=== PATIENT | male | born 1960 | race Caucasian/White ===

== ENCOUNTER 2017-12-22 11:28 | Outpatient (RCR) | payer SELFPAY | END 2017-12-23 23:59 | disposition home or self-care (01) | LOC: CR 11:28 | PROVIDERS: PCP Internal Medicine; Visit Provider Family Medicine | DX: Z51.89 Encounter for other specified aftercare (principal) ==

== ENCOUNTER 2018-01-12 13:26 | Outpatient (RCR) | payer SELFPAY | END 2018-01-22 23:59 | disposition home or self-care (01) | LOC: CR 13:26 | PROVIDERS: PCP Internal Medicine; Visit Provider Family Medicine | DX: Z95.1 Presence of aortocoronary bypass graft (principal); Z51.89 Encounter for other specified aftercare ==

== ENCOUNTER 2018-02-14 09:00 | Outpatient (RCR) | payer SELFPAY | END 2018-02-22 23:59 | disposition home or self-care (01) | LOC: CR 09:00 | PROVIDERS: PCP Internal Medicine; Visit Provider Family Medicine | DX: Z51.89 Encounter for other specified aftercare (principal) ==

== ENCOUNTER 2018-02-23 05:11 | Outpatient (RCR) | payer SELFPAY | END 2018-03-24 23:59 | disposition home or self-care (01) | LOC: CR 05:11 | PROVIDERS: PCP Internal Medicine; Visit Provider Family Medicine | DX: Z51.89 Encounter for other specified aftercare (principal) ==

== ENCOUNTER 2018-03-02 10:02 | Outpatient (CLI) | payer BC, SELFPAY ==
[2018-03-02 12:52] LABS: Abs Immature Grans 0.03 k/cumm (0.0-0.09); Absolute Basophil Count 0.05 k/cumm (0.0-0.2); Absolute Eosinophil Count 0.31 k/cumm (0.0-0.7); Absolute Lymphocyte Count 4.26 k/cumm (1.2-3.4); Absolute Monocyte Count 0.75 k/cumm (0.11-0.7); Absolute Neutrophil Count 4.96 k/cumm (1.2-6.7); Basophils % 0.5; HCT 42.7 % (40.0-50.0); HGB 14.1 g/dL (13.5-17.5); Immature Grans % 0.3; Lymphocytes % 41.1; Mean Corpuscular Volume 90.9 fL (80-95); Mean Platelet Volume 11.7 fL (8.0-11.0); Monocytes % 7.2; Neutrophils % 47.9; Platelet Count 193 x1000/uL (130-400); RBC Distribution Width 14.2 % (11.8-14.1); White Blood Cell Count 10.36 k/cumm (4.4-10.8)
[2018-03-02 13:15] LABS: Hemoglobin A1C 9.5 % (4.5-6.2)
[2018-03-02 13:25] LABS: ALT 72 U/L (12-78); AST 30 U/L (15-37); Albumin 3.8 g/dL (3.4-5.0); Alkaline Phosphatase 77 U/L (46-116); Anion Gap 12.7 mmol/L (3-11); BUN 18 mg/dL (7-18); Bilirubin, Total 0.3 mg/dL (0.2-1.0); CO2 26.3 mmol/L (21.0-32.0); CREATININE 0.93 mg/dL (0.70-1.30); Calcium 9.1 mg/dL (8.5-10.1); Chloride 98 mmol/L (98-107); Cholesterol 299 mg/dL (50-200); Glucose 269 mg/dL (70-100); HDL Cholesterol 27 mg/dL (40-60); LDL CHOLESTEROL 126 mg/dL (<100); Potassium 4.1 mmol/L (3.5-5.1); Sodium 137 mmol/L (136-145); Total Protein 7.2 g/dL (6.4-8.2); Triglyceride 977 mg/dL (30-150)
== END 2018-03-02 10:22 ==
PROVIDERS: PCP Internal Medicine; Visit Provider Internal Medicine
DX: D64.9 Anemia, unspecified (principal); E11.9 Type 2 diabetes mellitus without complications; E78.00 Pure hypercholesterolemia, unspecified; I10 Essential (primary) hypertension
CPT/HCPCS: 36415; 80053; 80061; 83721; 85027; 83036; 84439; 84443; 85025

== ENCOUNTER 2018-03-02 14:11 | Emergency (ER) | payer BC, SELFPAY ==
[2018-03-02 14:18] VITALS: BP 167/84; PULSE 85; RESP 16; TEMP 36.6; O2SAT 98
--- NOTE | 2018-03-02 14:57 | ED.GENADUL_ITS ---
Discharge Plan Disposition Patient Disposition: HOME Condition: Good Discharge Details Chief Complaint: Nk/Back Pain Clinical Impression: Trochanteric bursitis, Sciatic neuritis Primary Care Provider: Danielle Butterfield ED Provider: Lupillo Ryan [place] Meds and New Rx's Prescriptions: New tramadol 50 mg tablet 50 mg PO .qhs Qty: 4 RF: 0 cyclobenzaprine 10 mg tablet 10 mg PO TID PRN (Reason: muscle spasm) Qty: 9 RF: 0 prednisone 20 mg tablet 40 mg PO DAILY Qty: 14 RF: 0 No Action cholecalciferol (vitamin D3) 50,000 UNIT capsule 50,000 unit PO weekly once Qty: 8 RF: 0 Nicotine [Nicoderm Cq] 1 EACH PATCH.TD24 1 ea Transdermal DAILY Qty: 14 RF: 2 cholecalciferol (vitamin D3) 50,000 UNIT capsule 50,000 unit PO weekly Qty: 6 RF: 0 atorvastatin [Lipitor] 80 mg tablet 80 mg PO QPM Qty: 90 RF: 3 cyanocobalamin (vitamin B-12) [Vitamin B-12] 1,000 mcg tablet 1,000 mcg PO DAILY Qty: 90 RF: 0 doxepin 25 mg capsule 25 mg PO HS Qty: 30 RF: 0 empagliflozin [Jardiance] 25 mg tablet 25 mg PO DAILY Qty: 60 RF: 5 furosemide 20 mg tablet 20 mg PO DAILY Qty: 90 RF: 3 glipizide [Glucotrol XL] 10 mg tablet extended release 24hr 10 mg PO DAILY Qty: 180 RF: 0 insulin asp prt-insulin aspart [Novolog Mix 70-30 U-100 Insuln] 100 unit/mL ( 70-30) solution 25 unit subcut DAILY MDD 10-15 Qty: 1 RF: 8 lisinopril 20 mg tablet 20 mg PO DAILY Qty: 90 RF: 0 lorazepam 0.5 mg tablet 0.5 mg PO ONCE Qty: 30 RF: 0 metformin 500 mg tablet 500 mg PO BID Qty: 300 RF: 2 metoprolol tartrate 100 mg tablet 50 mg PO BID Qty: 120 RF: 4 omeprazole 40 mg capsule,delayed release(DR/EC) 40 mg PO DAILY Qty: 120 RF: 3 ondansetron 4 mg tablet,disintegrating 8 mg PO BID Qty: 10 RF: 1 sertraline 50 mg tablet 50 mg PO DAILY Qty: 180 RF: 0 tamsulosin 0.4 mg capsule 0.4 mg PO DAILY Qty: 90 RF: 3 tramadol 50 mg tablet 50 mg PO BID Qty: 60 RF: 2 blood-glucose meter kit .ROUTE .MEDSUPPLY Qty: 1 RF: 0 lancets [Fingerstix Lancets] misc .ROUTE .MEDSUPPLY Qty: 100 RF: 1 blood sugar diagnostic [Blood Glucose Test] strip .ROUTE .MEDSUPPLY Qty: 100 RF: 1 acetaminophen [Mapap Extra Strength] 500 MG tablet 1,000 mg PO .Q6HRS PRNRF: 0 aspirin [Aspirin Low-Strength] 81 MG tablet,chewable 81 mg PO DAILY RF: 0 Discharge Instructions Instructions: Hip Bursitis (ED), Sciatica (ED) Referrals: Danielle Butterfield MD [Primary Care Provider] - Jerrell Lyn MD [ [facility] STAFF PHYSICIAN] - Discharge Data Discharge Date/Time-TO BE ENTERED AT DEPARTURE: 03/02/18 15:06 Medical Decision Making Exam and symptoms consistent with bursitis and sciatica. Will provide tramadol for night time use, Flexeril and steroids. Advised to keep already scheduled f/ u appointment with pcp. Recommended f/u with orthopedic and/or PT. Advised to return to ED if symptoms worsen. He thought he had x-rays and was told he had mild arthritis but I do not see them in our system. May consider x-ray of hips. HPI General Date/Time Provider Initiated Documentation: 03/02/18 14:14 . History of Present Illness 57 year old M presents to the emergency department with the chief complaint of bursitis/sciatica , HPI Narrative: 57 y/o male here with c/o bilateral hip pain for the last year or so. Denies any injury. Has tried gabapentin and Lyrica for his diabetic neuropathy without much benefit for this pain. He has f/u appointment with PCP on Tuesday. He tells me the pain is getting unbearable and keeping him up at night. Denies any back pain, injury, [place], SOB, or abdominal pain. Related Data Home Medications Medication Instructions Recorded Confirmed acetaminophen [Mapap Extra 1,000 mg PO .Q6HRS PRN 07/26/16 03/02/18 Strength] aspirin [Aspirin Low-Strength] 81 mg PO DAILY 07/26/16 03/02/18 cholecalciferol (vitamin D3) 50,000 unit PO weekly once #8 cap 07/13/17 03/02/18 cholecalciferol (vitamin D3) 50,000 unit PO weekly #6 cap 11/13/17 03/02/18 atorvastatin 80 mg tablet 80 mg PO QPM #90 tab 01/16/18 03/02/18 cyanocobalamin (vit B-12) 1,000 1,000 mcg PO DAILY #90 tab-cap 01/16/18 03/02/18 mcg tablet doxepin 25 mg capsule 25 mg PO HS #30 tab-cap 01/16/18 03/02/18 empagliflozin 25 mg tablet 25 mg PO DAILY #60 cap 01/16/18 03/02/18 furosemide 20 mg tablet 20 mg PO DAILY #90 tab 01/16/18 03/02/18 glipizide ER 10 mg tablet, 10 mg PO DAILY #180 tab-cap 01/16/18 03/02/18 extended release 24 hr insulin aspar prt-insulin aspart 25 unit SUBCUT DAILY #1 vial MDD 01/16/1803/02 100 unit/mL (70-30) subcutaneous 10-15 soln lisinopril 20 mg tablet 20 mg PO DAILY #90 cap 01/16/18 03/02/18 lorazepam 0.5 mg tablet 0.5 mg PO ONCE #30 tab 01/16/18 03/02/18 metformin 500 mg tablet 500 mg PO BID #300 tab 01/16/18 03/02/18 metoprolol tartrate 100 mg tablet 50 mg PO BID #120 cap 01/16/18 03/02/18 omeprazole 40 mg capsule,delayed 40 mg PO DAILY #120 cap 01/16/18 03/02/18 release ondansetron 4 mg disintegrating 8 mg PO BID #10 tab-cap 01/16/18 03/02/18 tablet sertraline 50 mg tablet 50 mg PO DAILY #180 tab 01/16/18 03/02/18 tamsulosin 0.4 mg capsule 0.4 mg PO DAILY #90 capcr 01/16/18 03/02/18 tramadol 50 mg tablet 50 mg PO BID #60 tab 09/24/18 11/08/18 blood sugar diagnostic strips #100 each 02/06/18 blood-glucose meter kit #1 each 02/06/18 lancets #100 each 02/06/18 cyclobenzaprine 10 mg PO TID PRN #9 tab 03/02/18 prednisone 40 mg PO DAILY #14 tab 03/02/18 tramadol 50 mg PO .qhs #4 tab 03/02/18 Previous Rx's Medication Instructions Recorded cholecalciferol (vitamin D3) 50,000 unit PO weekly once #8 cap 07/13/17 cholecalciferol (vitamin D3) 50,000 unit PO weekly #6 cap 11/13/17 atorvastatin 80 mg tablet 80 mg PO QPM #90 tab 01/16/18 cyanocobalamin (vit B-12) 1,000 1,000 mcg PO DAILY #90 tab-cap 01/16/18 mcg tablet doxepin 25 mg capsule 25 mg PO HS #30 tab-cap 01/16/18 empagliflozin 25 mg tablet 25 mg PO DAILY #60 cap 01/16/18 furosemide 20 mg tablet 20 mg PO DAILY #90 tab 01/16/18 glipizide ER 10 mg tablet, 10 mg PO DAILY #180 tab-cap 01/16/18 extended release 24 hr insulin aspar prt-insulin aspart 25 unit SUBCUT DAILY #1 vial MDD 01/16/18 100 unit/mL (70-30) subcutaneous 10-15 soln lisinopril 20 mg tablet 20 mg PO DAILY #90 cap 01/16/18 lorazepam 0.5 mg tablet 0.5 mg PO ONCE #30 tab 01/16/18 metformin 500 mg tablet 500 mg PO BID #300 tab 01/16/18 metoprolol tartrate 100 mg tablet 50 mg PO BID #120 cap 01/16/18 omeprazole 40 mg capsule,delayed 40 mg PO DAILY #120 cap 01/16/18 release ondansetron 4 mg disintegrating 8 mg PO BID #10 tab-cap 01/16/18 tablet sertraline 50 mg tablet 50 mg PO DAILY #180 tab 01/16/18 tamsulosin 0.4 mg capsule 0.4 mg PO DAILY #90 capcr 01/16/18 tramadol 50 mg tablet 50 mg PO BID #60 tab 01/16/18 blood sugar diagnostic strips #100 each 02/06/18 blood-glucose meter kit #1 each 02/06/18 lancets #100 each 02/06/18 cyclobenzaprine 10 mg PO TID PRN #9 tab 03/02/18 prednisone 40 mg PO DAILY #14 tab 03/02/18 tramadol 50 mg PO .qhs #4 tab 03/02/18 Allergies Allergy/AdvReac Type Severity Reaction Status Date / Time venlafaxine HCl AdvReac Intermediate Increased Unverified 03/02/18 14:22 [From Effexor] Blood Pressure General Stated Complaint: Nk/Back Pain BEN: 3 Review of Systems Cardiovascular Reports system reviewed and no additional complaints, except as docu Respiratory Reports system reviewed and no additional complaints, except as docu Gastrointestinal Reports system reviewed and no additional complaints, except as docu Musculoskeletal Reports arthralgias (bilateral hip pain) and Reports radiating pain into limb ( to the right leg. ) PFSH Medical History ASCVD (arteriosclerotic cardiovascular disease) BPH (benign prostatic hyperplasia) Bipolar 1 disorder, mixed COPD (chronic obstructive pulmonary disease) DM type 2 (diabetes mellitus, type 2) Depression Diverticulosis GERD (gastroesophageal reflux disease) Generalized osteoarthritis History of diverticulitis Kidney stones MELONIE and COPD overlap syndrome PVD (peripheral vascular disease) Tobacco abuse Social History Smoking/Tobacco Use Status: Current every day alcohol intake: current alcohol intake frequency: holidays/special occasions only substance use type: does not use Surgical History Arthroscopy, Shoulder Colectomy Colonoscopy - MAC Coronary Artery Bypass Gaft (CABG) Exam Const General: cooperative, healthy appearing, uncomfortable and no acute distress Nutritional Appearance: average body habitus Orientation: alert, awake and oriented x3 Back/Spine/Pelvis Back: no CVA tenderness Cervical Spine: normal cervical lordosis and cervical ROM normal Thoracic/Lumbar Spine: thoracic and lumbar spine normal to inspection and thoraco-lumbar ROM normal Pelvis: pain with anterior-posterior compression, no pain with lateral compression and sciatic notch tenderness on the right Sacroiliac joints: on the right Skin General skin exam: no rashes or lesions noted Neuro General: alert, awake, oriented x3 and gait normal Extrem General: normal to inspection and full ROM Psych Appearance: grossly normal Mood: congruent mood Affect: normal affect Attitude: cooperative Course Vital Signs Temperature 36.6 C 03/02/18 14:18 Pulse 85 03/02/18 14:18 Respiratory Rate 16 03/02/18 14:18 Blood Pressure 167/84 H 03/02/18 14:18 Pulse Oximetry 98 03/02/18 14:18 Temperature 36.6 C 03/02/18 14:18 Temperature Source Skin 03/02/18 14:18 Pulse 85 03/02/18 14:18 Respiratory Rate 16 03/02/18 14:18 Respiratory Effort Non-Labored 03/02/18 14:18 Blood Pressure 167/84 H 03/02/18 14:18 Blood Pressure Position Sitting 03/02/18 14:18 Pulse Oximetry 98 03/02/18 14:18 Oxygen Delivery Method Room Air 03/02/18 14:18 Oxygen Flow Rate 0 03/02/18 14:18 Pain Level 8 03/02/18 14:18
== END 2018-03-02 15:06 | disposition home or self-care (01) ==
LOC: ER 14:56
PROVIDERS: Emergency Provider Nurse Practitioner Family; PCP Internal Medicine
DX: M70.61 Trochanteric bursitis, right hip (principal); M70.62 Trochanteric bursitis, left hip; M54.31 Sciatica, right side; J44.9 Chronic obstructive pulmonary disease, unspecified; E11.40 Type 2 diabetes mellitus with diabetic neuropathy, unspecified; Z79.4 Long term (current) use of insulin; F17.210 Nicotine dependence, cigarettes, uncomplicated
CPT/HCPCS: 99283

== ENCOUNTER 2018-03-08 10:57 | Outpatient (CLI) | payer BC, SELFPAY ==
--- NOTE | 2018-03-08 09:53 | DI.RAD_ITS ---
SYMPTOMS/DIAGNOSIS: RIGHT HIP PAIN, M25.551, NO TRAUMA BILATERAL HIPS AND PELVIS: Five views were obtained. There are mild degenerative changes of the SI joints bilaterally. Cartilaginous joint spaces of the hips appear fairly well maintained. There is moderate hypertrophic spurring of the acetabula bilaterally. Mild spurring also noted associated with the greater trochanters to the femurs bilaterally. CONCLUSION: Mild DJD, both hips.
== END 2018-03-08 11:17 ==
PROVIDERS: PCP Internal Medicine; Visit Provider Internal Medicine
DX: M25.551 Pain in right hip (principal); M16.0 Bilateral primary osteoarthritis of hip
CPT/HCPCS: 73521

== ENCOUNTER 2018-04-11 14:55 | Emergency (ER) | payer BC, SELFPAY ==
[2018-04-11 15:07] VITALS: BP 166/96; PULSE 80; RESP 18; TEMP 36.7; O2SAT 97
--- NOTE | 2018-04-11 16:31 | ED.GENADUL_ITS ---
Discharge Plan Disposition Patient Disposition: HOME Condition: Stable Discharge Details Chief Complaint: Orthopedic Clinical Impression: Trochanteric bursitis of left hip Primary Care Provider: Danielle Butterfield ED Provider: Oracio Hernandez Home Meds and New Rx's Prescriptions: New prednisone 20 mg tablet 40 mg PO DAILY 4 Days Qty: 8 RF: 0 Continued levothyroxine [Synthroid] 50 mcg tablet 50 mcg PO DAILY Qty: 60 RF: 2 nicotine [Nicoderm CQ] 21 mg/24 hr patch 24 hour 1 patch TD DAILY Qty: 30 RF: 1 doxepin 25 mg capsule 25 mg PO HS Qty: 30 RF: 0 lorazepam 0.5 mg tablet 0.5 mg PO ONCE Qty: 30 RF: 0 sertraline 50 mg tablet 50 mg PO DAILY Qty: 180 RF: 0 cholecalciferol (vitamin D3) 50,000 UNIT capsule 50,000 unit PO weekly once Qty: 8 RF: 0 cholecalciferol (vitamin D3) 50,000 UNIT capsule 50,000 unit PO weekly Qty: 6 RF: 0 atorvastatin [Lipitor] 80 mg tablet 80 mg PO QPM Qty: 90 RF: 3 cyanocobalamin (vitamin B-12) [Vitamin B-12] 1,000 mcg tablet 1,000 mcg PO DAILY Qty: 90 RF: 0 empagliflozin [Jardiance] 25 mg tablet 25 mg PO DAILY Qty: 60 RF: 5 furosemide 20 mg tablet 20 mg PO DAILY Qty: 90 RF: 3 glipizide [Glucotrol XL] 10 mg tablet extended release 24hr 10 mg PO DAILY Qty: 180 RF: 0 insulin asp prt-insulin aspart [Novolog Mix 70-30 U-100 Insuln] 100 unit/mL (7 0-30) solution 25 unit subcut DAILY MDD 10-15 Qty: 1 RF: 8 lisinopril 20 mg tablet 20 mg PO DAILY Qty: 90 RF: 0 metformin 500 mg tablet 500 mg PO BID Qty: 300 RF: 2 metoprolol tartrate 100 mg tablet 50 mg PO BID Qty: 120 RF: 4 omeprazole 40 mg capsule,delayed release(DR/EC) 40 mg PO DAILY Qty: 120 RF: 3 ondansetron 4 mg tablet,disintegrating 8 mg PO BID Qty: 10 RF: 1 tamsulosin 0.4 mg capsule 0.4 mg PO DAILY Qty: 90 RF: 3 blood-glucose meter kit .ROUTE .MEDSUPPLY Qty: 1 RF: 0 lancets [Fingerstix Lancets] misc .ROUTE .MEDSUPPLY Qty: 100 RF: 1 blood sugar diagnostic [Blood Glucose Test] strip .ROUTE .MEDSUPPLY Qty: 100 RF: 1 acetaminophen [Mapap Extra Strength] 500 MG tablet 1,000 mg PO .Q6HRS PRNRF: 0 aspirin [Aspirin Low-Strength] 81 MG tablet,chewable 81 mg PO DAILY RF: 0 tramadol 50 mg tablet 50 mg PO .qhs Qty: 4 RF: 0 Discontinued tramadol 50 mg tablet 50 mg PO BID Qty: 60 RF: 2 cyclobenzaprine 10 mg tablet 10 mg PO TID PRN (Reason: muscle spasm) Qty: 9 RF: 0 prednisone 20 mg tablet 40 mg PO DAILY Qty: 14 RF: 0 Discharge Instructions Instructions: Hip Bursitis (ED) Additional Instructions: Return to the emergency department for any new or worsening symptoms. The symptoms may include worsening pain, discoloration of the lower extremity, fever chills, or any further concern. Otherwise take medication as prescribed and follow-up with ortho for reassessment. It is recommended that you take [id number] ibuprofen 600 mg along with acetaminophen/Tylenol 1000 mg every 6 hours as needed for discomfort. Also while on steroid please watch her blood sugar carefully and use your sliding scale insulin as directed. Referrals: Jerrell Lyn MD [ [facility] STAFF PHYSICIAN] - (when available for reasessment) Medical Decision Making Patient presenting to the emergency department chief complaint of left hip pain. Patient states history of hip pain and recently saw orthopedist for severe right hip pain and was given joint injection which he states has significantly decreased his symptoms. Patient states over the past couple days he has noticed his left hip becoming increasingly more painful and is wondering if this is more due to the right hip now feeling better. Patient denies any injury or trauma, fall, fever chills, deformity, or inability to weight-bear. Physical exam shows some tenderness to the greater trochanter and the posterior lateral aspect of the hip and some discomfort with internal rotation of the hip but otherwise unremarkable exam, negative straight leg raise, no lumbar tenderness to the back. With review of previous records showing history of bursitis in the right side and patient complaining of exact same feeling I feel that this is more likely a similar presentation. I do not feel at this time there would be any benefit to new radiological imaging of the hip as patient just had these done previously in emergency department with no fall injury or trauma stated. Patient does state upon previous visit to the emergency department that steroids did help. Patient was also at that time prescribed a limited supply of tramadol to help with sleep and so this prescription was refilled as I feel that patient is at low risk for narcotic abuse and patient only given 4 tablets. Patient encouraged to follow-up with orthopedist for reassessment and to closely monitor his blood sugar while on steroid burst. Patient encouraged to return for any new or significant worsening of symptoms. After discussion of diagnosis and plan of care patient has no further needs, questions, or concerns and states clear understanding to return to the emergency department for any worsening symptoms. HPI General Mode of arrival: ambulatory . Date/Time Provider Initiated Documentation: 04/11/18 15:34 . Limitations to Documentation: no limitations . Information obtained by: patient, family, RN notes reviewed and old records reviewed . History of Present Illness 57 year old M presents to the emergency department with the chief complaint of left hip pain, described as moderate and similar to prior episodes, Patient started experiencing this day(s) (5) and it has been constant. No relieving factors improve symptom(s), No exacerbating factors reported . Patient notes no other symptoms.. Patient did receive the following treatments prior to arrival, NSAID, cold therapy and heat therapy Related Data Home Medications Medication Instructions Recorded Confirmed acetaminophen [Mapap Extra 1,000 mg PO .Q6HRS PRN 07/26/16 03/22/18 Strength] aspirin [Aspirin Low-Strength] 81 mg PO DAILY 07/26/16 03/22/18 cholecalciferol (vitamin D3) 50,000 unit PO weekly once #8 cap 07/13/17 03/22/18 cholecalciferol (vitamin D3) 50,000 unit PO weekly #6 cap 11/13/17 03/22/18 atorvastatin 80 mg tablet 80 mg PO QPM #90 tab 01/16/18 03/22/18 cyanocobalamin (vit B-12) 1,000 1,000 mcg PO DAILY #90 tab-cap 01/16/18 03/22/18 mcg tablet empagliflozin 25 mg tablet 25 mg PO DAILY #60 cap 01/16/18 03/22/18 furosemide 20 mg tablet 20 mg PO DAILY #90 tab 01/16/18 03/22/18 glipizide ER 10 mg tablet, 10 mg PO DAILY #180 tab-cap 01/16/18 03/22/18 extended release 24 hr insulin aspar prt-insulin aspart 25 unit SUBCUT DAILY #1 vial MDD 01/16/18 03/22/18 100 unit/mL (70-30) subcutaneous 10 soln lisinopril 20 mg tablet 20 mg PO DAILY #90 cap 01/16/18 03/22/18 metformin 500 mg tablet 500 mg PO BID #300 tab 01/16/18 03/22/18 metoprolol tartrate 100 mg tablet 50 mg PO BID #120 cap 01/16/18 03/22/18 omeprazole 40 mg capsule,delayed 40 mg PO DAILY #120 cap 01/16/18 03/22/18 release ondansetron 4 mg disintegrating 8 mg PO BID #10 tab-cap 01/16/18 03/22/18 tablet tamsulosin 0.4 mg capsule 0.4 mg PO DAILY #90 capcr 01/16/18 03/22/18 blood sugar diagnostic strips #100 each 02/06/18 03/22/18 blood-glucose meter kit #1 each 02/06/18 03/22/18 lancets #100 each 02/06/18 03/22/18 levothyroxine 50 mcg tablet 50 mcg PO DAILY #60 tab 03/06/18 03/22/18 nicotine 21 mg/24 hr daily 1 patch TD DAILY #30 each 03/06/18 03/22/18 transdermal patch doxepin 25 mg capsule 25 mg PO HS #30 tab-cap 03/07/18 03/22/18 lorazepam 0.5 mg tablet 0.5 mg PO ONCE #30 tab 03/07/18 03/22/18 sertraline 50 mg tablet 50 mg PO DAILY #180 tab 03/07/18 03/22/18 prednisone 40 mg PO DAILY 4 Days #8 tab 04/11/18 tramadol 50 mg PO .qhs #4 tab 04/11/18 Previous Rx's Medication Instructions Recorded cholecalciferol (vitamin D3) 50,000 unit PO weekly once #8 cap 07/13/17 cholecalciferol (vitamin D3) 50,000 unit PO weekly #6 cap 11/13/17 atorvastatin 80 mg tablet 80 mg PO QPM #90 tab 01/16/18 cyanocobalamin (vit B-12) 1,000 1,000 mcg PO DAILY #90 tab-cap 01/16/18 mcg tablet empagliflozin 25 mg tablet 25 mg PO DAILY #60 cap 01/16/18 furosemide 20 mg tablet 20 mg PO DAILY #90 tab 01/16/18 glipizide ER 10 mg tablet, 10 mg PO DAILY #180 tab-cap 01/16/18 extended release 24 hr insulin aspar prt-insulin aspart 25 unit SUBCUT DAILY #1 vial MDD 01/16/18 100 unit/mL (70-30) subcutaneous 10 soln lisinopril 20 mg tablet 20 mg PO DAILY #90 cap 01/16/18 metformin 500 mg tablet 500 mg PO BID #300 tab 01/16/18 metoprolol tartrate 100 mg tablet 50 mg PO BID #120 cap 01/16/18 omeprazole 40 mg capsule,delayed 40 mg PO DAILY #120 cap 01/16/18 release ondansetron 4 mg disintegrating 8 mg PO BID #10 tab-cap 01/16/18 tablet tamsulosin 0.4 mg capsule 0.4 mg PO DAILY #90 capcr 01/16/18 blood sugar diagnostic strips #100 each 02/06/18 blood-glucose meter kit #1 each 02/06/18 lancets #100 each 02/06/18 levothyroxine 50 mcg tablet 50 mcg PO DAILY #60 tab 03/06/18 nicotine 21 mg/24 hr daily 1 patch TD DAILY #30 each 03/06/18 transdermal patch doxepin 25 mg capsule 25 mg PO HS #30 tab-cap 03/07/18 lorazepam 0.5 mg tablet 0.5 mg PO ONCE #30 tab 03/07/18 sertraline 50 mg tablet 50 mg PO DAILY #180 tab 03/07/18 prednisone 40 mg PO DAILY 4 Days #8 tab 04/11/18 tramadol 50 mg PO .qhs #4 tab 04/11/18 Allergies Allergy/AdvReac Type Severity Reaction Status Date / Time venlafaxine HCl AdvReac Intermediate Increased Unverified 04/11/18 15:13 [From Effexor] Blood Pressure General Stated Complaint: Orthopedic BEN: 4 Review of Systems Constitutional Denies chills, Denies fever(s) and Denies frequent falls Musculoskeletal Reports as per HPI, Reports arthralgias, Denies joint swelling, Reports numbness and Reports tingling Neurologic Denies frequent falls, Reports numbness and Reports tingling [facility] Medical History ASCVD (arteriosclerotic cardiovascular disease) BPH (benign prostatic hyperplasia) Bipolar 1 disorder, mixed COPD (chronic obstructive pulmonary disease) DM type 2 (diabetes mellitus, type 2) Depression Diverticulosis GERD (gastroesophageal reflux disease) Generalized osteoarthritis History of diverticulitis Kidney stones MELONIE and COPD overlap syndrome PVD (peripheral vascular disease) Tobacco abuse Surgical History Arthroscopy, Shoulder Colectomy Colonoscopy - MAC Coronary Artery Bypass Gaft (CABG) Family History Mother No problems noted. Father Heart disease Sister Depression Brother No problems noted. Brother Diabetes Heart disease Brother No problems noted. Maternal Grandmother Heart disease Stroke Social History current occupational status: disabled pets and animals: Yes pets and animals: dog(s) frequency: decline to answer duration: decline to answer Smoking/Tobacco Use Status: Current every day tobacco type: cigarettes second hand exposure: Yes alcohol intake: current alcohol intake frequency: 0-2 drinks per day Alcohol type: beer substance use type: marijuana alex/jew: [employer] special alex needs: No Exam Const General: cooperative, healthy appearing and no acute distress Orientation: alert, awake and oriented x3 Resp Effort & Inspection: normal respiratory effort and able to speak in complete sentences Cardio Rate: regular rate Rhythm: regular rhythm Extrem Left lower extremity: hip/thigh Details: tenderness Location: of the hip Location: posterolaterally and over the great trochanter and abnormal ROM Details: pain with passive ROM Details: with internal rotation; no swelling, no ecchymosis, no crepitus and no deformity, knee Details: normal to inspection, lower leg Details: normal to inspection and ankle Details: normal to inspection Course Vital Signs Temperature 36.7 C 04/11/18 15:07 Pulse 80 04/11/18 15:07 Respiratory Rate 18 04/11/18 15:07 Blood Pressure 166/96 H 04/11/18 15:07 Pulse Oximetry 97 04/11/18 15:07 Temperature 36.7 C 04/11/18 15:07 Temperature Source Skin 04/11/18 15:07 Pulse 80 04/11/18 15:07 Respiratory Rate 18 04/11/18 15:07 Respiratory Effort 04/11/18 15:11 Blood Pressure 166/96 H 04/11/18 15:07 Blood Pressure Position Sitting 04/11/18 15:07 Pulse Oximetry 97 04/11/18 15:07 Oxygen Delivery Method Room Air 04/11/18 15:07 Oxygen Flow Rate 0 04/11/18 15:07 Pain Level 6 04/11/18 15:07 Comment 04/11/18 15:07
[2018-04-11 16:44] VITALS: BP 166/96; PULSE 80; RESP 18; TEMP 36.7; O2SAT 97
== END 2018-04-11 16:46 | disposition home or self-care (01) ==
PROVIDERS: Emergency Provider Nurse Practitioner Family; PCP Internal Medicine
DX: M70.62 Trochanteric bursitis, left hip (principal); J44.9 Chronic obstructive pulmonary disease, unspecified; E11.9 Type 2 diabetes mellitus without complications; Z79.4 Long term (current) use of insulin; F17.210 Nicotine dependence, cigarettes, uncomplicated
CPT/HCPCS: 99283

== ENCOUNTER 2018-05-05 00:53 | Outpatient (CLI) | payer BC, SELFPAY ==
[2018-05-05 11:58] LABS: ALT 41 U/L (12-78); AST 11 U/L (15-37); Albumin 3.9 g/dL (3.4-5.0); Alkaline Phosphatase 67 U/L (46-116); Anion Gap 10.8 mmol/L (3-11); BUN 26 mg/dL (7-18); Bilirubin, Total 0.3 mg/dL (0.2-1.0); CO2 28.2 mmol/L (21.0-32.0); CREATININE 0.92 mg/dL (0.70-1.30); Calcium 9.5 mg/dL (8.5-10.1); Chloride 101 mmol/L (98-107); Cholesterol 284 mg/dL (50-200); Glucose 150 mg/dL (70-100); HDL Cholesterol 31 mg/dL (40-60); LDL CHOLESTEROL 188 mg/dL (<100); Potassium 4.1 mmol/L (3.5-5.1); Sodium 140 mmol/L (136-145); TSH (W/Ref FT4) 3.07 uIU/mL (0.358-3.74); Total Protein 7.4 g/dL (6.4-8.2); Triglyceride 447 mg/dL (30-150)
== END 2018-05-05 01:13 ==
PROVIDERS: PCP Internal Medicine; Visit Provider Internal Medicine
DX: E78.00 Pure hypercholesterolemia, unspecified (principal); I21.4 Non-ST elevation (NSTEMI) myocardial infarction; E03.9 Hypothyroidism, unspecified; E11.9 Type 2 diabetes mellitus without complications
CPT/HCPCS: 36415; 80053; 80061; 83721; 83036; 84443

== ENCOUNTER 2018-08-16 16:38 | Emergency (ER) | payer MEDICARE, SELFPAY ==
[2018-08-16 16:41] VITALS: BP 156/89; PULSE 120; RESP 18; TEMP 36.7; O2SAT 96
[2018-08-16 16:54] VITALS: RESP 18
--- NOTE | 2018-08-16 17:08 | ED.GENADUL_ITS ---
Discharge Plan Disposition Patient Disposition: HOME Condition: Stable Discharge Details Chief Complaint: Vascular Clinical Impression: Diabetic neuropathy associated with type 2 diabetes mellitus Primary Care Provider: Danielle Butterfield ED Provider: Lupillo Maloney [place] Meds and New Rx's Prescriptions: No Action atorvastatin [Lipitor] 80 mg tablet 80 mg PO QPM Qty: 90 RF: 3 cholecalciferol (vitamin D3) 50,000 unit capsule 50,000 unit PO weekly Qty: 6 RF: 0 cyanocobalamin (vitamin B-12) [Vitamin B-12] 1,000 mcg tablet 1,000 mcg PO DAILY Qty: 90 RF: 0 furosemide 20 mg tablet 20 mg PO DAILY Qty: 90 RF: 3 glipizide [Glucotrol XL] 10 mg tablet extended release 24hr 10 mg PO DAILY Qty: 180 RF: 0 lancets [Fingerstix Lancets] misc .ROUTE .MEDSUPPLY Qty: 100 RF: 1 lisinopril 20 mg tablet 20 mg PO DAILY Qty: 90 RF: 0 lorazepam 0.5 mg tablet 0.5 mg PO ONCE Qty: 30 RF: 0 omeprazole 40 mg capsule,delayed release(DR/EC) 40 mg PO DAILY Qty: 120 RF: 3 sertraline 50 mg tablet 50 mg PO DAILY Qty: 180 RF: 0 Narcan 4 mg/actuation spray,non-aerosol 1 spray NERY Q2-3M PRN (Reason: opioid overdose) Qty: 2 RF: 0 ondansetron 4 mg tablet,disintegrating 8 mg PO BID PRN (Reason: nausia) Qty: 20 RF: 0 Jardiance 25 mg tablet 25 mg PO DAILY Qty: 60 RF: 11 gabapentin 400 mg capsule 400 mg PO BID Qty: 60 RF: 11 levothyroxine [Synthroid] 50 mcg tablet 50 mcg PO DAILY Qty: 60 RF: 11 clindamycin HCl 150 mg capsule 150 mg PO TID Qty: 21 RF: 0 blood-glucose meter kit .ROUTE .MEDSUPPLY Qty: 1 RF: 0 metformin 500 mg tablet 500 mg PO BID Qty: 180 RF: 4 metoprolol succinate 50 mg tablet extended release 24 hr 50 mg PO BID Qty: 180 RF: 4 Blood Glucose Test strip .ROUTE .MEDSUPPLY Qty: 100 RF: 1 Humalog Mix 75-25(U-100)Insuln 100 unit/mL (75-25) suspension 20 unit SC BID Qty: 10 RF: 6 insulin syringes (disposable) 1 mL syringe .ROUTE .MEDSUPPLY Qty: 500 RF: 1 doxepin 25 mg capsule 25 mg PO HS Qty: 30 RF: 0 acetaminophen [Mapap Extra Strength] 500 MG tablet 1,000 mg PO .Q6HRS PRNRF: 0 aspirin [Aspirin Low-Strength] 81 MG tablet,chewable 81 mg PO DAILY RF: 0 Discharge Instructions Additional Instructions: follow up with your primary care provider and vascular surgeon if you have new symptoms such as high fevers or rashes spreading up the leg return to the emergency department for reevaluation Medical Decision Making 57 yo male who has a hx of pvd and had right femoral iliac stent placeemtn for right heel wound and right sfa cutdown and stent [place] [facility] [place], comes in with continued foot pain. Denies fevers, rashes, discharge. Is going to run out of oxycodone kenroy, spoke with his surgical team and advised him to come here. He has no swelling of the leg, intact sensatino, 2+ dp/pt pulses with full rom of the leg and all incidions he had from surgery are well healed without erythema or pain. localizes the pain to the plantar surface with pain throughout, denies any trauma, no systemic symptoms so doubt entities such as osteo and no evidence of infection or nec fasc at this time. I advised for chronic pain we can't prescribe opiates and that he needs to f/u [facility] pcp, return precautions given. Has no leg swelling or calf pain so doubt dvt at this time Differential Diagnosis chronic pain, pvd, plantar facsitis HPI General Mode of arrival: ambulatory . Date/Time Provider Initiated Documentation: 08/16/18 16:39 . Limitations to Documentation: no limitations . Information obtained by: patient . History of Present Illness 57 year old M presents to the emergency department with the chief complaint of right plantar foot pain, described as moderate, Quality is described as aching, No relieving factors improve symptom(s), No exacerbating factors reported . Patient did receive the following treatments prior to arrival, none Related Data Home Medications Medication Instructions Recorded Confirmed acetaminophen [Mapap Extra 1,000 mg PO .Q6HRS PRN 07/26/16 08/09/18 Strength] aspirin [Aspirin Low-Strength] 81 mg PO DAILY 07/26/16 08/09/18 blood-glucose meter kit #1 each 02/06/18 08/09/18 atorvastatin 80 mg tablet 80 mg PO QPM #90 tab 05/08/18 08/09/18 cholecalciferol (vitamin D3) 50,000 unit PO weekly #6 cap 05/08/18 08/09/18 50,000 unit capsule cyanocobalamin (vit B-12) 1,000 1,000 mcg PO DAILY #90 tab-cap 05/08/18 08/09/18 mcg tablet furosemide 20 mg tablet 20 mg PO DAILY #90 tab 05/08/18 08/09/18 glipizide ER 10 mg tablet, 10 mg PO DAILY #180 tab-cap 05/08/18 08/09/18 extended release 24 hr lancets #100 each 05/08/18 08/09/18 lisinopril 20 mg tablet 20 mg PO DAILY #90 cap 05/08/18 08/09/18 lorazepam 0.5 mg tablet 0.5 mg PO ONCE #30 tab 05/08/18 08/09/18 omeprazole 40 mg capsule,delayed 40 mg PO DAILY #120 cap 05/08/18 08/09/18 release sertraline 50 mg tablet 50 mg PO DAILY #180 tab 05/08/18 08/09/18 metformin 500 mg tablet 500 mg PO BID #180 tab 05/14/18 08/09/18 metoprolol succinate ER 50 mg 50 mg PO BID #180 tab 05/14/18 08/09/18 tablet,extended release 24 hr blood sugar diagnostic strips #100 each 05/29/18 08/09/18 insulin lispro protamine-lispro 20 unit SC BID #10 ml 05/29/18 08/09/18 100 unit/mL (75-25) subcutaneous susp insulin syringes (disposable) 1 mL #500 each 05/29/18 08/09/18 naloxone 4 mg/actuation nasal spray 1 spray NERY Q2-3M PRN #2 each 06/13/18 08/09/18 ondansetron 4 mg disintegrating 8 mg PO BID PRN #20 tab-cap 06/14/18 08/09/18 tablet doxepin 25 mg capsule 25 mg PO HS #30 tab-cap 08/01/18 08/09/18 clindamycin HCl 150 mg capsule 150 mg PO TID #21 cap 08/09/18 08/09/18 empagliflozin 25 mg tablet 25 mg PO DAILY #60 cap 08/09/18 08/09/18 gabapentin 400 mg capsule 400 mg PO BID #60 cap 08/09/18 08/09/18 levothyroxine 50 mcg tablet 50 mcg PO DAILY #60 tab 08/09/18 08/09/18 Previous Rx's Medication Instructions Recorded blood-glucose meter kit #1 each 02/06/18 atorvastatin 80 mg tablet 80 mg PO QPM #90 tab 05/08/18 cholecalciferol (vitamin D3) 50,000 unit PO weekly #6 cap 05/08/18 50,000 unit capsule cyanocobalamin (vit B-12) 1,000 1,000 mcg PO DAILY #90 tab-cap 05/08/18 mcg tablet furosemide 20 mg tablet 20 mg PO DAILY #90 tab 05/08/18 glipizide ER 10 mg tablet, 10 mg PO DAILY #180 tab-cap 05/08/18 extended release 24 hr lancets #100 each 05/08/18 lisinopril 20 mg tablet 20 mg PO DAILY #90 cap 05/08/18 lorazepam 0.5 mg tablet 0.5 mg PO ONCE #30 tab 05/08/18 omeprazole 40 mg capsule,delayed 40 mg PO DAILY #120 cap 05/08/18 release sertraline 50 mg tablet 50 mg PO DAILY #180 tab 05/08/18 metformin 500 mg tablet 500 mg PO BID #180 tab 05/14/18 metoprolol succinate ER 50 mg 50 mg PO BID #180 tab 05/14/18 tablet,extended release 24 hr blood sugar diagnostic strips #100 each 05/29/18 insulin lispro protamine-lispro 20 unit SC BID #10 ml 05/29/18 100 unit/mL (75-25) subcutaneous susp insulin syringes (disposable) 1 mL #500 each 05/29/18 naloxone 4 mg/actuation nasal spray 1 spray NERY Q2-3M PRN #2 each 06/13/18 ondansetron 4 mg disintegrating 8 mg PO BID PRN #20 tab-cap 06/14/18 tablet doxepin 25 mg capsule 25 mg PO HS #30 tab-cap 08/01/18 clindamycin HCl 150 mg capsule 150 mg PO TID #21 cap 08/09/18 empagliflozin 25 mg tablet 25 mg PO DAILY #60 cap 08/09/18 gabapentin 400 mg capsule 400 mg PO BID #60 cap 08/09/18 levothyroxine 50 mcg tablet 50 mcg PO DAILY #60 tab 08/09/18 Allergies Allergy/AdvReac Type Severity Reaction Status Date / Time venlafaxine HCl AdvReac Intermediate Increased Unverified 08/09/18 11:14 [From Effexor] Blood Pressure General Stated Complaint: Orthopedic BEN: 3 Review of Systems Review of Systems All systems reviewed & are unremarkable except as noted in HPI and below Constitutional Denies chills, Denies fever(s) and Denies weakness Cardiovascular Denies chest pain and Denies dyspnea Respiratory Denies cough and Denies dyspnea Gastrointestinal Denies abdominal pain, Denies nausea and Denies vomiting Musculoskeletal Denies joint swelling Integumentary/Breasts Denies rash Neurologic Denies weakness PFSH Medical History ASCVD (arteriosclerotic cardiovascular disease) BPH (benign prostatic hyperplasia) Bipolar 1 disorder, mixed COPD (chronic obstructive pulmonary disease) DM type 2 (diabetes mellitus, type 2) Depression Diverticulosis GERD (gastroesophageal reflux disease) Generalized osteoarthritis History of diverticulitis Kidney stones MELONIE and COPD overlap syndrome PVD (peripheral vascular disease) Tobacco abuse Family History Mother No problems noted. Father Heart disease Sister Depression Brother No problems noted. Brother Diabetes Heart disease Brother No problems noted. Maternal Grandmother Heart disease Stroke Social History Smoking/Tobacco Use Status: Current every day Tobacco Type: cigarettes Second Hand Exposure: Yes Alcohol Intake: current Alcohol Intake frequency: 0-2 drinks per day Alcohol type: beer Drug use: Never Substance use type: marijuana Pets and animals: Yes Pets and animals: dog(s) Duration: decline to answer Frequency: decline to answer Annita/Orthodoxy: [employer] Special annita needs: No Do you feel safe at home: Yes Do you feel safe in your relationship?: Yes Exam Const General: no acute distress Orientation: alert HENMT Head: normal to inspection Ears: external ears normal General nose exam: external nose normal Mouth: moist mucous membranes Eyes General: appearance normal, both eyes and all related structures Neck Neck: normal visual inspection Resp Effort & Inspection: normal respiratory effort and able to speak in complete sentences Cardio Rate: regular rate Skin General skin exam: no rashes or lesions noted Neuro General: alert and oriented x3 Extrem General: normal capillary refill Psych Mental Status: mental status grossly normal Course Vital Signs Temperature 36.7 C 08/16/18 16:41 Pulse 120 H 08/16/18 16:41 Respiratory Rate 18 08/16/18 16:41 Blood Pressure 156/89 H 08/16/18 16:41 Pulse Oximetry 96 08/16/18 16:41 Temperature 36.7 C 08/16/18 16:41 Temperature Source Skin 08/16/18 16:41 Pulse 120 H 08/16/18 16:41 Respiratory Rate 18 08/16/18 16:54 Respiratory Effort Non-Labored 08/16/18 16:54 Respiratory Depth Normal 08/16/18 16:54 Respiratory Pattern Normal 08/16/18 16:54 Blood Pressure 156/89 H 08/16/18 16:41 Blood Pressure Position Sitting 08/16/18 16:41 Pulse Oximetry 96 08/16/18 16:41 Oxygen Delivery Method Room Air 08/16/18 16:41 Oxygen Flow Rate 0 08/16/18 16:41 Pain Level 7 08/16/18 16:41
[2018-08-16] MEDS: oxyCODONE 5 MG TAB 15 MG PO (17:16)
== END 2018-08-16 17:20 | disposition home or self-care (01) ==
PROVIDERS: Emergency Provider Emergency Medicine; PCP Internal Medicine
DX: E11.40 Type 2 diabetes mellitus with diabetic neuropathy, unspecified (principal); M79.671 Pain in right foot; J44.9 Chronic obstructive pulmonary disease, unspecified; Z79.4 Long term (current) use of insulin; F17.210 Nicotine dependence, cigarettes, uncomplicated; E11.51 Type 2 diabetes mellitus with diabetic peripheral angiopathy without gangrene; Z95.820 Peripheral vascular angioplasty status with implants and grafts
CPT/HCPCS: 99283

== ENCOUNTER 2018-09-25 10:15 | Outpatient (CLI) | payer MEDICARE, SELFPAY ==
[2018-09-25 12:34] LABS: Abs Immature Grans 0.03 k/cumm (0.0-0.09); Absolute Basophil Count 0.03 k/cumm (0.0-0.2); Absolute Eosinophil Count 0.24 k/cumm (0.0-0.7); Absolute Lymphocyte Count 3.97 k/cumm (1.2-3.4); Absolute Monocyte Count 0.56 k/cumm (0.11-0.7); Absolute Neutrophil Count 4.41 k/cumm (1.2-6.7); Basophils % 0.3; Eosinophils % 2.6; HCT 43.6 % (40.0-50.0); HGB 14.3 g/dL (13.5-17.5); Immature Grans % 0.3; Mean Corp. HGB Concentration 32.8 g/dL (32.0-36.0); Mean Corpuscular Hemoglobin 29.4 pg (27.0-33.0); Mean Corpuscular Volume 89.7 fL (80-95); Mean Platelet Volume 12.6 fL (8.0-11.0); Monocytes % 6.1; Neutrophils % 47.7; Platelet Count 204 x1000/uL (130-400); RBC 4.86 m/cumm (4.50-6.00); RBC Distribution Width 14.1 % (11.8-14.1); White Blood Cell Count 9.24 k/cumm (4.4-10.8)
[2018-09-25 13:07] LABS: Hemoglobin A1C 10.5 % (4.5-6.2)
[2018-09-25 13:16] LABS: Vitamin B12 1155 pg/mL (193-986)
[2018-09-25 13:24] LABS: ALT 24 U/L (12-78); AST 13 U/L (15-37); Albumin 3.6 g/dL (3.4-5.0); Alkaline Phosphatase 114 U/L (46-116); Anion Gap 12.7 mmol/L (3-11); BUN 22 mg/dL (7-18); Bilirubin, Total 0.3 mg/dL (0.2-1.0); CO2 25.3 mmol/L (21.0-32.0); CREATININE 0.86 mg/dL (0.70-1.30); Calcium 9.6 mg/dL (8.5-10.1); Calculated LDL 91; Chloride 100 mmol/L (98-107); Cholesterol 168 mg/dL (50-200); Glucose 324 mg/dL (70-100); HDL Cholesterol 23 mg/dL (40-60); Potassium 4.3 mmol/L (3.5-5.1); Sodium 138 mmol/L (136-145); TSH (W/Ref FT4) 3.25 uIU/mL (0.358-3.74); Total Protein 7.2 g/dL (6.4-8.2); Triglyceride 274 mg/dL (30-150)
== END 2018-09-25 10:35 ==
PROVIDERS: PCP Internal Medicine; Visit Provider Family Medicine
DX: D64.9 Anemia, unspecified (principal); E11.9 Type 2 diabetes mellitus without complications; E78.00 Pure hypercholesterolemia, unspecified; I10 Essential (primary) hypertension; E03.9 Hypothyroidism, unspecified; E11.40 Type 2 diabetes mellitus with diabetic neuropathy, unspecified
CPT/HCPCS: 36415; 80053; 80061; 83721; 82607; 83036; 84443; 85025

== ENCOUNTER 2019-07-23 22:24 | Emergency (ER) | payer MEDICARE, SELFPAY ==
[2019-07-23 22:25] VITALS: BP 145/85; PULSE 107; RESP 20; TEMP 36.7; O2SAT 98
--- NOTE | 2019-07-23 22:26 | ED.GENADUL_ITS ---
Discharge Plan Disposition Patient Disposition: [facility] Condition: Stable Discharge Details Chief Complaint: GenMedical Clinical Impression: STEMI (ST elevation myocardial infarction) Primary Care Provider: Joel Mccarthy ED Provider: Kenton Rodriguez Home Meds and New Rx's Prescriptions: No Action (DME) lancets [Fingerstix Lancets] misc See Dose Instructions .ROUTE .MEDSUPPLY Qty: 100 RF: 1 Narcan 4 mg/actuation spray,non-aerosol 1 spray NERY Q2-3M PRN (Reason: opioid overdose) Qty: 2 RF: 0 ondansetron 4 mg tablet,disintegrating 8 mg PO BID PRN (Reason: nausia) Qty: 20 RF: 0 levothyroxine [Synthroid] 50 mcg tablet 50 mcg PO DAILY Qty: 60 RF: 11 clopidogrel 75 mg tablet 75 mg PO DAILY RF: 0 metformin 500 mg tablet 500 mg PO BID Qty: 240 RF: 3 sertraline 50 mg tablet 50 mg PO BID Qty: 60 RF: 11 (DME) blood-glucose meter kit See Dose Instructions .ROUTE .MEDSUPPLY Qty: 1 RF: 0 (DME) blood sugar diagnostic [Blood Glucose Test] strip See Dose Instructions .ROUTE .MEDSUPPLY Qty: 100 RF: 1 (DME) insulin syringes (disposable) 1 mL syringe See Dose Instructions .ROUTE .MEDSUPPLY Qty: 500 RF: 1 gabapentin 400 mg capsule 800 mg PO Q8H Qty: 180 RF: 11 glipizide [Glucotrol XL] 10 mg tablet extended release 24hr 10 mg PO DAILY Qty: 180 RF: 3 doxepin 25 mg capsule 25 mg PO HS Qty: 30 RF: 6 cyanocobalamin (vitamin B-12) [Vitamin B-12] 1,000 mcg tablet 1,000 mcg PO DAILY Qty: 90 RF: 3 atorvastatin [Lipitor] 80 mg tablet 80 mg PO QPM Qty: 90 RF: 3 furosemide 20 mg tablet 20 mg PO DAILY Qty: 90 RF: 3 lisinopril 20 mg tablet 20 mg PO DAILY Qty: 90 RF: 0 metoprolol succinate 50 mg tablet extended release 24 hr 50 mg PO BID Qty: 180 RF: 4 Jardiance 25 mg tablet 25 mg PO DAILY Qty: 60 RF: 6 Humalog Mix 75-25(U-100)Insuln 100 unit/mL (75-25) suspension 20 unit SC BID Qty: 10 RF: 6 rabeprazole 20 mg tablet,delayed release (DR/EC) 20 mg PO DAILY Qty: 30 RF: 5 acetaminophen [Mapap Extra Strength] 500 MG tablet 1,000 mg PO .Q6HRS PRNRF: 0 aspirin [Aspirin Low-Strength] 81 MG tablet,chewable 81 mg PO DAILY RF: 0 Discharge Data Discharge Date/Time-TO BE ENTERED AT DEPARTURE: 07/24/19 02:13 Medical Decision Making <Paradise Gambino DO - Last Filed: 07/24/19 20:58> 2230 -- 58-year-old male with a history of coronary artery disease, BPH, COPD, diabetes, GERD, peripheral vascular disease, HI, CABG who presents for bilateral hip, knee and foot pain for years, and bilateral hand pain for the past week, worse today which has been consistent with his previous HI in the past. Denies any hand pain or chest pain at this time. EKG on arrival notes a rate of 94, sinus with [address] elevation in V1, V2 and [address] elevation in aVR, V3 with less than [address] depression noted in V6. This appears new compared to previous EKG. 325 aspirin, 600 mg Plavix, heparin bolus and drip ordered. Labs pending. Will send EKGs to [facility] [place] for consult and possible transfer. 2320 --discussed with [facility] [place] cardiology who reviewed EKGs. At this time labs resulted and troponin negative. Okay with plan for heparin bolus and drip at this time. She recommended a repeat troponin and EKG in 3 hours. Discussed that as patient has dynamic EKG changes in the setting of similar symptoms with previous HI, it seems most appropriate that patient be transferred to [facility] [place] for cardiology evaluation and possible intervention. Repeat EKG notes a rate of 103, sinus with [address] elevation in V2 and [address] elevation in aVR, V1 and V3 with less than [address] depression noted in V6. 2345 --labs reviewed. Glucose 411, magnesium 1.7, otherwise labs unremarkable. Chest x-ray negative. 2355 --Case discussed with [facility] [place] cardiology -agree with plan for transfer. Would like a stat troponin and EKG at this time and to be notified of those results whether to determine to give lytics prior to arrival. No contraindications to lytics. Case endorsed to Dr. Rodriguez to follow-up on repeat troponin and if elevated, plan to discuss with [facility] [place] cardiology whether to proceed with lytics. Repeat EKG notes no acute change from previous, patient still noted with [address] elevation in V1 and V3 and [address] elevation in V2 with reciprocal changes in V6. There is some artifact so will repeat. Patient is agreeable with plan for transfer. Medical Records Medical records reviewed: Yes I reviewed the patient's medical records. Lab Data Lab results reviewed: Yes I reviewed the patient's lab results. Labs: Laboratory Tests Range/Units 07/23/19 07/23/19 07/23/19 22:45 22:45 22:45 WBC (4.4-10.8) k/cumm 7.07 RBC (4.50-6.00) m/cumm 5.03 Hgb (13.5-17.5) g/dL 14.8 Hct (40.0-50.0) % 44.0 MCV (80-95) fL 87.5 MCH (27.0-33.0) pg 29.4 MCHC (32.0-36.0) g/dL 33.6 RDW (11.8-14.1) % 13.2 Plt Count (130-400) x1000/uL 212 MPV (8.0-11.0) fL 11.2 H Immature Gran % % 0.1 Neutrophils % 47.3 Lymphocytes % 45.0 Monocytes % 5.5 Eosinophils % 1.8 Basophils % 0.3 Absolute Neutrophils (1.2-6.7) k/cumm 3.34 Absolute Lymphocytes (1.2-3.4) k/cumm 3.18 Absolute Monocytes (0.11-0.7) k/cumm 0.39 Absolute Eosinophils (0.0-0.7) k/cumm 0.13 Absolute Basophils (0.0-0.2) k/cumm 0.02 PT (9.3-11.0) sec INR (0.9-1.1) APTT (21.0-31.4) sec Sodium (136-145) mmol/L 141 Potassium (3.5-5.1) mmol/L 3.9 Chloride (98-107) mmol/L 103 Carbon Dioxide (21.0-32.0) mmol/L 26.8 Anion Gap (3-11) mmol/L 11.2 H BUN (7-18) mg/dL 13 Creatinine (0.70-1.30) mg/dL 0.88 Estimated GFR/1.73 m2 (mL/min/1.73m2) >= 60.00 Glucose (74-106) mg/dL 411 H Calcium (8.5-10.1) mg/dL 8.9 Magnesium (1.8-2.4) mg/dL 1.7 L Total Bilirubin (0.2-1.0) mg/dL 0.2 AST (15-37) U/L 11 L ALT (16-63) U/L 18 Alkaline Phosphatase (46-116) U/L 106 Troponin I (<0.06) ng/Ml < 0.05 Total Protein (6.4-8.2) g/dL 7.6 Albumin (3.4-5.0) g/dL 3.4 Range/Units 07/23/19 22:45 WBC (4.4-10.8) k/cumm RBC (4.50-6.00) m/cumm Hgb (13.5-17.5) g/dL Hct (40.0-50.0) % MCV (80-95) fL MCH (27.0-33.0) pg MCHC (32.0-36.0) g/dL RDW (11.8-14.1) % Plt Count (130-400) x1000/uL MPV (8.0-11.0) fL Immature Gran % % Neutrophils % Lymphocytes % Monocytes % Eosinophils % Basophils % Absolute Neutrophils (1.2-6.7) k/cumm Absolute Lymphocytes (1.2-3.4) k/cumm Absolute Monocytes (0.11-0.7) k/cumm Absolute Eosinophils (0.0-0.7) k/cumm Absolute Basophils (0.0-0.2) k/cumm PT (9.3-11.0) sec 9.9 INR (0.9-1.1) 1.0 APTT (21.0-31.4) sec 22.3 Sodium (136-145) mmol/L Potassium (3.5-5.1) mmol/L Chloride (98-107) mmol/L Carbon Dioxide (21.0-32.0) mmol/L Anion Gap (3-11) mmol/L BUN (7-18) mg/dL Creatinine (0.70-1.30) mg/dL Estimated GFR/1.73 m2 (mL/min/1.73m2) Glucose (74-106) mg/dL Calcium (8.5-10.1) mg/dL Magnesium (1.8-2.4) mg/dL Total Bilirubin (0.2-1.0) mg/dL AST (15-37) U/L ALT (16-63) U/L Alkaline Phosphatase (46-116) U/L Troponin I (<0.06) ng/Ml Total Protein (6.4-8.2) g/dL Albumin (3.4-5.0) g/dL ECG Data Attestation: I personally reviewed and interpreted this ECG (s) as follows: Interpretation: #1 -- Rate of 94, sinus. [address] elevation in V1 and V2. [address] elevation in aVR, V3. Less than [address] depression in V6. HI 148. QTc 433. QRS 104. #2 -- Rate of 103, sinus. [address] elevation in V2. [address] elevation in aVR, V1 and V3. Less than [address] depression in V6. #3 --Rate of 101, sinus, PVCs. [address] elevation in V1 and V3. [address] elevation in V2. Less than [address] depression in V6. <Kenton Rodriguez MD - Last Filed: 07/24/19 00:56> Received signout from Dr. Gambino pending repeat troponin. Repeat troponin is negative. Patient remains improved. He is pending transfer to [facility] [place]. Lab Data Lab results reviewed: Yes I reviewed the patient's lab results. Labs: Laboratory Results - last 24 hr 07/23/19 07/23/19 07/23/19 22:45 22:45 22:45 WBC 7.07 RBC 5.03 Hgb 14.8 Hct 44.0 MCV 87.5 MCH 29.4 MCHC 33.6 RDW 13.2 Plt Count 212 MPV 11.2 H Immature Gran % 0.1 Neutrophils % 47.3 Lymphocytes % 45.0 Monocytes % 5.5 Eosinophils % 1.8 Basophils % 0.3 Absolute Neutrophils 3.34 Absolute Lymphocytes 3.18 Absolute Monocytes 0.39 Absolute Eosinophils 0.13 Absolute Basophils 0.02 PT INR APTT Sodium 141 Potassium 3.9 Chloride 103 Carbon Dioxide 26.8 Anion Gap 11.2 H BUN 13 Creatinine 0.88 Estimated GFR/1.73 m2 >= 60.00 Glucose 411 H Calcium 8.9 Magnesium 1.7 L Total Bilirubin 0.2 AST 11 L ALT 18 Alkaline Phosphatase 106 Troponin I < 0.05 Total Protein 7.6 Albumin 3.4 Urine Color Urine Clarity Urine pH Ur Specific [place] Urine Protein Urine Ketones Urine Blood Urine Nitrite Urine Bilirubin Urine Urobilinogen Ur Leukocyte Esterase Urine Glucose Ethyl Alcohol 07/23/19 07/24/19 07/24/19 22:45 00:20 00:20 WBC RBC Hgb Hct MCV MCH MCHC RDW Plt Count MPV Immature Gran % Neutrophils % Lymphocytes % Monocytes % Eosinophils % Basophils % Absolute Neutrophils Absolute Lymphocytes Absolute Monocytes Absolute Eosinophils Absolute Basophils PT 9.9 INR 1.0 APTT 22.3 Sodium Potassium Chloride Carbon Dioxide Anion Gap BUN Creatinine Estimated GFR/1.73 m2 Glucose Calcium Magnesium Total Bilirubin AST ALT Alkaline Phosphatase Troponin I < 0.05 Total Protein Albumin Urine Color Yellow Urine Clarity Clear Urine pH 5.5 Ur Specific [place] 1.010 Urine Protein Negative Urine Ketones Negative Urine Blood Negative Urine Nitrite Negative Urine Bilirubin Negative Urine Urobilinogen 0.2 Ur Leukocyte Esterase Negative Urine Glucose 500 H Ethyl Alcohol 07/24/19 00:20 WBC RBC Hgb Hct MCV MCH MCHC RDW Plt Count MPV Immature Gran % Neutrophils % Lymphocytes % Monocytes % Eosinophils % Basophils % Absolute Neutrophils Absolute Lymphocytes Absolute Monocytes Absolute Eosinophils Absolute Basophils PT INR APTT Sodium Potassium Chloride Carbon Dioxide Anion Gap BUN Creatinine Estimated GFR/1.73 m2 Glucose Calcium Magnesium Total Bilirubin AST ALT Alkaline Phosphatase Troponin I Total Protein Albumin Urine Color Urine Clarity Urine pH Ur Specific [place] Urine Protein Urine Ketones Urine Blood Urine Nitrite Urine Bilirubin Urine Urobilinogen Ur Leukocyte Esterase Urine Glucose Ethyl Alcohol 124.2 HPI <Paradise Gambino DO - Last Filed: 07/24/19 20:58> General Mode of arrival: ambulatory . Date/Time Provider Initiated Documentation: 07/23/19 22:27 . Limitations to Documentation: no limitations . Information obtained by: patient . HPI Narrative: Patient is a 58-year-old male who presents the ED with a complaint of pain in his bilateral hips, knees and feet for the past several years, worse recently. He is also complaining of some pain in his palms bilaterally for the past week worse today. He states he has had this previously with an HI. He denies any fever, cough, chest pain, shortness of breath or abdominal pain. He has had chronic dizziness for years that is worse with standing. He states he has not taken any of his regular medications for the past 4 months as he could not afford them due to having to pay his heating bill. He does smoke cigarettes and and occasionally drinks alcohol. Related Data Home Medications Medication Instructions Recorded Confirmed acetaminophen [Mapap Extra 1,000 mg PO .Q6HRS PRN 07/26/16 07/23/19 Strength] aspirin [Aspirin Low-Strength] 81 mg PO DAILY 07/26/16 07/23/19 blood-glucose meter #1 each 02/06/18 07/23/19 lancets #100 each 05/08/18 07/23/19 blood sugar diagnostic #100 each 05/29/18 07/23/19 insulin syringes (disposable) 1 mL #500 each 05/29/18 07/23/19 naloxone 4 mg/actuation nasal spray 1 spray NERY Q2-3M PRN #2 each 06/13/18 07/23/19 ondansetron 4 mg disintegrating 8 mg PO BID PRN #20 tab-cap 06/14/18 07/23/19 tablet levothyroxine 50 mcg tablet 50 mcg PO DAILY #60 tab 08/09/18 07/23/19 cyanocobalamin (vitamin B-12) 1,000 mcg PO DAILY #90 tab-cap 09/06/18 07/23/19 1,000 mcg tablet doxepin 25 mg capsule 25 mg PO HS #30 tab-cap 09/06/18 07/23/19 gabapentin 400 mg capsule 800 mg PO Q8H #180 cap 09/06/18 07/23/19 glipizide 10 mg tablet, extended 10 mg PO DAILY #180 tab-cap 09/06/18 07/23/19 release 24 hr atorvastatin 80 mg tablet 80 mg PO QPM #90 tab 09/12/18 07/23/19 furosemide 20 mg tablet 20 mg PO DAILY #90 tab 09/12/18 07/23/19 lisinopril 20 mg tablet 20 mg PO DAILY #90 cap 09/12/18 07/23/19 metoprolol succinate 50 mg 50 mg PO BID #180 tab 09/12/18 07/23/19 tablet,extended release 24 hr clopidogrel 75 mg tablet 75 mg PO DAILY 09/25/18 07/23/19 metformin 500 mg tablet 500 mg PO BID #240 tab 09/25/18 07/23/19 sertraline 50 mg tablet 50 mg PO BID #60 tab 09/25/18 07/23/19 empagliflozin 25 mg tablet 25 mg PO DAILY #60 tab 10/23/18 07/23/19 insulin lispro protamine-lispro 20 unit SC BID #10 ml 10/23/18 07/23/19 100 unit/mL (75-25) subcutaneous susp rabeprazole 20 mg tablet,delayed 20 mg PO DAILY #30 tab 10/25/18 07/23/19 release Previous Rx's Medication Instructions Recorded blood-glucose meter #1 each 02/06/18 lancets #100 each 05/08/18 blood sugar diagnostic #100 each 05/29/18 insulin syringes (disposable) 1 mL #500 each 05/29/18 naloxone 4 mg/actuation nasal spray 1 spray NERY Q2-3M PRN #2 each 06/13/18 ondansetron 4 mg disintegrating 8 mg PO BID PRN #20 tab-cap 06/14/18 tablet levothyroxine 50 mcg tablet 50 mcg PO DAILY #60 tab 08/09/18 cyanocobalamin (vitamin B-12) 1,000 mcg PO DAILY #90 tab-cap 09/06/18 1,000 mcg tablet doxepin 25 mg capsule 25 mg PO HS #30 tab-cap 09/06/18 gabapentin 400 mg capsule 800 mg PO Q8H #180 cap 09/06/18 glipizide 10 mg tablet, extended 10 mg PO DAILY #180 tab-cap 09/06/18 release 24 hr atorvastatin 80 mg tablet 80 mg PO QPM #90 tab 09/12/18 furosemide 20 mg tablet 20 mg PO DAILY #90 tab 09/12/18 lisinopril 20 mg tablet 20 mg PO DAILY #90 cap 09/12/18 metoprolol succinate 50 mg 50 mg PO BID #180 tab 09/12/18 tablet,extended release 24 hr metformin 500 mg tablet 500 mg PO BID #240 tab 09/25/18 sertraline 50 mg tablet 50 mg PO BID #60 tab 09/25/18 empagliflozin 25 mg tablet 25 mg PO DAILY #60 tab 10/23/18 insulin lispro protamine-lispro 20 unit SC BID #10 ml 10/23/18 100 unit/mL (75-25) subcutaneous susp rabeprazole 20 mg tablet,delayed 20 mg PO DAILY #30 tab 10/25/18 release Allergies Allergy/AdvReac Type Severity Reaction Status Date / Time venlafaxine HCl AdvReac Intermediate Increased Unverified 07/23/19 22:29 [From Effexor] Blood Pressure General BEN: 3 Review of Systems <Paradise Gambino DO - Last Filed: 07/24/19 20:58> All systems reviewed & are unremarkable except as noted in HPI and below Constitutional Constitutional: Reports as per HPI, Denies chills and Denies fever(s) Eyes Eyes: Denies blurry vision ENT Ears, Nose, Mouth, and Throat: Denies dizziness, Denies sore throat and Denies throat swelling Cardiovascular Cardiovascular: Denies chest pain and Denies dyspnea Respiratory Respiratory: Denies cough and Denies dyspnea Gastrointestinal Gastrointestinal: Denies abdominal pain, Denies diarrhea and Denies vomiting Genitourinary Genitourinary: Denies hematuria and Denies dysuria Musculoskeletal Musculoskeletal: Denies back pain and Denies numbness Integumentary/Breasts Skin/Breast: Denies lesions and Denies rash Neurologic Neurologic: Denies dizziness, Denies localized weakness and Denies numbness Allergic/Immunologic Allergic/Immunologic: Denies throat swelling PFSH <Paradise Gambino DO - Last Filed: 07/24/19 20:58> Social History Smoking/Tobacco Use Status: Current every day Tobacco Type: cigarettes Second Hand Exposure: Yes Alcohol Intake: current Alcohol Intake frequency: 0-2 drinks per day Alcohol type: beer Drug use: Never Substance use type: marijuana Pets and animals: Yes Pets and animals: dog(s) Duration: decline to answer Frequency: decline to answer Annita/Samaritan: Catholic Special annita needs: No Do you feel safe at home: Yes Do you feel safe in your relationship?: Yes Exam <Paradise Gambino DO - Last Filed: 07/24/19 20:58> Const General: cooperative, healthy appearing and no acute distress [facility] Head: normal to inspection Face and sinus: normal facial exam Eyes General: appearance normal, both eyes and all related structures Pupils: PERRL EOM: EOM intact bilaterally Neck Neck: normal visual inspection and No submandibular swelling Lymphatic: no lymphadenopathy noted Chest Chest: normal inspection of the chest and no tenderness Resp Effort & Inspection: normal respiratory effort and able to speak in complete sentences Auscultation: clear to auscultation bilaterally Cardio Rate: regular rate Rhythm: regular rhythm GI Inspection: normal to inspection Palpation: soft, not firm, not rigid and nontender Auscultation: normal bowel sounds Skin General skin exam: no rashes or lesions noted Neuro General: patient alert, patient awake and patient oriented x3 Cognition: normal cognition Speech: speech normal Motor: muscle tone normal throughout Sensory Exam: no sensory deficits noted Extrem General: normal to inspection, full ROM, capillary refill normal, no calf tenderness bilaterally and no edema Psych Appearance: grossly normal Mental Status: mental status grossly normal Speech and Movement: speech and movement normal Affect: normal affect Critical Care Time <Paradise Gambino DO - Last Filed: 07/24/19 20:58> Critical Care Time Total Critical Care Time: 40 Attestation: I spent 40 minutes of critical care time with this patient. This does not include time spent on separately reported billable procedures. Sign Out <Paradise Gambino DO - Last Filed: 07/24/19 20:58> Sign Out Data: Sign Out Comment: Pending transfer to [facility] [place]. Awaiting bed placement. Follow-up on repeat troponin. Discussed with [facility] cardiology whether there is plan for thrombolytics prior to transfer. Last updated by Paradise Gambino DO at 07/24/19 00:16
[2019-07-23 22:46] VITALS: RESP 18
[2019-07-23 22:59] LABS: Abs Immature Grans 0.01 k/cumm (0.0-0.09); Absolute Basophil Count 0.02 k/cumm (0.0-0.2); Absolute Eosinophil Count 0.13 k/cumm (0.0-0.7); Absolute Lymphocyte Count 3.18 k/cumm (1.2-3.4); Absolute Monocyte Count 0.39 k/cumm (0.11-0.7); Absolute Neutrophil Count 3.34 k/cumm (1.2-6.7); Basophils % 0.3; Eosinophils % 1.8; HGB 14.8 g/dL (13.5-17.5); Immature Grans % 0.1 %; Mean Corp. HGB Concentration 33.6 g/dL (32.0-36.0); Mean Corpuscular Hemoglobin 29.4 pg (27.0-33.0); Mean Corpuscular Volume 87.5 fL (80-95); Mean Platelet Volume 11.2 fL (8.0-11.0); Monocytes % 5.5; Neutrophils % 47.3; Platelet Count 212 x1000/uL (130-400); RBC 5.03 m/cumm (4.50-6.00); RBC Distribution Width 13.2 % (11.8-14.1); White Blood Cell Count 7.07 k/cumm (4.4-10.8)
[2019-07-23] MEDS: Clopidogrel 300 MG TAB 600 MG PO (23:08)
[2019-07-23] MEDS: Aspirin 325 MG TAB PO (23:08)
[2019-07-23 23:19] LABS: Troponin I < 0.05 ng/Ml (<0.06)
[2019-07-23 23:21] LABS: PTT Activated 22.3 sec (21.0-31.4); Prothrombin Time 9.9 sec (9.3-11.0)
[2019-07-23 23:25] LABS: ALT 18 U/L (16-63); AST 11 U/L (15-37); Albumin 3.4 g/dL (3.4-5.0); Alkaline Phosphatase 106 U/L (46-116); Anion Gap 11.2 mmol/L (3-11); BUN 13 mg/dL (7-18); Bilirubin, Total 0.2 mg/dL (0.2-1.0); CO2 26.8 mmol/L (21.0-32.0); CREATININE 0.88 mg/dL (0.70-1.30); Calcium 8.9 mg/dL (8.5-10.1); Chloride 103 mmol/L (98-107); Glucose 411 mg/dL (74-106); Magnesium 1.7 mg/dL (1.8-2.4); Potassium 3.9 mmol/L (3.5-5.1); Sodium 141 mmol/L (136-145); Total Protein 7.6 g/dL (6.4-8.2)
--- NOTE | 2019-07-23 23:37 | DI.RAD_ITS ---
EXAM: XR CHEST 2V PA LATERAL CLINICAL HISTORY: dizziness, r/o acute disease TECHNIQUE: 2D digital imaging was performed. COMPARISON: CHEST 2 VIEWS PA,LAT from 08/30/2016 FINDINGS: The patient is again noted to be status post CABG. The heart size is normal. The lungs are well in flated and clear. No infiltrate, effusion or pulmonary edema is seen. IMPRESSION: No acute abnormality.
--- NOTE | 2019-07-23 23:50 | DI.VRAD_ITS ---
PROCEDURE INFORMATION: Exam: XR Chest, 2 Views Exam date and time: 07/23/2019 11:37 PM Age: 58 years old Clinical indication: Patient HX: Cough, R/O acute disease. TECHNIQUE: Imaging protocol: XR of the chest Views: 2 views. COMPARISON: CR CHEST 2 VIEWS PA,LAT 08/30/2016 5:12 PM FINDINGS: Lungs: Bibasilar streaky opacities consistent with atelectasis. Lungs are otherwise clear. Pleural space: Unremarkable. No pleural effusion. No pneumothorax. Heart/Mediastinum: Unremarkable postsurgical cardiomediastinal silhouette. Bones/joints: Unremarkable. IMPRESSION: No acute findings. Dictated and Authenticated by: Trevor Orta MD. Ordering:TC Ghotra MD
[2019-07-24] MEDS: MAGNESIUM SULFATE 1 GM/100 ML BAG IVPB (00:26)
[2019-07-24] MEDS: Normal Saline 1,000 ML 1000 ML IV (00:26)
[2019-07-24 00:41] LABS: ETHANOL BLOOD 124.2 mg/dL (<3)
[2019-07-24 00:43] LABS: Bilirubin Negative (Negative); Blood Negative (Negative); Clarity Clear (Clear); Glucose 500 mg/dL (Negative); Ketones Negative (Negative); Leukocyte Esterase Negative (Negative); Nitrite Negative (Negative); Urobilinogen 0.2 EU/dL (Up TO 0.2); pH 5.5 (5-8)
[2019-07-24 00:48] LABS: Troponin I < 0.05 ng/Ml (<0.06)
[2019-07-24 02:31] LABS: Troponin I < 0.05 ng/Ml (<0.06)
== END 2019-07-24 02:13 | disposition short-term general hospital (02) ==
LOC: ER 07-24 01:09
PROVIDERS: Physician Assistant; Emergency Provider Emergency Medicine; PCP Family Medicine
DX: I21.3 ST elevation (STEMI) myocardial infarction of unspecified site (principal); I25.10 Atherosclerotic heart disease of native coronary artery without angina pectoris; I25.2 Old myocardial infarction; J44.9 Chronic obstructive pulmonary disease, unspecified; E11.9 Type 2 diabetes mellitus without complications; Z95.1 Presence of aortocoronary bypass graft; F17.210 Nicotine dependence, cigarettes, uncomplicated; Z91.120 Patient's intentional underdosing of medication regimen due to financial hardship
CPT/HCPCS: 36415; 80053; 93005; 96361; 96365; 96366; 96375; 99285; 71046; 80320; 81003; 83735; 84484; 85025; 85610; 85730; 93010; J3475

== ENCOUNTER 2019-10-03 09:14 | Emergency (ER) | payer MEDICARE, SELFPAY ==
[2019-10-03 09:18] VITALS: BP 183/83; PULSE 85; RESP 17; TEMP 36.7; O2SAT 100
--- NOTE | 2019-10-03 09:20 | W.ED.GENAD ---
Discharge Plan Disposition Patient Disposition: HOME Condition: Improving Discharge Details Chief Complaint: Abd Prob Clinical Impression: Abdominal pain, Vomiting Primary Care Provider: Joel Mccarthy ED Provider: Paradise Gambino Home Meds and New Rx's Prescriptions: New famotidine [Pepcid] 20 mg tablet 20 mg PO DAILY Qty: 14 RF: 0 dicyclomine 20 mg tablet 20 mg PO TID PRN (Reason: abdominal pain) Qty: 10 RF: 0 ondansetron 4 mg tablet,disintegrating 4 mg PO TID PRN (Reason: nausea and vomiting) Qty: 6 RF: 0 Continued cyanocobalamin (vitamin B-12) [Vitamin B-12] 1,000 mcg tablet 1,000 mcg PO DAILY Qty: 90 RF: 3 lisinopril 20 mg tablet 20 mg PO DAILY Qty: 90 RF: 3 metformin 500 mg tablet 1,000 mg PO BID Qty: 360 RF: 3 clopidogrel 75 mg tablet 75 mg PO DAILY Qty: 90 RF: 3 Humalog Mix 75-25(U-100)Insuln 100 unit/mL (75-25) suspension 20 unit SC BID Qty: 10 RF: 6 levothyroxine [Synthroid] 50 mcg tablet 50 mcg PO DAILY Qty: 90 RF: 3 gabapentin 400 mg capsule 400 mg PO TID Qty: 90 RF: 11 atorvastatin [Lipitor] 80 mg tablet 80 mg PO QPM Qty: 90 RF: 3 (DME) blood sugar diagnostic [Blood Glucose Test] Strip See Dose Instructions .ROUTE .MEDSUPPLY Qty: 100 RF: 1 (DME) blood-glucose meter Kit See Dose Instructions .ROUTE .MEDSUPPLY Qty: 1 RF: 0 carvedilol 12.5 mg tablet 12.5 mg PO BID Qty: 60 RF: 11 aspirin 81 mg tablet,chewable 81 mg PO DAILY Qty: 180 RF: 1 Jardiance 25 mg tablet 25 mg PO DAILY Qty: 60 RF: 6 Hold Instructions: cannot afford checking other sources (DME) insulin syringes (disposable) 1 mL syringe See Dose Instructions .ROUTE .MEDSUPPLY Qty: 500 RF: 1 (DME) lancets [Fingerstix Lancets] Misc See Dose Instructions .ROUTE .MEDSUPPLY Qty: 100 RF: 1 sertraline 50 mg tablet 50 mg PO DAILY Qty: 90 RF: 3 nitroglycerin [Nitrostat] 0.4 mg tablet, sublingual 0.4 mg SL Q5-15M PRN (Reason: chest pain) Qty: 20 RF: 5 pantoprazole 40 mg tablet,delayed release (DR/EC) 40 mg PO DAILY Qty: 90 RF: 1 Discharge Instructions Instructions: Acute Nausea and Vomiting (ED), Abdominal Pain (ED) Additional Instructions: Drink plenty of fluids and get plenty of rest. Follow a diet of clear liquids over the next few days. You will receive a call from general surgery regarding a follow-up appointment. You can also call the general surgery office at the number below to schedule this appointment. Return to the emergency department if you develop any symptoms such as persistent fevers, vomiting or worsening pain. Referrals: Carla Amado DO [OSTEOPATHIC DOCTOR] - Discharge Data Discharge Physician: Paradise Gambino Medical Decision Making 0987 -- 58-year-old male with a history of multiple episodes of diverticulitis and partial colectomy associated with diverticulitis, coronary artery disease, CABG, diabetes, hypertension hyperlipidemia who presents with intermittent sharp left lower quadrant abdominal pain, vomiting and diarrhea for the past 3 weeks, treated with Augmentin without relief. He has tenderness from LUQ down to LLQ. Differential diagnosis includes gastritis, pud, diverticulitis, pancreatitis, appendicitis, etc. Will place an IV, bolus IV fluids, screening labs, CT abdomen and pelvis, morphine and Zofran and will reassess. 1045 -- Labs and imaging reviewed and unremarkable. Normal white blood cell count and lipase. CT negative for acute findings. Pt reassessed - pain improved to 3/10. He is reading newspaper and appears in no acute distress. 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 Pt feels ok to go home and states he otherwise would not have come if not for recommendation of his pcp and girlfriend. Other possible cause include gastritis, pud, ibs, etc. Will send home with prescription for zofran, pepcid, and bentyl. Patient placed on surgery list for follow-up. Usual and customary return precautions given prior to discharge. Medical Records Medical records reviewed: Yes I reviewed the patient's medical records. Imaging Data Radiologic Study: Radiologist's impression: CT ABDOMEN PELVIS W CLINICAL HISTORY: LUQ/LLQ abd pain, r/o diverticulitis TECHNIQUE: Imaging Protocol: Axial computed tomography images with coronal and sagittal reformatted images were created and reviewed CONTRAST MATERIAL: Intravenous: Omnipaque 350 Contrast volume:100 mL Oral: No COMPARISON: CT RENAL COLIC WO CONTRAST from 07/16/2017 FINDINGS: ABDOMEN: Lung Bases: Normal where visualized. Liver: Normal density. No measurable mass. Stable tiny hypodensity in the liver likely reflecting a small cyst. Portal, Superior Mesenteric, and Splenic Veins: Unremarkable. Gallbladder and Biliary Tract: No radiodense calculus or dilation. Pancreas: Normal density, no abnormal calcifications or inflammatory process. Spleen: Normal. Adrenals: Stable left adrenal nodule. Unremarkable right adrenal gland. Kidneys: Normal size, contour and axis. No radiodense stones or obstructive uropathy. Tiny hypodensities within the kidneys. They are too small for further characterization but likely reflect small cysts. Abdominal Aorta: Abdominal portion non-dilated. Atherosclerosis. Bowel: No obstruction or bowel wall thickening. Appendix is unremarkable. Colonic diverticulosis but no evidence of acute diverticulitis. Anastomotic sutures seen in the mid sigmoid colon. Peritoneal Cavity: No ascites, collection or mesenteric inflammatory response. Lymph Nodes: Within normal limits. Bones: Degenerative changes. Soft Tissues: Bilateral fat containing inguinal hernia. PELVIS: Bladder: Symmetric distention, no gross wall thickening. Reproductive Organs: Unremarkable as visualized. Lymph Nodes: Within normal limits. Bones: Degenerative changes. IMPRESSION: No acute abdominal or pelvic process. Lab Data Lab results reviewed: Yes I reviewed the patient's lab results. Labs: Laboratory Tests Range/Units 10/03/19 10/03/19 09:27 09:27 WBC (4.4-10.8) k/cumm 9.96 RBC (4.50-6.00) m/cumm 4.80 Hgb (13.5-17.5) g/dL 14.3 Hct (40.0-50.0) % 42.4 MCV (80-95) fL 88.3 MCH (27.0-33.0) pg 29.8 MCHC (32.0-36.0) g/dL 33.7 RDW (11.8-14.1) % 15.6 H Plt Count (130-400) x1000/uL 235 MPV (8.0-11.0) fL 10.5 Immature Gran % % 0.4 Neutrophils % 54.1 Lymphocytes % 35.8 Monocytes % 6.9 Eosinophils % 2.5 Basophils % 0.3 Absolute Neutrophils (1.2-6.7) k/cumm 5.38 Absolute Lymphocytes (1.2-3.4) k/cumm 3.57 H Absolute Monocytes (0.11-0.7) k/cumm 0.69 Absolute Eosinophils (0.0-0.7) k/cumm 0.25 Absolute Basophils (0.0-0.2) k/cumm 0.03 Sodium (136-145) mmol/L 139 Potassium (3.5-5.1) mmol/L 3.9 Chloride (98-107) mmol/L 101 Carbon Dioxide (21.0-32.0) mmol/L 25.3 Anion Gap (3-11) mmol/L 12.7 H BUN (7-18) mg/dL 13 Creatinine (0.70-1.30) mg/dL 0.78 Estimated GFR/1.73 m2 (mL/min/1.73m2) >= 60.00 Glucose (74-106) mg/dL 164 H Calcium (8.5-10.1) mg/dL 9.0 Total Bilirubin (0.2-1.0) mg/dL 0.5 AST (15-37) U/L 15 ALT (16-63) U/L 24 Alkaline Phosphatase (46-116) U/L 98 Total Protein (6.4-8.2) g/dL 7.9 Albumin (3.4-5.0) g/dL 3.9 Lipase (73-393) U/L 52 HPI General Mode of arrival: ambulatory. Date/Time Provider Initiated Documentation: 10/03/19 09:15. Limitations to Documentation: no limitations. Information obtained by: patient. HPI Narrative: Patient is a 58-year-old male with a history of multiple previous episodes of diverticulitis, coronary artery disease, CABG, diabetes, hypertension, hyperlipidemia, COPD, colectomy due to previous diverticulitis who presents for intermittent sharp left lower quadrant abdominal pain for the past 3 weeks. He has been treated with Augmentin for this by his PCP which she finished last night but states his symptoms are getting worse. He states his pain is currently 8/10. He has been taking Tylenol without relief. He admits to feeling feverish but states he has not taken his temperature. He states he has mainly felt nausea with a few episodes of vomiting every morning since then but states he does not vomit the rest of the day. He states he has been mainly following a liquid diet which helps his symptoms. He states his symptoms are worse with taking in any solid food. He also admits to daily episodes of diarrhea but denies any rectal bleeding or hematemesis. He denies any urinary symptoms. Related Data Home Medications Medication Instructions Recorded Confirmed aspirin 81 mg chewable tablet 81 mg PO DAILY #180 tab 07/27/19 10/03/19 atorvastatin 80 mg tablet 80 mg PO QPM #90 tab 07/27/19 10/03/19 blood sugar diagnostic #100 each 07/27/19 blood-glucose meter #1 each 07/27/19 carvedilol 12.5 mg tablet 12.5 mg PO BID #60 tab 07/27/19 10/03/19 empagliflozin 25 mg tablet 25 mg PO DAILY #60 tab 07/27/19 10/03/19 insulin syringes (disposable) 1 mL #500 each 07/27/19 lancets #100 each 07/27/19 nitroglycerin 0.4 mg sublingual 0.4 mg SL Q5-15M PRN #20 tab 07/27/19 10/03/19 tablet sertraline 50 mg tablet 50 mg PO DAILY #90 tab 07/27/19 10/03/19 pantoprazole 40 mg tablet,delayed 40 mg PO DAILY #90 tab 07/30/19 10/03/19 release cyanocobalamin (vitamin B-12) 1,000 mcg PO DAILY #90 tab-cap 07/31/19 10/03/19 1,000 mcg tablet lisinopril 20 mg tablet 20 mg PO DAILY #90 cap 07/31/19 10/03/19 metformin 500 mg tablet 1,000 mg PO BID #360 tab 07/31/19 10/03/19 gabapentin 400 mg capsule 400 mg PO TID #90 cap 08/07/19 10/03/19 levothyroxine 50 mcg tablet 50 mcg PO DAILY #90 tab 08/07/19 10/03/19 clopidogrel 75 mg tablet 75 mg PO DAILY #90 tab 08/09/19 10/03/19 insulin lispro protamine-lispro 20 unit SC BID #10 ml 08/21/19 10/03/19 100 unit/mL (75-25) subcutaneous susp dicyclomine 20 mg PO TID PRN #10 tab 10/03/19 famotidine [Pepcid] 20 mg PO DAILY #14 tab 10/03/19 ondansetron 4 mg PO TID PRN #6 tab 10/03/19 Previous Rx's Medication Instructions Recorded aspirin 81 mg chewable tablet 81 mg PO DAILY #180 tab 07/27/19 atorvastatin 80 mg tablet 80 mg PO QPM #90 tab 07/27/19 blood sugar diagnostic #100 each 07/27/19 blood-glucose meter #1 each 07/27/19 carvedilol 12.5 mg tablet 12.5 mg PO BID #60 tab 07/27/19 empagliflozin 25 mg tablet 25 mg PO DAILY #60 tab 07/27/19 insulin syringes (disposable) 1 mL #500 each 07/27/19 lancets #100 each 07/27/19 nitroglycerin 0.4 mg sublingual 0.4 mg SL Q5-15M PRN #20 tab 07/27/19 tablet sertraline 50 mg tablet 50 mg PO DAILY #90 tab 07/27/19 pantoprazole 40 mg tablet,delayed 40 mg PO DAILY #90 tab 07/30/19 release cyanocobalamin (vitamin B-12) 1,000 mcg PO DAILY #90 tab-cap 07/31/19 1,000 mcg tablet lisinopril 20 mg tablet 20 mg PO DAILY #90 cap 07/31/19 metformin 500 mg tablet 1,000 mg PO BID #360 tab 07/31/19 gabapentin 400 mg capsule 400 mg PO TID #90 cap 08/07/19 levothyroxine 50 mcg tablet 50 mcg PO DAILY #90 tab 08/07/19 clopidogrel 75 mg tablet 75 mg PO DAILY #90 tab 08/09/19 insulin lispro protamine-lispro 20 unit SC BID #10 ml 08/21/19 100 unit/mL (75-25) subcutaneous susp dicyclomine 20 mg PO TID PRN #10 tab 10/03/19 famotidine [Pepcid] 20 mg PO DAILY #14 tab 10/03/19 ondansetron 4 mg PO TID PRN #6 tab 10/03/19 Allergies Allergy/AdvReac Type Severity Reaction Status Date / Time venlafaxine HCl AdvReac Intermediate Increased Unverified 07/23/19 22:29 [From Effexor] Blood Pressure General EBN: 3 Review of Systems All systems reviewed & are unremarkable except as noted in HPI and below Constitutional Constitutional: Reports as per HPI, Denies chills and Denies fever(s) Eyes Eyes: Denies blurry vision ENT Ears, Nose, Mouth, and Throat: Denies dizziness, Denies sore throat and Denies throat swelling Cardiovascular Cardiovascular: Denies chest pain and Denies dyspnea Respiratory Respiratory: Denies cough and Denies dyspnea Gastrointestinal Gastrointestinal: Reports abdominal pain, Reports diarrhea and Reports vomiting Genitourinary Genitourinary: Denies hematuria and Denies dysuria Musculoskeletal Musculoskeletal: Denies back pain and Denies numbness Integumentary/Breasts Skin/Breast: Denies lesions and Denies rash Neurologic Neurologic: Denies dizziness, Denies localized weakness and Denies numbness Allergic/Immunologic Allergic/Immunologic: Denies throat swelling [facility] Social History Smoking/Tobacco Use Status: Current every day Tobacco Type: cigarettes Second Hand Exposure: Yes Alcohol Intake: current Alcohol Intake frequency: 0-2 drinks per day Alcohol type: beer Drug use: Occasionally Substance use type: marijuana Pets and animals: Yes Pets and animals: dog(s) Current gender identity: male Duration: decline to answer Frequency: decline to answer Annita/Episcopal: Pentecostalism Special annita needs: No Do you feel safe at home: Yes Do you feel safe in your relationship?: Yes Exam Const General: cooperative and no acute distress Orientation: alert, awake and oriented x3 HENMT Head: normal to inspection Face and sinus: normal facial exam Eyes General: appearance normal, both eyes and all related structures EOM: EOM intact bilaterally Neck Neck: normal visual inspection and No submandibular swelling Lymphatic: no lymphadenopathy noted Chest Chest: normal inspection of the chest and no tenderness Resp Effort & Inspection: normal respiratory effort and able to speak in complete sentences Auscultation: clear to auscultation bilaterally Cardio Rate: regular rate Rhythm: regular rhythm GI Inspection: normal to inspection Palpation: soft, not firm, not rigid and tender in the LLQ and in the LUQ Auscultation: hypoactive bowel sounds Male General Exam: Yes normal external exam Penis: normal penis Scrotum: scrotum normal Testes: no testicular swelling, testicular tenderness on the left (which he states is chronic) and other (no erythema, edema, ecchymoses or rash) Skin General skin exam: no rashes or lesions noted Neuro General: patient alert, patient awake and patient oriented x3 Cognition: normal cognition Speech: speech normal Motor: muscle tone normal throughout Sensory Exam: no sensory deficits noted Extrem General: normal to inspection, full ROM, capillary refill normal, no calf tenderness bilaterally and no edema Psych Appearance: grossly normal Mental Status: mental status grossly normal Speech and Movement: speech and movement normal Affect: normal affect
[2019-10-03] MEDS: Ondansetron 4 MG/2 ML VIAL IVP (09:43)
[2019-10-03] MEDS: Normal Saline 1,000 ML 1000 ML IV (09:43)
[2019-10-03 09:46] LABS: Abs Immature Grans 0.04 k/cumm (0.0-0.09); Absolute Basophil Count 0.03 k/cumm (0.0-0.2); Absolute Eosinophil Count 0.25 k/cumm (0.0-0.7); Absolute Lymphocyte Count 3.57 k/cumm (1.2-3.4); Absolute Monocyte Count 0.69 k/cumm (0.11-0.7); Absolute Neutrophil Count 5.38 k/cumm (1.2-6.7); Basophils % 0.3; Eosinophils % 2.5; HCT 42.4 % (40.0-50.0); HGB 14.3 g/dL (13.5-17.5); Immature Grans % 0.4 %; Lymphocytes % 35.8; Mean Corp. HGB Concentration 33.7 g/dL (32.0-36.0); Mean Corpuscular Hemoglobin 29.8 pg (27.0-33.0); Mean Corpuscular Volume 88.3 fL (80-95); Mean Platelet Volume 10.5 fL (8.0-11.0); Monocytes % 6.9; Neutrophils % 54.1; Platelet Count 235 x1000/uL (130-400); RBC Distribution Width 15.6 % (11.8-14.1); White Blood Cell Count 9.96 k/cumm (4.4-10.8)
[2019-10-03 09:59] LABS: ALT 24 U/L (16-63); AST 15 U/L (15-37); Albumin 3.9 g/dL (3.4-5.0); Alkaline Phosphatase 98 U/L (46-116); Anion Gap 12.7 mmol/L (3-11); BUN 13 mg/dL (7-18); Bilirubin, Total 0.5 mg/dL (0.2-1.0); CO2 25.3 mmol/L (21.0-32.0); CREATININE 0.78 mg/dL (0.70-1.30); Chloride 101 mmol/L (98-107); Glucose 164 mg/dL (74-106); Lipase 52 U/L (73-393); Potassium 3.9 mmol/L (3.5-5.1); Sodium 139 mmol/L (136-145); Total Protein 7.9 g/dL (6.4-8.2)
[2019-10-03] MEDS: Omnipaque 350 MG/ML 100 ML BTL IJ (10:17)
[2019-10-03] MEDS: Normal Saline - Diluent 50 ML VIAL IV (10:18)
[2019-10-03] MEDS: Normal Saline Flush 10 ML SYR IVP (10:18)
--- NOTE | 2019-10-03 10:25 | DI.CT_ITS ---
EXAM: CT ABDOMEN PELVIS W CLINICAL HISTORY: LUQ/LLQ abd pain, r/o diverticulitis TECHNIQUE: Imaging Protocol: Axial computed tomography images with coronal and sagittal reformatted images were created and reviewed CONTRAST MATERIAL: Intravenous: Omnipaque 350 Contrast volume:100 mL Oral: No COMPARISON: CT RENAL COLIC WO CONTRAST from 07/16/2017 FINDINGS: ABDOMEN: Lung Bases: Normal where visualized. Liver: Normal density. No measurable mass. Stable tiny hypodensity in the liver likely reflecting a s mall cyst. Portal, Superior Mesenteric, and Splenic Veins: Unremarkable. Gallbladder and Biliary Tract: No radiodense calculus or dilation. Pancreas: Normal density, no abnormal calcifications or inflammatory process. Spleen: Normal. Adrenals: Stable left adrenal nodule. Unremarkable right adrenal gland. Kidneys: Normal size, contour and axis. No radiodense stones or obstructive uropathy. Tiny hypodensit ies within the kidneys. They are too small for further characterization but likely reflect small cys ts. Abdominal Aorta: Abdominal portion non-dilated. Atherosclerosis. Bowel: No obstruction or bowel wall thickening. Appendix is unremarkable. Colonic diverticulosis but no evidence of acute diverticulitis. Anastomotic sutures seen in the mid sigmoid colon. Peritoneal Cavity: No ascites, collection or mesenteric inflammatory response. Lymph Nodes: Within normal limits. Bones: Degenerative changes. Soft Tissues: Bilateral fat containing inguinal hernia. PELVIS: Bladder: Symmetric distention, no gross wall thickening. Reproductive Organs: Unremarkable as visualized. Lymph Nodes: Within normal limits. Bones: Degenerative changes. IMPRESSION: No acute abdominal or pelvic process. Findings were discussed with the emergency department on the date of the examination. RADIATION DOSE DELIVERED: 680.43mGy.cm Total DLP DATA REPOSITORY: All CT scans at this facility are submitted to the National Radiology Data Registry (NRDR) Dose Index Registry (DIR) with the [employer] (A[employer]). RADIATION OPTIMIZATION: All CT scans at this facility use at least one of these dose optimization te chniques: automated exposure control; mA and/or kV adjustment per patient size (includes targeted exa ms where dose is matched to clinical indication); or iterative reconstruction.
[2019-10-03 11:07] VITALS: BP 162/82; PULSE 85; RESP 17; TEMP 36.5; O2SAT 99
--- NOTE | 2019-10-03 12:47 | NUR.NOTE ---
Referral faxed to [facility]Nursing Note:
== END 2019-10-03 12:32 | disposition home or self-care (01) ==
PROVIDERS: Emergency Provider Physician Assistant; PCP Family Medicine
DX: R10.32 Left lower quadrant pain (principal); R10.12 Left upper quadrant pain; R11.2 Nausea with vomiting, unspecified; E11.9 Type 2 diabetes mellitus without complications; Z79.84 Long term (current) use of oral hypoglycemic drugs; I10 Essential (primary) hypertension; J44.9 Chronic obstructive pulmonary disease, unspecified; F17.210 Nicotine dependence, cigarettes, uncomplicated; Z90.49 Acquired absence of other specified parts of digestive tract
CPT/HCPCS: 36415; 80053; 83690; 96361; 96374; 96375; 99285; 74177; 85025; 99284; J2405; J3490

== ENCOUNTER → 2019-10-11 09:33 | Outpatient (BNVA) | payer MEDICARE, SELFPAY | PROVIDERS: PCP Family Medicine; Referring Provider Family Medicine; Visit Provider Surgery | DX: R10.32 Left lower quadrant pain (principal); J44.9 Chronic obstructive pulmonary disease, unspecified; K57.90 Diverticulosis of intestine, part unspecified, without perforation or abscess without bleeding; E11.9 Type 2 diabetes mellitus without complications; Z79.4 Long term (current) use of insulin | CPT/HCPCS: 99203; 99214 ==

== ENCOUNTER 2019-10-16 06:00 | Day surgery (SDC) | payer MEDICARE, SELFPAY ==
[2019-10-16 06:10] VITALS: BP 137/85; PULSE 84; RESP 16; TEMP 36.6; O2SAT 98
[2019-10-16] MEDS: Lactated Ringers 1,000 ML 80 ML IV (06:33)
--- NOTE | 2019-10-16 07:11 | W.PM.DSUDISC ---
Discharge Plan Disposition Patient Disposition: HOME Condition: Good Discharge Details Reason For Visit: Colonoscopy Attending Provider: Bri Benavidez Primary Care Provider: Joel Mccarthy Home Meds and New Rx's Prescriptions: Continued cyanocobalamin (vitamin B-12) [Vitamin B-12] 1,000 mcg tablet 1,000 mcg PO DAILY Qty: 90 RF: 3 lisinopril 20 mg tablet 20 mg PO DAILY Qty: 90 RF: 3 metformin 500 mg tablet 1,000 mg PO BID Qty: 360 RF: 3 clopidogrel 75 mg tablet 75 mg PO DAILY Qty: 90 RF: 3 Humalog Mix 75-25(U-100)Insuln 100 unit/mL (75-25) suspension 20 unit SC BID Qty: 10 RF: 6 levothyroxine [Synthroid] 50 mcg tablet 50 mcg PO DAILY Qty: 90 RF: 3 gabapentin 400 mg capsule 400 mg PO TID Qty: 90 RF: 11 atorvastatin [Lipitor] 80 mg tablet 80 mg PO QPM Qty: 90 RF: 3 (DME) blood sugar diagnostic [Blood Glucose Test] Strip See Dose Instructions .ROUTE .MEDSUPPLY Qty: 100 RF: 1 (DME) blood-glucose meter Kit See Dose Instructions .ROUTE .MEDSUPPLY Qty: 1 RF: 0 carvedilol 12.5 mg tablet 12.5 mg PO BID Qty: 60 RF: 11 aspirin 81 mg tablet,chewable 81 mg PO DAILY Qty: 180 RF: 1 Jardiance 25 mg tablet 25 mg PO DAILY Qty: 60 RF: 6 Hold Instructions: cannot afford checking other sources (DME) insulin syringes (disposable) 1 mL syringe See Dose Instructions .ROUTE .MEDSUPPLY Qty: 500 RF: 1 (DME) lancets [Fingerstix Lancets] Misc See Dose Instructions .ROUTE .MEDSUPPLY Qty: 100 RF: 1 sertraline 50 mg tablet 50 mg PO DAILY Qty: 90 RF: 3 nitroglycerin [Nitrostat] 0.4 mg tablet, sublingual 0.4 mg SL Q5-15M PRN (Reason: chest pain) Qty: 20 RF: 5 pantoprazole 40 mg tablet,delayed release (DR/EC) 40 mg PO DAILY Qty: 90 RF: 1 Discharge Instructions Additional Instructions: Findings: One small polyp was removed. My office will contact you with biopsy results. No active diverticulitis was found. Follow up: A follow up colonoscopy in 5 years may be needed depending on the biopsy results. Please call if you develop: fevers >101.5 Nausea or Vomiting Abdominal pain that is not transient DAY SURGERY UNIT POST COLONOSCOPY INSTRUCTIONS 1. Because there will be medication in your system for the next 24 hours, you may feel a little sleepy. Your coordination will be affected. Therefore: a. Do not drive or operate dangerous equipment for 24 hours. b. Do not drink alcohol beverages for 24 hours (not even beer). c. Plan to go home and rest for the day. 2. Generally there are no restrictions on your activity after a day or so has gone by, but you may feel a bit fatigued for a few days. 3 After you arrive home you may have a light meal and return to a normal diet as you can tolerate it without feeling sick to your stomach. 4. After surgery, you may feel pain or discomfort. This should be only transient, but if it persists please contact your doctor. 5. If there are any questions regarding the findings of your procedure, please feel free to contact your doctor. 6. If you are unable to contact your doctor with a problem, contact the hospital at [phone]. 7. Continue all your regular medications unless directed otherwise. I understand the above instructions and have no questions. Signature of Patient or Responsible Adult Escort Date/Time Name of Responsible Adult Escort Signature of Nurse Date/Time Activity:: Activity as Tolerated Diet:: As Tolerated Discharge Orders Discharge Orders: Discharge Order (Routine); Ordered 10/16/19 Ordered By: Bri Benavidez DS: Diagnosis Discharge Diagnosis (1) Colon polyp: Status: Acute (2) Diverticulosis: Status: Acute
--- NOTE | 2019-10-16 07:14 | W.COLOREPORT ---
Date of service: 10/16/19 Time of Service: 08:22 Colonoscopy Report Date of procedure: 10/16/19 Pre-op diagnosis general: Screening Post-op diagnosis procedure note: other (Descending colon polyp, Diverticulosis) Procedure: Colonoscopy with cold forceps polypectomy Surgeon: Bri Benavidez Anesthesia proc note operative: MAC Disposition: same day Indications: The patient presents for colon screening and also evaluation of LLQ pain. His last colonoscopy was 2009. He has had a sigmoid resection for chronic diverticulitis. Recent CT was normal. Procedure Description: The patient was placed in the left Chen position. Propofol was titrated to sedation. Digital rectal examination revealed no abnormalities. The scope was advanced to the cecum without difficulty. The ileocecal valve and appendiceal orifice were clearly identified. The distal ileum was intubated. The prep was good. The scope was slowly withdrawn over the course of greater than 6 minutes with no abnormalities seen in the ascending, transverse colon. In the descending colon a diminutive polyp was removed with the cold forceps. A widely patent side to side anastomosis was seen in the sigmoid region. There was a moderate amount of diverticulosis in the remaining sigmoid but no narrowing/tortuosity or inflammation. The rectum was normal including on retroflexed view with the exception of some prominent internal hemorrhoids. The patient tolerated the procedure well and was stable to recovery. Plan for routine screening colonoscopy in 5 years if the polyp is adenomatous.
--- NOTE | 2019-10-16 07:55 | BOWEL_PTH ---
PATIENT: Oleg Hitchcock LOC: [facility] U#:[id number] AGE/SX: 59/M ROOM: RE10/16/[address]: Bri Benavidez MD : [id number] BED: DIS: 10/16/2019 SPEC #: [id number] RECD: 10/16/19 12:39 STATUS: SHAWNA REQ #: [id number] ROD: 10/16/19 07:[address]: Bri Benavidez DEPT: Surgical Specimen RECD BY: Yahaira Packer ENTERED: 10/16/19 12:39 SP TYPE: Bowel OTHR DR: Joel Mccarthy MD Tissues: 1 - BIOPSY BOWEL Procedures: GROSS AND MICRO LEVEL 4 Comments: [id number]
[2019-10-16 08:36] VITALS: BP 148/89; PULSE 79; RESP 16; TEMP 35.9; O2SAT 100
== END 2019-10-16 08:42 | disposition home or self-care (01) ==
LOC: SUR 09:01
PROVIDERS: PCP Family Medicine; Visit Provider Surgery
PROC: 0DJD8ZZ Inspection of Lower Intestinal Tract, Via Natural or Artificial Opening Endoscopic (ICD-10-PCS; CPT 45378; principal; 2019-10-16 07:30)
DX: Z12.11 Encounter for screening for malignant neoplasm of colon (principal); D12.4 Benign neoplasm of descending colon; K57.30 Diverticulosis of large intestine without perforation or abscess without bleeding; Z90.49 Acquired absence of other specified parts of digestive tract; R10.32 Left lower quadrant pain; Z87.19 Personal history of other diseases of the digestive system
CPT/HCPCS: 45380; 88305

== ENCOUNTER 2020-06-19 18:59 | Outpatient (CLI) | payer MEDICARE, SELFPAY ==
--- NOTE | 2020-06-19 13:45 | DI.RAD_ITS ---
EXAM: XR KNEE RT 3V AP,LAT,ELIZABETH CLINICAL HISTORY: Red very painful right knee M25.569. TECHNIQUE: 2D digital imaging was performed. COMPARISON: No exams were available for comparison FINDINGS: There is no evidence of fracture nor obvious joint effusion. No obvious degenerative changes. Bone density normal. No osseous lesions. Surgical clips are seen in the medial soft tissues which are pr obably related to prior saphenous vein harvesting. IMPRESSION: DATA REPOSITORY: RADIATION DOSE DELIVERED:
== END 2020-06-19 19:00 ==
LOC: DI 19:14
PROVIDERS: PCP Family Medicine; Visit Provider Nurse Practitioner Family
DX: M25.561 Pain in right knee (principal)
CPT/HCPCS: 73562

== ENCOUNTER 2020-06-24 02:52 | Outpatient (CLI) | payer MEDICARE, SELFPAY ==
[2020-06-24 12:43] LABS: Hemoglobin A1C 8.1 % (<5.7)
[2020-06-24 13:10] LABS: Vitamin B12 776 pg/mL (193-986)
== END 2020-06-24 02:53 | disposition home or self-care (01) ==
LOC: LOS 02:53
PROVIDERS: Nurse Practitioner Family; PCP Family Medicine; Visit Provider Family Medicine
DX: E11.40 Type 2 diabetes mellitus with diabetic neuropathy, unspecified (principal)
CPT/HCPCS: 36415; 82607; 83036

== ENCOUNTER 2021-06-22 19:14 | Emergency (ER) | payer MEDICARE, SELFPAY ==
[2021-06-22 19:19] VITALS: BP 139/77; PULSE 82; RESP 20; TEMP 36.7; O2SAT 98
--- NOTE | 2021-06-22 19:45 | RT.EKG_ITS ---
APPROVED REPORT Exam: Resting ECG Reason for Exam: panic attacks, vomiting Patient Location: E HR:78 bpm ECG Measurements Heart Rate 78 AXIS VA 158 P 65 QRSd 118 QRS 36 QT 427 T 107 QTc 486 Conclusion Sinus rhythm...normal P axis, V-rate 60- 99 Probable left atrial enlargement...P >50mS, <-0.10mV V1 Nonspecific intraventricular conduction delay...QRSd >115mS, not LBBB/RBBB Anterior infarct, old...Q >40mS, abnormal ST-T, V2-V5 Nonspecific T abnormalities, lateral leads...T <-0.10mV, I aVL V5 V6 Physician: no stemi
--- NOTE | 2021-06-22 19:45 | W.ED.GENAD ---
Discharge Plan Disposition Patient Disposition: HOME Condition: Improving Discharge Details Clinical Impression: Anxiety, Panic attacks, Colitis Primary Care Provider: Lazarus Lugo ED Provider: Coral Holliday Meds and New Rx's Prescriptions: Continued lisinopril 20 mg tablet 20 mg PO DAILY Qty: 90 3RF (DME) blood-glucose meter Kit See Dose Instructions .ROUTE .MEDSUPPLY Qty: 1 0RF Dose Instruction: As directed Rx Instructions: twice daily (one touch ultra blue) (DME) lancets [Fingerstix Lancets] Misc See Dose Instructions .ROUTE .MEDSUPPLY Qty: 100 1RF Dose Instruction: As directed Rx Instructions: twice daily (one touch ultra blue) nitroglycerin [Nitrostat] 0.4 mg tablet, sublingual 0.4 mg SL Q5-15M PRN (Reason: chest pain) Qty: 20 5RF Rx Instructions: until response; do not exceed 3 doses per episode (DME) Blood Glucose Test Strip See Dose Instructions .ROUTE .MEDSUPPLY Qty: 100 1RF Dose Instruction: As directed Rx Instructions: twice daily ( ONE TOUCH ULTRA BLUE) Humalog Mix 75-25(U-100)Insuln 100 unit/mL (75-25) suspension 20 unit SC BID Qty: 10 6RF Rx Instructions: PER SLIDING SCALE Jardiance 25 mg tablet 25 mg PO DAILY Qty: 60 6RF Hold Instructions: cannot afford checking other sources carvedilol 12.5 mg tablet 12.5 mg PO BID Qty: 60 11RF Rx Instructions: must administer with a meal/food cyanocobalamin (vitamin B-12) [Vitamin B-12] 1,000 mcg tablet 1,000 mcg PO DAILY Qty: 90 3RF aspirin 81 mg tablet,chewable 81 mg PO DAILY Qty: 180 3RF atorvastatin [Lipitor] 80 mg tablet 80 mg PO QPM Qty: 90 3RF clopidogrel 75 mg tablet 75 mg PO DAILY Qty: 90 3RF levothyroxine [Synthroid] 50 mcg tablet 50 mcg PO DAILY Qty: 90 3RF Label Comments: PT states the dose has been increased to 1 full tablet metformin 500 mg tablet 1,000 mg PO BID Qty: 360 3RF quetiapine [Seroquel] 25 mg tablet 25 - 50 mg PO QHS 0RF amitriptyline 10 mg tablet 10 mg PO QHS Qty: 90 3RF pregabalin 200 mg capsule 200 mg PO TID Qty: 180 3RF (DME) insulin syringes (disposable) 1 mL syringe See Dose Instructions .ROUTE .MEDSUPPLY Qty: 500 3RF Dose Instruction: As directed Rx Instructions: Twice daily pantoprazole 40 mg tablet,delayed release (DR/EC) 40 mg PO DAILY Qty: 90 2RF tramadol 50 mg tablet 50 mg PO TID PRN (Reason: pain) Qty: 90 0RF No Action zolpidem [Ambien] 5 mg tablet 5 mg PO QHS PRN (Reason: sleep) Qty: 3 0RF Rx Instructions: May take 1 tab at bedtime sertraline 50 mg tablet 150 mg PO DAILY 0RF lorazepam 0.5 mg tablet 0.5 mg PO QHS PRN (Reason: sleep) Qty: 3 0RF Rx Instructions: Take one tablet before bedtime as needed for trouble sleeping. Discharge Instructions Instructions: Anxiety (ED), Panic Attack (ED) Additional Instructions: Department mental health treated to have close reevaluation with your prescribing psychiatrist as well as your therapist. Please continue with the safety plan as was outlined with mental health, this is been attached to the back of this discharge packet. continue with your medications as previously prescribed. An abrupt stop of your medication may cause significant complications and side effects. Your nausea and vomiting is associated with colitis that was noted on your imaging today. Please continue to encourage hydration. Please advance your diet slowly and as tolerated. Begin with bland and easy to digest foods such as bananas, rice, applesauce, toast. Please follow-up with your primary care provider in the next week. If you develop increased pain, inability stay hydrated, thoughts of self-harm or harming others or other new/worsening symptoms please seek care urgently once again. Referrals: Lazarus Lugo NP [Primary Care Provider] - Discharge Data Discharge Date/Time-TO BE ENTERED AT DEPARTURE: 06/23/21 00:40 Medical Decision Making Patient is a pleasant 60-year-old male presenting today with chief complaint of panic attacks. He states the panic attacks began yesterday but describes a longer period of feeling very anxious and on the verge of panic attack. He states he felt like he was in a constant state of panic attack for the past 24 hours. Endorses nausea and vomiting this morning, this is since subsided. States that he has been having chills. He denies any chest pain, palpitations, shortness of breath. He denies any suicidal or homicidal ideations. Denies any hallucinations. Denies any alcohol or illicit drug use. Patient does report that he typically takes amitriptyline but stopped taking this about 2 days ago because he felt that this may have been exacerbating some of his symptoms. He did speak with his psychiatrist today who recommended that he attempt to calm down further. He denies any trigger, acute change in social life. Past medical history is pertinent for COPD, type 2 diabetes, depression, PVD, diabetic neuropathy, NSTEMI. Patient is having persistent panic atttacks. He is not actively suicidal or homocidal. No hallucinations. Fair insight. As audra has had this for severe years, likely exacerbation. however, with the increasing symptoms and GI upset, plan to evaluate with baseline labs. Will give dose of Ativan to help with symptomatic management. He has psychologist, therapist, declines MH evaluation at this time. Will attempt to management symptoms and evaluate for underlying pathology as source. Labs reviewed. Patient has a white count 13.4. Anion gap elevated at 17. Kos 166 which appears to be baseline for the patient. Troponin within normal limits. Lipase within normal limits. Urine does not indicate infection. Reevaluated the patient. His anxiety appears much improved however, he appears more uncomfortable. Patient now diaphoretic. He continues to be afebrile. However, his abdominal exam she just increased discomfort, particularly in the left side along the end entire length. Concern for underlying pathology causing his increase anxiety. Will obtain CT of his abdomen for further evaluation. In particular, lipase is normal thus far. Intraperitoneal space: No free air. No significant fluid collection. Vasculature: Unremarkable. No abdominal aortic aneurysm. Lymph nodes: No enlarged lymph nodes. Urinary bladder: Unremarkable as visualized. Reproductive: Unremarkable as visualized. Bones/joints: Spinal degenerative changes. Mild lumbar levoscoliosis. Soft tissues: Unremarkable. IMPRESSION: 1. No acute intra-abdominal or pelvic process. 2. No generalized ileus or bowel obstruction. 3. Scattered colon diverticuli without evidence of diverticulitis.Intraperitoneal space: Unremarkable. No free air. No significant fluid collection. Vasculature: Atherosclerotic calcifications in abdominal aorta with areas of mild stenosis. No aneurysmal dilatation. Right external iliac artery stent in place and patent. Right femoral artery stent in place and appears to be completely occluded. Lymph nodes: Unremarkable. No enlarged lymph nodes. Urinary bladder: Unremarkable as visualized. Reproductive: Unremarkable as visualized. Bones/joints: Unremarkable. No acute fracture. Soft tissues: Unremarkable. Other findings: Colonic diverticulosis.No pericolonic inflammatory changes to suggest acute diverticulitis. IMPRESSION: 1. There appears to be mild diffuse wall thickening in portions of ascending, transverse, descending and sigmoid colon. Please correlate clinically for colitis. 2. 2.2 x 1.7 cm left adrenal mass lesion with attenuation value of 48 on postcontrast images. This lesion was reported as adenoma on prior study of 2018 and appears unchanged in size. No further follow-up is required. 3. Colonic diverticulosis.No pericolonic inflammatory changes to suggest acute diverticulitis. 4. Right external iliac artery stent in place and patent. Right femoral artery stent in place and appears to be completely occluded. Discussed his findings with the patient. His history exam is not consistent with the occluded stent being acute. Likely, this is a chronic finding. The colitis is consistent with the history that I am getting from the patient. Regarding his mental health, patient and I again discussed the his anxiety. It is imporved with dose of Ativan. He continues to deny any suicidal or homicidal ideation. He is now agreeable to discussion with mental health. Patient was evaluated by mental health. Mental health feels that the patient is safe to be discharged home with safety plan. She is also going to expedite a another medication appointment as well as therapy appointment. Patient was able to verbally consent to safety plan with mental health provider. During the patient's discussion with mental health, he did begin having increased anxiety, another half milligram of Ativan was given. Maurice has safety plan with . He feels safe to go home. Will take the medications as he has previously been prescribed. Safety plan printed and signed by patient. He feels safe to go home. He will be fit in with MH in the next few days and have daily phone calls and frequent check ins. In regard to the colitis, patient and I discussed treatment options. Encourraged hydration, he is hydrating well here. Advised BRAT diet and advancing slowly. Strict return precautions discussed for both his anxiety and colitis. Advised close f/u with PCP as well as MH. All of his questions and concerns were addressed, he is in agreement with this plan. [facility] General Date/Time Provider Initiated Documentation: 06/22/21 19:15. History of Present Illness 60 year old M presents to the emergency department with the chief complaint of panic attacks, described as severe and similar to prior episodes (has had panic attacks for several years), Quality is described as other (anxious, jittery), Patient started experiencing this day(s) (long standing, worsening recently, beomcing more consistent) and it has been intermittent. improves with No relieving factors improve symptom(s), Other factors that worsen symptoms (social stressors) . Patient notes nausea/vomiting; denies chest pain, cough, fever/chills, headaches, rash and shortness of breath. Patient did receive the following treatments prior to arrival, none Related Data Home Medications Medication Instructions Recorded Confirmed blood-glucose meter #1 each 07/27/19 06/29/21 lancets (Fingerstix Lancets) #100 each 07/27/19 06/29/21 nitroglycerin 0.4 mg sublingual 0.4 mg SL Q5-15M PRN #20 tab 07/27/19 06/29/21 tablet (Nitrostat) lisinopril 20 mg tablet 20 mg PO DAILY #90 cap 07/31/19 06/29/21 blood sugar diagnostic (Blood #100 each 05/02/20 06/29/21 Glucose Test) insulin lispro protamine-lispro 20 unit (0.2 mL) SC BID #10 ml 06/13/20 06/29/21 100 unit/mL (75-25) subcutaneous susp (Humalog Mix 75-25(U-100)Insuln) empagliflozin 25 mg tablet 25 mg PO DAILY #60 tab 07/31/20 06/29/21 (Jardiance) carvedilol 12.5 mg tablet 12.5 mg PO BID #60 tab 08/01/20 06/29/21 aspirin 81 mg chewable tablet 81 mg PO DAILY #180 tab 08/08/20 06/29/21 atorvastatin 80 mg tablet (Lipitor) 80 mg PO QPM #90 tab 08/08/20 06/29/21 clopidogrel 75 mg tablet 75 mg PO DAILY #90 tab 08/08/20 06/29/21 cyanocobalamin (vitamin B-12) 1,000 mcg PO DAILY #90 tab-cap 08/08/20 06/29/21 1,000 mcg tablet (Vitamin B-12) levothyroxine 50 mcg tablet 50 mcg PO DAILY #90 tab 08/08/20 06/29/21 (Synthroid) metformin 500 mg tablet 1,000 mg PO BID #360 tab 08/08/20 06/29/21 quetiapine 25 mg tablet (Seroquel) 25 - 50 mg PO QHS tab 01/06/21 06/29/21 amitriptyline 10 mg tablet 10 mg PO QHS #90 tab 02/12/21 06/29/21 pregabalin 200 mg capsule 200 mg PO TID #180 cap 04/02/21 06/29/21 insulin syringes (disposable) 1 mL #500 each 04/08/21 06/29/21 pantoprazole 40 mg tablet,delayed 40 mg PO DAILY #90 tab 04/08/21 06/29/21 release tramadol 50 mg tablet 50 mg PO TID PRN #90 tab 05/25/21 06/29/21 lorazepam 0.5 mg tablet 0.5 mg PO QHS PRN #3 tab 06/25/21 06/29/21 sertraline 50 mg tablet 150 mg PO DAILY tab 06/29/21 zolpidem 5 mg tablet (Ambien) 5 mg PO QHS PRN #3 tab 06/29/21 06/29/21 Previous Rx's Medication Instructions Recorded blood-glucose meter #1 each 07/27/19 lancets (Fingerstix Lancets) #100 each 07/27/19 nitroglycerin 0.4 mg sublingual 0.4 mg SL Q5-15M PRN #20 tab 07/27/19 tablet (Nitrostat) lisinopril 20 mg tablet 20 mg PO DAILY #90 cap 07/31/19 blood sugar diagnostic (Blood #100 each 05/02/20 Glucose Test) insulin lispro protamine-lispro 20 unit (0.2 mL) SC BID #10 ml 06/13/20 100 unit/mL (75-25) subcutaneous susp (Humalog Mix 75-25(U-100)Insuln) empagliflozin 25 mg tablet 25 mg PO DAILY #60 tab 07/31/20 (Jardiance) carvedilol 12.5 mg tablet 12.5 mg PO BID #60 tab 08/01/20 aspirin 81 mg chewable tablet 81 mg PO DAILY #180 tab 08/08/20 atorvastatin 80 mg tablet (Lipitor) 80 mg PO QPM #90 tab 08/08/20 clopidogrel 75 mg tablet 75 mg PO DAILY #90 tab 08/08/20 cyanocobalamin (vitamin B-12) 1,000 mcg PO DAILY #90 tab-cap 08/08/20 1,000 mcg tablet (Vitamin B-12) levothyroxine 50 mcg tablet 50 mcg PO DAILY #90 tab 08/08/20 (Synthroid) metformin 500 mg tablet 1,000 mg PO BID #360 tab 08/08/20 amitriptyline 10 mg tablet 10 mg PO QHS #90 tab 02/12/21 pregabalin 200 mg capsule 200 mg PO TID #180 cap 04/02/21 insulin syringes (disposable) 1 mL #500 each 04/08/21 pantoprazole 40 mg tablet,delayed 40 mg PO DAILY #90 tab 04/08/21 release tramadol 50 mg tablet 50 mg PO TID PRN #90 tab 05/25/21 lorazepam 0.5 mg tablet 0.5 mg PO QHS PRN #3 tab 06/25/21 zolpidem 5 mg tablet (Ambien) 5 mg PO QHS PRN #3 tab 06/29/21 Allergies Allergy/AdvReac Type Severity Reaction Status Date / Time venlafaxine HCl AdvReac Intermediate Increased Verified 06/29/21 16:45 [From Effexor] Blood Pressure General Stated Complaint: PsychEval BEN: 3 Review of Systems Constitutional Constitutional: Reports as per HPI, Denies chills, Denies fatigue, Denies fever(s), Denies headache(s) and Denies weakness Eyes Eyes: Denies change in vision ENT Ears, Nose, Mouth, and Throat: Denies headache(s) Cardiovascular Cardiovascular: Reports as per HPI, Denies chest pain, Denies lightheadedness, Denies dyspnea and Denies dyspnea on exertion Respiratory Respiratory: Reports as per HPI, Denies cough, Denies dyspnea and Denies dyspnea on exertion Gastrointestinal Gastrointestinal: Reports as per HPI Genitourinary Genitourinary: Denies system reviewed and no additional complaints, except as documented (denies any change in urinary habits) Musculoskeletal Musculoskeletal: Denies abnormal gait Integumentary/Breasts Skin/Breast: Reports as per HPI and Denies rash Neurologic Neurologic: Denies abnormal movements, Denies abnormal speech, Denies abnormal gait, Denies headache(s), Denies memory loss, Denies paresthesias and Denies weakness Psychiatric Psychiatric: Reports as per HPI, Reports anxiety, Denies depression, Denies auditory hallucinations, Denies memory loss, Reports mood swings, Reports panic attacks, Denies visual hallucinations, Denies hallucinations, Denies homicidal ideation and Denies suicidal ideation Endocrine Endocrine: Denies fatigue PFSH All Active Problems Anxiety (Chronic) Panic attacks (Acute) Colitis (Acute) Anxiety (Chronic) Anxiety (Chronic) Insomnia (Acute) Chronic knee pain (Acute) Problem with transportation (Acute) Knee pain, acute (Acute) Adenomatous colon polyp (Acute) Diverticulosis (Acute) Colon polyp (Acute) Atherosclerosis of [place] coronary artery (Acute) minimal obstruction Benign prostatic hyperplasia (Acute) Chronic obstructive lung disease (Acute 10/11/12) DM (diabetes mellitus), type 2, uncontrolled (Acute) Depressive disorder (Acute 10/11/12) Diverticulitis of colon (Acute 10/11/12) Gastroesophageal reflux disease with esophagitis (Acute) Generalized osteoarthritis (Acute 08/20/13) Hypercholesterolemia (Acute 03/24/02) Kidney stone (Acute) Peripheral vascular disease (Acute 02/17/15) Sensorineural hearing loss, bilateral (Acute 01/21/17) Smoker (Acute 08/20/13) Trochanteric bursitis of right hip (Acute) Trochanteric bursitis of left hip (Acute) Work on this with his exercises. The steroid shots are probably not helping his diabetes at all. Nor are they helping his blood pressure. Recommended he is use of NSAIDs. They raise brought blood pressure in some people. Diabetic neuropathy associated with type 2 diabetes mellitus (Chronic) Status post shoulder surgery (Acute 09/09/14) Left lower quadrant pain (Acute) Encounter for screening colonoscopy (Acute) NSTEMI (non-ST elevation myocardial infarction) (Acute) Medical History ASCVD (arteriosclerotic cardiovascular disease) Bipolar 1 disorder, mixed BPH (benign prostatic hyperplasia) COPD (chronic obstructive pulmonary disease) Depression Diverticulosis DM type 2 (diabetes mellitus, type 2) Generalized osteoarthritis GERD (gastroesophageal reflux disease) History of diverticulitis Kidney stones MELONIE and COPD overlap syndrome Peripheral neuropathy PVD (peripheral vascular disease) Tobacco abuse Surgical History Arthroscopy, Shoulder 05/08/14; DR. ADAMS; RIGHT Colectomy Colonoscopy - MAC Coronary Artery Bypass Gaft (CABG) History of angioplasty of peripheral vessel Right leg stent placed in groin Right upper thigh stent placed Family History Mother No problems noted. Father Heart disease Sister Depression Brother No problems noted. Brother Diabetes Heart disease Brother No problems noted. Maternal Grandmother Heart disease Stroke Social History Smoking/Tobacco Use Status: Current every day Tobacco Type: cigarettes Tobacco: How many years used: 45 Quit status: has quit before Second Hand Exposure: Yes Smoking risk assessment performed?: Yes Alcohol Intake: current Alcohol Intake frequency: a few times a month Alcohol type: hard liquor Drug use: Daily Substance use type: marijuana Caregiver/Support person: No Household members: none Communication Needs: Hard of Hearing Do you need help understanding health information?: Rarely Pets and animals: Yes Pets and animals: dog(s) Sexually active: No Do you think of yourself as: straight/heterosexual Current gender identity: male What is your relationship status?: How often do you talk on the phone with friends or family?: twice per week How often do you get together with friends or relatives?: decline to answer How often do you attend uatsdin or quaker services?: decline to answer Do you belong to any clubs or organized social groups?: no Panel score (0-1 are the most socially isolated patients): 0 What type of physical activity do you participate in: walking Duration: 15-30 minutes/day Frequency: 5-6 times per week Annita/Latter Day: No preference Special annita needs: No Seatbelt use: always Helmet use: Yes Helmet use: always Drive intox or ride w/intox shuttle van driver: No Do you feel safe at home: Yes Do you feel safe in your relationship?: Yes Exam Const General: cooperative, healthy appearing, comfortable, no acute distress, well developed, well groomed and anxious Nutritional Appearance: average body habitus and well nourished Orientation: alert and awake Eyes General: appearance normal, both eyes and all related structures Resp Effort & Inspection: normal respiratory effort, able to speak in complete sentences and no respiratory distress Auscultation: clear to auscultation bilaterally, no rales, no rhonchi and no wheezes Cardio Rate: regular rate Rhythm: regular rhythm Heart Sounds: S1 normal and S2 normal Skin General skin exam: no rashes or lesions noted Trauma: no lacerations or abrasions Neuro General: patient alert and patient awake Cognition: normal cognition Speech: speech normal Gait: normal gait Psych Appearance: grossly normal and well kempt Mental Status: mental status grossly normal Speech and Movement: speech and movement normal Mood: anxious mood Affect: anxious affect Attitude: cooperative Thought Process: normal Thought Content: normal, no hallucinations, no homicidality and suicidality Insight: fair Judgment: fair Course Vital Signs Vital signs: Vital Signs Temperature 36.7 C 06/22/21 19:19 Pulse 82 06/22/21 19:19 Respiratory Rate 20 06/22/21 19:19 Blood Pressure 139/77 06/22/21 19:19 Pulse Oximetry 98 06/22/21 19:19 Temperature 36.7 C 06/22/21 19:19 Temperature Source Temporal Artery Scan 06/22/21 19:19 Pulse 82 06/22/21 19:19 Respiratory Rate 20 06/22/21 19:19 Respiratory Effort 06/22/21 19:24 Blood Pressure 139/77 06/22/21 19:19 Blood Pressure Position Standing 06/22/21 19:19 Pulse Oximetry 98 06/22/21 19:19 Oxygen Delivery Method Room Air 06/22/21 19:19 Oxygen Flow Rate 0 06/22/21 19:19 PAWSS Have you Been Recently Intoxicated or Drunk Within the Last 30 days?: No Have you Ever Experienced Previous Episodes of Alcohol Withdrawal?: No Have you ever Experienced Withdrawal Seizures?: No Have you ever Experienced Delirium Tremens(DT)s?: No Have you ever undergone Alcohol Rehabilitation Treatment (i.e, inpt ot outpatient treatment programs)?: No Have you ever Experienced Blackouts?: No Have you ever Combined Alcohol with other Downers within the last 90 days?: No Have you ever Combined Alcohol with any other Substance of Abuse during the last 90 days?: No Positive Blood Alcohol level on Presentation? [PCS.BAL]: No Evidence of Increased Autonomic Activity (i.e. HR>120, tremor, sweating, agitation, nausea)?: No Result: 0
[2021-06-22] MEDS: LORazepam 2 MG/ML VIAL 0.5 MG IVP (20:16)
[2021-06-22] MEDS: Normal Saline 1,000 ML 1000 ML IV (20:17)
[2021-06-22 20:18] LABS: Abs Immature Grans 0.12 10^3/uL (0.0-0.06); Absolute Eosinophil Count 0.03 10^3/uL (0.0-0.7); Absolute Monocyte Count 1.05 10^3/uL (0.1-0.8); Basophils % 0.4; Eosinophils % 0.2; HCT 48.3 % (40.0-50.0); HGB 15.7 g/dL (13.5-17.5); Immature Grans % 0.9; Lymphocytes % 26.8; MCH 30.1 pg (27.0-33.0); MCHC 32.5 % (32.0-36.0); MCV 92.7 fL (80-95); MPV 11.5 fL (8.0-11.0); Monocytes % 7.8; Neutrophils % 63.9; Nucleated RBC 0 %; Platelet Count 245 10^3/uL (130-400); RBC 5.21 10^6/uL (4.36-5.78); RDW 14.5 % (11.8-14.1); RDW-SD 49.3 fL; WBC 13.45 10^3/uL (4.4-10.8)
[2021-06-22 20:21] LABS: Absolute Basophil Count 0.05 10^3/uL (0.0-0.2); Absolute Neutrophil Count 8.59 10^3/uL (1.2-6.7)
[2021-06-22 20:34] LABS: ALT 25 U/L (16-63); AST 34 U/L (15-37); Albumin 4.3 g/dL (3.4-5.0); Alkaline Phosphatase 124 U/L (46-116); Anion Gap 17.1 mmol/L (3-11); BUN 19 mg/dL (7-18); Bilirubin, Total 0.2 mg/dL (0.2-1.0); CO2 22.9 mmol/L (21.0-32.0); Calcium 9.7 mg/dL (8.5-10.1); Chloride 100 mmol/L (98-107); Glucose 166 mg/dL (74-106); Lipase 46 U/L (73-393); Potassium 3.7 mmol/L (3.5-5.1); Sodium 140 mmol/L (136-145); Total Protein 9.1 g/dL (6.4-8.2)
[2021-06-22 20:39] LABS: Troponin I < 50 ng/L (<or=60)
[2021-06-22 21:10] LABS: Bilirubin Negative (Negative); Blood Trace-intact (Negative); Clarity Clear (Clear); Glucose >=1000 mg/dL (Negative); Ketones Trace mg/dL (Negative); Leukocyte Esterase Negative (Negative); Nitrite Negative (Negative); Specific Gravity >= 1.030 (1.005-1.025); Urobilinogen 0.2 EU/dL (Up TO 0.2); pH 5.5 (5-8)
[2021-06-22 21:16] LABS: Bacteria Few HPF (Negative); C & S Indicated? No; Casts Negative LPF (Negative); Crystals Negative HPF (Negative); Epithelial Cells Few HPF (Negative); Mucus Trace (Negative); RBC 0-2 HPF (0-2)
--- NOTE | 2021-06-22 21:30 | DI.CT_ITS ---
Exam(s) CT ABDOMEN PELVIS W EXAM: CT ABDOMEN PELVIS W CLINICAL HISTORY: left sided abdominal pain TECHNIQUE: Imaging Protocol: Axial computed tomography images with coronal and sagittal reformatted images were created and reviewed CONTRAST MATERIAL: Intravenous: Omnipaque 350 Contrast volume:100 mL Oral: No COMPARISON: CT ABD PELVIS WITH CONTRAST from 10/21/2009 CT RENAL COLIC WO CONTRAST from 08/01/[address] ABDOMEN PELVIS W from 10/03/2019 FINDINGS: The examination is limited due to patient motion artifact. ABDOMEN: Lung Bases: Mild dependent atelectasis. Liver: There are tiny hypodensities in the liver. They are too small for further characterization bu t likely reflect small cysts. No suspicious mass. Normal density. Portal, Superior Mesenteric, and Splenic Veins: Unremarkable. Gallbladder and Biliary Tract: No radiodense calculus or dilation. Pancreas: Normal density, no abnormal calcifications or inflammatory process. Spleen: Normal. Adrenals: There is a stable left adrenal nodule. No follow-up is recommended. The right adrenal gland is unremarkable. Kidneys: Normal size, contour and axis. No radiodense stones or obstructive uropathy. There is stable bilateral renal cysts. No follow-up is recommended. Abdominal Aorta: Abdominal portion non-dilated. Atherosclerosis. There is a right common and external iliac artery stent. The proximal portion of a right femoral artery stent is noted. It appears to be occluded. Bowel: No evidence of bowel obstruction. The colon is incompletely distended limiting evaluation. The re is however no pericolonic inflammatory change. No evidence of appendicitis. There is diverticulosi s seen in the colon but no evidence of acute diverticulitis. Anastomotic clips are seen in the mid si gmoid colon. Peritoneal Cavity: No ascites, collection or mesenteric inflammatory response. No free air. Lymph Nodes: Within normal limits. Bones: Within normal limits for the patient's age. Soft Tissues: There is a fat containing left inguinal hernia. PELVIS: Bladder: The urinary bladder is incompletely distended limiting evaluation. No gross abnormalities id entified. Reproductive Organs: Enlarged prostate gland. Lymph Nodes: Within normal limits. Bones: Within normal limits for the patient's age. IMPRESSION: 1. No definite acute abdominal pelvic process. 2. Incomplete distension of the colon limiting evaluation. No pericolonic inflammatory changes are se en to suggest an infectious or inflammatory process. Please correlate clinically. 3. Right femoral artery stent which appears to be occluded. RADIATION DOSE DELIVERED: 819.89mGy.cm Total DLP DATA REPOSITORY: All CT scans at this facility are submitted to the National Radiology Data Registry (NRDR) Dose Index Registry (DIR) with the [employer] (ACR). RADIATION OPTIMIZATION: All CT scans at this facility use at least one of these dose optimization te chniques: automated exposure control; mA and/or kV adjustment per patient size (includes targeted exa ms where dose is matched to clinical indication); or iterative reconstruction.
[2021-06-22 21:41] VITALS: TEMP 36.8
[2021-06-22] MEDS: Omnipaque 350 MG/ML 100 ML BTL IJ (21:54)
[2021-06-22] MEDS: Normal Saline Flush 10 ML SYR IVP (21:55)
--- NOTE | 2021-06-22 23:06 | DI.VRAD_ITS ---
PROCEDURE INFORMATION: Exam: CT Abdomen And Pelvis With Contrast Exam date and time: 06/22/2021 9:39 PM Age: 60 years old Clinical indication: Localized; Prior surgery; Surgery date: 6+ months; Surgery type: Colectomy, angioplasty; Patient HX: Left sided abdominal pain TECHNIQUE: Imaging protocol: Computed tomography of the abdomen and pelvis with contrast. Radiation optimization: All CT scans at this facility use at least one of these dose optimization techniques: automated exposure control; mA and/or kV adjustment per patient size (includes targeted exams where dose is matched to clinical indication); or iterative reconstruction. Contrast material: OMNIPAQUE 350; Contrast volume: 100 ml; Contrast route: INTRAVENOUS (IV); COMPARISON: CT ABDOMEN PELVIS W 10/03/2019 10:15 AM FINDINGS: Lungs: Bilateral lung base dependent atelectasis. Liver: 6 mm simple appearing cyst in right lobe of liver. No interval change compared to prior study. Gallbladder and bile ducts: Normal. No calcified stones. No ductal dilation. Pancreas: Normal. No ductal dilation. Spleen: Normal. No splenomegaly. Adrenal glands: 2.2 x 1.7 cm left adrenal mass lesion with attenuation value of 48 on postcontrast images. Kidneys and ureters: Normal. No hydronephrosis. Stomach and bowel: Surgical changes for colectomy with anastomotic sutures in sigmoid colon. There appears to be mild diffuse wall thickening in portions of ascending, transverse, descending and sigmoid colon. No wall thickening in the small bowel. No evidence of small bowel obstruction. Appendix: No evidence of appendicitis. Intraperitoneal space: Unremarkable. No free air. No significant fluid collection. Vasculature: Atherosclerotic calcifications in abdominal aorta with areas of mild stenosis. No aneurysmal dilatation. Right external iliac artery stent in place and patent. Right femoral artery stent in place and appears to be completely occluded. Lymph nodes: Unremarkable. No enlarged lymph nodes. Urinary bladder: Unremarkable as visualized. Reproductive: Unremarkable as visualized. Bones/joints: Unremarkable. No acute fracture. Soft tissues: Unremarkable. Other findings: Colonic diverticulosis.No pericolonic inflammatory changes to suggest acute diverticulitis. IMPRESSION: 1. There appears to be mild diffuse wall thickening in portions of ascending, transverse, descending and sigmoid colon. Please correlate clinically for colitis. 2. 2.2 x 1.7 cm left adrenal mass lesion with attenuation value of 48 on postcontrast images. This lesion was reported as adenoma on prior study of 2018 and appears unchanged in size. No further follow-up is required. 3. Colonic diverticulosis.No pericolonic inflammatory changes to suggest acute diverticulitis. 4. Right external iliac artery stent in place and patent. Right femoral artery stent in place and appears to be completely occluded. Dictated and Authenticated by: Lyn Morocho MD. Ordering:DRISS Moncada MD
--- NOTE | 2021-06-22 23:52 | NUR.NOTE ---
Nursing Note: pt talking with mental health
[2021-06-23 00:37] VITALS: BP 173/85; PULSE 72; RESP 20; TEMP 36.6; O2SAT 96
--- NOTE | 2021-06-23 16:10 | PDOC.MHCN ---
Date of service: 06/22/21 Time of Service: 22:30 Mental Health Crisis Note Presenting Issue How did you arrive at the ED and why did you come: Client arrived to ED via self for panic attacks. Precipitating Factors Client is denying SI/HI/NSSI. Disposition BEHAVIOR: Client appeared to be anxious. He struggled to stay still, paced throughout the assessment and reports that he was feeling hot flashes. Client became tearful during assessment. EYE CONTACT: Client made great eye contact. MOOD: Client describes his mood as scared, reporting that the panic attack he had this morning was worse than he has ever experienced. AFFECT: Normal. APPETITE: Client reports his appetite is okay. SLEEP(trouble falling/staying asleep: Sleep was not assessed at this time. Plan Client is not endosring SI/HI/NSSI. He was able to safety plan home, and made follow up appointments with his med provider and therapist. Signature Clinician's Name/Title: Alycia Mejía, ESC
== END 2021-06-23 00:40 | disposition home or self-care (01) ==
PROVIDERS: Emergency Provider Physician Assistant; PCP Nurse Practitioner Family
DX: F41.0 Panic disorder [episodic paroxysmal anxiety] (principal); K52.89 Other specified noninfective gastroenteritis and colitis; F41.9 Anxiety disorder, unspecified
CPT/HCPCS: 80053; 83690; 93005; 96361; 96374; 99285; 74177; 80320; 80329; 81003; 81015; 84443; 84484; 85025; 93010; 99284; J2060; J3490

== ENCOUNTER 2021-06-23 12:56 | Emergency (ER) | payer MEDICARE, SELFPAY ==
[2021-06-23 13:06] VITALS: BP 152/78; PULSE 80; RESP 18; TEMP 36.9; O2SAT 96
[2021-06-23 13:12] VITALS: RESP 18
--- NOTE | 2021-06-23 13:50 | ED.GENADUL_ITS ---
Discharge Plan Disposition Patient Disposition: HOME Condition: Improving Discharge Details Clinical Impression: Anxiety Primary Care Provider: Lazarus Lugo ED Provider: Femi Ba Home Meds and New Rx's Prescriptions: Continued lisinopril 20 mg tablet 20 mg PO DAILY Qty: 90 3RF (DME) blood-glucose meter Kit See Dose Instructions .ROUTE .MEDSUPPLY Qty: 1 0RF Dose Instruction: As directed Rx Instructions: twice daily (one touch ultra blue) (DME) lancets [Fingerstix Lancets] Misc See Dose Instructions .ROUTE .MEDSUPPLY Qty: 100 1RF Dose Instruction: As directed Rx Instructions: twice daily (one touch ultra blue) sertraline 50 mg tablet 50 mg PO DAILY Qty: 90 3RF nitroglycerin [Nitrostat] 0.4 mg tablet, sublingual 0.4 mg SL Q5-15M PRN (Reason: chest pain) Qty: 20 5RF Rx Instructions: until response; do not exceed 3 doses per episode (DME) Blood Glucose Test Strip See Dose Instructions .ROUTE .MEDSUPPLY Qty: 100 1RF Dose Instruction: As directed Rx Instructions: twice daily ( ONE TOUCH ULTRA BLUE) Humalog Mix 75-25(U-100)Insuln 100 unit/mL (75-25) suspension 20 unit SC BID Qty: 10 6RF Rx Instructions: PER SLIDING SCALE Jardiance 25 mg tablet 25 mg PO DAILY Qty: 60 6RF Hold Instructions: cannot afford checking other sources carvedilol 12.5 mg tablet 12.5 mg PO BID Qty: 60 11RF Rx Instructions: must administer with a meal/food cyanocobalamin (vitamin B-12) [Vitamin B-12] 1,000 mcg tablet 1,000 mcg PO DAILY Qty: 90 3RF aspirin 81 mg tablet,chewable 81 mg PO DAILY Qty: 180 3RF atorvastatin [Lipitor] 80 mg tablet 80 mg PO QPM Qty: 90 3RF clopidogrel 75 mg tablet 75 mg PO DAILY Qty: 90 3RF levothyroxine [Synthroid] 50 mcg tablet 50 mcg PO DAILY Qty: 90 3RF Label Comments: PT states the dose has been increased to 1 full tablet metformin 500 mg tablet 1,000 mg PO BID Qty: 360 3RF quetiapine [Seroquel] 25 mg tablet 25 - 50 mg PO QHS 0RF amitriptyline 10 mg tablet 10 mg PO QHS Qty: 90 3RF pregabalin 200 mg capsule 200 mg PO TID Qty: 180 3RF (DME) insulin syringes (disposable) 1 mL syringe See Dose Instructions .ROUTE .MEDSUPPLY Qty: 500 3RF Dose Instruction: As directed Rx Instructions: Twice daily pantoprazole 40 mg tablet,delayed release (DR/EC) 40 mg PO DAILY Qty: 90 2RF tramadol 50 mg tablet 50 mg PO TID PRN (Reason: pain) Qty: 90 0RF Discharge Instructions Instructions: Anxiety (ED) Additional Instructions: Please be seen by your primary care physician. Please follow safety plan. Return to the emergency department for any worsening symptomatology specifically if you have thoughts of harming yourself or others or cannot get your symptoms under control. Your medications as prescribed. Medical Decision Making 60-year-old male history of diabetes coronary disease, anxiety presents with symptoms of panic attack, anxiety, jitteriness, intermittent tremors, no other neurologic symptomatology such as weakness numbness trouble speaking or ataxia, denies SI or HI, afebrile nontoxic no respiratory distress, recently diagnosed with colitis. No nausea no vomiting. Patient endorses that this feels just like his prior panic attacks. No drug use or alcohol use per patient; likely panic attack versus less likely alcohol withdrawal given history and physical versus less likely systemic infection. Was noted to be hyperglycemic last night, will recheck fingerstick, will check UA and U tox, trial of Ativan close reassessment. Patient does not seem to be in acute crisis and is not a harm to himself or others. If reevaluation and testing is normal consider discharge home with follow-up as he had a safety plan made last night 14: 39 patient resting comfortably no acute distress. Feeling much better after meds. Urinalysis improved from last night. No SI no HI. Friend is coming to pick him up. Has safety plan and follow-up as an outpatient. HPI General Date/Time Provider Initiated Documentation: 06/23/21 13:08 . HPI Narrative: 60-year-old male history of coronary disease, anxiety, diabetes, presents with anxiety sensation of jitteriness restlessness and poor sleep over the past several days, was seen here last night diagnosed with colitis, also was treated for panic attack, endorses a medication last night he will, however when he got home he felt persistent anxiety. Denies chest pain shortness of breath nausea or vomiting. Denies alcohol use or drug use. Related Data Home Medications Medication Instructions Recorded Confirmed blood-glucose meter #1 each 07/27/19 06/23/21 lancets (Fingerstix Lancets) #100 each 07/27/19 06/23/21 nitroglycerin 0.4 mg sublingual 0.4 mg SL Q5-15M PRN #20 tab 07/27/19 06/23/21 tablet (Nitrostat) sertraline 50 mg tablet 50 mg PO DAILY #90 tab 07/27/19 06/23/21 lisinopril 20 mg tablet 20 mg PO DAILY #90 cap 07/31/19 06/23/21 blood sugar diagnostic (Blood #100 each 05/02/20 06/23/21 Glucose Test) insulin lispro protamine-lispro 20 unit (0.2 mL) SC BID #10 ml 06/13/20 06/23/21 100 unit/mL (75-25) subcutaneous susp (Humalog Mix 75-25(U-100)Insuln) empagliflozin 25 mg tablet 25 mg PO DAILY #60 tab 07/31/20 06/23/21 (Jardiance) carvedilol 12.5 mg tablet 12.5 mg PO BID #60 tab 08/01/20 06/23/21 aspirin 81 mg chewable tablet 81 mg PO DAILY #180 tab 08/08/20 06/23/21 atorvastatin 80 mg tablet (Lipitor) 80 mg PO QPM #90 tab 08/08/20 06/23/21 clopidogrel 75 mg tablet 75 mg PO DAILY #90 tab 08/08/20 06/23/21 cyanocobalamin (vitamin B-12) 1,000 mcg PO DAILY #90 tab-cap 08/08/20 06/23/21 1,000 mcg tablet (Vitamin B-12) levothyroxine 50 mcg tablet 50 mcg PO DAILY #90 tab 08/08/20 06/23/21 (Synthroid) metformin 500 mg tablet 1,000 mg PO BID #360 tab 08/08/20 06/23/21 quetiapine 25 mg tablet (Seroquel) 25 - 50 mg PO QHS tab 09/14/21 03/01/22 amitriptyline 10 mg tablet 10 mg PO QHS #90 tab 02/12/21 06/23/21 pregabalin 200 mg capsule 200 mg PO TID #180 cap 04/02/21 06/23/21 insulin syringes (disposable) 1 mL #500 each 04/08/21 06/23/21 pantoprazole 40 mg tablet,delayed 40 mg PO DAILY #90 tab 04/08/21 06/23/21 release tramadol 50 mg tablet 50 mg PO TID PRN #90 tab 05/25/21 06/23/21 Previous Rx's Medication Instructions Recorded blood-glucose meter #1 each 07/27/19 lancets (Fingerstix Lancets) #100 each 07/27/19 nitroglycerin 0.4 mg sublingual 0.4 mg SL Q5-15M PRN #20 tab 07/27/19 tablet (Nitrostat) sertraline 50 mg tablet 50 mg PO DAILY #90 tab 07/27/19 lisinopril 20 mg tablet 20 mg PO DAILY #90 cap 07/31/19 blood sugar diagnostic (Blood #100 each 05/02/20 Glucose Test) insulin lispro protamine-lispro 20 unit (0.2 mL) SC BID #10 ml 06/13/20 100 unit/mL (75-25) subcutaneous susp (Humalog Mix 75-25(U-100)Insuln) empagliflozin 25 mg tablet 25 mg PO DAILY #60 tab 07/31/20 (Jardiance) carvedilol 12.5 mg tablet 12.5 mg PO BID #60 tab 08/01/20 aspirin 81 mg chewable tablet 81 mg PO DAILY #180 tab 08/08/20 atorvastatin 80 mg tablet (Lipitor) 80 mg PO QPM #90 tab 08/08/20 clopidogrel 75 mg tablet 75 mg PO DAILY #90 tab 08/08/20 cyanocobalamin (vitamin B-12) 1,000 mcg PO DAILY #90 tab-cap 08/08/20 1,000 mcg tablet (Vitamin B-12) levothyroxine 50 mcg tablet 50 mcg PO DAILY #90 tab 08/08/20 (Synthroid) metformin 500 mg tablet 1,000 mg PO BID #360 tab 08/08/20 amitriptyline 10 mg tablet 10 mg PO QHS #90 tab 02/12/21 pregabalin 200 mg capsule 200 mg PO TID #180 cap 04/02/21 insulin syringes (disposable) 1 mL #500 each 04/08/21 pantoprazole 40 mg tablet,delayed 40 mg PO DAILY #90 tab 04/08/21 release tramadol 50 mg tablet 50 mg PO TID PRN #90 tab 05/25/21 Allergies Allergy/AdvReac Type Severity Reaction Status Date / Time venlafaxine HCl AdvReac Intermediate Increased Verified 06/23/21 13:11 [From Effexor] Blood Pressure General Stated Complaint: Anxiety BEN: 4 Review of Systems Narrative: Review of Systems Constitutional: negative Eyes: negative ENT: negative Cardiovascular: negative Respiratory: negative Gastrointestinal: negative : negative Musculoskeletal: negative Skin: negative Neurologic: negative Psych: Anxiety PFSH All Active Problems (Updated 06/23/21 @ 14:39 by Femi Ba MD) Anxiety (Chronic) Panic attacks (Acute) Colitis (Acute) Anxiety (Chronic) Chronic knee pain (Acute) Problem with transportation (Acute) Knee pain, acute (Acute) Adenomatous colon polyp (Acute) Diverticulosis (Acute) Colon polyp (Acute) Atherosclerosis of [place] coronary artery (Acute) minimal obstruction Benign prostatic hyperplasia (Acute) Chronic obstructive lung disease (Acute 10/11/12) DM (diabetes mellitus), type 2, uncontrolled (Acute) Depressive disorder (Acute 10/11/12) Diverticulitis of colon (Acute 10/11/12) Gastroesophageal reflux disease with esophagitis (Acute) Generalized osteoarthritis (Acute 08/20/13) Hypercholesterolemia (Acute 03/24/02) Kidney stone (Acute) Peripheral vascular disease (Acute 02/17/15) Sensorineural hearing loss, bilateral (Acute 01/21/17) Smoker (Acute 08/20/13) Trochanteric bursitis of right hip (Acute) Trochanteric bursitis of left hip (Acute) Work on this with his exercises. The steroid shots are probably not helping his diabetes at all. Nor are they helping his blood pressure. Recommended he is use of NSAIDs. They raise brought blood pressure in some people. Diabetic neuropathy associated with type 2 diabetes mellitus (Chronic) Status post shoulder surgery (Acute 09/09/14) Left lower quadrant pain (Acute) Encounter for screening colonoscopy (Acute) NSTEMI (non-ST elevation myocardial infarction) (Acute) Medical History (Updated 06/23/21 @ 14:39 by Femi Ba MD) ASCVD (arteriosclerotic cardiovascular disease) Bipolar 1 disorder, mixed BPH (benign prostatic hyperplasia) COPD (chronic obstructive pulmonary disease) Depression Diverticulosis DM type 2 (diabetes mellitus, type 2) Generalized osteoarthritis GERD (gastroesophageal reflux disease) History of diverticulitis Kidney stones MELONIE and COPD overlap syndrome Peripheral neuropathy PVD (peripheral vascular disease) Tobacco abuse Surgical History (Updated 10/12/19 @ 12:26 by Heavenly Lutz RN) Arthroscopy, Shoulder 05/08/14; DR. ADAMS; RIGHT Colectomy Colonoscopy - MAC Coronary Artery Bypass [place] (CABG) History of angioplasty of peripheral vessel Right leg stent placed in groin Right upper thigh stent placed Family History Mother No problems noted. Father Heart disease Sister Depression Brother No problems noted. Brother Diabetes Heart disease Brother No problems noted. Maternal Grandmother Heart disease Stroke Social History (Updated 10/15/20 @ 13:55 by Yris Graham) Smoking/Tobacco Use Status: Current every day Tobacco Type: cigarettes Tobacco: How many years used: 45 Quit status: has quit before Second Hand Exposure: Yes Smoking risk assessment performed?: Yes Alcohol Intake: current Alcohol Intake frequency: a few times a month Alcohol type: hard liquor Drug use: Daily Substance use type: marijuana Caregiver/Support person: No Household members: none Communication Needs: Hard of Hearing Do you need help understanding health information?: Rarely Pets and animals: Yes Pets and animals: dog(s) Sexually active: No Do you think of yourself as: straight/heterosexual Current gender identity: male What is your relationship status?: How often do you talk on the phone with friends or family?: twice per week How often do you get together with friends or relatives?: decline to answer How often do you attend buddhist or shinto services?: decline to answer Do you belong to any clubs or organized social groups?: no Panel score (0-1 are the most socially isolated patients): 0 What type of physical activity do you participate in: walking Duration: 15-30 minutes/day Frequency: 5-6 times per week Annita/Buddhism: No preference Special annita needs: No Seatbelt use: always Helmet use: Yes Helmet use: always Drive intox or ride w/intox vacuum truck driver: No Do you feel safe at home: Yes Do you feel safe in your relationship?: Yes Exam Narrative Exam Narrative: Physical Examination General: alert, awake, cooperative, resting comfortably, no acute distress HEENT: normocephalic, atraumatic; PERRL, EOM intact, conjunctiva normal; no nasal discharge; moist mucous membranes, oral and pharyngeal mucosa normal, tolerating secretions Neck: supple, trachea midline; full ROM Chest: normal to inspection Respiratory: normal respiratory effort, speaking in full sentences, clear to auscultation, no wheezing, rales or rhonchi Cardiac: regular rate, regular rhythm, S1S2 intact, no murmurs rubs or gallops GI: abdomen soft, non-tender, non-distended; no palpable mass or hepatosplenomegaly Skin: no lesions, rashes or trauma appreciated Neuro: AAOx3, normal speech, moving all extremities Psych: Mildly anxious however appropriate, interactive no SI no HI, no evidence of delusions or hallucinations Course Vital Signs Vital signs: Vital Signs Temperature 36.9 C 06/23/21 13:06 Pulse 80 06/23/21 13:06 Respiratory Rate 18 06/23/21 13:06 Blood Pressure 152/78 H 06/23/21 13:06 Pulse Oximetry 96 06/23/21 13:06 Temperature 36.9 C 06/23/21 13:06 Temperature Source Oral 06/23/21 13:06 Pulse 80 06/23/21 13:06 Respiratory Rate 18 06/23/21 13:12 Respiratory Effort Non-Labored 06/23/21 13:12 Respiratory Depth Normal 06/23/21 13:12 Respiratory Pattern Normal 06/23/21 13:12 Blood Pressure 152/78 H 06/23/21 13:06 Blood Pressure Position Supine 06/23/21 13:06 Pulse Oximetry 96 06/23/21 13:06 Oxygen Delivery Method Room Air 06/23/21 13:06 Oxygen Flow Rate 0 06/23/21 13:06 Pain Level 0 06/23/21 13:06 PAWSS Have you Been Recently Intoxicated or Drunk Within the Last 30 days?: No Have you Ever Experienced Previous Episodes of Alcohol Withdrawal?: No Have you ever Experienced Withdrawal Seizures?: No Have you ever Experienced Delirium Tremens(DT)s?: No Have you ever undergone Alcohol Rehabilitation Treatment (i.e, inpt ot outpatient treatment programs)?: No Have you ever Experienced Blackouts?: No Have you ever Combined Alcohol with other Downers within the last 90 days?: No Have you ever Combined Alcohol with any other Substance of Abuse during the last 90 days?: No Positive Blood Alcohol level on Presentation? [PCS.BAL]: No Evidence of Increased Autonomic Activity (i.e. HR>120, tremor, sweating, agitation, nausea)?: No Result: 0
[2021-06-23] MEDS: LORazepam 1 MG TAB PO (13:54)
[2021-06-23 14:09] LABS: Bilirubin Negative (Negative); Blood Trace-intact (Negative); Clarity Clear (Clear); Glucose 500 mg/dL (Negative); Ketones Negative (Negative); Leukocyte Esterase Negative (Negative); Nitrite Negative (Negative); Specific Gravity 1.025 (1.005-1.025); Urobilinogen 0.2 EU/dL (Up TO 0.2)
[2021-06-23 14:17] LABS: Bacteria Negative HPF (Negative); C & S Indicated? No; Casts 3-5 Hyaline LPF (Negative); Crystals Negative HPF (Negative); Epithelial Cells Rare HPF (Negative); Mucus Trace (Negative); RBC 0-2 HPF (0-2); WBC Negative HPF (0-5)
[2021-06-23 14:44] LABS: *AMPHETAMINES SCREEN URINE Negative (Negative); *BARBITURATES SCREEN URINE Negative (Negative); *BENZODIAZEPINES SCREEN URINE Negative (Negative); Cannabinoids THC Positive (Negative); Cocaine Screen,Urine Negative (Negative); METHADONE URINE SCREEN Negative (Negative); OPIATES URINE SCREEN Negative (Negative)
[2021-06-23 14:47] LABS: Tricyclic Antidepressants Negative (Negative)
[2021-06-23 14:51] VITALS: BP 140/76; PULSE 72; RESP 16; O2SAT 97
== END 2021-06-23 14:50 | disposition home or self-care (01) ==
PROVIDERS: Emergency Provider Emergency Medicine; PCP Nurse Practitioner Family
DX: F41.9 Anxiety disorder, unspecified (principal); E11.9 Type 2 diabetes mellitus without complications; Z79.899 Other long term (current) drug therapy
CPT/HCPCS: 36416; 80307; 82962; 99283; 81003; 81015

== ENCOUNTER 2021-06-25 17:30 | Emergency (ER) | payer MEDICARE, SELFPAY ==
[2021-06-25 17:34] VITALS: BP 154/78; PULSE 78; RESP 18; TEMP 36.6; O2SAT 98
--- NOTE | 2021-06-25 17:57 | ED.GENADUL_ITS ---
Discharge Plan Disposition Patient Disposition: HOME Condition: Stable Discharge Details Clinical Impression: Anxiety, Insomnia Primary Care Provider: Lazarus Lugo ED Provider: Shruti Munguia Home Meds and New Rx's Prescriptions: New lorazepam 0.5 mg tablet 0.5 mg PO QHS PRN (Reason: sleep) Qty: 3 0RF Rx Instructions: Take one tablet before bedtime as needed for trouble sleeping. Continued lisinopril 20 mg tablet 20 mg PO DAILY Qty: 90 3RF (DME) blood-glucose meter Kit See Dose Instructions .ROUTE .MEDSUPPLY Qty: 1 0RF Dose Instruction: As directed Rx Instructions: twice daily (one touch ultra blue) (DME) lancets [Fingerstix Lancets] Misc See Dose Instructions .ROUTE .MEDSUPPLY Qty: 100 1RF Dose Instruction: As directed Rx Instructions: twice daily (one touch ultra blue) sertraline 50 mg tablet 50 mg PO DAILY Qty: 90 3RF nitroglycerin [Nitrostat] 0.4 mg tablet, sublingual 0.4 mg SL Q5-15M PRN (Reason: chest pain) Qty: 20 5RF Rx Instructions: until response; do not exceed 3 doses per episode (DME) Blood Glucose Test Strip See Dose Instructions .ROUTE .MEDSUPPLY Qty: 100 1RF Dose Instruction: As directed Rx Instructions: twice daily ( ONE TOUCH ULTRA BLUE) Humalog Mix 75-25(U-100)Insuln 100 unit/mL (75-25) suspension 20 unit SC BID Qty: 10 6RF Rx Instructions: PER SLIDING SCALE Jardiance 25 mg tablet 25 mg PO DAILY Qty: 60 6RF Hold Instructions: cannot afford checking other sources carvedilol 12.5 mg tablet 12.5 mg PO BID Qty: 60 11RF Rx Instructions: must administer with a meal/food cyanocobalamin (vitamin B-12) [Vitamin B-12] 1,000 mcg tablet 1,000 mcg PO DAILY Qty: 90 3RF aspirin 81 mg tablet,chewable 81 mg PO DAILY Qty: 180 3RF atorvastatin [Lipitor] 80 mg tablet 80 mg PO QPM Qty: 90 3RF clopidogrel 75 mg tablet 75 mg PO DAILY Qty: 90 3RF levothyroxine [Synthroid] 50 mcg tablet 50 mcg PO DAILY Qty: 90 3RF Label Comments: PT states the dose has been increased to 1 full tablet metformin 500 mg tablet 1,000 mg PO BID Qty: 360 3RF quetiapine [Seroquel] 25 mg tablet 25 - 50 mg PO QHS 0RF amitriptyline 10 mg tablet 10 mg PO QHS Qty: 90 3RF pregabalin 200 mg capsule 200 mg PO TID Qty: 180 3RF (DME) insulin syringes (disposable) 1 mL syringe See Dose Instructions .ROUTE .MEDSUPPLY Qty: 500 3RF Dose Instruction: As directed Rx Instructions: Twice daily pantoprazole 40 mg tablet,delayed release (DR/EC) 40 mg PO DAILY Qty: 90 2RF tramadol 50 mg tablet 50 mg PO TID PRN (Reason: pain) Qty: 90 0RF Discharge Instructions Instructions: Insomnia (ED), Anxiety (ED) Additional Instructions: Please take the Ativan as prescribed. Take it 20 to 30 minutes before bedtime. A prescription for Ativan was also sent to the pharmacy on file for 3 tablets as needed for sleep. Please take your normal medications as previously prescribed. Call your PCP tomorrow and follow-up with mental health as discussed today. Please only call 911 or present to the emergency department for any thoughts of suicidal ideation or homicidal ideation. Follow up with primary care provider in 1-2 days. Return to ED sooner if any worsening or concerns. Increase oral fluids. Call the crisis hotline number for [facility] the next time you feel anxiety before you call 911. Phone number is Referrals: Lazarus Lugo [employer] [Primary Care Provider] - 1 day Medical Decision Making 60-year-old male presents for the third time in the last 4 days for chief complaint of panic attacks. Patient is denying any suicidal or homicidal ideation. He also reports that he has not been able to sleep for the last week. He does have a history of bipolar, anxiety, type 2 diabetes, depression, colitis, NSTEMI. Will consult on mental health, at this time patient appears sober and not under the influence of any substances. He is not complaining of suicidality or showing any symptoms for emergency placement or self-harm. Mental health evaluation ordered, 0.5 mg lorazepam ordered. Spoke with Gloria with Mental Health who agrees to perform evaluation. Spoke with Gloria with an EKG chest who spoke with patient she does confirm that he is not suicidal or homicidal. She reports that patient stated that he just wanted to come to the hospital so he could sleep here due to his anxiety. He is requesting something to go home with for his anxiety. He does state that he will plan to call his PCP in the morning and will call any K chest after his PCP to confirm that. She will follow up with him tomorrow. He is requesting a phone to call for a ride home. He also did mention to indicate just that he has missed a couple of his medications that he normally takes for anxiety. Patient will be discharged home. He called a friend to come get him. HPI General Mode of arrival: EMS . Date/Time Provider Initiated Documentation: 06/25/21 17:34 . Limitations to Documentation: no limitations . Information obtained by: patient, RN notes reviewed and old records reviewed . HPI Narrative: 60-year-old male presents for the third time in the last 4 days for chief complaint of panic attacks. Patient is denying any suicidal or homicidal ideation. He also reports that he has not been able to sleep for the last week. He does have a history of bipolar, anxiety, type 2 diabetes, depression, coli tis, NSTEMI. He states that he was given lorazepam while here in the department and goes home and is unable to sleep in the anxiety returns. Patient does take sertraline, and Seroquel which she does not report any recent missed doses or changes in his medications. He did speak with his counselor on Tuesday prior to being seen in the emergency department. He denies any chest pain, shortness of breath, headache, blurry vision or any other associated symptoms. Related Data Home Medications Medication Instructions Recorded Confirmed blood-glucose meter #1 each 07/27/19 06/23/21 lancets (Fingerstix Lancets) #100 each 07/27/19 06/23/21 nitroglycerin 0.4 mg sublingual 0.4 mg SL Q5-15M PRN #20 tab 07/27/19 06/23/21 tablet (Nitrostat) sertraline 50 mg tablet 50 mg PO DAILY #90 tab 07/27/19 06/23/21 lisinopril 20 mg tablet 20 mg PO DAILY #90 cap 07/31/19 06/23/21 blood sugar diagnostic (Blood #100 each 05/02/20 06/23/21 Glucose Test) insulin lispro protamine-lispro 20 unit (0.2 mL) SC BID #10 ml 06/13/20 06/23/21 100 unit/mL (75-25) subcutaneous susp (Humalog Mix 75-25(U-100)Insuln) empagliflozin 25 mg tablet 25 mg PO DAILY #60 tab 07/31/20 06/23/21 (Jardiance) carvedilol 12.5 mg tablet 12.5 mg PO BID #60 tab 08/01/20 06/23/21 aspirin 81 mg chewable tablet 81 mg PO DAILY #180 tab 08/08/20 06/23/21 atorvastatin 80 mg tablet (Lipitor) 80 mg PO QPM #90 tab 08/08/20 06/23/21 clopidogrel 75 mg tablet 75 mg PO DAILY #90 tab 08/08/20 06/23/21 cyanocobalamin (vitamin B-12) 1,000 mcg PO DAILY #90 tab-cap 08/08/20 06/23/21 1,000 mcg tablet (Vitamin B-12) levothyroxine 50 mcg tablet 50 mcg PO DAILY #90 tab 08/08/20 06/23/21 (Synthroid) metformin 500 mg tablet 1,000 mg PO BID #360 tab 08/08/20 06/23/21 quetiapine 25 mg tablet (Seroquel) 25 - 50 mg PO QHS tab 01/06/21 06/23/21 amitriptyline 10 mg tablet 10 mg PO QHS #90 tab 02/12/21 06/23/21 pregabalin 200 mg capsule 200 mg PO TID #180 cap 04/02/21 06/23/21 insulin syringes (disposable) 1 mL #500 each 04/08/21 06/23/21 pantoprazole 40 mg tablet,delayed 40 mg PO DAILY #90 tab 04/08/21 06/23/21 release tramadol 50 mg tablet 50 mg PO TID PRN #90 tab 05/25/21 06/23/21 lorazepam 0.5 mg tablet 0.5 mg PO QHS PRN #3 tab 06/25/21 Previous Rx's Medication Instructions Recorded blood-glucose meter #1 each 07/27/19 lancets (Fingerstix Lancets) #100 each 07/27/19 nitroglycerin 0.4 mg sublingual 0.4 mg SL Q5-15M PRN #20 tab 07/27/19 tablet (Nitrostat) sertraline 50 mg tablet 50 mg PO DAILY #90 tab 07/27/19 lisinopril 20 mg tablet 20 mg PO DAILY #90 cap 07/31/19 blood sugar diagnostic (Blood #100 each 05/02/20 Glucose Test) insulin lispro protamine-lispro 20 unit (0.2 mL) SC BID #10 ml 06/13/20 100 unit/mL (75-25) subcutaneous susp (Humalog Mix 75-25(U-100)Insuln) empagliflozin 25 mg tablet 25 mg PO DAILY #60 tab 07/31/20 (Jardiance) carvedilol 12.5 mg tablet 12.5 mg PO BID #60 tab 08/01/20 aspirin 81 mg chewable tablet 81 mg PO DAILY #180 tab 08/08/20 atorvastatin 80 mg tablet (Lipitor) 80 mg PO QPM #90 tab 08/08/20 clopidogrel 75 mg tablet 75 mg PO DAILY #90 tab 08/08/20 cyanocobalamin (vitamin B-12) 1,000 mcg PO DAILY #90 tab-cap 08/08/20 1,000 mcg tablet (Vitamin B-12) levothyroxine 50 mcg tablet 50 mcg PO DAILY #90 tab 08/08/20 (Synthroid) metformin 500 mg tablet 1,000 mg PO BID #360 tab 08/08/20 amitriptyline 10 mg tablet 10 mg PO QHS #90 tab 02/12/21 pregabalin 200 mg capsule 200 mg PO TID #180 cap 04/02/21 insulin syringes (disposable) 1 mL #500 each 04/08/21 pantoprazole 40 mg tablet,delayed 40 mg PO DAILY #90 tab 04/08/21 release tramadol 50 mg tablet 50 mg PO TID PRN #90 tab 05/25/21 lorazepam 0.5 mg tablet 0.5 mg PO QHS PRN #3 tab 06/25/21 Allergies Allergy/AdvReac Type Severity Reaction Status Date / Time venlafaxine HCl AdvReac Intermediate Increased Verified 06/23/21 13:11 [From Effexor] Blood Pressure General Stated Complaint: PsychEval BEN: 3 Review of Systems All systems reviewed & are unremarkable except as noted in HPI and below Psychiatric Psychiatric: Reports as per HPI (Trouble sleeping), Reports anxiety, Reports panic attacks, Denies homicidal ideation and Denies suicidal ideation PFSH All Active Problems (Updated 06/25/21 @ 18:45 by Shruti Munguia) Anxiety (Chronic) Panic attacks (Acute) Colitis (Acute) Anxiety (Chronic) Anxiety (Chronic) Insomnia (Acute) Chronic knee pain (Acute) Problem with transportation (Acute) Knee pain, acute (Acute) Adenomatous colon polyp (Acute) Diverticulosis (Acute) Colon polyp (Acute) Atherosclerosis of [place] coronary artery (Acute) minimal obstruction Benign prostatic hyperplasia (Acute) Chronic obstructive lung disease (Acute 10/11/12) DM (diabetes mellitus), type 2, uncontrolled (Acute) Depressive disorder (Acute 10/11/12) Diverticulitis of colon (Acute 10/11/12) Gastroesophageal reflux disease with esophagitis (Acute) Generalized osteoarthritis (Acute 08/20/13) Hypercholesterolemia (Acute 03/24/02) Kidney stone (Acute) Peripheral vascular disease (Acute 02/17/15) Sensorineural hearing loss, bilateral (Acute 01/21/17) Smoker (Acute 08/20/13) Trochanteric bursitis of right hip (Acute) Trochanteric bursitis of left hip (Acute) Work on this with his exercises. The steroid shots are probably not helping his diabetes at all. Nor are they helping his blood pressure. Recommended he is use of NSAIDs. They raise brought blood pressure in some people. Diabetic neuropathy associated with type 2 diabetes mellitus (Chronic) Status post shoulder surgery (Acute 09/09/14) Left lower quadrant pain (Acute) Encounter for screening colonoscopy (Acute) NSTEMI (non-ST elevation myocardial infarction) (Acute) Medical History ASCVD (arteriosclerotic cardiovascular disease) Bipolar 1 disorder, mixed BPH (benign prostatic hyperplasia) COPD (chronic obstructive pulmonary disease) Depression Diverticulosis DM type 2 (diabetes mellitus, type 2) Generalized osteoarthritis GERD (gastroesophageal reflux disease) History of diverticulitis Kidney stones MELONIE and COPD overlap syndrome Peripheral neuropathy PVD (peripheral vascular disease) Tobacco abuse Surgical History Arthroscopy, Shoulder 05/08/14; DR. ADAMS; RIGHT Colectomy Colonoscopy - MAC Coronary Artery Bypass Gaft (CABG) History of angioplasty of peripheral vessel Right leg stent placed in groin Right upper thigh stent placed Family History Mother No problems noted. Father Heart disease Sister Depression Brother No problems noted. Brother Diabetes Heart disease Brother No problems noted. Maternal Grandmother Heart disease Stroke Social History Smoking/Tobacco Use Status: Current every day Tobacco Type: cigarettes Tobacco: How many years used: 45 Quit status: has quit before Second Hand Exposure: Yes Smoking risk assessment performed?: Yes Alcohol Intake: current Alcohol Intake frequency: a few times a month Alcohol type: hard liquor Drug use: Daily Substance use type: marijuana Caregiver/Support person: No Household members: none Communication Needs: Hard of Hearing Do you need help understanding health information?: Rarely Pets and animals: Yes Pets and animals: dog(s) Sexually active: No Do you think of yourself as: straight/heterosexual Current gender identity: male What is your relationship status?: How often do you talk on the phone with friends or family?: twice per week How often do you get together with friends or relatives?: decline to answer How often do you attend hoahaoism or adventism services?: decline to answer Do you belong to any clubs or organized social groups?: no Panel score (0-1 are the most socially isolated patients): 0 What type of physical activity do you participate in: walking Duration: 15-30 minutes/day Frequency: 5-6 times per week Annita/Christian: No preference Special annita needs: No Seatbelt use: always Helmet use: Yes Helmet use: always Drive intox or ride w/intox owner operator tanker truck driver: No Do you feel safe at home: Yes Do you feel safe in your relationship?: Yes Exam Narrative Exam Narrative: Constitutional: Alert and oriented x3. Appears stated age. Normal body habitus. Head: Normocephalic, no trauma. Eyes: Pupils PERRL, Red reflex noted, EOM's intact. Eyelids symmetrical without lesions, discharge, or swelling. ENT: Bilateral TM's WNL, External ear normal to inspection, no mastoid TTP, swelling, or erythema, Nasal turbinates WNL, no nasal discharge. Normal dentition, Posterior pharynx WNL, no exudate. Chest: RRR, Normal S1, S2, distal pulses intact. Resp: Lungs clear to auscultation bilaterally, no wheezes, rales, or rhonchi. Abdomen: Soft, non-distended, Normoactive bowel sounds all 4 quads. Musculoskeletal: Normal gait, 5/5 strength to all four extremities. Skin: No suspicious rashes or lesions. Capillary refill less than 2 sec. Neurologic: Cranial nerves II-XII intact. Alert and oriented x 3. Motor: No deficits noted. Sensory: Intact bilaterally all 4 extremities. Reflexes: DTR's intact bilaterally.. Hematologic/Lymphatic: No ecchymosis, no lymphadenopathy. Psych Appearance: well kempt Mental Status: mental status grossly normal Speech and Movement: speech and movement normal Mood: anxious mood Attitude: cooperative Thought Process: normal Thought Content: normal, no hallucinations, no homicidality and suicidality Insight: insight good Judgment: judgment good Course Vital Signs Vital signs: Vital Signs Temperature 36.6 C 06/25/21 17:34 Pulse 78 06/25/21 17:34 Respiratory Rate 18 06/25/21 17:34 Blood Pressure 154/78 H 06/25/21 17:34 Pulse Oximetry 98 06/25/21 17:34 Temperature 36.6 C 06/25/21 17:34 Temperature Source Temporal Artery Scan 06/25/21 17:34 Pulse 78 06/25/21 17:34 Respiratory Rate 18 06/25/21 17:34 Respiratory Effort 06/25/21 17:41 Blood Pressure 154/78 H 06/25/21 17:34 Blood Pressure Position Sitting 06/25/21 17:34 Pulse Oximetry 98 06/25/21 17:34 Oxygen Delivery Method Room Air 06/25/21 17:34 Oxygen Flow Rate 0 06/25/21 17:34 Pain Level 0 06/25/21 17:34 PAWSS Have you Been Recently Intoxicated or Drunk Within the Last 30 days?: No Have you Ever Experienced Previous Episodes of Alcohol Withdrawal?: No Have you ever Experienced Withdrawal Seizures?: No Have you ever Experienced Delirium Tremens(DT)s?: No Have you ever undergone Alcohol Rehabilitation Treatment (i.e, inpt ot outpatient treatment programs)?: No Have you ever Experienced Blackouts?: No Have you ever Combined Alcohol with other Downers within the last 90 days?: No Have you ever Combined Alcohol with any other Substance of Abuse during the last 90 days?: No Positive Blood Alcohol level on Presentation? [PCS.BAL]: No Evidence of Increased Autonomic Activity (i.e. HR>120, tremor, sweating, agitation, nausea)?: No Result: 0
--- NOTE | 2021-06-25 18:14 | NUR.NOTE ---
Nursing Note: Referral given to Care Management to be made aware that the patient has had 3 visits in 4 dyas for panic attacks. Rosa Maria Soto
[2021-06-25] MEDS: LORazepam 0.5 MG TAB PO (18:17)
[2021-06-25] MEDS: LORazepam 1 MG TAB 3 MG PO (18:53)
--- NOTE | 2021-06-25 18:54 | PDOC.MHCN ---
Date of service: 06/25/21 Time of Service: 18:30 Mental Health Crisis Note Presenting Issue How did you arrive at the ED and why did you come: Client arrived to the ED via ambulance for anxiety. Client reports he came to the ED for a safe place to have a good nights sleep. Precipitating Factors Client denies SI/HI/NSSI. Client reports he has not slept in 5 days. Client reports he stopped taking his anxiety medication 6 days ago. Disposition BEHAVIOR: Client was calm, cooperative, and engaged in conversation. EYE CONTACT: Client made great eye contact. MOOD: Client describes his mood as anxious. AFFECT: Congruent with mood. APPETITE: Not assessed at this time. SLEEP(trouble falling/staying asleep: Client reports he has not slept in 5 days. Plan Client was told the ED will not keep him overnight so that he can get some sleep. Client is denying SI/HI/NSSI and feels safe to be discharged home. Client was reminded that he was asked to follow up with his med provider to figure out his medication situation. He did not do so, nor did he make an appointment with his PCP per his safety plan on 06.22. He reports that he received a call from his PCP on 06.23.21 and today, but did not return the call. Client reports he stopped taking his medication nearly 6 days ago. Since, he has not been able to sleep due to anxiety. This information writer recommended that the client takes his anxiety medication as prescribed. This information writer also insisted that the client call [facility] first thing in the morning to schedule an appointment with his med provider. After making the appointment, he is suppose to be calling to confirm with the emergency team. This information writer will be reaching out to his med provider in the morning. This information writer will also be connecting with the clients therapist to update her on the frequent ED visits and panic attacks, in hopes that she can reach out and schedule a sooner appointment. Signature Clinician's Name/Title: Alycia Mejía, ESC
[2021-06-25 18:57] LABS: *AMPHETAMINES SCREEN URINE Negative (Negative); *BARBITURATES SCREEN URINE Negative (Negative); *BENZODIAZEPINES SCREEN URINE Negative (Negative); Cannabinoids THC Positive (Negative); Cocaine Screen,Urine Negative (Negative); METHADONE URINE SCREEN Negative (Negative); OPIATES URINE SCREEN Negative (Negative)
[2021-06-25 19:03] LABS: Tricyclic Antidepressants Positive (Negative)
== END 2021-06-25 18:52 | disposition home or self-care (01) ==
LOC: ER 18:54
PROVIDERS: Emergency Provider Registered Nurse Emergency; PCP Nurse Practitioner Family
DX: F41.9 Anxiety disorder, unspecified (principal); G47.00 Insomnia, unspecified; Z79.899 Other long term (current) drug therapy
CPT/HCPCS: 80307; 99283

== ENCOUNTER 2021-06-29 17:53 | Outpatient (REF) | payer MEDICARE, SELFPAY ==
[2021-06-29 21:32] LABS: TSH (W/Ref FT4) 5.06 uIU/mL (0.36-3.74)
[2021-06-29 21:49] LABS: FREE T4 1.09 ng/dL (0.76-1.46)
== END 2021-06-29 17:54 | disposition home or self-care (01) ==
LOC: LBN 17:53
PROVIDERS: PCP Nurse Practitioner Family; Visit Provider Nurse Practitioner Family
DX: F41.9 Anxiety disorder, unspecified (principal)
CPT/HCPCS: 84439; 84443

== ENCOUNTER 2021-10-30 01:46 | Outpatient (CLI) | payer MEDICARE, SELFPAY ==
--- OUTSIDE RECORDS SUMMARY | 2021-10-30 01:52 | XMS_ITS | Encounter Summary ---
:1960 Author Organization [facility] [place] [address] Care Team Providers Name Role Phone Joel Mccarthy MD Primary Care Provider Reason for Visit Reason Onset Date Comments Follow-up 01/09/2020 Tobacco-Treatment Encounter Details Date Type Department Care Team Description 01/09/2020 Telephone Vascular Surgery at [facility]achell, RN (Tobacco-Treatment) [place] [id number] Social History Tobacco Use Types Packs/Day Years Used Date Former Smoker 1 40 Smokeless Tobacco: Never Used Alcohol Use Standard Drinks/Week Comments Yes 4 (1 standard drink = 0.6 oz pure alcoho l) Sex Assigned at Date Recorded Not on file documented as of this encounter Miscellaneous Notes Telephone Encounter - Anastacio Sno RN - 01/09/2020 3:18 PM EDT DATE: 01/09/2020 NAME: Oleg Berry : 1960 Reason for Call: 6-month follow-up for Tobacco Treatment [facility] Anastacio Son, MSN, RN-BC, NCTTP Tobacco Sleeping Room Cleaner [facility] Pager #[phone] documented in this encounter Plan of Treatment Not on filedocumented as of this encounter Visit Diagnoses Not on filedocumented in this encounter Care Teams Customer Quality Specialist Relationship Specialty Start Date End Date Joel Mccarthy MD PCP - General General Internal Medicine 06/29/18 [address] [place] [address] documented as of this encounter
--- OUTSIDE RECORDS SUMMARY | 2021-10-30 01:52 | XMS_ITS | Clinical Summary ---
:1960 Author Organization [facility] [place] [address] Care Team Providers Name Role Phone Unknown Primary Care Provider Unavailable Allergies Active Allergy Reactions Severity Noted Date Comments Venlafaxine Medium 06/28/2018 Increased blood pressure Medications Medication Sig Dispensed Refills Start Date End Date Status gabapentin (NEURONTIN) Take 400 mg by 0 Active 400 mg Capsule mouth 3 times daily. FLUoxetine (PROZAC) 40 Take 80 mg by 0 Active mg Capsule mouth daily. acetaminophen Take 2 tablets 30 tablet 1 07/16/2016 Active (TYLENOL) 500 mg by mouth every 6 Tablet hours as needed for Pain. aspirin 81 mg Tablet, Take 81 mg by 30 tablet 3 07/16/2016 Active Chewable mouth daily. atorvastatin (LIPITOR) Take 1 tablet by 30 tablet 3 07/16/2016 Active 80 mg Tablet mouth every evening. Insulin Syringe-Needle 1 Box by 100 Syringe 3 07/16/2016 Active U-100 1 mL 31 gauge x Misc.(Non-Drug; 09/07 Syringe Combo Route) route 2 times daily. sertraline (ZOLOFT) 50 Take 50 mg by 0 Active mg Tablet mouth daily. nicotine (NICODERM CQ) Place 1 patch 28 patch 0 07/20/2018 Active 21 mg/24 hr Patch 24 onto the skin hr daily. oxyCODONE (ROXICODONE) Take 1 tablet by 15 tablet 0 08/15/2018 Active 5 mg mouth every 4 TabletIndications: PAD hours as needed (peripheral artery for Pain. disease) nitroGLYcerin Place 1 tablet 60 tablet 0 07/25/2019 Active (Nitrostat) 0.4 mg under the tongue Tablet, Sublingual every 5 minutes as needed for Chest pain. carvediloL (Coreg) Take 1 tablet by 90 tablet 3 07/25/2019 Active 12.5 mg Tablet mouth 2 times daily (with meals). metFORMIN (GLUCOPHAGE) Take 1 tablet by 180 tablet 3 0 Active 1,000 mg Tablet mouth 2 times daily (with meals). lisinopriL Take 1 tablet by 90 tablet 3 07/25/2019 A ctive (Prinivil;Zestril) 20 mouth daily. mg Tablet Active Problems Problem Noted Date Hypertensive urgency 07/25/2019 Myocardial infarction 07/24/2019 Critical lower limb ischemia 06/27/2018 Leg pain, bilateral 12/15/2016 Aortoiliac occlusive disease 12/15/2016 S/P CABG (coronary artery bypass graft) 07/12/2016 Last Assessment & Plan: Formatting of th is note might be different from the original. S/p CABG, doing very well. LVEF preserve d. No angina or heart failure. We discussed need for aggressive secondary prevention with diet / exercise / cardiac rehab / medical therapy. He should take aspiri n, statin, bblocker and ACEi. Diabetic c ontrol is imperative. I do not think he needs a diuretic at this point. Today, his chest tube sutures were removed by our surgeon. His wound looks great. Atherosclerosis of [place] artery of right lower extrem ity with 07/09/2016 intermittent claudication Overview: ?? Noted on aortogram done in technical laboratory asst 2016. 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 Last Assessment & Plan: Known PVD with disease of bilateral exte rnal iliac and CFAs. He has stopped smoking. Continue with medical therapies for now. He continues to have discomfort. I will set him up to see Dr. Maurice ([facility]); he has seen him in the past. Hypertension 07/09/2016 Last Assessment & Plan: Formatting of th is note might be different from the original. BP a bit elevated today. He should amber nue with metoprolol. Given his DM, HTN and CAD, suggest adding ACEi (will start lisinopril 5 mg daily). Financial difficulties--- barrier to medication use Coronary artery disease 07/09/2016 Overview: 06/2016: NSTEMI. Cath showing 3vD. Surge ry recommended. Non ST elevation [place] due to severe 3vD-- awaiting for C ABG Tuesday07/08/2016 Diabetes mellitus, type 2 03/17/2015 Last Assessment & Plan: Formatting of th is note might be different from the original. Continues to need tight control. Will wo rk on this with his PCP. He is on insulin + oral therapies. Hyperlipidemia 03/17/2015 Last Assessment & Plan: Formatting of th is note might be different from the original. Continue on high-dose statin therapy, no w s/p IL and CABG. Osteoarthritis 03/17/2015 Resolved Problems Problem Noted Date Resolved Date Left groin hematoma-- noted 07/11/2016 07/11/2016 Overview: Left side. Post cath. Tobacco abuse 03/17/2015 12/15/2016 Last Assessment & Plan: Formatting of th is note might be different from the original. Thankfully, he has successfully stopped smoking. I congratulated him and he will continue to remain smoke-free. Immunizations Name Administration Dates Next Due Pneumococcal Polyvalent 05/28/2002 Family History Medical History Relation Comments Myocardial Infarction Father Relation Status Comments Father Social History Tobacco Use Types Packs/Day Years Used Date Former Smoker 1 40 Smokeless Tobacco: Never Used Tobacco Cessation: Ready to Quit: Yes Alcohol Use Standard Drinks/Week Comments Yes 4 (1 standard drink = 0.6 oz pure alcoho l) Sex Assigned at Date Recorded Not on file Last Filed Vital Signs Vital Sign Reading Time Taken Comments Blood Pressure 165/75 07/25/2019 7:46 AM EDT Pulse 63 07/25/2019 7:46 AM EDT Temperature 36.8 ??C (98.2 ??F) 07/25/2019 7:46 AM EDT Respiratory Rate 18 07/25/2019 7:46 AM EDT Oxygen Saturation 99% 07/25/2019 7:46 AM EDT Inhaled Oxygen Concentration - - Weight 69.7 kg (153 lb 10.6 oz) 07/25/2019 5:00 AM EDT Height 167.6 cm (5' 6) 07/24/2019 3:40 AM EDT Body Mass Index 24.8 07/24/2019 3:40 AM EDT Plan of Treatment Health Maintenance Due Date Last Done Comments Covid-19 Vaccine (#1) 1965 DM Opthalmology Exam 1970 DM Urine Microalbumin yearly 1970 HIV screen 1978 Hepatitis C Screening 1978 Tdap adult 10/06/1979 Tetanus vaccine 10/06/1979 Pneumococcal Vaccine: At-Risk 05/28/2003 05/28/2002 5-64yrs (2 - PCV) Colonoscopy 2005 Zoster vaccine (1 of 2) 2010 Advance Directive 10/06/2015 DM Hemoglobin A1c 10/23/2019 07/24/2019, 07/18/2018, 07/09/2016 DM Creatinine yearly 07/24/2020 07/25/2019, 07/24/2019, 07/22/2018, Additional history exists Influenza (Flu) vaccine (1 of 1 - 12/24/2021 Influenza standard series) Medical Devices Implanted Type Area Shorts Sifter Device Shelf Model / Identifier Expiration Serial / Date Lot Cable,Cut,Edg,Blnt,Ss,3tpr ([id number]) - [id number] IMPLANTS Chest PIONEER 04/06/2021 [id number] / Implanted: Qty: 4 on 07/12/2016 by Valentino Pedro MD at [facility] SUR[facility] NA / TECHNOLOGY - [id number] Stent,Epic,[id number] ([id number]) - [id number] IMPLANTS Right: [place] 04/30/2023 [id number] / Implanted: Qty: 1 on 06/28/2018 by Lamine Oneal MD at [facility] Arterial SCIENTIFIC / CORPORATION - [id number] Stent,Epic,Slfx,6x60mm,120cm ([id number]) (Autoreq) - [id number] IM PLANTS Right: [place] 10/17/2021 [id number] / Implanted: Qty: 1 on 07/21/2018 by Lamine Oneal MD at [facility] Arter[employer] / [employer] - [id number] Description: Right SFA Insurance Payer Benefit Plan / Subscriber ID Effective Dates Phone Addre ss Type Group MEDICARE MEDICARE PART A [id number] 2018-Jena [phone] [facility] [place] [id number] Advance Directives Latest Code Status on File Code Status Date Activated Date Inactivated Comments DNR 07/24/2019 4:49 AM 07/25/2019 1:10 PM Does patient have capacity to make decision: Yes Full Code 07/24/2019 3:45 AM 07/24/2019 4:49 AM Does patient have capacity to make decision: Yes Full Code 07/21/2018 7:13 PM 07/22/2018 2:53 PM Does patient have capacity to make decision: Yes Full Code 07/18/2018 11:26 AM 07/20/2018 12:59 PM Does patient have capacity to make decision: Yes Full Code 06/27/2018 5:07 PM 06/30/2018 2:20 PM Does patient have capacity to make decision: Yes Care Teams Steam Conditioner Operator Relationship Specialty Start Date End Date Unknown PCP - General 01/23/21 None
--- OUTSIDE RECORDS SUMMARY | 2021-10-30 01:53 | XMS_ITS | Encounter Summary ---
:1960 [place] [address] Care Team Providers Name Role Phone Joel Mccarthy MD Primary Care Provider Reason for Visit Auth/Cert Specialty Diagnoses / Procedures Referred By Contact Refer red To Contact Diagnoses RLE CLI Procedures PRO PLACE CATH/NEEDLE EXTREMITY ARTERY PRO EXPLORATION, FEMORAL ARTERY INTRODUCE CATHETER IN UPPER OR LOWER EXTREMITY ARTERY (EG ILIAC OR FEMORAL) (WRVU 2.01) @EXPLORATION, W/WO LYSIS, FEMORAL ARTERY W\O SURGICAL REPAIR (WRVU 7.72) Referral ID Status Reason Start Date Expiration Date Visits Requ ested Visits Authorized [id number] 1 1 Encounter Details Date Type Department Care Team Description 07/21/2018 Anesthesia Event Main Operating Room Bucky Pablo MD [facility] [place] [address] [facility] Vineet Jefferson MD [facility] [place] [address] [place] [address] [place] [address] Anesthesia Record Procedure Summary Procedure Name Responsible Anesthesia Start Anesthesia Stop Time Anesthesiologist Time INTRODUCE CATHETER Bucky Hawkins MD 07/21/18 1606 07/21/18 1843 IN UPPER OR LOWER EXTREMITY ARTERY (EG ILIAC OR FEMORAL) (WRVU 2.01) (Right Groin) Events Date Time Event Comment 07/21/2018 1423 1606 Start 1609 AN Verify 1610 An Start Data 1613 An Induction 1615 IV Start 1617 An Intubation 1619 ABG Data Kiersten placed 1620 Anesthesia Ready 1634 ABG Data Arterial Blood G as result: pH 7.393 pCO2 40.9 pO2 141.8 %O2 Sa t 100 FiO2 0.5 HCO3 24.4 BE -0.5 Hb 12.3 K 4 .05 Glucose 200 Lactate 1.84 1641 an prakash now 1652 Procedure Start 1705 Heparin 1718 Break/Relief In Howard Chicas RNA 1727 Break/Relief Out 1748 Protamine 1821 Extubation/LMA Out 1824 Procedure Stop 1827 an stop data 1838 Recovery or ICU Handoff Patient care was transferred to the destination unit staff after review of the patient's medica l history, current anesthetic/surgi pavan status and plan, according to the Provider Handoff Checklist. 1843 Stop Name Total fentaNYL 200 mcg IV Lidocaine 100 mg Propofol 400 mg Rocuronium 70 mg PHENYLephrine 320 mcg Heparin 8,000 Units Protamine 20 mg Dexamethasone 8 mg Ondansetron 4 mg ceFAZolin (ANCEF) 2g in dextrose 5% 100 mL 2 g Insulin Regular INF 1.7 Units Insulin Regular Human 4 Units HYDROmorphone 2 mg Labetalol 5 mg Lactated Ringers 1,200 mL Agents Name O2 Air N2O Sevoflurane (et) Blood No blood administrations on file. Lines, Drains, and Airways Type Details Placement Removal Incision thigh 07/21/18 1753 by Wound 07/18/18; 1620; heel; 07/18/18 1620 by fisVidya Jones Incision 07/19/18; 1258; groin; 07/19/18 1258 by laparoscopic puncture Jie Buckner RN Pressure Injury 07/21/18; 1447; yes; 07/21/18 1447 by Heidi Hunter RN Wound heel; other (see 06/28/18 0406 by 07/22/18 0816 by comments) (heel cracks); Dianne Giron, 07/22/18; 0816 RN Incision 07/12/16; 1327; leg; 07/12/16 1327 by 07/22/18 0 816 by [facility]; #11 stab incision Grace Gonzalez RN Willi ams, Abigayle [facility] groin; 07/22/18; RN 0816 Incision 07/12/16; 1328; chest; 07/12/16 1328 by 07/22/18 0816 by midline; 07/22/18; 0816 Grace Gonzalez, RN Will iams, Dianne Moreira RN Incision 06/28/18; 1059; groin; 06/28/18 1059 by 07/22/18 0816 by 07/22/18; 0816 Juliana Rock Williams, Ab vinicio Moreira RN RN PIV 07/21/18; 1454; cephalic 07/21/18 1454 by 1244 by vein (lateral side of [place]fieldHeidi RN Maria Teresa long, Azaliah H, arm), right; 20 gauge; RN Trini Lunsford RN; distraction, intradermal injection, tolerated well, appears comfortable; 07/22/18; 1244 PIV 07/21/18; 1615; 07/21/18 1615 by 07/22/18 1243 b y metacarpal vein (top of Thang Guevara, Jasmine ingha, Davidliah H, hand), left; BELEN COLLADO [id number] catheter system; 18 gauge; Dillan Jefferson MD; tolerated well, appears comfortable; 07/22/18; 1243 ETT Mask Ventilation: Easy 07/21/18 1617 by 07/21/18 1821 by (1); ETT Type: Cuffed, Thang Guevara, Thang Lovelace, Oral; ETT Size: 7.5 mm; BELEN ROSS FURNACE OPERATOR Mac Blade: 3; Notes: Asleep, Pre-O2, Stylette; Attempts: 1; Laryngoscopy Grade: 1; ETT Placement Verified By: Auscultation, Capnometry, Visual; Secured at Teeth: 22 cm; Inserted by: Harsh Guevara CRNA Arterial Line 07/21/18; 1619; radial 07/21/18 1619 by 07/21/18 1930 by artery, left; 20 gauge; Thang Guevara, Rashida uku, Tuwuonidiary Harsh Guevara CRNA; Sterile BELEN Cardenas RN Prep, Sterile Gloves; catheter intact, no longer indicated; 07/21/18; 193 Urethral Catheter 07/21/18; 1753; 07/21/18 1753 by 07/22/18 0816 by Physician order; Lizeth Martin, RN Rachell Maher, Physician order; RN indwelling double lumen catheter; 14; inserted at this facility; 1; 5; 10; none (Inserted in OR under general anesthesia); drainage bag to dependent drainage; Inserted by Lizeth Martin RN; 07/22/18; 0816 documented in this encounter Social History Tobacco Use Types Packs/Day Years Used Date Former Smoker 1 40 Smokeless Tobacco: Never Used Alcohol Use Standard Drinks/Week Comments Yes 4 (1 standard drink = 0.6 oz pure alcoho l) Sex Assigned at Date Recorded Not on file documented as of this encounter OR Notes Anesthesia Postprocedure Evaluation - Bucky Hawkins MD - 07/21/2018 6:57 PM EDT [facility] [place]hesiology Post-procedure Note Patient: Oleg Berry Procedure Summary Date: 07/21/18 Room / Location: [address] MAIN OR Anesthesia Start: 1606 Anesthesia Stop: 1842 Procedures: INTRODUCE CATHETER IN UPPER OR LOWER EXTREMITY ARTERY (EG ILIAC OR FEMORAL) (WRVU 2.01) (Right Groin) @EXPLORATION, W/WO LYSIS, FEMORAL ARTERY W\O SURGICAL REPAIR (WRVU 7.72) (Right ) Diagnosis: (RLE CLI) Surgeon: Lamine Oneal MD Responsible Provider: Bucky Hawkins MD Anesthesia Type: general ASA Status: 3 All Anesthesia Providers: Anesthesiologist: Vineet Jefferson MD; Bucky Hawkins MD ROSS FURNACE OPERATOR: Thang Guevara CRNA Vitals Value Taken Time BP 147/79 07/21/2018 6:45 PM Temp 36.6 ??C (97.9 ??F) 07/21/2018 6:32 PM Pulse 76 07/21/2018 6:56 PM Resp 14 07/21/2018 6:56 PM SpO2 96 % 07/21/2018 6:56 PM Pain Level Vitals shown include unvalidated device data. Patient Location: PACU/[facility] Level of Consciousness: Awake and Alert Pain Management: Satisfactory Analgesia PONV: None Cardiovascular Status: At Baseline and Hemodynamically Stable Respiratory Status: Stable Respiratory Status and Supplemental O2 (NC or FM) Postoperative Fluid Status: Intravascular EUvolemia Possible Anesthetic Complications: NONE apparent at time of evaluation Final Primary Anesthesia Type: General (The anesthetic type performed was the same as planned.) Comments: BUCKY HAWKINS MD Anesthesia Preprocedure Evaluation - Vineet Jefferson MD - 07/21/2018 2:22 PM EDT Pre-Anesthesia Evaluation for: Oleg Berry a 57 y.o. male. Procedure(s): INTRODUCE CATHETER IN UPPER OR LOWER EXTREMITY ARTERY (EG ILIAC OR FEMORAL) (WRVU 2.01) @EXPLORATION, W/WO LYSIS, FEMORAL ARTERY W\O SURGICAL REPAIR (WRVU 7.72) Patient Active Problem List Diagnosis ??? Critical lower limb ischemia ??? Leg pain, bilateral ??? Aortoiliac occlusive disease ??? S/P CABG (coronary artery bypass graft) ??? Atherosclerosis of [place] artery of right lower extremity with intermittent claudication ?? Noted on aortogram done in labor relations manager Jun 2016. 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 ??? Hypertension ??? Financial difficulties--- barrier to medication use ??? Coronary artery disease 06/2016: NSTEMI. Cath showing 3vD. Surgery recommended. ??? Non ST elevation [place] due to severe 3vD-- awaiting for CABG Tuesday ??? Diabetes mellitus, type 2 ??? Hyperlipidemia ??? Osteoarthritis No past medical history on file. Past Surgical History: Procedure Laterality Date ??? PRO CABG, ARTERIAL, TWO N/A 07/12/2016 @CABG, USING 2 CORONARY ARTERIAL GRAFTS (WRVU 39.88) performed by Valentino Arredondo MD at [facility] MAIN OR ??? PRO CABG, ARTERY-VEIN, TWO N/A 07/12/2016 @CABG, TWO VENOUS GRAFTS & ARTERIAL GRAFT (WRVU 7.93) performed by Valentino Arredondo MD at [facility] MAIN OR ??? PRO ENDOSCOPY W/VIDEO-ASST VEIN HARVEST, CABG Right 07/12/2016 ENDOSCOPIC HARVEST VEIN(S) FOR CABG (WRVU 0.31) performed by Valentino Arredondo MD at [facility] MAIN OR ? ? PRO REVSC OPEN/PERCUTANEOUS ILIAC ART W STNT PLMT&ANGIO WENDI VSL UNILAT Right 06/28/2018 REVSC OPN\PRQ ILIAC ART W\STNT PLMT & ANGIOP SAME VSL (WRVU 10) performed by Lamine Oneal MD at [facility] MAIN OR ??? PRO THROMBOENDARTECTMY ILIOFEMORAL Right 06/28/2018 @ENDARTERECTOMY, ILIOFEMORAL W OR W/O PATCH GRAFT (WRVU 19.86) performed by Lamine Oneal MD at [facility] MAIN OR Social History Tobacco Use ??? Smoking status: Former Smoker Packs/day: 1.00 Years: 40.00 Pack years: 40.00 ??? Smokeless tobacco: Never Used Substance Use Topics ??? Alcohol use: Yes Alcohol/week: 2.4 oz Types: 4 Cans of beer per week Social History Substance and Sexual Activity Drug Use Yes ??? Frequency: 3.0 times per week ??? Types: Marijuana Allergies Allergen Reactions ??? Effexor [Venlafaxine] Increased blood pressure Medications: MAR and/or home medications have been reviewed. Physical Exam: There were no vitals filed for this visit. There is no height or weight on file to calculate BMI. Airway Assessment: Mallampati: II TM distance: >3 FB Neck ROM: full Cardiovascular Assessment: cardiovascular exam normal Pulmonary Assessment: pulmonary exam normal Dental Assessment: Comment: Some missing, remainder solid. Misc Assessment: IV access: Peripheral line Anesthesia Plan: ASA 3 general, with a(n) intravenous induction No interval changes NPO -URI Plan Gen Et [place] Region - Major Vascular Informed Consent: Anesthetic plan and risks discussed with patient. Use of blood products discussed with patient who consented to blood products. Plan discussed with ROSS FURNACE OPERATOR. PAT Clinic Note documented in this encounter Plan of Treatment Not on filedocumented as of this encounter Visit Diagnoses Not on filedocumented in this encounter Administered Medications Inactive Administered Medications - up to 3 most recent administrations Medication Order MAR Action Action Date Dose Rate Site ceFAZolin (ANCEF) 2g in dextrose 5% Given 07/21/2018 4:30 PM EDT 2 g 100 mL 2 g, Intravenous, ONCE, 1 dose, On Tue07/21/18 at 1600, Administer over 30 Minutes, Day of Surgery (Day of Procedure), Indication for (Active or Suspected): Prophylaxis dexamethasone (DECADRON) injection Given 07/21/2018 4:49 PM EDT 8 mg PRN, Starting on Tue07/21/18 at 1649, Until Tue07/21/18 at 1843, Anesthesia Intra-op, Routine fentaNYL 50 mcg/mL multi-dose injection Given 07/21/2018 5:39 PM EDT 100 mcg PRN, Starting on Tue07/21/18 at 1641, Until Tue07/21/18 at 1843, Anesthesia Intra-op, Routine Given 07/21/2018 4:41 PM EDT 100 mcg heparin (porcine) injection Given 07/21/2018 5:05 PM EDT 8,000 Units PRN, Starting on Tue07/21/18 at 1705, Until Tue07/21/18 at 1843, Anesthesia Intra-op, Routine HYDROmorphone (DILAUDID) injection Given 07/21/2018 6:23 PM EDT 0.5 mg PRN, Starting on Tue07/21/18 at 1813, Until Tue07/21/18 at 1843, Anesthesia Intra-op, Routine Given 07/21/2018 6:19 PM EDT 0.5 mg Given 07/21/2018 6:16 PM EDT 0.5 mg insulin regular human New Bag 07/21/2018 4:41 PM EDT 1 Units/hr 1 mL/hr (HumuLIN;NovoLIN) 1unit/mL in sodium chloride 0.9% infusion CONTINUOUS PRN, Starting on Tue07/21/18 at 1641, Until Tue07/21/18 at 1843, Anesthesia Intra-op, Routine insulin regular human VIAL injection Given 07/21/2018 4:41 PM EDT 4 Units PRN, Starting on Tue07/21/18 at 1641, Until Tue07/21/18 at 1843, Anesthesia Intra-op, Routine labetalol (NORMODYNE,TRANDATE) multi-dose Given 07/21/2018 6:38 PM EDT 5 mg injection PRN, Starting on Tue07/21/18 at 1842, Until Tue07/21/18 at 1843, Anesthesia Intra-op, Routine lactated ringers infusion New Bag 07/21/2018 5:30 PM EDT CONTINUOUS PRN, Starting on Tue07/21/18 at 1454, Until Tue07/21/18 at 1843, Anesthesia Intra-op New Bag 07/21/2018 2:54 PM EDT lidocaine (PF) (XYLOCAINE) 100 mg/5 mL (2 %) Given 4:13 PM EDT 100 mg injection PRN, Starting on Tue07/21/18 at 1613, Until Tue07/21/18 at 1843, Anesthesia Intra-op, Routine ondansetron (ZOFRAN) injection Given 07/21/2018 6:13 PM EDT 4 mg PRN, Starting on Tue07/21/18 at 1813, Until Tue07/21/18 at 1843, Anesthesia Intra-op, Routine PHENYLephrine in NS (PF) (MITCH-SYNEPHRINE) 0.8 Given 5:38 PM EDT 80 mcg mg/10 mL (80 mcg/mL) multi-dose injection Syrg PRN, Starting on Tue07/21/18 at 1716, Until Tue07/21/18 at 1843, Anesthesia Intra-op, Routine Given 07/21/2018 5:36 PM EDT 80 mcg Given 07/21/2018 5:20 PM EDT 80 mcg propofol (DIPRIVAN) 10 mg/mL bolus injection Given 9 5:39 PM EDT 50 mg (Anesthesia) PRN, Starting on Tue07/21/18 at 1613, Until Tue07/21/18 at 1843, Anesthesia Intra-op Given 07/21/2018 5:05 PM EDT 50 mg Given 07/21/2018 4:42 PM EDT 50 mg protamine injection Given 07/21/2018 5:48 PM EDT 20 mg PRN, Starting on Tue07/21/18 at 1748, Until Tue07/21/18 at 1843, Anesthesia Intra-op, Routine rocuronium (ZEMURON) multi-dose injectio n Given 07/21/2018 5:39 PM EDT 10 mg PRN, Starting on Tue07/21/18 at 1614, Until Tue07/21/18 at 1843, Anesthesia Intra-op, Routine Given 07/21/2018 4:41 PM EDT 10 mg Given 07/21/2018 4:14 PM EDT 50 mg documented in this encounter Care Teams Equine Science Instructor Relationship Specialty Start Date End Date Joel Mccarthy MD PCP - General General Internal Medicine 06/29/18 1 [address] [facility] [address] [place] [address] documented as of this encounter
--- OUTSIDE RECORDS SUMMARY | 2021-10-30 01:53 | XMS_ITS | Encounter Summary ---
:1960 [place] [address] Care Team Providers Name Role Phone Joel Mccarthy MD Primary Care Provider Encounter Details Date Type Department Care Team Description 08/11/2018 Tech Visit Vascular Lab at [place], Critical lower limb [facility] [place] [id number] Social History Tobacco Use Types Packs/Day Years Used Date Former Smoker 1 40 Smokeless Tobacco: Never Used Alcohol Use Standard Drinks/Week Comments Yes 4 (1 standard drink = 0.6 oz pure alcoho l) Sex Assigned at Date Recorded Not on file documented as of this encounter Plan of Treatment Not on filedocumented as of this encounter Procedures Procedure Name Priority Date/Time Associated Diagnosis Comme nts ARTERIAL DUPLEX LEG Routine 08/11/2018 12:47 PM Critical lower limb Results for this UNILA EDT ischemia procedure are i n the results section. REYMUNDO, LEGS, MULTIPLE Routine 08/11/2018 12:47 PM Critical lower limb Results for this LEVELS EDT ischemia procedure are i n the results section. documented in this encounter Results REYMUNDO, legs, multiple levels (08/11/2018 12:47 PM EDT) Component Value Ref Test Analysis Performed At [facility] gist Range Method Time Signature VB Text Department: Vascular Surgery Lab [facility] Report Patient: [id number] (OLEG LORENZO) CPT: 48306 ICD10: I73.9;I99.8 Referring Physician: JHONNY ONEAL MD ?? Phone: Indications: s/p Right SFA stent now for f/u exam c/o right foot pain; ? patency Diabetes mellitus: Yes ICD10 Diagnosis Code: I73.9, I99.8 Findings: Right ?Pressure (mm Hg) ?? REYMUNDO ??Waveform ?TBI ?? Brachial Artery ?118 ? Dorsalis Pedis (Ankle) Arter y ?114 ? 0.91 ??Bi-Triphasic ? Posterior Tibial (Ankle) Art rose ??103 ? 0.82 ??[place]-Biphasic ? Great Toe ?57 ? 0.46 ?? Left ? Pressure (mm Hg) ?? REYMUNDO ??Waveform ?TBI ?? Brachial Artery ?125 ? Dorsalis Pedis (Ankle) Arter y ?78 ?0.62 ??[place]- Biphasic ? Posterior Tibial (Ankle) Art rose ??80 ?0.64 ??[place]- Biphasic ? Great Toe ?53 ? 0.42 ?? Interpretation: RIGHT: Mild lower extremity arterial occlusive disease to th e distal calf level. Toe-brachial index substantially lower than ankle-bra chial index indicates presence of modera te arterial occlusive disease in the distal calf and foot. Significant improvement compared to previous exam done 08/11/2018. LEFT: Moderate lower extremity arterial occlusive disease. N o significant change compared to previous exams. Previous ABIs with change from previous value: Date ?RIGHT DP ?? RIGHT PT ?? RT GR TOE ??RT Sec T OE ??0.70 ? 0.68 ? 0.47 ? ---- ??0.74(+.04) 0.73(+.05) 0.50(+.03) ---- ??0.40(-.34) 0.36(-.37) 0.46(-.04) ---- ??0.34(-.06) 0.00(-.36) 0.06(-.40) ---- ??0.25(-.09) 0.33(+.33) 0.11(+.05) ---- ??0.47(+.22) 0.32(-.01) 0.16(+.05) ---- Current ? 0.91(+.44) 0.82(+.50) 0.46(+.30) ---- Date ?LEFT DP ?LEFT PT ?LT GR TOE LT Sec T OE ??0.80 ? 0.82 ? 0.72 ? ---- ??0.91(+.11) 0.94(+.12) 0.88(+.16) ---- ??0.84(-.07) 0.83(-.11) 0.67(-.21) ---- ??0.57(-.27) 0.63(-.20) 0.57(-.10) ---- ??0.64(+.07) 0.68(+.05) 0.55(-.02) ---- ??0.75(+.11) 0.79(+.11) 0.59(+.04) ---- Current ? 0.62(-.13) 0.64(-.15) 0.42(-.17) ---- Electronically Signed by: JHONNY ONEAL MD on 2018-08-11 01: 37:56 PM VB Text End of Report [facility] Report Specimen (Source) Anatomical Collection Method Collection Time Re ceived Time Location / / Volume Laterality 08/11/2018 12:47 PM EDT Jhonny Oneal MD VASCULAR ORDERABLES Performing Organization Address City/State/ZIP Code Phon e Number [facility] Arterial Duplex Leg, Unil (08/11/2018 12:47 PM EDT) Component Value Ref Test Analysis Performed At [facility] Range Method Time Signature VB Text Department: Vascular Surgery Lab [facility] Report Patient: [id number] (OLEG LORENZO) CPT: 36753 ICD10: I74.3;I99.8 Referring Physician: JHONNY ONEAL MD ?? Phone: Indications: s/p Right proximal SFA sten t placement for proximal SFA occlusion now for f/u exam; ? patency ICD10 Diagnosis Code: I74.3, I99.8 Findings: Stents ?PSV (cm/s) ??EDV ??Location ? Stent 1 - Pre ? 90 ?? 12 ??Commo n femoral, Distal ? Stent 1 - Prox ? 158 ?? 38 ??Right Stent ? Stent 1 - Mid ?112 ?? 26 ??Right Stent ? Stent 1 - Distal ?84 ?? 15 ??Right Stent ? Stent 1 - Post ? 102 ?? 26 ??Superficial Femora l, Proximal ?? Right ? PSV (cm/s ) ??EDV ?? Common Femoral Artery, Proximal ?106 ?? 26 ? ? Common femoral artery, Distal ? 78 ?? 16 ?? Profunda Femoris Artery, Proximal ?145 ?? 12 ?? Superficial Femoral Artery, Mid ?207 ?? 43 ? ? Superficial Femoral Artery, Distal ? 152 ?? 40 ?? Interpretation: RIGHT: Patent common femoral artery and stented proximal femoral artery with no evidence of stenosis. Significant improvement compared to pr e-op exam done 07/20/2018. Patent poarch femoral artery with elevated velocities (PSV-207 cm/s) in the mid thigh at threshold for >50% stenosis. This is a new finding. Electronically Signed by: JHONNY ONEAL MD on 2018-08-11 01: 51:14 PM VB Text End of Report [facility] Report Specimen (Source) Anatomical Collection Method Collection Time Re ceived Time Location / / Volume Laterality 08/11/2018 12:47 PM EDT Jhonny Oneal MD VASCULAR ORDERABLES Performing Organization Address City/State/ZIP Code Phon e Number [facility] documented in this encounter Visit Diagnoses Diagnosis Critical lower limb ischemia Unspecified circulatory system disorder documented in this encounter Care Teams Optical Engineering Manager Relationship Specialty Start Date End Date Joel Mccarthy MD PCP - General General Internal Medicine 06/29/18 [address] [place] [address] documented as of this encounter
--- OUTSIDE RECORDS SUMMARY | 2021-10-30 01:53 | XMS_ITS | Encounter Summary ---
:1960 Author Organization [facility] [place] [address] Care Team Providers Name Role Phone Joel Mccarthy MD Primary Care Provider Reason for Referral Consultation (Routine) - Closed Specialty Diagnoses / Procedures Referred By Contact Refer red To Contact Unknown Specialty Diagnoses Tobacco abuse Kiet Almodovar MD [address] CARDIOLOGY DEPT [address] [address] Referral ID Status Reason Start Date Expiration Date Visits V isits Requested Authorized [id number] Closed Consult Only 07/25/2019 01/21/2020 1 1 Reason for Visit Auth/Cert Specialty Diagnoses / Procedures Referred By Contact Refer red To Contact Diagnoses Myocardial infarction NE Referral ID Status Reason Start Date Expiration Date Visits Requ ested Visits Authorized [id number] 1 1 Encounter Details Date Type Department Care Team Description 07/24/2019 - Hospital Intermediate Cardiac Kiet Almodovar ry artery disease, angina presence unspecified, unspecified vessel or lesion type, unspecified whether ho-chunk or transplanted heart; 07/25/2019 Encounter Care Unit Ana Lawrence MD Tobacco abuse; [facility] [place] [id number] [phone] Social History Tobacco Use Types Packs/Day Years Used Date Former Smoker 1 40 Smokeless Tobacco: Never Used Alcohol Use Standard Drinks/Week Comments Yes 4 (1 standard drink = 0.6 oz pure alcoho l) Sex Assigned at Date Recorded Not on file documented as of this encounter Last Filed Vital Signs Vital Sign Reading [...] Mass Index 24.8 07/24/2019 3:40 AM EDT documented in this encounter Discharge Summaries Kiet Almodovar MD - 07/25/2019 9:24 AM EDT Discharge Summary Patient Name: Oleg Berry Patient Age: 58 y.o. Language: Greenlandic Race: White Ethnicity: Not nor Admit date: 07/24/2019 Discharge date and time: 07/25/2019 Attending Physician: Kiet Almodovar MD Discharge Physician: Kiet Almodovar MD ID: Oleg Berry is a 58 y.o. male with PMH notable for DM II, HLD, HTN, OA, CAD s/p CABG x4 in 2017 who is here due to concern for STEMI found to have hypertensive urgency (symptoms and EKG changes) due to medical noncompliance 2/2 finances. Follow-up Recommendations for Providers: Patient was admitted with concerns of a STEMI due to LADY changes in the anterior leads. With negative troponins and an unchanged TTE, atypical anginal symptoms and ST changes were thought to be 2/2 hypertension. -He was discharged with carvedilol and lisinopril. Please f/u and dose adjust as tolerated. -f/u CBC, CMP -HbA1c on admission was 11.6. He should be considered for insulin therapy. Given his financial constraints, he was discharged on metformin only as he felt he could not afford insulin at this time. Please consider insulin at follow-up after discussion with patient. Pending Studies and Lab Data: none Discharge Diagnoses (Hospital Problems) and Secondary Diagnoses (Chronic Problems): Active Hospital Problems Diagnosis ??? Myocardial infarction Resolved Hospital Problems No resolved problems to display. Active Non-Hospital Problems Diagnosis ??? Critical lower limb ischemia ??? Leg pain, bilateral ??? Aortoiliac occlusive disease ??? S/P CABG (coronary artery bypass graft) ??? Atherosclerosis of ho-chunk artery of right lower extremity with intermittent claudication ?? 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 ??? Hypertension ??? Financial difficulties--- barrier to medication use ??? Coronary artery disease 06/2016: NSTEMI. Cath showing 3vD. Surgery recommended. ??? Non ST elevation NE due to severe 3vD-- awaiting for CABG Tuesday ??? Diabetes mellitus, type 2 ??? Hyperlipidemia ??? Osteoarthritis History of Presentation (per 07/24/2019 Admission H&P): Patient states that he had pain in his bilateral palms started on Tuesday. He noticed pain in his hands that came and went over the course of the weekend. Today, the pain was the worst it has been, 10/10. He denies any shortness of breath or chest pain. He states he has had previous heart attacks that have presented with bilateral hand pain, and right shoulder pain. The pain today feels similar to pain he had with previous heart attacks. He told his girlfriend about the pain, and she then called EMS. ?? He states that he has been dealing with chronic pain in the hips, legs, and feet for years, and thatsometimes he thinks it would be easier to be than endure the pain. He has tried numerous different therapies for his pain with his PCP, without success. He states what works best is warm compresses on his hips, which then alleviates the pain distally. Also struggles with neuropathy in the bilateral LEs. ?? Patient is on social security/disability, and states that finances are a significant problem for him. He has not taken any medicines since December of 2018, as he had to decide between paying for his medicines or paying for heating oil. ?? At the OSH, EKG was concerning for ST elevations in V1 and V2 with depressions in V6. Troponin at the OSH was negative. Of note, he was quite hypertensive at the time of initial assessment. The patientwas loaded with aspirin 324 mg and 600 mg plavix and started on a heparin drip. On presentation, patient does not report any pain in his palms. Only reports pain from his bilateral legs. ?? Hospital Course: Oleg Berry was admitted to the Hospital Medicine Service on 07/24/2019. The following issues were addressed and he was discharged on 07/25/2019. #Suspected STEMI Mr. Berry's palmar pain had resolved by the time he reached [facility]. His troponin remained negative, and his echo didn't demonstrate any new wall motion abnormalities that could be attributed to a new ischemia. He was medically managed without any new symptoms at the time of discharge. #DMII -On admission, his hemoglobin A1c was 11.6, and the patient stated he had not been on his home diabetes medications since he had stopped taking all of his medications back in December. He was continued on an ISS while inpatient and was discharged on 1000 mg metformin BID. Diagnostics: TTE 07/24/19 SUMMARY: ?? 1. The left ventricular chamber size is normal. There is low normal global left ventricular systolic function. The quantitative left ventricular ejection fraction by biplane Bruner's method is 52%. There are left ventricular segmental wall motion abnormalities present, as shown in the diagram below. 2. The right ventricle is normal in size. Right ventricular global systolic function is normal. Pulmonary artery hypertension could not be assessed due to inadequate tricuspid regurgitation jet. 3. The atria are normal in size. 4. There is no hemodynamically significant valve disease. 5. In comparison to a prior study dated 07/09/06, the pattern of inferior and lateral segmental wall motion abonormalities appears similar. There are now septal wall motion abnormalities, but the patient is noted to be status post CABG in 2017. 6. See remainder of report for additional findings. ? Findings : ?? Study Quality: Adequate ?? Left Ventricle: The left ventricular chamber size is normal. Mild concentric left ventricular hypertrophy is observed. Basal septal hypertrophy is observed.15 mm There is no evidence of LVOT obstruction. No ventricular septal defect is visualized. There is normal global left ventricular systolic function.low normal ?? The quantitative left ventricular ejection fraction by biplane Bruner's method is 52%. The quantitative left ventricular ejection fraction by 3-D rendering is 49%.Avg GLS -13% (GE) There are left ventricular segmental wall motion abnormalities present, as shown in the diagram below. The left ventricular diastolic filling pattern is consistent with impaired LV relaxation. Doppler assessment is consistent with normal left sided filling pressure. The basal anteroseptal, basal anterolateral, basal inferolateral, basal inferior, mid anteroseptal, mid anterolateral, and mid inferior wall segments are hypokinetic (score 2). The mid inferolateral wall segment is akinetic (score 3). Overall wallmotion score index is 1.56 ?? Left Atrium: The left atrium is normal in size. There is no evidence of a patent foramen ovale by color Doppler. ?? Right Ventricle: The right ventricle is normal in size. Right ventricular global systolic function is normal. Pulmonary artery hypertension could not be assessed due to inadequate tricuspid regurgitation jet. ?? Right Atrium: The right atrium is normal in size. ?? Aortic Valve: The aortic valve is tricuspid. Systolic excursion of the aortic valve is normal. There is no evidence of aortic valve stenosis. There is no evidence of aortic regurgitation. ?? Mitral Valve: The mitral valve leaflets appear normal. There is trace mitral regurgitation present. ?? Tricuspid Valve: The tricuspid valve leaflets are morphologically normal. There is trace tricuspid regurgitation present. ?? Pulmonic Valve: The pulmonic valve appears normal. ?? Pericardium: The pericardium appears normal and there is no evidence of a pericardial effusion. A pericardial fat pad is visualized. ?? Aorta: There is mild dilatation of the aortic root.3.9 cm The ascending aorta is normal in size. ?? Pulmonary Artery: The main pulmonary artery appears normal. ?? Venous: The inferior vena cava appears normal in size. There is a greater than 50% respiratory change in the inferior vena cava dimension. ?? Misc: There is no hemodynamically significant valve disease. See remainder of report for additional findings. Two-dimensional echo, spectral Doppler and color Doppler performed. ?? Optison contrast (one 3 ml vial) was used to enhance endocardial definition. Excess contrast was discarded. ?? Chambers 2D Value Units (Range) IVSd (2D) 1.46 cm LVPWd (2D) 1.16 cm IVS:LVPW ratio (2D) 1.26 ratio RWT (2D) 0.54 ratio RWT PW (2D) 0.48 ratio LVIDd (2D) 4.88 cm LVIDs (2D) 3.73 cm LVIDd (2D) index 2.44 cm/m2 LVIDs (2D) index 1.87 cm/m2 LV FS (2D) 23.54 % EF Teichholz (2D) 46.93 % Ao root diameter (2D3.9 cm (2.1 - 3.6) Ascending Ao 3.5 cm (2 - 3.5) ?? Volumes/Mass Value Units (Range) LA Area 4 CH 18 cm2 (<21) LA ESV BP (A/L) inde29.37 ml/m2 RA AREA 4CH 15 cm2 LV ESV SP 4CH (MOD) 47.63 ml LV ESV SP 2CH (MOD) 49.09 ml LV EDV BP 106.86 ml LV ESV BP 51.35 ml LV EDV BP index 53.5 ml/m2 LV ESV BP index 25.71 ml/m2 BP EF (MOD) 51.94 % LV mass (2D) 255.93 g LV mass (2D) index 128.14 g/m2 ?? Diastolic/Systolic Function Value Units (Range) MV E-wave Vmax 0.66 m/sec MV deceleration spiz846.75 msec MV A-wave Vmax 0.99 m/sec MV E:A ratio 0.67 ratio LV septal e' Vmax 0.07 m/sec LV lateral e' Vmax 0.11 m/sec LV average e' Vmax 0.09 m/sec LV E:e' septal ratio9.4 ratio LV E:e' lateral rati5.98 ratio LV average E:e' rati7.31 ratio ? Wall Motion: ?? Segment Name Rest ?? Base-Anteroseptal Hypokinetic Base-Anterior Normal Base-Anterolateral Hypokinetic Base-Posterolateral Hypokinetic Base-Inferior Hypokinetic Base-Inferoseptal Normal Mid-Anteroseptal Hypokinetic Mid-Anterior Normal Mid-Anterolateral Hypokinetic Mid-Posterolateral Akinetic Mid-Inferior Hypokinetic Mid-Inferoseptal Normal [place]-Septal Normal [place]-Anterior Normal [place]-Lateral Normal [place]-Inferior Normal [place]-Tip Normal Important Studies and Lab Data: DISCHARGE BASIC LABS: Recent Labs 07/25/19 0507 07/24/19345 WBC 9.4 8.4 HGB 15.0 13.9 HCT 45.1 42.7 PLATELET 202 205 Recent Labs 07/25/19 05007/24/19345 NA 137 142 K 3.9 3.8 CL 101 104 CO2 22 22 BUN 15 11 CREATININE 0.69* 0.69* No results for input(s): BILITOT, BILIDIR, AST, ALT, ALKPHOS in the last 168 hours. No results for input(s): INR, PTT in the last 168 hours. OTHER [facility] LABS: Recent Labs 07/24/19 034 HA1C 11.6* Recent Labs 07/24/19 034 TSH 3.94 Recent Labs 07/24/19345 HDL 31 LDLCHOL 149 CHOLHDL 7.4 TRIG 240 CHLPL 228 Microbiology: No micro ordered Discharge Conditions/Prognosis: Upon discharge the pt is hemodynamically stable, afebrile, fully ambulatory without holding down food/drink, and pain controlled with stable oral regimen. Vital Signs: Last value Range last 24 hrs Temperature Temp: 36.8 ??C (98.2 ??F) Temp: [36.3 ??C (97.3 ??F)-36.8 ??C (98.2 ??F)] Heart Rate Heart Rate: 63 Heart Rate: [63-79] Blood Pressure BP: 165/75 BP: (156-175)/(75-88) Respiratory Rate Resp: 18 Resp: [17-18] SpO2 SpO2: 99 % SpO2: [99 %-100 %] Exam: General: Resting comfortably in no acute distress CV: Regular rate and rhythm Pulm: Clear to auscultation bilaterally and breathing comfortably on room air Abd: Positive bowel sounds in all four quadrants and no tenderness to palpation Ext: No edema noted in bilateral lower extremities Neuro: Alert and oriented Discharge to: home without services Discharge Medications: Your Medications New Medications Dose Details carvediloL 12.5 mg Tab Commonly known as: Coreg Take 1 tablet by mouth 2 times daily (with meals). 12.5 mg Quantity: 90 tablet Refills: 3 nitroGLYcerin 0.4 mg Subl Commonly known as: Nitrostat Place 1 tablet under the tongue every 5 minutes as needed for Chest pain. 0.4 mg Quantity: 60 tablet Refills: 0 Continued medications with new dosing Dose Details lisinopriL 20 mg Tab Commonly known as: Prinivil;Zestril Take 1 tablet by mouth daily. What changed: ?? medication strength ?? how much to take 20 mg Quantity: 90 tablet Refills: 3 metFORMIN 1,000 mg Tab Commonly known as: GLUCOPHAGE Take 1 tablet by mouth 2 times daily (with meals). What changed: ?? medication strength ?? how much to take ?? additional instructions 1,000 mg Quantity: 180 tablet Refills: 3 Continued medications, unchanged Dose Details acetaminophen 500 mg Tab Commonly known as: Tylenol Take 2 tablets by mouth every 6 hours as needed for Pain. 1,000 mg Quantity: 30 tablet Refills: 1 aspirin 81 mg Chew Take 81 mg by mouth daily. 81 mg Quantity: 30 tablet Refills: 3 atorvastatin 80 mg Tab Commonly known as: Lipitor Take 1 tablet by mouth every evening. 80 mg Quantity: 30 tablet Refills: 3 FLUoxetine 40 mg Cap Commonly known as: PROzac Take 80 mg by mouth daily. 80 mg Refills: 0 gabapentin 400 mg Cap Commonly known as: Neurontin Take 400 mg by mouth 3 times daily. 400 mg Refills: 0 Insulin Syringe-Needle U-100 1 mL 31 gauge x 5/16 Syrg 1 [facility]Non-Drug; Combo Route) route 2 times daily. 1 Box Quantity: 100 Syringe Refills: 3 nicotine 21 mg/24 hr Pt24 Commonly known as: NICODERM CQ Place 1 patch onto the skin daily. 1 patch Quantity: 28 patch Refills: 0 oxyCODONE 5 mg Tab Commonly known as: Roxicodone Take 1 tablet by mouth every 4 hours as needed for Pain. 5 mg Quantity: 15 tablet Refills: 0 sertraline 50 mg Tab Commonly known as: Zoloft Take 50 mg by mouth daily. 50 mg Refills: 0 STOPPED Medications clindamycin 300 mg Cap Commonly known as: CLEOCIN clopidogreL 75 mg Tab Commonly known as: Plavix furosemide 20 mg Tab Commonly known as: Lasix glipiZIDE 10 mg Tab Commonly known as: GLUCOTROL isosorbide mononitrate 60 mg Tablet sr Commonly known as: IMDUR metoprolol 100 mg Tab Commonly known as: LOPRESSOR nicotine polacrilex 4 mg Lozg Commonly known as: COMMIT omeprazole 40 mg Cpdr Commonly known as: PriLOSEC Updated Allergies/ADRs: Allergies Allergen Reactions ??? Effexor [Venlafaxine] Increased blood pressure Instructions Given to Patient at Discharge: Patient Instructions Patient Instructions on Discharge to Home Why you were hospitalized -You were hospitalized with concerns of a heart attack. The new bilateral arm pain was a result of your high blood pressure which can be managed with oral mediations. Please continue to take your medications daily. New Medications carvediloL??(Coreg)??- take half tablet twice a day until 07/26/19. Starting 07/27/19 take a full tablettwice a day nitroGLYcerin??(Nitrostat)?? -place one tablet under your tongue if you have new chest pain Medication changes: lisinopriL??(Prinivil;Zestril)?? -dose increased to 20 mg daily metFORMIN??(GLUCOPHAGE)??- take 1000 mg twice daily Medications stopped: clindamycin??300 mg Cap??(CLEOCIN)?? clopidogreL??75 mg Tab??(Plavix)?? furosemide??20 mg Tab??(Lasix)?? glipiZIDE??10 mg Tab??(GLUCOTROL)?? isosorbide mononitrate??60 mg Tablet sr??(IMDUR)?? metoprolol??100 mg Tab??(LOPRESSOR)?? nicotine polacrilex??4 mg Lozg??(COMMIT)?? omeprazole??40 mg Cpdr??(PriLOSEC)?? When to call your doctor: -Chest pain, worsening shortness of breath, fatigue with usual exertion, or new rest/night time symptoms. -If you become short of breath, cannot lie down to sleep, or have swelling in your legs/ankles or abdomen, contact your health care provider. -Call if you have reduced urination during the day or increased urination at night. -Call for signs of increased wound drainage, redness, swelling, or increased pain at the site of your cardiac cath. -Call if you develop a temp >100.5 Activity level: -No hunting, skiing, jogging, snow shoveling, snowmobiling, lawn mowing, swimming, golf or tennis until after your return appointment with your family doctor. -Do not ride motorcycles, tractors or horses until cleared by your doctor. Diet: -Heart healthy: low salt, low fat, low concentrated sweets. Remember to avoid added salt, canned foods, processed foods (ie hot dogs, sausage, cold meats), and foods naturally high in salt, such as potato chips or pizza. Driving: -no restrictions Shower/Bath: -no restrictions Exercise: -Exercise 5-7 days per week as tolerated with gradual increase to 30 minutes per day. Smoking cessation: -If you are currently a smoker, you are strongly urged to stop smoking! Smoking increases the severity and incidence of heart disease, and is a risk factor for cancer and emphysema. Your health care provider can provide specific measures to assist you, including nicotine supplements, anti-anxiety meds, and support groups in your community. 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 If you do not receive a phone call in 1 wk, please give us a call. Your Inpatient Medical [place] [facility] Name(s) of your inpatient provider(s): Kiet Almodovar MD- Attending Physician Jyoti Silva MD- Zipper Setter Chainstitch Lakia Latif MD-Resident Physician Aleida Thomson MD- Senior Policy Associate Physician Call your doctor if: Chest pain, shortness of breath, pain or swelling in legs occurs. If you have non-emergent questions between now and the time of your follow up appointments: During 8am-5pm Tuesday through Tuesday call [phone] to speak with a nurse in the cardiology clinic All other times call [phone] and ask to speak to the wool grower carton waxing machine operator. General Instructions Congratulations for quitting smoking! Your quit date for quitting smoking is 07/24/2019 You have chosen to quit smoking using Nicotine patches daily and lozenges as needed. ?? Nicotine patch instructions: Use the 21 mg nicotine patches daily for 4 weeks then, Decrease to the 14 mg patches daily for 2 weeks then, Decrease to the 7 mg patches daily for 2 weeks. ?? If at any time when you decrease the dose you feel an increase in cravings to smoke you may go back to the higher dose for another 2 weeks and then try to decrease the dose again. Do not hesitate to call if you have questions about this or are struggling with cravings or withdrawal symptoms. Place the patch on your skin in an area that has a minimal amount of hair, typically between the neck and waist or upper arms. Avoid placing it over scars or tattoos. Change the place where you put it on your skin daily. Remove the patch each morning and replace with a new patch. Fold the patch in half, with the sticky sides in and dispose of it safely, keeping it out of reach of children or pets. Some patients experience nightmares or bad dreams on the patch. If this happens you should remove the patch at bedtime and just replace it each morning. ?? The nicotine patch releases a constant amount of nicotine in the body. The nicotine dissolves right through the skin and enters the body. Less nicotine is obtained through the patch than in cigarettes.The patch does NOT contain all the tars and poisonous gases that are found in cigarettes. ?? Side effects from wearing the patch can include: headaches, dizziness, upset stomach, weakness, blurred vision, vivid dreams, mild itching and burning on the skin, and diarrhea. ?? Wearing the nicotine patch decreases the chances of suffering from several of the major smoking withdrawal symptoms such as tenseness, irritability, drowsiness and lack of concentration. ?? The nicotine patch can be combined with other Nicotine Replacement Therapy products such as Nicotinegum or lozenges. Ask your healthcare provider about combination therapy to increase your chances of successfully quitting tobacco for good! ?? The US Food and Drug Administration has recently released a statement that there are no significant risks associated with the use of Nicotine Replacement Therapy products for longer than the labeled number of weeks of use. ?? If you are still having strong cravings to smoke or are struggling to quit completely while using the Nicotine patch talk with your healthcare provider for additional help. ?? References: Treating Tobacco Use and Dependence, Clinical Practice Guideline 2008 Update, U.S. Department of Health and Human Services, August 2007 Nicotine lozenge instructions: Use the 4 mg lozenges as soon as you wake up, 30 minutes before mealsand at bedtime at a minimum. ?? Nicotine lozenges must be used properly in order to be effective. Nicotine from the lozenge is absorbed through the mucous membranes in your mouth at a certain acidity or pH level. Therefore do not eator drink anything but water for 15 minutes prior to or during use. ?? Directions: Place the nicotine lozenge on the tongue or between the cheek and the jaw. Allow the lozenge to dissolve. Do not bite, chew or swallow whole or in pieces. Do not ???work?? the lozenge likea hard candy or you may create too much saliva and swallow this extra liquid which may upset your stomach. The most common side effects from Nicotine lozenges are nausea, hiccups and heartburn. This can be reduced by following the instructions for proper use. ?? Nicotine lozenges come in two strengths, 2 mg and 4 mg. You should use the 2 mg lozenge if you smokeyour first cigarette more than 30 minutes after waking. You should use the 4 mg lozenge if you smokeyour first cigarette less than 30 minutes after waking. You can use up to 20 lozenges a day. ?? Nicotine lozenges can be combined with Nicotine patches for increased chances of successfully quitting tobacco for good! ?? The US Food and Drug Administration has recently released a statement that there are no significant risks associated with the use of Nicotine Replacement Therapy products for longer than the labeled number of weeks of use. ?? References: Treating Tobacco Use and Dependence, Clinical Practice Guideline 2007 Update, U.S. Department of Health and Human Services, August 2007 Future Appointments and Orders Future Orders Complete By Expires Referral to [email or web address] [BCX541 Custom] As directed Process Instructions: If no progress note charted, please enter Clinical details in comments. Scheduling Instructions: Questions: My question or request is: tobacco cessation: [place]: [phone] Patient consented to referral to Quitline?: Yes Provider Contact Information: Joel Mccarthy MD [address] [facility] [address] / [facility] [id number] Discharge References/Attachments: Discharge References/Attachments None documented in this encounter Discharge Instructions Discharge InstructionsAnastacio Son RN - 07/24/2019 2:24 PM EDT Congratulations for quitting smoking! Your quit date for quitting smoking is 07/24/2019 You have chosen to quit smoking using Nicotine patches daily and lozenges as needed. ?? Nicotine patch instructions: Use the 21 mg nicotine patches daily for 4 weeks then, Decrease to the 14 mg patches daily for 2 weeks then, Decrease to the 7 mg patches daily for 2 weeks. ?? If at any time when you decrease the dose you feel an increase in cravings to smoke you may go back to the higher dose for another 2 weeks and then try to decrease the dose again. Do not hesitate to call if you have questions about this or are struggling with cravings or withdrawal symptoms. Place the patch on your skin in an area that has a minimal amount of hair, typically between the neck and waist or upper arms. Avoid placing it over scars or tattoos. Change the place where you put it on your skin daily. Remove the patch each morning and replace with a new patch. Fold the patch in half, with the sticky sides in and dispose of it safely, keeping it out of reach of children or pets. Some patients experience nightmares or bad dreams on the patch. If this happens you should remove the patch at bedtime and just replace it each morning. ?? The nicotine patch releases a constant amount of nicotine in the body. The nicotine dissolves right through the skin and enters the body. Less nicotine is obtained through the patch than in cigarettes.The patch does NOT contain all the tars and poisonous gases that are found in cigarettes. ?? Side effects from wearing the patch can include: headaches, dizziness, upset stomach, weakness, blurred vision, vivid dreams, mild itching and burning on the skin, and diarrhea. ?? Wearing the nicotine patch decreases the chances of suffering from several of the major smoking withdrawal symptoms such as tenseness, irritability, drowsiness and lack of concentration. ?? The nicotine patch can be combined with other Nicotine Replacement Therapy products such as Nicotinegum or lozenges. Ask your healthcare provider about combination therapy to increase your chances of successfully quitting tobacco for good! ?? The US Food and Drug Administration has recently released a statement that there are no significant risks associated with the use of Nicotine Replacement Therapy products for longer than the labeled number of weeks of use. ?? If you are still having strong cravings to smoke or are struggling to quit completely while using the Nicotine patch talk with your healthcare provider for additional help. ?? References: Treating Tobacco Use and Dependence, Clinical Practice Guideline 2008 Update, U.S. Department of Health and Human Services, August 2007 Nicotine lozenge instructions: Use the 4 mg lozenges as soon as you wake up, 30 minutes before mealsand at bedtime at a minimum. ?? Nicotine lozenges must be used properly in order to be effective. Nicotine from the lozenge is absorbed through the mucous membranes in your mouth at a certain acidity or pH level. Therefore do not eator drink anything but water for 15 minutes prior to or during use. ?? Directions: Place the nicotine lozenge on the tongue or between the cheek and the jaw. Allow the lozenge to dissolve. Do not bite, chew or swallow whole or in pieces. Do not ???work?? the lozenge likea hard candy or you may create too much saliva and swallow this extra liquid which may upset your stomach. The most common side effects from Nicotine lozenges are nausea, hiccups and heartburn. This can be reduced by following the instructions for proper use. ?? Nicotine lozenges come in two strengths, 2 mg and 4 mg. You should use the 2 mg lozenge if you smokeyour first cigarette more than 30 minutes after waking. You should use the 4 mg lozenge if you smokeyour first cigarette less than 30 minutes after waking. You can use up to 20 lozenges a day. ?? Nicotine lozenges can be combined with Nicotine patches for increased chances of successfully quitting tobacco for good! ?? The US Food and Drug Administration has recently released a statement that there are no significant risks associated with the use of Nicotine Replacement Therapy products for longer than the labeled number of weeks of use. ?? References: Treating Tobacco Use and Dependence, Clinical Practice Guideline 2008 Update, U.S. Department of Health and Human Services, August 2007 Patient InstructionsLakia Latif MD - 07/24/2019 9:55 AM EDT Patient Instructions on Discharge to Home Why you were hospitalized -You were hospitalized with concerns of a heart attack. The new bilateral arm pain was a result of your high blood pressure which can be managed with oral mediations. Please continue to take your medications daily. New Medications carvediloL??(Coreg)??- take half tablet twice a day until 07/26/19. Starting 07/27/19 take a full tablettwice a day nitroGLYcerin??(Nitrostat)?? -place one tablet under your tongue if you have new chest pain Medication changes: lisinopriL??(Prinivil;Zestril)?? -dose increased to 20 mg daily metFORMIN??(GLUCOPHAGE)??- take 1000 mg twice daily Medications stopped: clindamycin??300 mg Cap??(CLEOCIN)?? clopidogreL??75 mg Tab??(Plavix)?? furosemide??20 mg Tab??(Lasix)?? glipiZIDE??10 mg Tab??(GLUCOTROL)?? isosorbide mononitrate??60 mg Tablet sr??(IMDUR)?? metoprolol??100 mg Tab??(LOPRESSOR)?? nicotine polacrilex??4 mg Lozg??(COMMIT)?? omeprazole??40 mg Cpdr??(PriLOSEC)?? When to call your doctor: -Chest pain, worsening shortness of breath, fatigue with usual exertion, or new rest/night time symptoms. -If you become short of breath, cannot lie down to sleep, or have swelling in your legs/ankles or abdomen, contact your health care provider. -Call if you have reduced urination during the day or increased urination at night. -Call for signs of increased wound drainage, redness, swelling, or increased pain at the site of your cardiac cath. -Call if you develop a temp >100.5 Activity level: -No hunting, skiing, jogging, snow shoveling, snowmobiling, lawn mowing, swimming, golf or tennis until after your return appointment with your family doctor. -Do not ride motorcycles, tractors or horses until cleared by your doctor. Diet: -Heart healthy: low salt, low fat, low concentrated sweets. Remember to avoid added salt, canned foods, processed foods (ie hot dogs, sausage, cold meats), and foods naturally high in salt, such as potato chips or pizza. Driving: -no restrictions Shower/Bath: -no restrictions Exercise: -Exercise 5-7 days per week as tolerated with gradual increase to 30 minutes per day. Smoking cessation: -If you are currently a smoker, you are strongly urged to stop smoking! Smoking increases the severity and incidence of heart disease, and is a risk factor for cancer and emphysema. Your health care provider can provide specific measures to assist you, including nicotine supplements, anti-anxiety meds, and support groups in your community. 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 If you do not receive a phone call in 1 wk, please give us a call. [place] [facility] of your inpatient provider(s): Kiet Almodovar MD- Attending Physician Jyoti Silva MD- Zipper Setter Chainstitch Lakia Latif MD-Resident Physician Aleida Thomson MD- Senior Policy Associate Physician Call your doctor if: Chest pain, shortness of breath, pain or swelling in legs occurs. If you have non-emergent questions between now and the time of your follow up appointments: During 8am-5pm Tuesday through Tuesday call [phone] to speak with a nurse in the cardiology clinic All other times call [phone] and ask to speak to the wool grower carton waxing machine operator. documented in this encounter Medications at Time of Discharge Medication Sig Dispensed Refills Start Date End Date nitroGLYcerin (Nitrostat) Place 1 tablet 60 tablet 0 2019 0.4 mg Tablet, Sublingual under the tongue every 5 minutes as needed for Chest pain. carvediloL (Coreg) 12.5 mg Take 1 tablet by 90 tablet 3 04/2019 Tablet mouth 2 times daily (with meals). metFORMIN (GLUCOPHAGE) Take 1 tablet by 180 tablet 3 020 1,000 mg Tablet mouth 2 times daily (with meals). lisinopriL Take 1 tablet by 90 tablet 3 07/25/2019 (Prinivil;Zestril) 20 mg mouth daily. Tablet oxyCODONE (ROXICODONE) 5 Take 1 tablet by 15 tablet 0 08/15 mg TabletIndications: PAD mouth every 4 hours (peripheral artery as needed for Pain. disease) sertraline (ZOLOFT) 50 mg Take 50 mg by mouth 0 Tablet daily. nicotine (NICODERM CQ) 21 Place 1 patch onto 28 patch 0 mg/24 hr Patch 24 hr the skin daily. acetaminophen (TYLENOL) Take 2 tablets by 30 tablet 1 07/16 500 mg Tablet mouth every 6 hours as needed for Pain. aspirin 81 mg Tablet, Take 81 mg by mouth 30 tablet 3 07/16 Chewable daily. atorvastatin (LIPITOR) 80 Take 1 tablet by 30 tablet 3 06/24 mg Tablet mouth every evening. Insulin Syringe-Needle 1 Box by 100 Syringe 3 07/16/2016 U-100 1 mL 31 gauge x 5/16 Misc.(Non-Drug; Syringe Combo Route) route 2 times daily. gabapentin (NEURONTIN) 400 Take 400 mg by 0 mg Capsule mouth 3 times daily. FLUoxetine (PROZAC) 40 mg Take 80 mg by mouth 0 Capsule daily. documented as of this encounter Progress Notes Aleida Rangel RN - 07/25/2019 10:42 AM EDT Patient A&OX3. Denies CP, pressure, SOB. Ambulating with walker independently. IV dc'd. Tele off. Summary reviewed with patient by MD. [facility] to [facility]. Kiet Almodovar MD - 07/25/2019 8:05 AM EDT Cardiology Inpatient- Day of Discharge Note S: The patient was seen with team during rounds. Medications were reviewed. The patient feels ready for discharge. The patient's bilateral palm pain has resolved entirely and there are no new complaints. O: Last value 24hr range T 36.8 ??C (98.2 ??F) Temp: [36.3 ??C (97.3 ??F)-36.8 ??C (98.2 ??F)] HR 63 Heart Rate: [63-84] BP 165/75 BP: (151-175)/(75-88) RR 18 Resp: [17-18] SpO2 99 % SpO2: [99 %-100 %] - Physical Exam: General: Resting comfortably in no acute distress CV: Regular rate and rhythm Pulm: Clear to auscultation bilaterally and breathing comfortably on room air Abd: Positive bowel sounds in all four quadrants and no tenderness to palpation Ext: No edema noted in bilateral lower extremities - Labs have been reviewed. A: - All questions answered. - OK for discharge - See discharge summary for details and follow-up plans. P: Discharge to home in stable condition - Follow-up appointments have been scheduled - Return precautions for worsening or changing symptoms Aleida Thomson MD PGY-1, Internal Medicine Team pager [phone] 07/25/2019 Cardiology Attending Note I interviewed and examined the patient during comprehensive bedside rounds. I concur with the summary of interval events, active hospital-focused problem list and plan of care as described in the note below. I personally reviewed the medications, laboratory results, treatment decisions and updated thepatient. Briefly Mr Berry is a 58 y.o. male with PMH notable for DM II, HLD, HTN, OA, CAD s/p CABGx4 in 2017 who is here as a transfer due to concern for STEMI. ECG at OSH showed LADY which has resolved upon arrival. He was also quite hypertensive during initial evaluation. Yesterday we worked in re-initiating his home medications, focusing on blood pressure control. It was felt that his ST changes were due to hypertensive urgency. We have attempted to place him on only $4 medications as he had stopped taking all of his meds due to monetary issues. He can not currently afford insulin so we will just do metformin for the time being thinking that this is better than nothing which was his alternative. We have up-titrated his BP meds as well. He is stable and ready for discharge today. The patient understands the plan and all questions were answered. Kiet Almodovar MD, [facility] Section of Cardiovascular Medicine [facility] Pad Assemblerbi data architect [employer] [facility] [employer] [facility] Myriam Velásquez MSW - 07/24/2019 7:52 AM EDT OPERATIONS EXECUTIVE Consult: assistance with medication costs OPERATIONS EXECUTIVE will continue to follow through admission for medication assistance resources. Will need to knowspecific medications that patient will be DC'ed on to place referrals and give appropriate resources. UPDATE: OPERATIONS EXECUTIVE will provide patient with Good RX coupons. [facility] [place] [place] Costs will be between ~$30-$35/mth. OPERATIONS EXECUTIVE inquired with patient about fuel assistance resources. Patient declined at this time stating he has already paid for fuel at this time and will hopefully be living elsewhere this time next year. OPERATIONS EXECUTIVE will continue to follow as needs are identified. CORTES Allen Pager: [phone] Desk: [phone] Wireless: [phone] documented in this encounter H&P Notes Kiet Almodovar MD - 07/24/2019 12:13 AM EDT Cardiology Service Resident History and Physical Patient Name: Oleg Berry Service: Cardiology S1 Admit Date: 07/24/2019 Hospital Day: 0 Patient Description: Oleg Berry is a 58 y.o. male with PMH notable for DM II, HLD, HTN, OA, CAD s/p CABGx4 in 2017 who is here due to concern for STEMI. Subjective: HPI: Patient states that he had pain in his bilateral palms started on Tuesday. He noticed pain in his hands that came and went over the course of the weekend. Today, the pain was the worst it has been, 10/10. He denies any shortness of breath or chest pain. He states he has had previous heart attacks that have presented with bilateral hand pain, and right shoulder pain. The pain today feels similar to pain he had with previous heart attacks. He told his girlfriend about the pain, and she then called EMS. He states that he has been dealing with chronic pain in the hips, legs, and feet for years, and thatsometimes he thinks it would be easier to be than endure the pain. He has tried numerous different therapies for his pain with his PCP, without success. He states what works best is warm compresses on his hips, which then alleviates the pain distally. Also struggles with neuropathy in the bilateral LEs. Patient is on social security/disability, and states that finances are a significant problem for him. He has not taken any medicines since December of 2018, as he had to decide between paying for his medicines or paying for heating oil. At the OSH, EKG was concerning for ST elevations in V1 and V2 with depressions in V6. Troponin at the OSH was negative. The patient was loaded with aspirin 324 mg and 600 mg plavix and started on a heparin drip. On presentation, patient does not report any pain in his palms. Only reports pain from hisbilateral legs. OSH Course: - Vitals notable for: T 36.7 HR 107 BP 145/85 RR 18 O2 98% - Labs notable for: Troponin <0.05 WBC 7.07 Hb 14.8 Plts 212 Na 141 K 3.9 Cl 103 CO2 26.8 BUN 13 Cr 0.88 Ca 8.9 Gluc 411 I Mag 1.7 T bili < 0.2 AST 11 ALT 18 Total protein 7.6 Albumin 3.4 Alk Phos 106 INR - 1.0 aPTT - 22.3 UA with 500 of glucose, otherwise benign ROS (positive in bold): General fevers, chills, night sweats, weight loss/gain HEENT changes in vision or hearing Card chest pain, palpitations Pulm SOB, cough, CARRILLO GI abd pain, nausea, vomiting, diarrhea, constipation dysuria, urinary frequency, urgency MS: arthritis, arthralgia, muscle aches Neuro weakness, numbness, tingling, L[place]UNAS Skin rash, skin lesions Psych depression, anxiety, difficulty sleeping Medications Prior to Admission: No current facility-administered medications on file prior to encounter. Current Outpatient Medications on File Prior to Encounter Medication Sig Dispense Refill ??? nicotine polacrilex (COMMIT) [address] inside cheek as needed for Smoking cessation. ??? oxyCODONE (ROXICODONE) 5 mg Tablet Take 1 tablet by mouth every 4 hours as needed for Pain. 15 tablet 0 ??? clindamycin (CLEOCIN) 300 mg Capsule Take 300 mg by mouth 3 times daily. ??? sertraline (ZOLOFT) 50 mg Tablet Take 50 mg by mouth daily. ??? metFORMIN (GLUCOPHAGE) 500 mg Tablet Take 1 tablet by mouth 2 times daily (with meals). 07/20: Donot take until instructed AFTER surgery 60 tablet 12 ??? nicotine (NICODERM CQ) 21 mg/24 hr [address] 1 patch onto the skin daily. 28 patch 0 ??? clopidogrel (PLAVIX) 75 mg Tablet Take 1 tablet by mouth daily. 90 tablet 3 ??? isosorbide mononitrate (IMDUR) 60 mg Tablet Sustained Release 24 hr take 1 tablet by mouth once daily 0 ??? furosemide (LASIX) 20 mg Tablet take 1 tablet by mouth once daily 0 ??? lisinopril (PRINIVIL;ZESTRIL) 5 mg Tablet Take 1 tablet by mouth daily. 90 tablet 11 ??? acetaminophen (TYLENOL) 500 mg Tablet Take 2 tablets by mouth every 6 hours as needed for Pain. 30 tablet 1 ??? aspirin 81 mg Tablet, Chewable Take 81 mg by mouth daily. 30 tablet 3 ??? atorvastatin (LIPITOR) 80 mg Tablet Take 1 tablet by mouth every evening. 30 tablet 3 ??? meTOPROLOL tartrate (LOPRESSOR) 100 mg Tablet Take 1 tablet by mouth 2 times daily. 60 tablet 12 ??? Insulin Syringe-Needle U-100 1 mL 31 gauge x 5/16 Syringe 1 Box by [facility].(Non-Drug; Combo Route) route 2 times daily. 100 Syringe 3 ??? gabapentin (NEURONTIN) 400 mg Capsule Take 400 mg by mouth 3 times daily. ??? glipiZIDE (GLUCOTROL) 10 mg Tablet Take 20 mg by mouth daily. ??? omeprazole (PRILOSEC) 40 mg Capsule, Delayed Release(E.C.) Take 40 mg by mouth daily. ??? FLUoxetine (PROZAC) 40 mg Capsule Take 80 mg by mouth daily. Allergies: Allergies Allergen Reactions ??? Effexor [Venlafaxine] Increased blood pressure Past Medical History: No past medical history on file. Past Surgical History: Procedure Laterality Date ??? PRO CABG, ARTERIAL, TWO N/A 07/12/2016 @CABG, USING 2 CORONARY ARTERIAL GRAFTS (WRVU 39.88) performed by Valentino Arredondo MD at [facility] OR ??? PRO CABG, ARTERY-VEIN, TWO N/A 07/12/2016 @CABG, TWO VENOUS GRAFTS & ARTERIAL GRAFT (WRVU 7.93) performed by Valentino Arredondo MD at [facility] OR ??? PRO ENDOSCOPY W/VIDEO-ASST VEIN HARVEST, CABG Right 07/12/2016 ENDOSCOPIC HARVEST VEIN(S) FOR CABG (WRVU 0.31) performed by Valentino Arredondo MD at [facility] OR ??? PRO EXPLORATION, FEMORAL ARTERY Right 07/21/2018 @EXPLORATION, W/WO LYSIS, FEMORAL ARTERY W\O SURGICAL REPAIR (WRVU 7.72) performed by Lamine Oneal MD at [facility] OR ??? PRO PLACE CATH/NEEDLE EXTREMITY ARTERY Right 07/21/2018 INTRODUCE CATHETER IN UPPER OR LOWER EXTREMITY ARTERY (EG ILIAC OR FEMORAL) (WRVU 2.01) performed by Lamine Oneal MD at [facility] MAIN OR ? ? PRO REVSC OPEN/PERCUTANEOUS ILIAC ART W STNT PLMT&ANGIO WENDI VSL UNILAT Right 06/28/2018 REVSC OPN\PRQ ILIAC ART W\STNT PLMT & ANGIOP SAME VSL (WRVU 10) performed by Lamine Oneal MD at [facility] OR ??? PRO THROMBOENDARTECTMY ILIOFEMORAL Right 06/28/2018 @ENDARTERECTOMY, ILIOFEMORAL W OR W/O PATCH GRAFT (WRVU 19.86) performed by Lamine Oneal MD at [facility] OR ??? VS ARTERIOGRAM LOWER EXTREMITY VASCULAR SURGERY 07/19/2018 VS Arteriogram Lower Extremity Vascular Surgery 07/19/2018 Lamine Oneal MD [facility] INTERVENTIONL RAD Patient Active Problem List Diagnosis Code ??? Diabetes mellitus, type 2 E11.9 ??? Hyperlipidemia E78.5 ??? Osteoarthritis M19.90 ??? Non ST elevation NE due to severe 3vD-- awaiting for CABG Tuesday I21.4 ??? Atherosclerosis of ho-chunk artery of right lower extremity with intermittent claudication I70.211 ??? Hypertension I10 ??? Financial difficulties--- barrier to medication use Z59.8 ??? Coronary artery disease I25.10 ??? S/P CABG (coronary artery bypass graft) Z95.1 ??? Leg pain, bilateral M79.604, M79.605 ??? Aortoiliac occlusive disease I74.09 ??? Critical lower limb ischemia I99.8 ??? Myocardial infarction I21.9 Social History: Lives: In [place], [place] by himself Works: Used to work as a [employer], has been on social security disability for the last several years Alcohol: Will drink about 3 beers in the typical week Tobacco: Active smoker, 1 PPD, has smoked for 40 years Drug use: Occasional marijuana use Family History: Family History Problem Relation Age of Onset ??? Myocardial Infarction Father 56 Objective: Vitals: T Temp: [37 ??C (98.6 ??F)] HR Heart Rate: [90-100] BP BP: (160-165)/(84-97) Art BP BP (Arterial Line): -- RR Resp: [9-22] SpO2 SpO2: [98 %-99 %] IO 07/22 0701 - 07/23 0700 In: 10 [I.V.:10] Out: 375 [Urine:375] Wt Last 71.3 kg (157 lb 3 oz) Admit 71.3 kg Physical Exam: - General: awake, alert, speaking in full sentences, answering questions and following commands appropriately - HEENT: No JVD/JVP. No hepatojugular reflux - Lung: CTAB - CV: RRR, S1, S2, no MRG. - Abd: soft, NT, ND - Extremities: warm, well-perfused, radial/DP/PT pulses easily palpable - Skin: Scattered scabs over the low back, likely from itching Labs: CBC: Recent Labs 07/24/19 0346 WBC 8.4 HGB 13.9 PLATELET 205 BMP: Recent Labs 07/24/19 0346 NA 142 K 3.8 CL 104 CO2 22 BUN 11 CREATININE 0.69* Calcium, Magnesium, Phosphate: Recent Labs 07/24/19 0346 CALCIUM 8.6 LFTs: No results for input(s): AST, ALT, ALKPHOS, BILITOT, BILIDIR in the last 168 hours. Troponin: No results for input(s): TROPONINT, CK in the last 168 hours. ABG: No results for input(s): PHART, TMI3MXG, PO2ART, IOT1DAH in the last 168 hours. Coags: No results for input(s): PT, PTT, INR in the last 7068 hours. Radiology/Studies: EKG 07/23/2019 LADY in V1 and V2 with STD in V6 Cardiac Cath 06/2016 Artery Lesion Intervention Left Main Mild diffuse disease of entire vessel segment Left Anterior Descending Mild diffuse disease. Mid segment with single discrete 65% stenosis. 90% hazy single discrete stenosis of the ostial segment of the first diag Left Circumflex Mild diffuse disease. 65% hazy long segmental stenosis of the proximal OM1 Right Coronary Mild diffuse disease. Mid segment of the RCA had a long segmental 65% stenosis. TTE 06/2016 SUMMARY: ?? 1. The left ventricular chamber size is normal. Moderate concentric left ventricular hypertrophy is observed. There is normal global left ventricular systolic function. The quantitative left ventricular ejection fraction by biplane Bruner's method is 56%. There are left ventricular segmental wall motion abnormalities present, as shown in the diagram below. The basal anterolateral, basal inferolateral, mid anterolateral, and mid inferolateral wall segments are akinetic (score 3). The basal inferior, mid inferior, apical lateral, and apical inferior wall segments are hypokinetic (score 2). 2. The right ventricle is normal in size. Right ventricular global systolic function is normal. Pulmonary artery hypertension could not be assessed due to inadequate tricuspid regurgitation jet. 3. There is no hemodynamically significant valve disease. 4. Other findings as noted in the full report. Assessment and Plan Oleg Berry is a 58 y.o. male with PMH notable for DM II, HLD, HTN, OA, CAD s/p CABGx4 in 2017 who is here due to concern for STEMI. Oleg is here for concern for STEMI. His EKG does show evidence of LADY in V1 and V2. However, he has had negative troponins at the outside hospital and is no longer having pain. Will check serialtroponins here with periodic EKGs. Will also continue on heparin drip for the time being. Will have to work on getting the patient assistance with his medications on discharge. #STEMI - S/p ASA 324 mg and clopidogrel 600 mg - DAPT: ASA 81 mg daily, clopidogrel 75 mg daily - Atorvastatin 80 mg daily - Metoprolol 12.5 Q6H, was previously on 100 twice daily, uptitrate as tolerated - Lisinopril 5 mg daily, previous home dose - Nitroglycerin PRN - Chest pain protocol - Daily EKG - Optimize electrolytes - Trend cardiac enzymes - TSH pending - Lipid panel - TTE today #DM II - Not taking any medicines at home currently - Was previously on glipizide and metformin - Will place on ISS, moderate - HbA1c pending #Chronic lower extremity pain #Neuropathy - Continue warm compresses - Tylenol 1g Q8H - Could consider restarting gabapentin #Depression - Patient has sertraline and fluoxetine listed - Patient expressed pain has him feeling depressed - Would be worth considering restarting one of these medicines during this hospitalization Diet: NPO diet (Give Meds) Prophylaxis: On Heparin drip Disposition: CVCC Code Status: Full Code Thang Gandara M.D. PGY-2 Internal Medicine 07/24/2019 Team Pager: [phone] Cardiology Attending Note I interviewed and examined the patient during comprehensive bedside rounds. I concur with the summary of interval events, active hospital-focused problem list and plan of care as described in the note below. I personally reviewed the medications, laboratory results, treatment decisions and updated thepatient. Briefly Mr Berry is a 58 y.o. male with PMH notable for DM II, HLD, HTN, OA, CAD s/p CABGx4 in 2017 who is here as a transfer due to concern for STEMI. ECG at OSH showed LADY which has resolved upon arrival. The patient never had chest pain but did have bilateral hand pain which is he anginal equivalent. He has not been taking any medications due to monetary issues. He was noted to be quite hypertensive upon admission. His initial trop was negative and it remains negative here. We have decided to call off the STEMI in the setting of normal troponin x2 and resolved hand pain. We will get an echo today and work on restarting all of the medications he has missed for the past few months. Goal will befor discharge tomorrow once medical therapy has been restarted. The patient understands the plan and all questions were answered. Kiet Almodovar MD, [facility] Section of Cardiovascular Medicine [facility] Pad Assemblerbi data architect [facility] of Medicine at [facility] documented in this encounter Miscellaneous Notes Plan of Care - KimKelvin Jie, PT - 07/25/2019 9:36 AM EDT Physical Therapy Evaluation Patient profile: Oleg Berry is a 58 y.o. male admitted on 07/24/2019. PMH notable for DM II, HLD, HTN, OA, CAD s/p CABGx4 in 2017 who is here??as a transfer from an OSH??due to concern for STEMI.??ECG at OSH showed LADY which has resolved upon arrival. He was also quite hypertensive during initial evaluation. It was felt that his ST changes were due to hypertensive urgency. Patient with the following active problems: No past medical history on file. Past Surgical History: Procedure Laterality Date ??? PRO CABG, ARTERIAL, TWO N/A 07/12/2016 @CABG, USING 2 CORONARY ARTERIAL GRAFTS (WRVU 39.88) performed by Valentino Arredondo MD at [facility] MAIN OR ??? PRO CABG, ARTERY-VEIN, TWO N/A 07/12/2016 @CABG, TWO VENOUS GRAFTS & ARTERIAL GRAFT (WRVU 7.93) performed by Valentino Arredondo MD at [facility] MAIN OR ??? PRO ENDOSCOPY W/VIDEO-ASST VEIN HARVEST, CABG Right 07/12/2016 ENDOSCOPIC HARVEST VEIN(S) FOR CABG (WRVU 0.31) performed by Valentino Arredondo MD at [facility] MAIN OR ??? PRO EXPLORATION, FEMORAL ARTERY Right 07/21/2018 @EXPLORATION, W/WO LYSIS, FEMORAL ARTERY W\O SURGICAL REPAIR (WRVU 7.72) performed by Lamine Oneal MD at [facility] MAIN OR ??? PRO PLACE CATH/NEEDLE EXTREMITY ARTERY Right 07/21/2018 INTRODUCE CATHETER IN UPPER OR LOWER EXTREMITY ARTERY (EG ILIAC OR FEMORAL) (WRVU 2.01) performed by Lamine Oneal MD at [facility] MAIN OR ? ? PRO REVSC OPEN/PERCUTANEOUS ILIAC ART W STNT PLMT&ANGIO WENDI VSL UNILAT Right 06/28/2018 REVSC OPN\PRQ ILIAC ART W\STNT PLMT & ANGIOP SAME VSL (WRVU 10) performed by Lamine Oneal MD at [facility] MAIN OR ??? PRO THROMBOENDARTECTMY ILIOFEMORAL Right 06/28/2018 @ENDARTERECTOMY, ILIOFEMORAL W OR W/O PATCH GRAFT (WRVU 19.86) performed by Lamine Oneal MD at [facility] MAIN OR ??? VS ARTERIOGRAM LOWER EXTREMITY VASCULAR SURGERY 07/19/2018 VS Arteriogram Lower Extremity Vascular Surgery 07/19/2018 Lamine Oneal MD [facility] INTERVENTIONL RAD Active Non-Hospital Problems Diagnosis ??? Critical lower limb ischemia ??? Leg pain, bilateral ??? Aortoiliac occlusive disease ??? S/P CABG (coronary artery bypass graft) ??? Atherosclerosis of ho-chunk artery of right lower extremity with intermittent claudication ??? Hypertension ??? Financial difficulties--- barrier to medication use ??? Coronary artery disease ??? Non ST elevation NE due to severe 3vD-- awaiting for CABG Tuesday ??? Diabetes mellitus, type 2 ??? Hyperlipidemia ??? Osteoarthritis Social History: Home set-up: Lives in a trailer, alone. Girlfriend comes to visit and helps with rides, grocery shopping, etc.. Has 2 sons. One lives nearby. Bathroom Set-up: Tub/shower Stairs: 5STE with a 2 railing support Baseline Mobility: Pt has a cane he uses intermittently or a FWW (which he uses less often). Pt has not worked for years. He is able to do all his own cooking (mostly canned foods) and does own bathingand dressing. Equipment at home: Fww and cane Fall history: Pt falls at least 1x/month. He has fallen on stairs, in the tub/shower, outside. Precautions/Special Considerations: Fall risk (must sit to shower, sunglasses outside, lights on at night, Up with L and down R foot first on stairs, 2 hand support for gait on uneven ground or with distances). HTN. Lines: PIV and telemetry Mobility and Positioning Recommendations: ?? Pt. to utilize FWW for distances out of room without physical support. ?? Please encourage up to chair for meal times as able. ?? Pt encouraged to ambulate, getting into the bathroom for toileting and walking out in the alonzo >/= 3 times daily as able. Subjective: ???I stopped going to PT last year because I could not afford the copays. I stopped taking my medications because I had to choose between heating my house and eating. I will remember the things you told me.?? Objective: Pt seen for evaluation today. Pain: Number Location At rest 02/01 LBP, into lateral hips, down posterolateral legs With activity 10 Same R>L foot neuropathic pain, especially to touch. Vital Signs: At Rest With Activity SpO2 (RA) 100% 99% BP (MAP) 158/86 mmHg pre gait 148/84 mmHg post gait HR 80s bpm 90s bpm Mental Status: alert, oriented to person, place, and time Vision: Glasses Skin: Dry skin. No ulcerations noted. Musculoskeletal: ROM: BUE wfls. Decreased AROM LLE, mostly at hip level, but can use UEs to assist LLE into figure four position to don/doff shoes. RLE AROM wfls, could figure four in sitting without UE support Strength: B shoulders at least 4-/5, good biceps and hand camp program director strength. B hip flex 4/5. B knee ext 4+/5. R ankle DF 4-/5 (painful handhold). R df 4+/5. Sensation: Severe neuropathy BLE with Neuropathic pain/hypersensitivity R > LLE. Bed Mobility: Supine to Sit: independent by report Sit to Supine: same Transfers: Sit to Stand: independent Stand to Sit: independent Gait: Distance: 150', to and from stairs. Device used: none Level of assist: cga Gait mechanics: Decreased stance on RLE, henny TINOCO Trialed FWW with pt and he was independent. Pt was up walking around room without a device, Henny TINOCO, when I walked in and no observed LOB. Stairs: Up and down 5 stairs with 2 railing support, cues and cga to go up with L foot first and down with R foot first, use step to pattern and not a reciprocal pattern. Pt tried a different pattern and realized above was much safer for him. Balance: Sitting Static: good Sitting Dynamic: good Standing Static: fair+ Standing Dynamic / Gait: Fair to fair- Rhomberg with EOB, increased trunk sway, ~8-10 seconds. Rhomberg with Eyes closed, falls posteriorlyneeding mod assist to prevent a fall. Standing in normal stance with eyes closed, pt falls backwards, without support. Pt could not stand on RLE unilaterally, ~ 3 sec stance on LLE. Education: patient has been educated on Assistive device/technique, Stairs, Positioning, Safety , Precautions/protocol, Gait , Role of therapy, Balance and Discharge planning and verbalizes understanding. Patient status, treatment, and mobility recommendations discussed with nursing. Pt was left sitting. Suggested the following for home: seat for tub; removeable shower head; proper step to sequence on stairs; No bare feet, ever; avoid darkness or extreme light so pt can use vision at all times effectively; sit on high stool for dishes, cooking, etc.. Assessment: Oleg Berry was seen today for physical therapy evaluation. Pt functionally limited and in need of skilled PT evaluation 2/2 to the following: chronic pain; weakness; acute on chronic medical conditions; severe neuropathy and sensory deficits; HTN; med noncompliance; social implic ations; repeat falls at home; mental health issues; lives alone and stairs; and impaired gait and balance. Despite above, pt demonstrated safe gait with use of the FWW. He uses a grocery cart in storesand did not want people looking at him with a FWW. He may use a rollator that girlfriend can get forhim as she works for [email or web address]. He has a plastic lawn chair he can place in the tub. Pt knows to sit and dress or dry self off from shower. He should never stand to shower given his reliance on his vision tomaintain his balance. Gave him other pointers as stated above. Pt did not want [facility] PT to perform a home safety evaluation or assist with above limitations. He will consider it and ask his PCP, if he sherman nges his mind. Much safer with use of the FWW, which he has at home. He said if he stops smoking he could likely pay for some needed equipment and medical copays. No further PT needed at this time. He can dc home with use of recommendations. general utility worker has already met with pt.. Pt has a high stool, FWW, cane, and crutches he can use at home. Discharge Recommendations: Based on the current findings, Anticipated Discharge Disposition: home(Pt denies need for ongoing PTat this time) when medically ready for hospital discharge. Consult Recommendations: No other consults recommended at this time. Equipment needs: none Goals for safe dc to home, met, following recommendations previously stated above. Plan: Therapy Frequency: evaluation only for therapy including balance training, bed mobility training, gait training, patient/family education and stair training. Patient/family understand and agree with plan as stated above. 2017 PT Evaluation Code Rationale: ?? Diagnosis & Pertinent Co-Morbidities, personal factors, and present illness affecting Plan ofCare: (see above); Additional personal factors or co- morbidities that impact plan: ?? Total # of Factors: 0 1-2 3+ x ?? Examination of body system impairments, functional limitations and behaviors, and/or participation restrictions. Addressing 1-2 elements Addressing 3 + elements Addressing 4 + elements x ?? Clinical presentation: See assessment above. Stable/Uncomplicated Evolving/Fluctuating Symptoms Unstable/Unpredictable x ?? Clinical decision making of moderate complexity based on pt's functional performance as outlined in this evaluation. Time IN / OUT: 0444-7597 Total Evaluation Minutes, Physical Therapy: 56(Mod EV and TEF) JIE DASILVA, PT Pager: [phone] Physical Therapy Inpatient Rehabilitation Department Plan of Care - Tammie Escobedo RN - 07/25/2019 4:44 AM EDT Problem: Patient Care Overview Goal: Plan of Care Review Outcome: Ongoing (Interventions Implemented as Appropriate) 07/24/192016 Coping/Psychosocial Plan Of Care Reviewed With patient OUTCOME EVALUATION NOTE: OUTCOME SUMMARY: Pt had a good night. NSR/SB on tele, denies CP and SOB. Pt ambulated in alonzo independently throughout entire shift and was asymptomatic. Chronic pain managed with scheduled tylenol and heating pad. Pt reports chronic inability to sleep and remains awake throughout entire shift. PLAN MOVING FORWARD: D/C planning, better management of lack of sleep? INDIVIDUALIZED FALL PREVENTION INTERVENTIONS: Patient-specific fall risk factors per assessment: [current deficits]: IV sites, tele Assistance [level of assistance required for transfers and ambulation]: Ind w/ FWW Supervision [direct monitoring required during toileting and ADLs]: Ind Surveillance [continuous indirect monitoring]: Call le within reach, purposeful rounding, room near unit station Patient-specific fall prevention interventions for sensory deficits provided, if applicable: CPG GOAL OUTCOME EVALUATION: Goal: Fall Prevention-Safe Patient Handling Outcome: Ongoing (Interventions Implemented as Appropriate) 07/24/19201607/24/19 2359 Oneal Fall Risk History of Falling 0 -- Secondary Diagnosis 15 -- Ambulatory Aids 0 -- Intravenous Therapy/Heparin/Saline Lock 20 -- Gait/Transferring 0 -- Mental Status 0 -- Score 35 -- OTHER Oneal Fall Risk Med -- Restraint Interventions Safety Promotion/Fall Prevention -- safety round/check completed Positioning Body Position -- independent Activity Activity Type activity adjusted per tolerance -- Activity Assistance Provided independent -- Assistive Device Utilized front-wheel walker -- Goal: Infection Control Outcome: Ongoing (Interventions Implemented as Appropriate) 07/24/192016 Safety Interventions Isolation Precautions standard precautions maintained Infection Prevention environmental surveillance performed;personal protective equipment utilized;equipment surfaces disinfected;rest/sleep promoted;single patient room provided Coping Strategies Supportive Measures active listening utilized;self-care encouraged;verbalization of feelings encouraged Consult Note - Anastacio Son RN - 07/24/2019 2:02 PM EDT TOBACCO DEPENDENCE TREATMENT NOTE 07/24/2019 Name: Oleg Berry Date of : 1960 Reason for visit: Oleg Berry is a current everyday smoker and was referred for smoking cessation counseling. The following information has been reviewed with the patient: Social History: Marital status: Single ETOH: 3 beers/week Drug use: Occ marijuana Caffeine: 2 cups coffee/day Pets: dog, Ce-Ce Smoking history: Type of tobacco used: ( ) Smokeless tobacco ( ) e-cigarette (X )Cigarettes Brand currently smoking: Jomar Current amount: 1 ppd Cost per pack: $8.00 Age initiated: 15 Years smoked: 43 Most smoked: 1.5 ppd Previous quit attempts and methods: NRT, Wellbutrin, Chantix Most recent quit attempt: June 2018. Remained tobacco free for about 3 months post discharge using nicotine patches & gum that were provided by [facility]. Are there other smokers in the home: No. Pt lives alone. Girlfriend, Madyson, smokes Are there children in the home: No What will be different this time: I'm one of the meli ones that gets to choose between taking medications or filling fuel tank. I haven't taken any medications for about 3 months. If I quit smoking, I would save about $250 a month and would be able to afford my medications. Reasons for quitting: Save money, improve health, prevent future heart attack Concerns about quitting: Trigger management. (I can't walk for long periods of time without my legs/feet hurting, I can't sleep at night because of the pain in my legs, I don't have transportation so I am dependent on others. I used to like doing puzzles, but when I can't sleep at night, my concentration isn't good. What else can I do? I smoke. Concerns about weight gain: No Triggers for smoking: Stress. Everything. Ready to set a quit date: 07/24/2019 Importance/Confidence Scale (How important is it for him to quit/How confident patient is that he can quit on scale of 0(Not at all important)-10(Highest importantance): 10/6 What would help increase confidence: I know I have to do it. NICOTINE DEPENDENCE 0 Points 1Points 2 Points 3 Points Score 1.How soon after you wake do you smoke your first cigarette? After 60 minutes 31-60 minutes minutes 6-30 minutes Within 5 minutes 3 2. Do you find it difficult to refrain from smoking in places where it is forbidden ex [facility] No Yes0 3. Which cigarette would you hate to give up ? All others The first one in the morning 1 4. How many cigarette do you smoke a day ? 10 or less 11-20 21-30 30 or more 1 Do you smoke more frequently during the first hour after waking than the rest of the day? No Yes 1 6. Do you smoke if you are so ill that you are in bed all day ? No Yes 1 Fagerstrom Score: 7 Classification: 0-2 Very low 3-4 Low 5 Moderate 6-7 High 8-10 Very high Stage of Change: Preparation Precontemplative: Contemplative: Preparation: Action: Maintenance: Assessment/Plan: I met with Oleg Berry this afternoon at the request of his case management assistant.He was initially seen one year ago for tobacco cessation. He has a Fagerstrom Score of 7, indicatinga high dependence on Nicotine. He has decided that he would like to continue NRT post-discharge and would like a referral be sent to the [place] quit line. He was provided one box of 21 mg nicotine patches and one box of 4 mg nicotine lozenges. Instructions for each will be included in AVS. We discussed numerous strategies he could use to help manage his triggers. He has tried accupuncture to help with his insomnia and felt it was not effective. We discussed performing deep breathing exercises, practicing mindfulness, meditation, yoga, being outside with dog, working on puzzles, or calling a friend as alternatives to smoking when cravings are strong. He was also provided the tobacco treatment pamphlet containing my contact information and the tobacco treatment clinic contact information. He was e ncouraged to contact either with any questions or concerns. LINDA Javed, RN-, [facility] Tobacco Collar Runner [facility] Pager #[phone] Initial Assessments - Madyson Che RN - 07/24/2019 10:11 AM EDT Office of Care Management Initial Assessment MADYSON CHE RN reviewed record and discussed patient with Care Team. Source of Information: patient interview Introduced self/reviewed role; services accepted. Reason for Hospitalization: STEMI No past medical history on file. Per discussion with patient, has diabetes, chronic pain and fall history Hospitalizations Within the Past 30 Days: none Anticipated Length Of Stay (If known): Projected length of stay for STEMI is 3-4 days Current Decision-Making Capacity: Patient is alert and oriented and able to make decisions. Advance Care Planning: Patient does not have advanced directives. Education provided and surrogacy reviewed. Accepted Advanced Planning Booklet and form and this was left with RN to bring in to room. If AD's have not been completed spouse would be surrogate decision maker per [place] decision making law. Any patient receiving [place] at [facility] must abide by [place] law. The hierarchy for surrogate decision making is: (a) Patient???s spouse, or civil union partner or common law spouse unless there is a divorce proceeding, separation agreement, or restraining order limiting that person???s relationship with the patient. (b) Any adult son or daughter of the patient. (c) Either parent of the patient. (d) Any adult brother or sister of the patient. (e) Any adult grandchild of the patient. (f) Any grandparent of the patient. (g) Any adult aunt, uncle, niece, or nephew of the patient. (h) A close friend of the patient. (i) The agent with financial power of tax associate attorney or a conservator appointed in accordance with RSA 464-A. (j) The guardian of the patient???s estate. Current Coping/Education/Information Needs: Coping well with hospital stay and feels updated on issues and plan. Current Functional Ability: at functional baseline Functional Status Prior to Admission: States he is independent with a cane. Does have frequent fallsrelated to neuropathy/pain in legs and says he gets shakey- states sometimes moves and Cannot feel his leg and falls. Last fall was last week in the shower. He has never had PT/OT for this. He drives, but currently does not have a car. Home Environment: Social & Family Supports/Community Resources: Lives alone. He has 2 sons-one lives close by and the other at a distance. Has a girlfriend who works in home care. Behavioral Health History: States he has depression and anxiety. Can be pretty bad at times (although currently saying he is doing pretty well). When bad, he has had suicidal thoughts and when asked about a plan Oh, yeah, lots of them (and repeats he is doing well now). He has not seen anyone outside of his PCP for this. When he struggles, he has a friend who he can talk to with good effect. He feels he is at odds now with his PCP. Patient attributes his depression to his pain and states his PCP feels the pain is caused by the depression-states he is on antidepressant (although has not taken meds since December due to cost). He feels the gabapentin is not sufficient to control pain and would like hydromorphone which PCP will not order. Substance Use/Abuse: Is a current pack a day smoker-states he quit last night. I have left the smoking cessation counselor a voice mail to see/speak with him if able. He has 2-3 alcohlic drinks per week. He smokes marijuana-states for pain rather than recreational, but does not have medical marijuana card. Does not use other non prescribed drugs. Other Pertinent/Service Specific Information: n/a Health/Prescription Coverage: Primary Insurance: MEDICARE Secondary Insurance: N/A Prescription Coverage: none-OPERATIONS EXECUTIVE following Preferred Pharmacy: Uses [facility], but states after discussion with OPERATIONS EXECUTIVE will start to get some drugs at [facility] due to cost difference Other: n/a Primary Care Provider: Joel Mccarthy MD [phone] Patient/Caregiver Goals of Treatment: home as soon as able Potential Needs for Transition of Care: Rehab/SNF: n/a Home Health: n/a DME: has a cane Dialysis: n/a Community Resources: n/a Transportation: Plans to see if his girlfriend can lend her car to his son so he can pick him up when medically ready Other: n/a Anticipated Barriers to Discharge/Special Considerations: no prescription coverage; potential ride issue if his plan does not work out (girlfriend may be working). Assessment: Independent gentleman with history of falls who is admitted with STEMI. Issues with depression that he reports are currently doing well. Is a smoker and motivated to quit. Has insurance through medicare with no secondary and no prescription coverage-had stopped taking medications in December to be able to afford his heat. Does not have advanced directives. Plan: ?? Notified smoking cessation counselor of need for services ?? Notified primary team of falls/PT order need ?? Will be available to assist with questions related to advanced directive form ?? Due to current public health concerns, I have verbally reviewed Medicare Discharge Rights with patient. Patient verbalizes understanding of right to appeal this discharge if feeling not medically ready. Offered a copy of this letter. A member of the Care Management team will continue to monitor progress, follow for continuity of care and assist with transition of care planning. MADYSON CHE RN Pager: [phone] documented in this encounter Plan of Treatment Scheduled Referrals Name Type Priority Associated Diagnoses Order S chedule Referral to [place] Outpatient Referral Routine Tobacco abuse Order ed: [facility]uitworks 07/25/2019 documented as of this encounter Procedures Procedure Name Priority Date/Time Associated Diagnosis Comme nts POCT GLUCOSE Routine 07/25/2019 7:44 Results for this AM EDT procedure are i n the results section. BMP W/FASTING GLUCOSE Routine 07/25/2019 5:07 Res ults for this AM EDT procedure are i n the results section. HEMOGRAM Routine 07/25/2019 5:07 Results for this AM EDT procedure are i n the results section. DIFFERENTIAL, Routine 07/25/2019 5:07 Results for this AUTOMATED AM EDT procedure are i n the results section. HC VENIPUNCTURE Routine 07/25/2019 5:07 AM EDT POCT GLUCOSE Routine 07/25/2019 4:04 Results for this AM EDT procedure are i n the results section. HC VENIPUNCTURE STAT 07/24/2019 11:47 Results for this PM EDT procedure are i n the results section. HC TROPONIN T STAT 07/24/2019 3:52 Results for this PM EDT procedure are i n the results section. ECHOCARDIOGRAM Routine 07/24/2019 10:00 Coronary artery Result s for this COMPLETE W CONTRAST AM EDT disease, angina proce dure are in presence the results unspecified, section. unspecified vessel or lesion type, unspecified whether ho-chunk or transplanted heart HC UNFRACTIONATED STAT 07/24/2019 9:48 Results for this HEPARIN (HEP UFH) AM EDT procedure are in the results section. HC TROPONIN T STAT 07/24/2019 9:48 Results for this AM EDT procedure are i n the results section. POCT GLUCOSE Routine 07/24/2019 7:51 Results for this AM EDT procedure are i n the results section. HC UNFRACTIONATED STAT 07/24/2019 3:46 Results for this HEPARIN (HEP UFH) AM EDT procedure are in the results section. BMP W/FASTING GLUCOSE Routine 07/24/2019 3:46 Res ults for this AM EDT procedure are i n the results section. HEMOGRAM Routine 07/24/2019 3:46 Results for this AM EDT procedure are i n the results section. DIFFERENTIAL, Routine 07/24/2019 3:46 Results for this AUTOMATED AM EDT procedure are i n the results section. HC CBC,PLT & AUTO DIFF Routine 07/24/2019 3:46 AM EDT TROPONIN Routine 07/24/2019 3:46 Results for this AM EDT procedure are i n the results section. HC THYROID STIMULATING Routine 07/24/2019 3:46 Re sults for this HORMONE, SERUM AM EDT procedure are in the results section. HC HEMOGLOBIN A1C Routine 07/24/2019 3:46 Results for this AM EDT procedure are i n the results section. LIPID PANEL (REFLEX Routine 07/24/2019 3:46 Resul ts for this DIRECT LDL) AM EDT procedure are i n the results section. POCT GLUCOSE Routine 07/24/2019 3:36 Results for this AM EDT procedure are i n the results section. documented in this encounter Results POCT Glucose (07/25/2019 7:44 AM EDT) P athologist Signature POC Glucose 197 65 - 199 [facility] mg/dL [facility] Comment: Supplemental ranges: <140 mg/dL before meals <180 mg/dL all other times of the day Specimen Anatomical Collection Method Collection Time Receive d Time (Source) Location / / Volume Laterality Blood specimen 07/25/2019 7:44 AM 020 7:44 (specimen) EDT AM EDT Kiet Almodovar MD POINT OF CARE TEST ORDERABLE S Performing Organization Address City/State/ZIP Code Phon [place] [facility] [place] [address] (ABNORMAL) Differential, Automated (07/25/2019 5:07 AM EDT) Patholo gist Method Time Signature Neutrophils % 50.4 % [facility] Neutr Abs (ANC) 4.77 1.70 - [facility] 6.[address] [facility] x10(3)/[facility] LABORATORY Lymphocytes % 39.3 % [facility] Lymphocytes Abs 3.7 (H) 0.9 - 3.2 [facility] x10(3)/[facility] LABORATORY Monocytes % 6.6 % [facility] Monocyte Abs 0.6 0.3 - 0.9 [facility] x10(3)/[facility] LABORATORY Eosinophils % 2.9 % [facility] Eosinophils Abs 0.3 0.0 - 0.4 [facility] x10(3)/[facility] LABORATORY Basophils % 0.5 % [facility] Basophils Abs 0.0 0.0 - 0.1 [facility] x10(3)/[facility] LABORATORY Immature Gran % 0.30 % [facility] Comment: Immature granulocytes(IG's)percentage an d absolute count will include metamyelocytes, myelocytes, and promyelo cytes. Blood smears from CBCs yielding IG's will be scanned manually for concor dance. If this scan disagrees with the automated IG or if promyelocytes are not ed, a manual differential will be performed. Madhuri Gran Abs 0.03 0.00 - 0.04 x10(3)/[facility] LABORATORY Specimen Anatomical Collection Method Collection Time Receive d Time (Source) Location / / Volume Laterality Blood specimen 07/25/2019 5:07 AM 020 5:12 (specimen) EDT AM EDT Resulting Agency Comment Spec In Lab Thang Gandara MD HEMATOLOGY ORDERABLES Performing Organization Address City/State/[place] [address] Hemogram (07/25/2019 5:07 AM EDT) P athologist Signature WBC 9.4 4.0 - 9.5 [facility] x10(3)/[facility] LABORATORY RBC 5.15 4.58 - [facility] 5.[address] [facility] x10(6)/[facility] LABORATORY Hemoglobin 15.0 13.7 - [facility] 16.5 gm/dL [facility] Hematocrit 45.1 40.5 - [facility] 48.5 % [facility] MCV 87.6 82.9 - [facility] [place] 93.1 [facility] LABORATORY MCH 29.1 27.5 - [facility] [place] 32.1 pg [facility] MCHC 33.3 32.0 - [facility] [place] 35.7 gm/dL [facility] Platelets 202 145 - 357 [facility] [place] x10(3)/[facility] LABORATORY RDWSD 41.1 36.0 - [place] [place] 45.0 [facility] LABORATORY RDWCV 12.7 11.4 - [facility] [place] 13.8 % [facility] MPV 11.0 7.6 - 12.9 [facility] LABORATORY nRBC % Auto 0.0 % [facility] nRBC Abs Auto 0.000 0.000 - ANA AFIA 0.[address] [facility] x10(3)/[facility] LABORATORY Specimen Anatomical Collection Method Collection Time Receive d Time (Source) Location / / Volume Laterality Blood specimen 07/25/2019 5:07 AM 020 5:12 (specimen) EDT AM EDT Resulting Agency Comment Spec In Lab Thang Gandara MD HEMATOLOGY ORDERABLES Performing Organization Address City/State/[place] [address] (ABNORMAL) BMP w/fasting Glucose (07/25/2019 5:07 AM EDT) P athologist Signature Glucose 186 (H) 65 - 99 [facility] Fasting mg/dL [facility] Comment: ?Fasting* Glucose Interpretive C riteria Normal ?65-99 mg/dL Impaired Fasting glucose ?100-125 mg/dL Consistent with Diabetes Mellitus ? >or= 126 mg/dL *Fasting is defined as no caloric intake for at least 8 hours In the absence of unequivocal hypergly cemia a plasma glucose value of >or= 126 mg/dL should be repeated on a subseq u day. Diagnosis and Classification of Diabetes Mellitus, Position Statement from the [place] [employer]. ??Diabete s Care, Volume 33, Supplement 1, Apr 2009 BUN 15 10 - 20 mg/dL [facility] Creatinine 0.69 (L) 0.80 - 1.50 mg/dL [facility] Sodium 137 135 - 145 mmol/L [facility] Potassium 3.9 3.5 - 5.0 mmol/L [facility] Comment: Please note: ??Patients with WBC >100,00 0 may have falsely elevated Potassium levels. ??For accurate Potassium quantif ication in these patients send serum separator tube (gold top) for subsequent determinations. ??Contact the Clinical Chemistry Laboratory if there are any qu estions. Chloride 101 98 - 107 mmol/L [facility] CO2 22 22 - 31 mmol/L [facility] Anion Gap 14 5 - 15 mmol/L [facility] Calcium 9.9 8.5 - 10.5 mg/dL [facility] Comment: result rechecked-slw Estimated GFR 105 >=60 mL/min/1.73 m?? [facility] Comment: The eGFR was calculated using the CKD-EP I equation. As with all creatinine based estimates of kidney function, eGFR values calculated with the CKD-EPI equation are not accurate in patients wi th acute kidney failure, extremes of body mass or the acutely ill. [email or web address] eGFR 121 >=60 mL/min/1.73 m?? [facility] Comment: The eGFR was calculated using the CKD-EP I equation. As with all creatinine based estimates of kidney function, eGFR values calculated with the CKD-EPI equation are not accurate in patients wi th acute kidney failure, extremes of body mass or the acutely ill. [email or web address] Specimen Anatomical Collection Method Collection Time Receive d Time (Source) Location / / Volume Laterality Blood specimen 07/25/2019 5:07 AM 020 5:12 (specimen) EDT AM EDT Resulting Agency Comment Spec In Lab Kiet Almodovar MD CHEMISTRY ORDERABLES Performing Organization Address City/State/Z[place] [address] [facility] [address] POCT Glucose (07/25/2019 4:04 AM EDT) athologist Signature POC Glucose 175 65 - 199 [facility] [place] mg/dL [facility] Comment: Supplemental ranges: <140 mg/dL before meals <180 mg/dL all other times of the day Specimen Anatomical Collection Method Collection Time Receive d Time (Source) Location / / Volume Laterality Blood specimen 07/25/2019 4:04 AM 020 4:04 (specimen) EDT AM EDT Kiet Almodovar MD POINT OF CARE TEST ORDERABLE S Performing Organization Address City/State/[place] [address] Troponin (07/24/2019 11:47 PM EDT) athologist Signature Troponin-T <0.01 0.00 - 0.00 [facility] ng[facility]mL [facility] Comment: The 99th percentile for Troponin T is le ss than 0.01 ng/mL, any detectable cTnT concentration using this assay should be considered elevated. According to the third universal definit ion of myocardial infarction the following criteria with a clinical prese ntation consistent with acute myocardial ischemia meets the diagnosis for a myocardial infarction (NE). Detection of a rise and/or fall of cTnT, with at least one value greater than the 99th percentile (> or = 0.01) and wi th at least one of the following ?? Symptoms of ischemia ?? New or presumed new significant ST-se gment-T wave (ST-T) changes or new left bundle branch block (LBBB) ?? Development of pathologic Q waves in the ECG ?? Imaging evidence of new loss of viabl e myocardium or new regional wall motion abnormality ?? Identification of an intracoronary th rombus by angiography or autopsy Samples for cTnT testing should be obtai dionisio serially upon first assessment and again 3 to 6 hours later. If the clinica l suspicion is high and previous samples have been negative an additional sample may be indicated. Reference: Third [place] Definition of Myocardial Infarction. Journal of the [place] [employer] 2012;60:1581-98 Specimen Anatomical Collection Method Collection Time Receive d Time (Source) Location / / Volume Laterality Blood specimen 07/24/2019 11:47 0 (specimen) PM EDT 11:52 PM EDT Resulting Agency Comment Spec In Lab Kiet Almodovar MD CHEMISTRY ORDERABLES Performing Organization Address City/State/[place] [address] Troponin (07/24/2019 3:52 PM EDT) P athologist Signature Troponin-T <0.01 0.00 - 0.00 [facility] ng/mL [facility] Comment: The 99th percentile for Troponin T is le ss than 0.01 ng/mL, any detectable cTnT concentration using this assay should be considered elevated. According to the third universal definit ion of myocardial infarction the following criteria with a clinical prese ntation consistent with acute myocardial ischemia meets the diagnosis for a myocardial infarction (NE). Detection of a rise and/or fall of cTnT, with at least one value greater than the 99th percentile (> or = 0.01) and wi th at least one of the following ?? Symptoms of ischemia ?? New or presumed new significant ST-se gment-T wave (ST-T) changes or new left bundle branch block (LBBB) ?? Development of pathologic Q waves in the ECG ?? Imaging evidence of new loss of viabl e myocardium or new regional wall motion abnormality ?? Identification of an intracoronary th rombus by angiography or autopsy Samples for cTnT testing should be obtai dionisio serially upon first assessment and again 3 to 6 hours later. If the clinica l suspicion is high and previous samples have been negative an additional sample may be indicated. Reference: Third [place] Definition of Myocardial Infarction. Journal of the [place] [employer] 2012;60:1581-98 Specimen Anatomical Collection Method Collection Time Receive d Time (Source) Location / / Volume Laterality Blood specimen 07/24/2019 3:52 PM 020 4:05 (specimen) EDT PM EDT Resulting Agency Comment Spec In Lab Kiet Almodovar MD CHEMISTRY ORDERABLES Performing Organization Address City/[facility]/[place] [address] ECHOCARDIOGRAM COMPLETE W CONTRAST (07/24/2019 10:00 AM EDT) P athologist Signature EF 52 [facility] Specimen (Source) Anatomical Location Collection Method / Collectio n Time Received Time / Laterality Volume 07/24/2019 Narrative [facility] - 07/24/2019 10:21 AM ED T Procedure: ?Transthoracic Echocardiogram Patient: ?MAURA DENTON ?? (Age): 1960(58y) Med Rec#: ? [id number] ?Sex: ?M ? [place] [facility] [place]Ht / Wt: ??167(cm)/91(kg) Pt. Loc: ?Adult Floor ? BSA: ?2 Study Date: ?? 07/24/2019 ?Pt. Type: Inpatient Tape: ? 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 151/83 SUMMARY: 1. The left ventricular chamber size is normal. There is low normal global left ventricular systolic functio n. ??The quantitative left ventricular ejection fraction by biplane Bruner's method is 52%. There are left ventricular segmental wall rosa on abnormalities present, as shown in the diagram below. 2. The right ventricle is normal in size . Right ventricular global systolic function is normal. Pulmonary a rtery hypertension could not be assessed due to inadequate tricuspid reg urgitation jet. 3. The atria are normal in size. 4. There is no hemodynamically significa nt valve disease. 5. In comparison to a prior study dated 07/09/06, the pattern of inferior and lateral segmental wall motion abonor malities appears similar. There are now septal wall motion abnormalities , but the patient is noted to be status post CABG in 2017. 6. See remainder of report for additiona l findings. Findings ? : Study Quality: ? Adequate Left Ventricle: ? The left ventricul ar chamber size is normal. ?Mild concentric left ventricular h ypertrophy is observed. ?Basal septal hypertrophy is observ ed.15 mm ?There is no evidence of LVOT obstr uction. ?No ventricular septal defect is vi sualized. ?There is normal global left ventri cular systolic function.low normal ?The quantitative left ventricular ejection fraction by biplane Bruner's method is 52%. ?The quantitative left ventricular ejection fraction by 3-D rendering is 49%.Avg GLS -13% (GE) ?There are left ventricular segment al wall motion abnormalities present, as shown in the diagram below. ?The left ventricular diastolic eric ling pattern is consistent with impaired LV relaxation. ?Doppler assessment is consistent w ith normal left sided filling pressure. ?The ??basal anteroseptal, basal an terolateral, basal inferolateral, basal inferior, mid anteroseptal, mid an terolateral, and ??mid inferior wall segments are hypokinetic (score 2). ?The ??mid inferolateral wall segme nt is akinetic (score 3). ?Overall wallmotion score index is ??1.56 Left Atrium: ? The left atrium is no rmal in size. ?There is no evidence of a patent f oramen ovale by color Doppler. Right Ventricle: ? The right ventric le is normal in size. ?Right ventricular global systolic function is normal. ?Pulmonary artery hypertension coul d not be assessed due to inadequate tricuspid regurgitation jet. Right Atrium: ? The right atrium is normal in size. Aortic Valve: ? The aortic valve is tricuspid. ?Systolic excursion of the aortic v alve is normal. ?There is no evidence of aortic osman ve stenosis. ?There is no evidence of aortic reg urgitation. Mitral Valve: ? The mitral valve gretel flets appear normal. ?There is trace mitral regurgitatio n present. Tricuspid Valve: ? The tricuspid osman ve leaflets are morphologically normal. ?There is trace tricuspid regurgita tion present. Pulmonic Valve: ? The pulmonic valve appears normal. Pericardium: ? The pericardium appea rs normal and there is no evidence of a pericardial effusion. ?A pericardial fat pad is visualize d. Aorta: ? There is mild dilatation of the aortic root.3.9 cm ?The ascending aorta is normal in s ize. Pulmonary Artery: ? The main pulmona ry artery appears normal. Venous: ? The inferior vena cava coty ears normal in size. ?There is a greater than 50% respir atory change in the inferior vena cava dimension. Misc: ? There is no hemodynamically significant valve disease. ?See remainder of report for additi onal findings. ?Two-dimensional echo, spectral Dop pler and color Doppler performed. ?Optison contrast (one 3 ml vial) w as used to enhance endocardial definition. Excess contrast was discarde d. Chambers 2D ?Value ?Units (Range) ? IVSd (2D) ? 1.46 ? cm ? LVPWd (2D) ?1.16 ? cm ? IVS:LVPW ratio (2D) 1.26 ? ratio ? RWT (2D) ?0.54 ? ratio ? RWT PW (2D) ? 0.48 ? ratio ? LVIDd (2D) ?4.88 ? cm ? LVIDs (2D) ?3.73 ? cm ? LVIDd (2D) index ?2.44 ? cm/m2 ? LVIDs (2D) index ?1.87 ? cm/m2 ? LV FS (2D) ?23.54 ?% ? EF Teichholz (2D) ?? 46.93 ?% ? Ao root diameter (2D3.9 ?cm (2.1 - 3.6) ? Ascending Ao ?3.5 ?cm (2 - 3.5) ? Volumes/Mass ?Value ?Units (Range) ? LA Area 4 CH ?18 ? cm2 (<21) ? LA ESV BP (A/L) inde29.37 ? ml/m2 ? RA AREA 4CH ? 15 ? cm2 ? LV ESV SP 4CH (MOD) 47.63 ? ml ? LV ESV SP 2CH (MOD) 49.09 ? ml ? LV EDV BP ? 106.86 ? ml ? LV ESV BP ? 51.35 ?ml ? LV EDV BP index ? 53.5 ? ml/m2 ? LV ESV BP index ? 25.71 ?ml/m2 ? BP EF (MOD) ? 51.94 ?% ? LV mass (2D) ?255.93 ? g ? LV mass (2D) index ??128.14 ? g/m2 ? Diastolic/Systolic Function ?Value ?Units (Range) ? MV E-wave Vmax ?0.66 ? m/sec ? MV deceleration ivmx265.75 ? m sec ? MV A-wave Vmax ?0.99 ? m/sec ? MV E:A ratio ?0.67 ? ratio ? LV septal e' Vmax ?? 0.07 ? m/sec ? LV lateral e' Vmax ??0.11 ? m/sec ? LV average e' Vmax ??0.09 ? m/sec ? LV E:e' septal ratio9.4 ?ratio ? LV E:e' lateral rati5.98 ? ratio ? LV average E:e' rati7.31 ? ratio ? Wall Motion: Segment Name ?Rest ? Base-Anteroseptal ?? Hypokinetic ? Base-Anterior ? Normal ? Base-Anterolateral ??Hypokinetic ? Base-Posterolateral Hypokinetic ? Base-Inferior ? Hypokinetic ? Base-Inferoseptal ?? Normal ? Mid-Anteroseptal ?Hypokinetic ? Mid-Anterior ?Normal ? Mid-Anterolateral ?? Hypokinetic ? Mid-Posterolateral ??Akinetic ? Mid-Inferior ?Hypokinetic ? Mid-Inferoseptal ?Normal ? [place]-Septal ? Normal ? [place]-Anterior ? Normal ? [place]-Lateral ?Normal ? [place]-Inferior ? Normal ? [place]-Tip ?Normal ? This report has been electronically sign ed by: _ Bob Solis MD ? 07/24/2019 10:21 :06 Images reviewed and interpretation bharath [facility] Cardiac Ultrasound Laboratory Procedure Note Bob Solis MD - 07/24/2019Formattin g of this note might be different from the original. Procedure: Transthoracic Echocardiogram Patient: MAURA DENTON (Age): 0 1960(58y) Med Rec#: [id number] Sex: M [place] [facility] [place]t / Wt: 167(cm)/91(kg) Pt. Loc: Adult Floor BSA: 2 Study Date: 07/24/2019 Pt. 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 The left ventricular chamber size is normal. There is low normal global left ventricular systolic functio n. The quantitative left ventricular ejection fraction by biplane Bruner's method is 52%. There are left ventricular segmental wall rosa on abnormalities present, as shown in the diagram below. 2. The right ventricle is normal in size . Right ventricular global systolic function is normal. Pulmonary a rtery hypertension could not be assessed due to inadequate tricuspid reg urgitation jet. 3. The atria are normal in size. 4. There is no hemodynamically significa nt valve disease. 5. In comparison to a prior study dated 07/09/06, the pattern of inferior and lateral segmental wall motion abonor malities appears similar. There are now septal wall motion abnormalities , but the patient is noted to be status post CABG in 2017. 6. See remainder of report for additiona l findings. Findings : Study Quality: Adequate Left Ventricle: The left ventricular sherman mber size is normal. Mild concentric left ventricular hypert rophy is observed. Basal septal hypertrophy is observed.15 mm There is no evidence of LVOT obstructio n. No ventricular septal defect is visuali zed. There is normal global left ventricular systolic function.low normal The quantitative left ventricular eject ion fraction by biplane Bruner's method is 52%. The quantitative left ventricular eject ion fraction by 3-D rendering is 49%.Avg GLS -13% (GE) There are left ventricular segmental wa ll motion abnormalities present, as shown in the diagram below. The left ventricular diastolic filling pattern is consistent with impaired LV relaxation. Doppler assessment is consistent with n ormal left sided filling pressure. The basal anteroseptal, basal anterolat eral, basal inferolateral, basal inferior, mid anteroseptal, mid an terolateral, and mid inferior wall segments are hypokinetic (score 2). The mid inferolateral wall segment is a kinetic (score 3). Overall wallmotion score index is 1.56 Left Atrium: The left atrium is normal i n size. There is no evidence of a patent forame n ovale by color Doppler. Right Ventricle: The right ventricle is normal in size. Right ventricular global systolic funct ion is normal. Pulmonary artery hypertension could not be assessed due to inadequate tricuspid regurgitation jet. Right Atrium: The right atrium is normal in size. Aortic Valve: The aortic valve is tricus pid. Systolic excursion of the aortic valve is normal. There is no evidence of aortic valve st enosis. There is no evidence of aortic regurgit ation. Mitral Valve: The mitral valve leaflets appear normal. There is trace mitral regurgitation pre sent. Tricuspid Valve: The tricuspid valve gretel flets are morphologically normal. There is trace tricuspid regurgitation present. Pulmonic Valve: The pulmonic valve appea rs normal. Pericardium: The pericardium appears nor mal and there is no evidence of a pericardial effusion. A pericardial fat pad is visualized. Aorta: There is mild dilatation of the a ortic root.3.9 cm The ascending aorta is normal in size. Pulmonary Artery: The main pulmonary art rose appears normal. Venous: The inferior vena cava appears n ormal in size. There is a greater than 50% respiratory change in the inferior vena cava dimension. Misc: There is no hemodynamically signif icant valve disease. See remainder of report for additional findings. Two-dimensional echo, spectral Doppler and color Doppler performed. Optison contrast (one 3 ml vial) was us ed to enhance endocardial definition. Excess contrast was discarde d. Chambers 2D Value Units (Range) IVSd (2D) 1.46 cm LVPWd (2D) 1.16 cm IVS:LVPW ratio (2D) 1.26 ratio RWT (2D) 0.54 ratio RWT PW (2D) 0.48 ratio LVIDd (2D) 4.88 cm LVIDs (2D) 3.73 cm LVIDd (2D) index 2.44 cm/m2 LVIDs (2D) index 1.87 cm/m2 LV FS (2D) 23.54 % EF Teichholz (2D) 46.93 % Ao root diameter (2D3.9 cm (2.1 - 3.6) Ascending Ao 3.5 cm (2 - 3.5) Volumes/Mass Value Units (Range) LA Area 4 CH 18 cm2 (<21) LA ESV BP (A/L) inde29.37 ml/m2 RA AREA 4CH 15 cm2 LV ESV SP 4CH (MOD) 47.63 ml LV ESV SP 2CH (MOD) 49.09 ml LV EDV BP 106.86 ml LV ESV BP 51.35 ml LV EDV BP index 53.5 ml/m2 LV ESV BP index 25.71 ml/m2 BP EF (MOD) 51.94 % LV mass (2D) 255.93 g LV mass (2D) index 128.14 g/m2 Diastolic/Systolic Function Value Units (Range) MV E-wave Vmax 0.66 m/sec MV deceleration cqfs417.75 msec MV A-wave Vmax 0.99 m/sec MV E:A ratio 0.67 ratio LV septal e' Vmax 0.07 m/sec LV lateral e' Vmax 0.11 m/sec LV average e' Vmax 0.09 m/sec LV E:e' septal ratio9.4 ratio LV E:e' lateral rati5.98 ratio LV average E:e' rati7.31 ratio Wall Motion: Segment Name Rest Base-Anteroseptal Hypokinetic Base-Anterior Normal Base-Anterolateral Hypokinetic Base-Posterolateral Hypokinetic Base-Inferior Hypokinetic Base-Inferoseptal Normal Mid-Anteroseptal Hypokinetic Mid-Anterior Normal Mid-Anterolateral Hypokinetic Mid-Posterolateral Akinetic Mid-Inferior Hypokinetic Mid-Inferoseptal Normal [place]-Septal Normal [place]-Anterior Normal [place]-Lateral Normal [place]-Inferior Normal [place]-Tip Normal This report has been electronically sign ed by: _ Bob Solis MD 07/24/2019 10:21:06 Images reviewed and interpretation vertracie sam [facility] Cardiac Ultrasound Laboratory Kiet Almodovar MD ECHO ORDERABLES Performing Organization Address City/State/ZIP Code Phon e Number [facility] Heparin (unfractionated) Level (07/24/2019 9:48 AM EDT) P athologist Signature Heparin UFH 0.34 IU/mL [facility] LABORATORY Comment: Guidelines for therapeutic unfractionate d heparin levels are summarized below. Heparin (Anti-Xa) levels should be deter mined in a plasma sample that has been drawn 6 hours after a dose change i.e., steady-state has been reached. DRUG ?Dos ing Schedule ? Target Peak Steady-State ?Heparin (Anti-Xa) Levels (Units/mL) Unfractionated ?Continuous inf usion ?0.3-0.7 Heparin ?0.3-0.6 fo r some neurology indications Specimen Anatomical Collection Method Collection Time Receive d Time (Source) Location / / Volume Laterality Blood specimen 07/24/2019 9:48 AM 020 9:51 (specimen) EDT AM EDT Resulting Agency Comment Spec In Lab Kiet Almodovar MD HEMATOLOGY ORDERABLES Performing Organization Address City/State/[place] [address] Troponin (07/24/2019 9:48 AM EDT) P athologist Signature Troponin-T <0.01 0.00 - 0.00 [facility] ng/mL [facility] LABORATORY Comment: The 99th percentile for Troponin T is le ss than 0.01 ng/mL, any detectable cTnT concentration using this assay should be considered elevated. According to the third universal definit ion of myocardial infarction the following criteria with a clinical prese ntation consistent with acute myocardial ischemia meets the diagnosis for a myocardial infarction (NE). Detection of a rise and/or fall of cTnT, with at least one value greater than the 99th percentile (> or = 0.01) and wi th at least one of the following ?? Symptoms of ischemia ?? New or presumed new significant ST-se gment-T wave (ST-T) changes or new left bundle branch block (LBBB) ?? Development of pathologic Q waves in the ECG ?? Imaging evidence of new loss of viabl e myocardium or new regional wall motion abnormality ?? Identification of an intracoronary th rombus by angiography or autopsy Samples for cTnT testing should be obtai dionisio serially upon first assessment and again 3 to 6 hours later. If the clinica l suspicion is high and previous samples have been negative an additional sample may be indicated. Reference: Third [place]lock Definition of Myocardial Infarction. Journal of the [place] [employer] 2012;60:1581-98 Specimen Anatomical Collection Method Collection Time Receive d Time (Source) Location / / Volume Laterality Blood specimen 07/24/2019 9:48 AM 020 9:51 (specimen) EDT AM EDT Resulting Agency Comment Spec In Lab Kiet Almodovar MD CHEMISTRY ORDERABLES Performing Organization Address City/[facility]/ZIP [facility] Phon e Number [address] POCT Glucose (07/24/2019 7:51 AM EDT) athologist Signature POC Glucose 134 65 - 199 [facility] AFIA mg/dL [facility] Comment: Supplemental ranges: <140 mg/dL before meals <180 mg/dL all other times of the day Specimen Anatomical Collection Method Collection Time Receive d Time (Source) Location / / Volume Laterality Blood specimen 07/24/2019 7:51 AM 020 7:51 (specimen) EDT AM EDT Kiet Almodovar MD POINT OF CARE TEST ORDERABLE S Performing Organization Address City/[facility] [place] [address] Troponin (07/24/2019 3:46 AM EDT) athologist Signature Troponin-T <0.01 0.00 - 0.00 [facility] AFIA ng/mL [facility] Comment: The 99th percentile for Troponin T is le ss than 0.01 ng/mL, any detectable cTnT concentration using this assay should be considered elevated. According to the third universal definit ion of myocardial infarction the following criteria with a clinical prese ntation consistent with acute myocardial ischemia meets the diagnosis for a myocardial infarction (NE). Detection of a rise and/or fall of cTnT, with at least one value greater than the 99th percentile (> or = 0.01) and wi th at least one of the following ?? Symptoms of ischemia ?? New or presumed new significant ST-se gment-T wave (ST-T) changes or new left bundle branch block (LBBB) ?? Development of pathologic Q waves in the ECG ?? Imaging evidence of new loss of viabl e myocardium or new regional wall motion abnormality ?? Identification of an intracoronary th rombus by angiography or autopsy Samples for cTnT testing should be obtai dionisio serially upon first assessment and again 3 to 6 hours later. If the clinica l suspicion is high and previous samples have been negative an additional sample may be indicated. Reference: Third Hemlock Definition of Myocardial Infarction. Journal of the [place] [employer] 2012;60:1581-98 Specimen Anatomical Collection Method Collection Time Receive d Time (Source) Location / / Volume Laterality Blood specimen Venous Draw / 07/24/2019 3:46 AM 2019 3:57 (specimen) Unknown EDT AM EDT Resulting Agency Comment Spec In Lab Thang Gandara MD CHEMISTRY ORDERABLES Performing Organization Address City/State/[place] [address] (ABNORMAL) Differential, Automated (07/24/2019 3:46 AM EDT) [facility] Method Time Signature Neutrophils % 38.8 % [facility] LABORATORY Neutr Abs (ANC) 3.27 1.70 - [facility] 6.[address] [facility] x10(3)/[facility] LABORATORY Lymphocytes % 52.0 % [facility] LABORATORY Lymphocytes Abs 4.4 (H) 0.9 - 3.2 [facility] x10(3)/[facility] LABORATORY Monocytes % 6.4 % [facility] LABOR[facility]ORY Monocyte Abs 0.5 0.3 - 0.9 [facility] x10(3)/[facility] LABORATORY Eosinophils % 1.7 % [facility] Eosinophils Abs 0.1 0.0 - 0.4 [facility] x10(3)/[facility] LABORATORY Basophils % 0.7 % [facility] LAB[facility] Basophils Abs 0.1 0.0 - 0.1 [facility] x10(3)/[facility] LABORATORY Immature Gran % 0.40 % [facility] LAB[facility]ATORY Comment: Immature granulocytes(IG's)percentage an d absolute count will include metamyelocytes, myelocytes, and promyelo cytes. Blood smears from CBCs yielding IG's will be scanned manually for concor dance. If this scan disagrees with the automated IG or if promyelocytes are not ed, a manual differential will be performed. Madhuri Gran Abs 0.03 0.00 - 0.04 x10(3)/[facility] LABORATORY Specimen Anatomical Collection Method Collection Time Receive d Time (Source) Location / / Volume Laterality Blood specimen 07/24/2019 3:46 AM 020 3:53 (specimen) EDT AM EDT Resulting Agency Comment Spec In Lab Thang Gandara MD HEMATOLOGY ORDERABLES Performing Organization Address City/State/[place] [address] Hemogram (07/24/2019 3:46 AM EDT) P athologist Signature WBC 8.4 4.0 - 9.5 [facility] x[facility](3[facility] LABORATORY RBC 4.82 4.58 - joizCOCK 5.[address] [facility] x10(6)/[facility] LABORATORY Hemoglobin 13.9 13.7 - [facility] AFIA 16.5 gm/dL [facility] LABORATORY Hematocrit 42.7 40.5 - [facility] AFIA 48.5 % [facility] LABORATORY MCV 88.6 82.9 - [facility] AFIA 93.1 [facility] LABORATORY MCH 28.8 27.5 - [employer] 32.1 pg [facility] LABORATORY MCHC 32.6 32.0 - [facility] AFIA 35.7 gm/dL [facility] LABORATORY Platelets 205 145 - 357 [facility] LABORATORY RDWSD 41.1 36.0 - [facility] AFIA 45.0 [facility] RDWCV 12.6 11.4 - [facility] AFIA 13.8 % [facility] LABORATORY MPV 11.1 7.6 - 12.9 [facility] naaya [facility] LABORATORY nRBC % Auto 0.0 % [facility] LABORATORY nRBC Abs Auto 0.000 0.000 - [facility] 0.[address] [facility] x10(3)/[facility] LABORATORY Specimen Anatomical Collection Method Collection Time Receive d Time (Source) Location / / Volume Laterality Blood specimen 07/24/2019 3:46 AM 020 3:53 (specimen) EDT AM EDT Resulting Agency Comment Spec In Lab Thang Gandara MD HEMATOLOGY ORDERABLES Performing Organization Address City/[facility] [place] [address] Heparin (unfractionated) Level (07/24/2019 3:46 AM EDT) athologist Signature Heparin UFH 0.41 IU/mL [facility] LABORATORY Comment: Guidelines for therapeutic unfractionate d heparin levels are summarized below. Heparin (Anti-Xa) levels should be deter mined in a plasma sample that has been drawn 6 hours after a dose change i.e., steady-state has been reached. DRUG ?Dos ing Schedule ? Target Peak Steady-State ?Heparin (Anti-Xa) Levels (Units/mL) Unfractionated ?Continuous inf usion ?0.3-0.7 Heparin ?0.3-0.6 fo r some neurology indications Specimen Anatomical Collection Method Collection Time Receive d Time (Source) Location / / Volume Laterality Blood specimen 07/24/2019 3:46 AM 020 3:53 (specimen) EDT AM EDT Resulting Agency Comment Spec In Lab Kiet Almodovar MD HEMATOLOGY ORDERABLES Performing Organization Address City/[facility]/[place] [address] (ABNORMAL) BMP w/fasting Glucose (07/24/2019 3:46 AM EDT) athologist Signature Glucose 230 (H) 65 - 99 [facility] Fasting mg/dL [facility] LABORATORY Comment: ?Fasting* Glucose Interpretive C riteria Normal ?65-99 mg/dL Impaired Fasting glucose ?100-125 mg/dL Consistent with Diabetes Mellitus ? >or= 126 mg/dL *Fasting is defined as no caloric intake for at least 8 hours In the absence of unequivocal hypergly cemia a plasma glucose value of >or= 126 mg/dL should be repeated on a subseq uent day. Diagnosis and Classification of Diabetes Mellitus, Position Statement from the [place] [employer]. ??Diabete s Care, Volume 33, Supplement 1, Apr 2009 BUN 11 10 - 20 mg/dL [facility] LABORATORY Creatinine 0.69 (L) 0.80 - 1.50 mg/dL [facility] LABORATORY Sodium 142 135 - 145 mmol/L [facility] LABORATORY Potassium 3.8 3.5 - 5.0 mmol/L [facility] LABORATORY Comment: Please note: ??Patients with WBC >100,00 0 may have falsely elevated Potassium levels. ??For accurate Potassium quantif ication in these patients send serum separator tube (gold top) for subsequent determinations. ??Contact the Clinical Chemistry Laboratory if there are any qu estions. Chloride 104 98 - 107 mmol/L [facility] LAB[facility] CO2 22 22 - 31 mmol/L [facility] Anion Gap 16 (H) 5 - 15 mmol/L [facility] Calcium 8.6 8.5 - 10.5 mg/dL [facility] LABORATORY Estimated GFR 105 >=60 mL/min/1.73 m?? [facility] Comment: The eGFR was calculated using the CKD-EP I equation. As with all creatinine based estimates of kidney function, eGFR values calculated with the CKD-EPI equation are not accurate in patients wi th acute kidney failure, extremes of body mass or the acutely ill. [email or web address] eGFR 121 >=60 mL/min/1.73 m?? [facility] Comment: The eGFR was calculated using the CKD-EP I equation. As with all creatinine based estimates of kidney function, eGFR values calculated with the CKD-EPI equation are not accurate in patients wi th acute kidney failure, extremes of body mass or the acutely ill. [email or web address] Specimen Anatomical Collection Method Collection Time Receive d Time (Source) Location / / Volume Laterality Blood specimen 07/24/2019 3:46 AM 020 3:53 (specimen) EDT AM EDT Resulting Agency Comment Spec In Lab Kiet Almodovar MD CHEMISTRY ORDERABLES Performing Organization Address City/State/[place] [address] (ABNORMAL) Hemoglobin A1c (07/24/2019 3:46 AM EDT) [facility] gist Method Time Signature Hemoglobin A1C 11.6 (H) 4.3 - 5.6 [facility] LAB[facility] Comment: Reference Range: 4.3 - 5.6% 5.7 - 6.4% - Increased Risk of Developin g Diabetes Mellitus >= 6.5% - Consistent with diagnosis of D iabetes Mellitus In the absence of hyperglycemia (i.e. pl asma glucose > 200 mg/dL) or classic symptoms of hyperglycemia a repeat measu rement of HbA1c should be performed on a separate sample to confirm the diagnos is. Diagnosis and Classification of Diabetes Mellitus, Diabetes Care 2013; 36: Suppl. 1, S67-57 Est Avg Gluc 286 mg/dL [facility] LABORATORY Comment: eAG equivalents for HbA1c percentages: HbA1c(%) ?eAG(mg/dL) 6.0 ?126 6.5 ?140 7.0 ?154 7.5 ?169 8.0 ?183 8.5 ?197 9.0 ?212 9.5 ?226 10.0 ? 240 Limitations: The eAG calculation has not been validated on women, individuals below 18 years old and above 70 years old, and individuals with hemoglobinopathies. Additional resources are available on [facility] ADA website. Sal BHARDWAJ, Mariposa J, Vito R, et al. ??Tr anslating the A1C assay into estimated average glucose values. ??Diabetes Care 2008:31(8):4901-2504. Specimen Anatomical Collection Method Collection Time Receive d Time (Source) Location / / Volume Laterality Blood specimen 07/24/2019 3:46 AM 020 3:53 (specimen) EDT AM EDT Resulting Agency Comment Spec In Lab Kiet Almodovar MD CHEMISTRY ORDERABLES Performing Organization Address City/State/[place] [address] Lipid Panel (Reflex Direct LDL) (07/24/2019 3:46 AM EDT) P athologist Signature Chol, Total 228 mg/dL [facility] Comment: Lower Risk: <200 mg/dL Average Risk: 200-239 mg/dL Higher Risk: >xh=645 mg/dL Triglycerides 240 mg/dL [facility] Comment: Average Risk/Lower Risk: <150 mg/dL Borderline High Risk: 150-199 mg/dL High Risk: 200-499 mg/dL Very High Risk: >mn=155 mg/dL HDL 31 mg/dL [facility] LAB[facility] Comment: Males: ?? Higher Risk: <40 mg/dL Females: ?? HIgher Risk: <50 mg/dL LDL Cholesterol 149 mg/dL [facility] Comment: Lowest Risk: <100 mg/dL Lower Risk: 100-129 mg/dL Borderline High Risk: 130-159 mg/dL High Risk: 160-189 mg/dL Very High Risk: >oc=633 mg/dL Chol/HDL Ratio 7.4 ratio [facility] Lipid Interpretation See Note [facility] Comment: Lipid management should be guided by a p atient? s ASCVD risk, goals and preferences. ACC/AHA Guidelines recommend high intens ity statin if clinical ASCVD or LDL greater than or equal to 190 mg/dL. [email or web address]/ETL-RQP-Ispbohxvt Adults aged 40-75 with LDL 70-189 mg/dL should have their 10 year ASCVD risk estimated with the ACC/AHA ASCVD risk es timator http://tools.acc.org/KXTUO-Vqhi-Foyiihzz r/ Statin should be discussed if risk great er than or equal to 7.5% in non-diabetics. With diabetes, moderate i ntensity statin is recommended if risk less than 7.5%, high intensity if risk g reater than or equal to 7.5%. Annual lipid monitoring on statins is no t necessary. Evaluate secondary causes of Triglycerid es greater than 500 mg/dL or LDL greater than 190 mg/dL: See table 6 of A CC/AHA Guideline. Lifestyle modification is a critical com ponent of ASCVD risk reduction. Specimen Anatomical Collection Method Collection Time Receive d Time (Source) Location / / Volume Laterality Blood specimen 07/24/2019 3:46 AM 020 3:53 (specimen) EDT AM EDT Resulting Agency Comment Spec In Lab Kiet Almodovar MD CHEMISTRY ORDERABLES Performing Organization Address City/State/[place] [address] TSH (07/24/2019 3:46 AM EDT) athologist Signature TSH 3.94 0.27 - 4.20 [facility] m[facility]mL [facility] Specimen Anatomical Collection Method Collection Time Receive d Time (Source) Location / / Volume Laterality Blood specimen 07/24/2019 3:46 AM 020 3:53 (specimen) EDT AM EDT Resulting Agency Comment Spec In Lab Kiet Almodovar MD CHEMISTRY ORDERABLES Performing Organization Address City/State/[place] [address] POCT Glucose (07/24/2019 3:36 AM EDT) P athologist Signature POC Glucose 182 65 - 199 [facility] mg[facility]dL [facility] Comment: Supplemental ranges: <140 mg/dL before meals <180 mg/dL all other times of the day Specimen Anatomical Collection Method Collection Time Receive d Time (Source) Location / / Volume Laterality Blood specimen 07/24/2019 3:36 AM 020 3:36 (specimen) EDT AM EDT Kiet Almodovar MD POINT OF CARE TEST ORDERABLE S Performing Organization Address City/[facility]/[place] [address] documented in this encounter Visit Diagnoses Diagnosis Coronary artery disease, angina presence unspecified, unspecified vessel or lesion type, unspecified whether ho-chunk or crowder splanted heart Tobacco abuse Tobacco use disorder Essential hypertension Unspecified essential hypertension Myocardial infarction Acute myocardial infarction, unspecified site, episode of care unspecified Hypertensive urgency Unspecified essential hypertension documented in this encounter Admitting Diagnoses Diagnosis Myocardial infarction Acute myocardial infarction, unspecified site, episode of care unspecified documented in this encounter Administered Medications Inactive Administered Medications - up to 3 most recent administrations Medication Order MAR Action Action Date Dose Rate Site acetaminophen (Tylenol) tablet Given 07/25/2019 5:19 AM EDT 1,00 0 mg 1,000 mg 1,000 mg, Oral, EVERY 8 HOURS SCHEDULED, First dose (after last modification) on Tue07/24/19 at 0500, Until Discontinued, Maximum dose of acetaminophen is 4000 mg from all sources in 24 hours., Routine Given 07/24/2019 10:08 PM EDT 1,000 mg Given 07/24/2019 2:46 PM EDT 1,000 mg aspirin chewable tablet 81 mg Given 07/25/2019 8:18 AM EDT 81 mg 81 mg, Oral, DAILY, First dose on Tue07/24/19 at 0900, Until Discontinued, Routine Given 07/24/2019 8:51 AM EDT 81 mg atorvastatin (Lipitor) tablet 80 mg Given 07/24/2019 5:14 PM EDT 80 mg 80 mg, Oral, EVERY EVENING, First dose on Tue07/24/19 at 1700, Until Discontinued, Routine carvediloL (Coreg) tablet 6.25 mg Given 07/25/2019 8:18 AM EDT 6.25 mg 6.25 mg, Oral, 2 TIMES DAILY WITH MEALS, First dose on Tue07/24/19 at 1700, Until Discontinued, Routine Given 07/24/2019 5:14 PM EDT 6.25 mg clopidogreL (Plavix) tablet 75 mg Given 07/24/2019 8:51 AM EDT 75 mg 75 mg, Oral, DAILY, First dose on Tue07/24/19 at 0900, Until Discontinued, Routine dextrose 10% infusion 250 mL, at 1,000 mL/hr, Intravenous, CARLITOS RY 30 MIN PRN, Starting on Tue07/24/19 at 0345, Until Tue07/25/19 at 1310, For B G 50-70 mg/dL: Oral treatment preferred:?? If able to drink, give 120 mL Juice or R egular (not diet) soda OR If NPO, give 15 gram glucose 40% oral gel massaged into buccal mucosa OR if unconscious or uncooperative, give 25 gram (250 mL) Dex trose 10% IV over 15 minutes per protocol OR, if no IV access, 1 mg Glucagon IM. * * For BG less than 50 mg/dL: Oral treatment preferred:?? If able to drink, give 240 mL Juice or Regular (not diet) soda OR If NPO, give 30 gram glucose 40% oral gel m assaged in buccal mucosa OR if unconscious or uncooperative, give 25 gram (250 mL) Dextrose 10% I V over 15 minutes per protocol OR, if no IV access, 1 mg Glucagon IM. Rech alex BG in 30 minutes. May repeat juice/soda, gel, dextrose or gluc agon once per episode. For persistent hypoglycemia, consider longer-acting treatment for the duration of the active insulin. glucagon (human recombinant) injection S olR 1 mg 1 mg, Intramuscular, EVERY 30 MIN PRN, S tarting on Tue07/24/19 at 0345, Until Tue07/25/19 at 1310, Low blood sugar, For BG 50-70 mg/dL: Oral treatment preferred:?? If able to drink, give 120 mL Juice or R egular (not diet) soda OR If NPO, give 15 gram glucose 40% oral gel massaged into buccal mucosa OR if unconscious or uncooperative, give 25 gram (250 mL) Dex trose 10% IV over 15 minutes per protocol OR, if no IV access, 1 mg Glucagon IM. * * For BG less than 50 mg/dL: Oral treatment preferred:?? If able to drink, give 240 mL Juice or Regular (not diet) soda OR If NPO, give 30 gram glucose 40% oral gel m assaged in buccal mucosa OR if unconscious or uncooperative, give 25 gram (250 mL) Dextrose 10% I V over 15 minutes per protocol OR, if no IV access, 1 mg Glucagon IM. Rech alex BG in 30 minutes. May repeat juice/soda, gel, dextrose or gluc agon once per episode. For persistent hypoglycemia, consider longer-acting treatment for the duration of the active insulin., Routine glucose (GLUTOSE) 40% oral gel 15-30 g, Buccal, EVERY 30 MIN PRN, Starting on 06/25 at 0345, Until Tue07/25/19 at 1310, Low blood sugar, For BG 50-70 mg/dL: Oral treatment preferred:?? If able to drink, give 120 mL Juice or R egular (not diet) soda OR If NPO, give 15 gram glucose 40% oral gel massaged into buccal mucosa OR if unconscious or uncooperative, give 25 gram (250 mL) Dex trose 10% IV over 15 minutes per protocol OR, if no IV access, 1 mg Glucagon IM. * * For BG less than 50 mg/dL: Oral treatment preferred:?? If able to drink, give 240 mL Juice or Regular (not diet) soda OR If NPO, give 30 gram glucose 40% oral gel m assaged in buccal mucosa OR if unconscious or uncooperative, give 25 gram (250 mL) Dextrose 10% I V over 15 minutes per protocol OR, if no IV access, 1 mg Glucagon IM. Rech alex BG in 30 minutes. May repeat juice/soda, gel, dextrose or gluc agon once per episode. For persistent hypoglycemia, consider longer-acting treatment for the duration of the active insulin. 1 tube contains 15 grams of glucose (net weig ht of tube = 37.5 grams., Routine heparin (porcine) 25,000 unit/500 mL inf usion 1 dose, Starting on Tue07/24/19 at 0323, Until 06/25 at 0400, MISTY BURROWS: cabinet override heparin 25,000 units in Rate/Dose Verify 07/24/2019 7:45 AM 850 Uni ts/hr 17 mL/hr sodium chloride 0.45% 500 EDT mL infusion 0-5,000 Units/hr (0-100 mL/hr), Intravenous, CONTINUOUS, Starting on Tue07/24/19 at 0415, Until Tue07/24/19 at 1032, BEGIN infusion at 850 units per hr (12 units/kg/hr). MAX INITIAL infusion rate is 1,000 units/hr. Target Heparin UFH Level (anti-Xa activity) = 0.3 - 0.7 IU/mL Start adjustment schedule 6 hours after starting infusion. If Heparin UFH Level is: - less than 0.1 IU/mL, administer PRN bolus and increase rate by 300 units per hr (4 units/kg/hr) - 0.1 - 0.29 IU/mL, administer PRN bolus and increase rate by 150 units per hr (2 units/kg/hr) - 0.3 - 0.7 IU/mL, No Change - 0.71 - 0.85 IU/mL, decrease rate by 50 units per hr (1 units/kg/hr) - 0.86 - 1.05 IU/mL, stop infusion for 30 minutes, then decrease rate by 150 units per hr (2 units/kg/hr) - Greater than 1.05 IU/mL, stop infusion for 60 minutes, then decrease rate by 200 units per hour (3 units/kg/hr) Repeat Heparin UFH Level 6 hours after initiating heparin. Then 6 hours after each dose adjustment. When 2 consecutive Heparin UFH Level within target range of 0.3 - 0.7 IU/mL, change Heparin UFH Level to once every 24 hours with A.M. labs while on heparin. RN to order required Heparin UFH Level - Per Protocol, Routine Rate/Dose Verify 07/24/2019 6:00 AM EDT 850 Units/hr 17 mL/hr New Bag 07/24/2019 4:00 AM EDT 850 Units/hr 17 mL/hr insulin lispro (HumaLOG) VIAL injection 1-6 Given 04/2019 8:20 AM EDT 3 Units Units 1-6 Units, Subcutaneous, EVERY 4 HOURS SCHEDULED, First dose on Tue07/24/19 at 0415, Until Discontinued, CORRECTION BOLUS [1-6 Units] Moderate Sliding Scale: Correction factor 20 (1 unit of insulin is expected to drop the glucose 20 mg/dL) BG 140 - 160 Give 1 unit BG 161 - 180 Give 2 units BG 181 - 200 Give 3 units BG 201 - 220 Give 4 units BG 221 - 240 Give 5 units BG greater than 240, give 6 units and recheck BG in 2 hours. - If recheck BG is LESS than 240, give no insulin and resume schedule. - If recheck BG is GREATER than 240, give 6 units and repeat BG in 2 hours (no more than 3 times) & call for new insulin orders. DO NOT hold if NPO, unless specifically told to do so. Per Blood Glucose Monitoring Policy, re-check a BG of > 240 in 2 hours., Routine Given 07/25/2019 4:18 AM EDT 2 Units Given 07/25/2019 12:10 AM EDT 2 Units lisinopriL (Prinivil;Zestril) tablet 10 mg Given 07/24/2019 8:51 AM EDT 10 mg 10 mg, Oral, DAILY, First dose (after last modification) on Tue07/24/19 at 0900, Until Discontinued, Routine lisinopriL (Prinivil;Zestril) tablet 20 mg Given 07/25/2019 8:18 AM EDT 20 mg 20 mg, Oral, DAILY, First dose (after last modification) on Tue07/25/19 at 0900, Until Discontinued, Routine metoprolol tartrate (Lopressor) tablet 12.5 Given 06/25 12:30 PM EDT 12.5 mg mg 12.5 mg, Oral, EVERY 6 HOURS SCHEDULED, First dose on Tue07/24/19 at 0600, Until Discontinued, Routine Given 07/24/2019 5:06 AM EDT 12.5 mg nicotine (NICODERM CQ) Patch Applied 07/25/2019 8:19 AM 21 mg 03- Shoulder 21 mg/24 hr patch 21 mg EDT (Left) 21 mg (1 patch), Transdermal, DAILY, First dose on Tue07/24/19 at 0900, Until Discontinued, Routine Patch Applied 07/24/2019 8:51 AM EDT 21 mg 04- Shoulder (Right) nicotine (NICODERM CQ) 21 mg/24 hr patch Patch Removal Transdermal, DAILY, First dose on 05/14 at 0815, Until Discontinued, Remove nicotine 21 mg/24 hr patch nicotine (NICODERM CQ) 21 mg/24 hr patch Patch Verification Transdermal, 2 TIMES DAILY, First dose o n Tue07/24/19 at 2015, Until Discontinued, Verify nicotine 21 mg/24 hr patch sodium chloride 0.9 % (flush) flush 5 mL Given 07/24/2019 8:49 PM EDT 5 mLs 5 mL, Intravenous, 2 TIMES DAILY, First dose on Tue07/24/19 at 0900, Until Discontinued, Routine documented in this encounter Active and Recently Administered Medications Times are shown in EDT. Scheduled Medication Order 07/23/2019 07/24/2019 07/25/2019 acetaminophen (Tylenol) tablet 1,000 mg 0506 (Given - Provider: Nora Quezada RN)1446 (Given - Provider: Aleida Rangel, HEAVEN)2208 (Given - Provider: Tammie Escobedo RN) 0519 (Given - Provider: Jose Burdick) 1,000 mg, Oral, EVERY 8 HOURS SCHEDULED, First dose (after last modification) on Tue07/24/19 at 0500, Until Discontinued, Maximum dose of acetaminophen is 4000 mg from all sources in 24 hours., Routine aspirin chewable tablet 81 mg 0851 (Given - Prov ider: Aleida Rangel RN) 0818 (Given - Provider: Aleida Rangel RN) 81 mg, Oral, DAILY, First dose on Tue at 0900, Until Discontinued, Routine atorvastatin (Lipitor) tablet 80 mg 1714 (Given - Provider: Aleida Rangel, HEAVEN) 80 mg, Oral, EVERY EVENING, First dose o n Tue07/24/19 at 1700, Until Discontinued, Routine carvediloL (Coreg) tablet 6.25 mg 1714 ( Given - Provider: Aleida Rangel RN) 0818 (Given - Provider: Aleida Rangel , HEAVEN) 6.25 mg, Oral, 2 TIMES DAILY WITH MEALS, First dose on Tue07/24/19 at 1700, Until Discontinued, Routine clopidogreL (Plavix) tablet 75 mg (CANCELED) 0851 (Given - Provider: Aleida Rangel, HEAVEN) 75 mg, Oral, DAILY, First dose on Tue at 0900, Until Discontinued, Routine insulin lispro (HumaLOG) VIAL injection 1-6 Units(Linked Emmanuel up 1) 0409 (Given - Provider: Nora Quezada, HEAVEN)0800 (Not Given - Provider: Arlet Ambrosio RN - Reason: Order parameters not met - Comment: BG 134)1230 (Given - Provider: Aleida Rangel, HEAVEN)1710 (Given - Provider: Aleida Rangel, HEAVEN) 0010 (Given - Provider: Tammie Escobedo, HEAVEN)0418 (Given - Provider: Tammie Escobedo, HEAVEN)0820 (Given - Provider: Aleida Rangel, HEAVEN) 1-6 Units, Subcutaneous, EVERY 4 HOURS S CHEDULED, First dose on Tue07/24/19 at 0415, Until Discontinued, CORRECTION BOLUS [1-6 Units] Moderate Sliding Scale: Correction factor 20 (1 unit of insulin 2048 (G iven - Provider: Tammie Escobedo, HEAVEN) is expected to drop the glucose 20 mg/dL ) BG 140 - 160 Give 1 unit BG 161 - 180 Give 2 units BG 181 - 200 Give 3 units BG 201 - 220 Give 4 units BG 221 - 240 Give 5 units BG greater than 240, give 6 uni ts and recheck BG in 2 hours. - If reche ck BG is LESS than 240, give no insulin and resume schedule. - If recheck BG is GREATER than 240, give 6 units and repeat BG in 2 hours (no more than 3 times) &am p; call for new insulin orders. DO NOT h old if NPO, unless specifically told to do so. Per Blood Glucose Monitoring Policy, re-check a BG of > 240 in 2 hours., Routine lisinopriL (Prinivil;Zestril) tablet 10 mg (CANCELED) 850 (Given - Provider: Aleida Rangel RN) 10 mg, Oral, DAILY, First dose (after la st modification) on Tue07/24/19 at 0900, Until Discontinued, Routine lisinopriL (Prinivil;Zestril) tablet 20 mg 0818 (Given - Provider: Aleida Rangel RN) 20 mg, Oral, DAILY, First dose (after la st modification) on Tue07/25/19 at 0900, Until Discontinued, Routine metoprolol tartrate (Lopressor) tablet 12.5 mg (CANCELED) 0506 (Given - Provider: Nora Quezada RN)1230 (Given - Provider: Aleida Rangel RN) 12.5 mg, Oral, EVERY 6 HOURS SCHEDULED, First dose on Tue07/24/19 at 0600, Until Discontinued, Routine nicotine (NICODERM CQ) 21 mg/24 hr patch 21 mg(Linked Group 2) 0851 (Patch Applied - Provider: Aleida Rangel RN) 0819 (Patch Applied - Provider: Aleida Rangel RN) 21 mg (1 patch), Transdermal, DAILY, Fir st dose on Tue07/24/19 at 0900, Until Discontinued, Routine nicotine (NICODERM CQ) 21 mg/24 hr patch Patch Removal(Linked Gr oup 2) 0815 (Patch Removed - Provider: Aleida Rangel RN) Transdermal, DAILY, First dose on 05/14 at 0815, Until Discontinued, Remove nicotine 21 mg/24 hr patch nicotine (NICODERM CQ) 21 mg/24 hr patch Patch Verification( Linked Group 2) 2014 (Patch (dose and location) verified - Provider: Tammie Escobedo RN) 819 (Patch (dose and location) verified - Provider: Aleida Rangel RN) Transdermal, 2 TIMES DAILY, First dose o n Tue07/24/19 at 2014, Until Discontinued, Verify nicotine 21 mg/24 hr patch sodium chloride 0.9 % (flush) flush 5 mL 899 (Not Given - Provider: Aleida Rangel RN - Reason: See comment - Comment: infusing)2048 (Given - Provider: Tammie Escobedo RN) 0900 (Not Given - Provider: Aleida rivera RN - Reason: Contraindicated) 5 mL, Intravenous, 2 TIMES DAILY, First dose on Tue07/24/19 at 0900, Until Discontinued, Routine Continuous Medication Order 07/23/2019 07/24/2019 07/25/2019 heparin 25,000 units in sodium chloride 0.45% 500 mL infusio n (CANCELED) 0400 (New Bag - Provider: Nora Quezada RN)0600 (Rate/Dose Verify - Provider: Nora Quezada RN)0745 (Rate/Dose Verify - Provider: Arlet Ambrosio RN)1100 (Stopped - Provider: Aleida Rangel, HEAVEN) 0-5,000 Units/hr (0-100 mL/hr), Intraven ous, at 0-100 mL/hr, CONTINUOUS, Starting Tue07/24/19 at 0415, Until Tue07/24/19 at 1032, BEGIN infusion at 850 units per hr (12 units/kg/hr). MAX INITIAL infusio n rate is 1,000 units/hr. Target Heparin UFH Level (anti-Xa activity) = 0.3 - 0.7 IU/mL Start adjustment schedule 6 hours after starting infusion. If Heparin UFH Level is: - less than 0.1 IU/mL, adminis ter PRN bolus and increase rate by 300 u nits per hr (4 units/kg/hr) - 0.1 - 0.29 IU/mL, administer PRN bolus and increase rate by 150 units per hr (2 units/kg/hr) - 0.3 - 0.7 IU/mL, No Change - 0.71 - 0 .85 IU/mL, decrease rate by 50 units per hr (1 units/kg/hr) - 0.86 - 1.05 IU/mL, stop infusion for 30 minutes, then decrease rate by 150 units per hr (2 units/kg/hr) - Greater than 1.05 IU/mL, stop infu phyllis for 60 minutes, then decrease rate by 200 units per hour (3 units/kg/hr) Repeat Heparin UFH Level 6 hours after initiating heparin. Then 6 hours after each dose adjustment. When 2 consecutive Hepar in UFH Level within target range of 0.3 - 0.7 IU/mL, change Heparin UFH Level to once every 24 hours with A.M. labs while on heparin. RN to order required Heparin UFH Level - Per Protocol, Routine PRN Medication Order 07/23/2019 07/24/2019 07/25/2019 dextrose 10% infusion(Linked Group 3) 250 mL, at 1,000 mL/hr, Intravenous, CARLITOS RY 30 MIN PRN, Starting Tue07/24/19 at 0345, Until Tue07/25/19 at 1310, For BG 50-70 mg/dL: Oral treatment preferred:?? If able to drink, give 120 mL Juice or R egular (not diet) soda OR If NPO, give 1 5 gram glucose 40% oral gel massaged into buccal mucosa OR if unconscious or uncooperative, give 25 gram (250 mL) Dextrose 10% IV over 15 minutes per protocol OR, if no IV access, 1 mg Glucagon IM. F or BG less than 50 mg/dL: Oral treatment preferred:?? If able to drink, give 240 mL Juice or Regular (not diet) soda OR If NPO, give 30 gram glucose 40% oral gel massaged in buccal mucosa OR if unconsci ous or uncooperative, give 25 gram (250 mL) Dextrose 10% IV over 15 minutes per protocol OR, if no IV access, 1 mg Glucagon IM. Recheck BG in 30 minutes. May re peat juice/soda, gel, dextrose or glucag on once per episode. For persistent hypoglycemia, consider longer-acting treatment for the duration of the active insulin. glucagon (human recombinant) injection SolR 1 mg(Linked Group 3) 1 mg, Intramuscular, EVERY 30 MIN PRN, S tarting Tue07/24/19 at 0345, Until Tue07/25/19 at 1310, Low blood sugar, For BG 50-70 mg/dL: Oral treatment preferred:?? If able to drink, give 120 mL Juice or Regular (not diet) soda OR If NPO, give 15 gram glucose 40% oral gel massaged into buccal mucosa OR if unconscious or uncooperative, give 25 gram (250 mL) Dextrose 10% IV over 15 minutes per protocol OR , if no IV access, 1 mg Glucagon IM. For BG less than 50 mg/dL: Oral treatment preferred:?? If able to drink, give 240 mL Juice or Regular (not diet) soda OR If NPO, give 30 gram glucose 40% oral gel massaged in buccal mucosa OR if unconsc ious or uncooperative, give 25 gram (250 mL) Dextrose 10% IV over 15 minutes per protocol OR, if no IV access, 1 mg Glucagon IM. Recheck BG in 30 minutes. May r epeat juice/soda, gel, dextrose or gluca pierce once per episode. For persistent hypoglycemia, consider longer-acting treatment for the duration of the active insulin., Routine glucose (GLUTOSE) 40% oral gel(Linked Group 3) 15-30 g, Buccal, EVERY 30 MIN PRN, Start ing Tue07/24/19 at 0345, Until Tue07/25/19 at 1310, Low blood sugar, For BG 50-70 mg/dL: Oral treatment preferred:?? If able to drink, give 120 mL Juice or Regu lar (not diet) soda OR If NPO, give 15 g fredi glucose 40% oral gel massaged into buccal mucosa OR if unconscious or uncooperative, give 25 gram (250 mL) Dextrose 10% IV over 15 minutes per protocol OR, if no IV access, 1 mg Glucagon IM. For BG less than 50 mg/dL: Oral treatment preferred:?? If able to drink, give 240 mL Juice or Regular (not diet) soda OR If NPO, give 30 gram glucose 40% oral gel mas saged in buccal mucosa OR if unconscious or uncooperative, give 25 gram (250 mL) Dextrose 10% IV over 15 minutes per protocol OR, if no IV access, 1 mg Glucagon IM. Recheck BG in 30 minutes. May repea t juice/soda, gel, dextrose or glucagon once per episode. For persistent hypoglycemia, consider longer-acting treatment for the duration of the active insulin. 1 tube contains 15 grams of glucose (net weight of tube = 37.5 grams., Routine lidocaine (XYLOCAINE) 10 mg/mL (1 %) injection 3 mg 3 mg (0.3 mL), Subcutaneous, ONCE PRN, 1 dose, Starting Tue07/24/19 at 0345, Until Tue07/25/19 at 1310, for discomfort with PIV insertion, Routine nitroGLYcerin (Nitrostat) disintegrating tablet 0.4 mg 0.4 mg, Sublingual, EVERY 5 MIN PRN, Sta rting Tue07/24/19 at 0345, Until Tue07/25/19 at 1310, Chest pain, May repeat every 5 minutes for a total of three doses. Notify provider if chest pain not relieved with nitroglycerin. Do not administer n itroglycerin if the patient has received or taken phosphodiesterase (PDE-5) inhibitors such as sildenafil, tadalafil or vardenafil within the last 24 to 72 hours., Routine sodium chloride 0.9 % (flush) flush 5-20 mL 5-20 mL, Intravenous, EVERY 1 MIN PRN, S tarting Tue07/24/19 at 0345, Until Tue07/25/19 at 1310, flush, Flush pertains to all indwelling lines. Flush per protocol found in the job aid using the link provided on this medication record., Routine Linked Groups Order Group 1: POCT Fingerstick Glucose (CANCELED) Routine, EVERY 4 HOURS, First occurrence on Tue07/24/19 at 0350, Until Specified
Consider choosing EVERY 4 HOURS as frequency for: - Type 1 Diabetes - At least 24 hours after coming off an insu katy drip - At least 24 hours after admis phyllis for DKA - Hypoglycemia unawareness - Patients who are otherwise unstable Select the same frequency for the correction bolus insulin order And insulin lispro (HumaLOG) VIAL injection 1-6 UnitsJump to med 1-6 Units, Subcutaneous, EVERY 4 HOURS S CHEDULED, First dose on Tue07/24/19 at 0415, Until Discontinued
CORRECTION BOLUS [1-6 Units] Moderate Sliding Scale: Correction factor 20 (1 unit of insulin is expected to drop the glucose 20 mg/dL) BG 140 - 160 Give 1 unit BG 161 - 180 Give 2 units BG 181 - 200 Give 3 units BG 201 - 220 Giv e 4 units BG 221 - 240 Give 5 unit s BG greater than 240, give 6 units and recheck BG in 2 hours. - If recheck BG is LESS than 240, give no insulin and resume schedule. &amp ;nbsp;- If recheck BG is GREATER than 24 0, give 6 units and repeat BG in 2 hours (no more than 3 times) & call for new insulin orders. DO NOT hold if NPO, unless specifically told to do so. P er Blood Glucose Monitoring Policy, re- check a BG of > 240 in 2 hours.
Routine Group 2: nicotine (NICODERM CQ) 21 mg/24 hr patch 21 mgJump to med 21 mg (1 patch), Transdermal, DAILY, Fir st dose on Tue07/24/19 at 0900, Until Discontinued, Routine And nicotine (NICODERM CQ) 21 mg/24 hr patch Patch VerificationJump to med Transdermal, 2 TIMES DAILY, First dose o n Tue07/24/19 at 2015, Until Discontinued
Verify nicotine 21 mg/24 hr patch
And nicotine (NICODERM CQ) 21 mg/24 hr patch Patch RemovalJump to med Transdermal, DAILY, First dose on 05/14 at 0815, Until Discontinued
Remove nicotine 21 mg/24 hr patch
Group 3: glucose (GLUTOSE) 40% oral gelJump to med 15-30 g, Buccal, EVERY 30 MIN PRN, Start ing Tue07/24/19 at 0345, Until Tue07/25/19 at 1310, Low blood sugar
For BG 50-70 mg/dL: Oral treatment preferred:?? If able to drink, give 120 mL Juice or Regular (not diet) soda OR If NPO, g stella 15 gram glucose 40% oral gel massaged into buccal mucosa OR if unconscious or uncooperative, give 25 gram (250 mL) Dextrose 10% IV over 15 minutes per protoco l OR, if no IV access, 1 mg Glucagon IM. For BG less than 50 mg/dL: Oral treatment preferred:?? If able to drink, give 240 mL Juice or Regular (not diet) soda OR If NPO, give 30 gram glucos e 40% oral gel massaged in buccal mucosa OR if unconscious or uncooperative, give 25 gram (250 mL) Dextrose 10% IV over 15 minutes per protocol OR, if no IV access, 1 mg Glucagon IM. Recheck BG in 30 minutes. May repeat juice/soda, gel, dextrose or glucagon once per episode. For persistent hypoglycemia, consider longer-acting treatment for the duration of the active i nsulin. 1 tube contains 15 grams of glucose (net weight of tube = 37.5 grams.
Routine Or dextrose 10% infusionJump to med 250 mL, at 1,000 mL/hr, Intravenous, CARLITOS RY 30 MIN PRN, Starting Tue07/24/19 at 0345, Until Tue07/25/19 at 1310
For BG 50-70 mg/dL: Oral treatment preferred:?? If able to drink, give 120 mL Ju ice or Regular (not diet) soda OR If NPO , give 15 gram glucose 40% oral gel massaged into buccal mucosa OR if unconscious or uncooperative, give 25 gram (250 mL) Dextrose 10% IV over 15 minutes per prot ocol OR, if no IV access, 1 mg Glucagon IM. For BG less than 50 mg/dL: Oral treatment preferred:?? If able to drink, give 240 mL Juice or Regular (not diet) soda OR If NPO, give 30 gram glu cose 40% oral gel massaged in buccal muc meg OR if unconscious or uncooperative, give 25 gram (250 mL) Dextrose 10% IV over 15 minutes per protocol OR, if no IV access, 1 mg Glucagon IM. Reche ck BG in 30 minutes. May repeat juice/so da, gel, dextrose or glucagon once per episode. For persistent hypoglycemia, consider longer-acting treatment for the duration of the active insulin.
Or glucagon (human recombinant) injection SolR 1 mgJump to med 1 mg, Intramuscular, EVERY 30 MIN PRN, S tarting Tue07/24/19 at 0345, Until Tue07/25/19 at 1310, Low blood sugar
For BG 50-70 mg/dL: Oral treatment preferred:?? If able to drink, give 120 mL J uice or Regular (not diet) soda OR If CLASSIFICATION AND TREATMENT DIRECTOR O, give 15 gram glucose 40% oral gel massaged into buccal mucosa OR if unconscious or uncooperative, give 25 gram (250 mL) Dextrose 10% IV over 15 minutes per pro tocol OR, if no IV access, 1 mg Glucagon IM. For BG less than 50 mg/dL: Oral treatment preferred:?? If able to drink, give 240 mL Juice or Regular (not diet) soda OR If NPO, give 30 gram gl ucose 40% oral gel massaged in buccal mu cosa OR if unconscious or uncooperative, give 25 gram (250 mL) Dextrose 10% IV over 15 minutes per protocol OR, if no IV access, 1 mg Glucagon IM. Rech alex BG in 30 minutes. May repeat juice/s juan m, gel, dextrose or glucagon once per episode. For persistent hypoglycemia, consider longer-acting treatment for the duration of the active insulin.
Routine documented in this encounter Care Teams Financial Examiner Relationship Specialty Start Date End Date Joel Mccarthy MD PCP - General General Internal Medicine 06/29/18 [address] [place] [address] documented as of this encounter
--- OUTSIDE RECORDS SUMMARY | 2021-10-30 01:53 | XMS_ITS | Encounter Summary ---
:1960 Author Organization [facility] [place] [address] Care Team Providers Name Role Phone Joel Mccarthy MD Primary Care Provider Encounter Details Date Type Department Care Team Description 07/23/2019 Ancillary Procedure Radiology Library at Kiet Almodovar MD [facility] [place] [address] [place] [address] [phone] (Wo rk) Social History Tobacco Use Types Packs/Day Years [...] Name Priority Date/Time Associated Diagnosis Comme nts FILM LIBRARY Routine 07/23/2019 12:00 AM Results for this STORAGE ONLY DX EDT procedure ar e in CHEST the results section. documented in this encounter Results Film Library- Storage Only DX Chest (07/23/2019 12:00 AM EDT) Specimen (Source) Anatomical Location Collection Method / Collectio n Time Received Time / Laterality Volume Narrative SHWETA - 07/24/2019 12:36 AM EDT This exam is auto-finalizing. It's purpo se is for storage only. Kiet Almodovar MD G FILM LIBRARY ORDERABLES Performing Organization Address City/State/ZIP Code Phon e Number [place], [place] documented in this encounter Visit Diagnoses Not on filedocumented in this encounter Care Teams Forensic Sergeant Relationship Specialty Start Date End Date Joel Mccarthy MD PCP - General General Internal Medicine 06/29/18 [address] [place] [address] documented as of this encounter
--- OUTSIDE RECORDS SUMMARY | 2021-10-30 01:53 | XMS_ITS | Encounter Summary ---
:1960 Author Organization [facility] [place] [address] Care Team Providers Name Role Phone Joel Mccarthy MD Primary Care Provider Encounter Details Date Type Department Care Team Description 08/30/2018 Telephone Vascular Surgery at [facility] Laurel Gamez, [place] [address] Social History Tobacco Use Types Packs/Day Years Used Date Former Smoker 1 40 Smokeless Tobacco: Never Used Alcohol Use Standard Drinks/Week Comments Yes 4 (1 standard drink = 0.6 oz pure alcoho l) Sex Assigned at Date Recorded Not on file documented as of this encounter Miscellaneous Notes Telephone Encounter - Laurel Gamez RN - 08/30/2018 9:13 AM EDT Paperwork faxed to help Pt with transportation to clinic visits documented in this encounter Plan of Treatment Not on filedocumented as of this encounter Visit Diagnoses Not on filedocumented in this encounter Care Teams Presentation Specialist Relationship Specialty Start Date End Date Joel Mccarthy MD PCP - General General Internal Medicine 06/29/18 [address] [place], [place] [id number] documented as of this encounter
--- OUTSIDE RECORDS SUMMARY | 2021-10-30 01:53 | XMS_ITS | Encounter Summary ---
:1960 Author Organization [facility] [place] [address] Care Team Providers Name Role Phone Joel Mccarthy MD Primary Care Provider Encounter Details Date Type Department Care Team Description 07/24/2019 Orders Only Cardiology [facility] [place] [address] Social History Tobacco Use Types Packs/Day [...] Name Priority Date/Time Associated Diagnosis Comme nts EKG 12-LEAD Routine 07/24/2019 3:29 AM Results f or this EDT procedure are i n the results section . documented in this encounter Results EKG 12 Lead (07/24/2019 3:29 AM EDT) Component Value Ref Range Test Analysis Performed Pathologis t Method Time At Signature Ventricular rate 91 BPM MUSE SYSTEM Atrial Rate 91 BPM MUSE SYSTEM P-R Interval 142 ms MUSE SYSTEM QRS Duration 88 ms MUSE SYSTEM Q-T Interval 354 ms MUSE SYSTEM QTC Calculated 435 ms MUSE SYSTEM (Bezet) Calculated P Ashley 76 degrees MUSE SYSTEM Calculated R Ashley 57 degrees MUSE SYSTEM Calculated T Ashley 85 degrees MUSE SYSTEM INTERPRETATION Normal sinus rhythm MUSE SYSTEM Possible Left atrial enlargement Poor R wave progression Abnormal ECG When compared with ECG of 28-JUN-2018 14:38, No significant change was found Confirmed by MD ZIEGLER SALVATORE ([id number]) on 07/24/2019 4:30:44 PM Specimen Anatomical Collection Method Collection Time Receive d Time (Source) Location / / Volume Laterality 07/24/2019 3:29 AM 0 4:30 EDT PM EDT Unknown ECG ORDERABLES Performing Organization Address City/State/ZIP Code Phon e Number MUSE SYSTEM documented in this encounter Visit Diagnoses Not on filedocumented in this encounter Care Teams Machine Room Engineer Relationship Specialty Start Date End Date Joel Mccarthy MD PCP - General General Internal Medicine 06/29/18 [address] [place] [address] documented as of this encounter
--- OUTSIDE RECORDS SUMMARY | 2021-10-30 01:53 | XMS_ITS | Encounter Summary ---
:1960 Author Organization [facility] [place] [address] Care Team Providers Name Role Phone Joel Mccarthy MD Primary Care Provider Reason for Visit Diagnostic Test (Routine) - Canceled Specialty Diagnoses / Procedures Referred By Contact Refer red To Contact Radiology Diagnoses Infection of right foot [facility] Rad Mri Procedures MRI Foot wwo Contrast Right One [facility] [place] [address] [place] [address] Phone: Referral ID Status Reason Start Expiration Visits Visits Date Date Requested Authorized [id number] Canceled Specialty 08/14/2018 08/14/2019 1 1 Service Requested Encounter Details Date Type Department Care Team Description 09/01/2018 Hospital Encounter MRI [place] [facility], Canceled [facility] (P-INCONVENIENT DATE Drive ONE MEDICAL OR TIME) [facility] [id number] VASCULAR SURGERY [phone] [place] [address] Social History Tobacco Use Types Packs/Day Years Used Date Former Smoker 1 40 Smokeless Tobacco: Never Used Alcohol Use Standard Drinks/Week Comments Yes 4 (1 standard drink = 0.6 oz pure alcoho l) Sex Assigned at Date Recorded Not on file documented as of this encounter Medications at Time of Discharge Medication Sig Dispensed Refills Start Date End Date oxyCODONE (ROXICODONE) Take 1 tablet by 15 tablet 0 08/15/2 019 5 mg TabletIndications: mouth every 4 hours PAD (peripheral artery as needed for Pain. disease) sertraline (ZOLOFT) 50 Take 50 mg by mouth 0 mg Tablet daily. nicotine (NICODERM CQ) Place 1 patch onto 28 patch 0 07/20 21 mg/24 hr Patch 24 hr the skin daily. acetaminophen (TYLENOL) Take 2 tablets by 30 tablet 1 07/16 500 mg Tablet mouth every 6 hours as needed for Pain. aspirin 81 mg Tablet, Take 81 mg by mouth 30 tablet 3 07/16 Chewable daily. atorvastatin (LIPITOR) Take 1 tablet by 30 tablet 3 017 80 mg Tablet mouth every evening. Insulin Syringe-Needle 1 Box by 100 Syringe 3 07/16/2016 U-100 1 mL 31 gauge x Misc.(Non-Drug; 09/07 Syringe Combo Route) route 2 times daily. gabapentin (NEURONTIN) Take 400 mg by mouth 0 400 mg Capsule 3 times daily. FLUoxetine (PROZAC) 40 Take 80 mg by mouth 0 mg Capsule daily. nicotine polacrilex Place inside cheek 0 07/25/2019 (COMMIT) 4 mg Lozenge as needed for Smoking cessation. clindamycin (CLEOCIN) Take 300 mg by mouth 0 07/25/2019 300 mg Capsule 3 times daily. metFORMIN (GLUCOPHAGE) Take 1 tablet by 60 tablet 12 019 07/25/2019 500 mg Tablet mouth 2 times daily (with meals). 07/20: Do not take until instructed AFTER surgery clopidogrel (PLAVIX) 75 Take 1 tablet by 90 tablet 3 201807/25/2019 mg Tablet mouth daily. isosorbide mononitrate take 1 tablet by 0 017 07/25/2019 (IMDUR) 60 mg Tablet mouth once daily Sustained Release 24 hr furosemide (LASIX) 20 take 1 tablet by 0 08/10/19 17 07/25/2019 mg Tablet mouth once daily lisinopril Take 1 tablet by 90 tablet 11 08/05/2016 07/25/19 20 (PRINIVIL;ZESTRIL) 5 mg mouth daily. TabletIndications: Essential hypertension meTOPROLOL tartrate Take 1 tablet by 60 tablet 12 07/16/2016 07/25/2019 (LOPRESSOR) 100 mg mouth 2 times daily. Tablet glipiZIDE (GLUCOTROL) Take 20 mg by mouth 0 07/25/2019 10 mg Tablet daily. omeprazole (PRILOSEC) Take 40 mg by mouth 0 07/25/2019 40 mg Capsule, Delayed daily. Release(E.C.) documented as of this encounter Plan of Treatment Not on filedocumented as of this encounter Visit Diagnoses Not on filedocumented in this encounter Care Teams Certified Master Safe Technician Relationship Specialty Start Date End Date Joel Mccarthy MD PCP - General General Internal Medicine 06/29/[address] [facility] [address] [place] [address] documented as of this encounter
--- OUTSIDE RECORDS SUMMARY | 2021-10-30 01:53 | XMS_ITS | Encounter Summary ---
:1960 Author Organization [facility] [place] [address] Care Team Providers Name Role Phone Joel Mccarthy MD Primary Care Provider Encounter Details Date Type Department Care Team Description 07/23/2019 Telephone Cardiology Carla Rojas MD [facility] [place] [address] CARDIOLOGY DEPT [phone] [place], [place] [address] (Wo rk) Social History Tobacco Use Types Packs/Day Years Used Date Former Smoker 1 40 Smokeless Tobacco: Never Used Alcohol Use Standard Drinks/Week Comments Yes 4 (1 standard drink = 0.6 oz pure alcoho l) Sex Assigned at Date Recorded Not on file documented as of this encounter Miscellaneous Notes Telephone Encounter - Carla Rojas MD - 07/23/2019 11:21 PM EDT TELEPHONE TRIAGE NOTE Patient Name: Oleg Berry Patient Initial contact date: 07/23/2019 Initial contact time: 11:21 PM Referring provider: Dr. Barlow Patient location: [facility] Past Medical History: HTN HLD Diabetes CAD s/p CABG x 4 06/2016 (FOSS to LAD, SVG to OM, SVG to diag, LEAH to RCA) PAD Presenting Symptoms per OSH: Patient is a poor historian. He called EMS complaining of bilateral palm pain, which he is concernedis consistent with symptoms he had during prior NE. He states this pain has been intermittent for the past week, but worse today and more persistent, which is why he called EMS. Has not taken medications in 4 months, including, ASA, Plavix, antihypertensives, and diabetes medications. EKG on arrival showed LADY in V1 and V2 without definitive reciprocal changes. Initial troponin is negative. Pertinent Diagnostic Findings: Vitals: 145/85, HR 98bpm, RR 18, 98% RA, afeb. EKG: NSR, LADY V1-2, ?reciprocal changes in Labs: Troponin negative, BMP WNL, CBC WNL Imaging: None OSH Interventions: Plavix 600mg ASA 324mg Plan: -Discussed case at length with the interventional attending application integration engineer. LADY are concerning, but lack ofchest pain without definitive reciprocal changes is not a definite STEMI. Initial troponin is negative, as well despite ongoing chest pain. He also has already received Plavix 600mg (higher than dose we would give with lytics). -Plan to repeat troponin now. Repeat EKG now. -[place] [facility] -Lytics will be determined by repeat troponin and EKG and evaluation on arrival here. -Hold off on calling in STEMI team at this time. Carla Rojas, PGY4 Cardiovascular Disease Fellow documented in this encounter Plan of Treatment Not on filedocumented as of this encounter Visit Diagnoses Not on filedocumented in this encounter Care Teams Plodder Operator Relationship Specialty Start Date End Date Joel Mccarthy MD PCP - General General Internal Medicine 06/29/18 [address] [place] [address] documented as of this encounter
--- OUTSIDE RECORDS SUMMARY | 2021-10-30 01:53 | XMS_ITS | Encounter Summary ---
:1960 Author Organization [facility] [place] [address] Care Team Providers Name Role Phone Joel Mccarthy MD Primary Care Provider Encounter Details Date Type Department Care Team Description 10/23/2018 Telephone [place] [facility] [place] Laurel Gamez, [place] [address] Social History Tobacco Use Types Packs/Day Years Used Date Former Smoker 1 40 Smokeless Tobacco: Never Used Alcohol Use Standard Drinks/Week Comments Yes 4 (1 standard drink = 0.6 oz pure alcoho l) Sex Assigned at Date Recorded Not on file documented as of this encounter Miscellaneous Notes Telephone Encounter - Laurel Gamez RN - 10/23/2018 4:22 PM EDT Med/med interaction on omeprazole and clopidogrel sent to PCP from [facility] for consideration of changing Pt's PPI. documented in this encounter Plan of Treatment Not on filedocumented as of this encounter Visit Diagnoses Not on filedocumented in this encounter Care Teams Grant Manager Relationship Specialty Start Date End Date Joel Mccarthy MD PCP - General General Internal Medicine 06/29/18 [address] [place] [address] documented as of this encounter
--- OUTSIDE RECORDS SUMMARY | 2021-10-30 01:53 | XMS_ITS | Encounter Summary ---
:1960 Author Organization [facility] [place] [address] Care Team Providers Name Role Phone Joel Mccarthy MD Primary Care Provider Reason for Visit Reason Onset Date Comments Medication Refill 08/15/2018 Encounter Details Date Type Department Care Team Description 08/15/2018 Refill Vascular Surgery at Sony Cash MD PAD (peripheral artery [facility] DR disease) (Primary Dx) [facility] VASCULAR SURG [place] [id number] [phone] Social History Tobacco Use Types Packs/Day Years Used Date Former Smoker 1 40 Smokeless Tobacco: Never Used Alcohol Use Standard Drinks/Week Comments Yes 4 (1 standard drink = 0.6 oz pure alcoho l) Sex Assigned at Date Recorded Not on file documented as of this encounter Plan of Treatment Not on filedocumented as of this encounter Visit Diagnoses Diagnosis PAD (peripheral artery disease) - Primar y Peripheral vascular disease, unspecified documented in this encounter Care Teams Adoption Worker Relationship Specialty Start Date End Date Joel Mccarthy MD PCP - General General Internal Medicine 06/29/18 [address] [place] [address] documented as of this encounter
--- OUTSIDE RECORDS SUMMARY | 2021-10-30 01:53 | XMS_ITS | Encounter Summary ---
:1960 Author Organization [facility] [place] [address] Care Team Providers Name Role Phone Joel Mccarthy MD Primary Care Provider Reason for Visit Reason Comments Peripheral Arterial Disease prox sfa sent pt states on abx for wound infection and describes nerve pain Encounter Details Date Type Department Care Team Description 08/11/2018 Office Visit Vascular Surgery at Pooja Oneal MD Critical lower limb [facility] ischemia [facility] DR [place] VASCULAR SURGERY [place] [phone] Social History Tobacco Use Types Packs/Day Years Used Date Former Smoker 1 40 Smokeless Tobacco: Never Used Alcohol Use Standard Drinks/Week Comments Yes 4 (1 standard drink = 0.6 oz pure alcoho l) Sex Assigned at Date Recorded Not on file documented as of this encounter Last Filed Vital Signs Vital Sign Reading Time Taken Comments Blood Pressure 114/45 08/11/2018 1:29 PM EDT Pulse 101 08/11/2018 1:29 PM EDT Temperature - - Respiratory Rate 18 08/11/2018 1:29 PM EDT Oxygen Saturation - - Inhaled Oxygen Concentration - - Weight 81.6 kg (180 lb) 08/11/2018 1:29 PM EDT Height 167.6 cm (5' 6) 08/11/2018 1:29 PM EDT Body Mass Index 29.05 08/11/2018 1:29 PM EDT documented in this encounter Progress Notes Lamine Oneal MD - 08/11/2018 1:15 PM EDT Images from the original note were not included. Vascular Surgery Clinic Visit August 11, 2018 CC: Patient is a 57 y.o. male who is here for follow up of CLI. 06/28/18 R fem endart/iliac stent for CLI (right heel wound) 07/21/18 R SFA cutdown and stent placement (5x25 Viabahn, 6x60 SE stent p 5) Presents for scheduled follow up visit. Underwent above procedure for right heel fissure. Right heel wound is healing. He reports a different type of pain in his right foot arch that is quite bothersome. ?? ROS significant for CAD s/p CABG in 2017. ??No recent CP or SOB. Denies history of stroke, TIA, or amaurosis fugax. Has DM on insulin. Continues to smoke about 1ppd. ?? PMH: CAD s/p CABG ', HTN, HLD, DM All: NKDA Medications include: asa, plavix, imdur, lisinopril, lopressor, lasix, lipitor, prilosec, insulin, metformin, glipizide, neurontin, prozac, zoloft ?? Tob: current, 1ppd. ?? Physical Exam: ?? On exam, patient in NAD. Right groin incision with minimal fibrinous exudate on upper aspect. Right thigh incision with some dry scab. No erythema, drainage, or fluctuance. Right heel wound healing with granulation tissue. No surrounding erythema, drainage, or fluctuance. Right foot arch tender to palpation. No erythema, drainage, or fluctuance. Labs: Hot Blaster (07/22/18): 0.88 Lipids (07/09/16): TC 295, HDL 23, LDL 159 HbA1C (07/18/18): 8.9 Imaging studies: I have personally reviewed the following imaging studies. REYMUNDO (08/11/18): 0.91/0.42 A/P: 57yo male with CLI (right heel wound) s/p revascularization as above. Now with significantly improved blood flow and the heel wound is healing. He has a new type of pain around his arch however. Will plan for MRI to ensure no deep tissue infection. -con't asa, plavix, and statin -encouraged smoking cessation -abx ointment/DSD to right groin incision and heel wound -R foot MRI r/o infection -f/u after above Lamine Oneal MD documented in this encounter Plan of Treatment Not on filedocumented as of this encounter Visit Diagnoses Diagnosis Critical lower limb ischemia Unspecified circulatory system disorder documented in this encounter Care Teams Music Writer Relationship Specialty Start Date End Date Joel Mccarthy MD PCP - General General Internal Medicine 06/29/18 [address] [place] [address] documented as of this encounter
--- OUTSIDE RECORDS SUMMARY | 2021-10-30 01:53 | XMS_ITS | Encounter Summary ---
:1960 Author Organization [facility] [place] [address] Care Team Providers Name Role Phone Joel Mccarthy MD Primary Care Provider Encounter Details Date Type Department Care Team Description 07/23/2019 External Results Transfer Center [facility] [place] [address] Social History Tobacco Use Types Packs/Day [...] Name Priority Date/Time Associated Diagnosis Comme nts ECG SCAN Routine 07/23/2019 Results for thi s procedure are in the resu lts section. ECG SCAN Routine 07/23/2019 Results for thi s procedure are in the resu lts section. documented in this encounter Results Scan Doc: ECG (07/23/2019) Narrative This result has an attachment that is no t available. Historical Provider MEDIA MGR SCAN EXT ORDR/RSLT Scan Doc: ECG (07/23/2019) Narrative This result has an attachment that is no t available. Historical Provider MEDIA MGR SCAN EXT ORDR/RSLT documented in this encounter Visit Diagnoses Not on filedocumented in this encounter Care Teams Traffic Circuit Engineer Relationship Specialty Start Date End Date Joel Mccarthy MD PCP - General General Internal Medicine 06/29/18 [address] [place], [place] [id number] documented as of this encounter
--- OUTSIDE RECORDS SUMMARY | 2021-10-30 01:53 | XMS_ITS | Encounter Summary ---
:1960 Author Organization [facility] [address] Care Team Providers Name Role Phone Joel Mccarthy MD Primary Care Provider Encounter Details Date Type Department Care Team Description 08/14/2018 Orders Only Vascular Surgery Heavenly Tran MD [facility] [place] [address] VASCULAR SURGERY [phone] [place] [address] (Wo rk) Social History Tobacco Use Types [...] on filedocumented in this encounter Care Teams Commercial Lines Account Executive Relationship Specialty Start Date End Date Joel Mccarthy MD PCP - General General Internal Medicine 06/29/18 [address] [place] [address] documented as of this encounter
--- OUTSIDE RECORDS SUMMARY | 2021-10-30 01:53 | XMS_ITS | Encounter Summary ---
:1960 Author Organization [facility] [place] [address] Care Team Providers Name Role Phone Joel Mccarthy MD Primary Care Provider Encounter Details Date Type Department Care Team Description 08/30/2018 Orders Only Vascular Surgery at [facility] [place] [address] Social History Tobacco Use Types Packs/Day [...] on filedocumented in this encounter Care Teams Appraiser Irrigation Tax Relationship Specialty Start Date End Date Joel Mccarthy MD PCP - General General Internal Medicine 06/29/18 [address] [place], [place] [address] documented as of this encounter
--- OUTSIDE RECORDS SUMMARY | 2021-10-30 01:53 | XMS_ITS | Encounter Summary ---
:1960 [place] [address] Care Team Providers Name Role Phone Joel Mccarthy MD Primary Care Provider Encounter Details Date Type Department Care Team Description 08/14/2018 Orders Only Vascular Surgery at Mary Jane Cornejo I nfection of right [facility] [place] [phone] Social History Tobacco Use Types Packs/Day Years Used Date Former Smoker 1 40 Smokeless Tobacco: Never Used Alcohol Use Standard Drinks/Week Comments Yes 4 (1 standard drink = 0.6 oz pure alcoho l) Sex Assigned at Date Recorded Not on file documented as of this encounter Plan of Treatment Not on filedocumented as of this encounter Visit Diagnoses Diagnosis Infection of right foot Unspecified local infection of skin and subcutaneous tissue documented in this encounter Care Teams Cash Room Clerk Relationship Specialty Start Date End Date Joel Mccarthy MD PCP - General General Internal Medicine 06/29/18 [address] [place], [place] [address] documented as of this encounter
--- OUTSIDE RECORDS SUMMARY | 2021-10-30 01:53 | XMS_ITS | Encounter Summary ---
:1960 Author Organization [facility] [place] [address] Care Team Providers Name Role Phone Joel Mccarthy MD Primary Care Provider Reason for Visit Auth/Cert Specialty Diagnoses / Procedures Referred By Contact Refer red To Contact Diagnoses RLE CLI Procedures PRO PLACE CATH/NEEDLE EXTREMITY ARTERY PRO EXPLORATION, FEMORAL ARTERY INTRODUCE CATHETER IN UPPER OR LOWER EXTREMITY ARTERY (EG [facility]AC OR FEMORAL) [facility] @EXPLORATION, W/WO LYSIS, FEMORAL ARTERY W\O SURGICAL REPAIR ([facility]) Referral ID Status Reason Start Date Expiration Date Visits Requ ested Visits Authorized [id number] 1 1 Encounter Details Date Type Department Care Team Description 07/21/2018 Surgery Main Operating Room Pooja Oneal MD INTRODUCE CATHETER IN [facility] OR [facility] DR EXTREMITY ARTERY (EG [facility] VASCULAR SURG PRECIOUS ILIAC OR FEMORAL) ([place] [id number] 2.01) [place] [address] [phone] Social History Tobacco Use Types Packs/Day Years Used Date Former Smoker 1 40 Smokeless Tobacco: Never Used Alcohol Use Standard Drinks/Week Comments Yes 4 (1 standard drink = 0.6 oz pure alcoho l) Sex Assigned at Date Recorded Not on file documented as of this encounter Last Filed Vital Signs Vital Sign Reading Time Taken Comments Blood Pressure 118/65 07/21/2018 2:33 PM EDT Pulse 82 07/21/2018 4:00 PM EDT Temperature 36.6 ??C (97.9 ??F) 07/21/2018 2:33 PM EDT Respiratory Rate 18 07/21/2018 4:00 PM EDT Oxygen Saturation 99% 07/21/2018 4:00 PM EDT Inhaled Oxygen Concentration - - Weight 80.7 kg (178 lb) 07/21/2018 2:33 PM EDT Height 167.6 cm (5' 6) 07/21/2018 2:33 PM EDT Body Mass Index 28.73 07/21/2018 2:33 PM EDT documented in this encounter Discharge Summaries Meliton Rodriguez MD - 07/22/2018 11:58 AM EDT Images from the original note were not included. Inpatient - Discharge Summary Patient Name: Bertin Lorenzo Patient Age: 57 y.o. Birthdate: 1960 Admit date: 07/21/2018 Discharge date and time: 07/22/2018 Attending Physician: Jhonny Oneal MD Discharge Diagnoses (Hospital Problems) and Secondary Diagnoses (Chronic Problems): Active Hospital Problems Diagnosis ??? Critical lower limb ischemia Resolved Hospital Problems No resolved problems to display. Active Non-Hospital Problems Diagnosis ??? Leg pain, bilateral ??? Aortoiliac occlusive disease ??? S/P CABG (coronary artery bypass graft) ??? Atherosclerosis of [place] artery of right lower extremity with intermittent claudication ?? Noted on aortogram done in laborer shaft sinking Jun 2016. 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 ??? Hypertension ??? Financial difficulties--- barrier to medication use ??? Coronary artery disease 06/2016: NSTEMI. Cath showing 3vD. Surgery recommended. ??? Non ST elevation RI due to severe 3vD-- awaiting for CABG Tuesday ??? Diabetes mellitus, type 2 ??? Hyperlipidemia ??? Osteoarthritis Operations/Major Procedures: 07/21/18 1. Open right superficial femoral artery cutdown 2. Right lower extremity angiogram 3. Right superficial femoral artery stents (Viabahn 5mm x 2.5 cm stent graft at SFA origin, Epic bare metal self expanding stent 6 x 60 overlapping viabahn extending into proximal SFA, post dilated with 5 x 40 balloon) ?? History of Presentation: Bertin Lorenzo??is a 57 y.o.??male??with history of DM, CAD s/p CABG 2017, MELONIE not on nightlyCPAP, diverticulitis s/p partial bowel resection??who has been followed in the vascular surgery clinic for aortoiliac occlusive disease.?He was recently admitted for??rest pain and heel wound 06/27/18- 06/30/18 where??CTA demonstrated??occlusion of the right external iliac artery and severe GEAR SHAPER stenosis. ??For this he underwent right iliofemral endarterectomy with patch graft and stenting. Pt continues to have severe rest pain on right and progression of heel ulcer. Pt had angiogram on 07/19 that revealed SFA occlusion. Lesion could not be crossed with wire. Therefore pt presents today for SFA cutdown and attempt at crossing from below. ?? Hospital Course: Admitted following R SFA cutdown and stenting. Post op right doppler signals were significantly improved - strong R DP PT signals. POD 1 dressing was removed. Incision c/d/i w/ steri strips. No rednessor drainage. Pt ambulated morning of POD 1 and reported improved feeling in RLE with less pain. Pt continued on asa plavix. Was ready for dc to home POD 1. Pt educated to run soap and water over incisions daily and pat dry, to call if any redness or drainage. Pt also educated to bear minimal weight to right heel and check fissure appearance daily. Pt will f/u in [address] Oneal. Important Studies and Lab Data: Lab Results Component Value Date WBC 12.9 (H) 07/22/2018 HGB 11.1 (L) 07/22/2018 HCT 35.1 (L) 07/22/2018 MCV 92.6 07/22/2018 PLATELET 192 07/22/2018 Lab Results Component Value Date CREATININE 0.88 07/22/2018 Discharge Conditions/Prognosis: Good Discharge to: Home Discharge Medications: Your Medications Continued medications with new dosing Dose Details * oxyCODONE 10 mg Tab Commonly known as: ROXICODONE Take 1 tablet by mouth every 4 hours. What changed: Another medication with the same name was added. Make sure you understand how and whento take each. 10 mg Quantity: 15 tablet Refills: 0 * oxyCODONE 5 mg Tab Commonly known as: ROXICODONE Take 1 tablet by mouth every 4 hours as needed for Pain. What changed: You were already taking a medication with the same name, and this prescription was added. Make sure you understand how and when to take each. 5 mg Quantity: 15 tablet Refills: 0 * This list has 2 medication(s) that are the same as other medications prescribed for you. Read thedirections carefully, and ask your doctor or other care provider to review them with you. Continued medications, unchanged Dose Details acetaminophen 500 mg Tab Commonly known as: TYLENOL Take 2 tablets by mouth every 6 hours as needed for Pain. 1000 mg Quantity: 30 tablet Refills: 1 aspirin 81 mg Chew Take 81 mg by mouth daily. 81 mg Quantity: 30 tablet Refills: 3 atorvastatin 80 mg Tab Commonly known as: LIPITOR Take 1 tablet by mouth every evening. 80 mg Quantity: 30 tablet Refills: 3 clopidogrel 75 mg Tab Commonly known as: PLAVIX Take 1 tablet by mouth daily. 75 mg Quantity: 90 tablet Refills: 3 FLUoxetine 40 mg Cap Commonly known as: PROzac Take 80 mg by mouth daily. 80 mg Refills: 0 furosemide 20 mg Tab Commonly known as: LASIX take 1 tablet by mouth once daily Refills: 0 gabapentin 400 mg Cap Commonly known as: NEURONTIN Take 400 mg by mouth 3 times daily. 400 mg Refills: 0 glipiZIDE 10 mg Tab Commonly known as: GLUCOTROL Take 20 mg by mouth daily. 20 mg Refills: 0 Insulin Syringe-Needle U-100 1 mL 31 gauge x 5/16 Syrg 1 Box [place] [facility] [place]; Combo Route) route 2 times daily. 1 Box Quantity: 100 Syringe Refills: 3 isosorbide mononitrate 60 mg Tablet sr Commonly known as: IMDUR take 1 tablet by mouth once daily Refills: 0 lisinopril 5 mg Tab Commonly known as: PRINIVIL;ZESTRIL Take 1 tablet by mouth daily. 5 mg Quantity: 90 tablet Refills: 11 metFORMIN 500 mg Tab Commonly known as: GLUCOPHAGE Take 1 tablet by mouth 2 times daily (with meals). 07/20: Do not take until instructed AFTER surgery 500 mg Quantity: 60 tablet Refills: 12 metoprolol 100 mg Tab Commonly known as: LOPRESSOR Take 1 tablet by mouth 2 times daily. 100 mg Quantity: 60 tablet Refills: 12 nicotine 21 mg/24 hr Pt24 Commonly known as: NICODERM CQ Place 1 patch onto the skin daily. 1 patch Quantity: 28 patch Refills: 0 omeprazole 40 mg Cpdr Commonly known as: PriLOSEC Take 40 mg by mouth daily. 40 mg Refills: 0 sertraline 50 mg Tab Commonly known as: ZOLOFT Take 50 mg by mouth daily. 50 mg Refills: 0 Updated Allergies/ADRs: Allergies Allergen Reactions ??? Effexor [Venlafaxine] Increased blood pressure Follow-up Recommendations for Providers: See Below Instructions Given to Patient at Discharge: Patient Instructions Patient Instructions You underwent stent placement to your superficial femoral artery to get more blood flow to your right leg. All of this went very well. Dr. Oneal will want you to be seen in approximately 2 weeks with ABIs and a duplex of your artery. All of this will be ordered and sent to you in the mail. If for some reason you don't receive this within a week or so please call our office as your followup is very important. Please note we will CANCEL the 07/25 appt listed below and instead schedule 2 week follow up. 1. For incisions, wash daily in shower. Run soap and water over incisions and pat dry. Please call immediately if you develop redness or drainage. 2. For heel fissure on right, please keep weight off right heel. Weight bear as little was possible.Check appearance daily with hand mirror and call if size appearance/worsens. 3. Resume metformin and glipizide on Tuesday morning. DO NOT take these two medications Sat as you just had IV contrast. Remember no driving 8 hours after narcotics. Take over the counter stool softeners while on narcotics. Wean oxycodone over 5-7 days now that blood flow to your right foot is improved. For any problems or questions please call [phone] JONATAN GriggsN, packing line operator Nurse Clinician For issues on weeknights after 5pm and weekends please call [phone] and ask for the Vascular Fellow carbon dioxide operator. General Instructions None Future Appointments and Orders Future Orders Complete By Expires REYMUNDO, legs, multiple levels [VAS8 Custom] 08/05/2018 (Approximate) 02/04/2019 Process Instructions: There is no in-house vascular laboratory immunologist available on weeknights (5pm-8am), weekends, or holidays. IF THIS IS A REQUEST FOR AN EMERGENT STUDY DURING THOSE HOURS, please have the senior provider responsible for the patient page the Vascular Surgery Fellow/Senior Resident carbon dioxide operator to discuss options. Scheduling Instructions: Questions: Indication for study/signs & symptoms: sp R SFA stent Question to be answered: ? improvement in REYMUNDO At which [facility] location will this be performed?: [place] Arterial Duplex Leg, Unil [VAS32 Custom] 08/05/2018 (Approximate) 02/04/2019 Process Instructions: There is no in-house vascular laboratory immunologist available on weeknights (5pm-8am), weekends, or holidays. IF THIS IS A REQUEST FOR AN EMERGENT STUDY DURING THOSE HOURS, please have the senior provider responsible for the patient page the Vascular Surgery Fellow/Senior Resident carbon dioxide operator to discuss options. Scheduling Instructions: Questions: Laterality: Right Lower limb right segments: Common Femoral Superficial Femoral Is there a stent?: Yes Stent Location: proximal SFA Indication for study/signs & symptoms: sp proximal SFA stent, check patency Question to be answered: check GEAR SHAPER and SFA patency now sp right SFA stent Laterality: Right Is there a RIGHT LOWER EXTREMITY graft?: No At which [facility] location will this be performed?: [place] Discharge References/Attachments: Discharge References/Attachments None Electronically Signed By: Meliton Rodriguez MD 07/22/2018 documented in this encounter Discharge Instructions Patient InstructionsHeavenly Tran MD - 07/22/2018 11:53 AM EDT Patient Instructions You underwent stent placement to your superficial femoral artery to get more blood flow to your right leg. All of this went very well. Dr. Oneal will want you to be seen in approximately 2 weeks with ABIs and a duplex of your artery. All of this will be ordered and sent to you in the mail. If for some reason you don't receive this within a week or so please call our office as your followup is very important. Please note we will CANCEL the 07/25 appt listed below and instead schedule 2 week follow up. 1. For incisions, wash daily in shower. Run soap and water over incisions and pat dry. Please call immediately if you develop redness or drainage. 2. For heel fissure on right, please keep weight off right heel. Weight bear as little was possible.Check appearance daily with hand mirror and call if size appearance/worsens. 3. Resume metformin and glipizide on Tuesday morning. DO NOT take these two medications Sat as you just had IV contrast. Remember no driving 8 hours after narcotics. Take over the counter stool softeners while on narcotics. Wean oxycodone over 5-7 days now that blood flow to your right foot is improved. For any problems or questions please call [phone] KARI Griggs, packing line operator Nurse Clinician For issues on weeknights after 5pm and weekends please call [phone] and ask for the Vascular Fellow carbon dioxide operator. documented in this encounter Medications at Time of Discharge Medication Sig Dispensed Refills Start Date End Date sertraline (ZOLOFT) 50 Take 50 mg by [...] mg Lozenge as needed for Smoking cessation. oxyCODONE (ROXICODONE) Take 1 tablet by 15 tablet 0 07/22/ 019 08/14/2018 5 mg Tablet mouth every 4 hours as needed for Pain. metFORMIN (GLUCOPHAGE) Take 1 tablet by 60 tablet 12 019 07/25/2019 500 mg Tablet mouth 2 times daily (with meals). 07/20: Do not take until instructed AFTER surgery clopidogrel (PLAVIX) 75 Take 1 tablet by 90 tablet 3 201807/25/2019 mg Tablet mouth daily. oxyCODONE (ROXICODONE) Take 1 tablet by 15 tablet 0 019 08/14/2018 10 mg Tablet mouth every 4 hours. isosorbide mononitrate take 1 tablet by 0 [...] daily. Release(E.C.) documented as of this encounter Progress Notes Yaa Ortega RN - 07/22/2018 12:44 PM EDT Pt a/ox4 pacing in room awaiting d/c. D/C instructions gone over in depth with pt. Pt verbalizes understanding, all questions answered. Pt leaves pushed in WC by SLEEPING CAR PORTER w/ Oxycodone script in hand. Pt in no apparent distress, plans to drive self home. Left floor @ 1245 Shaheed Yadav MD - 07/21/2018 9:32 PM EDT Vascular Surgery Post Op Check Bertin Lorenzo is a 57 y.o. male s/p Right SFA stent Subjective: Mr. Lorenzo is doing well post op. No nausea/vomiting, chest pain, SOB, pain well controlled, offers no complaints Objective: Temp: [36.6 ??C (97.9 ??F)-36.8 ??C (98.2 ??F)] Heart Rate: [72-92] Resp: [11-22] BP: (118-170)/(65-85) SpO2: [95 %-100 %] Heart Rate from SpO2: [72 bpm-91 bpm] I/O last 3 completed shifts: In: 1200 [I.V.:1200] Out: 450 [Urine:400; Blood:50] I/O this shift: In: 480 [P.O.:480] Out: 140 [Urine:140] Physical Exam General: resting comfortably, no acute distress HEENT: normocephalic, atraumatic CVS: regular rate Pulm: non-labored breathing on 2L NC Abd: soft, non tender, non distended Neuro: no focal deficits, moving all extremities RLE Groin dressing c/d/i, no evidence of hematoma; Dressing to foot/toes c/d/i Able to wiggle toes and plantar/dorsiflex at ankle Sensation intact to light touch dorsum of foot (baseline diminished sensation toes/distal aspects offoot) DP and PT doppler signal present Skin warm and well perfused Assessment/Plan: Bertin Lorenzo is a 57 y.o. male s/p Right SFA currently in stable conditionand recovering well. The incision is c/d/i without signs of hematoma. - pain well controlled - hemodynamically stable - UOP adequate Shaheed Yadav MD Heidi Melvin RN - 07/21/2018 3:25 PM EDT Images from the original note were not included. Patient Name: Bertin Lorenzo Patient Age: 57 y.o. Birthdate: 1960 Admit date: 07/21/2018 Attending Physician: Jhonny Oneal MD Skin: Heidi Melvin RN - 07/21/2018 2:53 PM EDT Images from the original note were not included. Patient Name: Bertin Lorenzo Patient Age: 57 y.o. Birthdate: 1960 Admit date: 07/21/2018 Attending Physician: Jhonny Oneal MD Skin: documented in this encounter H&P Notes Heavenly Tran MD - 07/21/2018 3:29 PM EDT Vascular Surgery History and Physical ?? HPI: Bertin Lorenzo??is a 57 y.o.??male??with history of DM, CAD s/p CABG 2016, MELONIE not on nightly CPAP, diverticulitis s/p partial bowel resection??who has been followed in the vascular surgeryclinic for aortoiliac occlusive disease. ??He was recently admitted for rest pain and heel wound 06/27/18 - 06/30/18 where CTA demonstrated occlusion of the right external iliac artery and severe GEAR SHAPER stenosis. ??For this he underwent right iliofemral endarterectomy with patch graft and stenting. Pt continues to have severe rest pain on right and progression of heel ulcer. Pt had angiogram on 07/19 that revealed SFA occlusion. Lesion could not be crossed with wire. Therefore pt presents today for SFA cutdown and attempt at crossing from below. No recent chest pain or SOB. 2 cm heel crack on right. ?? Review of Systems: A full review encompassing at least 10 organ systems including general, neuro, pulm, cardiac, GI, , MSK, Endo, and psych was negative other than that listed in the HPI. ?? Past Medical History: CAD s/p CABG 2016 DM HTN HLD MELONIE Diverticulitis s/p partial bowel resection CLI ?? Past Surgical History: Past??Surgical??History Past Surgical History: Procedure Laterality Date ??? PRO CABG, ARTERIAL, TWO N/A 07/12/2016 ?? @CABG, USING 2 CORONARY ARTERIAL GRAFTS (WRVU 39.88) performed by Valentino Arredondo MD at [facility] MAIN OR ??? PRO CABG, ARTERY-VEIN, TWO N/A 07/12/2016 ?? @CABG, TWO VENOUS GRAFTS & ARTERIAL GRAFT (WRVU 7.93) performed by Valentino Arredondo MD at [facility] MA[facility] OR ??? PRO ENDOSCOPY W/VIDEO-ASST VEIN HARVEST, CABG Right 07/12/2016 ?? ENDOSCOPIC HARVEST VEIN(S) FOR CABG (WRVU 0.31) performed by Valentino Arredondo MD at [facility] MA[facility] OR ? ? PRO REVSC OPEN/PERCUTANEOUS ILIAC ART W STNT PLMT&ANGIO WENDI VSL UNILAT Right 06/28/2018 ?? REVSC OPN\PRQ ILIAC ART W\STNT PLMT & ANGIOP SAME VSL (WRVU 10) performed by Jhonny Oneal MD at [facility] MAIN OR ??? PRO THROMBOENDARTECTMY ILIOFEMORAL Right 06/28/2018 ?? @ENDARTERECTOMY, ILIOFEMORAL W OR W/O PATCH GRAFT (WRVU 19.86) performed by Jhonny Oneal MD at [facility] MAIN OR ? Functional Status/Social Hx: Lives at home Current smoker Occasional alcohol Denies illicit drugs ?? Family Hx: Negative for Thrombosis, Bleeding Disorders ?? Medications: No current facility-administered medications on file prior to encounter. ?? Current Outpatient Medications on File Prior to Encounter Medication Sig Dispense Refill ??? oxyCODONE (ROXICODONE) 10 mg Tablet Take 1 tablet by mouth every 4 hours. 15 tablet 0 ??? metFORMIN (GLUCOPHAGE) 500 mg Tablet Take 1 tablet by mouth 2 times daily (with meals). 60 tablet 12 ??? oxyCODONE (ROXICODONE) 10 mg Tablet Take 1 tablet by mouth every 8 hours as needed (Pain). 40 tablet 0 ??? isosorbide mononitrate (IMDUR) 60 mg Tablet Sustained Release 24 hr take 1 tablet by mouth once daily ?? 0 ??? furosemide (LASIX) 20 mg Tablet take 1 tablet by mouth once daily ?? 0 ??? lisinopril (PRINIVIL;ZESTRIL) 5 mg Tablet [...] gauge x 5/16 Syringe 1 Box by [facility] [place]; Combo Route) route 2 times daily. 100 Syringe 3 ??? buPROPion (WELLBUTRIN SR OR ZYBAN) 150 mg Tablet Sustained Release Take 150 mg by mouth 2 times daily. ? gabapentin (NEURONTIN) 400 mg Capsule Take 400 mg by mouth 3 times daily. ? glipiZIDE (GLUCOTROL) 10 mg Tablet Take 20 mg by mouth daily. ? omeprazole (PRILOSEC) 40 mg Capsule, Delayed Release(E.C.) Take 40 mg by mouth daily. ? FLUoxetine (PROZAC) 40 mg Capsule Take 80 mg by mouth daily. ? Allergies: Effexor [venlafaxine] ?? Physical Exam: Most Recent Vitals: 07/21/18 1433 BP: 118/65 Pulse: 89 Resp: 18 Temp: 36.6 ??C (97.9 ??F) SpO2: 97% General: NAD, resting comfortably HEENT: NC/AT, PERRL CVS: Regular rate, no murmurs rubs or gallops Pulm: Clear bilaterally Abd: soft, non tender, non distended, +BS Ext: RLE: Area of skin separation and mild erythema R groin 2 cm heel crack on right Right AT signal Neuro: Grossly nonfocal, moving all extremities. ?? Labs: No results for input(s): WBC, HGB, HCT, PLATELET in the last 72 hours. ?? No results for input(s): NA, K, CL, CO2, BUN, CREATININE, PHOS, CALCIUM in the last 72 hours. ? Assessment and Plan: 57M with the above noted pmh, recently s/p R fem endart/iliac stent for CLI (06/27/18) with persistent rest pain and heel ulcer. Angio 2 days ago showed SFA occlusion at origin, unable to cross antegrade in IR. Plan for SFA cutdown in thigh and attempt to cross retrograde and treat with stent. Heavenly Tran MD/SILVA, PGY-5 Section of Vascular Surgery, Pager [phone] documented in this encounter Miscellaneous Notes Plan of Care - Bri Mackay RN - 07/22/2018 5:16 AM EDT Problem: Patient Care Overview Goal: Plan of Care Review Outcome: Ongoing (Interventions Implemented as Appropriate) 07/22/18 0501 Coping/Psychosocial Plan Of Care Reviewed With patient Plan of Care Review Progress progress toward functional goals as expected OUTCOME EVALUATION NOTE: OUTCOME SUMMARY: Tobin is patent and draining adequate amount of clear yellow urine. Pain level 5-7/10. Scheduled oxycodone 5mg every 4 hours effective. Gauze dressing to right foot CDI. Right thigh dressing remains with 2 spots of dried serosanguineous drainage. R groin dressing CDI. Bp's below parameter's so labetalol not needed. FSBS 290. Insulin coverage given per MD order. See Jun. Recheck was 289. Will be rechecked at scheduled am time per MD. Tolerating carb controlled diet. Will continue to monitor. PLAN MOVING FORWARD: Discharge to home INDIVIDUALIZED FALL PREVENTION INTERVENTIONS: Patient-specific fall risk factors per assessment: [current deficits]: Narcotics, mobility aid at home, needs assistance getting out of bed or chair, pain with movement/ambulation Assistance [level of assistance required for transfers and ambulation]: 1 person assist, stand by with cane, non-skid shoes/slippers Supervision [direct monitoring required during toileting and ADLs]: Eyes on, hands on Surveillance [continuous indirect monitoring]: Purposeful rounding, call le in reach, direct observation Patient-specific fall prevention interventions for sensory deficits provided, if applicable: Lighting adjusted for task/safety, glasses CPG GOAL OUTCOME EVALUATION: Goal: Fall Prevention-Safe Patient Handling Outcome: Ongoing (Interventions Implemented as Appropriate) 07/21/18201407/21/18 2210 Oneal Fall Risk History of Falling -- 0 Secondary Diagnosis -- 15 Ambulatory Aids -- 15 Intravenous Therapy/Heparin/Saline Lock -- 20 Gait/Transferring -- 10 Mental Status -- 0 Score -- 60 OTHER Oneal Fall Risk -- High Restraint Interventions Safety Promotion/Fall Prevention -- activity supervised;fall prevention program maintained;safety round/check completed Positioning Body Position supine, head elevated -- Activity Activity Type -- activity adjusted per tolerance Activity Assistance Provided -- assistance, 1 person Assistive Device Utilized oxygen -- Goal: Infection Control Outcome: Ongoing (Interventions Implemented as Appropriate) 07/21/18 2210 Safety Interventions Isolation Precautions standard precautions maintained Infection Prevention rest/sleep promoted;single patient room provided;environmental surveillance performed Coping Strategies Supportive Measures active listening utilized;verbalization of feelings encouraged Goal: Interdisciplinary Rounds/Family Conf Outcome: Ongoing (Interventions Implemented as Appropriate) 07/22/18 0501 Interdisciplinary Rounds/Family Conf Participants nursing;patient Op Note - Heavenly Tran MD - 07/21/2018 6:59 PM EDT [facility] [place] Patient Name: Bertin Lorenzo : [id number] MR#: [id number] Case Date: 07/21/2018 Surgeon: Surgeon(s) and Role: * Jhonny Oneal MD - Primary * Heavenly Tran MD - Resident Preoperative diagnosis: Right leg critical limb ischemia (severe rest pain) CAD s/p CABG 2017 DM HTN HLD MELONIE Diverticulitis s/p partial bowel resection CLI Postoperative diagnosis: Right leg critical limb ischemia (severe rest pain) sp R SFA stent CAD s/p CABG 2017 DM HTN HLD MELONIE Diverticulitis s/p partial bowel resection CLI Procedure: 1. Open right superficial femoral artery cutdown 2. Right lower extremity angiogram 3. Right superficial femoral artery stents (Viabahn 5mm x 2.5 cm stent graft at SFA origin, Epic bare metal self expanding stent 6 x 60 overlapping viabahn extending into proximal SFA, post dilated with 5 x 40 balloon) Implant Name Type Inv. Item Serial No. Medical Insurance Coder Lot No. LRB No. Used Action STENT,ENDP,HEP,7FR,5X2.5X120 ([id number]) (AutoReq) - [id number] IMPLANTS STENT,ENDP,HEP,7FR,5X2.5X120 ([id number]) (AutoReq) [id number] [employer] Right 1 Implanted STENT,EPIC,SLFX,6X60MM,120CM ([id number]) (AutoReq) - [id number] IMPLANTS STENT,EPIC,SLFX,6X60MM,120CM ([id number]) (AutoReq) [employer] [id number] Right 1 Implanted Findings: Open SFA cutdown in mid thigh No flow in SFA on initial puncture Initial angiogram showed SFA occlusion at origin - likely dissection from 06/28/18 femoral endarterectomy SFA occlusion was crossed with stiff glide wire and ballooned with 5 x 40 balloon Angiogram then showed patent lumen but with residual area of debris/possible dissection for initial ~4 cm of SFA Therefore origin of SFA was treated with viabahn 5mm x 2.5 cm stent graft, and proximal SFA was treated with 6mm x 6 cm Epic bare metal stent overlapping about 1 cm with the viabahn On completion SFA was widely patent with no area of visible stenosis or dissection Strong DP PT signals at case end (much improved from pre op) Anesthesia: General Estimated Blood Loss: 50 mL IVF: 1200 mL UOP: 400 mL Heparin: 8000U Protamine: 20 mg Fluoro: 4.2 min Contrast: 42.5 mL Specimens removed during surgery: None Drains: none Surgical Closure: Primary Closure - skin incision is completely closed without any wires, kanwal, drains or other devices Disposition: awakened from anesthesia, extubated and taken to the recovery room in a stable condition, having suffered no apparent untoward event. Condition: doing well without problems (Please see the Surgical Encounter Summary for any Implant and Specimen details pertinent to this patient.) HPI/Surgical Indications: Bertin Lorenzo??is a 57 y.o.??male??with history of DM, CAD s/p CABG 2017, MELONIE not on nightlyCPAP, diverticulitis s/p partial bowel resection??who has been followed in the vascular surgery clinic for aortoiliac occlusive disease.?He was recently admitted for??rest pain and heel wound 06/27/18- 06/30/18 where??CTA demonstrated??occlusion of the right external iliac artery and severe GEAR SHAPER stenosis. ??For this he underwent right iliofemral endarterectomy with patch graft and stenting. Pt continues to have severe rest pain on right and progression of heel ulcer. Pt had angiogram on 07/19 that revealed SFA occlusion. Lesion could not be crossed with wire. Therefore pt presents today for SFA cutdown and attempt at crossing from below. ?? Procedure Description: After informed consent was obtained the patient was brought back to the operating room and placed supine on the OR table. General anesthesia was induced and the patient was intubated with an ETT. Additional support lines (tobin, arterial line, PIVs) were placed. Preoperative antibiotics were given (ancef). A timeout was performed. Attention was then turned to the patient's right leg. A 10 cm incisionwas made at medial thigh with a number 10 blade. This was deepened through subcutaneous tissue with cautery. Fatty tissue between sartorius muscles and rectus was divided. Within this tissue the neurovascular bundle was encountered. The superficial femoral artery was encircled with vessel loops. The SFA was notably soft. SFA was punctured with a 18G needle, micro wire, micro sheath. Long stiff glide was used to navigate and cross the SFA origin. Sheath was exchanged for a 7F 25 cm sheath. Right lower extremity angiogram was performed through sheath retrograde showing SFA origin occlusion. 5 x 40 balloon was advanced to proximal SFA and inflated to 18 DUSTY. Balloon was then inflated a few cm down. Following angioplasty repeat angiogram was performed showing patent SFA lumen but residual proximal disease (likely old dissection flap). Therefore viabahn 5mm x 2.5 cm stent graft was deployed at SFA origin following by Epic 6mm x 6 cm bare metal stent in proximal SFA overlapping viabahn with 1 cm. Repe at angiogram showed nicely patent SFA flow lumen. Sheath was removed and SFA clamped above and below. Arteriotomy was closed with 3 6-0 prolenes. Hemostasis was achieved with thrombin gel and surgicel.Fascia was closed with 2-0 vicryl. Subcutaneous tissue was closed with 3-0 vicryl and skin closed with 4-0 monocryl and steri strips. Pt was extubated and taken to PACU in stable condition. Instrument couts were correct. Dr Oneal was present for entire case. Infection Bundle used? NA pre op ancef Associated attestation - Jhonny Oneal MD - 07/28/2018 5:49 PM EDT Attestation: Case Date: 07/21/2018 Indication: RLE CLI Procedure: R SFA cutdown, stent placement (5x25 Viabahn, 6x60 SE p 5) I was present and I participated during the entire procedure (does not need to include opening and closing). Jhonny Oneal MD 07/28/2018 documented in this encounter Plan of Treatment Scheduled Orders Name Type Priority Associated Diagnoses Order S chedule IR OR VASC Imaging Storage Routine Once PRN (fo r Radiant Aniogram Image Only use) for 1 Storage Only Occurrences sta rting 07/25/2018 unti l 07/25/2018, 1 completed documented as of this encounter Procedures Procedure Name Priority Date/Time Associated Comments Diagnosis IMPLANTABLE DEVICES 07/24/2018 12:00 Resu lts for this SCAN AM EDT procedure are i n the results section. POCT GLUCOSE Routine 07/22/2018 11:39 Results for this AM EDT procedure are i n the results section. HEMOGRAM Routine 07/22/2018 10:34 Results for this AM EDT procedure are i n the results section. DIFFERENTIAL, Routine 07/22/2018 10:34 Results fo r this AUTOMATED AM EDT procedure are i n the results section. CBC (WITH DIFF) Routine 07/22/2018 10:34 AM EDT BASIC METABOLIC PANEL Routine 07/22/2018 10:34 Re sults for this (NON-FASTING) AM EDT procedure are in the results section. POCT GLUCOSE Routine 07/22/2018 7:49 AM Results f or this EDT procedure are i n the results section. POCT GLUCOSE Routine 07/22/2018 2:24 AM Results f or this EDT procedure are i n the results section. POCT GLUCOSE Routine 07/21/2018 9:33 PM Results f or this EDT procedure are i n the results section. POCT GLUCOSE Routine 07/21/2018 6:36 PM Results f or this EDT procedure are i n the results section. IR OR VASC ANGIOGRAM Routine 07/21/2018 6:23 PM R esults for this IMAGE STORAGE ONLY EDT procedure are in the results section. POCT GLUCOSE Routine 07/21/2018 6:12 PM Results f or this EDT procedure are i n the results section. POCT GLUCOSE Routine 07/21/2018 5:11 PM Results f or this EDT procedure are i n the results section. BLOOD GAS 2 ARTERIAL Routine 07/21/2018 4:34 PM R esults for this EDT procedure are i n the results section. @EXPLORATION, W/WO Yes 07/21/2018 4:10 PM RLE CLI LYSIS, FEMORAL ARTERY EDT W\O SURGICAL REPAIR (WRVU 7.72) INTRODUCE CATHETER IN Yes 07/21/2018 4:10 PM RLE CLI UPPER OR LOWER EDT EXTREMITY ARTERY (EG ILIAC OR FEMORAL) (WRVU 2.01) POCT GLUCOSE Routine 07/21/2018 2:40 PM Results f or this EDT procedure are i n the results section. documented in this encounter Results Arterial Duplex Leg, Unil (08/11/2018 12:47 PM EDT) Component Value Ref Test Analysis Performed At [facility] Range Method Time Signature VB Text Department: Vascular Surgery Lab VASCUBASE Report Patient: [id number] (BERTIN LORENZO) CPT: 62601 ICD10: I74.3;I99.8 Referring Physician: JHONNY ONEAL MD [...] to pr e-op exam done 07/20/2018. Patent [place] femoral artery with elevated velocities (PSV-207 cm/s) [...] Address City/State/ZIP Code Phon e Number VASCUBASE REYMUNDO, legs, multiple levels (08/11/2018 12:47 PM EDT) Component Value Ref Test Analysis Performed At [facility] gist Range Method Time Signature VB Text Department: Vascular Surgery Lab VASCUBASE Report Patient: [id number] (BERTIN LORENZO) CPT: 36208 ICD10: I73.9;I99.8 Referring Physician: JHONNY ONEAL MD ?? Phone: Indications: s/p Right SFA stent now for f/u exam c/o right foot pain; ? patency Diabetes mellitus: Yes ICD10 Diagnosis Code: I73.9, I99.8 Findings: Right ?Pressure (mm Hg) ?? REYMUNDO ??Waveform ?TBI ?? Brachial Artery ?118 ? Dorsalis Pedis (Ankle) Arter y ?114 ? 0.91 ??Bi-Triphasic ? Posterior Tibial (Ankle) Art precious ??103 ? 0.82 ??Kay-Biphasic ? [place] Toe ?57 ? 0.46 ?? Left ? Pressure (mm Hg) ?? REYMUNDO ??Waveform ?TBI ?? Brachial Artery ?125 ? Dorsalis Pedis (Ankle) Arter y ?78 ?0.62 ??Kay- Biphasic ? Posterior Tibial (Ankle) Art precious ??80 ?0.64 ??Kay- Biphasic ? Great Toe ?53 ? 0.42 [...] Address City/State/ZIP Code Phon e Number VASCUBASE SCAN DOC: IMPLANTABLE DEVICES (07/24/2018 12:00 AM EDT) Narrative 07/24/2018 12:00 AM EDT This result has an attachment that is no t available. Ordered by an unspecified provider. Scanning Provider MEDIA MGR SCAN EXT ORDR/RSLT POCT Glucose (07/22/2018 11:39 AM EDT) P athologist Signature POC Glucose 159 65 - 199 JW AFIA mg/dL [facility] Comment: Supplemental ranges: <140 mg/dL before meals <180 mg/dL all other times of the day Specimen Anatomical Collection Method Collection Time Receive d Time (Source) Location / / Volume Laterality Blood specimen 07/22/2018 11:39 9 (specimen) AM EDT 11:39 AM EDT Jhonny Oneal MD POINT OF CARE TEST ORDERABLE S Performing Organization Address City/State/[place] [address] (ABNORMAL) Differential, Automated (07/22/2018 10:34 AM EDT) [facility] Method Time Signature Neutrophils % 68.8 % [facility] Neutr Abs (ANC) 8.89 (H) 1.70 - [facility] 6.10 [facility] x10(3)/[facility] LABORATORY Lymphocytes % 23.6 % [facility] Lymphocytes Abs 3.0 0.9 - 3.[address] [facility] x10(3)/[facility] LABORATORY Monocytes % 6.6 % [facility] Monocyte Abs 0.8 0.3 - 0.[address] [facility] x10(3)/[facility] LABORATORY Eosinophils % 0.2 % [facility] Eosinophils Abs 0.0 0.0 - 0.[address] [facility] x10(3)/[facility] LABORATORY Basophils % 0.2 % [facility] Basophils Abs 0.0 0.0 - 0.[address] [facility] x10(3)/[facility] LABORATORY Immature Gran % 0.60 % [facility] Comment: Immature granulocytes(IG's)percentage an d absolute count will include metamyelocytes, myelocytes, and promyelo cytes. Blood smears from CBCs yielding IG's will be scanned manually for concor dance. If this scan disagrees with the automated IG or if promyelocytes are not ed, a manual differential will be performed. Madhuri Gran Abs 0.08 (H) 0.00 - 0.04 x10(3)/[facility] LABORATORY Specimen Anatomical Collection Method Collection Time Receive d Time (Source) Location / / Volume Laterality Blood specimen 07/22/2018 10:34 9 (specimen) AM EDT 10:42 AM EDT Resulting Agency Comment Spec In Lab Heavenly Tran MD HEMATOLOGY ORDERABLES Performing Organization Address City/State/[place] [address] (ABNORMAL) Hemogram (07/22/2018 10:34 AM EDT) Analysis Performed At Patho logist Time Signature WBC 12.9 (H) 4.0 - 9.5 [facility] x10(3)/[facility] LABORATORY RBC 3.79 (L) 4.58 - JW AFIA 5.54 [facility] x10(6)/[facility] LABORATORY Hemoglobin 11.1 (L) 13.7 - [facility] 16.5 gm/dL [facility] Hematocrit 35.1 (L) 40.5 - [facility] 48.5 % [facility] MCV 92.6 82.9 - [facility] 93.1 [facility] LABORATORY MCH 29.3 27.5 - [facility] 32.1 pg [facility] MCHC 31.6 (L) 32.0 - [facility] 35.7 gm/dL [facility] Platelets 192 145 - [address] [facility] x10(3)/[facility] LABORATORY RDWSD 49.1 (H) 36.0 - [facility] 45.0 [facility] LABORATORY RDWCV 14.3 (H) 11.4 - [facility] 13.8 % [facility] MPV 11.8 7.6 - 12.9 [facility] LABORATORY nRBC % Auto 0.0 % [facility] nRBC Abs Auto 0.000 0.000 - [facility] AFIA 0.000 [facility] x10(3)/[facility] LABORATORY Specimen Anatomical Collection Method Collection Time Receive d Time (Source) Location / / Volume Laterality Blood specimen 07/22/2018 10:34 9 (specimen) AM EDT 10:42 AM EDT Resulting Agency Comment Spec In Lab Heavenly Tran MD HEMATOLOGY ORDERABLES Performing Organization Address City/[facility]/ZIP [place] [address] (ABNORMAL) Basic Metabolic Panel (non-fasting) (07/22/2018 10:34 AM EDT) P athologist Signature Glucose Lvl 172 65 - [address] [facility] mg/dL [facility] Comment: Diabetes: >=200 mg/dL plus symp toms BUN 14 10 - 20 mg/dL [facility] Creatinine 0.88 0.80 - 1.50 mg/dL [facility] Sodium 139 135 - 145 mmol/L [facility] Potassium 4.2 3.5 - 5.0 mmol/L [facility] Comment: Please note: ??Patients with WBC >100,00 0 may have falsely elevated Potassium levels. ??For accurate Potassium quantif ication in these patients send serum separator tube (gold top) for subsequent determinations. ??Contact the Clinical Chemistry Laboratory if there are any qu estions. Chloride 102 98 - 107 mmol/L [facility] CO2 21 (L) 22 - 31 mmol/L [facility] Anion Gap 16 (H) 5 - 15 mmol/L [facility] Calcium 9.2 8.5 - 10.5 mg/dL [facility] Estimated GFR 95 >=60 mL/min/1.73 m?? [facility] Comment: The eGFR was calculated using the CKD-EP I equation. As with all creatinine based estimates of kidney function, eGFR values calculated with the CKD-EPI equation are not accurate in patients wi th acute kidney failure, extremes of body mass or the acutely ill. http://[employer]/[facility] eGFR 111 >=60 mL/min/1.73 m?? [facility] Comment: The eGFR was calculated using the CKD-EP I equation. As with all creatinine based estimates of kidney function, eGFR values calculated with the CKD-EPI equation are not accurate in patients wi th acute kidney failure, extremes of body mass or the acutely ill. http://[employer]/[facility] Specimen Anatomical Collection Method Collection Time Receive d Time (Source) Location / / Volume Laterality Blood specimen 07/22/2018 10:34 9 (specimen) AM EDT 10:42 AM EDT Resulting Agency Comment Spec In Lab Jhonny Oneal MD CHEMISTRY ORDERABLES Performing Organization Address City/State/Z[place] [address] POCT Glucose (07/22/2018 7:49 AM EDT) athologist Signature POC Glucose 179 65 - 199 [facility] AFIA mg/dL [facility] Comment: Supplemental ranges: <140 mg/dL before meals <180 mg/dL all other times of the day Specimen Anatomical Collection Method Collection Time Receive d Time (Source) Location / / Volume Laterality Blood specimen 07/22/2018 7:49 AM 019 7:49 (specimen) EDT AM EDT Jhonny Oneal MD POINT OF CARE TEST ORDERABLE S Performing Organization Address City/State/Z[place] [address] (ABNORMAL) POCT Glucose (07/22/2018 2:24 AM EDT) athologist Signature POC Glucose 282 (H) 65 - 199 JW AFIA mg/dL [facility] Comment: Supplemental ranges: <140 mg/dL before meals <180 mg/dL all other times of the day Specimen Anatomical Collection Method Collection Time Receive d Time (Source) Location / / Volume Laterality Blood specimen 07/22/2018 2:24 AM 019 2:24 (specimen) EDT AM EDT Jhonny Oneal MD POINT OF CARE TEST ORDERABLE S Performing Organization Address City/State/Z[place] [address] (ABNORMAL) POCT Glucose (07/21/2018 9:33 PM EDT) athologist Signature POC Glucose 290 (H) 65 - 199 JW AFIA mg/dL [facility] Comment: Supplemental ranges: <140 mg/dL before meals <180 mg/dL all other times of the day Specimen Anatomical Collection Method Collection Time Receive d Time (Source) Location / / Volume Laterality Blood specimen 07/21/2018 9:33 PM 019 9:33 (specimen) EDT PM EDT Jhonny Oneal MD POINT OF CARE TEST ORDERABLE S Performing Organization Address City/State/ZIP Code Phon e Number [address] POCT Glucose (07/21/2018 6:36 PM EDT) athologist Signature POC Glucose 134 65 - 199 [facility] mg/dL [facility] Comment: Supplemental ranges: <140 mg/dL before meals <180 mg/dL all other times of the day Specimen Anatomical Collection Method Collection Time Receive d Time (Source) Location / / Volume Laterality Blood specimen 07/21/2018 6:36 PM 019 6:36 (specimen) EDT PM EDT Jhonny Oneal MD POINT OF CARE TEST ORDERABLE S Performing Organization Address City/[facility]/ZIP Code Phon e Number [address] IR OR VASC Aniogram Image Storage Only (07/21/2018 6:23 PM EDT) Specimen (Source) Anatomical Location Collection Method / Collectio n Time Received Time / Laterality Volume Narrative DH RAD - 07/25/2018 10:04 AM EDT This exam is auto-finalizing. It's purpo se is for storage only. Jhonny Oneal MD IMG FILM LIBRARY ORDERABLES Performing Organization Address City/State/ZIP Code Phon e Number RAD [place], [place] POCT Glucose (07/21/2018 6:12 PM EDT) athologist Signature POC Glucose 134 65 - 199 [facility] mg/dL [facility] Comment: Supplemental ranges: <140 mg/dL before meals <180 mg/dL all other times of the day Specimen Anatomical Collection Method Collection Time Receive d Time (Source) Location / / Volume Laterality Blood specimen 07/21/2018 6:12 PM 019 6:12 (specimen) EDT PM EDT Jhonny Oneal MD POINT OF CARE TEST ORDERABLE S Performing Organization Address City/State/ZIP [place] [address] POCT Glucose (07/21/2018 5:11 PM EDT) P athologist Signature POC Glucose 167 65 - [address] [facility] mg/dL [facility] Comment: Supplemental ranges: <140 mg/dL before meals <180 mg/dL all other times of the day Specimen Anatomical Collection Method Collection Time Receive d Time (Source) Location / / Volume Laterality Blood specimen 07/21/2018 5:11 PM 019 5:11 (specimen) EDT PM EDT Jhonny Oneal MD POINT OF CARE TEST ORDERABLE S Performing Organization Address City/State/[place] [address] (ABNORMAL) BLOOD GAS 2 ARTERIAL (07/21/2018 4:34 PM EDT) Analysis Performed At Patho logist Time Signature pH Art 7.39 7.35 - [facility] 7.45 [facility] pCO2 Art 41 35 - 45 [facility] LABORATORY pO2 Art 142 (H) 85 - 104 [facility] LABORATORY HCO3 Art 24.4 20.0 - [facility] 26.0 [facility] mmol/L [facility] LAB[facility]ORY BE Art -0.5 -3.0 - 3.[address] [facility] mmol/L [facility] Hgb Blood Gas 12.3 (L) 13.7 - [facility] 16.5 gm/dL [facility] O2HB Art 93.2 (L) 94.0 - [facility] 97.0 % [facility] COHB Art 5.1 % [facility] Comment: Nonsmokers: 0.5-1.5% COHB Smokers: Variable, but usually less than 10% Toxic: 20-30% COHB Lethal: Greater than 60% COHB METHB Art 0.3 <=1.5 % [facility] Na Whole Blood 138 135 - 145 mmol/L [facility] K Whole Blood 4.0 3.5 - 5.0 mmol/L [facility] Comment: Please note: Patients with WBC >100,000 may have falsely elevated Potassium levels. Contact the Clinical Chemistry L aboratory if there are any questions. ICa Whole Blood 1.16 1.15 - 1.33 mmol/L [facility] Comment: Note: ??Total bilirubin higher than 20 m g/dL may lead to falsely low ionized calcium. CL Whole Blood 106 98 - 107 mmol/L [facility] Gluc Whole Bld 199 65 - 199 mg/dL [facility] Comment: Diabetes: >=200 mg/dL plus symp toms. Lactate WB 1.8 0.5 - 2.2 mmol/L [facility] Specimen Anatomical Collection Method Collection Time Receive d Time (Source) Location / / Volume Laterality Blood specimen 07/21/2018 4:34 PM 019 4:34 (specimen) EDT PM EDT Jhonny Oneal MD CHEMISTRY ORDERABLES Performing Organization Address City/[facility]/ZIP [place] [address] (ABNORMAL) POCT Glucose (07/21/2018 2:40 PM EDT) P athologist Signature POC Glucose 260 (H) 65 - [address] [facility] mg/dL [facility] Comment: Supplemental ranges: <140 mg/dL before meals <180 mg/dL all other times of the day Specimen Anatomical Collection Method Collection Time Receive d Time (Source) Location / / Volume Laterality Blood specimen 07/21/2018 2:40 PM 019 2:40 (specimen) EDT PM EDT Jhonny Oneal MD POINT OF CARE TEST ORDERABLE S Performing Organization Address City/[facility]/ZIP [place] [address] documented in this encounter Visit Diagnoses Not on filedocumented in this encounter Administered Medications Inactive Administered Medications - up to 3 most recent administrations Medication Order MAR Action Action Date Dose Rate Site acetaminophen (TYLENOL) tablet Given 07/22/2018 12:20 PM EDT 1,0 00 mg 1,000 mg 1,000 mg, Oral, 4 TIMES DAILY, First dose on Tue07/21/18 at 2100, Until Discontinued, Maximum dose of acetaminophen is 4000 mg from all sources in 24 hours., Routine Given 07/22/2018 8:12 AM EDT 1,000 mg Given 07/21/2018 10:10 PM EDT 1,000 mg aspirin chewable tablet 81 mg Given 07/22/2018 8:12 AM EDT 81 mg 81 mg, Oral, DAILY, First dose on 07/22/18 at 0900, Until Discontinued, Routine clopidogrel (PLAVIX) tablet 75 mg Given 07/22/2018 8:12 AM EDT 75 mg 75 mg, Oral, DAILY, First dose on 07/22/18 at 0900, Until Discontinued, Routine dextrose 50% intravenous solution 25-50 mL 25-50 mL (12.5-25 g), Intravenous, EVERY 1 HOUR PRN, S tarting on Tue07/21/18 at 1913, Until Tue07/22/18 at 1448, Low blood sugar, F or BG 50-70 mg/dL: Oral treatment preferred:?? If able to drink, give 120 mL Juice or Regular (not diet) soda OR If NPO, give 15 gram glucose 40% oral gel massaged into buccal mucosa OR if unconscious or uncooperative, give 12.5 gram (25 mL) Dextrose 50% IV OR, if no IV access, give 1 mg Glucagon IM. For BG less than 50 mg/dL: Oral treatment preferred:?? If able to drink, give 240 mL Juice or Regular (not diet) soda OR If NPO, give 30 gram glucose 40% oral gel m assaged in buccal mucosa OR if unconscious or uncooperative, give 25 gram (50 mL) D extrose 50% IV OR, if no IV access, give 1 mg Glucagon IM. Recheck BG in 30 minutes. May repeat juice, gel, dextrose or glucagon once per episode. To avoid ex travasation, push Dextrose 50% SLOWLY (3 mL over 1 minute) in a patent, running IV, preferably a c entral line. For persistent hypoglycemia, consider longer -acting treatment for the duration of the active insulin., Routine fentaNYL (PF) 50mcg/mL injection Given 07/21/2018 3:44 PM EDT 50 mcg 50 mcg, Intravenous, EVERY 10 MIN PRN, 2 doses, Starting on Tue07/21/18 at 1531, Until Tue07/21/18 at 2037, Pain, If medication ordered subcutaneously, do not administer more than 2 mL as a single injection., Day of Surgery (Day of Procedure), Routine FLUoxetine (PROzac) capsule 80 mg Given 07/22/2018 8:13 AM EDT 80 mg 80 mg, Oral, DAILY, First dose on Tue07/22/18 at 0900, Until Discontinued, Routine gabapentin (NEURONTIN) capsule 400 mg Given 07/22/2018 8:13 AM EDT 400 mg 400 mg, Oral, 3 TIMES DAILY, First dose on Tue07/21/18 at 2200, Until Discontinued, Routine Given 07/21/2018 10:10 PM EDT 400 mg glucagon (human recombinant) injection S olR 1 mg 1 mg, Intramuscular, EVERY 1 HOUR PRN, S tarting on Tue07/21/18 at 1913, Until 07/22/18 at 1448, Low blood sugar, For BG 50-70 mg/d L: Oral treatment preferred:?? If able to drink, give 120 mL Juice or Regular (not diet) soda OR If NPO, give 15 gram glucose 40% oral gel massaged into b uccal mucosa OR if unconscious or uncooperative, give 12.5 gram (25 mL) Dextrose 50% IV OR, if no IV access, give 1 mg Glucagon IM. For BG less than 50 mg/dL: Oral treatment preferred:?? If able to drink, give 240 mL Juice or Regular (not diet) soda OR If NPO, give 30 gram glucose 40% oral gel m assaged in buccal mucosa OR if unconscious or uncooperative, give 25 gram (50 mL) D extrose 50% IV OR, if no IV access, give 1 mg Glucagon IM. Recheck BG in 30 minutes. May repeat juice, gel, dextrose or glucagon once per episode. To avoid ex travasation, push Dextrose 50% SLOWLY (3 mL over 1 minute) in a patent, running IV, preferably a c entral line. For persistent hypoglycemia, consider longer -acting treatment for the duration of the active insulin., Routine glucose (GLUTOSE) 40% oral gel 15-30 g, Buccal, EVERY 30 MIN PRN, Starting on 06/24 at 1913, Until 07/22/18 at 1448, Low blood sugar, For BG 50-70 mg/d L: Oral treatment preferred:?? If able to drink, give 120 mL Juice or Regular (not diet) soda OR If NPO, give 15 gram glucose 40% oral gel massaged into b uccal mucosa OR if unconscious or uncooperative, give 12.5 gram (25 mL) Dextrose 50% IV OR, if no IV access, give 1 mg Glucagon IM. For BG less than 50 mg/dL: Oral treatment preferred:?? If able to drink, give 240 mL Juice or Regular (not diet) soda OR If NPO, give 30 gram glucose 40% oral gel m assaged in buccal mucosa OR if unconscious or uncooperative, give 25 gram (50 mL) D extrose 50% IV OR, if no IV access, give 1 mg Glucagon IM. Recheck BG in 30 minutes. May repeat juice, gel, dextrose or glucagon once per episode. To avoid ex travasation, push Dextrose 50% SLOWLY (3 mL over 1 minute) in a patent, running IV, preferably a c entral line. For persistent hypoglycemia, consider longer -acting treatment for the duration of the active insulin. 1 tube contains 15 grams of glucose (n et weight of tube = 37.5 grams., Routine insulin lispro (HumaLOG) VIAL injection 2 Given 07/21/2018 1 1:57 PM EDT 2 Units Units 2 Units, Subcutaneous, ONCE, 1 dose, On Tue07/21/18 at 2345, 1x for BG greater than 250, Routine insulin lispro (HumaLOG) VIAL injection Given 07/22/2018 12:21 P M EDT 3 Units 3-12 Units 3-12 Units, Subcutaneous, 3 TIMES DAILY BEFORE MEALS, First dose on Tue07/22/18 at 0730, Until Discontinued, CORRECTION BOLUS Resistant to insulin obese patient or TDD (total daily dose of all insulin needed to achieve glycemic control) greater than 60 units BG 140 - 160 Give 3 units BG 161 - 200 Give 6 units BG 201 - 240 Give 9 units BG greater than 240, give 12 units and recheck BG in 2 hours.If BG less than 240 after two hours, give no insulin and resume prior schedule. If BG remains greater than 240, repeat 12 units (no more than three times) & call for new basal insulin orders. DO NOT hold if NPO, unless specifically told to do so., Routine Given 07/22/2018 8:09 AM EDT 6 Units isosorbide mononitrate (IMDUR) CR tablet 60 mg Given 07/22/2018 8:13 AM EDT 60 mg 60 mg, Oral, DAILY, First dose on Tue07/22/18 at 0900, Until Discontinued, DO NOT CRUSH OR OPEN, Routine lisinopril (PRINIVIL;ZESTRIL) tablet 5 m g Given 07/22/2018 8:13 AM EDT 5 mg 5 mg, Oral, DAILY, First dose on Tue07/22/18 at 0900, Until Discontinued, Routine metoprolol tartrate (LOPRESSOR) tablet 1 00 mg Given 07/22/2018 8:13 AM EDT 100 mg 100 mg, Oral, 2 TIMES DAILY, First dose on Tue07/21/18 at 2100, Until Discontinued, Routine Given 07/21/2018 10:10 PM EDT 100 mg nicotine (NICODERM CQ) Patch Applied 07/21/2018 11:15 PM 21 mg 10- Arm Upper 21 mg/24 hr patch 21 mg EDT (Right) 21 mg (1 patch), Transdermal, NIGHTLY, First dose on Tue07/21/18 at 2300, Until Discontinued, Routine nicotine (NICODERM CQ) 21 mg/24 hr patch Patch Verification Transdermal, 2 TIMES DAILY, First dose o n Tue07/22/18 at 0945, Until Discontinued, Verify nicotine 21 mg/24 hr patch nicotine (NICODERM CQ) patch REMOVAL Transdermal, NIGHTLY, First dose on Tue07/21/18 at 2145, Until Discontinued, Remove nicotine 21 mg/24 hr patch nicotine polacrilex (NICORETTE) gum 2 mg 2 mg, Buccal, EVERY 2 HOURS PRN, Startin g on Tue07/21/18 at 2243, Until Tue07/22/18 at 1448, Smoking cessation, Chew gum slo wly. Do not swallow. Maximum of 48 mg/day., Routine oxyCODONE (ROXICODONE) immediate release tablet Given 07/22/2018 3:54 AM EDT 5 mg 5 mg 5 mg, Oral, EVERY 4 HOURS, First dose on Tue07/21/18 at 1930, Until Discontinued, Routine Given 07/21/2018 11:15 PM EDT 5 mg pantoprazole (PROTONIX) tablet 40 mg Given 07/22/2018 8:13 AM EDT 40 mg 40 mg, Oral, DAILY, First dose on 07/22/18 at 0900, Until Discontinued sertraline (ZOLOFT) tablet 50 mg Given 07/22/2018 8:13 AM EDT 50 mg 50 mg, Oral, DAILY, First dose on Tue07/22/18 at 0900, Until Discontinued, Routine sodium chloride 0.9% infusion New Bag 07/21/2018 7:25 PM EDT 100 mL/hr 100 mL/hr 100 mL/hr, Intravenous, CONTINUOUS, Starting on Tue07/21/18 at 1930, Until Tue07/22/18 at 0529 documented in this encounter Active and Recently Administered Medications Times are shown in EDT. Scheduled Medication Order 07/20/2018 07/21/2018 07/22/2018 acetaminophen (TYLENOL) tablet 1,000 mg 2210 (Given - Provider: Bri Mackay, RN) 0812 (Given - Provider: Dianne Dominique ams RN)1220 (Given - Provider: Yaa Ortega RN) 1,000 mg, Oral, 4 TIMES DAILY, First dos e on Tue07/21/18 at 2100, Until Discontinued, Maximum dose of acetaminophen is 4000 mg from all sources in 24 hours., Routine aspirin chewable tablet 81 mg 08 12 (Given - Provider: Dianne Maher RN) 81 mg, Oral, DAILY, First dose on Tue at 0900, Until Discontinued, Routine atorvastatin (LIPITOR) tablet 80 mg 80 mg, Oral, EVERY EVENING, First dose o n Tue07/22/18 at 1700, Until Discontinued, Routine ceFAZolin (ANCEF) 2g in dextrose 5% 100 mL (COMPLETED) 1630 (Given - Provider: Thang Guevara CRNA) 2 g, Intravenous, ONCE, 1 dose, 07/21 at 1600, Administer over 30 Minutes, Day of Surgery (Day of Procedure), Indication for (Active or Suspected): Prophylaxis clopidogrel (PLAVIX) tablet 75 mg 0812 (Given - Provider: Dianne Maher RN) 75 mg, Oral, DAILY, First dose on Tue at 0900, Until Discontinued, Routine FLUoxetine (PROzac) capsule 80 mg 0813 (Given - Provider: Dianne Maher RN) 80 mg, Oral, DAILY, First dose on Tue at 0900, Until Discontinued, Routine gabapentin (NEURONTIN) capsule 400 mg 22 (Given - Provider: Bri Mackay RN) 812 (Given - Provider: Dianne Dominique ams, RN) 400 mg, Oral, 3 TIMES DAILY, First dose on Tue07/21/18 at 2200, Until Discontinued, Routine insulin lispro (HumaLOG) VIAL injection 2 Units (COMPLETED) 2356 (Given - Provider: Bri Mackay RN) 2 Units, Subcutaneous, ONCE, 1 dose, Tue07/21/18 at 2345, 1x for BG greater than 250, Routine insulin lispro (HumaLOG) VIAL injection 3-12 Units(Linked Group 1) 808 (Given - Provider: Dianne Maher RN)122 (Given - Provider: Yaa Ortega RN) 3-12 Units, Subcutaneous, 3 TIMES DAILY BEFORE MEALS, First dose on Tue07/22/18 at 0730, Until Discontinued, CORRECTION BOLUS Resistant to insulin obese patient or TDD (total daily dose of all insul in needed to achieve glycemic control) g reater than 60 units BG 140 - 160 Give 3 units BG 161 - 200 Give 6 units BG 201 - 240 Give 9 units BG greater than 240, give 12 units and recheck BG in 2 hours.If BG less than 240 after two hours, give no insulin and resume prior schedule. If BG remains greater than 240, repeat 12 units (no more than three times) & call for new basal insulin orders. DO NOT h old if NPO, unless specifically told to do so., Routine isosorbide mononitrate (IMDUR) CR tablet 60 mg 812 (Given - Provider: Dianne Maher RN) 60 mg, Oral, DAILY, First dose on Tue at 0900, Until Discontinued, DO NOT CRUSH OR OPEN, Routine lisinopril (PRINIVIL;ZESTRIL) tablet 5 mg 812 (Given - Provider: Dianne Maher RN) 5 mg, Oral, DAILY, First dose on 06/25 at 0900, Until Discontinued, Routine lisinopril (PRINIVIL;ZESTRIL) tablet 5 mg 1929 (Not Given - Provider: Bri Mackay RN - Reason: Patient not available) 5 mg, Oral, ONCE, 1 dose, Tue07/21/18 at 1930, Routine metoprolol tartrate (LOPRESSOR) tablet 100 mg 2210 (Given - Provider: Bri Mackay RN) 0813 (Given - Provider: Dianne Dominique ams, RN) 100 mg, Oral, 2 TIMES DAILY, First dose on Tue07/21/18 at 2100, Until Discontinued, Routine nicotine (NICODERM CQ) 21 mg/24 hr patch 21 mg(Linked Group 2) 2314 (Patch Applied - Provider: Bri Mackay RN) 21 mg (1 patch), Transdermal, NIGHTLY, F irst dose on Tue07/21/18 at 2300, Until Discontinued, Routine nicotine (NICODERM CQ) 21 mg/24 hr patch Patch Verification(Link ed Group 2) 0945 (Patch (dose and location) verified - Provider: Dianne Maher RN) Transdermal, 2 TIMES DAILY, First dose o n 07/22/18 at 0945, Until Discontinued, Verify nicotine 21 mg/24 hr patch nicotine (NICODERM CQ) patch REMOVAL(Linked Group 2) 2144 (Patch Removed - Provider: Bri Mackay RN) Transdermal, NIGHTLY, First dose on Tue07/21/18 at 2145, Until Discontinued, Remove nicotine 21 mg/24 hr patch oxyCODONE (ROXICODONE) immediate release tablet 5 mg 1929 (Not Given - Provider: Victorina Mantilla RN - Reason: See comment - Comment: pt having zero pain)2315 (Given - Provider: Bri Mackay RN) 0354 (Given - Provider: Bri Mackay RN)0730 (Not Given - Provider: Dianne Maher RN - Reason: Patient/family refused)1130 (Not Given - Provider: Dianne Maher RN - Reason: Patient/family refused) 5 mg, Oral, EVERY 4 HOURS, First dose on Tue07/21/18 at 1930, Until Discontinued, Routine pantoprazole (PROTONIX) tablet 40 mg 812 (Given - Provider: Dianne M Gunnar, RN) 40 mg, Oral, DAILY, First dose on 07/22/18 at 0900, Until Dis continued sertraline (ZOLOFT) tablet 50 mg 0813 (Given - Provider: Dianne Maher RN) 50 mg, Oral, DAILY, First dose on Sat at 0900, Until Discontinued, Routine Continuous Medication Order 07/20/2018 07/21/2018 07/22/2018 sodium chloride 0.9% infusion 1925 (New Bag - Provider: Victorina Mantilla RN) 0600 (Stopped - Provider: Bri snowden RN) 100 mL/hr, at 100 mL/hr, Intravenous, CO NTINUOUS, Starting Tue07/21/18 at 1930, Until 07/22/18 at 0529 PRN Medication Order 07/20/2018 07/21/2018 07/22/2018 dextrose 50% intravenous solution 25-50 mL(Linked Group 3) 25-50 mL (12.5-25 g), Intravenous, EVERY 1 HOUR PRN, Starting Tue07/21/18 at 1913, Until 07/22/18 at 1448, Low blood sugar, For BG 50-70 mg/dL: Oral treatment preferred:?? If able to drink, give 1 20 mL Juice or Regular (not diet) soda O R If NPO, give 15 gram glucose 40% oral gel massaged into buccal mucosa OR if unconscious or uncooperative, give 12.5 gram (25 mL) Dextrose 50% IV OR, if no IV ac cess, give 1 mg Glucagon IM. For BG l ess than 50 mg/dL: Oral treatment preferred:?? If able to drink, give 240 mL Juice or Regular (not diet) soda OR If NPO, give 30 gram glucose 40% oral gel massage d in buccal mucosa OR if unconscious or uncooperative, give 25 gram (50 mL) Dextrose 50% IV OR, if no IV access, give 1 mg Glucagon IM. Recheck BG in 30 minutes. May repeat juice, gel, dextrose or glu cagon once per episode. To avoid extra vasation, push Dextrose 50% SLOWLY (3 mL over 1 minute) in a patent, running IV, preferably a central line. For persistent hypoglycemia, consider longer-acting treatment for the duration of the active insulin., Routine fentaNYL (PF) 50mcg/mL injection (CANCELED) 1544 (Given - Provider: Heidi Melvin RN) 50 mcg, Intravenous, EVERY 10 MIN PRN, 2 doses, Starting Tue07/21/18 at 1531, Until Tue07/21/18 at 2037, Pain, If medication ordered subcutaneously, do not administer more than 2 mL as a single injection., Day of Surgery (Day of Procedure), Routine glucagon (human recombinant) injection SolR 1 mg(Linked Group 3) 1 mg, Intramuscular, EVERY 1 HOUR PRN, S tarting Tue07/21/18 at 1913, Until 07/22/18 at 1448, Low blood sugar, For BG 50-70 mg/dL: Oral treatment preferred:?? If able to drink, give 120 mL Juice or Regular (not diet) soda OR If NPO, give 15 gram glucose 40% oral gel massaged into buccal mucosa OR if unconscious or uncooperative, give 12.5 gram (25 mL) Dextrose 50% IV OR, if no IV access, give 1 m g Glucagon IM. For BG less than 50 mg /dL: Oral treatment preferred:?? If able to drink, give 240 mL Juice or Regular (not diet) soda OR If NPO, give 30 gram glucose 40% oral gel massaged in buccal mu cosa OR if unconscious or uncooperative, give 25 gram (50 mL) Dextrose 50% IV OR, if no IV access, give 1 mg Glucagon IM. Recheck BG in 30 minutes. May repeat juice, gel, dextrose or glucagon once per episode. To avoid extravasation, push Dextrose 50% SLOWLY (3 mL over 1 minute) in a patent, running IV, preferably a central line. For persistent hypoglycemia, consider longer-acting treatment for the duration of the active insulin., Routine glucose (GLUTOSE) 40% oral gel(Linked Group 3) 15-30 g, Buccal, EVERY 30 MIN PRN, Start ing Tue07/21/18 at 1913, Until 07/22/18 at 1448, Low blood sugar, For BG 50-70 mg/dL: Oral treatment preferred:?? If able to drink, give 120 mL Juice or Reg ular (not diet) soda OR If NPO, give 15 gram glucose 40% oral gel massaged into buccal mucosa OR if unconscious or uncooperative, give 12.5 gram (25 mL) Dextrose 50% IV OR, if no IV access, give 1 mg Gl ucagon IM. For BG less than 50 mg/dL: Oral treatment preferred:?? If able to drink, give 240 mL Juice or Regular (not diet) soda OR If NPO, give 30 gram glucose 40% oral gel massaged in buccal mucosa OR if unconscious or uncooperative, giv e 25 gram (50 mL) Dextrose 50% IV OR, if no IV access, give 1 mg Glucagon IM. Recheck BG in 30 minutes. May repeat juice, gel, dextrose or glucagon once per epi sode. To avoid extravasation, push Dex trose 50% SLOWLY (3 mL over 1 minute) in a patent, running IV, preferably a central line. For persistent hypoglycemia, consider longer-acting treatment for the duration of the active insulin. 1 tube contains 15 grams of glucose (net weight of tube = 37.5 grams., Routine hydrALAZINE (APRESOLINE) injection 5 mg 5 mg, Intravenous, EVERY 2 HOURS PRN, St arting Tue07/21/18 at 1913, Until 07/22/18 at 1448, High Blood Pressure, for SBP > 160 and HR < 60 labetalol (NORMODYNE,TRANDATE) injection 10 mg 10 mg, Intravenous, EVERY 2 HOURS PRN, S tarting Tue07/21/18 at 1913, Until 07/22/18 at 1448, High Blood Pressure, for SBP> 160 and HR>60, Routine nicotine polacrilex (NICORETTE) gum 2 mg 2 mg, Buccal, EVERY 2 HOURS PRN, Startin g Tue07/21/18 at 2243, Until 07/22/18 at 1448, Smoking cessation, Chew gum slowly. Do not swallow. Maximum of 48 mg/day., Routine Linked Groups Order Group 1: POCT Fingerstick Glucose (CANCELED) Routine, 4 TIMES DAILY BEFORE MEALS & AT BEDTIME, First occurrence on 07/22/18 at 1100, Until Specified
Consider choosing FOUR TIMES A DAY BEFORE MEALS AND AT BEDTIME as frequency fo r: Patients who have a good hypoglycemia awareness: -Patients who are eating meals during the day and sleeping at night -Patient who are otherwise stable And insulin lispro (HumaLOG) VIAL injection 3-12 UnitsJump to med 3-12 Units, Subcutaneous, 3 TIMES DAILY BEFORE MEALS, First dose on Tue07/22/18 at 0730, Until Discontinued
CORRECTION BOLUS Resistant to insulin obese patient or TDD (to ann daily dose of all insulin needed to achieve glycemic control) greater than 60 units BG 140 - 160 Give 3 units BG 161 - 200 Give 6 units BG 201 - 240 Give 9 units BG greater than 240, give 12 units and recheck BG in 2 hours.If BG less than 240 after two hours, give no insulin and resume prior schedule. If BG remains greater maci n 240, repeat 12 units (no more than thr ee times) & call for new basal insulin orders. DO NOT hold if NPO, unless specifically told to do so.
Routine Group 2: nicotine (NICODERM CQ) 21 mg/24 hr patch 21 mgJump to med 21 mg (1 patch), Transdermal, NIGHTLY, F irst dose on Tue07/21/18 at 2300, Until Discontinued, Routine And nicotine (NICODERM CQ) 21 mg/24 hr patch Patch VerificationJump to med Transdermal, 2 TIMES DAILY, First dose o n 07/22/18 at 0945, Until Discontinued
Verify nicotine 21 mg/24 hr patch
And nicotine (NICODERM CQ) patch REMOVALJump to med Transdermal, NIGHTLY, First dose on Tue07/21/18 at 2145, Until Discontinued
Remove nicotine 21 mg/24 hr patch
Group 3: glucose (GLUTOSE) 40% oral gelJump to med 15-30 g, Buccal, EVERY 30 MIN PRN, Start ing Tue07/21/18 at 1913, Until Tue07/22/18 at 1448, Low blood sugar
For BG 50-70 mg/dL: Oral treatment preferred:?? If able to drink, give 120 mL Juic e or Regular (not diet) soda OR If NPO, give 15 gram glucose 40% oral gel massaged into buccal mucosa OR if unconscious or uncooperative, give 12.5 gram (25 mL) Dextrose 50% IV OR, if no IV access, give 1 mg Glucagon IM. For BG less than 50 mg/dL: Oral treatment preferred:?? If able to drink, give 240 mL Juice or Regular (not diet) soda OR If NPO, give 30 gram glucose 40% oral gel massage d in buccal mucosa OR if unconscious or uncooperative, give 25 gram (50 mL) Dextrose 50% IV OR, if no IV access, give 1 mg Glucagon IM. Recheck BG in 30 minutes. May repeat juice, gel, dextro se or glucagon once per episode. * *To avoid extravasation, push Dextrose 50% SLOWLY (3 mL over 1 minute) in a patent, running IV, preferably a central line. For persistent hypogly cemia, consider longer-acting treatment for the duration of the active insulin. 1 tube contains 15 grams of glucose (net weight of tube = 37.5 grams.
Routine Or dextrose 50% intravenous solution 25-50 mLJump to med 25-50 mL (12.5-25 g), Intravenous, EVERY 1 HOUR PRN, Starting Tue07/21/18 at 1913, Until 07/22/18 at 1448, Low blood sugar
For BG 50-70 mg/dL: Oral treatment preferred:?? If able to drink , give 120 mL Juice or Regular (not diet ) soda OR If NPO, give 15 gram glucose 40% oral gel massaged into buccal mucosa OR if unconscious or uncooperative, give 12.5 gram (25 mL) Dextrose 50% IV OR, if no IV access, give 1 mg Glucagon IM. &nb sp; For BG less than 50 mg/dL: Oral treatment preferred:?? If able to drink, give 240 mL Juice or Regular (not diet) soda OR If NPO, give 30 gram glucose 40 % oral gel massaged in buccal mucosa OR if unconscious or uncooperative, give 25 gram (50 mL) Dextrose 50% IV OR, if no IV access, give 1 mg Glucagon IM. Recheck BG in 30 minutes. May repeat juice, gel, dextrose or glucagon once pe r episode. To avoid extravasation, push Dextrose 50% SLOWLY (3 mL over 1 minute) in a patent, running IV, preferably a central line. For persistent hypoglycemia, consider longer -acting treatment for the duration of the active insulin.
Routine Or glucagon (human recombinant) injection SolR 1 mgJump to med 1 mg, Intramuscular, EVERY 1 HOUR PRN, S tarting 07/21/18 at 1913, Until 07/22/18 at 1448, Low blood sugar
For BG 50-70 mg/dL: Oral treatment preferred:?? If able to drink, give 120 mL Juice or Regular (not diet) soda OR If N PO, give 15 gram glucose 40% oral gel massaged into buccal mucosa OR if unconscious or uncooperative, give 12.5 gram (25 mL) Dextrose 50% IV OR, if no IV access, give 1 mg Glucagon IM. For BG l ess than 50 mg/dL: Oral treatment preferred:?? If able to drink, give 240 mL Juice or Regular (not diet) soda OR If NPO, give 30 gram glucose 40% oral gel mas saged in buccal mucosa OR if unconscious or uncooperative, give 25 gram (50 mL) Dextrose 50% IV OR, if no IV access, give 1 mg Glucagon IM. Recheck BG in 30 minutes. May repeat juice, gel, de xtrose or glucagon once per episode. &nb sp;To avoid extravasation, push Dextrose 50% SLOWLY (3 mL over 1 minute) in a patent, running IV, preferably a central line. For persistent hyp oglycemia, consider longer-acting treatm ent for the duration of the active insulin.
Routine documented in this encounter Care Teams [employer] Relationship Specialty Start Date End Date Joel Mccarthy MD PCP - General General Internal Medicine 06/29/18 [address] [place] [address] documented as of this encounter
--- OUTSIDE RECORDS SUMMARY | 2021-10-30 01:53 | XMS_ITS | Encounter Summary ---
:1960 [place] [address] Care Team Providers Name Role Phone Joel Mccarthy MD Primary Care Provider Reason for Visit Auth/Cert Specialty Diagnoses / Procedures Referred By Contact Refer red To Contact Diagnoses Myocardial infarction HI Referral ID Status Reason Start Date Expiration Date Visits Requ ested Visits Authorized [id number] 1 Encounter Details Date Type Department Care Team Description 07/24/2019 Hospital Encounter [place] [address] Social History Tobacco Use Types Packs/Day Years Used Date Former Smoker 1 40 Smokeless Tobacco: Never Used Alcohol Use Standard Drinks/Week Comments Yes 4 (1 standard drink = 0.6 oz pure alcoho l) Sex Assigned at Date Recorded Not on file documented as of this encounter Medications at Time of Discharge Medication Sig Dispensed Refills Start Date End Date nitroGLYcerin Place 1 tablet under 60 tablet 0 07/25/2019 (Nitrostat) 0.4 mg the tongue every 5 Tablet, Sublingual minutes as needed for Chest pain. carvediloL (Coreg) 12.5 Take 1 tablet by 90 tablet 3 2019 mg Tablet mouth 2 times daily (with meals). metFORMIN (GLUCOPHAGE) Take 1 tablet by 180 tablet 3 020 1,000 mg Tablet mouth 2 times daily (with meals). lisinopriL Take 1 tablet by 90 tablet 3 07/25/2019 (Prinivil;Zestril) 20 mouth daily. mg Tablet oxyCODONE (ROXICODONE) Take 1 tablet by 15 tablet 0 019 5 mg TabletIndications: mouth every 4 [...] Diagnosis Comme nts POCT GLUCOSE Routine 07/25/2019 12:09 Results for this AM EDT procedure are i n the results section. POCT GLUCOSE Routine 07/24/2019 8:19 Results for this PM EDT procedure are i n the results section. POCT GLUCOSE Routine 07/24/2019 4:04 Results for this PM EDT procedure are i n the results section. POCT GLUCOSE Routine 07/24/2019 11:31 Results for this AM EDT procedure are i n the results section. ECHOCARDIOGRAM Routine 07/24/2019 10:00 Coronary artery Result s for this COMPLETE W CONTRAST AM EDT disease, angina proce dure are in presence the results unspecified, section. unspecified vessel or lesion type, unspecified whether hopi or transplanted heart documented in this encounter Results POCT Glucose (07/25/2019 12:09 AM EDT) athologist Signature POC Glucose 166 65 - 199 [facility] mg/dL [facility] Comment: Supplemental ranges: <140 mg/dL before meals <180 mg/dL all other times of the day Specimen Anatomical Collection Method Collection Time Receive d Time (Source) Location / / Volume Laterality Blood specimen 07/25/2019 12:09 0 (specimen) AM EDT 12:[address] Rony Rajput MD POINT OF CARE TEST ORDERABLE S Performing Organization Address City/State/[place] [address] POCT Glucose (07/24/2019 8:19 PM EDT) athologist Signature POC Glucose 169 65 - 199 [facility] mg/dL [facility] Comment: Supplemental ranges: <140 mg/dL before meals <180 mg/dL all other times of the day Specimen Anatomical Collection Method Collection Time Receive d Time (Source) Location / / Volume Laterality Blood specimen 07/24/2019 8:19 PM 020 8:19 (specimen) EDT PM EDT Dr Rony Rajput MD POINT OF CARE TEST ORDERABLE S Performing Organization Address City/State/ZIP Code Phon e Number [address] (ABNORMAL) POCT Glucose (07/24/2019 4:04 PM EDT) athologist Signature POC Glucose 228 (H) 65 - 199 [facility] mg/dL [facility] Comment: Supplemental ranges: <140 mg/dL before meals <180 mg/dL all other times of the day Specimen Anatomical Collection Method Collection Time Receive d Time (Source) Location / / Volume Laterality Blood specimen 07/24/2019 4:04 PM 020 4:04 (specimen) EDT PM EDT Dr Rony Rajput MD POINT OF CARE TEST ORDERABLE S Performing Organization Address City/[facility]/[place] [address] POCT Glucose (07/24/2019 11:31 AM EDT) athologist Signature POC Glucose 163 65 - 199 [facility] mg/dL [facility] Comment: Supplemental ranges: <140 mg/dL before meals <180 mg/dL all other times of the day Specimen Anatomical Collection Method Collection Time Receive d Time (Source) Location / / Volume Laterality Blood specimen 07/24/2019 11:31 0 (specimen) AM EDT 11:[address] Rony Rajput MD POINT OF CARE TEST ORDERABLE S Performing Organization Address City/State/[place] [address] documented in this encounter Visit Diagnoses Not on filedocumented in this encounter Administered Medications Inactive Administered Medications - up to 3 most recent administrations Medication Order MAR Action Action Date Dose Rate Site perflutren protein-A microspheres Given 07/24/2019 9:40 AM EDT 1 .2 mLs (OPTISON) 0.22 mg/mL injection 0.5 mL 0.5 mL, Intravenous, ONCE PRN, 1 dose, Starting on Tue07/24/19 at 1001, Until Tue07/24/19 at 0940, for enhancement of sub-optimal echo images, Echo Lab (Intra-Procedure), Routine documented in this encounter Care Teams Financial Reporting Advisor Relationship Specialty Start Date End Date Joel Mccarthy MD PCP - General General Internal Medicine 06/29/18 [address] [place] [address] documented as of this encounter
--- OUTSIDE RECORDS SUMMARY | 2021-10-30 01:53 | XMS_ITS | Encounter Summary ---
:1960 [place] [address] Care Team Providers Name Role Phone Joel Mccarthy MD Primary Care Provider Reason for Visit Reason Onset Date Comments Leg Pain 08/14/2018 Encounter Details Date Type Department Care Team Description 08/14/2018 Telephone Vascular Surgery Heavenly Tran MD Leg Pain [facility] [place] [address] VASCULAR SURGERY [phone] [place] [id number] (Wo rk) Social History Tobacco Use Types Packs/Day Years Used Date Former Smoker 1 40 Smokeless Tobacco: Never Used Alcohol Use Standard Drinks/Week Comments Yes 4 (1 standard drink = 0.6 oz pure alcoho l) Sex Assigned at Date Recorded Not on file documented as of this encounter Miscellaneous Notes Telephone Encounter - Heavenly Tran MD - 08/14/2018 6:51 PM EDT Pt is sp R SFA stenting for occlusion. Pt was seen by Dr Oneal 3 days ago and reported severe foot pain, 6/10 baseline at times shooting to 10/10. Pt state he is out of narcotics. I explained that the stent is patent based on studies 3 days ago and he really should not have persistent need for opioid medication. Pt stated he is in severe pain and cannot continue in this condition. We will write for 10tablets of oxycodone 5 mg. Pt has opioid consent scanned into chart from 07/03/2018. Heavenly Tran MD/SILVA, PGY-5 Section of Vascular Surgery, Pager [phone] documented in this encounter Plan of Treatment Not on filedocumented as of this encounter Visit Diagnoses Not on filedocumented in this encounter Care Teams Dog Pound Attendant Relationship Specialty Start Date End Date Joel Mccarthy MD PCP - General General Internal Medicine 06/29/18 [address] [place] [address] documented as of this encounter
--- OUTSIDE RECORDS SUMMARY | 2021-10-30 01:53 | XMS_ITS | Encounter Summary ---
:1960 Author Organization [facility] Address [facility] [place] [address] Care Team Providers Name Role Phone Joel Mccarthy MD Primary Care Provider Encounter Details Date Type Department Care Team Description 07/25/2018 Ancillary Procedure Radiology Library at Deric Oneal MD [facility] [place] [address] [place] [address] [phone] (Wo rk) Social History Tobacco Use Types [...] Name Priority Date/Time Associated Diagnosis Comme nts IR OR VASC Routine 07/21/2018 6:23 PM Results f or this ANGIOGRAM IMAGE EDT procedure ar e in STORAGE ONLY the results section. documented in this encounter Results IR OR VASC Aniogram Image Storage Only (07/21/2018 6:23 PM EDT) Specimen (Source) Anatomical Location Collection Method / Collectio n Time Received Time / Laterality Volume Narrative SHWETA - 07/25/2018 10:04 AM EDT This exam is auto-finalizing. It's purpo se is for storage only. Lamine Oneal MD IMG FILM LIBRARY ORDERABLES Performing Organization Address City/State/ZIP Code Phon e Number RAD [place], [place] documented in this encounter Visit Diagnoses Not on filedocumented in this encounter Care Teams Events Assistant Relationship Specialty Start Date End Date Joel Mccarthy MD PCP - General General Internal Medicine 06/29/18 [address] [place] [address] documented as of this encounter
--- OUTSIDE RECORDS SUMMARY | 2021-10-30 01:53 | XMS_ITS | Encounter Summary ---
:1960 [place] [address] Care Team Providers Name Role Phone Joel [...] Expiration Date Visits Requ ested Visits Authorized [id number] 1 1 Encounter Details Date Type Department Care Team Description 07/21/2018 - Hospital Encounter Neuro Critical Care Jhonny Oneal, Critical lower limb 07/22/2018 Unit - Rebecca Perez MD ischemia [facility] VASCULAR SURG [place] [id number] [id number] Social History Tobacco Use Types Packs/Day Years Used Date Former Smoker 1 40 Smokeless Tobacco: Never Used Alcohol Use Standard Drinks/Week Comments Yes 4 (1 standard drink = 0.6 oz pure alcoho l) Sex Assigned at Date Recorded Not on file documented as of this encounter Last Filed Vital Signs Vital Sign Reading Time Taken Comments Blood Pressure 142/65 07/22/2018 7:53 AM EDT Pulse 92 07/21/2018 8:30 PM EDT Temperature 37 ??C (98.6 ??F) 07/22/2018 7:53 AM EDT Respiratory Rate 18 07/22/2018 7:53 AM EDT Oxygen Saturation 99% 07/22/2018 7:53 AM EDT Inhaled Oxygen Concentration - - [...] (coronary artery bypass graft) ??? Atherosclerosis of [place] artery of right lower extremity with intermittent claudication ?? 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 ??? Hypertension ??? Financial difficulties--- barrier to medication use ??? Coronary artery disease 06/2016: NSTEMI. Cath showing 3vD. Surgery recommended. ??? Non ST elevation [place] due to severe 3vD-- awaiting for CABG [...] the right external iliac artery and severe CORPORATE TRAVEL MANAGER stenosis. ??For this he underwent right iliofemral [...] gauge x 5/16 Syrg 1 Box by [facility]Non-Drug; Combo Route) route 2 times [...] For any problems or questions please call [phone] KARI Griggs, casing worker Nurse Clinician For issues on weeknights after 5pm and weekends please call [phone] and ask for the Vascular Fellow production material handler. General Instructions None Future Appointments and Orders Future Orders Complete By Expires REYMUNDO, legs, multiple levels [VAS8 Custom] 08/05/2018 (Approximate) 02/04/2019 Process Instructions: There is no in-house vascular equipment operator/laborer available on weeknights (5pm-8am), weekends, or holidays. IF THIS IS A REQUEST FOR AN EMERGENT STUDY DURING THOSE HOURS, please have the senior provider responsible for the patient page the Vascular Surgery Fellow/Senior Resident production material handler to discuss options. Scheduling Instructions: Questions: Indication for study/signs & symptoms: sp R SFA stent Question to be answered: ? improvement in REYMUNDO At which [facility] location will this be performed?: [place] Arterial Duplex Leg, Unil [VAS32 Custom] 08/05/2018 (Approximate) 02/04/2019 Process Instructions: There is no in-house vascular equipment operator/laborer available on weeknights (5pm-8am), weekends, or holidays. IF THIS IS A REQUEST FOR AN EMERGENT STUDY DURING THOSE HOURS, please have the senior provider responsible for the patient page the Vascular Surgery Fellow/Senior Resident production material handler to discuss options. Scheduling Instructions: Questions: Laterality: Right Lower limb right segments: Common Femoral Superficial Femoral Is there a stent?: Yes Stent Location: proximal SFA Indication for study/signs & symptoms: sp proximal SFA stent, check patency Question to be answered: check CORPORATE TRAVEL MANAGER and SFA patency now sp right SFA stent Laterality: Right Is there a RIGHT LOWER EXTREMITY graft?: No At which [facility] location will this be performed?: [facility] Discharge References/Attachments: Discharge References/Attachments None Electronically Signed [...] For any problems or questions please call [phone] KARI Griggs, casing worker Nurse Clinician For issues on weeknights after 5pm and weekends please call [phone] and ask for the Vascular Fellow production material handler. documented in this encounter Medications at Time [...] tablet by 15 tablet 0 019 08/14/2018 5 mg Tablet mouth every [...] answered. Pt leaves pushed in WC by SMOKE CONTROL SUPERVISOR w/ Oxycodone script in hand. Pt in no apparent distress, plans to drive self home. Left floor @ 1245 Shaheed Yadav MD - 07/21/2018 9:32 PM EDT Vascular Surgery Post Op Check Bertin Moreno Jamal is a 57 y.o. male s/p Right [...] the right external iliac artery and severe CORPORATE TRAVEL MANAGER stenosis. ??For this he underwent right iliofemral [...] 39.88) performed by Valentino Arredondo MD at [facility] MAIN OR ??? PRO CABG, ARTERY-VEIN, TWO N/A 07/12/2016 ?? @CABG, TWO VENOUS GRAFTS & ARTERIAL GRAFT (WRVU 7.93) performed by Valentino Arredondo MD at [facility] MAIN OR ??? PRO ENDOSCOPY W/VIDEO-ASST VEIN HARVEST, CABG Right 07/12/2016 ?? ENDOSCOPIC HARVEST VEIN(S) FOR CABG (WRVU 0.31) performed by Valentino Arredondo MD at [facility] MAIN OR ? ? PRO REVSC OPEN/PERCUTANEOUS ILIAC ART W STNT PLMT&ANGIO WENDI VSL UNILAT Right 06/28/2018 ?? REVSC OPN\PRQ ILIAC ART W\STNT PLMT & ANGIOP SAME VSL (WRVU 10) performed by Jhonny Oneal MD at [facility] MAIN OR ??? PRO THROMBOENDARTECTMY ILIOFEMORAL Right 06/28/2018 ?? @ENDARTERECTOMY, ILIOFEMORAL W OR W/O PATCH GRAFT (WRVU 19.86) performed by Jhonny Oneal MD at [facility] MAIN OR ? Functional Status/Social Hx: Lives [...] gauge x 5/16 Syringe 1 Box by [facility] [place]Non-Drug; Combo Route) route 2 times [...] MD/SILVA, PGY-5 Section of Vascular Surgery, Pager [phone] documented in this encounter Miscellaneous Notes Plan [...] Insulin coverage given per MD order. See Mar. Recheck was 289. Will be rechecked at [...] Tran MD - 07/21/2018 6:59 PM EDT [facility] Operative [place] Patient Name: Bertin Lorenzo : [id number] MR#: [id number] Case Date: 07/21/2018 Surgeon: Surgeon(s) and Role: [...] Implant Name Type Inv. Item Serial No. Propeller Tester Lot No. LRB No. Used Action STENT,ENDP,HEP,7FR,[id number] ([id number]) (AutoReq) - [id number] IMPLANTS STENT,ENDP,HEP,7FR,5X2.5X120 ([id number]) (AutoReq) [id number] [employer] Right 1 Implanted STENT,EPIC,SLFX,6X60MM,120CM ([id number]) (AutoReq) - [id number] IMPLANTS STENT,EPIC,SLFX,6X60MM,120CM ([id number]) (AutoReq) [employer] [id number] Right 1 Implanted Findings: Open SFA cutdown [...] the right external iliac artery and severe CORPORATE TRAVEL MANAGER stenosis. ??For this he underwent right iliofemral [...] Component Value Ref Test Analysis Performed At [facility] Client Outlook Range Method Time Signature VB Text Department: Vascular Surgery Lab VASCUBASE Report Patient: [id number] (BERTIN LORENZO) CPT: 65111 ICD10: I74.3;I99.8 Referring Physician: JHONNY ONEAL MD [...] to pr e-op exam done 07/20/2018. Patent [place] femoral artery with elevated velocities (PSV-207 cm/s) [...] Component Value Ref Test Analysis Performed At [facility] Range Method Time Signature VB Text Department: Vascular Surgery Lab VASCUBASE Report Patient: [id number] (BERTIN LORENZO) CPT: 30962 ICD10: I73.9;I99.8 Referring Physician: JHONNY ONEAL MD [...] Tibial (Ankle) Art rose ??103 ? 0.82 ??Tarrant-Biphasic ? Great Toe ?57 ? 0.46 ?? Left ? Pressure (mm Hg) ?? REYMUNDO ??Waveform ?TBI ?? Brachial Artery ?125 ? Dorsalis Pedis (Ankle) Arter y ?78 ?0.62 ??[place]arrant- Biphasic ? Posterior Tibial (Ankle) Art rose ??80 ?0.64 ??[place]arrant- Biphasic ? Great Toe ?53 ? 0.42 [...] 159 65 - 199 JW AFIA mg/dL [facility] Comment: [...] Organization Address City/State/[place] [address] (ABNORMAL) Differential, Automated (07/22/2018 10:34 AM EDT) [facility] Method Time Signature Neutrophils % 68.8 % [facility] Neutr Abs (ANC) 8.89 (H) 1.70 - [facility] 6.10 [facility] x10(3)/[facility] LABORATORY Lymphocytes % 23.6 % [facility] Lymphocytes Abs 3.0 0.9 - 3.2 [facility] x10(3)/[facility] LABORATORY Monocytes % 6.6 % [facility] Monocyte Abs 0.8 0.3 - 0.9 [facility] x10(3)/[facility] LABORATORY Eosinophils % 0.2 % [facility] Eosinophils Abs 0.0 0.0 - 0.4 [facility] x10(3)/[facility] LABORATORY Basophils % 0.2 % [facility] Basophils Abs 0.0 0.0 - 0.1 [facility] x10(3)/[facility] LABORATORY Immature Gran % 0.60 % [facility] Comment: Immature granulocytes(IG's)percentage an d absolute count will include metamyelocytes, myelocytes, and promyelo cytes. Blood smears from CBCs yielding IG's will be scanned manually for concor dance. If this scan disagrees with the automated IG or if promyelocytes are not ed, a manual differential will be performed. Madhuri Gran Abs 0.08 (H) 0.00 - 0.04 x10(3)/[facility] LABORATORY Specimen Anatomical Collection Method Collection Time Receive d Time (Source) Location / / Volume Laterality Blood specimen 07/22/2018 10:34 9 (specimen) AM EDT 10:42 AM EDT Resulting Agency Comment Spec In Lab Heavenly Tran MD HEMATOLOGY ORDERABLES Performing Organization Address City/State/[place] [address] (ABNORMAL) Hemogram (07/22/2018 10:34 AM EDT) Analysis Performed At Patho logist Time Signature WBC 12.9 (H) 4.0 - 9.5 [facility] x10(3)/[facility] LABORATORY RBC 3.79 (L) 4.58 - JW AFIA 5.54 [facility] x10(6)/[facility] LABORATORY Hemoglobin 11.1 (L) 13.7 - [facility] 16.[facility] gm/dL [facility] Hematocrit 35.1 (L) 40.5 - [facility] 48.5 % [facility] MCV 92.6 82.9 - [facility] 93.1 [facility] LABORATORY MCH 29.3 27.5 - [facility] 32.1 pg [facility] MCHC 31.6 (L) 32.0 - [facility] 35.7 gm/dL [facility] Platelets 192 145 - 357 [facility] x10(3)/[facility] LABORATORY RDWSD 49.1 (H) 36.0 - [facility] 45.0 [facility] LABORATORY RDWCV 14.3 (H) 11.4 - [facility] 13.8 % [facility] MPV 11.8 7.6 - 12.9 [facility] LABORATORY nRBC % Auto 0.0 % [facility] nRBC Abs Auto 0.000 0.000 - [facility] 0.000 [facility] x10(3)/[facility] LABORATORY Specimen Anatomical Collection Method Collection Time Receive d Time (Source) Location / / Volume Laterality Blood specimen 07/22/2018 10:34 9 (specimen) AM EDT 10:42 AM EDT Resulting Agency Comment Spec In Lab Heavenly Tran MD HEMATOLOGY ORDERABLES Performing Organization Address City/State/[place] [address] (ABNORMAL) Basic Metabolic Panel (non-fasting) (07/22/2018 10:34 AM EDT) P athologist Signature Glucose Lvl 172 65 - 199 [facility] mg/dL [facility] Comment: Diabetes: >=200 mg/dL plus symp toms BUN 14 10 - 20 mg/dL [facility] Creatinine 0.88 0.80 - 1.50 mg/dL [facility] Sodium 139 135 - 145 mmol/L [facility] Potassium 4.2 3.5 - 5.0 mmol/L [facility] Comment: Please note: ??Patients with WBC >100,00 0 may have falsely elevated Potassium levels. ??For accurate Potassium quantif ication in these patients send serum separator tube (gold top) for subsequent determinations. ??Contact the Clinical Chemistry Laboratory if there are any qu estions. Chloride 102 98 - 107 mmol/L [facility] CO2 21 (L) 22 - 31 mmol/L [facility] Anion Gap 16 (H) 5 - 15 mmol/L [facility] Calcium 9.2 8.5 - 10.5 mg/dL [facility] Estimated GFR 95 >=60 mL/min/1.73 m?? [facility] Comment: The eGFR was calculated using the CKD-EP I equation. As with all creatinine based estimates of kidney function, eGFR values calculated with the CKD-EPI equation are not accurate in patients wi th acute kidney failure, extremes of body mass or the acutely ill. [email or web address] eGFR 111 >=60 mL/min/1.73 m?? [facility] Comment: The eGFR was calculated using the CKD-EP I equation. As with all creatinine based estimates of kidney function, eGFR values calculated with the CKD-EPI equation are not accurate in patients wi th acute kidney failure, extremes of body mass or the acutely ill. [email or web address] Specimen Anatomical Collection Method Collection Time Receive d Time (Source) Location / / Volume Laterality Blood specimen 07/22/2018 10:34 9 (specimen) AM EDT 10:42 AM EDT Resulting Agency Comment Spec In Lab Jhonny Oneal MD CHEMISTRY ORDERABLES Performing Organization Address City/State/[place] [address] POCT Glucose (07/22/2018 7:49 AM EDT) athologist Signature POC Glucose 179 65 - 199 [facility] mg/dL [facility] Comment: Supplemental ranges: <140 mg/dL before meals <180 mg/dL all other times of the day Specimen Anatomical Collection Method Collection Time Receive d Time (Source) Location / / Volume Laterality Blood specimen 07/22/2018 7:49 AM 019 7:49 (specimen) EDT AM EDT Jhonny Oneal MD POINT OF CARE TEST ORDERABLE S Performing Organization Address City/[facility]/[place] [address] (ABNORMAL) POCT Glucose (07/22/2018 2:24 AM EDT) athologist Signature POC Glucose 282 (H) 65 - 199 [facility] mg/dL [facility] Comment: Supplemental ranges: <140 mg/dL before meals <180 mg/dL all other times of the day Specimen Anatomical Collection Method Collection Time Receive d Time (Source) Location / / Volume Laterality Blood specimen 07/22/2018 2:24 AM 019 2:24 (specimen) EDT AM EDT Jhonny Oenal MD POINT OF CARE TEST ORDERABLE S Performing Organization Address City/State/[place] [address] (ABNORMAL) POCT Glucose (07/21/2018 9:33 PM EDT) athologist Signature POC Glucose 290 (H) 65 - 199 [facility] mg/dL [facility] Comment: Supplemental ranges: <140 mg/dL before meals <180 mg/dL all other times of the day Specimen Anatomical Collection Method Collection Time Receive d Time (Source) Location / / Volume Laterality Blood specimen 07/21/2018 9:33 PM 019 9:33 (specimen) EDT PM EDT Jhonny Oneal MD POINT OF CARE TEST ORDERABLE S Performing Organization Address City/State/[place] [address] POCT Glucose (07/21/2018 6:36 PM EDT) athologist Signature POC Glucose 134 65 - 199 JW DURANTAFIA mg/dL [facility] Comment: Supplemental ranges: <140 mg/dL before meals <180 mg/dL all other times of the day Specimen Anatomical Collection Method Collection Time Receive d Time (Source) Location / / Volume Laterality Blood specimen 07/21/2018 6:36 PM 019 6:36 (specimen) EDT PM EDT Jhonny Oneal MD POINT OF CARE TEST ORDERABLE S Performing Organization Address City/State/[place] [address] IR OR VASC Aniogram Image Storage Only (07/21/2018 6:23 PM EDT) Specimen (Source) Anatomical Location Collection Method / Collectio n Time Received Time / Laterality Volume Narrative [facility] - 07/25/2018 10:04 AM EDT This exam is auto-finalizing. It's purpo se is for storage only. Jhonny Oneal MD IMG FILM LIBRARY ORDERABLES Performing Organization Address City/State/ZIP Code Phon e Number RAD [place], [place] POCT Glucose (07/21/2018 6:12 PM EDT) athologist Signature POC Glucose 134 65 - 199 [facility] AF[facility] mg/dL [facility] Comment: [...] Organization Address City/State/[place] [address] POCT Glucose (07/21/2018 5:11 PM EDT) P athologist Signature POC Glucose 167 65 - 199 [facility] mg/dL [facility] Comment: Supplemental ranges: <140 mg/dL before meals <180 mg/dL all other times of the day Specimen Anatomical Collection Method Collection Time Receive d Time (Source) Location / / Volume Laterality Blood specimen 07/21/2018 5:11 PM 019 5:11 (specimen) EDT PM EDT Jhonny Oneal MD POINT OF CARE TEST ORDERABLE S Performing Organization Address City/State/[place] [address] (ABNORMAL) BLOOD GAS 2 ARTERIAL (07/21/2018 4:34 PM EDT) Analysis Performed At Patho logist Time Signature pH Art 7.39 7.35 - [facility] 7.45 [facility] pCO2 Art 41 35 - 45 [facility] mmHg [facility] pO2 Art 142 (H) 85 - 104 [facility] LABORATORY HCO3 Art 24.4 20.0 - [facility] 26.0 [facility] mmol/L [facility] BE Art -0.5 -3.0 - 3.0 [facility] mmol/L [facility] Hgb Blood Gas 12.3 (L) 13.7 - [facility] 16.5 gm/dL [facility] O2HB Art 93.2 (L) 94.0 - [facility] 97.0 % [facility] COHB Art 5.1 % [facility] Comment: Nonsmokers: 0.5-1.5% COHB Smokers: Variable, but usually less than 10% Toxic: 20-30% COHB Lethal: Greater than 60% COHB METHB Art 0.3 <=1.5 % [facility] Na Whole Blood 138 135 - 145 mmol/L [facility] K Whole Blood 4.0 3.5 - 5.0 mmol/L [facility] Comment: Please note: Patients with WBC >100,000 may have falsely elevated Potassium levels. Contact the Clinical Chemistry L aboratory if there are any questions. ICa Whole Blood 1.16 1.15 - 1.33 mmol/L [facility] Comment: Note: ??Total bilirubin higher than 20 m g/dL may lead to falsely low ionized calcium. CL Whole Blood 106 98 - 107 mmol/L [facility] Gluc Whole Bld 199 65 - 199 mg/dL [facility] Comment: Diabetes: >=200 mg/dL plus symp toms. Lactate WB 1.8 0.5 - 2.2 mmol/L [facility] Specimen Anatomical Collection Method Collection Time Receive d Time (Source) Location / / Volume Laterality Blood specimen 07/21/2018 4:34 PM 019 4:34 (specimen) EDT PM EDT Jhonny Oneal MD CHEMISTRY ORDERABLES Performing Organization Address City/[facility]/[place] [address] (ABNORMAL) POCT Glucose (07/21/2018 2:40 PM EDT) athologist Signature POC Glucose 260 (H) 65 - 199 [facility] mg/dL [facility] Comment: Supplemental ranges: <140 mg/dL before meals <180 mg/dL all other times of the day Specimen Anatomical Collection Method Collection Time Receive d Time (Source) Location / / Volume Laterality Blood specimen 07/21/2018 2:40 PM 019 2:40 (specimen) EDT PM EDT Jhonny Oneal MD POINT OF CARE TEST ORDERABLE S Performing Organization Address City/[facility]/[place] [address] documented in this encounter Visit Diagnoses Diagnosis Critical lower limb ischemia Unspecified circulatory system disorder documented in this encounter Administered Medications Inactive [...] Until 07/22/18 at 1448, Low blood sugar, F or [...] CONTINUOUS, Starting on Tue07/21/18 at 1930, Until 07/22/18 at 0529 documented in this encounter Active and Recently Administered Medications Times are shown in EDT. Scheduled Medication Order 07/20/2018 07/21/2018 07/22/2018 acetaminophen (TYLENOL) tablet 1,000 mg 2210 (Given - Provider: Bri Mackay RN) 0812 (Given - Provider: Dianne Dominique ams RN)1220 (Given - Provider: Yaa Ortega, HEAVEN) 1,000 mg, Oral, 4 TIMES DAILY, First [...] 75 mg, Oral, DAILY, First dose on Sat at 0900, Until Discontinued, Routine FLUoxetine (PROzac) capsule 80 mg 0813 (Given - Provider: Dianne Maher RN) 80 mg, Oral, DAILY, First dose on Sat at 0900, Until Discontinued, Routine gabapentin (NEURONTIN) capsule 400 mg 22 10 (Given - Provider: Bri Mackay, HEAVEN) 812 (Given - Provider: Dianne Dominique ams, RN) 400 mg, Oral, 3 TIMES DAILY, First dose on Tue07/21/18 at 2200, Until Discontinued, Routine insulin lispro (HumaLOG) VIAL injection 2 Units (COMPLETED) 235 (Given - Provider: Bri Mackay RN) 2 Units, Subcutaneous, ONCE, 1 dose, Tue07/21/18 at 2345, 1x for BG greater than 250, Routine insulin lispro (HumaLOG) VIAL injection 3-12 Units(Linked Group 1) 08 (Given - Provider: Dianne Maher RN)122 (Given [...] 5 mg 1929 (Not Given - Provider: Bir Mackay RN - Reason: Patient not available) [...] oxyCODONE (ROXICODONE) immediate release tablet 5 mg 1930 (Not Given - Provider: Victorina Mantilla RN [...] Discontinued, Routine pantoprazole (PROTONIX) tablet 40 mg 08 (Given - Provider: Dianne Maher RN) 40 mg, Oral, DAILY, First dose on 07/22/18 at 0900, Until Dis continued sertraline (ZOLOFT) tablet 50 mg 0813 (Given - Provider: Dianne Maher, RN) 50 mg, Oral, DAILY, First dose on Tue at 0900, Until Discontinued, Routine Continuous Medication Order 07/20/2018 07/21/2018 07/22/2018 sodium chloride 0.9% infusion 1925 (New Bag - Provider: Victorina Mantilla RN) 0600 (Stopped - Provider: Bri snowden RN) 100 mL/hr, at 100 mL/hr, Intravenous, CO NTINUOUS, Starting Tue07/21/18 at 1930, Until Tue07/22/18 at 0529 PRN Medication Order 07/20/2018 07/21/2018 07/22/2018 dextrose 50% intravenous solution 25-50 mL(Linked Group 3) 25-50 mL (12.5-25 g), Intravenous, EVERY 1 HOUR PRN, Starting Tue07/21/18 at 1913, Until Tue07/22/18 at 1448, Low blood sugar, For BG [...] dose o n Tue07/22/18 at 0945, Until Discontinued
Verify nicotine 21 [...]
Routine documented in this encounter Care Teams Food Service Representative Relationship Specialty Start Date End Date Joel Mccarthy MD PCP - General General Internal Medicine 06/29/18 [address] [place] [address] documented as of this encounter
--- OUTSIDE RECORDS SUMMARY | 2021-10-30 01:54 | XMS_ITS | Encounter Summary ---
:1960 Author Organization [facility] [place] [address] Care Team Providers Name Role Phone Danielle Rojas MD Primary Care Provider Reason for Referral Diagnostic Test (Routine) - Closed Specialty Diagnoses / Procedures Referred By Contact Refer red To Contact Radiology Diagnoses Right leg pain Kylah Redd, KIRK [facility] Scan Procedures CT Angiogram Aorta Lower Extremity Runoff [facility] [place] [address] [place] [address] Referral ID Status Reason Start Date Expiration Date Visits V isits Requested Authorized [id number] Closed Specialty 06/27/2018 08/25/2018 1 1 Service Requested Reason for Visit Auth/Cert Specialty Diagnoses / Procedures Referred By Contact Refer red To Contact Diagnoses Critical lower limb ischemia R CLI AND CELLULITIR LAEG Procedures EMERGENCY IPI Referral ID Status Reason Start Date Expiration Date Visits Requ ested Visits Authorized [id number] 1 1 Encounter Details Date Type Department Care Team Description 06/27/[address] [place] [facility] [place] Redd, Right leg pain [facility] [employer] [place] [address] VASCULAR SURGERY [place], [place] [address] Social History Tobacco Use Types Packs/Day Years Used Date Former Smoker 1 40 Smokeless Tobacco: Never Used Alcohol Use Standard Drinks/Week Comments Yes 4 (1 standard drink = 0.6 oz pure alcoho l) Sex Assigned at Date Recorded Not on file documented as of this encounter Medications at Time of Discharge Medication Sig Dispensed Refills Start Date End Date acetaminophen (TYLENOL) Take 2 tablets by 30 tablet 1 07/16 500 mg Tablet mouth every 6 hours as needed for Pain. aspirin 81 mg Tablet, Take 81 mg by 30 tablet 3 07/16/2016 Chewable mouth daily. atorvastatin (LIPITOR) 80 Take 1 tablet by 30 tablet 3 06/24 mg Tablet mouth every evening. Insulin Syringe-Needle 1 Box by 100 Syringe 3 07/16/2016 U-100 1 mL 31 gauge x Misc.(Non-Drug; 09/07 Syringe Combo Route) route 2 times daily. gabapentin (NEURONTIN) Take 400 mg by 0 400 mg Capsule mouth 3 times daily. FLUoxetine (PROZAC) 40 mg Take 80 mg by 0 Capsule mouth daily. metFORMIN (GLUCOPHAGE) Take 1 tablet by 60 tablet 12 019 07/20/2018 500 mg Tablet mouth 2 times daily (with meals). oxyCODONE (ROXICODONE) 10 Take 1 tablet by 40 tablet 0 03/0 11/201806/30/2018 mg Tablet mouth every 8 hours as needed (Pain). oxyCODONE (ROXICODONE) 10 Take 1 tablet by 40 tablet 0 03/0 11/201807/20/2018 mg Tablet mouth every 8 hours as needed (Pain). amoxicillin-clavulanate Take 1 tablet by 20 tablet 0 201806/30/2018 (AUGMENTIN) 875-125 mg mouth 2 times Tablet daily for 10 days. isosorbide mononitrate take 1 tablet by 0 017 07/25/2019 (IMDUR) 60 mg Tablet mouth once daily Sustained Release 24 hr furosemide (LASIX) 20 mg take 1 tablet by 0 08/0907/25/2019 Tablet mouth once daily lisinopril Take 1 tablet by 90 tablet 11 08/05/2016 07/25/19 20 (PRINIVIL;ZESTRIL) 5 mg mouth daily. TabletIndications: Essential hypertension meTOPROLOL tartrate Take 1 tablet by 60 tablet 12 07/16/2016 07/25/2019 (LOPRESSOR) 100 mg Tablet mouth 2 times daily. buPROPion (WELLBUTRIN SR Take 150 mg by 0 07/20/2018 OR ZYBAN) 150 mg Tablet mouth 2 times Sustained Release daily. glipiZIDE (GLUCOTROL) 10 Take 20 mg by 0 07/25/2019 mg Tablet mouth daily. metFORMIN (GLUCOPHAGE) Take 500 mg by 0 06/30/2018 500 mg Tablet mouth 2 times daily (with meals). omeprazole (PRILOSEC) 40 Take 40 mg by 0 07/25/2019 mg Capsule, Delayed mouth daily. Release(E.C.) documented as of this encounter Plan of Treatment Not on filedocumented as of this encounter Procedures Procedure Name Priority Date/Time Associated Diagnosis Comme nts CT ANGIOGRAM AORTA Routine 06/27/2018 2:58 PM Right leg pain R esults for this LOWER EXTREMITY EST procedure ar e in RUNOFF the results section. documented in this encounter Results CT Angiogram Aorta Lower Extremity Runoff (06/27/2018 2:58 PM EST) Anatomical Region Laterality Modality Abdomen Computed Tomography Specimen (Source) Anatomical Location Collection Method / Collectio n Time Received Time / Laterality Volume Impressions 06/27/2018 4:55 PM EST 1. 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 Severe common femoral ar ronal stenosis. ?? Anterior tibial artery: Widely patent. Posterior tibial artery: Patent to the l evel of the mid calf, then occluded Peroneal artery: Patent proximally, then occluded Dorsalis pedis: Widely patent. Plantar arteries: Reconstituted by colla teral vessels and patent 2. Left-sided: Common iliac artery, dist al moderate to severe stenosis. Patent anterior and posterior tibial arteries. The peroneal artery dissipates proximal to the ankle. Thank you for letting us participate in the care of this patient. For questions regarding this report, please contact e number below. ? Narrative 06/27/2018 4:55 PM EST EXAMINATION: CT ANGIOGRAM AORTA LOWER EXTREMITY RUNOFF CLINICAL HISTORY: R leg CLI, with ulcers , and rest pain TECHNIQUE: Helical CTA of the abdomen, p kaden and lower extremities was performed following intravenous administ ration of 150cc of Omnipaque 350. MPRs were performed. 3-D images were generate d on an independent workstation. COMPARISON: CT of the pelvis from 017 FINDINGS: VASCULAR FINDINGS Abdominal aorta: Extensive calcified and noncalcified mural plaque/thrombus with infrarenal abdominal aortic luminal narr owing. Celiac: No stenosis. SMA: No stenosis. Right renal artery: No stenosis. Left renal artery: No stenosis. JOSE: No stenosis. RIGHT LOWER EXTREMITY Common iliac artery: Distal moderate keyonna nosis External iliac artery: Occluded with dis ann reconstitution. The occlusion has increased in length compared to the prev ious study (it was focally occluded previously) Internal iliac artery: Proximal severe s tenosis Common femoral artery: Severe stenosis Superficial femoral artery: Proximal mod erate stenosis then overall patent without hemodynamically significant sten osis Profundus femoral artery: Widely patent. Popliteal artery: Widely patent Anterior tibial artery: Widely patent. Tibio-peroneal trunk: Widely patent. Posterior tibial artery: Patent to the l evel of the mid calf, then occluded Peroneal artery: Patent proximally, then occluded Dorsalis pedis: Widely patent. Plantar arteries: Reconstituted by colla teral vessels and patent LEFT LOWER EXTREMITY Common iliac artery: Distal moderate to severe stenosis External iliac artery: Multifocal modera te stenosis Internal iliac artery: Proximally occlud ed Common femoral artery: Widely patent. Superficial femoral artery: Widely paten t. Profundus femoral artery: Widely patent. Popliteal artery: Widely patent Anterior tibial artery: High origin from the popliteal artery. Widely patent to the ankle Tibio-peroneal trunk: Widely patent. Posterior tibial artery: Widely patent. Peroneal artery: Patent, but dissipates proximal to the ankle Dorsalis pedis: Widely patent. Plantar arteries: Widely patent. NON-VASCULAR FINDINGS Lower chest: Normal. Liver: None Bile ducts: Nondilated. Gallbladder: No calcified gallstones. No rmal caliber wall. Pancreas: Normal attenuation without janneth ann dilatation. Spleen: Normal. Kidneys: Normal Adrenals: ??Indeterminate 18 mm LEFT adr enal gland nodule. It is low density and may be an adenoma. The RIGHT adrenal gla nd is normal Urinary Bladder: Normal. Lymph Nodes: No enlarged lymph nodes. Bowel: Nondilated, no wall thickening. S table appearance of sigmoid colonic suture line. Peritoneum and mesentery: No ascites, fr ee air, or loculated fluid collection. No mesenteric inflammation. Osseous structures: No suspicious findin gs. Procedure Note Lupillo Rouse MD - 06/27/2018Form atting of this note might be different from the original. EXAMINATION: CT ANGIOGRAM AORTA LOWER EX TREMITY RUNOFF CLINICAL HISTORY: R leg CLI, with ulcers , and rest pain TECHNIQUE: Helical CTA of the abdomen, p kaden and lower extremities was performed following intravenous administ ration of 150cc of Omnipaque 350. MPRs were performed. 3-D images were generate d on an independent workstation. COMPARISON: CT of the pelvis from 017 FINDINGS: VASCULAR FINDINGS Abdominal aorta: Extensive calcified and noncalcified mural plaque/thrombus with infrarenal abdominal aortic luminal narr owing. Celiac: No stenosis. SMA: No stenosis. Right renal artery: No stenosis. Left renal artery: No stenosis. JOSE: No stenosis. RIGHT LOWER EXTREMITY Common iliac artery: Distal moderate keyonna nosis External iliac artery: Occluded with dis ann reconstitution. The occlusion has increased in length compared to the prev ious study (it was focally occluded previously) Internal iliac artery: Proximal severe s tenosis Common femoral artery: Severe stenosis Superficial femoral artery: Proximal mod erate stenosis then overall patent without hemodynamically significant sten osis Profundus femoral artery: Widely patent. Popliteal artery: Widely patent Anterior tibial artery: Widely patent. Tibio-peroneal trunk: Widely patent. Posterior tibial artery: Patent to the l evel of the mid calf, then occluded Peroneal artery: Patent proximally, then occluded Dorsalis pedis: Widely patent. Plantar arteries: Reconstituted by colla teral vessels and patent LEFT LOWER EXTREMITY Common iliac artery: Distal moderate to severe stenosis External iliac artery: Multifocal modera te stenosis Internal iliac artery: Proximally occlud ed Common femoral artery: Widely patent. Superficial femoral artery: Widely paten t. Profundus femoral artery: Widely patent. Popliteal artery: Widely patent Anterior tibial artery: High origin from the popliteal artery. Widely patent to the ankle Tibio-peroneal trunk: Widely patent. Posterior tibial artery: Widely patent. Peroneal artery: Patent, but dissipates proximal to the ankle Dorsalis pedis: Widely patent. Plantar arteries: Widely patent. NON-VASCULAR FINDINGS Lower chest: Normal. Liver: None Bile ducts: Nondilated. Gallbladder: No calcified gallstones. No rmal caliber wall. Pancreas: Normal attenuation without janneth ann dilatation. Spleen: Normal. Kidneys: Normal Adrenals: Indeterminate 18 mm LEFT adren al gland nodule. It is low density and may be an adenoma. The RIGHT adrenal gla nd is normal Urinary Bladder: Normal. Lymph Nodes: No enlarged lymph nodes. Bowel: Nondilated, no wall thickening. S table appearance of sigmoid colonic suture line. Peritoneum and mesentery: No ascites, fr ee air, or loculated fluid collection. No mesenteric inflammation. Osseous structures: No suspicious findin gs. IMPRESSION 1. RIGHT side: Occluded external iliac a rtery, increased in extent since the previous study. Severe common femoral ar ronal stenosis. Anterior tibial artery: Widely patent. Posterior tibial artery: Patent to the l evel of the mid calf, then occluded Peroneal artery: Patent proximally, then occluded Dorsalis pedis: Widely patent. Plantar arteries: Reconstituted by colla teral vessels and patent 2. Left-sided: Common iliac artery, dist al moderate to severe stenosis. Patent anterior and posterior tibial arteries. The peroneal artery dissipates proximal to the ankle. Thank you for letting us participate in the care of this patient. For questions regarding this report, please contact e number below. 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 IMG CT ORDERABLES documented in this encounter Visit Diagnoses Diagnosis Right leg pain Pain in limb documented in this encounter Administered Medications Inactive Administered Medications - up to 3 most recent administrations Medication Order MAR Action Action Date Dose Rate Site iohexol (OMNIPAQUE) 350 mg/mL Given 06/27/2018 3:01 PM EST 150 m Ls solution 0-200 mL 0-200 mL, Intravenous, ONCE PRN, 1 dose, Starting on Tue06/27/18 at 1501, Until Tue06/27/18 at 1501, Per Protocol, Warning Vesicant/Irritant Medication , Radiology Contrast, Routine documented in this encounter Care Teams Critical Power Install Technician Relationship Specialty Start Date End Date Danielle Rojas MD PCP - General Internal Medicine 07/21/16 06/28/[address] [place] [address] documented as of this encounter
--- OUTSIDE RECORDS SUMMARY | 2021-10-30 01:54 | XMS_ITS | Encounter Summary ---
:1960 [place] [address] Care Team Providers Name Role Phone Joel Mccarthy MD Primary Care Provider Encounter Details Date Type Department Care Team Description 07/14/2018 [facility] [place] [address] [place] [address] [phone] Social History Tobacco Use Types Packs/Day Years [...] on filedocumented in this encounter Care Teams Digital Sales Executive Relationship Specialty Start Date End Date Joel Mccarthy MD PCP - General General Internal Medicine 06/29/18 [address] [place] [address] documented as of this encounter
--- OUTSIDE RECORDS SUMMARY | 2021-10-30 01:54 | XMS_ITS | Encounter Summary ---
:1960 Author Organization [place] [phone] Care Team Providers Name Role Phone Danielle Rojas MD Primary Care Provider Reason for Visit Auth/Cert Specialty Diagnoses / Procedures Referred By Contact Refer red To Contact Diagnoses Critical lower limb ischemia R CLI AND CELLULITIR LAEG Procedures EMERGENCY IPI Referral ID Status Reason Start Date Expiration Date Visits Requ ested Visits Authorized [id number] 1 1 Encounter Details Date Type Department Care Team Description 06/28/2018 Surgery Main Operating Room Pooja Oneal MD [email or web address], [facility] ILIOFEMORAL W OR W/O [facility] DR PENN GRAFT ([facility] VASCULAR SURG PRECIOUS 19.86) [place] [id number] [phone] Social History Tobacco Use Types Packs/Day Years Used Date Former Smoker 1 40 Smokeless Tobacco: Never Used Alcohol Use Standard Drinks/Week Comments Yes 4 (1 standard drink = 0.6 oz pure alcoho l) Sex Assigned at Date Recorded Not on file documented as of this encounter Last Filed Vital Signs Vital Sign Reading Time Taken Comments Blood Pressure 107/64 06/28/2018 2:18 PM EST Pulse 70 06/28/2018 2:18 PM EST Temperature 36.6 ??C (97.9 ??F) 06/28/2018 2:18 PM EST Respiratory Rate 10 06/28/2018 2:18 PM EST Oxygen Saturation 98% 06/28/2018 2:18 PM EST Inhaled Oxygen Concentration - - Weight - - Height - - Body Mass Index - - documented in this encounter Discharge Summaries Yumiko Allen PA - 06/30/2018 9:44 AM EST Inpatient - Discharge Summary Patient Name: Bertin Lorenzo Patient Age: 57 y.o. Birthdate: 1960 Admit date: 06/27/2018 Discharge date and time: 06/30/2018 Attending Physician: Jhonny Oneal MD Discharge Diagnoses (Hospital Problems) and Secondary Diagnoses (Chronic Problems): Active Hospital Problems Diagnosis ??? Critical lower limb ischemia Resolved Hospital Problems No resolved problems to display. Active Non-Hospital Problems Diagnosis ??? Leg pain, bilateral ??? Aortoiliac occlusive disease ??? S/P CABG (coronary artery bypass graft) ??? Atherosclerosis of [place] artery of right lower extremity with intermittent claudication ?? Noted on aortogram done in [place] [facility] Jun 2016. 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 ??? Hypertension ??? Financial difficulties--- barrier to medication use ??? Coronary artery disease 06/2016: NSTEMI. Cath showing 3vD. Surgery recommended. ??? Non ST elevation LA due to severe 3vD-- awaiting for CABG Tuesday ??? Diabetes mellitus, type 2 ??? Hyperlipidemia ??? Osteoarthritis Operations/Major Procedures: 06/28/2018: Right iliofemoral endarterectomy with patch angioplasty, Right external iliac artery stent placement and balloon angioplasty (Epic [id number] proximal, Epic 9x80 distal, [place] angioplasty balloon [id number]) History of Presentation: 57 y.o. male with history of DM, CAD s/p CABG 2016, MELONIE not on nightly CPAP, diverticulitis s/p partial bowel resection who presents for pre-operative examination. Please see Kylah Redd's note for full details of the patient's specific problem. In brief, Mr. Lorenzo is a 57M with the below pmh who follows with the vascular surgery clinic for aortoiliac occlusive disease and now presents to clinic with 3-4 weeks of progressive rest pain and heel wound x 1wk. He notes claudication and severe right foot pain that now does not johanny with rest. He states the right heel woundand redness have been present for approximately one week. He denies f/c/cp/sob/n/v/d/c. Hospital Course: Pt admitted following the above procedure. Pt's recovery went well with good PO intake, adequate output and minimal pain relieved with PO meds. Pt ambulates independently and is cleared for d/c to home, declines VNA and will perform 2x/day dry gauze dressing changes to right heel. Pt's right groin incision remains c/d/i with dressing removed but steri-strips remain in place. He will follow-up in 2 weeks for a wound check. BP 130/75 Pulse 85 Temp 37 ??C (98.6 ??F) (Oral) Resp 17 SpO2 93% Physical Exam: GEN: Alert and appears stated age. Cooperative. In NAD. HEENT: Normocephalic and atraumatic. Neck: Supple, symmetric, trachea midline. CV: RRR. S1/S2 present. Pulm: No evidence of increased work of breathing. Clear to auscultation bilaterally. Abd: Soft, non-distended, non-tender to palpation. Skin: Color, texture, turgor normal. No rashes or lesions. Neuro: No focal deficits, gross sensory or motor abnormalities. Extremities: + R groin incision c/d/i - no surrounding erythema. 2 cracks in skin at heel. +AT doppler signal. Bilateral UE and LE warm and pink. No edema. Important Studies and Lab Data: Labs: none Studies: 06/30/2018 REYMUNDO Findings: ?? Right ?Pressure (mm Hg) ?? REYMUNDO ??Waveform ? TBI ?? Brachial Artery ?127 ? Dorsalis Pedis (Ankle) Artery ?34 ?0.25 ??Monophasic ? Posterior Tibial (Ankle) Artery ??45 ?0.33 ??Monophasic ? Great Toe ?15 ?0.11 ?? Left ? Pressure (mm Hg) ?? REYMUNDO ??Waveform ?? TBI ?? Brachial Artery ?135 ? Dorsalis Pedis (Ankle) Artery ?87 ?0.64 ??Biphasic ? Posterior Tibial (Ankle) Artery ??92 ? 0.68 ??Biphasic ? Great Toe ?74 ?0.55 ?? Interpretation: RIGHT: Severe lower extremity arterial occlusive disease. Significant improvement in the posterior tibial artery with no change in the dorsalis pedis artery or TBI when compared to previous exam performed on 06/27/2018. ?? LEFT: Moderate lower extremity arterial occlusive disease. No identifiable change when compared to the previous exam performed on 06/27/2018. Discharge Conditions/Prognosis: Good Discharge to: Home Discharge Medications: Your Medications New Medications Dose Details oxyCODONE 10 mg Tab Commonly known as: ROXICODONE Take 1 tablet by mouth every 8 hours as needed (Pain). 10 mg Quantity: 40 tablet Refills: 0 Continued medications, unchanged Dose Details acetaminophen 500 [...] 80 mg Quantity: 30 tablet Refills: 3 buPROPion 150 mg Sr12 Commonly known as: WELLBUTRIN SR or ZYBAN Take 150 mg by mouth 2 times daily. 150 mg Refills: 0 FLUoxetine 40 mg Cap Commonly known as: [...] gauge x 5/16 Syrg 1 Box by [facility].(Non-Drug; Combo Route) route 2 times daily. 1 [...] by mouth 2 times daily (with meals). Start taking on: 07/01/2018 500 mg Quantity: 60 tablet Refills: 12 meTOPROLOL 100 mg Tab Commonly known as: LOPRESSOR Take 1 tablet by mouth 2 times daily. 100 mg Quantity: 60 tablet Refills: 12 omeprazole 40 mg Cpdr Commonly known as: PriLOSEC Take 40 mg by mouth daily. 40 mg Refills: 0 STOPPED Medications amoxicillin-clavulanate 875-125 mg Tab Commonly known as: AUGMENTIN Updated Allergies/ADRs: Allergies Allergen Reactions ??? Effexor [Venlafaxine] Increased blood pressure Instructions Given to Patient at Discharge: Patient Instructions Patient Instructions You were admitted after having right femoral artery endarterectomy (plaque clean out) and stents placed. All of this went very well. Dr. Oneal will want you to be seen in approximately two weeks for a wound check. All of this will be ordered and sent to you in the mail. If for some reason you don't receive this within a week or so please call our office as your followup is very important. Continue daily aspirin and statin. Call your doctor if: Any fever, any drainage, redness or separation of your incision, increased painor change in temperature of your leg or around your incision Activity level: Up as tolerated Diet: Resume your previous regular diet. Prescription pain medications can cause severe constipation. Take over the counter stool softeners and laxatives (senna, colace, mirilax, etc.) as needed to ensure one bowel movement per day. Driving: No driving while taking prescription pain medications. Shower/Bath: You may take a shower with your dressings removed, in fact, you should shower daily. This is very important for healthy wound healing. Re-dress your incisions afterward as needed to keep them clean and dry. Do not soak or submerge your incision until cleared to do so at a follow up appointment. Wound Care: Re-dress with dry gauze twice daily and as needed to keep the area clean and dry. The steri-strips in your right groin will come off on their own over the next 1- 2 weeks. For any problems or questions please call [phone] KARI Griggs, telephone instrument supervisor Nurse Clinician For issues on weeknights after 5pm and weekends please call [phone] and ask for the Vascular Fellow computer operations technician. General Instructions None Future Appointments and Orders Future Appointments and Orders Future Appointments Provider Department Dept Phone 07/18/2018 10:00 AM Jhnony Oneal MD Vascular Surgery at [place] Arrive at: Intake Assessor Area 3V [phone] Discharge References/Attachments: Discharge References/Attachments None Electronically Signed By: KIT Sandoval 06/30/2018 documented in this encounter Discharge Instructions Patient InstructionsCamilla Shah RN - 06/28/2018 12:58 PM EST Patient Instructions You were admitted after having right femoral artery endarterectomy (plaque clean out) and stents placed. All of this went very well. Dr. Oneal will want you to be seen in approximately two weeks for a wound check. All of this will be ordered and sent to you in the mail. If for some reason you don't receive this within a week or so please call our office as your followup is very important. Continue daily aspirin and statin. Call your doctor if: Any fever, any drainage, redness or separation of your incision, increased painor change in temperature of your leg or around your incision Activity level: Up as tolerated Diet: Resume your previous regular diet. Prescription pain medications can cause severe constipation. Take over the counter stool softeners and laxatives (senna, colace, mirilax, etc.) as needed to ensure one bowel movement per day. Driving: No driving while taking prescription pain medications. Shower/Bath: You may take a shower with your dressings removed, in fact, you should shower daily. This is very important for healthy wound healing. Re-dress your incisions afterward as needed to keep them clean and dry. Do not soak or submerge your incision until cleared to do so at a follow up appointment. Wound Care: Re-dress with dry gauze twice daily and as needed to keep the area clean and dry. The steri-strips in your right groin will come off on their own over the next 1- 2 weeks. For any problems or questions please call [phone] KARI Griggs, telephone instrument supervisor Nurse Clinician For issues on weeknights after 5pm and weekends please call [phone] and ask for the Vascular Fellow computer operations technician. documented in this encounter Medications at Time [...] Take 1 tablet by 40 tablet 0 /11/201807/20/2018 mg Tablet mouth every 8 hours as needed (Pain). isosorbide mononitrate take 1 tablet by 0 [...] by 0 07/25/2019 mg Tablet mouth daily. omeprazole (PRILOSEC) 40 Take 40 mg by 0 07/25/2019 mg Capsule, Delayed mouth daily. Release(E.C.) documented as of this encounter Progress Notes Tiffany Churchill RN - 06/30/2018 11:41 AM EST Patient discharged to home. Reviewed after visit summary with patient and significant other. Patientaware of when and why to notify MD. Patient had no questions regarding discharge teaching. Patient aware of follow up appointments. Prescriptions to be picked up by patient. IVs DC'd. Pt belongings gathered. Pt left in personal clothing. Patient left to family vehicle at approximately 1200. Colleen Courtney - 06/29/2018 2:43 PM EST Nutrition Services - Education Note Bertin Lorenzo : 1960 AGE: 57 y.o. Patient Active Problem List Diagnosis Date Noted ??? Hospital-Critical lower limb ischemia 06/27/2018 ??? Leg pain, bilateral 12/15/2016 ??? Aortoiliac occlusive disease 12/15/2016 ??? S/P CABG (coronary artery bypass graft) 07/12/2016 ??? Atherosclerosis of [place] artery of right lower extremity with intermittent claudication 07/09/2016 ??? Hypertension 07/09/2016 Chronic ??? Financial difficulties--- barrier to medication use 07/09/2016 Chronic ??? Coronary artery disease 07/09/2016 Chronic ??? Non ST elevation LA due to severe 3vD-- awaiting for CABG Tuesday07/08/2016 ??? Diabetes mellitus, type 2 03/17/2015 Chronic ??? Hyperlipidemia 03/17/2015 Chronic ??? Osteoarthritis 03/17/2015 Chronic Reason for Nutrition Intervention: Diagnosis Diet Order: CHO Counting 60/60/75 Appetite: Good per patient Food allergies: NKFA Chewing/Swallowing difficulty: None per patient Ht Readings from Last 3 Encounters: 06/27/18 167.6 cm (5' 6) 12/14/16 167.6 cm (5' 6) 08/17/16 167.6 cm (5' 6) Wt Readings from Last 3 Encounters: 06/27/18 88.5 kg (195 lb) 12/14/16 81.2 kg (179 lb) 08/17/16 77.1 kg (170 lb) There is no height or weight on file to calculate BMI. Assessment: Patient seen regarding Diagnosis - Critical Lower limb ischemia. Patient verbalized understanding the importance of protein intake at this time. He reported a good appetite without difficulty chewing or swallowing. He follows a low carb and low sugar at home. Suggested also avoiding the intake of fat and sodium. Emphasized the importance of protein intake daily. Patient is ordering his meals daily. He consumed 100% of his lunch on 3/7 consisting on mac & cheese, tomato soup, apple juice and coffee. Patient denied the need of supplement at this time. Nutrition will continue to followup with patient weekly. Nutrition Plan: Continue current diet. Recommend Daily Multi Vitamins. Encourage good po intake. Monitor weight. Support and encouragement provided. Nutrition services to follow weekly thru hospital course unless consulted in the interim. ANAT Ba Pager # [phone] RodriguezMeliton MD - 06/29/2018 10:56 AM EST Vascular Surgery Progress Note Patient Name: Bertin Lorenzo Patient Age: 57 y.o. Birthdate: 1960 Admit date: 06/27/2018 Attending Physician: Jhonny Oneal MD PATIENT ID: Bertin Lorenzo is a 57 y.o. male with history of DM, CAD s/p CABG 2016, MELONIE not on nightly CPAP, diverticulitis s/p partial bowel resection who has been followed in the vascular surgery clinic for aortoiliac occlusive disease. He now presents to clinic with 3-4 weeks of progressive rest pain and heel wound x 1wk. CTA demonstrates occlusion of the right external iliac artery and severe BURR BENCH OPERATOR stenosis. Now s/p the below procedure. Operations This Hospitalization: 06/28 - R iliofemoral endarterectomy with patch graft and stenting for RLE CLI Subjective: -Does complain of some persistent numbness to toes. Otherwise offers no complaints -Pain well-controlled -Denies cp/sob/n/v -AVSS Objective: VITALS: T Temp: 37.7 ??C (99.9 ??F) Temp: [36.4 ??C (97.5 ??F)-37.7 ??C (99.9 ??F)] HR Heart Rate: 80 Heart Rate: [70-80] BP BP: 128/67 BP: (107-129)/(62-68) RR Resp: 16 Resp: [8-18] SpO2 SpO2: 93 % SpO2: [88 %-99 %] 24HR INS & OUTS: 06/28 700 - 06/29 07 In: 4046.3 [P.O.:1300; I.V.:2048.3] Out: 2680 [Urine:2430] PHYSICAL EXAM: General: alert, NAD, pleasant and cooperative with interview and exam HEENT: NC/AT Pulmonary: CTAB, no w/r/c Cardiovascular: RRR, no m/r/g Abdomen: obese, soft, NT, ND, normoactive BS Extremities: RLE with some discoloration at toes 2 cracks in skin at heel Slight surrounding erythema SILT throughout foot and calf Motor intact to EHL, FHL, APF, ADF Foot warm, +AT doppler signal LABORATORY: Recent Labs 06/29/18 0706 06/28/18 1440 06/27/18 1745 WBC 12.0* 8.9 10.6* HGB 12.5* 12.1* 13.9 HCT 38.8* 37.3* 41.9 PLATELET 188 199 217 Recent Labs 06/29/18 0706 06/28/18 1440 06/27/18 1745 NA 139 141 138 K 4.0 4.3 4.5 CL 100 104 99 CO2 26 23 25 BUN 13 21* 22* CREATININE 0.96 0.84 0.96 GLUCOSE -- -- 183 No results for input(s): AST, ALT, ALKPHOS, BILITOT, BILIDIR in the last 168 hours. Recent Labs 06/29/18 0706 06/28/18 1440 06/27/18 1745 CALCIUM 8.8 8.0* 9.7 Recent Labs 06/27/18 1745 PT 11.9 PTT 27 INR 1.0 Recent Labs 06/28/18 1141 PHART 7.42 [id number] 35 PO2ART 136* [id number] 22.5 RADIOLOGY: None new ASSESSMENT/PLAN: Bertin Lorenzo is a 57 y.o. male with history of DM, CAD s/p CABG 2017, MELONIE not on nightly CPAP, diverticulitis s/p partial bowel resection who has been followed in the vascular surgery clinic for aortoiliac occlusive disease. He presented to clinic with 3-4 weeks of progressive rest pain and heel wound x 1wk. CTA demonstrates occlusion of the right external iliac artery and severe BURR BENCH OPERATOR stenosis. Now s/p R iliofemoral endarterectomy with patch graft and stenting for RLE CLI. -discontinue tobin -OOB today -stop abx -PT/OT -ABIs tomorrow -anticipate dc home tomorrow pending PT evaluation Meliton Rodriguez MD 06/29/18 Pager: [phone] Darlin Rice RN - 06/29/2018 3:09 AM EST Pt had a good night. Pt reported feeling a panic attack coming on; pt given ativan once. Pt A/O. Pt did not sleep very much; Says at baseline he doesn't get much sleep. Urine output is adequate, clear yellow. No BM. VSS; afebrile. Pulses palpable in all 4 ex. Pain well controlled w/ one dose oxy and scheduled meds. Meliton Benitez MD - 06/28/2018 5:14 PM EST Vascular Surgery Progress Note Patient Name: Bertin Lorenzo Patient Age: 57 y.o. Birthdate: 1960 Admit date: 06/27/2018 Attending Physician: Jhonny Oneal MD PATIENT ID: Bertin Lorenzo is a 57 y.o. male with history of DM, CAD s/p CABG 2016, MELONIE not on nightly CPAP, diverticulitis s/p partial bowel resection who has been followed in the vascular surgery clinic for aortoiliac occlusive disease. He now presents to clinic with 3-4 weeks of progressive rest pain and heel wound x 1wk. CTA demonstrates occlusion of the right external iliac artery and severe BURR BENCH OPERATOR stenosis. Now s/p the below procedure. Operations This Hospitalization: 06/28 - R iliofemoral endarterectomy with patch graft and stenting for RLE CLI Subjective: -Doing well post-operatively -Offers no complaints -Pain well-controlled -Denies cp/sob/n/v -AVSS Objective: VITALS: T Temp: 36.8 ??C (98.2 ??F) Temp: [36.4 ??C (97.5 ??F)-36.8 ??C (98.2 ??F)] HR Heart Rate: 79 Heart Rate: [70-96] BP BP: 120/64 BP: (107-137)/(62-76) RR Resp: 12 Resp: [8-16] SpO2 SpO2: 94 % SpO2: [88 %-99 %] 24HR INS & OUTS: 06/27 07 - 06/28 0700 In: 843.6 [P.O.:415; I.V.:392.1] Out: 1005 [Urine:1005] PHYSICAL EXAM: General: alert, NAD, pleasant and cooperative with interview and exam HEENT: NC/AT Pulmonary: CTAB, no w/r/c Cardiovascular: RRR, no m/r/g Abdomen: obese, soft, NT, ND, normoactive BS Extremities: RLE with some discoloration at toes 2 cracks in skin at heel Slight surrounding erythema SILT throughout foot and calf Motor intact to EHL, FHL, APF, ADF Foot warm, +AT doppler signal LABORATORY: Recent Labs 06/28/18 1440 06/27/18 1745 WBC 8.9 10.6* HGB 12.1* 13.9 HCT 37.3* 41.9 PLATELET 199 217 Recent Labs 06/28/18 1440 06/27/18 1745 06/27/18 0948 NA 141 138 -- K 4.3 4.5 -- CL 104 99 -- CO2 23 25 -- BUN 21* 22* -- CREATININE 0.84 0.96 1.00 GLUCOSE -- 183 -- No results for input(s): AST, ALT, ALKPHOS, BILITOT, BILIDIR in the last 168 hours. Recent Labs 06/28/18 1440 06/27/18 1745 CALCIUM 8.0* 9.7 Recent Labs 06/27/18 1745 PT 11.9 PTT 27 INR 1.0 Recent Labs 06/28/18 1141 PHART 7.42 [id number] 35 PO2ART 136* [id number] 22.5 RADIOLOGY: CTA Aorta LE Runoff 06/27/18 IMPRESSION 1. RIGHT side: Occluded external iliac artery, increased in extent since the previous study. Severe common femoral artery stenosis. Anterior tibial artery: Widely patent. Posterior tibial artery: Patent to the level of the mid calf, then occluded Peroneal artery: Patent proximally, then occluded Dorsalis pedis: Widely patent. Plantar arteries: Reconstituted by collateral vessels and patent ?? 2. Left-sided: Common iliac artery, distal moderate to severe stenosis. Patent anterior and posterior tibial arteries. The peroneal artery dissipates proximal to the ankle. CXR 06/27/18 IMPRESSION No acute cardiopulmonary disease. ASSESSMENT/PLAN: Bertin Lorenzo is a 57 y.o. male with history of DM, CAD s/p CABG 2017, MELONIE not on nightly CPAP, diverticulitis s/p partial bowel resection who has been followed in the vascular surgery clinic for aortoiliac occlusive disease. He presented to clinic with 3-4 weeks of progressive rest pain and heel wound x 1wk. CTA demonstrates occlusion of the right external iliac artery and severe BURR BENCH OPERATOR stenosis. Now s/p R iliofemoral endarterectomy with patch graft and stenting for RLE CLI. -Doing well post-operatively -Pain well-controlled -Hemodynamically stable -NVI -present AT doppler signal -Bedrest o/n -ADAT Meliton Rodriguez MD 06/28/18 Pager: [phone] Yoav Shultz RN - 06/28/2018 4:04 PM EST Pt back in room, settled, after report received from HYDRO GENERATION MANAGER. R groin dressing CDI. Soft, tender. Pulses on R foot as follows: DP +2, doppler PT absent, doppler. Tobin in place. Pt on bedrest until discontinued at this time. Denies nausea, reports aches to RLE. Resuming care of pt, following the plan of care. Gisela Dubois RN - 06/28/2018 2:33 PM EST Pt arrived to PACU, attached to monitors, alarms on, settings appropriate for pt. No nausea or pain noted. No additional length of stay required per vascular fellow. 1433 EKG done at bedside. [address] Ryan. 1448 labs sent. 1500 pt tolerating sips of water well. Pt meets recovery criteria at 1530. Report called to HEAVEN Cason. 1546 vascular corporate development intern at bedside for postop check. Yoav Shultz RN - 06/28/2018 10:03 AM EST Pt off the floor to OR for planned procedure. Will resume care on return to unit. Meliton Rodriguez MD - 06/28/2018 7:49 AM EST Vascular Surgery Progress Note Patient Name: Bertin Lorenzo Patient Age: 57 y.o. Birthdate: 1960 Admit date: 06/27/2018 Attending Physician: Jhonny Oneal MD PATIENT ID: Bertin Lorenzo is a 57 y.o. male with history of DM, CAD s/p CABG 2016, MELONIE not on nightly CPAP, diverticulitis s/p partial bowel resection who has been followed in the vascular surgery clinic for aortoiliac occlusive disease. He now presents to clinic with 3-4 weeks of progressive rest pain and heel wound x 1wk. CTA demonstrates occlusion of the right external iliac artery and severe BURR BENCH OPERATOR stenosis. Plan for right iliac stent and BURR BENCH OPERATOR endarterectomy. Operations This Hospitalization: none Subjective: -NAEON -Continues with rest pain. Well controlled on current oral regimen. -Offers no other complaints -Denies nausea, vomiting, chest pain or shortness of breath -Has been NPO since NM in anticipation of OR today Objective: VITALS: T Temp: 36.7 ??C (98.1 ??F) Temp: [36.7 ??C (98.1 ??F)-36.9 ??C (98.4 ??F)] HR Heart Rate: 80 Heart Rate: [77-97] BP BP: 128/76 BP: (115-134)/(76-85) RR Resp: 16 Resp: [16-18] SpO2 SpO2: 98 % SpO2: [91 %-98 %] 24HR INS & OUTS: 06/27 0701 - 06/28 0700 In: 843.6 [P.O.:415; I.V.:392.1] Out: 1005 [Urine:1005] PHYSICAL EXAM: General: alert, NAD, pleasant and cooperative with interview and exam HEENT: NC/AT Pulmonary: CTAB, no w/r/c Cardiovascular: RRR, no m/r/g Abdomen: obese, soft, NT, ND, normoactive BS Extremities: RLE with some discoloration at toes 2 cracks in skin at heel Slight surrounding erythema SILT throughout foot and calf Motor intact to EHL, APF, ADF, flickers FHL Foot warm, no palpable DP/PT pulses LABORATORY: Recent Labs 06/27/18 1745 WBC 10.6* HGB 13.9 HCT 41.9 PLATELET 217 Recent Labs 06/27/18 1745 06/27/18 0948 NA 138 -- K 4.5 -- CL 99 -- CO2 25 -- BUN 22* -- CREATININE 0.96 1.00 GLUCOSE 183 -- No results for input(s): AST, ALT, ALKPHOS, BILITOT, BILIDIR in the last 168 hours. Recent Labs 06/27/18 1745 CALCIUM 9.7 Recent Labs 06/27/18 1745 PT 11.9 PTT 27 INR 1.0 No results for input(s): PHART, JMH1KKS, PO2ART, LKL7VZP in the last 168 hours. RADIOLOGY: CTA Aorta LE Runoff 06/27/18 IMPRESSION 1. RIGHT side: Occluded external iliac artery, increased in extent since the previous study. Severe common femoral artery stenosis. Anterior tibial artery: Widely patent. Posterior tibial artery: Patent to the level of the mid calf, then occluded Peroneal artery: Patent proximally, then occluded Dorsalis pedis: Widely patent. Plantar arteries: Reconstituted by collateral vessels and patent ?? 2. Left-sided: Common iliac artery, distal moderate to severe stenosis. Patent anterior and posterior tibial arteries. The peroneal artery dissipates proximal to the ankle. CXR 06/27/18 IMPRESSION No acute cardiopulmonary disease. ASSESSMENT/PLAN: Bertin Lorenzo is a 57 y.o. male with history of DM, CAD s/p CABG 2017, MELONIE not on nightly CPAP, diverticulitis s/p partial bowel resection who has been followed in the vascular surgery clinic for aortoiliac occlusive disease. He presented to clinic with 3-4 weeks of progressive rest pain and heel wound x 1wk. CTA demonstrates occlusion of the right external iliac artery and severe BURR BENCH OPERATOR stenosis. Plan for right iliac stent and BURR BENCH OPERATOR endarterectomy today. -No change in symptoms -Has been NPO since MN -Pre-op labs completed -Operative site marked, consent obtained -Plan for surgery today as scheduled Meliton Rodriguez MD 06/28/18 Pager: [phone] Jhonny Oneal MD - 06/27/2018 6:53 PM EST Vascular Surgery Patient seen on 06/27/18 in clinic with Kylah Redd. Briefly, this is a 57yo diabetic smoker with known history of PVD, now with new painful fissures in his right heel. ROS significant for CAD s/p CABG in 2016. No recent CP or SOB. Denies history of stroke, TIA, or amaurosis fugax. Has DM on insulin. Is a current smoker and smokes about 1ppd. PMH: CAD s/p CABG '17, HTN, HLD, DM All: NKDA Medications include: asa, imdur, lisinopril, lopressor, lasix, lipitor, prilosec, insulin, metformin, glipizide, wellbutrin, neurontin, prozac Tob: current, 1ppd. On exam, patient in NAD. Unable to palpate right femoral pulse. Fissures on his right heel. No surrounding erythema, drainage, or fluctuance. REYMUNDO 0.34/0.63 with toe pressures of 9/90 CTA with BLE runoff reviewed. 57yo diabetic smoker and known PVD, now with CLI. CTA showed occlusion of right iliac artery and BURR BENCH OPERATOR disease. Will plan for admission and OR on 06/28/18 for right femoral endarterectomy/iliac stent placement. May need further distal revascularization. Off-loading with Prevalon boots. Jhonny Oneal MD Mayela Whitmore RN - 06/27/2018 4:54 PM EST Patient arrived to unit A+Ox4. VSS. Denies chest pain, SOB, N/V. MD notified for pain medication. L lower extremity pulses + with doppler. Oriented to room and call light. Will continue to monitor documented in this encounter H&P Notes Meliton Rodriguez MD - 06/27/2018 4:47 PM EST PRE-OPERATIVE HISTORY AND PHYSICAL for ADMISSION, OBSERVATION OR PROCEDURE Date of : 1960 Age: 57 y.o. PCP: Danielle Rojas MD Presenting Diagnosis/Chief Complaint: right foot pain History of Present Illness: Bertin Lorenzo is a 57 y.o. male with history of DM, CAD s/p CABG 2016, MELONIE not on nightly CPAP, diverticulitis s/p partial bowel resection who presents for pre-operative examination. Please seeKylah Redd's note for full details of the patient's specific problem. In brief, Mr. Lorenzo is a57M with the below pmh who follows with the vascular surgery clinic for aortoiliac occlusive diseaseand now presents to clinic with 3-4 weeks of progressive rest pain and heel wound x 1wk. He notes claudication and severe right foot pain that now does not johanny with rest. He states the right heel wound and redness have been present for approximately one week. He denies f/c/cp/sob/n/v/d/c. PMHx: Patient Active Problem List Diagnosis Code ??? Diabetes mellitus, type 2 E11.9 ??? Hyperlipidemia E78.5 ??? Osteoarthritis M19.90 ??? Non ST elevation LA due to severe 3vD-- awaiting for CABG Tuesday I21.4 ??? Atherosclerosis of [place] artery of right lower extremity with intermittent claudication I70.211 ??? Hypertension I10 ??? Financial difficulties--- barrier to medication use Z59.8 ??? Coronary artery disease I25.10 ??? S/P CABG (coronary artery bypass graft) Z95.1 ??? Leg pain, bilateral M79.604, M79.605 ??? Aortoiliac occlusive disease I74.09 ??? Critical lower limb ischemia I99.8 No past medical history on file. Past Surgical History: Procedure Laterality Date ??? PRO CABG, ARTERIAL, TWO N/A 07/12/2016 @CABG, USING 2 CORONARY ARTERIAL GRAFTS (WRVU 39.88) performed by Valentino Arredondo MD at [facility] MAIN OR ??? PRO CABG, ARTERY-VEIN, TWO N/A 07/12/2016 @CABG, TWO VENOUS GRAFTS & ARTERIAL GRAFT (WRVU 7.93) performed by Valentino Arredondo MD at [facility] MAIN OR ??? PRO ENDOSCOPY W/VIDEO-ASST VEIN HARVEST, CABG Right 07/12/2016 ENDOSCOPIC HARVEST VEIN(S) FOR CABG (WRVU 0.31) performed by Valentino Arredondo MD at [facility] MAIN OR Home Medications: Medications Prior to Admission Medication Sig Dispense Refill Last Dose ??? amoxicillin-clavulanate (AUGMENTIN) 875-125 mg Tablet Take 1 tablet by mouth 2 times daily for 10 days. 20 tablet 0 ??? isosorbide mononitrate (IMDUR) 60 mg Tablet Sustained Release 24 hr take 1 tablet by mouth once daily 0 Taking ??? furosemide (LASIX) 20 mg Tablet take 1 tablet by mouth once daily 0 Taking ??? lisinopril (PRINIVIL;ZESTRIL) 5 mg Tablet Take 1 tablet by mouth daily. 90 tablet 11 Taking ??? acetaminophen (TYLENOL) 500 mg Tablet Take 2 tablets by mouth every 6 hours as needed for Pain. 30 tablet 1 Taking ??? aspirin 81 mg Tablet, Chewable Take 81 mg by mouth daily. 30 tablet 3 Taking ??? atorvastatin (LIPITOR) 80 mg Tablet Take 1 tablet by mouth every evening. 30 tablet 3 Taking ??? meTOPROLOL tartrate (LOPRESSOR) 100 mg Tablet Take 1 tablet by mouth 2 times daily. 60 tablet 12Taking ??? Insulin Syringe-Needle U-100 1 mL 31 gauge x 5/16 Syringe 1 Box by [facility].(Non-Drug; Combo Route) route 2 times daily. 100 Syringe 3 Taking ??? buPROPion (WELLBUTRIN SR OR ZYBAN) 150 mg Tablet Sustained Release Take 150 mg by mouth 2 times daily. Taking ??? gabapentin (NEURONTIN) 400 mg Capsule Take 400 mg by mouth 3 times daily. Taking ??? glipiZIDE (GLUCOTROL) 10 mg Tablet Take 20 mg by mouth daily. Taking ??? metFORMIN (GLUCOPHAGE) 500 mg Tablet Take 500 mg by mouth 2 times daily (with meals). Taking ??? omeprazole (PRILOSEC) 40 mg Capsule, Delayed Release(E.C.) Take 40 mg by mouth daily. Taking ??? FLUoxetine (PROZAC) 40 mg Capsule Take 80 mg by mouth daily. Taking Allergies: No Known Allergies Family History: Non contributory No family history on file. Social History: Alcohol: occasional Tobacco: current 1ppd smoker Drug: occasional smoked marijuana Review of Systems: complete 10 system ROS performed and is negative except as noted in the HPI Physical Exam: VITALS: Temperature Temp: 36.9 ??C (98.4 ??F) Heart Rate Heart Rate: 92 Blood Pressure BP: 115/77 Respiratory Rate SpO2 SpO2: 97 % No intake/output data recorded. General: alert, NAD, pleasant and cooperative with interview and exam HEENT: NC/AT Pulmonary: CTAB, no w/r/c Cardiovascular: RRR, no m/r/g Abdomen: obese, soft, NT, ND, normoactive BS Extremities: RLE with some discoloration at toes 2 cracks in skin at heel Slight surrounding erythema SILT throughout foot and calf Motor intact to EHL, APF, ADF, flickers FHL Foot warm, no palpable DP/PT pulses Studies: REYMUNDO's Right ?Pressure (mm Hg) ?? REYMUNDO ??Waveform ? TBI ?? Brachial Artery ?150 ? Dorsalis Pedis (Ankle) Artery ?54 ?0.34 ??Monophasic ? Posterior Tibial (Ankle) Artery ??0 ? 0.00 ??Occluded ? Great Toe ?9 ? 0.06 ? Left ? Pressure (mm Hg) ?? REYMUNDO ??Waveform ?? TBI ?? Brachial Artery ?157 ? Dorsalis Pedis (Ankle) Artery ?90 ?0.57 ??Biphasic ? Posterior Tibial (Ankle) Artery ??99 ?0.63 ??Biphasic ? Great Toe ?90 ?0.57 ? Interpretation: ?? RIGHT: Severe lower extremity arterial occlusive disease identified at rest. The posterior tibial artery is occluded at the ankle by duplex. The dorsalis pedis artery is occluded on the dorsum of the mid foot by duplex and is patent at the level of the ankle with monophasic Doppler waveforms and low velocities (8 cm/s). Significant deterioration in PT REYMUNDO and toe-brachial index with no significant change in DP REYMUNDO compared to the previous exam on 12/14/2016. ?? LEFT: Moderate lower extremity arterial occlusive disease identified at rest. Significant deterioration in ABIs with an additional decrease in the toe-brachial index when compared to the previous exam on 12/14/2016. CTA Aorta LE Runoff Read pending Assessment and Plan: 57 y.o. male with the above problem, plan to proceed to OR tomorrow with Dr. Oneal for right iliac stent and BURR BENCH OPERATOR endarterectomy. Meliton Rodriguez MD documented in this encounter Miscellaneous Notes Plan of Care - Austin Grove RN - 06/30/2018 2:42 AM EST Problem: Patient Care Overview Goal: Plan of Care Review Outcome: Ongoing (Interventions Implemented as Appropriate) 06/28/18 0235 06/29/18 2100 Coping/Psychosocial Plan Of Care Reviewed With -- patient Plan of Care Review Progress no change -- OUTCOME EVALUATION NOTE: OUTCOME SUMMARY: Pt had a uneventful night. AxO 4 RA.Pain managed with PRN Oxycodone.Blood sugar in 200's by fingerstick.Notified . New order given. See MAR for insulin coverage. Adequate amount of UOP. Ambulates Independently.Will continue to monitor. PLAN MOVING FORWARD: REYMUNDO possible tomorrow. PT evaluation. INDIVIDUALIZED FALL PREVENTION INTERVENTIONS: Patient-specific fall risk factors per assessment: [current deficits]: Pain Assistance [level of assistance required for transfers and ambulation]: Independent. Supervision [direct monitoring required during toileting and ADLs]: Hands on. Surveillance [continuous indirect monitoring]: Safety rounding done, call garcia within reach, lights adjusted. Patient-specific fall prevention interventions for sensory deficits provided, if applicable: [X] N/A CPG GOAL OUTCOME EVALUATION: Ongoing. Goal: Fall Prevention-Safe Patient Handling Outcome: Ongoing (Interventions Implemented as Appropriate) 06/29/18 2100 Oneal Fall Risk History of Falling 0 Secondary Diagnosis 15 Ambulatory Aids 15 Intravenous Therapy/Heparin/Saline Lock 20 Gait/Transferring 0 Mental Status 0 Score 50 OTHER Oneal Fall Risk High Restraint Interventions Safety Promotion/Fall Prevention activity supervised Positioning Body Position independent Activity Activity Type ambulated in alonzo Activity Assistance Provided assistance, 1 person Assistive Device Utilized none Goal: Infection Control Outcome: Ongoing (Interventions Implemented as Appropriate) 06/29/18 2100 Safety Interventions Isolation Precautions standard precautions maintained Infection Prevention environmental surveillance performed Coping Strategies Supportive Measures active listening utilized Goal: Interdisciplinary Rounds/Family Conf Outcome: Ongoing (Interventions Implemented as Appropriate) 06/28/18 0235 Interdisciplinary Rounds/Family Conf Participants nursing;patient Plan of Care - Arthur Fisher RN - 06/29/2018 6:57 PM EST Problem: Patient Care Overview Goal: Plan of Care Review Outcome: Ongoing (Interventions Implemented as Appropriate) 06/28/18 0235 06/29/18 0800 Coping/Psychosocial Plan Of Care Reviewed With -- patient Plan of Care Review Progress no change -- OUTCOME EVALUATION NOTE: OUTCOME SUMMARY: Patient Bertin Hood) had a good day. Patient is producing adequate amounts of urine. Patient was given Oxycodone 10mg @ 0916 and 1436 for pain with good effect. Blood Sugars today were 120, 171,and 217. LSC, HRR, and no complaints at this time. Patient will discharge tomorrow pending PT evaluation. PLAN MOVING FORWARD: Continue to monitor I/O's, encourage ambulation, discharge tomorrow pending INDIVIDUALIZED FALL PREVENTION INTERVENTIONS: Patient-specific fall risk factors per assessment: [current deficits]: Generalized weakness, IV's, pain medication Assistance [level of assistance required for transfers and ambulation]: SBA w/walker Supervision [direct monitoring required during toileting and ADLs]: Eyes On Surveillance [continuous indirect monitoring]: Masimo, Hourly Rounding, Call Garcia Within Reach Patient-specific fall prevention interventions for sensory deficits provided, if applicable: N/A CPG GOAL OUTCOME EVALUATION: Goal: Fall Prevention-Safe Patient Handling Outcome: Ongoing (Interventions Implemented as Appropriate) 06/29/18 0800 06/29/18 1222 Oneal Fall Risk History of Falling 0 -- Secondary Diagnosis 15 -- Ambulatory Aids 15 -- Intravenous Therapy/Heparin/Saline Lock 20 -- Gait/Transferring 0 -- Mental Status 0 -- Score 50 -- OTHER Oneal Fall Risk High -- Restraint Interventions Safety Promotion/Fall Prevention activity supervised;nonskid shoes/slippers when out of bed;safety round/check completed -- Positioning Body Position independent -- Activity Activity Type -- ambulated in alonzo Activity Assistance Provided -- assistance, 1 person Assistive Device Utilized -- none Goal: Infection Control Outcome: Ongoing (Interventions Implemented as Appropriate) 06/29/18 0800 Safety Interventions Isolation Precautions standard precautions maintained Infection Prevention environmental surveillance performed;rest/sleep promoted;single patient room provided Coping Strategies Supportive Measures active listening utilized;counseling provided;decision- making supported;goal setting facilitated;positive reinforcement provided;problem solving facilitated;relaxation techniques promoted;self-care encouraged;self-reflection promoted;self-responsibility promoted;verbalization of feelings encouraged Goal: Interdisciplinary Rounds/Family Conf Outcome: Ongoing (Interventions Implemented as Appropriate) 06/28/18 0235 Interdisciplinary Rounds/Family Conf Participants nursing;patient Initial Assessments - Gisela Amezcua RN - 06/29/2018 10:53 AM EST Office of Care Management Assessment Medical record reviewed. Plan of care and patient status discussed with direct care RN and/or Care Team in multidisciplinary rounds. Screen[age] y.o. male here for: Pt post op from 06/28/18 for: Procedure: 1. Right iliofemoral endarterectomy with patch angioplasty 2. Right external iliac artery stent placement and balloon angioplasty (Epic [id number] proximal, Epic 9x80 distal, [place] angioplasty balloon [id number]). . Present on Admission: ??? Critical lower limb ischemia Patient has not been admitted to a hospital within the last 30 days. Patient receiving hospital care under Inpatient status. Admission order reviewed. Primary Insurance on file: [employer] [facility] Secondary Insurance on file: N/A Primary care provider on file: Danielle Rojas MD [phone] Advance Directives: Does not have. Discussed and provided advance directive booklet and forms, patient will discuss with family at a later time. Full Code Patient???s Functional Status: Independent. 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 He is currently on Disability, plans to retire soon. They have a dog and cat. Living Situation: Pt lives in a mobile home with his girl friend Madyson Sol who is retired. [address] [facility] [address] [facility] [address] Supports: Pt is well supported by Madyson, kevin Uriosteguivargas and step son. Assessment: Patient with no apparent RNCM/SW needs at this time. No housing, transportation, insurance, resources concerns identified at this time. Supports in place to achieve a safe post-hospital transition. No identified barriers to accessing necessary care and/or follow-up after discharge. Plan: Patient to d/c to home via private car w when medically ready. delivery crew member/Skein Yarn Drier will continue to follow patient???s progress and remain available if situation changes for coordination of care, psychosocial support and/or discharge planning. Gisela Amezcua RN [address] Licensed Direct Entry Midwife Pager: [phone] Op Note - Mary Jane Cash MD - 06/28/2018 2:36 PM EST [facility] [place] Patient Name: Bertin Lorenzo : [id number] MR#: [id number] Case Date: 06/28/2018 Surgeon: Surgeon(s) and Role: * Jhonny Oneal MD - Primary * Mary Jane Cash MD - Fellow Preoperative diagnosis: CLI Postoperative diagnosis: CLI Procedure: 1. Right iliofemoral endarterectomy with patch angioplasty 2. Right external iliac artery stent placement and balloon angioplasty (Epic [id number] proximal, Epic 9x80 distal, [place] angioplasty balloon [id number]) Procedure(s) (LRB): @ENDARTERECTOMY, ILIOFEMORAL W OR W/O PATCH GRAFT (WRVU 19.86) (Right) REVSC OPN\PRQ ILIAC ART W\STNT PLMT & ANGIOP SAME VSL (WRVU 10) (Right) Anesthesia: General Estimated Blood Loss: 250 mL Specimens removed during surgery: None Drains: Surgical Closure: Primary Closure - skin incision is completely closed without any wires, kanwal, drains or other devices Disposition: awakened from anesthesia, extubated and taken to the recovery room in a stable condition, having suffered no apparent untoward event. Condition: doing well without problems (Please see the Surgical Encounter Summary for any Implant and Specimen details pertinent to this patient.) HPI/Surgical Indications: Bertin Lorenzo is a 57 y.o. male with history of DM, CAD s/p CABG 2017, MELONIE not on nightly CPAP, diverticulitis s/p partial bowel resection who presents for pre-operative examination. Please see Kylah Redd's note for full details of the patient's specific problem. In brief, Mr. Lorenzo is a 57M with the [facility] who follows with the vascular surgery clinic for aortoiliac occlusive disease and now presents to clinic with 3-4 weeks of progressive rest pain and heel wound x 1wk. He notes claudication and severe right foot pain that now does not johanny with rest. CTA confirmed Right External iliac occlusion and right BURR BENCH OPERATOR severe stenosis. Today we will perform right BURR BENCH OPERATOR endarterectomy patch angioplasty and right EIA stent placement. Procedure Description: After informed consent was obtained the patient was brought back to the operating room and placed supine on the OR table. General anesthesia was induced and the patient was intubated with an ETT. Additional support lines (tobin, arterial line, PIVs) were placed. Preoperative antibiotics were given. A timeout was performed. Attention was then turned to the patient's RIGHT groin which was prepped and draped in the standardfashion. A longitudinal incision was made overlying the femoral artery beginning at the level of theinguinal ligament. Electrocautery was used to dissect down through the subcutaneous tissues to the femoral sheath. The distal external iliac artery, circumflex arteries, common femoral artery, profundaartery and superficial femoral arteries were each circumferentially dissected and encircled with vessel loops. Systemic heparin was administered. The profunda and superficial femoral arteries were clamped. An 11-blade scalpel and Pott's scissors were then used to create an arteriotomy along the anterior surface of the common femoral artery. The distal external iliac artery, common femoral artery, andprofunda femoral artery were endarterectomized. The superficial femoral artery was eversion endarterectomized. Next, patch angioplasty was performed using bovine pericardial patch secured in a running f ashion with 6-0 prolene. This was done circumferentially, and the artery was flushed free of debris prior to final closure. A 22-gauge needle was used to access the common femoral artery a Bryan wire was advanced through theneedle followed by a micropuncture sheath and stiff glide wire. The micropuncture sheath was exchanged for a [id number] sheath. Diagnostic angiogram demonstrated long-segment EIA occlusion. Two external iliac stents were placed (Epic 32t86dt proximal, Epic 9x80 distal). The stents were post dilated with a [place] angioplasty balloon [id number]. Completion angiogram demonstrated excellent stent placement and brisk inflow. There was a strong palpable femoral pulse following stent and balloon angioplasty. Ofnote the SFA had a short segment proximal stenosis and sluggish flow through the SFA. We made the decision to attempt balloon angioplasty of the SFA. First the BURR BENCH OPERATOR sheath access site was closed with 6-0 interrupted prolene, then micropuncture access was obtained in the proximal BURR BENCH OPERATOR, however we were unable to pass a Bryan wire down the SFA. At this point further attempts were aborted and the micropuncture needle was removed. The hole was closed with 6-0 prolene. 8x40). The RIGHT groin was irrigated and hemostasis was achieved with electrocautery and surgicel wrapped gel foam, and protamine was given. It was closed in layers with 2-0 and 3-0 interrupted vicryl sutures and the skin reapproximated with running 4-0 monocryl. The incision was cleansed and dressed with steristrips, dry gauze and Tegaderm. The patient was awoken, extubated and taken to PACU in stable condition. All counts were correct. Dr. Oneal was present and scrubbed for the entire procedure. Infection Bundle used? Zosyn Attestation: Case Date: 06/28/2018 Mary Jane Cash MD 06/28/2018 Associated attestation - Jhonny Oneal MD - 07/07/2018 3:25 PM EDT Attestation: Case Date: 06/28/2018 I was present and I participated during the entire procedure (does not need to include opening and closing). Jhonny Oneal MD 07/07/2018 Plan of Care - Royce Lu RN - 06/28/2018 2:52 AM EST Problem: Patient Care Overview Goal: Plan of Care Review Outcome: Ongoing (Interventions Implemented as Appropriate) 06/28/18 0235 Coping/Psychosocial Plan Of Care Reviewed With patient Plan of Care Review Progress no change OUTCOME EVALUATION NOTE: OUTCOME SUMMARY: Pain was controlled with PRN Tylenol and oxycodone overnight. NPO after MN for OR in AM. Started MIVF of N.S infusing at 100 cc/hr via right PIV. Scheduled Zosyn given as ordered. Blood sugar 182 mg/dlby fingerstick at HS. New order given. See MAR for insulin coverage. Adequate amount of UOP. Will continue to monitor. PLAN MOVING FORWARD: NPO after MN. OR for R iliac stent and BURR BENCH OPERATOR enterectomy in AM. FSBG QID. INDIVIDUALIZED FALL PREVENTION INTERVENTIONS: Patient-specific fall risk factors per assessment: [current deficits]: narcotics, generalized weakness, I.V line. Assistance [level of assistance required for transfers and ambulation]: SBA with IV pole/walker. Supervision [direct monitoring required during toileting and ADLs]: eyes on, hands on. Surveillance [continuous indirect monitoring]: purposeful rounding, call light in reach. Patient-specific fall prevention interventions for sensory deficits provided, if applicable: yes, glasses, light adjusted. CPG GOAL OUTCOME EVALUATION: Goal: Fall Prevention-Safe Patient Handling Outcome: Ongoing (Interventions Implemented as Appropriate) 06/27/18 2221 Oneal Fall Risk History of Falling 0 Secondary Diagnosis 15 Ambulatory Aids 15 Intravenous Therapy/Heparin/Saline Lock 20 Gait/Transferring 10 Mental Status 0 Score 60 OTHER Oneal Fall Risk High Restraint Interventions Safety Promotion/Fall Prevention activity supervised;fall prevention program maintained;nonskid shoes/slippers when out of bed;safety round/check completed;toileting scheduled Positioning Body Position independent Activity Activity Type activity adjusted per tolerance Activity Assistance Provided assistance, stand-by Assistive Device Utilized front-wheel walker Goal: Infection Control Outcome: Ongoing (Interventions Implemented as Appropriate) 06/27/18 2221 Safety Interventions Isolation Precautions standard precautions maintained Infection Prevention environmental surveillance performed;rest/sleep promoted;single patient room provided Coping Strategies Supportive Measures active listening utilized Goal: Interdisciplinary Rounds/Family Conf Outcome: Ongoing (Interventions Implemented as Appropriate) 06/28/18 0235 Interdisciplinary Rounds/Family Conf Participants nursing;patient documented in this encounter Plan of Treatment Scheduled Orders Name Type Priority Associated Diagnoses Order S chedule IR OR VASC Imaging Storage Routine Once PRN (fo r Radiant Aniogram Image Only use) for 1 Storage Only Occurrences sta rting 06/28/2018 unti l 06/28/2018, 1 completed documented as of this encounter Procedures Procedure Name Priority Date/Time Associated Comments Diagnosis POCT GLUCOSE Routine 06/30/2018 9:53 AM Results f or this EST procedure are i n the results section. POCT GLUCOSE Routine 06/30/2018 7:47 AM Results f or this EST procedure are i n the results section. REYMUNDO, LEGS, MULTIPLE Routine 06/30/2018 7:35 AM Critical lower limb Results for this LEVELS EST ischemia procedure are i n the results section. POCT GLUCOSE Routine 06/30/2018 5:50 AM Results f or this EST procedure are i n the results section. BMP W/FASTING GLUCOSE Routine 06/30/2018 4:13 AM Results for this EST procedure are i n the results section. HEMOGRAM Routine 06/30/2018 4:13 AM Results f or this EST procedure are i n the results section. POCT GLUCOSE Routine 06/30/2018 12:55 Results for this AM EST procedure are i n the results section. POCT GLUCOSE Routine 06/29/2018 10:35 Results for this PM EST procedure are i n the results section. POCT GLUCOSE Routine 06/29/2018 8:20 PM Results f or this EST procedure are i n the results section. POCT GLUCOSE Routine 06/29/2018 11:25 Results for this AM EST procedure are i n the results section. POCT GLUCOSE Routine 06/29/2018 7:44 AM Results f or this EST procedure are i n the results section. BMP W/FASTING GLUCOSE Routine 06/29/2018 7:06 AM Results for this EST procedure are i n the results section. HEMOGRAM Routine 06/29/2018 7:06 AM Results f or this EST procedure are i n the results section. POCT GLUCOSE Routine 06/28/2018 8:52 PM Results f or this EST procedure are i n the results section. POCT GLUCOSE Routine 06/28/2018 5:11 PM Results f or this EST procedure are i n the results section. POCT GLUCOSE Routine 06/28/2018 2:45 PM Results f or this EST procedure are i n the results section. BMP W/FASTING GLUCOSE STAT 06/28/2018 2:40 PM Results for this EST procedure are i n the results section. HEMOGRAM STAT 06/28/2018 2:40 PM Results f or this EST procedure are i n the results section. EKG 12-LEAD STAT 06/28/2018 2:38 PM S/P CABG (coronary Res ults for this EST artery bypass procedure are in graft) the results section. ENDARTERECTOMY, Routine 06/28/2018 1:52 PM ILIOFEMORAL W OR W/O EST PATCH GRAFT IR OR VASC ANGIOGRAM Routine 06/28/2018 1:19 PM R esults for this IMAGE STORAGE ONLY EST procedure are in the results section. POCT GLUCOSE Routine 06/28/2018 12:18 Results for this PM EST procedure are i n the results section. BLOOD GAS 2 ARTERIAL Routine 06/28/2018 11:41 Res ults for this AM EST procedure are i n the results section. POCT GLUCOSE Routine 06/28/2018 11:02 Results for this AM EST procedure are i n the results section. REVSC OPN\PRQ ILIAC Yes 06/28/2018 10:09 CLI ART W\STNT PLMT & AM EST ANGIOP SAME VSL (WRVU 10) @ENDARTERECTOMY, Yes 06/28/2018 10:09 CLI ILIOFEMORAL W OR W/O AM EST PATCH GRAFT (WRVU 19.86) REVSC OPN\PRQ ILIAC Routine 06/28/2018 7:57 AM ART W\STNT PLMT & EST ANGIOP SAME VSL POCT GLUCOSE Routine 06/28/2018 7:38 AM Results f or this EST procedure are i n the results section. POCT GLUCOSE Routine 06/27/2018 10:02 Results for this PM EST procedure are i n the results section. POCT GLUCOSE Routine 06/27/2018 8:12 PM Results f or this EST procedure are i n the results section. EKG 12-LEAD Routine 06/27/2018 7:46 PM Critical lower limb Re sults for this EST ischemia procedure are i n the results section. XR CHEST ONE VIEW Routine 06/27/2018 7:01 PM Resu lts for this EST procedure are i n the results section. POCT GLUCOSE Routine 06/27/2018 6:00 PM Results f or this EST procedure are i n the results section. ABORH RECHECK STATUS Routine 06/27/2018 5:48 PM R esults for this EST procedure are i n the results section. ABO/RH TYPING Routine 06/27/2018 5:48 PM Results for this EST procedure are i n the results section. ANTIBODY SCREEN Routine 06/27/2018 5:48 PM Result s for this EST procedure are i n the results section. TYPE AND SCREEN Routine 06/27/2018 5:48 PM ([facility]) EST HEMOGRAM Routine 06/27/2018 5:45 PM Results f or this EST procedure are i n the results section. DIFFERENTIAL, Routine 06/27/2018 5:45 PM Results for this AUTOMATED EST procedure are i n the results section. APTT Routine 06/27/2018 5:45 PM Results f or this EST procedure are i n the results section. PROTHROMBIN TIME Routine 06/27/2018 5:45 PM Resul ts for this EST procedure are i n the results section. CBC (WITH DIFF) Routine 06/27/2018 5:45 PM EST BASIC METABOLIC PANEL Routine 06/27/2018 5:45 PM Results for this (NON-FASTING) EST procedure are in the results section. documented in this encounter Results (ABNORMAL) POCT Glucose (06/30/2018 9:53 AM EST) P athologist Signature POC Glucose 246 (H) 65 - 199 [facility] mg/dL [facility]OR[facility] Comment: Supplemental ranges: <140 mg/dL before meals <180 mg/dL all other times of the day Specimen Anatomical Collection Method Collection Time Receive d Time (Source) Location / / Volume Laterality Blood specimen 06/30/2018 9:53 AM 019 9:53 (specimen) EST AM EST Jhonny Oneal MD POINT OF CARE TEST ORDERABLE S Performing Organization Address City/State/ZIP Code Phon e Number [address] POCT Glucose (06/30/2018 7:47 AM EST) P athologist Signature POC Glucose 115 65 - 199 [facility] mg/dL [facility] Comment: Supplemental ranges: <140 mg/dL before meals <180 mg/dL all other times of the day Specimen Anatomical Collection Method Collection Time Receive d Time (Source) Location / / Volume Laterality Blood specimen 06/30/2018 7:47 AM 019 7:47 (specimen) EST AM EST Jhonny Oneal MD POINT OF CARE TEST ORDERABLE S Performing Organization Address City/State/[place] [address] REYMUNDO, legs, multiple levels (06/30/2018 7:35 AM EST) Component Value Ref Test Analysis Performed At Patholo gist Range Method Time Signature VB Text Department: Vascular Surgery Lab VASCUBASE Report Patient: [id number] (BERTIN LORENZO) CPT: 57734 ICD10: I99.8;I70.213 Referring Physician: JHONNY ONEAL MD ?? Phone: Indications: S/p right femoral endarterectomy and stents, ? change in REYMUNDO Diabetes mellitus: Yes ICD10 Diagnosis Code: I99.8, I70.213 Findings: Right ?Pressure (mm Hg) ?? REYMUNDO ??Waveform ? TBI ?? Brachial Artery ?127 ? Dorsalis Pedis (Ankle) Arter y ?34 ?0.25 ??Monophasic ? Posterior Tibial (Ankle) Art precious ??45 ?0.33 ??Monophasic ? Great Toe ?15 ?0.11 ?? Left ? Pressure (mm Hg) ?? REYMUNDO ??Waveform ?? TBI ?? Brachial Artery ?135 ? Dorsalis Pedis (Ankle) Arter y ?87 ?0.64 ??Biphasic ? Posterior Tibial (Ankle) Art precious ??92 ?0.68 ??Biphasic ? Great Toe ?74 ?0.55 ?? Interpretation: RIGHT: Severe lower extremity arterial occlusive disease. Si gnificant improvement in the posterior tibial artery with no change in the dorsalis pedis artery or TBI when compared to previous exam performed on 06/27/2018. LEFT: Moderate lower extremity arterial occlusive disease. N o identifiable change when compared to the previous exam performed on 019. Previous ABIs with change from previous value: Date ?RIGHT DP ?? RIGHT PT ?? RT GR TOE ??RT Sec T OE ??0.70 ? 0.68 ? 0.47 ? ---- ??0.74(+.04) 0.73(+.05) 0.50(+.03) ---- ??0.40(-.34) 0.36(-.37) 0.46(-.04) ---- ??0.34(-.06) 0.00(-.36) 0.06(-.40) ---- Current ? 0.25(-.09) 0.33(+.33) 0.11(+.05) ---- Date ?LEFT DP ?LEFT PT ?LT GR TOE LT Sec T OE ??0.80 ? 0.82 ? 0.72 ? ---- ??0.91(+.11) 0.94(+.12) 0.88(+.16) ---- ??0.84(-.07) 0.83(-.11) 0.67(-.21) ---- ??0.57(-.27) 0.63(-.20) 0.57(-.10) ---- Current ? 0.64(+.07) 0.68(+.05) 0.55(-.02) ---- Electronically Signed by: JHONNY ONEAL MD on 2018-07-03 05: 20:29 PM VB Text End of Report VASCUBASE Report Specimen (Source) Anatomical Collection Method Collection Time Re ceived Time Location / / Volume Laterality 06/30/2018 7:35 AM EST Jhonny Oneal MD VASCULAR ORDERABLES Performing Organization Address City/State/ZIP Code Phon e Number VASCUBASE POCT Glucose (06/30/2018 5:50 AM EST) P athologist Signature POC Glucose 114 65 - 199 [facility] mg/dL [facility] Comment: Supplemental ranges: <140 mg/dL before meals <180 mg/dL all other times of the day Specimen Anatomical Collection Method Collection Time Receive d Time (Source) Location / / Volume Laterality Blood specimen 06/30/2018 5:50 AM 5:50 (specimen) EST AM EST Jhonny Oneal MD POINT OF CARE TEST ORDERABLE S Performing Organization Address City/State/[place] [address] (ABNORMAL) Hemogram (06/30/2018 4:13 AM EST) Analysis Performed At Patho logist Time Signature WBC 11.2 (H) 4.0 - 9.5 [facility] AF[facility] x10(3)/[facility] LABORATORY RBC 3.92 (L) 4.58 - [facility] 5.54 [facility] x10(6)/[facility] LABORATORY Hemoglobin 11.9 (L) 13.7 - [facility] 16.5 gm/dL [facility] LABORATORY Hematocrit 36.1 (L) 40.5 - [facility] 48.5 % [facility] LABORATORY MCV 92.1 82.9 - [facility] AFIA 93.1 [facility] LABORATORY MCH 30.4 27.5 - [facility] 32.1 pg [facility] LABORATORY MCHC 33.0 32.0 - [facility] 35.7 gm/dL [facility] LABORATORY Platelets 174 145 - 357 [facility] AFIA x10(3)/[facility] LABORATORY RDWSD 48.0 (H) 36.0 - [facility] AFIA 45.0 [facility] LABORATORY RDWCV 14.2 (H) 11.4 - [facility] 13.8 % [facility] LABORATORY MPV 11.4 7.6 - 12.9 [facility] AFIA [facility] LABORATORY nRBC % Auto 0.0 % [facility] LABORATORY nRBC Abs Auto 0.000 0.000 - [facility] 0.000 [facility] x10(3)/[facility] LABORATORY Specimen Anatomical Collection Method Collection Time Receive d Time (Source) Location / / Volume Laterality Blood specimen 06/30/2018 4:13 AM 03/08/2 019 4:32 (specimen) EST AM EST Resulting Agency Comment Spec In Lab Jhonny Oneal MD HEMATOLOGY ORDERABLES Performing Organization Address City/State/[place] [address] (ABNORMAL) BMP w/fasting Glucose (06/30/2018 4:13 AM EST) athologist Signature Glucose 135 (H) 65 - 99 [facility] Fasting mg/dL [facility] Comment: ?Fasting* Glucose Interpretive C riteria [...] of Diabetes Mellitus, Position Statement from the [place] [employer]. ??Diabete s Care, Volume 33, Supplement 1, Apr 2009 BUN 17 10 - 20 mg/dL [facility] LABORATORY Creatinine 0.82 0.80 - 1.50 mg/dL [facility] LABORATORY Sodium 140 135 - 145 mmol/L [facility] LABOR[facility]ORY Potassium 4.1 3.5 - 5.0 mmol/L [facility] Comment: Please note: ??Patients with WBC >100,00 0 may have falsely elevated Potassium levels. ??For accurate Potassium quantif ication in these patients send serum separator tube (gold top) for subsequent determinations. ??Contact the Clinical Chemistry Laboratory if there are any qu estions. Chloride 103 98 - 107 mmol/L [facility] LABORATORY CO2 22 22 - 31 mmol/L [facility] Anion Gap 15 5 - 15 mmol/L [facility]ORY Calcium 8.6 8.5 - 10.5 mg/dL [facility] Estimated GFR 98 >=60 mL/min/1.73 m?? [facility] Comment: The eGFR was calculated using the CKD-EP I equation. As with all creatinine based estimates of kidney function, eGFR values calculated with the CKD-EPI equation are not accurate in patients wi th acute kidney failure, extremes of body mass or the acutely ill. [email or web address] eGFR 114 >=60 mL/min/1.73 m?? [facility] Comment: The eGFR was calculated using the CKD-EP I equation. As with all creatinine based estimates of kidney function, eGFR values calculated with the CKD-EPI equation are not accurate in patients wi th acute kidney failure, extremes of body mass or the acutely ill. [email or web address] Specimen Anatomical Collection Method Collection Time Receive d Time (Source) Location / / Volume Laterality Blood specimen 06/30/2018 4:13 AM 019 4:32 (specimen) EST AM EST Resulting Agency Comment Spec In Lab Jhonny Oneal MD CHEMISTRY ORDERABLES Performing Organization Address City/[facility]/ZIP Code Phon e Number [address] (ABNORMAL) POCT Glucose (06/30/2018 12:55 AM EST) athologist Signature POC Glucose 223 (H) 65 - 199 [facility] Comment: Supplemental ranges: <140 mg/dL before meals <180 mg/dL all other times of the day Specimen Anatomical Collection Method Collection Time Receive d Time (Source) Location / / Volume Laterality Blood specimen 06/30/2018 12:55 9 (specimen) AM EST 12:55 AM EST Jhonny Oneal MD POINT OF CARE TEST ORDERABLE S Performing Organization Address City/[facility]/ZIP [facility] Phon e Number [address] (ABNORMAL) POCT Glucose (06/29/2018 10:35 PM EST) athologist Signature POC Glucose 247 (H) 65 - 199 [facility] AFIA mg/dL [facility] Comment: Supplemental ranges: <140 mg/dL before meals <180 mg/dL all other times of the day Specimen Anatomical Collection Method Collection Time Receive d Time (Source) Location / / Volume Laterality Blood specimen 06/29/2018 10:35 9 (specimen) PM EST 10:35 PM EST Jhonny Oneal MD POINT OF CARE TEST ORDERABLE S Performing Organization Address City/State/[place] [address] (ABNORMAL) POCT Glucose (06/29/2018 8:20 PM EST) P athologist Signature POC Glucose 274 (H) 65 - 199 [facility] [place] mg/dL [facility] Comment: Supplemental ranges: <140 mg/dL before meals <180 mg/dL all other times of the day Specimen Anatomical Collection Method Collection Time Receive d Time (Source) Location / / Volume Laterality Blood specimen 06/29/2018 8:20 PM 019 8:20 (specimen) EST PM EST Jhonny Oneal MD POINT OF CARE TEST ORDERABLE S Performing Organization Address City/State/[place] [address] POCT Glucose (06/29/2018 11:25 AM EST) athologist Signature POC Glucose 171 65 - 199 [facility] mg/dL [facility] Comment: Supplemental ranges: <140 mg/dL before meals <180 mg/dL all other times of the day Specimen Anatomical Collection Method Collection Time Receive d Time (Source) Location / / Volume Laterality Blood specimen 06/29/2018 11:25 9 (specimen) AM EST 11:25 AM EST Jhonny Oneal MD POINT OF CARE TEST ORDERABLE S Performing Organization Address City/State/ZIP Code Phon e Number [address] POCT Glucose (06/29/2018 7:44 AM EST) athologist Signature POC Glucose 120 65 - 199 [facility] mg/dL [facility] Comment: Supplemental ranges: <140 mg/dL before meals <180 mg/dL all other times of the day Specimen Anatomical Collection Method Collection Time Receive d Time (Source) Location / / Volume Laterality Blood specimen 06/29/2018 7:44 AM 019 7:44 (specimen) EST AM EST Jhonny Oneal MD POINT OF CARE TEST ORDERABLE S Performing Organization Address City/State/[place] [address] (ABNORMAL) Hemogram (06/29/2018 7:06 AM EST) Analysis Performed At Patho logist Time Signature WBC 12.0 (H) 4.0 - 9.5 [facility] x10(3)/[facility] LABORATORY RBC 4.18 (L) 4.58 - [facility] 5.54 [facility] x10(6)/[facility] LABORATORY Hemoglobin 12.5 (L) 13.7 - [facility] 16[facility] gm/dL [facility] LABORATORY Hematocrit 38.8 (L) 40.5 [facility] 48.5 % [facility] LABORATORY MCV 92.8 82.9 - [facility] 93.1 [facility] LABORATORY MCH 29.9 27.5 - [facility] 32.1 pg [facility] LABORATORY MCHC 32.2 32.0 - [facility] 35.7 gm/dL [facility] LABORATORY Platelets 188 145 - 357 [facility] x10(3)/[facility] LABORATORY RDWSD 47.6 (H) 36.0 - [facility] AFIA 45.0 [facility] LABORATORY RDWCV 14.1 (H) 11.4 - [facility] AFIA 13.8 % [facility] LABORATORY MPV 11.1 7.6 - 12.9 [facility] LABORATORY nRBC % Auto 0.0 % [facility] LABORATORY nRBC Abs Auto 0.000 0.000 - JW AFIA 0.000 [facility] x10(3)/[facility] LABORATORY Specimen Anatomical Collection Method Collection Time Receive d Time (Source) Location / / Volume Laterality Blood specimen 06/29/2018 7:06 AM 019 7:19 (specimen) EST AM EST Resulting Agency Comment Spec In Lab Jhonny Oneal MD HEMATOLOGY ORDERABLES Performing Organization Address City/State/[place] [address] (ABNORMAL) BMP w/fasting Glucose (06/29/2018 7:06 AM EST) P athologist Signature Glucose 108 (H) 65 - 99 [facility] Fasting mg/dL [facility]ORY Comment: ?Fasting* Glucose Interpretive C riteria [...] of Diabetes Mellitus, Position Statement from the [place] [employer]. ??Diabete s Care, Volume 33, Supplement 1, Apr 2009 BUN 13 10 - 20 mg/dL [facility] LABORATORY Creatinine 0.96 0.80 - 1.50 mg/dL [facility] LABORATORY Sodium 139 135 - 145 mmol/L [facility] LABORATORY Potassium 4.0 3.5 - 5.0 mmol/L [facility] Comment: Please note: ??Patients with WBC >100,00 0 may have falsely elevated Potassium levels. ??For accurate Potassium quantif ication in these patients send serum separator tube (gold top) for subsequent determinations. ??Contact the Clinical Chemistry Laboratory if there are any qu estions. Chloride 100 98 - 107 mmol/L [facility] LAB[facility]ORY CO2 26 22 - 31 mmol/L [facility]ORY Anion Gap 13 5 - 15 mmol/L [facility]ORY Calcium 8.8 8.5 - 10.5 mg/dL [facility] LAB[facility]ORY Estimated GFR 87 >=60 mL/min/1.73 m?? [facility] Comment: The eGFR was calculated using the CKD-EP I equation. As with all creatinine based estimates of kidney function, eGFR values calculated with the CKD-EPI equation are not accurate in patients wi th acute kidney failure, extremes of body mass or the acutely ill. [email or web address] eGFR 101 >=60 mL/min/1.73 m?? [facility] Comment: The eGFR was calculated using the CKD-EP I equation. As with all creatinine based estimates of kidney function, eGFR values calculated with the CKD-EPI equation are not accurate in patients wi th acute kidney failure, extremes of body mass or the acutely ill. [email or web address] Specimen Anatomical Collection Method Collection Time Receive d Time (Source) Location / / Volume Laterality Blood specimen 06/29/2018 7:06 AM 019 7:19 (specimen) EST AM EST Resulting Agency Comment Spec In Lab Jhonny Oneal MD CHEMISTRY ORDERABLES Performing Organization Address City/[facility] Phon e Number [address] POCT Glucose (06/28/2018 8:52 PM EST) athologist Signature POC Glucose 136 65 - 199 [facility]ORY Comment: Supplemental ranges: <140 mg/dL before meals <180 mg/dL all other times of the day Specimen Anatomical Collection Method Collection Time Receive d Time (Source) Location / / Volume Laterality Blood specimen 06/28/2018 8:52 PM 019 8:52 (specimen) EST PM EST Jhonny Oneal MD POINT OF CARE TEST ORDERABLE S Performing Organization Address City/[facility] Phon e Number [address] POCT Glucose (06/28/2018 5:11 PM EST) athologist Signature POC Glucose 131 65 - [address] [facility] mg/dL [facility] LAB[facility]ATORY Comment: Supplemental ranges: <140 mg/dL before meals <180 mg/dL all other times of the day Specimen Anatomical Collection Method Collection Time Receive d Time (Source) Location / / Volume Laterality Blood specimen 06/28/2018 5:11 PM 019 5:11 (specimen) EST PM EST Jhonny Oneal MD POINT OF CARE TEST ORDERABLE S Performing Organization Address City/State/[place] [address] POCT Glucose (06/28/2018 2:45 PM EST) P athologist Signature POC Glucose 150 65 - 199 [facility] mg/dL [facility] LAB[facility]ORY Comment: Supplemental ranges: <140 mg/dL before meals <180 mg/dL all other times of the day Specimen Anatomical Collection Method Collection Time Receive d Time (Source) Location / / Volume Laterality Blood specimen 06/28/2018 2:45 PM 019 2:45 (specimen) EST PM EST Jhonny Oneal MD POINT OF CARE TEST ORDERABLE S Performing Organization Address City/State/[place] [address] (ABNORMAL) Hemogram (06/28/2018 2:40 PM EST) Analysis Performed At Patho logist Time Signature WBC 8.9 4.0 - 9.5 [facility] x10(3)/[facility] LABORATORY RBC 4.13 (L) 4.58 - [facility] 5.54 [facility] x10(6)/[facility] LABORATORY Hemoglobin 12.1 (L) 13.7 - [facility] 16.5 gm/dL [facility] LABORATORY Hematocrit 37.3 (L) 40.5 - [facility] 48.5 % [facility] LABORATORY MCV 90.3 82.9 - [facility] 93.1 [facility] LABORATORY MCH 29.3 27.5 - [facility] 32.1 pg [facility] LABORATORY MCHC 32.4 32.0 - [facility] 35.7 gm/dL [facility] LABORATORY Platelets 199 145 - 357 [facility] x10(3)/[facility] LABORATORY RDWSD 46.8 (H) 36.0 - [facility] AFIA 45.0 [facility] LABORATORY RDWCV 14.3 (H) 11.4 - [facility] AFIA 13.8 % [facility] LABORATORY MPV 11.3 7.6 - 12.9 [facility] [place] LABORATORY nRBC % Auto 0.0 % [facility] LABORATORY nRBC Abs Auto 0.000 0.000 - JW OREILLY 0.000 [facility] x10(3)/[facility] LABORATORY Specimen Anatomical Collection Method Collection Time Receive d Time (Source) Location / / Volume Laterality Blood specimen 06/28/2018 2:40 PM 019 3:06 (specimen) EST PM EST Resulting Agency Comment Spec In Lab Jhonny Oneal MD HEMATOLOGY ORDERABLES Performing Organization Address City/State/[place] [address] (ABNORMAL) BMP w/fasting Glucose (06/28/2018 2:40 PM EST) P athologist Signature Glucose 152 (H) 65 - 99 [facility] Fasting mg/dL [facility] LAB[facility]ATORY Comment: ?Fasting* Glucose Interpretive C riteria [...] of Diabetes Mellitus, Position Statement from the [place] [employer]. ??Diabete s Care, Volume 33, Supplement 1, Apr 2009 BUN 21 (H) 10 - 20 mg/dL [facility] LABORATORY Creatinine 0.84 0.80 - 1.50 mg/dL [facility] LABORATORY Sodium 141 135 - 145 mmol/L [facility] LAB[facility]ORY Potassium 4.3 3.5 - 5.0 mmol/L [facility] Comment: Please note: ??Patients with WBC >100,00 0 may have falsely elevated Potassium levels. ??For accurate Potassium quantif ication in these patients send serum separator tube (gold top) for subsequent determinations. ??Contact the Clinical Chemistry Laboratory if there are any qu estions. Chloride 104 98 - 107 mmol/L [facility] CO2 23 22 - 31 mmol/L [facility] Anion Gap 14 5 - 15 mmol/L [facility] Calcium 8.0 (L) 8.5 - 10.5 mg/dL [facility] Comment: result rechecked- Estimated GFR 97 >=60 mL/min/1.73 m?? [facility] Comment: The eGFR was calculated using the CKD-EP I equation. As with all creatinine based estimates of kidney function, eGFR values calculated with the CKD-EPI equation are not accurate in patients wi th acute kidney failure, extremes of body mass or the acutely ill. [email or web address] eGFR 113 >=60 mL/min/1.73 m?? [facility] Comment: The eGFR was calculated using the CKD-EP I equation. As with all creatinine based estimates of kidney function, eGFR values calculated with the CKD-EPI equation are not accurate in patients wi th acute kidney failure, extremes of body mass or the acutely ill. [email or web address] Specimen Anatomical Collection Method Collection Time Receive d Time (Source) Location / / Volume Laterality Blood specimen 06/28/2018 2:40 PM 019 3:06 (specimen) EST PM EST Resulting Agency Comment Spec In Lab Jhonny Oneal MD CHEMISTRY ORDERABLES Performing Organization Address City/State/[place] [address] EKG 12 Lead (06/28/2018 2:38 PM EST) Component Value Ref Range Test Analysis Performed Pathologis t Method Time At Signature Ventricular rate 71 BPM MUSE SYSTEM Atrial Rate 71 BPM MUSE SYSTEM P-R Interval 142 ms MUSE SYSTEM QRS Duration 94 ms MUSE SYSTEM Q-T Interval 406 ms MUSE SYSTEM QTC Calculated 441 ms MUSE SYSTEM (Bezet) Calculated P [place] 72 degrees MUSE SYSTEM Calculated R [place] 52 degrees MUSE SYSTEM Calculated T [place] 105 degrees MUSE SYSTEM INTERPRETATION Normal sinus rhythm MUSE SYSTEM T wave abnormality, consider lateral ischemia Abnormal ECG When compared with ECG of 27-JUN-2018 19:46, No significant change was found Confirmed by MD MARR ARMIN ([id number]) on 06/28/2018 5:42:21 PM Specimen Anatomical Collection Method Collection Time Receive d Time (Source) Location / / Volume Laterality 06/28/2018 2:38 PM 9 5:42 EST PM EST Jhonny Oneal MD ECG ORDERABLES Performing Organization Address City/State/ZIP Code Phon e Number MUSE SYSTEM IR OR VASC Aniogram Image Storage Only (06/28/2018 1:19 PM EST) Specimen (Source) Anatomical Location Collection Method / Collectio n Time Received Time / Laterality Volume Narrative RAD - 06/28/2018 1:19 PM EST This exam is for storage only and is aut o-finalizing. Jhonny Oneal MD IMG FILM LIBRARY ORDERABLES Performing Organization Address City/State/ZIP Code Phon e Number [place], [place] POCT Glucose (06/28/2018 12:18 PM EST) athologist Signature POC Glucose 142 65 - 199 [facility] mg/dL [facility] Comment: Supplemental ranges: <140 mg/dL before meals <180 mg/dL all other times of the day Specimen Anatomical Collection Method Collection Time Receive d Time (Source) Location / / Volume Laterality Blood specimen 06/28/2018 12:18 9 (specimen) PM EST 12:18 PM EST Jhonny Oneal MD POINT OF CARE TEST ORDERABLE S Performing Organization Address City/State/ZIP [facility] [place] [place] [address] (ABNORMAL) BLOOD GAS 2 ARTERIAL (06/28/2018 11:41 AM EST) Analysis Performed At Patho logist Time Signature pH Art 7.42 7.35 - [facility] 7.45 [facility] pCO2 Art 35 35 - 45 [facility] acute hospital LABORATORY pO2 Art 136 (H) 85 - 104 [facility] acute hospital LABORATORY HCO3 Art 22.5 20.0 - [facility] 26.0 [facility] mmol/L [facility] BE Art -2.0 -3.0 - 3.0 [facility] mmol/L [facility] Hgb Blood Gas 12.9 (L) 13.7 - [facility] 16.5 gm/dL [facility] O2HB Art 96.8 94.0 - [facility] 97.0 % [facility] COHB Art 1.4 % [facility] Comment: Nonsmokers: 0.5-1.5% COHB Smokers: Variable, but usually less than 10% Toxic: 20-30% COHB Lethal: Greater than 60% COHB METHB Art 0.3 <=1.5 % [facility] Na Whole Blood 140 135 - 145 mmol/L [facility] K Whole Blood 4.0 3.5 - 5.0 mmol/L [facility] Comment: Please note: Patients with WBC >100,000 may have falsely elevated Potassium levels. Contact the Clinical Chemistry L aboratory if there are any questions. ICa Whole Blood 1.08 (L) 1.15 - 1.33 mmol/L [facility] Comment: Note: ??Total bilirubin higher than 20 m g/dL may lead to falsely low ionized calcium. CL Whole Blood 106 98 - 107 mmol/L [facility] Gluc Whole Bld 127 65 - 199 mg/dL [facility] Comment: Diabetes: >=200 mg/dL plus symp toms. Lactate WB 1.4 0.5 - 2.2 mmol/L [facility] FIO2 Art 56 % [facility] PF Ratio Art 243 [facility] Specimen Anatomical Collection Method Collection Time Receive d Time (Source) Location / / Volume Laterality Blood specimen 06/28/2018 11:41 9 (specimen) AM EST 11:41 AM EST Jhonny Oneal MD CHEMISTRY ORDERABLES Performing Organization Address City/State/[place] [address] POCT Glucose (06/28/2018 11:02 AM EST) athologist Signature POC Glucose 143 65 - 199 [facility] [place] mg/dL [facility] Comment: Supplemental ranges: <140 mg/dL before meals <180 mg/dL all other times of the day Specimen Anatomical Collection Method Collection Time Receive d Time (Source) Location / / Volume Laterality Blood specimen 06/28/2018 11:02 9 (specimen) AM EST 11:02 AM EST Jhonny Oneal MD POINT OF CARE TEST ORDERABLE S Performing Organization Address City/State/[place] [address] POCT Glucose (06/28/2018 7:38 AM EST) athologist Signature POC Glucose 121 65 - 199 [facility] mg/dL [facility] Comment: Supplemental ranges: <140 mg/dL before meals <180 mg/dL all other times of the day Specimen Anatomical Collection Method Collection Time Receive d Time (Source) Location / / Volume Laterality Blood specimen 06/28/2018 7:38 AM 019 7:38 (specimen) EST AM EST Jhonny Oneal MD POINT OF CARE TEST ORDERABLE S Performing Organization Address City/State/[place] [address] POCT Glucose (06/27/2018 10:02 PM EST) athologist Signature POC Glucose 182 65 - 199 [facility] [place] mg/dL [facility] Comment: Supplemental ranges: <140 mg/dL before meals <180 mg/dL all other times of the day Specimen Anatomical Collection Method Collection Time Receive d Time (Source) Location / / Volume Laterality Blood specimen 06/27/2018 10:02 9 (specimen) PM EST 10:02 PM EST Jhonny Oneal MD POINT OF CARE TEST ORDERABLE S Performing Organization Address City/State/[place] [address] (ABNORMAL) POCT Glucose (06/27/2018 8:12 PM EST) P athologist Signature POC Glucose 218 (H) 65 - [address] [facility] mg/dL [facility] Comment: Supplemental ranges: <140 mg/dL before meals <180 mg/dL all other times of the day Specimen Anatomical Collection Method Collection Time Receive d Time (Source) Location / / Volume Laterality Blood specimen 06/27/2018 8:12 PM 019 8:12 (specimen) EST PM EST Jhonny Oneal MD POINT OF CARE TEST ORDERABLE S Performing Organization Address City/State/[place] [address] EKG 12 Lead (06/27/2018 7:46 PM EST) Component Value Ref Range Test Analysis Performed Pathologis t Method Time At Signature Ventricular rate 84 BPM MUSE SYSTEM Atrial Rate 84 BPM MUSE SYSTEM P-R Interval 142 ms MUSE SYSTEM QRS Duration 96 ms MUSE SYSTEM Q-T Interval 356 ms MUSE SYSTEM QTC Calculated 420 ms MUSE SYSTEM (Bezet) Calculated P [place] 67 degrees MUSE SYSTEM Calculated R [place] 38 degrees MUSE SYSTEM Calculated T [place] 103 degrees MUSE SYSTEM INTERPRETATION Normal sinus rhythm MUSE SYSTEM Possible Left atrial enlargement Abnormal QRS-T angle, consider primary T wave abnormality Abnormal ECG When compared with ECG of 17-AUG-2016 13:28, T wave inversion no longer evident in Lateral leads Confirmed by MD Marquez, Rolf Beavers ([id number]) on 06/28/2018 10 :08:13 PM Specimen Anatomical Collection Method Collection Time Receive d Time (Source) Location / / Volume Laterality 06/27/2018 7:46 PM 9 EST 10:08 PM EST Jhonny Oneal MD ECG ORDERABLES Performing Organization Address City/State/ZIP Code Phon e Number MUSE SYSTEM XR Chest PA or AP 1 view (06/27/2018 7:01 PM EST) Anatomical Region Laterality Modality Chest N/A Digital Radiography Specimen (Source) Anatomical Location Collection Method / Collectio n Time Received Time / Laterality Volume Impressions 06/27/2018 8:52 PM EST No acute cardiopulmonary disease. Preliminary report signed by: Jerrell rAteaga MD at 06/27/2018 7:15 PM I have personally reviewed the image(s) and the residents interpretation and agree with the findings, ISRAEL THORPE at 06/27/2018 8:52 PM Thank you for letting us participate in the care of this patient. For questions regarding this report, please contact e number below. ? Electronically signed by: Ronald DAILY [facility] ([phone]), at 06/27/2018 8:52 PM Narrative 06/27/2018 8:52 PM EST EXAMINATION: XR CHEST PA OR AP 1 VIEW CLINICAL HISTORY: pre-op exam TECHNIQUE: Single PA standing radiograph. COMPARISON: Multiple prior chest radiograph with mos t recent comparison dated August 17, 2016. FINDINGS: The lungs are clear. No pleural effusion s or pneumothoraces. ??Stable cardiomediastinal silhouette and charbel. N o interval osseous findings. Intact mediastinal wires and mediastinal surgical clips are again noted. Procedure Note Israel Thorpe MD - 06/27/2018Formattin g of this note might be different from the original. EXAMINATION: XR CHEST PA OR AP 1 VIEW CLINICAL HISTORY: pre-op exam TECHNIQUE: Single PA standing radiograph. COMPARISON: Multiple prior chest radiograph with mos t recent comparison dated August 17, 2016. FINDINGS: The lungs are clear. No pleural effusion s or pneumothoraces. Stable cardiomediastinal silhouette and charbel. N o interval osseous findings. Intact mediastinal wires and mediastinal surgical clips are again noted. IMPRESSION No acute cardiopulmonary disease. Preliminary report signed by: Jerrell Arteaga MD at 06/27/2018 7:15 PM I have personally reviewed the image(s) and the residents interpretation and agree with the findings, ISRAEL THORPE at 06/27/2018 8:52 PM Thank you for letting us participate in the care of this patient. For questions regarding this report, please contact e number below. Electronically signed by: Ronald DAILY [facility] ([phone]), at 06/27/2018 8:52 PM Jhonny Oneal MD IMG DX ORDERABLES POCT Glucose (06/27/2018 6:00 PM EST) athologist Signature POC Glucose 168 65 - 199 [facility] mg/dL [facility] Comment: Supplemental ranges: <140 mg/dL before meals <180 mg/dL all other times of the day Specimen Anatomical Collection Method Collection Time Receive d Time (Source) Location / / Volume Laterality Blood specimen 06/27/2018 6:00 PM 019 6:00 (specimen) EST PM EST Jhonny Oneal MD POINT OF CARE TEST ORDERABLE S Performing Organization Address City/[facility]/ZIP Code Phon e Number [address] ABORH Recheck Status (06/27/2018 5:48 PM EST) [facility] Method Time Signature ABORH Type Completed [facility] LABORATORY Specimen Anatomical Collection Method Collection Time Receive d Time (Source) Location / / Volume Laterality Blood specimen 06/27/2018 5:48 PM 019 5:54 (specimen) EST PM EST Resulting Agency Comment Spec In Lab Meliton Rodriguez MD BLOOD BANK ORDERABLES Performing Organization Address City/[facility]/[place] [address] Antibody screen (06/27/2018 5:48 PM EST) [facility] Method Time Signature Ab Screen Negative [facility] LAB[facility]ATORY Ex[facility] at 06/30/2018 [id number] on: [facility] Specimen Anatomical Collection Method Collection Time Receive d Time (Source) Location / / Volume Laterality Blood specimen 06/27/2018 5:48 PM 019 5:54 (specimen) EST PM EST Resulting Agency Comment Spec In Lab Meliton Rodriguez MD BLOOD BANK ORDERABLES Performing Organization Address City/[facility]/[place] [address] ABO/Rh Typing (06/27/2018 5:48 PM EST) athologist Signature ABORh Type A Pos [facility] Specimen Anatomical Collection Method Collection Time Receive d Time (Source) Location / / Volume Laterality Blood specimen 06/27/2018 5:48 PM 019 5:54 (specimen) EST PM EST Resulting Agency Comment Spec In Lab Meliton Rodriguez MD BLOOD BANK ORDERABLES Performing Organization Address City/State/[place] [address] (ABNORMAL) Differential, Automated (06/27/2018 5:45 PM EST) [facility] Time Signature Neutrophils % 49.0 % [facility] Neutr Abs (ANC) 5.21 1.70 - [facility] 6.10 [facility] x10(3)/[facility] LABORATORY Lymphocytes % 39.1 % [facility] Lymphocytes Abs 4.2 (H) 0.9 - 3.2 [facility] x10(3)/[facility] LABORATORY Monocytes % 7.5 % [facility] Monocyte Abs 0.8 0.3 - 0.9 [facility] x10(3)/[facility] LABORATORY Eosinophils % 2.7 % [facility] Eosinophils Abs 0.3 0.0 - 0.4 [facility] x10(3)/[facility] LABORATORY Basophils % 0.8 % [facility] Basophils Abs 0.1 0.0 - 0.1 [facility] x10(3)/[facility] LABORATORY Immature Gran % 0.90 % [facility] Comment: Immature granulocytes(IG's)percentage an d absolute count will include metamyelocytes, myelocytes, and promyelo cytes. Blood smears from CBCs yielding IG's will be scanned manually for concor dance. If this scan disagrees with the automated IG or if promyelocytes are not ed, a manual differential will be performed. Madhuri Gran Abs 0.10 (H) 0.00 - 0.04 x10(3)/[facility] LABORATORY Specimen Anatomical Collection Method Collection Time Receive d Time (Source) Location / / Volume Laterality Blood specimen 06/27/2018 5:45 PM 019 5:53 (specimen) EST PM EST Resulting Agency Comment Spec In Lab Meliton Rodriguez MD HEMATOLOGY ORDERABLES Performing Organization Address City/State/[place] [address] (ABNORMAL) Hemogram (06/27/2018 5:45 PM EST) Analysis Performed At Patho logist Time Signature WBC 10.6 (H) 4.0 - 9.5 [facility] x10(3)/[facility] LABORATORY RBC 4.68 4.58 - [facility] 5.54 [facility] x10(6)/[facility] LABORATORY Hemoglobin 13.9 13.7 - [facility] 16.5 gm/dL [facility] Hematocrit 41.9 40.5 - [facility] 48.5 % [facility]ATORY MCV 89.5 82.9 - [facility]1 [facility] LABORATORY MCH 29.7 27.5 - [facility] 32.1 pg [facility] LABORATORY MCHC 33.2 32.0 - [facility] 35.7 gm/dL [facility]ORY Platelets 217 145 - 357 [facility] x10(3)/[facility] LABORATORY RDWSD 46.2 (H) 36.0 - [facility] 45.0 [facility] LABORATORY RDWCV 14.4 (H) 11.4 - [facility] 13.8 % [facility] LABORATORY MPV 11.8 7.6 - 12.9 [facility] nRBC % Auto 0.0 % [facility] nRBC Abs Auto 0.000 0.000 - [facility] 0.000 [facility] x10(3)/[facility] LABORATORY Specimen Anatomical Collection Method Collection Time Receive d Time (Source) Location / / Volume Laterality Blood specimen 06/27/2018 5:45 PM 5:53 (specimen) EST PM EST Resulting Agency Comment Spec In Lab Meliton Rodriguez MD HEMATOLOGY ORDERABLES Performing Organization Address City/State/[place] [address] APTT (06/27/2018 5:45 PM EST) P athologist Signature PTT 27 25 - 37 sec [facility] Comment: The PTT is NOT appropriate for heparin m onitoring. Use the Anti-Xa level for heparin monitoring (HEP UFH) or LMWH mon itoring (HEP LMW). A PTT less than 37 seconds generally indicates adequate hem ostasis. Specimen Anatomical Collection Method Collection Time Receive d Time (Source) Location / / Volume Laterality Blood specimen 06/27/2018 5:45 PM 019 5:53 (specimen) EST PM EST Resulting Agency Comment Spec In Lab Jhonny Oneal MD HEMATOLOGY ORDERABLES Performing Organization Address City/[facility]/[place] [address] Prothrombin Time (06/27/2018 5:45 PM EST) athologist Signature PT 11.9 9.4 - 12.5 [facility] LABORATORY INR 1.0 [facility] Comment: An INR <2.0 indicates adequate procoagul ant activity for hemostasis in most patients without underlying bleeding dis orders, though the INR may not adequately reflect hemostatic capacity i n patients with liver disease and synthetic impairment. The recommended ta rget INR range for therapeutic anticoagulation is 2.0 ? 3.0 for most applications, though lower and higher ranges may be appropriate depending on c linical circumstances. Specimen Anatomical Collection Method Collection Time Receive d Time (Source) Location / / Volume Laterality Blood specimen 06/27/2018 5:45 PM 019 5:53 (specimen) EST PM EST Resulting Agency Comment Spec In Lab Jhonny Oneal MD HEMATOLOGY ORDERABLES Performing Organization Address City/[facility]/[place] [address] (ABNORMAL) Basic Metabolic Panel (non-fasting) (06/27/2018 5:45 PM EST) P athologist Signature Glucose Lvl 183 65 - 199 [facility] mg/dL [facility] Comment: Diabetes: >=200 mg/dL plus symp toms BUN 22 (H) 10 - 20 mg/dL [facility] Creatinine 0.96 0.80 - 1.50 mg/dL [facility] Sodium 138 135 - 145 mmol/L [facility] Potassium 4.5 3.5 - 5.0 mmol/L [facility] Comment: Please note: ??Patients with WBC >100,00 0 may have falsely elevated Potassium levels. ??For accurate Potassium quantif ication in these patients send serum separator tube (gold top) for subsequent determinations. ??Contact the Clinical Chemistry Laboratory if there are any qu estions. Chloride 99 98 - 107 mmol/L [facility] CO2 25 22 - 31 mmol/L [facility] Anion Gap 14 5 - 15 mmol/L [facility] Calcium 9.7 8.5 - 10.5 mg/dL [facility] Estimated GFR 87 >=60 mL/min/1.73 m?? [facility] Comment: The eGFR was calculated using the CKD-EP I equation. As with all creatinine based estimates of kidney function, eGFR values calculated with the CKD-EPI equation are not accurate in patients wi th acute kidney failure, extremes of body mass or the acutely ill. [email or web address] [email or web address] eGFR 101 >=60 mL/min/1.73 m?? [facility] Comment: The eGFR was calculated using the CKD-EP I equation. As with all creatinine based estimates of kidney function, eGFR values calculated with the CKD-EPI equation are not accurate in patients wi th acute kidney failure, extremes of body mass or the acutely ill. [email or web address] Specimen Anatomical Collection Method Collection Time Receive d Time (Source) Location / / Volume Laterality Blood specimen 06/27/2018 5:45 PM 019 5:53 (specimen) EST PM EST Resulting Agency Comment Spec In Lab Jhonny Oneal MD CHEMISTRY ORDERABLES Performing Organization Address City/State/[place] [address] documented in this encounter Visit Diagnoses Not on filedocumented in this encounter Administered Medications Inactive Administered Medications - up to 3 most recent administrations Medication Order MAR Action Action Date Dose Rate Site acetaminophen (TYLENOL) tablet Given 06/29/2018 7:39 AM EST 1,00 0 mg 1,000 mg 1,000 mg, Oral, EVERY 8 HOURS PRN, Starting on Tue06/27/18 at 1710, Until Tue06/30/18 at 1420, Pain, Maximum dose of acetaminophen is 4000 mg from all sources in 24 hours., Routine Given 06/28/2018 7:41 AM EST 1,000 mg Given 06/27/2018 7:43 PM EST 1,000 mg aspirin chewable tablet 81 mg Given 06/30/2018 9:31 AM EST 81 mg 81 mg, Oral, DAILY, First dose on Tue06/29/18 at 0900, Until Discontinued, Routine Given 06/29/2018 9:18 AM EST 81 mg atorvastatin (LIPITOR) tablet 80 mg Given 06/29/2018 4:09 PM EST 80 mg 80 mg, Oral, EVERY EVENING, First dose on Tue06/27/18 at 1730, Until Discontinued, Routine Given 06/28/2018 5:51 PM EST 80 mg Given 06/27/2018 6:20 PM EST 80 mg buPROPion (WELLBUTRIN SR or ZYBAN) SR tablet Given 11/2018 9:31 AM EST 150 mg 150 mg 150 mg, Oral, 2 TIMES DAILY, First dose on Tue06/27/18 at 2100, Until Discontinued, DO NOT CRUSH OR OPEN, Routine Given 06/29/2018 8:21 PM EST 150 mg Given 06/29/2018 9:17 AM EST 150 mg dextrose 50% intravenous solution 25-50 mL 25-50 mL (12.5-25 g), Intravenous, EVERY 1 HOUR PRN, S tarting on Tue06/27/18 at 1707, Until Tue06/30/18 at 1420, Low blood sugar, Fo r BG 50-70 mg/dL: Oral treatment preferred:?? If [...] the duration of the active insulin., Routine furosemide (LASIX) tablet 20 mg Given 06/30/2018 9:31 AM EST 20 mg 20 mg, Oral, DAILY, First dose on Tue06/29/18 at 0900, Until Discontinued, Routine Given 06/29/2018 9:17 AM EST 20 mg gabapentin (NEURONTIN) capsule 400 mg Given 06/30/2018 9:31 AM EST 400 mg 400 mg, Oral, 3 TIMES DAILY, First dose on Tue06/27/18 at 1730, Until Discontinued, Routine Given 06/29/2018 8:21 PM EST 400 mg Given 06/29/2018 2:36 PM EST 400 mg gelatin adsorbable (GELFOAM) Given 06/28/2018 1:10 PM EST 3 each 19- Surgical Site sponge ONCE PRN, Starting on Tue06/28/18 at 1118, Until Tue06/30/18 at 1420, Intra-Operative (Intra-Procedure) Given 06/28/2018 11:18 AM EST 3 each 19- Surgical Site glucagon (human recombinant) injection S olR 1 mg 1 mg, Intramuscular, EVERY 1 HOUR PRN, S tarting on Tue06/27/18 at 1707, Until Tue06/30/18 at 1420, Low blood sugar, For BG 50-70 mg/dL: Oral treatment preferred:?? If able to drink, give 120 mL Juice or R egular (not diet) soda OR If NPO, give 15 gram glucose 40% oral gel massaged into buccal mucosa OR if unconscious or uncooperative, give 12.5 gram (25 mL) De xtrose 50% IV OR, if no IV access, give 1 mg Glucagon IM. For BG less than 50 m g/dL: Oral treatment preferred:?? If able to drink, give 240 mL Juice or Regular (not diet) soda OR If NPO, give 30 gram glucose 40% oral gel massaged in buccal mucosa OR if unconscious or uncooperative, give 25 gram (50 mL) Dextrose 50% IV OR, if no IV access, give 1 mg Glucagon IM. Recheck BG in 30 minutes. May repeat j uice, gel, dextrose or glucagon once per episode. To avoid extravasation, push Dextrose 50% SLOWLY (3 mL over 1 minute) in a patent, running IV, preferably a centr al line. For persistent hypoglycemia, consider longer-acting treatment for the duration of the active insulin., Routine glucose (GLUTOSE) 40% oral gel 15-30 g, Buccal, EVERY 30 MIN PRN, Start ing on Tue06/27/18 at 1707, Until Tue06/30/18 at 1420, Low blood sugar, For BG 50-70 mg/dL: Oral treatment preferred:?? If able to drink, give 120 mL Juice or Regu lar (not diet) soda OR If NPO, give 15 gram glucose 40% oral gel massaged into buccal mucosa OR if unconscious or uncooperative, give 12.5 gram (25 mL) De xtrose 50% IV OR, if no IV access, give 1 mg Glucagon IM. For BG less than 50 m g/dL: Oral treatment preferred:?? If able to drink, give 240 mL Juice or Regular (not diet) soda OR If NPO, give 30 gram glucose 40% oral gel massaged in buccal mucosa OR if unconscious or uncooperative, give 25 gram (50 mL) Dextrose 50% IV OR, if no IV access, give 1 mg Glucagon IM. Recheck BG in 30 minutes. May repeat j uice, gel, dextrose or glucagon once per episode. To avoid extravasation, push Dextrose 50% SLOWLY (3 mL over 1 minute) in a patent, running IV, preferably a centr al line. For persistent hypoglycemia, consider longer-acting treatment for the duration of t he active insulin. 1 tube contains 15 grams of glucose (net weight of tube = 37. 5 grams., Routine insulin lispro (HumaLOG) VIAL injection 1-4 Given 11/2018 9:53 AM EST 4 Units Units 1-4 Units, Subcutaneous, EVERY 4 HOURS, First dose (after last modification) on Tue06/30/18 at 0130, Until Discontinued, CORRECTION BOLUS Sensitive to insulin lean patient or total daily dose of all insulin needed to achieve glycemic control less than 30 units BG 140 - 160 Give 1 unit BG 161 - 200 Give 2 units BG 201 - 240 Give 3 units BG greater than 240, give 4 units and recheck BG in 2 hours. If less than 240 after two hours, give no insulin and resume prior schedule. If BG remains greater than 240, repeat 4 units (no more than three times) & call for new basal insulin orders. DO NOT hold if NPO, unless specifically told to do so., Routine Given 06/30/2018 1:47 AM EST 3 Units iodixanol (VISIPAQUE) 320 mg iodine/mL Given 06/28/2018 1:10 PM EST 15 mLs injection ONCE PRN, Starting on Tue06/28/18 at 1310, Until Tue06/30/18 at 1420, Intra-Operative (Intra-Procedure), Routine isosorbide mononitrate (IMDUR) CR tablet 60 mg Given 06/30/2018 9:37 AM EST 60 mg 60 mg, Oral, DAILY, First dose on Tue06/28/18 at 0900, Until Discontinued, DO NOT CRUSH OR OPEN, Routine Given 06/29/2018 9:15 AM EST 60 mg Given 06/28/2018 9:20 AM EST 60 mg lisinopril (PRINIVIL;ZESTRIL) tablet 5 m g Given 06/30/2018 9:31 AM EST 5 mg 5 mg, Oral, DAILY, First dose on Tue06/29/18 at 0900, Until Discontinued, Routine Given 06/29/2018 9:17 AM EST 5 mg LORazepam (ATIVAN) tablet 0.5 mg Given 06/28/2018 8:38 PM EST 0.5 mg 0.5 mg, Oral, NIGHTLY PRN, Starting on Tue06/28/18 at 2029, Until Tue06/30/18 at 1420, Anxiety, Routine metoprolol tartrate (LOPRESSOR) tablet 1 00 mg Given 06/30/2018 9:31 AM EST 100 mg 100 mg, Oral, 2 TIMES DAILY, First dose on Tue06/27/18 at 2100, Until Discontinued, Routine Given 06/29/2018 8:21 PM EST 100 mg Given 06/29/2018 9:16 AM EST 100 mg multivitamin with minerals (THERA-M) tablet Given 11/2018 9:31 AM EST 1 tablet 1 tablet 1 tablet, Oral, DAILY, First dose on Tue06/29/18 at 1600, Until Discontinued, Routine Given 06/29/2018 4:09 PM EST 1 tablet oxyCODONE (ROXICODONE) immediate release Given 06/30/2018 7:56 A M EST 10 mg tablet 10-15 mg 10-15 mg, Oral, EVERY 4 HOURS PRN, Starting on Tue06/27/18 at 1725, Until Tue06/30/18 at 1420, Pain, severe pain (7-10), Initial dose 10mg. If pain control not adequate in 60 minutes, give additional 5mg, Routine Given 06/30/2018 1:49 AM EST 10 mg Given 06/29/2018 10:51 PM EST 10 mg oxyCODONE (ROXICODONE) immediate release tablet Given 06/29/2018 4:28 AM EST 5 mg 5-10 mg 5-10 mg, Oral, EVERY 4 HOURS PRN, Starting on Tue06/27/18 at 1725, Until Tue06/30/18 at 1420, Pain, moderate pain (4-6), Initial dose 5mg. If pain control not adequate in 60 minutes, give additional 5mg, Routine Given 06/28/2018 3:30 PM EST 5 mg pantoprazole (PROTONIX) tablet 40 mg Given 06/30/2018 9:31 AM EST 40 mg 40 mg, Oral, DAILY, First dose on Tue06/28/18 at 0900, Until Discontinued Given 06/29/2018 9:17 AM EST 40 mg Given 06/28/2018 9:20 AM EST 40 mg polyethylene glycol (MIRALAX) packet 17 g Given 06/29/2018 9:18 AM EST 17 g 17 g, Oral, DAILY, First dose on Tue06/27/18 at 1745, Until Discontinued, Routine sodium chloride 0.9 % flush 5 mL Given 06/30/2018 9:32 AM EST 5 mLs 5 mL, Intravenous, 2 TIMES DAILY, First dose on Tue06/27/18 at 2100, Until Discontinued, Recovery (Recovery-Hospital Unit), Routine Given 06/29/2018 8:23 PM EST 5 mLs Given 06/29/2018 9:19 AM EST 5 mLs documented in this encounter Active and Recently Administered Medications Times are shown in EST. Scheduled Medication Order 06/28/2018 06/29/2018 06/30/2018 aspirin chewable tablet 81 mg 1008 (JUN Hold - Provide r: Admin Adt - Reason: Transfer to a Procedural area)1556 ([facility] Unhold - Provider: Admin Adt) 0918 (Given - Provider: Arthur Fisher, HEAVEN) 0931 (Given - Provider: Tiffany John I, HEAVEN) 81 mg, Oral, DAILY, First dose on 11/10 at 0900, Until Discontinued, Routine atorvastatin (LIPITOR) tablet 80 mg 1008 (JUN Hold - P rovider: Admin Adt - Reason: Transfer to a Procedural area)1556 ([facility] Unhold - Provider: Admin Adt)1751 (Given - Provider: Yoav Shultz RN) 1609 (Given - Provider: Arthur Fisher RN) 80 mg, Oral, EVERY EVENING, First dose o n Tue06/27/18 at 1730, Until Discontinued, Routine buPROPion (WELLBUTRIN SR or ZYBAN) SR tablet 150 mg 09 20 (Given - Provider: Yoav Shultz RN)1008 ([facility] Hold - Provider: Admin Adt - Reason: Transfer to a Procedural area)1556 ([facility] Unhold - Provider: Admin Adt)2026 (Given - Provider: Darlin Phelan RN) 0917 (Given - Provider: Arthur Fisher, HEAVEN)2020 (Given - Provider: Austin Grove RN) 0931 (Given - Provider: Tiffany Phelna RN) 150 mg, Oral, 2 TIMES DAILY, First dose on Tue06/27/18 at 2100, Until Discontinued, DO NOT CRUSH OR OPEN, Routine furosemide (LASIX) tablet 20 mg 1008 (JUN Hold - Provi almita: Admin Adt - Reason: Transfer to a Procedural area)1556 ([facility] Unhold - Provider: Admin Adt) 0917 (Given - Provider: Arthur Fisher RN) 0931 (Given - Provider: Tiffany Phelan RN) 20 mg, Oral, DAILY, First dose on 11/10 at 0900, Until Discontinued, Routine gabapentin (NEURONTIN) capsule 400 mg 0016 (Given - Pr ovider: Royce Lu RN)0920 (Given - Provider: Yoav Shultz RN)1008 ([facility] Hold - Provider: Admin Adt - Reason: Transfer to a Procedural area)1500 (Automatically Held - Provider: Admin Adt) 0914 (Given - Provider: Arthur Fisher RN)1436 (Given - Provider: Krystle Dunn, HEAVEN)202 (Given - Provider: [place] Grove RN) 0931 (Given - Provider: Tiffany Phelan RN) 400 mg, Oral, 3 TIMES DAILY, First dose on Tue06/27/18 at 1730, Until Discontinued, Routine 1556 ([facility] Unhold - Provider: Admin Adt)2 027 (Given - Provider: Darlin Phelan RN) insulin lispro (HumaLOG) VIAL injection 1-4 Units (CAN CELED) 0742 (Not Given - Provider: Yoav Shultz RN - Reason: Order parameters not met)1008 ([facility] Hold - Provider: Admin Adt - Reason: Transfer to a Procedural area)1130 (Automatically Held - Provider: Admin Adt) 0730 (Not Given - Provider: Arthur Fisher RN - Reason: Order parameters not met - Comment: Blood Sugar 120)1159 (Given - Provider: Arthur Fisher RN - Comment: Blood Sugar 171)1627 (Given - Provider: Arthur Fisher RN - Comment: Blood Sugar 217) 1-4 Units, Subcutaneous, 4 TIMES DAILY B EFORE MEALS & NIGHTLY, First dose on Tue06/27/18 at 2230, Until Discontinued, CORRECTION BOLUS Sensitive to insulin lean patient or total daily dose of all 1439 ([facility] Unhold - Provider: Gisela Navarro RN)1727 (Not Given - Provider: Yoav Shultz RN - Reason: Order parameters not met)2100 (Not Given - Provider: Darlin Phelan RN - Reason: Or almita parameters not met) 2025 (Given - Provider: Austin Grove RN) insulin needed to achieve glycemic cont rol less than 30 units BG 140 - 160 Give 1 unit BG 161 - 200 Give 2 units BG 201 - 240 Give 3 units BG greater than 240, give 4 units and recheck BG in 2 hours. I f less than 240 after two hours, give no insulin and resume prior schedule. If BG remains greater than 240, repeat 4 units (no more than three times) & call for new basal insulin orders. DO NOT hold if NPO, unless specifically told to do so., Routine insulin lispro (HumaLOG) VIAL injection 1-4 Units(Linked Group 1 ) 0147 (Given - Provider: Austin Grove RN)0530 (Not Given - Provider: Austin Grove RN - Reason: Order parameters not met)0953 (Given - Provider: Tiffany Phelan RN - Comment: bg 246) 1-4 Units, Subcutaneous, EVERY 4 HOURS, First dose on Tue06/30/18 at 0130, Until Discontinued, CORRECTION BOLUS Sensitive to insulin lean patient or total daily dose of all insulin needed to achieve glycemic control less than 30 units BG 1 40 - 160 Give 1 unit BG 161 - 200 Give 2 units BG 201 - 240 Give 3 units BG greater than 240, give 4 units and recheck BG in 2 hours. If less than 240 after two h ours, give no insulin and resume prior s chedule. If BG remains greater than 240, repeat 4 units (no more than three times) & call for new basal insulin orders. DO NOT hold if NPO, unless specifically told to do so., Routine isosorbide mononitrate (IMDUR) CR tablet 60 mg 0920 (G iven - Provider: Yoav Shultz RN)1008 ([facility] Hold - Provider: Admin Adt - Reason: Transfer to a Procedural area)1556 ([facility] Unhold - Provider: Admin Adt) 0915 (Given - Provider: Arthur Fisher RN) 0937 (Given - Provider: Tiffany Phelan RN) 60 mg, Oral, DAILY, First dose on 10/11 at 0900, Until Discontinued, DO NOT CRUSH OR OPEN, Routine lisinopril (PRINIVIL;ZESTRIL) tablet 5 mg 1008 (JUN Ho ld - Provider: Admin Adt - Reason: Transfer to a Procedural area)155 ([facility] Unhold - Provider: Admin Adt) 0917 (Given - Provider: Arthur Fisher RN) 0931 (Given - Provider: Tiffany Phelan RN) 5 mg, Oral, DAILY, First dose on 06/29 at 0900, Until Discontinued, Routine metoprolol tartrate (LOPRESSOR) tablet 100 mg 0920 (Gi aleida - Provider: Yoav Shultz RN)1008 ([facility] Hold - Provider: Admin Adt - Reason: Transfer to a Procedural area)155 ([facility] Unhold - Provider: Admin Adt)2026 (Given - Provider: Darlin Phelan RN) 0916 (Given - Provider: Arthur Fisher RN)2020 (Given - Provider: Austin Grove RN) 0931 (Given - Provider: Tiffany Phelan RN) 100 mg, Oral, 2 TIMES DAILY, First dose on Tue06/27/18 at 2100, Until Discontinued, Routine multivitamin with minerals (THERA-M) tablet 1 tablet 1609 (Given - Provider: Arthur Fisher RN) 0931 (Given - Provider: Tiffany Phelan RN) 1 tablet, Oral, DAILY, First dose on Tue06/29/18 at 1600, Until Discontinued, Routine pantoprazole (PROTONIX) tablet 40 mg 0920 (Given - Pro vider: Yoav Shultz RN)1008 ([facility] Hold - Provider: Admin Adt - Reason: Transfer to a Procedural area)155 ([facility] Unhold - Provider: Admin Adt) 0917 (Given - Provider: Arthur Fisher RN) 0931 (Given - Provider: Tiffany Phelan RN) 40 mg, Oral, DAILY, First dose on Tue06/28/18 at 0900, Until Disc ontinued piperacillin-tazobactam (ZOSYN) 3.375 g vial attach to sodium chloride 0.9% 50 mL Mini-Bag Plus (CANCELED) 0127 (New Bag - Provider: Royce Lu RN)0527 (Stopped - Provider: Royce Lu RN)0921 (New Bag - Provider: Yoav Shultz RN)1008 ([facility] Hold - Provider: Admin Adt - Reason: Transfer to a P rocedural area) 0224 (New Bag - Provider: Darlin Restrepo I, HEAVEN)0624 (Stopped - Provider: Darlin Restrepo I, HEAVEN)0918 (New Bag - Provider: Arthur Fisher, HEAVEN)1327 (Stopped - Provider: Krystle Dunn RN) 3.375 g, Intravenous, EVERY 8 HOURS, Fir st dose on Tue06/27/18 at 1730, Until Discontinued, Administer over 4 Hours, Warning Vesicant/Irritant Medication Do not administer or Y-site with lactated r 1045 (Bolus - Provider: Gregory Hawkins MD)1321 (Stopped - Provider: Yoav Shultz RN)1556 ([facility] Unhold - Provider: Admin Adt)1751 (New Bag - Provider: Yoav Shultz RN)2151 (Stopped - Provider: Darlin Phelan RN) ingers., Indication for (Active or Suspected): Skin/Skin Structu re polyethylene glycol (MIRALAX) packet 17 g 0900 (Not Gi aleida - Provider: Yoav Shultz RN - Reason: NPO)1008 ([facility]UN Hold - Provider: Admin Adt - Reason: Transfer to a Procedural area)1556 ([facility] Unhold - Provider: Admin Adt) 0918 (Given - Provider: Arhtur Fisher RN) 0900 (Not Given - Provider: Tiffany Phelan RN - Reason: Patient/family refused) 17 g, Oral, DAILY, First dose on 06/27 at 1745, Until Discontinued, Routine sodium chloride 0.9 % flush 5 mL 09 (Given - Provide r: Yoav Shultz RN)2028 (Given - Provider: Darlin Phelan RN) 09 (Given - Provider: Arthur Fisher, HEAVEN)202 (Given - Provider: [place] RN) 0932 (Given - Provider: Tiffany Phelan RN) 5 mL, Intravenous, 2 TIMES DAILY, First dose on Tue06/27/18 at 2100, Until Discontinued, Recovery (Recovery-Hospital Unit), Routine Continuous Medication Order 06/28/2018 06/29/2018 06/30/2018 sodium chloride 0.9% infusion () 0016 (New Bag - Provider: Royce Lu RN)0955 (Stopped - Provider: Yoav Shultz RN) 100 mL/hr, at 100 mL/hr, Intravenous, CO NTINUOUS, Starting Tue06/28/18 at 0000, Until Tue06/28/18 at 0959 PRN Medication Order 06/28/2018 06/29/2018 06/30/2018 acetaminophen (TYLENOL) tablet 1,000 mg 0741 (Given - Provider: Yoav Shultz RN)1008 ([facility] Hold - Provider: Admin Adt - Reason: Transfer to a Procedural area)1556 ([facility] Unhold - Provider: Admin Adt) 0739 (Given - Provider: Arthur Fisher RN) 1,000 mg, Oral, EVERY 8 HOURS PRN, Start ing Tue06/27/18 at 1710, Until Tue06/30/18 at 1420, Pain, Maximum dose of acetaminophen is 4000 mg from all sources in 24 hours., Routine bisacodyl (DULCOLAX) EC tablet 10 mg 1008 (JUN Hold - Provider: Admin Adt - Reason: Transfer to a Procedural area)1556 ([facility] Unhold - Provider: Admin Adt) 10 mg, Oral, 2 TIMES DAILY PRN, Starting Tue06/27/18 at 1707, Until Tue06/30/18 at 1420, Constipation, DO NOT CRUSH OR OPEN Administer if no bowel movement within 48 hours to achieve: (1) One bowel mo vement at least every 48 hours, AND (2) without straining. If multiple PRN bowel medications ordered, start with polyethylene glycol, then lactulose, then oral bisacodyl, then bisacodyl suppository, the n magnesium citrate, then tap water enem a. Multiple medications may be given concomitantly for constipation., Routine bisacodyl (DULCOLAX) suppository 10 mg 1008 (JUN Hold - Provider: Admin Adt - Reason: Transfer to a Procedural area)1556 ([facility] Unhold - Provider: Admin Adt) 10 mg, Rectal, DAILY PRN, Starting Tue at 1707, Until Tue06/30/18 at 1420, Constipation, Administer if no bowel movement within 48 hours to achieve: (1) One bowel movement at least every 48 hours, AND (2) without straining. If multiple PRN bowel medications ordered, start with polyethylene glycol, then lactulose, then oral bisacodyl, then bisacodyl suppository, then magnesium citrate, then tap w ater enema. Multiple medications may be given concomitantly for constipation., Routine dextrose 50% intravenous solution 25-50 mL(Linked Grou p 2) 1008 (JUN Hold - Provider: Admin Adt - Reason: Transfer to a Procedural area)1556 ([facility] Unhold - Provider: Admin Adt) 25-50 mL (12.5-25 g), Intravenous, EVERY 1 HOUR PRN, Starting Tue06/27/18 at 1707, Until Tue06/30/18 at 1420, Low blood sugar, For BG 50-70 mg/dL: Oral treatment preferred:?? If able to drink, give 120 mL Juice or Regular (not diet) soda OR If NPO, give 15 gram glucose 40% oral gel massaged into buccal mucosa OR if unconscious or uncooperative, give 12.5 gram (25 mL) Dextrose 50% IV OR, if no IV acce ss, give 1 mg Glucagon IM. For BG les s than 50 mg/dL: Oral treatment preferred:?? If able to drink, give 240 mL Juice or Regular (not diet) soda OR If NPO, give 30 gram glucose 40% oral gel massaged in buccal mucosa OR if unconscious or un cooperative, give 25 gram (50 mL) Dextrose 50% IV OR, if no IV access, give 1 mg Glucagon IM. Recheck BG in 30 minutes. May repeat juice, gel, dextrose or gluca pierce once per episode. To avoid extrava sation, push Dextrose 50% SLOWLY (3 mL over 1 minute) in a patent, running IV, preferably a central line. For persistent hypoglycemia, consider longer-acting t reatment for the duration of the active insulin., Routine gelatin adsorbable (GELFOAM) sponge (CANCELED) 1118 (G iven - Provider: Jhonny Oneal MD)1310 (Given - Provider: Jhonny Oneal MD) ONCE PRN, Starting Tue06/28/18 at 1118, Intra-Operative (Intra-Pr ocedure) glucagon (human recombinant) injection SolR 1 mg(Linke d Group 2) 1008 ([facility] Hold - Provider: Admin Adt - Reason: Transfer to a Procedural area)1556 ([facility] Unhold - Provider: Admin Adt) 1 mg, Intramuscular, EVERY 1 HOUR PRN, S tarting Tue06/27/18 at 1707, Until Tue06/30/18 at 1420, Low blood sugar, For BG 50-70 mg/dL: [...] Glucagon IM. For BG less than 50 mg/d L: Oral treatment preferred:?? If able to drink, give 240 mL Juice or Regular (not diet) soda OR If NPO, give 30 gram glucose 40% oral gel massaged in buccal muco sa OR if unconscious or uncooperative, g stella 25 gram (50 mL) Dextrose 50% IV OR, if no IV access, give 1 mg Glucagon IM. Recheck BG in 30 minutes. May repeat juice, gel, dextrose or glucagon once per e pisode. To avoid extravasation, push D extrose 50% SLOWLY (3 mL over 1 minute) in a patent, running IV, preferably a central line. For persistent hypoglycemia, consider longer-acting treatment for the duration of the active insulin., Routine glucose (GLUTOSE) 40% oral gel(Linked Group 2) 1008 ( [place] Hold - Provider: Admin Adt - Reason: Transfer to a Procedural area)1556 ([facility] Unhold - Provider: Admin Adt) 15-30 g, Buccal, EVERY 30 MIN PRN, Start ing Tue06/27/18 at 1707, Until Tue06/30/18 at 1420, Low blood sugar, For BG 50-70 mg/dL: Oral treatment preferred:?? If able to drink, give 120 mL Juice or Regul ar (not diet) soda OR If NPO, give 15 gr am glucose 40% oral gel massaged into buccal mucosa OR if unconscious or uncooperative, give 12.5 gram (25 mL) Dextrose 50% IV OR, if no IV access, give 1 mg Gluc agon IM. For BG less than 50 mg/dL: O ral treatment preferred:?? If able to drink, give 240 mL Juice or Regular (not diet) soda OR If NPO, give 30 gram glucose 40% oral gel massaged in buccal mucosa O R if unconscious or uncooperative, give 25 gram (50 mL) Dextrose 50% IV OR, if no IV access, give 1 mg Glucagon IM. Recheck BG in 30 minutes. May repeat juice, gel, dextrose or glucagon once per episo de. To avoid extravasation, push Dextr ose 50% SLOWLY (3 mL over 1 minute) in a patent, running IV, preferably a central line. For persistent hypoglycemia, consider longer-acting treatment for the d uration of the active insulin. 1 tube co ntains 15 grams of glucose (net weight of tube = 37.5 grams., Routine iodixanol (VISIPAQUE) 320 mg iodine/mL injection (CANC ELED) 1310 (Given - Provider: Jhonny Oneal MD) ONCE PRN, Starting Tue06/28/18 at 1310, U ntil Tue06/30/18 at 1420, Intra-Operative (Intra-Procedure), Routine lidocaine (XYLOCAINE) 10 mg/mL (1 %) injection 3 mg 3 mg (0.3 mL), Subcutaneous, ONCE PRN, 1 dose, Starting Tue06/27/18 at 1707, Until Tue06/30/18 at 1420, for discomfort with PIV insertion, Recovery (Recovery- Hospital Unit), Routine LORazepam (ATIVAN) tablet 0.5 mg 2037 (Given - Provider: Darlin Phelan RN) 0.5 mg, Oral, NIGHTLY PRN, Starting Tue06/28/18 at 2029, Until Tue06/30/18 at 1420, Anxiety, Routine oxyCODONE (ROXICODONE) immediate release tablet 10-15 mg(Linked Group 3) 0326 (Given - Provider: Royce Lu RN)0741 (Given - Provider: Yoav Shultz RN)1008 ([facility] Hold - Provider: Admin Adt - Reason: Transfer to a Procedural area)1439 ([facility] Unhold - Provider: Gisela Navarro RN) 0023 (Given - Provider: Darlin Phelan RN)0428 (See Alternative - Provider: Darlni Phelan RN)0916 (Given - Provider: Arthur Fisher, HEAVEN)1436 (Given - Provider: Krystle Dunn RN)1854 (Given - Provider: Dae Yanez RN) 0149 (Given - Provider: [place], HEAVEN)0756 (Given - Provider: Tiffany John I, HEAVEN) 10-15 mg, Oral, EVERY 4 HOURS PRN, Start ing Tu06/27/18 at 1725, Until Tue06/30/18 at 1420, Pain, severe pain (7-10), Initial dose 10mg. If pain control not adequate in 60 minutes, give additional 5mg, Routine 1530 (See Alternative - Provider: Gisela Navarro RN)1946 (Given - Provider: Darlin Phelan RN) 2251 (Given - Provider: [place], HEAVEN) oxyCODONE (ROXICODONE) immediate release tablet 5-10 m g(Linked Group 3) 0326 (See Alternative - Provider: Royce Lu RN)0741 (See Alternative - Provider: Yoav Shultz RN)1008 (MAR Hold - Provider: Admin Adt - Reason: Transfer to a Procedural area)1439 ([facility] Unhold - Provider: Gisela Navarro RN) 0023 (See Alternative - Provider: Darlin Phelan RN)0428 (Given - Provider: Darlin Restrepo I, HEAVEN)0916 (See Alternative - Provider: Arthur Fisher, HEAVEN)1436 (See Alternative - Provider: Krystle Dunn RN) 0149 (See Alternative - Provider: [place] RN)0756 (See Alternative - Provider: Tiffany Phelan RN) 5-10 mg, Oral, EVERY 4 HOURS PRN, Starti ng Tu06/27/18 at 1725, Until Tue06/30/18 at 1420, Pain, moderate pain (4-6), Initial dose 5mg. If pain control not adequate in 60 minutes, give additional 5mg, Routine 1530 (Given - Provider: Gisela Navarro, RN)1946 (See Alternative - Provider: Darlin Phelan RN) 1854 (See Alternative - Provider: Dae Yanez, HEAVEN)2251 (See Alternative - Provider: [place] RN) polyethylene glycol (MIRALAX) packet 17 g 1008 (JUN Ho ld - Provider: Admin Adt - Reason: Transfer to a Procedural area)1556 ([facility] Unhold - Provider: Admin Adt) 17 g, Oral, DAILY PRN, Starting Tue at 1707, Until Tue06/30/18 at 1420, Constipation, Administer if no bowel movement within 48 hours to achieve: (1) One bowel movement at least every 48 hours, AN D (2) without straining. If multiple PRN bowel medications ordered, start with polyethylene glycol, then lactulose, then oral bisacodyl, then bisacodyl suppository, then magnesium citrate, then tap wate r enema. Multiple medications may be giv en concomitantly for constipation., Routine sodium chloride 0.9 % flush 5-20 mL 5-20 mL, Intravenous, EVERY 1 MIN PRN, S tarting Tue06/27/18 at 1707, Until Tue06/30/18 at 1420, flush, Flush pertains to all indwelling lines. Flush per protocol found in the job aid using the link provid ed on this medication record., Recovery (Recovery-Hospital Unit) , Routine Linked Groups Order Group 1: POCT Fingerstick Glucose (CANCELED) Routine, EVERY 4 HOURS, First occurrence on Tue06/30/18 at 0400, Until Specified
Consider choosing FOUR TIMES A DAY BEFORE MEALS AND AT BEDTIME as frequency for: Patients who have good hypoglyce daphney awareness: -Patients who are eating meals during the day and sleeping at night -Patient who are otherwise stable And insulin lispro (HumaLOG) VIAL injection 1-4 UnitsJump to med 1-4 Units, Subcutaneous, EVERY 4 HOURS, First dose on Tue06/30/18 at 0130, Until Discontinued
CORRECTION BOLUS Sensitive to insulin lean patient or total daily dose of all insulin needed to achieve glycemic cont rol less than 30 units BG 140 - 160 Give 1 unit BG 161 - 200 Give 2 units BG 201 - 240 Give 3 units BG greater than 240, give 4 units and recheck BG in 2 hours. If less than 240 after two hours, give no insulin and resume prior schedule. If BG remains greater than 240, repeat 4 units (no mor e than three times) & call for new basal insulin orders. DO NOT hold if NPO, unless specifically told to do so.
Routine Group 2: glucose (GLUTOSE) 40% oral gelJump to med 15-30 g, Buccal, EVERY 30 MIN PRN, Start ing Tue06/27/18 at 1707, Until Tue06/30/18 at 1420, Low blood sugar
For BG 50-70 mg/dL: Oral treatment preferred:?? If able to drink, give 120 mL Juice or Regular (not diet) soda OR If NPO, gi ve 15 gram glucose 40% oral gel massaged into buccal mucosa OR if unconscious or uncooperative, give 12.5 gram (25 mL) Dextrose 50% IV OR, if no IV access, give 1 mg Glucagon IM. For BG less th an 50 mg/dL: Oral treatment preferred:?? If able to drink, give 240 mL Juice or Regular (not diet) soda OR If NPO, give 30 gram glucose 40% oral gel massaged in buccal mucosa OR if unconscious or un cooperative, give 25 gram (50 mL) Dextrose 50% IV OR, if no IV access, give 1 mg Glucagon IM. Recheck BG in 30 minutes. May repeat juice, gel, dextrose or glucagon once per episode. T o avoid extravasation, push Dextrose 50% SLOWLY (3 mL over 1 minute) in a patent, running IV, preferably a central line. For persistent hypoglyce daphney, consider longer-acting treatment fo r the duration of the active insulin. 1 tube contains 15 grams of glucose (net weight of tube = 37.5 grams.
Routine Or dextrose 50% intravenous solution 25-50 mLJump to med 25-50 mL (12.5-25 g), Intravenous, EVERY 1 HOUR PRN, Starting Tue06/27/18 at 1707, Until Tue06/30/18 at 1420, Low blood sugar
For BG 50-70 mg/dL: Oral treatment preferred:?? If able to drink, give 120 mL Juice or Regular (not diet) soda OR If NPO, give 15 gram glucose 40% oral gel massaged into buccal mucosa OR if unconscious or uncooperative, give 12.5 gram (25 mL) Dextrose 50% IV OR, if no IV access, give 1 mg Glucagon IM. &nbsp ; For BG less than 50 mg/dL: Oral [...] Recheck BG in 30 minutes. May repeat ju ice, gel, dextrose or glucagon once per episode. To avoid extravasation, push Dextrose 50% SLOWLY (3 mL over 1 minute) in a patent, running IV, preferably a central line. For pe rsistent hypoglycemia, consider longer-a cting treatment for the duration of the active insulin.
Routine Or glucagon (human recombinant) injection SolR 1 mgJump to med 1 mg, Intramuscular, EVERY 1 HOUR PRN, S tarting Tue06/27/18 at 1707, Until Tue06/30/18 at 1420, Low blood sugar
For BG 50-70 mg/dL: Oral treatment preferred:?? If able to drink, give 120 mL Ju ice or Regular (not diet) soda OR If NPO , give 15 gram glucose 40% oral gel massaged into buccal mucosa OR if unconscious or uncooperative, give 12.5 gram (25 mL) Dextrose 50% IV OR, if no IV access, gi ve 1 mg Glucagon IM. For BG les s than 50 mg/dL: Oral treatment preferred:?? If able to drink, give 240 mL Juice or Regular (not diet) soda OR If NPO, give 30 gram glucose 40% oral gel massa ged in buccal mucosa OR if unconscious o r uncooperative, give 25 gram (50 mL) Dextrose 50% IV OR, if no IV access, give 1 mg Glucagon IM. Recheck BG in 30 minutes. May repeat juice, gel, dext gia or glucagon once per episode. &nbsp ;To avoid extravasation, push Dextrose 50% SLOWLY (3 mL over 1 minute) in a patent, running IV, preferably a central line. For persistent hypog lycemia, consider longer-acting treatmen t for the duration of the active insulin.
Routine Group 3: oxyCODONE (ROXICODONE) immediate release tablet 5-10 mgJump to med 5-10 mg, Oral, EVERY 4 HOURS PRN, Starti ng Tue 06/27/18 at 1725, Until Tue06/30/18 at 1420, Pain, moderate pain (4-6)
Initial dose 5mg. If pain control not adequate in 60 minutes, give additional 5mg
Routine Or oxyCODONE (ROXICODONE) immediate release tablet 10-15 mgJump to med 10-15 mg, Oral, EVERY 4 HOURS PRN, Start ing 06/27/18 at 1725, Until 06/30/18 at 1420, Pain, severe pain (7-10)
Initial dose 10mg. If pain control not adequate in 60 minutes, give additional 5mg
Routine documented in this encounter Care Teams Car Examiner Relationship Specialty Start Date End Date Danielle Rojas MD PCP - General Internal Medicine 07/21/16 06/28/[address] [place] [address] documented as of this encounter
--- OUTSIDE RECORDS SUMMARY | 2021-10-30 01:54 | XMS_ITS | Encounter Summary ---
:1960 Author Organization [place] [address] Care Team Providers Name Role Phone Danielle Rojas MD Primary Care Provider Reason for Visit Reason Comments Claudication My legs are really painful Encounter Details Date Type Department Care Team Description 12/14/2016 Office Visit Vascular Surgery at Ellen Koch [facility] Leg pain, bilateral; [facility] [address] Aortoiliac occlusive disease; [facility] VASCULAR SURG PRECIOUS Atherosclerosis of pechanga artery of [facility] t lower extremity with intermittent [place] [id number] [phone] Social History Tobacco Use Types Packs/Day Years Used Date Former Smoker 1 40 Smokeless Tobacco: Never Used Alcohol Use Standard Drinks/Week Comments Yes 4 (1 standard drink = 0.6 oz pure alcoho l) Sex Assigned at Date Recorded Not on file documented as of this encounter Last Filed Vital Signs Vital Sign Reading Time Taken Comments Blood Pressure 109/68 12/14/2016 11:08 AM EDT Pulse 81 12/14/2016 11:08 AM EDT Temperature - - Respiratory Rate - - Oxygen Saturation - - Inhaled Oxygen Concentration - - Weight 81.2 kg (179 lb) 12/14/2016 11:08 AM EDT Height 167.6 cm (5' 6) 12/14/2016 11:08 AM EDT Body Mass Index 28.89 12/14/2016 11:08 AM EDT documented in this encounter Patient Instructions Patient InstructionsEllen Koch PA - 12/14/2016 11:00 AM EDT Mr. Berry is currently experiencing several different types of lower extremity pain. I am concerned that much of this pain is unrelated to his arterial disease. The pattern of pain that extends from his lateral hips into the thighs, lateral lower legs, and then feet bilaterally that is present with standing and laying in addition to with activity that is not easily improved with rest may be relatedto spinal disease. Based on his pulse exam, REYMUNDO assessment, and his description of the pain, I do not think this is consistent with his arterial disease. He does appear to be experiencing right calf claudication at a distance of about 50 yards which is improved with rest but that is not the type of pain that is currently impairing him primarily. I have encouraged him to contact his primary care physician and consider further evaluation of his back and hips for other orthopedic disease that could explain his symptoms. We will plan to see him for follow-up in 6 months with repeat ABIs at that time. If there is no other disease noted on other evaluation that would account for his symptoms then we will pursue further evaluation of his arterial disease. However, at this point I would encourage medical management with antiplatelet and statin therapy as well as optimization of his diabetic control. He should continue to monitor his blood pressureto ensure adequate management and should remain not smoking. I encouraged him to walk for exercise as tolerated to help maintain perfusion. However I understand that with his current complaints this may be difficult to participate in. Please do not hesitate to call with questions/concerns. documented in this encounter Progress Notes Ellen Koch PA - 12/14/2016 11:00 AM EDT This patient returned to the vascular clinic today for a follow up visit for arterial disease. Mr. Berry has a complicated medical history including aortoiliac occlusive disease and coronary disease. He experienced an NSTEMI and was evaluated with a cardiac cath at an outside hospital via a right arm approach because of the presence of aortoiliac disease. He then underwent CABG in June 2016 at [facility] with right GSV harvest. Today, he returned for follow and was last seen in our practice in October 2015 for complaints of claudication. He now complains of 5 out of 10 steady aching pain at rest which is present coursing from the lateral hip, into the anterior thigh, and across the knee into the lateral lower leg. This extends into the bottom of both feet and in addition his right great toe is numb. These symptoms are worse onthe right than the left and are present in multiple positions including while seated and laying flat. They somewhat improve with standing but do not completely johanny. In addition as soon as he stands he experiences grinding pain in both hips which becomes more severe with walking and begins to shoot down both legs. He does admit that if he continues to push he will experience right calf pain at a distance of about 50 yards and this will eventually begin on the left but is not as significant. The pain in the calf does johanny with rest. He is not experiencing arterial rest pain and has not experienced any tissue loss. In the past he has had difficulty with maintaining compliance with medical recommendations because of financial constraints. However, he did quit smoking in June after his heart attack and has continued taking aspirin and a statin since that time. He reports his blood pressure is well-controlled and his diabetic control has also improved. He has not completed a cardiac rehabilitation program but stopped fci through because of difficult symptoms related to his diverticulitis. Those symptoms are now improving and he hopes to return to cardiac rehabilitation. He has not been experiencing any chest pain or shortness of breath. PMHx: Patient Active Problem List Diagnosis Date Noted ??? Leg pain, bilateral 12/15/2016 ??? Aortoiliac occlusive disease 12/15/2016 ??? S/P CABG (coronary artery bypass graft) 07/12/2016 ??? Atherosclerosis of pechanga artery of right lower extremity with intermittent claudication 07/09/2016 ??? Hypertension 07/09/2016 ??? Financial difficulties--- barrier to medication use 07/09/2016 ??? Coronary artery disease 07/09/2016 ??? Non ST elevation IA due to severe 3vD-- awaiting for CABG Tuesday07/08/2016 ??? Diabetes mellitus, type 2 03/17/2015 ??? Hyperlipidemia 03/17/2015 ??? Osteoarthritis 03/17/2015 SxHx: Past Surgical History: Procedure Laterality Date ??? PRO CABG, ARTERIAL, TWO N/A 07/12/2016 @CABG, USING 2 CORONARY ARTERIAL GRAFTS (WRVU 39.88) performed by Valentino Arredondo MD at [facility] MAIN OR ??? PRO CABG, ARTERY-VEIN, TWO N/A 07/12/2016 @CABG, TWO VENOUS GRAFTS & ARTERIAL GRAFT (WRVU 7.93) performed by Valentino Arredondo MD at [facility] MAIN OR ??? PRO ENDOSCOPY W/VIDEO-ASST VEIN HARVEST, CABG Right 07/12/2016 ENDOSCOPIC HARVEST VEIN(S) FOR CABG (WRVU 0.31) performed by Valentino Arredondo MD at [facility] MAIN OR Social Hx: Social History Substance Use Topics ??? Smoking status: Former Smoker Packs/day: 1.00 Years: 40.00 ??? Smokeless tobacco: Never Used ??? Alcohol use 2.4 oz/week 4 Cans of beer per week Medications: Medications 12/15/16 1332 Medication Sig Taking? isosorbide mononitrate (IMDUR) 60 mg Tablet Sustained Release 24 hr take 1 tablet by mouth once daily Yes furosemide (LASIX) 20 mg Tablet take 1 tablet by mouth once daily Yes lisinopril (PRINIVIL;ZESTRIL) 5 mg Tablet Take 1 tablet by mouth daily. Yes insulin NPH - insulin regular 70/30 (NOVOLIN MIX 70/30) Suspension Inject 15-25 Units subcutaneously2 times daily (before meals). 25 units before breakfast and 15 units before dinner Yes acetaminophen (TYLENOL) 500 mg Tablet Take 2 tablets by mouth every 6 hours as needed for Pain. Yes aspirin 81 mg Tablet, Chewable Take 81 mg by mouth daily. Yes atorvastatin (LIPITOR) 80 mg Tablet Take 1 tablet by mouth every evening. Yes meTOPROLOL tartrate (LOPRESSOR) 100 mg Tablet Take 1 tablet by mouth 2 times daily. Yes Insulin Syringe-Needle U-100 1 mL 31 gauge x 5/16 Syringe 1 Box by [facility].(Non- Drug; Combo Route) route 2 times daily. Yes buPROPion (WELLBUTRIN SR OR ZYBAN) 150 mg Tablet Sustained Release Take 150 mg by mouth 2 times daily. Yes gabapentin (NEURONTIN) 400 mg Capsule Take 400 mg by mouth 3 times daily. Yes glipiZIDE (GLUCOTROL) 10 mg Tablet Take 20 mg by mouth daily. Yes metFORMIN (GLUCOPHAGE) 500 mg Tablet Take 500 mg by mouth 2 times daily (with meals). Yes omeprazole (PRILOSEC) 40 mg Capsule, Delayed Release(E.C.) Take 40 mg by mouth daily. Yes FLUoxetine (PROZAC) 40 mg Capsule Take 80 mg by mouth daily. Yes Allergies: No Known Allergies Review of Systems: Constitutional (weight change, fever) - Denies Neuro (dizziness, seizures, numbness, tingling) - Denies Eyes (vision) - Denies Ears, nose, throat (hearing) - Denies Cardiovascular (CP) - Denies Respiratory (SOB) - Denies GI (abd pain, nausea, emesis, blood in stool) - Denies (hematuria, dysuria, frequency) - Denies Muscoloskeletal (extremity pain, weakness) - as per HPI Skin (ulcers, rashes) - Denies All other ROS negative Physical Exam: Vitals: Vitals: 12/14/16 1108 BP: 109/68 Pulse: 81 Gen: No acute distress. HEENT: Normocephalic, atraumatic. No scleral icterus. Neck: Supple, no JVD. Heart: Regular rate and rhythm. (+) S1/S2. No snaps, clicks, rubs, or murmurs. Lungs: Regular respiratory rate with no increased work of breathing. Clear to auscultation bilaterally. Abd: Soft, nontender, not distended. Extremities: warm, pink, no tissue loss. Gait antalgic with use of cane. Vascular Exam: R L Carotid 2/2 bruit (-) 2/2 bruit (-) Radial 2/2 2/2 Femoral 1/2 1/2 Popliteal 0/2 0/2 DP 0/2 1/2 PT 0/2 2/2 Psych: AAOx3 Labs/Studies: ABIs: 12/14/16 Right ?Pressure (mm Hg) ?? REYMUNDO ??Waveform ? TBI ?? Brachial Artery ?132 ? Dorsalis Pedis (Ankle) Artery ?53 ?0.40 ??Monophasic ? Posterior Tibial (Ankle) Artery ??47 ?0.36 ??Monophasic ? Great Toe ?61 ?0.46 ?? Left ? Pressure (mm Hg) ?? REYMUNDO ??Waveform ?? TBI ?? Brachial Artery ?130 ? Dorsalis Pedis (Ankle) Artery ?111 ? 0.84 ??Biphasic ? Posterior Tibial (Ankle) Artery ??109 ? 0.83 ??Biphasic ? Great Toe ? 88 ?0.67 ?? Interpretation: RIGHT: Moderate lower extremity arterial occlusive disease. Deterioration in ABIs with no significant change in TBI compared to previous exam. LEFT: Mild lower extremity arterial occlusive disease. Deterioration in TBI with no significant change in ABIs compared to previous exam. Note current TBI is similar to 02/10/2015 study. Impression: Aortoiliac occlusive disease and PAD with right calf claudication Bilateral leg and hip pain (unspecified) Recommendations: Mr. Berry is currently experiencing several different types of lower extremity pain. I am concerned that much of this pain is unrelated to his arterial disease. The pattern of pain that extends from his lateral hips into the thighs, lateral lower legs, and then feet bilaterally thatis present with standing and laying in addition to with activity that is not easily improved with rest may be related to spinal disease. Based on his pulse exam, REYMUNDO assessment, and his description of the pain, I do not think this is consistent with his arterial disease. He does appear to be experiencing right calf claudication at a distance of about 50 yards which is improved with rest but that is not the type of pain that is currently impairing him primarily. I have encouraged him to contact his primary care physician and consider further evaluation of his back and hips for other orthopedic disease that could explain his symptoms. We will plan to see him for follow-up in 6 months with repeat ABIs at that time. If there is no other disease noted on other evaluation that would account for his symptoms then we will pursue further evaluation of his arterial disease. However, at this point I would encourage medical management with antiplatelet and statin therapy as well as optimization of his diabetic control. He should continue to monitor his blood pressureto ensure adequate management and should remain not smoking. I encouraged him to walk for exercise as tolerated to help maintain perfusion. However I understand that with his current complaints this may be difficult to participate in. Please do not hesitate to call with questions/concerns. 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
--- OUTSIDE RECORDS SUMMARY | 2021-10-30 01:54 | XMS_ITS | Encounter Summary ---
:1960 [place] [address] Care Team Providers Name Role Phone Danielle Rojas MD Primary Care Provider Reason for Visit Auth/Cert Specialty Diagnoses / Procedures Referred By Contact Refer red To Contact Diagnoses Critical lower limb ischemia R CLI AND CELLULITIR LAEG Procedures EMERGENCY IPI Referral ID Status Reason Start Date Expiration Date Visits Requ ested Visits Authorized [id number] 1 1 Encounter Details Date Type Department Care Team Description 06/28/2018 Anesthesia Event Main Operating Room Gregory Pablo MD [facility] [place] [address] [facility] [place] Elisha Ryan MD [facility] [place] [address] [place] [address] Anesthesia Record Procedure Summary Procedure Name Responsible Anesthesia Start Anesthesia Stop Anesthesiologist Time Time @ENDARTERECTOMY, Gregory Hawkins MD 06/28/18 1005 06/28/18 14 24 ILIOFEMORAL W OR W/O PATCH GRAFT (WRVU 19.86) (Right Groin) Events Date Time Event Comment 06/28/2018 0934 1005 AN Verify 1005 Start 1005 An Start Data 1020 An Induction 1024 An Intubation 1033 Anesthesia Ready 1136 ABG Data Arterial Blood G as result: pH 7.421 pCO2 35.4 pO2 136.0 %O2 Sa t 100 FiO2 56 HCO3 22.5 BE -2.0 Hb 12.9 K 3 .97 Glucose 127 Lactate 1.42 1403 Extubation/LMA Out 1416 an stop data 1422 Recovery or ICU Handoff Patient care was transferred to the destination unit staff after review of the patient's medica l history, current anesthetic/surgi pavan status and plan, according to the Provider Handoff Checklist. 1424 Stop Name Total fentaNYL 100 mcg IV Lidocaine 50 mg Propofol 280 mg Rocuronium 100 mg PHENYLephrine 600 mcg Heparin 10,000 Units Protamine 35 mg Ondansetron 8 mg Neostigmine 2.5 mg Glycopyrrolate 0.4 mg clindamycin (CLEOCIN) 900mg in dextrose 5% 50mL 0 mg PHENYLephrine INF 10,320 mcg Esmolol 20 mg piperacillin-tazobactam (ZOSYN) 3.375 g vial attach to sodium chloride 3.375 g 0.9% 50 mL Mini-Bag Plus Lactated Ringers 400 mL Sodium Chloride 0.9% 1,000 mL Agents Name O2 Air N2O Sevoflurane (et) Blood No blood administrations on file. Lines, Drains, and Airways Type Details Placement Removal Wound heel; other (see comments) 06/28/18 0406 by 06/25 0816 by (heel cracks); 07/22/18; Dianne Giron 0816 M, RN Incision 07/12/16; 1327; leg; EVH; 07/12/16 1327 by 07/22 0816 by #11 stab incision top Grace Gonzalez RN Willia ms, Abigayle groin; 07/22/18; 0816 M, RN Incision 07/12/16; 1328; chest; 07/12/16 1328 by 07/22/18 0816 by midline; 07/22/18; 0816 Grace Gonzalez RN Will Dianne sood RN PIV 06/27/18; 1754; median 06/27/18 1754 by 06/29/182041 by filemon wynne (underside of arm)Daisy Thomas H, Ide rstine Rn, right; fcji-obo-rzogpy HEAVEN Farrell RN catheter system; 20 gauge, 1 in length; thm rn ; distraction, intradermal injection, tolerated well; 0; site symptomatic, catheter/device intact; 06/29/18; 2041 PIV 06/27/18; 1755; median 06/27/18 1755 by 06/30/18 1116 by cubital vein (antecubital [place] Villa, Samia Parada, angelo), left; RN 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 APPRENTICE ivgt-zng-rpimlt catheter system; 20 gauge, 1 in length, 3/4 in length; thm rn ; distraction, intradermal injection, tolerated well; 1; basilic vein (medial side of arm), left; 06/30/18; 1116 ETT Mask Ventilation: Adjunct 06/28/18 1029 by 06/28 1403 by (2) (red OPA); ETT Type: Elisha Ryan MD Moss, Linzi B, MD Cuffed, Oral; ETT Size: 8 mm; Mac Blade: 4; Notes: Asleep, Pre-O2; Attempts: 1; Laryngoscopy Grade: 2; ETT Placement Verified By: Auscultation, Capnometry, Visual; Secured at Teeth: 22 cm; Inserted by: MD Connor Urethral Catheter 06/28/18; 1030; Surgery 06/28/18 1030 by 06/29 0905 by longer than 2 hours, Juliana Rock Wilkins, Diane V, Physician order, Need for RN SIGNALLING AND COMMUNICATIONS ENGINEER intraoperative urine output monitoring; Prolonged Immobilization, Physician order; indwelling double lumen catheter; inserted at this facility (Inserted by Shailesh BAKER. ); 1; 5; 10; none; drainage bag to dependent drainage; 06/29/18; 0905 PIV 06/28/18; 1041; metacarpal 06/28/18 1041 by 11/10 204 by von vein (top of hand), right; Gregory Hawkins MD I derstine Rn, ksld-mdv-sbqrvr catheter Gricel Farrell RN system; 16 gauge; Shruthi; no longer indicated, catheter/device intact; 06/29/18; 204 Arterial Line 06/28/18; 1041; radial 06/28/18 1041 by 06/28/18 1533 by artery, left; Gregory Garcia MD Langland s, Kathleen Sterile Prep, Sterile M, RN Gloves; no longer indicated, catheter intact; 06/28/18; 1533 Incision 06/28/18; 1059; groin; 06/28/18 1059 by 07/22/18 0816 by 07/22/18; 0816 Juliana oRck Williams, Ab igayle RN M, RN documented in this encounter Social History Tobacco Use Types Packs/Day Years Used Date Former Smoker 1 40 Smokeless Tobacco: Never Used Alcohol Use Standard Drinks/Week Comments Yes 4 (1 standard drink = 0.6 oz pure alcoho l) Sex Assigned at Date Recorded Not on file documented as of this encounter OR Notes Anesthesia Postprocedure Evaluation - Elisha Ryan - 06/28/2018 3:04 PM EST [facility] Department of Anesthesiology Post-procedure Note Patient: Oleg Berry Procedure Summary Date: 06/28/18 Room / Location: [address] MAIN OR Anesthesia Start: 1005 Anesthesia Stop: 1424 Procedures: @ENDARTERECTOMY, ILIOFEMORAL W OR W/O PATCH GRAFT (WRVU 19.86) (Right Groin) REVSC OPN\PRQ ILIAC ART W\STNT PLMT & ANGIOP SAME VSL (WRVU 10) (Right Groin) Diagnosis: (CLI) Surgeon: Lamine Oneal MD Responsible Provider: Gregory Hawkins MD Anesthesia Type: general ASA Status: 3 All Anesthesia Providers: Anesthesiologist: Gregory Hawkins MD Care Consultant: Elisha Ryan MD Vitals Value Taken Time BP 129/68 06/28/2018 3:00 PM Temp 36.6 ??C (97.9 ??F) 06/28/2018 2:18 PM Pulse 76 06/28/2018 3:01 PM Resp 9 06/28/2018 3:01 PM SpO2 94 % 06/28/2018 3:01 PM Pain Level 0 06/28/2018 2:18 PM Vitals shown include unvalidated device data. Patient Location: PACU/[facility] Level of Consciousness: Awake and Alert Pain Management: Satisfactory Analgesia PONV: None Cardiovascular Status: At Baseline and Hemodynamically Stable Respiratory Status: At Baseline and Room Air Postoperative Fluid Status: Intravascular EUvolemia Possible Anesthetic Complications: NONE apparent at time of evaluation Final Primary Anesthesia Type: General (The anesthetic type performed was the same as planned.) Comments: EKG ordered due to ? Of ST elevations on monitor in PACU. 12-lead negative for acute changes and patient denying any chest pain or discomfort. Elisha Ryan MD Anesthesia Preprocedure Evaluation - Gregory Hawkins MD - 06/28/2018 4:07 AM EST Pre-Anesthesia Evaluation for: Oleg Berry a 57 y.o. male. Procedure(s): @ENDARTERECTOMY, COMMON FEMORAL W OR W/O PATCH GRAFT (WRVU 15.31) REVSC OPN\PRQ ILIAC ART W\STNT PLMT & ANGIOP SAME VSL (WRVU 10) Patient Active Problem List Diagnosis ??? Critical lower limb ischemia ??? Leg pain, bilateral ??? Aortoiliac occlusive disease ??? S/P CABG (coronary artery bypass graft) ??? Atherosclerosis of [place] artery of right lower extremity with intermittent claudication ?? 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 ??? Hypertension ??? Financial difficulties--- barrier to medication use ??? Coronary artery disease 06/2016: NSTEMI. Cath showing 3vD. Surgery recommended. ??? Non ST elevation KS due to severe 3vD-- awaiting for CABG Tuesday ??? Diabetes mellitus, type 2 ??? Hyperlipidemia ??? Osteoarthritis No past medical history on file. Past Surgical History: Procedure Laterality Date ??? PRO CABG, ARTERIAL, TWO N/A 07/12/2016 @CABG, USING 2 CORONARY ARTERIAL GRAFTS (WRVU 39.88) performed by Valentino Arredondo MD at [facility] MAIN OR ??? PRO CABG, ARTERY-VEIN, TWO N/A 07/12/2016 @CABG, TWO VENOUS GRAFTS & ARTERIAL GRAFT (WRVU 7.93) performed by Valentino Arredondo MD at [facility] MAIN OR ??? PRO ENDOSCOPY W/VIDEO-ASST VEIN HARVEST, CABG Right 07/12/2016 ENDOSCOPIC HARVEST VEIN(S) FOR CABG (WRVU 0.31) performed by Valentino Arredondo MD at [facility] MAIN OR Social History Tobacco Use ??? Smoking status: Former Smoker Packs/day: 1.00 Years: 40.00 Pack years: 40.00 ??? Smokeless tobacco: Never Used Substance Use Topics ??? Alcohol use: Yes Alcohol/week: 2.4 oz Types: 4 Cans of beer per week Social History Substance and Sexual Activity Drug Use Yes ??? Frequency: 3.0 times per week ??? Types: Marijuana No Known Allergies Medications: MAR and/or home medications have been reviewed. Physical Exam: Most Recent Vitals: 06/28/18 0322 BP: 128/76 Pulse: 80 Resp: 16 Temp: 36.7 ??C (98.1 ??F) SpO2: 98% There is no height or weight on file to calculate BMI. Airway Assessment: Mallampati: II TM distance: >3 FB Neck ROM: full Cardiovascular Assessment: Pulmonary Assessment: Dental Assessment: Comment: Some missing, remainder solid. 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 Hx includes PAD, CAD s/p CABG, NIDM, HTN former 40 pack year smoker, GERD MJ use, occasional etoh. Patient continues to smoke. Activity limited by right leg claudication. NPO today. No problem with prior anesthesia. OPA to mask, easy intubation w/ MAC 4 for CABG in 2017 Intraop BROOKLYNN from CABG (post-pump) showed no LVWMA, LVEF 65%, trace MR, trace PI Plan for GAETT, large bore IV access & arterial line Region - [facility] Informed Consent: Anesthetic plan and risks discussed with patient. Use of blood products discussed with patient who consented to blood products. Plan discussed with STEAM BOX HAND. PAT Staff Note documented in this encounter Plan of Treatment Not on filedocumented as of this encounter Visit Diagnoses Not on filedocumented in this encounter Administered Medications Inactive Administered Medications - up to 3 most recent administrations Medication Order MAR Action Action Date Dose Rate Site esmolol (BREVIBLOC) injection Given 06/28/2018 10:21 AM EST 20 mg PRN, Starting on Tue06/28/18 at 1021, Until Tue06/28/18 at 1426, Anesthesia Intra-op, Routine fentaNYL 50 mcg/mL multi-dose injection Given 06/28/2018 1:35 PM EST 12.5 mcg PRN, Starting on Tue06/28/18 at 1116, Until Tue06/28/18 at 1426, Anesthesia Intra-op, Routine Given 06/28/2018 12:51 PM EST 12.5 mcg Given 06/28/2018 11:49 AM EST 25 mcg glycopyrrolate (ROBINUL) multi-dose inje ction Given 06/28/2018 1:47 PM EST 0.4 mg PRN, Starting on Tue06/28/18 at 1347, Until Tue06/28/18 at 1426, Anesthesia Intra-op, Routine heparin (porcine) injection Given 06/28/2018 12:55 PM EST 1,000 Units PRN, Starting on Tue06/28/18 at 1133, Until Tue06/28/18 at 1426, Anesthesia Intra-op, Routine Given 06/28/2018 12:18 PM EST 2,000 Units Given 06/28/2018 11:33 AM EST 7,000 Units lactated Ringers infusion New Bag 06/28/2018 10:12 AM EST CONTINUOUS PRN, Starting on Tue06/28/18 at 1012, Until Tue06/28/18 at 1426, Anesthesia Intra-op lidocaine (PF) (XYLOCAINE) 100 mg/5 mL (2 %) Given 09/2018 10:19 AM EST 50 mg injection PRN, Starting on Tue06/28/18 at 1019, Until Tue06/28/18 at 1426, Anesthesia Intra-op, Routine neostigmine (BLOXIVERZ) injection Given 06/28/2018 1:47 PM EST 2.5 mg PRN, Starting on Tue06/28/18 at 1347, Until Tue06/28/18 at 1426, Anesthesia Intra-op, Routine ondansetron (ZOFRAN) injection Given 06/28/2018 1:45 PM EST 8 mg PRN, Starting on Tue06/28/18 at 1345, Until Tue06/28/18 at 1426, Anesthesia Intra-op, Routine PHENYLephrine Rate/Dose Change 06/28/2018 2:06 10 mcg/min 7.5 mL/hr (MITCH-SYNEPHRINE) 20 mg in PM EST sodium chloride 250 mL (standard ADULT & Pedi greater than 20kg) infusion CONTINUOUS PRN, Starting on Tue06/28/18 at 1027, Until Tue06/28/18 at 1426, Anesthesia Intra-op, Routine Rate/Dose Change 06/28/2018 2:00 PM EST 20 mcg/min 15 mL/hr Rate/Dose Change 06/28/2018 1:53 PM EST 30 mcg/min 22.5 mL/hr PHENYLephrine in NS (PF) (MITCH-SYNEPHRINE) 0.8 Given 1:59 PM EST 80 mcg mg/10 mL (80 mcg/mL) multi-dose injection Syrg PRN, Starting on Tue06/28/18 at 1050, Until Tue06/28/18 at 1426, Anesthesia Intra-op, Routine Given 06/28/2018 1:35 PM EST 80 mcg Given 06/28/2018 11:31 AM EST 120 mcg piperacillin-tazobactam (ZOSYN) New Bag 06/29/2018 9:18 AM 3.375 g 12.5 mL/hr 3.375 g vial attach to sodium EST chloride 0.9% 50 mL Mini-Bag Plus 3.375 g, Intravenous, EVERY 8 HOURS, First dose on Tue06/27/18 at 1730, Until Discontinued, Administer over 4 Hours, Warning Vesicant/Irritant Medication Do not administer or Y-site with lactated ringers., Indication for (Active or Suspected): Skin/Skin Structure New Bag 06/29/2018 2:24 AM EST 3.375 g 12.5 mL/hr New Bag 06/28/2018 5:51 PM EST 3.375 g 12.5 mL/hr propofol (DIPRIVAN) 10 mg/mL bolus injection Given 9 1:38 PM EST 30 mg (Anesthesia) PRN, Starting on Tue06/28/18 at 1020, Until Tue06/28/18 at 1426, Anesthesia Intra-op Given 06/28/2018 11:00 AM EST 50 mg Given 06/28/2018 10:20 AM EST 200 mg protamine injection Given 06/28/2018 1:29 PM EST 10 mg PRN, Starting on Tue06/28/18 at 1313, Until Tue06/28/18 at 1426, Anesthesia Intra-op, Routine Given 06/28/2018 1:13 PM EST 25 mg rocuronium (ZEMURON) multi-dose injectio n Given 06/28/2018 11:28 AM EST 50 mg PRN, Starting on Tue06/28/18 at 1020, Until Tue06/28/18 at 1426, Anesthesia Intra-op, Routine Given 06/28/2018 10:20 AM EST 50 mg sodium chloride 0.9% infusion New Bag 06/28/2018 1:20 PM EST CONTINUOUS PRN, Starting on Tue06/28/18 at 1030, Until Tue06/28/18 at 1426, Anesthesia Intra-op New Bag 06/28/2018 10:30 AM EST New Bag 06/28/2018 10:29 AM EST documented in this encounter Care Teams Nurse Advisor Relationship Specialty Start Date End Date Danielle Rojas MD PCP - General Internal Medicine 07/21/16 06/28/[address] [place] [address] documented as of this encounter
--- OUTSIDE RECORDS SUMMARY | 2021-10-30 01:54 | XMS_ITS | Encounter Summary ---
:1960 Author Organization [facility] [place] [address] Care Team Providers Name Role Phone Danielle Rojas MD Primary Care Provider Encounter Details Date Type Department Care Team Description 12/14/2016 Hospital Encounter Vascular Lab at [facility], P[facility] ([facility] [place] [id number] Social History Tobacco Use Types Packs/Day Years Used Date Former Smoker 1 40 Smokeless Tobacco: Never Used Alcohol Use Standard Drinks/Week Comments Yes 4 (1 standard drink = 0.6 oz pure alcoho l) Sex Assigned at Date Recorded Not on file documented as of this encounter Medications at Time of Discharge Medication Sig Dispensed Refills Start Date End Date acetaminophen Take 2 tablets by 30 tablet 1 07/16/2016 (TYLENOL) 500 mg mouth every 6 hours as Tablet needed for Pain. aspirin 81 mg Tablet, Take 81 mg by mouth 30 tablet 3 07/16 Chewable daily. atorvastatin Take 1 tablet by mouth 30 tablet 3 07/16/2016 (LIPITOR) 80 mg every evening. Tablet Insulin 1 Box by 100 Syringe 3 07/16/2016 Syringe-Needle U-100 Misc.(Non-Drug; Combo 1 mL 31 gauge x 5/16 Route) route 2 times Syringe daily. gabapentin Take 400 mg by mouth 3 0 (NEURONTIN) 400 mg times daily. Capsule FLUoxetine (PROZAC) Take 80 mg by mouth 0 40 mg Capsule daily. isosorbide take 1 tablet by mouth 0 08/04/2016 mononitrate (IMDUR) once daily 60 mg Tablet Sustained Release 24 hr furosemide (LASIX) 20 take 1 tablet by mouth 0 07/25/2019 mg Tablet once daily lisinopril Take 1 tablet by mouth 90 tablet 11 08/05/2016 (PRINIVIL;ZESTRIL) 5 daily. mg TabletIndications: Essential hypertension insulin NPH - insulin Inject 15-25 Units 3 mL 3 201607/16/2017 regular 70/30 subcutaneously 2 times (NOVOLIN MIX 70/30) daily (before meals). Suspension 25 units before breakfast and 15 units before dinner meTOPROLOL tartrate Take 1 tablet by mouth 60 tablet 12 06/2407/25/2019 (LOPRESSOR) 100 mg 2 times daily. Tablet buPROPion (WELLBUTRIN Take 150 mg by mouth 2 0 07/20/2018 SR OR ZYBAN) 150 mg times daily. Tablet Sustained Release glipiZIDE (GLUCOTROL) Take 20 mg by mouth 0 07/25/2019 10 mg Tablet daily. metFORMIN Take 500 mg by mouth 2 0 (GLUCOPHAGE) 500 mg times daily (with Tablet meals). omeprazole (PRILOSEC) Take 40 mg by mouth 0 07/25/2019 40 mg Capsule, daily. Delayed Release(E.C.) documented as of this encounter Plan of Treatment Not on filedocumented as of this encounter Procedures Procedure Name Priority Date/Time Associated Diagnosis Comme nts REYMUNDO, LEGS, MULTIPLE Routine 12/14/2016 10:31 AM PAD (periphera l Results for this LEVELS EDT artery disease) procedure ar e in the results section. documented in this encounter Results REYMUNDO, legs, multiple levels (12/14/2016 10:31 AM EDT) Component Value Ref Test Analysis Performed At [facility] Range Method Time Signature VB Text Department: Vascular Surgery Lab [facility] Report Patient: [id number] (OLEG LORENZO) CPT: 41318 ICD10: I73.9 Referring Physician: NARESH FERNANDEZ ?? Indications: ??PVD, ? change Diabetes mellitus: Yes ICD10 Diagnosis Code: I73.9 Findings: Right ?Pressure (mm Hg) ?? REYMUNDO ??Waveform ? TBI ?? Brachial Artery ?132 ? Dorsalis Pedis (Ankle) Arter y ?53 ?0.40 ??Monophasic ? Posterior Tibial (Ankle) Art rose ??47 ?0.36 ??Monophasic ? Great Toe ?61 ?0.46 ?? Left ? Pressure (mm Hg) ?? REYMUNDO ??Waveform ?? TBI ?? Brachial Artery ?130 ? Dorsalis Pedis (Ankle) Arter y ?111 ? 0.84 ??Biphasic ? Posterior Tibial (Ankle) Art rose ??109 ? 0.83 ??Biphasic ? Great Toe ?88 ?0.67 ?? Interpretation: RIGHT: Moderate lower extremity arterial occlusive dis ease. Deterioration in ABIs with no significant change in TBI compared to previous exam. LEFT: Mild lower extremity arterial occlusive disease. Det erioration in TBI with no significant change in ABIs aspen red to previous exam. Note current TBI is similar to 02/10/2015 study. Previous ABIs with change from previous value: Date ?RIGHT DP ?? RIGHT PT ?? RT GR TOE ??LEFT DP ?LEFT PT ?LT GR TOE ??0.70 ? 0 .68 ? 0.47 ? 0.80 ? 0.82 ? 0.72 ??0.74(+.04) 0.73(+.05) 0.50( +.03) 0.91(+.11) 0.94(+.12) 0.88(+.16) Current ? 0.40(-.34) 0.3 6(-.37) 0.46(-.04) 0.84(-.07) 0.83(-.11) 0.67(-.21) Electronically Signed by: DEANA CANTOR on 2016-12-14 01:51 :33 PM VB Text End of Report [facility] Report Specimen (Source) Anatomical Collection Method Collection Time Re ceived Time Location / / Volume Laterality 12/14/2016 10:31 AM EDT Naresh Fernandez MD VASCULAR ORDERABLES Performing Organization Address City/State/ZIP Code Phon e Number [facility] documented in this encounter Visit Diagnoses Diagnosis PAD (peripheral artery disease) Peripheral vascular disease, unspecified documented in this encounter Care Teams Heading Matcher And Assembler Relationship Specialty Start Date End Date Danielle Rojas MD PCP - General Internal Medicine 07/21/16 06/28/[address] [place] [address] documented as of this encounter
--- OUTSIDE RECORDS SUMMARY | 2021-10-30 01:54 | XMS_ITS | Encounter Summary ---
:1960 Author Organization [facility] [place] [address] Care Team Providers Name Role Phone Joel Mccarthy MD Primary Care Provider Reason for Referral Diagnostic Test (Routine) - Closed Specialty Diagnoses / Procedures Referred By Contact Refer red To Contact Radiology Diagnoses PVD (peripheral vascular disease) with claudication [facility] Vascular Surg 3v [facility] Interventionl Rad Procedures VS Arteriogram Lower Extremity [place] [address] [place] [address] Fax: Referral ID Status Reason Start Date Expiration Date Visits V isits Requested Authorized [id number] Closed Specialty 07/18/2018 07/18/2019 1 1 Service Requested Encounter Details Date Type Department Care Team Description 07/18/2018 Orders Only Vascular Surgery at [facility] (peripheral [facility], [place] vascular disease) [place] [address] Social History Tobacco Use Types Packs/Day Years Used Date Former Smoker 1 40 Smokeless Tobacco: Never Used Alcohol Use Standard Drinks/Week Comments Yes 4 (1 standard drink = 0.6 oz pure alcoho l) Sex Assigned at Date Recorded Not on file documented as of this encounter Plan of Treatment Not on filedocumented as of this encounter Results VS Arteriogram Lower Extremity Vascular Surgery (07/19/2018 2:27 PM EDT) Anatomical Region Laterality Modality X-Ray Angiography Specimen (Source) Anatomical Location Collection Method / Collectio n Time Received Time / Laterality Volume Narrative 07/26/2018 11:45 AM EDT Attestation signed by Lamine Oneal MD at 07/21/2018 10:23 AM I was the attending physician supervisin g the resident/fellow in the above care and I was present with the resident/fell ow for the entire procedure. ?? I was present during the intraservice ti me as documented by the sedation RN. Lamine Oneal MD Vascular Surgery Interventional Procedur e Note Date of procedure: 07/19/18 Pre-Procedure Diagnosis: RLE critical li mb ischemia (rest pain, nonhealing wound) Post-Procedure Diagnosis: RLE critical l imb ischemia Procedure: - Left femoral ??arterial access with fl uoroscopic and ultrasound guidance - Aortogram - second order selective catheterization of right external iliac artery - RLE arteriogram - Mynx closure Surgeon(s): MD Lamine Alexander MD Intra-procedural Medications: Versed dose: 2.5 mg Fentanyl dose: 125 mcg Local anesthetic: 5 cc 1% lidocaine Heparin: Yes 8000 Units Protamine: Yes 30 mg Antibiotics: ancef 2g Fluoro Time: 14.4 min Contrast: 76 mL Sheath Size: ??6 Fr Indications for the procedure: Mr Berry is a 57M who is s/p R ileofem oral endarterectomy and external iliac artery stenting) who presents with persi stent RLE rest pain and heel ulcer. Plan for bilteral arteriogram with interventi on at indicated via L femoral access. Findings: - Aortogram demonstrated: infrarenal aor ta widely patent, RLE HUMA/EIA stents widely patent, RLE internal iliac artery patent, LLE with severe stenosis of distal HUMA/proximal EIA, L IIA patent bu t proximal aspect not well visualized - RLE arteriogram demonstrated: TELEPHONE TECHNICIAN wide ly patent, profunda widely patent, SFA with flush occlusion at origin, SFA quan nstitutes at mid-femur from profunda collaterals, popliteal artery widely pat ent, AT widely patent with runoff to distal calf, TP trunk patent, PT patent with runoff to distal calf, peroneal patent proximally, then not visualized ( distal calf and foot not well imaged due to issue with dye injection) ?? Procedure in detail: ?The patient was proper ly identified in the pre-operative holding area. After discussions of the risks and benefits, operative consent was obtained. The patient was brought to the angiography suite and placed on the angio table. The patient was prepped and draped in the usual sterile fashion. A time-out was performed by the attending surgeon confirming the patient, the intended procedure, the side of interven tion and equipment needed. Split doses of fentanyl and versed were administered for conscious sedation by the Interventional Radiology nurse ??during continuous monitoring of pulse, blood pressure and oxygen saturation. After in jection of local anesthetic, percutaneous access was obtained via the Left femoral ??artery under fluoroscopic and ultrasound guidance using a micro pu ncture technique. A cope wire was inserted and upsized to a 5 Egyptian sheat h over a stiff glidewire. A 5F Omni flush catheter was then advanced into e infrarenal aorta over the wire. Diagnostic aortography was performed wit h the above findings. The stiff glidewire was then re-inserted and used to select the right external iliac artery. Catheter exchange for the NTA ca theter was performed and a RLE arteriogram was obtained with the above findings. The NTA was removed and sheath exchange was performed for a 6Fr 45cm de stination sheath. The stiff glidewire was used with a combination of catheters including an NTA and rubicon cather in attempts to cross the SFA occlusion, but these were unsuccessful. Sheath exchange was performed for a short 6Fr s ema over a stiff glidewire. Mynx closure was performed. Manual pressure w as then held for 10 minutes until adequate hemostasis was obtained. The wo und was dressed with a sterile gauze and tegaderm. The patient was taken to the r ecovery room having suffered no apparent untoward event. Dr. Oneal was present for the entire proc edure. Plan: -flat for 2 hours -further workup / plan to be determined Thank you for letting us participate in the care of this patient. For questions regarding this report, please contact [facility] number below. ? Procedure Note Lamine Oneal MD - 07/26/2018 Attestation signed by Lamine Oneal MD at 07/21/2018 10:23 AM I was the attending physician supervisin g the resident/fellow in the above care and I was present with the resident/fell ow for the entire procedure. I was present during the intraservice ti me as documented by the sedation RN. Lamine Oneal MD Vascular Surgery Interventional Procedur e Note Date of procedure: 07/19/18 Pre-Procedure Diagnosis: RLE critical li mb ischemia (rest pain, nonhealing wound) Post-Procedure Diagnosis: RLE critical l imb ischemia Procedure: - Left femoral arterial access with fluo roscopic and ultrasound guidance - Aortogram - second order selective catheterization of right external iliac artery - RLE arteriogram - Mynx closure Surgeon(s): MD Lamine Alexander MD Intra-procedural Medications: Versed dose: 2.5 mg Fentanyl dose: 125 mcg Local anesthetic: 5 cc 1% lidocaine Heparin: Yes 8000 Units Protamine: Yes 30 mg Antibiotics: ancef 2g Fluoro Time: 14.4 min Contrast: 76 mL Sheath Size: 6 Fr Indications for the procedure: Mr Berry is a 57M who is s/p R ileofem oral endarterectomy and external iliac artery stenting) who presents with persi stent RLE rest pain and heel ulcer. Plan for bilteral arteriogram with interventi on at indicated via L femoral access. Findings: - Aortogram demonstrated: infrarenal aor ta widely patent, RLE HUMA/EIA stents widely patent, RLE internal iliac artery patent, LLE with severe stenosis of distal HUMA/proximal EIA, L IIA patent bu t proximal aspect not well visualized - RLE arteriogram demonstrated: TELEPHONE TECHNICIAN wide ly patent, profunda widely patent, SFA with flush occlusion at origin, SFA quan nstitutes at mid-femur from profunda collaterals, popliteal artery widely pat ent, AT widely patent with runoff to distal calf, TP trunk patent, PT patent with runoff to distal calf, peroneal patent proximally, then not visualized ( distal calf and foot not well imaged due to issue with dye injection) Procedure in detail: The patient was properly identified in the pre-operative holding area. After discussions of the risks and benefits, operative consent was obtained. The patient was brought to the angiography suite and placed on the angio table. The patient was prepped and draped in the usual sterile fashion. A time-out was performed by the attending surgeon confirming the patient, the intended procedure, the side of interven tion and equipment needed. Split doses of fentanyl and versed were administered for conscious sedation by the Interventional Radiology nurse during co ntinuous monitoring of pulse, blood pressure and oxygen saturation. After in jection of local anesthetic, percutaneous access was obtained via the Left femoral artery under fluoroscopic and ultrasound guidance using a micro pu ncture technique. A cope wire was inserted and upsized to a 5 Egyptian sheat h over a stiff glidewire. A 5F Omni flush catheter was then advanced into e infrarenal aorta over the wire. Diagnostic aortography was performed wit h the above findings. The stiff glidewire was then re-inserted and used to select the right external iliac artery. Catheter exchange for the NTA ca theter was performed and a RLE arteriogram was obtained with the above findings. The NTA was removed and sheath exchange was performed for a 6Fr 45cm de stination sheath. The stiff glidewire was used with a combination of catheters including an NTA and rubicon cather in attempts to cross the SFA occlusion, but these were unsuccessful. Sheath exchange was performed for a short 6Fr s ema over a stiff glidewire. Mynx closure was performed. Manual pressure w as then held for 10 minutes until adequate hemostasis was obtained. The wo und was dressed with a sterile gauze and tegaderm. The patient was taken to the r ecovery room having suffered no apparent untoward event. Dr. Oneal was present for the entire proc edure. Plan: -flat for 2 hours -further workup / plan to be determined Thank you for letting us participate in the care of this patient. For questions regarding this report, please contact [facility] number below. Lamine Oneal MD IMG IR ORDERABLES documented in this encounter Visit Diagnoses Diagnosis PVD (peripheral vascular disease) with c laudication Peripheral vascular disease, unspecified documented in this encounter Care Teams Pneumatic Deicer Inspector Relationship Specialty Start Date End Date Joel Mccarthy MD PCP - General General Internal Medicine 06/29/18 [address] [facility] [address] [place] [address] documented as of this encounter
--- OUTSIDE RECORDS SUMMARY | 2021-10-30 01:54 | XMS_ITS | Encounter Summary ---
:1960 Author Organization [facility] [place] [address] Care Team Providers Name Role Phone Danielle Rojas MD Primary Care Provider Encounter Details Date Type Department Care Team Description 06/28/2018 Ancillary [place] [address] Social History Tobacco Use Types Packs/Day [...] Diagnosis Comme nts IR OR VASC Routine 06/28/2018 1:19 PM Results f or this ANGIOGRAM IMAGE EST procedure ar e in STORAGE ONLY the results section. documented in this encounter Results IR OR VASC Aniogram Image Storage Only (06/28/2018 1:19 PM EST) Specimen (Source) Anatomical Location Collection Method / Collectio n Time Received Time / Laterality Volume Narrative SHWETA - 06/28/2018 1:19 PM EST This exam is for storage only and is aut o-finalizing. Lamine Oneal MD IMG FILM LIBRARY ORDERABLES Performing Organization Address City/State/ZIP Code Phon e Number [place], [place] documented in this encounter Visit Diagnoses Not on filedocumented in this encounter Care Teams Advertising Copy Writer Relationship Specialty Start Date End Date Danielle Rojas MD PCP - General Internal Medicine 07/21/16 06/28/[address] [place] [address] documented as of this encounter
--- OUTSIDE RECORDS SUMMARY | 2021-10-30 01:54 | XMS_ITS | Encounter Summary ---
:1960 Author Organization [facility] [place] [address] Care Team Providers Name Role Phone Joel Mccarthy MD Primary Care Provider Encounter Details Date Type Department Care Team Description 07/19/2018 Telephone Thoracic Surgery at [facility] [place] [address] Social History Tobacco Use Types Packs/Day [...] on filedocumented in this encounter Care Teams Administrative Coordinator Relationship Specialty Start Date End Date Joel Mccarthy MD PCP - General General Internal Medicine 06/29/18 [address] [place], [place] [id number] documented as of this encounter
--- OUTSIDE RECORDS SUMMARY | 2021-10-30 01:54 | XMS_ITS | Encounter Summary ---
:1960 Author Organization [facility] [place] [address] Care Team Providers Name Role Phone Danielle Rojas MD Primary Care Provider Reason for Visit Auth/Cert Specialty Diagnoses / Procedures Referred By Contact Refer red To Contact Diagnoses Critical lower limb ischemia R CLI AND CELLULITIR LAEG Procedures EMERGENCY IPI Referral ID Status Reason Start Date Expiration Date Visits Requ ested Visits Authorized [id number] 1 1 Encounter Details Date Type Department Care Team Description 06/27/2018 Laboratory Appointment Lab 3L [facility] [place] [place] [address] Social History Tobacco Use Types Packs/Day Years [...] Name Priority Date/Time Associated Diagnosis Comme nts CREATININE Routine 06/27/2018 9:48 AM Right leg rick n Results for this EST Claudication of lower proced ure are in the extremity results section . documented in this encounter Results Creatinine (06/27/2018 9:48 AM EST) P athologist Signature Creatinine 1.00 0.80 - JW OREILLY 1.50 mg/dL [facility] Estimated GFR 83 >=60 JW OREILLY mL/min/1.7 [place] [facility] Comment: The eGFR was calculated using the CKD-EP I equation. As with all creatinine based estimates of kidney function, eGFR values calculated with the CKD-EPI equation are not accurate in patients wi th acute kidney failure, extremes of body mass or the acutely ill. [email or web address] eGFR 96 >=60 mL/min/1.73 m?? [facility] Comment: The eGFR was calculated using the CKD-EP I equation. As with all creatinine based estimates of kidney function, eGFR values calculated with the CKD-EPI equation are not accurate in patients wi th acute kidney failure, extremes of body mass or the acutely ill. [email or web address] Specimen Anatomical Collection Method Collection Time Receive d Time (Source) Location / / Volume Laterality Blood specimen 06/27/2018 9:48 AM 019 9:58 (specimen) EST AM EST Resulting Agency Comment Spec In Lab Elena Black APRN CHEMISTRY ORDERABLES Performing Organization Address City/State/[place] [address] documented in this encounter Visit Diagnoses Diagnosis Right leg pain Pain in limb Claudication of lower extremity Peripheral vascular disease, unspecified documented in this encounter Care Teams Template Storage Clerk Relationship Specialty Start Date End Date Danielle Rojas MD PCP - General Internal Medicine 07/21/16 06/28/[address] [place] [address] documented as of this encounter
--- OUTSIDE RECORDS SUMMARY | 2021-10-30 01:54 | XMS_ITS | Encounter Summary ---
:1960 [place] [address] Care Team Providers Name Role Phone Joel Mccarthy MD Primary Care Provider Reason for Visit Auth/Cert Specialty Diagnoses / Procedures Referred By Contact Refer red To Contact Diagnoses Critical lower limb ischemia R CLI AND CELLULITIR LAEG Procedures EMERGENCY IPI Referral ID Status Reason Start Date Expiration Date Visits Requ ested Visits Authorized [id number] 1 1 Encounter Details Date Type Department Care Team Description 06/27/2018 - Hospital Encounter 4 [place] Jhonny Ruiz Critica l lower limb ischemia; [facility] [address] [place] [id number] [phone] Social History Tobacco Use Types Packs/Day Years Used Date Former Smoker 1 40 Smokeless Tobacco: Never Used Alcohol Use Standard Drinks/Week Comments Yes 4 (1 standard drink = 0.6 oz pure alcoho l) Sex Assigned at Date Recorded Not on file documented as of this encounter Last Filed Vital Signs Vital Sign Reading Time Taken Comments Blood Pressure 130/75 06/30/2018 9:31 AM EST Pulse 85 06/30/2018 9:31 AM EST Temperature 37 ??C (98.6 ??F) 06/30/2018 7:45 AM EST Respiratory Rate 17 06/30/2018 7:45 AM EST Oxygen Saturation 93% 06/30/2018 7:45 AM EST Inhaled Oxygen Concentration - - Weight - - Height - - Body Mass Index - - documented in this encounter Discharge Summaries Yumiko Allen PA - 06/30/2018 9:44 AM EST Inpatient - Discharge Summary Patient Name: Oleg Berry Patient Age: 57 y.o. Birthdate: 1960 Admit [...] (coronary artery bypass graft) ??? Atherosclerosis of paiute-shoshone artery of right lower extremity with intermittent claudication ?? Noted on aortogram done in [employer]orer [employer] Jun 2016. 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 ??? Hypertension ??? Financial difficulties--- barrier to medication use ??? Coronary artery disease 06/2016: NSTEMI. Cath showing 3vD. Surgery recommended. ??? Non ST elevation MS due to severe 3vD-- awaiting for CABG Tuesday ??? Diabetes mellitus, type 2 ??? Hyperlipidemia ??? Osteoarthritis Operations/Major Procedures: 06/28/2018: Right iliofemoral endarterectomy with patch angioplasty, Right external iliac artery stent placement and balloon angioplasty (Epic [id number] proximal, Epic 9x80 distal, [place] angioplasty balloon [id number]) History of Presentation: 57 y.o. male with history of DM, CAD s/p CABG 2016, MELONIE not on nightly CPAP, diverticulitis s/p partial bowel resection who presents for pre-operative examination. Please see Kylah Redd's note for full details of the patient's specific problem. In brief, Mr. Berry is a 57M with the below pmh [...] gauge x 5/16 Syrg 1 Box by [facility].(Non-Drug; Combo Route) route 2 times daily. 1 [...] For any problems or questions please call [phone] KARI Griggs, guide cruise Nurse Clinician For issues on weeknights after 5pm and weekends please call [phone] and ask for the Vascular Fellow artist color separation. General Instructions None Future Appointments and Orders Future Appointments and Orders Future Appointments Provider Department Dept Phone 07/18/2018 10:00 AM Jhonny Oneal MD Vascular Surgery at [facility] Arrive at: [facility] 3V [phone] Discharge References/Attachments: Discharge References/Attachments None Electronically Signed [...] For any problems or questions please call [phone] KARI Griggs, guide cruise Nurse Clinician For issues on weeknights after 5pm and weekends please call [phone] and ask for the Vascular Fellow artist color separation. documented in this encounter Medications at Time [...] Take 1 tablet by 40 tablet 0 03/11/201807/20/2018 mg Tablet mouth every 8 hours as [...] PM EST Nutrition Services - Education Note Oleg Berry : 1960 AGE: 57 y.o. Patient Active Problem List Diagnosis Date Noted ??? Hospital-Critical lower limb ischemia 06/27/2018 ??? Leg pain, bilateral 12/15/2016 ??? Aortoiliac occlusive disease 12/15/2016 ??? S/P CABG (coronary artery bypass graft) 07/12/2016 ??? Atherosclerosis of pai[place]-shosh[place] artery of right lower extremity with intermittent claudication 07/09/2016 ??? Hypertension 07/09/2016 Chronic ??? Financial difficulties--- barrier to medication use 07/09/2016 Chronic ??? Coronary artery disease 07/09/2016 Chronic ??? Non ST elevation MS due to severe 3vD-- awaiting for CABG [...] He consumed 100% of his lunch on 06/29 consisting on mac & cheese, tomato soup, [...] in the interim. ANAT Ba Pager # [phone] RodriguezMeliton MD - 06/29/2018 10:56 AM EST Vascular Surgery Progress Note Patient Name: Oleg Berry Patient Age: 57 y.o. Birthdate: 1960 Admit date: 06/27/2018 Attending Physician: Jhonny Oneal MD PATIENT ID: Oleg Berry is a 57 y.o. male with history [...] the right external iliac artery and severe PRINTING SCREEN ASSEMBLER stenosis. Now s/p the below procedure. Operations [...] 1.0 Recent Labs 06/28/18 1141 PHART 7.42 OUC6GXU 35 PO2ART 136* TRV1TFC 22.5 RADIOLOGY: None new ASSESSMENT/PLAN: Oleg Berry is a 57 y.o. male with history of DM, CAD s/p CABG 2017, MELONIE not on nightly CPAP, diverticulitis s/p partial bowel resection who has been followed in the vascular surgery clinic for aortoiliac occlusive disease. He presented to clinic with 3-4 weeks of progressive rest pain and heel wound x 1wk. CTA demonstrates occlusion of the right external iliac artery and severe PRINTING SCREEN ASSEMBLER stenosis. Now s/p R iliofemoral endarterectomy with patch graft and stenting for RLE CLI. -discontinue tobin -OOB today -stop abx -PT/OT -ABIs tomorrow -anticipate dc home tomorrow pending PT evaluation Meliton Rodriguez MD 06/29/18 Pager: [phone] Darlin Rice RN - 06/29/2018 3:09 AM [...] EST Vascular Surgery Progress Note Patient Name: Oleg Berry Patient Age: 57 y.o. Birthdate: 1960 Admit date: 06/27/2018 Attending Physician: Jhonny Oneal MD PATIENT ID: Oleg Berry is a 57 y.o. male with history [...] the right external iliac artery and severe PRINTING SCREEN ASSEMBLER stenosis. Now s/p the below procedure. Operations [...] 1.0 Recent Labs 06/28/18 1141 PHART 7.42 AMD4QWG 35 PO2ART 136* WNI3IGZ 22.5 RADIOLOGY: CTA Aorta LE Runoff 06/27/18 [...] 06/27/18 IMPRESSION No acute cardiopulmonary disease. ASSESSMENT/PLAN: Oleg Berry is a 57 y.o. male with history of DM, CAD s/p CABG 2016, MELONIE not on nightly CPAP, diverticulitis s/p partial bowel resection who has been followed in the vascular surgery clinic for aortoiliac occlusive disease. He presented to clinic with 3-4 weeks of progressive rest pain and heel wound x 1wk. CTA demonstrates occlusion of the right external iliac artery and severe PRINTING SCREEN ASSEMBLER stenosis. Now s/p R iliofemoral endarterectomy with patch graft and stenting for RLE CLI. -Doing well post-operatively -Pain well-controlled -Hemodynamically stable -NVI -present AT doppler signal -Bedrest o/n -ADAT Meliton Rodriguez MD 06/28/18 Pager: [phone] Yoav Shultz RN - 06/28/2018 4:04 PM EST Pt back in room, settled, after report received from BENEFIT AUTHORIZER. R groin dressing CDI. Soft, tender. Pulses on R foot as follows: DP +2, doppler PT absent, doppler. Tobin in place. Pt on bedrest until discontinued at this time. Denies nausea, reports aches to RLE. Resuming care of pt, following the plan of care. Gisela Navarro RN - 06/28/2018 2:33 PM EST Pt [...] Report called to HEAVEN Cason. [id number] vascular international project engineer at bedside for postop check. Yoav Shultz RN - 06/28/2018 10:03 AM EST Pt off the floor to OR for planned procedure. Will resume care on return to unit. Meliton Rodriguez MD - 06/28/2018 7:49 AM EST Vascular Surgery Progress Note Patient Name: Oleg Berry Patient Age: 57 y.o. Birthdate: 1960 Admit date: 06/27/2018 Attending Physician: Jhonny Oneal MD PATIENT ID: Oleg Berry is a 57 y.o. male with history [...] the right external iliac artery and severe PRINTING SCREEN ASSEMBLER stenosis. Plan for right iliac stent and PRINTING SCREEN ASSEMBLER endarterectomy. Operations This Hospitalization: none Subjective: -NAEON -Continues with rest pain. Well controlled on current oral regimen. -Offers no other complaints -Denies nausea, vomiting, chest pain or shortness of breath -Has been NPO since [place] in anticipation of OR today Objective: VITALS: [...] INR 1.0 No results for input(s): PHART, BQE8DTW, PO2ART, KZJ6QZR in the last 168 hours. RADIOLOGY: CTA [...] 06/27/18 IMPRESSION No acute cardiopulmonary disease. ASSESSMENT/PLAN: Oleg Berry is a 57 y.o. male with history of DM, CAD s/p CABG 2017, MELONIE not on nightly CPAP, diverticulitis s/p partial bowel resection who has been followed in the vascular surgery clinic for aortoiliac occlusive disease. He presented to clinic with 3-4 weeks of progressive rest pain and heel wound x 1wk. CTA demonstrates occlusion of the right external iliac artery and severe PRINTING SCREEN ASSEMBLER stenosis. Plan for right iliac stent and PRINTING SCREEN ASSEMBLER endarterectomy today. -No change in symptoms -Has been NPO since [place] -Pre-op labs completed -Operative site marked, consent obtained -Plan for surgery today as scheduled Meliton Rodriguez MD 06/28/18 Pager: [phone] Jhonny Oneal MD - 06/27/2018 6:53 PM EST Vascular Surgery Patient seen on 06/27/18 in clinic with Kylah Redd. Briefly, this is a 57yo diabetic smoker with known history of PVD, now with new painful fissures in his right heel. ROS significant for CAD s/p CABG in 2017. No recent CP or SOB. Denies history [...] showed occlusion of right iliac artery and PRINTING SCREEN ASSEMBLER disease. Will plan for admission and OR [...] right foot pain History of Present Illness: Oleg Berry is a 57 y.o. male with history of DM, CAD s/p CABG 2016, MELONIE not on nightly CPAP, diverticulitis s/p partial bowel resection who presents for pre-operative examination. Please seeKylah Redd's note for full details of the patient's specific problem. In brief, Mr. Berry is a57M with the below pmh who [...] ??? Osteoarthritis M19.90 ??? Non ST elevation MS due to severe 3vD-- awaiting for CABG Tuesday I21.4 ??? Atherosclerosis of pai[place]-shosh[place] artery of right lower extremity with intermittent [...] 39.88) performed by Valentino Arredondo MD at [facility] MAIN OR ??? PRO CABG, ARTERY-VEIN, TWO N/A 07/12/2016 @CABG, TWO VENOUS GRAFTS & ARTERIAL GRAFT (WRVU 7.93) performed by Valentino Arredondo MD at [facility] MAIN OR ??? PRO ENDOSCOPY W/VIDEO-ASST VEIN HARVEST, CABG Right 07/12/2016 ENDOSCOPIC HARVEST VEIN(S) FOR CABG (WRVU 0.31) performed by Valentino Arredondo MD at [facility] MAIN OR Home Medications: Medications Prior to [...] gauge x 5/16 Syringe 1 Box by [facility].(Non-Drug; Combo Route) route 2 times daily. 100 [...] Dr. Oneal for right iliac stent and PRINTING SCREEN ASSEMBLER endarterectomy. Meliton Rodriguez MD documented in this [...] -- OUTCOME EVALUATION NOTE: OUTCOME SUMMARY: Patient Oleg Hood) had a good day. Patient is [...] artery stent placement and balloon angioplasty (Epic [id number] proximal, Epic 9x80 distal, [place] angioplasty balloon [id number]). . Present on Admission: ??? Critical lower limb ischemia Patient has not been admitted to a hospital within the last 30 days. Patient receiving hospital care under Inpatient status. Admission order reviewed. Primary Insurance on file: [employer] [facility] Secondary Insurance on file: N/A Primary care provider on file: Danielle Rojas MD [phone] Advance Directives: Does not have. Discussed and provided advance directive booklet and forms, patient will discuss with family at a later time. Full Code Patient???s Functional Status: Independent. 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 He is currently on Disability, plans to retire soon. They have a dog and cat. Living Situation: Pt lives in a mobile home with his girl friend Madyson Sol who is retired. [address] [facility] [address] Supports: Pt is well supported by Madyson, son Oleg and step son. Assessment: Patient with no apparent RNCM/SW needs at this time. No housing, transportation, insurance, resources concerns identified at this time. Supports in place to achieve a safe post-hospital transition. No identified barriers to accessing necessary care and/or follow-up after discharge. Plan: Patient to d/c to home via private car w when medically ready. synthetic resin operator/[employer] will continue to follow patient???s progress and remain available if situation changes for coordination of care, psychosocial support and/or discharge planning. Gisela mAezcua RN [address] Control Panel Operator Pager: [phone] Op Note - Mary Jane Cash MD - 06/28/2018 2:36 PM EST [facility] Operative Note Patient Name: Oleg Berry : [id number] MR#: [id number] Case Date: 06/28/2018 Surgeon: Surgeon(s) and Role: * Jhonny Oneal MD - Primary * Mary Jane Cash MD - Fellow Preoperative diagnosis: CLI Postoperative diagnosis: CLI Procedure: 1. Right iliofemoral endarterectomy with patch angioplasty 2. Right external iliac artery stent placement and balloon angioplasty (Epic [id number] proximal, Epic 9x80 distal, [place] angioplasty balloon [id number]) Procedure(s) (LRB): @ENDARTERECTOMY, ILIOFEMORAL W OR W/O [...] details pertinent to this patient.) HPI/Surgical Indications: Oleg Berry is a 57 y.o. male with history of DM, CAD s/p CABG 2017, MELONIE not on nightly CPAP, diverticulitis s/p partial bowel resection who presents for pre-operative examination. Please see Kylah Redd's note for full details of the patient's specific problem. In brief, Mr. Berry is a 57M with the [facility] who follows with the vascular surgery clinic for aortoiliac occlusive disease and now presents to clinic with 3-4 weeks of progressive rest pain and heel wound x 1wk. He notes claudication and severe right foot pain that now does not johanny with rest. CTA confirmed Right External iliac occlusion and right PRINTING SCREEN ASSEMBLER severe stenosis. Today we will perform right PRINTING SCREEN ASSEMBLER endarterectomy patch angioplasty and right EIA stent [...] to access the common femoral artery a Hubbard wire was advanced through theneedle followed by a micropuncture sheath and stiff glide wire. The micropuncture sheath was exchanged for a [id number] sheath. Diagnostic angiogram demonstrated long-segment EIA occlusion. Two external iliac stents were placed (Epic [id number] proximal, Epic 9x80 distal). The stents were post dilated with a [place] angioplasty balloon [id number]. Completion angiogram demonstrated excellent stent placement and brisk inflow. There was a strong palpable femoral pulse following stent and balloon angioplasty. Ofnote the SFA had a short segment proximal stenosis and sluggish flow through the SFA. We made the decision to attempt balloon angioplasty of the SFA. First the PRINTING SCREEN ASSEMBLER sheath access site was closed with 6-0 interrupted prolene, then micropuncture access was obtained in the proximal PRINTING SCREEN ASSEMBLER, however we were unable to pass a Hubbard wire down the SFA. At this point [...] [place]. OR for R iliac stent and PRINTING SCREEN ASSEMBLER enterectomy in AM. FSBG QID. INDIVIDUALIZED FALL [...] TYPE AND SCREEN Routine 06/27/2018 5:48 PM ([facility]/CGP/BERNA) EST HEMOGRAM Routine 06/27/2018 5:45 PM Results [...] POC Glucose 246 (H) 65 - 199 JW KEREN mg/dL [facility] Comment: Supplemental ranges: <140 mg/dL before meals <180 mg/dL all other times of the day Specimen Anatomical Collection Method Collection Time Receive d Time (Source) Location / / Volume Laterality Blood specimen 06/30/2018 9:53 AM 019 9:53 (specimen) EST AM EST Jhonny Oneal MD POINT OF CARE TEST ORDERABLE S Performing Organization Address City/State/ZIP Code Phon e Number [address] POCT Glucose (06/30/2018 7:47 AM EST) P athologist Signature POC Glucose 115 65 - 199 [facility] Comment: Supplemental ranges: <140 mg/dL before meals <180 mg/dL all other times of the day Specimen Anatomical Collection Method Collection Time Receive d Time (Source) Location / / Volume Laterality Blood specimen 06/30/2018 7:47 AM 019 7:47 (specimen) EST AM EST Jhonny Oneal MD POINT OF CARE TEST ORDERABLE S Performing Organization Address City/State/ZIP [place] [address] REYMUNDO, legs, multiple levels (06/30/2018 7:35 AM EST) Component Value Ref Test Analysis Performed At Patholo gist Range Method Time Signature VB Text Department: Vascular Surgery Lab VASCUBASE Report Patient: [id number] (MAURAROBB LONGATBITHAJAI) CPT: 15618 ICD10: I99.8;I70.213 Referring Physician: JHONNY ONEAL MD ?? Phone: Indications: S/p right femoral endarterectomy and stents, ? change in REYMUNDO Diabetes mellitus: Yes ICD10 Diagnosis Code: I99.8, I70.213 Findings: Right ?Pressure (mm Hg) ?? REYMUNDO ??Waveform ? TBI ?? Brachial Artery ?127 ? Dorsalis Pedis (Ankle) Arter y ?34 ?0.25 ??Monophasic ? Posterior Tibial (Ankle) Art rose ??45 ?0.33 ??Monophasic ? Great Toe ?15 ?0.11 ?? Left ? Pressure (mm Hg) ?? REYMUNDO ??Waveform ?? TBI ?? Brachial Artery ?135 ? Dorsalis Pedis (Ankle) Arter y ?87 ?0.64 ??Biphasic ? Posterior Tibial (Ankle) Art rose ??92 ?0.68 ??Biphasic ? Great Toe ?74 [...] POC Glucose 114 65 - 199 JW OREILLY mg/dL [facility] Comment: Supplemental ranges: <140 mg/dL before meals <180 mg/dL all other times of the day Specimen Anatomical Collection Method Collection Time Receive d Time (Source) Location / / Volume Laterality Blood specimen 06/30/2018 5:50 AM 5:50 (specimen) EST AM EST Jhonny Oneal MD POINT OF CARE TEST ORDERABLE S Performing Organization Address City/State/[place] [address] (ABNORMAL) Hemogram (06/30/2018 4:13 AM EST) Analysis Performed At Patho logist Time Signature WBC 11.2 (H) 4.0 - 9.5 JW KERNE x10(3)/[facility] LABORATORY RBC 3.92 (L) 4.58 - JW KEREN 5.54 [facility] x10(6)/[facility] LABORATORY Hemoglobin 11.9 (L) 13.7 - JW KEREN 16.5 gm/dL [facility] Hematocrit 36.1 (L) 40.5 - JW KEREN 48.5 % [facility] MCV 92.1 82.9 - [facility] KEREN 93.1 [facility] LABORATORY MCH 30.4 27.5 - [employer] 32.1 pg [facility] MCHC 33.0 32.0 - JW KEREN 35.7 gm/dL [facility] Platelets 174 145 - 357 [facility] LABORATORY RDWSD 48.0 (H) 36.0 - JW KEREN 45.0 [facility] LABORATORY RDWCV 14.2 (H) 11.4 - [employer] 13.8 % [facility] MPV 11.4 7.6 - 12.9 [facility] KREEN [facility] LABORATORY nRBC % Auto 0.0 % [facility] nRBC Abs Auto 0.000 0.000 - [employer] 0.000 [facility] x10(3)/[facility] LABORATORY Specimen Anatomical Collection Method Collection Time Receive d Time (Source) Location / / Volume Laterality Blood specimen 06/30/2018 4:13 AM 03/08/2 019 4:32 (specimen) EST AM EST Resulting Agency Comment Spec In Lab Jhonny Oneal MD HEMATOLOGY ORDERABLES Performing Organization Address City/State/[place] [address] (ABNORMAL) BMP w/fasting Glucose (06/30/2018 4:13 AM EST) P athologist Signature Glucose 135 (H) 65 - 99 [facility] Fasting mg/dL [facility] Comment: ?Fasting* Glucose Interpretive C riteria [...] of Diabetes Mellitus, Position Statement from the [place] [employer]. ??Diabete s Care, Volume 33, Supplement 1, Apr 2009 BUN 17 10 - 20 mg/dL [facility] Creatinine 0.82 0.80 - 1.50 mg/dL [facility] Sodium 140 135 - 145 mmol/L [facility] Potassium 4.1 3.5 - 5.0 mmol/L [facility] Comment: Please note: ??Patients with WBC >100,00 0 may have falsely elevated Potassium levels. ??For accurate Potassium quantif ication in these patients send serum separator tube (gold top) for subsequent determinations. ??Contact the Clinical Chemistry Laboratory if there are any qu estions. Chloride 103 98 - 107 mmol/L [facility] CO2 22 22 - 31 mmol/L [facility] Anion Gap 15 5 - 15 mmol/L [facility] Calcium 8.6 8.5 - 10.5 mg/dL [facility] Estimated GFR 98 >=60 mL/min/1.73 m?? [facility] Comment: The eGFR was calculated using the CKD-EP I equation. As with all creatinine based estimates of kidney function, eGFR values calculated with the CKD-EPI equation are not accurate in patients wi th acute kidney failure, extremes of body mass or the acutely ill. http://[employer]/[facility] eGFR 114 >=60 mL/min/1.73 m?? [facility] Comment: The eGFR was calculated using the CKD-EP I equation. As with all creatinine based estimates of kidney function, eGFR values calculated with the CKD-EPI equation are not accurate in patients wi th acute kidney failure, extremes of body mass or the acutely ill. http://[employer]/[facility] Specimen Anatomical Collection Method Collection Time Receive d Time (Source) Location / / Volume Laterality Blood specimen 06/30/2018 4:13 AM 019 4:32 (specimen) EST AM EST Resulting Agency Comment Spec In Lab Jhonny Oneal MD CHEMISTRY ORDERABLES Performing Organization Address City/[facility]/ZIP Code Phon e Number [address] (ABNORMAL) POCT Glucose (06/30/2018 12:55 AM EST) athologist Signature POC Glucose 223 (H) 65 - 199 [facility] Comment: Supplemental ranges: <140 mg/dL before meals <180 mg/dL all other times of the day Specimen Anatomical Collection Method Collection Time Receive d Time (Source) Location / / Volume Laterality Blood specimen 06/30/2018 12:55 9 (specimen) AM EST 12:55 AM EST Jhonny Oneal MD POINT OF CARE TEST ORDERABLE S Performing Organization Address City/[facility]/ZIP Code Phon e Number [address] (ABNORMAL) POCT Glucose (06/29/2018 10:35 PM EST) athologist Signature POC Glucose 247 (H) 65 - 199 [facility] mg/dL [facility] Comment: Supplemental ranges: <140 mg/dL before meals <180 mg/dL all other times of the day Specimen Anatomical Collection Method Collection Time Receive d Time (Source) Location / / Volume Laterality Blood specimen 06/29/2018 10:35 9 (specimen) PM EST 10:35 PM EST Jhonny Oneal MD POINT OF CARE TEST ORDERABLE S Performing Organization Address City/State/ZIP [place] [address] (ABNORMAL) POCT Glucose (06/29/2018 8:20 PM EST) P athologist Signature POC Glucose 274 (H) 65 - 199 JW KEREN mg/dL [facility] Comment: Supplemental ranges: <140 mg/dL before meals <180 mg/dL all other times of the day Specimen Anatomical Collection Method Collection Time Receive d Time (Source) Location / / Volume Laterality Blood specimen 06/29/2018 8:20 PM 019 8:20 (specimen) EST PM EST Jhonny Oneal MD POINT OF CARE TEST ORDERABLE S Performing Organization Address City/State/ZIP Code [place] [address] POCT Glucose (06/29/2018 11:25 AM EST) P athologist Signature POC Glucose 171 65 - 199 JW KEREN mg/dL [facility] Comment: Supplemental ranges: <140 mg/dL before meals <180 mg/dL all other times of the day Specimen Anatomical Collection Method Collection Time Receive d Time (Source) Location / / Volume Laterality Blood specimen 06/29/2018 11:25 9 (specimen) AM EST 11:25 AM EST Jhonny Oneal MD POINT OF CARE TEST ORDERABLE S Performing Organization Address City/State/ZIP [place] [address] POCT Glucose (06/29/2018 7:44 AM EST) P athologist Signature POC Glucose 120 65 - 199 JW KEREN mg/dL [facility] Comment: Supplemental ranges: <140 mg/dL before meals <180 mg/dL all other times of the day Specimen Anatomical Collection Method Collection Time Receive d Time (Source) Location / / Volume Laterality Blood specimen 06/29/2018 7:44 AM 019 7:44 (specimen) EST AM EST Jhonny Oneal MD POINT OF CARE TEST ORDERABLE S Performing Organization Address City/State/[place] [address] (ABNORMAL) Hemogram (06/29/2018 7:06 AM EST) Analysis Performed At Patho logist Time Signature WBC 12.0 (H) 4.0 - 9.5 [facility] x[facility] LAB[facility]ATORY RBC 4.18 (L) 4.58 - [facility] 5.54 [facility] x10(6)/[facility] LABORATORY Hemoglobin 12.5 (L) 13.7 - [facility] 16.5 gm/dL [facility] Hematocrit 38.8 (L) 40.5 - [facility] 48.5 % [facility] MCV 92.8 82.9 - [facility] 93.1 [facility] LABORATORY MCH 29.9 27.5 - [facility] 32.1 pg [facility] MCHC 32.2 32.0 - [facility] 35.7 gm/dL [facility] Platelets 188 145 - 357 [facility] x10(3)/[facility] LABORATORY RDWSD 47.6 (H) 36.0 - [facility] KEREN 45.0 [facility] LABORATORY RDWCV 14.1 (H) 11.4 - [facility] KEREN 13.8 % [facility] MPV 11.1 7.6 - 12.9 [facility] nRBC % Auto 0.0 % [facility] nRBC Abs Auto 0.000 0.000 - JW KEREN 0.000 [facility] x10(3)/[facility] LABORATORY Specimen Anatomical Collection Method Collection Time Receive d Time (Source) Location / / Volume Laterality Blood specimen 06/29/2018 7:06 AM 019 7:19 (specimen) EST AM EST Resulting Agency Comment Spec In Lab Jhonny Oneal MD HEMATOLOGY ORDERABLES Performing Organization Address City/State/[place] [address] (ABNORMAL) BMP w/fasting Glucose (06/29/2018 7:06 AM EST) P athologist Signature Glucose 108 (H) 65 - 99 [facility] Fasting mg/dL [facility] Comment: ?Fasting* Glucose Interpretive C riteria [...] of Diabetes Mellitus, Position Statement from the [employer]. ??Diabete s Care, Volume 33, Supplement 1, Apr 2009 BUN 13 10 - 20 mg/dL [facility] Creatinine 0.96 0.80 - 1.50 mg/dL [facility] Sodium 139 135 - 145 mmol/L [facility] Potassium 4.0 3.5 - 5.0 mmol/L [facility] Comment: Please note: ??Patients with WBC >100,00 0 may have falsely elevated Potassium levels. ??For accurate Potassium quantif ication in these patients send serum separator tube (gold top) for subsequent determinations. ??Contact the Clinical Chemistry Laboratory if there are any qu estions. Chloride 100 98 - 107 mmol/L [facility] CO2 26 22 - 31 mmol/L [facility] Anion Gap 13 5 - 15 mmol/L [facility] Calcium 8.8 8.5 - 10.5 mg/dL [facility] Estimated GFR 87 >=60 mL/min/1.73 m?? [facility] Comment: The eGFR was calculated using the CKD-EP I equation. As with all creatinine based estimates of kidney function, eGFR values calculated with the CKD-EPI equation are not accurate in patients wi th acute kidney failure, extremes of body mass or the acutely ill. [email or web address]/[facility]UKONnkf eGFR 101 >=60 mL/min/1.73 m?? [facility] Comment: The eGFR was calculated using the CKD-EP I equation. As with all creatinine based estimates of kidney function, eGFR values calculated with the CKD-EPI equation are not accurate in patients wi th acute kidney failure, extremes of body mass or the acutely ill. http://[employer]/[facility] YUKONnkf Specimen Anatomical Collection Method Collection Time Receive d Time (Source) Location / / Volume Laterality Blood specimen 06/29/2018 7:06 AM 019 7:19 (specimen) EST AM EST Resulting Agency Comment Spec In Lab Jhonny Oneal MD CHEMISTRY ORDERABLES Performing Organization Address City/[facility] Phon e Number [address] POCT Glucose (06/28/2018 8:52 PM EST) athologist Signature POC Glucose 136 65 - 199 [facility] mg/dL [facility] Comment: Supplemental ranges: <140 mg/dL before meals <180 mg/dL all other times of the day Specimen Anatomical Collection Method Collection Time Receive d Time (Source) Location / / Volume Laterality Blood specimen 06/28/2018 8:52 PM 019 8:52 (specimen) EST PM EST Jhonny Oneal MD POINT OF CARE TEST ORDERABLE S Performing Organization Address City/[facility] Phon e Number [address] POCT Glucose (06/28/2018 5:11 PM EST) athologist Signature POC Glucose 131 65 - 199 [facility] mg/dL [facility] Comment: Supplemental ranges: <140 mg/dL before meals <180 mg/dL all other times of the day Specimen Anatomical Collection Method Collection Time Receive d Time (Source) Location / / Volume Laterality Blood specimen 06/28/2018 5:11 PM 019 5:11 (specimen) EST PM EST Jhonny Oneal MD POINT OF CARE TEST ORDERABLE S Performing Organization Address City/State/ZIP [place] [address] POCT Glucose (06/28/2018 2:45 PM EST) P athologist Signature POC Glucose 150 65 - 199 JW KEREN mg/dL [facility] Comment: Supplemental ranges: <140 mg/dL before meals <180 mg/dL all other times of the day Specimen Anatomical Collection Method Collection Time Receive d Time (Source) Location / / Volume Laterality Blood specimen 06/28/2018 2:45 PM 019 2:45 (specimen) EST PM EST Jhonny Oneal MD POINT OF CARE TEST ORDERABLE S Performing Organization Address City/State/ZIP [place] [address] (ABNORMAL) Hemogram (06/28/2018 2:40 PM EST) Analysis Performed At Patho logist Time Signature WBC 8.9 4.0 - 9.5 JW KEREN x10(3)/[facility] LABORATORY RBC 4.13 (L) 4.58 - JW KEREN 5.54 [facility] x10(6)/[facility] LABORATORY Hemoglobin 12.1 (L) 13.7 - JW KEREN 16.5 gm/dL [facility] Hematocrit 37.3 (L) 40.5 - JW KEREN 48.5 % [facility] MCV 90.3 82.9 - JW KEREN 93.1 [facility] LABORATORY MCH 29.3 27.5 - JW KEREN 32.1 pg [facility] MCHC 32.4 32.0 - JW KEREN 35.7 gm/dL [facility] Platelets 199 145 - 357 JW KEREN x10(3)/[facility] LABORATORY RDWSD 46.8 (H) 36.0 - JW KEREN 45.0 [facility] LABORATORY RDWCV 14.3 (H) 11.4 - [facility] 13.8 % [facility] MPV 11.3 7.6 - 12.9 [facility] LABORATORY nRBC % Auto 0.0 % [facility] nRBC Abs Auto 0.000 0.000 - [facility] 0.000 [facility] x10(3)/[facility] LABORATORY Specimen Anatomical Collection Method Collection Time Receive d Time (Source) Location / / Volume Laterality Blood specimen 06/28/2018 2:40 PM 019 3:06 (specimen) EST PM EST Resulting Agency Comment Spec In Lab Jhonny Oneal MD HEMATOLOGY ORDERABLES Performing Organization Address City/State/ZIP [place] [address] (ABNORMAL) BMP w/fasting Glucose (06/28/2018 2:40 PM EST) P athologist Signature Glucose 152 (H) 65 - 99 [facility] Fasting mg/dL [facility] Comment: ?Fasting* Glucose Interpretive C riteria [...] of Diabetes Mellitus, Position Statement from the [employer]. ??Diabete s Care, Volume 33, Supplement 1, Apr 2009 BUN 21 (H) 10 - 20 mg/dL [facility] Creatinine 0.84 0.80 - 1.50 mg/dL [facility] Sodium 141 135 - 145 mmol/L [facility] Potassium 4.3 3.5 - 5.0 mmol/L [facility] Comment: Please note: ??Patients with WBC >100,00 0 may have falsely elevated Potassium levels. ??For accurate Potassium quantif ication in these patients send serum separator tube (gold top) for subsequent determinations. ??Contact the Clinical Chemistry Laboratory if there are any qu estions. Chloride 104 98 - 107 mmol/L [facility] CO2 23 22 - 31 mmol/L [facility] Anion Gap 14 5 - 15 mmol/L [facility] Calcium 8.0 (L) 8.5 - 10.5 mg/dL [facility] Comment: result rechecked- Estimated GFR 97 >=60 mL/min/1.73 m?? [facility] Comment: The eGFR was calculated using the CKD-EP I equation. As with all creatinine based estimates of kidney function, eGFR values calculated with the CKD-EPI equation are not accurate in patients wi th acute kidney failure, extremes of body mass or the acutely ill. http://[employer] eGFR 113 >=60 mL/min/1.73 m?? [facility] Comment: The eGFR was calculated using the CKD-EP I equation. As with all creatinine based estimates of kidney function, eGFR values calculated with the CKD-EPI equation are not accurate in patients wi th acute kidney failure, extremes of body mass or the acutely ill. [email or web address] Specimen Anatomical Collection Method Collection Time Receive d Time (Source) Location / / Volume Laterality Blood specimen 06/28/2018 2:40 PM 019 3:06 (specimen) EST PM EST Resulting Agency Comment Spec In Lab Jhonny Onela MD CHEMISTRY ORDERABLES Performing Organization Address City/State/[place] [address] EKG 12 Lead (06/28/2018 2:38 PM EST) Component Value Ref Range Test Analysis Performed Pathologis t Method Time At Signature Ventricular rate 71 BPM MUSE SYSTEM Atrial Rate 71 BPM MUSE SYSTEM P-R Interval 142 ms MUSE SYSTEM QRS Duration 94 ms MUSE SYSTEM Q-T Interval 406 ms MUSE SYSTEM QTC Calculated 441 ms MUSE SYSTEM (Bezet) Calculated P [place] 72 degrees MUSE SYSTEM Calculated R [place] 52 degrees MUSE SYSTEM Calculated T [place] 105 degrees MUSE SYSTEM INTERPRETATION Normal sinus rhythm MUSE SYSTEM T wave abnormality, consider lateral ischemia Abnormal ECG When compared with ECG of 27-JUN-2018 19:46, No significant change was found Confirmed by MD JUSTA, ASA ([id number]) on 06/28/2018 5:42:21 PM Specimen Anatomical [...] Time Received Time / Laterality Volume Narrative [facility] - 06/28/2018 1:19 PM EST This exam is for storage only and is aut o-finalizing. Jhonny Oneal MD IMG FILM LIBRARY ORDERABLES Performing Organization Address City/[facility]/ZIP Code Phon e Number [place], [place] POCT Glucose (06/28/2018 12:18 PM EST) P athologist Signature POC Glucose 142 65 - 199 [facility] mg/dL [facility] Comment: Supplemental ranges: <140 mg/dL before meals <180 mg/dL all other times of the day Specimen Anatomical Collection Method Collection Time Receive d Time (Source) Location / / Volume Laterality Blood specimen 06/28/2018 12:18 9 (specimen) PM EST 12:18 PM EST Jhonny Oneal MD POINT OF CARE TEST ORDERABLE S Performing Organization Address City/State/ZIP [facility] [place] [address] (ABNORMAL) BLOOD GAS 2 ARTERIAL (06/28/2018 11:41 AM EST) Analysis Performed At Patho logist Time Signature pH Art 7.42 7.35 - [facility] 7.45 [facility] pCO2 Art 35 35 - 45 [facility] LABORATORY pO2 Art 136 (H) 85 - 104 [facility]ORY HCO3 Art 22.5 20.0 - [facility] 26.0 [facility] mmol/L [facility] BE Art -2.0 -3.0 - 3.0 [facility] mmol/L [facility] Hgb Blood Gas 12.9 (L) 13.7 - [facility] 16.5 gm/dL [facility] O2HB Art 96.8 94.0 - [facility] 97.0 % [facility] COHB Art 1.4 % [facility] Comment: Nonsmokers: 0.5-1.5% COHB Smokers: Variable, but usually less than 10% Toxic: 20-30% COHB Lethal: Greater than 60% COHB METHB Art 0.3 <=1.5 % [facility] Na Whole Blood 140 135 - 145 mmol/L [facility] K Whole Blood 4.0 3.5 - 5.0 mmol/L [facility] Comment: Please note: Patients with WBC >100,000 may have falsely elevated Potassium levels. Contact the Clinical Chemistry L aboratory if there are any questions. ICa Whole Blood 1.08 (L) 1.15 - 1.33 mmol/L [facility] Comment: Note: ??Total bilirubin higher than 20 m g/dL may lead to falsely low ionized calcium. CL Whole Blood 106 98 - 107 mmol/L [facility] Gluc Whole Bld 127 65 - 199 mg/dL [facility] Comment: Diabetes: >=200 mg/dL plus symp toms. Lactate WB 1.4 0.5 - 2.2 mmol/L [facility] FIO2 Art 56 % [facility] PF Ratio Art 243 [facility] Specimen Anatomical Collection Method Collection Time Receive d Time (Source) Location / / Volume Laterality Blood specimen 06/28/2018 11:41 9 (specimen) AM EST 11:41 AM EST Jhonny Oneal MD CHEMISTRY ORDERABLES Performing Organization Address City/State/[place] [address] POCT Glucose (06/28/2018 11:02 AM EST) athologist Signature POC Glucose 143 65 - 199 JW DURANTKEREN mg/dL [facility] Comment: Supplemental ranges: <140 mg/dL before meals <180 mg/dL all other times of the day Specimen Anatomical Collection Method Collection Time Receive d Time (Source) Location / / Volume Laterality Blood specimen 06/28/2018 11:02 9 (specimen) AM EST 11:02 AM EST Jhonny Oneal MD POINT OF CARE TEST ORDERABLE S Performing Organization Address City/State/ZIP Code Phon e Number [address] POCT Glucose (06/28/2018 7:38 AM EST) athologist Signature POC Glucose 121 65 - 199 [facility] mg/dL [facility] Comment: Supplemental ranges: <140 mg/dL before meals <180 mg/dL all other times of the day Specimen Anatomical Collection Method Collection Time Receive d Time (Source) Location / / Volume Laterality Blood specimen 06/28/2018 7:38 AM 019 7:38 (specimen) EST AM EST Jhonny Oneal MD POINT OF CARE TEST ORDERABLE S Performing Organization Address City/State/ZIP Code Phon e Number [address] POCT Glucose (06/27/2018 10:02 PM EST) athologist Signature POC Glucose 182 65 - 199 [facility] mg/dL [facility] Comment: Supplemental ranges: <140 mg/dL before meals <180 mg/dL all other times of the day Specimen Anatomical Collection Method Collection Time Receive d Time (Source) Location / / Volume Laterality Blood specimen 06/27/2018 10:02 9 (specimen) PM EST 10:02 PM EST Jhonny Oneal MD POINT OF CARE TEST ORDERABLE S Performing Organization Address City/State/ZIP Code Phon e Number [address] (ABNORMAL) POCT Glucose (06/27/2018 8:12 PM EST) athologist Signature POC Glucose 218 (H) 65 - 199 JW OREILLY mg/dL [facility] Comment: Supplemental ranges: <140 mg/dL before meals <180 mg/dL all other times of the day Specimen Anatomical Collection Method Collection Time Receive d Time (Source) Location / / Volume Laterality Blood specimen 06/27/2018 8:12 PM 019 8:12 (specimen) EST PM EST Jhonny Oneal MD POINT OF CARE TEST ORDERABLE S Performing Organization Address City/State/ZIP Code Phon e Number [facility] [place] [address] EKG 12 Lead (06/27/2018 7:46 PM EST) Component Value Ref Range Test Analysis Performed Pathologis t Method Time At Signature Ventricular rate 84 BPM MUSE SYSTEM Atrial Rate 84 BPM MUSE SYSTEM P-R Interval 142 ms MUSE SYSTEM QRS Duration 96 ms MUSE SYSTEM Q-T Interval 356 ms MUSE SYSTEM QTC Calculated 420 ms MUSE SYSTEM (Bezet) Calculated P [place] 67 degrees MUSE SYSTEM Calculated R [place] 38 degrees MUSE SYSTEM Calculated T [place] 103 degrees MUSE SYSTEM INTERPRETATION Normal sinus rhythm MUSE SYSTEM Possible Left atrial enlargement Abnormal QRS-T angle, consider primary T wave abnormality Abnormal ECG When compared with ECG of 17-AUG-2016 13:28, T wave inversion no longer evident in Lateral leads Confirmed by MD Marquez, Rolf Beavers ([id number]) on 06/28/2018 10 :08:13 PM Specimen Anatomical [...] below. ? Electronically signed by: Ronald DAILY [facility] ([phone]), at 06/27/2018 8:52 PM Narrative 06/27/2018 8:52 [...] number below. Electronically signed by: Ronald DAILY [facility] ([phone]), at 06/27/2018 8:52 PM Jhonny Oneal MD IMG DX ORDERABLES POCT Glucose (06/27/2018 6:00 PM EST) athologist Signature POC Glucose 168 65 - 199 [facility] mg/dL [facility] Comment: Supplemental ranges: <140 mg/dL before meals <180 mg/dL all other times of the day Specimen Anatomical Collection Method Collection Time Receive d Time (Source) Location / / Volume Laterality Blood specimen 06/27/2018 6:00 PM 019 6:00 (specimen) EST PM EST Jhonny Oneal MD POINT OF CARE TEST ORDERABLE S Performing Organization Address City/[facility]/ZIP Code Phon e Number [address] ABORH Recheck Status (06/27/2018 5:48 PM EST) [facility] Method Time Signature ABORH Type Completed [facility] LABORATORY Specimen Anatomical Collection Method Collection Time Receive d Time (Source) Location / / Volume Laterality Blood specimen 06/27/2018 5:48 PM 019 5:54 (specimen) EST PM EST Resulting Agency Comment Spec In Lab Meliton Rodriguez MD BLOOD BANK ORDERABLES Performing Organization Address City/State/ZIP Code [place] [address] Antibody screen (06/27/2018 5:48 PM EST) [facility] Method Time Signature Ab Screen Negative [facility] LABORATORY Expires at 06/30/2018 [id number] on: [facility] Specimen Anatomical Collection Method Collection Time Receive d Time (Source) Location / / Volume Laterality Blood specimen 06/27/2018 5:48 PM 019 5:54 (specimen) EST PM EST Resulting Agency Comment Spec In Lab Meliton Rodriguez MD BLOOD BANK ORDERABLES Performing Organization Address City/[facility]/ZIP Code [place] [address] ABO/Rh Typing (06/27/2018 5:48 PM EST) athologist Signature ABORh Type A Pos [facility] Specimen Anatomical Collection Method Collection Time Receive d Time (Source) Location / / Volume Laterality Blood specimen 06/27/2018 5:48 PM 019 5:54 (specimen) EST PM EST Resulting Agency Comment Spec In Lab Meliton Rodriguez MD BLOOD BANK ORDERABLES Performing Organization Address City/State/[place] [address] (ABNORMAL) Differential, Automated (06/27/2018 5:45 PM EST) [facility] gist Method Time Signature Neutrophils % 49.0 % [facility] Neutr Abs (ANC) 5.21 1.70 - [facility] 6.10 [facility] x10(3)/[facility] LABORATORY Lymphocytes % 39.1 % [facility] Lymphocytes Abs 4.2 (H) 0.9 - 3.2 [facility] x10(3)/[facility] LABORATORY Monocytes % 7.5 % [facility] Monocyte Abs 0.8 0.3 - 0.9 [facility] x10(3)/[facility] LABORATORY Eosinophils % 2.7 % [facility] Eosinophils Abs 0.3 0.0 - 0.4 [facility] x10(3)/[facility] LABORATORY Basophils % 0.8 % [facility] Basophils Abs 0.1 0.0 - 0.1 [facility] x10(3)/[facility] LABORATORY Immature Gran % 0.90 % [facility] Comment: Immature granulocytes(IG's)percentage an d absolute count will include metamyelocytes, myelocytes, and promyelo cytes. Blood smears from CBCs yielding IG's will be scanned manually for concor dance. If this scan disagrees with the automated IG or if promyelocytes are not ed, a manual differential will be performed. Madhuri Gran Abs 0.10 (H) 0.00 - 0.04 x10(3)/[facility] LABORATORY Specimen Anatomical Collection Method Collection Time Receive d Time (Source) Location / / Volume Laterality Blood specimen 06/27/2018 5:45 PM 019 5:53 (specimen) EST PM EST Resulting Agency Comment Spec In Lab Meliton Rodriguez MD HEMATOLOGY ORDERABLES Performing Organization Address City/State/[place] [address] (ABNORMAL) Hemogram (06/27/2018 5:45 PM EST) Analysis Performed At Patho logist Time Signature WBC 10.6 (H) 4.0 - 9.5 JW KEREN x10(3)/[facility] LABORATORY RBC 4.68 4.58 - JW KEREN 5.54 [facility] x10(6)/[facility] LABORATORY Hemoglobin 13.9 13.7 - [facility] 16.5 gm/dL [facility] Hematocrit 41.9 40.5 - [facility] 48.5 % [facility] MCV 89.5 82.9 - [facility] 93.1 [facility] LABORATORY MCH 29.7 27.5 - JW KEREN 32.1 pg [facility]ORATORY MCHC 33.2 32.0 - JW KEREN 35.7 gm/dL [facility] Platelets 217 145 - 357 [facility] x10(3)/[facility] LABORATORY RDWSD 46.2 (H) 36.0 - JW KEREN 45.0 [facility] LABORATORY RDWCV 14.4 (H) 11.4 - [facility] KEREN 13.8 % [facility]ORY MPV 11.8 7.6 - 12.9 [facility] nRBC % Auto 0.0 % [facility]ORATORY nRBC Abs Auto 0.000 0.000 - [facility] KEREN 0.000 [facility] x10(3)/[facility] LABORATORY Specimen Anatomical Collection Method Collection Time Receive d Time (Source) Location / / Volume Laterality Blood specimen 06/27/2018 5:45 PM 5:53 (specimen) EST PM EST Resulting Agency Comment Spec In Lab Meliton Rodriguez MD HEMATOLOGY ORDERABLES Performing Organization Address City/[facility]/[place] [address] APTT (06/27/2018 5:45 PM EST) P athologist Signature PTT 27 25 - 37 sec [facility] LABORATORY Comment: The PTT is NOT [...] Oneal MD HEMATOLOGY ORDERABLES Performing Organization Address City/[facility] [place] [address] Prothrombin Time (06/27/2018 5:45 PM EST) athologist Signature PT 11.9 9.4 - 12.5 [facility] LABORATORY INR 1.0 [facility] LABORATORY Comment: An INR <2.0 indicates [...] Oneal MD HEMATOLOGY ORDERABLES Performing Organization Address City/[facility]/[place] [address] (ABNORMAL) Basic Metabolic Panel (non-fasting) (06/27/2018 5:45 PM EST) athologist Signature Glucose Lvl 183 65 - 199 [facility] mg/dL [facility] LABORATORY Comment: Diabetes: >=200 mg/dL plus symp toms BUN 22 (H) 10 - 20 mg/dL [facility] LABORATORY Creatinine 0.96 0.80 - 1.50 mg/dL [facility] LABORATORY Sodium 138 135 - 145 mmol/L [facility] LABORATORY Potassium 4.5 3.5 - 5.0 mmol/L [facility] LABORATORY Comment: Please note: ??Patients with WBC >100,00 0 may have falsely elevated Potassium levels. ??For accurate Potassium quantif ication in these patients send serum separator tube (gold top) for subsequent determinations. ??Contact the Clinical Chemistry Laboratory if there are any qu estions. Chloride 99 98 - 107 mmol/L [facility] LABORATORY CO2 25 22 - 31 mmol/L [facility] LABORATORY Anion Gap 14 5 - 15 mmol/L [facility] LABORATORY Calcium 9.7 8.5 - 10.5 mg/dL [facility] LABORATORY Estimated GFR 87 >=60 mL/min/1.73 m?? [facility] LABORATORY Comment: The eGFR was calculated using the CKD-EP I equation. As with all creatinine based estimates of kidney function, eGFR values calculated with the CKD-EPI equation are not accurate in patients wi th acute kidney failure, extremes of body mass or the acutely ill. http://[employer]/[facility] eGFR 101 >=60 mL/min/1.73 m?? [facility] LABORATORY Comment: The eGFR was calculated using the CKD-EP I equation. As with all creatinine based estimates of kidney function, eGFR values calculated with the CKD-EPI equation are not accurate in patients wi th acute kidney failure, extremes of body mass or the acutely ill. http://[employer]/[facility] Specimen Anatomical Collection Method Collection Time Receive d Time (Source) Location / / Volume Laterality Blood specimen 06/27/2018 5:45 PM 019 5:53 (specimen) EST PM EST Resulting Agency Comment Spec In Lab Jhonny Oneal MD CHEMISTRY ORDERABLES Performing Organization Address City/State/[place] [address] documented in this encounter Visit Diagnoses Diagnosis Critical lower limb ischemia Unspecified circulatory system disorder S/P CABG (coronary artery bypass graft) Postsurgical aortocoronary bypass status documented in this encounter Administered Medications Inactive [...] Given 06/29/2018 2:36 PM EST 400 mg glucagon (human recombinant) injection S [...] insulin lispro (HumaLOG) VIAL injection 1-4 Given 08/2018 6:22 PM EST 2 Units Units 1-4 Units, Subcutaneous, 3 TIMES DAILY BEFORE MEALS, First dose on Tue06/27/18 at 1730, Until Discontinued, CORRECTION BOLUS Sensitive to insulin [...] insulin lispro (HumaLOG) VIAL injection 1-4 Given 10/2018 8:26 PM EST 4 Units Units 1-4 Units, Subcutaneous, 4 TIMES DAILY BEFORE MEALS & NIGHTLY, First dose (after last modification) on Tue06/27/18 at 2230, Until Discontinued, CORRECTION [...] specifically told to do so., Routine Given 06/29/2018 4:27 PM EST 3 Units Given 06/29/2018 11:59 AM EST 2 Units insulin lispro (HumaLOG) VIAL injection 1-4 Given [...] Given 06/30/2018 1:47 AM EST 3 Units isosorbide mononitrate (IMDUR) CR tablet 60 [...] Given 06/28/2018 9:20 AM EST 40 mg piperacillin-tazobactam (ZOSYN) New Bag 06/29/2018 9:18 AM [...] 5:51 PM EST 3.375 g 12.5 mL/hr polyethylene glycol (MIRALAX) packet 17 g Given [...] Given 06/29/2018 9:19 AM EST 5 mLs sodium chloride 0.9% infusion New Bag 06/28/2018 12:16 AM EST 100 mL/hr 100 mL/hr 100 mL/hr, Intravenous, CONTINUOUS, Starting on Tue06/28/18 at 0000, Until Tue06/28/18 at 0959 documented in this encounter Active and Recently Administered Medications Times are shown in EST. Scheduled Medication Order 06/28/2018 06/29/2018 06/30/2018 aspirin chewable tablet 81 mg 1008 (JUN Hold - Provide r: Admin Adt - Reason: Transfer to a Procedural area)1556 ([facility] Unhold - Provider: Admin Adt) 0918 (Given - Provider: Arthur Fisher, HEAVEN) 0931 (Given - Provider: Tiffany John I, HEAVEN) 81 mg, Oral, DAILY, First dose on 11/10 at 0900, Until Discontinued, Routine atorvastatin (LIPITOR) tablet 80 mg 1008 (JUN Hold - P rovider: Admin Adt - Reason: Transfer to a Procedural area)1556 ([facility] Unhold - Provider: Admin Adt)1751 (Given - Provider: Yoav Shultz RN) 1609 (Given - Provider: Arthur Fisher RN) 80 mg, Oral, EVERY EVENING, First dose o n Tue06/27/18 at 1730, Until Discontinued, Routine buPROPion (WELLBUTRIN SR or ZYBAN) SR tablet 150 mg 09 20 (Given - Provider: Yoav Shultz RN)1008 ([facility] Hold - Provider: Admin Adt - Reason: Transfer to a Procedural area)1556 ([facility] Unhold - Provider: Admin Adt)2026 (Given - Provider: Darlin Phelan RN) 0917 (Given - Provider: Arthur Fisher RN)2020 (Given - Provider: Austin Grove RN) 0931 (Given - Provider: Tiffany Phelan RN) 150 mg, Oral, 2 TIMES DAILY, First dose on Tue06/27/18 at 2100, Until Discontinued, DO NOT CRUSH OR OPEN, Routine furosemide (LASIX) tablet 20 mg 1008 (JUN Hold - Provi almita: Admin Adt - Reason: Transfer to a Procedural area)1556 ([facility] Unhold - Provider: Admin Adt) 0917 (Given - Provider: Arthur Fisher RN) 0931 (Given - Provider: Tiffany Phelan RN) 20 mg, Oral, DAILY, First dose on 11/10 at 0900, Until Discontinued, Routine gabapentin (NEURONTIN) capsule 400 mg 0016 (Given - Pr ovider: Royce Lu RN)0920 (Given - Provider: Yoav Shultz RN)1008 (MAR [...] - Reason: Or almita parameters not met) 2026 (Given - Provider: Austin Grove RN) insulin [...] parameters not met)0953 (Given - Provider: Tiffany John I RN - Comment: bg 246) 1-4 Units, [...] area)1556 (J[facility] Unhold - Provider: Admin Adt) 0915 (Given - Provider: Arthur Fisher RN) 0937 (Given - Provider: Tiffany John I, RN) 60 mg, Oral, DAILY, First dose [...] Plus (CANCELED) 0127 (New Bag - Provider: Mingfang Lu , RN)0527 (Stopped - Provider: Royce Lu RN)0921 (New Bag - Provider: Yoav Shultz RN)1008 (JUN Hold - Provider: Admin Adt - Reason: Transfer to a P rocedural area) 0224 (New Bag - Provider: Darlin Phelan RN)0624 (Stopped - Provider: Darlin Phelan RN)0918 (New Bag - Provider: Arthur Fisher, HEAVEN)1327 (Stopped - Provider: Krystle Dunn RN) 3.375 g, Intravenous, EVERY 8 HOURS, Fir st dose on Tue06/27/18 at 1730, Until Discontinued, Administer over 4 Hours, Warning Vesicant/Irritant Medication Do not administer or Y-site with lactated r 1045 (Bolus - Provider: Gregory Hawkins MD)1321 (Stopped - Provider: Yoav Shultz RN)1556 ([facility] Unhold - Provider: Admin Adt)1751 (New Bag [...] Admin Adt) 0918 (Given - Provider: Arthur Fisher RN) 0900 (Not Given - Provider: [...] () 0016 (New Bag - Provider: Royce Lu, RN)0955 (Stopped - Provider: Yoav Shultz, HEAVEN) 100 mL/hr, at 100 mL/hr, Intravenous, CO NTINUOUS, Starting Tue06/28/18 at 0000, Until Tue06/28/18 at 0959 PRN Medication Order 06/28/2018 06/29/2018 06/30/2018 acetaminophen (TYLENOL) tablet 1,000 mg 0741 (Given - Provider: Yoav Shultz, HEAVEN)1008 (JUN Hold - Provider: Admin Adt - [...] - Reason: Transfer to a Procedural area)1556 ([facility] Unhold - Provider: Admin Adt) 10 mg, [...] Provider: Jhonny Oneal MD) ONCE PRN, Starting 06/28/18 at 1118, Intra-Operative (Intra-Pr ocedure) glucagon (human recombinant) injection SolR 1 mg(Linke d Group 2) 1008 (JUN Hold - Provider: Admin [...] area)155 (JUN Unhold - Provider: Admin Adt) 15-30 [...] Darlin Phelan RN)0428 (See Alternative - Provider: Darlin Phelan RN)0916 (Given - Provider: Arthur Fisher, RN)1436 (Given - Provider: Krystle Dunn, HEAVEN)1854 (Given - Provider: Dae Yanez RN) 0149 [...] Phelan RN) 2251 (Given - Provider: Austin Grove RN) oxyCODONE (ROXICODONE) immediate release tablet 5-10 m g(Linked Group 3) 0326 (See Alternative - Provider: Royce Lu RN)0741 (See Alternative - Provider: Yoav Shultz RN)1008 (MAR Hold - Provider: Admin Adt - Reason: Transfer to a Procedural area)1439 ([facility] Unhold - Provider: Gisela Navarro RN) 0023 (See Alternative - Provider: Darlin Phelan RN)0428 (Given - Provider: Darlin Phelan RN)0916 (See Alternative - Provider: Arthur Fisher, RN)1436 (See Alternative - Provider: Krystle Dunn, HEAVEN) 0149 (See Alternative - Provider: Austin Grove [...] Oral, EVERY 4 HOURS PRN, Start ing Tue06/27/18 at 1725, Until Tue06/30/18 at 1420, Pain, severe pain (7-10)
Initial dose 10mg. If pain control not adequate in 60 minutes, give additional 5mg
Routine documented in this encounter Care Teams Senior Care Provider Relationship Specialty Start Date End Date Joel Mccarthy MD PCP - General General Internal Medicine 06/29/18 [address] [place] [address] documented as of this encounter
--- OUTSIDE RECORDS SUMMARY | 2021-10-30 01:54 | XMS_ITS | Encounter Summary ---
:1960 Author Organization [place] [address] Care Team Providers Name Role Phone Joel Mccarthy MD Primary Care Provider Reason for Visit Reason Comments Wound Check PT HERE FOR S/P R ILIFEM END ART 2 WK F/U Encounter Details Date Type Department Care Team Description 07/18/2018 Office Visit Vascular Surgery at Pooja Oneal MD Critical lower limb [facility] ischemia [facility] [address] VASCULAR SURGERY [place] [id number] [phone] Social History Tobacco Use Types Packs/Day Years Used Date Former Smoker 1 40 Smokeless Tobacco: Never Used Alcohol Use Standard Drinks/Week Comments Yes 4 (1 standard drink = 0.6 oz pure alcoho l) Sex Assigned at Date Recorded Not on file documented as of this encounter Last Filed Vital Signs Vital Sign Reading Time Taken Comments Blood Pressure 120/57 07/18/2018 9:53 AM EDT Pulse 95 07/18/2018 9:53 AM EDT Temperature - - Respiratory Rate 18 07/18/2018 9:53 AM EDT Oxygen Saturation - - Inhaled Oxygen Concentration - - Weight 88.5 kg (195 lb) 07/18/2018 9:53 AM EDT Height 167.6 cm (5' 6) 07/18/2018 9:53 AM EDT Body Mass Index 31.47 07/18/2018 9:53 AM EDT documented in this encounter Progress Notes Lamine Oneal MD - 07/18/2018 10:00 AM EDT Vascular Surgery Clinic Visit July 18, 2018 CC: Patient is a 57 y.o. male who is here for follow up of right heel wound. 06/28/18 R fem endart/iliac stent for CLI Presents for scheduled follow up visit. Underwent above procedure for right heel fissure. Continues to have pain in his right heel. ROS significant for CAD s/p CABG in 2017. No recent CP or SOB. Denies history of stroke, TIA, or amaurosis fugax. Has DM on insulin. Continues to smoke about 1ppd. ?? PMH: CAD s/p CABG , HTN, HLD, DM All: NKDA Medications include: asa, imdur, lisinopril, lopressor, lasix, lipitor, prilosec, insulin, metformin, glipizide, wellbutrin, neurontin, prozac ?? Tob: current, 1ppd. Physical Exam: ?? On exam, patient in NAD. Right groin incision with superficial wound breakdown on upper aspect. Right heel wound with some necrotic tissue. No surrounding erythema, drainage, or fluctuance. Labs: Residential Fee Appraiser (06/30/18): 0.82 Lipids (07/09/16): TC 295, HDL 23, LDL 159 HbA1C (07/09/16): 12.7 A/P: 57yo male s/p above procedure for non-healing right heel wound. Admit and plan for RLE angio/intervention tomorrow in IR. -admit to vascular surgery -dry dressing to right groin and heel wounds -offload R heel -con't asa and stain -hold metformin -check HbA1C -smoking cessation counseling -RLE angio/intervention tomorrow in IR Lamine Oneal MD documented in this encounter Plan of Treatment Not on filedocumented as of this encounter Visit Diagnoses Diagnosis Critical lower limb ischemia Unspecified circulatory system disorder documented in this encounter Care Teams Stock Broker Relationship Specialty Start Date End Date Joel Mccarthy MD PCP - General General Internal Medicine 06/29/18 [address] [place] [address] documented as of this encounter
--- OUTSIDE RECORDS SUMMARY | 2021-10-30 01:54 | XMS_ITS | Encounter Summary ---
:1960 Author Organization [facility] [place] [address] Care Team Providers Name Role Phone Joel Mccarthy MD Primary Care Provider Reason for Referral Diagnostic Test (Routine) - Closed Specialty Diagnoses / Procedures Referred By Contact Refer red To Contact Radiology Diagnoses PVD (peripheral vascular disease) with claudication [facility] [place] [facility] Surg 3v [facility] Interventionl Rad Procedures VS Arteriogram Lower Extremity Vascular Surgery [facility] [place] [address] [place] [address] Fax: Referral ID Status Reason Start Date Expiration Date Visits V isits Requested Authorized [id number] Closed Specialty 07/18/2018 07/18/2019 1 1 Service Requested onsultation (Routine) - Closed Specialty Diagnoses / Procedures Referred By Contact Refer red To Contact Unknown Specialty Diagnoses Tobacco abuse Jhonny Oneal MD [facility] [address] [facility] [place] [address] [place] [address] Referral ID Status Reason Start Date Expiration Date Visits V isits Requested Authorized [id number] Closed Consult Only 07/20/2018 01/16/2019 1 1 Reason for Visit Auth/Cert Specialty Diagnoses / Procedures Referred By Contact Refer red To Contact Diagnoses Critical lower limb ischemia CRITICAL LIMB ISCHEMIA RT LWR LEG Procedures EMERGENCY IPI Referral ID Status Reason Start Date Expiration Date Visits Requ ested Visits Authorized [id number] 1 1 Encounter Details Date Type Department Care Team Description 07/18/2018 - Hospital Encounter 4 Chidi Perez Jhonny Oneal, Tobacco abuse; 07/20/2018 Keren Cordova MD PVD (peripheral vascular disease) with c laudication; [facility] MEDICAL Critical lower limb ischemia [facility] [address] [id number] [phone] Social History Tobacco Use Types Packs/Day Years Used Date Former Smoker 1 40 Smokeless Tobacco: Never Used Alcohol Use Standard Drinks/Week Comments Yes 4 (1 standard drink = 0.6 oz pure alcoho l) Sex Assigned at Date Recorded Not on file documented as of this encounter Last Filed Vital Signs Vital Sign Reading Time Taken Comments Blood Pressure 150/78 07/20/2018 10:30 AM EDT Pulse 80 07/19/2018 2:15 PM EDT Temperature 36.9 ??C (98.4 ??F) 07/20/2018 7:24 AM EDT Respiratory Rate 20 07/20/2018 7:24 AM EDT Oxygen Saturation 95% 07/20/2018 7:24 AM EDT Inhaled Oxygen Concentration - - Weight 80.6 kg (177 lb 11.1 oz) 07/19/2018 5:27 PM EDT Height 167.6 cm (5' 6) 07/19/2018 5:27 PM EDT Body Mass Index 28.68 07/19/2018 5:27 PM EDT documented in this encounter Discharge Summaries Yumiko Allen PA - 07/20/2018 9:29 AM EDT Inpatient - Discharge Summary Patient Name: Bertin Lorenzo Patient Age: 57 y.o. Birthdate: 1960 Admit date: 07/18/2018 Discharge date and time: 07/20/2018 Attending Physician: Jhonny Oneal MD Discharge Diagnoses (Hospital Problems) and Secondary Diagnoses (Chronic Problems): Active Hospital Problems Diagnosis ??? Critical lower limb ischemia Resolved Hospital Problems No resolved problems to display. Active Non-Hospital Problems Diagnosis ??? Leg pain, bilateral ??? Aortoiliac occlusive disease ??? S/P CABG (coronary artery bypass graft) ??? Atherosclerosis of [place] artery of right lower extremity with intermittent claudication ?? 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 ??? Hypertension ??? Financial difficulties--- barrier to medication use ??? Coronary artery disease 06/2016: NSTEMI. Cath showing 3vD. Surgery recommended. ??? Non ST elevation [place] due to severe 3vD-- awaiting for CABG Tuesday ??? Diabetes mellitus, type 2 ??? Hyperlipidemia ??? Osteoarthritis Operations/Major Procedures: 07/19/2018: Left femoral arterial access, Aortogram, RLE arteriogram History of Presentation: 57 y.o.??male??with history of DM, CAD s/p CABG 2016, MELONIE not on nightly CPAP, diverticulitis s/p partial bowel resection??who has been followed in the vascular surgery clinic for aortoiliac occlusive disease. ??He was recently admitted for rest pain and heel wound 06/27/18 - 06/30/18 where CTA demonstrated occlusion of the right external iliac artery and severe QUALITY REVIEWER stenosis. ??For this he underwent right iliofemral endarterectomy with patch graft and stenting. He presents to clinic today for scheduled follow-up. Unfortunately, he continues to have pain in his right heel and has failed to progress in heeling the right heel fissure. He denies f/c/cp/sob/abd pain/n/v. He has been minimally ambulatory since discharge from the hospital approximately two weeks ago. He has managed his pain with around the clock oxycodone every 4- 6hrs. He notes no significant changes in health since discharge. Hospital Course: Pt admitted from clinic. Pt taken to IR: Aortogram demonstrated: infrarenal aorta widely patent, RLE HUMA/EIA stents widely patent, RLE internal iliac artery patent, LLE with severe stenosis of distal HUMA/proximal EIA, L IIA patent but proximal aspect not well visualized. RLE arteriogram demonstrated: QUALITY REVIEWER widely patent, profunda widely patent, SFA with flush occlusion at origin, SFA reconstitutes at mid-femur from profunda collaterals, popliteal artery widely patent, AT widely patentwith runoff to distal calf, TP trunk patent, PT patent with runoff to distal calf, peroneal patent proximally, then not visualized (distal calf and foot not well imaged due to issue with dye injection.) Pt re-admitted to the floor. Imaging studies obtained and decision made to move to surgery. Pt requested to leave the hospital overnight for social issues with pets at home. He is stable following his IR procedure with good PO intake, adequate output and independent ambulation and is medically cleared for d/c to home. He will present back to the hospital tomorrow for scheduled surgery. BP 110/49 Pulse 80 Temp 36.9 ??C (98.4 ??F) (Oral) Resp 20 Ht 167.6 cm (5' 6) Wt 80.6 kg (177 lb 11.1 oz) SpO2 95% BMI 28.68 kg/m?? Physical Exam GEN: Alert and appears stated age. Cooperative. In NAD. HEENT: Normocephalic and atraumatic. Neck: Supple, symmetric, trachea midline. CV: RRR. Pulm: No evidence of increased work of breathing. Abd: Soft, non-distended, non-tender to palpation. Neuro: No focal deficits, gross sensory or motor abnormalities. Extremities: +L groin access site c/d/i - no erythema or hematoma. +L heel ulcer with black eschar. Bilateral UE and LE warm and pink. No edema. Important Studies and Lab Data: Labs: Lab Results Component Value Date WBC 9.7 (H) 07/19/2018 RBC 4.19 (L) 07/19/2018 HGB 12.3 (L) 07/19/2018 HCT 39.1 (L) 07/19/2018 MCV 93.3 (H) 07/19/2018 MCH 29.4 07/19/2018 MCHC 31.5 (L) 07/19/2018 PLATELET 223 07/19/2018 RDWCV 14.2 (H) 07/19/2018 Lab Results Component Value Date Sodium 140 07/20/2018 Potassium 4.1 07/20/2018 Chloride 101 07/20/2018 CO2 26 07/20/2018 BUN 20 07/20/2018 Creatinine 0.81 07/20/2018 Glucose Lvl 99 07/20/2018 Studies: 07/20/2018 studies are available in chart Discharge Conditions/Prognosis: Good Discharge to: Home Discharge Medications: Your Medications New Medications Dose Details clopidogrel 75 mg Tab Commonly known as: PLAVIX Take 1 tablet by mouth daily. 75 mg Quantity: 90 tablet Refills: 3 nicotine 21 mg/24 hr Pt24 Commonly known as: NICODERM CQ Place 1 patch onto the skin daily. 1 patch Quantity: 28 patch Refills: 0 Continued medications with new dosing Dose Details metFORMIN 500 mg Tab Commonly known as: GLUCOPHAGE Take 1 tablet by mouth 2 times daily (with meals). 07/20: Do not take until instructed AFTER surgery What changed: additional instructions 500 mg Quantity: 60 tablet Refills: 12 oxyCODONE 10 mg Tab Commonly known as: ROXICODONE Take 1 tablet by mouth every 4 hours. What changed: Another medication with the same name was removed. Continue taking this medication, and follow the directions you see here. 10 mg Quantity: 15 tablet Refills: 0 Continued medications, unchanged Dose [...] gauge x 5/16 Syrg 1 Box by [facility].(Non-Drug; Combo Route) route 2 times daily. 1 Box Quantity: 100 Syringe Refills: 3 isosorbide mononitrate 60 mg Tablet sr Commonly known as: IMDUR take 1 tablet by mouth once daily Refills: 0 lisinopril 5 mg Tab Commonly known as: PRINIVIL;ZESTRIL Take 1 tablet by mouth daily. 5 mg Quantity: 90 tablet Refills: 11 metoprolol 100 mg Tab Commonly known as: LOPRESSOR Take 1 tablet by mouth 2 times daily. 100 mg Quantity: 60 tablet Refills: 12 omeprazole 40 mg Cpdr Commonly known as: PriLOSEC Take 40 mg by mouth daily. 40 mg Refills: 0 sertraline 50 mg Tab Commonly known as: ZOLOFT Take 50 mg by mouth daily. 50 mg Refills: 0 STOPPED Medications buPROPion 150 mg Sr12 Commonly known as: WELLBUTRIN SR or ZYBAN Updated Allergies/ADRs: Allergies Allergen Reactions ??? Effexor [Venlafaxine] Increased blood pressure Instructions Given to Patient at Discharge: Patient Instructions Patient Instructions You were admitted on 07/18/2018 for pain management and right leg angiogram to evaluate the blood flow to your leg. All of this went very well. Dr. Oneal will see you tomorrow for your scheduled procedure to improve the blood flow to your leg. Please come to department 4W tomorrow by 1:45PM for surgery. Anticoagulation: on Aspirin and statin daily, we started you on a new medication called plavix. Takeall of these tomorrow morning with clear liquids. Activity level: up as tolerated but take it easy overnight Diet: resume your previous regular diet until midnight. Nothing to eat after midnight tonight. Clearliquids are ok until 130pm tomorrow (this includes water, black tea, black coffee, diomedes janna or apple juice only.) Shower/Bath: ok to shower and wash all incisions under running water, pat dry. No soaking in a pool/bath/hottub. Wound Care: N/A at this time No glipizide, lasix, metformin, lisinopril tomorrow morning. You can take all of your other normal AM medications with clear liquids. For any problems or questions please call [phone] KARI Griggs, boilers inspector Nurse Clinician For issues on weeknights after 5pm and weekends please call [phone] and ask for the Vascular Fellow client solutions manager. General Instructions Congratulations for quitting smoking! Your quit date for quitting smoking is 07/19/2018 You have chosen to quit smoking using [...] Future Orders Complete By Expires Referral to [facility] [AQF774 Custom] As directed Process Instructions: If no progress note charted, please enter Clinical details in comments. Scheduling Instructions: Questions: My question or request is: Tobacco Cessation Patient consented to referral to Quitline?: Yes Discharge References/Attachments: Discharge References/Attachments None Electronically Signed By: KIT Sandoval 07/20/2018 documented in this encounter Discharge Instructions Discharge Camilla Maciel RN - 07/20/2018 9:53 AM EDT Congratulations for quitting smoking! Your quit date for quitting smoking is 07/19/2018 You have chosen to quit smoking using [...] Health and Human Services, August 2007 Patient InstructionsCamilla Shah RN - 07/18/2018 12:06 PM EDT Patient Instructions You were admitted on 07/18/2018 for pain management and right leg angiogram to evaluate the blood flow to your leg. All of this went very well. Dr. Oneal will see you tomorrow for your scheduled procedure to improve the blood flow to your leg. Please come to department 4W tomorrow by 1:45PM for surgery. Anticoagulation: on Aspirin and statin daily, we started you on a new medication called plavix. Takeall of these tomorrow morning with clear liquids. Activity level: up as tolerated but take it easy overnight Diet: resume your previous regular diet until midnight. Nothing to eat after midnight tonight. Clearliquids are ok until 130pm tomorrow (this includes water, black tea, black coffee, diomedes janna or apple juice only.) Shower/Bath: ok to shower and wash all incisions under running water, pat dry. No soaking in a pool/bath/hottub. Wound Care: N/A at this time No glipizide, lasix, metformin, lisinopril tomorrow morning. You can take all of your other normal AM medications with clear liquids. For any problems or questions please call [phone] KARI Griggs, boilers inspector Nurse Clinician For issues on weeknights after 5pm and weekends please call [phone] and ask for the Vascular Fellow client solutions manager. documented in this encounter Medications at Time [...] documented as of this encounter Progress Notes Keke Uriarte, RD - 07/20/2018 10:54 AM EDT Nutrition Progress Note Bertin Lorenzo is a 57 y.o. male Reason for intervention: Education Nutrition Recommendations: Enc bld glu < 200 to promote healing Level 2 CHO Controlled diet appropriate Patient Active Problem List Diagnosis Code ??? Diabetes mellitus, type 2 E11.9 ??? Hyperlipidemia E78.5 ??? Osteoarthritis M19.90 ??? Non ST elevation [place] due to severe 3vD-- awaiting for CABG Tuesday I21.4 ??? Atherosclerosis of [place] artery of right lower extremity with intermittent claudication I70.211 ??? Hypertension I10 ??? Financial difficulties--- barrier to medication use Z59.8 ??? Coronary artery disease I25.10 ??? S/P CABG (coronary artery bypass graft) Z95.1 ??? Leg pain, bilateral M79.604, M79.605 ??? Aortoiliac occlusive disease I74.09 ??? Critical lower limb ischemia I99.8 No past medical history on file. Active Orders Diet Carb Control diet 60/60/75 CHO counting level 2 Frequency: Effective Now Number of Occurrences: Until Specified NPO diet (Give Meds) Frequency: Effective Midnight Number of Occurrences: Until Specified Admit Weight: Estimated body mass index is 28.68 kg/m?? as calculated from the following: Height as of this encounter: 167.6 cm (5' 6). Weight as of this encounter: 80.6 kg (177 lb 11.1 oz). [place] Body Weight (IBW): [place] body weight: 63.8 kg (140 lb 10.5 oz) Adjusted ideal body weight: 70.5 kg (155 lb 7.5 oz) Estimated needs: Calories: 1600+ Protein: 75 grams Today's medications:meal associated Lispro Lab Results Component Value Date NA 140 07/20/2018 K 4.1 07/20/2018 CL 101 07/20/2018 CO2 26 07/20/2018 BUN 20 07/20/2018 CREATININE 0.81 07/20/2018 GLUCOSE 99 07/20/2018 MAGNESIUM 0.69 07/12/2016 CALCIUM 8.6 07/20/2018 AST 247 (H) 07/08/2016 ALT 41 07/08/2016 ALKPHOS 112 07/08/2016 BILITOT 0.3 07/08/2016 BILIDIR 0.1 07/08/2016 TRIG 1,000 (H) 07/09/2016 Last Bowel Movement: 07/18/18 Assessment: Pt seen per elevated A1C of 8.9 indicating average bld glu of 208 for past eight weeks. Pt reports difficulty w/ glycemic control with foot wounds but previous AiC was in the 7's. He deniesneed for education at present and verbalizes understanding of importance of good glycemic control. Discharge planning underway MARY ELKINS Beeper #: [id number] Meliton Rodriguez MD - 07/19/2018 5:12 PM EDT Surgery Post Op Check Bertin Lorenzo is a 57 y.o. male status post RLE arteriogram. S: No nausea/vomiting, chest pain, SOB, pain well controlled, offers no complaints. O: Temp: [36.2 ??C (97.2 ??F)-36.8 ??C (98.2 ??F)] Heart Rate: [72-92] Resp: [8-18] BP: (89-129)/(53-79) SpO2: [90 %-95 %] Heart Rate from SpO2: [72 bpm-91 bpm] I/O last 3 completed shifts: In: 650 [P.O.:650] Out: 1350 [Urine:1350] I/O this shift: In: 931.7 [I.V.:931.7] Out: 300 [Urine:300] Physical Exam General: NAD, resting comfortably HEENT: PERRL CVS: Regular rate assessed peripherally Pulm: No increased WOB on RA Abd: soft, non tender, non distended Ext: RLE: DP/PT signals present LLE: groin puncture site c/d/i. Soft. No evidence of hematoma. DP/PT signals present Neuro: grossly intact, nonfocal, moving all extremities. AP Bertin Lorenzo is a 57 y.o. male status post RLE arteriogram currently in stable conditionand recovering well - pain well controlled - hemodynamically stable - flat x4hrs post-op - resume carb control diet Meliton Rodriguez MD Vascular Surgery [id number] 07/19/18 Meliton Rodriguez MD Sandip Mccarty MD - 07/19/2018 12:14 PM EDT Vascular Surgery Pre-Angiography H&P Chief Complaint: RLE rest pain Planned Procedure: RLE arteriogram with intervention as indicated HPI: Bertin Lorenzo??is a 57 y.o.??male??with history of DM, CAD s/p CABG 2016, MELONIE not on nightly CPAP, diverticulitis s/p partial bowel resection??who has been followed in the vascular surgeryclinic for aortoiliac occlusive disease. ??He was recently admitted for rest pain and heel wound 06/27/18 - 06/30/18 where CTA demonstrated occlusion of the right external iliac artery and severe QUALITY REVIEWER stenosis. ??For this he underwent right iliofemoral endarterectomy with patch graft and stenting. He presents to clinic today for scheduled follow-up. Unfortunately, he continues to have pain in his right heel and has failed to progress in healing the right heel fissure. He denies f/c/cp/sob/abd pain/n/v. He has been minimally ambulatory since discharge from the hospital approximately two weeks ago. He hasmanaged his pain with around the clock oxycodone every 4- 6hrs. He notes no significant changes in health since discharge. He continues to take a daily aspirin and statin. Past Vascular History 1. Right iliofemoral endarterectomy with patch angioplasty 2. Right external iliac artery stent placement and balloon angioplasty (Epic [id number] proximal, Epic 9x80 distal, [place] angioplasty balloon [id number]) Past Medical History: Patient Active Problem List Diagnosis Code ??? Diabetes mellitus, type 2 E11.9 ??? Hyperlipidemia E78.5 ??? Osteoarthritis M19.90 ??? Non ST elevation [place] due to severe 3vD-- awaiting for CABG Tuesday I21.4 ??? Atherosclerosis of [place] artery of right lower extremity with intermittent claudication I70.211 ??? Hypertension I10 ??? Financial difficulties--- barrier to medication use Z59.8 ??? Coronary artery disease I25.10 ??? S/P CABG (coronary artery bypass graft) Z95.1 ??? Leg pain, bilateral M79.604, M79.605 ??? Aortoiliac occlusive disease I74.09 ??? Critical lower limb ischemia I99.8 PSHx: Past Surgical History: Procedure Laterality Date ??? PRO CABG, ARTERIAL, TWO N/A 07/12/2016 @CABG, USING 2 CORONARY ARTERIAL GRAFTS (WRVU 39.88) performed by Valentino Arredondo MD at [facility] MAIN OR ??? PRO CABG, ARTERY-VEIN, TWO N/A 07/12/2016 @CABG, TWO VENOUS GRAFTS & ARTERIAL GRAFT (WRVU 7.93) performed by Valentino Arredondo MD at [facility] MAIN OR ??? PRO ENDOSCOPY W/VIDEO-ASST VEIN HARVEST, CABG Right 07/12/2016 ENDOSCOPIC HARVEST VEIN(S) FOR CABG (WRVU 0.31) performed by Valentino Arredondo MD at [facility] MAIN OR ? ? PRO REVSC OPEN/PERCUTANEOUS ILIAC ART W STNT PLMT&ANGIO WENDI VSL UNILAT Right 06/28/2018 REVSC OPN\PRQ ILIAC ART W\STNT PLMT & ANGIOP SAME VSL (WRVU 10) performed by Jhonny Oneal MD at [facility] MAIN OR ??? PRO THROMBOENDARTECTMY ILIOFEMORAL Right 06/28/2018 @ENDARTERECTOMY, ILIOFEMORAL W OR W/O PATCH GRAFT (WRVU 19.86) performed by Jhonny Oneal MD at [facility] OR Meds: No current facility-administered medications on file prior [...] gauge x 5/16 Syringe 1 Box by [facility].(Non-Drug; Combo Route) route 2 times daily. 100 Syringe 3 ??? buPROPion (WELLBUTRIN SR OR ZYBAN) 150 mg Tablet Sustained Release Take 150 mg by mouth 2 times daily. ??? gabapentin (NEURONTIN) 400 mg Capsule Take 400 mg by mouth 3 times daily. ??? glipiZIDE (GLUCOTROL) 10 mg Tablet Take 20 mg by mouth daily. ??? omeprazole (PRILOSEC) 40 mg Capsule, Delayed Release(E.C.) Take 40 mg by mouth daily. ??? FLUoxetine (PROZAC) 40 mg Capsule Take 80 mg by mouth daily. Allergies: Effexor [venlafaxine] Social Hx: Social History Socioeconomic History ??? Marital status: Single Spouse name: Not on file ??? Number of children: Not on file ??? Years of education: Not on file ??? Highest education level: Not on file Occupational History ??? Not on file Social Needs ??? Financial resource strain: Not on file ??? Food insecurity: Worry: Not on file Inability: Not on file ??? Transportation needs: Medical: Not on file Non-medical: Not on file Tobacco Use ??? Smoking status: Former Smoker Packs/day: 1.00 Years: 40.00 Pack years: 40.00 ??? Smokeless tobacco: Never Used Substance and Sexual Activity ??? Alcohol use: Yes Alcohol/week: 2.4 oz Types: 4 Cans of beer per week ??? Drug use: Yes Frequency: 3.0 times per week Types: Marijuana ??? Sexual activity: Yes Partners: Female control/protection: Condom Lifestyle ??? Physical activity: Days per week: Not on file Minutes per session: Not on file ??? Stress: Not on file Relationships ??? Social connections: Talks on phone: Not on file Gets together: Not on file Attends zoroastrian service: Not on file Active member of club or organization: Not on file Attends meetings of clubs or organizations: Not on file Relationship status: Not on file ??? Intimate partner violence: Fear of current or ex partner: Not on file Emotionally abused: Not on file Physically abused: Not on file Forced sexual activity: Not on file Other Topics Concern ??? Not on file Social History Narrative ??? Not on file Family hx: No family history on file. ROS: As per HPI. Remainder of ROS is otherwise negative. Physical Exam: General: resting in bed, NAD HEENT: NC/AT Cardiac: regular rate Lungs: nonlabored resp Abd: soft, NT Ext: RLE: fissure at R heel, +palpable femoral pulse, +DP/PT doppler signals LLE: +palpable femoral pulse, +palpable DP, +PT doppler signal Neuro: nonfocal Laboratory: Creatinine: Lab Results Component Value Date CREATININE 0.72 (L) 07/19/2018 Studies: ABIs (06/30/18) Findings: ?? Right ?Pressure (mm Hg) ?? REYMUNDO ??Waveform ? TBI ?? Brachial Artery ?127 ? Dorsalis Pedis (Ankle) Artery ?34 ?0.25 ??Monophasic ? Posterior Tibial (Ankle) Artery ??45 ?0.33 ??Monophasic ? Great Toe ?15 ?0.11 ? Left ? Pressure (mm Hg) ?? REYMUNDO ??Waveform ?? TBI ?? Brachial Artery ?135 ? Dorsalis Pedis (Ankle) Artery ?87 ?0.64 ??Biphasic ? Posterior Tibial (Ankle) Artery ??92 ? 0.68 ??Biphasic ? Great Toe ?74 ?0.55 ? Interpretation: ?? RIGHT: Severe lower extremity arterial occlusive disease. Significant improvement in the posterior tibial artery with no change in the dorsalis pedis artery or TBI when compared to previous exam performed on 06/27/2018. ?? LEFT: Moderate lower extremity arterial occlusive disease. No identifiable change when compared to the previous exam performed on 06/27/2018. Assessment/Plan: Mr Lorenzo is a 57M who is s/p R ileofemoral endarterectomy and external iliac artery stenting) who presents with persistent RLE rest pain and heel ulcer. Plan for bilteral arteriogram with intervention at indicated via L femoral access. ASA: 3 Mallampati: 3 Cr: 0.72 Jie Buckner RN - 07/19/2018 12:14 PM EDT [facility] NUR[facility] DATABASE Name: BERTIN LORENZO Date of : 1960 AGE: 57 y.o. [address]: [address] [place] [id number] (home) Mobile: Telephone Information: Referring Provider: No ref. provider found REASON FOR VISIT: Order Questions Answers Where will study be performed? [facility] [120] Laterality Right Reason for exam and clinical history: PVD Exam/Procedure requested: RLE angio Is the patient on anticoagulant / anitplatelet therapy ? Aspirin,Other: see comments field Allergies Allergen Reactions ??? Effexor [Venlafaxine] Increased blood pressure Pertinent PMH: Patient Active Problem List Diagnosis Code ??? Diabetes mellitus, type 2 E11.9 ??? Hyperlipidemia E78.5 ??? Osteoarthritis M19.90 ??? Non ST elevation [place] due to severe 3vD-- awaiting for CABG Tuesday I21.4 ??? Atherosclerosis of [place] artery of right lower extremity with intermittent claudication I70.211 ??? Hypertension I10 ??? Financial difficulties--- barrier to medication use Z59.8 ??? Coronary artery disease I25.10 ??? S/P CABG (coronary artery bypass graft) Z95.1 ??? Leg pain, bilateral M79.604, M79.605 ??? Aortoiliac occlusive disease I74.09 ??? Critical lower limb ischemia I99.8 Pertinent PSH: Past Surgical History: Procedure Laterality Date ??? PRO CABG, ARTERIAL, TWO N/A 07/12/2016 @CABG, USING 2 CORONARY ARTERIAL GRAFTS (WRVU 39.88) performed by Valentino Arredondo MD at [facility] MAIN OR ??? PRO CABG, ARTERY-VEIN, TWO N/A 07/12/2016 @CABG, TWO VENOUS GRAFTS & ARTERIAL GRAFT (WRVU 7.93) performed by Valentino Arredondo MD at [facility] MAIN OR ??? PRO ENDOSCOPY W/VIDEO-ASST VEIN HARVEST, CABG Right 07/12/2016 ENDOSCOPIC HARVEST VEIN(S) FOR CABG (WRVU 0.31) performed by Valentino Arredondo MD at [facility] MAIN OR ? ? PRO REVSC OPEN/PERCUTANEOUS ILIAC ART W STNT PLMT&ANGIO WENDI VSL UNILAT Right 06/28/2018 REVSC OPN\PRQ ILIAC ART W\STNT PLMT & ANGIOP SAME VSL (WRVU 10) performed by Jhonny Oneal MD at [facility] MAIN OR ??? PRO THROMBOENDARTECTMY ILIOFEMORAL Right 06/28/2018 @ENDARTERECTOMY, ILIOFEMORAL W OR W/O PATCH GRAFT (WRVU 19.86) performed by Jhonny Oneal MD at [facility] MAIN OR Date/Procedure Med's given/comments 07/19/18 Bilateral lower leg angiogram - dx only Fentanyl 125 mcg IV, Versed 2.5 mg IV, Heparin 8000 units IV, Protamine 30 mg IV. Pt became disinhibited with sedation and couldn't stop moving ; if pt needs to remain still ? anes .int Laboratory Results: Lab Results Component Value Date INR 1.0 06/27/2018 Lab Results Component Value Date CREATININE 0.82 06/30/2018 Lab Results Component Value Date K 4.1 06/30/2018 Lab Results Component Value Date PLATELET 174 06/30/2018 Medications: Prior to Admission medications Medication Sig Start Date End Date Taking? Authorizing Provider oxyCODONE (ROXICODONE) 10 mg Tablet Take 1 tablet by mouth every 4 hours. 07/14/18 Safia Allen PA metFORMIN (GLUCOPHAGE) 500 mg Tablet Take 1 tablet by mouth 2 times daily (with meals). 07/01/18 Jhonny Oneal MD oxyCODONE (ROXICODONE) 10 mg Tablet Take 1 tablet by mouth every 8 hours as needed (Pain). 06/30/18 Yumiko Allen PA isosorbide mononitrate (IMDUR) 60 mg Tablet Sustained Release 24 hr take 1 tablet by mouth once daily 08/04/16 PROVIDER, HISTORICAL furosemide (LASIX) 20 mg Tablet take 1 tablet by mouth once daily 08/09/16 PROVIDER, HISTORICAL lisinopril (PRINIVIL;ZESTRIL) 5 mg Tablet Take 1 tablet by mouth daily. 08/05/16 Charlie Jiménez MD acetaminophen (TYLENOL) 500 mg Tablet Take 2 tablets by mouth every 6 hours as needed for Pain. 07/16/16 Jasmine Boston APRN aspirin 81 mg Tablet, Chewable Take 81 mg by mouth daily. 07/16/16 Jasmine Boston APRN atorvastatin (LIPITOR) 80 mg Tablet Take 1 tablet by mouth every evening. 07/16/16 Jasmine Boston APRN meTOPROLOL tartrate (LOPRESSOR) 100 mg Tablet Take 1 tablet by mouth 2 times daily. 07/16/16 Jasmine Boston APRN Insulin Syringe-Needle U-100 1 mL 31 gauge x 5/16 Syringe 1 Box by [facility].(Non- Drug; Combo Route) route 2 times daily. 07/16/16 Jasmine Boston APRN buPROPion (WELLBUTRIN SR OR ZYBAN) 150 mg Tablet Sustained Release Take 150 mg by mouth 2 times daily. PROVIDER, HISTORICAL gabapentin (NEURONTIN) 400 mg Capsule Take 400 mg by mouth 3 times daily. PROVIDER, HISTORICAL glipiZIDE (GLUCOTROL) 10 mg Tablet Take 20 mg by mouth daily. PROVIDER, HISTORICAL omeprazole (PRILOSEC) 40 mg Capsule, Delayed Release(E.C.) Take 40 mg by mouth daily. PROVIDER, HISTORICAL FLUoxetine (PROZAC) 40 mg Capsule Take 80 mg by mouth daily. PROVIDER, HISTORICAL Jie Buckner RN - 07/19/2018 12:13 PM EDT To procedure room 1 via stretcher. Onto table supine. All monitors, O2, safety strap in place. Med'sper protocol. Angio only post procedure: Time sheath removed: 1407 Side: Left groin Closure device used: Mynx Hematoma present? no Site release time: 1420 Anticipated up time: 1620 Meliton Rodriguez MD - 07/19/2018 10:04 AM EDT Vascular Surgery Progress Note Patient Name: Bertin Lorenzo Patient Age: 57 y.o. Birthdate: 1960 Admit date: 07/18/2018 Attending Physician: Jhonny Oneal MD PATIENT ID: Bertin Lorenzo is a 57 y.o. male Bertin Lorenzo??is a 57 y.o.??male??with history of DM, CAD s/p CABG 2016, MELONIE not on nightly CPAP, diverticulitis s/p partial bowel resection??who has been followed in the vascular surgery clinic for aortoiliac occlusive disease. ??He was recently admitted for rest pain and heel wound 06/27/18 - 06/30/18 where CTA demonstrated occlusion of the right external iliac artery and severe QUALITY REVIEWER stenosis. ??For this he underwent right iliofemral endarterectomy with patch graft and stenting. He presents to clinic today for scheduled follow-up. Unfortunately, he continues to have pain in his right heel and has failed to progress in heeling the right heel fissure. Sandra f/c/cp/sob/abd pain/n/v. He has been minimally ambulatory since discharge from the hospital approximately two weeks ago. He has managed his pain with around the clock oxycodone every 4-6hrs. He notes no significant changes in health since discharge. He continues to take a daily ASA and statin. Operations This Hospitalization: none Subjective: ROSE MARY Offers no complaints this am Has been NPO since OK in anticipation of OR today Objective: VITALS: T Temp: 36.5 ??C (97.7 ??F) Temp: [36.5 ??C (97.7 ??F)-36.9 ??C (98.4 ??F)] HR Heart Rate: 73 Heart Rate: [73-79] BP BP: 129/68 BP: (114-129)/(59-70) RR Resp: 16 Resp: [16-20] SpO2 SpO2: 95 % SpO2: [94 %-96 %] 24HR INS & OUTS: 07/18 0701 - 07/19 0700 In: 650 [P.O.:650] Out: 1350 [Urine:1350] PHYSICAL EXAM: General: NAD, resting comfortably HEENT: NC/AT, PERRL CVS: Regular rate, no murmurs rubs or gallops Pulm: Clear bilaterally Abd: soft, non tender, non distended, +BS Ext: RLE: Right groin incision with superficial wound breakdown at superior aspect Fissure at heel, slight maceration at wound edges SILT throughout foot and calf Motor intack to EHL/FHL/APF/ADF Foot warm, no palpable DP/PT pulses, AT doppler signal Neuro: Grossly nonfocal, moving all extremities. LABORATORY: Recent Labs 07/19/18 0725 07/18/18 1545 WBC 9.7* 10.9* HGB 12.3* 12.7* HCT 39.1* 39.8* PLATELET 223 266 Recent Labs 07/19/18 0725 07/18/18 1545 NA 140 139 K 4.1 4.6 CL 102 97* CO2 24 23 BUN 26* 35* CREATININE 0.72* 1.19 GLUCOSE 114 225* No results for input(s): AST, ALT, ALKPHOS, BILITOT, BILIDIR in the last 168 hours. Recent Labs 07/19/18 0725 07/18/18 1545 CALCIUM 8.9 9.6 No results for input(s): PT, PTT, INR in the last 168 hours. No results for input(s): PHART, HGR1HOB, PO2ART, DTW3IHZ in the last 168 hours. ASSESSMENT/PLAN: Bertin Lorenzo is a 57 y.o. male who is s/p R ileofemoral endarterectomy and external iliac artery stenting) who presents with persistent RLE rest pain and heel ulcer. Plan for RLE arteriogram with intervention at indicated. -has been NPO since OK in anticipation of procedure today -proceed to IR Meliton Rodriguez MD Vascular Surgery [id number] 07/19/18 Vidya Miner - 07/18/2018 4:25 PM EDT Pt arrived to unit approximately 1500. A/O x4. VSS. Oriented to room and call le. Medications administered. Pain is controlled. Groin site MD odette aware. Plan reviewed with pt for IR tomorrow. Will continue to monitor. Elissa Hernandez RN - 07/18/2018 3:13 PM EDT ANGIO NURSING DATABASE Name: BERTIN LORENZO Date of : 1960 AGE: 57 y.o. [address]: [address] [place] [address] (home) Mobile: Telephone Information: Referring Provider: No ref. provider found REASON FOR VISIT: Question Answer Comment Where will study be performed? [facility] Laterality Right Reason for exam and clinical history: PVD Exam/Procedure requested: RLE angio Is the patient on anticoagulant / anitplatelet therapy ? Aspirin ASA-continue; Metformin-stop today Other: see comments field Allergies Allergen Reactions ??? Effexor [Venlafaxine] Increased blood pressure Pertinent PMH: Patient Active Problem List Diagnosis Code ??? Diabetes mellitus, type 2 E11.9 ??? Hyperlipidemia E78.5 ??? Osteoarthritis M19.90 ??? Non ST elevation [place] due to severe 3vD-- awaiting for CABG Tuesday I21.4 ??? Atherosclerosis of [place] artery of right lower extremity with intermittent claudication I70.211 ??? Hypertension I10 ??? Financial difficulties--- barrier to medication use Z59.8 ??? Coronary artery disease I25.10 ??? S/P CABG (coronary artery bypass graft) Z95.1 ??? Leg pain, bilateral M79.604, M79.605 ??? Aortoiliac occlusive disease I74.09 ??? Critical lower limb ischemia I99.8 Pertinent PSH: Past Surgical History: Procedure Laterality Date ??? PRO CABG, ARTERIAL, TWO N/A 07/12/2016 @CABG, USING 2 CORONARY ARTERIAL GRAFTS (WRVU 39.88) performed by Valentino Arredondo MD at [facility] MAIN OR ??? PRO CABG, ARTERY-VEIN, TWO N/A 07/12/2016 @CABG, TWO VENOUS GRAFTS & ARTERIAL GRAFT (WRVU 7.93) performed by Valentino Arredondo MD at [facility] MAIN OR ??? PRO ENDOSCOPY W/VIDEO-ASST VEIN HARVEST, CABG Right 07/12/2016 ENDOSCOPIC HARVEST VEIN(S) FOR CABG (WRVU 0.31) performed by Valentino Arredondo MD at [facility] MAIN OR ? ? PRO REVSC OPEN/PERCUTANEOUS ILIAC ART W STNT PLMT&ANGIO WENDI VSL UNILAT Right 06/28/2018 REVSC OPN\PRQ ILIAC ART W\STNT PLMT & ANGIOP SAME VSL (WRVU 10) performed by Jhonny Oneal MD at [facility] MAIN OR ??? PRO THROMBOENDARTECTMY ILIOFEMORAL Right 06/28/2018 @ENDARTERECTOMY, ILIOFEMORAL W OR W/O PATCH GRAFT (WRVU 19.86) performed by Jhonny Oneal MD at [facility] MAIN OR Date/Procedure Meds given/comments Laboratory Results: Lab Results Component Value Date INR 1.0 06/27/2018 Lab Results Component Value Date CREATININE 0.82 06/30/2018 Lab Results Component Value Date K 4.1 06/30/2018 Lab Results Component Value Date PLATELET 174 06/30/2018 Medications: Prior to Admission medications Medication Sig Start Date End Date Taking? Authorizing Provider oxyCODONE (ROXICODONE) 10 mg Tablet Take 1 tablet by mouth every 4 hours. 07/14/18 Safia Allen PA metFORMIN (GLUCOPHAGE) 500 mg Tablet Take 1 tablet by mouth 2 times daily (with meals). 07/01/18 Jhonny Oneal MD oxyCODONE (ROXICODONE) 10 mg Tablet Take 1 tablet by mouth every 8 hours as needed (Pain). 06/30/18 Yumiko Allen PA isosorbide mononitrate (IMDUR) 60 mg Tablet Sustained Release 24 hr take 1 tablet by mouth once daily 08/04/16 PROVIDER, HISTORICAL furosemide (LASIX) 20 mg Tablet take 1 tablet by mouth once daily 08/09/16 PROVIDER, HISTORICAL lisinopril (PRINIVIL;ZESTRIL) 5 mg Tablet Take 1 tablet by mouth daily. 08/05/16 Charlie Jiménez MD acetaminophen (TYLENOL) 500 mg Tablet Take 2 tablets by mouth every 6 hours as needed for Pain. 07/16/16 Jasmine Boston APRN aspirin 81 mg Tablet, Chewable Take 81 mg by mouth daily. 07/16/16 Jasmine Boston APRN atorvastatin (LIPITOR) 80 mg Tablet Take 1 tablet by mouth every evening. 07/16/16 DarvinJasmine cervantes APRN meTOPROLOL tartrate (LOPRESSOR) 100 mg Tablet Take 1 tablet by mouth 2 times daily. 07/16/16 HolmanJasmine cervantes APRN Insulin Syringe-Needle U-100 1 mL 31 gauge x 5/16 Syringe 1 Box by [facility].(Non- Drug; Combo Route) route 2 times daily. 07/16/16 Jasmine Boston APRN buPROPion (WELLBUTRIN SR OR ZYBAN) 150 mg Tablet Sustained Release Take 150 mg by mouth 2 times daily. PROVIDER, HISTORICAL gabapentin (NEURONTIN) 400 mg Capsule Take 400 mg by mouth 3 times daily. PROVIDER, HISTORICAL glipiZIDE (GLUCOTROL) 10 mg Tablet Take 20 mg by mouth daily. PROVIDER, HISTORICAL omeprazole (PRILOSEC) 40 mg Capsule, Delayed Release(E.C.) Take 40 mg by mouth daily. PROVIDER, HISTORICAL FLUoxetine (PROZAC) 40 mg Capsule Take 80 mg by mouth daily. PROVIDER, HISTORICAL documented in this encounter H&P Notes Meliton Rodriguez MD - 07/18/2018 11:47 AM EDT Vascular Surgery History and Physical HPI: Bertin Lorenzo is a 57 y.o. male with history of DM, CAD s/p CABG 2016, MELONIE not on nightly CPAP, diverticulitis s/p partial bowel resection??who has been followed in the vascular surgery clinic for aortoiliac occlusive disease. He was recently admitted for rest pain and heel wound 06/27/18 -06/30/18 where CTA demonstrated occlusion of the right external iliac artery and severe QUALITY REVIEWER stenosis. For this he underwent right iliofemral endarterectomy with patch graft and stenting. He presents to clinic today for scheduled follow-up. Unfortunately, he continues to have pain in his right heel and has failed to progress in heeling the right heel fissure. He denies f/c/cp/sob/abd pain/n/v. He has been minimally ambulatory since discharge from the hospital approximately two weeks ago. He has managedhis pain with around the clock oxycodone every 4- 6hrs. He notes no significant changes in health since discharge. Review of Systems: A full review encompassing at least 10 organ systems including general, neuro, pulm, cardiac, GI, , MSK, Endo, and psych was negative other than that listed in the HPI. Past Medical History: No past medical history on file. CAD s/p CABG 2017 DM HTN HLD MELONIE Diverticulitis s/p partial bowel resection CLI Past Surgical History: Past Surgical History: Procedure Laterality Date ??? PRO CABG, ARTERIAL, TWO N/A 07/12/2016 @CABG, USING 2 CORONARY ARTERIAL GRAFTS (WRVU 39.88) performed by Valentino Arredondo MD at [facility] MAIN OR ??? PRO CABG, ARTERY-VEIN, TWO N/A 07/12/2016 @CABG, TWO VENOUS GRAFTS & ARTERIAL GRAFT (WRVU 7.93) performed by Valentino Arredondo MD at [facility] MAIN OR ??? PRO ENDOSCOPY W/VIDEO-ASST VEIN HARVEST, CABG Right 07/12/2016 ENDOSCOPIC HARVEST VEIN(S) FOR CABG (WRVU 0.31) performed by Valentino Arredondo MD at [facility] MAIN OR ? ? PRO REVSC OPEN/PERCUTANEOUS ILIAC ART W STNT PLMT&ANGIO WENDI VSL UNILAT Right 06/28/2018 REVSC OPN\PRQ ILIAC ART W\STNT PLMT & ANGIOP SAME VSL (WRVU 10) performed by Jhonny Oneal MD at [facility] MAIN OR ??? PRO THROMBOENDARTECTMY ILIOFEMORAL Right 06/28/2018 @ENDARTERECTOMY, ILIOFEMORAL W OR W/O PATCH GRAFT (WRVU 19.86) performed by Jhonny Oneal MD at [facility] MAIN OR Functional Status/Social Hx: Lives at home Current smoker Occasional alcohol Denies illicit drugs Family Hx: Negative for Thrombosis, Bleeding Disorders Medications: No current facility-administered medications on file [...] gauge x 5/16 Syringe 1 Box by [facility].(Non-Drug; Combo Route) route 2 times daily. 100 Syringe 3 ??? buPROPion (WELLBUTRIN SR OR ZYBAN) 150 mg Tablet Sustained Release Take 150 mg by mouth 2 times daily. ??? gabapentin (NEURONTIN) 400 mg Capsule Take 400 mg by mouth 3 times daily. ??? glipiZIDE (GLUCOTROL) 10 mg Tablet Take 20 mg by mouth daily. ??? omeprazole (PRILOSEC) 40 mg Capsule, Delayed Release(E.C.) Take 40 mg by mouth daily. ??? FLUoxetine (PROZAC) 40 mg Capsule Take 80 mg by mouth daily. Allergies: Effexor [venlafaxine] Physical Exam: Temp: -- Heart Rate: [95] Resp: [18] BP: (120)/(57) SpO2: -- Heart Rate from SpO2: -- General: NAD, resting comfortably HEENT: NC/AT, PERRL CVS: Regular rate, no murmurs rubs or gallops Pulm: Clear bilaterally Abd: soft, non tender, non distended, +BS Ext: RLE: Fissure at heel, slight maceration at wound edges SILT throughout foot and calf Motor intack to EHL/FHL/APF/ADF Foot warm, no palpable DP/PT pulses, AT doppler signal Neuro: Grossly nonfocal, moving all extremities. Labs: No results for input(s): WBC, HGB, HCT, PLATELET in the last 72 hours. No results for input(s): NA, K, CL, CO2, BUN, CREATININE, PHOS, CALCIUM in the last 72 hours. Assessment and Plan: 57M with the above noted pmh, recently s/p R fem endart/iliac stent for CLI (06/27/18). Plan to admit to vascular surgery for RLE angio and intervention as indicated tomorrow in IR. -admit to vascular surgery -dry dressing to right groin and heel wounds -offload R heel -con't asa and statin -hold metformin -check HbA1C -smoking cessation counseling -RLE angio/intervention tomorrow in IR Meliton Rodriguez MD Vascular Surgery [id number] 07/18/18 documented in this encounter Procedure Notes Sandip Mccarty MD - 07/19/2018 2:59 PM EDT Vascular Surgery Interventional Procedure Note Date of procedure: 07/19/18 Pre-Procedure Diagnosis: RLE critical limb ischemia (rest pain, nonhealing wound) Post-Procedure Diagnosis: RLE critical limb ischemia Procedure: - Left femoral arterial access with fluoroscopic and ultrasound guidance - Aortogram - second order selective catheterization of right external iliac artery - RLE arteriogram - Mynx closure Surgeon(s): MD Jhonny Alexander MD Intra-procedural Medications: Versed dose: 2.5 mg Fentanyl dose: 125 mcg Local anesthetic: 5 cc 1% lidocaine Heparin: Yes 8000 Units Protamine: Yes 30 mg Antibiotics: ancef 2g Fluoro Time: 14.4 min Contrast: 76 mL Sheath Size: 6 Fr Indications for the procedure: Mr Lorenzo is a 57M who is s/p R ileofemoral endarterectomy and external iliac artery stenting) who presents with persistent RLE rest pain and heel ulcer. Plan for bilteral arteriogram with intervention at indicated via L femoral access. Findings: - Aortogram demonstrated: infrarenal aorta widely patent, RLE HUMA/EIA stents widely patent, RLE internal iliac artery patent, LLE with severe stenosis of distal HUMA/proximal EIA, L IIA patent but proximal aspect not well visualized - RLE arteriogram demonstrated: QUALITY REVIEWER widely patent, profunda widely patent, SFA with flush occlusion at origin, SFA reconstitutes at mid-femur from profunda collaterals, popliteal artery widely patent, AT widely patent with runoff to distal calf, TP trunk patent, PT patent with runoff to distal calf, peroneal patent proximally, then not visualized (distal calf and foot not well imaged due to issue with dye injection) Procedure in detail: The patient was properly identified in the pre-operative holding area. After discussions of the risks and benefits, operative consent was obtained. The patient was brought to the angiography suite andplaced on the angio table. The patient was prepped and draped in the usual sterile fashion. A time-out was performed by the attending surgeon confirming the patient, the intended procedure, the side ofintervention and equipment needed. Split doses of fentanyl and versed were administered for conscious sedation by the Interventional Radiology nurse during continuous monitoring of pulse, blood pressure and oxygen saturation. After injection of local anesthetic, percutaneous access was obtained via the Left femoral artery under fluoroscopic and ultrasound guidance using a micro puncture technique. A cope wire was inserted and upsized to a 5 Swiss sheath over a stiff glidewire. A 5F Omni flush catheter was then advanced into the infrarenal aorta over the wire. Diagnostic aortography was performed with the above findings. The stiff glidewire was then re-inserted and used to select the right external iliac artery. Catheter exchange for the NTA catheter was performed and a RLE arteriogram was obtained with the above findings. The NTA was removed and sheath exchange was performed for a 6Fr 45cm destination sheath. The stiff glidewire was used with a combination of catheters including an NTA and rubicon cather in attempts to cross the SFA occlusion, but these were unsuccessful. Sheath exchange was performed for a short 6Fr sheath over a stiff glidewire. Mynx closure was performed. Manual pressure was then held for 10 minutes until adequate hemostasis was obtained. The wound was dressed with a sterile gauze and tegaderm. The patient was taken to the recovery room having suffered no apparent untoward event. Dr. Oneal was present for the entire procedure. Plan: -flat for 2 hours -further workup / plan to be determined Sandip Mccarty MD 07/19/2018 3:00 PM Associated attestation - Jhonny Oneal MD - 07/21/2018 10:23 AM EDT I was the attending physician supervising the resident/fellow in the above care and I was present with the resident/fellow for the entire procedure. ? I was present during the intraservice time as documented by the sedation RN. Jhonny Oneal MD documented in this encounter Miscellaneous Notes Plan of Care - Yoav Shultz RN - 07/19/2018 3:27 PM EDT Problem: Patient Care Overview Goal: Plan of Care Review Outcome: Ongoing (Interventions Implemented as Appropriate) 07/19/18 0809 07/19/18 1523 Plan of Care Review Progress -- progress toward functional goals as expected Coping/Psychosocial Plan Of Care Reviewed With patient -- OUTCOME EVALUATION NOTE: OUTCOME SUMMARY: Mukesh had a good day overall. Pain managed with current regimen. Was NPO starting at midnight for angio procedure, went off unit shortly before 1200 to angio. To return shortly, this RN will resume care of patient on return. 1543 - Pt returned to floor. VSS. L groin site covered with gauze and tegaderm. Angio diagnostic only. Pt diet resumed for today, to be NPO at midnight. PLAN MOVING FORWARD: Flat bedrest until 1620. Pain management. Monitor groin access site. INDIVIDUALIZED FALL PREVENTION INTERVENTIONS: Patient-specific fall risk factors per assessment: [current deficits]: Pain, narcotics, RLE increased pain with activity, uses cane for ambulation Assistance [level of assistance required for transfers and ambulation]: 1A with cane Supervision [direct monitoring required during toileting and ADLs]: Standby Surveillance [continuous indirect monitoring]: Masimo, purposeful rounding, call le in reach. Patient-specific fall prevention interventions for sensory deficits provided, if applicable: [X] Yes CPG GOAL OUTCOME EVALUATION: Goal: Fall Prevention-Safe Patient Handling Outcome: Ongoing (Interventions Implemented as Appropriate) 07/19/18 0809 Jm Fall Risk History of Falling 0 Secondary Diagnosis 15 Ambulatory Aids 15 Intravenous Therapy/Heparin/Saline Lock 20 Gait/Transferring 10 Mental Status 0 Score 60 OTHER Jm Fall Risk High Restraint Interventions Safety Promotion/Fall Prevention activity supervised;fall prevention program maintained;muscle strengthening facilitated;nonskid shoes/slippers when out of bed;safety round/check completed Positioning Body Position independent Activity Activity Type activity adjusted per tolerance;activity encouraged Activity Assistance Provided assistance, stand-by Assistive Device Utilized cane Goal: Infection Control Outcome: Ongoing (Interventions Implemented as Appropriate) 07/19/18 0809 Safety Interventions Isolation Precautions standard precautions maintained Infection Prevention environmental surveillance performed;rest/sleep promoted Coping Strategies Supportive Measures active listening utilized;self-care encouraged Goal: Interdisciplinary Rounds/Family Conf Outcome: Ongoing (Interventions Implemented as Appropriate) 07/19/18 1523 Interdisciplinary Rounds/Family Conf Participants nursing;patient;physician Consult Note - Anastacio Son RN - 07/19/2018 10:44 AM EDT TOBACCO DEPENDENCE TREATMENT NOTE 07/19/2018 Name: Bertin Lorenzo Date of : 1960 Reason for visit: Bertin Lorenzo is a current everyday smoker and was referred for smoking cessation counseling. The following information has been reviewed with the patient: Social History: Marital status: Single ETOH: Beer (Occasional) Drug use: Marijuana (Occasional) Caffeine: Coffee 2 cups/daily Pets: dog Rosie Smoking history: Type of tobacco used: ( ) Smokeless tobacco ( ) e-cigarette (X)Cigarettes Brand currently smoking: Pall [employer] (Red) Current amount: 1 ppd Cost per pack: $9.00 Age initiated: 15 Years smoked: 42 Most smoked: 1.5 ppd Previous quit attempts and methods: Nicotine patches (issues with them sticking), Zyban (tobacco-free for about a month), Chantix (I just remember it not working very well) Most recent quit attempt: About 3 weeks ago. My girlfriend and I both decided we'd quit cold-turkey. We both lasted about a week. I got stuck in my driveway and I was so frustrated, the first thing I did was grab a smoke. Are there other smokers in the home: No. Girlfriend recently moved out. Are there children in the home: No What will be different this time: I'm a slow learner. Sometimes it takes something really drastic to happen before I finally open my eyes. This is one of those times. I know I need to quit. Reasons for quitting: I got a sore on my heal that won't close and I can't walk for more than a quarter of a mile before I have to stop and rest. When I go grocery shopping, I have to make two trips in the store because I need to go back to my car to rest half way through. Now is the time. Concerns about quitting: Trigger management, changing daily routines. Concerns about weight gain: No Triggers for smoking: Morning coffee, driving, stressful situations Ready to set a quit date: 07/19/2018 Importance/Confidence Scale (How important is it for him to quit/How confident patient is that he can quit on scale of 0(Not at all important)-10(Highest importantance): 01/28 What would help increase confidence: I wasn't aware of the quit line program. That sounds like a pretty good thing. I think that will really help me. NICOTINE DEPENDENCE 0 Points 1Points 2 Points 3 Points Score 1.How soon after you wake do you smoke your first cigarette? After 60 minutes 31-60 minutes minutes 6-30 minutes Within 5 minutes 3 2. Do you find it difficult to refrain from smoking in places where it is forbidden ex [facility] No Yes0 3. Which cigarette would [...] High 8-10 Very high Stage of Change: Contemplative Assessment/Plan: Bertin Lorenzo has a Fagerstrom Score of 7, indicating a high dependence on Nicotine. I reviewed the physiology of addiction as well as apparent health risks specific for him. Iadvised him that quitting smoking is one of the best things he can do for his health now and in the future. I discussed the options for treatment including NRT, Zyban and Chantix. I reviewed possible side effects of therapy. I stressed that medication alone is not optimum but used in conjunction with behavioral counseling will add to success for cessation. The patient decided that the best course of action for him would be NRT. He is currently wearing the 21 mg nicotine patch and denies cravings to smoke. I reviewed with him the resources available through the [place] quit line. He has consented to a referralbeing sent. He was given a box of 21 mg patches and 4 mg lozenges to bridge him until he receives products from the quit line, typically, 7-10 days. Instructions for NRT, including taper, will be included in AVS. I reviewed several tips for helping with quitting including the 4D's, using straws cut the length ofcigarettes, cinnamon sticks, flavored toothpicks, sugar free candy, etc. The patient has also been provided with a [facility] Smoking Cessation packet and the contents have been reviewed with him. I reviewed with him Helping you decide about Lung Cancer Screening handout and encouraged him to follow-up with his PCP if he should choose to have the screening and/or has further questions. The patient has my card with my contact information and has been encouraged to call if he has additional questions or concerns. The patient has been encouraged to follow-up with PCP and/or the outpatient Tobacco Cleaning Associate, Sarah Hall APRN in [facility] clinic. Anastacio Son, MSN, RN-, NCTTP Tobacco Network Engineer [facility] Pager #[phone] Plan of Care - Darlin Restrepo I RN - 07/19/2018 2:45 AM EDT Problem: Patient Care Overview Goal: Plan of Care Review Outcome: Ongoing (Interventions Implemented as Appropriate) 07/18/18200607/19/18 0233 Plan of Care Review Progress -- progress toward functional goals as expected Coping/Psychosocial Plan Of Care Reviewed With patient -- OUTCOME EVALUATION NOTE: OUTCOME SUMMARY: Pt had a good night. Pt was able to sleep b/w care. Care clustered to minimize sleep interruption. Pain well controlled w/ PRN oxy and scheduled meds. Pt voiding adequate amounts; clear yellow. No BM this shift but passing flatus. Pt NPO since 0000. MIVF running continuously. PLAN MOVING FORWARD: Pt will have RLE angio done in the AM. Manage pain adequately. Encourage independence. INDIVIDUALIZED FALL PREVENTION INTERVENTIONS: Patient-specific fall risk factors per assessment: [current deficits]: IV access, narcotics, increased pain w/ movement Assistance [level of assistance required for transfers and ambulation]: SBA Supervision [direct monitoring required during toileting and ADLs]: Arms reach Surveillance [continuous indirect monitoring]: Purposeful hourly rounding, call le in reach, belongings in reach Patient-specific fall prevention interventions for sensory deficits provided, if applicable: [X] Yeseye glasses CPG GOAL OUTCOME EVALUATION: Ongoing documented in this encounter Plan of Treatment Scheduled Referrals Name Type Priority Associated Diagnoses Order S chedule Referral to [place] Outpatient Referral Routine Tobacco abuse Order ed: Quitworks 07/20/2018 documented as of this encounter Procedures Procedure Name Priority Date/Time Associated Diagnosis Comme nts REYMUNDO/TCPO2 Routine 07/20/2018 2:13 PM Critical lower limb Re sults for this (TRANSCUTANEOUS EDT ischemia procedure ar e in OXYGEN PRESSURE the results TEST) section. ARTERIAL DUPLEX LEG Routine 07/20/2018 7:44 AM PVD (peripheral Results for this UNILA EDT vascular disease) procedure are in with claudication the result s section. POCT GLUCOSE Routine 07/20/2018 7:16 AM Results f or this EDT procedure are i n the results section. BASIC METABOLIC Routine 07/20/2018 6:30 AM Result s for this PANEL (NON-FASTING) EDT procedur e are in the results section. POCT GLUCOSE Routine 07/19/2018 8:32 PM Results f or this EDT procedure are i n the results section. POCT GLUCOSE Routine 07/19/2018 4:03 PM Results f or this EDT procedure are i n the results section. VS ARTERIOGRAM LOWER Routine 07/19/2018 2:27 PM PVD (periphera l Results for this EXTREMITY VASCULAR EDT vascular disease) proc edure are in SURGERY with claudication the result s section. INTRODUCE CATH UPPER Routine 07/19/2018 2:07 PM OR LOWER EXTREMITY EDT ARTERY (EG ILIAC OR FEMORAL) EXPLORATION, W/WO Routine 07/19/2018 2:07 PM LYSIS,FEMORAL ARTERY EDT W\O SURGICAL REPAIR POCT GLUCOSE Routine 07/19/2018 11:27 Results for this AM EDT procedure are i n the results section. POCT GLUCOSE Routine 07/19/2018 7:53 AM Results f or this EDT procedure are i n the results section. HEMOGRAM Routine 07/19/2018 7:25 AM Results f or this EDT procedure are i n the results section. DIFFERENTIAL, Routine 07/19/2018 7:25 AM Results for this AUTOMATED EDT procedure are i n the results section. CBC (WITH DIFF) Routine 07/19/2018 7:25 AM EDT BASIC METABOLIC Routine 07/19/2018 7:25 AM Result s for this PANEL (NON-FASTING) EDT procedur e are in the results section. POCT GLUCOSE Routine 07/18/2018 8:55 PM Results f or this EDT procedure are i n the results section. POCT GLUCOSE Routine 07/18/2018 5:05 PM Results f or this EDT procedure are i n the results section. HEMOGRAM Routine 07/18/2018 3:45 PM Results f or this EDT procedure are i n the results section. DIFFERENTIAL, Routine 07/18/2018 3:45 PM Results for this AUTOMATED EDT procedure are i n the results section. CBC (WITH DIFF) Routine 07/18/2018 3:45 PM EDT HEMOGLOBIN A1C Routine 07/18/2018 3:45 PM Results for this EDT procedure are i n the results section. BASIC METABOLIC Routine 07/18/2018 3:45 PM Result s for this PANEL (NON-FASTING) EDT procedur e are in the results section. documented in this encounter Results REYMUNDO/TCPO2 (07/20/2018 2:13 PM EDT) Component Value Ref Test Analysis Performed At [facility] Range Method Time Signature VB Text Department: Vascular Surgery Lab VASCUBASE Report Patient: [id number] (BERTIN LORENZO) CPT: 94787 ICD10: I99.8;I77.1 Referring Physician: JHONNY ONEAL MD ?? Phone: Indications: ??F/U PAD with R rest pain, S/P R i liofemoral endarterectomy and iliac stenting, R SFA occlusion. Diabetes mellitus: Yes ICD10 Diagnosis Code: I99.8 Findings: Brachial Artery, Right ? Pressure (mmHg): 152 Dorsalis Pedis (Ankle) Artery, Right ? Pressure (mmHg): 72 ? REYMUNDO: 0.47 ? Waveform: Monophasic Posterior Tibial (Ankle) Artery, Right ? Pressure (mmHg): 49 ? REYMUNDO: 0.32 ? Waveform: Monophasic Great Toe, Right ? Pressure (mmHg): 24 ? TBI: 0.16 10 cm Above Knee, Right ? TCPO2: 31 15 cm Below Knee, Right ? TCPO2: 29 ForeFoot, Right ? TCPO2: 2 Brachial Artery, Left ? Pressure (mmHg): 152 Dorsalis Pedis (Ankle) Artery, Left ? Pressure (mmHg): 114 ? REYMUNDO: 0.75 ? Waveform: Biphasic Posterior Tibial (Ankle) Artery, Left ? Pressure (mmHg): 120 ? REYMUNDO: 0.79 ? Waveform: Biphasic-Rev Great Toe, Left ? Pressure (mmHg): 90 ? TBI: 0.59 Chest, Left ? TCPO2: 43 Interpretation: RIGHT: Moderately severe to severe lower extremity arterial occlusive disease. Significant improvement in the DP REYMUNDO from previous ex am with no significant change in the PT REYMUNDO or TBI. LEFT: Mild (approaching threshold for moderate) lower extrem ity arterial occlusive disease. No significant change from previous exams . Published reports suggest a TCPO2 of 30 mm Hg or greater predictive of adequate tissue oxygenation to promote healing of skin ulcers and amputation sites. The true sensitivity and specifi city of this test, however, is not well established. Previous ABIs with change from previous value: Date ?RIGHT DP ?? RIGHT PT ?? RT GR TOE ??RT Sec T OE ??0.70 ? 0.68 ? 0.47 ? ---- ??0.74(+.04) 0.73(+.05) 0.50(+.03) ---- ??0.40(-.34) 0.36(-.37) 0.46(-.04) ---- ??0.34(-.06) 0.00(-.36) 0.06(-.40) ---- ??0.25(-.09) 0.33(+.33) 0.11(+.05) ---- Current ? 0.47(+.22) 0.32(-.01) 0.16(+.05) ---- Date ?LEFT DP ?LEFT PT ?LT GR TOE LT Sec T OE ??0.80 ? 0.82 ? 0.72 ? ---- ??0.91(+.11) 0.94(+.12) 0.88(+.16) ---- ??0.84(-.07) 0.83(-.11) 0.67(-.21) ---- ??0.57(-.27) 0.63(-.20) 0.57(-.10) ---- ??0.64(+.07) 0.68(+.05) 0.55(-.02) ---- Current ? 0.75(+.11) 0.79(+.11) 0.59(+.04) ---- Electronically Signed by: JHONNY ONEAL MD on 2018-07-20 10: 31:12 AM VB Text End of Report VASCUBASE Report Specimen (Source) Anatomical Collection Method Collection Time Re ceived Time Location / / Volume Laterality 07/20/2018 2:13 PM EDT Jhonny Oneal MD VASCULAR ORDERABLES Performing Organization Address City/State/ZIP Code Phon e Number VASCUBASE Arterial Duplex Leg, Unil (07/20/2018 7:44 AM EDT) Component Value Ref Test Analysis Performed At [facility] Range Method Time Signature VB Text Department: Vascular Surgery Lab VASCUBASE Report Patient: [id number] (BERTIN LORENZO) CPT: 47314 ICD10: I73.9 Referring Physician: JHONNY ONEAL MD ?? Phone: Indications: ?? R lower extremity CLI with rest pain, s/p R iliofemoral endarterectomy and iliac stenting with known R SFA occlusi on, ? location of reconstitution ICD10 Diagnosis Code: I73.9 Findings: Right ? PSV (c m/s) ??EDV ?? Common femoral artery, Distal ? 41 ?6 ?? Profunda Femoris Artery, Proximal ?183 ?? 20 ?? Superficial Femoral Artery, Proximal ? 0 ?0 ?? Superficial Femoral Artery, Mid ?116 ?? 2 7 ?? Superficial Femoral Artery, Distal ?47 ?? 18 ?? Popliteal Artery, Above Knee ?52 ?? 18 ?? Popliteal Artery, Mid ? 47 ?? 18 ?? Popliteal Artery, Below Knee ?39 ?? 13 ?? Interpretation: RIGHT: Patent common femoral artery and proximal profunda femoris artery with slightly elevated velocities noted in the very proximal profunda femoris artery, PSV 183 cm/s. The superficial femoral artery is occluded a t its origin with reconstitution near mid thigh (this location was marked). Pa tent popliteal artery with no significant stenosis identified. Comparison: ??No previous study in our vascular lab da tabase for comparison. Electronically Signed by: JHONNY ONEAL MD on 2018-07-20 10: 33:37 AM VB Text End of Report VASCUBASE Report Specimen (Source) Anatomical Collection Method Collection Time Re ceived Time Location / / Volume Laterality 07/20/2018 7:44 AM EDT Jhonny Oneal MD VASCULAR ORDERABLES Performing Organization Address City/State/ZIP Code Phon e Number VASCUBASE POCT Glucose (07/20/2018 7:16 AM EDT) P athologist Signature POC Glucose 99 65 - 199 [facility] Comment: Supplemental ranges: <140 mg/dL before meals <180 mg/dL all other times of the day Specimen Anatomical Collection Method Collection Time Receive d Time (Source) Location / / Volume Laterality Blood specimen 07/20/2018 7:16 AM 019 7:16 (specimen) EDT AM EDT Jhonny Oneal MD POINT OF CARE TEST ORDERABLE S Performing Organization Address City/State/[place] [address] Basic Metabolic Panel (non-fasting) (07/20/2018 6:30 AM EDT) P athologist Signature Glucose Lvl 99 65 - 199 [facility] mg[facility]dL [facility] Comment: Diabetes: >=200 mg/dL plus symp toms BUN 20 10 - 20 mg/dL [facility] Creatinine 0.81 0.80 - 1.50 mg/dL [facility] Sodium 140 135 - 145 mmol/L [facility] Potassium 4.1 3.5 - 5.0 mmol/L [facility] Comment: Please note: ??Patients with WBC >100,00 0 may have falsely elevated Potassium levels. ??For accurate Potassium quantif ication in these patients send serum separator tube (gold top) for subsequent determinations. ??Contact the Clinical Chemistry Laboratory if there are any qu estions. Chloride 101 98 - 107 mmol/L [facility] CO2 26 22 - 31 mmol/L [facility] Anion Gap 13 5 - 15 mmol/L [facility] Calcium 8.6 8.5 - 10.5 mg/dL [facility] Estimated GFR 99 >=60 mL/min/1.73 m?? [facility] Comment: The eGFR was calculated using the CKD-EP I equation. As with all creatinine based estimates of kidney function, eGFR values calculated with the CKD-EPI equation are not accurate in patients wi th acute kidney failure, extremes of body mass or the acutely ill. http://[employer]/[facility] eGFR 114 >=60 mL/min/1.73 m?? [facility] Comment: The eGFR was calculated using the CKD-EP I equation. As with all creatinine based estimates of kidney function, eGFR values calculated with the CKD-EPI equation are not accurate in patients wi th acute kidney failure, extremes of body mass or the acutely ill. http://[employer]/[facility] Specimen Anatomical Collection Method Collection Time Receive d Time (Source) Location / / Volume Laterality Blood specimen 07/20/2018 6:30 AM 019 6:42 (specimen) EDT AM EDT Resulting Agency Comment Spec In Lab Jhonny Oneal MD CHEMISTRY ORDERABLES Performing Organization Address City/[facility]/[place] [address] POCT Glucose (07/19/2018 8:32 PM EDT) P athologist Signature POC Glucose 166 65 - 199 [facility] mg/dL [facility] Comment: Supplemental ranges: <140 mg/dL before meals <180 mg/dL all other times of the day Specimen Anatomical Collection Method Collection Time Receive d Time (Source) Location / / Volume Laterality Blood specimen 07/19/2018 8:32 PM 019 8:32 (specimen) EDT PM EDT Jhonny Oneal MD POINT OF CARE TEST ORDERABLE S Performing Organization Address City/[facility]/ZIP Code Phon e Number JW [id number] POCT Glucose (07/19/2018 4:03 PM EDT) P athologist Signature POC Glucose 94 65 - 199 [facility] mg/dL [facility] Comment: Supplemental ranges: <140 mg/dL before meals <180 mg/dL all other times of the day Specimen Anatomical Collection Method Collection Time Receive d Time (Source) Location / / Volume Laterality Blood specimen 07/19/2018 4:03 PM 019 4:03 (specimen) EDT PM EDT Jhonny Oneal MD POINT OF CARE TEST ORDERABLE S Performing Organization Address City/State/ZIP Code Phon e Number [address] VS Arteriogram Lower Extremity Vascular Surgery (07/19/2018 2:27 PM EDT) Anatomical Region Laterality Modality X-Ray Angiography Specimen (Source) Anatomical Location Collection Method / Collectio n Time Received Time / Laterality Volume Narrative 07/26/2018 11:45 AM EDT Attestation signed by Jhonny Oneal MD at 07/21/2018 10:23 AM I was the attending physician supervisin g the resident/fellow in the above care and I was present with the resident/fell ow for the entire procedure. ?? I was present during the intraservice ti me as documented by the sedation RN. Jhonny Oneal MD Vascular Surgery Interventional Procedur e Note Date of procedure: 07/19/18 Pre-Procedure Diagnosis: RLE critical li mb ischemia (rest pain, nonhealing wound) Post-Procedure Diagnosis: RLE critical l imb ischemia Procedure: - Left femoral ??arterial access with fl uoroscopic and ultrasound guidance - Aortogram - second order selective catheterization of right external iliac artery - RLE arteriogram - Mynx closure Surgeon(s): MD Jhonny Alexander MD Intra-procedural Medications: Versed dose: 2.5 mg Fentanyl dose: 125 mcg Local anesthetic: 5 cc 1% lidocaine Heparin: Yes 8000 Units Protamine: Yes 30 mg Antibiotics: ancef 2g Fluoro Time: 14.4 min Contrast: 76 mL Sheath Size: ??6 Fr Indications for the procedure: Mr Lorenzo is a 57M who is s/p R [...] not well visualized - RLE arteriogram demonstrated: QUALITY REVIEWER wide ly patent, profunda widely patent, SFA [...] was inserted and upsized to a 5 Swiss sheat h over a stiff glidewire. A 5F Omni flush catheter was then advanced into th e infrarenal aorta over the wire. Diagnostic [...] report, please contact e number below. ? Procedure Note Jhonny Oneal MD - 07/26/2018 Attestation signed by Jhonny Oneal MD at 07/21/2018 10:23 AM I was the attending physician supervisin g the resident/fellow in the above care and I was present with the resident/fell ow for the entire procedure. I was present during the intraservice ti me as documented by the sedation RN. Jhonny Oneal MD Vascular Surgery Interventional Procedur e Note Date of procedure: 07/19/18 Pre-Procedure Diagnosis: RLE critical li mb ischemia (rest pain, nonhealing wound) Post-Procedure Diagnosis: RLE critical l imb ischemia Procedure: - Left femoral arterial access with fluo roscopic and ultrasound guidance - Aortogram - second order selective catheterization of right external iliac artery - RLE arteriogram - Mynx closure Surgeon(s): MD Jhonny Alexander MD Intra-procedural Medications: Versed dose: 2.5 mg Fentanyl dose: 125 mcg Local anesthetic: 5 cc 1% lidocaine Heparin: Yes 8000 Units Protamine: Yes 30 mg Antibiotics: ancef 2g Fluoro Time: 14.4 min Contrast: 76 mL Sheath Size: 6 Fr Indications for the procedure: Mr Lorenzo is a 57M who is s/p R [...] not well visualized - RLE arteriogram demonstrated: QUALITY REVIEWER wide ly patent, profunda widely patent, SFA [...] was inserted and upsized to a 5 Swiss sheat h over a stiff glidewire. A 5F Omni flush catheter was then advanced into th e infrarenal aorta over the wire. Diagnostic [...] this report, please contact e number below. Jhonny Oneal MD IMG IR ORDERABLES POCT Glucose (07/19/2018 11:27 AM EDT) athologist Signature POC Glucose 128 65 - 199 [facility] mg/dL [facility] Comment: Supplemental ranges: <140 mg/dL before meals <180 mg/dL all other times of the day Specimen Anatomical Collection Method Collection Time Receive d Time (Source) Location / / Volume Laterality Blood specimen 07/19/2018 11:27 9 (specimen) AM EDT 11:27 AM EDT Jhonny Oneal MD POINT OF CARE TEST ORDERABLE S Performing Organization Address City/State/[place] [address] POCT Glucose (07/19/2018 7:53 AM EDT) athologist Signature POC Glucose 113 65 - 199 [facility] mg/dL [facility] Comment: Supplemental ranges: <140 mg/dL before meals <180 mg/dL all other times of the day Specimen Anatomical Collection Method Collection Time Receive d Time (Source) Location / / Volume Laterality Blood specimen 07/19/2018 7:53 AM 019 7:53 (specimen) EDT AM EDT Jhonny Oneal MD POINT OF CARE TEST ORDERABLE S Performing Organization Address City/State/ZIP Code Phon e Number [facility] [place] [address] (ABNORMAL) Differential, Automated (07/19/2018 7:25 AM EDT) [facility] gist Method Time Signature Neutrophils % 47.7 % [facility] Neutr Abs (ANC) 4.61 1.70 - [facility] 6.10 [facility] x10(3)/[facility] LABORATORY Lymphocytes % 42.2 % [facility] Lymphocytes Abs 4.1 (H) 0.9 - 3.2 [facility] x10(3)/[facility] LABORATORY Monocytes % 6.4 % [facility] Monocyte Abs 0.6 0.3 - 0.9 [facility] x10(3)/[facility] LABORATORY Eosinophils % 2.5 % [facility] Eosinophils Abs 0.2 0.0 - 0.4 [facility] x10(3)/[facility] LABORATORY Basophils % 0.6 % [facility] Basophils Abs 0.1 0.0 - 0.1 [facility] x10(3)/[facility] LABORATORY Immature Gran % 0.60 % [facility] Comment: Immature granulocytes(IG's)percentage an d absolute count will include metamyelocytes, myelocytes, and promyelo cytes. Blood smears from CBCs yielding IG's will be scanned manually for concor dance. If this scan disagrees with the automated IG or if promyelocytes are not ed, a manual differential will be performed. Madhuri Gran Abs 0.06 (H) 0.00 - 0.04 x10(3)/[facility] LABORATORY Specimen Anatomical Collection Method Collection Time Receive d Time (Source) Location / / Volume Laterality Blood specimen 07/19/2018 7:25 AM 019 7:31 (specimen) EDT AM EDT Resulting Agency Comment Spec In Lab Meliton Rodriguez MD HEMATOLOGY ORDERABLES Performing Organization Address City/State/[place] [address] (ABNORMAL) Hemogram (07/19/2018 7:25 AM EDT) Analysis Performed At Patho logist Time Signature WBC 9.7 (H) 4.0 - 9.5 [facility] x[facility](3)/[facility] LABORATORY RBC 4.19 (L) 4.58 - JW KEREN 5.54 [facility] x10(6)/[facility] LABORATORY Hemoglobin 12.3 (L) 13.7 - [facility] 16.5 gm/dL [facility] Hematocrit 39.1 (L) 40.5 - [facility] 48.5 % [facility] MCV 93.3 (H) 82.9 - [facility] 93.[address] [facility] LABORATORY MCH 29.4 27.5 - JW KEREN 32.1 pg [facility] MCHC 31.5 (L) 32.0 - WJ KEREN 35.7 gm/dL [facility] Platelets 223 145 - 357 [facility] x[facility](3[facility] LABORATORY RDWSD 48.2 (H) 36.0 - JW KEREN 45.0 [facility] LABORATORY RDWCV 14.2 (H) 11.4 - [facility] KEREN 13.8 % [facility] MPV 11.3 7.6 - 12.9 [facility] nRBC % Auto 0.0 % [facility] nRBC Abs Auto 0.000 0.000 - JW KEREN 0.000 [facility] x10(3)/[facility] LABORATORY Specimen Anatomical Collection Method Collection Time Receive d Time (Source) Location / / Volume Laterality Blood specimen 07/19/2018 7:25 AM 019 7:31 (specimen) EDT AM EDT Resulting Agency Comment Spec In Lab Meliton Rodriguez MD HEMATOLOGY ORDERABLES Performing Organization Address City/State/[place] [address] (ABNORMAL) Basic Metabolic Panel (non-fasting) (07/19/2018 7:25 AM EDT) P athologist Signature Glucose Lvl 114 65 - 199 [facility] mg/dL [facility] Comment: Diabetes: >=200 mg/dL plus symp toms BUN 26 (H) 10 - 20 mg/dL [facility] Creatinine 0.72 (L) 0.80 - 1.50 mg/dL [facility] Sodium 140 135 - 145 mmol/L [facility] Potassium 4.1 3.5 - 5.0 mmol/L [facility] Comment: Please note: ??Patients with WBC >100,00 0 may have falsely elevated Potassium levels. ??For accurate Potassium quantif ication in these patients send serum separator tube (gold top) for subsequent determinations. ??Contact the Clinical Chemistry Laboratory if there are any qu estions. Chloride 102 98 - 107 mmol/L [facility] CO2 24 22 - 31 mmol/L [facility] Anion Gap 14 5 - 15 mmol/L [facility] Calcium 8.9 8.5 - 10.5 mg/dL [facility] Estimated GFR 104 >=60 mL/min/1.73 m?? [facility] Comment: The eGFR was calculated using the CKD-EP I equation. As with all creatinine based estimates of kidney function, eGFR values calculated with the CKD-EPI equation are not accurate in patients wi th acute kidney failure, extremes of body mass or the acutely ill. http://[employer]/[facility]SAnkf eGFR 120 >=60 mL/min/1.73 m?? [facility] Comment: The eGFR was calculated using the CKD-EP I equation. As with all creatinine based estimates of kidney function, eGFR values calculated with the CKD-EPI equation are not accurate in patients wi th acute kidney failure, extremes of body mass or the acutely ill. http://[employer]/[facility]kf Specimen Anatomical Collection Method Collection Time Receive d Time (Source) Location / / Volume Laterality Blood specimen 07/19/2018 7:25 AM 019 7:31 (specimen) EDT AM EDT Resulting Agency Comment Spec In Lab Jhonny Oneal MD CHEMISTRY ORDERABLES Performing Organization Address City/State/ZIP Code Phon e Number [address] POCT Glucose (07/18/2018 8:55 PM EDT) P athologist Signature POC Glucose 146 65 - 199 [facility] Comment: Supplemental ranges: <140 mg/dL before meals <180 mg/dL all other times of the day Specimen Anatomical Collection Method Collection Time Receive d Time (Source) Location / / Volume Laterality Blood specimen 07/18/2018 8:55 PM 019 8:55 (specimen) EDT PM EDT Jhonny Oneal MD POINT OF CARE TEST ORDERABLE S Performing Organization Address City/[facility]/ZIP Code Phon e Number [address] POCT Glucose (07/18/2018 5:05 PM EDT) P athologist Signature POC Glucose 193 65 - 199 [facility] mg/dL [facility] Comment: Supplemental ranges: <140 mg/dL before meals <180 mg/dL all other times of the day Specimen Anatomical Collection Method Collection Time Receive d Time (Source) Location / / Volume Laterality Blood specimen 07/18/2018 5:05 PM 019 5:05 (specimen) EDT PM EDT Jhonny Oneal MD POINT OF CARE TEST ORDERABLE S Performing Organization Address City/[facility]/ZIP Code Phon e Number [address] (ABNORMAL) Differential, Automated (07/18/2018 3:45 PM EDT) Patholo gist Method Time Signature Neutrophils % 60.8 % [facility] Neutr Abs (ANC) 6.60 (H) 1.70 - [facility] 6.10 [facility] x10(3)/[facility] L LABORATORY Lymphocytes % 29.9 % [facility] Lymphocytes Abs 3.2 0.9 - 3.2 [facility] x10(3)/[facility] LABORATORY Monocytes % 6.4 % [facility] Monocyte Abs 0.7 0.3 - 0.9 [facility] x10(3)/[facility] LABORATORY Eosinophils % 1.5 % [facility] Eosinophils Abs 0.2 0.0 - 0.4 [facility] x10(3)/[facility] LABORATORY Basophils % 0.6 % [facility] Basophils Abs 0.1 0.0 - 0.1 [facility] x10(3)/[facility] LABORATORY Immature Gran % 0.80 % [facility] Comment: Immature granulocytes(IG's)percentage an d absolute count will include metamyelocytes, myelocytes, and promyelo cytes. Blood smears from CBCs yielding IG's will be scanned manually for concor dance. If this scan disagrees with the automated IG or if promyelocytes are not ed, a manual differential will be performed. Madhuri Gran Abs 0.09 (H) 0.00 - 0.04 x10(3)/[facility] LABORATORY Specimen Anatomical Collection Method Collection Time Receive d Time (Source) Location / / Volume Laterality Blood specimen 07/18/2018 3:45 PM 019 4:00 (specimen) EDT PM EDT Resulting Agency Comment Spec In Lab Meliton Rodriguez MD HEMATOLOGY ORDERABLES Performing Organization Address City/State/[place] [address] (ABNORMAL) Hemogram (07/18/2018 3:45 PM EDT) Analysis Performed At Patho logist Time Signature WBC 10.9 (H) 4.0 - 9.5 [facility] x10(3)/[facility] LABORATORY RBC 4.28 (L) 4.58 - [facility] 5.54 [facility] x10(6)/[facility] LABORATORY Hemoglobin 12.7 (L) 13.7 - [facility]dL [facility] Hematocrit 39.8 (L) 40.5 - [facility] 48.5 % [facility] MCV 93.0 82.9 - [facility] 93.[address] [facility] LABORATORY MCH 29.7 27.5 - [facility] 32.1 pg [facility] MCHC 31.9 (L) 32.0 - [facility] 35.7 gm/dL [facility] Platelets 266 145 - 357 [facility] x10(3)/[facility] LABORATORY RDWSD 48.8 (H) 36.0 - [facility] 45.0 [facility] LABORATORY RDWCV 14.5 (H) 11.4 - [facility] 13.8 % [facility] MPV 11.6 7.6 - 12.9 [facility] LABORATORY nRBC % Auto 0.0 % [facility] nRBC Abs Auto 0.000 0.000 - [facility] 0.000 [facility] x10(3)/[facility] LABORATORY Specimen Anatomical Collection Method Collection Time Receive d Time (Source) Location / / Volume Laterality Blood specimen 07/18/2018 3:45 PM 019 4:00 (specimen) EDT PM EDT Resulting Agency Comment Spec In Lab Meliton Rodriguez MD HEMATOLOGY ORDERABLES Performing Organization Address City/State/[place] [address] (ABNORMAL) Basic Metabolic Panel (non-fasting) (07/18/2018 3:45 PM EDT) P athologist Signature Glucose Lvl 225 (H) 65 - 199 [facility] mg/dL [facility] Comment: Diabetes: >=200 mg/dL plus symp toms BUN 35 (H) 10 - 20 mg/dL [facility] Creatinine 1.19 0.80 - 1.50 mg/dL [facility] Sodium 139 135 - 145 mmol/L [facility] Potassium 4.6 3.5 - 5.0 mmol/L [facility] Comment: Please note: ??Patients with WBC >100,00 0 may have falsely elevated Potassium levels. ??For accurate Potassium quantif ication in these patients send serum separator tube (gold top) for subsequent determinations. ??Contact the Clinical Chemistry Laboratory if there are any qu estions. Chloride 97 (L) 98 - 107 mmol/L [facility] CO2 23 22 - 31 mmol/L [facility] Anion Gap 19 (H) 5 - 15 mmol/L [facility] Calcium 9.6 8.5 - 10.5 mg/dL [facility] Estimated GFR 67 >=60 mL/min/1.73 m?? [facility] Comment: The eGFR was calculated using the CKD-EP I equation. As with all creatinine based estimates of kidney function, eGFR values calculated with the CKD-EPI equation are not accurate in patients wi th acute kidney failure, extremes of body mass or the acutely ill. http://[employer]/[facility]SAnkf eGFR 78 >=60 mL/min/1.73 m?? [facility] Comment: The eGFR was calculated using the CKD-EP I equation. As with all creatinine based estimates of kidney function, eGFR values calculated with the CKD-EPI equation are not accurate in patients wi th acute kidney failure, extremes of body mass or the acutely ill. http://[employer]/[facility]kf Specimen Anatomical Collection Method Collection Time Receive d Time (Source) Location / / Volume Laterality Blood specimen 07/18/2018 3:45 PM 019 4:00 (specimen) EDT PM EDT Resulting Agency Comment Spec In Lab Jhonny Oneal MD CHEMISTRY ORDERABLES Performing Organization Address City/State/[place] [address] (ABNORMAL) Hemoglobin A1c (07/18/2018 3:45 PM EDT) Analysis Performed At Patho logist Time Signature Hemoglobin A1C 8.9 (H) 4.3 - 5.6 [facility] Comment: Reference Range: 4.3 - [...] Mellitus, Diabetes Care 2013; 36: Suppl. 1, S67-85 Est Avg Gluc 208 mg/dL JW OREILLY [facility] Comment: eAG equivalents for HbA1c percentages: HbA1c(%) ?eAG(mg/dL) 6.0 ?126 6.5 ?140 7.0 ?154 7.5 ?169 8.0 ?183 8.5 ?197 9.0 ?212 9.5 ?226 10.0 ? 240 Limitations: The eAG calculation has not been validated on women, individuals below 18 years old and above 70 years old, and individuals with hemoglobinopathies. Additional resources are available on e ADA website. Sal BHARDWAJ, Mariposa J, Vito R, et al. ??Tr anslating the A1C assay into estimated average glucose values. ??Diabetes Care 2008:31(8):8636-4313. Specimen Anatomical Collection Method Collection Time Receive d Time (Source) Location / / Volume Laterality Blood specimen 07/18/2018 3:45 PM 019 4:00 (specimen) EDT PM EDT Resulting Agency Comment Spec In Lab Jhonny Oneal MD CHEMISTRY ORDERABLES Performing Organization Address City/State/ZIP [place] [address] documented in this encounter Visit Diagnoses Diagnosis Tobacco abuse Tobacco use disorder PVD (peripheral vascular disease) with c laudication Peripheral vascular disease, unspecified Critical lower limb ischemia Unspecified circulatory system disorder documented in this encounter Administered Medications Inactive Administered Medications - up to 3 most recent administrations Medication Order MAR Action Action Date Dose Rate Site acetaminophen (TYLENOL) tablet 650 Given 07/18/2018 3:19 PM EDT 650 mg mg 650 mg, Oral, EVERY 6 HOURS PRN, Starting on Tue07/18/18 at 1121, Until Tue07/20/18 at 1254, Pain, Fever, Administer for temperature greater than or equal to 38.2 degrees celsius. Maximum daily dose of acetaminophen from all sources not to exceed 4,000 mg., Routine aspirin chewable tablet 81 mg Given 07/20/2018 10:26 AM EDT 81 mg 81 mg, Oral, DAILY, First dose on Tue07/19/18 at 0900, Until Discontinued, Routine Given 07/19/2018 9:25 AM EDT 81 mg atorvastatin (LIPITOR) tablet 80 mg Given 07/19/2018 4:15 PM EDT 80 mg 80 mg, Oral, EVERY EVENING, First dose on Tue07/18/18 at 1700, Until Discontinued, Routine Given 07/18/2018 5:17 PM EDT 80 mg bisacodyl (DULCOLAX) suppository 10 mg 10 mg, Rectal, DAILY PRN, Starting on Tue07/18/18 at 1 121, Until Tue07/20/18 at 1254, Constipation, Administer if no bow el movement within 48 hours to achieve: (1) One bowel movement at least every 48 fernando rs, AND (2) without straining. If multiple PRN bowel medications ordered, start wit h polyethylene glycol, then lactulose, then oral bisacodyl, then bisacodyl supposito ry, then magnesium citrate, then tap water enema. Multiple medications may be given concomitantly for constipation., Routine ceFAZolin (ANCEF) 2 gram/100 mL infusion PgBk 1 dose, Starting on Tue07/19/18 at 1223, Until Tue07/19/18 at 1301, Jie Buckner: cabinet override ceFAZolin (ANCEF) 2g in dextrose 5% 100 mL New Bag 07/19/2018 12:30 PM EDT 2 g 2 g, Intravenous, ONCE, 1 dose, On Tue07/19/18 at 1300, Administer over 30 Minutes, Indication for (Active or Suspected): Prophylaxis clopidogrel (PLAVIX) tablet 75 mg Given 07/20/2018 10:26 AM EDT 75 mg 75 mg, Oral, DAILY, First dose on Tue07/19/18 at 1545, Until Discontinued, Routine Given 07/19/2018 4:16 PM EDT 75 mg dextrose 50% intravenous solution 25-50 mL 25-50 mL (12.5-25 g), Intravenous, EVERY 1 HOUR PRN, S tarting on Tue07/18/18 at 1604, Until Holly 07/20/18 at 1254, Low blood sugar, F or BG 50-70 [...] of the active insulin., Routine fentaNYL (PF) 50 mcg/mL injection 1 dose, Starting on Tue07/19/18 at 1223, Until Tue07/19/18 at 1245, Jie Buckner: cabinet override fentaNYL 50 mcg/mL multi-dose injection Given 07/19/2018 1:06 PM EDT 50 mcg 25-50 mcg, Intravenous, EVERY 5 MIN PRN, Starting on Tue07/19/18 at 1211, Until Tue07/19/18 at 1350, Pain, per unit protocol, - Start dose 50 mcg (reduce dose to 25 mcg if history of sedation sensitivity). - Titration dose 25-50 mcg IV, (based on patient response) every 3 minutes PRN, to maintain procedural pain less than 2 per pain Scale. Maximum dose: 50 mcg/dose, 250 mcg/hour For use in Interventional Radiology (IR) only for procedural sedation with direct provider supervision and verbal order., Angio/IR (Intra-Procedure), Routine Given 07/19/2018 12:56 PM EDT 50 mcg Given 07/19/2018 12:45 PM EDT 25 mcg furosemide (LASIX) tablet 20 mg Given 07/20/2018 10:26 AM EDT 20 mg 20 mg, Oral, DAILY, First dose on Tue07/19/18 at 0900, Until Discontinued, Routine Given 07/19/2018 4:16 PM EDT 20 mg gabapentin (NEURONTIN) capsule 400 mg Given 07/20/2018 10:26 AM EDT 400 mg 400 mg, Oral, 3 TIMES DAILY, First dose on Tue07/18/18 at 1530, Until Discontinued, Routine Given 07/19/2018 8:31 PM EDT 400 mg Given 07/19/2018 4:15 PM EDT 400 mg glucagon (human recombinant) injection S olR 1 mg 1 mg, Intramuscular, EVERY 1 HOUR PRN, S tarting on Tue07/18/18 at 1604, Until Holly 07/20/18 at 1254, Low blood sugar, For BG 50-70 mg/d [...] 30 MIN PRN, Starting on 06/24 at 1604, Until Tue07/20/18 at 1254, Low blood sugar, For BG 50-70 mg/d [...] weight of tube = 37.5 grams., Routine heparin (porcine) 1,000 unit/mL injectio n 1 dose, Starting on Tue07/19/18 at 1223, Until Tue07/19/18 at 1330, Jie Buckner: cabinet override heparin (porcine) injection 1,000-10,000 Given 019 1:30 PM EDT 8,000 Units Units 1,000-10,000 Units, Intravenous, ONCE, 1 dose, On Tue07/19/18 at 1230, For use in Interventional Radiology (IR) only for procedural sedation with direct provider supervision and verbal order., Angio/IR (Intra-Procedure), Routine heparin (Porcine) subcutaneous injection Given 019 6:44 AM EDT 5,000 Units 5,000 Units 5,000 Units, Subcutaneous, EVERY 8 HOURS SCHEDULED, First dose on Tue07/18/18 at 1400, Until Discontinued, Routine Given 07/19/2018 9:45 PM EDT 5,000 Units Given 07/19/2018 5:36 AM EDT 5,000 Units insulin lispro (HumaLOG) VIAL injection 1-4 Given 06/24 5:17 PM EDT 2 Units Units 1-4 Units, Subcutaneous, 3 TIMES DAILY BEFORE MEALS, First dose on Tue07/18/18 at 1630, Until Discontinued, CORRECTION BOLUS Sensitive to insulin [...] unless specifically told to do so., Routine iodixanol (VISIPAQUE) 320 mg iodine/mL Given 07/19/2018 1:53 PM EDT 76 mLs injection 150 mL 150 mL, Intra-arterial, ONCE PRN, 1 dose, Starting on Tue07/19/18 at 1413, Until Tue07/19/18 at 1353, Per Protocol, Routine isosorbide mononitrate (IMDUR) CR tablet 60 Given 07/20/2018 10:26 AM EDT 60 mg mg 60 mg, Oral, DAILY, First dose on Tue07/19/18 at 0900, Until Discontinued, DO NOT CRUSH OR OPEN, Routine Given 07/19/2018 9:25 AM EDT 60 mg lidocaine (XYLOCAINE) 10 mg/mL (1 %) injection Given 0 07/19/2018 1:00 PM EDT 10 mg 10 mg 10 mg, Subcutaneous, ONCE, 1 dose, On Tue07/19/18 at 1230, For use in Interventional Radiology (IR) only for procedure with direct provider supervision and verbal order., Angio/IR (Intra-Procedure), Routine lidocaine (XYLOCAINE) 10 mg/mL (1 %) inj ection 3 mg 3 mg (0.3 mL), Subcutaneous, ONCE PRN, 1 dose, Startin g on Tue07/18/18 at 1506, Until Holly 07/20/18 at 1254, for discomfort with PIV ins ertion, Recovery (Recovery-Hospital Unit), Routine lisinopril (PRINIVIL;ZESTRIL) tablet 5 m g Given 07/20/2018 10:26 AM EDT 5 mg 5 mg, Oral, DAILY, First dose on Tue07/18/18 at 1530, Until Discontinued, Routine Given 07/19/2018 9:24 AM EDT 5 mg Given 07/18/2018 3:19 PM EDT 5 mg metoprolol succinate (TOPROL-XL) XL tablet 50 Given 10:30 AM EDT 50 mg mg 50 mg, Oral, 2 TIMES DAILY, First dose on Tue07/18/18 at 2100, Until Discontinued, DO NOT CRUSH OR OPEN, Routine Given 07/19/2018 8:31 PM EDT 50 mg Given 07/19/2018 9:24 AM EDT 50 mg midazolam (PF) (VERSED) 1 mg/mL injectio n 1 dose, Starting on Tue07/19/18 at 1223, Until Tue07/19/18 at 1245, Jie Buckner: cabinet override midazolam (PF) (VERSED) multi-dose injection Given 07/19/2018 1: 06 PM EDT 1 mg 0.5-1 mg 0.5-1 mg, Intravenous, EVERY 3 MIN PRN, Starting on Tue07/19/18 at 1211, Until Tue07/19/18 at 1350, Sleep, - Start dose; 1 mg (Reduce dose to 0.5 mg if history of sedation sensitivity). - Titration dose: 0.5 mg - 1 mg (based on patient response) every 3 minutes PRN to obtain RASS score of -3. Maximum dose: 1 mg per dose, 5 mg/hour. For use in Interventional Radiology (IR) only for procedural sedation with direct provider supervision and verbal order., Angio/IR (Intra-Procedure), Routine Given 07/19/2018 12:56 PM EDT 1 mg Given 07/19/2018 12:45 PM EDT 0.5 mg nicotine (NICODERM CQ) Patch Applied 07/20/2018 10:26 AM 21 mg 03- Shoulder 21 mg/24 hr patch 21 mg EDT (Left) 21 mg (1 patch), Transdermal, DAILY, First dose on Tue07/18/18 at 1145, Until Discontinued, Routine Patch Applied 07/19/2018 9:27 AM EDT 21 mg 10- Arm Upper (Right) Patch Applied 07/18/2018 3:15 PM EDT 21 mg 03- Shoulder (Left) nicotine (NICODERM CQ) 21 mg/24 hr patch Patch Removal Transdermal, DAILY, First dose on Tue at 1130, Until Discontinued, Remove nicotine 21 mg/24 hr patch nicotine (NICODERM CQ) 21 mg/24 hr patch Patch Verification Transdermal, 2 TIMES DAILY, First dose o n Tue07/18/18 at 2330, Until Discontinued, Verify nicotine 21 mg/24 hr patch ondansetron (ZOFRAN) injection 4 mg 4 mg, Intravenous, EVERY 8 HOURS PRN, St arting on Tue07/18/18 at 1506, Until Holly 07/20/18 at 1254, Nausea, May repeat time s one in 30 minutes if ineffective. If multiple antiemetics are ordered, use ondansetron firs t, Recovery (Recovery-Hospital Unit) ondansetron (ZOFRAN) tablet 4 mg 4 mg, Oral, EVERY 8 HOURS PRN, Starting on Tue07/18/18 at 1506, Until Holly 07/20/18 at 1254, Nausea, Vomiting, If multipl e antiemetics are ordered, use ondansetron first. PO Preferred. If patient unable to take PO, may give IV if ordered. May repeat times one in 45 minutes if ineffe ctive., Recovery (Recovery-Hospital Unit), Routine oxyCODONE (ROXICODONE) immediate release Given 07/20/2018 4:12 A M EDT 10 mg tablet 10 mg 10 mg, Oral, EVERY 4 HOURS PRN, Starting on Tue07/18/18 at 1506, Until Holly 07/20/18 at 1254, Pain, moderate pain (4-6), May give additional 5 mg in 30 minutes once if pain not relieved., Routine Given 07/19/2018 8:33 PM EDT 10 mg Given 07/19/2018 4:15 PM EDT 10 mg oxyCODONE (ROXICODONE) immediate release tablet 15 mg 15 mg, Oral, EVERY 4 HOURS PRN, Starting on Tue07/18/18 at 1506, Until Holly 07/20/18 at 1254, Pain, severe pain or opiate dorothy erant patient (7-10), Do not start patient with 15 mg dose. Do not give 15 mg if patient is opiat e niave., Routine oxyCODONE (ROXICODONE) immediate release tablet 5 mg 5 mg, Oral, EVERY 4 HOURS PRN, Starting on Tue07/18/18 at 1506, Until Holly 07/20/18 at 1254, Pain, mild pain (1-3), May give additional 5 mg in 30 minutes once if pain not relieved., Routine pantoprazole (PROTONIX) tablet 40 mg Given 07/20/2018 10:26 AM EDT 40 mg 40 mg, Oral, DAILY, First dose on Tue07/19/18 at 0900, Until Discontinued Given 07/19/2018 9:25 AM EDT 40 mg polyethylene glycol (MIRALAX) packet 17 g 17 g, Oral, DAILY, First dose on Tue07/18/18 at 1145, Until Discontinued, Administer if no bowel movement within 4 8 hours to achieve: (1) One bowel movement at least every 48 hours, AND (2) without straining. If multiple PRN bowel medications ordered, start with polyethylene glycol, t hen lactulose, then oral bisacodyl, then bisacodyl suppository, then magnesium citrate, then tap water enema. Multiple medications may be given concomitantly for constipation., Routine protamine 10 mg/mL injection 1 dose, Starting on Tue07/19/18 at 1223, Until Tue07/19/18 at 1400, Jie Buckner: david aponte protamine injection 50 mg Given 07/19/2018 2:00 PM EDT 30 mg 50 mg, Intravenous, ONCE, 1 dose, On Tue07/19/18 at 1230, Intra-Operative (Intra-Procedure), Routine senna-docusate (PERICOLACE) 8.6-50 mg per Given 2018 8:31 PM EDT 2 tablets tablet 2 tablet 2 tablet, Oral, 2 TIMES DAILY, First dose on Tue07/18/18 at 1145, Until Discontinued, Routine Given 07/18/2018 8:08 PM EDT 2 tablets sertraline (ZOLOFT) tablet 50 mg Given 07/19/2018 8:31 PM EDT 50 mg 50 mg, Oral, NIGHTLY, First dose on Tue07/18/18 at 2100, Until Discontinued, Routine Given 07/18/2018 8:09 PM EDT 50 mg sodium chloride 0.9 % flush 5 mL Given 07/18/2018 8:14 PM EDT 5 mLs 5 mL, Intravenous, 2 TIMES DAILY, First dose on Tue07/18/18 at 2100, Until Discontinued, Recovery (Recovery-Hospital Unit), Routine sodium chloride 0.9 % flush 5-20 mL 5-20 mL, Intravenous, EVERY 1 MIN PRN, S tarting on Tue07/18/18 at 1506, Until Tue07/20/18 at 1254, flush, Flush pertains t o all indwelling lines. Flush per protocol found in the job aid using the link prov ided on this medication record., Recovery (Recovery-Hospital Unit), Routine sodium chloride 0.9% infusion New Bag 07/18/2018 11:41 PM EDT 100 mL/hr 100 mL/hr 100 mL/hr, Intravenous, CONTINUOUS, Starting on Tue07/19/18 at 0000, Until Tue07/20/18 at 1254, Recovery (Recovery-Hospital Unit) documented in this encounter Active and Recently Administered Medications Times are shown in EDT. Scheduled Medication Order 07/18/2018 07/19/2018 07/20/2018 aspirin chewable tablet 81 mg 0925 (Given - Prov ider: Kayla Mclean RN) 1026 (Given - Provider: Elena Betancourt RN) 81 mg, Oral, DAILY, First dose on Tue at 0900, Until Discontinued, Routine atorvastatin (LIPITOR) tablet 80 mg 1717 (Given - Provider: Vidya Miner) 1615 (Given - Provider: Yoav Shultz, HEAVEN) 80 mg, Oral, EVERY EVENING, First dose o n Tue07/18/18 at 1700, Until Discontinued, Routine ceFAZolin (ANCEF) 2g in dextrose 5% 100 mL (COMPLETED) 1230 (New Bag - Provider: Jie Buckner RN)1301 (Stopped - Provider: Yoav Shultz RN) 2 g, Intravenous, ONCE, 1 dose, 07/19 at 1300, Administer over 30 Minutes, Indication for (Active or Suspected): Prophylaxis clopidogrel (PLAVIX) tablet 75 mg 161 ( Given - Provider: Yoav Shultz RN) 1026 (Given - Provider: Elena claire RN) 75 mg, Oral, DAILY, First dose on Tue at 1545, Until Discontinued, Routine furosemide (LASIX) tablet 20 mg 161 (Given - Pr ovider: Yoav Shultz RN) 102 (Given - Provider: Elena Betancourt RN) 20 mg, Oral, DAILY, First dose on Tue at 0900, Until Discontinued, Routine gabapentin (NEURONTIN) capsule 400 mg 154 (Given - Pr ovider: Vidya Miner)2007 (Given - Provider: Darlin Phelan RN) 0925 (Given - Provider: Kayla Mclean RN)1615 (Given - Provider: Yoav Shultz RN)203 (Given - Provider: Jessenia Villeda RN) 1026 (Given - Provider: Elena claire RN) 400 mg, Oral, 3 TIMES DAILY, First dose on Tue07/18/18 at 1530, Until Discontinued, Routine heparin (porcine) injection 1,000-10,000 Units (COMPLETED) 1330 (Given - Provider: Jie Buckner RN - Comment: per verbal order from Dr. Oneal) 1,000-10,000 Units, Intravenous, ONCE, 1 dose, Tue07/19/18 at 1230, For use in Interventional Radiology (IR) only for procedural sedation with direct provider supervision and verbal order., Angio/IR (Intra-Procedure), Routine heparin (Porcine) subcutaneous injection 5,000 Units 1 515 (Given - Provider: Vidya Miner)2239 (Given - Provider: Darlin Phelan RN) 0536 (Given - Provider: Darlin Phelan RN)1400 (Not Given - Provider: Yoav Shultz RN - Reason: See comment - Comment: pt off unit)2145 (Given - Provider: Elena Bustamante RN) 0644 (Given - Provider: Elena allred RN) 5,000 Units, Subcutaneous, EVERY 8 HOURS SCHEDULED, First dose on Tue07/18/18 at 1400, Until Discontinued, Routine insulin lispro (HumaLOG) VIAL injection 1-4 Units(Link ed Group 1) 1717 (Given - Provider: Vidya Miner) 0757 (Not Given - Provider: Yoav tabares RN - Reason: Order parameters not met)1128 (Not Given - Provider: Yoav Shultz RN - Reason: Order parameters not met) 0730 (Not Given - Provider: Elena Betancourt RN - Reason: Order parameters not met - Comment: BS 99) 1-4 Units, Subcutaneous, 3 TIMES DAILY B EFORE MEALS, First dose on Tue07/18/18 at 1630, Until Discontinued, CORRECTION BOLUS Sensitive to insulin lean patient or total daily dose of all insulin need 1607 ( Not Given - Provider: Yoav Shultz RN - Reason: Order parameters not met) ed to achieve glycemic control less than 30 units BG 140 - 160 Give 1 unit BG 161 - 200 Give 2 units BG 201 - 240 Give 3 units BG greater than 240, give 4 units and recheck BG in 2 hours. If less than 2 40 after two hours, give no insulin and resume prior schedule. If BG remains greater than 240, repeat 4 units (no more than three times) & call for new basal insulin orders. DO NOT hold if NPO, unless specifically told to do so., Routine isosorbide mononitrate (IMDUR) CR tablet 60 mg 0925 (Given - Provider: Kayla Mclean RN) 1026 (Given - Provider: Elena claire RN) 60 mg, Oral, DAILY, First dose on Tue at 0900, Until Discontinued, DO NOT CRUSH OR OPEN, Routine lidocaine (XYLOCAINE) 10 mg/mL (1 %) injection 10 mg (COMPLE AARON) 1300 (Given - Provider: Jhonny Oneal MD) 10 mg, Subcutaneous, ONCE, 1 dose, Tue at 1230, For use in Interventional Radiology (IR) only for procedure with direct provider supervision and verbal order., Angio/IR (Intra-Procedure), Routine lisinopril (PRINIVIL;ZESTRIL) tablet 5 mg 1519 (Given - Provider: Viyda Miner) 0924 (Given - Provider: Kayla Mclean, HEAVEN) 1026 (Giv en - Provider: Elena Betancourt RN) 5 mg, Oral, DAILY, First dose on 06/24 at 1530, Until Discontinued, Routine metoprolol succinate (TOPROL-XL) XL tablet 50 mg 2008 (Given - Provider: Darlin Phelan RN) 24 (Given - Provider: Kayla Mclean RN)2030 (Given - Provider: Jessenia Villeda RN) 1030 (Given - Provider: Elena claire RN) 50 mg, Oral, 2 TIMES DAILY, First dose o n Tue07/18/18 at 2100, Until Discontinued, DO NOT CRUSH OR OPEN, Routine nicotine (NICODERM CQ) 21 mg/24 hr patch 21 mg(Linked Group 2) 1515 (Patch Applied - Provider: Vidya Miner) 0927 (Patch Applied - Provider: Kayla Mclean RN) 1026 (Patch Applied - Provider: Vanessa Betancourt RN) 21 mg (1 patch), Transdermal, DAILY, Fir st dose on Tue07/18/18 at 1145, Until Discontinued, Routine nicotine (NICODERM CQ) 21 mg/24 hr patch Patch Removal(Linke d Group 2) 0930 (Patch Removed - Provider: Yoav Shultz RN) 0900 (Patch Removed - Provider: Elena Betancourt RN) Transdermal, DAILY, First dose on Tue at 1130, Until Discontinued, Remove nicotine 21 mg/24 hr patch nicotine (NICODERM CQ) 21 mg/24 hr patch Patch Verific ation(Linked Group 2) 2330 (Patch (dose and location) verified - Provider: Darlin Phelan RN) 0930 (Patch (dose and location) verified - Provider: Kayla Mclean RN)2100 (Patch (dose and location) verified - Provider: Jessenia Villeda RN) 0900 (Patch (dose and location) verified - Provider: Elena Betancourt RN) Transdermal, 2 TIMES DAILY, First dose o n Tue07/18/18 at 2330, Until Discontinued, Verify nicotine 21 mg/24 hr patch pantoprazole (PROTONIX) tablet 40 mg 092 5 (Given - Provider: Kayla Mclean RN) 1026 (Given - Provider: Elena claire RN) 40 mg, Oral, DAILY, First dose on Tue07/19/18 at 0900, Until Dis continued polyethylene glycol (MIRALAX) packet 17 g 1145 (Not Gi aleida - Provider: Vidya Miner - Reason: Patient/family refused) 0842 (Not Given - Provider: Yoav Shultz RN - Reason: NPO) 09 (Not Given - Provider: Elena Betancourt RN - Reason: Patient/family refused) 17 g, Oral, DAILY, First dose on 06/24 at 1145, Until Discontinued, Administer if no bowel movement within 48 hours to achieve: (1) One bowel movement at least every 48 hours, AND (2) without stra ining. If multiple PRN bowel medications ordered, start with polyethylene glycol, then lactulose, then oral bisacodyl, then bisacodyl suppository, then magnesium citrate, then tap water enema. Multiple medications may be given concomitantly for constipation., Routin e protamine injection 50 mg (COMPLETED) 14 00 (Given - Provider: Jie Buckner RN - Comment: per verbal order from Dr. Oneal) 50 mg, Intravenous, ONCE, 1 dose, Tue at 1230, Intra-Operative (Intra- Procedure), Routine senna-docusate (PERICOLACE) 8.6-50 mg per tablet 2 tab let 1145 (Not Given - Provider: Vidya Miner - Reason: Patient/family refused)2007 (Given - Provider: Darlin Phelan RN) 0900 (Not Given - Provider: Yoav tabares RN - Reason: See comment)2030 (Given - Provider: Jessenia Villeda RN) 0900 (Not Given - Provider: Elena Betancourt RN - Reason: Patient/family refused) 2 tablet, Oral, 2 TIMES DAILY, First dos e on Tue07/18/18 at 1145, Until Discontinued, Routine sertraline (ZOLOFT) tablet 50 mg 2008 (Given - Provider: Dolly Phelan RN) 2030 (Given - Provider: Jessenia Villeda RN) 50 mg, Oral, NIGHTLY, First dose on Tue07/18/18 at 2100, Until Discontinued, Routine sodium chloride 0.9 % flush 5 mL 2013 (Given - Provider: Dolly Phelan RN) 0900 (Not Given - Provider: Kayla Mclean RN - Reason: Contraindicated)2099 (Not Given - Provider: Jessenia Villeda RN - Reason: Contraindicated) 0900 (Not Given - Provider: Elena Betancourt RN - Reason: Loss of access) 5 mL, Intravenous, 2 TIMES DAILY, First dose on Tue07/18/18 at 2100, Until Discontinued, Recovery (Recovery-[facility]ospital Unit), Routine Continuous Medication Order 07/18/2018 07/19/2018 07/20/2018 sodium chloride 0.9% infusion 2341 (New Bag - Provider: Darlin Phelan RN) 100 mL/hr, at 100 mL/hr, Intravenous, CO NTINUOUS, Starting Tue07/19/18 at 0000, Until Holly 07/20/18 at 1254, Recovery ([facility]ospital Unit) PRN Medication Order 07/18/2018 07/19/2018 07/20/2018 acetaminophen (TYLENOL) tablet 650 mg 1519 (Given - Provider: Óscar Miner) 650 mg, Oral, EVERY 6 HOURS PRN, Startin g Tue07/18/18 at 1121, Until Holly 07/20/18 at 1254, Pain, Fever, Administer for temperature greater than or equal to 38.2 degrees celsius. Maximum daily dose of kailee taminophen from all sources not to exceed 4,000 mg., Routine bisacodyl (DULCOLAX) suppository 10 mg 10 mg, Rectal, DAILY PRN, Starting Tue at 1121, Until Holly 07/20/18 at 1254, Constipation, Administer if no bowel movement within 48 hours to achieve: (1) One bowel movement at least every 48 hour s, AND (2) without straining. If multipl e PRN bowel medications ordered, start with polyethylene glycol, then lactulose, then oral bisacodyl, then bisacodyl suppository, then magnesium citrate, then tap water enema. Multiple medications may b e given concomitantly for constipation., Routine dextrose 50% intravenous solution 25-50 mL(Linked Group 3) 25-50 mL (12.5-25 g), Intravenous, EVERY 1 HOUR PRN, Starting Tue07/18/18 at 1604, Until Holly 07/20/18 at 1254, Low blood sugar, For BG 50-70 mg/dL: [...] duration of the active insulin., Routine fentaNYL 50 mcg/mL multi-dose injection (CANCELED) 1245 (Given - Provider: Jie Buckner, HEAVEN)1256 (Given - Provider: Jie Buckner, RN)1306 (Given - Provider: Jie Buckner, HEAVEN) 25-50 mcg, Intravenous, EVERY 5 MIN PRN, Starting Tue07/19/18 at 1211, Until Tue07/19/18 at 1350, Pain, per unit protocol, - Start dose 50 mcg (reduce dose to 25 mcg if history of sedation sensitivity). - Titration dose 25-50 mcg IV, (based o n patient response) every 3 minutes PRN, to maintain procedural pain less than 2 per pain Scale. Maximum dose: 50 mcg/dose, 250 mcg/hour For use in Interventional Radiology (IR) only for procedural radha tion with direct provider supervision and verbal order., Angio/IR (Intra-Procedure), Routine glucagon (human recombinant) injection SolR 1 mg(Linked Group 3) 1 mg, Intramuscular, EVERY 1 HOUR PRN, S tarting Tue07/18/18 at 1604, Until Holly 07/20/18 at 1254, Low blood sugar, For BG 50-70 mg/dL: [...] Buccal, EVERY 30 MIN PRN, Start ing Tue07/18/18 at 1604, Until Holly 07/20/18 at 1254, Low blood sugar, For BG 50-70 mg/dL: [...] Routine iodixanol (VISIPAQUE) 320 mg iodine/mL injection 150 mL (COM PLETED) 1353 (Given - Provider: Lexi Blakely V) 150 mL, Intra-arterial, ONCE PRN, 1 dose , Starting Tue07/19/18 at 1413, Until Discontinued, Per Protocol, Routine lidocaine (XYLOCAINE) 10 mg/mL (1 %) injection 3 mg 3 mg (0.3 mL), Subcutaneous, ONCE PRN, 1 dose, Starting Tu07/18/18 at 1506, Until Holly 07/20/18 at 1254, for discomfort with PIV insertion, Recovery ([facility]ospital Unit), Routine midazolam (PF) (VERSED) multi-dose injection 0.5-1 mg (CANCE LED) 1245 (Given - Provider: Jie Buckner, HEAVEN)1256 (Given - Provider: Jie Buckner, HEAVEN)1306 (Given - Provider: Jie Buckner, HEAVEN) 0.5-1 mg, Intravenous, EVERY 3 MIN PRN, Starting Tue07/19/18 at 1211, Until Tue07/19/18 at 1350, Sleep, - Start dose; 1 mg (Reduce dose to 0.5 mg if history of sedation sensitivity). - Titration dose: 0 .5 mg - 1 mg (based on patient response) every 3 minutes PRN to obtain RASS score of -3. Maximum dose: 1 mg per dose, 5 mg/hour. For use in Interventional Radiology (IR) only for procedural sedation wit h direct provider supervision and verbal order., Angio/IR (Intra-Procedure), Routine ondansetron (ZOFRAN) injection 4 mg(Linked Group 4) 4 mg, Intravenous, EVERY 8 HOURS PRN, St arting 07/18/18 at 1506, Until Holly 07/20/18 at 1254, Nausea, May repeat times one in 30 minutes if ineffective. If multiple antiemetics are ordered, use onda nsetron first, Recovery ([facility]overy-Hospital Unit) ondansetron (ZOFRAN) tablet 4 mg(Linked Group 4) 4 mg, Oral, EVERY 8 HOURS PRN, Starting 07/18/18 at 1506, Until Holly 07/20/18 at 1254, Nausea, Vomiting, If multiple antiemetics are ordered, use ondansetron first. PO Preferred. If patient unable to take PO, may give IV if ordered. May repeat times one in 45 minutes if ineffective., Recovery ([facility]ospital Unit), Routine oxyCODONE (ROXICODONE) immediate release tablet 10 mg( Linked Group 5) 2006 (Given - Provider: Darlin Phelan RN) 0018 (Given - Provider: Darlin Phelan RN)0536 (Given - Provider: Darlin Phelan RN)1025 (Given - Provider: Yoav Shultz RN)1615 (Given - Provider: Yoav Shultz, HEAVEN)203 (Given - Provider: Jessenia Villeda RN) 0412 (Given - Provider: Elena allred RN) 10 mg, Oral, EVERY 4 HOURS PRN, Starting 07/18/18 at 1506, Until Holly 07/20/18 at 1254, Pain, moderate pain (4-6), May give additional 5 mg in 30 minutes once if pain not relieved., Routine oxyCODONE (ROXICODONE) immediate release tablet 15 mg( Linked Group 5) 2006 (See Alternative - Provider: Darlin Phelan RN) 17 (See Alternative - Provider: Darlin Phelan RN)05 (See Alternative - Provider: Darlin Phelan RN)1025 (See Alternative - Provider: Yoav Shultz RN)161 (See Alternative - Provider: Yoav Shultz RN) 041 (See Alternative - Provider: Avel Bustamante RN) 15 mg, Oral, EVERY 4 HOURS PRN, Starting 07/18/18 at 1506, Until Holly 07/20/18 at 1254, Pain, severe pain or opiate tolerant patient (7-10), Do not start patient with 15 mg dose. Do not give 15 mg if patient is opiate niave., Routine 2032 (See Alternative - Provider: Jose Lawrence) oxyCODONE (ROXICODONE) immediate release tablet 5 mg(L inked Group 5) 2006 (See Alternative - Provider: Darlin Phelan RN) 17 (See Alternative - Provider: Darlin Phelan RN)535 (See Alternative - Provider: Darlin Phelan RN)1024 (See Alternative - Provider: Yoav Shultz RN)161 (See Alternative - Provider: Yoav Shultz RN) 411 (See Alternative - Provider: Avel Bustamante RN) 5 mg, Oral, EVERY 4 HOURS PRN, Starting 07/18/18 at 1506, Until Holly 07/20/18 at 1254, Pain, mild pain (1-3), May give additional 5 mg in 30 minutes once if pain not relieved., Routine 2032 (See Alternative - Pr ovider: Jessenia Villeda RN) sodium chloride 0.9 % flush 5-20 mL 5-20 mL, Intravenous, EVERY 1 MIN PRN, S tarting 07/18/18 at 1506, Until Holly 07/20/18 at 1254, flush, Flush pertains to all indwelling lines. Flush per protocol found in the job aid using the link prov ided on this medication record., Recovery ([facility]ospital [facility] t), Routine Linked Groups Order Group 1: POCT Fingerstick Glucose (CANCELED) Routine, 4 TIMES DAILY BEFORE MEALS & AT BEDTIME, First occurrence on Tue07/18/18 at 1700, Until Specified
Consider choosing FOUR TIMES A DAY BEFORE MEALS AND AT BEDTIME as frequency fo r: Patients who have good hypoglycemia a wareness: -Patients who are eating meals during the day and sleeping at night -Patient who are otherwise stable And insulin lispro (HumaLOG) VIAL injection 1-4 UnitsJump to med 1-4 Units, Subcutaneous, 3 TIMES DAILY B EFORE MEALS, First dose on Tue07/18/18 at 1630, Until Discontinued
CORRECTION BOLUS Sensitive to insulin lean patient or total ra ly dose of all insulin needed to achieve glycemic control less than 30 units BG 140 - 160 Give 1 unit BG 161 - 200 Give 2 units BG 201 - 240 Give 3 units&n bsp; BG greater than 240, giv e 4 units and recheck BG in 2 [...] patch), Transdermal, DAILY, Fir st dose on Tue07/18/18 at 1145, Until Discontinued, Routine And nicotine (NICODERM CQ) 21 mg/24 hr patch Patch VerificationJump to med Transdermal, 2 TIMES DAILY, First dose o n Tue07/18/18 at 2330, Until Discontinued
Verify nicotine 21 mg/24 hr patch
And nicotine (NICODERM CQ) 21 mg/24 hr patch Patch RemovalJump to med Transdermal, DAILY, First dose on Tue at 1130, Until Discontinued
Remove nicotine 21 mg/24 hr patch
Group 3: glucose (GLUTOSE) 40% oral gelJump to med 15-30 g, Buccal, EVERY 30 MIN PRN, Start ing Tue07/18/18 at 1604, Until Holly 07/20/18 at 1254, Low blood sugar
For BG 50-70 mg/dL: [...] g), Intravenous, EVERY 1 HOUR PRN, Starting Tue07/18/18 at 1604, Until Holly 07/20/18 at 1254, Low blood sugar
For BG 50-70 mg/dL: [...] Intramuscular, EVERY 1 HOUR PRN, S tarting 07/18/18 at 1604, Until Holly 07/20/18 at 1254, Low blood sugar
For BG 50-70 mg/dL: [...] duration of the active insulin.
Routine Group 4: ondansetron (ZOFRAN) tablet 4 mgJump to med 4 mg, Oral, EVERY 8 HOURS PRN, Starting 07/18/18 at 1506, Until Holly 07/20/18 at 1254, Nausea, Vomiting
If multiple antiemetics are ordered, use ondansetron first. PO Preferred. If patient unable to take PO, may give IV if ordered. May repeat times one in 45 minutes if ineffective.
Recovery ([facility]overy[facility]ospital Unit), Routine Or ondansetron (ZOFRAN) injection 4 mgJump to med 4 mg, Intravenous, EVERY 8 HOURS PRN, St arting 07/18/18 at 1506, Until Holly 07/20/18 at 1254, Nausea
May repeat times one in 30 minutes if ineffective. If multiple antiemetics are ordered, use ondansetron first
Quan very (Recovery-Hospital Unit) Group 5: oxyCODONE (ROXICODONE) immediate release tablet 5 mgJump to med 5 mg, Oral, EVERY 4 HOURS PRN, Starting 07/18/18 at 1506, Until Holly 07/20/18 at 1254, Pain, mild pain (1-3)
May give additional 5 mg in 30 minutes once if pain not relieved.
Routine Or oxyCODONE (ROXICODONE) immediate release tablet 10 mgJump to med 10 mg, Oral, EVERY 4 HOURS PRN, Starting 07/18/18 at 1506, Until Holly 07/20/18 at 1254, Pain, moderate pain (4-6)
May give additional 5 mg in 30 minutes once if pain not relieved.
Routine Or oxyCODONE (ROXICODONE) immediate release tablet 15 mgJump to med 15 mg, Oral, EVERY 4 HOURS PRN, Starting 07/18/18 at 1506, Until Holly 07/20/18 at 1254, Pain, severe pain or opiate tolerant patient (7-10)
Do not start patient with 15 mg dose. & nbsp; Do not give 15 mg if patient is opiate niave.
Routine documented in this encounter Care Teams Student Ambassador Relationship Specialty Start Date End Date Joel Mccarthy MD PCP - General General Internal Medicine 06/29/18 [address] [place] [address] documented as of this encounter
--- OUTSIDE RECORDS SUMMARY | 2021-10-30 01:54 | XMS_ITS | Encounter Summary ---
:1960 Author Organization [facility] Address [facility] [address] [place] [address] Care Team Providers Name Role Phone Danielle Rojas MD Primary Care Provider Reason for Referral Diagnostic Test (Routine) - Closed Specialty Diagnoses / Procedures Referred By Contact Refer red To Contact Radiology Diagnoses Right leg pain Kylah Redd APRN [facility] Rad Ct Scan Procedures CT Angiogram Aorta Lower Extremity Runoff [facility] [place] [address] [place] [address] Referral ID Status Reason Start Date Expiration Date Visits V isits Requested Authorized [id number] Closed Specialty 06/27/2018 08/25/2018 1 1 Service Requested Reason for Visit Reason Comments Foot Pain PT HERE FOR FOOT/CALF PAIN P T HAS REST PAIN PT STATES HE CAN GET ABOUT 50 YARDS AND HE HAS TO STOP PT IS DIABETIC Auth/Cert Specialty Diagnoses / Procedures Referred By Contact Refer red To Contact Diagnoses Critical lower limb ischemia R CLI AND CELLULITIR LAEG Procedures EMERGENCY IPI Referral ID Status Reason Start Date Expiration Date Visits Requ ested Visits Authorized [id number] 1 1 Encounter Details Date Type Department Care Team Description 06/27/2018 Office Visit Vascular Surgery at Kylah Redd Ri ght leg pain; 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 FIRE WATCHER Claudication of lower extremity; [facility] tical lower limb ischemia Drive DR Rios [place] VASCULAR SURGERY [address] [place] [address] [phone] (work) Social History Tobacco Use Types Packs/Day Years Used Date Former Smoker 1 40 Smokeless Tobacco: Never Used Alcohol Use Standard Drinks/Week Comments Yes 4 (1 standard drink = 0.6 oz pure alcoho l) Sex Assigned at Date Recorded Not on file documented as of this encounter Last Filed Vital Signs Vital Sign Reading Time Taken Comments Blood Pressure 134/85 06/27/2018 9:01 AM EST Pulse 97 06/27/2018 9:01 AM EST Temperature - - Respiratory Rate 18 06/27/2018 9:01 AM EST Oxygen Saturation - - Inhaled Oxygen Concentration - - Weight 88.5 kg (195 lb) 06/27/2018 9:01 AM EST Height 167.6 cm (5' 6) 06/27/2018 9:01 AM EST Body Mass Index 31.47 06/27/2018 9:01 AM EST documented in this encounter Progress Notes Kylah Redd, L[employer] TOWER FIRE WATCHER - 06/27/2018 9:00 AM EST Images from the original note were not included. This is a new patient to the practice who is being evaluated for right foot pain and was referred byDanielle Rojas MD. Mr. Berry is a 57 yo male has a complicated medical history including aortoiliac occlusive diseaseand coronary disease. He experienced an NSTEMI and was evaluated with a cardiac cath at an outside hospital via a right arm approach because of the presence of aortoiliac disease. He then underwent CABG in June [address] [facility] with right GSV harvest. C/o 50 ft B calf pain with ambulation over several year. Over last year increase in right foot pain and last 3-4 weeks with pain in right foot at night and one week of right heel cracking, redness and pain with pressure. Denies fever, chills, chest pain, TIA's, CVA, DVT. History of bowel resection for diverticulitis. C/o SOB sleep apnea but does not use CPAP. Uses 3-4 pillows at night. Takes ASA and statin Continues tosmoke 1 ppd. Patient Active Problem List Diagnosis Code ??? Diabetes mellitus, type 2 E11.9 ??? Hyperlipidemia E78.5 ??? Osteoarthritis M19.90 ??? 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 Atherosclerosis of iliamna artery of right lower extremity with intermittent claudication I70.211 ??? Hypertension I10 ??? Financial difficulties--- barrier to medication use Z59.8 ??? Coronary artery disease I25.10 ??? S/P CABG (coronary artery bypass graft) Z95.1 ??? Leg pain, bilateral M79.604, M79.605 ??? Aortoiliac occlusive disease I74.09 PSxHx: Past Surgical History: Procedure Laterality Date ??? PRO CABG, ARTERIAL, TWO N/A 07/12/2016 @CABG, USING 2 CORONARY ARTERIAL GRAFTS (WRVU 39.88) performed by Valentino Arredondo MD at [facility] MAIN OR ??? PRO CABG, ARTERY-VEIN, TWO N/A 07/12/2016 @CABG, TWO VENOUS GRAFTS & ARTERIAL GRAFT (WRVU 7.93) performed by Valentino Arredondo MD at [facility] MAIN OR ??? PRO ENDOSCOPY W/VIDEO-ASST VEIN HARVEST, CABG Right 07/12/2016 ENDOSCOPIC HARVEST VEIN(S) FOR CABG (WRVU 0.31) performed by Valentino Arredondo MD at [facility] MAIN OR Family Hx: No family history on file. Social Hx: Social History Tobacco Use ??? Smoking status: Former Smoker Packs/day: 1.00 Years: 40.00 Pack years: 40.00 ??? Smokeless tobacco: Never Used Substance Use Topics ??? Alcohol use: Yes Alcohol/week: 2.4 oz Types: 4 Cans of beer per week Medications: Medications 12/15/16 1332 Medication Sig Taking? isosorbide mononitrate (IMDUR) 60 mg Tablet Sustained Release 24 hr take 1 tablet by mouth once daily furosemide (LASIX) 20 mg Tablet take 1 tablet by mouth once daily lisinopril (PRINIVIL;ZESTRIL) 5 mg Tablet Take 1 tablet by mouth daily. acetaminophen (TYLENOL) 500 mg Tablet Take 2 tablets by mouth every 6 hours as needed for Pain. aspirin 81 mg Tablet, Chewable Take 81 mg by mouth daily. atorvastatin (LIPITOR) 80 mg Tablet Take 1 tablet by mouth every evening. meTOPROLOL tartrate (LOPRESSOR) 100 mg Tablet Take 1 tablet by mouth 2 times daily. Insulin Syringe-Needle U-100 1 mL 31 gauge x 5/16 Syringe 1 Box by [facility]Non- Drug; Combo Route) route 2 times daily. buPROPion (WELLBUTRIN SR OR ZYBAN) 150 mg Tablet Sustained Release Take 150 mg by mouth 2 times daily. gabapentin (NEURONTIN) 400 mg Capsule Take 400 mg by mouth 3 times daily. glipiZIDE (GLUCOTROL) 10 mg Tablet Take 20 mg by mouth daily. metFORMIN (GLUCOPHAGE) 500 mg Tablet Take 500 mg by mouth 2 times daily (with meals). omeprazole (PRILOSEC) 40 mg Capsule, Delayed Release(E.C.) Take 40 mg by mouth daily. FLUoxetine (PROZAC) 40 mg Capsule Take 80 mg by mouth daily. Allergies: No Known Allergies Review of Systems: Constitutional (weight change, fever) - Denies Neuro (dizziness, seizures, numbness, tingling) - Denies Eyes (vision) - Denies Ears, nose, throat (hearing) - Denies Cardiovascular (CP) - Denies Respiratory (SOB) - SOB GI (abd pain, nausea, emesis, blood in stool) - h/o diverticulitis (hematuria, dysuria, frequency) - Denies Muscoloskeletal (extremity pain, weakness) - right foot pain Skin (ulcers, rashes) - right heel crack All other ROS negative Physical Exam: General: NAD, appears well Neuro: Alert and oriented, motor sensory grossly intact Lungs: CTA Heart: RRR Abd: Soft, NT, ND, no palpable pulsatile masses lower abd healed incision Extremity - [place], warm, right heel ulceration, brisk capillary refill, no edema Vascular: R L Carotid 2/2 bruit (n) 2/2 bruit (n) Radial 2/2 2/2 Femoral -/2 1/2 Popliteal -/2 -/2 DP -/2 -/2 PT -/2 -/2 REYMUNDO's Right ?Pressure (mm Hg) ?? REYMUNDO [...] to the previous exam on 12/14/2016. ?? Assessment/Plan; Mr. Berry is a 57 yo male has a complicated medical history including aortoiliac occlusive disease and coronary disease. He experienced an NSTEMI and was evaluated with a cardiac cath at an outside hospital via a right arm approach because of the presence of aortoiliac disease. He then underwent CABG in June [address] [facility] with right GSV harvest. C/o 50 ft B calf pain with ambulation over several year. Over last year increase in right foot pain and last 3-4 weeks with pain in rightfoot at night and one week of right heel cracking, redness and pain with pressure. Reymundo's today RABI with serve ischemia with PT 0.0, DP 0.34 and rest pain and heel cracks. L REYMUNDO stable. Right LE CLI, threaten limb. CTA abd with runoff today and RTC to see surgeon to review and recommendations. Hold metformin for next [address] Oneal Plan to admit IV antibx and OR tomorrow. Right iliac stent and fem endart. documented in this encounter Plan of Treatment Not on filedocumented as of this encounter Results CT Angiogram Aorta Lower [...] please contact e number below. Kylah Redd APRN IMG CT ORDERABLES Creatinine (06/27/2018 9:48 AM EST) P athologist Signature Creatinine 1.00 0.80 - JW AFIA 1.50 mg/dL [facility] Estimated GFR 83 >=60 [facility] mL/min/1.7 [facility] 3 m?? [facility] Comment: The eGFR was calculated using the CKD-EP I equation. As with all creatinine based estimates of kidney function, eGFR values calculated with the CKD-EPI equation are not accurate in patients wi th acute kidney failure, extremes of body mass or the acutely ill. http://[facility] eGFR 96 >=60 mL/min/1.73 m?? [facility] Comment: The eGFR was calculated using the CKD-EP I equation. As with all creatinine based estimates of kidney function, eGFR values calculated with the CKD-EPI equation are not accurate in patients wi th acute kidney failure, extremes of body mass or the acutely ill. http://[facility]ID[facility] Specimen Anatomical Collection Method Collection Time Receive d Time (Source) Location / / Volume Laterality Blood specimen 06/27/2018 9:48 AM 019 9:58 (specimen) EST AM EST Resulting Agency Comment Spec In Lab Elena Black APRN CHEMISTRY ORDERABLES Performing Organization Address City/State/[place] [address] documented in this encounter Visit Diagnoses Diagnosis Right leg pain Pain in limb Claudication of lower extremity Peripheral vascular disease, unspecified Critical lower limb ischemia Unspecified circulatory system disorder Right leg pain Pain in limb documented in this encounter Care Teams Stockholder Relationship Specialty Start Date End Date Danielle Rojas MD PCP - General Internal Medicine 07/21/16 06/28/[address] [place] [address] documented as of this encounter
--- OUTSIDE RECORDS SUMMARY | 2021-10-30 01:54 | XMS_ITS | Encounter Summary ---
:1960 Author Organization [facility] [place] [address] Care Team Providers Name Role Phone Danielle Rojas MD Primary Care Provider Encounter Details Date Type Department Care Team Description 06/27/2018 Orders Only Vascular Surgery at Fer[facility] Tiffany L eg pain, bilateral; [facility] Rachell, RN Critical [place] [phone] Social History Tobacco Use Types Packs/Day Years Used Date Former Smoker 1 40 Smokeless Tobacco: Never Used Alcohol Use Standard Drinks/Week Comments Yes 4 (1 standard drink = 0.6 oz pure alcoho l) Sex Assigned at Date Recorded Not on file documented as of this encounter Plan of Treatment Scheduled Orders Name Type Priority Associated Diagnoses Order S chedule ENDARTERECTOMY, Procedures Routine One Time for 1 COMMON FEMORAL W OR Occurren saad starting W/O PATCH GRAFT 06/27/2018 u ntil 06/27/2018 REVSC OPN\PRQ ILIAC Procedures Routine One Time for 1 ART W\STNT PLMT & Occurrence s starting ANGIOP SAME VSL 06/27/2018 u ntil 06/27/2018 documented as of this encounter Visit Diagnoses Diagnosis Leg pain, bilateral Pain in limb Critical lower limb ischemia Unspecified circulatory system disorder documented in this encounter Care Teams Ui Application Developer Relationship Specialty Start Date End Date Danielle Rojas MD PCP - General Internal Medicine 07/21/16 06/28/[address] [place] [address] documented as of this encounter
--- OUTSIDE RECORDS SUMMARY | 2021-10-30 01:54 | XMS_ITS | Encounter Summary ---
:1960 Author Organization [facility] [place] [address] Care Team Providers Name Role Phone Danielle Rojas MD Primary Care Provider Encounter Details Date Type Department Care Team Description 06/16/2018 Orders Only Vascular Surgery at Tiffany Ferrera of foot, [facility] A, [place] [phone] Social History Tobacco Use Types Packs/Day Years Used Date Former Smoker 1 40 Smokeless Tobacco: Never Used Alcohol Use Standard Drinks/Week Comments Yes 4 (1 standard drink = 0.6 oz pure alcoho l) Sex Assigned at Date Recorded Not on file documented as of this encounter Plan of Treatment Not on filedocumented as of this encounter Results REYMUNDO, legs, multiple levels (06/27/2018 8:23 AM EST) Component Value Ref Test Analysis Performed At [facility] Range Method Time Signature VB Text Department: Vascular Surgery Lab [facility] Report Patient: [id number] (OLEG LORENZO) CPT: 14182 ICD10: M79.673;I73.9 Referring Physician: GRIFFIN PÉREZ ?? Phone: Indications: 57 year old diabetic male with PAD, bilateral hip, calf and foot pain/rest pain RIGHT > LEFT, ? peripheral perfusion Diabetes mellitus: Yes ICD10 Diagnosis Code: M79.673, I73.9 Findings: Right ?Pressure (mm Hg) ?? REYMUNDO ??Waveform ? TBI ?? Brachial Artery ?150 ? Dorsalis Pedis (Ankle) Arter y ?54 ?0.34 ??Monophasic ? Posterior Tibial (Ankle) Art rose ??0 ? 0.00 ??Occluded ? Great Toe ?9 ? 0.06 ?? Left ? Pressure (mm Hg) ?? REYMUNDO ??Waveform ?? TBI ?? Brachial Artery ?157 ? Dorsalis Pedis (Ankle) Arter y ?90 ?0.57 ??Biphasic ? Posterior Tibial (Ankle) Art rose ??99 ?0.63 ??Biphasic ? Great Toe ?90 ?0.57 ?? Interpretation: RIGHT: Severe lower extremity arterial occlusive disea se identified at rest. The posterior tibial artery is occluded at the ankle b y duplex. The dorsalis pedis artery is occluded on the dorsum o f the mid foot by duplex and is patent at the level of the ankle with monophasi c Doppler waveforms and low velocities (8 cm/s). Significant deterioration in PT REYMUNDO and toe- brachial index with no significant change in DP REYMUNDO compared to the previous exam o n 12/14/2016. LEFT: Moderate lower extremity arterial occlusiv e disease identified at rest. Significant deterioration in ABIs with an additional decreas e in the toe-brachial index when compared to the previous exam on 11/24. Previous ABIs with change from previous value: Date ?RIGHT DP ?? RIGHT PT ?? RT GR TOE ??RT Sec T OE ??0.70 ? 0.68 ? 0.47 ? ---- ??0.74(+.04) 0.73(+.05) 0.50(+.03) ---- ??0.40(-.34) 0.36(-.37) 0.46(-.04) ---- Current ? 0.34(-.06) 0.00(-.36) 0.06(-.40) ---- Date ?LEFT DP ?LEFT PT ?LT GR TOE LT Sec T OE ??0.80 ? 0.82 ? 0.72 ? ---- ??0.91(+.11) 0.94(+.12) 0.88(+.16) ---- ??0.84(-.07) 0.83(-.11) 0.67(-.21) ---- Current ? 0.57(-.27) 0.63(-.20) 0.57(-.10) ---- Electronically Signed by: JHONNY COSTA MD on 2018-06-28 07: 17:18 PM VB Text End of Report [facility] Report Specimen (Source) Anatomical Collection Method Collection Time Re ceived Time Location / / Volume Laterality 06/27/2018 8:23 AM EST Griffin Pérez MD VASCULAR ORDERABLES Performing Organization Address City/State/ZIP Code Phon e Number [facility] documented in this encounter Visit Diagnoses Diagnosis Pain of foot, unspecified laterality documented in this encounter Care Teams Assault Boat Coxswain Relationship Specialty Start Date End Date Danielle Rojas MD PCP - General Internal Medicine 07/21/16 06/28/[address] [place] [address] documented as of this encounter
--- OUTSIDE RECORDS SUMMARY | 2021-10-30 01:54 | XMS_ITS | Encounter Summary ---
:1960 Author Organization [facility] Address [address] [place] [address] Care Team Providers Name Role Phone Danielle Rojas MD Primary Care Provider Encounter Details Date Type Department Care Team Description 08/17/2016 Hospital Encounter XRay at [facility] Valentino Pedro S/Archie CABG (coronary [address] [place] [address] Dr Archie MD artery bypass graft) [facility] [phone] [place] [phone] [place] [address] Social History Tobacco Use Types Packs/Day Years Used Date Former Smoker 1 40 Smokeless Tobacco: Never Used Comments: I've tried multiple times Alcohol Use Standard Drinks/Week Comments Yes 4 [...] Misc.(Non-Drug; Combo 1 mL 31 gauge x 09/07 Route) route 2 times Syringe daily. gabapentin [...] (LOPRESSOR) 100 mg 2 times daily. Tablet senna-docusate Take 2 tablets by 60 tablet 11 07/16/2016 (PERICOLACE) 8.6-50 mouth daily as needed mg Tablet for Constipation. buPROPion (WELLBUTRIN Take 150 mg by mouth [...] Name Priority Date/Time Associated Diagnosis Comme nts XR CHEST PA AND Routine 08/17/2016 12:13 PM S/P CABG (coronary Results for this LATERAL EDT artery bypass graft) procedu re are in the results section. documented in this encounter Results XR Chest PA & Lateral (Generic) (08/17/2016 12:13 PM EDT) Anatomical Region Laterality Modality Chest N/A Digital Radiography Specimen (Source) Anatomical Location Collection Method / Collectio n Time Received Time / Laterality Volume Impressions 08/17/2016 12:35 PM EDT Tiny residual bilateral pleural effusions Narrative 08/17/2016 12:35 PM EDT EXAMINATION: XR CHEST PA AND LATERAL (GENERIC) CLINICAL HISTORY: s/p cabg TECHNIQUE: PA and lateral COMPARISON: 07/15/2016 FINDINGS: Heart and mediastinum are within normal limits. Stable postoperative findings in the mediastinum. Lungs are clear. Stable tiny bilateral pleural effusions. No pulmonary edema or pneumothorax. Aeratio n of lung bases is improved since prior study Procedure Note Neha Uriarte MD - 08/17/2016Formattin g of this note might be different from the original. EXAMINATION: XR CHEST PA AND LATERAL (GE NERIC) CLINICAL HISTORY: s/p cabg TECHNIQUE: PA and lateral COMPARISON: 07/15/2016 FINDINGS: Heart and mediastinum are within normal limits. Stable postoperative findings in the mediastinum. Lungs are clear. Stable tiny bilateral pleural effusions. No pulmonary edema or pneumothorax. Aeratio n of lung bases is improved since prior study IMPRESSION Tiny residual bilateral pleural effusion s Valentino P Mayela BAKER IMG DX ORDERABLES documented in this encounter Visit Diagnoses Diagnosis S/P CABG (coronary artery bypass graft) Postsurgical aortocoronary bypass status documented in this encounter Care Teams Head Of Visual Merchandising Relationship Specialty Start Date End Date Danielle Rojas MD PCP - General Internal Medicine 07/21/16 06/28/[address] [place] [address] documented as of this encounter
--- OUTSIDE RECORDS SUMMARY | 2021-10-30 01:54 | XMS_ITS | Encounter Summary ---
:1960 [place] [address] Care Team Providers Name Role Phone Danielle Rojas MD Primary Care Provider Reason for Visit Consultation (Urgent) - Closed Specialty Diagnoses / Procedures Referred By Contact Refer red To Contact Vascular Surgery Diagnoses TYPE 2 OM, VASCULAR DISEASE FOOT PAIN Joel Mccarthy MD [facility] Vascular Surg [address]v [address] [place] [phone] Phone: Referral ID Status Reason Start Date Expiration Date Visits V isits Requested Authorized [id number] Closed Consult, 06/13/2018 06/13/2019 2 2 Test & Treat [facility] Encounter Details Date Type Department Care Team Description 06/27/2018 Tech Visit Vascular Lab at Hanh Barker in of foot, [facility] [phone] Social History Tobacco Use Types Packs/Day [...] Diagnosis Comme nts REYMUNDO, LEGS, MULTIPLE Routine 06/27/2018 8:23 AM Pain of foot, R esults for this LEVELS EST unspecified procedure are i n laterality the results section. documented in this encounter Results REYMUNDO, legs, multiple levels (06/27/2018 8:23 AM EST) Component Value Ref Test Analysis Performed At [facility] Range Method Time Signature VB Text Department: Vascular Surgery Lab [facility] Report Patient: [id number] (OLEG LORENZO) CPT: 06272 ICD10: M79.673;I73.9 Referring Physician: GRIFFIN PÉREZ ?? [...] laterality documented in this encounter Care Teams Moisture Meter Operator Relationship Specialty Start Date End Date Danielle Rojas MD PCP - General Internal Medicine 07/21/16 06/28/[address] [place] [address] documented as of this encounter
--- OUTSIDE RECORDS SUMMARY | 2021-10-30 01:55 | XMS_ITS | Encounter Summary ---
:1960 Author Organization [facility] [place] [address] Care Team Providers Name Role Phone Danielle Rojas MD Primary Care Provider Reason for Referral Consultation (Routine) - Closed Specialty Diagnoses / Procedures Referred By Contact Refer red To Contact Endocrinology Diagnoses Type 2 diabetes mellitus with hypoglycemia without coma, without long-term current use of insulin Huber Womack [facility] [address], [place] [facility] [place] [address] CARDIOTHORACIC Phone: [place] [address] Referral ID Status Reason Start Date Expiration Date Visits V isits Requested Authorized [id number] Closed Specialty 08/17/2016 08/17/2017 1 1 Service Requested Encounter Details Date Type Department Care Team Description 08/17/2016 Office Visit Cardiac Surgery at [facility] Perip heral artery disease--- severe bilateral iliac and [employer]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 PRO[employer] 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 disease; [facility] MD Archie Essential hypertension; [facility] Typ e 2 diabetes mellitus with hypoglycemia without coma, without long-term current use of insulin; Drive S/P CABG x 4 [place], [place] CARDIOTHORACIC [address] SURGERY [phone] [place], [place] [address] Social History Tobacco Use Types Packs/Day Years Used Date Former Smoker 1 40 Smokeless Tobacco: Never Used Comments: I've tried multiple times Alcohol Use Standard Drinks/Week Comments Yes 4 (1 standard drink = 0.6 oz pure alcoho l) Sex Assigned at Date Recorded Not on file documented as of this encounter Last Filed Vital Signs Vital Sign Reading Time Taken Comments Blood Pressure 118/72 08/17/2016 1:16 PM EDT Pulse 61 08/17/2016 1:16 PM EDT Temperature - - Respiratory Rate - - Oxygen Saturation 100% 08/17/2016 1:16 PM EDT Inhaled Oxygen Concentration - - Weight 77.1 kg (170 lb) 08/17/2016 1:16 PM EDT patient stated Height 167.6 cm (5' 6) 08/17/2016 1:16 PM EDT Body Mass Index 27.44 08/17/2016 1:16 PM EDT documented in this encounter Progress Notes Huber Womack PA - 08/17/2016 1:40 PM EDT Cardiac Surgery Clinic Note: ID: [id number] Cardiac Surgery Attending: Dr. Pedro Store Operations Specialist: Dr. Jiménez PCP: Zay Montilla MD S: s/p CABG x 4 on 07/12/16 uncomplicated hospital course. He was discharged home on POD#4. He has been doing well since then. He feels well. He states he is not smoking and has not had a cigarette since 07/09/16. He is using his nicotine patch. He has seen Dr. Jiménez, Cardiology, a week ago. He was placed on lisinopril for HTN. He is tolerating this well. He states that he has been having some issueswith his glucose almost on a daily basis where it is low around lunch. He has seen his PCP. He wouldlike to see a intake specialist. He is currently taking lantus 20 in the AM and 15 in the PM. The hypoglycemia he reports occurs when his glucose falls below 100. He gets lightheaded and confused. When he eats candy he feels better. He has not passed out. Insulin is new to him since surgery. He was followed as an inpatient by the diabetes team. He is dorothy a regular diet. Sleeping better. Ambulating.Having regular BM's. Denies n/v, fever, chills, SOB, CP, abd pain. EKG: Shows NSR CXR: Demonstrates well inflated lungs b/l. Sternal wires intact. No pleural effusion. Current medications: Outpatient Prescriptions Marked as Taking for the 08/17/16 encounter (Office Visit) with [facility] Pedro MD Medication Sig Dispense Refill ??? furosemide (LASIX) 20 mg Tablet take 1 tablet by mouth once daily 0 ??? lisinopril (PRINIVIL;ZESTRIL) 5 mg Tablet Take 1 tablet by mouth daily. 90 tablet 11 ??? insulin NPH - insulin regular 70/30 (NOVOLIN MIX 70/30) Suspension Inject 15-25 Units subcutaneously 2 times daily (before meals). 25 units before breakfast and 15 units before dinner 3 mL 3 ??? acetaminophen (TYLENOL) 500 mg Tablet Take [...] 2 times daily. 60 tablet 12 ??? senna-docusate (PERICOLACE) 8.6-50 mg Tablet Take 2 tablets by mouth daily as needed for Constipation. 60 tablet 11 ??? Insulin Syringe-Needle U-100 1 mL 31 gauge x 5/16 Syringe 1 Box by [facility].(Non-Drug; Combo Route) route 2 times daily. 100 Syringe 3 ??? buPROPion (WELLBUTRIN SR OR ZYBAN) 150 mg Tablet Sustained Release Take 150 mg by mouth 2 times daily. ??? gabapentin (NEURONTIN) 400 mg Capsule Take 400 mg by mouth 3 times daily. ??? glipiZIDE (GLUCOTROL) 10 mg Tablet Take 20 mg by mouth daily. ??? metFORMIN (GLUCOPHAGE) 500 mg Tablet Take 500 mg by mouth 2 times daily (with meals). ??? omeprazole (PRILOSEC) 40 mg Capsule, Delayed Release(E.C.) Take 40 mg by mouth daily. ??? FLUoxetine (PROZAC) 40 mg Capsule Take 80 mg by mouth daily. O: Vitals: 08/17/16 1316 BP: 118/72 Pulse: 61 SpO2: 100% Weight: 77.1 kg (170 lb) Height: 167.6 cm (5' 6) Physical exam: General: A&Ox3. NAD. Lungs: CTABL. Heart: RRR. S1 and S2 heard. Abdomen: +BS. NT, ND. Ext: Moves all extremities. Warm, pink, well perfused. Incisions: C/D/I Assessment/Plan: s/p CABG x 4 on 07/12/16 uncomplicated hospital course. He was discharged home on POD#4. He has been having issues with his insulin and hypoglycemic effects. He has been taking 20 units lantus in am and 15 units in pm. He will now take 15 units in am and 15 units in pm since his hypoglycemic symptoms have been occurring around lunch. I will send in a referral to endocrinology for insulin/diabetes management as an outpatient. If he does not hear from the team within the week he was instructed to call his PCP for another referral. He is also going to get a hold of Vascular Surgery for follow-up for his PAD. He has been followed in the past for this. He is not smoking. I congratulated him on this and discussed with him risks if he were to continue to smoke in the future. He understands. Medications changes: none -May resume driving. -May resume unrestricted activities with exception of heavy lifting > 20# for four more weeks. -Patient to follow up with PCP to resume management of chronic medical issues. -Patient to contact PCP for future refill needs. -Patient to follow-up with Store Operations Specialist as discussed/arranged. -We would happy to see patient on an as needed basis going forward. DW Attending Surgeon. Signed: KIT MCGOVERN [facility] Section of Cardiac Surgery 08/17/2016 documented in this encounter Plan of Treatment Scheduled Referrals Name Type Priority Associated Diagnoses Order S chedule Referral to Outpatient Routine Type 2 diabetes Ordered: Endocrinology Referral mellitus with 08/17/2016 hypoglycemia without coma, without long-term current use of insulin documented as of this encounter Procedures Procedure Name Priority Date/Time Associated Diagnosis Comme nts EKG 12-LEAD Routine 08/17/2016 1:28 PM Peripheral artery Resu lts for this EDT disease--- severe procedure are in the bilateral iliac and results section. [employer]ER disease documented in this encounter Results EKG 12 Lead (08/17/2016 1:28 PM EDT) Component Value Ref Range Test Analysis Performed Pathologis t Method Time At Signature Ventricular rate 60 BPM MUSE SYSTEM Atrial Rate 60 BPM MUSE SYSTEM P-R Interval 142 ms MUSE SYSTEM QRS Duration 102 ms MUSE SYSTEM Q-T Interval 428 ms MUSE SYSTEM QTC Calculated 428 ms MUSE SYSTEM (Bezet) Calculated P [place] 70 degrees MUSE SYSTEM Calculated R [place] 62 degrees MUSE SYSTEM Calculated T [place] 151 degrees MUSE SYSTEM INTERPRETATION Normal sinus rhythm MUSE SYSTEM Possible Left atrial enlargement Possible Septal infarct (cited on or before 13-JUL-2016) Abnormal ECG When compared with ECG of 05-AUG-2016 10:16, Nonspecific T wave abnormality has repla talisha inverted T waves in Inferior leads Confirmed by MD Erasmo, Shaheed ([id number]) on 08/18/2016 8:41:56 A M Specimen Anatomical Collection Method Collection Time Receive d Time (Source) Location / / Volume Laterality 08/17/2016 1:28 PM 7 8:41 EDT AM EDT [facility] MD ECG ORDERABLES Performing Organization Address City/State/ZIP Code Phon e Number MUSE SYSTEM documented in this encounter Visit Diagnoses Diagnosis Peripheral artery disease--- severe bila teral iliac and 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
--- OUTSIDE RECORDS SUMMARY | 2021-10-30 01:55 | XMS_ITS | Encounter Summary ---
:1960 Author Organization [facility] Address [address] [place] [address] Care Team Providers Name Role Phone Danielle Rojas MD Primary Care Provider Encounter Details Date Type Department Care Team Description 08/05/2016 Office Visit Cardiology at [facility] Charlie Jiménez, Coronary artery disease, ang logan presence unspecified, unspecified vessel or lesion type, unspecified whether little traverse or transplanted heart; [facility] Tobacco abuse; [facility] Hyperlipidemia, unspecified hyperlipidemia type; [place] [place] [facility] Peripheral artery disease--- severe bila teral iliac and HAND LACER disease; [id number] [place] [address] Essential hypertension; [phone] S/P CABG (coron ute artery bypass graft) (Work) Social History Tobacco Use Types Packs/Day Years Used Date Current Every Day Smoker 1 40 Smokeless Tobacco: Never Used Comments: I've tried multiple times Alcohol Use Standard Drinks/Week Comments Yes 4 (1 standard drink = 0.6 oz pure alcoho l) Sex Assigned at Date Recorded Not on file documented as of this encounter Last Filed Vital Signs Vital Sign Reading Time Taken Comments Blood Pressure 156/70 08/05/2016 10:04 AM EDT Pulse 62 08/05/2016 10:04 AM EDT Temperature - - Respiratory Rate - - Oxygen Saturation 98% 08/05/2016 10:04 AM EDT Inhaled Oxygen Concentration - - Weight 75.8 kg (167 lb) 08/05/2016 10:04 AM EDT Height 167.6 cm (5' 6) 08/05/2016 10:04 AM EDT Body Mass Index 26.95 08/05/2016 10:04 AM EDT documented in this encounter Progress Notes Charlie Jiménez MD - 08/05/2016 10:20 AM EDT Images from the original note were not included. [facility] [place] [address] [place] [id number] CARDIOLOGY OUTPATIENT NOTE PRIMARY CARE PROVIDER: Danielle Rojas MD REFERRING PROVIDER: Zay Montilla PROBLEM LIST: Patient Active Problem List Diagnosis ??? S/P CABG (coronary artery bypass graft) ??? Left groin hematoma-- noted 07/11/2016 Left side. Post cath. ??? Peripheral artery disease--- severe bilateral iliac and HAND LACER disease ?? Noted on aortogram done in supervisor cytogenetic laboratory Jun 2016. 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 ??? Hypertension ??? Financial difficulties--- barrier to medication use ??? Coronary artery disease 06/2016: NSTEMI. Cath showing 3vD. Surgery recommended. ??? Non ST elevation MD due to severe 3vD-- awaiting for CABG Tuesday ??? Diabetes mellitus, type 2 ??? Tobacco abuse ??? Hyperlipidemia ??? Osteoarthritis MEDICATIONS: Current Outpatient Prescriptions Medication Sig Dispense Refill ??? insulin NPH - insulin regular 70/30 [...] gauge x 5/16 Syringe 1 Box by [facility].(Non-Drug; Combo Route) route 2 times daily. 100 [...] Capsule Take 80 mg by mouth daily. ??? lisinopril (PRINIVIL;ZESTRIL) 5 mg Tablet Take 1 tablet by mouth daily. 90 tablet 11 ??? isosorbide mononitrate (IMDUR) 60 mg Tablet Sustained Release 24 hr Take 1 tablet by mouth everymorning. (Patient not taking: Reported on 08/05/2016) 30 tablet 12 No current facility-administered medications for this visit. Subjective: Patient ID: Oleg Berry is a 55 y.o. male. HPI This is Mr. Berry's first visit to outpatient Cardiology. He recently underwent CABG surgery. He is a 55 y.o. year old male smoker with type 2 DM (longstanding). He presented in mid June with unstable angina and a positive troponin; cath revealed severe 3vd with mildly decreased LV function. He has severe PVD as well. Major Procedures/Operations: 07/12/16 s/p CABG x 4 (FOSS to LAD, SVG to OM, SVG to diag, LEAH to RCA) by Dr. Valentino Pedro. He tolerated the procedure and was brought to the Cardiovascular Intensive Care Unit for recovery. Hewas extubated from the ventilator on the day of surgery. All drips were weaned to off. Routine postop erative and home medications were started and a diet was advanced. He was started on beta blockade and this was optimized. Diuretics were started and he responded appropriately. By postoperative day # 2 he was transferred to the Intermediate Cardiac Care Unit for continued rehabilitation. All tubes, lines, and epicardial pacing wires were removed without incident. He voided normally after his Burch was removed. He was seen by Physical Therapy and Cardiac Rehabilitation. Sternal precaution education was provided. His discharge plan at this time is to home. The remainder of the his hospital course was uneventful and by postoperative day #4 he had met all criteria for discharge. Pain was controlled on oral medications. He had walked 5 minutes and gone up and down stairs. He was tolerating a regular diet and had a bowel movement. He went to his local hospital shortly after discharge for further diuresis. Since then, he has been doing well. He is scheduled to start outpatient cardiac rehab. He has been active at home, doing house work. He has been taking walks with his dog. He continue to have leg discomfort with exercise (not new). No chest pains, breathing stable. No swelling. He is taking his medications regularly; trying to adhere to a heart healthy diet. Review of Systems Constitutional: Negative. Respiratory: Negative. Cardiovascular: Negative. Gastrointestinal: Negative. Endocrine: Negative. Genitourinary: Negative. Musculoskeletal: Negative. Neurological: Negative. Hematological: Negative. Family History: Father had an MD in his 50s Denies any other family history of heart problems ?? 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 He appears well- developed and well-nourished. HENT: Head: Normocephalic and atraumatic. Neck: No JVD present. Carotids 2+, no bruits. Cardiovascular: Normal rate, regular rhythm, normal heart sounds and intact distal pulses. No murmur heard. Chest is healing nicely, s/p sternal incision. Pulmonary/Chest: Effort normal and breath sounds normal. Abdominal: Soft. Bowel sounds are normal. Musculoskeletal: He exhibits no edema or tenderness. Neurological: He is alert and oriented to person, place, and time. Skin: Skin is warm and dry. Vitals: 08/05/16 1004 BP: 156/70 Pulse: 62 Recent Results (from the past 72 hour(s)) EKG 12 Lead Result Value Ventricular rate 61 Atrial Rate 61 P-R Interval 146 QRS Duration 98 Q-T Interval 434 QTC Calculated (Bezet) 436 Calculated P [place] 74 Calculated R [place] 70 Calculated T [place] -168 INTERPRETATION Normal sinus rhythm Possible Left atrial enlargement Septal infarct (cited on or before 13-JUL-2016) T wave abnormality, consider inferolateral ischemia Abnormal ECG When compared with ECG of 13-JUL-2016 07:32, Vent. rate has decreased BY [address] no longer elevated in Lateral leads T wave inversion now evident in Lateral leads Echo, 06/2016: SUMMARY:?? 1. The left ventricular chamber size is [...] findings as noted in the full report. ?? Findings : ?? Left Ventricle: The left ventricular chamber size is normal. Moderate concentric left ventricular hypertrophy is observed. There is no evidence of LVOT obstruction. No ventricular septal defect is visualized. There is normal global left ventricular systolic function. The quantitative left ventricular ejection fraction by biplane Bruner's method is 56%. There are left ventricular segmental wall motion abnormalities present, as shown in the diagram below. Left ventricular diastolic function is probably normal. Doppler assessment is consistent with normal left sided filling pressure. The basal inferior, mid inferior, apical lateral, and apical inferior wall segments are hypokinetic (score 2). The basal anterolateral, basal inferolateral, mid anterolateral, and mid inferolateral wall segments are akinetic (score 3). Overall wallmotion score index is 1.75 ?? Left Atrium: The left atrium is normal in size. There is no evidence of a patent foramen ovale by color Doppler. ?? Right Ventricle: The right ventricle is normal in size. Right ventricular global systolic function is normal. Pulmonary artery hypertension could not be assessed due to inadequate tricuspid regurgitation jet. The estimated right atrial pressure is 3 mmHg. ?? Right Atrium: The right atrium is [...] pericardial fat pad is visualized. ?? Aorta: The aortic root is normal in size. The ascending aorta is normal in size. ?? Pulmonary Artery: The main pulmonary artery appears normal. ?? Venous: The inferior vena cava appears normal in size. There is a greater than 50% respiratory change in the inferior vena cava dimension. The flow pattern of the pulmonary veins appear normal. ?? Cardiac cath, 06/2016: Estimated LV Ejection Fraction: 50% ? Coronary Angiography: Dominance: Right ? Left Main There was mild diffuse disease of the entire vessel segment of the left main artery. ? Left Anterior Descending There was mild diffuse disease of the entire vessel segment of the left anterior descending artery (LAD). The mid segment of the LAD had a single discrete 65% stenosis. ? There was a 90% hazy single discrete stenosis of the ostial segment of the first diagonal branch (Diagonal 1) of the LAD. The Diagonal 1 was large. ? Left Circumflex There was mild diffuse disease of the entire vessel segment of the left circumflex artery (LCX). ? There was a 65% hazy long segmental stenosis of the proximal segment of the first obtuse marginal branch (OM1) of the LCX. ? Right Coronary Artery There was mild diffuse disease of the entire vessel segment of the right coronary artery (RCA). The mid segment of the RCA had a long segmental 65% stenosis. ? Vascular Access: Vascular Access Angiogram: A selective angiogram at the left femoral artery revealed severe diffuse disease. A closure device is contraindicated due to evidence of obstructive peripheral vascular disease. ? Vascular Access Management: Manual Compression of the left femoral artery access site was performed. ? Conclusions: * Three vessel coronary artery disease (LAD, LCX and RCA) * Mildly decreased left ventricular ejection fraction (EF-50%) * Severe lower extremity PVD with high grade external iliac artery and common femoral artery disease. * Patent subclavian arteries and JOSE's bilaterally. ? Complications/Events: The patient had no complications during these procedures. ? Recommendations: Based upon the results of this procedure, it was recommended that medical therapy be considered. ? Comments: 3Vd in a patient with CP 2 days ago and positive troponin. Consider surgical revascularization. ? Thoracic aortography was performed in PUERTO RICAN projection to evalaute for PAD in a patient needing FOSS and LEAH for CABG. The ascending thoracic aorta is normal in size. There is a three vesel arch with an inominate, left common carotid and left subclavian; all are free from significant disease.The LEAH and FOSS are widley patent. The descending thoracic aorta is patent. ? Abdominal aortography was perforrmed using an angled pigtail and power injection of contrast. The distal abdominal aorta is midline with moderate disease. The right and left common iliac arteries are patent. The left common iliac has 40% distal stenosis. The right external iliac is severely diseased with a 90% stenosis. The left external iliac artery is severly diseased throughout. The right and left common femoral arteries are severely diseased. Assessment and Plan: Diabetes mellitus, type 2 Continues to need tight control. Will work on this with his PCP. He is on insulin + oral therapies. Tobacco abuse Thankfully, he has successfully stopped smoking. I congratulated him and he will continue to remain smoke-free. Hyperlipidemia Continue on high-dose statin therapy, now s/p MD and CABG. Peripheral artery disease--- severe bilateral iliac and HAND LACER disease Known PVD with disease of bilateral external iliac and CFAs. He has stopped smoking. Continue with medical therapies for now. Hypertension BP a bit elevated today. He should continue with metoprolol. Given his DM, HTN and CAD, suggest adding ACEi (will start lisinopril 5 mg daily). S/P CABG (coronary artery bypass graft) S/p CABG, doing very well. LVEF preserved. No angina or heart failure. We discussed need for aggressive secondary prevention with diet / exercise / cardiac rehab / medical therapy. He should take aspirin, statin, bblocker and ACEi. Diabetic control is imperative. I do not think he needs a diuretic at this point. Today, his chest tube sutures were removed by our surgeon. His wound looks great. Thank you for the opportunity to participate in this patient's cardiovascular care. All questions were answered and I look forward to the next visit. Cc: Dr. Renae, Vascular Surgeon documented in this encounter Miscellaneous Notes Assessment & Plan Note - Charlie Jiménez MD - 08/05/2016 10:33 AM EDT Associated Problem(s): S/P CABG (coronary artery bypass graft) S/p CABG, doing very well. LVEF preserved. No angina or heart failure. We discussed need for aggressive secondary prevention with diet / exercise / cardiac rehab / medical therapy. He should take aspirin, statin, bblocker and ACEi. Diabetic control is imperative. I do not think he needs a diuretic at this point. Today, his chest tube sutures were removed by our surgeon. His wound looks great. Assessment & Plan Note - Charlie Jiménez MD - 08/05/2016 10:31 AM EDT Associated Problem(s): Hypertension BP a bit elevated today. He should continue with metoprolol. Given his DM, HTN and CAD, suggest adding ACEi (will start lisinopril 5 mg daily). Assessment & Plan Note - Charlie Jiménez MD - 08/05/2016 10:30 AM EDT Associated Problem(s): Atherosclerosis of little traverse artery of right lower extremity with intermittent claudication Known PVD with disease of bilateral external iliac and CFAs. He has stopped smoking. Continue with medical therapies for now. He continues to have discomfort. I will set him up to see Dr. Maurice ([facility]); he has seen him in the past. Assessment & Plan Note - Charlie Jiménez MD - 08/05/2016 10:29 AM EDT Associated Problem(s): Hyperlipidemia Continue on high-dose statin therapy, now s/p MD and CABG. Assessment & Plan Note - Charlie Jiménez MD - 08/05/2016 10:29 AM EDT Associated Problem(s): Tobacco abuse (Resolved 12/15/2016) Thankfully, he has successfully stopped smoking. I congratulated him and he will continue to remain smoke-free. Assessment & Plan Note - Charlie Jiménez MD - 08/05/2016 10:28 AM EDT Associated Problem(s): Diabetes mellitus, type 2 Continues to need tight control. Will work on this with his PCP. He is on insulin + oral therapies. documented in this encounter Plan of Treatment Not on filedocumented as of this encounter Procedures Procedure Name Priority Date/Time Associated Diagnosis Comme nts EKG 12-LEAD Routine 08/05/2016 10:16 AM Coronary artery Resul ts for this EDT disease, angina procedure ar e in presence unspecified, the re sults unspecified vessel or sectio n. lesion type, unspecified whether little traverse or transplanted heart documented in this encounter Results EKG 12 Lead (08/05/2016 10:16 AM EDT) Component Value Ref Range Test Analysis Performed Pathologis t Method Time At Signature Ventricular rate 61 BPM MUSE SYSTEM Atrial Rate 61 BPM MUSE SYSTEM P-R Interval 146 ms MUSE SYSTEM QRS Duration 98 ms MUSE SYSTEM Q-T Interval 434 ms MUSE SYSTEM QTC Calculated 436 ms MUSE SYSTEM (Bezet) Calculated P [place] 74 degrees MUSE SYSTEM Calculated R [place] 70 degrees MUSE SYSTEM Calculated T [place] -168 degrees MUSE SYSTEM INTERPRETATION Normal sinus rhythm MUSE SYSTEM Possible Left atrial enlargement Septal infarct (cited on or before 13-JUL-2016) Abnormal ECG When compared with ECG of 13-JUL-2016 07:32, Vent. rate has decreased BY ??[address] no longer elevated in Lateral leads T wave inversion now evident in Lateral leads Confirmed by MD Smart Jon ([id number]) on 08/05/2016 12:59:2 3 PM Specimen Anatomical Collection Method Collection Time Receive d Time (Source) Location / / Volume Laterality 08/05/2016 10:16 08/05/2016 AM EDT 12:59 PM EDT Charlie Jiménez MD ECG ORDERABLES Performing Organization Address City/State/ZIP Code Phon e Number MUSE SYSTEM documented in this encounter Visit Diagnoses Diagnosis Coronary artery disease, angina presence unspecified, unspecified vessel or lesion type, unspecified whether little traverse or crowder splanted heart Tobacco abuse Tobacco use disorder Hyperlipidemia, unspecified hyperlipidem ia type Peripheral artery disease--- severe bila teral iliac and HAND LACER disease Peripheral vascular disease, unspecified Essential hypertension Unspecified essential hypertension S/P CABG (coronary artery bypass graft) Postsurgical aortocoronary bypass status documented in this encounter Care Teams Relationship Specialist Relationship Specialty Start Date End Date Danielle Rojas MD PCP - General Internal Medicine 07/21/16 06/28/[address] [place] [address] documented as of this encounter
--- OUTSIDE RECORDS SUMMARY | 2021-10-30 01:56 | XMS_ITS | Encounter Summary ---
:1960 Author Organization [facility] [place] [address] Care Team Providers Name Role Phone Zay Montilla MD Primary Care Provider Reason for Referral Consultation (Routine) - Closed Specialty Diagnoses / Referred By Contact Referred To Contact Procedures Cardiac Rehabilitation Diagnoses S/P CABG (coronary artery bypass graft) Valentino Pérez, Cardiac Rehab, [address] [place] CARDIOTHORACIC [address] [place] [address] Referral ID Status Reason Start Date Expiration Date Visits V isits Requested Authorized [id number] Closed Consult, 07/16/2016 01/12/2017 36 36 Test & Treat Reason for Visit Auth/Cert Specialty Diagnoses / Procedures Referred By Contact Refer red To Contact Diagnoses Pain Chest pain, unspecified type NSTEMI (non-ST elevated myocardial infarction) Procedures CARDIAC CATHETERIZATION Referral ID Status Reason Start Date Expiration Date Visits Requ ested Visits Authorized [id number] 1 1 Encounter Details Date Type Department Care Team Description 07/08/2016 - Hospital Cardiac Special NildaTerell cao MD [facility] [place] [address] Chest pain, unspecified type; 07/16/2016 Encounter Care Unit Darrius Diez MD [facility] [place] [address] Pain; [facility] Elmer Rolf Zayas MD [facility] [place] [address] [facility] [place] [address] S/P CABG (coronary artery bypass graft); [facility] Acute hemant cardial infarction, subendocardial infarction, initial episode of care; [place] [id number] Social History Tobacco Use Types Packs/Day Years Used Date Current Every Day Smoker 1 40 Smokeless Tobacco: Never Used Tobacco Cessation: Ready to Quit: Yes Comments: I've tried multiple times Alcohol Use Standard Drinks/Week Comments Yes 4 (1 standard drink = 0.6 oz pure alcoho l) Sex Assigned at Date Recorded Not on file documented as of this encounter Last Filed Vital Signs Vital Sign Reading Time Taken Comments Blood Pressure 129/72 07/16/2016 7:30 AM EDT Pulse 88 07/16/2016 7:30 AM EDT Temperature 36.7 ??C (98.1 ??F) 07/16/2016 7:30 AM EDT Respiratory Rate 14 07/16/2016 7:30 AM EDT Oxygen Saturation 98% 07/16/2016 7:30 AM EDT Inhaled Oxygen Concentration - - Weight 76.2 kg (167 lb 15.9 oz) 07/16/2016 4:03 AM EDT Height 167.6 cm (5' 6) 07/08/2016 5:31 PM EDT Body Mass Index 27.11 07/08/2016 5:31 PM EDT documented in this encounter Discharge Summaries Jasmine Boston APRN - 07/16/2016 10:40 AM EDT Inpatient - Discharge Summary Patient Name: Bertin Berry Patient Age: 55 y.o. Birthdate: 1960 Language: Togolese Race: White Ethnicity: Not nor Admit Date: 07/08/2016 Discharge Date: 07/16/2016 Attending Physician: Valentino Pérez MD Follow-up Recommendations for Providers: Please continue routine management of cardiovascular risk factors including blood pressure, lipids, glucose, etc. Please note any changes to medications. Patient to follow-up with PCP, Zay Montilla MD, in 1-2 weeks. Patient to follow-up with Contract Consultant, Dr. Cotter, in two weeks. Patient to follow-up with Cardiac Surgery, Dr. Valentino Pérez, in ~ 4 weeks with CXR, EKG. Inpatient Provider Contact Information: [facility] [place] [address] FAX [phone] Discharge Diagnoses (Hospital Problems) Primary Diagnoses: CAD Secondary Diagnoses: DMII Other Diagnoses (Chronic Problems): Active Non-Hospital Problems Diagnosis ??? Osteoarthritis Discharged to: Patient discharged to home Functional and Cognitive Status: stable Discharge Conditions/Prognosis: stable No past medical history on file. Past Surgical History: Procedure Laterality Date ??? PRO CABG, ARTERIAL, TWO N/A 07/12/2016 @CABG, USING 2 CORONARY ARTERIAL GRAFTS (WRVU 39.88) performed by Valentino Pérez MD at [facility] MAIN OR ??? PRO CABG, ARTERY-VEIN, TWO N/A 07/12/2016 @CABG, TWO VENOUS GRAFTS & ARTERIAL GRAFT (WRVU 7.93) performed by Valentino Pérez MD at [facility] OR ??? PRO ENDOSCOPY W/VIDEO-ASST VEIN HARVEST, CABG Right 07/12/2016 ENDOSCOPIC HARVEST VEIN(S) FOR CABG (WRVU 0.31) performed by Valentino Pérez MD at [facility] MAIN OR Prior To Admission Medications Prescriptions Prior to Admission Medication Sig Dispense Refill Last Dose ??? aspirin 325 mg Tablet, Delayed Release (E.C.) Take 325 mg by mouth daily. More than a month at Unknown time ??? nitroGLYcerin (NITROSTAT) 0.4 mg Tablet, Sublingual Place 0.4 mg under the tongue every 5 minutes as needed for Chest pain. More than a month at Unknown time ??? atorvastatin (LIPITOR) 40 mg Tablet Take 40 mg by mouth daily. More than a month at Unknown time ??? nabumetone (RELAFEN) 750 mg Tablet Take 750 mg by mouth 2 times daily. More than a month at Unknown time ??? buPROPion (WELLBUTRIN SR OR ZYBAN) 150 mg Tablet Sustained Release Take 150 mg by mouth 2 times daily. More than a month at Unknown time ??? diclofenac (VOLTAREN) 75 mg Tablet, Delayed Release (E.C.) Take 75 mg by mouth 2 times daily. More than a month at Unknown time ??? gabapentin (NEURONTIN) 400 mg Capsule Take 400 mg by mouth 3 times daily. More than a month at Unknown time ??? glipiZIDE (GLUCOTROL) 10 mg Tablet Take 20 mg by mouth daily. More than a month at Unknown time ??? metFORMIN (GLUCOPHAGE) 500 mg Tablet Take 500 mg by mouth 2 times daily (with meals). More than a month at Unknown time ??? omeprazole (PRILOSEC) 40 mg Capsule, Delayed Release(E.C.) Take 40 mg by mouth daily. More than a month at Unknown time ??? FLUoxetine (PROZAC) 40 mg Capsule Take 80 mg by mouth daily. More than a month at Unknown time ??? lisinopril (PRINIVIL;ZESTRIL) 10 mg Tablet Take 10 mg by mouth daily. More than a month at Unknown time ??? acetaminophen-codeine (TYLENOL #3) 300-30 mg Tablet Take 1 tablet by mouth every 6 hours as needed for Pain. More than a month at Unknown time Updated Allergies/ADRs: No Known Allergies History of Presentation: Bertin Berry is a 55 y.o. year old male who is a known smoker with type 2 DM. He presents with unstable angina and [facility] He has had class 2 nyha heart failure symptoms that have been going on for greater than a year. His cath reveals severe 3vd with a decreased lv function at the lower limit of normal. He seem to be a reasonable candidate for bypass surgery. CATH: ef about 50% 65% lad with a 90% diag, 65%cx and rca. He has severe PVD as well ? We had a long discussion regarding the risks and benefits of surgery. The risks include but are not limited to stroke, damage to any organ (heart, lung, liver, kidneys, brain, etc.), infection, need for blood transfusion with the concomitant risks of AIDS and hepatitis, renal failure resulting in dialysis, prolonged respiratory failure requiring mechanical ventilation, graft failure, and the possibility of . He seems to understand and wishes to proceed. ?? Major Procedures/Operations: 07/12/16 s/p cabg x 4 Hospital Course: Bertin Berry was admitted to [facility] on 07/08/2016 via the Cardiology Service. He was brought to the operating room where Dr. Valentino Pérez performed CABG x 4. He tolerated the procedure and was brought to the Cardiovascular Intensive Care Unit for recovery. He was extubated from the ventilator on the day of surgery. All drips were weaned to off. Routine postoperative and home medications were started and a diet wasadvanced. He was started on beta blockade and [...] regular diet and had a bowel movement. Vital Signs at Discharge: Last set of vitals: BP 129/72 (BP Location (NBP): Left arm) Pulse 88 Temp 36.7 ??C (98.1 ??F) (Oral) Resp 14 Ht 167.6 cm (5' 6) Wt 76.2 kg (167 lb 15.9 oz) SpO2 98% BMI 27.11 kg/m2 Patient Vitals for the past 168 hrs: Weight 07/16/16 0403 76.2 kg (167 lb 15.9 oz) 07/15/16 0626 76.2 kg (167 lb 15.9 oz) 07/13/16 0600 79.9 kg (176 lb 2.4 oz) 07/12/16 0700 74.9 kg (165 lb 2 oz) 07/11/16 0414 75 kg (165 lb 5.5 oz) 07/10/16 0429 75.4 kg (166 lb 3.6 oz) Current weight: 76.2 kg Admit/Preop weight: 74.9 kg Pertinent physical exam findings prior to discharge: General:well appearing Neuro:awake and alert, oriented x 3, no neuro deficits Lungs:clear bilaterally Heart:S1 S2 audible and regular Abdomen:soft, non-tender, (+) bowel sounds Ext:no evidence of edema Incisions:sternotomy [facility] Important Studies and Lab Data: Lab Results Component Value Date WBC 12.5 (H) 07/16/2016 RBC 3.28 (L) 07/16/2016 HGB 9.9 (L) 07/16/2016 HCT 29.9 (L) 07/16/2016 PLATELET 268 07/16/2016 Recent Labs 07/12/16 1550 INR 1.4* Lab Results Component Value Date NA 139 07/16/2016 K 3.9 07/16/2016 CL 99 07/16/2016 CO2 23 07/16/2016 BUN 27 (H) 07/16/2016 CREATININE 0.78 (L) 07/16/2016 Pending Studies and Lab Data: none Immunizations Given this Hospitalization: Immunization History Administered Date(s) Administered ??? Pneumococcal Polyvalent 23 05/28/2002 Smoking Status at Discharge: History Smoking Status ??? Current Every Day Smoker ??? Packs/day: 1.00 ??? Years: 40.00 Smokeless Tobacco ??? Never Used Comment: I've tried multiple times Discharge Medications: Your Medications New Medications Dose Details acetaminophen 500 mg Tab Commonly known as: TYLENOL Take 2 tablets by mouth every 6 hours as needed for Pain. 1000 mg Quantity: 30 tablet Refills: 1 aspirin 81 mg Chew Take 81 mg by mouth daily. Replaces: aspirin 325 mg Tbec 81 mg Quantity: 30 tablet Refills: 3 insulin NPH - insulin regular 70/30 Susp Commonly known as: NovoLIN MIX 70/30 Inject 15-25 Units subcutaneously 2 times daily (before meals). 25 units before breakfast and 15 units before dinner 15-25 Units Quantity: 3 mL Refills: 3 isosorbide mononitrate 60 mg Tablet sr Commonly known as: IMDUR Take 1 tablet by mouth every morning. 60 mg Quantity: 30 tablet Refills: 12 meTOPROLOL 100 mg Tab Commonly known as: LOPRESSOR Take 1 tablet by mouth 2 times daily. 100 mg Quantity: 60 tablet Refills: 12 oxyCODONE 5 mg Tab Commonly known as: ROXICODONE Take 1-3 tablets by mouth every 4 hours as needed for Pain. 5-15 mg Quantity: 40 tablet Refills: 0 senna-docusate 8.6-50 mg Tab Commonly known as: PERICOLACE Take 2 tablets by mouth daily as needed for Constipation. 2 tablet Quantity: 60 tablet Refills: 11 Continued medications with new dosing Dose Details atorvastatin 80 mg Tab Commonly known as: LIPITOR Take 1 tablet by mouth every evening. What changed: - medication strength - how much to take - when to take this 80 mg Quantity: 30 tablet Refills: 3 Continued medications, unchanged Dose Details buPROPion 150 mg Tbsr Commonly known as: WELLBUTRIN SR or ZYBAN [...] by mouth daily. 20 mg Refills: 0 metFORMIN 500 mg Tab Commonly known as: GLUCOPHAGE Take 500 mg by mouth 2 times daily (with meals). 500 mg Refills: 0 omeprazole 40 mg Cpdr Commonly known as: PriLOSEC Take 40 mg by mouth daily. 40 mg Refills: 0 STOPPED Medications acetaminophen-codeine 300-30 mg Tab Commonly known as: TYLENOL #3 aspirin 325 mg Tbec Replaced by: aspirin 81 mg Chew diclofenac 75 mg Tbec Commonly known as: VOLTAREN lisinopril 10 mg Tab Commonly known as: PRINIVIL;ZESTRIL nabumetone 750 mg Tab Commonly known as: RELAFEN nitroGLYcerin 0.4 mg Subl Commonly known as: NITROSTAT Instructions Given to Patient at Discharge: General Instructions None Diabetes Team Discharge Recommendations Please follow up with your PCP for further management Discharge Instructions: Call your doctor if: You have a fever of greater than 101 degrees, shaking chills, if you develop redness or drainage from your incision sites, or if you have questions. Please call your surgeon's office if you have any discharge or drainage from your chest incision. Your surgeon, Dr. Valentino Pérez and/or the Cardiac Surgery Physician [employer] Team may be reached at . Weight: Weigh yourself daily. Please call the office if you notice increasing weight, increasing fluid retention (edema), and/or SOB. Sternal (breast bone) precautions: No lifting greater than 7-10 pounds; no pushing or pulling with upper extremities; no excessive chest stretching for the first 4 weeks. Further instructions will be given to you at your follow-up appointment. Activity level: Walk three times a day. You should continue to increase your walks by 1-2 minutes each day. It is expected that you will be walking 20-30 minutes twice a day within 3-4 weeks after discharge to home. Rest between activities and after meals. Use common sense, don't exhaust yourself. Biking: You may use a stationary bicycle whenever you are comfortable enough to permit this. Tightenthe resistance slightly. Increase the amount of time on the bicycle as you would do for your walks, a minute or two each day. No biking outside until after your return appointment with Dr. Valentino Pérez. You may use a [place] or treadmill but avoid any pulling motion with the arms. Home activities: You may do light housework, e.g. dusting, setting the table, washing dishes, preparing a meal. Light carpentry and gardening are allowed. Avoid trying to open tight jars and stuck windows. No vacuuming, mopping, raking, shoveling, digging or hoeing until after your return visit with the surgeon. Sexual activity: You may engage in sexual activity when you feel ready. Use a position that protectsyour sternum (breastbone). Do not have your partner lie on your chest. Stairs: There are no restrictions on stair climbing. Use common sense. Don't exhaust yourself. Activities outside the home: After the first week home you may go out to dinner, visit friends, go to a movie, go to nondenominational, etc. Heavy activities: No hunting, skiing, jogging, snow shoveling, snowmobiling, lawn mowing, swimming, golf or tennis until after your return appointment with the surgeon. Do not ride motorcycles, [employer] tractors or horses. Avoid the use of a rifle with kickback against the shoulder for six months. Sleep: Try to establish normal sleep patterns. Long naps during the day may make it hard for you to sleep at night. Use the pain medication at bedtime for the first week at home. If you have nightmares, contact us. Some medications make this worse and these can be changed. Smoking: It is very important that you not smoke after surgery. Smoking cessation education was provided as appropriate. If you need further assistance with this please call and you will be referred toa smoking cessation specialist. Medications: Take only those medications listed on your discharge information. Keep your pain under control so you can be active, do your coughing and breathing exercises and sleep. Contact us if the pain medication isn't working for you. Do not take any herbal preparations until after you return to see the surgeon. Special Physician Instructions: DO NOT USE ANY IBUPROFEN (ADVIL, MOTRIN, ETC) OR OTHER NSAIDS (NONSTEROIDAL ANTI-INFLAMMATORY DRUGS) FOR A TOTAL OF 10 DAYS AFTER SURGERY. PLEASE CONTACT THE CARDIOTHORACIC SURGERY OFFICE IF YOU HAVE QUESTIONS ABOUT WHICH DRUGS YOU SHOULD NOT USE. . Diet: You should follow a regular diet until your appetite returns to normal. At that point in time you should resume a low fat, low cholesterol, [place] [employer] Diet/Diabetic diet. Driving: No driving until cleared by your surgeon. Avoid long trips if possible. If you must go on along trip, stop the car and walk every hour. Shower/Bath: You may shower daily. No baths, soaking, or swimming until cleared by your surgeon. Wound care: Wash your incisions daily with antibacterial soap and rinse well, pat dry. Assess for any signs of infection such as increased redness, pain, warmth or drainage. Please call your surgeon's office if you have any discharge or drainage from your chest incision. If there is a lot of swelling,apply kailee wraps during the day and remove at bedtime. Elevate your legs when you are sitting. REMOVE CHEST TUBE SUTURES ON OR AFTER 07/23/16 Home oxygen therapy: N/A Follow up appointments: 1. You should arrange to see your primary care physician, Zay Montilla MD, in one-to-two weeks or as soon as possible. 2. Cardiology, Dr. Cotter, in two weeks. 3. You will return to clinic to see Dr. Valentino Pérez or a Cardiac Surgery PA in ~4 weeks and will have a CXR, EKG at that time. A letter will be mailed to you with your appointment information. Cardiac Rehabilitation: Bertin Berry was seen today regarding participation in the outpatient Phase 2 Cardiac Rehabilitation at [facility] . The patient agrees to a referral to this program. The referral will be sent at discharge and the patient should be contacted by the Program within 1- 2 weeks from discharge. Future Appointments and Orders Future Orders Complete By Expires XR Chest PA & Lateral (Generic) [[id number] Custom] 08/15/2016 (Approximate) 07/15/2017 Process Instructions: Scheduling Instructions: Questions: Where will study be performed?: [facility] Portable exam?: Reason for exam and clinical history: s/p cabg Other pertinent information: Stat read required?: Date of injury if applicable: Requested Time: EKG 12 Lead [EKG1 Custom] As directed Process Instructions: Scheduling Instructions: Questions: Which location will this be performed?: [place] Is a rhythm strip needed?: No If EKG Reason is Pre-op Evaluation, indicate diagnosis for surgery.: Should this service be billed to the research sponsor?: Referral to Cardiac Rehab [BOK243 Custom] As directed Process Instructions: If no progress note charted, please enter Clinical details in comments. Scheduling Instructions: Questions: My question or request is: CABG- Cardiac rehab at [facility] Arrangements for VNA/home care: As above. VN RN OR PCP TO PLEASE REMOVE CHEST TUBE SUTURES ON OR AFTER 07/23/16 Signed: JASMINE BOSTON APRN [facility] [place] [address] FAX [phone] Date: 07/16/2016 CC: MD Haider Shirley Michael J, MD [address] [place] [address] [place] [address] documented in this encounter Discharge Instructions Patient InstructionsJasmine Boston APRN - 07/16/2016 10:51 AM EDT Diabetes Team Discharge Recommendations Please follow up with your PCP for further management Discharge Instructions: Call your doctor if: You have a fever of greater than 101 degrees, shaking chills, if you develop redness or drainage from your incision sites, or if you have questions. Please call your surgeon's office if you have any discharge or drainage from your chest incision. Your surgeon, Dr. Valentino Pérez and/or the Cardiac Surgery Physician [employer] Team may be reached at . Weight: Weigh yourself daily. Please call the office if you notice increasing weight, increasing fluid retention (edema), and/or SOB. Sternal (breast bone) precautions: No lifting greater than 7-10 pounds; no pushing or pulling with upper extremities; no excessive chest stretching for the first 4 weeks. Further instructions will be given to you at your follow-up appointment. Activity level: Walk three times a day. You should continue to increase your walks by 1-2 minutes each day. It is expected that you will be walking 20-30 minutes twice a day within 3-4 weeks after discharge to home. Rest between activities and after meals. Use common sense, don't exhaust yourself. Biking: You may use a stationary bicycle whenever you are comfortable enough to permit this. Tightenthe resistance slightly. Increase the amount of time on the bicycle as you would do for your walks, a minute or two each day. No biking outside until after your return appointment with Dr. Valentino Pérez. You may use a [place] or treadmill but avoid any pulling motion with the arms. Home activities: You may do light housework, e.g. dusting, setting the table, washing dishes, preparing a meal. Light carpentry and gardening are allowed. Avoid trying to open tight jars and stuck windows. No vacuuming, mopping, raking, shoveling, digging or hoeing until after your return visit with the surgeon. Sexual activity: You may engage in sexual activity when you feel ready. Use a position that protectsyour sternum (breastbone). Do not have your partner lie on your chest. Stairs: There are no restrictions on stair climbing. Use common sense. Don't exhaust yourself. Activities outside the home: After the first week home you may go out to dinner, visit friends, go to a movie, go to nondenominational, etc. Heavy activities: No hunting, skiing, jogging, snow shoveling, snowmobiling, lawn mowing, swimming, golf or tennis until after your return appointment with the surgeon. Do not ride motorcycles, [employer] tractors or horses. Avoid the use of a rifle with kickback against the shoulder for six months. Sleep: Try to establish normal sleep patterns. Long naps during the day may make it hard for you to sleep at night. Use the pain medication at bedtime for the first week at home. If you have nightmares, contact us. Some medications make this worse and these can be changed. Smoking: It is very important that you not smoke after surgery. Smoking cessation education was provided as appropriate. If you need further assistance with this please call and you will be referred toa smoking cessation specialist. Medications: Take only those medications listed on your discharge information. Keep your pain under control so you can be active, do your coughing and breathing exercises and sleep. Contact us if the pain medication isn't working for you. Do not take any herbal preparations until after you return to see the surgeon. Special Physician Instructions: DO NOT USE ANY IBUPROFEN (ADVIL, MOTRIN, ETC) OR OTHER NSAIDS (NONSTEROIDAL ANTI-INFLAMMATORY DRUGS) FOR A TOTAL OF 10 DAYS AFTER SURGERY. PLEASE CONTACT THE CARDIOTHORACIC SURGERY OFFICE IF YOU HAVE QUESTIONS ABOUT WHICH DRUGS YOU SHOULD NOT USE. . Diet: You should follow a regular diet until your appetite returns to normal. At that point in time you should resume a low fat, low cholesterol, [place] Heart [employer] Diet/Diabetic diet. Driving: No driving until cleared by your surgeon. Avoid long trips if possible. If you must go on along trip, stop the car and walk every hour. Shower/Bath: You may shower daily. No baths, soaking, or swimming until cleared by your surgeon. Wound care: Wash your incisions daily with antibacterial soap and rinse well, pat dry. Assess for any signs of infection such as increased redness, pain, warmth or drainage. Please call your surgeon's office if you have any discharge or drainage from your chest incision. If there is a lot of swelling,apply kailee wraps during the day and remove at bedtime. Elevate your legs when you are sitting. REMOVE CHEST TUBE SUTURES ON OR AFTER 07/23/16 Home oxygen therapy: N/A Follow up appointments: 1. You should arrange to see your primary care physician, Zay Montilla MD, in one-to-two weeks or as soon as possible. 2. Cardiology, Dr. Cotter, in two weeks. 3. You will return to clinic to see Dr. Valentino Pérez or a Cardiac Surgery PA in ~4 weeks and will have a CXR, EKG at that time. A letter will be mailed to you with your appointment information. Cardiac Rehabilitation: Bertin Berry was seen today regarding participation in the outpatient Phase 2 Cardiac Rehabilitation at [facility] . The patient agrees to a referral to this program. The referral will be sent at discharge and the patient should be contacted by the Program within 1- 2 weeks from discharge. documented in this encounter Medications at Time [...] by mouth 0 40 mg Capsule daily. insulin NPH - insulin Inject 15-25 Units 3 mL 3 201607/16/2017 regular 70/30 subcutaneously 2 times (NOVOLIN MIX 70/30) daily (before meals). Suspension 25 units before breakfast and 15 units before dinner isosorbide Take 1 tablet by mouth 30 tablet 12 07/16/2016 mononitrate (IMDUR) every morning. 60 mg Tablet Sustained Release 24 hr meTOPROLOL tartrate Take 1 tablet by mouth 60 tablet 12 06/2407/25/2019 (LOPRESSOR) 100 mg 2 times daily. Tablet oxyCODONE Take 1-3 tablets by 40 tablet 0 07/16/201608/05 (ROXICODONE) 5 mg mouth every 4 hours as Tablet needed for Pain. senna-docusate Take 2 tablets by 60 tablet [...] Delayed Release(E.C.) documented as of this encounter Progress Notes Sujatha Kinney MSW - 07/16/2016 12:23 PM EDT customer account manager set up [employer] coverage for most of his prescriptions - Novolin, metoprolol, atorvastatin, and imdur (nitro). The cost was $24. Coverage sheet was sent to Mellisa Logan and pharmacy. Patient will have to pay for colace and insulin syringes. He was appreciative for the assistance. He continues to wait to hear back about Medicaid status. Mary Fox RN - 07/16/2016 12:20 PM EDT IV and telemetry discontinued. AVS reviewed, including new medications and sternal care. Postsurgical precautions reviewed as in AVS. Insulin teaching reviewed: syringe use, instilling air into glass vial, safe storing of used syringes in red sharps container. Lyla from endocrine visited with patient multiple times this morning to discuss insulin use at home; instruction sheet given to pt. Miguel Ángel go home with son Shabbir. Lyla Mohr, RN TELEHEALTH - 07/16/2016 10:41 AM EDT Follow Up Diabetes Consult Patient Interview Mr Pires tells me he is very happy to be discharged today, and that he is planning to get clatobi arroyo when he is discharged. 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 Patient endorses having glucometer, test strips, and lancets at home. Summary of Counseling and Care Coordination Worked with patient's RN to provide insulin teaching. Patient had not given himself a shot, so RN worked with patient to explain injection methods and drawing up insulin from vial. Pended orders for insulin and for syringes at request of primary team. Objective Temp: [36.7 ??C (98.1 ??F)-37 ??C (98.6 ??F)] Heart Rate: [87-104] Resp: [14-28] BP: (121-140)/(72-97) SpO2: [92 %-98 %] Heart Rate from SPO2: [86 bpm-106 bpm] Current Regimen Humalog 75/25 mixed insulin 25 units before breakfast, 15 units before dinner Humalog for correction q 4 hours using moderate sliding scale Recent Glucose Levels Recent Labs 07/16/16 0734 07/16/16 0358 07/15/16 2358 07/15/16 2113 07/15/16 1955 07/15/16 1624 07/15/16 1132 07/15/16 0657 07/15/16 0615 07/15/16 0456 07/15/16 0400 07/15/16 0300 POCGLU 160 186 122 167 200* 159 235* 178 217* 214* 216* 213* ASSESSMENT Patient is a 55 y.o. years old male with PMH significant for ASCVD, COPD, HTN, HLD, depression, reportedly off all medications for past 8 due to financial constraints, active tobacco use, and T2DM (Last A1C of 12.7) who was admitted on 07/08/2016 for chest pain, now POD#4 s/p CABG. Diabetes suboptimally controlled and complicated by lack of access to preventive medical therapy, infarction, steroid induced hyperglycemia, and stress of hospitalization and surgery. Currently with variability of blood glucose levels while hospitalized requiring adjustment of insulin regimen and DM medications. Patient voiced understanding of discharge instructions below, all questions were answered and patient denied any further questions/needs at this time in terms of DM management post-discharge. PLAN Insulin discharge instructions as below Lyla Mohr APRN [facility] Endocrinology Diabetes Management Pager [phone] minutes of this 35 minute visit was spent counseling the patient on diabetes and the current treatment plan, reviewing all glucose and insulin data as well as relevant laboratory results with the patient, and coordination of care on the inpatient unit. Instructions for Novolin 70-30 mix (70% NPH 30% Regular) Inject insulin at breakfast and supper every day ??? Novolin 70-30 mix -20 units at breakfast ??? Novolin 70-30 mix -10 units at supper 1. Check your blood sugar before breakfast every day ??? If your blood sugar is over 120 before breakfast for 2 days in a row, increase your next SUPPER dose of insulin by 1 unit ??? If your blood sugar is less than 90 before breakfast for 2 days in a row, decrease your next SUPPER dose of insulin by 1 unit. 2. Check your blood sugar before supper every day ??? If your blood sugar is over 120 before supper for 2 days in a row, increase your next BREAKFAST dose of insulin by 1 unit ??? If your blood sugar is less than 90 before supper for 2 days in a row, decrease your next BREAKFAST dose of insulin by 1 unit Call your doctor if your blood sugar is less than 70 or greater than 300. Treatment of Low Blood Sugar (Hypoglycemia) If your BG is lower than 80, you are likely to feel shaky, sweaty and lightheaded. This is a signal that your body needs more sugar. Quickly eat or drink a small serving of something sweet, such as: 4 ounces fruit juice or regular (not diet) soda 6 lifesavers small box of raisins 4 glucose tablets (~15 gm of glucose) If your BG is very low <50, you can double the amount above or take 30 gm of glucose gel/tablets. Sit and rest and you should feel better within a few minutes. Once you are feeling better, try to determine why your BG was so low. Common causes of hypoglycemia include skipping a meal, lots of exercise, too much insulin or any combination of these things. Understanding the cause my help you to avoidanother low BG in the future. Call your doctor for blood sugars less than 80 or greater than 300 twice in one day to have your insulin doses adjusted. Lima Haji LD - 07/15/2016 1:52 PM EDT Nutrition Services Note Admit Date: 07/08/2016 Reason for encounter: Follow-up on additional diet education needs. Pt was seen yesterday for preliminary ed while still in the unit Interview: States he lost the information from yesterday and would gladly take another copy. He is teaching himself about carbs utilizing his meal trays with the menus included. He also learned a good bit of information watching cooking shows on [employer] put up an antenna when he could no longer afford cable or [facility]...show choices limited.... History : Patient Active Problem List Diagnosis Code ??? Diabetes mellitus, type 2 E11.9 ??? Tobacco abuse Z72.0 ??? Hyperlipidemia E78.5 ??? Osteoarthritis M19.90 ??? Non ST elevation [place] due to severe 3vD-- awaiting for CABG Tuesday I21.4 ??? 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 Hypertension I10 ??? Financial difficulties--- barrier to medication use Z59.8 ??? Coronary artery disease I25.10 ??? Left groin hematoma-- noted 07/11/2016 S30.1XXA ??? S/P CABG (coronary artery bypass graft) Z95.1 No past medical history on file. Vitals: Patient Vitals for the past 168 hrs: Weight 07/15/16 0626 76.2 kg (167 lb 15.9 oz) 07/13/16 0600 79.9 kg (176 lb 2.4 oz) 07/12/16 0700 74.9 kg (165 lb 2 oz) 07/11/16 0414 75 kg (165 lb 5.5 oz) 07/10/16 0429 75.4 kg (166 lb 3.6 oz) 07/08/16 1827 77 kg (169 lb 12.1 oz) 07/08/16 1731 81.6 kg (180 lb) Labs: Recent Results (from the past 24 hour(s)) POCT Glucose Result Value Ref Range POC Glucose 249 (H) 65 - 199 mg/dL POCT Glucose Result Value Ref Range POC Glucose 275 (H) 65 - 199 mg/dL POCT Glucose Result Value Ref Range POC Glucose 187 65 - 199 mg/dL POCT Glucose Result Value Ref Range POC Glucose 154 65 - 199 mg/dL POCT Glucose Result Value Ref Range POC Glucose 192 65 - 199 mg/dL POCT Glucose Result Value Ref Range POC Glucose 199 65 - 199 mg/dL POCT Glucose Result Value Ref Range POC Glucose 132 65 - 199 mg/dL POCT Glucose Result Value Ref Range POC Glucose 107 65 - 199 mg/dL POCT Glucose Result Value Ref Range POC Glucose 120 65 - 199 mg/dL Potassium Result Value Ref Range Potassium 4.0 3.5 - 5.0 mmol/L POCT Glucose Result Value Ref Range POC Glucose 132 65 - 199 mg/dL POCT Glucose Result Value Ref Range POC Glucose 192 65 - 199 mg/dL POCT Glucose Result Value Ref Range POC Glucose 232 (H) 65 - 199 mg/dL POCT Glucose Result Value Ref Range POC Glucose 213 (H) 65 - 199 mg/dL POCT Glucose Result Value Ref Range POC Glucose 216 (H) 65 - 199 mg/dL POCT Glucose Result Value Ref Range POC Glucose 214 (H) 65 - 199 mg/dL POCT Glucose Result Value Ref Range POC Glucose 217 (H) 65 - 199 mg/dL BMP w/fasting Glucose Result Value Ref Range Glucose Fasting 175 (H) 65 - 99 mg/dL BUN 18 10 - 20 mg/dL Creatinine 0.65 (L) 0.80 - 1.50 mg/dL Sodium 140 135 - 145 mmol/L Potassium 3.8 3.5 - 5.0 mmol/L Chloride 101 98 - 107 mmol/L CO2 23 22 - 31 mmol/L Anion Gap 16 (H) 5 - 15 mmol/L Calcium 8.8 8.5 - 10.5 mg/dL Estimated GFR >60 >=60 Hemogram Result Value Ref Range WBC 13.8 (H) 4.0 - 9.5 x10(3)/mcL RBC 3.44 (L) 4.58 - 5.54 x10(6)/mcL Hemoglobin 10.1 (L) 13.7 - 16.5 gm/dL Hematocrit 31.3 (L) 40.5 - 48.5 % MCV 91.0 82.9 - 93.1 fL MCH 29.4 27.5 - 32.1 pg MCHC 32.3 32.0 - 35.7 gm/dL Platelets 215 145 - 357 x10(3)/mcL RDWSD 43.9 36.0 - 45.0 fL RDWCV 13.2 11.4 - 13.8 % MPV 11.2 7.6 - 12.9 fL nRBC % Auto 0.0 % nRBC Abs Auto 0.000 0.000 - 0.000 x10(3)/mcL Differential, Automated Result Value Ref Range Neutrophils % 80.3 % Neutr Abs (ANC) 11.09 (H) 1.70 - 6.10 x10(3)/mcL Lymphocytes % 11.9 % Lymphocytes Abs 1.6 0.9 - 3.2 x10(3)/mcL Monocytes % 6.3 % Monocyte Abs 0.9 0.3 - 0.9 x10(3)/mcL Eosinophils % 0.0 % Eosinophils Abs 0.0 0.0 - 0.4 x10(3)/mcL Basophils % 0.1 % Basophils Abs 0.0 0.0 - 0.1 x10(3)/mcL Immature Gran % 1.40 % Madhuri Gran Abs 0.19 (H) 0.00 - 0.04 x10(3)/mcL POCT Glucose Result Value Ref Range POC Glucose 178 65 - 199 mg/dL POCT Glucose Result Value Ref Range POC Glucose 235 (H) 65 - 199 mg/dL Food allergies/intolerances: Allergies as of 07/08/2016 ??? 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 Provided another copy of diabetic HH eating guidelines ?? If he attends cardiac rehab there will be follow-up nutrition education and reinforcement ?? Nutrition Services to follow weekly during inpatient stay Daniela Martinez APRN - 07/15/2016 1:20 PM EDT Cardiac Surgery Progress Note: ID: [id number] Bertin Berry is a 55 y.o. male with a PMH of CAD, DM II, HLD, HTN, and depression. He is POD#3 s/p CABG x 4. EF-56% 24 Hour Events: transferred from [facility] to floor, no overnight events, remains on 5 liter NC S:I am feeling good this morning. Review of Systems - General ROS: negative for - fever Respiratory ROS: negative for - cough or shortness of breath Cardiovascular ROS: negative for - chest pain or palpitations Gastrointestinal ROS: negative for - abdominal pain or nausea/vomiting Musculoskeletal ROS: negative for - muscular weakness or edema Neurological ROS: negative for - TIA or stroke symptoms O: I/O last 3 completed shifts: In: 1456.1 [P.O.:720; I.V.:736.1] Out: 5035 [Urine:5035] I/O this shift: In: 560 [P.O.:560] Out: 550 [Urine:550] Admit weight 81.65 kg Current Weight Weight - Scale: 76.2 kg (167 lb 15.9 oz) Physical exam: General:well appearing Neuro:awake and alert, oriented x 3, no neuro deficits Lungs:clear bilaterally Heart:S1 S2 audible and regular Abdomen:soft, non-tender, (+) bowel sounds Ext:no evidence of edema Incisions:sternotomy [facility] Tubes/Lines/Drains:PIV, PW-will dc, burch-will dc Assessment/Plan: s/p CABG x 4, POD 3, doing well. Transferred from [facility], no overnight events, will dc PW today, will dc burch this morning. Will increase metoprolol to 50mg q6h, will resume home diabetic medications, endocrine consult to see this morning. Will send day 3 lab work. CXR done yesterday and stable Neuro:frequent neuro exams, scheduled APAP, oxycodone prn CV:continue telemetry, PW dc'd, metoprolol increased to 50mg q6h, imdur 60mg', atorvastatin 80mg' Resp:hourly IS, pulse oximetry, wean oxygen to maintain O2 sat >95% GI:continue current diet, protonix daily, RBO's :dc burch, monitor for void, bladder scan prn Renal:replete K+ today and prn, strict I+O ID:no needs identified Heme:daily ASA Endo:metformin and glipizide resumed, endocrine consult appreciated, to begin basal insulin, discharge recommendations discussed with patient along with cost containment for compliance Dispo:[facility], discharge planning DW Attending Surgeon on rounds. Signed: Daniela Martinez APRN Lyla Mohr APRN - 07/15/2016 10:09 AM EDT Follow Up Diabetes Consult Patient Interview Mr Pires tells me he is very motivated to improve his health going forward. He is very concerned about the costs of his medications going forward, and wants to make sure he is discharged on medications he can afford. He tells me he's been getting advances from his jail fund to get by. Summary of Counseling and Care Coordination Per primary team, Mr. Pires may go home as soon as tomorrow and team requests help getting patienton an affordable DM management plan that he can continue after discharge. Objective Temp: [36.5 ??C (97.7 ??F)-37.3 ??C (99.1 ??F)] Heart Rate: [89-124] Resp: [14-30] BP: (102-138)/(64-82) SpO2: [90 %-99 %] Heart Rate from SPO2: [85 bpm-113 bpm] Current Regimen Glipizide 20mg before breakfast Metformin 500mg BID with meals Recent Glucose Levels Recent Labs 07/15/16 0657 07/15/16 0615 07/15/16 0456 07/15/16 0400 07/15/16 0300 07/15/16 0201 07/15/16 0103 07/14/16 2356 07/14/16 2301 07/14/16 2230 07/14/16 2201 07/14/16 2059 POCGLU 178 217* 214* 216* 213* 232* 192 132 120 107 132 199 ASSESSMENT Patient is a 55 y.o. years old male with PMH significant for ASCVD, COPD, HTN, HLD, depression, reportedly off all medications for past 8 due to financial constraints, active tobacco use, and T2DM (Last A1C of 12.7) who was admitted on 07/08/2016 for chest pain, now POD#3 s/p CABG. Diabetes suboptimally controlled and complicated by lack of access to preventive medical therapy, infarction, steroid induced hyperglycemia, and stress of hospitalization and surgery. Currently with variability of blood glucose levels while hospitalized requiring adjustment of insulin regimen and DM medications. Primary team and patient both requesting an affordable regimen that patient will be able to continueafter discharge. Primary team started orals this AM. Expecting that patient will need insulin in addition to this, and accounting for request to develop a sustainable plan for discharge, will start mixed insulin today. Patient required about 50 units of insulin before his surgery, with BG in moderate control. Given that orals were started this AM, we will err on lower side for insulin dosing to avoidhypoglycemia, and use 40 units of mixed insulin daily split with 2/3 this AM and 1/3 before dinner. To keep BG in control given this transition of regimens, switching to Q4H BG checks/correction, moderate sliding scale is appropriate. PLAN Start humalog mixed insulin 75/25, 25 units this AM and 15 units before dinner - At discharge, would recommend generic mixed insulin (Humulin 70/30 or Novolin 70/30) as this is more affordable Humalog moderate sliding scale for correction: Switch to Q4H BG checks to safely pursue goal of BG 140-180 I took the liberty of changing BG checks/correction to q4h Lyla Mohr APRN [facility] [place]ocrin[facility] Diabetes Management Pager [phone] minutes of this 35 minute visit was spent counseling the patient on diabetes and the current treatment plan, reviewing all glucose and insulin data as well as relevant laboratory results with the patient, and coordination of care on the inpatient unit. Luisa Harris, HEAVEN - 07/15/2016 7:36 AM EDT OUTCOME EVALUATION NOTE: OUTCOME SUMMARY: ST on tele. Pt denies CP and SOB. Pt ambulated around unit with 1 assist and walker. PLAN MOVING FORWARD: Pathway, BM, ambulation INDIVIDUALIZED FALL PREVENTION INTERVENTIONS: Patient-specific fall risk factors per assessment: [current deficits]: New environment, sternal precautions Assistance [level of assistance required for transfers and ambulation]: 1 A Supervision [direct monitoring required during toileting and ADLs]: Call le in reach Surveillance [continuous indirect monitoring]: Tele, pulse ox, hourly rounding Madai Marie RN - 07/14/2016 6:34 PM EDT Patient arrived to floor, no complaints of pain or SOB. 5L NC sats 90-95. Sitting up in chair talking with family. ST 100-110s. 1830) MD Santiago paged for HR sustaining 120-130 for 40 minutes, patient asymptomatic, no change invitals otherwise. Metoprolol dose increased. Diane Romero RD - 07/14/2016 3:58 PM EDT Nutrition Services Education Note Bertin Berry is a 55 y.o. male Patient Active Problem List Diagnosis Code ??? Diabetes mellitus, type 2 E11.9 ??? Tobacco abuse Z72.0 ??? Hyperlipidemia E78.5 ??? Osteoarthritis M19.90 ??? Non ST elevation [place] due to severe 3vD-- awaiting for CABG Tuesday I21.4 ??? 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 Hypertension I10 ??? Financial difficulties--- barrier to medication use Z59.8 ??? Coronary artery disease I25.10 ??? Left groin hematoma-- noted 07/11/2016 S30.1XXA ??? S/P CABG (coronary artery bypass graft) Z95.1 Patient seen for nutrition education for carbohydrate counting/control Written information provided: Healthy Food Choices from the ADA and the Academy of Nutrition and Dietetics. Above information was reviewed with pt regarding foods with/without carbohydrates, meal planning/spacing, very basic carb counting, and recommended carb limits for meals/snacks. Pt was given my contact information if questions arise. Pt stated good understanding and seems motivated to change. He is hoping he will be able to afford his diabetes care medications. We will attempt to see this pt again prior to discharge to give him a more comprehensive carbohydrate counting booklet after he has reviewed the information given to him today. MARY ANTHONY Lyla Mohr, RN TELEHEALTH - 07/14/2016 1:58 PM EDT Follow Up Diabetes Consult Patient Interview Patient is requiring respiratory support with CPAP this AM. Summary of Counseling and Care Coordination Per patient's RN, patient may be transferred off the unit today. Per MD Irvin, would like patient to remain on insulin gtt. He was started on steroids today for COPD exacerbation, and will be tapered quickly with last doses tomorrow. Discussed importance of meal associated insulin to improve BG control. Objective Temp: [37 ??C (98.6 ??F)-37.5 ??C (99.5 ??F)] Heart Rate: [94-117] Resp: [11-30] BP: (125-134)/(68-70) SpO2: [84 %-98 %] Heart Rate from SPO2: [99 bpm-117 bpm] Current Regimen Insulin gtt per T2DM protocol Meal associated humalog 0-9 units (1 unit for every 8 grams CHO) Recent Glucose Levels Recent Labs 07/14/16 1348 07/14/16 1159 07/14/16 1043 07/14/16 0951 07/14/16 0816 07/14/16 0736 07/14/16 0623 07/14/16 0545 07/14/16 0232 07/14/16 0122 07/14/16 0021 07/13/16 2314 POCGLU 206* 211* 204* 185 177 112 204* 227* 191 167 172 176 ASSESSMENT Patient is a 55 y.o. years old male with PMH significant for ASCVD, COPD, HTN, HLD, depression, reportedly off all medications for past 8 due to financial constraints, active tobacco use, and T2DM (Last A1C of 12.7) who was admitted on 07/08/2016 for chest pain, now awaiting CABG. Diabetes suboptimallycontrolled and complicated by lack of access to preventive medical therapy, infarction, steroid induced hyperglycemia, and stress of hospitalization and surgery. Currently with variability of blood glucose levels while hospitalized requiring adjustment of insulin regimen and DM medications. Patient is receiving steroids for a presumed COPD exacerbation, and will be quickly tapered (60mg BID today, 30mg BID tomorrow, then stopping steroids). Due to his high risk for complications (uncontrolled DM, active smoking) and the addition of steroids to his regimen, primary team wishes to keep patient on insulin gtt overnight, and reassess tomorrow for possible transition to subQ regimen. PLAN Continue insulin gtt per Type II DM protocol Continue meal associated Humalog 1:8 insulin to carb ratio Lyla Mohr APRN [facility] Endocrinology Diabetes Management Pager [phone] minutes of this 25 minute visit was spent counseling the patient on diabetes and the current treatment plan, reviewing all glucose and insulin data as well as relevant laboratory results with the patient, and coordination of care on the inpatient unit. Kimberly Santiago MD - 07/14/2016 12:39 PM EDT Cardiac Surgery Progress Note ID: [id number] with PMHx of smoking, uncontrolled DM2, HTN and CAD now 2 Days Post-Op s/p CABG x4 (B/L JOSE + SVG x2). S/24: - Metoprolol uptitrated to 37.5 q8 over course of yesterday - Burch removed for ongoing bladder spasms, which resolved. Voiding - NTG resumed in PM for HTN > 140. - Worsening oxygenation into mid 80s on venti mask. Ultimately placed on BiPAP 100%. No subjective dyspnea with this. CXR unrevealing - Today he is feeling well. Pain well controlled. No dyspnea. Denies abdominal complaints. No other concerns O: Temp: [37 ??C (98.6 ??F)-37.5 ??C (99.5 ??F)] Heart Rate: [94-117] Resp: [11-30] BP: (125-134)/(68-70) SpO2: [84 %-98 %] Heart Rate from SPO2: [99 bpm-117 bpm] Hemodynamics: Baseline EF 56% ==> 70% postop 5L NC Art pH/pCO2/pO2/HCO3: 7.50/35/94/26.9 (07/14 0736) (on BiPAP 100%) Admit weight: 74.9kg Patient Vitals for the past 168 hrs: Weight 07/13/16 0600 79.9 kg (176 lb 2.4 oz) 07/12/16 0700 74.9 kg (165 lb 2 oz) 07/11/16 0414 75 kg (165 lb 5.5 oz) 07/10/16 0429 75.4 kg (166 lb 3.6 oz) 07/08/16 1827 77 kg (169 lb 12.1 oz) 07/08/16 1731 81.6 kg (180 lb) Intake/Output Summary (Last 24 hours) at 07/14/16 1241 Last data filed at 07/14/16 1200 Gross per 24 hour Intake 2121.01 ml Output 3290 ml Net -1168.99 ml + 1.5L PO + 1.2 IV - 3.2 UOP Exam: Sleeping, easily aroused, comfortable Sinus tachycardia ~100, nl s1/s2. Sternal incision with dermabond c/d/i no erythema or drainage Unlabored on NC. Good effort and cough. CTAB no wheeze/rhonchi. CT sites dressed c/d/i Abdomen soft, nontender, +BS Extremities warm, dry, no peripheral edema. Evolving left groin hematoma, no large firm collection. Labs: Last 3 wbc, hgb, hct plt Recent Labs 07/14/16 0645 07/13/16 0410 07/12/16205407/12/16 1550 WBC 11.3* 9.8* -- 11.0* HGB 9.2* 10.2* 11.1* 9.1* HCT 27.2* 31.1* -- 27.5* PLATELET 148 136* -- 124* Last 3 Lytes Recent Labs 07/14/16 0645 07/13/16 0410 07/12/16205407/12/16 0434 NA 137 140 -- 138 K 3.7 4.2 4.1 4.1 CL 99 105 -- 99 CO2 24 22 -- 24 BUN 9* 12 -- 13 CREATININE 0.62* 0.61* -- 0.93 Last Ca, Mg, Phos Recent Labs 07/14/16 0645 CALCIUM 8.5 Last 3 Coags Recent Labs 07/12/16 1550 07/12/16 0434 07/11/16 0404 07/08/16 1740 PT 17.5* 12.9 -- -- 12.9 INR 1.4* 0.9 -- -- 0.9 PTT 29 26 90* < > 36* < > = values in this interval not displayed. Imaging: CXR 07/14: IMPRESSION Improved aeration of the lungs with persistent bibasilar atelectasis, and trace pleural effusion. Micro: No data A/P: 55M with PMHx of smoking, uncontrolled DM2, HTN and CAD now 2 Days Post-Op s/p CABG x4 (B/L JOSE+ SVG x2). Overall doing well. Some issues with BP control and then hypoxemia overnight. Latter seemingly related to a combination of his smoking history as well as some shunting from NTG which he was on for blood pressure --- he is having no issues on 5L NC today, CXR reassuring, have started imdur to help withBP control; will also give a short burst of steroids for possible COPD exacerbation, keeping in mindhis significant RFs for wound complications. Otherwise pathway and appropriate for CSCU today. N: PO Oxy prn. APAP sched. Nicotine patch 21mcg C: Sinus tachycardia. HDS off pressors. Metop 37.5mg q8. Imdur 60 QD. Atorvastatin 80 P: wean NC, encourage IS and pulmonary toilet, Acapella G: CC2. Protonix. RBOs F/R: voiding. B&O suppository prn. Lasix 20mg IV BID H: ASA 81 I: s/p periop cefurox. No active concerns E: lasix gtt + meal-associated. DM Team following. Solumedrol 60mg IV BID today, 30mg IV BID tomorrow LDA: R IJ (remove for xfer) + RAL (keep for xfer), Edward Burch Dispo: Transfer to [facility] Discussed on AM rounds. KIMBERLY SANTIAGO MD Trevor Maher RCP - 07/14/2016 7:59 AM EDT Initial settings: 8 100% ABG 7.5/35/94 Changed to CPAP 12 75% Nasal mask (due to pt refusing full face) RR 20 Spo2 97% Changed to 5 L Nc. Pt tolerated well. SpO2 high 90's Will continue to monitor. Mukesh Pan RCP - 07/14/2016 4:14 AM EDT 07/13/16 2105 07/13/16 2245 Non Invasive Ventilation Data NIV Mode BiPAP (abg on 50% venti-mask pao2 47,placed on 100% via BIPAP) (pt wanted BIPAP off I cant breathe I feelclosed in) NIV Settings FiO2 (%) 100 % 100 % (Placed on HF mask,pt getting ativan) IPAP (cmH20) 14 -- EPAP (cmH20) 10 -- Pressure Support (cm H2O) 4 -- NIV Measurements Resp 26 -- Mve 16.4 -- Leak (L/min) 16 L/min -- Vte 612 -- SpO2 95 % 95 % NIV Interface NIV Interface Face Mask -- NIV Skin Assessment NIV Skin Assessment WDL WDL -- Mepilex Applied Yes -- RR 16-27 with fio2 50% to 100% this shift.Abg and x-ray taken.Pt then placed on BIPAP on for 1 1/2 hr only due to anxiousness.Placed on HF mask then HFNC.Currently on HFNC @ 50lpm with 100% fio2.Diminished BBS.Duoneb Q4.Will continue to follow. ~0545 pt received ativan and placed on BIPAP via nasal mask for pt comfort.Decreased IPAP to 10 and EPAP * on 100% fio2. Isela Rodriguez MD - 07/13/2016 3:05 PM EDT CRITICAL CARE ATTENDING STAFF PROGRESS NOTE ASSESSMENT, MANAGEMENT, and DECISION MAKING: Persistent mild tachycardia, adjusting beta arlette accordingly. Adjusting antihypertensive regimen. Optimizing pain control, pull burch catheter early for spasms. Glucose control will need optimization, especially for post discharge. Patient seen and examined. Bertin Berry is a 55 y.o. male has issues that include: Active Hospital Problems Diagnosis ??? S/P CABG (coronary artery bypass graft) ??? Left groin hematoma-- noted 07/11/2016 ??? 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 Hypertension ??? Financial difficulties--- barrier to medication use ??? Coronary artery disease ??? Non ST elevation [place] due to severe 3vD-- awaiting for CABG Tuesday ??? Diabetes mellitus, type 2 ??? Tobacco abuse ??? Hyperlipidemia Resolved Hospital Problems Diagnosis Date Resolved No resolved problems to display. Active Non-Hospital Problems Diagnosis ??? Osteoarthritis EXAM: Temp: [35.8 ??C (96.4 ??F)-37.7 ??C (99.9 ??F)] Heart Rate: [87-117] Resp: [8-31] BP: (93-139)/(59-70) SpO2: [90 %-100 %] Heart Rate from SPO2: [88 bpm-117 bpm] Physical Exam Awake, alert, interactive Lungs clear Heart regular Abdomen soft Extremities warm IS PATIENT CRITICALLY ILL ? Is there a high potential of sudden, clinically significant, or life threatening deterioration? No Is there a need for direct personal assessment and management to treat/prevent multiple vital organfailure/deterioration? No Lyla Mohr, RN TELEHEALTH - 07/13/2016 1:53 PM EDT Follow Up Diabetes Consult Patient Interview Patient tells me he was hungry for lunch today, however when he sat down to eat, he had 2 bites of grilled cheese and couldn't stomach any more. Has been saving slips from dietary to help him with mealplanning going forward. Patient tells me he loves pasta, but that he was not aware that this was high in carbohydrates. Summary of Counseling and Care Coordination Per MD Irvin, patient is at elevated risk for sternal wound infection given history of smoking and uncontrolled T2DM, so tight BG control is desired. Objective Temp: [35.8 ??C (96.4 ??F)-37.7 ??C (99.9 ??F)] Heart Rate: [87-117] Resp: [8-31] BP: (93-139)/(59-68) SpO2: [90 %-100 %] Heart Rate from SPO2: [88 bpm-116 bpm] Current Regimen Insulin gtt per T2DM protocol Meal assoc 3-6 units Recent Glucose Levels Recent Labs 07/13/16 1251 07/13/16 1140 07/13/16 1029 07/13/16 0955 07/13/16 0913 07/13/16 0731 07/13/16 0705 07/13/16 0610 07/13/16 0513 07/13/16 0415 07/13/16 0250 07/13/16 0202 POCGLU 133 118 126 113 136 172 181 178 208* 182 158 138 ASSESSMENT Patient is a 55 y.o. years old male with PMH significant for ASCVD, COPD, HTN, HLD, depression, reportedly off all medications for past 8 due to financial constraints, active tobacco use, and T2DM (Last A1C of 12.7) who was admitted on 07/08/2016 for chest pain, now awaiting CABG. Diabetes suboptimallycontrolled and complicated by lack of access to preventive medical therapy, infarction, and stress of hospitalization and upcoming procedure. Currently with variability of blood glucose levels while hospitalized requiring adjustment of insulin regimen and DM medications. Before his CABG on 07/12, patient was on 30 units of lantus and humalog 1:10 meal associated along with custom correction for hyperglycemia >140. Patient had continued post-prandial glycemic excursions on 1:10 ratio to cover meals, so will recommend switching from range to 1:8 meal associated to improve glycemic control. Will recommend continuing insulin gtt per protocol per care pathway (i.e. [place] insulin gtt through POD#2, give lantus PM POD#2, keep gtt running overnight and give more lantus if needed on morning of POD#3). PLAN Continue insulin gtt through post op day 2-3 per care pathway Change meal associated humalog from 3-6 units to 1:8 insulin:carb ratio Will follow Lyla Mohr APRN [facility] [place] [facility] Diabetes Management Pager [phone] minutes of this 35 minute visit was spent counseling the patient on diabetes and the current treatment plan, reviewing all glucose and insulin data as well as relevant laboratory results with the patient, and coordination of care on the inpatient unit. Kimberly Santiago MD - 07/13/2016 11:44 AM EDT Cardiac Surgery Progress Note ID: [id number] with PMHx of smoking, uncontrolled DM2, HTN and CAD now 1 Day Post-Op s/p CABG x4 (B/L JOSE +SVG x2). S/24: - Extubated at 2230 - Tachycardia and hypertension overnight. NTG up to 200, IV metop 2.5mg x1 --> PO metop 25, NTG weaning down this morning - Issues with bladder spasms starting this morning with associated spike in BPs O: Temp: [35.8 ??C (96.4 ??F)-37.7 ??C (99.9 ??F)] Heart Rate: [87-117] Resp: [8-31] BP: (93-139)/(59-68) SpO2: [91 %-100 %] Heart Rate from SPO2: [88 bpm-116 bpm] Hemodynamics: Baseline EF 56% ==> 70% postop 4L NC Art pH/pCO2/pO2/HCO3: 7.42/33/84/20.8 (07/12 2246) ??? sodium chloride 0.9% 30 mL/hr (07/13/16 1000) ??? propofol Stopped (07/12/16 2202) ??? fentaNYL Stopped (07/13/16 1032) ??? nitroGLYcerin 60 mcg/min (07/13/16 1000) ??? NORepinephrine NS Admit weight: 74.9kg Net change: +5kg Patient Vitals for the past 168 hrs: Weight 07/13/16 0600 79.9 kg (176 lb 2.4 oz) 07/12/16 0700 74.9 kg (165 lb 2 oz) 07/11/16 0414 75 kg (165 lb 5.5 oz) 07/10/16 0429 75.4 kg (166 lb 3.6 oz) 07/08/16 1827 77 kg (169 lb 12.1 oz) 07/08/16 1731 81.6 kg (180 lb) Intake/Output Summary (Last 24 hours) at 07/13/16 1144 Last data filed at 07/13/16 1100 Gross per 24 hour Intake 4819.32 ml Output 2915 ml Net 1904.32 ml + 180 PO + 3.2 IV + 536 cellsaver - 2.1 UOP - 100 emesis (shortly following extubation) - med CT x2 390cc, serosang, no air leak to WS this morning Exam: Awake, alert, having spasm when first seen on AM rounds, now more comfortable, appropriately interactive Sinus tachycardia ~110, nl s1/s2. Sternal dressing c/d/i Unlabored on NC. Good effort and cough. CTAB no wheeze/rhonchi. Med CT x2 as above. Abdomen soft, nontender Extremities warm, dry, trace pedal edema. Labs: Last 3 wbc, hgb, hct plt Recent Labs 07/13/16 0410 07/12/16 2055 07/12/16 1550 07/12/16 1430 07/12/16 0434 WBC 9.8* -- 11.0* -- 9.1 HGB 10.2* 11.1* 9.1* 8.5* 14.5 HCT 31.1* -- 27.5* 26.0* 43.5 PLATELET 136* -- 124* 172 181 Last 3 Lytes Recent Labs 07/13/16 0410 07/12/16 2055 07/12/16 0434 07/11/16 0404 NA 140 -- 138 139 K 4.2 4.1 4.1 4.2 CL 105 -- 99 97* CO2 22 -- 24 27 BUN 12 -- 13 11 CREATININE 0.61* -- 0.93 0.82 Last Ca, Mg, Phos Recent Labs 07/12/16 0434 CALCIUM 9.4 Last 3 Coags Recent Labs 07/12/16 1550 07/12/16 0434 07/11/16 0404 07/08/16 1740 PT 17.5* 12.9 -- -- 12.9 INR 1.4* 0.9 -- -- 0.9 PTT 29 26 90* < > 36* < > = values in this interval not displayed. Imaging: CXR 07/12: expected postop appearance Micro: No data A/P: 55M with PMHx of smoking, uncontrolled DM2, HTN and CAD now 1 Day Post-Op s/p CABG x4 (B/L JOSE + SVG x2). Overall progressing appropriately. Issues today are BP control, sinus tachycardia and bladder spasms, the last of which may be driving the other two to varying extent. We offered removing Burch but will see how he does with B&O suppository. Uptitrating metoprolol and Oxy, weaning off NTG and fent gtt. Spoke with DM Team who are following, high risk for sternal complication, continue insulin gtt today. Otherwise largely pathway. Can re-evaluate in PM but likely to remain in [facility] today. N: Fent gtt --> PO Oxy prn. APAP sched C: NSR. HDS off pressors. Metop 25mg q8. Wean NTG off. Atorvastatin 80 P: wean NC, encourage IS G: ADAT to CC2. Protonix. RBOs F/R: cont Burch for now. B&O suppository prn. Lasix 20mg IV BID H: ASA 81 I: periop cefurox E: lasix gtt + meal-associated. DM Team following LDA: R IJ, RAL, med CT x2 (D/C), Marcin, Edwadr Dispo: Likely remain CV[facility] today Discussed on AM rounds. KIMBERLY SANTIAGO MD Angy Mueller RCP - 07/12/2016 9:43 PM EDT Mechanical Ventilation Note Vent Settings: Servo I Ventilator Mode: SIMV Vol + PS Resp. Rate Set: 14 Tidal Volume Set: 510 VT/K PS Above PEEP (cm H2O): 10 Set PEEP (cm H2O): 8 Inspiratory Time: 1 Sec(s) Ventilator Measurements: Resp: 15 Tidal Volume Measured Exp.: 469 Minute Ventilation Total Exhaled (L/min): 7.1 Mean Airway Pressure (cm H2O): 11 Peak Inspiratory Pressure: 19 Plateau Pressure (cm H2O): 16 PEEP Total (cmH2O): 9 cmH20 ETT: 8.0 placed at: 24 cm at the teeth/gum. Breath Sounds: Clear/diminished Secretions: Small ramon thick secretions Changes made this shift: Lung recruitment Indications for changes: ABG at 1907: 7.38/38/106/22/-3.1 CTICU Protocol: Yes Assessment: Pt received on above vent settings. Pt passed SBT this evening at 2256 and extubated to 4L NC. + cuff leak noted. BS clear, no stridor and + phonation. Plan: Continue to monitor and follow. Ellen Reyes RCP - 07/12/2016 6:25 PM EDT Received Pt from the OR and placed on the following initial vent settings: SIMV 510 x 14 + PEEP 8, 100% Initial post op AB.40/40/106/24 - Oxygen weaned to 60%. Plan: Wean oxygen to 40%, initiate SBT when the patient is awake enough to do so. Sujatha Kinney PILOT MANAGER - 07/12/2016 10:31 AM EDT customer account manager met with Pt for nearly an hour to discuss his psychosocial stressors - unemployment, medication costs, fuel assistance, food assistance, etc. customer account manager provided contact information for [facility] ([phone]) for food, fuel, utility assistance and [facility] office ([phone]) for fuel assistance, food stamps, utility assistance, vocational rehab. He reports having Medicaid in pending status after a [place]-hour visit [place] on Tuesday. customer account manager tried to support Pt about medication assistance through , VNA services, and financial assistance through to help pay bills. Social Security disability application may be in his future with support. He reports he has been relying on his 401K since he lost his brisa January 2016. Plan to follow up with Pt about his needs and Social Security Disability application. Sherwin Monterroso - 07/12/2016 8:15 AM EDT Inpatient Cardiology Progress Note Patient Name: Bertin Berry Service: S2 Responsible Attending: Darrius Cotter MD Admission Date/Time: 07/08/2016 at 7546 PCP: Zay Montilla MD at [phone] ID: Bertin Berry is a 55 year old male with a history of tobacco abuse, poorly controlled DM2(admission A1c 12.7%), HLD, HTN and depression, admitted 07/08 with an NSTEMI, with cardiac catheterization showing diffuse three-vessel disease, awaiting CABG Active Problems: Patient Active Problem List Diagnosis Code ??? Diabetes mellitus, type 2 E11.9 ??? Tobacco abuse Z72.0 ??? Hyperlipidemia E78.5 ??? Osteoarthritis M19.90 ??? Non ST elevation [place] due to severe 3vD-- awaiting for CABG Tuesday I21.4 ??? 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 Hypertension I10 ??? Financial difficulties--- barrier to medication use Z59.8 ??? Coronary artery disease I25.10 ??? Left groin hematoma-- noted 07/11/2016 S30.1XXA 24 hour events/subjective: - No chest pain, shortness of breath, nausea/vomiting, abdominal pain - Much improved groin pain - CABG planned for today, July 12 Telemetry: NSR, sinus arrhythmia Medications: ??? insulin glargine 30 Units Subcutaneous Q24H ??? insulin lispro 0-10 Units Subcutaneous TID WC ??? meTOPROLOL tartrate 37.5 mg Oral Q6H JANEEN ??? insulin lispro 1-6 Units Subcutaneous Q4H JANEEN ??? atorvastatin 80 mg Oral QPM ??? sodium chloride 0.9 % 5 mL Intravenous BID ??? nicotine 21 mg Transdermal Daily And ??? Patch Verification 1 patch Transdermal BID And ??? nicotine 1 patch Transdermal Daily ??? aspirin 81 mg Oral Daily ??? nitroGLYcerin Stopped (07/10/16 0552) potassium chloride OR potassium chloride, acetaminophen, sodium chloride 0.9 %, lidocaine, dextrose 50% OR glucagon (human recombinant), nitroGLYcerin Physical Exam: Last value Range last 24 hrs Temperature Temp: 36.7 ??C (98.1 ??F) Temp: [36.7 ??C (98.1 ??F)-37 ??C (98.6 ??F)] Heart Rate Heart Rate: 81 Heart Rate: [76-104] Blood Pressure BP: 110/59 BP: (110-156)/(59-81) Respiratory Rate Resp: 18 Resp: [18] SpO2 SpO2: 98 % SpO2: [98 %-100 %] Intake/Output Summary (Last 24 hours) at 07/12/16 0817 Last data filed at 07/12/16 0600 Gross per 24 hour Intake 880 ml Output 2475 ml Net -1595 ml Physical exam: General: NAD HEENT: NC/AT, EOMI, sclera anicteric, MMM Neck: Supple, no JVD appreciated Cardiovascular: RRR, normal S1/S2, no M/R/G appreciated. L groin site shows resolving ecchymosis, hematoma now roughly 2-3 cm in length by palpation. Respiratory: CTAB, no wheezes, rales or rhonchi, no increased work of breathing on room air Abd: Soft, non-tender, non-distended, NABS Extrem: Warm, no edema Neuro: A&Ox4, no focal deficits Skin: Warm and dry without lesions Labs: Recent Labs 07/12/16 0434 07/11/16 0404 07/10/16 0504 WBC 9.1 10.6* 10.9* HGB 14.5 15.0 14.9 HCT 43.5 45.5 44.7 PLATELET 181 206 180 Recent Labs 07/12/16 0434 07/11/16 0404 07/09/16194607/09/16 0130 07/08/16 1740 NA 138 139 -- 136 133* K 4.1 4.2 4.5 3.7 4.6 CL 99 97* -- 94* 91* CO2 24 27 -- 25 21* BUN 13 11 -- 9* 10 CREATININE 0.93 0.82 -- 0.70* 0.77* GLUCOSE -- 223* -- 270* 419* CALCIUM 9.4 9.5 -- 8.9 9.8 MAGNESIUM 0.69 -- -- -- -- Recent Labs 07/08/16 1740 PROT 7.7 ALBUMIN 4.4 BILITOT 0.3 BILIDIR 0.1 AST 247* ALT 41 ALKPHOS 112 Recent Labs 07/12/16 0434 07/11/16 0404 07/10/16 2035 07/08/16 1740 INR 0.9 -- -- -- 0.9 PTT 26 90* 90* < > 36* < > = values in this interval not displayed. Cardiac Enzymes: Recent Labs 07/09/16194607/09/16 0940 07/09/16 0130 CK 921* 1648* 2875* TROPONINT 2.03* 4.26* 9.50* Studies: - CXR 07/08: No acute cardiopulmonary process. - Cardiac Catheterization 07/08: 1. The left ventricular chamber size is [...] findings as noted in the full report. Arterial duplex left leg 07/12: Possible fistula between common femoral vein and femoral artery ?? Assessment: Bertin Berry is a 55 year old male with a history of tobacco abuse, poorly controlled DM2 (admission A1c 12.7%), HLD, HTN and depression, admitted 07/08 with an NSTEMI, with cardiac catheterization showing diffuse three-vessel disease, currently awaiting CABG. He remains afebrile, hemodynamically stable and free of chest pain. Hematoma at left groin cath site improving. Vascular studies show possible AV fistula. Will not intervene now, may reassess after CABG. # NSTEMI - continue ASA 81 mg PO daily - continue atorvastatin 80 mg PO daily - metoprolol 37.5 mg PO q6h - s/p 300 mg clopidogrel load on admission; holding additional clopidogrel pre-operatively - weaned off nitro drip this morning; continue to monitor for chest pain - heparin gtt off due to left groin hematoma # Left groin - Hematoma resolving - vascular consult appreciated. Possible AV fistula. No urgent indication for intervention. # DM2, poorly controlled - A1c on admission elevated at 12.7% - appreciate diabetes management team recommendations - glargine 30U SQ daily - initiate meal-associated insulin - initiate custom sliding scale - will require additional education prior to discharge # HLD - continue atorvastatin 80 mg PO daily - encourage total smoking cessation # HTN - metoprolol to 37.5 mg PO q6h - defer KAILEE-I until post-operative # PVD - continue ASA 81 mg PO daily - continue to monitor for claudication - has dopplerable lower extremity pulses at baseline # History of medication non-compliance - appreciate social work involvement for medication assistance # Routine/PPX: - DVT ppx: heparin drip - Diet: carb-controlled - Dispo: CSCU status until CABG - CODE STATUS: FULL CODE Roe Castellanos MD S2 Cardiology, pager [phone] 07/12/2016 Associated attestation - Rolf Zayas MD - 07/12/2016 5:09 PM EDT Cardiology Attending Note I interviewed and examined the patient during comprehensive bedside rounds. I concur with the summary of interval events, active hospital-focused problem list and plan of care. I personally reviewed the medications, laboratory results, treatment decisions and updated the patient. Briefly, this 55-year-old gentleman with poorly controlled diabetes, hypertension, tobacco abuse, and three-vessel disease on recent coronary angiography who is going for CABG later today. He is clinically stable and feeling well this Morning. Rolf Zayas MD Cardiovascular Medicine Pager: [phone] This patient meets or has met medical criteria to require an inpatient level of care, i.e. a minimumof two midnights in the hospital with multiple complex problems. Marbella Granados RN - 07/11/2016 11:29 PM EDT 19:30- Assessed patients left groin site at change of shift with previous RN. Swelling and firmness noted (which was a change from the last check per RN)- pedal pulses and sensation intact. MD Butt paged and in to assess- site marked. No interventions at this time. Pt lying down and resting in bed. 21:55- Site assessed- area noted to be firm again. MD Butt notified. No interventions at this time.Will continue to monitor. 00:00 Site assessed- area same as 21:55 check. Will continue to monitor 02:00 Site assessed area remains unchanged. Pulses and sensation intact. Will continue to monitor. 05:00 Site assessed- area remains unchanged- (still a small area of firmness) MD Butt aware. No neworders. Will continue to monitor. Kem Chatman MD - 07/11/2016 2:11 PM EDT Inpatient Cardiology Progress Note Patient Name: Bertin Berry Service: S2 Responsible Attending: Darrius Cotter MD Admission Date/Time: 07/08/2016 at 1727 PCP: Zay Montilla MD at [phone] ID: Bertin Berry is a 55 year old male with a history of tobacco abuse, poorly controlled DM2(admission A1c 12.7%), HLD, HTN and depression, admitted 07/08 with an NSTEMI, with cardiac catheterization showing diffuse three-vessel disease, currently awaiting CABG Active Problems: Patient Active Problem List Diagnosis Code ??? Diabetes mellitus, type 2 E11.9 ??? Tobacco abuse Z72.0 ??? Hyperlipidemia E78.5 ??? Osteoarthritis M19.90 ??? Non ST elevation [place] due to severe 3vD-- awaiting for CABG Tuesday I21.4 ??? Peripheral artery disease--- severe. I73.9 ??? Hypertension I10 ??? Financial difficulties--- barrier to medication use Z59.8 ??? Coronary artery disease I25.10 24 hour events/subjective: - No chest pain, shortness of breath, nausea/vomiting, abdominal pain - Pain in left groin, hematoma found on exam - Heparin drip stopped - CABG tentatively planned for July 12 Telemetry: NSR, sinus arrhythmia Medications: ??? insulin glargine 30 Units Subcutaneous Q24H ??? insulin lispro 0-10 Units Subcutaneous TID WC ??? meTOPROLOL tartrate 37.5 mg Oral Q6H JANEEN ??? insulin lispro 1-6 Units Subcutaneous Q4H JANEEN ??? atorvastatin 80 mg Oral QPM ??? sodium chloride 0.9 % 5 mL Intravenous BID ??? nicotine 21 mg Transdermal Daily And ??? Patch Verification 1 patch Transdermal BID And ??? nicotine 1 patch Transdermal Daily ??? aspirin 81 mg Oral Daily ??? heparin (porcine) Stopped (07/11/16 1048) ??? nitroGLYcerin Stopped (07/10/16 0593) heparin (porcine) AND heparin (porcine), potassium chloride OR potassium chloride, acetaminophen, sodium chloride 0.9 %, lidocaine, dextrose 50% OR glucagon (human recombinant), nitroGLYcerin Physical Exam: Last value Range last 24 hrs Temperature Temp: 36.8 ??C (98.2 ??F) Temp: [36.5 ??C (97.7 ??F)-36.8 ??C (98.2 ??F)] Heart Rate Heart Rate: 97 Heart Rate: [74-97] Blood Pressure BP: 115/77 BP: (112-153)/(66-99) Respiratory Rate Resp: 18 Resp: [16-18] SpO2 SpO2: 98 % SpO2: [96 %-100 %] Intake/Output Summary (Last 24 hours) at 07/11/16 1411 Last data filed at 07/11/16 1212 Gross per 24 hour Intake 2115.8 ml Output 2875 ml Net -759.2 ml Physical exam: General: NAD HEENT: NC/AT, EOMI, sclera anicteric, MMM Neck: Supple, no JVD appreciated Cardiovascular: RRR, normal S1/S2, no M/R/G appreciated Respiratory: CTAB, no wheezes, rales or rhonchi, no increased work of breathing on room air Abd: Soft, non-tender, non-distended, NABS Extrem: Warm, no edema Neuro: A&Ox4, no focal deficits Skin: Warm and dry without lesions Labs: Recent Labs 07/11/16 0404 07/10/16 0504 07/09/16 0130 WBC 10.6* 10.9* 12.2* HGB 15.0 14.9 15.1 HCT 45.5 44.7 45.0 PLATELET 206 180 202 Recent Labs 07/11/16 0404 07/09/16 1947 07/09/16 0130 07/08/16 1740 NA 139 -- 136 133* K 4.2 4.5 3.7 4.6 CL 97* -- 94* 91* CO2 27 -- 25 21* BUN 11 -- 9* 10 CREATININE 0.82 -- 0.70* 0.77* GLUCOSE 223* -- 270* 419* CALCIUM 9.5 -- 8.9 9.8 Recent Labs 07/08/16 1740 PROT 7.7 ALBUMIN 4.4 BILITOT 0.3 BILIDIR 0.1 AST 247* ALT 41 ALKPHOS 112 Recent Labs 07/11/16 0404 07/10/16 2035 07/10/16 1202 07/08/16 1740 INR -- -- -- -- 0.9 PTT 90* 90* 58* < > 36* < > = values in this interval not displayed. Cardiac Enzymes: Recent Labs 07/09/16 1947 07/09/16 0940 07/09/16 0130 CK 921* 1648* 2875* TROPONINT 2.03* 4.26* 9.50* Studies: - CXR 07/08: No acute cardiopulmonary process. - Cardiac Catheterization 07/08: 1. The left ventricular chamber size is [...] as noted in the full report. ?? Assessment: Bertin Berry is a 55 year old male with a history of tobacco abuse, poorly controlled DM2 (admission A1c 12.7%), HLD, HTN and depression, admitted 07/08 with an NSTEMI, with cardiac catheterization showing diffuse three-vessel disease, currently awaiting CABG. He remains afebrile, hemodynamically stable and free of chest pain. Blood glucose control has improved in the context of a new insulin regimen. He has a new hematoma at left groin cath site - will consult vascular and stop heparin drip. # NSTEMI - continue ASA 81 mg PO daily - continue atorvastatin 80 mg PO daily - metoprolol 37.5 mg PO q6h - s/p 300 mg clopidogrel load on admission; holding additional clopidogrel pre-operatively - weaned off nitro drip this morning; continue to monitor for chest pain - heparin gtt off due to left groin hematoma # Left groin hematoma - vascular consult - d/c heparin gtt # DM2, poorly controlled - A1c on admission elevated at 12.7% - appreciate diabetes management team recommendations - glargine 30U SQ daily - initiate meal-associated insulin - initiate custom sliding scale - will require additional education prior to discharge # HLD - continue atorvastatin 80 mg PO daily - encourage total smoking cessation # HTN - metoprolol to 37.5 mg PO q6h - defer KAILEE-I until post-operative # PVD - continue ASA 81 mg PO daily - continue to monitor for claudication - has dopplerable lower extremity pulses at baseline # History of medication non-compliance - appreciate social work involvement for medication assistance # Routine/PPX: - DVT ppx: heparin drip - Diet: carb-controlled - Dispo: CSCU status until CABG - CODE STATUS: FULL CODE Kem Chatman MD S2 Cardiology, pager [phone] 07/11/2016 Associated attestation - Darrius Cotter MD - 07/11/2016 2:42 PM EDT Cardiology Attending Note I interviewed and examined the patient during comprehensive bedside rounds. I concur with the summary of interval events, active hospital-focused problem list and plan of care. I personally reviewed the medications, laboratory results, treatment decisions and updated the patient. Active Hospital Problems Diagnosis ??? Non ST elevation IL due to severe 3vD-- awaiting for CABG Tuesday ??? Groin hematoma-- noted 07/11/2016 ??? Peripheral artery disease--- severe. ??? Hypertension ??? Financial difficulties--- barrier to medication use ??? Coronary artery disease ??? Diabetes mellitus, type 2 ??? Tobacco abuse Resolved Hospital Problems Diagnosis Date Resolved No resolved problems to display. Comment Feeling well this am except for discomfort in left groin. I palpated slowly expanding hematoma. Sizeof small potato. Held pressure for 20 mins. Heparin stopped. Was much smaller. Vascular surgery consulted. Will get CTA at their request. No angina. No heart failure. Will continue tx of diabetes. Darrius Cotter MD This patient meets or has met medical criteria to require an inpatient level of care, i.e. a minimumof two midnights in the hospital with multiple complex problems. Kyaw Bonds MD - 07/10/2016 2:31 PM EDT Follow Up Diabetes Consult Patient Interview: Bertin Berry is doing ok today, eating without problem, and still on only sliding scale with total insulin need of 49u/day yesterday. So we will give lantus at least 25u qPMnow and start meal-associated insulin from dinner to reduce postmeal hyperglycemia. A1c 12.7% as he stopped all his oral meds 8 mo prior and in glucotoxicity, requiring lots more insulin support initially. Target BG 90-180 range (not low due to ongoing 3vss CAD with plan for CABG Tuesday) FSBG over the last 24 h were ranging between 194-262mg/dl, requiring correction q4h around the clockand will start basal insulin now this PM to reduce the frequency of corrections especially overnightwhile sleeping. Current Regimen: Lantus 22 (none was given so-far since yesterday) =>25 units q pm starting soon today Novolog custom sliding scale if BG>140 (1u:20BG ratio) Recent Lab: Recent Results (from the past 24 hour(s)) POCT Glucose Result Value Ref Range POC Glucose 275 (H) 65 - 199 mg/dL POCT Glucose Result Value Ref Range POC Glucose 290 (H) 65 - 199 mg/dL Cardiac Enzymes Result Value Ref Range Troponin-T 2.03 (H) <=0.03 ng/mL CK, Total 921 (H) 0 - 200 unit/L Potassium Result Value Ref Range Potassium 4.5 3.5 - 5.0 mmol/L Blue Tube HOLD Result Value Ref Range Blue Hold Sample in lab. APTT Result Value Ref Range PTT 45 (H) 25 - 35 sec POCT Glucose Result Value Ref Range POC Glucose 262 (H) 65 - 199 mg/dL POCT Glucose Result Value Ref Range POC Glucose 180 65 - 199 mg/dL POCT Glucose Result Value Ref Range POC Glucose 148 65 - 199 mg/dL POCT Glucose Result Value Ref Range POC Glucose 194 65 - 199 mg/dL APTT Result Value Ref Range PTT 64 (H) 25 - 35 sec Hemogram Result Value Ref Range WBC 10.9 (H) 4.0 - 9.5 x10(3)/mcL RBC 5.08 4.58 - 5.54 x10(6)/mcL Hemoglobin 14.9 13.7 - 16.5 gm/dL Hematocrit 44.7 40.5 - 48.5 % MCV 88.0 82.9 - 93.1 fL MCH 29.3 27.5 - 32.1 pg MCHC 33.3 32.0 - 35.7 gm/dL Platelets 180 145 - 357 x10(3)/mcL RDWSD 42.4 36.0 - 45.0 fL RDWCV 13.0 11.4 - 13.8 % MPV 11.1 7.6 - 12.9 fL nRBC % Auto 0.0 % nRBC Abs Auto 0.000 0.000 - 0.000 x10(3)/mcL Differential, Automated Result Value Ref Range Neutrophils % 46.1 % Neutr Abs (ANC) 5.02 1.70 - 6.10 x10(3)/mcL Lymphocytes % 43.6 % Lymphocytes Abs 4.8 (H) 0.9 - 3.2 x10(3)/mcL Monocytes % 7.3 % Monocyte Abs 0.8 0.3 - 0.9 x10(3)/mcL Eosinophils % 1.5 % Eosinophils Abs 0.2 0.0 - 0.4 x10(3)/mcL Basophils % 0.6 % Basophils Abs 0.1 0.0 - 0.1 x10(3)/mcL Immature Gran % 0.90 % Madhuri Gran Abs 0.10 (H) 0.00 - 0.04 x10(3)/mcL POCT Glucose Result Value Ref Range POC Glucose 194 65 - 199 mg/dL APTT Result Value Ref Range PTT 58 (H) 25 - 35 sec POCT Glucose Result Value Ref Range POC Glucose 221 (H) 65 - 199 mg/dL Recommendations: 1. To start lantus 25 units qPM (total insulin need over the past 24h was 49 u/day and still high BG). We will increase the dose tomorrow if needed based on the correction overnight tonight. 2. To start meal-associated Novolog 0-8 units tid ac (1unit:10 gm carb) as planned from dinner todayto help reduce postmeal hyperglycemia 3. Cont. current custom sliding scale for correction of high BG>140 q4h CORRECTION BOLUS Custom BG 140 - 160?Give 1 unit? BG 161 - 180?Give 2 units? BG 181 - 200?Give 3 units BG 201 - 220?Give 4 units BG 221 - 240?Give 5 units? BG greater than 240, give 6 units and recheck BG in 2 hours. If BG remains greater than 240, repeat 6 units (no more than three times) & call for new basal insulin orders.?If less than 240 aftertwo hours, give no insulin and resume prior schedule. 4. To switch to insulin gtt for CABG on Tuesday (Pt will be NPO after midnight on Tuesday). 20 minutes of this 35 minute visit was spent with the patient in counseling on diabetes and treatment plan, reviewing all glucose and insulin data as well as relevant laboratory results with the patient, and coordination of care on the inpatient unit (e.g. discussed new treatment plan with RN and/or primary team, motorcycle mechanic and/or diabetes nurse educator, etc). Trista Vora - 07/10/2016 12:11 PM EDT Inpatient Cardiology Progress Note Patient Name: Bertin Berry Service: S2 Responsible Attending: Darrius Cotter MD Admission Date/Time: 07/08/2016 at 1727 PCP: Zay Montilla MD at [phone] ID: Bertin Berry is a 55 year old male with a history of tobacco abuse, poorly controlled DM2(admission A1c 12.7%), HLD, HTN and depression, admitted 07/08 with an NSTEMI, with cardiac catheterization showing diffuse three-vessel disease, currently awaiting CABG Active Problems: Patient Active Problem List Diagnosis Code ??? Diabetes mellitus, type 2 E11.9 ??? Tobacco abuse Z72.0 ??? Hyperlipidemia E78.5 ??? Osteoarthritis M19.90 ??? Non ST elevation [place] due to severe 3vD-- awaiting for CABG Tuesday I21.4 ??? Peripheral artery disease--- severe. I73.9 ??? Hypertension I10 ??? Financial difficulties--- barrier to medication use Z59.8 ??? Coronary artery disease I25.10 24 hour events/subjective: - no acute events overnight - blood glucose control improved since admission - remains on heparin drip, weaned off nitro drip with no recurrent chest pain - CABG tentatively planned for July 12 - ROS: denies fevers, chills, chest pain, palpitations, shortness of breath, abdominal pain, nausea,vomiting, diarrhea, constipation, lower extremity swelling; notes discomfort with PIV in left antecubital fossa Telemetry: NSR with rare PVCs, rate 70s - 80s Medications: ??? meTOPROLOL tartrate 37.5 mg Oral Q6H JANEEN ??? atorvastatin 80 mg Oral QPM ??? insulin lispro 3-12 Units Subcutaneous Q4H JANEEN ??? sodium chloride 0.9 % 5 mL Intravenous BID ??? nicotine 21 mg Transdermal Daily And ??? Patch Verification 1 patch Transdermal BID And ??? nicotine 1 patch Transdermal Daily ??? aspirin 81 mg Oral Daily ??? heparin (porcine) 1,650 Units/hr (07/10/16 0549) ??? nitroGLYcerin Stopped (07/10/16 0552) heparin (porcine) AND heparin (porcine), potassium chloride OR potassium chloride, acetaminophen, sodium chloride 0.9 %, lidocaine, dextrose 50% OR glucagon (human recombinant), nitroGLYcerin Physical Exam: Last value Range last 24 hrs Temperature Temp: 36.9 ??C (98.4 ??F) Temp: [36.7 ??C (98.1 ??F)-37.1 ??C (98.8 ??F)] Heart Rate Heart Rate: 85 Heart Rate: [73-87] Blood Pressure BP: 148/75 BP: (115-149)/(72-85) Respiratory Rate Resp: 18 Resp: [16-18] SpO2 SpO2: 98 % SpO2: [96 %-99 %] Intake/Output Summary (Last 24 hours) at 07/10/16 1218 Last data filed at 07/10/16 0939 Gross per 24 hour Intake 1110 ml Output 1550 ml Net -440 ml Physical exam: General: Pleasant, conversant, mildly anxious middle-aged male, sitting in bedside chair in no acutedistress HEENT: NC/AT, EOMI, sclera anicteric, MMM, poor dentition Neck: Supple, no JVD appreciated Cardiovascular: RRR, normal S1/S2, no M/R/G appreciated Respiratory: CTAB, no wheezes, rales or rhonchi, no increased work of breathing on room air Abd: Soft, non-tender, non-distended, NABS Extrem: Warm, no edema Neuro: A&Ox4, no focal deficits Skin: Warm and dry without lesions, +diffuse tattoos Labs: Recent Labs 07/10/16 0504 07/09/16 0130 07/08/16 1740 WBC 10.9* 12.2* 14.0* HGB 14.9 15.1 15.1 HCT 44.7 45.0 44.3 PLATELET 180 202 217 Recent Labs 07/09/16 1947 07/09/16 0130 07/08/16 1740 NA -- 136 133* K 4.5 3.7 4.6 CL -- 94* 91* CO2 -- 25 21* BUN -- 9* 10 CREATININE -- 0.70* 0.77* GLUCOSE -- 270* 419* CALCIUM -- 8.9 9.8 Recent Labs 07/08/16 1740 PROT 7.7 ALBUMIN 4.4 BILITOT 0.3 BILIDIR 0.1 AST 247* ALT 41 ALKPHOS 112 Recent Labs 07/10/16 0503 07/09/168 07/09/16 0940 07/08/16 1740 INR -- -- -- -- 0.9 PTT 64* 45* 28 < > 36* < > = values in this interval not displayed. Cardiac Enzymes: Recent Labs 07/09/16194607/09/16 0940 07/09/16 0130 CK 921* 1648* 2875* TROPONINT 2.03* 4.26* 9.50* Studies: - CXR 07/08: No acute cardiopulmonary process. - Cardiac Catheterization 07/08: 1. The left ventricular chamber size is [...] as noted in the full report. ?? Assessment: Bertin Berry is a 55 year old male with a history of tobacco abuse, poorly controlled DM2 (admission A1c 12.7%), HLD, HTN and depression, admitted 07/08 with an NSTEMI, with cardiac catheterization showing diffuse three-vessel disease, currently awaiting CABG. He remains afebrile, hemodynamically stable and free of chest pain; his nitro drip was weaned off this morning. Blood glucose control has improved in the context of a new insulin regimen. He will remain on the heparin drip while CABG timing is determined. Continued care as outlined below: # NSTEMI - continue ASA 81 mg PO daily - continue atorvastatin 80 mg PO daily - increase metoprolol to 37.5 mg PO q6h - s/p 300 mg clopidogrel load on admission; holding additional clopidogrel pre-operatively - weaned off nitro drip this morning; continue to monitor for chest pain - heparin gtt to continue until CABG timing determined # DM2, poorly controlled - A1c on admission elevated at 12.7% - appreciate diabetes management team recommendations - initiate glargine 22 units SQ daily - initiate meal-associated insulin: 1:10 [id number] ratio - initiate custom sliding scale - will require additional education prior to discharge # HLD - continue atorvastatin 80 mg PO daily - encourage total smoking cessation # HTN - increase metoprolol to 37.5 mg PO q6h today - defer KAILEE-I until post-operative # PVD - continue ASA 81 mg PO daily - continue to monitor for claudication - has dopplerable lower extremity pulses at baseline # History of medication non-compliance - appreciate social work involvement for medication assistance # Routine/PPX: - DVT ppx: heparin drip - Diet: carb-controlled - Dispo: CSCU status until CABG - CODE STATUS: FULL CODE Trista Vora MD, PGY-3 S2 Cardiology, pager [phone] 07/10/2016 Associated attestation - Darrius Cotter MD - 07/10/2016 5:55 PM EDT Cardiology Attending Note I interviewed and examined the patient during comprehensive bedside rounds. I concur with the summary of interval events, active hospital-focused problem list and plan of care. I personally reviewed the medications, laboratory results, treatment decisions and updated the patient. Active Hospital Problems Diagnosis ??? Non ST elevation IL due to severe 3vD-- awaiting for CABG Tuesday ??? Peripheral artery disease--- severe. ??? Hypertension ??? Financial difficulties--- barrier to medication use ??? Coronary artery disease ??? Diabetes mellitus, type 2 ??? Tobacco abuse Resolved Hospital Problems Diagnosis Date Resolved No resolved problems to display. Comment A bit anxious about surgery but less so than yesterday. No angina. No heart failure. No arrhythmias.Glucose better. Nicotine craving tolerable. BB dose increased to reduce MVO2. Darrius Cotter MD This patient meets or has met medical criteria to require an inpatient level of care, i.e. a minimumof two midnights in the hospital with multiple complex problems. Darrius Cotter MD - 07/09/2016 12:40 PM EDT Inpatient Cardiology Progress Note Patient Name: Bertin Berry Service: S2 Responsible Attending: Darrius Cotter MD Admission Date/Time: 07/08/2016 at 1727 PCP: Zay Montilla MD at [phone] ID: Bertin Berry is a(n) 55 y.o. male with NSTEMI, 3 vessel disease on cath, now awaiting CABG Active Problems: Patient Active Problem List Diagnosis Code ??? Diabetes mellitus, type 2 E11.9 ??? Tobacco abuse Z72.0 ??? Hyperlipidemia E78.5 ??? Osteoarthritis M19.90 ??? Non ST elevation IL due to severe 3vD-- awaiting for CABG Tuesday I21.4 ??? Peripheral artery disease--- severe. I73.9 ??? Hypertension I10 24 Hour Events/Subjective: - No chest pain or SOB this AM - Catheterization showed 3 vessel disease of LAD, LCx, and RCA - CT surgery consulted, CABG planned for early next week Telemetry: NSR Physical Exam: Last value Range last 24 hrs Temperature Temp: 36.6 ??C (97.9 ??F) Temp: [35.6 ??C (96.1 ??F)-37 ??C (98.6 ??F)] Heart Rate Heart Rate: 82 Heart Rate: [76-99] Blood Pressure BP: (!) 143/91 BP: (118-173)/(74-98) Respiratory Rate Resp: 14 Resp: [10-22] SpO2 SpO2: 98 % SpO2: [88 %-99 %] Intake/Output Summary (Last 24 hours) at 07/09/16 1320 Last data filed at 07/09/16 1200 Gross per 24 hour Intake 1053.95 ml Output 2600 ml Net -1546.05 ml General: NAD HEENT: Oropharynx clear with no lesions, MM moist, neck supple Cardiovascular: Normal S1 and S2, no m/r/g, no S3 or S4 appreciated Respiratory: CTA b/l, no wheezes or crackles Abd: Normoactive BS, soft, NT, ND Extrem: No LE edema, 2+ DP pulse on left, Dopplerable pulse on right, no hematoma, no bleeding on R cath site Neuro: A&Ox3, no focal deficits Skin: Warm and dry without lesions Meds: Scheduled Meds: ??? insulin lispro 2-8 Units Subcutaneous Q4H ??? atorvastatin 80 mg Oral QPM ??? meTOPROLOL tartrate 25 mg Oral Q6H JANEEN ??? sodium chloride 0.9 % 5 mL Intravenous BID ??? nicotine 21 mg Transdermal Daily And ??? Patch Verification 1 patch Transdermal BID And ??? nicotine 1 patch Transdermal Daily ??? aspirin 81 mg Oral Daily Continuous Infusions: ??? heparin (porcine) 900 Units/hr (07/09/16 0200) ??? nitroGLYcerin 15 mcg/min (07/09/16 0600) PRN Meds:.heparin (porcine) AND heparin (porcine), potassium chloride OR potassium chloride,acetaminophen, sodium chloride 0.9 %, lidocaine, dextrose 50% OR glucagon (human recombinant), nitroGLYcerin Labs: Recent Labs 07/09/16 01307/08/16 174 WBC 12.2* 14.0* HGB 15.1 15.1 HCT 45.0 44.3 PLATELET 202 217 Recent Labs 07/09/16 01307/08/16 1740 NA 136 133* K 3.7 4.6 CL 94* 91* CO2 25 21* BUN 9* 10 CREATININE 0.70* 0.77* GLUCOSE 270* 419* CALCIUM 8.9 9.8 Recent Labs 07/08/16 1740 PROT 7.7 ALBUMIN 4.4 BILITOT 0.3 BILIDIR 0.1 AST 247* ALT 41 ALKPHOS 112 Recent Labs 07/09/16 0940 07/09/16 0130 07/08/16 1740 INR -- -- 0.9 PTT 28 20* 36* Cardiac Enzymes: Recent Labs 07/09/16 0940 07/09/16 0130 07/08/16 1740 CK 1648* 2875* 3402* TROPONINT 4.26* 9.50* 7.41* Studies/Imaging: Dx Chest Result Date: 07/08/2016 No acute cardiopulmonary process. Cardiac Catheterization: 1. The left ventricular chamber size is [...] as noted in the full report. ?? Assessment and Plan: Bertin Berry is a(n) 55 y.o. male with PMH ASCVD (NSTEMi 2006), COPD, depression, DM, HTN, HLD, active smoking, medication noncompliance here for NSTEMI - found to have three vessel disease oncatheterization, now with plan for CABG early next week. #NSTEMI - CABG early next week - Remains asymptomatic this AM - Continue heparin drip for total 48 hours (until night of 07/10) - ASA 81 daily - Will hold plavix for surgery, s/p loading dose 300mg yesterday - Atorvastatin 80mg daily - TTE today - Nitro drip - pt asymptomatic will attempt to wean - Nitro SL prn #DM - Hemoglobin A1c very elevated to 12.7 - Will keep on SSI and consider adding low dose basal insulin depending on glycemic control #HLD - Triglyceride 1000, LDL 159, HDL 23 - Continue atorvastatin 80mg #HTN - Will increase metoprolol to 25mg q6h as pt still has high HR and is hypertensive - Will hold on Kailee inhibitor due to planned surgery #PVD - Continue to monitor for symptoms of claudication. - Pulses found with doppler #Medication non-compliance - Social work consult for difficulty with payment DVT ppx: on heparin drip GI ppx: tolerating PO Diet: Cardiac, carb counting Code Status: Full Code DARRIUS COTTER MD Team Pager: [phone] Cardiology Attending Note I interviewed and examined the patient during comprehensive bedside rounds. I concur with the summary of interval events, active hospital-focused problem list and plan of care. I personally reviewed the medications, laboratory results, treatment decisions and updated the patient. Active Hospital Problems Diagnosis ??? Non ST elevation IL due to severe 3vD-- awaiting for CABG Tuesday ??? Peripheral artery disease--- severe. ??? Hypertension ??? Diabetes mellitus, type 2 ??? Tobacco abuse Resolved Hospital Problems Diagnosis Date Resolved No resolved problems to display. Comment Comfortable this am. Still absorbing news of diagnosis. Echo shows EF of 56%. Will work on optimizing medically for surgery Will increase antihypertensive No clopidogrel and no ACEI Surgery tentatively set for Tuesday Darrius Cotter MD This patient meets or has met medical criteria to require an inpatient level of care, i.e. a minimumof two midnights in the hospital with multiple complex problems. Sarita Ureña RN - 07/09/2016 10:35 AM EDT Pt arrived to the unit via wheelchair. Pt initiated on tele, oriented to room, call le within reach. VSS Will continue to monitor documented in this encounter H&P Notes Valentino Pérez MD - 07/12/2016 12:05 PM EDT No interval change, the ct scan has been reivewed. Pt ready for surgery. Source Note - Darrius Cotter MD - 07/08/2016 7:00 PM EDT Cardiology Admission History and Physical Patient Name: Bertin Berry Service: S2 Team Responsible Attending: Dr. Cyndee MD PCP: Zay Montilla MD PCP phone #: [phone] ID/Chief Complaint: Chest pain History of Present Illness: Bertin Berry is a 55 y.o. male with past medicla history significant for ASCVD (hospitalized for NSTEMI in 2006 cath showed nonobstructive CAD), COPD, depression, DM, HTN, HLD, active smoking and medication noncompliance (has not taken any medications in the last 8 months) who presented to [facility] ED with complaints of chest pain. Patient states that earlier today, around 10 AM, when he started shoveling his driveway and started to experience pain and pressurein the center of his chest that radiated down both arms. He experienced this same pain on Tuesday when he was shoveling snow. It went away on Tuesday when he stopped shoveling. He did have some associated nausea and vomited once. Today however it did not stop, and persisted for 4 hours. He had associated nausea, diaphoresis and shortness of breath. He called the ambulance and was given 324 aspirin inroute and 2 SL nitro tablets. He stated his pain got better with the SL nitro, although it did persist. At [facility] he was given plavix 300 mg at the OSH and put on a heparin gtt. He was also given metoprolol 5 mg IV x 1 and morphine. He states he still has some residual chest discomfort, although he feels markedly improved from whenhe initially presented. He has been in his normal state of health lately without any recent fevers, chills, viral illnesses. He has chronic episodes of diverticulitis that he doesn't seek treatment for. He has had to have surgery in the past for his diverticulitis. Patient has not taken any medications for the last 8 months, states this is due to his finances. He is currently unemployed and was fired from his job. OSH vitals HR 95, BP 158/107, 100% on RA OSH labs prior to transfer: CBC: WBC 10.5 Hbg 15.7 Platelet 199 CMP: Glucose 564 Creatinine 1.07 BUN 11 Sodium 130 Potassium 4.3 Chloride 92 Cardiac enzymes: Troponin I 35.93 proBNP 62 Other labs: INR 1.1 Review of Systems: GENERAL HEENT CV PULM x All negative x All negative All negative x All negative Weight loss Headache x Chest Pain Non-productive cough Weight gain Vision change Palpitations Productive cough Fevers Sinus congestion Orthopnea Wheezing Chills Hoarseness LE edema Hemoptysis Night sweats Epistaxis PND Pleuritic pain Fatigue Syncope SOB Claudication CARRILLO MSK RENAL ENDO GI x All negative x All negative x All negative All negative Arthralgias Frequency Heat intolerance Blood in stool Myalgias Urgency Cold intolerance Dysphagia Weakness Hematuria Polydipsia Odynophagia Stiffness Flank pain Polyphagia Abdominal discomfort Dysuria Cushingoid Constipation Foamy urine x Diarrhea Discharge Nausea/Vomiting LYMPH SKIN NEURO PSYCH x All negative x All negative x All negative x All negative Swollen nodes Rash Seizures Depressed affect Tender nodes Ulcers Tremors Occupational stress Diffuse nodes Bruising Spasticity Anxiety Local nodes Tanned skin Focal weakness Insomnia Night sweats Telangiectasias Diplopia Paresthesias Dizziness Problem List/Past Medical History Patient Active Problem List Diagnosis ??? NSTEMI (non-ST elevated myocardial infarction) ??? DM2 (diabetes mellitus, type 2) ??? Tobacco abuse ??? Hyperlipidemia ??? OA (osteoarthritis) Meds: Has not taken any medications in the past 8 months Allergies: No Known Allergies Family History: Father had an [place] in his 50s Denies any other family history of heart problems Social History: Tobacco: active smoking 1 pack per day, has a long smoking history, about 50 pack years EtOH: daily use, drinks 2-3 beers, has never had any issues with withdrawal Illicits: occassional marijuana use Vocation: currently unemployed Vitals: Last value Range last 24 hrs Temperature Temp: 37 ??C (98.6 ??F) Temp: [36.9 ??C (98.4 ??F)-37 ??C (98.6 ??F)] Heart Rate Heart Rate: 78 Heart Rate: [78-99] Blood Pressure BP: 141/79 BP: (121-173)/(74-98) Respiratory Rate Resp: 22 Resp: [10-22] SpO2 SpO2: 95 % SpO2: [88 %-98 %] Examination: General: Pleasant, alert, appropriate, in NAD lying comfortably in bed HEENT: EOMI, PERRL, anicteric sclera. Oropharynx clear w/o lesions. Moist mucous membranes Cardiac: Normal S1 and S2, Regular rate and rhythm; No murmrs/gallops/rubs appreciated Respiratory: Nonlabored. Clear to auscultation bilaterally anteriorly Abd: + BS; soft, slightly tender to palpation diffusely Ext: WWP without le edema, cyanosis or clubbing. DPP 2+ bilaterally. Sheath in L groin Neuro: II-XII grossly intact. Alert and orientated, no-focal deficits, sensation intact to crude touch Laboratory: CBC: Recent Labs 07/08/16 1740 WBC 14.0* HGB 15.1 PLATELET 217 Chemistry: Recent Labs 07/08/16 1740 NA 133* K 4.6 CL 91* CO2 21* BUN 10 CREATININE 0.77* GLUCOSE 419* Recent Labs 07/08/16 1740 CALCIUM 9.8 LFT's: Recent Labs 07/08/16 1740 BILITOT 0.3 BILIDIR 0.1 ALBUMIN 4.4 ALKPHOS 112 ALT 41 AST 247* Coags: Recent Labs 07/08/16 1740 PT 12.9 INR 0.9 PTT 36* Cardiac enzymes: Recent Labs 07/08/16 1740 TROPONINT 7.41* CK 3402* Endocrine: Recent Labs 07/08/16 1740 TSH 5.02* Heme: No results for input(s): LDH, HAPTOGLOBIN, URICACID in the last 168 hours. Microbiology: None Diagnostic Studies: EKG 07/08/2016 15:28 at OSH NSR HR 89, some KEYONNA in inferior leads, Q waves in V1-V2 with some ST elevation V2, TWI avL, T wave flattening V6 Cardiac catheterization 07/08/2016 Coronary Angiography: Dominance: Right Left Main There was mild diffuse disease of the entire vessel segment of the left main artery. Left Anterior Descending There was mild diffuse disease of the entire vessel segment of the left anterior descending artery (LAD). The mid segment of the LAD had a single discrete 65% stenosis. There was a 90% hazy single discrete stenosis of the ostial segment of the first diagonal branch (Diagonal 1) of the LAD. The Diagonal 1 was large. Left Circumflex There was mild diffuse disease of the entire vessel segment of the left circumflex artery (LCX). There was a 65% hazy long segmental stenosis of the proximal segment of the first obtuse marginal branch(OM1) of the LCX. Right Coronary Artery There was mild diffuse disease of the entire vessel segment of the right coronary artery (RCA). The mid segment of the RCA had a long segmental 65% stenosis. Conclusions: * Three vessel coronary artery disease (LAD, LCX and RCA) * Mildly decreased left ventricular ejection fraction (EF-50%) * Severe lower extremity PVD with high grade external iliac artery and common femoral artery disease. * Patent subclavian arteries and JOSE's bilaterally. ASSESSMENT: Bertin Berry is a 55 y.o. male with past medicla history significant for ASCVD (hospitalized for NSTEMI in 2006 cath showed nonobstructive CAD), COPD, depression, DM, HTN, HLD, active smoking and medication noncompliance (has not taken any medications in the last 8 months) who presented to [facility] ED with complaints of chest pain, found to have NSTEMI. He was loaded with ASA and plavix at the OSH and placed on a heparin gtt. He underwent cardiac catheterization which revealed three vessel coronary artery disease. Will consult cardiac surgery for evaluation for CABG. In the meantime, continue medical therapies with ASA and heparin gtt. No further plavix dosing. Will initiate atorvastatin and metoprolol dosing tonight as well. He is hypertensive and still having some residual chest tightness and will initiate nitro gtt for BP and symptom control and titrate to resolution of symptoms. Of note, patient stopped taking his medications about 8 months ago due to financial problems. Will need to consider this going forward with his medication regimen that he will now need. Also has activesmoking but motivated to quit. Will place nicotine patch and offer smoking cessation options for patient. PLAN: Admit to Cardiology, S2 Team Pager #[phone] NSTEMI, found to have 3VD - surgical evaluation in the AM - continue ASA dosing and heparin gtt - no further plavix dosing - initiate atorvastatin dosing and metoprolol - formal TTE in the AM - chest pain protocol - check hba1c and fasting lipid panel - nitro gtt for BP and symptom control - trend cardiac enzymes DM - suspect uncontrolled in the setting of noncompliance - check hemoglobin a1c - sugar was markedly elevated on presentation but negative BHOB, initiate SSI for now - will place DM consult for assistance with patient education Active smoking - nicotine patch - patient motivated to quit, offer smoking cessation Other - DVT prophylaxis: on heparin gtt - GI prophylaxis: none indicated - Home medications: none - Diet: advance as tolerated - Code Status: FULL CODE - Dispo: admit to [facility], S2 team, pager [phone] HEAVENLY PEREZ, DO PGY3 Internal medicine Cardiology Attending Note I interviewed and examined the patient during comprehensive bedside rounds. I concur with the summary of interval events, active hospital-focused problem list and plan of care. I personally reviewed the medications, laboratory results, treatment decisions and updated the patient. Active Hospital Problems Diagnosis ??? Non ST elevation IL due to severe 3vD-- awaiting for CABG Tuesday ??? Peripheral artery disease--- severe. ??? Hypertension ??? Financial difficulties--- barrier to medication use ??? Diabetes mellitus, type 2 ??? Tobacco abuse Resolved Hospital Problems Diagnosis Date Resolved No resolved problems to display. Comment Little to add to excellent note above. Darrius Cotter MD This patient meets or has met medical criteria to require an inpatient level of care, i.e. a minimumof two midnights in the hospital with multiple complex problems. Darrius Cotter MD - 07/08/2016 7:00 PM EDT Cardiology Admission History and Physical Patient Name: Bertin Berry Service: S2 Team Responsible Attending: Dr. Cyndee MD PCP: Zay Montilla MD PCP phone #: [phone] ID/Chief Complaint: Chest pain History of Present Illness: Bertin Berry is a 55 y.o. male with past medicla history significant for ASCVD (hospitalized for NSTEMI in 2006 cath showed nonobstructive CAD), COPD, depression, DM, HTN, HLD, active smoking and medication noncompliance (has not taken any medications in the last 8 months) who presented to [facility] ED with complaints of chest pain. Patient states that earlier today, around 10 AM, when he started shoveling his driveway and started to experience pain and pressurein the center of his chest that radiated down both arms. He experienced this same pain on Tuesday when he was shoveling snow. It went away on Tuesday when he stopped shoveling. He did have some associated nausea and vomited once. Today however it did not stop, and persisted for 4 hours. He had associated nausea, diaphoresis and shortness of breath. He called the ambulance and was given 324 aspirin inroute and 2 SL nitro tablets. He stated his pain got better with the SL nitro, although it did persist. At [facility] he was given plavix 300 mg at the OSH and put on a heparin gtt. He was also given metoprolol 5 mg IV x 1 and morphine. He states he still has some residual chest discomfort, although he feels markedly improved from whenhe initially presented. He has been in his normal state of health lately without any recent fevers, chills, viral illnesses. He has chronic episodes of diverticulitis that he doesn't seek treatment for. He has had to have surgery in the past for his diverticulitis. Patient has not taken any medications for the last 8 months, states this is due to his finances. He is currently unemployed and was fired from his job. OSH vitals HR 95, BP 158/107, 100% on RA OSH labs prior to transfer: CBC: WBC 10.5 Hbg 15.7 Platelet 199 CMP: Glucose 564 Creatinine 1.07 BUN 11 Sodium 130 Potassium 4.3 Chloride 92 Cardiac enzymes: Troponin I 35.93 proBNP 62 Other labs: INR 1.1 Review of Systems: GENERAL HEENT CV PULM x All negative x All negative All negative x All negative Weight loss Headache x Chest Pain Non-productive cough Weight gain Vision change Palpitations Productive cough Fevers Sinus congestion Orthopnea Wheezing Chills Hoarseness LE edema Hemoptysis Night sweats Epistaxis PND Pleuritic pain Fatigue Syncope SOB Claudication CARRILLO MSK RENAL ENDO GI x All negative x All negative x All negative All negative Arthralgias Frequency Heat intolerance Blood in stool Myalgias Urgency Cold intolerance Dysphagia Weakness Hematuria Polydipsia Odynophagia Stiffness Flank pain Polyphagia Abdominal discomfort Dysuria Cushingoid Constipation Foamy urine x Diarrhea Discharge Nausea/Vomiting LYMPH SKIN NEURO PSYCH x All negative x All negative x All negative x All negative Swollen nodes Rash Seizures Depressed affect Tender nodes Ulcers Tremors Occupational stress Diffuse nodes Bruising Spasticity Anxiety Local nodes Tanned skin Focal weakness Insomnia Night sweats Telangiectasias Diplopia Paresthesias Dizziness Problem List/Past Medical History Patient Active Problem List Diagnosis ??? NSTEMI (non-ST elevated myocardial infarction) ??? DM2 (diabetes mellitus, type 2) ??? Tobacco abuse ??? Hyperlipidemia ??? OA (osteoarthritis) Meds: Has not taken any medications in the past 8 months Allergies: No Known Allergies Family History: Father had an IL in his 50s Denies any other family history of heart problems Social History: Tobacco: active smoking 1 pack per day, has a long smoking history, about 50 pack years EtOH: daily use, drinks 2-3 beers, has never had any issues with withdrawal Illicits: occassional marijuana use Vocation: currently unemployed Vitals: Last value Range last 24 hrs Temperature Temp: 37 ??C (98.6 ??F) Temp: [36.9 ??C (98.4 ??F)-37 ??C (98.6 ??F)] Heart Rate Heart Rate: 78 Heart Rate: [78-99] Blood Pressure BP: 141/79 BP: (121-173)/(74-98) Respiratory Rate Resp: 22 Resp: [10-22] SpO2 SpO2: 95 % SpO2: [88 %-98 %] Examination: General: Pleasant, alert, appropriate, in NAD lying comfortably in bed HEENT: EOMI, PERRL, anicteric sclera. Oropharynx clear w/o lesions. Moist mucous membranes Cardiac: Normal S1 and S2, Regular rate and rhythm; No murmrs/gallops/rubs appreciated Respiratory: Nonlabored. Clear to auscultation bilaterally anteriorly Abd: + BS; soft, slightly tender to palpation diffusely Ext: WWP without le edema, cyanosis or clubbing. DPP 2+ bilaterally. Sheath in L groin Neuro: II-XII grossly intact. Alert and orientated, no-focal deficits, sensation intact to crude touch Laboratory: CBC: Recent Labs 07/08/16 174 WBC 14.0* HGB 15.1 PLATELET 217 Chemistry: Recent Labs 07/08/161739 NA 133* K 4.6 CL 91* CO2 21* BUN 10 CREATININE 0.77* GLUCOSE 419* Recent Labs 07/08/161739 CALCIUM 9.8 LFT's: Recent Labs 07/08/161739 BILITOT 0.3 BILIDIR 0.1 ALBUMIN 4.4 ALKPHOS 112 ALT 41 AST 247* Coags: Recent Labs 07/08/16 174 PT 12.9 INR 0.9 PTT 36* Cardiac enzymes: Recent Labs 07/08/161739 TROPONINT 7.41* CK 3402* Endocrine: Recent Labs 07/08/161739 TSH 5.02* Heme: No results for input(s): LDH, HAPTOGLOBIN, URICACID in the last 168 hours. Microbiology: None Diagnostic Studies: EKG 07/08/2016 15:28 at OSH NSR HR 89, some KEYONNA in inferior leads, Q waves in V1-V2 with some ST elevation V2, TWI avL, T wave flattening V6 Cardiac catheterization 07/08/2016 Coronary Angiography: Dominance: Right Left Main There was mild diffuse disease of the entire vessel segment of the left main artery. Left Anterior Descending There was mild diffuse disease of the entire vessel segment of the left anterior descending artery (LAD). The mid segment of the LAD had a single discrete 65% stenosis. There was a 90% hazy single discrete stenosis of the ostial segment of the first diagonal branch (Diagonal 1) of the LAD. The Diagonal 1 was large. Left Circumflex There was mild diffuse disease of the entire vessel segment of the left circumflex artery (LCX). There was a 65% hazy long segmental stenosis of the proximal segment of the first obtuse marginal branch(OM1) of the LCX. Right Coronary Artery There was mild diffuse disease of the entire vessel segment of the right coronary artery (RCA). The mid segment of the RCA had a long segmental 65% stenosis. Conclusions: * Three vessel coronary artery disease (LAD, LCX and RCA) * Mildly decreased left ventricular ejection fraction (EF-50%) * Severe lower extremity PVD with high grade external iliac artery and common femoral artery disease. * Patent subclavian arteries and JOSE's bilaterally. ASSESSMENT: Bertin Berry is a 55 y.o. male with past medicla history significant for ASCVD (hospitalized for NSTEMI in 2006 cath showed nonobstructive CAD), COPD, depression, DM, HTN, HLD, active smoking and medication noncompliance (has not taken any medications in the last 8 months) who presented to [facility] ED with complaints of chest pain, found to have NSTEMI. He was loaded with ASA and plavix at the OSH and placed on a heparin gtt. He underwent cardiac catheterization which revealed three vessel coronary artery disease. Will consult cardiac surgery for evaluation for CABG. In the meantime, continue medical therapies with ASA and heparin gtt. No further plavix dosing. Will initiate atorvastatin and metoprolol dosing tonight as well. He is hypertensive and still having some residual chest tightness and will initiate nitro gtt for BP and symptom control and titrate to resolution of symptoms. Of note, patient stopped taking his medications about 8 months ago due to financial problems. Will need to consider this going forward with his medication regimen that he will now need. Also has activesmoking but motivated to quit. Will place nicotine patch and offer smoking cessation options for patient. PLAN: Admit to Cardiology, S2 Team Pager #[phone] NSTEMI, found to have 3VD - surgical evaluation in the AM - continue ASA dosing and heparin gtt - no further plavix dosing - initiate atorvastatin dosing and metoprolol - formal TTE in the AM - chest pain protocol - check hba1c and fasting lipid panel - nitro gtt for BP and symptom control - trend cardiac enzymes DM - suspect uncontrolled in the setting of noncompliance - check hemoglobin a1c - sugar was markedly elevated on presentation but negative BHOB, initiate SSI for now - will place DM consult for assistance with patient education Active smoking - nicotine patch - patient motivated to quit, offer smoking cessation Other - DVT prophylaxis: on heparin gtt - GI prophylaxis: none indicated - Home medications: none - Diet: advance as tolerated - Code Status: FULL CODE - Dispo: admit to [facility], S2 team, pager [phone] HEAVENLY Rueda SAURABH, DO PGY3 Internal medicine Cardiology Attending Note I interviewed and examined the patient during comprehensive bedside rounds. I concur with the summary of interval events, active hospital-focused problem list and plan of care. I personally reviewed the medications, laboratory results, treatment decisions and updated the patient. Active Hospital Problems Diagnosis ??? Non ST elevation IL due to severe 3vD-- awaiting for CABG Tuesday ??? Peripheral artery disease--- severe. ??? Hypertension ??? Financial difficulties--- barrier to medication use ??? Diabetes mellitus, type 2 ??? Tobacco abuse Resolved Hospital Problems Diagnosis Date Resolved No resolved problems to display. Comment Little to add to excellent note above. Darrius Cotter MD This patient meets or has met medical criteria to require an inpatient level of care, i.e. a minimumof two midnights in the hospital with multiple complex problems. documented in this encounter Nursing Notes Grace Gonzalez, RN - 07/12/2016 2:49 PM EDT External zoll pads applied to patient after transferring to OR bed. 1g Vancomycin mixed with normal saline and surgiflo to form paste. Paste applied to sternum prior toclosure. 20ml of Nitroglycerin (200mcg/ml) mixed with 20ml of NS used in 1ml increments in cardioplegia line. 5mg of Verapamil in 60ml NS used to flush JOSE at time of takedown. Patient's family updated throughout procedure. documented in this encounter ED Notes Gabrielle Buckley RN - 07/08/2016 6:33 PM EDT Transferred pt to the [facility] with provider Gabrielle Buckley RN - 07/08/2016 6:02 PM EDT Pt transfer, had st elevation in II, III, AVF 1mm elevation prior to arrival pt given 300mg plavix, 4,000units of heparin, 10mg of lopressor, 3 nitro, 6mg morphine, 324 aspirin, hep gtt running at 950units. Pt was shoveling snow when onset of chest pain started at 1200 pt had an episode of vomiting then pain radiating down both arms. Pt last meal was yesterday, last drink around 1200. Pt a/ox4. Warm/pink/dry. Pt is pain free now. No sob/headaache/dizziness. Pt on metallurgical inspector with cycling bp's q15mns, cont pulse ox. Iv x2 THIOKOL OPERATOR. No n/v/d. Afebrile. No cough/cold. +cmsx4. +[id number]. <3sec refillx4. =aromx4. ls clear. abd soft n-tender. Gabrielle Buckley RN - 07/08/2016 5:45 PM EDT Cards at bedside Sangita Ford - 07/08/2016 5:38 PM EDT Emergency Department Bertin Berry is a 55 y.o. male who presents to [facility] transfer from [facility] with chest pain that came on this morning while shoveling snow. EKG at outside hospital showed STelevations of 1mm in II, III, AVF without reciprocal changes. Reviewed by our hooker inspector, felt notto meet acute STEMI criteria, but patient transferred urgently for reassessment in our ED by cardiology team, decision to be made on whether or not to cath emergently from there. No lytics given as OSH Contract Consultant at bedside on arrival. Plan to begin heparin drip, repeat labs sent, repeat EKG performed. History of Present Illness / Review of Systems The patient is resting comfortably in the bed. Physical Exam: I reviewed the patient???s vitals as recorded in the electronic medical record and ED nursing notes.The patient was non-toxic appearing and in no obvious distress. Assessment/Plan: This 55 y.o. male was transferred from an outside hospital emergency department to receive specialtycare provided by the cardiology service for ongoing care and evaluation. I discussed the case with resident/fellow of the accepting service. The patient was deemed to be stable and not requiring significant involvement from the attending emergency physician at this time. The accepting service has assumed further care of the patient. Please see their notes for any further clinical details. SANGITA FORD MD 07/08/2016 Sangita Ford MD Resident 07/08/16 1756 Associated attestation - Sangita Robles MD - 07/12/2016 7:31 AM EDT ED ATTENDING ATTESTATION NOTE The patient was seen in conjunction with Dr. Ford, the resident physician. I have independently performed the aden portions of the history and physical exam. I have reviewed the nursing notes, vitalsigns, and all diagnostic studies personally including labs, imaging studies and EKGs. I have discussed the details of the case with the resident and agree with the assessment and plan as described in the resident note above unless noted otherwise below. Brief Summary: 55 y/o male presents with concern of nstemi with ongoing pain from osh. He was initiated on heparin and plavix area captain. Cardiology was at bedside shortly after arrival and performing bedsideecho. Based on exam, echo etc it was felt by cardiology to take pt to the [facility] for intervention Final Assessment: nstemi documented in this encounter Miscellaneous Notes Consult Note - Ember Do RN - 07/16/2016 10:30 AM EDT [facility] Bertin Berry was seen today regarding participation in the outpatient Phase 2 Cardiac Rehabilitation at [facility] . The patient agrees to a referral to this program. The referral will be sent at discharge and the patient should be contacted by the Program within 1- 2 weeks from discharge. Plan of Care - Slim Lockhart, PT - 07/16/2016 9:55 AM EDT Problem: Patient Care Overview Goal: Plan of Care Review Outcome: Outcome (s) achieved Date Met: 07/18/16 07/18/16 0958 Coping/Psychosocial Plan Of Care Reviewed With patient Physical Therapy Note Treatment Number: 3 Pertinent History of Current Problem: 55-year-old gentleman with poorly controlled diabetes, hypertension, tobacco abuse, and three-ve ssel disease found on recent coronary angiography. He underwent CABG on 07/12. Referred to PT per pathway. Assessment: Pt seen for mobility, stairs. He has met all inpt PT goals and is independent with all mobility without a device. He is excited to go home today and feels ready. Please see the Rehab Evaluation Summaries section for detailed objective data and specifics of today???s session. Precautions/Restrictions: fall, sternal Staff Mobility Recommendations: supervision Anticipated Discharge Disposition: (home today. no PT needs) SLIM LOCKHART, PT Pager: [phone] Inpatient Physical Therapy Plan of Care - Sarah Tolentino RN - 07/16/2016 7:27 AM EDT Problem: Patient Care Overview Goal: Plan of Care Review Outcome: Ongoing (Interventions Implemented as Appropriate) 07/15/16 1254 07/15/16 1732 Coping/Psychosocial Plan Of Care Reviewed With -- patient Plan of Care Review Progress progress towards functional goals is fair -- OUTCOME EVALUATION NOTE: OUTCOME SUMMARY: Pt rested well throughout the night, complained of 2/10 incision soreness and received PRn Oxycodone. VSS, blood glucose controlled with Humalog. Pt up to walk unit and complete a flight of stairs in preparation for early discharge. Safety maintained. PLAN MOVING FORWARD: Discharge home. INDIVIDUALIZED FALL PREVENTION INTERVENTIONS: Patient-specific fall risk factors per assessment: [current deficits]: Generalized weakness. Assistance [level of assistance required for transfers and ambulation]: SBA Supervision [direct monitoring required during toileting and ADLs]: SBA Surveillance [continuous indirect monitoring]: Telemetry, pulse oximetry, purposeful rounding. Patient-specific fall prevention interventions for sensory deficits provided, if applicable: Yes. CPG GOAL OUTCOME EVALUATION: Ongoing. Plan of Care - Mary Fox RN - 07/15/2016 12:57 PM EDT Problem: Patient Care Overview Goal: Plan of Care Review Outcome: Ongoing (Interventions Implemented as Appropriate) 07/15/16 1254 Coping/Psychosocial Plan Of Care Reviewed With patient;spouse Plan of Care Review Progress progress towards functional goals is fair OUTCOME EVALUATION NOTE: OUTCOME SUMMARY: Mukesh had a good day. He was weaned off of supplemental O2 and maintained oxygen saturation in mid 90s on RA. He worked with PT and walked around unit with nurses. He had a BM. Pacing wires were removed and Mukesh showered. He was able to get information together from unemployment for insurance purposes which was a great stress relief for him. NSR/ST on tele, HR 84-112. PLAN MOVING FORWARD: He is eager to go home tomorrow, possible discharge 07/16. INDIVIDUALIZED FALL PREVENTION INTERVENTIONS: Patient-specific fall risk factors per assessment: [current deficits]: CSCU bedside monitor cords. Assistance [level of assistance required for transfers and ambulation]: SBA Supervision [direct monitoring required during toileting and ADLs]: Eyes on. Surveillance [continuous indirect monitoring]: Telemetry, door open, room near RN station, call bellin reach. CPG GOAL OUTCOME EVALUATION: Goal: Fall Prevention-Safe Patient Handling Outcome: Ongoing (Interventions Implemented as Appropriate) 07/13/16 0428 07/14/16 0600 07/15/16 0740 Restraint Interventions Safety Promotion/Fall Prevention -- -- activity supervised;fall prevention program maintained;nonskid shoes/slippers when out of bed;safety round/check completed Musculoskeletal Interventions Muscle Strengthening activity/mobility promoted;mobility in bed promoted -- -- Activity and Safety Assistive Device Oxygen -- -- Daily Care Interventions Self-Care Promotion -- independence encouraged -- Oneal Fall Risk History of Falling -- -- 0 Secondary Diagnosis -- -- 15 Ambulatory Aids -- -- 0 Intravenous Therapy/Heparin/Saline Lock -- -- 20 Gait/Transferring -- -- 0 Mental Status -- -- 0 Score -- -- 35 OTHER Oneal Fall Risk -- -- Med Positioning Body Position -- -- up in chair Goal: Infection Control Outcome: Ongoing (Interventions Implemented as Appropriate) 07/15/16 0740 Coping Strategies Supportive Measures active listening utilized;verbalization of feelings encouraged;positive reinforcement provided Safety Interventions Isolation Precautions standard precautions maintained Infection Prevention rest/sleep promoted;environmental surveillance performed Goal: Discharge Needs Assessment Outcome: Ongoing (Interventions Implemented as Appropriate) 07/15/16 1254 Discharge Needs Assessment Concerns To Be Addressed denies needs/concerns at this time Readmission Within The Last 30 Days no previous admission in last 30 days Discharge Disposition still a patient Living Environment Transportation Available family or friend will provide Problem: Cardiac Surgery (Adult) Goal: Signs and Symptoms of Listed Potential Problems Will be Absent, Minimized or Managed (Cardiac Surgery) Signs and symptoms of listed potential problems will be absent, minimized or managed by discharge/transition of care (reference Cardiac Surgery (Adult) CPG). Outcome: Ongoing (Interventions Implemented as Appropriate) 07/15/16 1254 Cardiac Surgery Problems Assessed (Cardiac Surgery) all Problems Present (Cardiac Surgery) fluid imbalance;situational response Plan of Care - Slim Lockhart, PT - 07/15/2016 9:37 AM EDT Problem: Patient Care Overview Goal: Plan of Care Review Outcome: Ongoing (Interventions Implemented as Appropriate) 07/15/162053 Coping/Psychosocial Plan Of Care Reviewed With patient Physical Therapy Note Treatment Number: 2 Pertinent History of Current Problem: 55-year-old gentleman with poorly controlled diabetes, hypertension, tobacco abuse, and three-ve ssel disease found on recent coronary angiography. He underwent CABG on 07/12. Referred to PT per pathway. Assessment: Pt seen for continued gait, mobility, ex's. Pt demonstrated improved independence with sit to stand.Needed instruction for bed mobility. Walking without a device on room air with good balance. Will need to perform stairs and bed mobility tomorrow. Please see the Rehab Evaluation Summaries section for detailed objective data and specifics of today???s session. Precautions/Restrictions: fall, sternal Staff Mobility Recommendations: Supervision Therapy Frequency: (one more session for stairs and bed mobility) Anticipated Discharge Disposition: (home with VNA and family assist) SLIM LOCKHART, PT Pager: [phone] Inpatient Physical Therapy Problem: Acute Rehab Services Goal & Intervention Plan Goal: Bed Mobility Goal Stand Alone Therapy Goal Outcome: Ongoing (Interventions Implemented as Appropriate) 07/13/16 1207 Bed Mobility Goal Bed Mobility Goal, Date Established 07/13/16 Bed Mobility Goal, Time to Achieve 1 wk Bed Mobility Goal, Activity Type all bed mobility activities Bed Mobility Goal, [place] Level independent Goal: Gait Training Goal Stand Alone Therapy Goal Outcome: Ongoing (Interventions Implemented as Appropriate) 07/13/16 1207 Gait Training Goal Gait Training Goal, Date Established 07/13/16 Gait Training Goal, Time to Achieve 1 wk Gait Training Goal, [place] Level independent Gait Training Goal, Distance to Achieve 150 Gait Training Goal, Additional Goal pt will go up and down 4 steps with rail independently Plan of Care - Hannah Gomez RN - 07/14/2016 7:09 AM EDT Problem: Patient Care Overview Goal: Fall Prevention-Safe Patient Handling OUTCOME EVALUATION NOTE: OUTCOME SUMMARY: At change of shift, pt had desats to 85% on NC, requiring venti mask 50%, and eventually bipap. Pt tolerated bipap at beginning of shift for a short time then became very anxious. 0.5mg IV ativan did not help so high-flow 100% was started, which he was on for most of the night. Pt wasswitched back to bipap nasal cup this morning at 0530 and has been tolerating it well. O2 sats are 94-95% on 100% FiO2. Team was concerned about possible PE, given consistent tachycardia even after doses of metoprolol. Pt is HD stable, laying in bed. PLAN MOVING FORWARD: Wean bipap as tolerated. CT chest possible to r/o PE. INDIVIDUALIZED FALL PREVENTION INTERVENTIONS: Patient-specific fall risk factors per assessment: [current deficits]: Assistance [level of assistance required for transfers and ambulation]: 2A Supervision [direct monitoring required during toileting and ADLs]: Intermittent. Pt uses call le appropriately Surveillance [continuous indirect monitoring]: Ongoing Patient-specific fall prevention interventions for sensory deficits provided, if applicable: n/a CPG GOAL OUTCOME EVALUATION: Plan of Care - Slim Lockhart PT - 07/13/2016 12:10 PM EDT Problem: Patient Care Overview Goal: Plan of Care Review Outcome: Ongoing (Interventions Implemented as Appropriate) 07/13/16 1207 Coping/Psychosocial Plan Of Care Reviewed With patient Physical Therapy Note Pertinent History of Current Problem: 55-year-old gentleman with poorly controlled diabetes, hypertension, tobacco abuse, and three-ve ssel disease found on recent coronary angiography. He underwent CABG on 07/12. Referred to PT per pathway. Assessment: Pt seen for evaluation and gait in CV. Pt is quite anxious, but tolerated walking with min assist 150' on 5L O2 nc He has good strength and should progress well with practice. He plans to go home at d/c with family assist and VNA. Please see the Rehab Evaluation Summaries section for detailed objective data and specifics of today???s session. Precautions/Restrictions: fall, sternal Staff Mobility Recommendations: Assist of 1 and fww Therapy Frequency: 3-5 times/wk Anticipated Discharge Disposition: (home with VNA and family assist) SLIM LOCKHART, PT Pager: [phone] Inpatient Physical Therapy Problem: Acute Rehab Services Goal & Intervention Plan Goal: Bed Mobility Goal Stand Alone Therapy Goal Outcome: Ongoing (Interventions Implemented as Appropriate) 07/13/16 1207 Bed Mobility Goal Bed Mobility Goal, Date Established 07/13/16 Bed Mobility Goal, Time to Achieve 1 wk Bed Mobility Goal, Activity Type all bed mobility activities Bed Mobility Goal, [place] Level independent Goal: Gait Training Goal Stand Alone Therapy Goal Outcome: Ongoing (Interventions Implemented as Appropriate) 07/13/16 1207 Gait Training Goal Gait Training Goal, Date Established 07/13/16 Gait Training Goal, Time to Achieve 1 wk Gait Training Goal, [place] Level independent Gait Training Goal, Distance to Achieve 150 Gait Training Goal, Additional Goal pt will go up and down 4 steps with rail independently Goal: Goal Transfer Training Stand Alone Therapy Goal Outcome: Ongoing (Interventions Implemented as Appropriate) 07/13/16 1207 Goal Transfer Training Transfer Training Goal, Date Established 07/13/16 Transfer Training Goal, Time to Achieve 1 wk Transfer Training Goal, Activity Type [id number] Transfer Train Goal, [place] Level independent Plan of Care - Myrna Carrington RN - 07/13/2016 4:38 AM EDT Problem: Patient Care Overview Goal: Plan of Care Review Outcome: Ongoing (Interventions Implemented as Appropriate) 07/13/16427 Coping/Psychosocial Plan Of Care Reviewed With patient Plan of Care Review Progress improving OUTCOME EVALUATION NOTE: OUTCOME SUMMARY: Progressing as expected. Issues overnight were pain control, tachycardia and hypertension, anxiety. PLAN MOVING FORWARD: Advance diet, activity as tolerated. Provide education and reassurance as needed. INDIVIDUALIZED FALL PREVENTION INTERVENTIONS: Patient-specific fall risk factors per assessment: [current deficits]: Post-op cardiac surgery,pain,unfamiliar environment. Assistance [level of assistance required for transfers and ambulation]: Assist x 2 for dangling at bedside and standing. Supervision [direct monitoring required during toileting and ADLs]: Full supervision, moving toward intermittent. Surveillance [continuous indirect monitoring]: Purposeful hourly rounding and prn. Patient-specific fall prevention interventions for sensory deficits provided, if applicable: [X] N/A CPG GOAL OUTCOME EVALUATION: Goal: Individualization & Mutuality Outcome: Ongoing (Interventions Implemented as Appropriate) 07/13/16427 Mutuality/Individual Preferences What Questions Do You Have About Your Health or Care? How long will I be here? What Information Would Help Us Give You More Personalized Care? I've been diagnosed with anxiety anddepression. Goal: Fall Prevention-Safe Patient Handling Outcome: Ongoing (Interventions Implemented as Appropriate) 07/12/16 1956 07/13/1639907/13/16427 Restraint Interventions Safety Promotion/Fall Prevention -- fall prevention program maintained;safety round/check completed -- Musculoskeletal Interventions Muscle Strengthening -- -- activity/mobility promoted;mobility in bed promoted Activity and Safety Assistive Device -- -- Oxygen Daily Care Interventions Self-Care Promotion -- -- independence encouraged Oneal Fall Risk History of Falling 0 -- -- Secondary Diagnosis 15 -- -- Ambulatory Aids 0 -- -- Intravenous Therapy/Heparin/Saline Lock 20 -- -- Gait/Transferring 0 -- -- Mental Status 0 -- -- Score 35 -- -- OTHER Oneal Fall Risk Med -- -- Goal: Infection Control Outcome: Ongoing (Interventions Implemented as Appropriate) 07/13/1639907/13/16427 Coping Strategies Supportive Measures -- active listening utilized;goal setting facilitated;relaxation techniques promoted;self-care encouraged;verbalization of feelings encouraged Safety Interventions Isolation Precautions standard precautions maintained -- Infection Prevention environmental surveillance performed;personal protective equipment utilized;rest/sleep promoted -- Problem: Skin Integrity Impairment, Risk/Actual (Adult) Goal: Identify Related Risk Factors and Signs and Symptoms Related risk factors and signs and symptoms are identified upon initiation of Human Response Clinical Practice Guideline (CPG) Outcome: Ongoing (Interventions Implemented as Appropriate) 07/13/16427 Skin Integrity Impairment, Risk/Actual Skin Integrity Impairment, Risk/Actual: Related Risk Factors edema;immobility;surgery/procedure Goal: Skin Integrity/Wound Healing Patient will demonstrate the desired outcomes by discharge/transition of care. Outcome: Ongoing (Interventions Implemented as Appropriate) 07/13/16427 Skin Integrity Impairment, Risk/Actual (Adult) Skin Integrity/Wound Healing making progress toward outcome Problem: Cardiac Surgery (Adult) Goal: Signs and Symptoms of Listed Potential Problems Will be Absent, Minimized or Managed (Cardiac Surgery) Signs and symptoms of listed potential problems will be absent, minimized or managed by discharge/transition of care (reference Cardiac Surgery (Adult) CPG). Outcome: Ongoing (Interventions Implemented as Appropriate) 07/13/16427 Cardiac Surgery Problems Assessed (Cardiac Surgery) all Problems Present (Cardiac Surgery) pain OR Attestation - Valentino Pérez MD - 07/12/2016 4:50 PM EDT Attestation: Case Date: 07/12/2016 I was present and I participated during the entire procedure (does not need to include opening and closing). VALENTINO PÉREZ MD 07/12/2016 Brief Op Note - Valentino Pérez MD - 07/12/2016 4:49 PM EDT Brief Operative Note Patient Name: Bertin Berry : [id number] MR#: [id number] Case Date: 07/12/2016 Surgeon: Surgeon(s) and Role: * Valentino Pérez MD - Primary * Huber Womack PA - Physician [employer] * Yoav Mendoza PA - Physician [employer] * Rosa Maria Rojas MD - Resident-Surgeon Chief Preoperative diagnosis: cad Postoperative diagnosis: CAD Procedure(s) (LRB): @CABG, USING 2 CORONARY ARTERIAL GRAFTS (WRVU 39.88) (N/A) ENDOSCOPIC HARVEST VEIN(S) FOR CABG (WRVU 0.31) (Right) @CABG, TWO VENOUS GRAFTS & ARTERIAL GRAFT (WRVU 7.93) (N/A) Anesthesia: General Findings: good targets, good conduit, nl function Complications: none Estimated Blood Loss: * No values recorded between 07/12/2016 1:01 PM and 07/12/2016 4:27 PM * Fluids: Intraprocedure Crystalloid Total None PRBCs: none (See Anesthesia Record/Report for Other Blood Products) Urine Output: 675 mL Drains: 2 med tubes Disposition: taken directly to the ICU, intubated and in a critical condition. Condition: doing well without problems (Please see the Surgical Encounter Summary for any Implant and Specimen details pertinent to this patient.) Infection Bundle used? No Op Note - Valentino Pérez MD - 07/12/2016 12:40 PM EDT 07/14/2016 Bertin Berry [id number] Preoperative Diagnosis: Coronary artery disease Non-STEMI Postoperative Diagnosis: Coronary artery diseaseNon-STEMI Procedure: CABG times 4: FOSS to LAD, SVG to om, svg to diag, LEAH to rca. Endoscopic vein harvest Surgeon: Valentino Pérez M.D. [employer] Laborer: Bob BAKER, Arnol VALENTIN Anesthesia: General endotracheal anesthesia Drains: Two mediastinal tubes Pacing Wires: Two A-wires, two V-wires. EBL: Minimal mL Findings: good targets with disease, excellent conduit, severe emphsema of his lungs, nl function Procedure: The patient was taken to the Operating Room and had a radial A-line placed. All the proper lines and monitors were placed by Anesthesia. The patient was then prepped and draped in the normalsterile fashion. The right leg was used to harvest the greater saphenous vein using an endoscopic technique. A vertical incision was made on the medial aspect of the knee. The Syntricity XB7 system was used to dissect out the vein anterior and posteriorly. All the side branches were cauterized. The vein was ligated distally and proximally. It was removed through the incision at the knee. The vein was flushed with heparinized saline in a reverse direction. All the side branches were clipped. The vein was untwisted and striped with a sterile pen. The leg had a VETO drain placed in it. It was irrigated out with antibiotic solution and closed immediately. The chest was opened along the midline. Cautery was used on the sternal edges and bone wax was lightly applied to the divided marrow of the sternum. The left ranjit-sternum was elevated. The pleura were taken down, and the mammary artery was dissected free clipping all side branches. Heparin was given. Several minutes later the distal end of the mammary was clipped and tied on the chest wall, and the bleeding end had a bulldog placed across it. It was prepared for bypass by spatulating it open, injecting it with verapamil, and rolling it up into a nitroglycerin-soaked sponge. The JOSE had excellent flow. The Rultract was removed. The right ranjit-sternum was elevated. The pleura were taken down, and the mammary artery was dissected free clipping all side branches. Heparin was given. Several minutes later the distal end of the mammary was clipped and tied on the chest wall, and the bleeding end had a bulldog placed across it. It was prepared for bypass by spatulating it open, injecting it with verapamil, and rolling it up into a nitroglycerin-soaked sponge. The JOSE had excellent flow. The Rultract was removed, again. Two antibiotic-soaked towels were used to bumper the sternum. The sternal retractor was used to openthe sternum. The overlying pericardium was opened in an inverse-T fashion and hung to the edge of the sternal retractor. Full-dose heparin was given. The aorta was cannulated. The right atrium had the venous cannula placed through the IVC. A retrograde was placed through the right atrium into the coronary sinus. The antegrade was place mid ascending aorta which also doubled as the root vent. With theACT above 450, we went on bypass. The targets were inspected. The aorta was crossclamped and the heart was arrested with cold blood cardioplegia antegrade and retrograde. We drifted to 32 degrees Celsius. The bypasses were as follows: The om target was identified and opened and in an end to side fashion the SVG was anastomosed with arunning 7.0 prolene. Cardiopelegia was given down the graft and there were no leaks. The heart was filled and the graft was measured for length and trimmed. A punch was made in the aorta and a proximalanastomosis was created with a 6-0. A washer was used to identify the proximal. The same procedures was completed for diag and cardioplegia was given between all bypasses. The jose was taken out of the left chest and a slit was created in the L side of the pericardium making sure to identify the L phrenic nerve. The jose was anastomosed to the LAD with a running 8-0 prolene. The bulldog was removed to test the graft then replaced. The jose was taken out of the right chest and a slit was created in the r side of the pericardium making sure to identify the r phrenic nerve. The jose was anastomosed to the rca with a running 8-0 prolene. The bulldog was removed to test the graft then replaced. At this point, hotshots were given. The heart began beating in a sinus rhythm. The crossclamp was removed. The grafts were inspected. The heart was allowed to re-perfuse. The retrograde was removed andoversewn; so was the antegrade. An angled chest tube was placed behind the heart. Both chests were suctioned out, and the lungs were re-inflated. After a period of rewarming and allowing the heart to re-perfuse, we from bypass. The venous cannula was removed and the pursestring was tied downand oversewn. Protamine was given. The aortic cannula was removed. Both pursestrings were tied down and oversewn. We had no further bleeding. A straight chest tube was placed in front of the heart. Vanco paste was applied to the sternum. Interrupted steel cables were used to close the chest, several layers of Vicryl, and a 4-0 Monocryl were used to close the overlying soft tissue. Glue and clean dry sterile dressings were applied. The patient was transported to the CV on levo. All counts were correct. Plan of Care - Marbella Granados RN - 07/12/2016 2:59 AM EDT Problem: Patient Care Overview Goal: Plan of Care Review 07/11/16 1314 07/11/161929 Coping/Psychosocial Plan Of Care Reviewed With -- patient Plan of Care Review Progress no change -- Goal: Fall Prevention-Safe Patient Handling 07/11/16 1314 07/11/16 193 Restraint Interventions Safety Promotion/Fall Prevention -- activity supervised;fall prevention program maintained;nonskid shoes/slippers when out of bed;safety round/check completed Musculoskeletal Interventions Muscle Strengthening activity/mobility promoted;mobility in bed promoted;personal routines for BADL/IADL promoted;sitting on edge of bed encouraged;up in chair encouraged for meals and activities -- Activity and Safety Assistive Device None -- Daily Care Interventions Self-Care Promotion -- independence encouraged;BADL personal objects within reach;BADL personal routines maintained Oneal Fall Risk History of Falling -- 0 Secondary Diagnosis -- 15 Ambulatory Aids -- 0 Intravenous Therapy/Heparin/Saline Lock -- 20 Gait/Transferring -- 0 Mental Status -- 0 Score -- 35 OTHER Oneal Fall Risk -- Med Positioning Body Position -- independent Goal: Infection Control 07/11/16 1930 Safety Interventions Isolation Precautions standard precautions maintained Infection Prevention environmental surveillance performed;rest/sleep promoted Coping Strategies Supportive Measures active listening utilized;goal setting facilitated;relaxation techniques promoted;self-care encouraged;self-reflection promoted;self-responsibility promoted;verbalization of feelings encouraged Goal: Discharge Needs Assessment 07/08/16 2256 07/10/16 0553 07/10/16 1800 Discharge Needs Assessment Concerns To Be Addressed -- financial/insurance concerns;medication concerns;substance/tobacco abuse/use concerns -- Readmission Within The Last 30 Days -- no previous admission in last 30 days -- Current Discharge Risk -- lives alone;chronically ill -- Discharge Disposition -- home or self-care -- Activity/Self Care Review of Systems Equipment Currently Used at Home cane, straight -- -- Living Environment Transportation Available -- -- family or friend will provide Goal: Interdisciplinary Rounds/Family Conf 07/11/16 0334 Interdisciplinary Rounds/Family Conf Participants patient;nursing OUTCOME EVALUATION NOTE: OUTCOME SUMMARY: Pt A+O. B/P elevated at start of shift- pt was feeling anxious- see doc flow for recheck. See separate note about left groin- checks done Q2H per MD request. Tylenol given for neuropathy pain. Pt resting in bed overnight. PLAN MOVING FORWARD: 2nd case CABG, monitor left groin INDIVIDUALIZED FALL PREVENTION INTERVENTIONS: Patient-specific fall risk factors per assessment: [current deficits]: telemetry cables. Assistance [level of assistance required for transfers and ambulation]: SB Supervision [direct monitoring required during toileting and ADLs]: SB Surveillance [continuous indirect monitoring]: rounds, tele. Patient-specific fall prevention interventions for sensory deficits provided, if applicable: Low bed, call le in reach, rings appropriately, nonskid slippers when out of bed. CPG GOAL OUTCOME EVALUATION: Ongoing Problem: Skin Integrity Impairment, Risk/Actual (Adult) Goal: Identify Related Risk Factors and Signs and Symptoms Related risk factors and signs and symptoms are identified upon initiation of Human Response Clinical Practice Guideline (CPG) 07/11/16 0334 Skin Integrity Impairment, Risk/Actual Skin Integrity Impairment, Risk/Actual: Related Risk Factors surgery/procedure Goal: Skin Integrity/Wound Healing Patient will demonstrate the desired outcomes by discharge/transition of care. 07/11/16 1314 Skin Integrity Impairment, Risk/Actual (Adult) Skin Integrity/Wound Healing making progress toward outcome Problem: Cardiac Cath/Percutaneous Coronary Intervention (Adult) Goal: Signs and Symptoms of Listed Potential Problems Will be Absent, Minimized or Managed (Cardiac Cath/Percutaneous Coronary Intervention) Signs and symptoms of listed potential problems will be absent, minimized or managed by discharge/transition of care (reference Cardiac Cath/Percutaneous Coronary Intervention (Adult) CPG). 07/11/16 1930 Cardiac Cath/Percutaneous Coronary Intervention Problems Assessed (Cardiac Catheterization) all Problems Present (Cardiac Catheterization) access site complications Problem: Health Knowledge, Opportunity to Enhance (Adult,NICU,,Obstetrics,Pediatric) Goal: Knowledgeable about Health Subject/Topic Patient will demonstrate the desired outcomes by discharge/transition of care. 07/11/16 1313 Health Knowledge, Opportunity to Enhance (Adult,NICU,,Obstetrics,Pediatric) Knowledgeable about Health Subject/Topic making progress toward outcome Plan of Care - Anastacio King RN - 07/11/2016 1:19 PM EDT Problem: Patient Care Overview Goal: Plan of Care Review Outcome: Ongoing (Interventions Implemented as Appropriate) 07/11/16 0800 07/11/16 1314 Coping/Psychosocial Plan Of Care Reviewed With patient -- Plan of Care Review Progress -- no change OUTCOME EVALUATION NOTE: OUTCOME SUMMARY: Patient is alert and oriented. VSS. Patient reported ain at groin access site. Hematoma noted at site; pressure held for 20-[address] Cotter. Further testing scheduled r/t concern for aneurysm/pseudoaneursym. Patient's son, grandchildren, and [id number] in to visit today. PLAN MOVING FORWARD: Awaiting CT surgery. INDIVIDUALIZED FALL PREVENTION INTERVENTIONS: Patient-specific fall risk factors per assessment: [current deficits]: medications; awaiting CT surgery Assistance [level of assistance required for transfers and ambulation]: Independent/Standby assist Supervision [direct monitoring required during toileting and ADLs]: Intermittent; able to reliably call for assistance Surveillance [continuous indirect monitoring]: Purposeful Hourly Rounding; call le in reach; room kept free of obstacles; electrical instrument technician attached and alarms and settings reviewed q 4 hours. Patient-specific fall prevention interventions for sensory deficits provided, if applicable: CPG GOAL OUTCOME EVALUATION: ongoing Goal: Fall Prevention-Safe Patient Handling Outcome: Ongoing (Interventions Implemented as Appropriate) 07/11/16 0800 07/11/16 1314 Restraint Interventions Safety Promotion/Fall Prevention -- fall prevention program maintained;nonskid shoes/slippers when out of bed Musculoskeletal Interventions Muscle Strengthening -- activity/mobility promoted;mobility in bed promoted;personal routines for BADL/IADL promoted;sitting on edge of bed encouraged;up in chair encouraged for meals and activities Activity and Safety Assistive Device -- None Daily Care Interventions Self-Care Promotion -- independence encouraged;BADL personal objects within reach;BADL personal routines maintained Oneal Fall Risk History of Falling 0 -- Secondary Diagnosis 15 -- Ambulatory Aids 0 -- Intravenous Therapy/Heparin/Saline Lock 20 -- Gait/Transferring 0 -- Mental Status 0 -- Score 35 -- OTHER Oneal Fall Risk Med -- Positioning Body Position independent -- Goal: Infection Control Outcome: Ongoing (Interventions Implemented as Appropriate) 07/11/16 0800 Safety Interventions Isolation Precautions standard precautions maintained Infection Prevention environmental surveillance performed;rest/sleep promoted;single patient room provided Coping Strategies Supportive Measures active listening utilized;goal setting facilitated;positive reinforcement provided;problem solving facilitated;self-care encouraged;verbalization of feelings encouraged Plan of Care - Marbella Granados RN - 07/11/2016 3:49 AM EDT Problem: Patient Care Overview Goal: Plan of Care Review 07/10/16 16407/11/16 0334 Coping/Psychosocial Plan Of Care Reviewed With -- patient Plan of Care Review Progress no change -- Goal: Fall Prevention-Safe Patient Handling 07/10/16 16407/10/162024 Restraint Interventions Safety Promotion/Fall Prevention -- activity supervised;fall prevention program maintained;nonskid shoes/slippers when out of bed;safety round/check completed Musculoskeletal Interventions Muscle Strengthening activity/mobility promoted;mobility in bed promoted;personal routines for BADL/IADL promoted;sitting on edge of bed encouraged;up in chair encouraged for meals and activities -- Activity and Safety Assistive Device None -- Daily Care Interventions Self-Care Promotion -- independence encouraged;BADL personal objects within reach;BADL personal routines maintained Oneal Fall Risk History of Falling -- 0 Secondary Diagnosis -- 15 Ambulatory Aids -- 15 Intravenous Therapy/Heparin/Saline Lock -- 20 Gait/Transferring -- 0 Mental Status -- 0 Score -- 50 OTHER Oneal Fall Risk -- High Positioning Body Position -- independent Goal: Infection Control 07/10/162024 Safety Interventions Isolation Precautions standard precautions maintained Infection Prevention environmental surveillance performed;rest/sleep promoted Coping Strategies Supportive Measures active listening utilized;goal setting facilitated;relaxation techniques promoted;self-care encouraged;self-reflection promoted;self-responsibility promoted;verbalization of feelings encouraged Goal: Discharge Needs Assessment 07/08/16 2256 07/10/16 0553 07/10/16 1800 Discharge Needs Assessment Concerns To Be Addressed -- financial/insurance concerns;medication concerns;substance/tobacco abuse/use concerns -- Readmission Within The Last 30 Days -- no previous admission in last 30 days -- Current Discharge Risk -- lives alone;chronically ill -- Discharge Disposition -- home or self-care -- Activity/Self Care Review of Systems Equipment Currently Used at Home cane, straight -- -- Living Environment Transportation Available -- -- family or friend will provide Goal: Interdisciplinary Rounds/Family Conf 07/11/16 0334 Interdisciplinary Rounds/Family Conf Participants patient;nursing OUTCOME EVALUATION NOTE: OUTCOME SUMMARY: Pt A+O. No complaints of chest pain or SOB. Tylenol administered overnight for neuropathy pain. Heparin gtt maintained. PLAN MOVING FORWARD: cardiac surgery INDIVIDUALIZED FALL PREVENTION INTERVENTIONS: Patient-specific fall risk factors per assessment: [current deficits]: telemetry cords. Assistance [level of assistance required for transfers and ambulation]: SB w IV pole, uses cane at home Supervision [direct monitoring required during toileting and ADLs]: SB Surveillance [continuous indirect monitoring]: rounds, tele. Patient-specific fall prevention interventions for sensory deficits provided, if applicable: Low bed, call le in reach, rings appropriately, nonskid slippers when out of bed. CPG GOAL OUTCOME EVALUATION: Ongoing Problem: Skin Integrity Impairment, Risk/Actual (Adult) Goal: Identify Related Risk Factors and Signs and Symptoms Related risk factors and signs and symptoms are identified upon initiation of Human Response Clinical Practice Guideline (CPG) 07/11/16 0334 Skin Integrity Impairment, Risk/Actual Skin Integrity Impairment, Risk/Actual: Related Risk Factors surgery/procedure Goal: Skin Integrity/Wound Healing Patient will demonstrate the desired outcomes by discharge/transition of care. 07/10/16 1649 Skin Integrity Impairment, Risk/Actual (Adult) Skin Integrity/Wound Healing making progress toward outcome Problem: Cardiac Cath/Percutaneous Coronary Intervention (Adult) Goal: Signs and Symptoms of Listed Potential Problems Will be Absent, Minimized or Managed (Cardiac Cath/Percutaneous Coronary Intervention) Signs and symptoms of listed potential problems will be absent, minimized or managed by discharge/transition of care (reference Cardiac Cath/Percutaneous Coronary Intervention (Adult) CPG). 07/10/162024 Cardiac Cath/Percutaneous Coronary Intervention Problems Assessed (Cardiac Catheterization) all Problems Present (Cardiac Catheterization) none Problem: Health Knowledge, Opportunity to Enhance (Adult,NICU,,Obstetrics,Pediatric) Goal: Knowledgeable about Health Subject/Topic Patient will demonstrate the desired outcomes by discharge/transition of care. 07/10/16 164 Health Knowledge, Opportunity to Enhance (Adult,NICU,[place],Obstetrics,Pediatric) Knowledgeable about Health Subject/Topic making progress toward outcome Plan of Care - Anastacio King RN - 07/10/2016 4:52 PM EDT Problem: Patient Care Overview Goal: Plan of Care Review Outcome: Ongoing (Interventions Implemented as Appropriate) 07/10/16 0807/10/16 164 Coping/Psychosocial Plan Of Care Reviewed With patient -- Plan of Care Review Progress -- no change OUTCOME EVALUATION NOTE: OUTCOME SUMMARY: Patient is alert and oriented. VSS. No reports of pain or discomfort this shift. Patient tolerating low level of activity in room. Patient has had a good day. PLAN MOVING FORWARD: Awaiting CT surgery INDIVIDUALIZED FALL PREVENTION INTERVENTIONS: Patient-specific fall risk factors per assessment: [current deficits]: Medications, medical diagnoses Assistance [level of assistance required for transfers and ambulation]: Standby assist Supervision [direct monitoring required during toileting and ADLs]: Intermittent; able to reliably call for assistance Surveillance [continuous indirect monitoring]: Purposeful Hourly Rounding; call le in reach; room kept free of obstacles; electrical instrument technician attached and alarms and settings reviewed q 4 hours. Patient-specific fall prevention interventions for sensory deficits provided, if applicable: CPG GOAL OUTCOME EVALUATION: ongoing Goal: Fall Prevention-Safe Patient Handling Outcome: Ongoing (Interventions Implemented as Appropriate) 07/10/16 0800 07/10/16 1649 Restraint Interventions Safety Promotion/Fall Prevention -- fall prevention program maintained;nonskid shoes/slippers when out of bed Musculoskeletal Interventions Muscle Strengthening -- activity/mobility promoted;mobility in bed promoted;personal routines for BADL/IADL promoted;sitting on edge of bed encouraged;up in chair encouraged for meals and activities Activity and Safety Assistive Device -- None Daily Care Interventions Self-Care Promotion -- independence encouraged;BADL personal objects within reach;BADL personal routines maintained Oneal Fall Risk History of Falling 0 -- Secondary Diagnosis 15 -- Ambulatory Aids 15 -- Intravenous Therapy/Heparin/Saline Lock 20 -- Gait/Transferring 0 -- Mental Status 0 -- Score 50 -- OTHER Oneal Fall Risk High -- Positioning Body Position independent -- Goal: Infection Control Outcome: Ongoing (Interventions Implemented as Appropriate) 07/10/16 0800 Safety Interventions Isolation Precautions standard precautions maintained Infection Prevention environmental surveillance performed;rest/sleep promoted Coping Strategies Supportive Measures active listening utilized;decision-making supported;positive reinforcement provided;problem solving facilitated;self-care encouraged;verbalization of feelings encouraged Plan of Care - Juliana Carias RN - 07/10/2016 6:00 AM EDT Problem: Patient Care Overview Goal: Plan of Care Review Outcome: Ongoing (Interventions Implemented as Appropriate) 07/09/16203007/10/16 0553 Coping/Psychosocial Plan Of Care Reviewed With patient -- Plan of Care Review Progress -- progress towards functional goals is fair OUTCOME EVALUATION NOTE: OUTCOME SUMMARY: Uneventful shift. Some improvement in blood sugar with increased basal insulin orders. Pain r/t neuropathy controlled with prn tylenol. No other complaints of pain. SR on telemetry with rare PVCs. Heparin gtt maintained. Will continue to monitor. PLAN MOVING FORWARD: CABG on Tuesday INDIVIDUALIZED FALL PREVENTION INTERVENTIONS: Patient-specific fall risk factors per assessment: [current deficits]: Neuropathy, telemetry wires, IV tubing Assistance [level of assistance required for transfers and ambulation]: SBA, cane Supervision [direct monitoring required during toileting and ADLs]: Independent Surveillance [continuous indirect monitoring]: Telemetry Patient-specific fall prevention interventions for sensory deficits provided, if applicable: [X] No CPG GOAL OUTCOME EVALUATION: Ongoing Goal: Individualization & Mutuality Outcome: Ongoing (Interventions Implemented as Appropriate) 07/08/162253 Mutuality/Individual Preferences What Anxieties, Fears or Concerns Do You Have About Your Health or Care? That I may of a heart attack What Questions Do You Have About Your Health or Care? Will I need to have open heart surgery? Goal: Fall Prevention-Safe Patient Handling Outcome: Ongoing (Interventions Implemented as Appropriate) 07/09/162030 Oneal Fall Risk History of Falling 0 Secondary Diagnosis 15 Ambulatory Aids 15 Intravenous Therapy/Heparin/Saline Lock 20 Gait/Transferring 0 Mental Status 0 Score 50 OTHER Oneal Fall Risk High Restraint Interventions Safety Promotion/Fall Prevention nonskid shoes/slippers when out of bed Positioning Body Position independent Goal: Infection Control Outcome: Ongoing (Interventions Implemented as Appropriate) 07/09/162030 Safety Interventions Isolation Precautions standard precautions maintained Infection Prevention rest/sleep promoted Coping Strategies Supportive Measures active listening utilized Goal: Discharge Needs Assessment Outcome: Ongoing (Interventions Implemented as Appropriate) 07/08/16225507/10/16 05 Discharge Needs Assessment Concerns To Be Addressed -- financial/insurance concerns;medication concerns;substance/tobacco abuse/use concerns Readmission Within The Last 30 Days -- no previous admission in last 30 days Current Discharge Risk -- lives alone;chronically ill Discharge Disposition -- home or self-care Activity/Self Care Review of Systems Equipment Currently Used at Home cane, straight -- Problem: Cardiac Cath/Percutaneous Coronary Intervention (Adult) Goal: Signs and Symptoms of Listed Potential Problems Will be Absent, Minimized or Managed (Cardiac Cath/Percutaneous Coronary Intervention) Signs and symptoms of listed potential problems will be absent, minimized or managed by discharge/transition of care (reference Cardiac Cath/Percutaneous Coronary Intervention (Adult) CPG). Outcome: Ongoing (Interventions Implemented as Appropriate) 07/09/16 0505 Cardiac Cath/Percutaneous Coronary Intervention Problems Assessed (Cardiac Catheterization) all Problems Present (Cardiac Catheterization) none Problem: Health Knowledge, Opportunity to Enhance (Adult,NICU,[place],Obstetrics,Pediatric) Goal: Identify Related Risk Factors and Signs and Symptoms Related risk factors and signs and symptoms are identified upon initiation of Human Response Clinical Practice Guideline (CPG) Outcome: Outcome (s) achieved Date Met: 07/10/16 07/09/16 0505 Health Knowledge, Opportunity to Enhance Health Knowledge, Opportunity for Enhanced: Related Risk Factors patient/family priorities;prognosis/treatment plan Signs and Symptoms (Health Knowledge Enhance) lack of adherence to prescribed health behavior;inaccurate perception of health status;information requested Goal: Knowledgeable about Health Subject/Topic Patient will demonstrate the desired outcomes by discharge/transition of care. Outcome: Ongoing (Interventions Implemented as Appropriate) 07/10/16 0553 Health Knowledge, Opportunity to Enhance (Adult,NICU,[place],Obstetrics,Pediatric) Knowledgeable about Health Subject/Topic making progress toward outcome Initial Assessments - Samuel Garcia - 07/09/2016 1:42 PM EDT Office of Care Management Initial Assessment Samuel Garcia RN reviewed record and discussed patient with Care Team. Help Desk Team Leader is assisting CORTES Howard, who is the field case manager assigned to pt's case. Source of Information: Patient Introduced self/reviewed role; services accepted. Reason for Hospitalization: Chest pain No past medical history on file. Hospitalizations Within the Past 30 Days: Pt transferred from [facility] Anticipated Length Of Stay (If known): Unknown at this time Current Decision-Making Capacity: Alert and Oriented Advance Care Planning: Pt given [place] AD information. Current Coping/Education/Information Needs: Understands current plan for care, pt is to have CABG onMonday. Current Functional Ability: Independent Functional Status Prior to Admission: Independent, drives self, completes all personal care at home. Home Environment: Pt lives alone in a mobile home. There is a ramp or x4 steps with railing to enterthe home, and all of the living area is on x1 level. Social & Family Supports/Community Resources: Son Bertin for support, girlfriend Marianne who comes to stay with him every other weekend. Behavioral Health History: Depression, pt does not take any medication due to financial concerns Substance Use/Abuse: Smokes 1 PPD, drinks 2-3 beers daily, smokes marijuana 2-3 times per week Other Pertinent/Service Specific Information: None identified at this time Health/Prescription Coverage: Primary Insurance: No coverage Secondary Insurance: No coverage Prescription Coverage: No coverage Preferred [facility]acy: [facility] [place] Other: n/a Primary Care Provider: Zay Montilla MD [phone] Patient/Caregiver Goals of Treatment: Return home Potential Needs for Transition of Care: Rehab/SNF: Need to be determined Home Health: Pt stated he would use [facility] if he had the financial means to cover in home care. DME: cane, tens unit, bilateral lower extremity compression devices Dialysis: n/a Community Resources: n/a Transportation: Son to transport upon d/c Other: n/a Anticipated Barriers to Discharge/Special Considerations: Pt stated he is a , yet has not applied for any benefits. Pt is also wondering if he would qualify for disability after his CABG. Pt stated he has not had any of his home medications for x8 month due to his financial situation. Concerns were addressed with PILOT MANAGER who will follow up with pt. Plan: CABG on Tuesday. Needs to be determined. Pt will likely return home upon d/c. A member of the Care Management team will continue to monitor progress, follow for continuity of care and assist with transition of care planning. Samuel Garcia RN Pager: [phone] Consult Note - Lyla Mohr, KIRK - 07/09/2016 1:31 PM EDT Diabetes Management Team Inpatient Consult Date of Consultation: 07/09/2016 Consult Requested by: Heavenly Perez MD Cardiology Reason for consult: 55 year old male uncontrolled DM, noncompliance at home Reason for Consultation: Bertin Berry is a 55 y.o. years old male with PMH significant for ASCVD, COPD, HTN, HLD, depression, and T2DM and reportedly off medications for past 8 mo who was admitted on 07/08/2016 currently being treated for chest pain, found to have 3 vessel disease and planned for CABG on Wednesday 07/12. 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 Diabetes History: Bertin Berry has had diabetes for about 6 years. First noticed blurry vision, but girlfriend at the time had been telling him for a year he was showing symptoms of diabetes. Previous medications the patient has tried to control their diabetes include glipizide and metformin. Has aversion to taking pills, and couldn't afford them, said that made it real easy to stopping them. Was taking up to 14 prescriptions before he discontinued. Current Glucose Trends: When he was taking glipizide and metformin, he was typically around 160. Would check before breakfast and dinner. Was in 140-180 range for 4-6 mo. Current outpatient diabetes regimen: Patient's diabetes medications are managed by N/A (no PCP Medications: Patient has been unable to afford medications for past 8 mo, was prescribed glipizide and metformin Monitoring is done 2 times a day until 8 mo ago when he stopped Most recent HA1c was done on 07/09/16 and was 12.7%, suggesting an average glucose of 318 mg/dL for the past 6-8 weeks. Typical diet is: 1 meals and 1-2 snacks a day Supper- Meat, potato, veggies, seafood 9/10pm : Cheese and crackers Has been watching cooking channels Adds no salt to food he's cooking Drinks a lot of water, also drinks watermelon zeina iced tea Typical exercise regimen is Trouble with hypoglycemia never Diabetes Complications Status: Eyes: Denies Kidneys: Denies Feet: + impaired healing Sensory: BL foot pain at rest Autonomic: Denies Cardiac: + as per HPI Current Hospital Diabetes Care: Medications: Humalog moderate sliding scale q 4 hrs Monitoring: q 4 hrs Diet: Daily healthy menu choices/cardiac diet ROS: Constitutional: Recent weight loss of 20 lbs, loses weight when he is struggling with diverticulitis Endocrine: + increased thirst, urination Eyes: + recent vision change ENT: Denies dysphagia, + dental issues Cardiovascular: Denies chest pain Respiratory: Denies wheezing , shortness of breath GI: Denies nausea, vomiting, diarrhea, constipation : Denies frequent urinary tract infections Neurological: Denies weakness or numbness Integumentary: Denies ulcers, wounds, Endorses impaired healing PMH No past medical history on file. Current Hospital Medications: ??? insulin lispro 2-8 Units Subcutaneous Q4H ??? atorvastatin 80 mg Oral QPM ??? meTOPROLOL tartrate 25 mg Oral Q6H JANEEN ??? sodium chloride 0.9 % 5 mL Intravenous BID ??? nicotine 21 mg Transdermal Daily And ??? Patch Verification 1 patch Transdermal BID And ??? nicotine 1 patch Transdermal Daily ??? aspirin 81 mg Oral Daily Infusions: ??? heparin (porcine) 900 Units/hr (07/09/16 0200) ??? nitroGLYcerin 15 mcg/min (07/09/16 0600) PRN: heparin (porcine) AND heparin (porcine), potassium chloride OR potassium chloride, acetaminophen, sodium chloride 0.9 %, lidocaine, dextrose 50% OR glucagon (human recombinant), nitroGLYcerin Allergy: No Known Allergies Social history: Social History Substance Use Topics ??? Smoking status: Current Every Day Smoker Packs/day: 1.00 Years: 40.00 ??? Smokeless tobacco: Not on file Comment: I've tried multiple times ??? Alcohol use Not on file Family history: No family history on file. 2 Brothers with DM Vitals Last value Range last 24 hrs Temperature Temp: 36.6 ??C (97.9 ??F) Temp: [35.6 ??C (96.1 ??F)-37 ??C (98.6 ??F)] Heart Rate Heart Rate: 82 Heart Rate: [76-99] Blood Pressure BP: (!) 143/91 BP: (118-173)/(74-98) Respiratory Rate Resp: 14 Resp: [10-22] SpO2 SpO2: 98 % SpO2: [88 %-99 %] Physical Exam: Gen: NAD, talking in clear sentences. Laying in bed comfortably HEENT: Oral mucus membranes moist no obvious inflammation Lymph: No lymphadenopathy Endocrine: no thyromegaly Heart: RRR, no murmurs. Radial pulses, DP, PT +2. Lungs: CTAB, breathing non-labored. No wheezes or rhonchi. Good aeration Abd: Soft, non-distended, non-tender x4 quadrants, +bs SKIN: No open areas or redness to both feet. Callouses to BL heels Neuro: Moving all extremities. Grossly non-focal. Sensation intact to BLL extremities Assessment: Patient is a 55 y.o. years old male with PMH significant for ASCVD, COPD, HTN, HLD, depression, reportedly off all medications for past 8 due to financial constraints, active tobacco use, and T2DM (Last A1C of 12.7) who was admitted on 07/08/2016 for chest pain, now awaiting CABG. Diabetes suboptimallycontrolled and complicated by lack of access to preventive medical therapy, infarction, and stress of hospitalization and upcoming procedure. Currently with variability of blood glucose levels while hospitalized requiring adjustment of insulin regimen and DM medications. Will start basal bolus regimen to control patient's BG while inpatient. As patient is insulin naive,will start with weight based basal of 22 units, and 1:10 insulin to carb ratio. Will modify SSI for now to facilitate dosefinding, as weight based dosing does not account for insulin resistance associated with T2DM Plan: 1. Start Lantus 22 units qd 2. Humalog custom sliding scale for BG>140 CORRECTION BOLUS Custom BG 140 - 160 Give 1 units BG 161 - 180 Give 2 units BG 181 - 200 Give 3 units BG 201 - 220 Give 4 units BG 221 - 240 Give 5 units BG greater than 240, give 6 units and recheck BG in 2 hours. If BG remains greater than 240, repeat 6 units (no more than three times) & call for new basal insulin orders. If less than 240 after two hours, give no insulin and resume prior schedule. 3. Meal-associated Humalog 0-8 units tid ac (or 1unit: 10 gm carb ratio for each meal) 4. Recommend carb control diet to help achieve glycemic control in preparation for cardiac surgery planned for Tuesday Discussed recommendations above with MD Chatman who will place the above orders terminal supervisor diabetes care: Medications - Outpatient treatment regimen recommendations pending based on the hospital course. Monitoring - continue BG tid ac & hs Diet - low fat/low carb diet Exercise - weight-bearing exercise 30 min/day, as tolerated Thank you for allowing us to provide care for your patient Lyla Mohr APRN Endocrinology, Diabetes Management Team Pager [phone] Plan of Care - Angeli Galindo RN - 07/09/2016 5:12 AM EDT Problem: Patient Care Overview Goal: Plan of Care Review Outcome: Ongoing (Interventions Implemented as Appropriate) 07/09/16 8615 Coping/Psychosocial Plan Of Care Reviewed With patient Plan of Care Review Progress no change OUTCOME EVALUATION NOTE: OUTCOME SUMMARY: Pt remained pain free O/N, BP controlled w/ nitro gtt, goal of SBP<140. Heparin gtt initiated after hemostasis achieved from LLE sheath removal. No bleeding/hematoma from access site. Pt remained onbedrest until 5am. Currently treating elevated blood glucose w/ ISS q2. Education provided on current medical management and health status. Resting comfortably. PLAN MOVING FORWARD: Continue to monitor hemodynamic, cardiac status. INDIVIDUALIZED FALL PREVENTION INTERVENTIONS: Patient-specific fall risk factors per assessment: [current deficits]: recent PCI, bedrest Assistance [level of assistance required for transfers and ambulation]: independent Supervision [direct monitoring required during toileting and ADLs]: Standby assist Surveillance [continuous indirect monitoring]: Telemetry, pulse oximetry, purposeful hourly rounding Patient-specific fall prevention interventions for sensory deficits provided, if applicable: NA CPG GOAL OUTCOME EVALUATION: Problem: Skin Integrity Impairment, Risk/Actual (Adult) Goal: Identify Related Risk Factors and Signs and Symptoms Related risk factors and signs and symptoms are identified upon initiation of Human Response Clinical Practice Guideline (CPG) Outcome: Ongoing (Interventions Implemented as Appropriate) 07/09/16 0505 Skin Integrity Impairment, Risk/Actual Skin Integrity Impairment, Risk/Actual: Related Risk Factors surgery/procedure;tissue perfusion impaired Problem: Cardiac Cath/Percutaneous Coronary Intervention (Adult) Goal: Signs and Symptoms of Listed Potential Problems Will be Absent, Minimized or Managed (Cardiac Cath/Percutaneous Coronary Intervention) Signs and symptoms of listed potential problems will be absent, minimized or managed by discharge/transition of care (reference Cardiac Cath/Percutaneous Coronary Intervention (Adult) CPG). Outcome: Ongoing (Interventions Implemented as Appropriate) 07/09/16 0505 Cardiac Cath/Percutaneous Coronary Intervention Problems Assessed (Cardiac Catheterization) all Problems Present (Cardiac Catheterization) none Problem: Health Knowledge, Opportunity to Enhance (Adult,NICU,,Obstetrics,Pediatric) Goal: Identify Related Risk Factors and Signs and Symptoms Related risk factors and signs and symptoms are identified upon initiation of Human Response Clinical Practice Guideline (CPG) Outcome: Ongoing (Interventions Implemented as Appropriate) 07/09/16 0505 Health Knowledge, Opportunity to Enhance Health Knowledge, Opportunity for Enhanced: Related Risk Factors patient/family priorities;prognosis/treatment plan Signs and Symptoms (Health Knowledge Enhance) lack of adherence to prescribed health behavior;inaccurate perception of health status;information requested Consult Note - Valentino Pérez MD - 07/08/2016 8:26 PM EDT Cardiothoracic Surgery Consultation Bertin Berry is seen at the request of the inpatient service for the evaluation of CAD. HPI: Bertin Berry is a 55 y.o. year old male who is a known smoker with type 2 DM. He presents with unstable angina and a positive troponin from an [place]. He has had class 2 nyha heart failure symptoms that have been going on for greater than a year. Problem List: Patient Active Problem List Diagnosis ??? NSTEMI (non-ST elevated myocardial infarction) ??? DM2 (diabetes mellitus, type 2) ??? Tobacco abuse ??? Hyperlipidemia ??? OA (osteoarthritis) Past Medical History: No past medical history on file. Past Surgical History: No past surgical history on file. Family History: No family history on file. Social History: Social History Social History ??? Marital status: Single Spouse name: N/A ??? Number of children: N/A ??? Years of education: N/A Social History Main Topics ??? Smoking status: Current Every Day Smoker Packs/day: 1.00 Years: 40.00 ??? Smokeless tobacco: Not on file Comment: I've tried multiple times ??? Alcohol use Not on file ??? Drug use: 3.00 per week Special: Marijuana ??? Sexual activity: Yes Partners: Female control/ protection: Condom Other Topics Concern ??? Not on file Social History Narrative Review of Systems: Constitutional - no weakness, fatigue, fevers HEENT - no visual changes; no hearing changes; no recent URI sx Neck - no new pain, limitation of motion Cardiovascular - no mur Pulmonary - no dyspnea, cough, bronchitis, pneumonias GI - no abdominal pain, constipation, diarrhea - no frequency, nocturia, dysuria Musculoskeletal - no muscle pain, new limitation of motion Extremities - no edema Neuro - no confusion, weakness, syncope, paresthesias Hematologic - no bruising, excessive bleeding Allergies: No Known Allergies Meds: No outpatient prescriptions have been marked as taking for the 07/08/16 encounter (Hospital Encounter). Physical Exam: Vitals: 07/09/16 0600 BP: 123/74 Pulse: 78 Resp: 19 Temp: 36.9 ??C (98.4 ??F) @LASTENCWT@ Constitutional:Well appearing in no acute distress. Skin: Warm, well perfused. HEENT: within normal limits. NC/AT EOMI Neck: supple, no JVD, no bruit. Heart: regular rate and rhythm, without murmurs. Lungs: clear bilaterally. Abdomen: soft, nontender, active bowel sounds, no masses noted. Extremities: full range of motion; no clubbing, cyanosis, or edema. Neuro exam: Alert and oriented x 3. Strength grossly normal. Diagnositcs: Recent Labs 07/09/16 0130 WBC 12.2* NA 136 K 3.7 CL 94* CO2 25 GLUCOSE 270* CATH: ef about 50% 65% lad with a 90% diag, 65%cx and rca. He has severe PVD as well ECHO: pending Assessment and Plan: Bertin Berry is a 55 yo male with high cholesterol, active smoking and type 2 dm with a non-stemi. His cath reveals severe 3vd with a decreased lv function at the lower limit of normal. He seem to be a reasonable candidate for bypass surgery. We had a long discussion regarding the risks and benefits of surgery. The risks include but are not limited to stroke, damage to any organ (heart, lung, liver, kidneys, brain, etc.), infection, need for blood transfusion with the concomitant risks of AIDS and hepatitis, renal failure resulting in dialysis, prolonged respiratory failure requiring mechanical ventilation, graft failure, and the possibility of . He seems to understand and wishes to proceed. We will plan a surgery date soon. ED Triage - Gabrielle Buckley RN - 07/08/2016 5:37 PM EDT Pt shoveling snow this am started having chest pain around 1200 pt had episode of vomiting, center of chest with radiating to BUE. Pt pain free now. A/ox4. Warm/pin/dry. Speaking full sentences. documented in this encounter Plan of Treatment Scheduled Orders Name Type Priority Associated Diagnoses Order S chedule EKG 12 Lead ECG Routine S/P CABG (coronary artery by pass graft) Ordered: 07/16/2016 Scheduled Referrals Name Type Priority Associated Diagnoses Order S chedule Referral to Outpatient Referral Routine S/P CABG (coronary Or dered: Cardiac Rehab artery bypass graft) 2016 documented as of this encounter Procedures Procedure Name Priority Date/Time Associated Comments Diagnosis LAB SCAN 07/17/2016 12:00 Results for this AM EDT procedure are i n the results section. SERVICE DIRECTOR SCAN 07/17/2016 12:00 Res ults for this AM EDT procedure are i n the results section. POCT GLUCOSE Routine 07/16/2016 11:55 Results for this AM EDT procedure are i n the results section. POCT GLUCOSE Routine 07/16/2016 7:34 Results for this AM EDT procedure are i n the results section. HEMOGRAM Routine 07/16/2016 4:13 Results for this AM EDT procedure are i n the results section. DIFFERENTIAL, AUTOMATED Routine 07/16/2016 4:13 R esults for this AM EDT procedure are i n the results section. CBC (WITH DIFF) Routine 07/16/2016 4:13 AM EDT BASIC METABOLIC PANEL Routine 07/16/2016 4:13 Res ults for this (NON-FASTING) AM EDT procedure are in the results section. POCT GLUCOSE Routine 07/16/2016 3:58 Results for this AM EDT procedure are i n the results section. POCT GLUCOSE Routine 07/15/2016 11:58 Results for this PM EDT procedure are i n the results section. POCT GLUCOSE Routine 07/15/2016 9:13 Results for this PM EDT procedure are i n the results section. POCT GLUCOSE Routine 07/15/2016 7:55 Results for this PM EDT procedure are i n the results section. POCT GLUCOSE Routine 07/15/2016 4:24 Results for this PM EDT procedure are i n the results section. POCT GLUCOSE Routine 07/15/2016 11:32 Results for this AM EDT procedure are i n the results section. XR CHEST PA AND LATERAL Routine 07/15/2016 11:03 Results for this AM EDT procedure are i n the results section. POCT GLUCOSE Routine 07/15/2016 6:57 Results for this AM EDT procedure are i n the results section. BMP W/FASTING GLUCOSE Routine 07/15/2016 6:45 Res ults for this AM EDT procedure are i n the results section. HEMOGRAM Routine 07/15/2016 6:45 Results for this AM EDT procedure are i n the results section. DIFFERENTIAL, AUTOMATED Routine 07/15/2016 6:45 R esults for this AM EDT procedure are i n the results section. CBC (WITH DIFF) Routine 07/15/2016 6:45 AM EDT POCT GLUCOSE Routine 07/15/2016 6:15 Results for this AM EDT procedure are i n the results section. POCT GLUCOSE Routine 07/15/2016 4:56 Results for this AM EDT procedure are i n the results section. POCT GLUCOSE Routine 07/15/2016 4:00 Results for this AM EDT procedure are i n the results section. POCT GLUCOSE Routine 07/15/2016 3:00 Results for this AM EDT procedure are i n the results section. POCT GLUCOSE Routine 07/15/2016 2:01 Results for this AM EDT procedure are i n the results section. POCT GLUCOSE Routine 07/15/2016 1:03 Results for this AM EDT procedure are i n the results section. POCT GLUCOSE Routine 07/14/2016 11:56 Results for this PM EDT procedure are i n the results section. POTASSIUM Routine 07/14/2016 11:41 Results for this PM EDT procedure are i n the results section. POCT GLUCOSE Routine 07/14/2016 11:01 Results for this PM EDT procedure are i n the results section. POCT GLUCOSE Routine 07/14/2016 10:30 Results for this PM EDT procedure are i n the results section. POCT GLUCOSE Routine 07/14/2016 10:01 Results for this PM EDT procedure are i n the results section. POCT GLUCOSE Routine 07/14/2016 8:59 Results for this PM EDT procedure are i n the results section. POCT GLUCOSE Routine 07/14/2016 8:10 Results for this PM EDT procedure are i n the results section. POCT GLUCOSE Routine 07/14/2016 6:54 Results for this PM EDT procedure are i n the results section. POCT GLUCOSE Routine 07/14/2016 5:18 Results for this PM EDT procedure are i n the results section. POCT GLUCOSE Routine 07/14/2016 3:44 Results for this PM EDT procedure are i n the results section. POCT GLUCOSE Routine 07/14/2016 2:45 Results for this PM EDT procedure are i n the results section. POCT GLUCOSE Routine 07/14/2016 1:48 Results for this PM EDT procedure are i n the results section. POCT GLUCOSE Routine 07/14/2016 11:59 Results for this AM EDT procedure are i n the results section. POCT GLUCOSE Routine 07/14/2016 10:43 Results for this AM EDT procedure are i n the results section. POCT GLUCOSE Routine 07/14/2016 9:51 Results for this AM EDT procedure are i n the results section. POCT GLUCOSE Routine 07/14/2016 8:16 Results for this AM EDT procedure are i n the results section. POCT GLUCOSE Routine 07/14/2016 7:36 Results for this AM EDT procedure are i n the results section. BLOOD GAS 2 ARTERIAL Routine 07/14/2016 7:36 Resu lts for this AM EDT procedure are i n the results section. XR CHEST ONE VIEW STAT 07/14/2016 7:16 Results for this AM EDT procedure are i n the results section. HEMOGRAM STAT 07/14/2016 6:45 Results for this AM EDT procedure are i n the results section. DIFFERENTIAL, AUTOMATED STAT 07/14/2016 6:45 R esults for this AM EDT procedure are i n the results section. CBC (WITH DIFF) STAT 07/14/2016 6:45 AM EDT BASIC METABOLIC PANEL STAT 07/14/2016 6:45 Res ults for this (NON-FASTING) AM EDT procedure are in the results section. POCT GLUCOSE Routine 07/14/2016 6:23 Results for this AM EDT procedure are i n the results section. POCT GLUCOSE Routine 07/14/2016 5:45 Results for this AM EDT procedure are i n the results section. POCT GLUCOSE Routine 07/14/2016 2:32 Results for this AM EDT procedure are i n the results section. POCT GLUCOSE Routine 07/14/2016 1:22 Results for this AM EDT procedure are i n the results section. POCT GLUCOSE Routine 07/14/2016 12:21 Results for this AM EDT procedure are i n the results section. BLOOD GAS 2 ARTERIAL Routine 07/14/2016 12:01 Res ults for this AM EDT procedure are i n the results section. POCT GLUCOSE Routine 07/13/2016 11:14 Results for this PM EDT procedure are i n the results section. BLOOD GAS 2 ARTERIAL Routine 07/13/2016 9:58 Resu lts for this PM EDT procedure are i n the results section. POCT GLUCOSE Routine 07/13/2016 9:04 Results for this PM EDT procedure are i n the results section. BLOOD GAS 2 ARTERIAL Routine 07/13/2016 8:43 Resu lts for this PM EDT procedure are i n the results section. XR CHEST ONE VIEW STAT 07/13/2016 8:37 Results for this PM EDT procedure are i n the results section. POCT GLUCOSE Routine 07/13/2016 7:50 Results for this PM EDT procedure are i n the results section. POCT GLUCOSE Routine 07/13/2016 6:06 Results for this PM EDT procedure are i n the results section. POCT GLUCOSE Routine 07/13/2016 5:09 Results for this PM EDT procedure are i n the results section. POCT GLUCOSE Routine 07/13/2016 4:08 Results for this PM EDT procedure are i n the results section. POCT GLUCOSE Routine 07/13/2016 2:11 Results for this PM EDT procedure are i n the results section. POCT GLUCOSE Routine 07/13/2016 12:51 Results for this PM EDT procedure are i n the results section. POCT GLUCOSE Routine 07/13/2016 11:40 Results for this AM EDT procedure are i n the results section. POCT GLUCOSE Routine 07/13/2016 10:29 Results for this AM EDT procedure are i n the results section. POCT GLUCOSE Routine 07/13/2016 9:55 Results for this AM EDT procedure are i n the results section. POCT GLUCOSE Routine 07/13/2016 9:13 Results for this AM EDT procedure are i n the results section. EKG 12-LEAD STAT 07/13/2016 7:32 S/P CABG (coronary Result s for this AM EDT artery bypass procedure are in graft) the results section. POCT GLUCOSE Routine 07/13/2016 7:31 Results for this AM EDT procedure are i n the results section. POCT GLUCOSE Routine 07/13/2016 7:05 Results for this AM EDT procedure are i n the results section. POCT GLUCOSE Routine 07/13/2016 6:10 Results for this AM EDT procedure are i n the results section. POCT GLUCOSE Routine 07/13/2016 5:13 Results for this AM EDT procedure are i n the results section. POCT GLUCOSE Routine 07/13/2016 4:15 Results for this AM EDT procedure are i n the results section. HEMOGRAM Routine 07/13/2016 4:10 Results for this AM EDT procedure are i n the results section. DIFFERENTIAL, AUTOMATED Routine 07/13/2016 4:10 R esults for this AM EDT procedure are i n the results section. CARDIAC ENZYMES Routine 07/13/2016 4:10 Results f or this ([facility] [place] AM EDT procedure are i n the results section. CREATININE Routine 07/13/2016 4:10 Results for this AM EDT procedure are i n the results section. CBC (WITH DIFF) Routine 07/13/2016 4:10 AM EDT BUN Routine 07/13/2016 4:10 Results for this AM EDT procedure are i n the results section. GLUCOSE, FASTING Routine 07/13/2016 4:10 Results for this AM EDT procedure are i n the results section. ELECTROLYTES PANEL Routine 07/13/2016 4:10 Result s for this AM EDT procedure are i n the results section. POCT GLUCOSE Routine 07/13/2016 2:50 Results for this AM EDT procedure are i n the results section. POCT GLUCOSE Routine 07/13/2016 2:02 Results for this AM EDT procedure are i n the results section. POCT GLUCOSE Routine 07/13/2016 1:12 Results for this AM EDT procedure are i n the results section. POCT GLUCOSE Routine 07/12/2016 11:56 Results for this PM EDT procedure are i n the results section. EXTUBATE Routine 07/12/2016 10:52 PM EDT POCT GLUCOSE Routine 07/12/2016 10:47 Results for this PM EDT procedure are i n the results section. BLOOD GAS 2 ARTERIAL Routine 07/12/2016 10:47 Res ults for this PM EDT procedure are i n the results section. POCT GLUCOSE Routine 07/12/2016 10:05 Results for this PM EDT procedure are i n the results section. POCT GLUCOSE Routine 07/12/2016 8:57 Results for this PM EDT procedure are i n the results section. HEMOGLOBIN Routine 07/12/2016 8:55 Results for this PM EDT procedure are i n the results section. POTASSIUM Routine 07/12/2016 8:55 Results for this PM EDT procedure are i n the results section. POCT GLUCOSE Routine 07/12/2016 7:45 Results for this PM EDT procedure are i n the results section. LUNG RECRUITMENT Routine 07/12/2016 7:13 MANEUVER PM EDT BLOOD GAS 2 ARTERIAL Routine 07/12/2016 7:07 Resu lts for this PM EDT procedure are i n the results section. XR CHEST ONE VIEW STAT 07/12/2016 5:46 Results for this PM EDT procedure are i n the results section. EKG 12-LEAD STAT 07/12/2016 5:32 S/P CABG (coronary Result s for this PM EDT artery bypass procedure are in graft) the results section. BLOOD GAS 2 ARTERIAL Routine 07/12/2016 5:31 Resu lts for this PM EDT procedure are i n the results section. BLOOD GAS 2 ARTERIAL Routine 07/12/2016 3:58 Resu lts for this PM EDT procedure are i n the results section. SCAN, PERIPHERAL BLOOD STAT 07/12/2016 3:50 Re sults for this PM EDT procedure are i n the results section. HEMOGRAM STAT 07/12/2016 3:50 Results for this PM EDT procedure are i n the results section. DIFFERENTIAL, AUTOMATED STAT 07/12/2016 3:50 R esults for this PM EDT procedure are i n the results section. APTT STAT 07/12/2016 3:50 Results for this PM EDT procedure are i n the results section. THROMBIN TIME STAT 07/12/2016 3:50 Results for this PM EDT procedure are i n the results section. PROTHROMBIN TIME STAT 07/12/2016 3:50 Results for this PM EDT procedure are i n the results section. FIBRINOGEN STAT 07/12/2016 3:50 Results for this PM EDT procedure are i n the results section. CBC (WITH DIFF) STAT 07/12/2016 3:50 PM EDT BLOOD GAS 2 ARTERIAL Routine 07/12/2016 3:01 Resu lts for this PM EDT procedure are i n the results section. BLOOD GAS 2 ARTERIAL Routine 07/12/2016 2:43 Resu lts for this PM EDT procedure are i n the results section. @CABG,TWO VENOUS GRAFTS Routine 07/12/2016 2:34 & ARTERIAL GRAFT PM EDT BLOOD GAS 2 ARTERIAL Routine 07/12/2016 2:34 Resu lts for this PM EDT procedure are i n the results section. HEMOGLOBIN AND STAT 07/12/2016 2:30 Results fo r this HEMATOCRIT, BLOOD PM EDT procedure are in the results section. FIBRINOGEN STAT 07/12/2016 2:30 Results for this PM EDT procedure are i n the results section. PLATELET COUNT STAT 07/12/2016 2:30 Results fo r this PM EDT procedure are i n the results section. BLOOD GAS 2 ARTERIAL Routine 07/12/2016 2:08 Resu lts for this PM EDT procedure are i n the results section. BLOOD GAS 2 ARTERIAL Routine 07/12/2016 12:47 Res ults for this PM EDT procedure are i n the results section. @CABG, TWO VENOUS 07/12/2016 12:09 CAD GRAFTS & ARTERIAL GRAFT PM EDT (WRVU 7.93) ENDOSCOPIC HARVEST 07/12/2016 12:09 CAD VEIN(S) FOR CABG ([facility] PM EDT 0.31) @CABG, USING 2 CORONARY 07/12/2016 12:09 CAD ARTERIAL GRAFTS (WRVU PM EDT 39.88) PREPARE COAG FACTORS STAT 07/12/2016 10:45 Res ults for this (NON-HEMOPHILIA) AM EDT procedure a re in the results section. PREPARE RBC STAT 07/12/2016 10:45 Results for this AM EDT procedure are i n the results section. POCT GLUCOSE Routine 07/12/2016 7:41 Results for this AM EDT procedure are i n the results section. POCT GLUCOSE Routine 07/12/2016 4:34 Results for this AM EDT procedure are i n the results section. BMP W/FASTING GLUCOSE Routine 07/12/2016 4:34 Res ults for this AM EDT procedure are i n the results section. HEMOGRAM Routine 07/12/2016 4:34 Results for this AM EDT procedure are i n the results section. DIFFERENTIAL, AUTOMATED Routine 07/12/2016 4:34 R esults for this AM EDT procedure are i n the results section. APTT Routine 07/12/2016 4:34 Results for this AM EDT procedure are i n the results section. PROTHROMBIN TIME Routine 07/12/2016 4:34 Results for this AM EDT procedure are i n the results section. CBC (WITH DIFF) Routine 07/12/2016 4:34 AM EDT MAGNESIUM Routine 07/12/2016 4:34 Results for this AM EDT procedure are i n the results section. POCT GLUCOSE Routine 07/11/2016 11:38 Results for this PM EDT procedure are i n the results section. POCT GLUCOSE Routine 07/11/2016 8:00 Results for this PM EDT procedure are i n the results section. XR CHEST PA AND LATERAL Routine 07/11/2016 5:29 R esults for this PM EDT procedure are i n the results section. POCT GLUCOSE Routine 07/11/2016 4:10 Results for this PM EDT procedure are i n the results section. CT ANGIOGRAM PELVIS STAT 07/11/2016 3:21 Resul ts for this PM EDT procedure are i n the results section. ABORH RECHECK STATUS Routine 07/11/2016 2:44 Resu lts for this PM EDT procedure are i n the results section. ABO/RH TYPING Routine 07/11/2016 2:44 Results for this PM EDT procedure are i n the results section. ANTIBODY SCREEN Routine 07/11/2016 2:44 Results f or this PM EDT procedure are i n the results section. TYPE AND SCREEN Routine 07/11/2016 2:44 ([facility] [place]) PM EDT ARTERIAL DUPLEX LEG STAT 07/11/2016 12:31 Resu lts for this UNILA PM EDT procedure are i n the results section. POCT GLUCOSE Routine 07/11/2016 11:40 Results for this AM EDT procedure are i n the results section. ENDOSCOPIC HARVEST Routine 07/11/2016 10:16 VEIN(S) FOR CABG AM EDT @CABG,USING 2 CORONARY Routine 07/11/2016 10:16 ARTERIAL GRAFTS AM EDT POCT GLUCOSE Routine 07/11/2016 7:38 Results for this AM EDT procedure are i n the results section. HEMOGRAM Routine 07/11/2016 4:04 Results for this AM EDT procedure are i n the results section. DIFFERENTIAL, AUTOMATED Routine 07/11/2016 4:04 R esults for this AM EDT procedure are i n the results section. APTT STAT 07/11/2016 4:04 Results for this AM EDT procedure are i n the results section. CBC (WITH DIFF) Routine 07/11/2016 4:04 AM EDT BASIC METABOLIC PANEL Routine 07/11/2016 4:04 Res ults for this (NON-FASTING) AM EDT procedure are in the results section. POCT GLUCOSE Routine 07/11/2016 4:02 Results for this AM EDT procedure are i n the results section. POCT GLUCOSE Routine 07/11/2016 12:23 Results for this AM EDT procedure are i n the results section. APTT STAT 07/10/2016 8:35 Results for this PM EDT procedure are i n the results section. POCT GLUCOSE Routine 07/10/2016 7:47 Results for this PM EDT procedure are i n the results section. POCT GLUCOSE Routine 07/10/2016 4:20 Results for this PM EDT procedure are i n the results section. POCT GLUCOSE Routine 07/10/2016 12:24 Results for this PM EDT procedure are i n the results section. APTT STAT 07/10/2016 12:02 Results for this PM EDT procedure are i n the results section. POCT GLUCOSE Routine 07/10/2016 7:57 Results for this AM EDT procedure are i n the results section. HEMOGRAM Routine 07/10/2016 5:04 Results for this AM EDT procedure are i n the results section. DIFFERENTIAL, AUTOMATED Routine 07/10/2016 5:04 R esults for this AM EDT procedure are i n the results section. CBC (WITH DIFF) Routine 07/10/2016 5:04 AM EDT APTT STAT 07/10/2016 5:03 Results for this AM EDT procedure are i n the results section. POCT GLUCOSE Routine 07/10/2016 4:27 Results for this AM EDT procedure are i n the results section. POCT GLUCOSE Routine 07/09/2016 11:43 Results for this PM EDT procedure are i n the results section. POCT GLUCOSE Routine 07/09/2016 10:31 Results for this PM EDT procedure are i n the results section. POCT GLUCOSE Routine 07/09/2016 8:37 Results for this PM EDT procedure are i n the results section. CARDIAC ENZYMES Routine 07/09/2016 7:47 Results f or this ([facility]) PM EDT procedure are i n the results section. POTASSIUM Routine 07/09/2016 7:47 Results for this PM EDT procedure are i n the results section. POCT GLUCOSE Routine 07/09/2016 7:38 Results for this PM EDT procedure are i n the results section. POCT GLUCOSE Routine 07/09/2016 5:28 Results for this PM EDT procedure are i n the results section. POCT GLUCOSE Routine 07/09/2016 11:16 Results for this AM EDT procedure are i n the results section. ECHOCARDIOGRAM COMPLETE Routine 07/09/2016 9:46 Chest pain, R esults for this AM EDT unspecified type procedure a re in the results section. CARDIAC ENZYMES Routine 07/09/2016 9:40 Results f or this ([facility] [place]) AM EDT procedure are i n the results section. APTT STAT 07/09/2016 9:40 Results for this AM EDT procedure are i n the results section. POCT GLUCOSE Routine 07/09/2016 8:21 Results for this AM EDT procedure are i n the results section. POCT GLUCOSE Routine 07/09/2016 4:19 Results for this AM EDT procedure are i n the results section. POCT GLUCOSE Routine 07/09/2016 2:16 Results for this AM EDT procedure are i n the results section. HEMOGRAM Routine 07/09/2016 1:30 Results for this AM EDT procedure are i n the results section. DIFFERENTIAL, AUTOMATED Routine 07/09/2016 1:30 R esults for this AM EDT procedure are i n the results section. BLUE TUBE HOLD Routine 07/09/2016 1:30 Results fo r this AM EDT procedure are i n the results section. CARDIAC ENZYMES Routine 07/09/2016 1:30 Results f or this ([facility] [place]) AM EDT procedure are i n the results section. APTT Routine 07/09/2016 1:30 Results for this AM EDT procedure are i n the results section. LDL CHOLESTEROL, DIRECT Routine 07/09/2016 1:30 R esults for this AM EDT procedure are i n the results section. HEMOGLOBIN A1C Routine 07/09/2016 1:30 Results fo r this AM EDT procedure are i n the results section. LIPID PANEL (REFLEX Routine 07/09/2016 1:30 Resul ts for this DIRECT LDL) AM EDT procedure are i n the results section. BASIC METABOLIC PANEL Routine 07/09/2016 1:30 Res ults for this (NON-FASTING) AM EDT procedure are in the results section. POCT GLUCOSE Routine 07/09/2016 12:54 Results for this AM EDT procedure are i n the results section. POCT GLUCOSE Routine 07/08/2016 9:55 Results for this PM EDT procedure are i n the results section. POCT GLUCOSE Routine 07/08/2016 8:07 Results for this PM EDT procedure are i n the results section. EKG 12-LEAD STAT 07/08/2016 8:03 Chest pain, Results for this PM EDT unspecified type procedure a re in the results section. CARDIAC CATHETERIZATION STAT 07/08/2016 7:50 R esults for this PM EDT procedure are i n the results section. HEMOGRAM STAT 07/08/2016 5:40 Results for this PM EDT procedure are i n the results section. DIFFERENTIAL, AUTOMATED STAT 07/08/2016 5:40 R esults for this PM EDT procedure are i n the results section. CARDIAC ENZYMES STAT 07/08/2016 5:40 Results f or this ([facility] [place] [place]) PM EDT procedure are i n the results section. BETA HYDROXYBUTYRATE STAT 07/08/2016 5:40 Resu lts for this PM EDT procedure are i n the results section. APTT STAT 07/08/2016 5:40 Results for this PM EDT procedure are i n the results section. PROTHROMBIN TIME STAT 07/08/2016 5:40 Results for this PM EDT procedure are i n the results section. CBC (WITH DIFF) STAT 07/08/2016 5:40 PM EDT TSH STAT 07/08/2016 5:40 Results for this PM EDT procedure are i n the results section. HEPATIC FUNCTION PANEL STAT 07/08/2016 5:40 Re sults for this PM EDT procedure are i n the results section. BASIC METABOLIC PANEL STAT 07/08/2016 5:40 Res ults for this (NON-FASTING) PM EDT procedure are in the results section. EKG 12-LEAD STAT 07/08/2016 5:35 Results for this PM EDT procedure are i n the results section. FILM LIBRARY STORAGE Routine 07/08/2016 12:00 Pain Res ults for this ONLY DX CHEST AM EDT procedure are in the results section. documented [...] original. EXAMINATION: XR CHEST PA AND LATERAL ([employer]) CLINICAL HISTORY: s/p cabg TECHNIQUE: PA and lateral COMPARISON: 07/15/2016 FINDINGS: Heart and mediastinum are within normal limits. Stable postoperative findings in the mediastinum. Lungs are clear. Stable tiny bilateral pleural effusions. No pulmonary edema or pneumothorax. Aeratio n of lung bases is improved since prior study IMPRESSION Tiny residual bilateral pleural effusion s Valentino Pérez MD IMG DX ORDERABLES SCAN DOC: SERVICE DIRECTOR (07/17/2016 12:00 AM EDT) Narrative 07/17/2016 12:00 AM EDT This result has an attachment that is no t available. Ordered by an unspecified provider. Scanning Provider MEDIA MGR SCAN EXT ORDR/RSLT SCAN DOC: LAB (07/17/2016 12:00 AM EDT) Narrative 07/17/2016 12:00 AM EDT This result has an attachment that is no t available. Ordered by an unspecified provider. Scanning Provider MEDIA MGR SCAN EXT ORDR/RSLT POCT Glucose (07/16/2016 11:55 AM EDT) P athologist Signature POC Glucose 92 65 - 199 [facility] mg/dL [facility] Comment: Supplemental ranges: <140 mg/dL before meals <180 mg/dL all other times of the day Specimen Anatomical Collection Method Collection Time Receive d Time (Source) Location / / Volume Laterality Blood specimen 07/16/2016 11:55 7 (specimen) AM EDT 11:55 AM EDT Valentino Pérez MD POINT OF CARE TEST ORDERABLE S Performing Organization Address City/State/[place] [address] POCT Glucose (07/16/2016 7:34 AM EDT) P athologist Signature POC Glucose 160 65 - 199 [facility] mg/dL [facility] Comment: Supplemental ranges: <140 mg/dL before meals <180 mg/dL all other times of the day Specimen Anatomical Collection Method Collection Time Receive d Time (Source) Location / / Volume Laterality Blood specimen 07/16/2016 7:34 AM 017 7:34 (specimen) EDT AM EDT Valentino Pérez MD POINT OF CARE TEST ORDERABLE S Performing Organization Address City/[facility]/[place] [address] (ABNORMAL) Differential, Automated (07/16/2016 4:13 AM EDT) Patholo gist Method Time Signature Neutrophils % 77.7 % [facility] Neutr Abs (ANC) 9.70 (H) 1.70 - [facility] 6.10 [facility] x10(3)/[facility] L LABORATORY Lymphocytes % 15.1 % [facility] Lymphocytes Abs 1.9 0.9 - 3.2 [facility] x10(3)/[facility] LABORATORY Monocytes % 5.5 % [facility] Monocyte Abs 0.7 0.3 - 0.9 [facility] x10(3)/[facility] LABORATORY Eosinophils % 0.0 % [facility] Eosinophils Abs 0.0 0.0 - 0.4 [facility] x10(3)/[facility] LABORATORY Basophils % 0.1 % [facility] Basophils Abs 0.0 0.0 - 0.1 [facility] x10(3)/[facility] LABORATORY Immature Gran % 1.60 % [facility] Comment: Immature granulocytes(IG's)percentage an d absolute count will include metamyelocytes, myelocytes, and promyelo cytes. Blood smears from CBCs yielding IG's will be scanned manually for concor dance. If this scan disagrees with the automated IG or if promyelocytes are not ed, a manual differential will be performed. Madhuri Gran Abs 0.20 (H) 0.00 - 0.04 x10(3)/[facility] LABORATORY Specimen Anatomical Collection Method Collection Time Receive d Time (Source) Location / / Volume Laterality Blood specimen 07/16/2016 4:13 AM 017 4:30 (specimen) EDT AM EDT Resulting Agency Comment Spec In Lab Valentino Pérez MD HEMATOLOGY ORDERABLES Performing Organization Address City/State/[place] [address] (ABNORMAL) Hemogram (07/16/2016 4:13 AM EDT) Analysis Performed At Patho logist Time Signature WBC 12.5 (H) 4.0 - 9.5 [facility] x10(3)/[facility] LABORATORY RBC 3.28 (L) 4.58 - [facility] 5.54 [facility] x10(6)/[facility] LABORATORY Hemoglobin 9.9 (L) 13.7 - [facility] 16.5 gm/dL [facility] Hematocrit 29.9 (L) 40.5 - [facility] 48.5 % [facility] MCV 91.2 82.9 - [facility]1 [facility] LABORATORY MCH 30.2 27.5 - [facility] 32.1 pg [facility] MCHC 33.1 32.0 - [facility] 35.7 gm/dL [facility] Platelets 268 145 - 357 [facility] x10(3)/[facility] LABORATORY RDWSD 44.0 36.0 - [facility] 45.0 [facility] RDWCV 13.1 11.4 - [facility] 13.8 % [facility] MPV 10.8 7.6 - 12.9 [facility] LABORATORY nRBC % Auto 0.0 % [facility] nRBC Abs Auto 0.000 0.000 - [facility] 0.000 [facility] x10(3)/[facility] LABORATORY Specimen Anatomical Collection Method Collection Time Receive d Time (Source) Location / / Volume Laterality Blood specimen 07/16/2016 4:13 AM 017 4:30 (specimen) EDT AM EDT Resulting Agency Comment Spec In Lab Valentino Pérez MD HEMATOLOGY ORDERABLES Performing Organization Address City/State/[place] [address] (ABNORMAL) Basic Metabolic Panel (non-fasting) (07/16/2016 4:13 AM EDT) athologist Signature Glucose Lvl 191 65 - 199 [facility] mg/dL [facility] Comment: Diabetes: >=200 mg/dL plus symp toms BUN 27 (H) 10 - 20 mg/dL [facility] Creatinine 0.78 (L) 0.80 - 1.50 mg/dL [facility] Comment: Please note that the pediatric reference intervals supplied above were not validated at [facility]. Results from pediatri c patients should be interpreted in conjunction to the patient's age, height and muscle mass. Sodium 139 135 - 145 mmol/L [facility] Potassium 3.9 3.5 - 5.0 mmol/L [facility] Comment: Please note: ??Patients with WBC >100,00 0 may have falsely elevated Potassium levels. ??For accurate Potassium quantif ication in these patients send serum separator tube (gold top) for subsequent determinations. ??Contact the Clinical Chemistry Laboratory if there are any qu estions. Chloride 99 98 - 107 mmol/L [facility] CO2 23 22 - 31 mmol/L [facility] Anion Gap 17 (H) 5 - 15 mmol/L [facility] Calcium 8.7 8.5 - 10.5 mg/dL [facility] Estimated GFR >60 >=60 JW Moreira [facility]ORY Comment: This estimated GFR (eGFR) value was calc ulated using the MDRD equation which has been validated on patients between t he ages of 18 and 70. The MDRD should not be used to assess kidney function in patients < 18 years of age or in patients with extremes of body mass, or in patients with acute kidney failure. This value should be multiplied by 1.2 f or patients. For further information please copy and past e the following links into your internet browser. [email or web address] Specimen Anatomical Collection Method Collection Time Receive d Time (Source) Location / / Volume Laterality Blood specimen 07/16/2016 4:13 AM 017 4:30 (specimen) EDT AM EDT Resulting Agency Comment Spec In Lab Valentino Pérez MD CHEMISTRY ORDERABLES Performing Organization Address City/[facility]/ZIP Code Phon e Number [address] POCT Glucose (07/16/2016 3:58 AM EDT) P athologist Signature POC Glucose 186 65 - 199 [facility] Comment: Supplemental ranges: <140 mg/dL before meals <180 mg/dL all other times of the day Specimen Anatomical Collection Method Collection Time Receive d Time (Source) Location / / Volume Laterality Blood specimen 07/16/2016 3:58 AM 017 3:58 (specimen) EDT AM EDT Valentino Pérez MD POINT OF CARE TEST ORDERABLE S Performing Organization Address City/State/ZIP Code Phon e Number [address] POCT Glucose (07/15/2016 11:58 PM EDT) athologist Signature POC Glucose 122 65 - 199 [facility] Comment: Supplemental ranges: <140 mg/dL before meals <180 mg/dL all other times of the day Specimen Anatomical Collection Method Collection Time Receive d Time (Source) Location / / Volume Laterality Blood specimen 07/15/2016 11:58 7 (specimen) PM EDT 11:58 PM EDT Valentino Pérez MD POINT OF CARE TEST ORDERABLE S Performing Organization Address City/State/[place] [address] POCT Glucose (07/15/2016 9:13 PM EDT) athologist Signature POC Glucose 167 65 - 199 [facility] mg/dL [facility] Comment: Supplemental ranges: <140 mg/dL before meals <180 mg/dL all other times of the day Specimen Anatomical Collection Method Collection Time Receive d Time (Source) Location / / Volume Laterality Blood specimen 07/15/2016 9:13 PM 017 9:13 (specimen) EDT PM EDT Valentino Pérez MD POINT OF CARE TEST ORDERABLE S Performing Organization Address City/State/[place] [address] (ABNORMAL) POCT Glucose (07/15/2016 7:55 PM EDT) athologist Signature POC Glucose 200 (H) 65 - 199 [facility] mg/dL [facility] Comment: Supplemental ranges: <140 mg/dL before meals <180 mg/dL all other times of the day Specimen Anatomical Collection Method Collection Time Receive d Time (Source) Location / / Volume Laterality Blood specimen 07/15/2016 7:55 PM 017 7:55 (specimen) EDT PM EDT Valentino Pérez MD POINT OF CARE TEST ORDERABLE S Performing Organization Address City/State/[place] [address] POCT Glucose (07/15/2016 4:24 PM EDT) athologist Signature POC Glucose 159 65 - 199 [facility] mg/dL [facility] Comment: Supplemental ranges: <140 mg/dL before meals <180 mg/dL all other times of the day Specimen Anatomical Collection Method Collection Time Receive d Time (Source) Location / / Volume Laterality Blood specimen 07/15/2016 4:24 PM 017 4:24 (specimen) EDT PM EDT Valentino Pérez MD POINT OF CARE TEST ORDERABLE S Performing Organization Address City/State/ZIP Code Phon e Number [address] (ABNORMAL) POCT Glucose (07/15/2016 11:32 AM EDT) athologist Signature POC Glucose 235 (H) 65 - 199 [facility] mg[facility]dL [facility] Comment: Supplemental ranges: <140 mg/dL before meals <180 mg/dL all other times of the day Specimen Anatomical Collection Method Collection Time Receive d Time (Source) Location / / Volume Laterality Blood specimen 07/15/2016 11:32 7 (specimen) AM EDT 11:32 AM EDT Valentino Pérez MD POINT OF CARE TEST ORDERABLE S Performing Organization Address City/State/[place] [address] XR Chest PA & Lateral (Generic) (07/15/2016 11:03 AM EDT) Anatomical Region Laterality Modality Chest N/A Digital Radiography Specimen (Source) Anatomical Location Collection Method / Collectio n Time Received Time / Laterality Volume Impressions 07/15/2016 11:13 AM EDT 1. ??Increased lung expansion with improved aeration of the medial left lung base. 2. ??Residual small left pleural effusio n. I have personally reviewed the image(s) and the residents interpretation and agree with the findings, Ciera Fair at 07/15/2016 11:13 AM Narrative 07/15/2016 11:13 AM EDT EXAMINATION: XR CHEST PA AND LATERAL (GENERIC) CLINICAL HISTORY: POD3 CABG x4 TECHNIQUE: ?? Standing PA and lateral ch est radiographs COMPARISON: Chest radiograph 07/14/2016 FINDINGS: A right-sided central venous catheter sh eath has been removed. There are intact sternotomy wires and surgical clips over the left mediastinum. There is improved bilateral lung inflation with improved a eration of the medial left lung base. No new focal airspace opacity. No pneumotho rax. There is mild blunting of the left costophrenic angle consistent with a sma ll pleural effusion. No right-sided pleural effusion. No interval osseous ch anges. Procedure Note Ciera Mendez MD - 2016 EXAMINATION: XR CHEST PA AND LATERAL (GE NERIC) CLINICAL HISTORY: POD3 CABG x4 TECHNIQUE: Standing PA and lateral chest radiographs COMPARISON: Chest radiograph 07/14/2016 FINDINGS: A right-sided central venous catheter sh eath has been removed. There are intact sternotomy wires and surgical clips over the left mediastinum. There is improved bilateral lung inflation with improved a eration of the medial left lung base. No new focal airspace opacity. No pneumotho rax. There is mild blunting of the left costophrenic angle consistent with a sma ll pleural effusion. No right-sided pleural effusion. No interval osseous ch anges. IMPRESSION 1. Increased lung expansion with improve d aeration of the medial left lung base. 2. Residual small left pleural effusion. I have personally reviewed the image(s) and the residents interpretation and agree with the findings, Ciera Fair at 07/15/2016 11:13 AM Valentino Pérez MD IMG DX ORDERABLES POCT Glucose (07/15/2016 6:57 AM EDT) athologist Signature POC Glucose 178 65 - 199 [facility] mg/dL [facility] Comment: Supplemental ranges: <140 mg/dL before meals <180 mg/dL all other times of the day Specimen Anatomical Collection Method Collection Time Receive d Time (Source) Location / / Volume Laterality Blood specimen 07/15/2016 6:57 AM 017 6:57 (specimen) EDT AM EDT Valentino Pérez MD POINT OF CARE TEST ORDERABLE S Performing Organization Address City/State/[place] [address] (ABNORMAL) Differential, Automated (07/15/2016 6:45 AM EDT) [facility] gist Method Time Signature Neutrophils % 80.3 % [facility] Neutr Abs (ANC) 11.09 (H) 1.70 - [facility] 6.10 [facility] x10(3)/[facility] LABORATORY Lymphocytes % 11.9 % [facility] Lymphocytes Abs 1.6 0.9 - 3.2 [facility] x10(3)/[facility] LABORATORY Monocytes % 6.3 % [facility] Monocyte Abs 0.9 0.3 - 0.9 [facility] x10(3)/[facility] LABORATORY Eosinophils % 0.0 % [facility] Eosinophils Abs 0.0 0.0 - 0.4 [facility] x10(3)/[facility] LABORATORY Basophils % 0.1 % [facility] Basophils Abs 0.0 0.0 - 0.1 [facility] x10(3)/[facility] LABORATORY Immature Gran % 1.40 % [facility] Comment: Immature granulocytes(IG's)percentage an d absolute count will include metamyelocytes, myelocytes, and promyelo cytes. Blood smears from CBCs yielding IG's will be scanned manually for concor dance. If this scan disagrees with the automated IG or if promyelocytes are not ed, a manual differential will be performed. Madhuri Gran Abs 0.19 (H) 0.00 - 0.04 x10(3)/[facility] LABORATORY Specimen Anatomical Collection Method Collection Time Receive d Time (Source) Location / / Volume Laterality Blood specimen 07/15/2016 6:45 AM 017 6:51 (specimen) EDT AM EDT Resulting Agency Comment Spec In Lab Valentino Pérez MD HEMATOLOGY ORDERABLES Performing Organization Address City/State/[place] [address] (ABNORMAL) Hemogram (07/15/2016 6:45 AM EDT) Analysis Performed At Patho logist Time Signature WBC 13.8 (H) 4.0 - 9.5 [facility] x10(3)/[facility] LABORATORY RBC 3.44 (L) 4.58 - [facility] 5.54 [facility] x10(6)/[facility] LABORATORY Hemoglobin 10.1 (L) 13.7 - [facility] 16.5 gm/dL [facility] Hematocrit 31.3 (L) 40.5 - [facility]W OREILLY 48.5 % [facility] MCV 91.0 82.9 - JW OREILLY 93.1 [facility] LABORATORY MCH 29.4 27.5 - JW LACYCK 32.1 pg [facility] MCHC 32.3 32.0 - JW OREILLY 35.7 gm/dL [facility] Platelets 215 145 - 357 J[facility]REILL[facility] x10(3)/[facility] LABORATORY RDWSD 43.9 36.0 - JW OREILLY 45.0 [facility] LABORATORY RDWCV 13.2 11.4 - J[facility] OREILLY 13.8 % [facility] MPV 11.2 7.6 - 12.9 JW OREILLY [facility] LABORATORY nRBC % Auto 0.0 % [facility] nRBC Abs Auto 0.000 0.000 - [facility] 0.000 [facility] x10(3)/[facility] LABORATORY Specimen Anatomical Collection Method Collection Time Receive d Time (Source) Location / / Volume Laterality Blood specimen 07/15/2016 6:45 AM 017 6:51 (specimen) EDT AM EDT Resulting Agency Comment Spec In Lab Valentino Pérez MD HEMATOLOGY ORDERABLES Performing Organization Address City/State/ZIP Code [place] [address] (ABNORMAL) BMP w/fasting Glucose (07/15/2016 6:45 AM EDT) athologist Signature Glucose 175 (H) 65 - 99 J[facility] O[facility] Fasting mg/dL [facility] Comment: ?Fasting* Glucose Interpretive C [...] of Diabetes Mellitus, Position Statement from the [place] [employer]. ??Diabete s Care, Volume 33, Supplement 1, Apr 2009 BUN 18 10 - 20 mg/dL [facility] Comment: result rechecked-sb Creatinine 0.65 (L) 0.80 - 1.50 mg/dL [facility] Comment: Please note that the pediatric reference intervals supplied above were not validated at [facility]. Results from pediatri c patients should be interpreted in conjunction to the patient's age, height and muscle mass. Sodium 140 135 - 145 mmol/L [facility] Potassium 3.8 3.5 - 5.0 mmol/L [facility] Comment: Please note: ??Patients with WBC >100,00 0 may have falsely elevated Potassium levels. ??For accurate Potassium quantif ication in these patients send serum separator tube (gold top) for subsequent determinations. ??Contact the Clinical Chemistry Laboratory if there are any qu estions. Chloride 101 98 - 107 mmol/L [facility] CO2 23 22 - 31 mmol/L [facility] Anion Gap 16 (H) 5 - 15 mmol/L [facility] Calcium 8.8 8.5 - 10.5 mg/dL [facility] Estimated GFR >60 >=60 [facility] Comment: This estimated GFR (eGFR) value was calc ulated using the MDRD equation which has been validated on patients between t he ages of 18 and 70. The MDRD should not be used to assess kidney function in patients < 18 years of age or in patients with extremes of body mass, or in patients with acute kidney failure. This value should be multiplied by 1.2 f or patients. For further information please copy and past e the following links into your internet browser. [email or web address] [email or web address] Specimen Anatomical Collection Method Collection Time Receive d Time (Source) Location / / Volume Laterality Blood specimen 07/15/2016 6:45 AM 017 6:51 (specimen) EDT AM EDT Resulting Agency Comment Spec In Lab Valentino Pérez MD CHEMISTRY ORDERABLES Performing Organization Address City/[facility]/[place] [address] (ABNORMAL) POCT Glucose (07/15/2016 6:15 AM EDT) athologist Signature POC Glucose 217 (H) 65 - 199 [facility] mg/dL [facility] Comment: Supplemental ranges: <140 mg/dL before meals <180 mg/dL all other times of the day Specimen Anatomical Collection Method Collection Time Receive d Time (Source) Location / / Volume Laterality Blood specimen 07/15/2016 6:15 AM 017 6:15 (specimen) EDT AM EDT Valentino Pérez MD POINT OF CARE TEST ORDERABLE S Performing Organization Address City/[facility]/[place] [address] (ABNORMAL) POCT Glucose (07/15/2016 4:56 AM EDT) athologist Signature POC Glucose 214 (H) 65 - 199 [facility] mg/dL [facility] Comment: Supplemental ranges: <140 mg/dL before meals <180 mg/dL all other times of the day Specimen Anatomical Collection Method Collection Time Receive d Time (Source) Location / / Volume Laterality Blood specimen 07/15/2016 4:56 AM 017 4:56 (specimen) EDT AM EDT Valentino Pérez MD POINT OF CARE TEST ORDERABLE S Performing Organization Address City/State/[place] [address] (ABNORMAL) POCT Glucose (07/15/2016 4:00 AM EDT) athologist Signature POC Glucose 216 (H) 65 - 199 [facility] mg/dL [facility] Comment: Supplemental ranges: <140 mg/dL before meals <180 mg/dL all other times of the day Specimen Anatomical Collection Method Collection Time Receive d Time (Source) Location / / Volume Laterality Blood specimen 07/15/2016 4:00 AM 017 4:00 (specimen) EDT AM EDT Valentino Pérez MD POINT OF CARE TEST ORDERABLE S Performing Organization Address City/State/[place] [address] (ABNORMAL) POCT Glucose (07/15/2016 3:00 AM EDT) P athologist Signature POC Glucose 213 (H) 65 - 199 [facility] mg/dL [facility] Comment: Supplemental ranges: <140 mg/dL before meals <180 mg/dL all other times of the day Specimen Anatomical Collection Method Collection Time Receive d Time (Source) Location / / Volume Laterality Blood specimen 07/15/2016 3:00 AM 017 3:00 (specimen) EDT AM EDT Valentino Pérez MD POINT OF CARE TEST ORDERABLE S Performing Organization Address City/[facility]/[place] [address] (ABNORMAL) POCT Glucose (07/15/2016 2:01 AM EDT) P athologist Signature POC Glucose 232 (H) 65 - 199 [facility] mg/dL [facility] Comment: Supplemental ranges: <140 mg/dL before meals <180 mg/dL all other times of the day Specimen Anatomical Collection Method Collection Time Receive d Time (Source) Location / / Volume Laterality Blood specimen 07/15/2016 2:01 AM 017 2:01 (specimen) EDT AM EDT Valentino Pérez MD POINT OF CARE TEST ORDERABLE S Performing Organization Address City/State/[place] [address] POCT Glucose (07/15/2016 1:03 AM EDT) P athologist Signature POC Glucose 192 65 - 199 [facility] mg/dL [facility] Comment: Supplemental ranges: <140 mg/dL before meals <180 mg/dL all other times of the day Specimen Anatomical Collection Method Collection Time Receive d Time (Source) Location / / Volume Laterality Blood specimen 07/15/2016 1:03 AM 017 1:03 (specimen) EDT AM EDT Valentino Pérez MD POINT OF CARE TEST ORDERABLE S Performing Organization Address City/[facility]/ZIP Code Phon e Number [address] POCT Glucose (07/14/2016 11:56 PM EDT) athologist Signature POC Glucose 132 65 - 199 [facility] mg/dL [facility] Comment: Supplemental ranges: <140 mg/dL before meals <180 mg/dL all other times of the day Specimen Anatomical Collection Method Collection Time Receive d Time (Source) Location / / Volume Laterality Blood specimen 07/14/2016 11:56 7 (specimen) PM EDT 11:56 PM EDT Valentino Pérez MD POINT OF CARE TEST ORDERABLE S Performing Organization Address City/[facility]/[place] [address] Potassium (07/14/2016 11:41 PM EDT) athologist Signature Potassium 4.0 3.5 - 5.0 JW AFIA mmol/L [facility] Comment: Please note: ??Patients with WBC >100,00 0 may have falsely elevated Potassium levels. ??For accurate Potassium quantif ication in these patients send serum separator tube (gold top) for subsequent determinations. ??Contact the Clinical Chemistry Laboratory if there are any qu estions. Specimen Anatomical Collection Method Collection Time Receive d Time (Source) Location / / Volume Laterality Blood specimen 07/14/2016 11:41 7 (specimen) PM EDT 11:49 PM EDT Resulting Agency Comment Spec In Lab Valentino Pérez MD CHEMISTRY ORDERABLES Performing Organization Address City/[facility]/ZIP [facility] Phon e Number [address] POCT Glucose (07/14/2016 11:01 PM EDT) athologist Signature POC Glucose 120 65 - 199 JW AFIA mg/dL [facility] Comment: Supplemental ranges: <140 mg/dL before meals <180 mg/dL all other times of the day Specimen Anatomical Collection Method Collection Time Receive d Time (Source) Location / / Volume Laterality Blood specimen 07/14/2016 11:01 7 (specimen) PM EDT 11:01 PM EDT Valentino Pérez MD POINT OF CARE TEST ORDERABLE S Performing Organization Address City/State/ZIP Code Phon e Number [address] POCT Glucose (07/14/2016 10:30 PM EDT) athologist Signature POC Glucose 107 65 - 199 JW AFIA mg/dL [facility] Comment: Supplemental ranges: <140 mg/dL before meals <180 mg/dL all other times of the day Specimen Anatomical Collection Method Collection Time Receive d Time (Source) Location / / Volume Laterality Blood specimen 07/14/2016 10:30 7 (specimen) PM EDT 10:30 PM EDT Valentino Pérez MD POINT OF CARE TEST ORDERABLE S Performing Organization Address City/State/ZIP Code Phon e Number [address] POCT Glucose (07/14/2016 10:01 PM EDT) athologist Signature POC Glucose 132 65 - 199 JW AFIA mg/dL [facility] Comment: Supplemental ranges: <140 mg/dL before meals <180 mg/dL all other times of the day Specimen Anatomical Collection Method Collection Time Receive d Time (Source) Location / / Volume Laterality Blood specimen 07/14/2016 10:01 7 (specimen) PM EDT 10:01 PM EDT Valentino Pérez MD POINT OF CARE TEST ORDERABLE S Performing Organization Address City/State/ZIP Code Phon e Number [address] POCT Glucose (07/14/2016 8:59 PM EDT) athologist Signature POC Glucose 199 65 - 199 JW AFIA mg/dL [facility] Comment: Supplemental ranges: <140 mg/dL before meals <180 mg/dL all other times of the day Specimen Anatomical Collection Method Collection Time Receive d Time (Source) Location / / Volume Laterality Blood specimen 07/14/2016 8:59 PM 017 8:59 (specimen) EDT PM EDT Valentino Pérez MD POINT OF CARE TEST ORDERABLE S Performing Organization Address City/State/ZIP Code Phon e Number [address] POCT Glucose (07/14/2016 8:10 PM EDT) athologist Signature POC Glucose 192 65 - 199 JW AFIA mg/dL [facility] Comment: Supplemental ranges: <140 mg/dL before meals <180 mg/dL all other times of the day Specimen Anatomical Collection Method Collection Time Receive d Time (Source) Location / / Volume Laterality Blood specimen 07/14/2016 8:10 PM 017 8:10 (specimen) EDT PM EDT Valentino Pérez MD POINT OF CARE TEST ORDERABLE S Performing Organization Address City/State/ZIP Code Phon e Number [address] POCT Glucose (07/14/2016 6:54 PM EDT) athologist Signature POC Glucose 154 65 - 199 JW AFIA mg/dL [facility] Comment: Supplemental ranges: <140 mg/dL before meals <180 mg/dL all other times of the day Specimen Anatomical Collection Method Collection Time Receive d Time (Source) Location / / Volume Laterality Blood specimen 07/14/2016 6:54 PM 017 6:54 (specimen) EDT PM EDT Valentino Pérez MD POINT OF CARE TEST ORDERABLE S Performing Organization Address City/State/ZIP Code Phon e Number [address] POCT Glucose (07/14/2016 5:18 PM EDT) athologist Signature POC Glucose 187 65 - 199 JW AFIA mg/dL [facility] Comment: Supplemental ranges: <140 mg/dL before meals <180 mg/dL all other times of the day Specimen Anatomical Collection Method Collection Time Receive d Time (Source) Location / / Volume Laterality Blood specimen 07/14/2016 5:18 PM 017 5:18 (specimen) EDT PM EDT Valentino Pérez MD POINT OF CARE TEST ORDERABLE S Performing Organization Address City/State/[place] [address] (ABNORMAL) POCT Glucose (07/14/2016 3:44 PM EDT) athologist Signature POC Glucose 275 (H) 65 - 199 JW AFIA mg/dL [facility] Comment: Supplemental ranges: <140 mg/dL before meals <180 mg/dL all other times of the day Specimen Anatomical Collection Method Collection Time Receive d Time (Source) Location / / Volume Laterality Blood specimen 07/14/2016 3:44 PM 017 3:44 (specimen) EDT PM EDT Valentino Pérez MD POINT OF CARE TEST ORDERABLE S Performing Organization Address City/State/[place] [address] (ABNORMAL) POCT Glucose (07/14/2016 2:45 PM EDT) athologist Signature POC Glucose 249 (H) 65 - 199 JW AFIA mg/dL [facility] Comment: Supplemental ranges: <140 mg/dL before meals <180 mg/dL all other times of the day Specimen Anatomical Collection Method Collection Time Receive d Time (Source) Location / / Volume Laterality Blood specimen 07/14/2016 2:45 PM 017 2:45 (specimen) EDT PM EDT Valentino Pérez MD POINT OF CARE TEST ORDERABLE S Performing Organization Address City/State/[place] [address] (ABNORMAL) POCT Glucose (07/14/2016 1:48 PM EDT) athologist Signature POC Glucose 206 (H) 65 - 199 JW AFIA mg/dL [facility] Comment: Supplemental ranges: <140 mg/dL before meals <180 mg/dL all other times of the day Specimen Anatomical Collection Method Collection Time Receive d Time (Source) Location / / Volume Laterality Blood specimen 07/14/2016 1:48 PM 017 1:48 (specimen) EDT PM EDT Valentino Pérez MD POINT OF CARE TEST ORDERABLE S Performing Organization Address City/State/[place] [address] (ABNORMAL) POCT Glucose (07/14/2016 11:59 AM EDT) athologist Signature POC Glucose 211 (H) 65 - 199 JW AFIA mg/dL [facility] Comment: Supplemental ranges: <140 mg/dL before meals <180 mg/dL all other times of the day Specimen Anatomical Collection Method Collection Time Receive d Time (Source) Location / / Volume Laterality Blood specimen 07/14/2016 11:59 7 (specimen) AM EDT 11:59 AM EDT Valentino Pérez MD POINT OF CARE TEST ORDERABLE S Performing Organization Address City/[facility]/[place] [address] (ABNORMAL) POCT Glucose (07/14/2016 10:43 AM EDT) athologist Signature POC Glucose 204 (H) 65 - 199 JW AFIA mg/dL [facility] Comment: Supplemental ranges: <140 mg/dL before meals <180 mg/dL all other times of the day Specimen Anatomical Collection Method Collection Time Receive d Time (Source) Location / / Volume Laterality Blood specimen 07/14/2016 10:43 7 (specimen) AM EDT 10:43 AM EDT Valentino Pérez MD POINT OF CARE TEST ORDERABLE S Performing Organization Address City/State/[place] [address] POCT Glucose (07/14/2016 9:51 AM EDT) athologist Signature POC Glucose 185 65 - 199 JW AFIA mg/dL [facility] Comment: Supplemental ranges: <140 mg/dL before meals <180 mg/dL all other times of the day Specimen Anatomical Collection Method Collection Time Receive d Time (Source) Location / / Volume Laterality Blood specimen 07/14/2016 9:51 AM 017 9:51 (specimen) EDT AM EDT Valentino Pérez MD POINT OF CARE TEST ORDERABLE S Performing Organization Address City/State/[place] [address] POCT Glucose (07/14/2016 8:16 AM EDT) athologist Signature POC Glucose 177 65 - 199 [facility] Comment: Supplemental ranges: <140 mg/dL before meals <180 mg/dL all other times of the day Specimen Anatomical Collection Method Collection Time Receive d Time (Source) Location / / Volume Laterality Blood specimen 07/14/2016 8:16 AM 017 8:16 (specimen) EDT AM EDT Valentino Pérez MD POINT OF CARE TEST ORDERABLE S Performing Organization Address City/[facility]/[place] [address] POCT Glucose (07/14/2016 7:36 AM EDT) athologist Signature POC Glucose 112 65 - 199 [facility] Comment: Supplemental ranges: <140 mg/dL before meals <180 mg/dL all other times of the day Specimen Anatomical Collection Method Collection Time Receive d Time (Source) Location / / Volume Laterality Blood specimen 07/14/2016 7:36 AM 017 7:36 (specimen) EDT AM EDT Valentino Pérez MD POINT OF CARE TEST ORDERABLE S Performing Organization Address City/[facility]/[place] [address] (ABNORMAL) BLOOD GAS 2 ARTERIAL (07/14/2016 7:36 AM EDT) Analysis Performed At Patho logist Time Signature pH Art 7.50 (H) 7.35 - [facility] 7.45 [facility] pCO2 Art 35 35 - 45 [facility] LABORATORY pO2 Art 94 85 - 104 [facility] LABORATORY HCO3 Art 26.9 (H) 20.0 - [facility] 26.0 [facility] mmol/L [facility] LABORATORY BE Art 3.8 (H) -3.0 - 3.0 [facility] mmol/L [facility] Hgb Blood Gas 10.1 (L) 13.7 - [facility] 16.5 gm/dL [facility] O2HB Art 96.0 94.0 - [facility] 97.0 % [facility] COHB Art 0.3 % [facility] Comment: Nonsmokers: 0.5-1.5% COHB Smokers: Variable, but usually less than 10% Toxic: 20-30% COHB Lethal: Greater than 60% COHB METHB Art 0.8 <=1.5 % [facility] Na Whole Blood 134 (L) 135 - 145 mmol/L [facility] K Whole Blood 3.7 3.5 - 5.0 mmol/L [facility] Comment: Please note: Patients with WBC >100,000 may have falsely elevated Potassium levels. Contact the Clinical Chemistry L aboratory if there are any questions. ICa Whole Blood 1.10 (L) 1.15 - 1.33 mmol/L [facility] Comment: Note: ??Total bilirubin higher than 20 m g/dL may lead to falsely low ionized calcium. CL Whole Blood 104 98 - 107 mmol/L [facility] Gluc Whole Bld 175 65 - 199 mg/dL [facility] Comment: Diabetes: >=200 mg/dL plus symp toms. Lactate WB 1.7 0.5 - 2.2 mmol/L [facility] FIO2 Art 100 % [facility] PF Ratio Art 94 [facility] Specimen Anatomical Collection Method Collection Time Receive d Time (Source) Location / / Volume Laterality Blood specimen 07/14/2016 7:36 AM 017 7:36 (specimen) EDT AM EDT Valentino Pérez MD CHEMISTRY ORDERABLES Performing Organization Address City/State/ZIP Code Phon e Number [place] [id number] XR Chest PA or AP 1 view (07/14/2016 7:16 AM EDT) Anatomical Region Laterality Modality Chest N/A Digital Radiography Specimen (Source) Anatomical Location Collection Method / Collectio n Time Received Time / Laterality Volume Impressions 07/14/2016 7:38 AM EDT Improved aeration of the lungs with persistent bibasilar atelectasis, and trace pleural effusion. I have personally reviewed the image(s) and the residents interpretation and agree with the findings, Ronny Solis at 07/14/2016 7:38 AM Narrative 07/14/2016 7:38 AM EDT EXAMINATION: XR CHEST PA OR AP 1 VIEW CLINICAL HISTORY: worsening oxygenation POD2 CABG TECHNIQUE: AP view of the chest COMPARISON: Chest radiograph dated 2016 FINDINGS: Redemonstrated right internal jugular ce ntral venous catheter, median sternotomy wires and mediastinal surgical clips. Slightly improved aeration of the lungs bilaterally. Persistent streaky bibasilar opacities and left retrocardia c opacity likely represent atelectasis. Interval decrease in size of now trace l eft pleural effusion. Trace RIGHT pleural effusion. No pneumothorax seen. The cardiomediastinal silhouette appears unchanged. Procedure Note Ronny Solis MD - 07/14/2016 EXAMINATION: XR CHEST PA OR AP 1 VIEW CLINICAL HISTORY: worsening oxygenation POD2 CABG TECHNIQUE: AP view of the chest COMPARISON: Chest radiograph dated 2016 FINDINGS: Redemonstrated right internal jugular ce ntral venous catheter, median sternotomy wires and mediastinal surgical clips. Slightly improved aeration of the lungs bilaterally. Persistent streaky bibasilar opacities and left retrocardia c opacity likely represent atelectasis. Interval decrease in size of now trace l eft pleural effusion. Trace RIGHT pleural effusion. No pneumothorax seen. The cardiomediastinal silhouette appears unchanged. IMPRESSION Improved aeration of the lungs with pers istent bibasilar atelectasis, and trace pleural effusion. I have personally reviewed the image(s) and the residents interpretation and agree with the findings, Ronny Solis at 07/14/2016 7:38 AM Valentino Pérez MD IMG DX ORDERABLES (ABNORMAL) Differential, Automated (07/14/2016 6:45 AM EDT) [facility] Method Time Signature Neutrophils % 80.1 % [facility] Neutr Abs (ANC) 9.05 (H) 1.70 - [facility] 6.10 [facility] x10(3)/[facility] LABORATORY Lymphocytes % 10.9 % [facility] Lymphocytes Abs 1.2 0.9 - 3.2 [facility] x10(3)/[facility] LABORATORY Monocytes % 8.4 % [facility] Monocyte Abs 1.0 (H) 0.3 - 0.9 [facility] x10(3)/[facility] LABORATORY Eosinophils % 0.0 % [facility] Eosinophils Abs 0.0 0.0 - 0.4 [facility] x10(3)/[facility] LABORATORY Basophils % 0.1 % [facility] Basophils Abs 0.0 0.0 - 0.1 [facility] x10(3)/[facility] LABORATORY Immature Gran % 0.50 % [facility] Comment: Immature granulocytes(IG's)percentage an d absolute count will include metamyelocytes, myelocytes, and promyelo cytes. Blood smears from CBCs yielding IG's will be scanned manually for concor dance. If this scan disagrees with the automated IG or if promyelocytes are not ed, a manual differential will be performed. Madhuri Gran Abs 0.06 (H) 0.00 - 0.04 x10(3)/[facility] LABORATORY Specimen Anatomical Collection Method Collection Time Receive d Time (Source) Location / / Volume Laterality Blood specimen 07/14/2016 6:45 AM 017 6:58 (specimen) EDT AM EDT Resulting Agency Comment Spec In Lab Valentino Pérez MD HEMATOLOGY ORDERABLES Performing Organization Address City/State/[place] [address] (ABNORMAL) Hemogram (07/14/2016 6:45 AM EDT) Analysis Performed At Patho logist Time Signature WBC 11.3 (H) 4.0 - 9.5 [facility] x10(3)/[facility] LABORATORY RBC 3.04 (L) 4.58 - [facility] 5.54 [facility] x10(6)/[facility] LABORATORY Hemoglobin 9.2 (L) 13.7 - [facility] 16.5 gm/dL [facility] Hematocrit 27.2 (L) 40.5 - J[facility] 48.5 % [facility] MCV 89.5 82.9 - [facility] 93.1 [facility] LABORATORY MCH 30.3 27.5 - [facility] 32.1 pg [facility] MCHC 33.8 32.0 - [facility] 35.7 gm/dL [facility] Platelets 148 145 - 357 [facility] x10(3)/[facility] LABORATORY RDWSD 43.4 36.0 - [facility] 45.0 [facility] LABORATORY RDWCV 13.2 11.4 - [facility] 13.8 % [facility] LABORATORY MPV 11.6 7.6 - 12.9 [facility] LABORATORY nRBC % Auto 0.0 % [facility] nRBC Abs Auto 0.000 0.000 - [facility] 0.000 [facility] x10(3)/[facility] LABORATORY Specimen Anatomical Collection Method Collection Time Receive d Time (Source) Location / / Volume Laterality Blood specimen 07/14/2016 6:45 AM 017 6:58 (specimen) EDT AM EDT Resulting Agency Comment Spec In Lab Valentino Pérez MD HEMATOLOGY ORDERABLES Performing Organization Address City/State/[place] [address] (ABNORMAL) Basic Metabolic Panel (non-fasting) (07/14/2016 6:45 AM EDT) athologist Signature Glucose Lvl 192 65 - 199 [facility] mg/dL [facility] Comment: Diabetes: >=200 mg/dL plus symp toms BUN 9 (L) 10 - 20 mg/dL [facility] Creatinine 0.62 (L) 0.80 - 1.50 mg/dL [facility] Comment: Please note that the pediatric reference intervals supplied above were not validated at [facility]. Results from pediatri c patients should be interpreted in conjunction to the patient's age, height and muscle mass. Sodium 137 135 - 145 mmol/L [facility] Potassium 3.7 3.5 - 5.0 mmol/L [facility] Comment: Please note: ??Patients with WBC >100,00 0 may have falsely elevated Potassium levels. ??For accurate Potassium quantif ication in these patients send serum separator tube (gold top) for subsequent determinations. ??Contact the Clinical Chemistry Laboratory if there are any qu estions. Chloride 99 98 - 107 mmol/L [facility] CO2 24 22 - 31 mmol/L [facility] Anion Gap 14 5 - 15 mmol/L [facility] Calcium 8.5 8.5 - 10.5 mg/dL [facility] Estimated GFR >60 >=60 [facility] Comment: This estimated GFR (eGFR) value was calc ulated using the MDRD equation which has been validated on patients between t he ages of 18 and 70. The MDRD should not be used to assess kidney function in patients < 18 years of age or in patients with extremes of body mass, or in patients with acute kidney failure. This value should be multiplied by 1.2 f or patients. For further information please copy and past e the following links into your internet browser. [email or web address] [email or web address] Specimen Anatomical Collection Method Collection Time Receive d Time (Source) Location / / Volume Laterality Blood specimen 07/14/2016 6:45 AM 017 6:58 (specimen) EDT AM EDT Resulting Agency Comment Spec In Lab Valentino Pérez MD CHEMISTRY ORDERABLES Performing Organization Address City/State/[place] [address] (ABNORMAL) POCT Glucose (07/14/2016 6:23 AM EDT) athologist Signature POC Glucose 204 (H) 65 - 199 [facility] mg/dL [facility] Comment: Supplemental ranges: <140 mg/dL before meals <180 mg/dL all other times of the day Specimen Anatomical Collection Method Collection Time Receive d Time (Source) Location / / Volume Laterality Blood specimen 07/14/2016 6:23 AM 017 6:23 (specimen) EDT AM EDT Valentino Pérez MD POINT OF CARE TEST ORDERABLE S Performing Organization Address City/State/[place] [address] (ABNORMAL) POCT Glucose (07/14/2016 5:45 AM EDT) athologist Signature POC Glucose 227 (H) 65 - 199 [facility] AF[facility] mg/dL [facility] Comment: Supplemental ranges: <140 mg/dL before meals <180 mg/dL all other times of the day Specimen Anatomical Collection Method Collection Time Receive d Time (Source) Location / / Volume Laterality Blood specimen 07/14/2016 5:45 AM 017 5:45 (specimen) EDT AM EDT Valentino Pérez MD POINT OF CARE TEST ORDERABLE S Performing Organization Address City/State/[place] [address] POCT Glucose (07/14/2016 2:32 AM EDT) athologist Signature POC Glucose 191 65 - 199 J[facility] mg/dL [facility] Comment: Supplemental ranges: <140 mg/dL before meals <180 mg/dL all other times of the day Specimen Anatomical Collection Method Collection Time Receive d Time (Source) Location / / Volume Laterality Blood specimen 07/14/2016 2:32 AM 017 2:32 (specimen) EDT AM EDT Valentino Pérez MD POINT OF CARE TEST ORDERABLE S Performing Organization Address City/State/[place] [address] POCT Glucose (07/14/2016 1:22 AM EDT) athologist Signature POC Glucose 167 65 - 199 [facility] Comment: Supplemental ranges: <140 mg/dL before meals <180 mg/dL all other times of the day Specimen Anatomical Collection Method Collection Time Receive d Time (Source) Location / / Volume Laterality Blood specimen 07/14/2016 1:22 AM 017 1:22 (specimen) EDT AM EDT Valentino Pérez MD POINT OF CARE TEST ORDERABLE S Performing Organization Address City/State/ZIP Code Phon e Number [address] POCT Glucose (07/14/2016 12:21 AM EDT) athologist Signature POC Glucose 172 65 - 199 [facility] mg/dL [facility] Comment: Supplemental ranges: <140 mg/dL before meals <180 mg/dL all other times of the day Specimen Anatomical Collection Method Collection Time Receive d Time (Source) Location / / Volume Laterality Blood specimen 07/14/2016 12:21 7 (specimen) AM EDT 12:21 AM EDT Valentino Pérez MD POINT OF CARE TEST ORDERABLE S Performing Organization Address City/[facility]/ZIP Code Phon e Number [address] (ABNORMAL) BLOOD GAS 2 ARTERIAL (07/14/2016 12:01 AM EDT) Analysis Performed At Patho logist Time Signature pH Art 7.51 (H) 7.35 - [facility] 7.45 [facility] LABORATORY pCO2 Art 33 (L) 35 - 45 [facility] LABORATORY pO2 Art 70 (L) 85 - 104 [facility] LABORATORY HCO3 Art 25.6 20.0 - [facility] 26.0 [facility] mmol/L [facility] LABORATORY BE Art 2.6 -3.0 - 3.0 [facility] mmol/L [facility] LABORATORY Hgb Blood Gas 11.2 (L) 13.7 - [facility] 16.5 gm/dL [facility] O2HB Art 93.7 (L) 94.0 - [facility] 97.0 % [facility] COHB Art 0.3 % [facility] Comment: Nonsmokers: 0.5-1.5% COHB Smokers: Variable, but usually less than 10% Toxic: 20-30% COHB Lethal: Greater than 60% COHB METHB Art 0.6 <=1.5 % [facility] Na Whole Blood 133 (L) 135 - 145 mmol/L [facility]OR[facility] K Whole Blood 3.6 3.5 - 5.0 mmol/L [facility] Comment: Please note: Patients with WBC >100,000 may have falsely elevated Potassium levels. Contact the Clinical Chemistry L aboratory if there are any questions. ICa Whole Blood 1.08 (L) 1.15 - 1.33 mmol/L [facility] Comment: Note: ??Total bilirubin higher than 20 m g/dL may lead to falsely low ionized calcium. CL Whole Blood 106 98 - 107 mmol/L [facility] Gluc Whole Bld 165 65 - 199 mg/dL [facility] Comment: Diabetes: >=200 mg/dL plus symp toms. Lactate WB 1.1 0.5 - 2.2 mmol/L [facility] FIO2 Art 100 % [facility] PF Ratio Art 70 [facility] Specimen Anatomical Collection Method Collection Time Receive d Time (Source) Location / / Volume Laterality Blood specimen 07/14/2016 12:01 7 (specimen) AM EDT 12:01 AM EDT Valentino Pérez MD CHEMISTRY ORDERABLES Performing Organization Address City/State/[place] [address] POCT Glucose (07/13/2016 11:14 PM EDT) athologist Signature POC Glucose 176 65 - 199 [facility] mg/dL [facility] Comment: Supplemental ranges: <140 mg/dL before meals <180 mg/dL all other times of the day Specimen Anatomical Collection Method Collection Time Receive d Time (Source) Location / / Volume Laterality Blood specimen 07/13/2016 11:14 7 (specimen) PM EDT 11:14 PM EDT Valentino Pérez MD POINT OF CARE TEST ORDERABLE S Performing Organization Address City/State/[place] [address] (ABNORMAL) BLOOD GAS 2 ARTERIAL (07/13/2016 9:58 PM EDT) Analysis Performed At Patho logist Time Signature pH Art 7.48 (H) 7.35 - [facility] 7.45 [facility] pCO2 Art 32 (L) 35 - 45 [facility] mmHg [facility] pO2 Art 83 (L) 85 - 104 [facility] LABORATORY HCO3 Art 23.0 20.0 - [facility] 26.0 [facility] mmol/L [facility] BE Art -0.6 -3.0 - 3.0 [facility] mmol/L [facility] Hgb Blood Gas 10.1 (L) 13.7 - [facility] 16.5 gm/dL [facility] O2HB Art 95.2 94.0 - [facility] 97.0 % [facility] COHB Art 0.1 % [facility] Comment: Nonsmokers: 0.5-1.5% COHB Smokers: Variable, but usually less than 10% Toxic: 20-30% COHB Lethal: Greater than 60% COHB METHB Art 0.7 <=1.5 % [facility] Na Whole Blood 134 (L) 135 - 145 mmol/L [facility] K Whole Blood 3.4 (L) 3.5 - 5.0 mmol/L [facility] Comment: Please note: Patients with WBC >100,000 may have falsely elevated Potassium levels. Contact the Clinical Chemistry L aboratory if there are any questions. ICa Whole Blood 1.07 (L) 1.15 - 1.33 mmol/L [facility] Comment: Note: ??Total bilirubin higher than 20 m g/dL may lead to falsely low ionized calcium. CL Whole Blood 107 98 - 107 mmol/L [facility] Gluc Whole Bld 154 65 - 199 mg/dL [facility] Comment: Diabetes: >=200 mg/dL plus symp toms. Lactate WB 0.8 0.5 - 2.2 mmol/L [facility] FIO2 Art 100 % [facility] PF Ratio Art 83 [facility] Specimen Anatomical Collection Method Collection Time Receive d Time (Source) Location / / Volume Laterality Blood specimen 07/13/2016 9:58 PM 017 9:58 (specimen) EDT PM EDT Valentino Pérez MD CHEMISTRY ORDERABLES Performing Organization Address City/[facility]/ZIP Code Phon e Number [address] POCT Glucose (07/13/2016 9:04 PM EDT) athologist Signature POC Glucose 164 65 - 199 [facility] mg/dL [facility] Comment: Supplemental ranges: <140 mg/dL before meals <180 mg/dL all other times of the day Specimen Anatomical Collection Method Collection Time Receive d Time (Source) Location / / Volume Laterality Blood specimen 07/13/2016 9:04 PM 017 9:04 (specimen) EDT PM EDT Valentino Pérez MD POINT OF CARE TEST ORDERABLE S Performing Organization Address City/[facility]/[place] [address] (ABNORMAL) BLOOD GAS 2 ARTERIAL (07/13/2016 8:43 PM EDT) athologist Signature pH Art 7.50 (H) 7.35 - [facility] 7.45 [facility] pCO2 Art 33 (L) 35 - 45 [facility] mmHg [facility] pO2 Art 47 85 - 104 [facility] (Critical) [facility]ORATORY Comment: Noted by instrumentation specialist. HCO3 Art 24.9 20.0 - 26.0 mmol/L [facility] BE Art 1.6 -3.0 - 3.0 mmol/L [facility] Hgb Blood Gas 10.6 (L) 13.7 - 16.5 gm/dL [facility] O2HB Art 84.8 (L) 94.0 - 97.0 % [facility] COHB Art 0.4 % [facility] Comment: Nonsmokers: 0.5-1.5% COHB Smokers: Variable, but usually less than 10% Toxic: 20-30% COHB Lethal: Greater than 60% COHB METHB Art 0.5 <=1.5 % [facility] Na Whole Blood 134 (L) 135 - 145 mmol/L [facility] K Whole Blood 3.5 3.5 - 5.0 mmol/L [facility] Comment: Please note: Patients with WBC >100,000 may have falsely elevated Potassium levels. Contact the Clinical Chemistry L aboratory if there are any questions. ICa Whole Blood 1.09 (L) 1.15 - 1.33 mmol/L [facility] Comment: Note: ??Total bilirubin higher than 20 m g/dL may lead to falsely low ionized calcium. CL Whole Blood 105 98 - 107 mmol/L [facility] Gluc Whole Bld 167 65 - 199 mg/dL [facility] Comment: Diabetes: >=200 mg/dL plus symp toms. Lactate WB 1.1 0.5 - 2.2 mmol/L [facility] FIO2 Art 50 % [facility] PF Ratio Art 94 [facility] Specimen Anatomical Collection Method Collection Time Receive d Time (Source) Location / / Volume Laterality Blood specimen 07/13/2016 8:43 PM 017 8:43 (specimen) EDT PM EDT Valentino Pérez MD CHEMISTRY ORDERABLES Performing Organization Address City/State/[place] [address] XR Chest PA or AP 1 view (07/13/2016 8:37 PM EDT) Anatomical Region Laterality Modality Chest N/A Digital Radiography Specimen (Source) Anatomical Location Collection Method / Collectio n Time Received Time / Laterality Volume Impressions 07/13/2016 8:53 PM EDT 1. ??Hypoinflation with crowding of normal structures. 2. ??Stable retrocardiac opacity which m ost likely represents atelectasis. Probable small left pleural effusion. Narrative 07/13/2016 8:53 PM EDT EXAMINATION: XR CHEST PA OR AP 1 VIEW CLINICAL HISTORY: requiring additional O 2, non-rebreather, assess for any interval changes. Status post CABG TECHNIQUE: Semiupright portable chest at 2035 hours COMPARISON: 07/12/2016 at 1731 hours FINDINGS: Stable appearance of median sternotomy w ires and mediastinal surgical clips. Interval removal of mediastinal drainage tube, endotracheal tube, and Blue-Vika catheter. A right internal jugular sheat h catheter tip terminates in the mid SVC. Lungs are mildly hypoinflated with crowd ing of normal structures. Retrocardiac opacity obscures the left hemidiaphragm, no change from prior. Probable small left pleural effusion. Low lung volumes results in crowding of normal structures. Allowing for the change in v olumes, no change in the appearance of the pulmonary vascularity. No pneumothor ax or displaced rib fracture. Widened cardiomediastinal silhouette is accentuated by portable technique and hypoinflation. Procedure Note Mago Corona MD - 07/13/2016Formatt ing of this note might be different from the original. EXAMINATION: XR CHEST PA OR AP 1 VIEW CLINICAL HISTORY: requiring additional O 2, non-rebreather, assess for any interval changes. Status post CABG TECHNIQUE: Semiupright portable chest at 2035 hours COMPARISON: 07/12/2016 at 1731 hours FINDINGS: Stable appearance of median sternotomy w ires and mediastinal surgical clips. Interval removal of mediastinal drainage tube, endotracheal tube, and Blue-Vika catheter. A right internal jugular sheat h catheter tip terminates in the mid SVC. Lungs are mildly hypoinflated with crowd ing of normal structures. Retrocardiac opacity obscures the left hemidiaphragm, no change from prior. Probable small left pleural effusion. Low lung volumes results in crowding of normal structures. Allowing for the change in v olumes, no change in the appearance of the pulmonary vascularity. No pneumothor ax or displaced rib fracture. Widened cardiomediastinal silhouette is accentuated by portable technique and hypoinflation. IMPRESSION 1. Hypoinflation with crowding of normal structures. 2. Stable retrocardiac opacity which mos t likely represents atelectasis. Probable small left pleural effusion. Kp Oneal MD IMG DX ORDERABLES POCT Glucose (07/13/2016 7:50 PM EDT) athologist Signature POC Glucose 157 65 - 199 [place] [place] mg/dL [facility] Comment: Supplemental ranges: <140 mg/dL before meals <180 mg/dL all other times of the day Specimen Anatomical Collection Method Collection Time Receive d Time (Source) Location / / Volume Laterality Blood specimen 07/13/2016 7:50 PM 017 7:50 (specimen) EDT PM EDT Valentino Pérez MD POINT OF CARE TEST ORDERABLE S Performing Organization Address City/[facility]/[place] [address] POCT Glucose (07/13/2016 6:06 PM EDT) athologist Signature POC Glucose 170 65 - 199 [place] [place] mg/dL [facility] Comment: Supplemental ranges: <140 mg/dL before meals <180 mg/dL all other times of the day Specimen Anatomical Collection Method Collection Time Receive d Time (Source) Location / / Volume Laterality Blood specimen 07/13/2016 6:06 PM 017 6:06 (specimen) EDT PM EDT Valentino Pérez MD POINT OF CARE TEST ORDERABLE S Performing Organization Address City/[facility]/[place] [address] (ABNORMAL) POCT Glucose (07/13/2016 5:09 PM EDT) athologist Signature POC Glucose 202 (H) 65 - 199 [place] [place] mg/dL [facility] Comment: Supplemental ranges: <140 mg/dL before meals <180 mg/dL all other times of the day Specimen Anatomical Collection Method Collection Time Receive d Time (Source) Location / / Volume Laterality Blood specimen 07/13/2016 5:09 PM 017 5:09 (specimen) EDT PM EDT Valentino Pérez MD POINT OF CARE TEST ORDERABLE S Performing Organization Address City/State/[place] [address] (ABNORMAL) POCT Glucose (07/13/2016 4:08 PM EDT) athologist Signature POC Glucose 225 (H) 65 - 199 [facility] [place] mg/dL [facility] Comment: Supplemental ranges: <140 mg/dL before meals <180 mg/dL all other times of the day Specimen Anatomical Collection Method Collection Time Receive d Time (Source) Location / / Volume Laterality Blood specimen 07/13/2016 4:08 PM 017 4:08 (specimen) EDT PM EDT Valentino Pérez MD POINT OF CARE TEST ORDERABLE S Performing Organization Address City/[facility]/[place] [address] POCT Glucose (07/13/2016 2:11 PM EDT) athologist Signature POC Glucose 171 65 - 199 [facility] [place] mg/dL [facility] Comment: Supplemental ranges: <140 mg/dL before meals <180 mg/dL all other times of the day Specimen Anatomical Collection Method Collection Time Receive d Time (Source) Location / / Volume Laterality Blood specimen 07/13/2016 2:11 PM 017 2:11 (specimen) EDT PM EDT Valentino Pérez MD POINT OF CARE TEST ORDERABLE S Performing Organization Address City/State/[place] [address] POCT Glucose (07/13/2016 12:51 PM EDT) athologist Signature POC Glucose 133 65 - 199 [place] [place] mg/dL [facility] Comment: Supplemental ranges: <140 mg/dL before meals <180 mg/dL all other times of the day Specimen Anatomical Collection Method Collection Time Receive d Time (Source) Location / / Volume Laterality Blood specimen 07/13/2016 12:51 7 (specimen) PM EDT 12:51 PM EDT Valentino Pérez MD POINT OF CARE TEST ORDERABLE S Performing Organization Address City/State/ZIP Code Phon e Number [address] POCT Glucose (07/13/2016 11:40 AM EDT) athologist Signature POC Glucose 118 65 - 199 [place] mg/dL [facility] Comment: Supplemental ranges: <140 mg/dL before meals <180 mg/dL all other times of the day Specimen Anatomical Collection Method Collection Time Receive d Time (Source) Location / / Volume Laterality Blood specimen 07/13/2016 11:40 7 (specimen) AM EDT 11:40 AM EDT Valentino Pérez MD POINT OF CARE TEST ORDERABLE S Performing Organization Address City/State/ZIP Code Phon e Number [address] POCT Glucose (07/13/2016 10:29 AM EDT) athologist Signature POC Glucose 126 65 - 199 [place] [place] mg/dL [facility] Comment: Supplemental ranges: <140 mg/dL before meals <180 mg/dL all other times of the day Specimen Anatomical Collection Method Collection Time Receive d Time (Source) Location / / Volume Laterality Blood specimen 07/13/2016 10:29 7 (specimen) AM EDT 10:29 AM EDT Valentino Pérez MD POINT OF CARE TEST ORDERABLE S Performing Organization Address City/State/[place] [address] POCT Glucose (07/13/2016 9:55 AM EDT) athologist Signature POC Glucose 113 65 - 199 [place] [place] mg/dL [facility] Comment: Supplemental ranges: <140 mg/dL before meals <180 mg/dL all other times of the day Specimen Anatomical Collection Method Collection Time Receive d Time (Source) Location / / Volume Laterality Blood specimen 07/13/2016 9:55 AM 017 9:55 (specimen) EDT AM EDT Valentino Pérez MD POINT OF CARE TEST ORDERABLE S Performing Organization Address City/[facility]/ZIP Code Phon e Number [address] POCT Glucose (07/13/2016 9:13 AM EDT) P athologist Signature POC Glucose 136 65 - 199 [facility] Comment: Supplemental ranges: <140 mg/dL before meals <180 mg/dL all other times of the day Specimen Anatomical Collection Method Collection Time Receive d Time (Source) Location / / Volume Laterality Blood specimen 07/13/2016 9:13 AM 017 9:13 (specimen) EDT AM EDT Valentino Pérez MD POINT OF CARE TEST ORDERABLE S Performing Organization Address [facility] Phon e Number [address] EKG 12 Lead (07/13/2016 7:32 AM EDT) Component Value Ref Range Test Analysis Performed Pathologis t Method Time At Signature Ventricular rate 122 BPM MUSE SYSTEM Atrial Rate 122 BPM MUSE SYSTEM P-R Interval 130 ms MUSE SYSTEM QRS Duration 92 ms MUSE SYSTEM Q-T Interval 342 ms MUSE SYSTEM QTC Calculated 487 ms MUSE SYSTEM (Bezet) Calculated P [place] 65 degrees MUSE SYSTEM Calculated R [place] 52 degrees MUSE SYSTEM Calculated T [place] 22 degrees MUSE SYSTEM INTERPRETATION Sinus tachycardia MUSE SY STEM Septal infarct , age undetermined Nonspecific T wave abnormality Abnormal ECG When compared with ECG of 12-JUL-2016 17:32, No significant change was found IN CHAIR Confirmed by MD Gunnar, Eddie ([id number]) on 07/13/2016 9:25:08 AM Specimen Anatomical Collection Method Collection Time Receive d Time (Source) Location / / Volume Laterality 07/13/2016 7:32 AM 7 9:25 EDT AM EDT Valentino Pérez MD ECG ORDERABLES Performing Organization Address City/[facility]/ZIP Code Phon e Number MUSE SYSTEM POCT Glucose (07/13/2016 7:31 AM EDT) athologist Signature POC Glucose 172 65 - 199 [place] [place] mg/dL [facility] Comment: Supplemental ranges: <140 mg/dL before meals <180 mg/dL all other times of the day Specimen Anatomical Collection Method Collection Time Receive d Time (Source) Location / / Volume Laterality Blood specimen 07/13/2016 7:31 AM 017 7:31 (specimen) EDT AM EDT Valentino Pérez MD POINT OF CARE TEST ORDERABLE S Performing Organization Address City/State/[place] [address] POCT Glucose (07/13/2016 7:05 AM EDT) athologist Signature POC Glucose 181 65 - 199 [place] [place] mg/dL [facility] Comment: Supplemental ranges: <140 mg/dL before meals <180 mg/dL all other times of the day Specimen Anatomical Collection Method Collection Time Receive d Time (Source) Location / / Volume Laterality Blood specimen 07/13/2016 7:05 AM 017 7:05 (specimen) EDT AM EDT Valentino Pérez MD POINT OF CARE TEST ORDERABLE S Performing Organization Address City/State/[place] [address] POCT Glucose (07/13/2016 6:10 AM EDT) athologist Signature POC Glucose 178 65 - 199 [place] [place] mg/dL [facility] Comment: Supplemental ranges: <140 mg/dL before meals <180 mg/dL all other times of the day Specimen Anatomical Collection Method Collection Time Receive d Time (Source) Location / / Volume Laterality Blood specimen 07/13/2016 6:10 AM 017 6:10 (specimen) EDT AM EDT Valentino Pérez MD POINT OF CARE TEST ORDERABLE S Performing Organization Address City/State/ZIP Code Phon e Number [address] (ABNORMAL) POCT Glucose (07/13/2016 5:13 AM EDT) athologist Signature POC Glucose 208 (H) 65 - 199 [place] [place] mg/dL [facility] Comment: Supplemental ranges: <140 mg/dL before meals <180 mg/dL all other times of the day Specimen Anatomical Collection Method Collection Time Receive d Time (Source) Location / / Volume Laterality Blood specimen 07/13/2016 5:13 AM 017 5:13 (specimen) EDT AM EDT Valentino Pérez MD POINT OF CARE TEST ORDERABLE S Performing Organization Address City/[facility]/ZIP Code Phon e Number [address] POCT Glucose (07/13/2016 4:15 AM EDT) P athologist Signature POC Glucose 182 65 - 199 [facility] mg/dL [facility] Comment: Supplemental ranges: <140 mg/dL before meals <180 mg/dL all other times of the day Specimen Anatomical Collection Method Collection Time Receive d Time (Source) Location / / Volume Laterality Blood specimen 07/13/2016 4:15 AM 017 4:15 (specimen) EDT AM EDT Valentino Pérez MD POINT OF CARE TEST ORDERABLE S Performing Organization Address City/State/[place] [address] (ABNORMAL) Differential, Automated (07/13/2016 4:10 AM EDT) Patholo gist Method Time Signature Neutrophils % 76.6 % [facility] Neutr Abs (ANC) 7.52 (H) 1.70 - [facility] 6.10 [facility] x10(3)/[facility] LABORATORY Lymphocytes % 15.4 % [facility] Lymphocytes Abs 1.5 0.9 - 3.2 [facility] x10(3)/[facility] LABORATORY Monocytes % 7.6 % [facility] Monocyte Abs 0.8 0.3 - 0.9 [facility] x10(3)/[facility] LABORATORY Eosinophils % 0.0 % [facility] Eosinophils Abs 0.0 0.0 - 0.4 [facility] x10(3)/[facility] LABORATORY Basophils % 0.1 % [facility] Basophils Abs 0.0 0.0 - 0.1 [facility] x[facility] LABORATORY Immature Gran % 0.30 % [facility] Comment: Immature granulocytes(IG's)percentage an d absolute count will include metamyelocytes, myelocytes, and promyelo cytes. Blood smears from CBCs yielding IG's will be scanned manually for concandrew danluis. If this scan disagrees with the automated IG or if promyelocytes are not ed, a manual differential will be performed. Madhuri Gran Abs 0.03 0.00 - 0.04 x10(3)/[facility] LABORATORY Specimen Anatomical Collection Method Collection Time Receive d Time (Source) Location / / Volume Laterality Blood specimen 07/13/2016 4:10 AM 017 4:33 (specimen) EDT AM EDT Resulting Agency Comment Spec In Lab Valentino Pérez MD HEMATOLOGY ORDERABLES Performing Organization Address City/State/ZIP Code Phon e Number [place] [id number] (ABNORMAL) Hemogram (07/13/2016 4:10 AM EDT) Analysis Performed At Patho logist Time Signature WBC 9.8 (H) 4.0 - 9.5 [facility] x10(3)/[facility] LABORATORY RBC 3.44 (L) 4.58 - [facility] 5.54 [facility] x10(6)/[facility] LABORATORY Hemoglobin 10.2 (L) 13.7 - [facility] 16.5 gm/dL [facility] Hematocrit 31.1 (L) 40.5 - [facility] 48.5 % [facility] MCV 90.4 82.9 - [facility] 93.1 [facility] LABORATORY MCH 29.7 27.5 - [facility] 32.1 pg [facility] MCHC 32.8 32.0 - [facility] 35.7 gm/dL [facility] Platelets 136 (L) 145 - 357 [facility] x10(3)/[facility] LABORATORY RDWSD 43.7 36.0 - [facility] 45.0 [facility] LABORATORY RDWCV 13.2 11.4 - [facility] 13.8 % [facility] MPV 11.0 7.6 - 12.9 [facility] LABORATORY nRBC % Auto 0.0 % [facility] nRBC Abs Auto 0.000 0.000 - [facility] 0.000 [facility] x10(3)/[facility] LABORATORY Specimen Anatomical Collection Method Collection Time Receive d Time (Source) Location / / Volume Laterality Blood specimen 07/13/2016 4:10 AM 017 4:33 (specimen) EDT AM EDT Resulting Agency Comment Spec In Lab Valentino Pérez MD HEMATOLOGY ORDERABLES Performing Organization Address City/[facility]/ZIP Code Phon e Number [address] Electrolytes panel (07/13/2016 4:10 AM EDT) athologist Signature Sodium 140 135 - 145 [facility] mmol/L [facility] Potassium 4.2 3.5 - 5.0 [facility] mmol/L [facility] Comment: Please note: ??Patients with WBC >100,00 0 may have falsely elevated Potassium levels. ??For accurate Potassium quantif ication in these patients send serum separator tube (gold top) for subsequent determinations. ??Contact the Clinical Chemistry Laboratory if there are any qu estions. Chloride 105 98 - 107 mmol/L [facility] CO2 22 22 - 31 mmol/L [facility] Anion Gap 13 5 - 15 mmol/L [facility] Specimen Anatomical Collection Method Collection Time Receive d Time (Source) Location / / Volume Laterality Blood specimen 07/13/2016 4:10 AM 017 4:34 (specimen) EDT AM EDT Resulting Agency Comment Spec In Lab Valentino Pérez MD CHEMISTRY ORDERABLES Performing Organization Address City/[facility]/[place] [address] (ABNORMAL) Cardiac Enzymes (07/13/2016 4:10 AM EDT) athologist Signature Troponin-T 1.28 (H) <=0.03 [facility] ng/mL [facility] Comment: 0.03 ng/mL: Represents the 99th percenti le upper reference limit for normals. >0.03 ng/mL: Elevated cardiac troponin T level indicative of myocardial damage. Diagnosis of acute, evolving or recent M I requires a typical rise and gradual fall of cTnT with at least ONE of the fo llowing: a) Ischemic symptoms b) Development of pathologic Q waves on the ECG c) ECG changes indicative of eschemia (S -T segment elevation/depression) d) Coronary artery intervention Serial bloods should be obtained for catrachita ting on admission, at 6 to 9 hrs and again at 12 to 24 hrs if earlier samples are negative and the clinical index of suspicion is high. Reference: [Myocardial infarction redefined? a consensus document of the Joint Society of Cardiology/[place] [employer] [employer] Committee for the redefinition of myocardial infarction. ? ?Journal of the [place] [employer] 2000; 36: 959-969] CK, Total 740 (H) 0 - 200 unit/L [facility] Specimen Anatomical Collection Method Collection Time Receive d Time (Source) Location / / Volume Laterality Blood specimen 07/13/2016 4:10 AM 017 4:33 (specimen) EDT AM EDT Resulting Agency Comment Spec In Lab Valentino Pérez MD CHEMISTRY ORDERABLES Performing Organization Address City/State/ZIP Code Phon e Number [place] [id number] (ABNORMAL) Glucose, fasting (07/13/2016 4:10 AM EDT) athologist Signature Glucose 200 (H) 65 - 99 [facility] Fasting mg/dL [facility] Comment: ?Fasting* Glucose Interpretive C [...] of Diabetes Mellitus, Position Statement from the [place] [employer]. ??Diabete s Care, Volume 33, Supplement 1, Apr 2009 Specimen Anatomical Collection Method Collection Time Receive d Time (Source) Location / / Volume Laterality Blood specimen 07/13/2016 4:10 AM 017 4:33 (specimen) EDT AM EDT Resulting Agency Comment Spec In Lab Valentino Pérez MD CHEMISTRY ORDERABLES Performing Organization Address City/[facility] Phon e Number [address] (ABNORMAL) Creatinine (07/13/2016 4:10 AM EDT) athologist Signature Creatinine 0.61 (L) 0.80 - [facility] 1.50 mg/dL [facility] Comment: Please note that the pediatric reference intervals supplied above were not validated at [facility]. Results from pediatri c patients should be interpreted in conjunction to the patient's age, height and muscle mass. Estimated GFR >[address] [facility] Comment: This estimated GFR (eGFR) value was calc ulated using the MDRD equation which has been validated on patients between t he ages of 18 and 70. The MDRD should not be used to assess kidney function in patients < 18 years of age or in patients with extremes of body mass, or in patients with acute kidney failure. This value should be multiplied by 1.2 f or patients. For further information please copy and past e the following links into your internet browser. [email or web address] Specimen Anatomical Collection Method Collection Time Receive d Time (Source) Location / / Volume Laterality Blood specimen 07/13/2016 4:10 AM 017 4:33 (specimen) EDT AM EDT Resulting Agency Comment Spec In Lab Valentino Pérez MD CHEMISTRY ORDERABLES Performing Organization Address City/[facility] [place] [address] BUN (07/13/2016 4:10 AM EDT) athologist Signature BUN 12 10 - 20 J[facility]IA mg/dL [facility] Specimen Anatomical Collection Method Collection Time Receive d Time (Source) Location / / Volume Laterality Blood specimen 07/13/2016 4:10 AM 017 4:33 (specimen) EDT AM EDT Resulting Agency Comment Spec In Lab Valentino Pérez MD CHEMISTRY ORDERABLES Performing Organization Address City/State/ZIP Code Phon e Number [address] POCT Glucose (07/13/2016 2:50 AM EDT) athologist Signature POC Glucose 158 65 - 199 [facility] mg/dL [facility] Comment: Supplemental ranges: <140 mg/dL before meals <180 mg/dL all other times of the day Specimen Anatomical Collection Method Collection Time Receive d Time (Source) Location / / Volume Laterality Blood specimen 07/13/2016 2:50 AM 017 2:50 (specimen) EDT AM EDT Valentino Pérez MD POINT OF CARE TEST ORDERABLE S Performing Organization Address City/State/ZIP Code Phon e Number [address] POCT Glucose (07/13/2016 2:02 AM EDT) athologist Signature POC Glucose 138 65 - 199 [facility] mg/dL [facility] Comment: Supplemental ranges: <140 mg/dL before meals <180 mg/dL all other times of the day Specimen Anatomical Collection Method Collection Time Receive d Time (Source) Location / / Volume Laterality Blood specimen 07/13/2016 2:02 AM 017 2:02 (specimen) EDT AM EDT Valentino Pérez MD POINT OF CARE TEST ORDERABLE S Performing Organization Address City/State/ZIP Code Phon e Number [address] POCT Glucose (07/13/2016 1:12 AM EDT) athologist Signature POC Glucose 168 65 - 199 [facility] mg/dL [facility] Comment: Supplemental ranges: <140 mg/dL before meals <180 mg/dL all other times of the day Specimen Anatomical Collection Method Collection Time Receive d Time (Source) Location / / Volume Laterality Blood specimen 07/13/2016 1:12 AM 017 1:12 (specimen) EDT AM EDT Valentino Pérez MD POINT OF CARE TEST ORDERABLE S Performing Organization Address City/State/[place] [address] POCT Glucose (07/12/2016 11:56 PM EDT) P athologist Signature POC Glucose 141 65 - 199 [facility] mg/dL [facility] Comment: Supplemental ranges: <140 mg/dL before meals <180 mg/dL all other times of the day Specimen Anatomical Collection Method Collection Time Receive d Time (Source) Location / / Volume Laterality Blood specimen 07/12/2016 11:56 7 (specimen) PM EDT 11:56 PM EDT Valentino Pérez MD POINT OF CARE TEST ORDERABLE S Performing Organization Address City/State/[place] [address] (ABNORMAL) BLOOD GAS 2 ARTERIAL (07/12/2016 10:47 PM EDT) Analysis Performed At Patho logist Time Signature pH Art 7.42 7.35 - [facility] 7.45 [facility] pCO2 Art 33 (L) 35 - 45 [facility] LABORATORY pO2 Art 84 (L) 85 - 104 [facility] LABORATORY HCO3 Art 20.8 20.0 - [facility] 26.0 [facility] mmol/L [facility] LABORATORY BE Art -3.6 (L) -3.0 - 3.0 [facility] mmol/L [facility] Hgb Blood Gas 11.2 (L) 13.7 - [facility] 16.5 gm/dL [facility] O2HB Art 95.1 94.0 - [facility] 97.0 % [facility] COHB Art 0.1 % [facility] Comment: Nonsmokers: 0.5-1.5% COHB Smokers: Variable, but usually less than 10% Toxic: 20-30% COHB Lethal: Greater than 60% COHB METHB Art 0.7 <=1.5 % [facility] Na Whole Blood 139 135 - 145 mmol/L [facility] K Whole Blood 3.7 3.5 - 5.0 mmol/L [facility] Comment: Please note: Patients with WBC >100,000 may have falsely elevated Potassium levels. Contact the Clinical Chemistry L aboratory if there are any questions. ICa Whole Blood 1.10 (L) 1.15 - 1.33 mmol/L [facility] Comment: Note: ??Total bilirubin higher than 20 m g/dL may lead to falsely low ionized calcium. CL Whole Blood 112 (H) 98 - 107 mmol/L [facility] Gluc Whole Bld 147 65 - 199 mg/dL [facility] Comment: Diabetes: >=200 mg/dL plus symp toms. Lactate WB 0.9 0.5 - 2.2 mmol/L [facility] FIO2 Art 40 % [facility] PF Ratio Art 210 [facility] Temp Art 37.0 Celsius [facility] Specimen Anatomical Collection Method Collection Time Receive d Time (Source) Location / / Volume Laterality Blood specimen 07/12/2016 10:47 7 (specimen) PM EDT 10:47 PM EDT Valentino Pérez MD CHEMISTRY ORDERABLES Performing Organization Address City/State/[place] [address] POCT Glucose (07/12/2016 10:47 PM EDT) athologist Signature POC Glucose 162 65 - 199 [facility] mg/dL [facility] Comment: Supplemental ranges: <140 mg/dL before meals <180 mg/dL all other times of the day Specimen Anatomical Collection Method Collection Time Receive d Time (Source) Location / / Volume Laterality Blood specimen 07/12/2016 10:47 7 (specimen) PM EDT 10:47 PM EDT Valentino Pérez MD POINT OF CARE TEST ORDERABLE S Performing Organization Address City/State/[place] [address] POCT Glucose (07/12/2016 10:05 PM EDT) athologist Signature POC Glucose 141 65 - 199 [facility] mg/dL [facility] Comment: Supplemental ranges: <140 mg/dL before meals <180 mg/dL all other times of the day Specimen Anatomical Collection Method Collection Time Receive d Time (Source) Location / / Volume Laterality Blood specimen 07/12/2016 10:05 7 (specimen) PM EDT 10:05 PM EDT Valentino Pérez MD POINT OF CARE TEST ORDERABLE S Performing Organization Address City/State/[place] [address] POCT Glucose (07/12/2016 8:57 PM EDT) athologist Signature POC Glucose 171 65 - 199 [facility] mg/dL [facility] Comment: Supplemental ranges: <140 mg/dL before meals <180 mg/dL all other times of the day Specimen Anatomical Collection Method Collection Time Receive d Time (Source) Location / / Volume Laterality Blood specimen 07/12/2016 8:57 PM 017 8:57 (specimen) EDT PM EDT Valentino Pérez MD POINT OF CARE TEST ORDERABLE S Performing Organization Address City/State/[place] [address] (ABNORMAL) Hemoglobin (07/12/2016 8:55 PM EDT) athologist Signature Hemoglobin 11.1 (L) 13.7 - [facility] 16.5 gm/dL [facility] Specimen Anatomical Collection Method Collection Time Receive d Time (Source) Location / / Volume Laterality Blood specimen 07/12/2016 8:55 PM 017 9:04 (specimen) EDT PM EDT Resulting Agency Comment Spec In Lab Valentino Pérez MD HEMATOLOGY ORDERABLES Performing Organization Address City/[facility]/[place] [address] Potassium (07/12/2016 8:55 PM EDT) athologist Signature Potassium 4.1 3.5 - 5.0 [facility] mmol/L [facility] Comment: Please note: ??Patients with WBC >100,00 0 may have falsely elevated Potassium levels. ??For accurate Potassium quantif ication in these patients send serum separator tube (gold top) for subsequent determinations. ??Contact the Clinical Chemistry Laboratory if there are any qu estions. Specimen Anatomical Collection Method Collection Time Receive d Time (Source) Location / / Volume Laterality Blood specimen 07/12/2016 8:55 PM 017 9:04 (specimen) EDT PM EDT Resulting Agency Comment Spec In Lab Valentino Pérez MD CHEMISTRY ORDERABLES Performing Organization Address [facility]/[place] [address] POCT Glucose (07/12/2016 7:45 PM EDT) athologist Signature POC Glucose 172 65 - 199 [facility] mg/dL [facility] Comment: Supplemental ranges: <140 mg/dL before meals <180 mg/dL all other times of the day Specimen Anatomical Collection Method Collection Time Receive d Time (Source) Location / / Volume Laterality Blood specimen 07/12/2016 7:45 PM 017 7:45 (specimen) EDT PM EDT Valentino Pérez MD POINT OF CARE TEST ORDERABLE S Performing Organization Address City/[facility]/[place] [address] (ABNORMAL) BLOOD GAS 2 ARTERIAL (07/12/2016 7:07 PM EDT) Analysis Performed At Patho logist Time Signature pH Art 7.38 7.35 - [facility] 7.45 [facility] pCO2 Art 38 35 - 45 [facility] LABORATORY pO2 Art 106 (H) 85 - 104 [facility] LABORATORY HCO3 Art 22.0 20.0 - [facility] 26.0 [facility] mmol/L [facility] LABORATORY BE Art -3.1 (L) -3.0 - 3.0 [facility] mmol/L [facility] Hgb Blood Gas 12.4 (L) 13.7 - [facility] 16.5 gm/dL [facility] O2HB Art 96.7 94.0 - [facility] 97.0 % [facility] COHB Art 0.2 % [facility] Comment: Nonsmokers: 0.5-1.5% COHB Smokers: Variable, but usually less than 10% Toxic: 20-30% COHB Lethal: Greater than 60% COHB METHB Art 0.6 <=1.5 % [facility] Na Whole Blood 136 135 - 145 mmol/L [facility] K Whole Blood 4.0 3.5 - 5.0 mmol/L [facility] Comment: Please note: Patients with WBC >100,000 may have falsely elevated Potassium levels. Contact the Clinical Chemistry L aboratory if there are any questions. ICa Whole Blood 1.15 (L) 1.15 - 1.33 mmol/L [facility] Comment: Note: ??Total bilirubin higher than 20 m g/dL may lead to falsely low ionized calcium. CL Whole Blood 109 (H) 98 - 107 mmol/L [facility] Gluc Whole Bld 185 65 - 199 mg/dL [facility] Comment: Diabetes: >=200 mg/dL plus symp toms. Lactate WB 1.0 0.5 - 2.2 mmol/L [facility] FIO2 Art 60 % [facility] PF Ratio Art 177 [facility] Specimen Anatomical Collection Method Collection Time Receive d Time (Source) Location / / Volume Laterality Blood specimen 07/12/2016 7:07 PM 017 7:07 (specimen) EDT PM EDT Valentino Pérez MD CHEMISTRY ORDERABLES Performing Organization Address City/State/[place] [address] XR Chest PA or AP 1 view (07/12/2016 5:46 PM EDT) Anatomical Region Laterality Modality Chest N/A Digital Radiography Specimen (Source) Anatomical Location Collection Method / Collectio n Time Received Time / Laterality Volume Impressions 07/12/2016 5:55 PM EDT Postoperative changes as described. Narrative 07/12/2016 5:55 PM EDT EXAMINATION: XR CHEST PA OR AP 1 VIEW CLINICAL HISTORY: s/p CABGx4 TECHNIQUE: AP chest COMPARISON: July 11, 2016 FINDINGS: New midline sternotomy wires. New CABG c lips. Mediastinal drain in position. Right internal jugular central venous ca theter with Blue-Vika catheter tip projected in the right main pulmonary ar ronal. New platelike patchy opacities in the left lower lobe are likely atelectat ic as is a small left pleural effusion. Procedure Note Tammy Rivera MD - 07/12/2016 EXAMINATION: XR CHEST PA OR AP 1 VIEW CLINICAL HISTORY: s/p CABGx4 TECHNIQUE: AP chest COMPARISON: July 11, 2016 FINDINGS: New midline sternotomy wires. New CABG c lips. Mediastinal drain in position. Right internal jugular central venous ca theter with Blue-Vika catheter tip projected in the right main pulmonary ar ronal. New platelike patchy opacities in the left lower lobe are likely atelectat ic as is a small left pleural effusion. IMPRESSION Postoperative changes as described. Valentino Pérez MD IMG DX ORDERABLES EKG 12 Lead (07/12/2016 5:32 PM EDT) Component Value Ref Range Test Analysis Performed Pathologis t Method Time At Signature Ventricular rate 95 BPM MUSE SYSTEM Atrial Rate 95 BPM MUSE SYSTEM P-R Interval 140 ms MUSE SYSTEM QRS Duration 92 ms MUSE SYSTEM Q-T Interval 362 ms MUSE SYSTEM QTC Calculated 454 ms MUSE SYSTEM (Bezet) Calculated P [place] 74 degrees MUSE SYSTEM Calculated R [place] 68 degrees MUSE SYSTEM Calculated T [place] 32 degrees MUSE SYSTEM INTERPRETATION Normal sinus rhythm MUSE SYSTEM Nonspecific ST and T wave abnormality Abnormal ECG When compared with ECG of 08-JUL-2016 20:03, Nonspecific T wave abnormality no longer evident in Lateral leads Confirmed by MD STERLING, GRIFFIN ([id number]) on 07/13/2016 8:46:34 AM Specimen Anatomical Collection Method Collection Time Receive d Time (Source) Location / / Volume Laterality 07/12/2016 5:32 PM 7 8:46 EDT AM EDT Valentino Pérez MD ECG ORDERABLES Performing Organization Address City/State/ZIP Code Phon e Number MUSE SYSTEM (ABNORMAL) BLOOD GAS 2 ARTERIAL (07/12/2016 5:31 PM EDT) Analysis Performed At Patho logist Time Signature pH Art 7.40 7.35 - [facility] 7.45 [facility] pCO2 Art 40 35 - 45 [facility] LABORATORY pO2 Art 106 (H) 85 - 104 [facility] LABORATORY HCO3 Art 24.0 20.0 - [facility] 26.0 [facility] mmol/L [facility] LABORATORY BE Art -0.7 -3.0 - 3.0 [facility] mmol/L [facility] Hgb Blood Gas 12.4 (L) 13.7 - [facility] 16.5 gm/dL [facility] O2HB Art 96.5 94.0 - [facility] 97.0 % [facility] COHB Art 0.2 % [facility] Comment: Nonsmokers: 0.5-1.5% COHB Smokers: Variable, but usually less than 10% Toxic: 20-30% COHB Lethal: Greater than 60% COHB METHB Art 0.7 <=1.5 % [facility] Na Whole Blood 137 135 - 145 mmol/L [facility] K Whole Blood 4.1 3.5 - 5.0 mmol/L [facility] Comment: Please note: Patients with WBC >100,000 may have falsely elevated Potassium levels. Contact the Clinical Chemistry L aboratory if there are any questions. ICa Whole Blood 1.18 1.15 - 1.33 mmol/L [facility] Comment: Note: ??Total bilirubin higher than 20 m g/dL may lead to falsely low ionized calcium. CL Whole Blood 110 (H) 98 - 107 mmol/L [facility] Gluc Whole Bld 197 65 - 199 mg/dL [facility] Comment: Diabetes: >=200 mg/dL plus symp toms. Lactate WB 1.0 0.5 - 2.2 mmol/L [facility] FIO2 Art 100 % [facility] PF Ratio Art 106 [facility] Specimen Anatomical Collection Method Collection Time Receive d Time (Source) Location / / Volume Laterality Blood specimen 07/12/2016 5:31 PM 017 5:31 (specimen) EDT PM EDT Valentino Pérez MD CHEMISTRY ORDERABLES Performing Organization Address City/State/[place] [address] (ABNORMAL) BLOOD GAS 2 ARTERIAL (07/12/2016 3:58 PM EDT) Analysis Performed At Patho logist Time Signature pH Art 7.32 (L) 7.35 - [facility] 7.45 [facility] pCO2 Art 48 (H) 35 - 45 [facility] LABORATORY pO2 Art 72 (L) 85 - 104 [facility] LABORATORY HCO3 Art 24.2 20.0 - [facility] 26.0 [facility] mmol/[facility] LABORATORY BE Art -1.9 -3.0 - 3.0 [facility] mmol/L [facility] Hgb Blood Gas 10.1 (L) 13.7 - [facility] 16.5 gm/dL [facility] O2HB Art 92.3 (L) 94.0 - [facility] 97.0 % [facility] COHB Art 0.6 % [facility] Comment: Nonsmokers: 0.5-1.5% COHB Smokers: Variable, but usually less than 10% Toxic: 20-30% COHB Lethal: Greater than 60% COHB METHB Art 0.3 <=1.5 % [facility] Na Whole Blood 134 (L) 135 - 145 mmol/L [facility] K Whole Blood 3.8 3.5 - 5.0 mmol/L [facility] Comment: Please note: Patients with WBC >100,000 may have falsely elevated Potassium levels. Contact the Clinical Chemistry L aboratory if there are any questions. ICa Whole Blood 1.26 1.15 - 1.33 mmol/L [facility] Comment: Note: ??Total bilirubin higher than 20 m g/dL may lead to falsely low ionized calcium. CL Whole Blood 106 98 - 107 mmol/L [facility] Gluc Whole Bld 266 (H) 65 - 199 mg/dL [facility] Comment: Diabetes: >=200 mg/dL plus symp toms. Lactate WB 2.3 (H) 0.5 - 2.2 mmol/L [facility] Specimen Anatomical Collection Method Collection Time Receive d Time (Source) Location / / Volume Laterality Blood specimen Arterial Draw / 07/12/2016 3:58 PM 06/24 4:47 (specimen) Unknown EDT PM EDT Resulting Agency Comment Spec In Lab Valentino Pérez MD CHEMISTRY ORDERABLES Performing Organization Address City/[facility]/ZIP Code Phon e Number [address] Scan, Peripheral Blood (07/12/2016 3:50 PM EDT) [facility] Method Time Signature Plat Estimate Decreased [facility] RBC Morphology Normal [facility] Specimen Anatomical Collection Method Collection Time Receive d Time (Source) Location / / Volume Laterality Blood specimen 07/12/2016 3:50 PM 017 4:03 (specimen) EDT PM EDT Resulting Agency Comment Spec In Lab Rolf Zayas MD HEMATOLOGY ORDERABLES Performing Organization Address City/[facility]/[place] [address] (ABNORMAL) Differential, Automated (07/12/2016 3:50 PM EDT) [employer] Method Time Signature Neutrophils % 73.2 % [facility] Neutr Abs (ANC) 8.05 (H) 1.70 - [facility] 6.10 [facility] x10(3)/[facility] LABORATORY Lymphocytes % 22.6 % [facility] Lymphocytes Abs 2.5 0.9 - 3.2 [facility] x10(3)/[facility] LABORATORY Monocytes % 2.3 % [facility] Monocyte Abs 0.2 (L) 0.3 - 0.9 [facility] x10(3)/[facility] LABORATORY Eosinophils % 0.7 % [facility] Eosinophils Abs 0.1 0.0 - 0.4 [facility] x10(3)/[facility] LABORATORY Basophils % 0.2 % [facility] Basophils Abs 0.0 0.0 - 0.1 [facility] x10(3)/[facility] LABORATORY Immature Gran % 1.00 % [facility] Comment: Immature granulocytes(IG's)percentage an d absolute count will include metamyelocytes, myelocytes, and promyelo cytes. Blood smears from CBCs yielding IG's will be scanned manually for concor dance. If this scan disagrees with the automated IG or if promyelocytes are not ed, a manual differential will be performed. Madhuri Gran Abs 0.11 (H) 0.00 - 0.04 x10(3)/[facility] LABORATORY Specimen Anatomical Collection Method Collection Time Receive d Time (Source) Location / / Volume Laterality Blood specimen 07/12/2016 3:50 PM 017 4:03 (specimen) EDT PM EDT Resulting Agency Comment Spec In Lab Rolf Zayas MD HEMATOLOGY ORDERABLES Performing Organization Address City/State/[place] [address] (ABNORMAL) Hemogram (07/12/2016 3:50 PM EDT) P athologist Signature WBC 11.0 (H) 4.0 - 9.5 [facility] x10(3)/[facility] LABORATORY Comment: These results were called to Pascale myles by Pilar Calhoun on 07-12-2016 at 1611; and were read back. RBC 2.94 (L) 4.58 - 5.54 x10(6)/[facility] LABORATORY Hemoglobin 9.1 (L) 13.7 - 16.5 gm/dL [facility] LABORATORY Hematocrit 27.5 (L) 40.5 - 48.5 % [facility] LABORATORY Comment: This result has been called to PASCALE MEI by Pilar Robles on 07 12 2016 at 1811, and has been read back. MCV 93.5 (H) 82.9 - 93.1 [facility] LABORATORY MCH 31.0 27.5 - 32.[address] [facility] LABORATORY MCHC 33.1 32.0 - 35.7 gm/dL [facility] LABORATORY Platelets 124 (L) 145 - 357 x10(3)/mcL [facility] LABORATORY RDWSD 44.7 36.0 - 45.0 [facility] LABORATORY RDWCV 13.0 11.4 - 13.8 % [facility] LABORATORY MPV 11.7 7.6 - 12.9 [facility] LABORATORY nRBC % Auto 0.0 % [facility] LABORATORY nRBC Abs Auto 0.000 0.000 - 0.000 x10(3)/[facility] LABORATORY Specimen Anatomical Collection Method Collection Time Receive d Time (Source) Location / / Volume Laterality Blood specimen 07/12/2016 3:50 PM 017 4:03 (specimen) EDT PM EDT Resulting Agency Comment Spec In Lab Rolf Zayas MD HEMATOLOGY ORDERABLES Performing Organization Address City/State/[place] [address] Thrombin time (07/12/2016 3:50 PM EDT) athologist Signature Thrombin Time 18 15 - 20 [facility] LABORATORY Comment: A prolongation in the thrombin time (>20 seconds) may be indicative of hypofibrinogenemia or dysfibrinogenemia. The thrombin time will be prolonged, often markedly so, by the presence of he gabriela or direct thrombin inhibitors (argatroban, bivalirudin, dabigatran) in the specimen. Specimen Anatomical Collection Method Collection Time Receive d Time (Source) Location / / Volume Laterality Blood specimen 07/12/2016 3:50 PM 017 4:03 (specimen) EDT PM EDT Resulting Agency Comment Spec In Lab Rolf Zayas MD HEMATOLOGY ORDERABLES Performing Organization Address City/State/[place] [address] APTT (07/12/2016 3:50 PM EDT) P athologist Signature PTT 29 25 - [address] [facility] LABORATORY Comment: The recommended therapeutic range for fu ll dose, unfractionated heparin at [facility] is 80 ? 114 seconds. The use of the anti-Xa (heparin) level rather than the PTT is recommended for monitoring anticoagul ation intensity in critically ill patients receiving unfractionated hepari n by continuous IV infusion. Specimen Anatomical Collection Method Collection Time Receive d Time (Source) Location / / Volume Laterality Blood specimen 07/12/2016 3:50 PM 017 4:03 (specimen) EDT PM EDT Resulting Agency Comment Spec In Lab Rolf Zayas MD HEMATOLOGY ORDERABLES Performing Organization Address City/[facility]/[place] [address] (ABNORMAL) Prothrombin Time (07/12/2016 3:50 PM EDT) P athologist Signature PT 17.5 (H) 12.0 - 15.0 [facility] LABORATORY Comment: An INR <2.0 indicates adequate [...] be appropriate depending on c linical circumstances. INR 1.4 (H) 0.9 - 1.1 [facility] LABORATORY Specimen Anatomical Collection Method Collection Time Receive d Time (Source) Location / / Volume Laterality Blood specimen 07/12/2016 3:50 PM 017 4:03 (specimen) EDT PM EDT Resulting Agency Comment Spec In Lab Rolf Zayas MD HEMATOLOGY ORDERABLES Performing Organization Address City/[facility]/[place] [address] Fibrinogen (07/12/2016 3:50 PM EDT) P athologist Signature Fibrinogen 365 180 - 510 [facility] mg/dL [facility] LABORATORY Comment: A fibrinogen level >100 mg/dL is adequat e for hemostasis in most patients without underlying bleeding disorders. Specimen Anatomical Collection Method Collection Time Receive d Time (Source) Location / / Volume Laterality Blood specimen 07/12/2016 3:50 PM 017 4:03 (specimen) EDT PM EDT Resulting Agency Comment Spec In Lab Rolf Zayas MD HEMATOLOGY ORDERABLES Performing Organization Address City/State/ZIP Code Phon e Number [address] (ABNORMAL) BLOOD GAS 2 ARTERIAL (07/12/2016 3:01 PM EDT) Analysis Performed At Patho logist Time Signature pH Art 7.37 7.35 - [facility] 7.45 [facility] LABORATORY pCO2 Art 41 35 - 45 [facility] mmHg [facility] LABORATORY pO2 Art 199 (H) 85 - 104 [facility] LABORATORY HCO3 Art 23.1 20.0 - [facility] 26.0 [facility] mmol/L [facility] LABORATORY BE Art -2.1 -3.0 - 3.0 [facility] mmol/L [facility] LABORATORY Hgb Blood Gas 9.7 (L) 13.7 - [facility] 16.5 gm/dL [facility] LABORATORY O2HB Art 98.5 (H) 94.0 - [facility] 97.0 % [facility] LABORATORY COHB Art 0.5 % [facility] LABORATORY Comment: Nonsmokers: 0.5-1.5% COHB Smokers: Variable, but usually less than 10% Toxic: 20-30% COHB Lethal: Greater than 60% COHB METHB Art 0.3 <=1.5 % [facility] LABORATORY Na Whole Blood 130 (L) 135 - 145 mmol/L [facility] LABORATORY K Whole Blood 4.7 3.5 - 5.0 mmol/L [facility] LABORATORY Comment: Please note: Patients with WBC >100,000 may have falsely elevated Potassium levels. Contact the Clinical Chemistry L aboratory if there are any questions. ICa Whole Blood 1.01 (L) 1.15 - 1.33 mmol/L [facility] LABORATORY Comment: Note: ??Total bilirubin higher than 20 m g/dL may lead to falsely low ionized calcium. CL Whole Blood 105 98 - 107 mmol/L [facility] LABORATORY Gluc Whole Bld 337 (H) 65 - 199 mg/dL [facility] LABORATORY Comment: Diabetes: >=200 mg/dL plus symp toms. Lactate WB 1.5 0.5 - 2.2 mmol/L [facility] LABORATORY Specimen Anatomical Collection Method Collection Time Receive d Time (Source) Location / / Volume Laterality Blood specimen 07/12/2016 3:01 PM 017 3:01 (specimen) EDT PM EDT Rolf Zayas MD CHEMISTRY ORDERABLES Performing Organization Address City/State/[place] [address] (ABNORMAL) BLOOD GAS 2 ARTERIAL (07/12/2016 2:43 PM EDT) [facility] gist Method Time Signature pH Art 7.29 7.35 - [facility] (Critical) 7.45 [facility] LABORATORY pCO2 Art 48 (H) 35 - 45 [facility] mmHg [facility] LABORATORY pO2 Art 194 (H) 85 - 104 [facility] mmHg [facility] LABORATORY HCO3 Art 22.6 20.0 - [facility] 26.0 [facility] mmol/L [facility] LABORATORY BE Art -3.9 (L) -3.0 - 3.0 [facility] mmol/L [facility] LABORATORY Hgb Blood Gas 9.9 (L) 13.7 - [facility] 16.5 gm/dL [facility] LABORATORY O2HB Art 98.6 (H) 94.0 - [facility] 97.0 % [facility] LABORATORY COHB Art 0.2 % [facility] LABORATORY Comment: Nonsmokers: 0.5-1.5% COHB Smokers: Variable, but usually less than 10% Toxic: 20-30% COHB Lethal: Greater than 60% COHB METHB Art 0.3 <=1.5 % [facility] LABORATORY Na Whole Blood 130 (L) 135 - 145 mmol/L [facility] LABORATORY K Whole Blood 4.5 3.5 - 5.0 mmol/L [facility] LABORATORY Comment: Please note: Patients with WBC >100,000 may have falsely elevated Potassium levels. Contact the Clinical Chemistry L aboratory if there are any questions. ICa Whole Blood 1.04 (L) 1.15 - 1.33 mmol/L [facility] LABORATORY Comment: Note: ??Total bilirubin higher than 20 m g/dL may lead to falsely low ionized calcium. CL Whole Blood 102 98 - 107 mmol/L [facility] LABORATORY Gluc Whole Bld 326 (H) 65 - 199 mg/dL [facility] LABORATORY Comment: Diabetes: >=200 mg/dL plus symp toms. Lactate WB 1.2 0.5 - 2.2 mmol/L [facility] LABORATORY Specimen Anatomical Collection Method Collection Time Receive d Time (Source) Location / / Volume Laterality Blood specimen 07/12/2016 2:43 PM 017 2:43 (specimen) EDT PM EDT Rolf Zayas MD CHEMISTRY ORDERABLES Performing Organization Address City/State/ZIP Code Phon e Number [place] [id number] HOS[address] LAB[address]ORY Drive (ABNORMAL) BLOOD GAS 2 ARTERIAL (07/12/2016 2:34 PM EDT) Analysis Performed At Patho logist Time Signature pH Art 7.31 (L) 7.35 - [facility] 7.45 [facility] LABORATORY pCO2 Art 44 35 - 45 [facility] mmHg [facility] LABORATORY pO2 Art 231 (H) 85 - 104 [facility] mmHg [facility] LABORATORY HCO3 Art 21.9 20.0 - [facility] 26.0 [facility] mmol/L [facility] LABORATORY BE Art -4.4 (L) -3.0 - 3.0 [facility] mmol/L [facility] LABORATORY Hgb Blood Gas 9.6 (L) 13.7 - [facility] 16.5 gm/dL [facility] LABORATORY O2HB Art 98.9 (H) 94.0 - [facility] 97.0 % [facility] LABORATORY COHB Art 0.2 % [facility] LABORATORY Comment: Nonsmokers: 0.5-1.5% COHB Smokers: Variable, but usually less than 10% Toxic: 20-30% COHB Lethal: Greater than 60% COHB METHB Art 0.3 <=1.5 % [facility] LABORATORY Na Whole Blood 129 (L) 135 - 145 mmol/L [facility] LABORATORY K Whole Blood 4.7 3.5 - 5.0 mmol/L [facility] LABORATORY Comment: Please note: Patients with WBC >100,000 may have falsely elevated Potassium levels. Contact the Clinical Chemistry L aboratory if there are any questions. ICa Whole Blood 0.98 (L) 1.15 - 1.33 mmol/L [facility] LABORATORY Comment: Note: ??Total bilirubin higher than 20 m g/dL may lead to falsely low ionized calcium. CL Whole Blood 101 98 - 107 mmol/L [facility] LABORATORY Gluc Whole Bld 355 (H) 65 - 199 mg/dL [facility] LABORATORY Comment: Diabetes: >=200 mg/dL plus symp toms. Lactate WB 1.1 0.5 - 2.2 mmol/L [facility] LABORATORY Specimen Anatomical Collection Method Collection Time Receive d Time (Source) Location / / Volume Laterality Blood specimen 07/12/2016 2:34 PM 017 2:34 (specimen) EDT PM EDT Rolf Zayas MD CHEMISTRY ORDERABLES Performing Organization Address City/State/[place] [address] Platelet count (07/12/2016 2:30 PM EDT) athologist Signature Platelets 172 145 - 357 [facility] x10(3)/[facility] LABORATORY Plat Immature 5.6 0.0 - 7.4 [facility] % % [facility] LABORATORY Comment: Limitation of the Immature Platelet Frac tion (IPF)-May be less reliable when the platelet count is less than 65s071/u L due to statistical imprecision. The IPF value provides an assessment of the Bone Marrow production status. ??It is useful in differentiating Thrombocyto penia caused by platelet destruction/consumption versus decreased production. It also helps to determine the imminent release of platelets and ca n be therefore a helpful parameter in Chemotherapy and Bone marrow transplant patients. ELEVATED IPF value: ?? When the bone marrow is in a state of over production such as when increased destruction and consumption are the unde rlying issue. ?? When the marrow is recovering post ch emotherapy or bone marrow transplant. LOW to NORMAL IPF value: ?? When the bone marrow in not respondin g and is in a decreased state of production. References: [employer] The Clinical Value of the Immature Platelet Fraction (IPF) in Cell Recovery Document Number 10-1143 09/2010 [employer] The Role of the Imm ature Platelet Fraction (IPF) in the Differential Diagnosis of Thrombocytopen ia, Document [id number] V05 P009/05 Specimen Anatomical Collection Method Collection Time Receive d Time (Source) Location / / Volume Laterality Blood specimen 07/12/2016 2:30 PM 017 2:37 (specimen) EDT PM EDT Resulting Agency Comment Spec In Lab Rolf Zayas MD HEMATOLOGY ORDERABLES Performing Organization Address City/State/ZIP Code Phon e Number [place] [phone] HOS[address]ITAL LABORATORY Drive (ABNORMAL) Hemoglobin and Hematocrit, blood (07/12/2016 2:30 PM EDT) P athologist Signature Hemoglobin 8.5 (L) 13.7 - 16.5 [facility] gm/dL [facility] LABORATORY Comment: These results were called to Elio rueda by Pilar Calhoun on 07-12-2016 at 1450; and were read back.. This result h as been called to ELIO CHRISTOPHER by Pilar Robles on 07 12 2016 a t 1650, and has been read back. Hematocrit 26.0 (L) 40.5 - 48.5 % [facility] LABORATORY Comment: This result has been called to ELIO KIRBY by Pilar Robles on 07 12 2016 at 1650, and has been read back. Specimen Anatomical Collection Method Collection Time Receive d Time (Source) Location / / Volume Laterality Blood specimen 07/12/2016 2:30 PM 017 2:37 (specimen) EDT PM EDT Resulting Agency Comment Spec In Lab Rolf Zayas MD HEMATOLOGY ORDERABLES Performing Organization Address City/[facility]/ZIP Code Phon e Number [place] [phone]OS[address] LAB[address]ORY Drive Fibrinogen (07/12/2016 2:30 PM EDT) P athologist Signature Fibrinogen 355 180 - 510 [facility] mg/dL [facility] LABORATORY Comment: Called by: PARK, Read back by: GLEN Pickett , Date/Time:07/12/16 14:51. A fibrinogen level >100 mg/dL is adequat e for hemostasis in most patients without underlying bleeding disorders. Specimen Anatomical Collection Method Collection Time Receive d Time (Source) Location / / Volume Laterality Blood specimen 07/12/2016 2:30 PM 017 2:37 (specimen) EDT PM EDT Resulting Agency Comment Spec In Lab Rolf Zayas MD HEMATOLOGY ORDERABLES Performing Organization Address City/[facility]/[place] [address] (ABNORMAL) BLOOD GAS 2 ARTERIAL (07/12/2016 2:08 PM EDT) Analysis Performed At Patho logist Time Signature pH Art 7.31 (L) 7.35 - [facility] 7.45 [facility] LABORATORY pCO2 Art 41 35 - 45 [facility] mmHg [facility] LABORATORY pO2 Art 289 (H) 85 - 104 [facility] mmHg [facility] LABORATORY HCO3 Art 19.9 (L) 20.0 - [facility] 26.0 [facility] mmol/L [facility] LABORATORY BE Art -6.4 (L) -3.0 - 3.0 [facility] mmol/L [facility] LABORATORY Hgb Blood Gas 9.0 (L) 13.7 - [facility] 16.5 gm/dL [facility] LABORATORY O2HB Art 98.9 (H) 94.0 - [facility] 97.0 % [facility] LABORATORY COHB Art 0.2 % [facility] LABORATORY Comment: Nonsmokers: 0.5-1.5% COHB Smokers: Variable, but usually less than 10% Toxic: 20-30% COHB Lethal: Greater than 60% COHB METHB Art 0.3 <=1.5 % [facility] LABORATORY Na Whole Blood 128 (L) 135 - 145 mmol/L [facility] LABORATORY K Whole Blood 5.6 (H) 3.5 - 5.0 mmol/L [facility] LABORATORY Comment: Please note: Patients with WBC >100,000 may have falsely elevated Potassium levels. Contact the Clinical Chemistry L aboratory if there are any questions. ICa Whole Blood 0.89 (Critical) 1.15 - 1.33 mmol/L [facility] LABORATORY Comment: Note: ??Total bilirubin higher than 20 m g/dL may lead to falsely low ionized calcium. CL Whole Blood 99 98 - 107 mmol/L [facility] LABORATORY Gluc Whole Bld 313 (H) 65 - 199 mg/dL [facility] LABORATORY Comment: Diabetes: >=200 mg/dL plus symp toms. Lactate WB 0.9 0.5 - 2.2 mmol/L [facility] LABORATORY Specimen Anatomical Collection Method Collection Time Receive d Time (Source) Location / / Volume Laterality Blood specimen 07/12/2016 2:08 PM 017 2:08 (specimen) EDT PM EDT Rolf Zayas MD CHEMISTRY ORDERABLES Performing Organization Address City/State/[place] [address] (ABNORMAL) BLOOD GAS 2 ARTERIAL (07/12/2016 12:47 PM EDT) Analysis Performed At Patho logist Time Signature pH Art 7.41 7.35 - [facility] 7.45 [facility] LABORATORY pCO2 Art 35 35 - 45 [facility] LABORATORY pO2 Art 269 (H) 85 - 104 [facility] LABORATORY HCO3 Art 21.7 20.0 - [facility] 26.0 [facility] mmol/L [facility] LABORATORY BE Art -2.9 -3.0 - 3.0 [facility] mmol/L [facility] LABORATORY Hgb Blood Gas 13.6 (L) 13.7 - [facility] 16.5 gm/dL [facility] LABORATORY O2HB Art 98.7 (H) 94.0 - [facility] 97.0 % [facility] LABORATORY COHB Art 0.7 % [facility] LAB[facility] Comment: Nonsmokers: 0.5-1.5% COHB Smokers: Variable, but usually less than 10% Toxic: 20-30% COHB Lethal: Greater than 60% COHB METHB Art 0.1 <=1.5 % [facility]ORAT[facility] Na Whole Blood 140 135 - 145 mmol/L [facility] K Whole Blood 4.1 3.5 - 5.0 mmol/L [facility] Comment: Please note: Patients with WBC >100,000 may have falsely elevated Potassium levels. Contact the Clinical Chemistry L aboratory if there are any questions. ICa Whole Blood 1.18 1.15 - 1.33 mmol/L [facility] Comment: Note: ??Total bilirubin higher than 20 m g/dL may lead to falsely low ionized calcium. CL Whole Blood 105 98 - 107 mmol/L [facility] Gluc Whole Bld 215 (H) 65 - 199 mg/dL [facility] LABORATORY Comment: Diabetes: >=200 mg/dL plus symp toms. Lactate WB 0.9 0.5 - 2.2 mmol/L [facility] LABORATORY Specimen Anatomical Collection Method Collection Time Receive d Time (Source) Location / / Volume Laterality Blood specimen 07/12/2016 12:47 7 (specimen) PM EDT 12:47 PM EDT Rolf Zayas MD CHEMISTRY ORDERABLES Performing Organization Address City/State/[place] [address] Prepare Coag Factors (Non-Hemophilia) (07/12/2016 10:45 AM EDT) P athologist Signature Dispensed? Yes [facility] LABOR[facility]ORY Specimen Anatomical Collection Method Collection Time Receive d Time (Source) Location / / Volume Laterality Blood specimen 07/12/2016 10:45 7 (specimen) AM EDT 10:43 AM EDT Resulting Agency Comment Spec In Lab Rolf Zayas MD BLOOD BANK ORDERABLES Performing Organization Address City/[facility]/ZIP Code Phon e Number [address] Prepare RBC (07/12/2016 10:45 AM EDT) P athologist Signature Dispensed? Yes [facility]OR[facility]ORY Specimen Anatomical Collection Method Collection Time Receive d Time (Source) Location / / Volume Laterality Blood specimen 07/12/2016 10:45 7 (specimen) AM EDT 10:43 AM EDT Resulting Agency Comment Spec In Lab Rolf Zayas MD BLOOD BANK ORDERABLES Performing Organization Address [facility] Code Phon e Number [address] POCT Glucose (07/12/2016 7:41 AM EDT) P athologist Signature POC Glucose 195 65 - 199 [facility] mg/dL [facility] LABORATORY Comment: Supplemental ranges: <140 mg/dL before meals <180 mg/dL all other times of the day Specimen Anatomical Collection Method Collection Time Receive d Time (Source) Location / / Volume Laterality Blood specimen 07/12/2016 7:41 AM 017 7:41 (specimen) EDT AM EDT Darrius Cotter MD POINT OF CARE TEST ORDERABLE S Performing Organization Address [facility]/[place] [address] (ABNORMAL) POCT Glucose (07/12/2016 4:34 AM EDT) P athologist Signature POC Glucose 201 (H) 65 - 199 [facility] mg/dL [facility] LABORATORY Comment: Supplemental ranges: <140 mg/dL before meals <180 mg/dL all other times of the day Specimen Anatomical Collection Method Collection Time Receive d Time (Source) Location / / Volume Laterality Blood specimen 07/12/2016 4:34 AM 017 4:34 (specimen) EDT AM EDT Darrius Cotter MD POINT OF CARE TEST ORDERABLE S Performing Organization Address City/State/ZIP Code Phon e Number [place] [phone]OS[address] (ABNORMAL) Differential, Automated (07/12/2016 4:34 AM EDT) [facility] Method Time Signature Neutrophils % 49.7 % [facility] LABORATORY Neutr Abs (ANC) 4.54 1.70 - [facility] 6.10 [facility] x10(3)/[facility] LABORATORY Lymphocytes % 39.5 % [facility] LABORATORY Lymphocytes Abs 3.6 (H) 0.9 - 3.2 [facility] x10(3)/[facility] LABORATORY Monocytes % 7.8 % [facility]ORY Monocyte Abs 0.7 0.3 - 0.9 [facility] x10(3)/[facility] LABORATORY Eosinophils % 2.2 % [facility]ORY Eosinophils Abs 0.2 0.0 - 0.4 [facility] x10(3)/[facility] LABORATORY Basophils % 0.4 % [facility] Basophils Abs 0.0 0.0 - 0.1 [facility] x10(3)/[facility] LABORATORY Immature Gran % 0.40 % [facility] LAB[facility]ATORY Comment: Immature granulocytes(IG's)percentage an d absolute count will include metamyelocytes, myelocytes, and promyelo cytes. Blood smears from CBCs yielding IG's will be scanned manually for concor dance. If this scan disagrees with the automated IG or if promyelocytes are not ed, a manual differential will be performed. Madhuri Gran Abs 0.04 0.00 - 0.04 x10(3)/[facility] LABORATORY Specimen Anatomical Collection Method Collection Time Receive d Time (Source) Location / / Volume Laterality Blood specimen 07/12/2016 4:34 AM 017 4:41 (specimen) EDT AM EDT Resulting Agency Comment Spec In Lab Darrius Cotter MD HEMATOLOGY ORDERABLES Performing Organization Address City/[facility]/[place] [address] Hemogram (07/12/2016 4:34 AM EDT) athologist Signature WBC 9.1 4.0 - 9.5 [facility] x10(3)/[facility] LABORATORY RBC 4.81 4.58 - [facility]54 [facility] x10(6)/[facility] LABORATORY Hemoglobin 14.5 13.7 - [facility] 16.5 gm/dL [facility] LABORATORY Hematocrit 43.5 40.5 - [facility] 48.5 % [facility] LABORATORY MCV 90.4 82.9 - [facility] 93[facility]1 [facility] LABORATORY MCH 30.1 27.5 - [facility] 32.1 pg [facility] LABORATORY MCHC 33.3 32.0 - [facility] 35.7 gm/dL [facility] LABORATORY Platelets 181 145 - 357 [facility] x10(3)/[facility] LABORATORY RDWSD 43.1 36.0 - [facility] 45.0 [facility] LABORATORY RDWCV 13.0 11.4 - [facility] 13.8 % [facility] LABORATORY MPV 10.7 7.6 - 12.9 [facility] LABORATORY nRBC % Auto 0.0 % [facility] LABORATORY nRBC Abs Auto 0.000 0.000 - [facility] 0.000 [facility] x10(3)/[facility] LABORATORY Specimen Anatomical Collection Method Collection Time Receive d Time (Source) Location / / Volume Laterality Blood specimen 07/12/2016 4:34 AM 017 4:41 (specimen) EDT AM EDT Resulting Agency Comment Spec In Lab Darrius Cotter MD HEMATOLOGY ORDERABLES Performing Organization Address City/State/[place] [address] APTT (07/12/2016 4:34 AM EDT) athologist Signature PTT 26 25 - [address] [facility] LABORATORY Comment: The recommended therapeutic range for fu ll dose, unfractionated heparin at [facility] is 80 ? 114 seconds. The use of the anti-Xa (heparin) level rather than the PTT is recommended for monitoring anticoagul ation intensity in critically ill patients receiving unfractionated hepari n by continuous IV infusion. Specimen Anatomical Collection Method Collection Time Receive d Time (Source) Location / / Volume Laterality Blood specimen 07/12/2016 4:34 AM 017 4:41 (specimen) EDT AM EDT Resulting Agency Comment Spec In Lab Darrius Cotter MD HEMATOLOGY ORDERABLES Performing Organization Address City/State/[place] [address] Prothrombin Time (07/12/2016 4:34 AM EDT) athologist Signature PT 12.9 12.0 - 15.0 [facility] LABORATORY Comment: An INR <2.0 indicates adequate [...] be appropriate depending on c linical circumstances. INR 0.9 0.9 - 1.1 [facility] LABORATORY Specimen Anatomical Collection Method Collection Time Receive d Time (Source) Location / / Volume Laterality Blood specimen 07/12/2016 4:34 AM 017 4:41 (specimen) EDT AM EDT Resulting Agency Comment Spec In Lab Darrius Cotter MD HEMATOLOGY ORDERABLES Performing Organization Address City/[facility]/[place] [address] Magnesium (07/12/2016 4:34 AM EDT) athologist Signature Magnesium 0.69 0.69 - 1.07 [facility] mmol/L [facility] LABORATORY Specimen Anatomical Collection Method Collection Time Receive d Time (Source) Location / / Volume Laterality Blood specimen 07/12/2016 4:34 AM 017 4:41 (specimen) EDT AM EDT Resulting Agency Comment Spec In Lab Darrius Cotter MD CHEMISTRY ORDERABLES Performing Organization Address City/[facility]/[place] [address] (ABNORMAL) BMP w/fasting Glucose (07/12/2016 4:34 AM EDT) athologist Signature Glucose 208 (H) 65 - 99 [facility] Fasting mg/dL [facility] LABORATORY Comment: ?Fasting* Glucose Interpretive C [...] of Diabetes Mellitus, Position Statement from the [place] [employer]. ??Diabete s Care, Volume 33, Supplement 1, Apr 2009 BUN 13 10 - 20 mg/dL [facility] LABORATORY Creatinine 0.93 0.80 - 1.50 mg/dL [facility] LABORATORY Comment: Please note that the pediatric reference intervals supplied above were not validated at [facility]. Results from pediatri c patients should be interpreted in conjunction to the patient's age, height and muscle mass. Sodium 138 135 - 145 mmol/L [facility] LABOR[facility] Potassium 4.1 3.5 - 5.0 mmol/L [facility]OR[facility] Comment: Please note: ??Patients with WBC >100,00 0 may have falsely elevated Potassium levels. ??For accurate Potassium quantif ication in these patients send serum separator tube (gold top) for subsequent determinations. ??Contact the Clinical Chemistry Laboratory if there are any qu estions. Chloride 99 98 - 107 mmol/L [facility] CO2 24 22 - 31 mmol/L [facility] Anion Gap 15 5 - 15 mmol/L [facility]OR[facility] Calcium 9.4 8.5 - 10.5 mg/dL [facility] Estimated GFR >60 >=60 [facility] Comment: This estimated GFR (eGFR) value was calc ulated using the MDRD equation which has been validated on patients between t he ages of 18 and 70. The MDRD should not be used to assess kidney function in patients < 18 years of age or in patients with extremes of body mass, or in patients with acute kidney failure. This value should be multiplied by 1.2 f or patients. For further information please copy and past e the following links into your internet browser. [email or web address] Specimen Anatomical Collection Method Collection Time Receive d Time (Source) Location / / Volume Laterality Blood specimen 07/12/2016 4:34 AM 017 4:41 (specimen) EDT AM EDT Resulting Agency Comment Spec In Lab Darrius Cotter MD CHEMISTRY ORDERABLES Performing Organization Address City/[facility]/ZIP Code Phon e Number [address] POCT Glucose (07/11/2016 11:38 PM EDT) P athologist Signature POC Glucose 118 65 - 199 [facility] mg/dL [facility] Comment: Supplemental ranges: <140 mg/dL before meals <180 mg/dL all other times of the day Specimen Anatomical Collection Method Collection Time Receive d Time (Source) Location / / Volume Laterality Blood specimen 07/11/2016 11:38 7 (specimen) PM EDT 11:38 PM EDT Darrius Cotter MD POINT OF CARE TEST ORDERABLE S Performing Organization Address City/[facility]/[place] [address] (ABNORMAL) POCT Glucose (07/11/2016 8:00 PM EDT) P athologist Signature POC Glucose 205 (H) 65 - 199 [facility] Comment: Supplemental ranges: <140 mg/dL before meals <180 mg/dL all other times of the day Specimen Anatomical Collection Method Collection Time Receive d Time (Source) Location / / Volume Laterality Blood specimen 07/11/2016 8:00 PM 017 8:00 (specimen) EDT PM EDT Darrius Cotter MD POINT OF CARE TEST ORDERABLE S Performing Organization Address City/State/ZIP Code Phon e Number [facility] [place] [address] XR Chest PA & Lateral (Generic) (07/11/2016 5:29 PM EDT) Anatomical Region Laterality Modality Chest N/A Digital Radiography Specimen (Source) Anatomical Location Collection Method / Collectio n Time Received Time / Laterality Volume Impressions 07/11/2016 5:31 PM EDT No active cardiopulmonary pathology identified. Narrative 07/11/2016 5:31 PM EDT EXAMINATION: XR CHEST PA AND LATERAL (GENERIC) CLINICAL HISTORY: pre-op for OR tuesday TECHNIQUE: PA and lateral views of the c hest. ? COMPARISON: None. FINDINGS: The lungs appear clear. The ca rdiomediastinal silhouette, charbel, pulmonary vessels, and pleura are within normal limits. No significant osseous findings are seen. Procedure Note Catalina Timmons MD - 07/11/2016Formatt ing of this note might be different from the original. EXAMINATION: XR CHEST PA AND LATERAL (GE NERIC) CLINICAL HISTORY: pre-op for OR tuesday TECHNIQUE: PA and lateral views of the c hest. COMPARISON: None. FINDINGS: The lungs appear clear. The ca rdiomediastinal silhouette, charbel, pulmonary vessels, and pleura are within normal limits. No significant osseous findings are seen. IMPRESSION No active cardiopulmonary pathology iden tified. Darrius Cotter MD IMG DX ORDERABLES POCT Glucose (07/11/2016 4:10 PM EDT) P athologist Signature POC Glucose 175 65 - 199 [facility] mg/dL [facility] LABOR[facility]ORY Comment: Supplemental ranges: <140 mg/dL before meals <180 mg/dL all other times of the day Specimen Anatomical Collection Method Collection Time Receive d Time (Source) Location / / Volume Laterality Blood specimen 07/11/2016 4:10 PM 017 4:10 (specimen) EDT PM EDT Darrius Cotter MD POINT OF CARE TEST ORDERABLE S Performing Organization Address City/State/[place] [address] Angiogram Pelvis (07/11/2016 3:21 PM EDT) Anatomical Region Laterality Modality Abdomen, Pelvis Computed Tomography Specimen (Source) Anatomical Location Collection Method / Collectio n Time Received Time / Laterality Volume Impressions 07/11/2016 3:43 PM EDT Post instrumentation change by the left groin. However, no CT findings for pseudoaneurysm or Vistaril are identifie d. If concern remains for small vascular lesion, consider follow-up study with va scular duplex. 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 Narrative 07/11/2016 3:43 PM EDT EXAMINATION: CT ANGIOGRAM PELVIS CLINICAL HISTORY: evaluate for pseudoane urysm of left femoral - recent cath TECHNIQUE: Axial contiguous sections are obtained to the pelvis via helical acquisition after intravenous administra tion of 110 cc Omnipaque 350. Thin section reconstructions in coronal and s agittal reformatted images were generated. COMPARISON: None FINDINGS: Mixed-density atherosclerotic plaque is seen throughout the distal abdominal aorta and bilateral iliac arteries, with moderate to severe stenosis of the mid right external iliac artery, with short- segment critical stenosis, see series 5 images 45 through 48, and moderate to se devin stenosis of the proximal right SFA. Moderate to severe stenosis of the left common iliac artery just before the bifurcation, see series 5 image 31 and o ccluded left internal iliac artery proximally with minimal distal contrast opacification consistent with reconstitution via collaterals. A few sc attered moderate stenoses of the external iliac artery are noted. Small caliber/stenotic left superficial femoral artery. However, no usual structure with contrast opacification or early venous ossification identified to indicate a pseudoaneurysm or fistula. High attenuation fluid stranding in this region compatible with posterior instrumentation change/hematoma. No free air or free fluid in the pelvis. Sigmoid diverticula without findings for diverticulitis. Otherwise, the image d portions of solid and hollow viscera of the pelvis are grossly unremarkable. No significant osseous findings. Procedure Note Catalina Timmons MD - 07/11/2016Formatt ing of this note might be different from the original. EXAMINATION: CT ANGIOGRAM PELVIS CLINICAL HISTORY: evaluate for pseudoane urysm of left femoral - recent cath TECHNIQUE: Axial contiguous sections are obtained to the pelvis via helical acquisition after intravenous administra tion of 110 cc Omnipaque 350. Thin section reconstructions in coronal and s agittal reformatted images were generated. COMPARISON: None FINDINGS: Mixed-density atherosclerotic plaque is seen throughout the distal abdominal aorta and bilateral iliac arteries, with moderate to severe stenosis of the mid right external iliac artery, with short- segment critical stenosis, see series 5 images 45 through 48, and moderate to se devin stenosis of the proximal right SFA. Moderate to severe stenosis of the left common iliac artery just before the bifurcation, see series 5 image 31 and o ccluded left internal iliac artery proximally with minimal distal contrast opacification consistent with reconstitution via collaterals. A few sc attered moderate stenoses of the external iliac artery are noted. Small caliber/stenotic left superficial femoral artery. However, no usual structure with contrast opacification or early venous ossification identified to indicate a pseudoaneurysm or fistula. High attenuation fluid stranding in this region compatible with posterior instrumentation change/hematoma. No free air or free fluid in the pelvis. Sigmoid diverticula without findings for diverticulitis. Otherwise, the image d portions of solid and hollow viscera of the pelvis are grossly unremarkable. No significant osseous findings. IMPRESSION Post instrumentation change by the left groin. However, no CT findings for pseudoaneurysm or Vistaril are identifie d. If concern remains for small vascular lesion, consider follow-up study with va scular duplex. 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 Darrius Cotter MD IMG CT ORDERABLES ABORH Recheck Status (07/11/2016 2:44 PM EDT) [facility] Method Time Signature ABORH Recheck Order Placed [facility] LABORATORY ABORH Type Complete [facility] LABORATORY Specimen Anatomical Collection Method Collection Time Receive d Time (Source) Location / / Volume Laterality Blood specimen 07/11/2016 2:44 PM 017 3:15 (specimen) EDT PM EDT Resulting Agency Comment Spec In Lab Darrius Cotter MD BLOOD BANK ORDERABLES Performing Organization Address City/State/[place] [address] Antibody screen (07/11/2016 2:44 PM EDT) Patholo gist Method Time Signature Ab Screen Negative [facility] LABORATORY Expires at 07/14/2016 JW OREILLY [id number] on: [facility] LABORATORY Specimen Anatomical Collection Method Collection Time Receive d Time (Source) Location / / Volume Laterality Blood specimen 07/11/2016 2:44 PM 017 3:15 (specimen) EDT PM EDT Resulting Agency Comment Spec In Lab Darrius Cotter MD BLOOD BANK ORDERABLES Performing Organization Address City/[facility]/ZIP Code Phon e Number [address] ABO/Rh Typing (07/11/2016 2:44 PM EDT) P athologist Signature ABORh Type A Pos [facility] LABORATORY Specimen Anatomical Collection Method Collection Time Receive d Time (Source) Location / / Volume Laterality Blood specimen 07/11/2016 2:44 PM 017 3:15 (specimen) EDT PM EDT Resulting Agency Comment Spec In Lab Darrius Cotter MD BLOOD BANK ORDERABLES Performing Organization Address [facility] [place] [address] Arterial Duplex Leg, Unil (07/11/2016 12:31 PM EDT) Component Value Ref Test Analysis Performed At [facility] gist Range Method Time Signature VB Text Department: Vascular Surgery Lab VASCUBASE Report Patient: [id number] (BERTIN BERRY) CPT: 31796 ICD10: T82.590A Referring Physician: DARRIUS COTTER ?? Indications: ??Left groin pain/swelling, ? pseudoaneurysm. ICD10 Diagnosis Code: T82.590A Findings: Left ?PSV ( cm/s) ??EDV ?? Common Femoral Artery, Proximal ?232 ?? 2 6 ?? Common femoral artery, Distal ?249 ?? 21 ?? Profunda Femoris Artery, Proximal ?196 ?? 10 ?? Superficial Femoral Artery, Proximal ? 109 ?? 12 ? ? Interpretation: Left: The common femoral artery has elevated velocities (249 cm/s) with monophasic Doppler waveforms. The common femoral vein has continuous Doppler waveforms with an arterial c omponent suggesting possible arteriovenous fistula. Due to patient pain and inability to tolerate pr essure to the area, unable to identify the actual fistula connection. The superficial femoral artery and profunda artery have norm al triphasic Doppler waveforms suggesting the fistula is located in the common femoral artery to common femoral vein. No obvious pseudoaneurysm identified. Notification: Dr. Zuleta was notified of the results. Comparison: ??No previous study in our vascular lab da tabase for comparison. Electronically Signed by: NARESH FERNANDEZ on 2016-07-12 10:29: 50 PM VB Text End of Report VASCUBASE Report Specimen (Source) Anatomical Collection Method Collection Time Re ceived Time Location / / Volume Laterality 07/11/2016 12:31 PM EDT Darrius Cotter MD VASCULAR ORDERABLES Performing Organization Address City/State/ZIP Code Phon e Number VASCUBASE POCT Glucose (07/11/2016 11:40 AM EDT) athologist Signature POC Glucose 183 65 - 199 [facility] mg/dL [facility] LABORATORY Comment: Supplemental ranges: <140 mg/dL before meals <180 mg/dL all other times of the day Specimen Anatomical Collection Method Collection Time Receive d Time (Source) Location / / Volume Laterality Blood specimen 07/11/2016 11:40 7 (specimen) AM EDT 11:40 AM EDT Darrius Cotter MD POINT OF CARE TEST ORDERABLE S Performing Organization Address City/State/[place] [address] POCT Glucose (07/11/2016 7:38 AM EDT) P athologist Signature POC Glucose 145 65 - 199 [facility] mg/dL [facility] LAB[facility]ORY Comment: Supplemental ranges: <140 mg/dL before meals <180 mg/dL all other times of the day Specimen Anatomical Collection Method Collection Time Receive d Time (Source) Location / / Volume Laterality Blood specimen 07/11/2016 7:38 AM 017 7:38 (specimen) EDT AM EDT Darrius Cotter MD POINT OF CARE TEST ORDERABLE S Performing Organization Address City/[facility]/[place] [address] (ABNORMAL) APTT (07/11/2016 4:04 AM EDT) P athologist Signature PTT 90 (H) 25 - [address] [facility] Comment: The recommended therapeutic range for fu ll dose, unfractionated heparin at [facility] is 80 ? 114 seconds. The use of the anti-Xa (heparin) level rather than the PTT is recommended for monitoring anticoagul ation intensity in critically ill patients receiving unfractionated hepari n by continuous IV infusion. Specimen Anatomical Collection Method Collection Time Receive d Time (Source) Location / / Volume Laterality Blood specimen 07/11/2016 4:04 AM 017 4:25 (specimen) EDT AM EDT Resulting Agency Comment Spec In Lab Darrius Cotter MD HEMATOLOGY ORDERABLES Performing Organization Address City/[facility]/[place] [address] (ABNORMAL) Differential, Automated (07/11/2016 4:04 AM EDT) Patholo gist Method Time Signature Neutrophils % 42.3 % [facility] LABORATORY Neutr Abs (ANC) 4.51 1.70 - [facility] 6.10 [facility] x10(3)/[facility] LABORATORY Lymphocytes % 46.7 % [facility]OR[facility] Lymphocytes Abs 5.0 (H) 0.9 - 3.2 [facility] x10(3)/[facility] LABORATORY Monocytes % 7.5 % [facility] Monocyte Abs 0.8 0.3 - 0.9 [facility] x10(3)/[facility] LABORATORY Eosinophils % 2.3 % [facility] Eosinophils Abs 0.2 0.0 - 0.4 [facility] x10(3)/[facility] LABORATORY Basophils % 0.5 % [facility] Basophils Abs 0.0 0.0 - 0.1 [facility] x10(3)/[facility] LABORATORY Immature Gran % 0.70 % [facility] Comment: Immature granulocytes(IG's)percentage an d absolute count will include metamyelocytes, myelocytes, and promyelo cytes. Blood smears from CBCs yielding IG's will be scanned manually for concor dance. If this scan disagrees with the automated IG or if promyelocytes are not ed, a manual differential will be performed. Madhuri Gran Abs 0.07 (H) 0.00 - 0.04 x10(3)/[facility] LABORATORY Specimen Anatomical Collection Method Collection Time Receive d Time (Source) Location / / Volume Laterality Blood specimen 07/11/2016 4:04 AM 017 4:25 (specimen) EDT AM EDT Resulting Agency Comment Spec In Lab Darrius Cotter MD HEMATOLOGY ORDERABLES Performing Organization Address City/State/[place] [address] (ABNORMAL) Hemogram (07/11/2016 4:04 AM EDT) Analysis Performed At Patho logist Time Signature WBC 10.6 (H) 4.0 - 9.5 [facility] x10(3)/[facility] LABORATORY RBC 5.05 4.58 - [facility] 5.54 [facility] x10(6)/[facility] LABORATORY Hemoglobin 15.0 13.7 - [facility] 16.5 gm/dL [facility] LABORATORY Hematocrit 45.5 40.5 - [facility] 48.5 % [facility] LABORATORY MCV 90.1 82.9 - [facility] 93.1 fL [facility] LABORATORY MCH 29.7 27.5 - [facility] 32.1 pg [facility] LABORATORY MCHC 33.0 32.0 - [facility] 35.7 gm/dL [facility] LABORATORY Platelets 206 145 - 357 [facility] x10(3)/[facility] LABORATORY RDWSD 44.0 36.0 - [facility] 45.0 [facility] LABORATORY RDWCV 13.2 11.4 - [facility] 13.8 % [facility] LABORATORY MPV 11.1 7.6 - 12.9 [facility] LABORATORY nRBC % Auto 0.0 % [facility] LABORATORY nRBC Abs Auto 0.000 0.000 - [facility] 0.000 [facility] x10(3)/[facility] LABORATORY Specimen Anatomical Collection Method Collection Time Receive d Time (Source) Location / / Volume Laterality Blood specimen 07/11/2016 4:04 AM 017 4:25 (specimen) EDT AM EDT Resulting Agency Comment Spec In Lab Darrius Cotter MD HEMATOLOGY ORDERABLES Performing Organization Address City/State/[place] [address] (ABNORMAL) Basic Metabolic Panel (non-fasting) (07/11/2016 4:04 AM EDT) athologist Signature Glucose Lvl 223 (H) 65 - 199 [facility] mg/dL [facility] LABORATORY Comment: Diabetes: >=200 mg/dL plus symp toms BUN 11 10 - 20 mg/dL [facility] LABORATORY Creatinine 0.82 0.80 - 1.50 mg/dL [facility] LABORATORY Comment: Please note that the pediatric reference intervals supplied above were not validated at [facility]. Results from pediatri c patients should be interpreted in conjunction to the patient's age, height and muscle mass. Sodium 139 135 - 145 mmol/L [facility]ORAT[facility] Potassium 4.2 3.5 - 5.0 mmol/L [facility]OR[facility] Comment: Please note: ??Patients with WBC >100,00 0 may have falsely elevated Potassium levels. ??For accurate Potassium quantif ication in these patients send serum separator tube (gold top) for subsequent determinations. ??Contact the Clinical Chemistry Laboratory if there are any qu estions. Chloride 97 (L) 98 - 107 mmol/L [facility] CO2 27 22 - 31 mmol/L [facility] Anion Gap 15 5 - 15 mmol/L [facility] Calcium 9.5 8.5 - 10.5 mg/dL [facility] Estimated GFR >60 >=60 [facility] Comment: This estimated GFR (eGFR) value was calc ulated using the MDRD equation which has been validated on patients between t he ages of 18 and 70. The MDRD should not be used to assess kidney function in patients < 18 years of age or in patients with extremes of body mass, or in patients with acute kidney failure. This value should be multiplied by 1.2 f or patients. For further information please copy and past e the following links into your internet browser. [email or web address]/DHnkdep [email or web address]/DHMCnkf Specimen Anatomical Collection Method Collection Time Receive d Time (Source) Location / / Volume Laterality Blood specimen 07/11/2016 4:04 AM 017 4:25 (specimen) EDT AM EDT Resulting Agency Comment Spec In Lab Darrius Cotter MD CHEMISTRY ORDERABLES Performing Organization Address City/State/ZIP Code Phon e Number [address] POCT Glucose (07/11/2016 4:02 AM EDT) P athologist Signature POC Glucose 198 65 - 199 [facility] mg/dL [facility] Comment: Supplemental ranges: <140 mg/dL before meals <180 mg/dL all other times of the day Specimen Anatomical Collection Method Collection Time Receive d Time (Source) Location / / Volume Laterality Blood specimen 07/11/2016 4:02 AM 017 4:02 (specimen) EDT AM EDT Darrius Cotter MD POINT OF CARE TEST ORDERABLE S Performing Organization Address City/State/ZIP Code Phon e Number [address] POCT Glucose (07/11/2016 12:23 AM EDT) P athologist Signature POC Glucose 156 65 - 199 [facility] mg/dL [facility] Comment: Supplemental ranges: <140 mg/dL before meals <180 mg/dL all other times of the day Specimen Anatomical Collection Method Collection Time Receive d Time (Source) Location / / Volume Laterality Blood specimen 07/11/2016 12:23 7 (specimen) AM EDT 12:23 AM EDT Darrius Cotter MD POINT OF CARE TEST ORDERABLE S Performing Organization Address City/[facility]/[place] [address] (ABNORMAL) APTT (07/10/2016 8:35 PM EDT) athologist Signature PTT 90 (H) 25 - [address] [facility] Comment: The recommended therapeutic range for fu ll dose, unfractionated heparin at [facility] is 80 ? 114 seconds. The use of the anti-Xa (heparin) level rather than the PTT is recommended for monitoring anticoagul ation intensity in critically ill patients receiving unfractionated hepari n by continuous IV infusion. Specimen Anatomical Collection Method Collection Time Receive d Time (Source) Location / / Volume Laterality Blood specimen 07/10/2016 8:35 PM 017 9:10 (specimen) EDT PM EDT Resulting Agency Comment Spec In Lab Darrius Cotter MD HEMATOLOGY ORDERABLES Performing Organization Address City/[facility]/[place] [address] POCT Glucose (07/10/2016 7:47 PM EDT) athologist Signature POC Glucose 197 65 - 199 [facility] mg/dL [facility] Comment: Supplemental ranges: <140 mg/dL before meals <180 mg/dL all other times of the day Specimen Anatomical Collection Method Collection Time Receive d Time (Source) Location / / Volume Laterality Blood specimen 07/10/2016 7:47 PM 017 7:47 (specimen) EDT PM EDT Darrius Cotter MD POINT OF CARE TEST ORDERABLE S Performing Organization Address City/State/[place] [address] POCT Glucose (07/10/2016 4:20 PM EDT) athologist Signature POC Glucose 195 65 - 199 [facility] mg/dL [facility] Comment: Supplemental ranges: <140 mg/dL before meals <180 mg/dL all other times of the day Specimen Anatomical Collection Method Collection Time Receive d Time (Source) Location / / Volume Laterality Blood specimen 07/10/2016 4:20 PM 017 4:20 (specimen) EDT PM EDT Darrius Cotter MD POINT OF CARE TEST ORDERABLE S Performing Organization Address City/[facility]/[place] [address] (ABNORMAL) POCT Glucose (07/10/2016 12:24 PM EDT) athologist Signature POC Glucose 221 (H) 65 - 199 [facility] Comment: Supplemental ranges: <140 mg/dL before meals <180 mg/dL all other times of the day Specimen Anatomical Collection Method Collection Time Receive d Time (Source) Location / / Volume Laterality Blood specimen 07/10/2016 12:24 7 (specimen) PM EDT 12:24 PM EDT Darrius Cotter MD POINT OF CARE TEST ORDERABLE S Performing Organization Address [facility] [place] [address] (ABNORMAL) APTT (07/10/2016 12:02 PM EDT) athologist Signature PTT 58 (H) 25 - [address] [facility] Comment: The recommended therapeutic range for fu ll dose, unfractionated heparin at [facility] is 80 ? 114 seconds. The use of the anti-Xa (heparin) level rather than the PTT is recommended for monitoring anticoagul ation intensity in critically ill patients receiving unfractionated hepari n by continuous IV infusion. Specimen Anatomical Collection Method Collection Time Receive d Time (Source) Location / / Volume Laterality Blood specimen 07/10/2016 12:02 7 (specimen) PM EDT 12:11 PM EDT Resulting Agency Comment Spec In Lab Darrius Cotter MD HEMATOLOGY ORDERABLES Performing Organization Address City/[facility]/[place] [address] [facility] [address] POCT Glucose (07/10/2016 7:57 AM EDT) P athologist Signature POC Glucose 194 65 - 199 [facility] mg/dL [facility] Comment: Supplemental ranges: <140 mg/dL before meals <180 mg/dL all other times of the day Specimen Anatomical Collection Method Collection Time Receive d Time (Source) Location / / Volume Laterality Blood specimen 07/10/2016 7:57 AM 017 7:57 (specimen) EDT AM EDT Darrius Cotter MD POINT OF CARE TEST ORDERABLE S Performing Organization Address City/State/ZIP Code Phon e Number [address] (ABNORMAL) Differential, Automated (07/10/2016 5:04 AM EDT) Patholo gist Method Time Signature Neutrophils % 46.1 % [facility] Neutr Abs (ANC) 5.02 1.70 - [facility] 6.10 [facility] x10(3)/[facility] LABORATORY Lymphocytes % 43.6 % [facility] Lymphocytes Abs 4.8 (H) 0.9 - 3.2 [facility] x10(3)/[facility] LABORATORY Monocytes % 7.3 % [facility] Monocyte Abs 0.8 0.3 - 0.9 [facility] x10(3)/[facility] LABORATORY Eosinophils % 1.5 % [facility] Eosinophils Abs 0.2 0.0 - 0.4 [facility] x10(3)/[facility] LABORATORY Basophils % 0.6 % [facility] Basophils Abs 0.1 0.0 - 0.1 [facility] x10(3)/[facility] LABORATORY Immature Gran % 0.90 % [facility] Comment: Immature granulocytes(IG's)percentage an d absolute count will include metamyelocytes, myelocytes, and promyelo cytes. Blood smears from CBCs yielding IG's will be scanned manually for concandrew danluis. If this scan disagrees with the automated IG or if promyelocytes are not ed, a manual differential will be performed. Madhuri Gran Abs 0.10 (H) 0.00 - 0.04 x10(3)/[facility] LABORATORY Specimen Anatomical Collection Method Collection Time Receive d Time (Source) Location / / Volume Laterality Blood specimen 07/10/2016 5:04 AM 017 5:10 (specimen) EDT AM EDT Resulting Agency Comment Spec In Lab Darrius Cotter MD HEMATOLOGY ORDERABLES Performing Organization Address City/State/[place] [address] (ABNORMAL) Hemogram (07/10/2016 5:04 AM EDT) Analysis Performed At Patho logist Time Signature WBC 10.9 (H) 4.0 - 9.5 [facility] x10(3)/[facility] LABORATORY RBC 5.08 4.58 - [facility] 5.54 [facility] x10(6)/[facility] LABORATORY Hemoglobin 14.9 13.7 - [facility] 16.5 gm/dL [facility] Hematocrit 44.7 40.5 - [facility] 48.5 % [facility] MCV 88.0 82.9 - [facility] 93.1 [facility] LABORATORY MCH 29.3 27.5 - [facility] 32.1 pg [facility] MCHC 33.3 32.0 - [facility] 35.7 gm/dL [facility] Platelets 180 145 - 357 [facility] x10(3)/[facility] LABORATORY RDWSD 42.4 36.0 - [facility] 45.0 [facility] LABORATORY RDWCV 13.0 11.4 - [facility] 13.8 % [facility] MPV 11.1 7.6 - 12.9 [facility] LABORATORY nRBC % Auto 0.0 % [facility] nRBC Abs Auto 0.000 0.000 - [facility] 0.000 [facility] x10(3)/[facility] LABORATORY Specimen Anatomical Collection Method Collection Time Receive d Time (Source) Location / / Volume Laterality Blood specimen 07/10/2016 5:04 AM 017 5:10 (specimen) EDT AM EDT Resulting Agency Comment Spec In Lab Darrius Cotter MD HEMATOLOGY ORDERABLES Performing Organization Address City/[facility]/[place] [address] (ABNORMAL) APTT (07/10/2016 5:03 AM EDT) P athologist Signature PTT 64 (H) 25 - [address] [facility] Comment: The recommended therapeutic range for fu ll dose, unfractionated heparin at [facility] is 80 ? 114 seconds. The use of the anti-Xa (heparin) level rather than the PTT is recommended for monitoring anticoagul ation intensity in critically ill patients receiving unfractionated hepari n by continuous IV infusion. Specimen Anatomical Collection Method Collection Time Receive d Time (Source) Location / / Volume Laterality Blood specimen 07/10/2016 5:03 AM 017 5:10 (specimen) EDT AM EDT Resulting Agency Comment Spec In Lab Darrius Cotter MD HEMATOLOGY ORDERABLES Performing Organization Address City/[facility]/ZIP Code Phon e Number [address] POCT Glucose (07/10/2016 4:27 AM EDT) athologist Signature POC Glucose 194 65 - 199 [facility] mg/dL [facility] Comment: Supplemental ranges: <140 mg/dL before meals <180 mg/dL all other times of the day Specimen Anatomical Collection Method Collection Time Receive d Time (Source) Location / / Volume Laterality Blood specimen 07/10/2016 4:27 AM 017 4:27 (specimen) EDT AM EDT Darrius Cotter MD POINT OF CARE TEST ORDERABLE S Performing Organization Address City/[facility]/ZIP Code Phon e Number [address] POCT Glucose (07/09/2016 11:43 PM EDT) P athologist Signature POC Glucose 148 65 - 199 [facility] Comment: Supplemental ranges: <140 mg/dL before meals <180 mg/dL all other times of the day Specimen Anatomical Collection Method Collection Time Receive d Time (Source) Location / / Volume Laterality Blood specimen 07/09/2016 11:43 7 (specimen) PM EDT 11:43 PM EDT Darrius Cotter MD POINT OF CARE TEST ORDERABLE S Performing Organization Address City/State/[place] [address] POCT Glucose (07/09/2016 10:31 PM EDT) athologist Signature POC Glucose 180 65 - 199 [facility] mg/dL [facility] Comment: Supplemental ranges: <140 mg/dL before meals <180 mg/dL all other times of the day Specimen Anatomical Collection Method Collection Time Receive d Time (Source) Location / / Volume Laterality Blood specimen 07/09/2016 10:31 7 (specimen) PM EDT 10:31 PM EDT Darrius Cotter MD POINT OF CARE TEST ORDERABLE S Performing Organization Address City/State/[place] [address] (ABNORMAL) POCT Glucose (07/09/2016 8:37 PM EDT) athologist Signature POC Glucose 262 (H) 65 - 199 [facility] Comment: Supplemental ranges: <140 mg/dL before meals <180 mg/dL all other times of the day Specimen Anatomical Collection Method Collection Time Receive d Time (Source) Location / / Volume Laterality Blood specimen 07/09/2016 8:37 PM 017 8:37 (specimen) EDT PM EDT Darrius Cotter MD POINT OF CARE TEST ORDERABLE S Performing Organization Address City/State/[place] [address] Potassium (07/09/2016 7:47 PM EDT) athologist Signature Potassium 4.5 3.5 - 5.0 [facility] mmol/L [facility] Comment: Please note: ??Patients with WBC >100,00 0 may have falsely elevated Potassium levels. ??For accurate Potassium quantif ication in these patients send serum separator tube (gold top) for subsequent determinations. ??Contact the Clinical Chemistry Laboratory if there are any qu estions. Specimen Anatomical Collection Method Collection Time Receive d Time (Source) Location / / Volume Laterality Blood specimen Venous Draw / 07/09/2016 7:47 PM 2016 7:55 (specimen) Unknown EDT PM EDT Resulting Agency Comment Spec In Lab Darrius Cotter MD CHEMISTRY ORDERABLES Performing Organization Address [facility] [place] [address] (ABNORMAL) Cardiac Enzymes (07/09/2016 7:47 PM EDT) athologist Signature Troponin-T 2.03 (H) <=0.03 [facility] ng/mL [facility] Comment: Result rechecked. 0.03 ng/mL: Represents the 99th percenti le upper reference limit for normals. >0.03 ng/mL: Elevated cardiac troponin T level indicative of myocardial damage. Diagnosis of acute, evolving or recent M I requires a typical rise and gradual fall of cTnT with at least ONE of the fo llowing: a) Ischemic symptoms b) Development of pathologic Q waves on the ECG c) ECG changes indicative of eschemia (S -T segment elevation/depression) d) Coronary artery intervention Serial bloods should be obtained for catrachita ting on admission, at 6 to 9 hrs and again at 12 to 24 hrs if earlier samples are negative and the clinical index of suspicion is high. Reference: [Myocardial infarction redefined? a consensus document of the [employer] Society of Cardiology/[employer] Committee for the redefinition of myocardial infarction. ? ?Journal of the [employer] 2000; 36: 959-969] CK, Total 921 (H) 0 - 200 unit/L [facility] Specimen Anatomical Collection Method Collection Time Receive d Time (Source) Location / / Volume Laterality Blood specimen 07/09/2016 7:47 PM 017 7:55 (specimen) EDT PM EDT Resulting Agency Comment Spec In Lab Darrius Cotter MD CHEMISTRY ORDERABLES Performing Organization Address City/State/[place] [address] (ABNORMAL) POCT Glucose (07/09/2016 7:38 PM EDT) P athologist Signature POC Glucose 290 (H) 65 - 199 [facility]/dL [facility] Comment: Supplemental ranges: <140 mg/dL before meals <180 mg/dL all other times of the day Specimen Anatomical Collection Method Collection Time Receive d Time (Source) Location / / Volume Laterality Blood specimen 07/09/2016 7:38 PM 017 7:38 (specimen) EDT PM EDT Darrius Cotter MD POINT OF CARE TEST ORDERABLE S Performing Organization Address City/State/[place] [address] (ABNORMAL) POCT Glucose (07/09/2016 5:28 PM EDT) athologist Signature POC Glucose 275 (H) 65 - 199 [facility]/dL [facility] Comment: Supplemental ranges: <140 mg/dL before meals <180 mg/dL all other times of the day Specimen Anatomical Collection Method Collection Time Receive d Time (Source) Location / / Volume Laterality Blood specimen 07/09/2016 5:28 PM 017 5:28 (specimen) EDT PM EDT Darrius Cotter MD POINT OF CARE TEST ORDERABLE S Performing Organization Address City/State/[place] [address] (ABNORMAL) POCT Glucose (07/09/2016 11:16 AM EDT) P athologist Signature POC Glucose 291 (H) 65 - 199 [facility] mg/dL [facility] Comment: Supplemental ranges: <140 mg/dL before meals <180 mg/dL all other times of the day Specimen Anatomical Collection Method Collection Time Receive d Time (Source) Location / / Volume Laterality Blood specimen 07/09/2016 11:16 7 (specimen) AM EDT 11:16 AM EDT Darrius Cotter MD POINT OF CARE TEST ORDERABLE S Performing Organization Address City/State/ZIP Code Phon e Number [place] [id number] ECHOCARDIOGRAM COMPLETE (07/09/2016 9:46 AM EDT) P athologist Signature EF 56 [facility] Specimen (Source) Anatomical Location Collection Method / Collectio n Time Received Time / Laterality Volume 07/09/2016 Narrative [facility] - 07/09/2016 10:49 AM ED T Procedure: ?Transthoracic Echocardiogram Patient: ?JAMALJOSEFA DENTON ?? (Age): 1960(55y) Med Rec#: ? [id number] ?Sex: ?M ? Site Loc: ? [facility] ?Ht / Wt: ??167(cm)/77(kg) Pt. Loc: ?CCU ? BSA: ?1.86 Study Date: ?? 07/09/2016 ?Pt. Type: Inpatient Tape: ? Referring: CHARLY Referring: Griffin Irvin ([id number]) Reading: Steffen Velasco ([id number]) Bilingual Teacher Aide: Tammie Rose [facility] Interpreting Fellow: Jennifer Solis ([id number]) Diagnosis: *ICD-10-PCS Chest pain, unspecified (R0 7.9) CPT Codes: *Echo Full (63111) *Spectral Doppler (81191) *Color Doppler (69747) BP: ? 123/74 SUMMARY: 1. The left ventricular chamber size is normal. Moderate concentric left ventricular hypertrophy is observed. The re is normal global left ventricular systolic function. The quant itative left ventricular ejection fraction by biplane Bruner's m ethod is 56%. There are left ventricular segmental wall motion abnorm alities present, as shown in the diagram below. The ??basal anterolateral , basal inferolateral, mid anterolateral, and ??mid inferolateral w all segments are akinetic (score 3). The ??basal inferior, mid inferior, apical lateral, and ??apical inferior wall segments are hypokinetic ( score 2). 2. The right ventricle is normal in size . Right ventricular global systolic function is normal. Pulmonary a rtery hypertension could not be assessed due to inadequate tricuspid reg urgitation jet. 3. There is no hemodynamically significa nt valve disease. 4. Other findings as noted in the full r eport. Findings ? : Left Ventricle: ? The left ventricul ar chamber size is normal. ?Moderate concentric left ventricul ar hypertrophy is observed. ?There is no evidence of LVOT obstr uction. ?No ventricular septal defect is vi sualized. ?There is normal global left ventri cular systolic function. ?The quantitative left ventricular ejection fraction by biplane Bruner's method is 56%. ?There are left ventricular segment al wall motion abnormalities present, as shown in the diagram below. ?Left ventricular diastolic functio n is probably normal. ?Doppler assessment is consistent w ith normal left sided filling pressure. ?The ??basal inferior, mid inferior , apical lateral, and ??apical inferior wall segments are hypokinetic ( score 2). ?The ??basal anterolateral, basal i nferolateral, mid anterolateral, and ??mid inferolateral wall segments ar e akinetic (score 3). ?Overall wallmotion score index is ??1.75 Left Atrium: ? The left atrium is no rmal in size. ?There is no evidence of a patent f oramen ovale by color Doppler. Right Ventricle: ? The right ventric le is normal in size. ?Right ventricular global systolic function is normal. ?Pulmonary artery hypertension coul d not be assessed due to inadequate tricuspid regurgitation jet. ?The estimated right atrial pressur e is 3 mmHg. Right Atrium: ? The right atrium is [...] fat pad is visualize d. Aorta: ? The aortic root is normal i n size. ?The ascending aorta is normal in s ize. Pulmonary Artery: ? The main pulmona ry artery appears normal. Venous: ? The inferior vena cava coty ears normal in size. ?There is a greater than 50% respir atory change in the inferior vena cava dimension. ?The flow pattern of the pulmonary veins appear normal. Misc: ? There is no hemodynamically significant valve disease. ?Two-dimensional echo, spectral Dop pler and color Doppler performed. Chambers 2D ?Value ?Units (Range) ? IVSd (2D) ? 1.5 ?cm ? LVPWd (2D) ?1.5 ?cm ? IVS:LVPW ratio (2D) 1 ?ratio ? LVIDd (2D) ?4.4 ?cm ? LVIDs (2D) ?3.1 ?cm ? LVIDd (2D) index ?2.4 ?cm/m2 ? LVIDs (2D) index ?1.7 ?cm/m2 ? LV FS (2D) ?29 ? % ? EF Teichholz (2D) ?? 56 ? % ? Ao root diameter (2D3.3 ?cm (2.1 - 3.6) ? Ascending Ao ?3.2 ?cm (2 - 3.5) ? Volumes/Mass ?Value ?Units (Range) ? LA ESV BP (A/L) inde22.1 ? ml/m2 ? LA ESV SP 4CH (MOD) 33.3 ? ml ? LA ESV SP 2CH (MOD) 43 ? ml ? LV ESV SP 4CH (MOD) 42.7 ? ml ? LV ESV SP 2CH (MOD) 30.7 ? ml ? LV EDV BP ? 81.7 ? ml ? LV ESV BP ? 35.9 ? ml ? BP EF (MOD) ? 56 ? % ? LV mass (2D) ?276.7 ?g ? LV mass (2D) index ??148.7 ?g/m2 ? Diastolic/Systolic Function ?Value ?Units (Range) ? MV E-wave Vmax ?0.9 ?m/sec ? MV deceleration zqva938.8 ? msec ? MV A-wave Vmax ?0.9 ?m/sec ? MV E:A ratio ?1 ?ratio ? LV septal e' Vmax ?? 0.1 ?m/sec ? LV lateral e' Vmax ??0.1 ?m/sec ? LV average e' Vmax ??0.1 ?m/sec ? LV E:e' septal ratio12.7 ? ratio ? LV E:e' lateral rati11.1 ? ratio ? LV average E:e' rati11.1 ? ratio ? Tricuspid Valve ?Value ?Units (Range) ? RAP ? 3 ?mmHg ? Measurement Trending Name ? 07/09/2016 ? LV EDV BP ?8 1.7 LVIDd (2D) ? 4. 4 LV ESV BP ?3 5.95 LVIDs (2D) ? 3. 11 Wall Motion: Segment Name ?Rest ? Base-Anteroseptal ?? Normal ? Base-Anterior ? Normal ? Base-Anterolateral ??Akinetic ? Base-Posterolateral Akinetic ? Base-Inferior ? Hypokinetic ? Base-Inferoseptal ?? Normal ? Mid-Anteroseptal ?Normal ? Mid-Anterior ?Normal ? Mid-Anterolateral ?? Akinetic ? Mid-Posterolateral ??Akinetic ? Mid-Inferior ?Hypokinetic ? Mid-Inferoseptal ?Normal ? Schlater-Septal ? Normal ? Schlater-Anterior ? Normal ? Schlater-Lateral ?Hypokinetic ? Schlater-Inferior ? Hypokinetic ? Schlater-Tip ?Hypokinetic ? This report has been electronically sign ed by: _ Steffen Velasco MD ? 07/09/2016 10:49 :20 Images reviewed and interpretation verif ied [facility] Procedure Note Steffen Velasco MD - 07/09/2016Formtayler coon of this note might be different from the original. Procedure: Transthoracic Echocardiogram Patient: JAMAL DENTON (Age): 0 1960(55y) Med Rec#: [id number] Sex: M Site Loc: [facility] Ht / Wt: 167(cm)/77(kg) Pt. Loc: CCU BSA: 1.86 Study Date: 07/09/2016 Pt. Type: Inpatie nt Tape: Referring: CHARLY Referring: Griffin Irvin ([id number]) Reading: Steffen Velasco ([id number]) Bilingual Teacher Aide: Tammie Rose [facility] Interpreting Fellow: Jennifer Solis ([id number]) Diagnosis: *ICD-10-PCS Chest pain, unspecified (R0 7.9) CPT Codes: *Echo Full (19767) *Spectral Doppler (75339) *Color Doppler ([id number]) BP: 123/74 SUMMARY: 1. The left ventricular chamber size is normal. Moderate concentric left ventricular hypertrophy is observed. The re is normal global left ventricular systolic function. The quant itative left ventricular ejection fraction by biplane Bruner's m ethod is 56%. There are left ventricular segmental wall motion abnorm alities present, as shown in the diagram below. The basal anterolateral, basal inferolateral, mid anterolateral, and mid inferolateral wal l segments are akinetic (score 3). The basal inferior, mid inferior, ap ical lateral, and apical inferior wall segments are hypokinetic ( score 2). 2. The right ventricle is normal in size . Right ventricular global systolic function is normal. Pulmonary a rtery hypertension could not be assessed due to inadequate tricuspid reg urgitation jet. 3. There is no hemodynamically significa nt valve disease. 4. Other findings as noted in the full r eport. Findings : Left Ventricle: The left ventricular sherman mber size is normal. Moderate concentric left ventricular hy pertrophy is observed. There is no evidence of LVOT obstructio n. No ventricular septal defect is visuali zed. There is normal global left ventricular systolic function. The quantitative left ventricular eject ion fraction by biplane Bruner's method is 56%. There are left ventricular segmental wa ll motion abnormalities present, as shown in the diagram below. Left ventricular diastolic function is probably normal. Doppler assessment is consistent with n ormal left sided filling pressure. The basal inferior, mid inferior, apica l lateral, and apical inferior wall segments are hypokinetic ( score 2). The basal anterolateral, basal inferola teral, mid anterolateral, and mid inferolateral wall segments are akinetic (score 3). Overall wallmotion score index is 1.75 Left Atrium: The left atrium is normal i n size. There is no evidence of a patent forame n ovale by color Doppler. Right Ventricle: The right ventricle is normal in size. Right ventricular global systolic funct ion is normal. Pulmonary artery hypertension could not be assessed due to inadequate tricuspid regurgitation jet. The estimated right atrial pressure is 3 mmHg. Right Atrium: The right atrium is normal [...] A pericardial fat pad is visualized. Aorta: The aortic root is normal in size . The ascending aorta is normal in size. Pulmonary Artery: The main pulmonary art rose appears normal. Venous: The inferior vena cava appears n ormal in size. There is a greater than 50% respiratory change in the inferior vena cava dimension. The flow pattern of the pulmonary veins appear normal. Misc: There is no hemodynamically signif icant valve disease. Two-dimensional echo, spectral Doppler and color Doppler performed. Chambers 2D Value Units (Range) IVSd (2D) 1.5 cm LVPWd (2D) 1.5 cm IVS:LVPW ratio (2D) 1 ratio LVIDd (2D) 4.4 cm LVIDs (2D) 3.1 cm LVIDd (2D) index 2.4 cm/m2 LVIDs (2D) index 1.7 cm/m2 LV FS (2D) 29 % EF Teichholz (2D) 56 % Ao root diameter (2D3.3 cm (2.1 - 3.6) Ascending Ao 3.2 cm (2 - 3.5) Volumes/Mass Value Units (Range) LA ESV BP (A/L) inde22.1 ml/m2 LA ESV SP 4CH (MOD) 33.3 ml LA ESV SP 2CH (MOD) 43 ml LV ESV SP 4CH (MOD) 42.7 ml LV ESV SP 2CH (MOD) 30.7 ml LV EDV BP 81.7 ml LV ESV BP 35.9 ml BP EF (MOD) 56 % LV mass (2D) 276.7 g LV mass (2D) index 148.7 g/m2 Diastolic/Systolic Function Value Units (Range) MV E-wave Vmax 0.9 m/sec MV deceleration jkyb588.8 msec MV A-wave Vmax 0.9 m/sec MV E:A ratio 1 ratio LV septal e' Vmax 0.1 m/sec LV lateral e' Vmax 0.1 m/sec LV average e' Vmax 0.1 m/sec LV E:e' septal ratio12.7 ratio LV E:e' lateral rati11.1 ratio LV average E:e' rati11.1 ratio Tricuspid Valve Value Units (Range) RAP 3 mmHg Measurement Trending Name 07/09/2016 LV EDV BP 81.7 LVIDd (2D) 4.4 LV ESV BP 35.95 LVIDs (2D) 3.11 Wall Motion: Segment Name Rest Base-Anteroseptal Normal Base-Anterior Normal Base-Anterolateral Akinetic Base-Posterolateral Akinetic Base-Inferior Hypokinetic Base-Inferoseptal Normal Mid-Anteroseptal Normal Mid-Anterior Normal Mid-Anterolateral Akinetic Mid-Posterolateral Akinetic Mid-Inferior Hypokinetic Mid-Inferoseptal Normal Schlater-Septal Normal Schlater-Anterior Normal Schlater-Lateral Hypokinetic Schlater-Inferior Hypokinetic Schlater-Tip Hypokinetic This report has been electronically sign ed by: _ Steffen Velasco MD 07/09/2016 10:49:20 Images reviewed and interpretation bharath sam [facility] Griffin Irvin MD ECHO ORDERABLES Performing Organization Address City/State/ZIP Code Phon e Number [facility] (ABNORMAL) Cardiac Enzymes (07/09/2016 9:40 AM EDT) athologist Signature Troponin-T 4.26 (H) <=0.03 [facility] ng/mL [facility] Comment: result rechecked-kml 0.03 ng/mL: Represents the 99th percenti le upper reference limit for normals. >0.03 ng/mL: Elevated cardiac troponin T level indicative of myocardial damage. Diagnosis of acute, evolving or recent M I requires a typical rise and gradual fall of cTnT with at least ONE of the fo llowing: a) Ischemic symptoms b) Development of pathologic Q waves on the ECG c) ECG changes indicative of eschemia (S -T segment elevation/depression) d) Coronary artery intervention Serial bloods should be obtained for catrachita ting on admission, at 6 to 9 hrs and again at 12 to 24 hrs if earlier samples are negative and the clinical index of suspicion is high. Reference: [Myocardial infarction redefined? a consensus document of the Joint Society of Cardiology/[employer] Committee for the redefinition of myocardial infarction. ? ?Journal of the [employer] [employer] 2000; 36: 959-969] CK, Total 1,648 (H) 0 - 200 unit/L [facility] Specimen Anatomical Collection Method Collection Time Receive d Time (Source) Location / / Volume Laterality Blood specimen 07/09/2016 9:40 AM 017 (specimen) EDT 11:14 AM EDT Resulting Agency Comment Spec In Lab Darrius Cotter MD CHEMISTRY ORDERABLES Performing Organization Address City/State/[place] [address] APTT (07/09/2016 9:40 AM EDT) athologist Signature PTT 28 25 - [address] [facility] Comment: The recommended therapeutic range for fu ll dose, unfractionated heparin at [facility] is 80 ? 114 seconds. The use of the anti-Xa (heparin) level rather than the PTT is recommended for monitoring anticoagul ation intensity in critically ill patients receiving unfractionated hepari n by continuous IV infusion. Specimen Anatomical Collection Method Collection Time Receive d Time (Source) Location / / Volume Laterality Blood specimen 07/09/2016 9:40 AM 017 (specimen) EDT 11:14 AM EDT Resulting Agency Comment Spec In Lab Darrius Cotter MD HEMATOLOGY ORDERABLES Performing Organization Address City/State/[place] [address] (ABNORMAL) POCT Glucose (07/09/2016 8:21 AM EDT) P athologist Signature POC Glucose 255 (H) 65 - 199 [facility] mg/dL [facility] Comment: Supplemental ranges: <140 mg/dL before meals <180 mg/dL all other times of the day Specimen Anatomical Collection Method Collection Time Receive d Time (Source) Location / / Volume Laterality Blood specimen 07/09/2016 8:21 AM 017 8:21 (specimen) EDT AM EDT Darrius Cotter MD POINT OF CARE TEST ORDERABLE S Performing Organization Address City/[facility]/[place] [address] (ABNORMAL) POCT Glucose (07/09/2016 4:19 AM EDT) P athologist Signature POC Glucose 246 (H) 65 - 199 [facility] mg/dL [facility] Comment: Supplemental ranges: <140 mg/dL before meals <180 mg/dL all other times of the day Specimen Anatomical Collection Method Collection Time Receive d Time (Source) Location / / Volume Laterality Blood specimen 07/09/2016 4:19 AM 017 4:19 (specimen) EDT AM EDT Terell Munguia MD POINT OF CARE TEST ORDERABLE S Performing Organization Address City/State/[place] [address] (ABNORMAL) POCT Glucose (07/09/2016 2:16 AM EDT) P athologist Signature POC Glucose 252 (H) 65 - 199 [facility] mg/dL [facility] Comment: Supplemental ranges: <140 mg/dL before meals <180 mg/dL all other times of the day Specimen Anatomical Collection Method Collection Time Receive d Time (Source) Location / / Volume Laterality Blood specimen 07/09/2016 2:16 AM 017 2:16 (specimen) EDT AM EDT Terell Munguia MD POINT OF CARE TEST ORDERABLE S Performing Organization Address City/State/[place] [address] LDL Cholesterol, Direct (07/09/2016 1:30 AM EDT) P athologist Signature LDL Chol 159 <=190 [facility] Direct mg/dL [facility] Specimen Anatomical Collection Method Collection Time Receive d Time (Source) Location / / Volume Laterality Blood specimen 07/09/2016 1:30 AM 017 1:59 (specimen) EDT AM EDT Resulting Agency Comment Spec In Lab Terell Munguia MD CHEMISTRY ORDERABLES Performing Organization Address City/[facility]/[place] [address] (ABNORMAL) Differential, Automated (07/09/2016 1:30 AM EDT) [facility] Method Time Signature Neutrophils % 55.0 % [facility] Neutr Abs (ANC) 6.74 (H) 1.70 - [facility] 6.10 [facility] x10(3)/[facility] LABORATORY Lymphocytes % 35.1 % [facility] Lymphocytes Abs 4.3 (H) 0.9 - 3.2 [facility] x10(3)/[facility] LABORATORY Monocytes % 7.7 % [facility] Monocyte Abs 0.9 0.3 - 0.9 [facility] x10(3)/[facility] LABORATORY Eosinophils % 0.8 % [facility] Eosinophils Abs 0.1 0.0 - 0.4 [facility] x10(3)/[facility] LABORATORY Basophils % 0.6 % [facility] Basophils Abs 0.1 0.0 - 0.1 [facility] x10(3)/[facility] LABORATORY Immature Gran % 0.80 % [facility] Comment: Immature granulocytes(IG's)percentage an d absolute count will include metamyelocytes, myelocytes, and promyelo cytes. Blood smears from CBCs yielding IG's will be scanned manually for concandrew danluis. If this scan disagrees with the automated IG or if promyelocytes are not ed, a manual differential will be performed. Madhuri Gran Abs 0.10 (H) 0.00 - 0.04 x10(3)/[facility] LABORATORY Specimen Anatomical Collection Method Collection Time Receive d Time (Source) Location / / Volume Laterality Blood specimen Venous Draw / 07/09/2016 1:30 AM 2016 1:51 (specimen) Unknown EDT AM EDT Resulting Agency Comment Spec In Lab Terell Munguia MD HEMATOLOGY ORDERABLES Performing Organization Address City/State/[place] [address] (ABNORMAL) Hemogram (07/09/2016 1:30 AM EDT) Analysis Performed At Patho logist Time Signature WBC 12.2 (H) 4.0 - 9.5 [facility] x10(3)/[facility] LABORATORY RBC 5.11 4.58 [facility] x10(6)/[facility] LABORATORY Hemoglobin 15.1 13.7 - [facility] 16.5 gm/dL [facility] Hematocrit 45.0 40.5 - [facility] 48.5 % [facility] MCV 88.1 82.9 - [facility] 93.1 [facility] LABORATORY MCH 29.5 27.5 - [facility] 32.1 pg [facility] MCHC 33.6 32.0 - [facility] 35.7 gm/dL [facility] Platelets 202 145 - 357 [facility] x10(3)/[facility] LABORATORY RDWSD 42.5 36.0 - [facility] 45.0 [facility] LABORATORY RDWCV 13.1 11.4 - [facility] 13.8 % [facility] MPV 10.9 7.6 - 12.9 [facility] LABORATORY nRBC % Auto 0.0 % [facility] nRBC Abs Auto 0.000 0.000 - [facility] 0.000 [facility] x10(3)/[facility] LABORATORY Specimen Anatomical Collection Method Collection Time Receive d Time (Source) Location / / Volume Laterality Blood specimen Venous Draw / 07/09/2016 1:30 AM 2016 1:51 (specimen) Unknown EDT AM EDT Resulting Agency Comment Spec In Lab Terell Munguia MD HEMATOLOGY ORDERABLES Performing Organization Address City/[facility]/[place] [address] (ABNORMAL) APTT (07/09/2016 1:30 AM EDT) P athologist Signature PTT 20 (L) 25 - [address] [facility] Comment: Decreased clotting times may be caused b y improper phlebotomy technique. The recommended therapeutic range for fu ll dose, unfractionated heparin at [facility] is 80 ? 114 seconds. The use of the anti-Xa (heparin) level rather than the PTT is recommended for monitoring anticoagul ation intensity in critically ill patients receiving unfractionated hepari n by continuous IV infusion. Specimen Anatomical Collection Method Collection Time Receive d Time (Source) Location / / Volume Laterality Blood specimen Venous Draw / 07/09/2016 1:30 AM 2016 1:42 (specimen) Unknown EDT AM EDT Resulting Agency Comment Spec In Lab Terell Munguia MD HEMATOLOGY ORDERABLES Performing Organization Address City/[facility]/ZIP Code Phon e Number [address] Blue Tube HOLD (07/09/2016 1:30 AM EDT) P athologist Signature Blue Hold Sample in [facility] LABORATORY Specimen Anatomical Collection Method Collection Time Receive d Time (Source) Location / / Volume Laterality Blood specimen Venous Draw / 07/09/2016 1:30 AM 2016 1:42 (specimen) Unknown EDT AM EDT Terell Munguia MD HEMATOLOGY ORDERABLES Performing Organization Address City/[facility]/[place] [address] (ABNORMAL) Lipid Panel (07/09/2016 1:30 AM EDT) [facility] Method Time Signature Chol, Total 295 (H) <=239 [facility] mg/dL [facility] Triglycerides 1,000 (H) <=199 [facility] mg/dL [facility] Comment: result rechecked: bju HDL 23 (L) >=40 mg/dL [facility] LDL Cholesterol Not Perf <=190 mg/dL [facility] Comment: Since a calculated LDL value is not josette d for triglycerides greater than 400 mg/dl, a direct LDL determination is per formed instead. Chol/HDL Ratio 12.[address] [facility] Lipid Interpretation See Note [facility] Comment: Lipid management should be guided by a p atient? s ASCVD risk, goals and preferences. ACC/AHA Guidelines recommend high intens ity statin if clinical ASCVD or LDL greater than or equal to 190 mg/dL. http://circ.ahajournals.org/content/iliana y/.cir.7114664769.77451.7a Adults aged 40-75 with LDL 70-189 mg/dL should have their 10 year ASCVD risk estimated with the ACC/AHA ASCVD risk es timator http://tools.acc.org/CDVGU-Pvzt-Xiqycnfk r/ Statin should be discussed if risk [...] Location / / Volume Laterality Blood specimen 07/09/2016 1:30 AM 017 1:42 (specimen) EDT AM EDT Resulting Agency Comment Spec In Lab Terell Munguia MD CHEMISTRY ORDERABLES Performing Organization Address City/State/[place] [address] (ABNORMAL) Hemoglobin A1c (07/09/2016 1:30 AM EDT) [facility] gist Method Time Signature Hemoglobin A1C 12.7 (H) 4.3 - 5.6 [facility] Comment: Reference Range: 4.3 - [...] Mellitus, Diabetes Care 2013; 36: Suppl. 1, S67-74 Est Avg Gluc 318 mg/dL [facility] Comment: eAG equivalents for HbA1c percentages: HbA1c(%) ?eAG(mg/dL) 6.0 ?126 6.5 ?140 7.0 ?154 7.5 ?169 8.0 ?183 8.5 ?197 9.0 ?212 9.5 ?226 10.0 ? 240 Limitations: The eAG calculation has not been validated on women, individuals below 18 years old and above 70 years old, and individuals with hemoglobinopathies. Additional resources are available on e [facility] website: [email or web address].[email or web address]/DHMCadacalc Sal BHARDWAJ, Mariposa Leos, Vito R, et al. ??Tr anslating the A1C assay into estimated average glucose values. ??Diabetes Care 2008:31(8):2337-5579. Specimen Anatomical Collection Method Collection Time Receive d Time (Source) Location / / Volume Laterality Blood specimen 07/09/2016 1:30 AM 017 1:42 (specimen) EDT AM EDT Resulting Agency Comment Spec In Lab Terell Munguia MD CHEMISTRY ORDERABLES Performing Organization Address City/State/[place] [address] (ABNORMAL) Basic Metabolic Panel (non-fasting) (07/09/2016 1:30 AM EDT) athologist Signature Glucose Lvl 270 (H) 65 - 199 [facility] mg/dL [facility] Comment: Diabetes: >=200 mg/dL plus symp toms BUN 9 (L) 10 - 20 mg/dL [facility] Creatinine 0.70 (L) 0.80 - 1.50 mg/dL [facility] Comment: Please note that the pediatric reference intervals supplied above were not validated at [facility]. Results from pediatri c patients should be interpreted in conjunction to the patient's age, height and muscle mass. Sodium 136 135 - 145 mmol/L [facility] Potassium 3.7 3.5 - 5.0 mmol/L [facility] Comment: Please note: ??Patients with WBC >100,00 0 may have falsely elevated Potassium levels. ??For accurate Potassium quantif ication in these patients send serum separator tube (gold top) for subsequent determinations. ??Contact the Clinical Chemistry Laboratory if there are any qu estions. Chloride 94 (L) 98 - 107 mmol/L [facility] CO2 25 22 - 31 mmol/L [facility] Anion Gap 17 (H) 5 - 15 mmol/L [facility] Calcium 8.9 8.5 - 10.5 mg/dL [facility] Estimated GFR >60 >=60 [facility] Comment: This estimated GFR (eGFR) value was calc ulated using the MDRD equation which has been validated on patients between t he ages of 18 and 70. The MDRD should not be used to assess kidney function in patients < 18 years of age or in patients with extremes of body mass, or in patients with acute kidney failure. This value should be multiplied by 1.2 f or patients. For further information please copy and past e the following links into your internet browser. http://[email or web address]/DHnkdep [email or web address]://[email or web address]/DHMCnkf Specimen Anatomical Collection Method Collection Time Receive d Time (Source) Location / / Volume Laterality Blood specimen 07/09/2016 1:30 AM 017 1:42 (specimen) EDT AM EDT Resulting Agency Comment Spec In Lab Darrius Cotter MD CHEMISTRY ORDERABLES Performing Organization Address City/State/ZIP Code Phon e Number [place] [id number] (ABNORMAL) Cardiac Enzymes (07/09/2016 1:30 AM EDT) P athologist Signature Troponin-T 9.50 (H) <=0.03 [facility] ng/mL [facility] Comment: result rechecked-bju 0.03 ng/mL: Represents the 99th percenti le upper reference limit for normals. >0.03 ng/mL: Elevated cardiac troponin T level indicative of myocardial damage. Diagnosis of acute, evolving or recent M I requires a typical rise and gradual fall of cTnT with at least ONE of the fo llowing: a) Ischemic symptoms b) Development of pathologic Q waves on the ECG c) ECG changes indicative of eschemia (S -T segment elevation/depression) d) Coronary artery intervention Serial bloods should be obtained for catrachita ting on admission, at 6 to 9 hrs and again at 12 to 24 hrs if earlier samples are negative and the clinical index of suspicion is high. Reference: [Myocardial infarction redefined? a consensus document of the [employer] of Cardiology/[employer] o [employer] Committee for the redefinition of myocardial infarction. ? ?Journal of the [employer] 2000; 36: 959-969] CK, Total 2,875 (H) 0 - 200 unit/L [facility] Comment: result rechecked: bju Specimen Anatomical Collection Method Collection Time Receive d Time (Source) Location / / Volume Laterality Blood specimen 07/09/2016 1:30 AM 017 1:42 (specimen) EDT AM EDT Resulting Agency Comment Spec In Lab Darrius Cotter MD CHEMISTRY ORDERABLES Performing Organization Address City/[facility]/[place] [address] (ABNORMAL) POCT Glucose (07/09/2016 12:54 AM EDT) P athologist Signature POC Glucose 270 (H) 65 - 199 [facility] mg/dL [facility] Comment: Supplemental ranges: <140 mg/dL before meals <180 mg/dL all other times of the day Specimen Anatomical Collection Method Collection Time Receive d Time (Source) Location / / Volume Laterality Blood specimen 07/09/2016 12:54 7 (specimen) AM EDT 12:54 AM EDT Terell Munguia MD POINT OF CARE TEST ORDERABLE S Performing Organization Address City/[facility]/[place] [address] (ABNORMAL) POCT Glucose (07/08/2016 9:55 PM EDT) P athologist Signature POC Glucose 303 (H) 65 - 199 [facility] mg/dL [facility] Comment: Supplemental ranges: <140 mg/dL before meals <180 mg/dL all other times of the day Specimen Anatomical Collection Method Collection Time Receive d Time (Source) Location / / Volume Laterality Blood specimen 07/08/2016 9:55 PM 017 9:55 (specimen) EDT PM EDT Terell Munguia MD POINT OF CARE TEST ORDERABLE S Performing Organization Address City/State/[place] [address] (ABNORMAL) POCT Glucose (07/08/2016 8:07 PM EDT) P athologist Signature POC Glucose 281 (H) 65 - 199 [facility] mg/dL [facility] Comment: Supplemental ranges: <140 mg/dL before meals <180 mg/dL all other times of the day Specimen Anatomical Collection Method Collection Time Receive d Time (Source) Location / / Volume Laterality Blood specimen 07/08/2016 8:07 PM 017 8:07 (specimen) EDT PM EDT Terell Munguia MD POINT OF CARE TEST ORDERABLE S Performing Organization Address City/State/[place] [address] EKG 12 Lead (07/08/2016 8:03 PM EDT) Component Value Ref Range Test Analysis Performed Pathologis t Method Time At Signature Ventricular rate 83 BPM MUSE SYSTEM Atrial Rate 83 BPM MUSE SYSTEM P-R Interval 148 ms MUSE SYSTEM QRS Duration 90 ms MUSE SYSTEM Q-T Interval 354 ms MUSE SYSTEM QTC Calculated 415 ms MUSE SYSTEM (Bezet) Calculated P [place] 70 degrees MUSE SYSTEM Calculated R [place] 36 degrees MUSE SYSTEM Calculated T [place] 55 degrees MUSE SYSTEM INTERPRETATION Normal sinus rhythm MUSE SYSTEM Possible Left atrial enlargement Septal infarct (cited on or before 08-JUL-2016) When compared with ECG of 08-JUL-2016 17:35, No significant change was found Confirmed by MD Gunnar, Eddie ([id number]) on 07/09/2016 9:43:56 AM Specimen Anatomical Collection Method Collection Time Receive d Time (Source) Location / / Volume Laterality 07/08/2016 8:03 PM 7 9:43 EDT AM EDT Darrius Cotter MD ECG ORDERABLES Performing Organization Address City/State/ZIP Code Phon e Number MUSE SYSTEM CARDIAC CATHETERIZATION (07/08/2016 7:50 PM EDT) Specimen (Source) Anatomical Location Collection Method / Collectio n Time Received Time / Laterality Volume Narrative CARDIOMAC SYSTEM - 07/08/2016 8:03 PM ED T ?[facility] ? Cardiac Cathete rization/Intervention Report ? Patient Name: Bertin Berry. ? Procedure Date: 07/08/2016 ? A #: [id number] ? Primary Physician: Nilda, Terell T ? Case #: [id number] ? File Name: [id number] ? Catheterization Order Number: [id number] ? [facility] ? Final Report [place], [place] ? Patient Name: ? Christopher G. Jamal ? ID#: ?[id number] ? : ?1960 ? Procedure Date: ? July 08, 2016 ? Case #: ? [id number] ? Room: ? 5 ? Case Physician: ? Terell Munguia M.D. ?Start: ?18:29 ?Fellow: ? Slim dodge M.D. ? Admission: ??07/08/2016 ? Discharge: ??07/16/2016 ? Referring Physician: ??Palma Sommer ? Procedures: ?* Coronary Angiography ?* Left Heart Catheterization ?* Left Ventriculography ?* Access Site Angiography ?* Abdominal Aortography ?* Thoracic Aortography ? Pre Case Status: ?These procedures were performed on an emergent basis. ? History ?Bertin Berry is a 55 year old man. He has a history of smoking ?(50 pack years) and is still sm [facility]. The patient has ?hypercholesterolemia. He has di abetes managed by diet and oral ?medication. The patient has uns table angina, positive troponin, a history ?of chest pain and a prior histo ry of coronary artery disease. He is ?status post a recent non-ST maryam vation myocardial infarction as well as a ?remote myocardial infarction. T he patient has a history of dyspnea with ?NYHA functional class II. He banks s a history of peripheral vascular disease ?with intermittent claudication. The patient also has a history of an ?abnormal EKG and an abnormal ec hocardiogram. Prior to the initiation of ?this procedure, the patient was designated as ASA Class IV. ? Patient Status at Catheterization: ?The patient presented with: non -STEMI (w/i 7 days). [place] ?Cardiovascular Society angina c lass was IV. No stress or imaging studies ?were performed prior to this pr ocedure ? Technique: ?A 6Fr sheath was inserted in th e left femoral artery utilizing the ?Seldinger technique. The left c oronary artery was injected utilizing a ?6Fr JL 3.5 catheter. A 6Fr JR 4 catheter was used to inject the right ?coronary artery. A total of 300 cc of Omnipaque were opened, 220cc of ?Omnipaque were administered and 80cc of Omnipaque were wasted. Radiation: ?Fluoro time was 8.1 minutes, do se area product was 69,242 mGYcm2 and air ?kerma was 1,234 mGY. ?The patient received the follow ing medications prior to and during the ?procedure: Aspirin (any), Clopi dogrel and Unfractionated Heparin (any). ? Hemodynamics: ?Left Heart Pressures ? Resting: ? Syst D iast ? EDP ?a ?v ? m ?Ao 134 ?? 67 ?94 ?LV 169 ? 18 ? Post Contrast: ? Syst D iast ? EDP ?a ?v ? m ?Ao 185 ?? 89 ?127 ?LV 190 ? 23 ? Left Ventriculography: ?Segmental Wall Motion ? Anterobasal Ant erolater Apical ? Mid ? Inferobasal ? normal ? normal ?normal ? severeor ?mild ?hypokinesis hypokinesis ?Estimated LV Ejection Fraction: 50% ? Coronary Angiography: ?Dominance: Right ?Left Main ? There was mild diffuse d isease of the entire vessel segment of the ? left main artery. ?Left Anterior Descending ? There was mild diffuse d isease of the entire vessel segment of the ? left anterior descending artery (LAD). ??The mid segment of the LAD ? had a single discrete 65 % stenosis. ? There was a 90% hazy sin gle discrete stenosis of the ostial segment ? of the first diagonal br anch (Diagonal 1) of the LAD. ??The Diagonal ? 1 was large. ?Left Circumflex ? There was mild diffuse d isease of the entire vessel segment of the ? left circumflex artery ( LCX). ? There was a 65% hazy pati g segmental stenosis of the proximal segment ? of the first obtuse иван inal branch (OM1) of the LCX. ?Right Coronary Artery ? There was mild diffuse d isease of the entire vessel segment of the ? right coronary artery (R CA). ??The mid segment of the RCA had a long ? segmental 65% stenosis. ? Vascular Access: ?Vascular Access Angiogram: ? A selective angiogram at the left femoral artery revealed severe ? diffuse disease. A closu re device is contraindicated due to evidence ? of obstructive periphera l vascular disease. ?Vascular Access Management: ? Manual Compression of th e left femoral artery access site was ? performed. ? Conclusions: ?* Three vessel coronary artery disease (LAD, LCX and RCA) ?* Mildly decreased left ventric ular ejection fraction (EF-50%) ?* Severe lower extremity PVD wi th high grade external iliac artery and ?common femoral artery disease. ?* Patent subclavian arteries an d JOSE's bilaterally. ? Complications/Events: ?The patient had no complication s during these procedures. ? Recommendations: ?Based upon the results of this procedure, it was recommended that medical ?therapy be considered. ? Comments: ?3Vd in a patient with CP 2 days ago and positive troponin. ??Consider ?surgical revascularization. ?Thoracic aortography was perfor med in [place] projection to [facility] for PAD ?in a patient needing FOSS and R JOSE for CABG. ??The ascending thoracic ?aorta is normal in size. ??Ther e is a three vesel arch with an inominate, ?left common carotid and left vivar bclavian; all are free from significant ?disease.The LEAH and FOSS are w deangeloley patent. ??The descending thoracic ?aorta is patent. ?Abdominal aortography was perfo rrmed using an angled pigtail and power ?injection of contrast. ??The di stal abdominal aorta is midline with ?moderate disease. ??The right a nd left common iliac arteries are patent. ?The left common iliac has 40% d istal stenosis. ??The right external iliac ?is severely diseased with a 90% stenosis. ??The left external iliac artery ?is severly diseased throughout. ??The right and left common femoral ?arteries are severely diseased. ?The attending physician was presen t for the entire procedure. ?Vianey Bolese d the coronary angiography, left heart ?catheterization, access site angio graphy, left ventriculography, abdominal ?aortography and thoracic aortograp hy. ? Terell Munguia M.D. ? Electronically Signed by: Terell major M.D. ? Report Finalized: 07/08/2016 ??19:53 ? Report Last Ammended: 09/21/2016 ??14:42 ? Procedure Note Terell Munguia MD - 09/21/2016Formatt ing of this note might be different from the original. [facility] Cardiac Catheterization/Intervention Re port Patient Name: Bertin Berry Procedure Date: 07/08/2016 A #: [id number] Primary Physician: Terell Munguia Case #: [id number] File Name: [id number] Catheterization Order Number: [id number] [facility] Final Report [place], [place] Patient Name: Bertin Berry ID# : [id number] : 1960 Procedure Date: July 08, 2016 Case #: [id number] Room: 5 Case Physician: Terell Munguia M.D. St art: 18:29 Fellow: Slim Eason M.D. Admiss ion: 07/08/2016 Discharge: 07/16/2016 Referring Physician: Zay Montilla M.D. Procedures: * Coronary Angiography * Left Heart Catheterization * Left Ventriculography * Access Site Angiography * Abdominal Aortography * Thoracic Aortography Pre Case Status: These procedures were performed on an e mergent basis. History Bertin Berry is a 55 year old man. He has a history of smoking (50 pack years) and is still smoking. T he patient has hypercholesterolemia. He has diabetes m anaged by diet and oral medication. The patient has unstable an rufino, positive troponin, a history of chest pain and a prior history of co ronary artery disease. He is status post a recent non-ST elevation m yocardial infarction as well as a remote myocardial infarction. The patie nt has a history of dyspnea with NYHA functional class II. He has a hist ory of peripheral vascular disease with intermittent claudication. The pat ient also has a history of an abnormal EKG and an abnormal echocardio gram. Prior to the initiation of this procedure, the patient was designa abi as ASA Class IV. Patient Status at Catheterization: The patient presented with: non-STEMI ( w/i 7 days). [place] [employer] Society angina class was IV. No stress or imaging studies were performed prior to this procedure Technique: A 6Fr sheath was inserted in the left f emoral artery utilizing the Seldinger technique. The left coronary artery was injected utilizing a 6Fr JL 3.5 catheter. A 6Fr JR 4 cathete r was used to inject the right coronary artery. A total of 300cc of Om nipaque were opened, 220cc of Omnipaque were administered and 80cc of Omnipaque were wasted. Radiation: Fluoro time was 8.1 minutes, dose area product was 69,242 mGYcm2 and air kerma was 1,234 mGY. The patient received the following medi cations prior to and during the procedure: Aspirin (any), Clopidogrel a nd Unfractionated Heparin (any). Hemodynamics: Left Heart Pressures Resting: Syst Diast EDP a v m Ao 134 67 94 LV 169 18 Post Contrast: Syst Diast EDP a v m Ao 185 89 127 LV 190 23 Left Ventriculography: Segmental Wall Motion Anterobasal Anterolater Apical Mid Infe robasal normal normal normal severeor mild hypokinesis hypokinesis Estimated LV Ejection Fraction: 50% Coronary Angiography: Dominance: Right Left Main There was mild diffuse disease of the e ntire vessel segment of the left main artery. Left Anterior Descending There was mild diffuse disease of the e ntire vessel segment of the left anterior descending artery (LAD). The mid segment of the LAD had a single discrete 65% stenosis. There was a 90% hazy single discrete st enosis of the ostial segment of the first diagonal branch (Diagonal 1) of the LAD. The Diagonal 1 was large. Left Circumflex There was mild diffuse disease of the e ntire vessel segment of the left circumflex artery (LCX). There was a 65% hazy long segmental keyonna nosis of the proximal segment of the first obtuse marginal branch (OM 1) of the LCX. Right Coronary Artery There was mild diffuse disease of the e ntire vessel segment of the right coronary artery (RCA). The mid se gment of the RCA had a long segmental 65% stenosis. Vascular Access: Vascular Access Angiogram: A selective angiogram at the left femor al artery revealed severe diffuse disease. A closure device is co ntraindicated due to evidence of obstructive peripheral vascular dise ase. Vascular Access Management: Manual Compression of the left femoral artery access site was performed. Conclusions: * Three vessel coronary artery disease (LAD, LCX and RCA) * Mildly decreased left ventricular eje ction fraction (EF-50%) * Severe lower extremity PVD with high grade external iliac artery and common femoral artery disease. * Patent subclavian arteries and JOSE's bilaterally. Complications/Events: The patient had no complications during these procedures. Recommendations: Based upon the results of this procedur e, it was recommended that medical therapy be considered. Comments: 3Vd in a patient with CP 2 days ago and positive troponin. Consider surgical revascularization. Thoracic aortography was performed in L AO projection to evalaute for PAD in a patient needing FOSS and LEAH for CABG. The ascending thoracic aorta is normal in size. There is a thr ee vesel arch with an inominate, left common carotid and left subclavian ; all are free from significant disease.The LEAH and FOSS are widley pa tent. The descending thoracic aorta is patent. Abdominal aortography was perforrmed us ing an angled pigtail and power injection of contrast. The distal abdom inal aorta is midline with moderate disease. The right and left co mmon iliac arteries are patent. The left common iliac has 40% distal st enosis. The right external iliac is severely diseased with a 90% stenosi s. The left external iliac artery is severly diseased throughout. The rig ht and left common femoral arteries are severely diseased. The attending physician was present for the entire procedure. Dr. Terell Munguia M.D. performed the coronary angiography, left heart catheterization, access site angiograph y, left ventriculography, abdominal aortography and thoracic aortography. Terell Munguia M.D. Electronically Signed by: Terell major M.D. Report Finalized: 07/08/2016 19:53 Report Last Ammended: 09/21/2016 14:42 Sangita Robles MD CARDIAC CATH ORDERABLES Performing Organization Address City/State/ZIP Code Phon e Number CARDIOMAC SYSTEM Beta Hydroxybutyrate (07/08/2016 5:40 PM EDT) athologist Signature BOHB 0.24 0.00 - 0.30 [facility] mmol/L [facility] Comment: Reference range: ??0.00-0.30 mmo1/L, bas ed on an overnight fast. ??Children may be higher. Specimen Anatomical Collection Method Collection Time Receive d Time (Source) Location / / Volume Laterality Blood specimen Venous Draw / 07/08/2016 5:40 PM 2016 5:48 (specimen) Unknown EDT PM EDT Resulting Agency Comment Spec In Lab Sangita Robles MD CHEMISTRY ORDERABLES Performing Organization Address City/State/[place] [address] (ABNORMAL) APTT (07/08/2016 5:40 PM EDT) P athologist Signature PTT 36 (H) 25 - [address] [facility] Comment: The recommended therapeutic range for fu ll dose, unfractionated heparin at [facility] is 80 ? 114 seconds. The use of the anti-Xa (heparin) level rather than the PTT is recommended for monitoring anticoagul ation intensity in critically ill patients receiving unfractionated hepari n by continuous IV infusion. Specimen Anatomical Collection Method Collection Time Receive d Time (Source) Location / / Volume Laterality Blood specimen Venous Draw / 07/08/2016 5:40 PM 2016 5:45 (specimen) Unknown EDT PM EDT Resulting Agency Comment Spec In Lab Sangita Robles MD HEMATOLOGY ORDERABLES Performing Organization Address City/State/[place] [address] (ABNORMAL) Differential, Automated (07/08/2016 5:40 PM EDT) Patholo gist Method Time Signature Neutrophils % 62.3 % [facility] Neutr Abs (ANC) 8.73 (H) 1.70 - [facility] 6.10 [facility] x10(3)/[facility] LABORATORY Lymphocytes % 31.0 % [facility] Lymphocytes Abs 4.4 (H) 0.9 - 3.2 [facility] x10(3)/[facility] LABORATORY Monocytes % 5.6 % [facility] Monocyte Abs 0.8 0.3 - 0.9 [facility] x10(3)/[facility] LABORATORY Eosinophils % 0.1 % [facility] Eosinophils Abs 0.0 0.0 - 0.4 [facility] x10(3)/[facility] LABORATORY Basophils % 0.4 % [facility] Basophils Abs 0.1 0.0 - 0.1 [facility] x10(3)/[facility] LABORATORY Immature Gran % 0.60 % [facility] Comment: Immature granulocytes(IG's)percentage an d absolute count will include metamyelocytes, myelocytes, and promyelo cytes. Blood smears from CBCs yielding IG's will be scanned manually for concor dance. If this scan disagrees with the automated IG or if promyelocytes are not ed, a manual differential will be performed. Madhuri Gran Abs 0.09 (H) 0.00 - 0.04 x10(3)/[facility] LABORATORY Specimen Anatomical Collection Method Collection Time Receive d Time (Source) Location / / Volume Laterality Blood specimen 07/08/2016 5:40 PM 017 5:45 (specimen) EDT PM EDT Resulting Agency Comment Spec In Lab Sangita Robles MD HEMATOLOGY ORDERABLES Performing Organization Address City/State/[place] [address] (ABNORMAL) Hemogram (07/08/2016 5:40 PM EDT) Analysis Performed At Patho logist Time Signature WBC 14.0 (H) 4.0 - 9.5 [facility] x10(3)/[facility] LABORATORY RBC 5.06 4.58 - [facility] 5.54 [facility] x10(6)/[facility] LABORATORY Hemoglobin 15.1 13.7 - [facility] 16.[facility] gm/dL [facility] Hematocrit 44.3 40.5 - [facility] % [facility] MCV 87.5 82.9 - [facility] 93.1 [facility] LABORATORY MCH 29.8 27.5 - [facility] 32.1 pg [facility] MCHC 34.1 32.0 - [facility] 35.7 gm/dL [facility] Platelets 217 145 - 357 [facility] x10(3)/[facility] LABORATORY RDWSD 42.1 36.0 - [facility] 45.0 [facility] LABORATORY RDWCV 13.2 11.4 - [facility] 13.8 % [facility] MPV 11.6 7.6 - 12.9 [facility] LABORATORY nRBC % Auto 0.0 % [facility] nRBC Abs Auto 0.000 0.000 - [facility] 0.000 [facility] x10(3)/[facility] LABORATORY Specimen Anatomical Collection Method Collection Time Receive d Time (Source) Location / / Volume Laterality Blood specimen 07/08/2016 5:40 PM 017 5:45 (specimen) EDT PM EDT Resulting Agency Comment Spec In Lab Sangita Robles MD HEMATOLOGY ORDERABLES Performing Organization Address City/[facility] Code Phon e Number [address] (ABNORMAL) TSH (07/08/2016 5:40 PM EDT) P athologist Signature TSH 5.02 (H) 0.27 - 4.20 [facility] mcIU/mL [facility] Specimen Anatomical Collection Method Collection Time Receive d Time (Source) Location / / Volume Laterality Blood specimen 07/08/2016 5:40 PM 017 5:45 (specimen) EDT PM EDT Resulting Agency Comment Spec In Lab Sangita Robles MD CHEMISTRY ORDERABLES Performing Organization Address City/[facility] [place] [address] (ABNORMAL) Hepatic Function Panel (07/08/2016 5:40 PM EDT) P athologist Signature Total Protein 7.7 6.1 - 8.0 [facility] gm/dL [facility] Albumin 4.4 3.2 - 5.2 [facility] gm/dL [facility] AST 247 (H) 0 - 39 [facility] unit/L [facility] ALT 41 0 - 55 [facility] unit/L [facility] Alk Phos 112 40 - 120 [facility] unit/L [facility] Total 0.3 0.2 - 1.3 [facility] Bilirubin mg/dL [facility] Bili, Direct 0.1 0.0 - 0.3 [facility] mg/dL [facility] Specimen Anatomical Collection Method Collection Time Receive d Time (Source) Location / / Volume Laterality Blood specimen 07/08/2016 5:40 PM 017 5:45 (specimen) EDT PM EDT Resulting Agency Comment Spec In Lab Sangita Robles MD CHEMISTRY ORDERABLES Performing Organization Address City/[facility]/ZIP [facility] [place] [address] Prothrombin Time (07/08/2016 5:40 PM EDT) athologist Signature PT 12.9 12.0 - 15.0 [facility]ATORY Comment: An INR <2.0 indicates adequate [...] be appropriate depending on c linical circumstances. INR 0.9 0.9 - 1.1 [facility] Specimen Anatomical Collection Method Collection Time Receive d Time (Source) Location / / Volume Laterality Blood specimen 07/08/2016 5:40 PM 017 5:45 (specimen) EDT PM EDT Resulting Agency Comment Spec In Lab Sangita Robles MD HEMATOLOGY ORDERABLES Performing Organization Address City/State/[place] [address] (ABNORMAL) Basic Metabolic Panel (non-fasting) (07/08/2016 5:40 PM EDT) athologist Signature Glucose Lvl 419 (H) 65 - 199 [facility] mg/dL [facility] Comment: Diabetes: >=200 mg/dL plus symp toms BUN 10 10 - 20 mg/dL [facility] Creatinine 0.77 (L) 0.80 - 1.50 mg/dL [facility] Comment: Please note that the pediatric reference intervals supplied above were not validated at [facility]. Results from pediatri c patients should be interpreted in conjunction to the patient's age, height and muscle mass. Sodium 133 (L) 135 - 145 mmol/L [facility] Comment: rechecked by ga Potassium 4.6 3.5 - 5.0 mmol/L [facility] Comment: Please note: ??Patients with WBC >100,00 0 may have falsely elevated Potassium levels. ??For accurate Potassium quantif ication in these patients send serum separator tube (gold top) for subsequent determinations. ??Contact the Clinical Chemistry Laboratory if there are any qu estions. Chloride 91 (L) 98 - 107 mmol/L [facility] CO2 21 (L) 22 - 31 mmol/L [facility] Anion Gap 21 (H) 5 - 15 mmol/L [facility] Calcium 9.8 8.5 - 10.5 mg/dL [facility] Estimated GFR >60 >=60 [facility] Comment: This estimated GFR (eGFR) value was calc ulated using the MDRD equation which has been validated on patients between t he ages of 18 and 70. The MDRD should not be used to assess kidney function in patients < 18 years of age or in patients with extremes of body mass, or in patients with acute kidney failure. This value should be multiplied by 1.2 f or patients. For further information please copy and past e the following links into your internet browser. [email or web address] [email or web address] Specimen Anatomical Collection Method Collection Time Receive d Time (Source) Location / / Volume Laterality Blood specimen 07/08/2016 5:40 PM 017 5:45 (specimen) EDT PM EDT Resulting Agency Comment Spec In Lab Sangita Robles MD CHEMISTRY ORDERABLES Performing Organization Address City/State/[place] [address] (ABNORMAL) Cardiac Enzymes (07/08/2016 5:40 PM EDT) P athologist Signature Troponin-T 7.41 (H) <=0.03 [facility] ng/mL [facility] Comment: Called by: humberto, Read back by: bon 18:39, Date/Time:07/08/16 18:38. 0.03 ng/mL: Represents the 99th percenti le upper reference limit for normals. >0.03 ng/mL: Elevated cardiac troponin T level indicative of myocardial damage. Diagnosis of acute, evolving or recent M I requires a typical rise and gradual fall of cTnT with at least ONE of the fo llowing: a) Ischemic symptoms b) Development of pathologic Q waves on the ECG c) ECG changes indicative of eschemia (S -T segment elevation/depression) d) Coronary artery intervention Serial bloods should be obtained for catrachita ting on admission, at 6 to 9 hrs and again at 12 to 24 hrs if earlier samples are negative and the clinical index of suspicion is high. Reference: [Myocardial infarction redefined? a consensus document of the Joint Society of Cardiology/[employer] Committee for the redefinition of myocardial infarction. ? ?Journal of the [employer] 2000; 36: 959-969] CK, Total 3,402 (H) 0 - 200 unit/L [facility] Comment: rechecked by humberto Specimen Anatomical Collection Method Collection Time Receive d Time (Source) Location / / Volume Laterality Blood specimen 07/08/2016 5:40 PM 017 5:45 (specimen) EDT PM EDT Resulting Agency Comment Spec In Lab Sangita Robles MD CHEMISTRY ORDERABLES Performing Organization Address City/State/[facility] [place] [address] EKG 12 Lead (07/08/2016 5:35 PM EDT) Component Value Ref Range Test Analysis Performed Pathologis t Method Time At Signature Ventricular rate 77 BPM MUSE SYSTEM Atrial Rate 77 BPM MUSE SYSTEM P-R Interval 150 ms MUSE SYSTEM QRS Duration 88 ms MUSE SYSTEM Q-T Interval 350 ms MUSE SYSTEM QTC Calculated 396 ms MUSE SYSTEM ([place]) Calculated P [place] 66 degrees MUSE SYSTEM Calculated R [place] 12 degrees MUSE SYSTEM Calculated T [place] 58 degrees MUSE SYSTEM INTERPRETATION Normal sinus rhythm MUSE SYSTEM Septal infarct , age undetermined Abnormal ECG When compared with ECG of 29-MAY-2006 16:07, Septal infarct is now Present Nonspecific T wave abnormality now evident in Lateral leads Confirmed by MD Gunnar, Eddie ([id number]) on 07/09/2016 8:22:26 AM Specimen Anatomical Collection Method Collection Time Receive d Time (Source) Location / / Volume Laterality 07/08/2016 5:35 PM 7 8:22 EDT AM EDT Narrative This result has an attachment that is no t available. Griffin Irvin MD ECG ORDERABLES Performing Organization Address City/State/ZIP Code Phon e Number MUSE SYSTEM Film Library- Storage Only DX Chest (07/08/2016 12:00 AM EDT) Specimen (Source) Anatomical Location Collection Method / Collectio n Time Received Time / Laterality Volume Narrative [place] - 07/08/2016 4:45 PM EDT This exam is for storage only and is aut o-finalizing. Griffin Irvin MD IMG FILM LIBRARY ORDERABLES Performing Organization Address City/State/ZIP Code Phon e Number [place], [place] documented in this encounter Visit Diagnoses Diagnosis S/P CABG (coronary artery bypass graft) - Primary Postsurgical aortocoronary bypass status Chest pain, unspecified type Pain Generalized pain Pre-op testing Preoperative examination, unspecified Acute myocardial infarction, subendocard ial infarction, initial episode of care Cigarette smoker Tobacco use disorder Non ST elevation [place] due to severe 3vD-- awaiting for CABG Tuesday Acute myocardial infarction, subendocard ial infarction, episode of care unspecified Peripheral artery disease--- severe bila teral iliac and [employer] disease Peripheral vascular disease, unspecified Diabetes mellitus, type 2 Type II or unspecified type diabetes eric litus without mention of complication, not stated as uncontrolled Tobacco abuse Tobacco use disorder Hypertension Unspecified essential hypertension Financial difficulties--- barrier to med ication use Inadequate material resources Coronary artery disease Coronary atherosclerosis of unspecified type of vessel, chicken [place] or graft Left groin hematoma-- noted 07/11/2016 Contusion of abdominal wall Hyperlipidemia Other and unspecified hyperlipidemia S/P CABG (coronary artery bypass graft) Postsurgical aortocoronary bypass status documented in this encounter Admitting Diagnoses Diagnosis NSTEMI (non-ST elevated myocardial infar ction) Acute myocardial infarction, subendocard ial infarction, episode of care unspecified documented in this encounter Administered Medications Inactive Administered Medications - up to 3 most recent administrations Medication Order MAR Action Action Date Dose Rate Site acetaminophen (OFIRMEV) Given 07/13/2016 6:03 AM 1,000 mg 400 mL/hr injection 1,000 mg EDT 1,000 mg, Intravenous, at 400 mL/hr, EVERY 6 HOURS SCHEDULED, 4 doses, First dose on Tue07/12/16 at 1900, Last dose on Tue07/13/16 at 1200, Maximum dose of acetaminophen is 4000 mg from all sources in 24 hours., Routine Given 07/12/2016 11:20 PM EDT 1,000 mg 400 mL/hr Given 07/12/2016 6:40 PM EDT 1,000 mg 400 mL/hr acetaminophen (OFIRMEV) injection Given 07/14/2016 7:00 AM E DT 1,000 mg 400 mL/hr 1,000 mg 1,000 mg, Intravenous, at 400 mL/hr, EVERY 8 HOURS SCHEDULED, 2 doses, First dose on Tue07/14/16 at 0145, Last dose on Tue07/14/16 at 0600, Maximum dose of acetaminophen is 4000 mg from all sources in 24 hours., Routine Given 07/14/2016 1:31 AM EDT 1,000 mg 400 mL/hr acetaminophen (TYLENOL) tablet 1,000 mg Given 07/16/2016 6:16 AM EDT 1,000 mg 1,000 mg, Oral, EVERY 6 HOURS SCHEDULED, First dose (after last modification) on Tue07/13/16 at 1300, Until Discontinued, For pain when taking by mouth , Routine Given 07/16/2016 12:00 AM EDT 1,000 mg Given 07/15/2016 5:19 PM EDT 1,000 mg acetaminophen (TYLENOL) tablet 650 mg Given 07/12/2016 12:03 AM EDT 650 mg 650 mg, Oral, EVERY 6 HOURS PRN, Starting on Tue07/09/16 at 0526, Until Tue07/12/16 at 1712, Pain, Maximum dose of acetaminophen is 4000 mg from all sources in 24 hours., Routine Given 07/11/2016 6:31 AM EDT 650 mg Given 07/11/2016 12:29 AM EDT 650 mg albumin, human 5% 250 mL bottle Given 07/12/2016 9:22 PM EDT Intravenous, ONCE, 1 dose, On Tue07/12/16 at 1730, PRN as needed for volume replacement to maintain cardiac index greater than or equal to 2.0 L/min/M2, Recovery ([facility]), STAT albuterol (PROVENTIL) nebulizer solution 2.5 mg 2.5 mg, Nebulization, EVERY 2 HOURS PRN, Starting on Tue07/13/16 at 2300, Until Tue07/16/16 at 1423, Wheezing, Routine aspirin chewable tablet 81 mg Given 07/16/2016 8:58 AM EDT 81 mg 81 mg, Oral, DAILY, First dose on Tue07/13/16 at 0900, Until Discontinued, Start on post-op day 1 in the AM., Routine Given 07/15/2016 8:59 AM EDT 81 mg Given 07/14/2016 8:38 AM EDT 81 mg aspirin EC tablet 81 mg Given 07/12/2016 8:34 AM EDT 81 mg 81 mg, Oral, DAILY, First dose on Tue07/09/16 at 0900, Until Discontinued, Routine Given 07/11/2016 8:44 AM EDT 81 mg Given 07/10/2016 8:42 AM EDT 81 mg aspirin suppository 300 mg 300 mg, Rectal, DAILY, First dose on Tue07/13/16 at 0900, Until Discontinued, Start on post-op day 1 in the AM, Routine atorvastatin (LIPITOR) tablet 40 mg Given 07/08/2016 8:42 PM EDT 40 mg 40 mg, Oral, EVERY EVENING, First dose on Tue07/08/16 at 2030, Until Discontinued, Routine atorvastatin (LIPITOR) tablet 80 mg Given 07/15/2016 5:19 PM EDT 80 mg 80 mg, Oral, EVERY EVENING, First dose (after last modification) on Tue07/09/16 at 1700, Until Discontinued, Routine Given 07/14/2016 6:12 PM EDT 80 mg Given 07/13/2016 5:02 PM EDT 80 mg belladonna-opium (B&O SUPPRETTES) 16.2-60 mg Given 7 8:47 AM EDT 60 mg suppository 60 mg 60 mg, Rectal, EVERY 8 HOURS PRN, Starting on Tue07/13/16 at 0628, Until Tue07/16/16 at 1423, Pain, Routine cefUROXime (ZINACEF) 750mg vial Given 07/13/2016 12:39 PM EDT 75 0 mg 200 mL/hr attach to sodium chloride 0.9% 100 mL Mini-Bag Plus 750 mg, Intravenous, EVERY 8 HOURS, 3 doses, First dose on Tue07/12/16 at 2045, Last dose on Tue07/13/16 at 1245, Administer over 30 Minutes, Attach to 100 mL sodium Chloride Mini-bag Plus. Give first dose at 8 hours after dose in operating room., Indication for (Active or Suspected): Prophylaxis Given 07/13/2016 5:19 AM EDT 750 mg 200 mL/hr Given 07/12/2016 9:17 PM EDT 750 mg 200 mL/hr chlorhexidine (PERIDEX) 0.12 % oral solution Given 9:17 PM EDT 15 mLs 15 mL 15 mL, Oral, EVERY 12 HOURS SCHEDULED (2 times per day), First dose on Tue07/12/16 at 2100, Until Discontinued, [place] teeth, Routine Given 07/15/2016 9:00 AM EDT 15 mLs Given 07/14/2016 8:14 PM EDT 15 mLs dextrose 50% injection 25-50 mL 25-50 mL (12.5-25 g), Intravenous, EVERY 1 HOUR PRN, S tarting on [place] 07/15/16 at 0642, Until Tue07/16/16 at 1423, Low blo od sugar, For BG 50-70: 120 mL Juice or Regular (not diet) soda OR 12.5 gram (25 mL) Dextrose 50% IV OR, if no IV access, 1 mg Glucagon IM. Recheck BG in 30 minut es. May repeat juice, dextrose or glucagon once per episode For BG less than 50: 240 mL Juice or Regular (not diet) soda OR 25 grams (50 mL) Dextrose 50% IV OR, if no IV access, 1 mg Glucagon IM. Recheck BG in 30 minutes. May repeat juice, dext gia, or glucagon once per episode. To avoid extravasation, push Dextrose 50% SLOWLY (3 mL ov er 1 minute) in a patent, running IV, preferably a central line. For persisten t hypoglycemia, consider longer-acting treatment for the duration of the active insulin., Routine fentaNYL 50 mcg/mL infusion Rate/Dose Verify 07/13/2016 10:00 AM 50 mcg/hr 1 mL/hr 0-100 mcg/hr (0-2 mL/hr), EDT Intravenous, CONTINUOUS, Starting on Tue07/12/16 at 1730, Until Tue07/14/16 at 1023, Titrate to patient comfort, pain scale 1-3. Start at 25 mcg/hr, adjust by 25 mcg/hr every 15 minutes. Dose not to exceed 100 mcg/hour. Rate/Dose Verify 07/13/2016 8:00 AM EDT 50 mcg/hr 1 mL/hr Rate/Dose Verify 07/13/2016 6:00 AM EDT 50 mcg/hr 1 mL/hr fentaNYL bolus from bag 25 mcg Bolus from Bag 07/12/2016 11:10 PM EDT 25 mcg 25 mcg, Intravenous, EVERY 10 MIN PRN, Starting on Tue07/12/16 at 1712, Until Tue07/14/16 at 1308, Pain, For breakthrough pain while intubated., For breakthrough pain while intubated. Maximum dose 300 mcg over one hour., Routine Bolus from Bag 07/12/2016 10:03 PM EDT 25 mcg Bolus from Bag 07/12/2016 9:40 PM EDT 25 mcg furosemide (LASIX) injection 20 mg Given 07/08/2016 8:38 PM EDT 20 mg 20 mg, Intravenous, ONCE, 1 dose, On Tue07/08/16 at 2030 furosemide (LASIX) injection 20 mg Given 07/15/2016 5:27 PM EDT 20 mg 20 mg, Intravenous, 2 TIMES DAILY, First dose on Tue07/13/16 at 0900, Until Discontinued Given 07/15/2016 9:26 AM EDT 20 mg Given 07/14/2016 6:06 PM EDT 20 mg furosemide (LASIX) injection 20 mg Given 07/14/2016 5:00 AM EDT 20 mg 20 mg, Intravenous, ONCE, 1 dose, On Tue07/14/16 at 0345 glipiZIDE (GLUCOTROL) tablet 20 mg Given 07/16/2016 7:37 AM EDT 20 mg 20 mg, Oral, EVERY MORNING BEFORE BREAKFAST, First dose on Tue07/15/16 at 0730, Until Discontinued, Administer 30 minutes before the meal. Consider holding dose if patient is not eating. , Routine Given 07/15/2016 9:26 AM EDT 20 mg glucagon (human recombinant) injection S olR 1 mg 1 mg, Intramuscular, EVERY 1 HOUR PRN, S tarting on Tue07/15/16 at 0642, Until Tue07/16/16 at 1423, Low blood sugar, For BG 50-70: 120 mL Juice or Regular (not diet) soda OR 12.5 gram (25 mL) Dextrose 50% IV OR, if no IV access, 1 mg Glucagon IM. Recheck BG in 30 minutes. May repeat juice, dext gia or glucagon once per episode For BG less than 50: 240 mL Ju ice or Regular (not diet) soda OR 25 grams (50 mL) Dextrose 50% IV OR, if no IV acc ess, 1 mg Glucagon IM. Recheck BG in 30 minutes. May repeat juice, dextrose, or glucagon once per episode. To avoid extravasation, push Dextrose 50% SLOWLY (3 mL over 1 minute) in a patent, running IV, preferably a central line. For persistent hypogl ycemia, consider longer-acting treatment for the duration of the active insulin. , Routine heparin (porcine) 25,000 unit/500 mL (50 unit/mL) infusion 1 dose, Starting on [place] 07/08/16 at 1739, Until Tue07/08/16 at 1740, SUSU PANG: cabinet override heparin (porcine) injection 0-4,000 Given 07/10/2016 12:52 PM ED T 4,000 Units Units 0-4,000 Units, Intravenous, BOLUS PER HEPARIN PROTOCOL, Starting on Tue07/09/16 at 0139, Until Tue07/11/16 at 1418, Per Protocol, START ADJUSTMENT SCHEDULE 6 HOURS AFTER STARTING INFUSION aPTT Between 60 - 79 seconds: Bolus 2,000 units aPTT Less than 60 seconds: Bolus 4,000 units Increase infusion and recheck aPTT in 6 hours. , Routine Given 07/09/2016 10:49 PM EDT 4,000 Units Given 07/09/2016 3:02 PM EDT 4,000 Units heparin 25,000 units in New Bag 07/08/2016 5:40 PM EDT 1,000 Units /hr 20 mL/hr dextrose 5% 500 mL infusion 0-5,000 Units/hr (0-100 mL/hr), Intravenous, CONTINUOUS, Starting on [place] 07/08/16 at 1750, Until Tue07/08/16 at 2011, BEGIN infusion at 1,000 units per hr (12 units/kg/hr). MAX INITIAL infusion rate is 1,000 units/hr. Target PTT = 80 - 114 seconds Start adjustment schedule 6 hours after starting infusion. If PTT is: - less than 60 seconds, Administer PRN bolus and increase rate by 350 units per hr (4 units/kg/hr) - 60 - 79 seconds, Administer PRN bolus and increase rate by 150 units per hr (2 units/kg/hr) - 80 - 114 seconds, No Change - 115 - 129 seconds, decrease rate by 100 units per hr ( 1 units/kg/hr) - 130 - 145 seconds, stop infusion for 30 minutes, then decrease rate by 150 units per hr (2 units/kg/hr) - Greater than 145 seconds, stop infusion for 60 minutes, then decrease rate by 250 units per hour (3 units/kg/hr) Repeat aPTT 6 hours after initiating heparin. Then 6 hours after each dose adjustment. When 2 consecutive aPTT within target range of 80 - 114 seconds, change aPTT to once every 24 hours with A.M. labs while on heparin. RN to order required aPTT - Per Protocol, Routine heparin 25,000 units in Rate/Dose Verify 07/11/2016 4:53 1,950 Unit s/hr 39 mL/hr dextrose 5% 500 mL AM EDT infusion 0-5,000 Units/hr (0-100 mL/hr), Intravenous, CONTINUOUS, Starting on Tue07/09/16 at 0200, Until Tue07/11/16 at 1418, BEGIN infusion at 900 units per hr (12 units/kg/hr). MAX INITIAL infusion rate is 1,000 units/hr. Target PTT = 80 - 114 seconds Start adjustment schedule 6 hours after starting infusion. If PTT is: - less than 60 seconds, Administer PRN bolus and increase rate by 300 units per hr (4 units/kg/hr) - 60 - 79 seconds, Administer PRN bolus and increase rate by 150 units per hr (2 units/kg/hr) - 80 - 114 seconds, No Change - 115 - 129 seconds, decrease rate by 100 units per hr ( 1 units/kg/hr) - 130 - 145 seconds, stop infusion for 30 minutes, then decrease rate by 150 units per hr (2 units/kg/hr) - Greater than 145 seconds, stop infusion for 60 minutes, then decrease rate by 250 units per hour (3 units/kg/hr) Repeat aPTT 6 hours after initiating heparin. Then 6 hours after each dose adjustment. When 2 consecutive aPTT within target range of 80 - 114 seconds, change aPTT to once every 24 hours with A.M. labs while on heparin. RN to order required aPTT - Per Protocol, Routine New Bag 07/11/2016 4:35 AM EDT 1,950 Units/hr 39 mL/hr Rate/Dose Verify 07/10/2016 9:23 PM EDT 1,950 Units/hr 39 mL/hr insulin glargine (LANTUS) VIAL injection 25 Given 06/23 4:23 PM EDT 25 Units Units 25 Units, Subcutaneous, EVERY 24 HOURS, First dose (after last modification) on 07/10/16 at 1500, Until Discontinued, STAT insulin glargine (LANTUS) VIAL injection 30 Given 06/23 2:56 PM EDT 30 Units Units 30 Units, Subcutaneous, EVERY 24 HOURS, First dose (after last modification) on 07/11/16 at 1500, Until Discontinued, Routine insulin lispro (humaLOG) VIAL injection 0-10 Given 6:10 PM EDT 6 Units Units 0-10 Units, Subcutaneous, 3 TIMES DAILY WITH MEALS, First dose (after last modification) on 07/11/16 at 1200, Until Discontinued, ME[employer] ASSOCIATED Give 1 unit for every 8 grams carbohydrate. Hold if not eating, Routine Given 07/11/2016 1:00 PM EDT 7 Units insulin lispro (humaLOG) VIAL injection 0-8 Given 06/23 8:42 AM EDT 5 Units Units 0-8 Units, Subcutaneous, 3 TIMES DAILY WITH MEALS, First dose on 07/10/16 at 1700, Until Discontinued, MEAL ASSOCIATED Give 1 unit for every 8 grams carbohydrate. Hold if not eating, Routine Given 07/10/2016 6:21 PM EDT 1 Units insulin lispro (humaLOG) VIAL injection 0-9 Given 06/24 8:12 PM EDT 3 Units Units 0-9 Units, Subcutaneous, 3 TIMES DAILY WITH MEALS, First dose (after last modification) on 07/13/16 at 1700, Until Discontinued, Give 1 unit for every 8 grams carbohydrate Hold if not eating, Routine insulin lispro (humaLOG) VIAL injection 1-4 Given 06/23 2:18 AM EDT 4 Units Units 1-4 Units, Subcutaneous, 3 TIMES DAILY BEFORE MEALS, First dose on [place] 07/08/16 at 2200, Until Discontinued, CORRECTION BOLUS Sensitive to insulin lean patient or total daily dose of all insulin needed to achieve glycemic control less than 30 units BG 140 - 160 Give 1 unit BG 161 - 200 Give 2 units BG 201 - 240 Give 3 units BG greater than 240, give 4 units and recheck BG in 2 hours. If BG remains greater than 240, repeat 4 units (no more than three times) & call for new basal insulin orders. If less than 240 after two hours, give no insulin and resume prior schedule., Routine Given 07/09/2016 12:57 AM EDT 4 Units Given 07/08/2016 9:55 PM EDT 4 Units insulin lispro (humaLOG) VIAL injection 1-6 Given 06/23 8:04 PM EDT 4 Units Units 1-6 Units, Subcutaneous, EVERY 4 HOURS SCHEDULED, First dose on Tue07/10/16 at 1300, Until Discontinued, CORRECTION BOLUS Sensitive to insulin lean patient or total daily dose of all insulin needed to achieve glycemic control less than 30 units BG 140 - 160 Give 1 unit BG 161 - 180 Give 2 units BG 181 - 200 Give 3 units BG 201 - 220 Give 4 units BG 221 - 240 Give 5 units , BG greater than 240, give 6 units and recheck BG in 2 hours. If BG remains greater than 240, repeat 6 units (no more than three times) & call for new basal insulin orders. If less than 240 after two hours, give no insulin and resume prior schedule., Routine Given 07/11/2016 4:12 PM EDT 2 Units Given 07/11/2016 11:56 AM EDT 3 Units insulin lispro (humaLOG) VIAL injection 2-8 Given 06/23 6:00 PM EDT 8 Units Units 2-8 Units, Subcutaneous, EVERY 4 HOURS, First dose (after last modification) on Tue07/09/16 at 0445, Until Discontinued, CORRECTION BOLUS Moderate BG 140 - 160 Give 2 units BG 161 - 200 Give 4 units BG 201 - 240 Give 6 units BG greater than 240, give 8 units and recheck BG in 2 hours. If BG remains greater than 240, repeat 8 units (no more than three times) & call for new basal insulin orders. If less than 240 after two hours, give no insulin and resume prior schedule., Routine Given 07/09/2016 12:23 PM EDT 8 Units Given 07/09/2016 9:33 AM EDT 2 Units insulin lispro (humaLOG) VIAL injection 2-8 Given 06/24 11:44 AM EDT 6 Units Units 2-8 Units, Subcutaneous, 3 TIMES DAILY BEFORE MEALS, First dose on Tue07/15/16 at 0730, Until Discontinued, CORRECTION BOLUS Moderate BG 140 - 160 Give 2 units BG 161 - 200 Give 4 units BG 201 - 240 Give 6 units BG greater than 240, give 8 units and recheck BG in 2 hours. If BG remains greater than 240, repeat 8 units (no more than three times) & call for new basal insulin orders. If less than 240 after two hours, give no insulin and resume prior schedule., Routine Given 07/15/2016 7:41 AM EDT 4 Units insulin lispro (humaLOG) VIAL injection 2-8 Given 06/24 7:38 AM EDT 2 Units Units 2-8 Units, Subcutaneous, EVERY 4 HOURS SCHEDULED, First dose (after last modification) on Tue07/15/16 at 1600, Until Discontinued, CORRECTION BOLUS Moderate BG 140 - 160 Give 2 units BG 161 - 200 Give 4 units BG 201 - 240 Give 6 units BG greater than 240, give 8 units and recheck BG in 2 hours. If BG remains greater than 240, repeat 8 units (no more than three times) & call for new basal insulin orders. If less than 240 after two hours, give no insulin and resume prior schedule., Routine Given 07/16/2016 4:03 AM EDT 4 Units Given 07/15/2016 9:16 PM EDT 4 Units insulin lispro (humaLOG) VIAL injection Given 07/10/2016 12:29 P M EDT 9 Units 3-12 Units 3-12 Units, Subcutaneous, EVERY 4 HOURS SCHEDULED, First dose on Tue07/09/16 at 2015, Until Discontinued, CORRECTION BOLUS Resistant to insulin obese patient and TDD (total daily dose of all insulin needed to achieve glycemic control) greater than 60 units BG 140 - 160 Give 3 units BG 161 - 200 Give 6 units BG 201 - 240 Give 9 units BG greater than 240, give 12 units and recheck BG in 2 hours. If BG remains greater than 240, repeat 12 units (no more than three times) & call for new basal insulin orders. If less than 240 after two hours, give no insulin and resume prior schedule., Routine Given 07/10/2016 8:43 AM EDT 6 Units Given 07/10/2016 4:47 AM EDT 6 Units insulin lispro protamine-insulin lispro Given 07/15/2016 5:26 PM EDT 15 Units 75/25 (humaLOG MIX 75/25) injection 15 Units 15 Units, Subcutaneous, DAILY BEFORE DINNER, First dose on Tue07/15/16 at 1630, Until Discontinued, Routine insulin lispro protamine-insulin lispro Given 07/15/2016 11:45 A M EDT 25 Units 75/25 (humaLOG MIX 75/25) injection 25 Units 25 Units, Subcutaneous, ONCE, 1 dose, On Tue07/15/16 at 1045, STAT insulin lispro protamine-insulin lispro Given 07/16/2016 7:38 AM EDT 25 Units 75/25 (humaLOG MIX 75/25) injection 25 Units 25 Units, Subcutaneous, DAILY BEFORE BREAKFAST, First dose (after last reorder) on Tue07/16/16 at 0800, Until Discontinued, Routine insulin regular human Bolus from Bag 07/14/2016 3:56 PM EDT 8 Units (HumuLIN;NovoLIN) 1 unit/mL 150 Units in sodium chloride 0.9%150 mL BOLUS 0-16 Units 0-16 Units, Intravenous, PER INSULIN PROTOCOL, Starting on Tue07/12/16 at 1712, Until Tue07/15/16 at 0642, Per Protocol, BOLUS order. Type 2 Initial bolus 8 Units. Adjustment bolus per insulin infusion protocol: IV insulin Bolus scale: For BG in mg/dL (250-299 = 8 units, 300-359 = 12 units, greater than 360 = 16 units), Routine Bolus from Bag 07/14/2016 5:46 AM EDT 8 Units insulin regular human Rate/Dose Change 07/15/2016 6:21 AM 3 Units/hr 3 mL/hr (HumuLIN;NovoLIN) 1unit/mL EDT 150 Units in sodium chloride 0.9% 150 mL infusion 0.5-16 Units/hr (0.5-16 mL/hr), Intravenous, CHANGE BAG EVERY EVENING, First dose on Tue07/12/16 at 1730, Until Discontinued, Type 2 diabetes. Current blood glucose 240 - 299 Titration- aim for target range of 140 - 180 mg/dL. Check BG every hour unless otherwise indicated. [[ Initial bolus of 8 units, then begin continuous infusion at 5 units/hour. ]] Current BG less than 80 - Stop insulin. Re-check BG in 30 minutes and as soon as BG is greater than 80, restart with rate 50% of previous rate. If BG less than 70, treat per hypoglycemia protocol. If infusion stopped after previous rate had been 0.5 unit/hour, recheck every hour and when BG greater than 100 and higher than last test restart at 0.5 unit/hour. Current BG 80 - 139 - If BG dropped 10 mg/dL or more since last test, decrease rate by 50% and re-check in 30 minutes. Otherwise, decrease rate by 0.5 units/hour. Current BG 140 - 180 - If BG dropped 50 mg/dL or more since last test, decrease rate by 1 unit/hour. Otherwise, maintain same rate. Current BG 181 - 220 - If BG is lower than last test, maintain same rate. Otherwise, increase rate by 0.5 units/hour. Current BG 221 - 250 - If BG dropped 30 mg/dL or more since last test, maintain same rate. Otherwise, increase rate by 1 unit/hour. Current BG greater than 250 - Increase rate by 1 unit/hour AND bolus with Regular insulin IV as per IV Bolus Scale. Re-check BG in 30 minutes., Routine Rate/Dose Verify 07/15/2016 4:57 AM EDT 2.5 Units/hr 2.5 mL/hr Rate/Dose Change 07/15/2016 4:04 AM EDT 2.5 Units/hr 2.5 mL/hr iohexol (OMNIPAQUE) 350 mg/mL solution Given 07/11/2016 3:11 PM EDT 38,500 mg 38,500 mg 38,500 mg (110 mL), Intravenous, ONCE PRN, 1 dose, Starting on 07/11/16 at 1510, Until 07/11/16 at 1511, Per Protocol, Warning Vesicant/Irritant Medication , Routine ipratropium-albuterol (DUONEB) 0.5 mg-3 Given 07/14/2016 11:17 A M EDT 3 mLs mg(2.5 mg base)/3 mL nebulizer solution 3 mL 3 mL, Nebulization, EVERY 4 HOURS, First dose on Tue07/13/16 at 2200, Until Discontinued, Routine Given 07/14/2016 5:45 AM EDT 3 mLs Given 07/14/2016 2:13 AM EDT 3 mLs isosorbide mononitrate (IMDUR) CR tablet 60 mg Given 07/16/2016 6:16 AM EDT 60 mg 60 mg, Oral, EVERY MORNING, First dose on Tue07/14/16 at 0845, Until Discontinued, DO NOT CRUSH OR OPEN, STAT Given 07/15/2016 6:27 AM EDT 60 mg Given 07/14/2016 8:39 AM EDT 60 mg LORazepam (ATIVAN) injection 0.5 mg Given 07/13/2016 10:47 PM EDT 0.5 mg 0.5 mg, Intravenous, ONCE, 1 dose, On Tue07/13/16 at 2300, Routine LORazepam (ATIVAN) injection 0.5 mg Given 07/14/2016 5:45 AM EDT 0.5 mg 0.5 mg, Intravenous, ONCE, 1 dose, On Tue07/14/16 at 0545, Routine metFORMIN (GLUCOPHAGE) tablet 500 mg Given 07/16/2016 7:37 AM EDT 500 mg 500 mg, Oral, 2 TIMES DAILY WITH MEALS, First dose on Tue07/15/16 at 0800, Until Discontinued, Routine Given 07/15/2016 5:20 PM EDT 500 mg Given 07/15/2016 7:41 AM EDT 500 mg methylPREDNISolone sodium succinate (PF) Given 07/15/2016 9:17 P M EDT 30 mg (SOLU-Medrol) 40 mg/mL injection 30 mg 30 mg, Intravenous, 2 TIMES DAILY, 2 doses, First dose on Tue07/15/16 at 0900, Last dose on Tue07/15/16 at 2100 Given 07/15/2016 9:02 AM EDT 30 mg methylPREDNISolone sodium succinate (PF) Given 07/14/2016 8:36 A M EDT 60 mg (SOLU-Medrol) 40 mg/mL injection 60 mg 60 mg, Intravenous, 2 TIMES DAILY, First dose on Tue07/13/16 at 2315, Until Discontinued Given 07/13/2016 11:29 PM EDT 60 mg methylPREDNISolone sodium succinate (PF) Given 07/14/2016 8:13 P M EDT 60 mg (SOLU-Medrol) 40 mg/mL injection 60 mg 60 mg, Intravenous, 2 TIMES DAILY, 1 dose, First dose on Tue07/14/16 at 2100 meTOPROLOL (LOPRESSOR) injection 2.5 mg Given 07/13/2016 5:01 AM EDT 2.5 mg 2.5 mg, Intravenous, ONCE, 1 dose, On Tue07/13/16 at 0515 meTOPROLOL (LOPRESSOR) injection 5 mg Given 07/14/2016 5:15 AM EDT 5 mg 5 mg, Intravenous, EVERY 6 HOURS, First dose on Tue07/13/16 at 2315, Until Discontinued Given 07/13/2016 11:22 PM EDT 5 mg meTOPROLOL (LOPRESSOR) tablet 12.5 mg Given 07/09/2016 5:22 AM EDT 12.5 mg 12.5 mg, Oral, EVERY 6 HOURS SCHEDULED, First dose on Tue07/09/16 at 0000, Until Discontinued, Hold for SBP < 90, HR < 60, Routine Given 07/09/2016 12:01 AM EDT 12.5 mg meTOPROLOL (LOPRESSOR) tablet 12.5 mg Given 07/13/2016 8:05 AM EDT 12.5 mg 12.5 mg, Oral, ONCE, 1 dose, On Tue07/13/16 at 0715, Hold for heart rate < 60 or systolic blood pressure < 90., Routine meTOPROLOL (LOPRESSOR) tablet 12.5 mg Given 07/15/2016 7:41 AM EDT 12.5 mg 12.5 mg, Oral, ONCE, 1 dose, On Tue07/15/16 at 0700, Routine meTOPROLOL (LOPRESSOR) tablet 37.5 mg Given 07/12/2016 6:50 AM EDT 37.5 mg 37.5 mg, Oral, EVERY 6 HOURS SCHEDULED, First dose (after last modification) on Tue07/10/16 at 1200, Until Discontinued, Hold for SBP < 90, HR < 60, Routine Given 07/12/2016 12:03 AM EDT 37.5 mg Given 07/11/2016 6:12 PM EDT 37.5 mg meTOPROLOL (LOPRESSOR) tablet 37.5 mg Given 07/14/2016 12:12 PM EDT 37.5 mg 37.5 mg, Oral, EVERY 8 HOURS SCHEDULED, First dose (after last modification) on Tue07/14/16 at 1230, Until Discontinued, Routine meTOPROLOL (LOPRESSOR) tablet 37.5 mg Given 07/15/2016 6:27 AM EDT 37.5 mg 37.5 mg, Oral, EVERY 6 HOURS SCHEDULED, First dose (after last modification) on Tue07/14/16 at 1900, Until Discontinued, Routine Given 07/14/2016 11:58 PM EDT 37.5 mg Given 07/14/2016 6:53 PM EDT 37.5 mg meTOPROLOL tartrate (LOPRESSOR) tablet 1 00 mg 100 mg, Oral, EVERY 12 HOURS SCHEDULED ( 2 times per day), First dose (after last modification) on Tue07/16/16 at 2100, Until Discontinu ed, Routine meTOPROLOL tartrate (LOPRESSOR) tablet 2 5 mg Given 07/10/2016 7:02 AM EDT 25 mg 25 mg, Oral, EVERY 6 HOURS SCHEDULED, First dose (after last modification) on Tue07/09/16 at 1200, Until Discontinued, Hold for SBP < 90, HR < 60, Routine Given 07/09/2016 11:43 PM EDT 25 mg Given 07/09/2016 5:59 PM EDT 25 mg meTOPROLOL tartrate (LOPRESSOR) tablet 2 5 mg Given 07/13/2016 5:00 AM EDT 25 mg 25 mg, Oral, EVERY 12 HOURS SCHEDULED (2 times per day), First dose on Tue07/13/16 at 0515, Until Discontinued, Routine meTOPROLOL tartrate (LOPRESSOR) tablet 2 5 mg Given 07/13/2016 2:13 PM EDT 25 mg 25 mg, Oral, EVERY 8 HOURS SCHEDULED, First dose (after last modification) on Tue07/13/16 at 1400, Until Discontinued, Routine meTOPROLOL tartrate (LOPRESSOR) tablet 5 0 mg Given 07/16/2016 6:16 AM EDT 50 mg 50 mg, Oral, EVERY 6 HOURS SCHEDULED, First dose (after last modification) on Tue07/15/16 at 1200, Until Discontinued, Routine Given 07/16/2016 12:05 AM EDT 50 mg Given 07/15/2016 5:19 PM EDT 50 mg meTOPROLOL tartrate (LOPRESSOR) tablet 5 0 mg Given 07/16/2016 7:40 AM EDT 50 mg 50 mg, Oral, ONCE, 1 dose, On Tue07/16/16 at 0800, Routine nicotine (NICODERM CQ) Patch Applied 07/11/2016 8:46 AM 21 mg 10- Arm Upper 21 mg/24 hr patch 21 mg EDT (Right) 21 mg, Transdermal, DAILY, First dose on Tue07/08/16 at 2030, Until Discontinued, Routine Patch Applied 07/10/2016 8:43 AM EDT 21 mg 09- Arm Upper (Left) Patch Applied 07/09/2016 9:20 AM EDT 21 mg 02- Ear Behind (Right) nicotine (NICODERM CQ) 21 Patch Applied 07/16/2016 9:01 AM 21 mg 09- Arm Upper mg/24 hr patch 21 mg EDT (Left) 21 mg, Transdermal, DAILY, First dose on Tue07/14/16 at 1045, Until Discontinued, Routine Patch Applied 07/15/2016 9:02 AM EDT 21 mg 10- Arm Upper (Right) Patch Applied 07/14/2016 10:39 AM EDT 21 mg 09- Arm Upper (Left) nicotine (NICODERM CQ) 21 mg/24 hr patch Patch Removal Transdermal, DAILY, First dose on Tue at 0900, Until Discontinued, Remove nicotine 21 mg/24 hr patch nicotine (NICODERM CQ) 21 mg/24 hr patch Patch Verification Transdermal, 2 TIMES DAILY, First dose o n Tue07/14/16 at 2100, Until Discontinued, Verify nicotine 21 mg/24 hr patch nitroGLYcerin 50 mg in Rate/Dose Verify 07/09/2016 6:00 AM 15 mcg/min 4.5 mL/hr dextrose 5% 250 mL EDT infusion 10-50 mcg/min (3-15 mL/hr), Intravenous, CONTINUOUS, Starting on Tue07/08/16 at 2030, Until Tue07/12/16 at 1712, Initiate at 10 mcg/minute. Increase dose 10 mcg/minute every 10 minutes to titrate to SBP < 130, Routine Rate/Dose Verify 07/09/2016 4:00 AM EDT 15 mcg/min 4.5 mL/hr Rate/Dose Change 07/09/2016 3:09 AM EDT 15 mcg/min 4.5 mL/hr nitroGLYcerin 50 mg in Rate/Dose Verify 07/14/2016 10:00 AM 10 mcg/mi n 3 mL/hr dextrose 5% 250 mL EDT infusion 0-200 mcg/min (0-60 mL/hr), Intravenous, CONTINUOUS, Starting on Tue07/12/16 at 1730, Until Tue07/14/16 at 1023, For hypertension. Titrate to keep systolic blood pressure less than 120 mmHg. Initiate at 25 mcg/min. Adjust by 25 mcg/min every 5 minutes. Dose not to exceed 200 mcg/minute., Routine Rate/Dose Change 07/14/2016 8:16 AM EDT 10 mcg/min 3 mL/hr Rate/Dose Verify 07/14/2016 6:00 AM EDT 100 mcg/min 30 mL/hr oxyCODONE (ROXICODONE) immediate release tablet Given 07/15/2016 9:33 PM EDT 5 mg 5-15 mg 5-15 mg, Oral, EVERY 4 HOURS PRN, Starting on Tue07/12/16 at 1712, Until Tue07/16/16 at 1423, Pain, Give 5 mg 1 tab PO Q 4 hours PRN for pain >/= to 3-5/10. Give 5 mg 2 tabs PO Q 4 hours PRN for pain >/= to 6-8/10. Give 5 mg 3 tabs PO Q 4 hours PRN for pain >/= to 9-10/10. Call provider for new pain management orders if pain not relieved after an appropriate amount of time or if regimen is not tolerated. Hold if patient appears over sedated., Routine Given 07/13/2016 10:29 AM EDT 15 mg Given 07/13/2016 6:04 AM EDT 5 mg pantoprazole (PROTONIX) injection 40 mg Given 07/13/2016 8:05 AM EDT 40 mg 40 mg, Intravenous, DAILY, First dose on Tue07/12/16 at 1730, Until Discontinued, Reconstitute with 10 mL of normal saline to a concentration of 4 mg/mL and infuse slowly over 2 minutes. , Routine Given 07/12/2016 6:47 PM EDT 40 mg pantoprazole (PROTONIX) tablet 40 mg Given 07/16/2016 8:58 AM EDT 40 mg 40 mg, Oral, DAILY, First dose on Tue07/12/16 at 1730, Until Discontinued, DO NOT CRUSH OR OPEN If unable to take PO, may give IV, Routine Given 07/15/2016 8:59 AM EDT 40 mg Given 07/14/2016 8:38 AM EDT 40 mg potassium chloride (K-DUR/KLOR-CON) extended Given 9:21 AM EDT 40 mEq release tablet 40 mEq 40 mEq, Oral, EVERY 4 HOURS PRN, Starting on Tue07/09/16 at 0457, Until 07/12/16 at 1712, hypokalemia, Administer for serum potassium (mMol/L) of 3.6 - 3.8 See instructions for Potassium Protocol in online policies., Routine Given 07/09/2016 5:23 AM EDT 40 mEq potassium chloride (K-DUR/KLOR-CON) extended Given 9:25 AM EDT 40 mEq release tablet 40 mEq 40 mEq, Oral, ONCE, 1 dose, On Holly 07/15/16 at 0945, 20 mEq tablet may be dissolved in water for administration, Routine potassium chloride 20 mEq in 100 mL Given 07/14/2016 8:51 AM EDT 20 mEq 100 mL/hr 20 mEq, Intravenous, EVERY 1 HOUR PRN, Starting on Tue07/12/16 at 1712, Until Holly 07/15/16 at 0640, Administer over 60 Minutes, hypokalemia, Administer 2 doses for a serum potassium (mMol/L) of 3.3 - 3.8 See instructions for Potassium Protocol in online policies. Given 07/13/2016 12:50 AM EDT 20 mEq 100 mL/hr Given 07/12/2016 11:43 PM EDT 20 mEq 100 mL/hr propofol (DIPRIVAN) Rate/Dose Verify 07/12/2016 10:00 40.053 mcg/kg /min 18 mL/hr infusion PM EDT 0-50 mcg/kg/min ? 74.9 kg (0-22.47 mL/hr, rounded to 0-22.5 mL/hr), Intravenous, CONTINUOUS, Starting on Tue07/12/16 at 1730, Until Tue07/14/16 at 1023, Titrate to sedation level of RASS Goal (-) 1. Start at 10 mcg/kg/min, adjust rate by 5 mcg/kg/min every 3 minutes. Dose not to exceed 50 mcg/kg/minute. Discontinue upon extubation., Routine Rate/Dose Change 07/12/2016 9:19 PM EDT 40 mcg/kg/min 18 mL/hr Rate/Dose Change 07/12/2016 9:00 PM EDT 20 mcg/kg/min 9 mL/hr senna-docusate (PERICOLACE) 8.6-50 mg per Given 2016 8:21 PM EDT 2 tablets tablet 2 tablet 2 tablet, Oral, DAILY, First dose on Tue07/13/16 at 2100, Until Discontinued, Post-op day 1, Routine sodium chloride 0.9 % flush 5 mL Given 07/12/2016 8:35 AM EDT 5 mLs 5 mL, Intravenous, 2 TIMES DAILY, First dose on Holly 07/08/16 at 2100, Until Discontinued, Routine Given 07/11/2016 8:05 PM EDT 5 mLs Given 07/09/2016 8:43 PM EDT 5 mLs sodium chloride 0.9 % flush 5 mL Given 07/16/2016 6:18 AM EDT 5 mLs 5 mL, Intravenous, EVERY 8 HOURS, First dose on Tue07/14/16 at 1330, Until Discontinued, Routine Given 07/15/2016 9:17 PM EDT 5 mLs Given 07/15/2016 12:53 PM EDT 5 mLs sodium chloride 0.9% Rate/Dose Verify 07/09/2016 12:00 AM 100 mL/hr 100 mL/hr infusion EDT 100 mL/hr, Intravenous, CONTINUOUS, Starting on Holly 07/08/16 at 2030, Until Tue07/09/16 at 0129, Recovery (Rec[facility]-Hospital Unit) Rate/Dose Verify 07/08/2016 10:00 PM EDT 100 mL/hr 100 mL/hr New Bag 07/08/2016 8:35 PM EDT 100 mL/hr 100 mL/hr sodium chloride 0.9% Rate/Dose Verify 07/14/2016 10:00 AM 20 mL/hr 20 mL/hr infusion EDT 0-500 mL/hr, Intravenous, CONTINUOUS, Starting on Tue07/12/16 at 1730, Until Tue07/14/16 at 1023, Bolus 250 mL every 5 minutes as needed for volume replacement to maintain cardiac index greater than or equal to 2.0 L/min/M2. Maximum volume 2 L. Call housekeeper and laundry assistant for additional fluid orders: pager #[phone]. Rate/Dose Verify 07/14/2016 8:00 AM EDT 20 mL/hr 20 mL/hr Rate/Dose Verify 07/14/2016 6:00 AM EDT 20 mL/hr 20 mL/hr sodium chloride 0.9% Rate/Dose Verify 07/13/2016 12:00 AM 30 mL/hr 30 mL/hr infusion EDT 10-30 mL/hr, Intravenous, DAILY PRN, Starting on Tue07/12/16 at 1712, Until Tue07/14/16 at 1308, Side port TKO rate, per [facility] nursing protocol. Rate/Dose Verify 07/12/2016 10:00 PM EDT 30 mL/hr 30 mL/hr Rate/Dose Verify 07/12/2016 6:00 PM EDT 30 mL/hr 30 mL/hr sodium chloride 0.9% Rate/Dose Verify 07/12/2016 6:00 PM 200 mL/hr 2 00 mL/hr infusion EDT 10-30 mL/hr, Intravenous, DAILY PRN, Starting on Tue07/12/16 at 1712, Until Tue07/14/16 at 1308, Side port TKO rate, per CC nrusing protocol. New Bag 07/12/2016 4:50 PM EDT 200 mL/hr 200 mL/hr documented in this encounter Active and Recently Administered Medications Times are shown in EDT. Scheduled Medication Order 07/14/2016 07/15/2016 07/16/2016 acetaminophen (OFIRMEV) injection 1,000 mg (COMPLETED) 0131 (Given - Provider: Hannah Gomez RN)0700 (Given - Provider: Hannah Gomez RN) 1,000 mg, Intravenous, at 400 mL/hr, CARLITOS RY 8 HOURS SCHEDULED, 2 doses, First dose on Tue07/14/16 at 0145, Last dose on Tue07/14/16 at 0600, Maximum dose of acetaminophen is 4000 mg from all sources in 24 hours., Routine acetaminophen (TYLENOL) tablet 1,000 mg 0000 (Not Give n - Provider: Hannah Gomez RN - Reason: See comment - Comment: Ofirmev ordered instead)0600 (Not Given - Provider: Hannah Gomez RN - Reason: See comment - Comment: IV tylenol ordered)1212 (Given - Provider: Maral Kinney RN) 0627 (Given - Provider: Luisa Harris RN)1142 (Given - Provider: Mary Fox RN)1719 (Given - Provider: Mary Fox RN) 0000 (Given - Provider: Sarah Tolentino RN)0616 (Given - Provider: Sarah Tolentino RN)1200 (Due) 1,000 mg, Oral, EVERY 6 HOURS SCHEDULED, First dose on Tue07/13/16 at 1300, Until Discontinued, For pain when taking by mouth , Routine 181 (Given - Provider: Madai Marie RN)2358 (Given - Provider: Luisa Harris RN) aspirin chewable tablet 81 mg(Linked Group 1) 0838 (Gi aleida - Provider: Maral Kinney RN) 0859 (Given - Provider: Mary Fox RN) 0858 (Given - Provider: Mary Fox RN) 81 mg, Oral, DAILY, First dose on Tue at 0900, Until Discontinued, Start on post-op day 1 in the AM., Routine aspirin suppository 300 mg(Linked Group 1) 0838 (See A lternative - Provider: Maral Kinney RN) 0859 (See Alternative - Provider: Mary Fox RN) 0 858 (See Alternative - Provider: Mary Fox RN) 300 mg, Rectal, DAILY, First dose on Tue07/13/16 at 0900, Until Discontinued, Start on post-op day 1 in the AM, Routine atorvastatin (LIPITOR) tablet 80 mg 1811 (Given - Prov ider: Madai Marie RN) 1719 (Given - Provider: Mary Fox RN) 80 mg, Oral, EVERY EVENING, First dose o n Tue07/09/16 at 1700, Until Discontinued, Routine chlorhexidine (PERIDEX) 0.12 % oral solution 15 mL 083 7 (Given - Provider: Maral Kinney RN)2013 (Given - Provider: Luisa Harris RN) 0900 (Given - Provider: Mary Fox RN)2117 (Given - Provider: Sarah Tolentino RN) 0900 (Not Given - Provider: Mary Fox RN - Reason: Medication not available) 15 mL, Oral, EVERY 12 HOURS SCHEDULED (2 times per day), First dose on Tue07/12/16 at 2100, Until Discontinued, [place] teeth, Routine furosemide (LASIX) injection 20 mg 0839 (Given - Provi almita: Maral Kinney RN)1806 (Given - Provider: Madai Marie, HEAVEN) 0926 (Given - Provider: Mary Fox, HEAVEN)1727 (Given - Provider: Mary Fox RN) 0900 (Not Given - Provider: Mary Fox RN - Reason: Per MD Order - Comment: Jasmine Boston BILL SORTER) 20 mg, Intravenous, 2 TIMES DAILY, First dose on Tue07/13/16 at 0900, Until Discontinued furosemide (LASIX) injection 20 mg (COMPLETED) 0500 (G iven - Provider: Hannah Gomez, HEAVEN) 20 mg, Intravenous, ONCE, 1 dose, Tue07/14/16 at 0345 glipiZIDE (GLUCOTROL) tablet 20 mg 09 (Given - Provider: Mary Fox RN) 0737 (Given - Provider: Mary Fox RN) 20 mg, Oral, EVERY MORNING BEFORE BREAKF AST, First dose on Tue07/15/16 at 0730, Until Discontinued, Administer 30 minutes before the meal. Consider holding dose if patient is not eating. , Routine insulin lispro (humaLOG) VIAL injection 0-9 Units (CAN CELED) 0800 (Not Given - Provider: Maral Kinney RN - Reason: Order parameters not met)1200 (Not Given - Provider: Maral Kinney RN - Reason: Order parameters not met)2011 (Given - Provider: Luisa Harris, HEVAEN) 0-9 Units, Subcutaneous, 3 TIMES DAILY W ITH MEALS, First dose on Tue07/13/16 at 1700, Until Discontinued, Give 1 unit for every 8 grams carbohydrate Hold if not eating, Routine insulin lispro (humaLOG) VIAL injection 2-8 Units (CANCELED) (Linked Group 2) 0741 (Given - Provider: Mary Fox RN)1144 (Given - Provider: Mary Fox RN) 2-8 Units, Subcutaneous, 3 TIMES DAILY B EFORE MEALS, First dose on Tue07/15/16 at 0730, Until Discontinued, CORRECTION BOLUS Moderate BG 140 - 160 Give 2 units BG 161 - 200 Give 4 units BG 201 - 240 Give 6 units BG greater than 240, give 8 units and recheck BG in 2 hours. If BG remains greater than 240, repeat 8 units (no more than three times) & call for new basal insulin orders. If less than 240 after two hours, give no insulin and resume prior schedule. , Routine insulin lispro (humaLOG) VIAL injection 2-8 Units 1725 (Given - Provider: Mary Fox RN)2116 (Given - Provider: Sarah Tolentino, RN) 0000 (Not Given - Provider: Sarah Tolentino, RN - Reason: Order parameters not met)0403 (Given - Provider: Sarah Tolentino, RN)0738 (Given - Provider: Mary Fox RN) 2-8 Units, Subcutaneous, EVERY 4 HOURS S CHEDULED, First dose on Holly 07/15/16 at 1600, Until Discontinued, CORRECTION BOLUS Moderate BG 140 - 160 Give 2 units BG 161 - 200 Give 4 units BG 201 - 240 Gi 1200 (Not Given - Provider: Mary Fox RN - Reason: Order parameters not met) ve 6 units BG greater than 240, give 8 u nits and recheck BG in 2 hours. If BG remains greater than 240, repeat 8 units (no more than three times) & call for new basal insulin orders. If less than 24 0 after two hours, give no insulin and resume prior schedule., R outine insulin lispro protamine-insulin lispro 75/25 (humaLOG MIX 75/25) injection 15 Units 1726 (Given - Provider: Jose Patton) 15 Units, Subcutaneous, DAILY BEFORE DIN NER, First dose on Holly 07/15/16 at 1630, Until Discontinued, Routine insulin lispro protamine-insulin lispro 75/25 (humaLOG MIX 75/25) injection 25 Units (COMPLETED) 1145 (Given - Provider: Jose Patton) 25 Units, Subcutaneous, ONCE, 1 dose, Holly 07/15/16 at 1045, STAT insulin lispro protamine-insulin lispro 75/25 (humaLOG MIX 75/25) injection 25 Units 0738 (Given - Provid er: Mary Fox RN) 25 Units, Subcutaneous, DAILY BEFORE ERIN AKFAST, First dose on Tue07/16/16 at 0800, Until Discontinued, Routine insulin regular human (HumuLIN;NovoLIN) 1unit/mL 150 Units in sodium chloride 0.9% 150 mL infusion (CANCELED) 0020 (Rate/Dose Verify - Provider: Hannah Gomez RN)0100 (Rate/Dose Verify - Provider: Hannah Gomez RN)0123 (Rate/Dose Verify - Provider: Hannah Gomez RN)0200 (Rate/Dose Verify - Provider: Hannah Gomez RN) 0000 (Rate/Dose Change - Provider: Brigido Harris RN)0104 (Rate/Dose Change - Provider: Luisa Harris RN)0202 (Rate/Dose Change - Provider: Luisa Harris RN)0302 (Rate/Dose Verify - Provider: Luisa Harris RN) 0.5-16 Units/hr (0.5-16 mL/hr), Intraven ous, at 0.5-16 mL/hr, CHANGE BAG EVERY EVENING, First dose on Tue07/12/16 at 1730, Until Discontinued, Type 2 diabetes. Current blood glucose 240 - 299 Titration- 0234 (Rate/Dose Change - Provider: Hannah Gomez RN - Comment: BG 191)0300 (Rate/Dose Verify - Provider: Hannah Gomez RN)0400 (Rate/Dose Verify - Provider: Hannah Gomez RN)0500 (Rate/Dose Verify - Provider: Hannah Gomez RN) 0404 (Rate/Dose Change - Provider: Luisa Harris RN)0457 (Rate/Dose Verify - Provider: Luisa Harris RN)0621 (Rate/Dose Change - Provider: Luisa Harris RN)0658 (Stopped - Provider: Luisa Harris RN) aim for target range of 140 - 180 mg/dL . Check BG every hour unless otherwise indicated. [[ Initial bolus of 8 units, then begin continuous infusion at 5 units/hour. ]] Current BG less than 80 - Sto 0546 (Rate/Dose Change - Provider: Hannah Gomez, HEAVEN - Comment: BG 277)0600 (Rate/Dose Verify - Provider: Hannah Gomez RN)0624 (Rate/Dose Verify - Provider: Hannah Gomez RN - Comment: BG 204) p insulin. Re-check BG in 30 minutes and as soon as BG is greater than 80, restart with rate 50% of previous rate. If BG less than 70, treat per hypoglycemia protocol. If infusion stopped after previo 0739 (Rate/Dose Change - Provider: Maral Kinney, RN)0800 (Rate/Dose Verify - Provider: Maral Kinney RN)1000 (Rate/Dose Verify - Provider: Maral Kinney RN)1044 (Rate/Dose Change - Provider: Maral Kinney, RN) us rate had been 0.5 unit/hour, recheck every hour and when BG greater than 100 and higher than last test restart at 0.5 unit/hour. Current BG 80 - 139 - If BG dropped 10 mg/dL or more since last catrachita 1200 (Rate/Dose Change - Provider: Maral Kinney RN)1400 (Rate/Dose Change - Provider: Maral Kinney, RN)1500 (Rate/Dose Change - Provider: Maral Kinney RN)1556 (Rate/Dose Change - Provider: Maral Kinney, RN) t, decrease rate by 50% and re-check in 30 minutes. Otherwise, decrease rate by 0.5 units/hour. Current BG 140 - 180 - If BG dropped 50 mg/dL or more since last test, decrease rate by 1 unit/hour. Ot 1816 (New Bag - Provider: Madai Marie, HEAVEN)2020 (Rate/Dose Change - Provider: Luisa Harris, HEAVEN)2107 (Rate/Dose Change - Provider: Luisa Harris, RN)2202 (Rate/Dose Change - Provider: Luisa Harris, HEAVEN) herwise, maintain same rate. Current BG 181 - 220 - If BG is lower than last test, maintain same rate. Otherwise, increase rate by 0.5 units/hour. Current BG 221 - 250 - If BG dropped 30 mg/dL or 2231 (Rate/Dose Change - Provider: Luisa Harris RN)2302 (Rate/Dose Change - Provider: Luisa Harris RN) more since last test, maintain same rate . Otherwise, increase rate by 1 unit/hour. Current BG greater than 250 - Increase rate by 1 unit/hour AND bolus with Regular insulin IV as per IV Bolus Scale. Re-check BG in 30 minutes., Routine ipratropium-albuterol (DUONEB) 0.5 mg-3 mg(2.5 mg base)/3 mL nebulizer solution 3 mL (CANCELED) 0213 (Given - Provider: Jose Callahan CP)0545 (Given - Provider: Mukesh Pan RCP)1117 (Given - Provider: Trevor Maher RCP) 3 mL, Nebulization, EVERY 4 HOURS, First dose on Tue07/13/16 at 2200, Until Discontinued, Routine isosorbide mononitrate (IMDUR) CR tablet 60 mg 0839 (G iven - Provider: Maral Kinney RN) 0627 (Given - Provider: Luisa Harris RN) 0616 (Given - Provider: Sarah Tolentino RN) 60 mg, Oral, EVERY MORNING, First dose o n Tue07/14/16 at 0845, Until Discontinued, DO NOT CRUSH OR OPEN, STAT LORazepam (ATIVAN) injection 0.5 mg (COMPLETED) 0545 ( Given - Provider: Hannah Gomez, HEAVEN) 0.5 mg, Intravenous, ONCE, 1 dose, Tue07/14/16 at 0545, Routine magnesium hydroxide (MILK OF MAGNESIA) oral suspension 10 mL 0900 (Not Given - Provider: Maral Kinney RN - Reason: Patient/family refused) 0900 (Not Given - Provider: Mary Fox RN - Reason: Patient/family refused) 0900 (Not Given - Provider: Mary Fox RN - Reason: Patient/family refused) 10 mL, Oral, DAILY, First dose on Tue at 0900, Until Discontinued, Post- op day 2. Do not use with renal insufficiency., Routine metFORMIN (GLUCOPHAGE) tablet 500 mg 074 1 (Given - Provider: Mary Fox RN)1720 (Given - Provider: Mary Fox RN) 0737 (Given - Provider: Mary Fox RN) 500 mg, Oral, 2 TIMES DAILY WITH MEALS, First dose on Tue07/15/16 at 0800, Until Discontinued, Routine methylPREDNISolone sodium succinate (PF) (SOLU-Medrol) 40 mg/mL injection 30 mg (COMPLETED) 901 (Given - Provider: Mary Fox RN)2116 (Given - Provider: Sarah Tolentino RN) 30 mg, Intravenous, 2 TIMES DAILY, 2 dos es, First dose on Tue07/15/16 at 0900, Last dose on Tue07/15/16 at 2100 methylPREDNISolone sodium succinate (PF) (SOLU-Medrol) 40 mg/mL injection 60 mg (CANCELED) 835 (Given - Provider: Maral Kinney RN) 60 mg, Intravenous, 2 TIMES DAILY, First dose on Tue07/13/16 at 2315, Until Discontinued methylPREDNISolone sodium succinate (PF) (SOLU-Medrol) 40 mg/mL injection 60 mg (COMPLETED) 2012 (Given - Provider: Luisa Harris RN) 60 mg, Intravenous, 2 TIMES DAILY, 1 dose, First dose on 06/24 at 2100 meTOPROLOL (LOPRESSOR) injection 5 mg (CANCELED) 514 (Given - Provider: Hannah Gomez RN)111 (Not Given - Provider: Maral Kinney RN - Reason: Medication Discontinued) 5 mg, Intravenous, EVERY 6 HOURS, First dose on Tue07/13/16 at 2315, Until Discontinued meTOPROLOL (LOPRESSOR) tablet 12.5 mg (COMPLETED) 740 (Given - Provider: Mary Fox RN) 12.5 mg, Oral, ONCE, 1 dose, Tue07/15/16 at 0700, Routine meTOPROLOL (LOPRESSOR) tablet 37.5 mg (CANCELED) 121 (Given - Provider: Maral Kinney RN) 37.5 mg, Oral, EVERY 8 HOURS SCHEDULED, First dose on Tue07/14/16 at 1230, Until Discontinued, Routine meTOPROLOL (LOPRESSOR) tablet 37.5 mg (CANCELED) 185 (Given - Provider: Madai Marie RN)2358 (Given - Provider: Luisa Harris RN) 0627 (Given - Provider: Luisa Harris RN) 37.5 mg, Oral, EVERY 6 HOURS SCHEDULED, First dose on Tue07/14/16 at 1900, Until Discontinued, Routine meTOPROLOL tartrate (LOPRESSOR) tablet 100 mg 100 mg, Oral, EVERY 12 HOURS SCHEDULED ( 2 times per day), First dose on Tue07/16/16 at 2100, Until Discontinued, Routine meTOPROLOL tartrate (LOPRESSOR) tablet 50 mg (CANCELED) 1142 (Given - Provider: Mary Fox RN)1719 (Given - Provider: Mary Fox RN) 0005 (Given - Provider: Sarah Tolentino RN)0616 (Given - Provider: Sarah Tolentino RN) 50 mg, Oral, EVERY 6 HOURS SCHEDULED, Fi rst dose on Tue07/15/16 at 1200, Until Discontinued, Routine meTOPROLOL tartrate (LOPRESSOR) tablet 50 mg (COMPLETED) 0740 (Given - Provider: Mary Fox RN) 50 mg, Oral, ONCE, 1 dose, Tue07/16/16 at 0800, Routine nicotine (NICODERM CQ) 21 mg/24 hr patch 21 mg(Linked Group 3) 1039 (Patch Applied - Provider: Maral Kinney RN) 0902 (Patch Applied - Provider: Mary Fox RN) 0901 (Patch Applied - Provider: Mary gutierrez RN) 21 mg, Transdermal, DAILY, First dose on Tue07/14/16 at 1045, Until Discontinued, Routine nicotine (NICODERM CQ) 21 mg/24 hr patch Patch Removal(Linke d Group 3) 0900 (Patch Removed - Provider: Mary Fox RN) 0900 (Patch Removed - Provider: Mary Fox RN) Transdermal, DAILY, First dose on Tue at 0900, Until Discontinued, Remove nicotine 21 mg/24 hr patch nicotine (NICODERM CQ) 21 mg/24 hr patch Patch Verific ation(Linked Group 3) 2100 (Patch (dose and location) verified - Provider: Luisa Harris RN) 0900 (Patch (dose and location) verified - Provider: Mary Fox RN)2100 (Patch (dose and location) verified - Provider: Sarah Tolentino, HEAVEN) 0900 (Patch (dose and location) verified - Provider: Mary Fox RN) Transdermal, 2 TIMES DAILY, First dose o n 07/14/16 at 2100, Until Discontinued, Verify nicotine 21 mg/24 hr patch pantoprazole (PROTONIX) injection 40 mg(Linked Group 4 ) 0838 (See Alternative - Provider: Maral Kinney RN) 0859 (See Alternative - Provider: Mary Fox RN) 0858 (See Alternative - Provider: Mary Fox RN) 40 mg, Intravenous, DAILY, First dose on Tue07/12/16 at 1730, Until Discontinued, Reconstitute with 10 mL of normal saline to a concentration of 4 mg/mL and infuse slowly over 2 minutes. , Routine pantoprazole (PROTONIX) tablet 40 mg(Linked Group 4) 0 838 (Given - Provider: Maral Kinney RN) 0859 (Given - Provider: Mary Fox RN) 0858 (Given - Provider: Mary Fox RN) 40 mg, Oral, DAILY, First dose on Tue at 1730, Until Discontinued, DO NOT CRUSH OR OPEN If unable to take PO, may give IV, Routine potassium chloride (K-DUR/KLOR-CON) extended release tablet 40 mEq (COMPLETED) 09 (Given - Provider: Mary Fox RN) 40 mEq, Oral, ONCE, 1 dose, [facility] 07/15/16 at 0945, 20 mEq tablet may be dissolved in water for administration, Routine senna-docusate (PERICOLACE) 8.6-50 mg per tablet 2 tab let 2020 (Given - Provider: Luisa Harris RN) 2100 (Not Given - Provider: Sarah Tolentino RN - Reason: Patient/family refused) 2 tablet, Oral, DAILY, First dose on Tue07/13/16 at 2100, Until Discontinued, Post-op day 1, Routine sodium chloride 0.9 % flush 5 mL 1330 (Not Given - Pro vider: Maral Kinney RN - Reason: Patient/family refused)2130 (Not Given - Provider: Luisa Harris RN - Reason: See comment - Comment: line infusing) 0630 (Given - Provider: Luisa Harris RN)1253 (Given - Provider: Mary Fox RN)2117 (Given - Provider: Sarah Tolentino, HEAVEN) 0618 (Given - Provider: Sarah garcia, RN) 5 mL, Intravenous, EVERY 8 HOURS, First dose on Tue07/14/16 at 1330, Until Discontinued, Routine Continuous Medication Order 07/14/2016 07/15/2016 07/16/2016 nitroGLYcerin 50 mg in dextrose 5% 250 mL infusion (CA NCELED) 0023 (Rate/Dose Change - Provider: Hannah Gomez RN)0100 (Rate/Dose Verify - Provider: Hannah Gomez RN)0200 (Rate/Dose Verify - Provider: Hannah Gomez RN)0228 (New Bag - Provider: Hannah Gomez RN) 0-200 mcg/min (0-60 mL/hr), Intravenous, at 0-60 mL/hr, CONTINUOUS, Starting 07/12/16 at 1730, Until Tue07/14/16 at 1023, For hypertension. Titrate to keep systolic blood pressure less than 120 mmHg. 0236 (Rate/Dose Change - Provider: Hannah Gomez RN)0300 (Rate/Dose Verify - Provider: Hannah Gomez RN)0400 (Rate/Dose Verify - Provider: Hannah Gomez, HEAVEN)0407 (Rate/Dose Change - Provider: Hannah Gomez RN) Initiate at 25 mcg/min. Adjust by 25 mc g/min every 5 minutes. Dose not to exceed 200 mcg/minute., Routine 0500 (Rate/Dose Verify - Provider: Hannah Gomez RN)0600 (Rate/Dose Verify - Provider: Hannah Gomez RN)0727 (Paused - Provider: Maral Kinney RN - Comment: stopped per [place])0816 (Rate/Dose Change - Provider: Maral Kinney, RN) 0839 (Stopped - Provider: Evette Kinney RN)1000 (Rate/Dose Verify - Provider: Maral Kinney RN) sodium chloride 0.9% infusion (CANCELED) 0100 (Rate/Do se Change - Provider: Hannah Gomez RN)0200 (Rate/Dose Verify - Provider: Hannah Gomez RN - Comment: (Action automatically changed))0300 (Rate/Dose Verify - Provider: Hannah Gomez RN) 0-500 mL/hr, at 0-500 mL/hr, Intravenous , CONTINUOUS, Starting 07/12/16 at 1730, Until Tue07/14/16 at 1023, Bolus 250 mL every 5 minutes as needed for volume replacement to maintain cardiac index gre 0400 (Rate/Dose Verify - Provider: Hannah Gomez RN)0500 (Rate/Dose Verify - Provider: Hannah Gomez RN)0600 (Rate/Dose Verify - Provider: Hannah Gomez RN)0800 (Rate/Dose Verify - Provider: Maral Kinney, RN) ater than or equal to 2.0 L/min/M2. Maxi mum volume 2 L. Call housekeeper and laundry assistant for additional fluid orders: pager #[phone]. 5083 (Rate/Dose Verify - Provider: Maral Kinney RN) PRN Medication Order 07/14/2016 07/15/2016 07/16/2016 albuterol (PROVENTIL) nebulizer solution 2.5 mg 2.5 mg, Nebulization, EVERY 2 HOURS PRN, Starting Tue07/13/16 at 2300, Until Tue07/16/16 at 1423, Wheezing, Routine belladonna-opium (B&O SUPPRETTES) 16.2-60 mg suppository 60 mg 60 mg, Rectal, EVERY 8 HOURS PRN, Starti ng Tue07/13/16 at 0628, Until Tue07/16/16 at 1423, Pain, Routine bisacodyl (DULCOLAX) suppository 10 mg 10 mg, Rectal, DAILY PRN, Starting Holly at 0000, Until Tue07/16/16 at 1423, Constipation, Starting post-op day 3., Routine dextrose 50% injection 25-50 mL(Linked Group 5) 25-50 mL (12.5-25 g), Intravenous, EVERY 1 HOUR PRN, Starting Tue07/15/16 at 0642, Until Tue07/16/16 at 1423, Low blood sugar, For BG 50-70: 120 mL Juice or Regular (not diet) soda OR 12.5 gram (25 mL ) Dextrose 50% IV OR, if no IV access, 1 mg Glucagon IM. Recheck BG in 30 minutes. May repeat juice, dextrose or glucagon once per episode For BG less than 50: 240 mL Juice or Regular (not diet) sod a OR 25 grams (50 mL) Dextrose 50% IV OR , if no IV access, 1 mg Glucagon IM. Recheck BG in 30 minutes. May repeat juice, dextrose, or glucagon once per episode. To avoid extravasation, push Dextrose 50% SLOWLY (3 mL over 1 minute) in a pa tent, running IV, preferably a central line. For persistent hypoglycemia, consider longer-acting treatment for the duration of the active insulin., Routine glucagon (human recombinant) injection SolR 1 mg(Linked Group 5) 1 mg, Intramuscular, EVERY 1 HOUR PRN, S tarting Holly 07/15/16 at 0642, Until Tue07/16/16 at 1423, Low blood sugar, For BG 50-70: 120 mL Juice or Regular (not diet) soda OR 12.5 gram (25 mL) Dextrose 50% IV OR, if no IV access, 1 mg Glucagon I M. Recheck BG in 30 minutes. May repeat juice, dextrose or glucagon once per episode For BG less than 50: 240 mL Juice or Regular (not diet) soda OR 25 grams (50 mL) Dextrose 50% IV OR, if no IV acc ess, 1 mg Glucagon IM. Recheck BG in 30 minutes. May repeat juice, dextrose, or glucagon once per episode. To avoid extravasation, push Dextrose 50% SLOWLY (3 mL over 1 minute) in a patent, running IV, preferably a central line. For persistent hypoglycemia, consider longer-acting treatment for the duration of the active insulin. , Routine insulin regular human (HumuLIN;NovoLIN) 1 unit/mL 150 Units in sodium chloride 0.9%150 mL BOLUS 0-16 Units (CANCELED) 0546 (Bolus from Bag - Provider: Hannah Gomez RN)1556 (Bolus from Bag - Provider: Maral H Prior, RN) 0-16 Units, Intravenous, PER INSULIN PRO TOCOL, Starting 07/12/16 at 1712, Until Holly 07/15/16 at 0642, Per Protocol, BOLUS order. Type 2 Initial bolus 8 Units. Adjustment bolus per insulin infusion pro tocol: IV insulin Bolus scale: For BG in mg/dL (250-299 = 8 units, 300-359 = 12 units, greater than 360 = 16 units), Routine ipratropium-albuterol (DUONEB) 0.5 mg-3 mg(2.5 mg base)/3 mL nebulizer solution 3 mL 3 mL, Nebulization, 4 TIMES DAILY PRN, S tarting 07/14/16 at 1308, Until 07/16/16 at 1423, Wheezing, Routine ondansetron (ZOFRAN) injection 4 mg 4 mg, Intravenous, EVERY 8 HOURS PRN, St arting 07/12/16 at 1712, Until 07/16/16 at 1423, Nausea oxyCODONE (ROXICODONE) immediate release tablet 5-15 mg 2133 (Given - Provider: Sarah Tolentino, HEAVEN) 5-15 mg, Oral, EVERY 4 HOURS PRN, Starti ng Mon 07/12/16 at 1712, Until 07/16/16 at 1423, Pain, Give 5 mg 1 tab PO Q 4 hours PRN for pain >/= to 3-5/10. Give 5 mg 2 tabs PO Q 4 hours PRN for pain &g t;/= to 6-8/10. Give 5 mg 3 tabs PO Q 4 hours PRN for pain >/= to 9-10/10. Call provider for new pain management orders if pain not relieved after an appropriate amount of time or if regimen is not t olerated. Hold if patient appears over sedated., Routine potassium chloride 20 mEq in 100 mL (CANCELED) 0851 (G iven - Provider: Maral Kinney, RN) 20 mEq, Intravenous, EVERY 1 HOUR PRN, S tarting 07/12/16 at 1712, Until Holly 07/15/16 at 0640, Administer over 60 Minutes, hypokalemia, Administer 2 doses for a serum potassium (mMol/L) of 3.3 - 3.8 Se e instructions for Potassium Protocol in online policies. Linked Groups Order Group 1: aspirin chewable tablet 81 mgJump to med 81 mg, Oral, DAILY, First dose on Tue at 0900, Until Discontinued
Start on post-op day 1 in the AM.
Routine Or aspirin suppository 300 mgJump to med 300 mg, Rectal, DAILY, First dose on Tue07/13/16 at 0900, Until Discontinued
Start on post-op day 1 in the AM
Routine Group 2: POCT Fingerstick Glucose (CANCELED) Routine, 4 TIMES DAILY BEFORE MEALS & AT BEDTIME, First occurrence on Tue07/15/16 at 0700, Until Specified
Consider choosing FOUR TIMES A DAY BEFORE MEALS AND AT BEDTIME as frequency for: Patients who have a good hypoglycemia awareness. And insulin lispro (humaLOG) VIAL injection 2-8 Units (CANCELED)Jump to med 2-8 Units, Subcutaneous, 3 TIMES DAILY B EFORE MEALS, First dose on Tue07/15/16 at 0730, Until Discontinued
CORRECTION BOLUS Moderate BG 140 - 160&n bsp; Give 2 units BG 161 - 200 Give 4 units BG 201 - 240 Give 6 units &nbs p;BG greater than 240, give 8 units and recheck BG in 2 hours. If BG remains greater than 240, repeat 8 units (no more than three times) & call for new basal insulin orders. I f less than 240 after two hours, give no insulin and resume prior schedule.
Routine Group 3: nicotine (NICODERM CQ) 21 mg/24 hr patch 21 mgJump to med 21 mg, Transdermal, DAILY, First dose on Tue07/14/16 at 1045, Until Discontinued, Routine And nicotine (NICODERM CQ) 21 mg/24 hr patch Patch VerificationJump to med Transdermal, 2 TIMES DAILY, First dose o n Tue07/14/16 at 2100, Until Discontinued
Verify nicotine 21 mg/24 hr patch
And nicotine (NICODERM CQ) 21 mg/24 hr patch Patch RemovalJump to med Transdermal, DAILY, First dose on Tue at 0900, Until Discontinued
Remove nicotine 21 mg/24 hr patch
Group 4: pantoprazole (PROTONIX) tablet 40 mgJump to med 40 mg, Oral, DAILY, First dose on Tue at 1730, Until Discontinued
DO NOT CRUSH OR OPEN If unable to take PO, may give IV
Routine Or pantoprazole (PROTONIX) injection 40 mgJump to med 40 mg, Intravenous, DAILY, First dose on Tue07/12/16 at 1730, Until Discontinued
Reconstitute with 10 mL of normal saline to a concentration of 4 mg/mL and infuse slowly over 2 minutes.
Routine Group 5: dextrose 50% injection 25-50 mLJump to med 25-50 mL (12.5-25 g), Intravenous, EVERY 1 HOUR PRN, Starting Holly 07/15/16 at 0642, Until Tue07/16/16 at 1423, Low blood sugar
For BG 50- 70: 120 mL Juice or Regular (not t) soda OR 12.5 gram (25 mL) Dextrose 50 % IV OR, if no IV access, 1 mg Glucagon IM. Recheck BG in 30 minutes. May repeat juice, dextrose or glucagon once per epis ode For BG less than 50: 240 mL J uice or Regular (not diet) soda OR 25 grams (50 mL) Dextrose 50% IV OR, if no IV access, 1 mg Glucagon IM. Recheck BG in 30 minutes. & nbsp;May repeat juice, dextrose, or gluc agon once per episode. To avoid extravasation, push Dextrose 50% SLOWLY (3 mL over 1 minute) in a patent, running IV, preferably a central line.&nb sp;For persistent hypoglycemia, consid er longer-acting treatment for the duration of the active insulin.
Routine Or glucagon (human recombinant) injection SolR 1 mgJump to med 1 mg, Intramuscular, EVERY 1 HOUR PRN, S tarting Holly 07/15/16 at 0642, Until Tue07/16/16 at 1423, Low blood sugar
For BG 50-70: 120 mL Juice or Regular (not diet) soda OR 12. 5 gram (25 mL) Dextrose 50% IV OR, if no IV access, 1 mg Glucagon IM. Recheck BG in 30 minutes. May repeat juice, dextrose or glucagon once per episode * *For BG less than 50: 240 mL Juice or Re gular (not diet) soda OR 25 grams (50 mL) Dextrose 50% IV OR, if no IV access, 1 mg Glucagon IM. Recheck BG in 30 minutes. May repea t juice, dextrose, or glucagon once per episode. To avoid extravasation, push Dextrose 50% SLOWLY (3 mL over 1 minute) in a patent, running IV, preferably a central line. For persi stent hypoglycemia, consider longer-acti ng treatment for the duration of the active insulin.
Routine documented in this encounter Care Teams Shift Production Supervisor Relationship Specialty Start Date End Date Zay Montilla MD PCP - General Family Medicine 01/31/15 07/20/16 [address] [place] [address] documented as of this encounter
--- OUTSIDE RECORDS SUMMARY | 2021-10-30 01:57 | XMS_ITS | Encounter Summary ---
:1960 [place] [address] Care Team Providers Name Role Phone Zay Montilla MD Primary Care Provider Reason for Visit Auth/Cert Specialty Diagnoses / Procedures Referred By Contact Refer red To Contact Diagnoses Pain Chest pain, unspecified type NSTEMI (non-ST elevated myocardial infarction) Procedures CARDIAC CATHETERIZATION Referral ID Status Reason Start Date Expiration Date Visits Requ ested Visits Authorized [id number] 1 1 Encounter Details Date Type Department Care Team Description 07/12/2016 Anesthesia Event Main Operating Room Charlie Beyer MD [facility] [place] [address] [facility] [place] [address] [place] [address] Anesthesia Record Procedure Summary Procedure Name Responsible Anesthesia Start Anesthesia Stop Time Anesthesiologist Time @CABG, USING 2 Charlie Hurley MD 07/12/16 1205 07/12/16 16 49 CORONARY ARTERIAL GRAFTS (WRVU 39.88) (N/A Chest) Events Date Time Event Comment 07/12/2016 1205 Start 1211 AN Verify 1211 An Start Data 1215 Quick Note 1216 An Induction 1219 An Intubation 1221 BROOKLYNN PROBE ONLY 1234 Anesthesia Ready 1300 Procedure Start 1303 Sternotomy 1312 1355 CV Bypass init 1359 An Clamp start 1526 Sole Trimmer 1529 An Clamp Remove 1537 CP Bypass Ended 1602 Chest Closed 1610 Quick Note BROOKLYNN probe remove d, heme negative. 1630 Procedure Stop 1636 an stop data 1649 Recovery or ICU Handoff Patient care was transferred to the destination unit staff after review of the patient's medica l history, current anesthetic/surgi pavan status and plan, according to the Provider Handoff Checklist. 1649 Stop Name Total Midazolam 9 mg fentaNYL 1,000 mcg Propofol 100 mg Propofol INF 267.77 mg PHENYLephrine 480 mcg Vecuronium 30 mg Heparin 34,000 Units Protamine 260 mg Tranexamic Acid 750 mg Tranexamic Acid INF 228.45 mg Insulin Regular Human 54 Units Insulin Regular INF 33.67 Units ceFURoxime 1.5 g NORepinephrine INF 214 mcg Sodium Chloride 0.9% 300 mL Sodium Chloride 0.9% 400 mL Lactated Ringers 200 mL Agents Name O2 Air N2O Isoflurane (et) Blood No blood administrations on file. Lines, Drains, and Airways Type Details Placement Removal Arterial Line radial artery, left; 20 07/12/16 1656 by 7 0000 by gauge; Ajay; Mary Fox RN Sterile Prep, Sterile Gloves; not in at this time; 07/15/16 CVC Single/Intro. internal jugular vein, 07/12/16 1657 by 0000 by right; Ultrasound Mary Fox RN Guidance; Yes; 9 Fr; Arlenkondsalvatore; BROOKLYNN; CVC Protocol Performed; not in at this time; 07/15/16 PIV 07/08/16; cephalic vein 07/08/16 0000 by 7 1220 by (lateral side of arm)Ina Kari A, RN Barnes, Juli E, RN right; [id number] catheter system; 18 gauge, 1 in length; LIAISON INSPECTION LABORATORY ASSISTANT; 07/16/16; 1220 PA Catheter 07/12/16; jugular vein, 07/12/16 0000 by 7 0015 by right internal; 8 Fr; CVC Myrna Carrington, Myrna Carrington Protocol Performed; RN R, RN Ajay; 07/13/16; 0015 ETT Mask Ventilation: Adjunct 07/12/16 1226 by 07/12 2300 by (2) (OPA 100 mm); ETT Charlie Hurley MD Prior, Julia H RN Type: Cuffed, Oral; ETT Size: 8 mm; Mac Blade: 4; Notes: Asleep, Pre-O2, Stylette; Attempts: 1; Laryngoscopy Grade: 1; ETT Placement Verified By: Auscultation, Capnometry; Secured at Teeth: 24 cm; Inserted by: Guthikonda Urethral Catheter 07/12/16; 1245; Surgery 07/12/16 1245 by 07/13 1601 by longer than 2 hours, Grace Gonzalez RN Prior, Maral Soares RN Physician order; indwelling double lumen catheter; hydrophilic coated, latex; 14; inserted at this facility (Inserted by Russell Beyer RN. ); 1; 5; 10; none; drainage bag to dependent drainage; 07/13/16; 1601 Incision 07/12/16; 1327; leg; EVH; 07/12/16 1327 by 07/22 0816 by #11 stab incision top Grace Gonzalez RN Willia Dianne juarez groin; 07/22/18; 0816 HEAVEN Moreira Incision 07/12/16; 1328; chest; 07/12/16 1328 by 07/22/18 0816 by midline; 07/22/18; 0816 Grace Gonzalez RN Will iams, Dianne Moreira RN Lumbar/CSF Drain 07/12/16; 1424; Right; 07/12/16 1424 by 7 0600 by medial; leg; collapsible Grace Gonzalez RN Maria Elena or, Maral Soares RN closed device; KIT Martins; Sterile prep and drape; removed during prior shift; 07/13/16; 0600 Chest Tube 07/12/16; 1425; Left; 07/12/16 1425 by 07/13/16 1056 by anterior; mediastinum; 28 Grace Gonzalez RN Pr ior, Maral Soares RN fr. ; 07/13/16; 1056 Chest Tube 07/12/16; 1425; Right; 07/12/16 1425 by 07/13/16 1056 by anterior; mediastinum; 28 Grace Gonzalez RN Pr ior, Maral Soares RN fr; 07/13/16; 1056 documented in this encounter Social History Tobacco Use Types Packs/Day Years Used Date Current Every Day Smoker 1 40 Smokeless Tobacco: Never Used Comments: I've tried multiple times Alcohol Use Standard Drinks/Week Comments Yes 4 (1 standard drink = 0.6 oz pure alcoho l) Sex Assigned at Date Recorded Not on file documented as of this encounter OR Notes Anesthesia Postprocedure Evaluation - Carlitos Moss - 07/12/2016 6:50 PM EDT [facility] [place] of Anesthesiology Post-procedure Note Patient: Oleg Berry Procedure Summary Date Anesthesia Start Anesthesia Stop Room / Location 07/12/16 1205 1649 MH OR 18 / [facility] MAIN OR Procedure Diagnosis Surgeon Responsible Provider @CABG, USING 2 CORONARY ARTERIAL GRAFTS (WRVU 39.88) (N/A Chest); ENDOSCOPIC HARVEST VEIN(S) FOR CABG (WRVU 0.31) (Right Leg); @CABG, TWO VENOUS GRAFTS & ARTERIAL GRAFT (WRVU 7.93) (N/A Chest) (CAD) Valentino Arredondo MD Clark, Jeffrey A, MD All Anesthesia Providers: Anesthesiologist: Charlie Hurley MD [facility] Instructor: Carlitos Moss MD Last (1hr) Vitals: BP Temp Pulse Resp SpO2 100 % (07/12/16 1826) Patient Location: [facility] Level of Consciousness: Sedated (Pharmacologic/Intentional) Pain Management: Satisfactory Analgesia PONV: None Cardiovascular Status: Hemodynamically Stable Respiratory Status: Intubated/Ventilated and Room Air Postoperative Fluid Status: Intravascular EUvolemia Possible Anesthetic Complications: NONE apparent at time of evaluation Final Primary Anesthesia Type: General (The anesthetic type performed was the same as planned.) Comments: CARLITOS MOSS MD Anesthesia Preprocedure Evaluation - Carlitos Moss - 07/11/2016 6:56 PM EDT Images from the original note were not included. Pre-Anesthesia Evaluation for: Oleg Berry a 55 y.o. male. Procedure(s): @CABG, USING 2 CORONARY ARTERIAL GRAFTS (WRVU 39.88) ENDOSCOPIC HARVEST VEIN(S) FOR CABG (WRVU 0.31) @CABG, VENOUS & ARTERIAL GRAFT;SINGLE VEIN GRAFT (WRVU 3.61) Patient Active Problem List Diagnosis ??? Non ST elevation GA due to severe 3vD-- awaiting for CABG Tuesday ??? Left groin hematoma-- noted 07/11/2016 Left side. Post cath. ??? 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 Noted on aortogram done in operations label clerk Jun 2016. 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 ??? Hypertension ??? Financial difficulties--- barrier to medication use ??? Coronary artery disease 06/2016: NSTEMI. Cath showing 3vD. Surgery recommended. ??? Diabetes mellitus, type 2 ??? Tobacco abuse ??? Hyperlipidemia ??? Osteoarthritis No past medical history on file. No past surgical history on file. Social History Substance Use Topics ??? Smoking status: Current Every Day Smoker Packs/day: 1.00 Years: 40.00 ??? Smokeless tobacco: Never Used Comment: I've tried multiple times ??? Alcohol use 2.4 oz/week 4 Cans of beer per week History Drug Use ??? 3.00 per week ??? Special: Marijuana No Known Allergies Medications: MAR and/or home medications have been reviewed. Physical Exam: Vitals: 07/11/16 1812 BP: 125/77 Pulse: 104 Resp: Temp: Body mass index is 26.69 kg/(m^2). Height: 167.6 cm (5' 6) Weight - Scale: 75 kg (165 lb 5.5 oz) Airway Assessment: Mallampati: I TM distance: >3 FB Neck ROM: full Cardiovascular Assessment: cardiovascular exam normal Pulmonary Assessment: pulmonary exam normal Dental Assessment: Misc Assessment: Patient is wearing No contact(s). IV access: Peripheral line Anesthesia Plan: ASA 4 general, with a(n) intravenous induction Oleg Berry is a 55 y.o. 75kg male with NSTEMI and 3 vd scheduled for cabg x2. Medical history reviewed; significant for DM poorly controlled, PAD, HTN, L groin hematoma, COPD, and well-controlled GERD. Smoker who has quit since this admission. TTE 07/09: LVEF 56%, no significant valve abnormalities, basal anterolateral, basal inferolateral, mid anterolateral, and mid inferolateral wall segments are akinetic. The basal inferior, mid inferior, apical lateral, and apical inferior wall segments are hypokinetic. Anesthetic history: none on file. Pt denies issues with anesthesia in the past. Anesthetic plan: GA ETT. PAC, CVC, BROOKLYNN, carlos. Region - Intrathoracic Cardiac Informed Consent: Anesthetic plan and risks discussed with patient. Use of blood products discussed with patient who consented to blood products. Plan discussed with attending. PAT Staff Note documented in this encounter Plan of Treatment Not on filedocumented as of this encounter Visit Diagnoses Not on filedocumented in this encounter Administered Medications Inactive Administered Medications - up to 3 most recent administrations Medication Order MAR Action Action Date Dose Rate Site cefUROXime (ZINACEF) injection 1.5 Given 07/12/2016 12:43 PM EDT 1.5 g g PRN, Starting on Tue07/12/16 at 1243, Until Tue07/12/16 at 1655, Anesthesia Intra-op, Routine fentaNYL 50 mcg/mL multi-dose injection Given 07/12/2016 1:54 PM EDT 250 mcg PRN, Starting on Tue07/12/16 at 1221, Until Tue07/12/16 at 1655, Pain, Anesthesia Intra-op, Routine Given 07/12/2016 12:56 PM EDT 250 mcg Given 07/12/2016 12:21 PM EDT 500 mcg heparin (porcine) injection Given 07/12/2016 2:14 PM EDT 10,000 Units PRN, Starting on Tue07/12/16 at 1326, Until Tue07/12/16 at 1655, Anesthesia Intra-op, Routine Given 07/12/2016 1:39 PM EDT 19,000 Units Given 07/12/2016 1:26 PM EDT 5,000 Units insulin regular human Rate/Dose Change 07/12/2016 2:14 20 Units/hr 20 mL/hr (HumuLIN;NovoLIN) 1unit/mL PM EDT 150 Units in sodium chloride 0.9% 150 mL infusion CONTINUOUS PRN, Starting on Tue07/12/16 at 1356, Until Tue07/12/16 at 1655, Anesthesia Intra-op, Routine New Bag 07/12/2016 1:56 PM EDT 10 Units/hr 10 mL/hr insulin regular human VIAL injection Given 07/12/2016 3:06 PM EDT 20 Units PRN, Starting on Tue07/12/16 at 1355, Until Tue07/12/16 at 1655, Anesthesia Intra-op, Routine Given 07/12/2016 2:45 PM EDT 20 Units Given 07/12/2016 2:14 PM EDT 10 Units lactated ringers infusion New Bag 07/12/2016 12:05 PM EDT CONTINUOUS PRN, Starting on Tue07/12/16 at 1205, Until Tue07/12/16 at 1655, Anesthesia Intra-op midazolam (PF) (VERSED) 1 mg/mL multi-dose Given 07/12/2016 4:02 PM EDT 2 mg injection PRN, Starting on Tue07/12/16 at 1206, Until Tue07/12/16 at 1655, Sleep, Anesthesia Intra-op, Routine Given 07/12/2016 3:44 PM EDT 2 mg Given 07/12/2016 12:11 PM EDT 5 mg NORepinephrine 16 mcg/mL Rate/Dose Change 07/12/2016 4:09 PM 2 mcg/ min 7.5 mL/hr (standard ADULT and Yoni EDT greater than 20 kg) infusion CONTINUOUS PRN, Starting on Tue07/12/16 at 1529, Until Tue07/12/16 at 1655, Anesthesia Intra-op, Routine Rate/Dose Change 07/12/2016 3:54 PM EDT 4 mcg/min 15 mL/hr Rate/Dose Change 07/12/2016 3:47 PM EDT 6 mcg/min 22.5 mL/hr PHENYLephrine HCl in NS (PF) Given 07/12/2016 12:58 PM EDT 80 mc g (MITCH-SYNEPHRINE) 0.8 mg/10 mL (80 mcg/mL) multi-dose injection Syrg PRN, Starting on Tue07/12/16 at 1258, Until Tue07/12/16 at 1655, Anesthesia Intra-op, Routine Given 07/12/2016 12:32 PM EDT 160 mcg Given 07/12/2016 12:28 PM EDT 160 mcg propofol (DIPRIVAN) 10 mg/mL bolus injection Given 12:21 PM EDT 100 mg (Anesthesia) PRN, Starting on Tue07/12/16 at 1221, Until Tue07/12/16 at 1655, Anesthesia Intra-op propofol (DIPRIVAN) Rate/Dose 07/12/2016 4:34 75 mcg/kg/min 33.7 mL/ hr infusion Change PM EDT CONTINUOUS PRN, Starting on Tue07/12/16 at 1545, Until Tue07/12/16 at 1655, Anesthesia Intra-op, Routine New Bag 07/12/2016 3:45 PM EDT 50 mcg/kg/min 22.5 mL/hr protamine injection Given 07/12/2016 3:47 PM EDT 260 mg PRN, Starting on Tue07/12/16 at 1547, Until Tue07/12/16 at 1655, Anesthesia Intra-op, Routine sodium chloride 0.9% infusion New Bag 07/12/2016 12:05 PM EDT CONTINUOUS PRN, Starting on Tue07/12/16 at 1205, Until Tue07/12/16 at 1655, Anesthesia Intra-op sodium chloride 0.9% infusion New Bag 07/12/2016 12:36 PM EDT CONTINUOUS PRN, Starting on Tue07/12/16 at 1236, Until Tue07/12/16 at 1655, Anesthesia Intra-op tranexamic acid (CYKLOKAPRON) 100 mg/mL Given 07/12/2016 12:35 P M EDT 750 mg bolus injection (Anesthesia) PRN, Starting on Tue07/12/16 at 1235, Until Tue07/12/16 at 1655, Anesthesia Intra-op, Routine tranexamic acid (CYKLOKAPRON) New Bag 07/12/2016 1:05 PM 1 mg/kg/h r 0.7 mL/hr injection EDT CONTINUOUS PRN, Starting on Tue07/12/16 at 1235, Until Tue07/12/16 at 1655, Anesthesia Intra-op, Routine vecuronium (NORCURON) injection Given 07/12/2016 3:21 PM EDT 10 mg PRN, Starting on Tue07/12/16 at 1221, Until Tue07/12/16 at 1655, Anesthesia Intra-op, Routine Given 07/12/2016 1:54 PM EDT 5 mg Given 07/12/2016 1:00 PM EDT 5 mg documented in this encounter Care Teams Doctor Of Nursing Practice Relationship Specialty Start Date End Date Zay Montilla MD PCP - General Family Medicine 01/31/15 07/20/16 [address] [place] [address] documented as of this encounter
--- OUTSIDE RECORDS SUMMARY | 2021-10-30 01:57 | XMS_ITS | Encounter Summary ---
:1960 Author Organization [facility] Address [facility] [place] [address] Care Team Providers Name Role Phone Zay Montilla MD Primary Care Provider Reason for Visit Auth/Cert Specialty Diagnoses / Procedures Referred By Contact Refer red To Contact Diagnoses Pain Chest pain, unspecified type NSTEMI (non-ST elevated myocardial infarction) Procedures CARDIAC CATHETERIZATION Referral ID Status Reason Start Date Expiration Date Visits Requ ested Visits Authorized [id number] 1 1 Encounter Details Date Type Department Care Team Description 07/12/2016 Surgery Main Operating Room Valentino Pérez, @ CABG, USING 2 CORONARY Ana Cordova MD ARTERIAL GRAFTS ([facility] 39.88) [facility] [address] [place] [address] SURGERY [phone] [place], [place] [address] (Wo rk) Social History Tobacco [...] documented in this encounter Discharge Summaries Jasmine Boston, APPRENTICESHIP REPRESENTATIVE - 07/16/2016 10:40 AM EDT Inpatient - Discharge Summary Patient Name: Bertin Berry Patient Age: 55 y.o. Birthdate: 1960 Language: Cook Islander Race: White Ethnicity: Not nor Admit Date: 07/08/2016 Discharge Date: 07/16/2016 Attending Physician: Valentino Pérez MD Follow-up Recommendations for Providers: Please continue routine management of cardiovascular risk factors including blood pressure, lipids, glucose, etc. Please note any changes to medications. Patient to follow-up with PCP, Zay Montilla MD, in 1-2 weeks. Patient to follow-up with Inside Sales, Dr. Cotter, in two weeks. Patient to follow-up with Cardiac Surgery, Dr. Valentino Pérez, in ~ 4 weeks with CXR, EKG. Inpatient Provider Contact Information: [facility] Section of Cardiac Surgery [facility] [address] FAX [phone] Discharge Diagnoses (Hospital Problems) Primary Diagnoses: CAD [...] 39.88) performed by Valentino Pérez MD at [facility] MAIN OR ??? PRO CABG, ARTERY-VEIN, TWO N/A 07/12/2016 @CABG, TWO VENOUS GRAFTS & ARTERIAL GRAFT (WRVU 7.93) performed by Valentino Pérez MD at [facility] OR ??? PRO ENDOSCOPY W/VIDEO-ASST VEIN HARVEST, CABG Right 07/12/2016 ENDOSCOPIC HARVEST VEIN(S) FOR CABG (WRVU 0.31) performed by Valentino Pérez MD at [facility] MAIN OR Prior To Admission Medications [...] angina and a positive troponin from an IN. He has had class 2 nyha heart [...] Hospital Course: Bertin Berry was admitted to [facility] on 07/08/2016 via the Cardiology Service. [...] History Administered Date(s) Administered ??? Pneumococcal Polyvalent 05/28/2002 Smoking Status at Discharge: History Smoking [...] Valentino Pérez and/or the Cardiac Surgery Physician Direct Sales Consultant Team may be reached at . Weight: [...] Dr. Valentino Pérez. You may use a [place] or treadmill but avoid any pulling [...] friends, go to a movie, go to mu-ism, etc. Heavy activities: No hunting, skiing, jogging, snow shoveling, snowmobiling, lawn mowing, swimming, golf or tennis until after your return appointment with the surgeon. Do not ride motorcycles, [employer] tractors or horses. Avoid the use of [...] should resume a low fat, low cholesterol, [employer] Heart Association Diet/Diabetic diet. Driving: No driving [...] the outpatient Phase 2 Cardiac Rehabilitation at [facility] . The patient agrees to a referral to this program. The referral will be sent at discharge and the patient should be contacted by the Program within 1- 2 weeks from discharge. Future Appointments and Orders Future Orders Complete By Expires XR Chest PA & Lateral (Generic) [[id number] Custom] 08/15/2016 (Approximate) 07/15/2017 Process Instructions: Scheduling Instructions: Questions: Where will study be performed?: [facility] Rad[facility] Portable exam?: Reason for exam and clinical history: s/p cabg Other pertinent information: Stat read required?: Date of injury if applicable: Requested Time: EKG 12 Lead [EKG1 Custom] As directed Process Instructions: Scheduling Instructions: Questions: Which DH location will this be performed?: [place] Is a rhythm strip needed?: No If EKG Reason is Pre-op Evaluation, indicate diagnosis for surgery.: Should this service be billed to the research sponsor?: Referral to Cardiac Rehab [VAS579 Custom] As directed Process Instructions: If no progress note charted, please enter Clinical details in comments. Scheduling Instructions: Questions: My question or request is: CABG- Cardiac rehab at [facility] Arrangements for VNA/home care: As above. VN RN OR PCP TO PLEASE REMOVE CHEST TUBE SUTURES ON OR AFTER 07/23/16 Signed: JASMINE BOSTON APRN [facility] Section of Cardiac Surgery [facility] [address] FAX [phone] Date: 07/16/2016 CC: MD Haider Shirley, Lupillo Leos MD [address] [place] [address] [place] [address] documented in this encounter Discharge Instructions Patient InstructionsLiJasmine villavicencio APRN - 07/16/2016 10:51 AM EDT Diabetes [...] your chest incision. Your surgeon, Dr. Valentino Almanza. Mayela and/or the Cardiac Surgery Physician Direct Sales Consultant Team may be reached at . Weight: [...] Dr. Valentino Pérez. You may use a [place] Track or treadmill but avoid any pulling [...] friends, go to a movie, go to mu-ism, etc. Heavy activities: No hunting, skiing, jogging, snow shoveling, snowmobiling, lawn mowing, swimming, golf or tennis until after your return appointment with the surgeon. Do not ride motorcycles, [employer] tractors or horses. Avoid the use of [...] should resume a low fat, low cholesterol, [employer] Heart Association Diet/Diabetic diet. Driving: No driving [...] the outpatient Phase 2 Cardiac Rehabilitation at [facility] . The patient agrees to a referral [...] Kinney MSW - 07/16/2016 12:23 PM EDT ict development manager set up OCM coverage for most of his prescriptions - Novolin, metoprolol, atorvastatin, and imdur (nitro). The cost was $24. Coverage sheet was sent to Mellisa Logan and pharmacy. Patient will have to pay for colace and insulin syringes. He was appreciative for the assistance. He continues to wait to hear back about Medicaid status. Mary Fox, HEAVEN - 07/16/2016 12:20 PM EDT IV and telemetry discontinued. AVS reviewed, including new medications and sternal care. Postsurgical precautions reviewed as in AVS. Insulin teaching reviewed: syringe use, instilling air into glass vial, safe storing of used syringes in red sharps container. Lyla from endocrine visited with patient multiple times this morning to discuss insulin use at home; instruction sheet given to ptShanna Del Rosario go home with son Shabbir. Lyla Mohr APRN - 07/16/2016 10:41 AM EDT Follow Up Diabetes Consult Patient Interview Mr Pires tells me he is very happy to be discharged today, and that he is planning to get clam chowder when he is discharged. Requested teaching on insulin administration, director part for hospital unavailable before discharge. Patient endorses [...] discharge instructions as below Lyla Mohr APRN [facility] Endocrinology Diabetes Management Pager [phone] minutes of this 35 minute visit [...] he could no longer afford cable or [facility]...show choices limited.... History : Patient Active Problem List Diagnosis Code ??? Diabetes mellitus, type 2 E11.9 ??? Tobacco abuse Z72.0 ??? Hyperlipidemia E78.5 ??? Osteoarthritis M19.90 ??? 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 Peripheral artery disease--- severe bilateral iliac and [employer] disease I73.9 ??? Hypertension I10 ??? 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 Transferred from [facility], no overnight events, will dc PW today, [...] me he's been getting advances from his senior living fund to get by. Summary of Counseling [...] BG checks/correction to q4h Lyla Mohr APRN [facility] Endocrinology Diabetes Management Pager [phone] minutes of this 35 minute visit was spent counseling the patient on diabetes and the current treatment plan, reviewing all glucose and insulin data as well as relevant laboratory results with the patient, and coordination of care on the inpatient unit. Luisa Harris RN - 07/15/2016 7:36 AM EDT OUTCOME EVALUATION [...] ??? Osteoarthritis M19.90 ??? 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 Peripheral artery disease--- severe bilateral iliac and [employer] disease I73.9 ??? Hypertension I10 ??? Financial [...] given to him today. MARY ANTHONY Lyla Mohr APRN - 07/14/2016 1:58 PM EDT Follow Up [...] insulin to carb ratio Lyla Mohr APRN [facility] Endocrinology Diabetes Management Pager [phone] 15 minutes of this 25 minute visit [...] for xfer) + RAL (keep for xfer), Marcin, Edward Dispo: Transfer to [facility] Discussed on AM rounds. KIMBERLY SANTIAGO MD Trevor Maher RCP - 07/14/2016 7:59 AM EDT Initial settings: 10/8 100% ABG 7.5/35/94 Changed to CPAP 12 [...] Peripheral artery disease--- severe bilateral iliac and [employer] disease ??? Hypertension ??? Financial difficulties--- barrier to medication use ??? Coronary artery disease ??? 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 Diabetes mellitus, type 2 ??? Tobacco abuse ??? Hyperlipidemia Resolved Hospital Problems Diagnosis Date Resolved No resolved problems to display. Active Non-Hospital Problems Diagnosis ??? Osteoarthritis EXAM: Temp: [35.8 ??C (96.4 ??F)-37.7 ??C (99.9 ??F)] Heart Rate: [87-117] Resp: [8-] BP: (93-139)/(59-70) SpO2: [90 %-100 %] Heart Rate from SPO2: [88 bpm-117 bpm] Physical Exam Awake, alert, interactive Lungs clear Heart regular Abdomen soft Extremities warm IS PATIENT CRITICALLY ILL ? Is there a high potential of sudden, clinically significant, or life threatening deterioration? No Is there a need for direct personal assessment and management to treat/prevent multiple vital organfailure/deterioration? No Lyla Mohr APRN - 07/13/2016 1:53 PM EDT Follow Up [...] ??C (99.9 ??F)] Heart Rate: [87-117] Resp: [8-] BP: (93-139)/(59-68) SpO2: [90 %-100 %] Heart [...] insulin:carb ratio Will follow Lyla Mohr APRN [facility] Endocrinology Diabetes Management Pager [phone] 20 minutes of this 35 minute visit [...] 30 mL/hr (07/13/16 1000) ??? propofol Stopped (07/12/162201) ??? fentaNYL Stopped (07/13/16 1032) ??? nitroGLYcerin [...] hgb, hct plt Recent Labs 07/13/16 0410 07/12/16205407/12/16 1550 07/12/16 1430 07/12/16 0434 WBC 9.8* -- 11.0* -- 9.1 HGB 10.2* 11.1* 9.1* 8.5* 14.5 HCT 31.1* -- 27.5* 26.0* 43.5 PLATELET 136* -- 124* 172 181 Last 3 Lytes Recent Labs 07/13/16 0410 07/12/16205407/12/16 0434 07/11/16 0404 NA 140 -- 138 [...] R IJ, RAL, med CT x2 (D/C), Burch, [employer] Dispo: Likely remain [facility] today Discussed on AM rounds. KIMBERLY SANTIAGO MD Angy Mueller [facility] - 07/12/2016 9:43 PM EDT Mechanical Ventilation [...] awake enough to do so. Sujatha Kinney MSW - 07/12/2016 10:31 AM EDT ict development manager met with Pt for nearly an hour to discuss his psychosocial stressors - unemployment, medication costs, fuel assistance, food assistance, etc. ict development manager provided contact information for [facility] ([phone]) for food, fuel, utility assistance and [facility] office ([phone]) for fuel assistance, food stamps, utility assistance, vocational rehab. He reports having Medicaid in pending status after [place]. ict development manager tried to support Pt about medication assistance through , VNA services, and financial assistance through to help pay bills. Social Security disability application may be in his future with support. He reports he has been relying on his 401K since he lost his brisa January 2016. Plan to follow up with Pt about his needs and Social Security Disability application. Sherwin Castellanos - 07/12/2016 8:15 AM EDT Inpatient Cardiology Progress Note Patient Name: Bertin Berry Service: S2 Responsible Attending: Darrius Cotter MD Admission Date/Time: 07/08/2016 at 1727 PCP: Zay Montilla MD at [phone] ID: Bertin Berry is a 55 year [...] ??? Osteoarthritis M19.90 ??? 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 Peripheral artery disease--- severe bilateral iliac and [employer] disease I73.9 ??? Hypertension I10 ??? Financial [...] and dry without lesions Labs: Recent Labs 07/12/1643307/11/1640307/10/16 0504 WBC 9.1 10.6* 10.9* HGB 14.5 15.0 14.9 HCT 43.5 45.5 44.7 PLATELET 181 206 180 Recent Labs 07/12/1643307/11/164 07/09/16194607/09/1612907/08/16 1740 NA 138 139 -- 136 133* [...] 112 Recent Labs 07/12/16 0434 07/11/16 0404 07/10/16203407/08/16 1740 INR 0.9 -- -- -- 0.9 [...] CODE Roe Castellanos MD S2 Cardiology, pager [phone] 07/12/2016 Associated attestation - Rolf Zayas MD [...] Morning. Rolf Zayas MD Cardiovascular Medicine Pager: [phone] This patient meets or has met medical [...] at 1727 PCP: Zay Montilla MD at [phone] ID: Bertin Berry is a 55 year [...] ??? Osteoarthritis M19.90 ??? 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 nitroGLYcerin Stopped (07/10/16 0552) heparin (porcine) [...] 206 180 202 Recent Labs 07/11/16 0404 07/09/16194607/09/16 0130 07/08/16 1740 NA 139 -- 136 [...] CODE Kem Chatman MD S2 Cardiology, pager [phone] 07/11/2016 Associated attestation - Darrius Cotter MD - 07/11/2016 2:42 PM EDT Cardiology Attending Note I interviewed and examined the patient during comprehensive bedside rounds. I concur with the summary of interval events, active hospital-focused problem list and plan of care. I personally reviewed the medications, laboratory results, treatment decisions and updated the patient. Active Hospital Problems Diagnosis ??? 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 Trista Vora - 07/10/2016 12:11 PM EDT Inpatient Cardiology Progress Note Patient Name: Bertin Berry Service: S2 Responsible Attending: Darrius Cotter MD Admission Date/Time: 07/08/2016 at 8748 PCP: Zay Montilla MD at [phone] ID: Bertin Berry is a 55 year [...] ??? Osteoarthritis M19.90 ??? 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 heparin (porcine) 1,650 Units/hr (07/10/16 0593) ??? nitroGLYcerin Stopped (07/10/16 0552) heparin (porcine) [...] +diffuse tattoos Labs: Recent Labs 07/10/16 0504 03/17/12907/08/161739 WBC 10.9* 12.2* 14.0* HGB 14.9 15.1 15.1 HCT 44.7 45.0 44.3 PLATELET 180 202 217 Recent Labs 07/09/16194607/09/160 07/08/161739 NA -- 136 133* K 4.5 3.7 4.6 CL -- 94* 91* CO2 -- 25 21* BUN -- 9* 10 CREATININE -- 0.70* 0.77* GLUCOSE -- 270* 419* CALCIUM -- 8.9 9.8 Recent Labs 07/08/161739 PROT 7.7 ALBUMIN 4.4 BILITOT 0.3 BILIDIR 0.1 AST 247* ALT 41 ALKPHOS 112 Recent Labs 07/10/16 0503 07/09/16195707/09/1640 07/08/161739 INR -- -- -- -- 0.9 PTT 64* 45* 28 < > 36* < > = values in this interval not displayed. Cardiac Enzymes: Recent Labs 07/09/16194607/09/1640 07/09/16129 CK 921* 1648* 2875* TROPONINT 2.03* 4.26* [...] SQ daily - initiate meal-associated insulin: 1:10 [id number] ratio - initiate custom sliding scale - [...] Trista Vora MD, PGY-3 S2 Cardiology, pager [phone] 07/10/2016 Associated attestation - Darrius Cotter MD - 07/10/2016 5:55 PM EDT Cardiology Attending Note I interviewed and examined the patient during comprehensive bedside rounds. I concur with the summary of interval events, active hospital-focused problem list and plan of care. I personally reviewed the medications, laboratory results, treatment decisions and updated the patient. Active Hospital Problems Diagnosis ??? 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 male with NSTEMI, 3 vessel disease on cath, now awaiting CABG Active Problems: Patient Active Problem List Diagnosis Code ??? Diabetes mellitus, type 2 E11.9 ??? Tobacco abuse Z72.0 ??? Hyperlipidemia E78.5 ??? Osteoarthritis M19.90 ??? 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-- awaiting for CABG [...] (human recombinant), nitroGLYcerin Labs: Recent Labs 07/09/16 0130 07/08/16 174 WBC 12.2* 14.0* HGB 15.1 15.1 HCT 45.0 44.3 PLATELET 202 217 Recent Labs 07/09/16 0130 07/08/16 1740 NA 136 133* K 3.7 4.6 CL 94* 91* CO2 25 21* BUN 9* 10 CREATININE 0.70* 0.77* GLUCOSE 270* 419* CALCIUM 8.9 9.8 Recent Labs 07/08/16 174 PROT 7.7 ALBUMIN 4.4 BILITOT 0.3 BILIDIR 0.1 AST 247* ALT 41 ALKPHOS 112 Recent Labs 07/09/16 0940 07/09/16 0130 07/08/16 174 INR -- -- 0.9 PTT 28 20* 36* Cardiac Enzymes: Recent Labs 07/09/16 0940 07/09/1612907/08/16 174 CK 1648* 2875* 3402* TROPONINT 4.26* 9.50* [...] Full Code DARRIUS COTTER MD Team Pager: [phone] Cardiology Attending Note I interviewed and examined the patient during comprehensive bedside rounds. I concur with the summary of interval events, active hospital-focused problem list and plan of care. I personally reviewed the medications, laboratory results, treatment decisions and updated the patient. Active Hospital Problems Diagnosis ??? 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 I concur with the summary of interval events, active hospital-focused problem list and plan of care. I personally reviewed the medications, laboratory results, treatment decisions and updated the patient. Active Hospital Problems Diagnosis ??? 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 I concur with the summary of interval events, active hospital-focused problem list and plan of care. I personally reviewed the medications, laboratory results, treatment decisions and updated the patient. Active Hospital Problems Diagnosis ??? 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 No sob/headaache/dizziness. Pt on director of strategic alliances with cycling bp's q15mns, cont pulse ox. 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 No n/v/d. Afebrile. No cough/cold. +cmsx4. +7yhilznp4. <3sec refillx4. =aromx4. ls clear. abd soft n-tender. Gabrielle Buckley RN - 07/08/2016 5:45 PM EDT Cards at bedside Sangita Ford - 07/08/2016 5:38 PM EDT Emergency Department Bertin Berry is a 55 y.o. male who presents to [facility] in transfer from [facility] with chest pain that came on this morning while shoveling snow. EKG at outside hospital showed STelevations of 1mm in II, III, AVF without reciprocal changes. Reviewed by our third loader, felt notto meet acute STEMI criteria, but patient transferred urgently for reassessment in our ED by cardiology team, decision to be made on whether or not to cath emergently from there. No lytics given as OSH Inside Sales at bedside on arrival. 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 Cardiology was at bedside shortly after arrival and performing bedsideecho. Based on exam, echo etc it was felt by cardiology to take pt to the labeling strategist for intervention Final Assessment: nstemi documented in this encounter Miscellaneous Notes Consult Note - Ember Do RN - 07/16/2016 10:30 AM EDT [facility] Bertin Moreno Jamal was seen today regarding participation in the outpatient Phase 2 Cardiac Rehabilitation at [facility] . The patient agrees to a referral [...] no PT needs) SLIM LOCKHART, PT Pager: [phone] Inpatient Physical Therapy Plan of Care - Sarah Tolentino RN - 07/16/2016 7:27 AM EDT Problem: Patient Care Overview Goal: Plan of Care Review Outcome: Ongoing (Interventions Implemented as Appropriate) 07/15/16 1254 07/15/168 Coping/Psychosocial Plan Of Care Reviewed With -- [...] open, room near RN station, call bellin nishi. CPG GOAL OUTCOME EVALUATION: Goal: Fall Prevention-Safe [...] and family assist) SLIM LOCKHART, PT Pager: [phone] Inpatient Physical Therapy Problem: Acute Rehab Services Goal & Intervention Plan Goal: Bed Mobility Goal Stand Alone Therapy Goal Outcome: Ongoing (Interventions Implemented as Appropriate) 07/13/16 1207 Bed Mobility Goal Bed Mobility Goal, Date Established 07/13/16 Bed Mobility Goal, Time to Achieve 1 wk Bed Mobility Goal, Activity Type all bed mobility activities Bed Mobility Goal, Gordon Level independent Goal: Gait Training Goal Stand Alone Therapy Goal Outcome: Ongoing (Interventions Implemented as Appropriate) 07/13/16 1207 Gait Training Goal Gait Training Goal, Date Established 07/13/16 Gait Training Goal, Time to Achieve 1 wk Gait Training Goal, Gordon Level independent Gait Training Goal, Distance to [...] OUTCOME EVALUATION: Plan of Care - Slim Lockhart, PT - 07/13/2016 12:10 PM EDT Problem: [...] Pt seen for evaluation and gait in [facility]. Pt is quite anxious, but tolerated walking [...] and family assist) SLIM LOCKHART, PT Pager: [phone] Inpatient Physical Therapy Problem: Acute Rehab Services Goal & Intervention Plan Goal: Bed Mobility Goal Stand Alone Therapy Goal Outcome: Ongoing (Interventions Implemented as Appropriate) 07/13/16 1207 Bed Mobility Goal Bed Mobility Goal, Date Established 07/13/16 Bed Mobility Goal, Time to Achieve 1 wk Bed Mobility Goal, Activity Type all bed mobility activities Bed Mobility Goal, Gordon Level independent Goal: Gait Training Goal Stand Alone Therapy Goal Outcome: Ongoing (Interventions Implemented as Appropriate) 07/13/16 1207 Gait Training Goal Gait Training Goal, Date Established 07/13/16 Gait Training Goal, Time to Achieve 1 wk Gait Training Goal, Gordon Level independent Gait Training Goal, Distance to Achieve 150 Gait Training Goal, Additional Goal pt will go up and down 4 steps with rail independently Goal: Goal Transfer Training Stand Alone Therapy Goal Outcome: Ongoing (Interventions Implemented as Appropriate) 07/13/16 1207 Goal Transfer Training Transfer Training Goal, Date Established 07/13/16 Transfer Training Goal, Time to Achieve 1 wk Transfer Training Goal, Activity Type [id number]-uq-[id number]/edoiw-lh-xbp Transfer Train Goal, Gordon Level independent Plan of Care - Myrna Carrington RN - 07/13/2016 4:38 AM EDT Problem: Patient Care Overview Goal: Plan of Care Review Outcome: Ongoing (Interventions Implemented as Appropriate) 07/13/16 0428 Coping/Psychosocial Plan Of Care Reviewed With patient [...] Handling Outcome: Ongoing (Interventions Implemented as Appropriate) 07/12/16195507/13/1639907/13/16427 Restraint Interventions Safety Promotion/Fall Prevention -- fall [...] care. Outcome: Ongoing (Interventions Implemented as Appropriate) 03/21/17 0428 Skin Integrity Impairment, Risk/Actual (Adult) Skin Integrity/Wound Healing making progress toward outcome Problem: Cardiac Surgery (Adult) Goal: Signs and Symptoms of Listed Potential Problems Will be Absent, Minimized or Managed (Cardiac Surgery) Signs and symptoms of listed potential problems will be absent, minimized or managed by discharge/transition of care (reference Cardiac Surgery (Adult) CPG). Outcome: Ongoing (Interventions Implemented as Appropriate) 07/13/168 Cardiac Surgery Problems Assessed (Cardiac Surgery) all Problems Present (Cardiac Surgery) pain OR Attestation - Valentino Pérze MD - 07/12/2016 4:50 PM EDT Attestation: Case Date: 07/12/2016 I was present and I participated during the entire procedure (does not need to include opening and closing). VALENTINO PÉREZ MD 07/12/2016 Brief Op Note - Valentino Pérez MD - 07/12/2016 4:49 PM EDT Brief Operative Note Patient Name: Bertin Berry : [id number] MR#: [id number] Case Date: 07/12/2016 Surgeon: Surgeon(s) and Role: * Valentino Pérez MD - Primary * Huber Womack PA - Physician Direct Sales Consultant * Yoav Mendoza PA - Physician Direct Sales Consultant * Rosa Maria Rojas MD - Resident-Surgeon [...] 12:40 PM EDT 07/14/2016 Bertin Berry 1960 [id number] Preoperative Diagnosis: Coronary artery disease Non-STEMI Postoperative Diagnosis: Coronary artery diseaseNon-STEMI Procedure: CABG times 4: FOSS to LAD, SVG to om, svg to diag, LEAH to rca. Endoscopic vein harvest Surgeon: Valentino Pérez M.D. Direct Sales Consultant: Bob BAKER, Arnol VALENTIN Anesthesia: General endotracheal [...] the medial aspect of the knee. The [employer] XB7 system was used to dissect out [...] Care Overview Goal: Plan of Care Review 07/11/16131307/11/161929 Coping/Psychosocial Plan Of Care Reviewed With -- patient Plan of Care Review Progress no change -- Goal: Fall Prevention-Safe Patient Handling 07/11/16 1314 07/11/161929 Restraint Interventions Safety Promotion/Fall Prevention -- activity [...] Body Position -- independent Goal: Infection Control 07/11/161929 Safety Interventions Isolation Precautions standard precautions maintained [...] 07/11/16 1313 Health Knowledge, Opportunity to Enhance (Adult,NICU,[place],Obstetrics,Pediatric) Knowledgeable about Health Subject/Topic making progress toward [...] concern for aneurysm/pseudoaneursym. Patient's son, grandchildren, and xsjeioau-pu-qbe in to visit today. PLAN MOVING FORWARD: [...] in reach; room kept free of obstacles; television program director attached and alarms and settings reviewed q [...] Care Overview Goal: Plan of Care Review 07/10/16164807/11/16333 Coping/Psychosocial Plan Of Care Reviewed With -- patient Plan of Care Review Progress no change -- Goal: Fall Prevention-Safe Patient Handling 07/10/16164807/10/162024 Restraint Interventions Safety Promotion/Fall Prevention -- activity [...] friend will provide Goal: Interdisciplinary Rounds/Family Conf 07/11/16333 Interdisciplinary Rounds/Family Conf Participants patient;nursing OUTCOME EVALUATION [...] outcomes by discharge/transition of care. 07/10/16 1649 Health Knowledge, Opportunity to Enhance (Adult,NICU,,Obstetrics,Pediatric) Knowledgeable about Health Subject/Topic making progress toward outcome Plan of Care - Anastacio King RN - 07/10/2016 4:52 PM EDT Problem: Patient Care Overview Goal: Plan of Care Review Outcome: Ongoing (Interventions Implemented as Appropriate) 07/10/16 0800 07/10/16 1649 Coping/Psychosocial Plan Of Care Reviewed With patient [...] in reach; room kept free of obstacles; television program director attached and alarms and settings reviewed q [...] none Problem: Health Knowledge, Opportunity to Enhance (Adult,NICU,[place],Obstetrics,Pediatric) Goal: Identify Related Risk Factors and Signs [...] 07/10/16 0553 Health Knowledge, Opportunity to Enhance (Adult,NICU,[place],Obstetrics,Pediatric) Knowledgeable about Health Subject/Topic making progress toward outcome Initial Assessments - Samuel Garcia - 07/09/2016 1:42 PM EDT Office of Care Management Initial Assessment Samuel Garcia RN reviewed record and discussed patient with Care Team. Bingo Caller is assisting CORTES Howard, who is the rn case mgr assigned to pt's case. Source of Information: Patient Introduced self/reviewed role; services accepted. Reason for Hospitalization: Chest pain No past medical history on file. Hospitalizations Within the Past 30 Days: Pt transferred from [facility] Anticipated Length Of Stay (If known): Unknown [...] Prescription Coverage: No coverage Preferred [facility]acy: [facility] in [place] Other: n/a Primary Care Provider: Zay Montilla MD [phone] Patient/Caregiver Goals of Treatment: Return home Potential Needs for Transition of Care: Rehab/SNF: Need to be determined Home Health: Pt stated he would use [facility] if he had the financial means to [...] his financial situation. Concerns were addressed with [employer]KE OUT WORKER who will follow up with pt. Plan: CABG on Tuesday. Needs to be determined. Pt will likely return home upon d/c. A member of the Care Management team will continue to monitor progress, follow for continuity of care and assist with transition of care planning. Samuel Garcia RN Pager: [phone] Consult Note - Lyla Mohr APRN - 07/09/2016 1:31 PM EDT Diabetes Management [...] management and to provide a review of intermediate card tender diabetes care. Diabetes History: Bertin Berry has [...] Chatman who will place the above orders penitentiary diabetes care: Medications - Outpatient treatment regimen recommendations pending based on the hospital course. Monitoring - continue BG tid ac & hs Diet - low fat/low carb diet Exercise - weight-bearing exercise 30 min/day, as tolerated Thank you for allowing us to provide care for your patient Lyla Mohr APRN Endocrinology, Diabetes Management Team Pager [phone] Plan of Care - Angeli Galindo RN - 07/09/2016 5:12 AM EDT Problem: Patient Care Overview Goal: Plan of Care Review Outcome: Ongoing (Interventions Implemented as Appropriate) 07/09/16 0505 Coping/Psychosocial Plan Of Care Reviewed With patient [...] procedure are i n the results section. VASCULAR TECHNOLOGIST SONOGRAPHER SCAN 07/17/2016 12:00 Res ults for this [...] Routine 07/13/2016 4:10 Results f or this ([facility] AM EDT procedure are i n the [...] section. TYPE AND SCREEN Routine 07/11/2016 2:44 ([facility]) PM EDT ARTERIAL DUPLEX LEG STAT 07/11/2016 [...] Routine 07/09/2016 7:47 Results f or this ([facility] PM EDT procedure are i n the [...] Routine 07/09/2016 9:40 Results f or this ([facility] AM EDT procedure are i n the [...] Routine 07/09/2016 1:30 Results f or this ([facility] AM EDT procedure are i n the [...] STAT 07/08/2016 5:40 Results f or this ([facility] PM EDT procedure are i n the [...] original. EXAMINATION: XR CHEST PA AND LATERAL ([email or web address]) CLINICAL HISTORY: s/p cabg TECHNIQUE: PA and lateral COMPARISON: 07/15/2016 FINDINGS: Heart and mediastinum are within normal limits. Stable postoperative findings in the mediastinum. Lungs are clear. Stable tiny bilateral pleural effusions. No pulmonary edema or pneumothorax. Aeratio n of lung bases is improved since prior study IMPRESSION Tiny residual bilateral pleural effusion s Valentino Pérez MD IMG DX ORDERABLES SCAN DOC: VASCULAR TECHNOLOGIST SONOGRAPHER (07/17/2016 12:00 AM EDT) Narrative 07/17/2016 12:00 [...] ORDR/RSLT POCT Glucose (07/16/2016 11:55 AM EDT) athologist Signature POC Glucose 92 65 - [address] [facility] mg/dL [facility] Comment: Supplemental ranges: <140 mg/dL before meals <180 mg/dL all other times of the day Specimen Anatomical Collection Method Collection Time Receive d Time (Source) Location / / Volume Laterality Blood specimen 07/16/2016 11:55 7 (specimen) AM EDT 11:55 AM EDT Valentino Pérez MD POINT OF CARE TEST ORDERABLE S Performing Organization Address City/[facility]/ZIP Code Phon e Number [address] POCT Glucose (07/16/2016 7:34 AM EDT) athologist Signature POC Glucose 160 65 - 199 [facility] mg/dL [facility] Comment: Supplemental ranges: <140 mg/dL before meals <180 mg/dL all other times of the day Specimen Anatomical Collection Method Collection Time Receive d Time (Source) Location / / Volume Laterality Blood specimen 07/16/2016 7:34 AM 017 7:34 (specimen) EDT AM EDT Valentino Pérez MD POINT OF CARE TEST ORDERABLE S Performing Organization Address City/State/ZIP Code Phon e Number [address] (ABNORMAL) Differential, Automated (07/16/2016 4:13 AM EDT) [facility] gist Method Time Signature Neutrophils % 77.7 % [facility] LABORATORY Neutr Abs (ANC) 9.70 (H) 1.70 - [facility] [address] [facility] x10(3)/[facility] L LABORATORY Lymphocytes % 15.1 % [facility]ORY Lymphocytes Abs 1.9 0.9 - 3.2 [facility] x10(3)/[facility] LABORATORY Monocytes % 5.5 % [facility]ORY Monocyte Abs 0.7 0.3 - 0.9 [facility] x10(3)/[facility] LABORATORY Eosinophils % 0.0 % [facility]ORY Eosinophils Abs 0.0 0.0 - 0.4 [facility] x10(3)/[facility] LABORATORY Basophils % 0.1 % [facility] Basophils Abs 0.0 0.0 - 0.1 [facility] x10(3)/[facility] LABORATORY Immature Gran % 1.60 % [facility] Comment: Immature granulocytes(IG's)percentage an d absolute count will include metamyelocytes, myelocytes, and promyelo cytes. Blood smears from CBCs yielding IG's will be scanned manually for concor dance. If this scan disagrees with the automated IG or if promyelocytes are not ed, a manual differential will be performed. Madhuri Gran Abs 0.20 (H) 0.00 - 0.04 x10(3)/[facility] LABORATORY Specimen Anatomical Collection Method Collection Time Receive d Time (Source) Location / / Volume Laterality Blood specimen 07/16/2016 4:13 AM 017 4:30 (specimen) EDT AM EDT Resulting Agency Comment Spec In Lab Valentino Pérez MD HEMATOLOGY ORDERABLES Performing Organization Address City/State/[place] [address] (ABNORMAL) Hemogram (07/16/2016 4:13 AM EDT) Analysis Performed At Patho logist Time Signature WBC 12.5 (H) 4.0 - 9.5 [facility] x10(3)/[facility] LABORATORY RBC 3.28 (L) 4.58 - [facility] [address] [facility] x10(6)/[facility] LABORATORY Hemoglobin 9.9 (L) 13.7 - [facility] [place] 16.5 gm/dL [facility]OR[facility] Hematocrit 29.9 (L) 40.5 - [facility] [place] 48.5 % [facility] LABORATORY MCV 91.2 82.9 - [facility] [place] 93.1 [facility] LABORATORY MCH 30.2 27.5 - [facility] [place] 32.1 pg [facility] LABORATORY MCHC 33.1 32.0 - [facility] L[place] 35.7 gm/dL [facility] Platelets 268 145 - 357 [facility] x10(3)/[facility] LABORATORY RDWSD 44.0 36.0 - [place] 45.0 [facility] LABORATORY RDWCV 13.1 11.4 - [facility] 13.8 % [facility] LABORATORY MPV 10.8 7.6 - 12.9 [facility] LABORATORY nRBC % Auto 0.0 % [facility] LABORATORY nRBC Abs Auto 0.000 0.000 - [facility] [address] [facility] x10(3)/[facility] LABORATORY Specimen Anatomical Collection Method Collection Time Receive d Time (Source) Location / / Volume Laterality Blood specimen 07/16/2016 4:13 AM 017 4:30 (specimen) EDT AM EDT Resulting Agency Comment Spec In Lab Valentino Pérez MD HEMATOLOGY ORDERABLES Performing Organization Address City/State/[place] [address] (ABNORMAL) Basic Metabolic Panel (non-fasting) (07/16/2016 4:13 AM EDT) P athologist Signature Glucose Lvl 191 65 - 199 [facility] mg/dL [facility] Comment: Diabetes: >=200 mg/dL plus symp toms BUN 27 (H) 10 - 20 mg/dL [facility] LABORATORY Creatinine 0.78 (L) 0.80 - 1.50 mg/dL [facility]ORY Comment: Please note that the pediatric reference intervals supplied above were not validated at [facility]. Results from pediatri c patients should be interpreted in conjunction to the patient's age, height and muscle mass. Sodium 139 135 - 145 mmol/L [facility] Potassium 3.9 3.5 - 5.0 mmol/L [facility] Comment: Please note: ??Patients with WBC >100,00 0 may have falsely elevated Potassium levels. ??For accurate Potassium quantif ication in these patients send serum separator tube (gold top) for subsequent determinations. ??Contact the Clinical Chemistry Laboratory if there are any qu estions. Chloride 99 98 - 107 mmol/L [facility] CO2 23 22 - 31 mmol/L [facility] Anion Gap 17 (H) 5 - 15 mmol/L [facility] Calcium 8.7 8.5 - 10.5 mg/dL [facility] Estimated GFR >60 >=60 [facility] Comment: This estimated GFR (eGFR) [...] the following links into your internet browser. [email or web address] [email or web address] Specimen Anatomical Collection Method Collection Time Receive d Time (Source) Location / / Volume Laterality Blood specimen 07/16/2016 4:13 AM 017 4:30 (specimen) EDT AM EDT Resulting Agency Comment Spec In Lab Valentino Pérez MD CHEMISTRY ORDERABLES Performing Organization Address City/State/[place] [address] POCT Glucose (07/16/2016 3:58 AM EDT) athologist Signature POC Glucose 186 65 - 199 [facility] mg/dL [facility] Comment: Supplemental ranges: <140 mg/dL before meals <180 mg/dL all other times of the day Specimen Anatomical Collection Method Collection Time Receive d Time (Source) Location / / Volume Laterality Blood specimen 07/16/2016 3:58 AM 017 3:58 (specimen) EDT AM EDT Valentino Pérez MD POINT OF CARE TEST ORDERABLE S Performing Organization Address City/State/ZIP Code Phon e Number [address] POCT Glucose (07/15/2016 11:58 PM EDT) athologist Signature POC Glucose 122 65 - 199 [place] [place] mg/dL [facility] Comment: Supplemental ranges: <140 mg/dL before meals <180 mg/dL all other times of the day Specimen Anatomical Collection Method Collection Time Receive d Time (Source) Location / / Volume Laterality Blood specimen 07/15/2016 11:58 7 (specimen) PM EDT 11:58 PM EDT Valentino Pérez MD POINT OF CARE TEST ORDERABLE S Performing Organization Address City/[facility]/ZIP [place] [address] POCT Glucose (07/15/2016 9:13 PM EDT) athologist Signature POC Glucose 167 65 - 199 [place] [place] mg/dL [facility] Comment: Supplemental ranges: <140 mg/dL before meals <180 mg/dL all other times of the day Specimen Anatomical Collection Method Collection Time Receive d Time (Source) Location / / Volume Laterality Blood specimen 07/15/2016 9:13 PM 017 9:13 (specimen) EDT PM EDT Valentino Pérez MD POINT OF CARE TEST ORDERABLE S Performing Organization Address City/[facility]/ZIP [place] [address] (ABNORMAL) POCT Glucose (07/15/2016 7:55 PM EDT) athologist Signature POC Glucose 200 (H) 65 - 199 [facility] [place] mg/dL [facility] Comment: Supplemental ranges: <140 mg/dL before meals <180 mg/dL all other times of the day Specimen Anatomical Collection Method Collection Time Receive d Time (Source) Location / / Volume Laterality Blood specimen 07/15/2016 7:55 PM 017 7:55 (specimen) EDT PM EDT Valentino Pérez MD POINT OF CARE TEST ORDERABLE S Performing Organization Address City/State/ZIP [place] [address] POCT Glucose (07/15/2016 4:24 PM EDT) athologist Signature POC Glucose 159 65 - 199 [place] [place] mg/dL [facility] Comment: Supplemental ranges: <140 mg/dL before meals <180 mg/dL all other times of the day Specimen Anatomical Collection Method Collection Time Receive d Time (Source) Location / / Volume Laterality Blood specimen 07/15/2016 4:24 PM 017 4:24 (specimen) EDT PM EDT Valentino Pérez MD POINT OF CARE TEST ORDERABLE S Performing Organization Address City/[facility]/ZIP [place] [address] (ABNORMAL) POCT Glucose (07/15/2016 11:32 AM EDT) athologist Signature POC Glucose 235 (H) 65 - [address] [facility] mg/dL [facility] Comment: Supplemental ranges: <140 mg/dL before meals <180 mg/dL all other times of the day Specimen Anatomical Collection Method Collection Time Receive d Time (Source) Location / / Volume Laterality Blood specimen 07/15/2016 11:32 7 (specimen) AM EDT 11:32 AM EDT Valentino Pérez MD POINT OF CARE TEST ORDERABLE S Performing Organization Address City/State/Z[place] [address] XR Chest PA & [...] Signature POC Glucose 178 65 - 199 [facility] mg/dL [facility] Comment: Supplemental ranges: <140 mg/dL before meals <180 mg/dL all other times of the day Specimen Anatomical Collection Method Collection Time Receive d Time (Source) Location / / Volume Laterality Blood specimen 07/15/2016 6:57 AM 017 6:57 (specimen) EDT AM EDT Valentino Pérez MD POINT OF CARE TEST ORDERABLE S Performing Organization Address City/State/ZIP Code Phon e Number [place] [id number]OS[address] (ABNORMAL) Differential, Automated (07/15/2016 6:45 AM EDT) [facility] Method Time Signature Neutrophils % 80.3 % [facility] LABORATORY Neutr Abs (ANC) 11.09 (H) 1.70 - [facility] [address] [facility] x10(3)/[facility] LABORATORY Lymphocytes % 11.9 % [facility]OR[facility]ORY Lymphocytes Abs 1.6 0.9 - 3.2 [facility] x10(3)/[facility] LABORATORY Monocytes % 6.3 % [facility] LABOR[facility]ORY Monocyte Abs 0.9 0.3 - 0.9 [facility] x10(3)/[facility] LABORATORY Eosinophils % 0.0 % [facility]ORY Eosinophils Abs 0.0 0.0 - 0.4 [facility] x10(3)/[facility] LABORATORY Basophils % 0.1 % [facility] Basophils Abs 0.0 0.0 - 0.1 [facility] x10(3)/[facility] LABORATORY Immature Gran % 1.40 % [facility] Comment: Immature granulocytes(IG's)percentage an d absolute count will include metamyelocytes, myelocytes, and promyelo cytes. Blood smears from CBCs yielding IG's will be scanned manually for concor dance. If this scan disagrees with the automated IG or if promyelocytes are not ed, a manual differential will be performed. Madhuri Gran Abs 0.19 (H) 0.00 - 0.04 x10(3)/[facility] LABORATORY Specimen Anatomical Collection Method Collection Time Receive d Time (Source) Location / / Volume Laterality Blood specimen 07/15/2016 6:45 AM 017 6:51 (specimen) EDT AM EDT Resulting Agency Comment Spec In Lab Valentino Pérez MD HEMATOLOGY ORDERABLES Performing Organization Address City/State/ZIP Code Phon e Number [address] (ABNORMAL) Hemogram (07/15/2016 6:45 AM EDT) Analysis Performed At Patho logist Time Signature WBC 13.8 (H) 4.0 - 9.5 [facility] x10(3)/[facility] LABORATORY RBC 3.44 (L) 4.58 - [facility] [address] [facility] x10(6)/[facility] LABORATORY Hemoglobin 10.1 (L) 13.7 - [facility] 16.[facility] gm/dL [facility] Hematocrit 31.3 (L) 40.5 - [facility] 48.5 % [facility] MCV 91.0 82.9 - [facility] 93.1 [facility] LABORATORY MCH 29.4 27.5 - [place] 32.1 pg [facility] LABORATORY MCHC 32.3 32.0 - [facility] [place] 35.7 gm/dL [facility] Platelets 215 145 - 357 [facility] x10(3)/[facility] LABORATORY RDWSD 43.9 36.0 - [facility] [place] 45.0 [facility] LABORATORY RDWCV 13.2 11.4 - [facility] [place] 13.8 % [facility] LABORATORY MPV 11.2 7.6 - 12.9 [facility] LABORATORY nRBC % Auto 0.0 % [facility] LABORATORY nRBC Abs Auto 0.000 0.000 - [facility] [address] [facility] x10(3)/[facility] LABORATORY Specimen Anatomical Collection Method Collection Time Receive d Time (Source) Location / / Volume Laterality Blood specimen 07/15/2016 6:45 AM 017 6:51 (specimen) EDT AM EDT Resulting Agency Comment Spec In Lab Valentino Pérez MD HEMATOLOGY ORDERABLES Performing Organization Address City/State/ZIP Code Phon e Number [address] (ABNORMAL) BMP w/fasting Glucose (07/15/2016 6:45 AM EDT) athologist Signature Glucose 175 (H) 65 - 99 [facility] Fasting mg/dL [facility] Comment: ?Fasting* Glucose Interpretive C [...] of Diabetes Mellitus, Position Statement from the [place] [employer]. ??Diabete s Care, Volume 33, Supplement 1, Apr 2009 BUN 18 10 - 20 mg/dL [facility] Comment: result rechecked-sb Creatinine 0.65 (L) 0.80 - 1.50 mg/dL [facility] Comment: Please note that the pediatric reference intervals supplied above were not validated at [facility]. Results from pediatri c patients should be interpreted in conjunction to the patient's age, height and muscle mass. Sodium 140 135 - 145 mmol/L [facility] Potassium 3.8 3.5 - 5.0 mmol/L [facility] Comment: Please note: ??Patients with WBC >100,00 0 may have falsely elevated Potassium levels. ??For accurate Potassium quantif ication in these patients send serum separator tube (gold top) for subsequent determinations. ??Contact the Clinical Chemistry Laboratory if there are any qu estions. Chloride 101 98 - 107 mmol/L [facility] CO2 23 22 - 31 mmol/L [facility] Anion Gap 16 (H) 5 - 15 mmol/L [facility] Calcium 8.8 8.5 - 10.5 mg/dL [facility] Estimated GFR >60 >=60 [facility] Comment: This estimated GFR [...] the following links into your internet browser. [email or web address] [email or web address] Specimen Anatomical Collection Method Collection Time Receive d Time (Source) Location / / Volume Laterality Blood specimen 07/15/2016 6:45 AM 017 6:51 (specimen) EDT AM EDT Resulting Agency Comment Spec In Lab Valentino Pérez MD CHEMISTRY ORDERABLES Performing Organization Address City/[facility] [place] [address] (ABNORMAL) POCT Glucose (07/15/2016 6:15 AM EDT) athologist Signature POC Glucose 217 (H) 65 - [address] [facility] mg/dL [facility] Comment: Supplemental ranges: <140 mg/dL before meals <180 mg/dL all other times of the day Specimen Anatomical Collection Method Collection Time Receive d Time (Source) Location / / Volume Laterality Blood specimen 07/15/2016 6:15 AM 017 6:15 (specimen) EDT AM EDT Valentino Pérez MD POINT OF CARE TEST ORDERABLE S Performing Organization Address City/State/[place] [address] (ABNORMAL) POCT Glucose (07/15/2016 4:56 AM EDT) athologist Signature POC Glucose 214 (H) 65 - [address] [facility] mg/dL [facility] Comment: Supplemental ranges: <140 mg/dL before meals <180 mg/dL all other times of the day Specimen Anatomical Collection Method Collection Time Receive d Time (Source) Location / / Volume Laterality Blood specimen 07/15/2016 4:56 AM 017 4:56 (specimen) EDT AM EDT Valention Pérez MD POINT OF CARE TEST ORDERABLE S Performing Organization Address City/State/[place] [address] (ABNORMAL) POCT Glucose (07/15/2016 4:00 AM EDT) P athologist Signature POC Glucose 216 (H) 65 - 199 [place] mg/dL [facility] Comment: Supplemental ranges: <140 mg/dL before meals <180 mg/dL all other times of the day Specimen Anatomical Collection Method Collection Time Receive d Time (Source) Location / / Volume Laterality Blood specimen 07/15/2016 4:00 AM 017 4:00 (specimen) EDT AM EDT Valentino Pérez MD POINT OF CARE TEST ORDERABLE S Performing Organization Address City/State/[place] [address] (ABNORMAL) POCT Glucose (07/15/2016 3:00 AM EDT) P athologist Signature POC Glucose 213 (H) 65 - 199 [place] mg/dL [facility] Comment: Supplemental ranges: <140 mg/dL before meals <180 mg/dL all other times of the day Specimen Anatomical Collection Method Collection Time Receive d Time (Source) Location / / Volume Laterality Blood specimen 07/15/2016 3:00 AM 017 3:00 (specimen) EDT AM EDT Valentino Pérez MD POINT OF CARE TEST ORDERABLE S Performing Organization Address City/State/Z[place] [address] (ABNORMAL) POCT Glucose (07/15/2016 2:01 AM EDT) P athologist Signature POC Glucose 232 (H) 65 - 199 [place] mg/dL [facility] Comment: Supplemental ranges: <140 mg/dL before meals <180 mg/dL all other times of the day Specimen Anatomical Collection Method Collection Time Receive d Time (Source) Location / / Volume Laterality Blood specimen 07/15/2016 2:01 AM 017 2:01 (specimen) EDT AM EDT Valentino Pérez MD POINT OF CARE TEST ORDERABLE S Performing Organization Address City/[facility] [place]/ZIP Code Phon e Number [address] POCT Glucose (07/15/2016 1:03 AM EDT) athologist Signature POC Glucose 192 65 - 199 [place] mg/dL [facility] Comment: Supplemental ranges: <140 mg/dL before meals <180 mg/dL all other times of the day Specimen Anatomical Collection Method Collection Time Receive d Time (Source) Location / / Volume Laterality Blood specimen 07/15/2016 1:03 AM 017 1:03 (specimen) EDT AM EDT Valentino Pérez MD POINT OF CARE TEST ORDERABLE S Performing Organization Address City/[facility] [place]/ZIP [place] [address] POCT Glucose (07/14/2016 11:56 PM EDT) athologist Signature POC Glucose 132 65 - 199 [place] mg/dL [facility] Comment: Supplemental ranges: <140 mg/dL before meals <180 mg/dL all other times of the day Specimen Anatomical Collection Method Collection Time Receive d Time (Source) Location / / Volume Laterality Blood specimen 07/14/2016 11:56 7 (specimen) PM EDT 11:56 PM EDT Valentino Pérez MD POINT OF CARE TEST ORDERABLE S Performing Organization Address City/[facility] [place]/ZIP Code Phon e Number [address] Potassium (07/14/2016 11:41 PM EDT) athologist Signature Potassium 4.0 3.5 - 5.[address] [facility] mmol/L [facility] Comment: Please note: ??Patients with [...] Pérez MD CHEMISTRY ORDERABLES Performing Organization Address City/[facility] [place]/ZIP Code Phon e Number [address] POCT Glucose (07/14/2016 11:01 PM EDT) athologist Signature POC Glucose 120 65 - 199 [place] mg/dL [facility] Comment: Supplemental ranges: <140 mg/dL before meals <180 mg/dL all other times of the day Specimen Anatomical Collection Method Collection Time Receive d Time (Source) Location / / Volume Laterality Blood specimen 07/14/2016 11:01 7 (specimen) PM EDT 11:01 PM EDT Valentino Pérez MD POINT OF CARE TEST ORDERABLE S Performing Organization Address City/[facility] [place]/ZIP Code Phon e Number [address] POCT Glucose (07/14/2016 10:30 PM EDT) athologist Signature POC Glucose 107 65 - 199 [place] mg/dL [facility] Comment: Supplemental ranges: <140 mg/dL before meals <180 mg/dL all other times of the day Specimen Anatomical Collection Method Collection Time Receive d Time (Source) Location / / Volume Laterality Blood specimen 07/14/2016 10:30 7 (specimen) PM EDT 10:30 PM EDT Valentino Pérez MD POINT OF CARE TEST ORDERABLE S Performing Organization Address City/State/ZIP Code Phon e Number [address] POCT Glucose (07/14/2016 10:01 PM EDT) athologist Signature POC Glucose 132 65 - 199 [place] mg/dL [facility] Comment: Supplemental ranges: <140 mg/dL before meals <180 mg/dL all other times of the day Specimen Anatomical Collection Method Collection Time Receive d Time (Source) Location / / Volume Laterality Blood specimen 07/14/2016 10:01 7 (specimen) PM EDT 10:01 PM EDT Valentino Pérez MD POINT OF CARE TEST ORDERABLE S Performing Organization Address City/State/Z[place] [address] POCT Glucose (07/14/2016 8:59 PM EDT) athologist Signature POC Glucose 199 65 - 199 [place] mg/dL [facility] Comment: Supplemental ranges: <140 mg/dL before meals <180 mg/dL all other times of the day Specimen Anatomical Collection Method Collection Time Receive d Time (Source) Location / / Volume Laterality Blood specimen 07/14/2016 8:59 PM 017 8:59 (specimen) EDT PM EDT Valentino Pérez MD POINT OF CARE TEST ORDERABLE S Performing Organization Address City/State/ZIP Code Phon e Number [address] POCT Glucose (07/14/2016 8:10 PM EDT) athologist Signature POC Glucose 192 65 - 199 [place] mg/dL [facility] Comment: Supplemental ranges: <140 mg/dL before meals <180 mg/dL all other times of the day Specimen Anatomical Collection Method Collection Time Receive d Time (Source) Location / / Volume Laterality Blood specimen 07/14/2016 8:10 PM 017 8:10 (specimen) EDT PM EDT Valentino Pérez MD POINT OF CARE TEST ORDERABLE S Performing Organization Address City/State/ZIP Code Phon e Number [address] POCT Glucose (07/14/2016 6:54 PM EDT) athologist Signature POC Glucose 154 65 - 199 [place] mg/dL [facility] Comment: Supplemental ranges: <140 mg/dL before meals <180 mg/dL all other times of the day Specimen Anatomical Collection Method Collection Time Receive d Time (Source) Location / / Volume Laterality Blood specimen 07/14/2016 6:54 PM 017 6:54 (specimen) EDT PM EDT Valentino Pérez MD POINT OF CARE TEST ORDERABLE S Performing Organization Address City/State/Z[place] [address] POCT Glucose (07/14/2016 5:18 PM EDT) athologist Signature POC Glucose 187 65 - 199 [place] mg/dL [facility] Comment: Supplemental ranges: <140 mg/dL before meals <180 mg/dL all other times of the day Specimen Anatomical Collection Method Collection Time Receive d Time (Source) Location / / Volume Laterality Blood specimen 07/14/2016 5:18 PM 017 5:18 (specimen) EDT PM EDT Valentino Pérez MD POINT OF CARE TEST ORDERABLE S Performing Organization Address City/State/Z[place] [address] (ABNORMAL) POCT Glucose (07/14/2016 3:44 PM EDT) athologist Signature POC Glucose 275 (H) 65 - 199 [place] mg/dL [facility] Comment: Supplemental ranges: <140 mg/dL before meals <180 mg/dL all other times of the day Specimen Anatomical Collection Method Collection Time Receive d Time (Source) Location / / Volume Laterality Blood specimen 07/14/2016 3:44 PM 017 3:44 (specimen) EDT PM EDT Valentino Pérez MD POINT OF CARE TEST ORDERABLE S Performing Organization Address City/State/Z[place] [address] (ABNORMAL) POCT Glucose (07/14/2016 2:45 PM EDT) athologist Signature POC Glucose 249 (H) 65 - 199 [place] mg/dL [facility] Comment: Supplemental ranges: <140 mg/dL before meals <180 mg/dL all other times of the day Specimen Anatomical Collection Method Collection Time Receive d Time (Source) Location / / Volume Laterality Blood specimen 07/14/2016 2:45 PM 017 2:45 (specimen) EDT PM EDT Valentino Pérez MD POINT OF CARE TEST ORDERABLE S Performing Organization Address City/State/ZIP [place] [address] (ABNORMAL) POCT Glucose (07/14/2016 1:48 PM EDT) athologist Signature POC Glucose 206 (H) 65 - 199 [place] mg/dL [facility] Comment: Supplemental ranges: <140 mg/dL before meals <180 mg/dL all other times of the day Specimen Anatomical Collection Method Collection Time Receive d Time (Source) Location / / Volume Laterality Blood specimen 07/14/2016 1:48 PM 017 1:48 (specimen) EDT PM EDT Valentino Pérez MD POINT OF CARE TEST ORDERABLE S Performing Organization Address City/State/Z[place] [address] (ABNORMAL) POCT Glucose (07/14/2016 11:59 AM EDT) athologist Signature POC Glucose 211 (H) 65 - 199 [place] mg/dL [facility] Comment: Supplemental ranges: <140 mg/dL before meals <180 mg/dL all other times of the day Specimen Anatomical Collection Method Collection Time Receive d Time (Source) Location / / Volume Laterality Blood specimen 07/14/2016 11:59 7 (specimen) AM EDT 11:59 AM EDT Valentino Pérez MD POINT OF CARE TEST ORDERABLE S Performing Organization Address City/State/Z[place] [address] (ABNORMAL) POCT Glucose (07/14/2016 10:43 AM EDT) athologist Signature POC Glucose 204 (H) 65 - 199 [place] mg/dL [facility] Comment: Supplemental ranges: <140 mg/dL before meals <180 mg/dL all other times of the day Specimen Anatomical Collection Method Collection Time Receive d Time (Source) Location / / Volume Laterality Blood specimen 07/14/2016 10:43 7 (specimen) AM EDT 10:43 AM EDT Valentino Pérez MD POINT OF CARE TEST ORDERABLE S Performing Organization Address City/State/ZIP Code Phon e Number [address] POCT Glucose (07/14/2016 9:51 AM EDT) athologist Signature POC Glucose 185 65 - 199 [place] mg/dL [facility] Comment: Supplemental ranges: <140 mg/dL before meals <180 mg/dL all other times of the day Specimen Anatomical Collection Method Collection Time Receive d Time (Source) Location / / Volume Laterality Blood specimen 07/14/2016 9:51 AM 017 9:51 (specimen) EDT AM EDT Valentino Pérez MD POINT OF CARE TEST ORDERABLE S Performing Organization Address City/[facility] [place]/ZIP Code Phon e Number [address] POCT Glucose (07/14/2016 8:16 AM EDT) athologist Signature POC Glucose 177 65 - 199 [place] mg/dL [facility] Comment: Supplemental ranges: <140 mg/dL before meals <180 mg/dL all other times of the day Specimen Anatomical Collection Method Collection Time Receive d Time (Source) Location / / Volume Laterality Blood specimen 07/14/2016 8:16 AM 017 8:16 (specimen) EDT AM EDT Valentino Pérez MD POINT OF CARE TEST ORDERABLE S Performing Organization Address City/State/ZIP Code Phon e Number [address] POCT Glucose (07/14/2016 7:36 AM EDT) athologist Signature POC Glucose 112 65 - 199 [place] mg/dL [facility] Comment: Supplemental ranges: <140 mg/dL before meals <180 mg/dL all other times of the day Specimen Anatomical Collection Method Collection Time Receive d Time (Source) Location / / Volume Laterality Blood specimen 07/14/2016 7:36 AM 017 7:36 (specimen) EDT AM EDT Valentino Pérez MD POINT OF CARE TEST ORDERABLE S Performing Organization Address City/State/[place] [address] (ABNORMAL) BLOOD GAS 2 ARTERIAL (07/14/2016 7:36 AM EDT) Analysis Performed At Patho logist Time Signature pH Art 7.50 (H) 7.35 - [facility] 7.45 [facility] pCO2 Art 35 35 - 45 [facility] LABORATORY pO2 Art 94 85 - 104 [facility] LABORATORY HCO3 Art 26.9 (H) 20.0 - [facility] [address] [facility] mmol/[facility] LABORATORY BE Art 3.8 (H) -3.0 - 3.0 [facility] mmol/L [facility] Hgb Blood Gas 10.1 (L) 13.7 - [facility] 16.5 gm/dL [facility] O2HB Art 96.0 94.0 - [facility] 97.0 % [facility] COHB Art 0.3 % [facility] Comment: Nonsmokers: 0.5-1.5% COHB Smokers: Variable, but usually less than 10% Toxic: 20-30% COHB Lethal: Greater than 60% COHB METHB Art 0.8 <=1.5 % [facility] LABORATORY Na Whole Blood 134 (L) 135 - 145 mmol/L [facility] LABORATORY K Whole Blood 3.7 3.5 - 5.0 mmol/L [facility] Comment: Please note: Patients with WBC >100,000 may have falsely elevated Potassium levels. Contact the Clinical Chemistry L aboratory if there are any questions. ICa Whole Blood 1.10 (L) 1.15 - 1.33 mmol/L [facility] LABORATORY Comment: Note: ??Total bilirubin higher than 20 m g/dL may lead to falsely low ionized calcium. CL Whole Blood 104 98 - 107 mmol/L [facility]OR[facility]ORY Gluc Whole Bld 175 65 - 199 mg/dL [facility] LABOR[facility] Comment: Diabetes: >=200 mg/dL plus symp toms. Lactate WB 1.7 0.5 - 2.2 mmol/L [facility] LABORATORY FIO2 Art 100 % [facility] LABORATORY PF Ratio Art 94 [facility] LABORATORY Specimen Anatomical Collection Method Collection Time Receive d Time (Source) Location / / Volume Laterality Blood specimen 07/14/2016 7:36 AM 017 7:36 (specimen) EDT AM EDT Valentino Pérez MD CHEMISTRY ORDERABLES Performing Organization Address City/State/[place] [address] XR Chest PA or [...] (ABNORMAL) Differential, Automated (07/14/2016 6:45 AM EDT) [facility] Method Time Signature Neutrophils % 80.1 % [facility] LABORATORY Neutr Abs (ANC) 9.05 (H) 1.70 - [facility] [address] [facility] [address] [facility] x10(3)/[facility] LABORATORY Lymphocytes % 10.9 % [facility] LABORATORY Lymphocytes Abs 1.2 0.9 - 3.2 [facility] x10(3)/[facility] LABORATORY Monocytes % 8.4 % [facility] LABORATORY Monocyte Abs 1.0 (H) 0.3 - 0.9 [facility] x10(3)/[facility] LABORATORY Eosinophils % 0.0 % [facility] LABORATORY Eosinophils Abs 0.0 0.0 - 0.4 [facility] x10(3)/[facility] LABORATORY Basophils % 0.1 % [facility] LABORATORY Basophils Abs 0.0 0.0 - 0.1 [facility] x10(3)/[facility] LABORATORY Immature Gran % 0.50 % [facility] Comment: Immature granulocytes(IG's)percentage an d absolute count will include metamyelocytes, myelocytes, and promyelo cytes. Blood smears from CBCs yielding IG's will be scanned manually for concor dance. If this scan disagrees with the automated IG or if promyelocytes are not ed, a manual differential will be performed. Madhuri Gran Abs 0.06 (H) 0.00 - 0.04 x10(3)/[facility] LABORATORY Specimen Anatomical Collection Method Collection Time Receive d Time (Source) Location / / Volume Laterality Blood specimen 07/14/2016 6:45 AM 017 6:58 (specimen) EDT AM EDT Resulting Agency Comment Spec In Lab Valentino Pérez MD HEMATOLOGY ORDERABLES Performing Organization Address City/State/[place] [address] (ABNORMAL) Hemogram (07/14/2016 6:45 AM EDT) Analysis Performed At Patho logist Time Signature WBC 11.3 (H) 4.0 - 9.5 [facility] x10(3)/[facility] LABORATORY RBC 3.04 (L) 4.58 - [facility] [address] [facility] [facility] x10(6)/[facility] LABORATORY Hemoglobin 9.2 (L) 13.7 - [facility] 16.[facility] gm/dL [facility] Hematocrit 27.2 (L) 40.5 - [facility] [place] 48.5 % [facility] LABORATORY MCV 89.5 82.9 - [facility] 93.1 [facility] LABORATORY MCH 30.3 27.5 - [facility] [place] 32.1 pg [facility] LABORATORY MCHC 33.8 32.0 - [facility] 35.7 gm/dL [facility] LAB[facility]ORY Platelets 148 145 - 357 [facility] x10(3)/[facility] LABORATORY RDWSD 43.4 36.0 - [facility] [place] 45.0 [facility] LABORATORY RDWCV 13.2 11.4 - [facility] [place] 13.8 % [facility] LABORATORY MPV 11.6 7.6 - 12.9 [facility] LABORATORY nRBC % Auto 0.0 % [facility] LABORATORY nRBC Abs Auto 0.000 0.000 - [facility] [address] [facility] [facility] x10(3)/[facility] LABORATORY Specimen Anatomical Collection Method Collection Time Receive d Time (Source) Location / / Volume Laterality Blood specimen 07/14/2016 6:45 AM 017 6:58 (specimen) EDT AM EDT Resulting Agency Comment Spec In Lab Valentino Pérez MD HEMATOLOGY ORDERABLES Performing Organization Address City/State/ZIP Code Phon e Number [facility] [place] [address] (ABNORMAL) Basic Metabolic Panel (non-fasting) (07/14/2016 6:45 AM EDT) athologist Signature Glucose Lvl 192 65 - 199 [facility] mg/dL [facility] Comment: Diabetes: >=200 mg/dL plus symp toms BUN 9 (L) 10 - 20 mg/dL [facility] LABORATORY Creatinine 0.62 (L) 0.80 - 1.50 mg/dL [facility] LABORATORY Comment: Please note that the pediatric reference intervals supplied above were not validated at [facility]. Results from pediatri c patients should be interpreted in conjunction to the patient's age, height and muscle mass. Sodium 137 135 - 145 mmol/L [facility] LABORATORY Potassium 3.7 3.5 - 5.0 mmol/L [facility] Comment: Please note: ??Patients with WBC >100,00 0 may have falsely elevated Potassium levels. ??For accurate Potassium quantif ication in these patients send serum separator tube (gold top) for subsequent determinations. ??Contact the Clinical Chemistry Laboratory if there are any qu estions. Chloride 99 98 - 107 mmol/L [facility] LABORATORY CO2 24 22 - 31 mmol/L [facility] LABORATORY Anion Gap 14 5 - 15 mmol/L [facility] LABORATORY Calcium 8.5 8.5 - 10.5 mg/dL [facility] LABORATORY Estimated GFR >60 >=60 [facility] Comment: This estimated GFR (eGFR) [...] the following links into your internet browser. [email or web address] Specimen Anatomical Collection Method Collection Time Receive d Time (Source) Location / / Volume Laterality Blood specimen 07/14/2016 6:45 AM 017 6:58 (specimen) EDT AM EDT Resulting Agency Comment Spec In Lab Valentino Pérez MD CHEMISTRY ORDERABLES Performing Organization Address City/[facility] [place]/ZIP Code Phon e Number [address] (ABNORMAL) POCT Glucose (07/14/2016 6:23 AM EDT) athologist Signature POC Glucose 204 (H) 65 - 199 [facility] [place] mg/dL [facility] Comment: Supplemental ranges: <140 mg/dL before meals <180 mg/dL all other times of the day Specimen Anatomical Collection Method Collection Time Receive d Time (Source) Location / / Volume Laterality Blood specimen 07/14/2016 6:23 AM 017 6:23 (specimen) EDT AM EDT Valentino Pérez MD POINT OF CARE TEST ORDERABLE S Performing Organization Address [facility] [place]/ZIP [place] [address] (ABNORMAL) POCT Glucose (07/14/2016 5:45 AM EDT) athologist Signature POC Glucose 227 (H) 65 - 199 [place] mg/dL [facility] Comment: Supplemental ranges: <140 mg/dL before meals <180 mg/dL all other times of the day Specimen Anatomical Collection Method Collection Time Receive d Time (Source) Location / / Volume Laterality Blood specimen 07/14/2016 5:45 AM 017 5:45 (specimen) EDT AM EDT Valentino Pérez MD POINT OF CARE TEST ORDERABLE S Performing Organization Address City/[facility] [place]/ZIP [place] [address] POCT Glucose (07/14/2016 2:32 AM EDT) athologist Signature POC Glucose 191 65 - 199 [place] mg/dL [facility] Comment: Supplemental ranges: <140 mg/dL before meals <180 mg/dL all other times of the day Specimen Anatomical Collection Method Collection Time Receive d Time (Source) Location / / Volume Laterality Blood specimen 07/14/2016 2:32 AM 017 2:32 (specimen) EDT AM EDT Valentino Pérez MD POINT OF CARE TEST ORDERABLE S Performing Organization Address City/State/ZIP Code Phon e Number [address] POCT Glucose (07/14/2016 1:22 AM EDT) athologist Signature POC Glucose 167 65 - 199 [facility] [place] mg/dL [facility] Comment: Supplemental ranges: <140 mg/dL before meals <180 mg/dL all other times of the day Specimen Anatomical Collection Method Collection Time Receive d Time (Source) Location / / Volume Laterality Blood specimen 07/14/2016 1:22 AM 017 1:22 (specimen) EDT AM EDT Valentino Pérez MD POINT OF CARE TEST ORDERABLE S Performing Organization Address City/State/Z[place] [address] POCT Glucose (07/14/2016 12:21 AM EDT) athologist Signature POC Glucose 172 65 - 199 [place] mg/dL [facility] Comment: Supplemental ranges: <140 mg/dL before meals <180 mg/dL all other times of the day Specimen Anatomical Collection Method Collection Time Receive d Time (Source) Location / / Volume Laterality Blood specimen 07/14/2016 12:21 7 (specimen) AM EDT 12:21 AM EDT Valentino Pérez MD POINT OF CARE TEST ORDERABLE S Performing Organization Address City/State/[place] [address] (ABNORMAL) BLOOD GAS 2 ARTERIAL (07/14/2016 12:01 AM EDT) Analysis Performed At Patho logist Time Signature pH Art 7.51 (H) 7.35 - [facility] 7.45 [facility] LABORATORY pCO2 Art 33 (L) 35 - 45 [facility] mmHg [facility] pO2 Art 70 (L) 85 - 104 [facility]ATORY HCO3 Art 25.6 20.0 - [facility] [address] [facility] mmol/L [facility] BE Art 2.6 -3.0 - 3.0 [facility] mmol/L [facility] Hgb Blood Gas 11.2 (L) 13.7 - [facility] 16.5 gm/dL [facility] O2HB Art 93.7 (L) 94.0 - [facility] 97.0 % [facility] COHB Art 0.3 % [facility] Comment: Nonsmokers: 0.5-1.5% COHB Smokers: Variable, but usually less than 10% Toxic: 20-30% COHB Lethal: Greater than 60% COHB METHB Art 0.6 <=1.5 % [facility] Na Whole Blood 133 (L) 135 - 145 mmol/L [facility] K Whole Blood 3.6 3.5 - 5.0 mmol/L [facility] Comment: Please note: Patients with WBC >100,000 may have falsely elevated Potassium levels. Contact the Clinical Chemistry L aboratory if there are any questions. ICa Whole Blood 1.08 (L) 1.15 - 1.33 mmol/L [facility] Comment: Note: ??Total bilirubin higher than 20 m g/dL may lead to falsely low ionized calcium. CL Whole Blood 106 98 - 107 mmol/L [facility] Gluc Whole Bld 165 65 - 199 mg/dL [facility] Comment: Diabetes: >=200 mg/dL plus symp toms. Lactate WB 1.1 0.5 - 2.2 mmol/L [facility] FIO2 Art 100 % [facility] PF Ratio Art 70 [facility] Specimen Anatomical Collection Method Collection Time Receive d Time (Source) Location / / Volume Laterality Blood specimen 07/14/2016 12:01 7 (specimen) AM EDT 12:01 AM EDT Valentino Pérez MD CHEMISTRY ORDERABLES Performing Organization Address City/State/ZIP [place] [address] POCT Glucose (07/13/2016 11:14 PM EDT) P athologist Signature POC Glucose 176 65 - 199 [facility] mg/dL [facility] Comment: Supplemental ranges: <140 mg/dL before meals <180 mg/dL all other times of the day Specimen Anatomical Collection Method Collection Time Receive d Time (Source) Location / / Volume Laterality Blood specimen 07/13/2016 11:14 7 (specimen) PM EDT 11:14 PM EDT Valentino Pérez MD POINT OF CARE TEST ORDERABLE S Performing Organization Address City/[facility]/ZIP [place] [address] (ABNORMAL) BLOOD GAS 2 ARTERIAL (07/13/2016 9:58 PM EDT) Analysis Performed At Patho logist Time Signature pH Art 7.48 (H) 7.35 - [facility] 7.45 [facility] pCO2 Art 32 (L) 35 - 45 [facility] mmHg [facility] pO2 Art 83 (L) 85 - 104 [facility] mmHg [facility] HCO3 Art 23.0 20.0 - [facility] [address] [facility] mmol/L [facility] BE Art -0.6 -3.0 - 3.0 [facility] mmol/L [facility] Hgb Blood Gas 10.1 (L) 13.7 - [facility] 16.5 gm/dL [facility] O2HB Art 95.2 94.0 - [facility] 97.0 % [facility] COHB Art 0.1 % [facility] Comment: Nonsmokers: 0.5-1.5% COHB Smokers: Variable, but usually less than 10% Toxic: 20-30% COHB Lethal: Greater than 60% COHB METHB Art 0.7 <=1.5 % [facility] Na Whole Blood 134 (L) 135 - 145 mmol/L [facility] K Whole Blood 3.4 (L) 3.5 - 5.0 mmol/L [facility] Comment: Please note: Patients with WBC >100,000 may have falsely elevated Potassium levels. Contact the Clinical Chemistry L aboratory if there are any questions. ICa Whole Blood 1.07 (L) 1.15 - 1.33 mmol/L [facility] Comment: Note: ??Total bilirubin higher than 20 m g/dL may lead to falsely low ionized calcium. CL Whole Blood 107 98 - 107 mmol/L [facility] Gluc Whole Bld 154 65 - 199 mg/dL [facility] Comment: Diabetes: >=200 mg/dL plus symp toms. Lactate WB 0.8 0.5 - 2.2 mmol/L [facility] FIO2 Art 100 % [facility] PF Ratio Art 83 [facility] Specimen Anatomical Collection Method Collection Time Receive d Time (Source) Location / / Volume Laterality Blood specimen 07/13/2016 9:58 PM 017 9:58 (specimen) EDT PM EDT Valentino Pérez MD CHEMISTRY ORDERABLES Performing Organization Address City/[facility]/[place] [address] POCT Glucose (07/13/2016 9:04 PM EDT) athologist Signature POC Glucose 164 65 - 199 [facility] mg/dL [facility] Comment: Supplemental ranges: <140 mg/dL before meals <180 mg/dL all other times of the day Specimen Anatomical Collection Method Collection Time Receive d Time (Source) Location / / Volume Laterality Blood specimen 07/13/2016 9:04 PM 017 9:04 (specimen) EDT PM EDT Valentino Pérez MD POINT OF CARE TEST ORDERABLE S Performing Organization Address City/State/ZIP Code Phon e Number [place] [address] (ABNORMAL) BLOOD GAS 2 ARTERIAL (07/13/2016 8:43 PM EDT) P athologist Signature pH Art 7.50 (H) 7.35 - [facility] 7.45 [facility] pCO2 Art 33 (L) 35 - 45 [facility] mmHg [facility] pO2 Art 47 85 - 104 [facility] (Critical) mmHg [facility] Comment: Noted by precision mechanical instrument maker. HCO3 Art 24.9 20.0 - 26.0 mmol/L [facility] BE Art 1.6 -3.0 - 3.0 mmol/L [facility] Hgb Blood Gas 10.6 (L) 13.7 - 16.5 gm/dL [facility] O2HB Art 84.8 (L) 94.0 - 97.0 % [facility] COHB Art 0.4 % [facility] Comment: Nonsmokers: 0.5-1.5% COHB Smokers: Variable, but usually less than 10% Toxic: 20-30% COHB Lethal: Greater than 60% COHB METHB Art 0.5 <=1.5 % [facility] Na Whole Blood 134 (L) 135 - 145 mmol/L [facility] K Whole Blood 3.5 3.5 - 5.0 mmol/L [facility] Comment: Please note: Patients with WBC >100,000 may have falsely elevated Potassium levels. Contact the Clinical Chemistry L aboratory if there are any questions. ICa Whole Blood 1.09 (L) 1.15 - 1.33 mmol/L [facility] Comment: Note: ??Total bilirubin higher than 20 m g/dL may lead to falsely low ionized calcium. CL Whole Blood 105 98 - 107 mmol/L [facility] Gluc Whole Bld 167 65 - 199 mg/dL [facility] Comment: Diabetes: >=200 mg/dL plus symp toms. Lactate WB 1.1 0.5 - 2.2 mmol/L [facility] FIO2 Art 50 % [facility] PF Ratio Art 94 [facility] Specimen Anatomical Collection Method Collection Time Receive d Time (Source) Location / / Volume Laterality Blood specimen 07/13/2016 8:43 PM 017 8:43 (specimen) EDT PM EDT Valentino Pérez MD CHEMISTRY ORDERABLES Performing Organization Address City/State/[place] [address] XR Chest PA or [...] of mediastinal drainage tube, endotracheal tube, and [place]-Vika catheter. A right internal jugular sheat h [...] of mediastinal drainage tube, endotracheal tube, and [place]-Vika catheter. A right internal jugular sheat h [...] Signature POC Glucose 157 65 - 199 [facility] mg/dL [facility] Comment: Supplemental ranges: <140 mg/dL before meals <180 mg/dL all other times of the day Specimen Anatomical Collection Method Collection Time Receive d Time (Source) Location / / Volume Laterality Blood specimen 07/13/2016 7:50 PM 017 7:50 (specimen) EDT PM EDT Valentino Pérez MD POINT OF CARE TEST ORDERABLE S Performing Organization Address City/State/[place] [address] POCT Glucose (07/13/2016 6:06 PM EDT) athologist Signature POC Glucose 170 65 - 199 [facility] mg/dL [facility] Comment: Supplemental ranges: <140 mg/dL before meals <180 mg/dL all other times of the day Specimen Anatomical Collection Method Collection Time Receive d Time (Source) Location / / Volume Laterality Blood specimen 07/13/2016 6:06 PM 017 6:06 (specimen) EDT PM EDT Valentino Pérez MD POINT OF CARE TEST ORDERABLE S Performing Organization Address City/State/Z[place] [address] (ABNORMAL) POCT Glucose (07/13/2016 5:09 PM EDT) athologist Signature POC Glucose 202 (H) 65 - 199 [facility] mg/dL [facility] Comment: Supplemental ranges: <140 mg/dL before meals <180 mg/dL all other times of the day Specimen Anatomical Collection Method Collection Time Receive d Time (Source) Location / / Volume Laterality Blood specimen 07/13/2016 5:09 PM 017 5:09 (specimen) EDT PM EDT Valentino Pérez MD POINT OF CARE TEST ORDERABLE S Performing Organization Address City/[facility]/ZIP [place] [address] (ABNORMAL) POCT Glucose (07/13/2016 4:08 PM EDT) athologist Signature POC Glucose 225 (H) 65 - 199 [facility] [place] mg/dL [facility] Comment: Supplemental ranges: <140 mg/dL before meals <180 mg/dL all other times of the day Specimen Anatomical Collection Method Collection Time Receive d Time (Source) Location / / Volume Laterality Blood specimen 07/13/2016 4:08 PM 017 4:08 (specimen) EDT PM EDT Valentino Pérez MD POINT OF CARE TEST ORDERABLE S Performing Organization Address City/State/ZIP [place] [address] POCT Glucose (07/13/2016 2:11 PM EDT) athologist Signature POC Glucose 171 65 - 199 [facility] [place] mg/dL [facility] Comment: Supplemental ranges: <140 mg/dL before meals <180 mg/dL all other times of the day Specimen Anatomical Collection Method Collection Time Receive d Time (Source) Location / / Volume Laterality Blood specimen 07/13/2016 2:11 PM 017 2:11 (specimen) EDT PM EDT Valentino Pérez MD POINT OF CARE TEST ORDERABLE S Performing Organization Address City/State/ZIP Code Phon e Number [address] POCT Glucose (07/13/2016 12:51 PM EDT) athologist Signature POC Glucose 133 65 - 199 [place] mg/dL [facility] Comment: Supplemental ranges: <140 mg/dL before meals <180 mg/dL all other times of the day Specimen Anatomical Collection Method Collection Time Receive d Time (Source) Location / / Volume Laterality Blood specimen 07/13/2016 12:51 7 (specimen) PM EDT 12:51 PM EDT Valentino Pérez MD POINT OF CARE TEST ORDERABLE S Performing Organization Address City/[facility]/ZIP Code Phon e Number [address] POCT Glucose (07/13/2016 11:40 AM EDT) athologist Signature POC Glucose 118 65 - 199 [facility] [place] mg/dL [facility] Comment: Supplemental ranges: <140 mg/dL before meals <180 mg/dL all other times of the day Specimen Anatomical Collection Method Collection Time Receive d Time (Source) Location / / Volume Laterality Blood specimen 07/13/2016 11:40 7 (specimen) AM EDT 11:40 AM EDT Valentino Pérez MD POINT OF CARE TEST ORDERABLE S Performing Organization Address City/State/ZIP Code Phon e Number [address] POCT Glucose (07/13/2016 10:29 AM EDT) athologist Signature POC Glucose 126 65 - 199 [place] mg/dL [facility] Comment: Supplemental ranges: <140 mg/dL before meals <180 mg/dL all other times of the day Specimen Anatomical Collection Method Collection Time Receive d Time (Source) Location / / Volume Laterality Blood specimen 07/13/2016 10:29 7 (specimen) AM EDT 10:29 AM EDT Valentino Pérez MD POINT OF CARE TEST ORDERABLE S Performing Organization Address City/State/ZIP Code Phon e Number [address] POCT Glucose (07/13/2016 9:55 AM EDT) athologist Signature POC Glucose 113 65 - 199 [facility] mg/dL [facility] Comment: Supplemental ranges: <140 mg/dL before meals <180 mg/dL all other times of the day Specimen Anatomical Collection Method Collection Time Receive d Time (Source) Location / / Volume Laterality Blood specimen 07/13/2016 9:55 AM 017 9:55 (specimen) EDT AM EDT Valentino Pérez MD POINT OF CARE TEST ORDERABLE S Performing Organization Address City/[facility]/ZIP [place] [address] POCT Glucose (07/13/2016 9:13 AM EDT) athologist Signature POC Glucose 136 65 - 199 [facility] Comment: Supplemental ranges: <140 mg/dL before meals <180 mg/dL all other times of the day Specimen Anatomical Collection Method Collection Time Receive d Time (Source) Location / / Volume Laterality Blood specimen 07/13/2016 9:13 AM 017 9:13 (specimen) EDT AM EDT Valentino Pérez MD POINT OF CARE TEST ORDERABLE S Performing Organization Address City/[facility]/ZIP [place] [address] EKG 12 Lead (07/13/2016 7:32 AM EDT) Component Value Ref Range Test Analysis Performed Pathologis t Method Time At Signature Ventricular rate 122 BPM MUSE SYSTEM Atrial Rate 122 BPM MUSE SYSTEM P-R Interval 130 ms MUSE SYSTEM QRS Duration 92 ms MUSE SYSTEM Q-T Interval 342 ms MUSE SYSTEM QTC Calculated 487 ms MUSE SYSTEM (Bezet) Calculated P [place] 65 degrees MUSE SYSTEM Calculated R [place] 52 degrees MUSE SYSTEM Calculated T [place] 22 degrees MUSE SYSTEM INTERPRETATION Sinus tachycardia MUSE SY STEM Septal infarct , age undetermined Nonspecific T wave abnormality Abnormal ECG When compared with ECG of 20-MAR-2017 17:32, No significant change was found IN CHAIR Confirmed by MD Gunnar, Eddie ([id number]) on 07/13/2016 9:25:08 AM Specimen Anatomical Collection Method Collection Time Receive d Time (Source) Location / / Volume Laterality 07/13/2016 7:32 AM 7 9:25 EDT AM EDT Valentino Pérez MD ECG ORDERABLES Performing Organization Address City/State/ZIP Code Phon e Number MUSE SYSTEM POCT Glucose (07/13/2016 7:31 AM EDT) athologist Signature POC Glucose 172 65 - 199 [facility] [place] mg/dL [facility] Comment: Supplemental ranges: <140 mg/dL before meals <180 mg/dL all other times of the day Specimen Anatomical Collection Method Collection Time Receive d Time (Source) Location / / Volume Laterality Blood specimen 07/13/2016 7:31 AM 017 7:31 (specimen) EDT AM EDT Valentino Pérez MD POINT OF CARE TEST ORDERABLE S Performing Organization Address City/[facility] Code Phon e Number [address] POCT Glucose (07/13/2016 7:05 AM EDT) athologist Signature POC Glucose 181 65 - 199 [facility] [place] mg/dL [facility] Comment: Supplemental ranges: <140 mg/dL before meals <180 mg/dL all other times of the day Specimen Anatomical Collection Method Collection Time Receive d Time (Source) Location / / Volume Laterality Blood specimen 07/13/2016 7:05 AM 017 7:05 (specimen) EDT AM EDT Valentino Pérez MD POINT OF CARE TEST ORDERABLE S Performing Organization Address City/[facility]/ZIP Code Phon e Number [address] POCT Glucose (07/13/2016 6:10 AM EDT) athologist Signature POC Glucose 178 65 - 199 [facility] [place] mg/dL [facility] Comment: Supplemental ranges: <140 mg/dL before meals <180 mg/dL all other times of the day Specimen Anatomical Collection Method Collection Time Receive d Time (Source) Location / / Volume Laterality Blood specimen 07/13/2016 6:10 AM 017 6:10 (specimen) EDT AM EDT Valentino Pérez MD POINT OF CARE TEST ORDERABLE S Performing Organization Address City/State/ZIP [place] [address] (ABNORMAL) POCT Glucose (07/13/2016 5:13 AM EDT) athologist Signature POC Glucose 208 (H) 65 - 199 [facility]/dL [facility] Comment: Supplemental ranges: <140 mg/dL before meals <180 mg/dL all other times of the day Specimen Anatomical Collection Method Collection Time Receive d Time (Source) Location / / Volume Laterality Blood specimen 07/13/2016 5:13 AM 017 5:13 (specimen) EDT AM EDT Valentino Pérez MD POINT OF CARE TEST ORDERABLE S Performing Organization Address City/[facility]/ZIP Code Phon e Number [address] POCT Glucose (07/13/2016 4:15 AM EDT) athologist Signature POC Glucose 182 65 - 199 [facility] Comment: Supplemental ranges: <140 mg/dL before meals <180 mg/dL all other times of the day Specimen Anatomical Collection Method Collection Time Receive d Time (Source) Location / / Volume Laterality Blood specimen 07/13/2016 4:15 AM 017 4:15 (specimen) EDT AM EDT Valentino Pérez MD POINT OF CARE TEST ORDERABLE S Performing Organization Address City/State/ZIP Code Phon e Number [address] (ABNORMAL) Differential, Automated (07/13/2016 4:10 AM EDT) Patholo gist Method Time Signature Neutrophils % 76.6 % [facility] Neutr Abs (ANC) 7.52 (H) 1.70 - [facility] [address] [facility] x10(3)/[facility] L LABORATORY Lymphocytes % 15.4 % [facility] Lymphocytes Abs 1.5 0.9 - 3.2 [facility] x10(3)/[facility] LABORATORY Monocytes % 7.6 % [facility] Monocyte Abs 0.8 0.3 - 0.9 [facility] x10(3)/[facility] LABORATORY Eosinophils % 0.0 % [facility] Eosinophils Abs 0.0 0.0 - 0.4 [facility] x10(3)/[facility] LABORATORY Basophils % 0.1 % [facility] Basophils Abs 0.0 0.0 - 0.1 [facility] x10(3)/[facility] LABORATORY Immature Gran % 0.30 % [facility] Comment: Immature granulocytes(IG's)percentage an d absolute count will include metamyelocytes, myelocytes, and promyelo cytes. Blood smears from CBCs yielding IG's will be scanned manually for concor dance. If this scan disagrees with the automated IG or if promyelocytes are not ed, a manual differential will be performed. Madhuri Gran Abs 0.03 0.00 - 0.04 x10(3)/[facility] LABORATORY Specimen Anatomical Collection Method Collection Time Receive d Time (Source) Location / / Volume Laterality Blood specimen 07/13/2016 4:10 AM 017 4:33 (specimen) EDT AM EDT Resulting Agency Comment Spec In Lab Valentino Pérez MD HEMATOLOGY ORDERABLES Performing Organization Address City/State/[place] [address] (ABNORMAL) Hemogram (07/13/2016 4:10 AM EDT) Analysis Performed At Patho logist Time Signature WBC 9.8 (H) 4.0 - 9.5 [facility] x10(3)/[facility] LABORATORY RBC 3.44 (L) 4.58 - [facility] [address] [facility] x10(6)/[facility] LABORATORY Hemoglobin 10.2 (L) 13.7 - [facility] [place] 16.5 gm/dL [facility] Hematocrit 31.1 (L) 40.5 - [facility] [place] 48.5 % [facility] MCV 90.4 82.9 - [facility] [place] 93.1 [facility] LABORATORY MCH 29.7 27.5 - [facility] [place] 32.1 pg [facility] MCHC 32.8 32.0 - [facility] [place] 35.7 gm/dL [facility] Platelets 136 (L) 145 - 357 [facility] x10(3)/[facility] LABORATORY RDWSD 43.7 36.0 - [place] 45.0 [facility] LABORATORY RDWCV 13.2 11.4 [facility] 13.8 % [facility] MPV 11.0 7.6 - 12.9 [facility] LABORATORY nRBC % Auto 0.0 % [facility] LABORATORY nRBC Abs Auto 0.000 0.000 - [facility] [place] [address] [facility] x10(3)/[facility] LABORATORY Specimen Anatomical Collection Method Collection Time Receive d Time (Source) Location / / Volume Laterality Blood specimen 07/13/2016 4:10 AM 017 4:33 (specimen) EDT AM EDT Resulting Agency Comment Spec In Lab Valentino Pérez MD HEMATOLOGY ORDERABLES Performing Organization Address City/State/ZIP [place] [address] Electrolytes panel (07/13/2016 4:10 AM EDT) athologist Signature Sodium 140 135 - 145 [facility] mmol/L [facility] Potassium 4.2 3.5 - 5.0 [facility] mmol/L [facility] Comment: Please note: ??Patients with WBC >100,00 0 may have falsely elevated Potassium levels. ??For accurate Potassium quantif ication in these patients send serum separator tube (gold top) for subsequent determinations. ??Contact the Clinical Chemistry Laboratory if there are any qu estions. Chloride 105 98 - 107 mmol/L [facility] CO2 22 22 - 31 mmol/L [facility] Anion Gap 13 5 - 15 mmol/L [facility] LABORATORY Specimen Anatomical Collection Method Collection Time Receive d Time (Source) Location / / Volume Laterality Blood specimen 07/13/2016 4:10 AM 017 4:34 (specimen) EDT AM EDT Resulting Agency Comment Spec In Lab Valentino Pérez MD CHEMISTRY ORDERABLES Performing Organization Address City/[facility]/Z[place] [address] (ABNORMAL) Cardiac Enzymes (07/13/2016 4:10 AM EDT) athologist Signature Troponin-T 1.28 (H) <=0.03 [facility] ng/mL [facility] Comment: 0.03 ng/mL: Represents the [...] consensus document of the Joint Society of Cardiology/[place] [employer] f [employer] Committee for the redefinition of myocardial infarction. ? ?Journal of the [place] [employer] 2000; 36: 959-969] CK, Total 740 (H) 0 - 200 unit/L [facility] Specimen Anatomical Collection Method Collection Time Receive d Time (Source) Location / / Volume Laterality Blood specimen 07/13/2016 4:10 AM 017 4:33 (specimen) EDT AM EDT Resulting Agency Comment Spec In Lab Valentino Pérez MD CHEMISTRY ORDERABLES Performing Organization Address City/[facility]/ZIP Code Phon e Number [address] (ABNORMAL) Glucose, fasting (07/13/2016 4:10 AM EDT) athologist Signature Glucose 200 (H) 65 - 99 [facility] [place] Fasting mg/dL [facility] Comment: ?Fasting* Glucose Interpretive C [...] of Diabetes Mellitus, Position Statement from the [place] [employer]. ??Diabete s Care, Volume 33, Supplement 1, Apr 2009 Specimen Anatomical Collection Method Collection Time Receive d Time (Source) Location / / Volume Laterality Blood specimen 07/13/2016 4:10 AM 017 4:33 (specimen) EDT AM EDT Resulting Agency Comment Spec In Lab Valentino Pérez MD CHEMISTRY ORDERABLES Performing Organization Address City/State/[place] [address] (ABNORMAL) Creatinine (07/13/2016 4:10 AM EDT) athologist Signature Creatinine 0.61 (L) 0.80 - [facility] [place] 1.50 mg/dL [facility] Comment: Please note that the pediatric reference intervals supplied above were not validated at [facility] Results from pediatri c patients should be interpreted in conjunction to the patient's age, height and muscle mass. Estimated GFR >60 >=60 ANA [facility] Comment: This estimated GFR (eGFR) value [...] the following links into your internet browser. [email or web address] Specimen Anatomical Collection Method Collection Time Receive d Time (Source) Location / / Volume Laterality Blood specimen 07/13/2016 4:10 AM 017 4:33 (specimen) EDT AM EDT Resulting Agency Comment Spec In Lab Valentino Pérez MD CHEMISTRY ORDERABLES Performing Organization Address City/[facility]/ZIP [place] [address] BUN (07/13/2016 4:10 AM EDT) athologist Signature BUN 12 10 - 20 ANA AFIA mg/dL [facility] Specimen Anatomical Collection Method Collection Time Receive d Time (Source) Location / / Volume Laterality Blood specimen 07/13/2016 4:10 AM 017 4:33 (specimen) EDT AM EDT Resulting Agency Comment Spec In Lab Valentino Pérez MD CHEMISTRY ORDERABLES Performing Organization Address City/[facility] [place] [address] POCT Glucose (07/13/2016 2:50 AM EDT) athologist Signature POC Glucose 158 65 - 199 ANA AFIA mg/dL [facility] Comment: Supplemental ranges: <140 mg/dL before meals <180 mg/dL all other times of the day Specimen Anatomical Collection Method Collection Time Receive d Time (Source) Location / / Volume Laterality Blood specimen 07/13/2016 2:50 AM 017 2:50 (specimen) EDT AM EDT Valentino Pérez MD POINT OF CARE TEST ORDERABLE S Performing Organization Address City/[facility]/ZIP Code Phon e Number [address] POCT Glucose (07/13/2016 2:02 AM EDT) athologist Signature POC Glucose 138 65 - 199 ANA AFIA mg/dL [facility] Comment: Supplemental ranges: <140 mg/dL before meals <180 mg/dL all other times of the day Specimen Anatomical Collection Method Collection Time Receive d Time (Source) Location / / Volume Laterality Blood specimen 07/13/2016 2:02 AM 017 2:02 (specimen) EDT AM EDT Valentino Pérez MD POINT OF CARE TEST ORDERABLE S Performing Organization Address City/[facility]/ZIP Code Phon e Number [address] POCT Glucose (07/13/2016 1:12 AM EDT) athologist Signature POC Glucose 168 65 - 199 [facility] Comment: Supplemental ranges: <140 mg/dL before meals <180 mg/dL all other times of the day Specimen Anatomical Collection Method Collection Time Receive d Time (Source) Location / / Volume Laterality Blood specimen 07/13/2016 1:12 AM 017 1:12 (specimen) EDT AM EDT Valentino Préez MD POINT OF CARE TEST ORDERABLE S Performing Organization Address City/[facility]/ZIP Code Phon e Number [address] POCT Glucose (07/12/2016 11:56 PM EDT) athologist Signature POC Glucose 141 65 - 199 [facility] Comment: Supplemental ranges: <140 mg/dL before meals <180 mg/dL all other times of the day Specimen Anatomical Collection Method Collection Time Receive d Time (Source) Location / / Volume Laterality Blood specimen 07/12/2016 11:56 7 (specimen) PM EDT 11:56 PM EDT Valentino Pérez MD POINT OF CARE TEST ORDERABLE S Performing Organization Address City/[facility]/ZIP Code Phon e Number [address] (ABNORMAL) BLOOD GAS 2 ARTERIAL (07/12/2016 10:47 PM EDT) Analysis Performed At Patho logist Time Signature pH Art 7.42 7.35 - [facility] 7.45 [facility] pCO2 Art 33 (L) 35 - 45 [facility] LABORATORY pO2 Art 84 (L) 85 - 104 [facility] LABORATORY HCO3 Art 20.8 20.0 - [facility] [address] [facility] mmol/[facility] BE Art -3.6 (L) -3.0 - 3.0 [facility] mmol/L [facility] Hgb Blood Gas 11.2 (L) 13.7 - [facility] 16.5 gm/dL [facility] O2HB Art 95.1 94.0 - [facility] 97.0 % [facility] COHB Art 0.1 % [facility] Comment: Nonsmokers: 0.5-1.5% COHB Smokers: Variable, but usually less than 10% Toxic: 20-30% COHB Lethal: Greater than 60% COHB METHB Art 0.7 <=1.5 % [facility] Na Whole Blood 139 135 - 145 mmol/L [facility] K Whole Blood 3.7 3.5 - 5.0 mmol/L [facility] Comment: Please note: Patients with WBC >100,000 may have falsely elevated Potassium levels. Contact the Clinical Chemistry L aboratory if there are any questions. ICa Whole Blood 1.10 (L) 1.15 - 1.33 mmol/L [facility] Comment: Note: ??Total bilirubin higher than 20 m g/dL may lead to falsely low ionized calcium. CL Whole Blood 112 (H) 98 - 107 mmol/L [facility] Gluc Whole Bld 147 65 - 199 mg/dL [facility] Comment: Diabetes: >=200 mg/dL plus symp toms. Lactate WB 0.9 0.5 - 2.2 mmol/L [facility] FIO2 Art 40 % [facility] PF Ratio Art 210 [facility] Temp Art 37.0 Celsius [facility] Specimen Anatomical Collection Method Collection Time Receive d Time (Source) Location / / Volume Laterality Blood specimen 07/12/2016 10:47 7 (specimen) PM EDT 10:47 PM EDT Valentino Pérez MD CHEMISTRY ORDERABLES Performing Organization Address City/State/ZIP [place] [address] POCT Glucose (07/12/2016 10:47 PM EDT) athologist Signature POC Glucose 162 65 - 199 ANA AFIA mg/dL [facility] Comment: Supplemental ranges: <140 mg/dL before meals <180 mg/dL all other times of the day Specimen Anatomical Collection Method Collection Time Receive d Time (Source) Location / / Volume Laterality Blood specimen 07/12/2016 10:47 7 (specimen) PM EDT 10:47 PM EDT Valentino Pérez MD POINT OF CARE TEST ORDERABLE S Performing Organization Address City/State/ZIP Code Phon e Number [place] [phone] POCT Glucose (07/12/2016 10:05 PM EDT) athologist Signature POC Glucose 141 65 - 199 ANA AFIA mg/dL [facility] Comment: Supplemental ranges: <140 mg/dL before meals <180 mg/dL all other times of the day Specimen Anatomical Collection Method Collection Time Receive d Time (Source) Location / / Volume Laterality Blood specimen 07/12/2016 10:05 7 (specimen) PM EDT 10:05 PM EDT Valentino Pérez MD POINT OF CARE TEST ORDERABLE S Performing Organization Address City/State/ZIP Code Phon e Number [place] [phone] POCT Glucose (07/12/2016 8:57 PM EDT) athologist Signature POC Glucose 171 65 - 199 ANA AFIA mg/dL [facility] Comment: Supplemental ranges: <140 mg/dL before meals <180 mg/dL all other times of the day Specimen Anatomical Collection Method Collection Time Receive d Time (Source) Location / / Volume Laterality Blood specimen 07/12/2016 8:57 PM 017 8:57 (specimen) EDT PM EDT Valentino Pérez MD POINT OF CARE TEST ORDERABLE S Performing Organization Address City/[facility]/Z[place] [address] (ABNORMAL) Hemoglobin (07/12/2016 8:55 PM EDT) athologist Signature Hemoglobin 11.1 (L) 13.7 - [facility] [place] 16.5 gm/dL [facility] Specimen Anatomical Collection Method Collection Time Receive d Time (Source) Location / / Volume Laterality Blood specimen 07/12/2016 8:55 PM 017 9:04 (specimen) EDT PM EDT Resulting Agency Comment Spec In Lab Valentino Pérez MD HEMATOLOGY ORDERABLES Performing Organization Address City/[facility]/ZIP [place] [address] Potassium (07/12/2016 8:55 PM EDT) athologist Signature Potassium 4.1 3.5 - 5.0 [facility] mmol/L [facility] Comment: Please note: ??Patients with [...] Pérez MD CHEMISTRY ORDERABLES Performing Organization Address City/[facility]/ZIP [place] [address] POCT Glucose (07/12/2016 7:45 PM EDT) athologist Signature POC Glucose 172 65 - 199 ANA OREILLY mg/dL [facility] Comment: Supplemental ranges: <140 mg/dL before meals <180 mg/dL all other times of the day Specimen Anatomical Collection Method Collection Time Receive d Time (Source) Location / / Volume Laterality Blood specimen 07/12/2016 7:45 PM 017 7:45 (specimen) EDT PM EDT Valentino Pérez MD POINT OF CARE TEST ORDERABLE S Performing Organization Address City/State/ZIP [place] [address] (ABNORMAL) BLOOD GAS 2 ARTERIAL (07/12/2016 7:07 PM EDT) Analysis Performed At Patho logist Time Signature pH Art 7.38 7.35 - [facility] 7.45 [facility] pCO2 Art 38 35 - 45 [facility] mmHg [facility] pO2 Art 106 (H) 85 - 104 [facility] LABORATORY HCO3 Art 22.0 20.0 - [facility] [address] [facility] mmol/L [facility] LABORATORY BE Art -3.1 (L) -3.0 - 3.0 [facility] mmol/L [facility] Hgb Blood Gas 12.4 (L) 13.7 - [facility] 16.5 gm/dL [facility] O2HB Art 96.7 94.0 - [facility] 97.0 % [facility] COHB Art 0.2 % [facility] Comment: Nonsmokers: 0.5-1.5% COHB Smokers: Variable, but usually less than 10% Toxic: 20-30% COHB Lethal: Greater than 60% COHB METHB Art 0.6 <=1.5 % [facility] Na Whole Blood 136 135 - 145 mmol/L [facility] K Whole Blood 4.0 3.5 - 5.0 mmol/L [facility] Comment: Please note: Patients with WBC >100,000 may have falsely elevated Potassium levels. Contact the Clinical Chemistry L aboratory if there are any questions. ICa Whole Blood 1.15 (L) 1.15 - 1.33 mmol/L [facility] Comment: Note: ??Total bilirubin higher than 20 m g/dL may lead to falsely low ionized calcium. CL Whole Blood 109 (H) 98 - 107 mmol/L [facility] Gluc Whole Bld 185 65 - 199 mg/dL [facility] Comment: Diabetes: >=200 mg/dL plus symp toms. Lactate WB 1.0 0.5 - 2.2 mmol/L [facility] FIO2 Art 60 % [facility] PF Ratio Art 177 [facility] Specimen Anatomical Collection Method Collection Time Receive d Time (Source) Location / / Volume Laterality Blood specimen 07/12/2016 7:07 PM 017 7:07 (specimen) EDT PM EDT Valentino Pérez MD CHEMISTRY ORDERABLES Performing Organization Address City/State/[place] [address] XR Chest PA or [...] internal jugular central venous ca theter with [place]-Vika catheter tip projected in the right main [...] internal jugular central venous ca theter with [place]-Vika catheter tip projected in the right main [...] 454 ms MUSE SYSTEM (Bezet) Calculated P [place] 74 degrees MUSE SYSTEM Calculated R [place] 68 degrees MUSE SYSTEM Calculated T [place] 32 degrees MUSE SYSTEM INTERPRETATION Normal sinus [...] Time Signature pH Art 7.40 7.35 - [facility] 7.45 [facility] pCO2 Art 40 35 - 45 [facility] mmHg [facility] pO2 Art 106 (H) 85 - 104 [facility] LABORATORY HCO3 Art 24.0 20.0 - [facility] [address] [facility] mmol/L [facility] BE Art -0.7 -3.0 - 3.0 [facility] mmol/L [facility] Hgb Blood Gas 12.4 (L) 13.7 - [facility] 16.5 gm/dL [facility] O2HB Art 96.5 94.0 - [facility] 97.0 % [facility] COHB Art 0.2 % [facility] Comment: Nonsmokers: 0.5-1.5% COHB Smokers: Variable, but usually less than 10% Toxic: 20-30% COHB Lethal: Greater than 60% COHB METHB Art 0.7 <=1.5 % [facility] Na Whole Blood 137 135 - 145 mmol/L [facility] K Whole Blood 4.1 3.5 - 5.0 mmol/L [facility] Comment: Please note: Patients with WBC >100,000 may have falsely elevated Potassium levels. Contact the Clinical Chemistry L aboratory if there are any questions. ICa Whole Blood 1.18 1.15 - 1.33 mmol/L [facility] Comment: Note: ??Total bilirubin higher than 20 m g/dL may lead to falsely low ionized calcium. CL Whole Blood 110 (H) 98 - 107 mmol/L [facility] Gluc Whole Bld 197 65 - 199 mg/dL [facility] Comment: Diabetes: >=200 mg/dL plus symp toms. Lactate WB 1.0 0.5 - 2.2 mmol/L [facility] FIO2 Art 100 % [facility] PF Ratio Art 106 [facility] Specimen Anatomical Collection Method Collection Time Receive d Time (Source) Location / / Volume Laterality Blood specimen 07/12/2016 5:31 PM 017 5:31 (specimen) EDT PM EDT Valentino Pérez MD CHEMISTRY ORDERABLES Performing Organization Address City/State/ZIP Code Phon e Number [place] [phone]OS[address]ORY Drive (ABNORMAL) BLOOD GAS 2 ARTERIAL (07/12/2016 3:58 PM EDT) Analysis Performed At Patho logist Time Signature pH Art 7.32 (L) 7.35 - [facility] 7.45 [facility] pCO2 Art 48 (H) 35 - 45 [facility] mmHg [facility] pO2 Art 72 (L) 85 - 104 [facility] mmHg [facility]ORY HCO3 Art 24.2 20.0 - [facility] [address] [facility] mmol/L [facility] BE Art -1.9 -3.0 - 3.0 [facility] mmol/L [facility] Hgb Blood Gas 10.1 (L) 13.7 - [facility] 16.5 gm/dL [facility] O2HB Art 92.3 (L) 94.0 - [facility] 97.0 % [facility]ORY COHB Art 0.6 % [facility] Comment: Nonsmokers: 0.5-1.5% COHB Smokers: Variable, but usually less than 10% Toxic: 20-30% COHB Lethal: Greater than 60% COHB METHB Art 0.3 <=1.5 % [facility] Na Whole Blood 134 (L) 135 - 145 mmol/L [facility] K Whole Blood 3.8 3.5 - 5.0 mmol/L [facility] Comment: Please note: Patients with WBC >100,000 may have falsely elevated Potassium levels. Contact the Clinical Chemistry L aboratory if there are any questions. ICa Whole Blood 1.26 1.15 - 1.33 mmol/L [facility] Comment: Note: ??Total bilirubin higher than 20 m g/dL may lead to falsely low ionized calcium. CL Whole Blood 106 98 - 107 mmol/L [facility] Gluc Whole Bld 266 (H) 65 - 199 mg/dL [facility] Comment: Diabetes: >=200 mg/dL plus symp toms. Lactate WB 2.3 (H) 0.5 - 2.2 mmol/L [facility] Specimen Anatomical Collection Method Collection Time Receive d Time (Source) Location / / Volume Laterality Blood specimen Arterial Draw / 07/12/2016 3:58 PM 06/24 4:47 (specimen) Unknown EDT PM EDT Resulting Agency Comment Spec In Lab Valentino Pérez MD CHEMISTRY ORDERABLES Performing Organization Address City/[facility]/[place] [address] Scan, Peripheral Blood (07/12/2016 3:50 PM EDT) [facility] gist Method Time Signature Plat Estimate Decreased [facility] RBC Morphology Normal [facility] Specimen Anatomical Collection Method Collection Time Receive d Time (Source) Location / / Volume Laterality Blood specimen 07/12/2016 3:50 PM 017 4:03 (specimen) EDT PM EDT Resulting Agency Comment Spec In Lab Rolf Zayas MD HEMATOLOGY ORDERABLES Performing Organization Address City/State/[place] [address] (ABNORMAL) Differential, Automated (07/12/2016 3:50 PM EDT) [facility] Method Time Signature Neutrophils % 73.2 % [facility]OR[facility]ORY Neutr Abs (ANC) 8.05 (H) 1.70 - [facility] [address] [facility] x10(3)/[facility] L LABORATORY Lymphocytes % 22.6 % [facility]ORY Lymphocytes Abs 2.5 0.9 - 3.2 [facility] x10(3)/[facility] LABORATORY Monocytes % 2.3 % [facility]OR[facility]ORY Monocyte Abs 0.2 (L) 0.3 - 0.9 [facility] x10(3)/[facility] LABORATORY Eosinophils % 0.7 % [facility]ORY Eosinophils Abs 0.1 0.0 - 0.4 [facility] x10(3)/[facility] LABORATORY Basophils % 0.2 % [facility] Basophils Abs 0.0 0.0 - 0.1 [facility] x10(3)/[facility] LABORATORY Immature Gran % 1.00 % [facility] Comment: Immature granulocytes(IG's)percentage an d absolute count will include metamyelocytes, myelocytes, and promyelo cytes. Blood smears from CBCs yielding IG's will be scanned manually for concor dance. If this scan disagrees with the automated IG or if promyelocytes are not ed, a manual differential will be performed. Madhuri Gran Abs 0.11 (H) 0.00 - 0.04 x10(3)/[facility] LABORATORY Specimen Anatomical Collection Method Collection Time Receive d Time (Source) Location / / Volume Laterality Blood specimen 07/12/2016 3:50 PM 017 4:03 (specimen) EDT PM EDT Resulting Agency Comment Spec In Lab Rolf Zayas MD HEMATOLOGY ORDERABLES Performing Organization Address City/State/ZIP Code Phon e Number [place] [phone]OS[address] (ABNORMAL) Hemogram (07/12/2016 3:50 PM EDT) P athologist Signature WBC 11.0 (H) 4.0 - 9.5 [facility] x10(3)/[facility] LABORATORY Comment: These results were called to Pascale myles by Pilar Calhoun on 07-12-2016 at 1611; and were read back. RBC 2.94 (L) 4.58 - 5.54 x10(6)/[facility] LABORATORY Hemoglobin 9.1 (L) 13.7 - 16.5 gm/dL [facility] LABORATORY Hematocrit 27.5 (L) 40.5 - 48.5 % [facility] Comment: This result has been called to PASCALE MEI by Pilar Robles on 07 12 2016 at 1811, and has been read back. MCV 93.5 (H) 82.9 - 93.1 [facility] LABORATORY MCH 31.0 27.5 - 32.1 pg [facility] LABORATORY MCHC 33.1 32.0 - 35.7 gm/dL [facility] LABORATORY Platelets 124 (L) 145 - 357 x10(3)/[facility] LABORATORY RDWSD 44.7 36.0 - 45.0 [facility] LABORATORY RDWCV 13.0 11.4 - 13.8 % [facility] LABORATORY MPV 11.7 7.6 - 12.9 [facility] LABORATORY nRBC % Auto 0.0 % [facility] LABORATORY nRBC Abs Auto 0.000 0.000 - 0.000 x10(3)/[facility] LABORATORY Specimen Anatomical Collection Method Collection Time Receive d Time (Source) Location / / Volume Laterality Blood specimen 07/12/2016 3:50 PM 017 4:03 (specimen) EDT PM EDT Resulting Agency Comment Spec In Lab Rolf Zayas MD HEMATOLOGY ORDERABLES Performing Organization Address City/State/[place] [address] Thrombin time (07/12/2016 3:50 PM EDT) athologist Signature Thrombin Time 18 15 - 20 [facility] LABORATORY Comment: A prolongation in the [...] Zayas MD HEMATOLOGY ORDERABLES Performing Organization Address City/[facility]/ZIP Code Phon e Number [address] APTT (07/12/2016 3:50 PM EDT) athologist [facility] PTT 29 25 - 35 sec [facility] Comment: The recommended therapeutic range for fu ll dose, unfractionated heparin at [facility] is 80 ? 114 seconds. The use [...] Zayas MD HEMATOLOGY ORDERABLES Performing Organization Address City/[facility]/ZIP Code Phon e Number [address] (ABNORMAL) Prothrombin Time (07/12/2016 3:50 PM EDT) athologist [facility] PT 17.5 (H) 12.0 - 15.0 [facility] LABORATORY Comment: An INR <2.0 indicates [...] circumstances. INR 1.4 (H) 0.9 - 1.1 [facility] LABORATORY Specimen Anatomical Collection Method Collection Time Receive d Time (Source) Location / / Volume Laterality Blood specimen 07/12/2016 3:50 PM 017 4:03 (specimen) EDT PM EDT Resulting Agency Comment Spec In Lab Rlof Zayas MD HEMATOLOGY ORDERABLES Performing Organization Address City/State/ZIP Code Phon e Number [address] Fibrinogen (07/12/2016 3:50 PM EDT) P athologist Signature Fibrinogen 365 180 - 510 [facility] mg/dL [facility]OR[facility]ORY Comment: A fibrinogen level >100 mg/dL is adequat e for hemostasis in most patients without underlying bleeding disorders. Specimen Anatomical Collection Method Collection Time Receive d Time (Source) Location / / Volume Laterality Blood specimen 07/12/2016 3:50 PM 017 4:03 (specimen) EDT PM EDT Resulting Agency Comment Spec In Lab Rolf Zayas MD HEMATOLOGY ORDERABLES Performing Organization Address City/[facility]/ZIP [place] [address] (ABNORMAL) BLOOD GAS 2 ARTERIAL (07/12/2016 3:01 PM EDT) Analysis Performed At Patho logist Time Signature pH Art 7.37 7.35 - [facility] 7.45 [facility] LABORATORY pCO2 Art 41 35 - 45 [facility] mmHg [facility] LABORATORY pO2 Art 199 (H) 85 - 104 [facility] LABORATORY HCO3 Art 23.1 20.0 - [facility] [address] [facility] mmol/L [facility] LABORATORY BE Art -2.1 -3.0 - 3.0 [facility] mmol/L [facility] LABORATORY Hgb Blood Gas 9.7 (L) 13.7 - [facility] 16.5 gm/dL [facility] O2HB Art 98.5 (H) 94.0 - [facility] 97.0 % [facility] LABORATORY COHB Art 0.5 % [facility] LAB[facility]ATORY Comment: Nonsmokers: 0.5-1.5% COHB Smokers: Variable, but usually less than 10% Toxic: 20-30% COHB Lethal: Greater than 60% COHB METHB Art 0.3 <=1.5 % [facility] LABORATORY Na Whole Blood 130 (L) 135 - 145 mmol/L [facility] LABORATORY K Whole Blood 4.7 3.5 - 5.0 mmol/L [facility] LAB[facility]ORY Comment: Please note: Patients with WBC >100,000 may have falsely elevated Potassium levels. Contact the Clinical Chemistry L aboratory if there are any questions. ICa Whole Blood 1.01 (L) 1.15 - 1.33 mmol/L [facility] Comment: Note: ??Total bilirubin higher than 20 m g/dL may lead to falsely low ionized calcium. CL Whole Blood 105 98 - 107 mmol/L [facility] Gluc Whole Bld 337 (H) 65 - 199 mg/dL [facility] Comment: Diabetes: >=200 mg/dL plus symp toms. Lactate WB 1.5 0.5 - 2.2 mmol/L [facility] LABOR[facility]ORY Specimen Anatomical Collection Method Collection Time Receive d Time (Source) Location / / Volume Laterality Blood specimen 07/12/2016 3:01 PM 017 3:01 (specimen) EDT PM EDT Rolf Zayas MD CHEMISTRY ORDERABLES Performing Organization Address City/State/[place] [address] (ABNORMAL) BLOOD GAS 2 ARTERIAL (07/12/2016 2:43 PM EDT) [facility] Method Time Signature pH Art 7.29 7.35 - [facility] (Critical) 7.45 [facility] LABORATORY pCO2 Art 48 (H) 35 - 45 [facility] LABORATORY pO2 Art 194 (H) 85 - 104 [facility] LABORATORY HCO3 Art 22.6 20.0 - [facility] [address] [facility] mmol/L [facility] LABORATORY BE Art -3.9 (L) -3.0 - 3.0 [facility] mmol/L [facility] LABORATORY Hgb Blood Gas 9.9 (L) 13.7 - [facility] 16.5 gm/dL [facility] LABORATORY O2HB Art 98.6 (H) 94.0 - [facility] 97.0 % [facility] LABORATORY COHB Art 0.2 % [facility] LABORATORY Comment: Nonsmokers: 0.5-1.5% COHB Smokers: Variable, but usually less than 10% Toxic: 20-30% COHB Lethal: Greater than 60% COHB METHB Art 0.3 <=1.5 % [facility] LABORATORY Na Whole Blood 130 (L) 135 - 145 mmol/L [facility] LABORATORY K Whole Blood 4.5 3.5 - 5.0 mmol/L [facility] LABORATORY Comment: Please note: Patients with WBC >100,000 may have falsely elevated Potassium levels. Contact the Clinical Chemistry L aboratory if there are any questions. ICa Whole Blood 1.04 (L) 1.15 - 1.33 mmol/L [facility] LABORATORY Comment: Note: ??Total bilirubin higher than 20 m g/dL may lead to falsely low ionized calcium. CL Whole Blood 102 98 - 107 mmol/L [facility] LABORATORY Gluc Whole Bld 326 (H) 65 - 199 mg/dL [facility] LABORATORY Comment: Diabetes: >=200 mg/dL plus symp toms. Lactate WB 1.2 0.5 - 2.2 mmol/L [facility] LABORATORY Specimen Anatomical Collection Method Collection Time Receive d Time (Source) Location / / Volume Laterality Blood specimen 07/12/2016 2:43 PM 017 2:43 (specimen) EDT PM EDT Rolf Zayas MD CHEMISTRY ORDERABLES Performing Organization Address City/State/[place] [address] (ABNORMAL) BLOOD GAS 2 ARTERIAL (07/12/2016 2:34 PM EDT) Analysis Performed At Patho logist Time Signature pH Art 7.31 (L) 7.35 - [facility] 7.45 [facility] LABORATORY pCO2 Art 44 35 - 45 [facility] LABORATORY pO2 Art 231 (H) 85 - 104 [facility] LABORATORY HCO3 Art 21.9 20.0 - [facility] [address] [facility] mmol/L [facility] LABORATORY BE Art -4.4 (L) -3.0 - 3.0 [facility] mmol/L [facility] LABORATORY Hgb Blood Gas 9.6 (L) 13.7 - [facility] 16.5 gm/dL [facility] O2HB Art 98.9 (H) 94.0 - [facility] 97.0 % [facility] COHB Art 0.2 % [facility] LABORATORY Comment: Nonsmokers: 0.5-1.5% COHB Smokers: Variable, but usually less than 10% Toxic: 20-30% COHB Lethal: Greater than 60% COHB METHB Art 0.3 <=1.5 % [facility] LABORATORY Na Whole Blood 129 (L) 135 - 145 mmol/L [facility] LABORATORY K Whole Blood 4.7 3.5 - 5.0 mmol/L [facility] LABORATORY Comment: Please note: Patients with WBC >100,000 may have falsely elevated Potassium levels. Contact the Clinical Chemistry L aboratory if there are any questions. ICa Whole Blood 0.98 (L) 1.15 - 1.33 mmol/L [facility] LABORATORY Comment: Note: ??Total bilirubin higher than 20 m g/dL may lead to falsely low ionized calcium. CL Whole Blood 101 98 - 107 mmol/L [facility] LABORATORY Gluc Whole Bld 355 (H) 65 - 199 mg/dL [facility] LABORATORY Comment: Diabetes: >=200 mg/dL plus symp toms. Lactate WB 1.1 0.5 - 2.2 mmol/L [facility] LABORATORY Specimen Anatomical Collection Method Collection Time Receive d Time (Source) Location / / Volume Laterality Blood specimen 07/12/2016 2:34 PM 017 2:34 (specimen) EDT PM EDT Rolf Zayas MD CHEMISTRY ORDERABLES Performing Organization Address City/State/ZIP Code Phon e Number [address] Platelet count (07/12/2016 2:30 PM EDT) athologist Signature Platelets 172 145 - 357 [facility] x10(3)/[facility] LABORATORY Plat Immature 5.6 0.0 - 7.4 [facility] % % [facility] LABORATORY Comment: Limitation of the Immature Platelet Frac tion (IPF)-May be less reliable when the platelet count is less than 80s991/u L due to statistical imprecision. The IPF [...] in a decreased state of production. References: [employer] The Clinical Value of the Immature Platelet Fraction (IPF) in Cell Recovery Document Number [id number] 09/2010 [employer] The Role of the Imm ature Platelet Fraction (IPF) in the Differential Diagnosis of Thrombocytopen ia, Document [id number] V05/04/07 P0514 Specimen Anatomical Collection Method Collection Time Receive d Time (Source) Location / / Volume Laterality Blood specimen 07/12/2016 2:30 PM 017 2:37 (specimen) EDT PM EDT Resulting Agency Comment Spec In Lab Rolf Zayas MD HEMATOLOGY ORDERABLES Performing Organization Address City/State/ZIP [place] [address] (ABNORMAL) Hemoglobin and Hematocrit, blood (07/12/2016 2:30 PM EDT) P athologist Signature Hemoglobin 8.5 (L) 13.7 - 16.5 [facility] gm/dL [facility] LABORATORY Comment: These results were called to Elio rueda by Pilar Calhoun on 07-12-2016 at 1450; and were read back.. This result h as been called to ELIO CHRISTOPHER by Pilar Robles on 07 12 2016 a t 1650, and has been read back. Hematocrit 26.0 (L) 40.5 - 48.5 % [facility] LABORATORY Comment: This result has been [...] Zayas MD HEMATOLOGY ORDERABLES Performing Organization Address City/[facility]/ZIP [place] [address] Fibrinogen (07/12/2016 2:30 PM EDT) P athologist Signature Fibrinogen 355 180 - 510 [facility] mg/dL [facility] LABORATORY Comment: Called by: PARK, Read [...] Zayas MD HEMATOLOGY ORDERABLES Performing Organization Address City/[facility]/ZIP [place] [address] (ABNORMAL) BLOOD GAS 2 ARTERIAL (07/12/2016 2:08 PM EDT) Analysis Performed At Patho logist Time Signature pH Art 7.31 (L) 7.35 - [facility] 7.45 [facility] LABORATORY pCO2 Art 41 35 - 45 [facility] LABORATORY pO2 Art 289 (H) 85 - 104 [facility] LABORATORY HCO3 Art 19.9 (L) 20.0 - [facility] [address] [facility] mmol/[facility] LABORATORY BE Art -6.4 (L) -3.0 - 3.0 [facility] mmol/L [facility] LABORATORY Hgb Blood Gas 9.0 (L) 13.7 - [facility] 16.5 gm/dL [facility] O2HB Art 98.9 (H) 94.0 - [facility] 97.0 % [facility] LABORATORY COHB Art 0.2 % [facility] LABORATORY Comment: Nonsmokers: 0.5-1.5% COHB Smokers: Variable, but usually less than 10% Toxic: 20-30% COHB Lethal: Greater than 60% COHB METHB Art 0.3 <=1.5 % [facility] LABORATORY Na Whole Blood 128 (L) 135 - 145 mmol/L [facility] LABORATORY K Whole Blood 5.6 (H) 3.5 - 5.0 mmol/L [facility] LABORATORY Comment: Please note: Patients with WBC >100,000 may have falsely elevated Potassium levels. Contact the Clinical Chemistry L aboratory if there are any questions. ICa Whole Blood 0.89 (Critical) 1.15 - 1.33 mmol/L [facility] LABORATORY Comment: Note: ??Total bilirubin higher than 20 m g/dL may lead to falsely low ionized calcium. CL Whole Blood 99 98 - 107 mmol/L [facility] LABORATORY Gluc Whole Bld 313 (H) 65 - 199 mg/dL [facility] LABORATORY Comment: Diabetes: >=200 mg/dL plus symp toms. Lactate WB 0.9 0.5 - 2.2 mmol/L [facility] LABORATORY Specimen Anatomical Collection Method Collection Time Receive d Time (Source) Location / / Volume Laterality Blood specimen 07/12/2016 2:08 PM 017 2:08 (specimen) EDT PM EDT Rolf Zayas MD CHEMISTRY ORDERABLES Performing Organization Address City/State/Z[place] [address] (ABNORMAL) BLOOD GAS 2 ARTERIAL (07/12/2016 12:47 PM EDT) Analysis Performed At Patho logist Time Signature pH Art 7.41 7.35 - [facility] 7.45 [facility] LABORATORY pCO2 Art 35 35 - 45 [facility] mmHg [facility] LABORATORY pO2 Art 269 (H) 85 - 104 [facility] mmHg [facility] LABORATORY HCO3 Art 21.7 20.0 - [facility] [address] [facility] mmol/L [facility] LABORATORY BE Art -2.9 -3.0 - 3.0 [facility] mmol/L [facility] LABORATORY Hgb Blood Gas 13.6 (L) 13.7 - [facility] 16.5 gm/dL [facility] LABORATORY O2HB Art 98.7 (H) 94.0 - [facility] 97.0 % [facility] LABORATORY COHB Art 0.7 % [facility] LABORATORY Comment: Nonsmokers: 0.5-1.5% COHB Smokers: Variable, but usually less than 10% Toxic: 20-30% COHB Lethal: Greater than 60% COHB METHB Art 0.1 <=1.5 % [facility] LABORATORY Na Whole Blood 140 135 - 145 mmol/L [facility] LABORATORY K Whole Blood 4.1 3.5 - 5.0 mmol/L [facility] LABORATORY Comment: Please note: Patients with WBC >100,000 may have falsely elevated Potassium levels. Contact the Clinical Chemistry L aboratory if there are any questions. ICa Whole Blood 1.18 1.15 - 1.33 mmol/L [facility] LABORATORY Comment: Note: ??Total bilirubin higher than 20 m g/dL may lead to falsely low ionized calcium. CL Whole Blood 105 98 - 107 mmol/L [facility] LABORATORY Gluc Whole Bld 215 (H) 65 - 199 mg/dL [facility] LABORATORY Comment: Diabetes: >=200 mg/dL plus symp toms. Lactate WB 0.9 0.5 - 2.2 mmol/L [facility] LABORATORY Specimen Anatomical Collection Method Collection Time Receive d Time (Source) Location / / Volume Laterality Blood specimen 07/12/2016 12:47 7 (specimen) PM EDT 12:47 PM EDT Rolf Zayas MD CHEMISTRY ORDERABLES Performing Organization Address City/[facility]/ZIP Code Phon e Number [address] Prepare Coag Factors (Non-Hemophilia) (07/12/2016 10:45 AM EDT) P athologist Signature Dispensed? Yes [facility] LABORATORY Specimen Anatomical Collection Method Collection Time Receive d Time (Source) Location / / Volume Laterality Blood specimen 07/12/2016 10:45 7 (specimen) AM EDT 10:43 AM EDT Resulting Agency Comment Spec In Lab Rolf Zayas MD BLOOD BANK ORDERABLES Performing Organization Address [facility]/ZIP Code Phon e Number [address] Prepare RBC (07/12/2016 10:45 AM EDT) P athologist Signature Dispensed? Yes [facility] LABORATORY Specimen Anatomical Collection Method Collection Time Receive d Time (Source) Location / / Volume Laterality Blood specimen 07/12/2016 10:45 7 (specimen) AM EDT 10:43 AM EDT Resulting Agency Comment Spec In Lab Rolf Zayas MD BLOOD BANK ORDERABLES Performing Organization Address City/[facility]/ZIP [place] [address] POCT Glucose (07/12/2016 7:41 AM EDT) P athologist Signature POC Glucose 195 65 - 199 [facility] mg/dL [facility] LABORATORY Comment: Supplemental ranges: <140 mg/dL before meals <180 mg/dL all other times of the day Specimen Anatomical Collection Method Collection Time Receive d Time (Source) Location / / Volume Laterality Blood specimen 07/12/2016 7:41 AM 017 7:41 (specimen) EDT AM EDT Darrius Cotter MD POINT OF CARE TEST ORDERABLE S Performing Organization Address City/State/ZIP Code Phon e Number [address] (ABNORMAL) POCT Glucose (07/12/2016 4:34 AM EDT) P athologist Signature POC Glucose 201 (H) 65 - [address] [facility] mg/dL [facility] LABORATORY Comment: Supplemental ranges: <140 mg/dL before meals <180 mg/dL all other times of the day Specimen Anatomical Collection Method Collection Time Receive d Time (Source) Location / / Volume Laterality Blood specimen 07/12/2016 4:34 AM 017 4:34 (specimen) EDT AM EDT Darrius Cotter MD POINT OF CARE TEST ORDERABLE S Performing Organization Address City/State/ZIP Code Phon e Number [address] (ABNORMAL) Differential, Automated (07/12/2016 4:34 AM EDT) Patholo gist Method Time Signature Neutrophils % 49.7 % [facility] LABORATORY Neutr Abs (ANC) 4.54 1.70 - [facility] [address] [facility] x10(3)/[facility] LABORATORY Lymphocytes % 39.5 % [facility] LABORATORY Lymphocytes Abs 3.6 (H) 0.9 - 3.2 [facility] x10(3)/[facility] LABORATORY Monocytes % 7.8 % [facility] LABORATORY Monocyte Abs 0.7 0.3 - 0.9 [facility] x10(3)/[facility] LABORATORY Eosinophils % 2.2 % [facility] LABORATORY Eosinophils Abs 0.2 0.0 - 0.4 [facility] x10(3)/[facility] LABORATORY Basophils % 0.4 % [facility] LABORATORY Basophils Abs 0.0 0.0 - 0.1 [facility] x10(3)/[facility] LABORATORY Immature Gran % 0.40 % [facility] LABORATORY Comment: Immature granulocytes(IG's)percentage an d absolute count will include metamyelocytes, myelocytes, and promyelo cytes. Blood smears from CBCs yielding IG's will be scanned manually for concor dance. If this scan disagrees with the automated IG or if promyelocytes are not ed, a manual differential will be performed. Madhuri Gran Abs 0.04 0.00 - 0.04 x10(3)/[facility] LABORATORY Specimen Anatomical Collection Method Collection Time Receive d Time (Source) Location / / Volume Laterality Blood specimen 07/12/2016 4:34 AM 017 4:41 (specimen) EDT AM EDT Resulting Agency Comment Spec In Lab Darrius Cotter MD HEMATOLOGY ORDERABLES Performing Organization Address City/State/ZIP Code Phon e Number [place] [id number] Hemogram (07/12/2016 4:34 AM EDT) P athologist Signature WBC 9.1 4.0 - 9.5 [facility] x10(3)/[facility] LABORATORY RBC 4.81 4.58 - [facility] [address] [facility] x10(6)/[facility] LABORATORY Hemoglobin 14.5 13.7 - [facility] 16.5 gm/dL [facility] LABORATORY Hematocrit 43.5 40.5 - [facility] 48.5 % [facility] LABORATORY MCV 90.4 82.9 - [facility] 93[facility]1 [facility] LABORATORY MCH 30.1 27.5 - [facility] 32.1 pg [facility] LABORATORY MCHC 33.3 32.0 - [facility] 35.7 gm/dL [facility] LABORATORY Platelets 181 145 - 357 [facility] x10(3)/[facility] LABORATORY RDWSD 43.1 36.0 - [facility] 45.0 [facility] LABORATORY RDWCV 13.0 11.4 - [facility] 13.8 % [facility] LABORATORY MPV 10.7 7.6 - 12.9 [facility] LABORATORY nRBC % Auto 0.0 % [facility] LABORATORY nRBC Abs Auto 0.000 0.000 - [facility] [address] [facility] x10(3)/[facility] LABORATORY Specimen Anatomical Collection Method Collection Time Receive d Time (Source) Location / / Volume Laterality Blood specimen 07/12/2016 4:34 AM 017 4:41 (specimen) EDT AM EDT Resulting Agency Comment Spec In Lab Darrius Cotter MD HEMATOLOGY ORDERABLES Performing Organization Address City/[facility]/ZIP [place] [address] APTT (07/12/2016 4:34 AM EDT) P athologist Signature PTT 26 25 - 35 sec [facility] LABORATORY Comment: The recommended therapeutic range for fu ll dose, unfractionated heparin at [facility] is 80 ? 114 seconds. The use [...] Cotter MD HEMATOLOGY ORDERABLES Performing Organization Address [facility] [place] [address] Prothrombin Time (07/12/2016 4:34 AM EDT) P athologist Signature PT 12.9 12.0 - 15.0 [facility] LABORATORY Comment: An INR <2.0 indicates [...] linical circumstances. INR 0.9 0.9 - 1.1 [facility] LABORATORY Specimen Anatomical Collection Method Collection Time Receive d Time (Source) Location / / Volume Laterality Blood specimen 07/12/2016 4:34 AM 017 4:41 (specimen) EDT AM EDT Resulting Agency Comment Spec In Lab Darrius Cotter MD HEMATOLOGY ORDERABLES Performing Organization Address City/[facility]/Z[place] [address] [facility] [address] Magnesium (07/12/2016 4:34 AM EDT) athologist Signature Magnesium 0.69 0.69 - 1.07 [facility] mmol/L [facility] LABORATORY Specimen Anatomical Collection Method Collection Time Receive d Time (Source) Location / / Volume Laterality Blood specimen 07/12/2016 4:34 AM 017 4:41 (specimen) EDT AM EDT Resulting Agency Comment Spec In Lab Darrius Cotter MD CHEMISTRY ORDERABLES Performing Organization Address City/State/ZIP Code Phon e Number [address] (ABNORMAL) BMP w/fasting Glucose (07/12/2016 4:34 AM EDT) athologist Signature Glucose 208 (H) 65 - 99 [facility] Fasting mg/dL [facility] LABORATORY Comment: ?Fasting* Glucose Interpretive C [...] of Diabetes Mellitus, Position Statement from the [place] [employer]. ??Diabete s Care, Volume 33, Supplement 1, Apr 2009 BUN 13 10 - 20 mg/dL [facility] LABORATORY Creatinine 0.93 0.80 - 1.50 mg/dL [facility] LABORATORY Comment: Please note that the pediatric reference intervals supplied above were not validated at [facility]. Results from pediatri c patients should be interpreted in conjunction to the patient's age, height and muscle mass. Sodium 138 135 - 145 mmol/L [facility] LABORATORY Potassium 4.1 3.5 - 5.0 mmol/L [facility] LABORATORY Comment: Please note: ??Patients with WBC >100,00 0 may have falsely elevated Potassium levels. ??For accurate Potassium quantif ication in these patients send serum separator tube (gold top) for subsequent determinations. ??Contact the Clinical Chemistry Laboratory if there are any qu estions. Chloride 99 98 - 107 mmol/L [facility] LABORATORY CO2 24 22 - 31 mmol/L [facility] LABORATORY Anion Gap 15 5 - 15 mmol/L [facility] LABORATORY Calcium 9.4 8.5 - 10.5 mg/dL [facility] LABORATORY Estimated GFR >60 >=60 [facility] LABORATORY Comment: This estimated GFR (eGFR) [...] the following links into your internet browser. [email or web address] Specimen Anatomical Collection Method Collection Time Receive d Time (Source) Location / / Volume Laterality Blood specimen 07/12/2016 4:34 AM 017 4:41 (specimen) EDT AM EDT Resulting Agency Comment Spec In Lab Darrius Cotter MD CHEMISTRY ORDERABLES Performing Organization Address City/State/Z[place] [address] POCT Glucose (07/11/2016 11:38 PM EDT) P athologist Signature POC Glucose 118 65 - 199 [facility] mg/dL [facility] LABORATORY Comment: Supplemental ranges: <140 mg/dL before meals <180 mg/dL all other times of the day Specimen Anatomical Collection Method Collection Time Receive d Time (Source) Location / / Volume Laterality Blood specimen 07/11/2016 11:38 7 (specimen) PM EDT 11:38 PM EDT Darrius Cotter MD POINT OF CARE TEST ORDERABLE S Performing Organization Address City/State/ZIP Code Phon e Number [address] (ABNORMAL) POCT Glucose (07/11/2016 8:00 PM EDT) P athologist Signature POC Glucose 205 (H) 65 - 199 [facility] LABORATORY Comment: Supplemental ranges: <140 mg/dL before meals <180 mg/dL all other times of the day Specimen Anatomical Collection Method Collection Time Receive d Time (Source) Location / / Volume Laterality Blood specimen 07/11/2016 8:00 PM 017 8:00 (specimen) EDT PM EDT Darrius Cotter MD POINT OF CARE TEST ORDERABLE S Performing Organization Address City/State/Z[place] [address] XR Chest PA & [...] Signature POC Glucose 175 65 - 199 [facility] mg/dL [facility] LABORATORY Comment: Supplemental ranges: <140 mg/dL before meals <180 mg/dL all other times of the day Specimen Anatomical Collection Method Collection Time Receive d Time (Source) Location / / Volume Laterality Blood specimen 07/11/2016 4:10 PM 017 4:10 (specimen) EDT PM EDT Darrius Cotter MD POINT OF CARE TEST ORDERABLE S Performing Organization Address City/State/[place] [address] Angiogram Pelvis (07/11/2016 [...] small vascular lesion, consider follow-up study with mt scular duplex. Steno-occlusive atherosclerotic disease of the [...] ABORH Recheck Status (07/11/2016 2:44 PM EDT) [facility] Method Time Signature ABORH Recheck Order Placed [facility] LABORATORY ABORH Type Complete [facility] LABORATORY Specimen Anatomical Collection Method Collection Time Receive d Time (Source) Location / / Volume Laterality Blood specimen 07/11/2016 2:44 PM 017 3:15 (specimen) EDT PM EDT Resulting Agency Comment Spec In Lab Darrius Cotter MD BLOOD BANK ORDERABLES Performing Organization Address City/[facility]/ZIP Code Phon e Number [address] Antibody screen (07/11/2016 2:44 PM EDT) [facility] Method Time Signature Ab Screen Negative [facility] LABORATORY Expires at 07/14/2016 [facility] [id number] on: [facility] LABORATORY Specimen Anatomical Collection Method Collection Time Receive d Time (Source) Location / / Volume Laterality Blood specimen 07/11/2016 2:44 PM 017 3:15 (specimen) EDT PM EDT Resulting Agency Comment Spec In Lab Darrius Cotter MD BLOOD BANK ORDERABLES Performing Organization Address City/[facility]/Z[place] [address] ABO/Rh Typing (07/11/2016 2:44 PM EDT) P athologist Signature ABORh Type A Pos [facility] LABORATORY Specimen Anatomical Collection Method Collection Time Receive d Time (Source) Location / / Volume Laterality Blood specimen 07/11/2016 2:44 PM 017 3:15 (specimen) EDT PM EDT Resulting Agency Comment Spec In Lab Darrius Cotter MD BLOOD BANK ORDERABLES Performing Organization Address City/[facility]/ZIP [place] [address] Arterial Duplex Leg, Unil (07/11/2016 12:31 PM EDT) Component Value Ref Test Analysis Performed At [facility] Range Method Time Signature VB Text Department: Vascular Surgery Lab VASCUBASE Report Patient: [id number] (BERTIN BERRY) CPT: 15335 ICD10: T82.590A Referring Physician: DARRIUS COTTER ?? [...] VASCUBASE POCT Glucose (07/11/2016 11:40 AM EDT) P athologist Signature POC Glucose 183 65 - 199 ANA AFIA mg/dL [facility] Comment: Supplemental ranges: <140 mg/dL before meals <180 mg/dL all other times of the day Specimen Anatomical Collection Method Collection Time Receive d Time (Source) Location / / Volume Laterality Blood specimen 07/11/2016 11:40 201 7 (specimen) AM EDT 11:40 AM EDT Darrius Cotter MD POINT OF CARE TEST ORDERABLE S Performing Organization Address [facility]/ZIP [facility] [place] [address] POCT Glucose (07/11/2016 7:38 AM EDT) athologist Signature POC Glucose 145 65 - 199 [facility] mg/dL [facility] Comment: Supplemental ranges: <140 mg/dL before meals <180 mg/dL all other times of the day Specimen Anatomical Collection Method Collection Time Receive d Time (Source) Location / / Volume Laterality Blood specimen 07/11/2016 7:38 AM 017 7:38 (specimen) EDT AM EDT Darrius Cotter MD POINT OF CARE TEST ORDERABLE S Performing Organization Address [facility] [place] [address] (ABNORMAL) APTT (07/11/2016 4:04 AM EDT) athologist Signature PTT 90 (H) 25 - 35 sec [facility] Comment: The recommended therapeutic range for fu ll dose, unfractionated heparin at [facility] is 80 ? 114 seconds. The use [...] Cotter MD HEMATOLOGY ORDERABLES Performing Organization Address City/[facility]/ZIP [facility] Phon e Number [address] (ABNORMAL) Differential, Automated (07/11/2016 4:04 AM EDT) Patholo gist Method Time Signature Neutrophils % 42.3 % [facility] Neutr Abs (ANC) 4.51 1.70 - [facility] [address] [facility] x10(3)/[facility] LABORATORY Lymphocytes % 46.7 % [facility] Lymphocytes Abs 5.0 (H) 0.9 - 3.2 [facility] x10(3)/[facility] LABORATORY Monocytes % 7.5 % [facility] Monocyte Abs 0.8 0.3 - 0.9 [facility] x10(3)/[facility] LABORATORY Eosinophils % 2.3 % [facility] Eosinophils Abs 0.2 0.0 - 0.4 [facility] x10(3)/[facility] LABORATORY Basophils % 0.5 % [facility] Basophils Abs 0.0 0.0 - 0.1 [facility] x10(3)/[facility] LABORATORY Immature Gran % 0.70 % [facility] Comment: Immature granulocytes(IG's)percentage an d absolute count will include metamyelocytes, myelocytes, and promyelo cytes. Blood smears from CBCs yielding IG's will be scanned manually for concor dance. If this scan disagrees with the automated IG or if promyelocytes are not ed, a manual differential will be performed. Madhuri Gran Abs 0.07 (H) 0.00 - 0.04 x10(3)/[facility] LABORATORY Specimen Anatomical Collection Method Collection Time Receive d Time (Source) Location / / Volume Laterality Blood specimen 07/11/2016 4:04 AM 017 4:25 (specimen) EDT AM EDT Resulting Agency Comment Spec In Lab Darrius Cotter MD HEMATOLOGY ORDERABLES Performing Organization Address City/State/[place] [address] (ABNORMAL) Hemogram (07/11/2016 4:04 AM EDT) Analysis Performed At [facility] logist Time Signature WBC 10.6 (H) 4.0 - 9.5 [facility] x10(3)/[facility] LABORATORY RBC 5.05 4.58 - [facility] [address] [facility] x10(6)/[facility] LABORATORY Hemoglobin 15.0 13.7 [facility] 16.5 gm/dL [facility] Hematocrit 45.5 40.5 - [facility] 48.5 % [facility] MCV 90.1 82.9 - [facility] LAB[facility]ATORY MCH 29.7 27.5 - [facility] 32.1 pg [facility] MCHC 33.0 32.0 - [facility] 35.7 gm/dL [facility] Platelets 206 145 - 357 [facility] x10(3)/[facility] LABORATORY RDWSD 44.0 36.0 - [facility] 45.0 [facility] LABORATORY RDWCV 13.2 11.4 - [facility] 13.8 % [facility] MPV 11.1 7.6 - 12.9 [facility] LABORATORY nRBC % Auto 0.0 % [facility] nRBC Abs Auto 0.000 0.000 - [facility] [address] [facility] x10(3)/[facility] LABORATORY Specimen Anatomical Collection Method Collection Time Receive d Time (Source) Location / / Volume Laterality Blood specimen 07/11/2016 4:04 AM 017 4:25 (specimen) EDT AM EDT Resulting Agency Comment Spec In Lab Darrius Cotter MD HEMATOLOGY ORDERABLES Performing Organization Address City/State/[place] [address] (ABNORMAL) Basic Metabolic Panel (non-fasting) (07/11/2016 4:04 AM EDT) athologist Signature Glucose Lvl 223 (H) 65 - 199 [facility] mg/dL [facility] Comment: Diabetes: >=200 mg/dL plus symp toms BUN 11 10 - 20 mg/dL [facility] Creatinine 0.82 0.80 - 1.50 mg/dL [facility] Comment: Please note that the pediatric reference intervals supplied above were not validated at [facility]. Results from pediatri c patients should be interpreted in conjunction to the patient's age, height and muscle mass. Sodium 139 135 - 145 mmol/L [facility] Potassium 4.2 3.5 - 5.0 mmol/L [facility] Comment: Please note: ??Patients with WBC >100,00 0 may have falsely elevated Potassium levels. ??For accurate Potassium quantif ication in these patients send serum separator tube (gold top) for subsequent determinations. ??Contact the Clinical Chemistry Laboratory if there are any qu estions. Chloride 97 (L) 98 - 107 mmol/L [facility] CO2 27 22 - 31 mmol/L [facility] Anion Gap 15 5 - 15 mmol/L [facility] Calcium 9.5 8.5 - 10.5 mg/dL [facility] Estimated GFR >60 >=60 [facility] Comment: This estimated GFR (eGFR) [...] the following links into your internet browser. [email or web address] Specimen Anatomical Collection Method Collection Time Receive d Time (Source) Location / / Volume Laterality Blood specimen 07/11/2016 4:04 AM 017 4:25 (specimen) EDT AM EDT Resulting Agency Comment Spec In Lab Darrius Cotter MD CHEMISTRY ORDERABLES Performing Organization Address City/State/[place] [address] POCT Glucose (07/11/2016 4:02 AM EDT) P athologist Signature POC Glucose 198 65 - 199 [facility] mg/dL [facility] Comment: Supplemental ranges: <140 mg/dL before meals <180 mg/dL all other times of the day Specimen Anatomical Collection Method Collection Time Receive d Time (Source) Location / / Volume Laterality Blood specimen 07/11/2016 4:02 AM 017 4:02 (specimen) EDT AM EDT Darrius Cotter MD POINT OF CARE TEST ORDERABLE S Performing Organization Address City/[facility]/ZIP [place] [address] POCT Glucose (07/11/2016 12:23 AM EDT) P athologist Signature POC Glucose 156 65 - 199 [facility] mg/dL [facility] Comment: Supplemental ranges: <140 mg/dL before meals <180 mg/dL all other times of the day Specimen Anatomical Collection Method Collection Time Receive d Time (Source) Location / / Volume Laterality Blood specimen 07/11/2016 12:23 7 (specimen) AM EDT 12:23 AM EDT Darrius Cotter MD POINT OF CARE TEST ORDERABLE S Performing Organization Address [facility] [place] [address] (ABNORMAL) APTT (07/10/2016 8:35 PM EDT) P athologist Signature PTT 90 (H) 25 - 35 sec [facility] Comment: The recommended therapeutic range for fu ll dose, unfractionated heparin at [facility] is 80 ? 114 seconds. The use [...] Cotter MD HEMATOLOGY ORDERABLES Performing Organization Address City/[facility]/ZIP Code Phon e Number [address] POCT Glucose (07/10/2016 7:47 PM EDT) athologist Signature POC Glucose 197 65 - 199 ANA AFIA mg/dL [facility] Comment: Supplemental ranges: <140 mg/dL before meals <180 mg/dL all other times of the day Specimen Anatomical Collection Method Collection Time Receive d Time (Source) Location / / Volume Laterality Blood specimen 07/10/2016 7:47 PM 017 7:47 (specimen) EDT PM EDT Darrius Cotter MD POINT OF CARE TEST ORDERABLE S Performing Organization Address City/State/ZIP Code Phon e Number [address] POCT Glucose (07/10/2016 4:20 PM EDT) athologist Signature POC Glucose 195 65 - 199 ANA AFIA mg/dL [facility] Comment: Supplemental ranges: <140 mg/dL before meals <180 mg/dL all other times of the day Specimen Anatomical Collection Method Collection Time Receive d Time (Source) Location / / Volume Laterality Blood specimen 07/10/2016 4:20 PM 017 4:20 (specimen) EDT PM EDT Darrius Cotter MD POINT OF CARE TEST ORDERABLE S Performing Organization Address City/State/ZIP [place] [address] (ABNORMAL) POCT Glucose (07/10/2016 12:24 PM EDT) athologist Signature POC Glucose 221 (H) 65 - 199 ANA AFAI mg/dL [facility] Comment: Supplemental ranges: <140 mg/dL before meals <180 mg/dL all other times of the day Specimen Anatomical Collection Method Collection Time Receive d Time (Source) Location / / Volume Laterality Blood specimen 07/10/2016 12:24 7 (specimen) PM EDT 12:24 PM EDT Darrius Cotter MD POINT OF CARE TEST ORDERABLE S Performing Organization Address City/State/ZIP [place] [address] (ABNORMAL) APTT (07/10/2016 12:02 PM EDT) athologist Signature PTT 58 (H) 25 - 35 sec [facility] Comment: The recommended therapeutic range for fu ll dose, unfractionated heparin at [facility] is 80 ? 114 seconds. The use [...] Cotter MD HEMATOLOGY ORDERABLES Performing Organization Address City/[facility]/ZIP Code Phon e Number [address] POCT Glucose (07/10/2016 7:57 AM EDT) athologist Signature POC Glucose 194 65 - 199 [facility] mg/dL [facility] Comment: Supplemental ranges: <140 mg/dL before meals <180 mg/dL all other times of the day Specimen Anatomical Collection Method Collection Time Receive d Time (Source) Location / / Volume Laterality Blood specimen 07/10/2016 7:57 AM 017 7:57 (specimen) EDT AM EDT Darrius Cotter MD POINT OF CARE TEST ORDERABLE S Performing Organization Address City/[facility]/ZIP [facility] [place] [address] (ABNORMAL) Differential, Automated (07/10/2016 5:04 AM EDT) [facility] gist Method Time Signature Neutrophils % 46.1 % [facility] Neutr Abs (ANC) 5.02 1.70 - [facility] [address] [facility] x10(3)/[facility] LABORATORY Lymphocytes % 43.6 % [facility] Lymphocytes Abs 4.8 (H) 0.9 - 3.2 [facility] x10(3)/[facility] LABORATORY Monocytes % 7.3 % [facility] Monocyte Abs 0.8 0.3 - 0.9 [facility] x10(3)/[facility] LABORATORY Eosinophils % 1.5 % [facility] Eosinophils Abs 0.2 0.0 - 0.4 [facility] x10(3)/[facility] LABORATORY Basophils % 0.6 % [facility] Basophils Abs 0.1 0.0 - 0.1 [facility] x10(3)/[facility]ORATORY Immature Gran % 0.90 % [facility] Comment: Immature granulocytes(IG's)percentage an d absolute count will include metamyelocytes, myelocytes, and promyelo cytes. Blood smears from CBCs yielding IG's will be scanned manually for concor dance. If this scan disagrees with the automated IG or if promyelocytes are not ed, a manual differential will be performed. Madhuri Gran Abs 0.10 (H) 0.00 - 0.04 x10(3)/[facility] LABORATORY Specimen Anatomical Collection Method Collection Time Receive d Time (Source) Location / / Volume Laterality Blood specimen 07/10/2016 5:04 AM 017 5:10 (specimen) EDT AM EDT Resulting Agency Comment Spec In Lab Darrius Cotter MD HEMATOLOGY ORDERABLES Performing Organization Address City/State/[place] [address] (ABNORMAL) Hemogram (07/10/2016 5:04 AM EDT) Analysis Performed At Patho logist Time Signature WBC 10.9 (H) 4.0 - 9.5 [facility] x10(3)/[facility] LABORATORY RBC 5.08 4.58 - [facility] [address] [facility] x10(6)/[facility]ORY Hemoglobin 14.9 13.7 - [facility]m/dL [facility] Hematocrit 44.7 40.5 - [facility] 48.5 % [facility] MCV 88.0 82.9 - [facility] 93.1 fL [facility] MCH 29.3 27.5 - [facility] 32.1 pg [facility] MCHC 33.3 32.0 - [facility] 35.7 gm/dL [facility] Platelets 180 145 - 357 [facility] AFIA x10(3)/[facility] LABORATORY RDWSD 42.4 36.0 - ANA AFIA 45.0 [facility] LABORATORY RDWCV 13.0 11.4 - [facility] AFIA 13.8 % [facility] MPV 11.1 7.6 - 12.9 ANA AFIA [facility] LABORATORY nRBC % Auto 0.0 % [facility] nRBC Abs Auto 0.000 0.000 - [place] [address] [facility] x10(3)/[facility] LABORATORY Specimen Anatomical Collection Method Collection Time Receive d Time (Source) Location / / Volume Laterality Blood specimen 07/10/2016 5:04 AM 017 5:10 (specimen) EDT AM EDT Resulting Agency Comment Spec In Lab Darrius Cotter MD HEMATOLOGY ORDERABLES Performing Organization Address [facility] Code Phon e Number [address] (ABNORMAL) APTT (07/10/2016 5:03 AM EDT) P athologist Signature PTT 64 (H) 25 - 35 sec [facility] Comment: The recommended therapeutic range for fu ll dose, unfractionated heparin at [facility] is 80 ? 114 seconds. The use [...] Cotter MD HEMATOLOGY ORDERABLES Performing Organization Address City/[facility] Phon e Number [address] POCT Glucose (07/10/2016 4:27 AM EDT) P athologist Signature POC Glucose 194 65 - [address] [facility] mg/dL [facility] Comment: Supplemental ranges: <140 mg/dL before meals <180 mg/dL all other times of the day Specimen Anatomical Collection Method Collection Time Receive d Time (Source) Location / / Volume Laterality Blood specimen 07/10/2016 4:27 AM 017 4:27 (specimen) EDT AM EDT Darrius Cotter MD POINT OF CARE TEST ORDERABLE S Performing Organization Address City/State/Z[place] [address] POCT Glucose (07/09/2016 11:43 PM EDT) athologist Signature POC Glucose 148 65 - 199 ANA AFIA mg/dL [facility] Comment: Supplemental ranges: <140 mg/dL before meals <180 mg/dL all other times of the day Specimen Anatomical Collection Method Collection Time Receive d Time (Source) Location / / Volume Laterality Blood specimen 07/09/2016 11:43 7 (specimen) PM EDT 11:43 PM EDT Darrius Cotter MD POINT OF CARE TEST ORDERABLE S Performing Organization Address City/State/ZIP [place] [address] POCT Glucose (07/09/2016 10:31 PM EDT) athologist Signature POC Glucose 180 65 - 199 ANA AFIA mg/dL [facility] Comment: Supplemental ranges: <140 mg/dL before meals <180 mg/dL all other times of the day Specimen Anatomical Collection Method Collection Time Receive d Time (Source) Location / / Volume Laterality Blood specimen 07/09/2016 10:31 201 7 (specimen) PM EDT 10:31 PM EDT Darrius Cotter MD POINT OF CARE TEST ORDERABLE S Performing Organization Address City/State/ZIP [place] [address] (ABNORMAL) POCT Glucose (07/09/2016 8:37 PM EDT) athologist Signature POC Glucose 262 (H) 65 - 199 ANA AFIA mg/dL [facility] Comment: Supplemental ranges: <140 mg/dL before meals <180 mg/dL all other times of the day Specimen Anatomical Collection Method Collection Time Receive d Time (Source) Location / / Volume Laterality Blood specimen 07/09/2016 8:37 PM 017 8:37 (specimen) EDT PM EDT Darrius Cotter MD POINT OF CARE TEST ORDERABLE S Performing Organization Address City/[facility]/ZIP [place] [address] Potassium (07/09/2016 7:47 PM EDT) athologist Signature Potassium 4.5 3.5 - 5.0 [facility] mmol/L [facility] Comment: Please note: ??Patients with [...] Cotter MD CHEMISTRY ORDERABLES Performing Organization Address City/[facility]/Z[place] [address] (ABNORMAL) Cardiac Enzymes (07/09/2016 7:47 PM EDT) athologist Signature Troponin-T 2.03 (H) <=0.03 [facility] ng/mL [facility] Comment: Result rechecked. 0.03 ng/mL: [...] consensus document of the Joint Society of Cardiology/[employer] Committee for the redefinition of myocardial infarction. ? ?Journal of the [place] [employer] 2000; 36: 959-969] CK, Total 921 (H) 0 - 200 unit/L [facility] Specimen Anatomical Collection Method Collection Time Receive d Time (Source) Location / / Volume Laterality Blood specimen 07/09/2016 7:47 PM 017 7:55 (specimen) EDT PM EDT Resulting Agency Comment Spec In Lab Darrius Cotter MD CHEMISTRY ORDERABLES Performing Organization Address City/[facility] [place] [address] (ABNORMAL) POCT Glucose (07/09/2016 7:38 PM EDT) P athologist Signature POC Glucose 290 (H) 65 - [address] [facility] mg/dL [facility] Comment: Supplemental ranges: <140 mg/dL before meals <180 mg/dL all other times of the day Specimen Anatomical Collection Method Collection Time Receive d Time (Source) Location / / Volume Laterality Blood specimen 07/09/2016 7:38 PM 017 7:38 (specimen) EDT PM EDT Darrius Cotter MD POINT OF CARE TEST ORDERABLE S Performing Organization Address City/[facility] [place] [address] (ABNORMAL) POCT Glucose (07/09/2016 5:28 PM EDT) P athologist Signature POC Glucose 275 (H) 65 - 199 [facility] Comment: Supplemental ranges: <140 mg/dL before meals <180 mg/dL all other times of the day Specimen Anatomical Collection Method Collection Time Receive d Time (Source) Location / / Volume Laterality Blood specimen 07/09/2016 5:28 PM 017 5:28 (specimen) EDT PM EDT Darrius Cotter MD POINT OF CARE TEST ORDERABLE S Performing Organization Address City/[facility] [place] [address] (ABNORMAL) POCT Glucose (07/09/2016 11:16 AM EDT) P athologist Signature POC Glucose 291 (H) 65 - 199 ANA OREILLY mg/dL [facility] Comment: Supplemental ranges: <140 mg/dL before meals <180 mg/dL all other times of the day Specimen Anatomical Collection Method Collection Time Receive d Time (Source) Location / / Volume Laterality Blood specimen 07/09/2016 11:16 7 (specimen) AM EDT 11:16 AM EDT Darrius Cotter MD POINT OF CARE TEST ORDERABLE S Performing Organization Address City/State/ZIP [place] [address] ECHOCARDIOGRAM COMPLETE (07/09/2016 9:46 AM EDT) athologist Signature EF 56 [facility] Specimen (Source) Anatomical Location Collection Method / Collectio n Time Received Time / Laterality Volume 07/09/2016 Narrative [facility] - 07/09/2016 10:49 AM ED T Procedure: ?Transthoracic Echocardiogram Patient: ?JAMAL DENTON ?? (Age): 1960(55y) Med Rec#: ? [id number] ?Sex: ?M ? Site Loc: ? [facility] ?Ht / Wt: ??167(cm)/77(kg) Pt. Loc: ?[facility] ? BSA: ?1.86 Study Date: ?? 07/09/2016 ?Pt. Type: Inpatient Tape: ? Referring: LAHEYMICHAELJ Referring: Griffin Irvin ([id number]) Reading: Steffen Velasco ([id number]) Piston Maker: Tammie Rose Interpreting Fellow: Jennifer Solis ([id number]) Diagnosis: *ICD-10-PCS Chest pain, unspecified (R0 7.9) CPT Codes: *Echo Full (88080) *Spectral Doppler (63111) *Color Doppler (02183) BP: ? 123/74 SUMMARY: 1. The left [...] normal. ?There is no evidence of aortic omsan ve stenosis. ?There is no evidence of [...] E-wave Vmax ?0.9 ?m/sec ? MV deceleration crqi140.8 ? msec ? MV A-wave Vmax ?0.9 [...] ? Mid-Inferior ?Hypokinetic ? Mid-Inferoseptal ?Normal ? Means-Septal ? Normal ? Means-Anterior ? Normal ? Means-Lateral ?Hypokinetic ? Means-Inferior ? Hypokinetic ? Means-Tip ?Hypokinetic ? This report has been electronically sign ed by: _ Steffen Velasco MD ? 07/09/2016 10:49 :20 Images reviewed and interpretation charleneif [email or web address] [facility] Cardiac Ultrasound Laboratory Procedure Note Steffen Velasco MD - 07/09/2016Formattin g of this note might be different from the original. Procedure: Transthoracic Echocardiogram Patient: JAMAL LORENZ(Age): 0 1960(55y) Med Rec#: [id number] Sex: M Site Loc: [facility] Ht / Wt: 167(cm)/77(kg) Pt. Loc: [facility] BSA: 1.86 Study Date: 07/09/2016 Pt. Type: Inpatie nt Tape: Ref[facility] Referring: Griffin Irvin ([id number]) Reading: Steffen Velasco ([id number]) Piston Maker: Tammie Rose [facility] Interpreting Fellow: Jennifer Solis ([id number]) Diagnosis: *ICD-10-PCS Chest pain, unspecified (R0 7.9) CPT Codes: *Echo Full (40350) *Spectral Doppler (80568) *Color Doppler (55263) BP: 123/74 SUMMARY: 1. The left ventricular [...] MV E-wave Vmax 0.9 m/sec MV deceleration gktw265.8 msec MV A-wave Vmax 0.9 m/sec MV [...] Akinetic Mid-Posterolateral Akinetic Mid-Inferior Hypokinetic Mid-Inferoseptal Normal Means-Septal Normal Means-Anterior Normal Means-Lateral Hypokinetic Means-Inferior Hypokinetic Means-Tip Hypokinetic This report has been electronically sign ed by: _ Steffen Velasco MD 07/09/2016 10:49:20 Images reviewed and interpretation verif ied [facility] Griffin Irvin MD ECHO ORDERABLES Performing Organization Address City/State/ZIP Code Phon e Number [facility] (ABNORMAL) Cardiac Enzymes (07/09/2016 9:40 AM EDT) athologist Signature Troponin-T 4.26 (H) <=0.03 [facility] ng/mL [facility] Comment: result rechecked-kml 0.03 ng/mL: [...] consensus document of the Joint Society of Cardiology/[place] [employer] o f [employer] Committee for the redefinition of myocardial infarction. ? ?Journal of the [place] College [employer]iology 2000; 36: 959-969] CK, Total 1,648 (H) 0 - 200 unit/L [facility] Specimen Anatomical Collection Method Collection Time Receive d Time (Source) Location / / Volume Laterality Blood specimen 07/09/2016 9:40 AM 017 (specimen) EDT 11:14 AM EDT Resulting Agency Comment Spec In Lab Darrius Cotter MD CHEMISTRY ORDERABLES Performing Organization Address City/State/[place] [address] APTT (07/09/2016 9:40 AM EDT) athologist Signature PTT 28 25 - 35 sec [facility] Comment: The recommended therapeutic range for fu ll dose, unfractionated heparin at [facility] is 80 ? 114 seconds. The use [...] Cotter MD HEMATOLOGY ORDERABLES Performing Organization Address City/[facility]/ZIP [place] [address] (ABNORMAL) POCT Glucose (07/09/2016 8:21 AM EDT) athologist Signature POC Glucose 255 (H) 65 - [address] [facility] mg/dL [facility] Comment: Supplemental ranges: <140 mg/dL before meals <180 mg/dL all other times of the day Specimen Anatomical Collection Method Collection Time Receive d Time (Source) Location / / Volume Laterality Blood specimen 07/09/2016 8:21 AM 017 8:21 (specimen) EDT AM EDT Darrius Cotter MD POINT OF CARE TEST ORDERABLE S Performing Organization Address City/[facility]/ZIP [place] [address] (ABNORMAL) POCT Glucose (07/09/2016 4:19 AM EDT) athologist Signature POC Glucose 246 (H) 65 - 199 [facility] Comment: Supplemental ranges: <140 mg/dL before meals <180 mg/dL all other times of the day Specimen Anatomical Collection Method Collection Time Receive d Time (Source) Location / / Volume Laterality Blood specimen 07/09/2016 4:19 AM 017 4:19 (specimen) EDT AM EDT Terell Munguia MD POINT OF CARE TEST ORDERABLE S Performing Organization Address City/[facility]/ZIP Code Phon e Number [address] (ABNORMAL) POCT Glucose (07/09/2016 2:16 AM EDT) P athologist Signature POC Glucose 252 (H) 65 - [address] [facility] mg/dL [facility] Comment: Supplemental ranges: <140 mg/dL before meals <180 mg/dL all other times of the day Specimen Anatomical Collection Method Collection Time Receive d Time (Source) Location / / Volume Laterality Blood specimen 07/09/2016 2:16 AM 017 2:16 (specimen) EDT AM EDT Terell Munguia MD POINT OF CARE TEST ORDERABLE S Performing Organization Address City/[facility]/ZIP Code Phon e Number [address] LDL Cholesterol, Direct (07/09/2016 1:30 AM EDT) athologist Signature LDL Chol 159 <=190 [facility] Direct mg/dL [facility] Specimen Anatomical Collection Method Collection Time Receive d Time (Source) Location / / Volume Laterality Blood specimen 07/09/2016 1:30 AM 017 1:59 (specimen) EDT AM EDT Resulting Agency Comment Spec In Lab Terell Munguia MD CHEMISTRY ORDERABLES Performing Organization Address City/[facility]/ZIP Code Phon e Number [address] (ABNORMAL) Differential, Automated (07/09/2016 1:30 AM EDT) Patholo gist Method Time Signature Neutrophils % 55.0 % [facility] Neutr Abs (ANC) 6.74 (H) 1.70 - [facility] [address] [facility] x10(3)/[facility] L LABORATORY Lymphocytes % 35.1 % [facility] Lymphocytes Abs 4.3 (H) 0.9 - 3.2 [facility] x10(3)/[facility] LABORATORY Monocytes % 7.7 % [facility] Monocyte Abs 0.9 0.3 - 0.9 [facility] x10(3)/[facility] LABORATORY Eosinophils % 0.8 % [facility] Eosinophils Abs 0.1 0.0 - 0.4 [facility] x10(3)/[facility] LABORATORY Basophils % 0.6 % [facility] Basophils Abs 0.1 0.0 - 0.1 [facility] x10(3)/[facility] LABORATORY Immature Gran % 0.80 % [facility] Comment: Immature granulocytes(IG's)percentage an d absolute count will include metamyelocytes, myelocytes, and promyelo cytes. Blood smears from CBCs yielding IG's will be scanned manually for concor dance. If this scan disagrees with the automated IG or if promyelocytes are not ed, a manual differential will be performed. Madhuri Gran Abs 0.10 (H) 0.00 - 0.04 x10(3)/[facility] LABORATORY Specimen Anatomical Collection Method Collection Time Receive d Time (Source) Location / / Volume Laterality Blood specimen Venous Draw / 07/09/2016 1:30 AM 2016 1:51 (specimen) Unknown EDT AM EDT Resulting Agency Comment Spec In Lab Terell Munguia MD HEMATOLOGY ORDERABLES Performing Organization Address City/State/[place] [address] (ABNORMAL) Hemogram (07/09/2016 1:30 AM EDT) Analysis Performed At Patho logist Time Signature WBC 12.2 (H) 4.0 - 9.5 [facility] x10(3)/[facility] LABORATORY RBC 5.11 4.58 - [facility] [address] [facility] x10(6)/[facility] LABORATORY Hemoglobin 15.1 13.7 - [facility] g[facility]/dL [facility] Hematocrit 45.0 40.5 - [facility] 48.5 % [facility] MCV 88.1 82.9 - [facility] 93.1 [facility] LABORATORY MCH 29.5 27.5 - ANA OREILLY 32.1 pg [facility] MCHC 33.6 32.0 - A[facility] OREILLY 35.7 gm/dL [facility] Platelets 202 145 - 357 [facility] x10(3)/[facility] LABORATORY RDWSD 42.5 36.0 - [facility] DURANT[facility]IA 45.0 [facility] LABORATORY RDWCV 13.1 11.4 - [facility] 13.8 % [facility] MPV 10.9 7.6 - 12.9 [facility] LABORATORY nRBC % Auto 0.0 % [facility] nRBC Abs Auto 0.000 0.000 - [facility] [address] [facility] x10(3)/[facility] LABORATORY Specimen Anatomical Collection Method Collection Time Receive d Time (Source) Location / / Volume Laterality Blood specimen Venous Draw / 07/09/2016 1:30 AM 2016 1:51 (specimen) Unknown EDT AM EDT Resulting Agency Comment Spec In Lab Terell Munguia MD HEMATOLOGY ORDERABLES Performing Organization Address City/State/Z[place] [address] (ABNORMAL) APTT (07/09/2016 1:30 AM EDT) P athologist Signature PTT 20 (L) 25 - 35 sec [facility] Comment: Decreased clotting times may be caused b y improper phlebotomy technique. The recommended therapeutic range for fu ll dose, unfractionated heparin at [facility] is 80 ? 114 seconds. The use [...] Munguia MD HEMATOLOGY ORDERABLES Performing Organization Address City/[facility]/Z[place] [address] Blue Tube HOLD (07/09/2016 1:30 AM EDT) P athologist Signature Blue Hold Sample in [facility]. [facility] Specimen Anatomical Collection Method Collection Time Receive d Time (Source) Location / / Volume Laterality Blood specimen Venous Draw / 07/09/2016 1:30 AM 2016 1:42 (specimen) Unknown EDT AM EDT Terell Munguia MD HEMATOLOGY ORDERABLES Performing Organization Address City/State/[place] [address] (ABNORMAL) Lipid Panel (07/09/2016 1:30 AM EDT) Patholo gist Method Time Signature Chol, Total 295 (H) <=239 [facility] mg/dL [facility] Triglycerides 1,000 (H) <=199 [facility] mg/dL [facility] Comment: result rechecked: bju HDL 23 (L) >=40 mg/dL [facility] LDL Cholesterol Not Perf <=190 mg/dL [facility] Comment: Since a calculated LDL value is not josette d for triglycerides greater than 400 mg/dl, a direct LDL determination is per formed instead. Chol/HDL Ratio 12.8 ratio [facility] Lipid Interpretation See Note [facility] Comment: Lipid management should be guided by a p atient? s ASCVD risk, goals and preferences. ACC/AHA Guidelines recommend high intens ity statin if clinical ASCVD or LDL greater than or equal to 190 mg/dL. http://circ.ahajournals.org/content/iliana y/.cir.4919779952.99486.7a Adults aged 40-75 with LDL 70-189 mg/dL should have their 10 year ASCVD risk estimated with the ACC/AHA ASCVD risk es timator http://tools.acc.org/FCBXZ-Fwah-Zictklfp r/ Statin should be discussed if risk [...] Organization Address City/State/Z[place] [address] (ABNORMAL) Hemoglobin A1c (07/09/2016 1:30 AM EDT) [facility] Method Time Signature Hemoglobin A1C 12.7 (H) 4.3 - 5.6 [facility] Comment: Reference Range: 4.3 [...] Mellitus, Diabetes Care 2013; 36: Suppl. 1, W47-86 Est Avg Gluc 318 mg/dL [facility] Comment: eAG equivalents for HbA1c percentages: HbA1c(%) ?eAG(mg/dL) 6.0 ?126 6.5 ?140 7.0 ?154 7.5 ?169 8.0 ?183 8.5 ?197 9.0 ?212 9.5 ?226 10.0 ? 240 Limitations: The eAG calculation has not been validated on women, individuals below 18 years old and above 70 years old, and individuals with hemoglobinopathies. Additional resources are available on [facility] website: [email or web address]/[facility] STIL[facility]LLadacalc Sal BHARDWAJ, Mariposa Leos, Vito R, et al. ??Tr anslating the A1C assay into estimated average glucose values. ??Diabetes Care 2008:31(8):7777-1605. Specimen Anatomical Collection Method Collection Time Receive d Time (Source) Location / / Volume Laterality Blood specimen 07/09/2016 1:30 AM 017 1:42 (specimen) EDT AM EDT Resulting Agency Comment Spec In Lab Terell Munguia MD CHEMISTRY ORDERABLES Performing Organization Address City/State/Z[place] [address] (ABNORMAL) Basic Metabolic Panel (non-fasting) (07/09/2016 1:30 AM EDT) athologist Signature Glucose Lvl 270 (H) 65 - 199 [facility] mg/dL [facility] Comment: Diabetes: >=200 mg/dL plus symp toms BUN 9 (L) 10 - 20 mg/dL [facility] Creatinine 0.70 (L) 0.80 - 1.50 mg/dL [facility] Comment: Please note that the pediatric reference intervals supplied above were not validated at [facility]. Results from pediatri c patients should be interpreted in conjunction to the patient's age, height and muscle mass. Sodium 136 135 - 145 mmol/L [facility] Potassium 3.7 3.5 - 5.0 mmol/L [facility] Comment: Please note: ??Patients with WBC >100,00 0 may have falsely elevated Potassium levels. ??For accurate Potassium quantif ication in these patients send serum separator tube (gold top) for subsequent determinations. ??Contact the Clinical Chemistry Laboratory if there are any qu estions. Chloride 94 (L) 98 - 107 mmol/L [facility] CO2 25 22 - 31 mmol/L [facility] Anion Gap 17 (H) 5 - 15 mmol/L [facility] Calcium 8.9 8.5 - 10.5 mg/dL [facility] Estimated GFR >60 >=60 [facility] Comment: This estimated GFR (eGFR) [...] the following links into your internet browser. [email or web address] [email or web address] Specimen Anatomical Collection Method Collection Time Receive d Time (Source) Location / / Volume Laterality Blood specimen 07/09/2016 1:30 AM 017 1:42 (specimen) EDT AM EDT Resulting Agency Comment Spec In Lab Darrius Cotter MD CHEMISTRY ORDERABLES Performing Organization Address City/State/Z[place] [address] (ABNORMAL) Cardiac Enzymes (07/09/2016 1:30 AM EDT) P athologist Signature Troponin-T 9.50 (H) <=0.03 [facility] ng/mL [facility] Comment: result rechecked-bju 0.03 ng/mL: [...] consensus document of the Joint Society of Cardiology/[place] College o f [employer]iology Committee for the redefinition of myocardial infarction. ? ?Journal of the [place] College of Cardiology 2000; 36: 959-969] CK, Total 2,875 (H) 0 - 200 unit/L [facility] Comment: result rechecked: bju Specimen Anatomical Collection Method Collection Time Receive d Time (Source) Location / / Volume Laterality Blood specimen 07/09/2016 1:30 AM 017 1:42 (specimen) EDT AM EDT Resulting Agency Comment Spec In Lab Darrius Cotter MD CHEMISTRY ORDERABLES Performing Organization Address City/[facility]/Z[place] [address] (ABNORMAL) POCT Glucose (07/09/2016 12:54 AM EDT) P athologist Signature POC Glucose 270 (H) 65 - [address] [facility] mg/dL [facility] Comment: Supplemental ranges: <140 mg/dL before meals <180 mg/dL all other times of the day Specimen Anatomical Collection Method Collection Time Receive d Time (Source) Location / / Volume Laterality Blood specimen 07/09/2016 12:54 7 (specimen) AM EDT 12:54 AM EDT Terell Munguia MD POINT OF CARE TEST ORDERABLE S Performing Organization Address City/State/Z[place] [address] (ABNORMAL) POCT Glucose (07/08/2016 9:55 PM EDT) P athologist Signature POC Glucose 303 (H) 65 - [address] [facility] mg/dL [facility] Comment: Supplemental ranges: <140 mg/dL before meals <180 mg/dL all other times of the day Specimen Anatomical Collection Method Collection Time Receive d Time (Source) Location / / Volume Laterality Blood specimen 07/08/2016 9:55 PM 017 9:55 (specimen) EDT PM EDT Terell Munguia MD POINT OF CARE TEST ORDERABLE S Performing Organization Address City/[facility]/ZIP Code Phon e Number [address] (ABNORMAL) POCT Glucose (07/08/2016 8:07 PM EDT) P athologist Signature POC Glucose 281 (H) 65 - [address] [facility] mg/dL [facility] Comment: Supplemental ranges: <140 mg/dL before meals <180 mg/dL all other times of the day Specimen Anatomical Collection Method Collection Time Receive d Time (Source) Location / / Volume Laterality Blood specimen 07/08/2016 8:07 PM 017 8:07 (specimen) EDT PM EDT Terell Munguia MD POINT OF CARE TEST ORDERABLE S Performing Organization Address [facility]/ZIP [place] [address] EKG 12 Lead (07/08/2016 8:03 PM EDT) Component Value Ref Range Test Analysis Performed Pathologis t Method Time At Signature Ventricular rate 83 BPM MUSE SYSTEM Atrial Rate 83 BPM MUSE SYSTEM P-R Interval 148 ms MUSE SYSTEM QRS Duration 90 ms MUSE SYSTEM Q-T Interval 354 ms MUSE SYSTEM QTC Calculated 415 ms MUSE SYSTEM (Bezet) Calculated P [place] 70 degrees MUSE SYSTEM Calculated R [place] 36 degrees MUSE SYSTEM Calculated T [place] 55 degrees MUSE SYSTEM INTERPRETATION Normal sinus [...] Cotter MD ECG ORDERABLES Performing Organization Address City/[facility]/ZIP Code Phon e Number MUSE SYSTEM CARDIAC CATHETERIZATION (07/08/2016 7:50 PM EDT) Specimen (Source) Anatomical Location Collection Method / Collectio n Time Received Time / Laterality Volume Narrative CARDIOMAC SYSTEM - 07/08/2016 8:03 PM ED T ?[facility] ? Cardiac Cathete rization/Intervention Report ? Patient Name: Jamal, Christmalinaer G. ? Procedure Date: 07/08/2016 ? A #: [id number] ? Primary Physician: Nilda, Terell T ? Case #: [id number] ? File Name: [id number] ? Catheterization Order Number: [id number] ? [facility] ? Final Report [place], [place] ? Patient Name: ? Bertin Berry ? ID#: ?[id number] ? : ?1960 ? Procedure Date: ? July 08, 2016 ? Case #: ? [id number] ? Room: ? 5 ? Case Physician: [...] ?(50 pack years) and is still sm oking. The patient has ?hypercholesterolemia. He has di [...] presented with: non -STEMI (w/i 7 days). [place]ian ?Cardiovascular Society angina c lass was IV. [...] the proximal segment ? of the first [facility] branch (OM1) of the LCX. ?Right Coronary [...] revascularization. ?Thoracic aortography was perfor med in [place]ALLIS[place] projection to evalaute for PAD ?in a patient needing FOSS and R JOSE for CABG. ??The ascending thoracic ?aorta is normal in size. ??Ther e is a three vesel arch with an inominate, ?left common carotid and left vivar bclavian; all are free from significant ?disease.The LEAH and FOSS are w idley patent. ??The descending thoracic ?aorta is patent. [...] are severely diseased. ?The attending physician was zelalem cuevas for the entire procedure. ?Vianey Boles d the coronary angiography, left heart ?catheterization, access site angio graphy, left ventriculography, abdominal ?aortography and thoracic aortograp hy. ? Terell Munguia M.D. ? Electronically Signed by: Terell major M.D. ? Report Finalized: 07/08/2016 ??19:53 ? Report Last Ammended: 09/21/2016 ??14:42 ? Procedure Note Terell Munguia MD - 09/21/2016Formatt ing of this note might be different from the original. [facility] Cardiac Catheterization/Intervention Re port Patient Name: Bertin Berry Procedure Date: 07/08/2016 A #: [id number] Primary Physician: Terell Munguia Case #: [id number] File Name: [id number] Catheterization Order Number: [id number] [facility] Final Report [place], [place] Patient Name: Bertin Berry ID# : [id number] : 1960 Procedure Date: July 08, 2016 Case #: [id number] Room: 5 Case Physician: Terell Munguia M.D. [...] presented with: non-STEMI ( w/i 7 days). [place] [employer] angina class was IV. No [...] SYSTEM Beta Hydroxybutyrate (07/08/2016 5:40 PM EDT) P athologist Signature BOHB 0.24 0.00 - 0.30 [facility] mmol/L [facility] Comment: Reference range: ??0.00-0.30 mmo1/L, bas ed on an overnight fast. ??Children may be higher. Specimen Anatomical Collection Method Collection Time Receive d Time (Source) Location / / Volume Laterality Blood specimen Venous Draw / 07/08/2016 5:40 PM 2016 5:48 (specimen) Unknown EDT PM EDT Resulting Agency Comment Spec In Lab Sangita Robles MD CHEMISTRY ORDERABLES Performing Organization Address [facility] [place] [address] (ABNORMAL) APTT (07/08/2016 5:40 PM EDT) P athologist Signature PTT 36 (H) 25 - 35 sec [facility] Comment: The recommended therapeutic range for fu ll dose, unfractionated heparin at [facility] is 80 ? 114 seconds. The use [...] Robles MD HEMATOLOGY ORDERABLES Performing Organization Address [facility] [place] [address] (ABNORMAL) Differential, Automated (07/08/2016 5:40 PM EDT) Patholo gist Method Time Signature Neutrophils % 62.3 % [facility] Neutr Abs (ANC) 8.73 (H) 1.70 - [facility] [address] [facility] x10(3)/[facility] LABORATORY Lymphocytes % 31.0 % [facility] Lymphocytes Abs 4.4 (H) 0.9 - 3.2 [facility] x10(3)/[facility] LABORATORY Monocytes % 5.6 % [facility] Monocyte Abs 0.8 0.3 - 0.9 [facility] x10(3)/[facility] LABORATORY Eosinophils % 0.1 % [facility] Eosinophils Abs 0.0 0.0 - 0.4 [facility] x10(3)/[facility] LABORATORY Basophils % 0.4 % [facility] Basophils Abs 0.1 0.0 - 0.1 [facility] x10(3)/[facility] LABORATORY Immature Gran % 0.60 % [facility] Comment: Immature granulocytes(IG's)percentage an d absolute count will include metamyelocytes, myelocytes, and promyelo cytes. Blood smears from CBCs yielding IG's will be scanned manually for concor dance. If this scan disagrees with the automated IG or if promyelocytes are not ed, a manual differential will be performed. Madhuri Gran Abs 0.09 (H) 0.00 - 0.04 x10(3)/[facility] LABORATORY Specimen Anatomical Collection Method Collection Time Receive d Time (Source) Location / / Volume Laterality Blood specimen 07/08/2016 5:40 PM 017 5:45 (specimen) EDT PM EDT Resulting Agency Comment Spec In Lab Sangita Robles MD HEMATOLOGY ORDERABLES Performing Organization Address City/State/[place] [address] (ABNORMAL) Hemogram (07/08/2016 5:40 PM EDT) Analysis Performed At Patho logist Time Signature WBC 14.0 (H) 4.0 - 9.5 [facility] x10(3)/[facility] LABORATORY RBC 5.06 4.58 - [facility] [address] [facility] x10(6)/[facility] LABORATORY Hemoglobin 15.1 13.7 - [facility] 16.5 gm/dL [facility] Hematocrit 44.3 40.5 - [facility] 48.5 % [facility] MCV 87.5 82.9 - [facility] 93.1 fL [facility] MCH 29.8 27.5 - [facility] 32.1 pg [facility] MCHC 34.1 32.0 - [facility] 35.7 gm/dL [facility] Platelets 217 145 - 357 A[facility] OREILL[facility] x10(3)/[facility] LABORATORY RDWSD 42.1 36.0 - [facility] 45.0 [facility] LABORATORY RDWCV 13.2 11.4 - A[facility] O[place] 13.8 % [facility] MPV 11.6 7.6 - 12.9 ANA AFIA [facility] LABORATORY nRBC % Auto 0.0 % [facility] nRBC Abs Auto 0.000 0.000 - [facility] [place] [address] [facility] x10(3)/[facility] LABORATORY Specimen Anatomical Collection Method Collection Time Receive d Time (Source) Location / / Volume Laterality Blood specimen 07/08/2016 5:40 PM 017 5:45 (specimen) EDT PM EDT Resulting Agency Comment Spec In Lab Sangita Robles MD HEMATOLOGY ORDERABLES Performing Organization Address City/[facility]/ZIP Code Phon e Number [address] (ABNORMAL) TSH (07/08/2016 5:40 PM EDT) P athologist Signature TSH 5.02 (H) 0.27 - 4.20 ANA AFIA mcIU/mL [facility] Specimen Anatomical Collection Method Collection Time Receive d Time (Source) Location / / Volume Laterality Blood specimen 07/08/2016 5:40 PM 017 5:45 (specimen) EDT PM EDT Resulting Agency Comment Spec In Lab Sangita Robles MD CHEMISTRY ORDERABLES Performing Organization Address City/[facility]/ZIP Code Phon e Number [address] (ABNORMAL) Hepatic Function Panel (07/08/2016 5:40 PM EDT) P athologist Signature Total Protein 7.7 6.1 - 8.0 [facility] [place] gm/dL [facility] Albumin 4.4 3.2 - 5.2 ANA DURANTAFIA gm/dL [facility] AST 247 (H) 0 - 39 ANA AFIA unit/L [facility] ALT 41 0 - 55 ANA AFIA unit/L [facility] Alk Phos 112 40 - 120 [facility] Total 0.3 0.2 - 1.3 [facility] Bilirubin mg/dL [facility] Bili, Direct 0.1 0.0 - 0.3 [facility] mg/dL [facility] Specimen Anatomical Collection Method Collection Time Receive d Time (Source) Location / / Volume Laterality Blood specimen 07/08/2016 5:40 PM 017 5:45 (specimen) EDT PM EDT Resulting Agency Comment Spec In Lab Sangita Robles MD CHEMISTRY ORDERABLES Performing Organization Address City/[facility]/ZIP [place] [address] Prothrombin Time (07/08/2016 5:40 PM EDT) P athologist Signature PT 12.9 12.0 - 15.0 [facility] Comment: An INR <2.0 indicates [...] linical circumstances. INR 0.9 0.9 - 1.1 [facility] Specimen Anatomical Collection Method Collection Time Receive d Time (Source) Location / / Volume Laterality Blood specimen 07/08/2016 5:40 PM 017 5:45 (specimen) EDT PM EDT Resulting Agency Comment Spec In Lab Sangita Robles MD HEMATOLOGY ORDERABLES Performing Organization Address City/State/[place]IP [place] [address] (ABNORMAL) Basic Metabolic Panel (non-fasting) (07/08/2016 5:40 PM EDT) P athologist Signature Glucose Lvl 419 (H) 65 - 199 [facility] mg/dL [facility] Comment: Diabetes: >=200 mg/dL plus symp toms BUN 10 10 - 20 mg/dL [facility] Creatinine 0.77 (L) 0.80 - 1.50 mg/dL [facility] Comment: Please note that the pediatric reference intervals supplied above were not validated at [facility]. Results from pediatri c patients should be interpreted in conjunction to the patient's age, height and muscle mass. Sodium 133 (L) 135 - 145 mmol/L [facility] Comment: rechecked by ga Potassium 4.6 3.5 - 5.0 mmol/L [facility] Comment: Please note: ??Patients with WBC >100,00 0 may have falsely elevated Potassium levels. ??For accurate Potassium quantif ication in these patients send serum separator tube (gold top) for subsequent determinations. ??Contact the Clinical Chemistry Laboratory if there are any qu estions. Chloride 91 (L) 98 - 107 mmol/L [facility] CO2 21 (L) 22 - 31 mmol/L [facility] Anion Gap 21 (H) 5 - 15 mmol/L [facility] Calcium 9.8 8.5 - 10.5 mg/dL [facility] Estimated GFR >60 >=60 [facility] Comment: This estimated GFR (eGFR) [...] the following links into your internet browser. [email or web address] [email or web address] Specimen Anatomical Collection Method Collection Time Receive d Time (Source) Location / / Volume Laterality Blood specimen 07/08/2016 5:40 PM 017 5:45 (specimen) EDT PM EDT Resulting Agency Comment Spec In Lab Sangita Robles MD CHEMISTRY ORDERABLES Performing Organization Address City/State/[place] [address] (ABNORMAL) Cardiac Enzymes (07/08/2016 5:40 PM EDT) P athologist Signature Troponin-T 7.41 (H) <=0.03 [facility] ng/mL [facility] Comment: Called by: humberto, Read back by: obn 18:39, Date/Time:07/08/16 18:38. 0.03 ng/mL: Represents the [...] consensus document of the Joint Society of Cardiology/[employer] Committee for the redefinition of myocardial infarction. ? ?Journal of the [place] [employer] 2000; 36: 959-969] CK, Total 3,402 (H) 0 - 200 unit/L [facility] Comment: rechecked by humberto Specimen Anatomical Collection Method Collection Time Receive d Time (Source) Location / / Volume Laterality Blood specimen 07/08/2016 5:40 PM 017 5:45 (specimen) EDT PM EDT Resulting Agency Comment Spec In Lab Sangita Robles MD CHEMISTRY ORDERABLES Performing Organization Address City/State/ZIP [place] [address] EKG 12 Lead (07/08/2016 5:35 PM EDT) Component Value Ref Range Test Analysis Performed Pathologis t Method Time At Signature Ventricular rate 77 BPM MUSE SYSTEM Atrial Rate 77 BPM MUSE SYSTEM P-R Interval 150 ms MUSE SYSTEM QRS Duration 88 ms MUSE SYSTEM Q-T Interval 350 ms MUSE SYSTEM QTC Calculated 396 ms MUSE SYSTEM (Bezet) Calculated P [place] 66 degrees MUSE SYSTEM Calculated R [place] 12 degrees MUSE SYSTEM Calculated T [place] 58 degrees MUSE SYSTEM INTERPRETATION Normal sinus [...] Time Received Time / Laterality Volume Narrative [facility] - 07/08/2016 4:45 PM EDT This exam is for storage only and is aut o-finalizing. Griffin Irvin MD IMG FILM LIBRARY ORDERABLES Performing Organization Address City/State/ZIP Code Phon e Number RAD [place], [place] documented in this encounter Visit Diagnoses Not on filedocumented in this encounter Admitting Diagnoses Diagnosis NSTEMI (non-ST elevated myocardial infar ction) Acute myocardial infarction, subendocard ial infarction, episode of care unspecified documented in this encounter Administered Medications Inactive Administered Medications - up to 3 most recent administrations Medication Order MAR Action Action Date Dose Rate Site acetaminophen (TYLENOL) tablet Given 07/16/2016 6:16 AM EDT 1,00 0 mg 1,000 mg 1,000 mg, Oral, EVERY 6 HOURS SCHEDULED, First dose (after last modification) on Tue07/13/16 at 1300, Until Discontinued, For pain when taking by mouth , Routine Given 07/16/2016 12:00 AM EDT 1,000 mg Given 07/15/2016 5:19 PM EDT 1,000 mg albuterol (PROVENTIL) nebulizer solution 2.5 mg 2.5 [...] 07/14/2016 8:38 AM EDT 81 mg aspirin suppository 300 mg 300 mg, Rectal, DAILY, First dose on Tue07/13/16 at 0900, Until Discontinued, Start on post-op day 1 in the AM, Routine atorvastatin (LIPITOR) tablet 80 mg Given [...] 0628, Until Tue07/16/16 at 1423, Pain, Routine calcium chloride 100 mg/mL (10 %) inject ion Given 07/12/2016 3:33 PM EDT 1 g ONCE PRN, Starting on Tue07/12/16 at 1533, Until Tue07/15/16 at 0638, Intra-Operative (Intra-Procedure), Routine cardioplegic solution (PLEGISOL) induction Given 07/12 12:53 PM EDT 300 mLs solution ONCE PRN, Starting on Tue07/12/16 at 1253, Until Tue07/15/16 at 0638, Intra-Operative (Intra-Procedure) cardioplegic solution (PLEGISOL) maintenance Given 3:15 PM EDT 100 mLs solution ONCE PRN, Starting on Tue07/12/16 at 1423, Until Tue07/15/16 at 0638, Intra-Operative (Intra-Procedure) Given 07/12/2016 2:57 PM EDT 100 mLs Given 07/12/2016 2:49 PM EDT 100 mLs cardioplegic solution (PLEGISOL) reperfusion Given 3:33 PM EDT 100 mLs solution ONCE PRN, Starting on Tue07/12/16 at 1533, Until Tue07/15/16 at 0638, Intra-Operative (Intra-Procedure) cefUROXime (ZINACEF) injection 1.5 g Given 07/12/2016 1:53 PM EDT 1 g ONCE PRN, Starting on Tue07/12/16 at 1353, Until Tue07/16/16 at 1423, Intra-Operative (Intra-Procedure), Routine chlorhexidine (PERIDEX) 0.12 % oral solution Given 9:17 PM EDT 15 mLs 15 mL 15 mL, Oral, EVERY 12 HOURS SCHEDULED (2 times per day), First dose on Tue07/12/16 at 2100, Until Discontinued, [place] teeth, Routine Given 07/15/2016 9:00 AM EDT [...] the duration of the active insulin., Routine electrolyte (pH 7.4) (NORMOSOL-R; New Bag 07/12/2016 3:52 PM EDT 4 00 mLs PLASMALYTE-A) injection CONTINUOUS PRN, Starting on Tue07/12/16 at 1353, Until Tue07/12/16 at 1712, Intra-Operative (Intra-Procedure) New Bag 07/12/2016 1:53 PM EDT 1.6 L furosemide (LASIX) injection 20 mg Given 07/15/2016 5:27 PM EDT 20 mg 20 mg, Intravenous, 2 TIMES DAILY, First dose on Tue07/13/16 at 0900, Until Discontinued Given 07/15/2016 9:26 AM EDT 20 mg Given 07/14/2016 6:06 PM EDT 20 mg gentamicin (GARAMYCIN) Given 07/12/2016 2:48 PM EDT 160 mg 19- Surgical Site injection ONCE PRN, Starting on Tue07/12/16 at 1448, Until Tue07/14/16 at 0611, Intra-Operative (Intra-Procedure), Routine glipiZIDE (GLUCOTROL) tablet 20 mg Given 07/16/2016 [...] the active insulin. , Routine heparin (porcine) injection Given 07/12/2016 3:34 PM EDT 44,000 Units ONCE PRN, Starting on Tue07/12/16 at 1534, Until Tue07/15/16 at 0639, Intra-Operative (Intra-Procedure), Routine insulin lispro (humaLOG) VIAL injection 2-8 Given [...] 9:16 PM EDT 4 Units insulin lispro protamine-insulin lispro Given 07/15/2016 5:26 PM EDT 15 Units 75/25 (humaLOG MIX 75/25) injection 15 Units 15 Units, Subcutaneous, DAILY BEFORE DINNER, First dose on Tue07/15/16 at 1630, Until Discontinued, Routine insulin lispro protamine-insulin lispro Given 07/16/2016 7:38 AM EDT 25 Units 75/25 (humaLOG MIX 75/25) injection 25 Units 25 Units, Subcutaneous, DAILY BEFORE BREAKFAST, First dose (after last reorder) on Tue07/16/16 at 0800, Until Discontinued, Routine isosorbide mononitrate (IMDUR) CR tablet 60 mg Given 07/16/2016 6:16 AM EDT 60 mg 60 mg, Oral, EVERY MORNING, First dose on Tue07/14/16 at 0845, Until Discontinued, DO NOT CRUSH OR OPEN, STAT Given 07/15/2016 6:27 AM EDT 60 mg Given 07/14/2016 8:39 AM EDT 60 mg lidocaine (PF) (XYLOCAINE) 100 mg/5 mL (2 %) Given 3:34 PM EDT 200 mg injection ONCE PRN, Starting on Tue07/12/16 at 1534, Until Tue07/16/16 at 1423, Intra-Operative (Intra-Procedure), Routine magnesium sulfate 4 mEq/mL (50 %) inject ion Given 07/12/2016 3:34 PM EDT 2 g ONCE PRN, Starting on Tue07/12/16 at 1534, Until Tue07/15/16 at 0639, Intra-Operative (Intra-Procedure), Routine mannitol (50 grams and over) 100 g/500 mL New Bag 07/12/2016 3:15 PM EDT 40 g (20%) infusion CONTINUOUS PRN, Starting on Tue07/12/16 at 1515, Until Tue07/12/16 at 1712, Intra-Operative (Intra-Procedure) metFORMIN (GLUCOPHAGE) tablet 500 mg Given 07/16/2016 7:37 AM EDT 500 mg 500 mg, Oral, 2 TIMES DAILY WITH MEALS, First dose on Tue07/15/16 at 0800, Until Discontinued, Routine Given 07/15/2016 5:20 PM EDT 500 mg Given 07/15/2016 7:41 AM EDT 500 mg meTOPROLOL tartrate (LOPRESSOR) tablet 1 00 mg 100 mg, Oral, EVERY 12 HOURS SCHEDULED ( 2 times per day), First dose (after last modification) on Tue07/16/16 at 2100, Until Discontinu ed, Routine nicotine (NICODERM CQ) 21 Patch Applied 07/16/2016 [...] Discontinued, Verify nicotine 21 mg/24 hr patch oxyCODONE (ROXICODONE) immediate release tablet Given 07/15/2016 [...] Given 07/14/2016 8:38 AM EDT 40 mg senna-docusate (PERICOLACE) 8.6-50 mg per Given 2016 [...] Given 07/15/2016 12:53 PM EDT 5 mLs vancomycin (VANCOCIN) injection Given 07/12/2016 2:48 PM EDT 1 g 19- S urgical Site ONCE PRN, Starting on Tue07/12/16 at 1448, Until 07/13/16 at 0612, Intra-Operative (Intra-Procedure), Routine verapamil (ISOPTIN) injection Given 07/12/2016 2:47 PM EDT 5 mg 19- S urgical Site ONCE PRN, Starting on Tue07/12/16 at 1447, Until Holly 07/15/16 at 0640, Administer over 2 Minutes, Intra-Operative (Intra-Procedure) documented in this encounter Active and Recently [...] Fox RN) 0000 (Given - Provider: Sarah Tolentino, HEAVEN)0616 (Given - Provider: Sarah Tolentino RN)1200 (Due) 1,000 mg, Oral, EVERY 6 HOURS SCHEDULED, First dose on Tue07/13/16 at 1300, Until Discontinued, For pain when taking by mouth , Routine 1812 (Given - Provider: Madai Marie RN)2358 (Given [...] AM, Routine atorvastatin (LIPITOR) tablet 80 mg 181 (Given - Prov ider: Madai Marie RN) 1719 (Given - Provider: Mary Fox RN) 80 mg, Oral, EVERY EVENING, First dose o n Tue07/09/16 at 1700, Until Discontinued, Routine chlorhexidine (PERIDEX) 0.12 % oral solution 15 mL 083 7 (Given - Provider: Maral Kinney RN)2013 (Given - Provider: Luisa Harris RN) 0900 (Given - Provider: Mary Fox RN)211 (Given - Provider: Sarah Tolentino RN) 0900 (Not Given - Provider: Mary Fox RN - Reason: Medication not available) 15 mL, Oral, EVERY 12 HOURS SCHEDULED (2 times per day), First dose on Tue07/12/16 at 2100, Until Discontinued, [place] teeth, Routine furosemide (LASIX) injection 20 mg 0839 (Given - Provi almita: Maral Kinney RN)1806 (Given - Provider: Madai Marie RN) 0926 (Given - Provider: Mary Fox RN)1727 (Given - Provider: Mary Fox RN) 0900 (Not Given - Provider: Mary Fox RN - Reason: Per MD Order - Comment: Jasmine Boston NP) 20 mg, Intravenous, 2 TIMES DAILY, First dose on Tue07/13/16 at 0900, Until Discontinued furosemide (LASIX) injection 20 mg (COMPLETED) 0500 (G iven - Provider: Hannah Gomez RN) 20 mg, Intravenous, ONCE, 1 dose, Tue07/14/16 at 0345 glipiZIDE (GLUCOTROL) tablet 20 mg 0926 (Given - Provider: Mary Fox RN) 0737 [...] parameters not met)2011 (Given - Provider: Luisa Harris RN) 0-9 Units, Subcutaneous, 3 TIMES DAILY W ITH MEALS, First dose on Tue07/13/16 at 1700, Until Discontinued, Give 1 unit for every 8 grams carbohydrate Hold if not eating, Routine insulin lispro (humaLOG) VIAL injection 2-8 Units (CANCELED) 07 (Given - Provider: Mary Fox RN)1144 (Given [...] Routine insulin lispro (humaLOG) VIAL injection 2-8 Units(Linked Emmanuel up 2) 1725 (Given - Provider: Mary Fox RN)2116 (Given - Provider: Sarah Tolentino RN) 0000 (Not Given - Provider: Sarah Tolentino RN - Reason: Order parameters not met)0403 (Given - Provider: Sarah Tolentino, RN)0738 (Given - Provider: Mary Fox RN) 2-8 Units, Subcutaneous, EVERY 4 HOURS S CHEDULED, First dose on Tue07/15/16 at 1600, Until Discontinued, CORRECTION [...] DAILY BEFORE DIN NER, First dose on Tue07/15/16 at 1630, Until Discontinued, Routine insulin lispro protamine-insulin lispro 75/25 (humaLOG MIX 75/25) injection 25 Units (COMPLETED) 1145 (Given - Provider: Jose Patton) 25 Units, Subcutaneous, ONCE, 1 dose, Tue07/15/16 at 1045, STAT insulin lispro protamine-insulin [...] Sto 0546 (Rate/Dose Change - Provider: Hannah Gomez RN - Comment: BG 277)0600 (Rate/Dose Verify - [...] previo 0739 (Rate/Dose Change - Provider: Maral Kinney RN)0800 (Rate/Dose Verify - Provider: Maral Kinney RN)1000 (Rate/Dose Verify - Provider: Maral Kinney RN)1044 (Rate/Dose Change - Provider: Maral Kinney RN) us rate had been 0.5 unit/hour, recheck every hour and when BG greater than 100 and higher than last test restart at 0.5 unit/hour. Current BG 80 - 139 - If BG dropped 10 mg/dL or more since last catrachita 1200 (Rate/Dose Change - Provider: Maral Kinney RN)1400 (Rate/Dose Change - Provider: Maral Kinney RN)1500 (Rate/Dose Change - Provider: Maral Kinney RN)1556 (Rate/Dose Change - Provider: Maral Kinney RN) t, decrease rate by 50% and re-check in 30 minutes. Otherwise, decrease rate by 0.5 units/hour. Current BG 140 - 180 - If BG dropped 50 mg/dL or more since last test, decrease rate by 1 unit/hour. Ot 1816 (New Bag - Provider: Madai Marie RN)2020 (Rate/Dose Change - Provider: Luisa Harris RN)2107 (Rate/Dose Change - Provider: Luisa Harris, HEAVEN)2202 (Rate/Dose Change - Provider: Luisa Harris, HEAVEN) herwise, maintain same rate. Current BG 181 - 220 - If BG is lower than last test, maintain same rate. Otherwise, increase rate by 0.5 units/hour. Current BG 221 - 250 - If BG dropped 30 mg/dL or 223 (Rate/Dose Change - Provider: Luisa Harris RN)2302 (Rate/Dose Change - Provider: Luisa Harris, HEAVEN) more since last test, maintain same rate [...] STAT LORazepam (ATIVAN) injection 0.5 mg (COMPLETED) 45 ( Given - Provider: Hannah Gomez RN) 0.5 mg, Intravenous, ONCE, 1 dose, Tue07/14/16 [...] (SOLU-Medrol) 40 mg/mL injection 60 mg (CANCELED) 0836 (Given - Provider: Maral Kinney RN) 60 mg, Intravenous, 2 TIMES DAILY, First dose on Tue07/13/16 at 2315, Until Discontinued methylPREDNISolone sodium succinate (PF) (SOLU-Medrol) 40 mg/mL injection 60 mg (COMPLETED) 2012 (Given - Provider: Luisa Harris RN) 60 mg, Intravenous, 2 TIMES DAILY, 1 dose, First dose on 06/24 at 2100 meTOPROLOL (LOPRESSOR) injection 5 mg (CANCELED) 0515 (Given - Provider: Hannah Gomez RN)1115 (Not Given - Provider: Maral Kinney RN - Reason: Medication Discontinued) 5 mg, Intravenous, EVERY 6 HOURS, First dose on Tue07/13/16 at 2315, Until Discontinued meTOPROLOL (LOPRESSOR) tablet 12.5 mg (COMPLETED) 07 (Given - Provider: Mary Fox RN) 12.5 mg, Oral, ONCE, 1 dose, Tue07/15/16 at 0700, Routine meTOPROLOL (LOPRESSOR) tablet 37.5 mg (CANCELED) 1212 (Given - Provider: Maral Kinney RN) 37.5 mg, Oral, EVERY 8 HOURS SCHEDULED, First dose on Tue07/14/16 at 1230, Until Discontinued, Routine meTOPROLOL (LOPRESSOR) tablet 37.5 mg (CANCELED) 1853 (Given - Provider: Madai Marie RN)2358 (Given [...] (Patch Applied - Provider: Mary Fox RN) 09 (Patch Applied - Provider: Mary gutierrez RN) 21 mg, Transdermal, DAILY, First dose on Tue07/14/16 at 1045, Until Discontinued, Routine nicotine (NICODERM CQ) 21 mg/24 hr patch Patch Removal(Linke d Group 3) 899 (Patch Removed - Provider: Mary Fox RN) 09 (Patch Removed - Provider: Mary Fox RN) Transdermal, DAILY, First dose on Tue at 0900, Until Discontinued, Remove nicotine 21 mg/24 hr patch nicotine (NICODERM CQ) 21 mg/24 hr patch Patch Verific ation(Linked Group 3) 2099 (Patch (dose and location) verified - Provider: Luisa Harris RN) 09 (Patch (dose and location) verified - Provider: Mary Fox RN)2099 (Patch (dose and location) verified - Provider: Sarah Tolentino RN) 09 (Patch (dose and location) verified - Provider: Mary Fox RN) Transdermal, 2 TIMES DAILY, First dose o n Tue07/14/16 at 2100, Until Discontinued, Verify nicotine 21 mg/24 hr patch pantoprazole (PROTONIX) injection 40 mg(Linked Group 4 ) 0869 (See Alternative - Provider: Maral Kinney RN) [...] (K-DUR/KLOR-CON) extended release tablet 40 mEq (COMPLETED) 924 (Given - Provider: Mary Fox RN) 40 mEq, Oral, ONCE, 1 dose, [facility] 07/15/16 at 0945, 20 mEq tablet [...] Tolentino, HEAVEN) 0618 (Given - Provider: Sarah garcia RN) 5 mL, Intravenous, EVERY 8 HOURS, [...] mL/hr), Intravenous, at 0-60 mL/hr, CONTINUOUS, Starting Tue07/12/16 at 1730, Until Tue07/14/16 at 1023, For hypertension. Titrate to keep systolic blood pressure less than 120 mmHg. 0236 (Rate/Dose Change - Provider: Hannah Gomez RN)0300 (Rate/Dose Verify - Provider: Hannah Gomez RN)0400 (Rate/Dose Verify - Provider: Hannah Gomez RN)0407 (Rate/Dose Change - Provider: Hannah Gomez RN) Initiate at 25 mcg/min. Adjust by 25 mc g/min every 5 minutes. Dose not to exceed 200 mcg/minute., Routine 0500 (Rate/Dose Verify - Provider: Hannah Gomez RN)0600 (Rate/Dose Verify - Provider: Hannah Gomez RN)0727 (Paused - Provider: Maral Kinney RN - Comment: stopped per [place])0816 (Rate/Dose Change - Provider: Maral Kinney RN) 0839 (Stopped - Provider: Evette Kinney RN)1000 (Rate/Dose Verify - Provider: Maral Kinney RN) sodium chloride 0.9% infusion (CANCELED) 0100 (Rate/Do se Change - Provider: Hannah Gomez RN)0200 (Rate/Dose Verify - Provider: Hannah Gomez RN - Comment: (Action automatically changed))0300 (Rate/Dose Verify - Provider: Hannah Gomez RN) 0-500 mL/hr, at 0-500 mL/hr, Intravenous , CONTINUOUS, Starting 07/12/16 at 1730, Until 07/14/16 at 1023, Bolus 250 mL every 5 minutes as needed for volume replacement to maintain cardiac index gre 0400 (Rate/Dose Verify - Provider: Hannah Gomez, HEAVEN)0500 (Rate/Dose Verify - Provider: Hannah Gomez, RN)0600 (Rate/Dose Verify - Provider: Hannah Gomez RN)0800 (Rate/Dose Verify - Provider: Maral Kinney, RN) ater than or equal to 2.0 L/min/M2. Maxi mum volume 2 L. Call powerhouse engineer for additional fluid orders: pager #[phone]. 6109 (Rate/Dose Verify - Provider: Maral Kinney RN) [...] 0546 (Bolus from Bag - Provider: Hannah oGmez RN)1556 (Bolus from Bag - Provider: Maral Kinney RN) 0-16 Units, Intravenous, PER INSULIN PRO [...] PRN, St arting 07/12/16 at 1712, Until Tue07/16/16 at 1423, Nausea oxyCODONE (ROXICODONE) immediate release tablet 5-15 mg 2133 (Given - Provider: Sarah Tolentino RN) 5-15 mg, Oral, EVERY 4 HOURS PRN, Starti ng Mon 07/12/16 at 1712, Until Tue07/16/16 at 1423, Pain, [...] (CANCELED) 0851 (G iven - Provider: Maral Kinney RN) 20 mEq, Intravenous, EVERY 1 HOUR [...] Group 2: POCT Fingerstick Glucose (CANCELED) Routine, EVERY 4 HOURS, First occurrence on Tue07/15/16 at 1600, Until Specified
Consider choosing FOUR TIMES A DAY BEFORE MEALS AND AT BEDTIME as frequency for: Patients who have a good hypoglycemia awareness. And insulin lispro (humaLOG) VIAL injection 2-8 UnitsJump to med 2-8 Units, Subcutaneous, EVERY 4 HOURS S CHEDULED, First dose on Tue07/15/16 at 1600, Until Discontinued
CORRECTION BOLUS Moderate BG 140 - 160&nbsp ; Give 2 units BG 161 - 200 Give 4 units BG 201 - 240 Give 6 units B G greater than 240, give 8 units and rec heck BG in 2 hours. If BG remains greater than 240, repeat 8 units (no more than three times) & call for new basal insulin orders. If l ess than 240 after two hours, give no in sulin and resume prior schedule.
Routine Group 3: [...]
Routine documented in this encounter Care Teams Apprentice Electrician Relationship Specialty Start Date End Date Zay Montilla MD PCP - General Family Medicine 01/31/15 07/20/16 [address] [place] [address] documented as of this encounter
--- OUTSIDE RECORDS SUMMARY | 2021-10-30 01:57 | XMS_ITS | Encounter Summary ---
:1960 [place] [address] Care Team Providers Name Role Phone Zay Montilla MD Primary Care Provider Reason for Visit Auth/Cert Specialty Diagnoses / Procedures Referred By Contact Refer red To Contact Diagnoses Pain Chest pain, unspecified type NSTEMI (non-ST elevated myocardial infarction) Procedures CARDIAC CATHETERIZATION Referral ID Status Reason Start Date Expiration Date Visits Requ ested Visits Authorized [id number] 1 1 Encounter Details Date Type Department Care Team Description 07/09/2016 Hospital Encounter Non[place] [address] Social History Tobacco Use Types Packs/Day Years Used Date Current Every Day Smoker 1 40 Comments: I've tried multiple times Sex Assigned at Date Recorded Not on [...] daily as needed mg Tablet for Constipation. mupirocin (BACTROBAN) Apply topically 3 22 g 0 017 07/16/2016 2 % Ointment times daily. Begin up to 5 days pre-op (apply a small amount to each nostril twice daily- prescription given).. aspirin 325 mg Take 325 mg by mouth 0 07/16/2016 Tablet, Delayed daily. Release (E.C.) nitroGLYcerin Place 0.4 mg under the 0 07/16/2016 (NITROSTAT) 0.4 mg tongue every 5 minutes Tablet, Sublingual as needed for Chest pain. atorvastatin Take 40 mg by mouth 0 (LIPITOR) 40 mg daily. Tablet nabumetone (RELAFEN) Take 750 mg by mouth 2 0 07/16/2016 750 mg Tablet times daily. buPROPion (WELLBUTRIN Take 150 mg by mouth 2 0 07/20/2018 SR OR ZYBAN) 150 mg times daily. Tablet Sustained Release diclofenac (VOLTAREN) Take 75 mg by mouth 2 0 07/16/2016 75 mg Tablet, Delayed times daily. Release (E.C.) glipiZIDE (GLUCOTROL) Take 20 mg by mouth 0 07/25/2019 10 mg Tablet daily. metFORMIN Take 500 mg by mouth 2 0 (GLUCOPHAGE) 500 mg times daily (with Tablet meals). omeprazole (PRILOSEC) Take 40 mg by mouth 0 07/25/2019 40 mg Capsule, daily. Delayed Release(E.C.) lisinopril Take 10 mg by mouth 0 07/16 (PRINIVIL;ZESTRIL) 10 daily. mg Tablet acetaminophen-codeine Take 1 tablet by mouth 0 07/16/2016 (TYLENOL #3) 300-30 every 6 hours as mg Tablet needed for Pain. documented as of this encounter Plan of Treatment Not on filedocumented as of this encounter Procedures Procedure Name Priority Date/Time Associated Comments Diagnosis BLUE TUBE HOLD Routine 07/09/2016 7:58 Results fo r this PM EDT procedure are i n the results section. APTT Routine 07/09/2016 7:58 Results for this PM EDT procedure are i n the results section. ECHOCARDIOGRAM COMPLETE Routine 07/09/2016 9:46 Chest pain, R esults for this AM EDT unspecified type procedure a re in the results section. documented in this encounter Results (ABNORMAL) APTT (07/09/2016 7:58 PM EDT) athologist Signature PTT 45 (H) 25 - [address] [facility] Comment: The recommended therapeutic range for fu ll dose, unfractionated heparin at [facility] is 80 ? 114 seconds. The use of the anti-Xa (heparin) level rather than the PTT is recommended for monitoring anticoagul ation intensity in critically ill patients receiving unfractionated hepari n by continuous IV infusion. Specimen Anatomical Collection Method Collection Time Receive d Time (Source) Location / / Volume Laterality Blood specimen No Charge / 07/09/2016 7:58 PM 017 7:58 (specimen) Unknown EDT PM EDT Resulting Agency Comment Spec In Lab Darrius Cotter MD HEMATOLOGY ORDERABLES Performing Organization Address City/State/[place] [address] Blue Tube HOLD (07/09/2016 7:58 PM EDT) athologist Signature Blue Hold Sample in [facility]. [facility] Specimen Anatomical Collection Method Collection Time Receive d Time (Source) Location / / Volume Laterality Blood specimen No Charge / 07/09/2016 7:58 PM 017 7:58 (specimen) Unknown EDT PM EDT Darrius Cotter MD HEMATOLOGY ORDERABLES Performing Organization Address City/State/[place] [address] documented in this encounter Visit Diagnoses Not on filedocumented in this encounter Care Teams Meat Blender Relationship Specialty Start Date End Date Zay Mnotilla MD PCP - General Family Medicine 01/31/15 07/20/16 [address] [place] [address] documented as of this encounter
--- OUTSIDE RECORDS SUMMARY | 2021-10-30 01:58 | XMS_ITS | Encounter Summary ---
:1960 Author Organization [facility] [place] [address] Care Team Providers Name Role Phone Zay Montilla MD Primary Care Provider Encounter Details Date Type Department Care Team Description 10/29/2015 Orders Only Vascular Surgery at Fer[facility] Tiffanytristan WALKER (peripheral [facility], RN artery disease) [place] [address] Social History Tobacco Use Types Packs/Day Years Used Date Current Every Day Smoker 1 Sex Assigned at Date Recorded Not on file documented as of this encounter Plan of Treatment Not on filedocumented as of this encounter Procedures Procedure Name Priority Date/Time Associated Diagnosis Comme nts TRANSESOPHAGEAL Routine 08/06/2016 Results for this ECHOCARDIOGRAM ([place]) procedu re are in the results section. documented in this encounter Results REYMUNDO, legs, multiple levels (12/14/2016 10:31 AM EDT) Component Value Ref Test Analysis Performed At [facility] Range Method Time Signature VB Text Department: Vascular Surgery Lab [facility] Report Patient: [id number] (BERTIN LORENZO) CPT: 24208 ICD10: I73.9 Referring Physician: NARESH FERNANDEZ ?? [...] Address City/State/ZIP Code Phon e Number [place] Transesophageal Echocardiogram ([place]) (08/06/2016) Specimen (Source) Anatomical Location Collection Method / Collectio n Time Received Time / Laterality Volume 08/06/2016 [facility] - 08/06/2016 7:58 AM EDT Amended Report Procedure: ?Transesophageal Echocard iogram Patient: ?MAURA ZAMUDIORAMY ?? (Age): 1960(55y) Med Rec#: ? [id number] ?Sex: ?M ? Site Loc: ? [facility] ?Ht / Wt: ??(cm)/ (kg) ? Pt. Loc: ?OR ? Study Date: ?? 07/12/2016 ?Pt. Type: Tape: ? Reading: Charlie Hurley ([id number]) Diagnosis: SUMMARY: 1. [facility] for the diagnosis and evaluation of hemodynamics , overall cardiac function, and valvular pathologies as indicated. BROOKLYNN p gia was passed atraumatically after induction and removed in a similar fashion before emergence. 2. Pre-Bypass: Normal LV function was se en. ??There were no RWMA's. Trace MR noted, no AV pathhology, Trace PI also seen. ??No PFO. 3. Post-Bypass: Global LV and RV functio n is improved. LVEF is 65% although this could be due to underfilli ng. There is no change in valvular pathologies. There is no eviden ce of aortic dissection post decannulation. Remainder of the exam is unchanged from prior. Findings ? : Left Ventricle: ? The left ventricul ar chamber size is normal. ?There is normal global left ventri cular systolic function. ??Ejection fraction is estimated to be 65%. Left Atrium: ? The left atrium is no rmal in size. Right Ventricle: ? The right ventric le is normal in size. Aortic Valve: ? The aortic valve str ucture is normal. ?There is no evidence of aortic osman ve thickening. ?There is no evidence of aortic osman ve stenosis. ?There is no evidence of aortic reg urgitation. Mitral Valve: ? The mitral valve gretel flets appear normal. ?The mitral valve leaflets do not a ppear thickened. ?There is no evidence of mitral keyonna nosis. ?There is trace mitral regurgitatio n present. Tricuspid Valve: ? The tricuspid osman ve leaflets are morphologically normal. Pulmonic Valve: ? The pulmonic valve appears normal. Aorta: ? There is evidence of grade 3 (atheroma <= 5mm) atheromatous disease of the ascending aorta. ?There is evidence of grade 4 (athe alondra > 5mm) atheromatous disease of the aortic arch. ?There is evidence of grade 3 (athe alondra <= 5mm) atheromatous disease of the descending thoracic aorta. Wall Motion: Segment Name ?Rest ? Base-Anteroseptal ?? Normal ? Base-Anterior ? Normal ? Base-Anterolateral ??Normal ? Base-Posterolateral Normal ? Base-Inferior ? Normal ? Base-Inferoseptal ?? Normal ? Mid-Anteroseptal ?Normal ? Mid-Anterior ?Normal ? Mid-Anterolateral ?? Normal ? Mid-Posterolateral ??Normal ? Mid-Inferior ?Normal ? Mid-Inferoseptal ?Normal ? [place]-Septal ? Normal ? [place]-Anterior ? Normal ? [place]-Lateral ?Normal ? [place]-Inferior ? Normal ? [place]-Tip ?Normal ? This report has been electronically sign ed by: _ Charlie Hurley MD ? 08/06/2016 07 :58:31 Images reviewed and interpretation bharath sam [facility] Cardiac Ultrasound Laboratory Procedure Note Charlie Hurley MD - 08/06/2016Formatt ing of this note might be different from the original. Amended Report Procedure: Transesophageal Echocardiogra m Patient: MAURA LORENZ(Age): 0 1960(55y) Med Rec#: [id number] Sex: M Site Loc: [facility] Ht / Wt: (cm)/ (kg) Pt. Loc: OR Study Date: 07/12/2016 Pt. Type: Tape: Reading: Charlie Hurley ([id number]) Diagnosis: SUMMARY: 1. [facility] for the diagnosis and evaluation of hemodynamics , overall cardiac function, and valvular pathologies as indicated. BROOKLYNN p robe was passed atraumatically after induction and removed in a similar fashion before emergence. 2. Pre-Bypass: Normal LV function was se en. There were no RWMA's. Trace MR noted, no AV pathhology, Trace PI also seen. No PFO. 3. Post-Bypass: Global LV and RV functio n is improved. LVEF is 65% although this could be due to underfilli ng. There is no change in valvular pathologies. There is no eviden ce of aortic dissection post decannulation. Remainder of the exam is unchanged from prior. Findings : Left Ventricle: The left ventricular sherman mber size is normal. There is normal global left ventricular systolic function. Ejection fraction is estimated to be 65%. Left Atrium: The left atrium is normal i n size. Right Ventricle: The right ventricle is normal in size. Aortic Valve: The aortic valve structure is normal. There is no evidence of aortic valve th ickening. There is no evidence of aortic valve st enosis. There is no evidence of aortic regurgit ation. Mitral Valve: The mitral valve leaflets appear normal. The mitral valve leaflets do not appear thickened. There is no evidence of mitral stenosis . There is trace mitral regurgitation pre sent. Tricuspid Valve: The tricuspid valve gretel flets are morphologically normal. Pulmonic Valve: The pulmonic valve appea rs normal. Aorta: There is evidence of grade 3 (ath eroma <= 5mm) atheromatous disease of the ascending aorta. There is evidence of grade 4 (atheroma > 5mm) atheromatous disease of the aortic arch. There is evidence of grade 3 (atheroma <= 5mm) atheromatous disease of the descending thoracic aorta. Wall Motion: Segment Name Rest Base-Anteroseptal Normal Base-Anterior Normal Base-Anterolateral Normal Base-Posterolateral Normal Base-Inferior Normal Base-Inferoseptal Normal Mid-Anteroseptal Normal Mid-Anterior Normal Mid-Anterolateral Normal Mid-Posterolateral Normal Mid-Inferior Normal Mid-Inferoseptal Normal [place]-Septal Normal [place]-Anterior Normal [place]-Lateral Normal [place]-Inferior Normal [place]-Tip Normal This report has been electronically sign ed by: _ Charlie Hurley MD 08/06/2016 07:58:31 Images reviewed and interpretation bharath stoney [facility] Cardiac Ultrasound Laboratory Unknown ECHO ORDERABLES Performing Organization Address City/State/ZIP Code Phon e Number [facility] documented in this encounter Visit Diagnoses Diagnosis PAD (peripheral artery disease) Peripheral vascular disease, unspecified documented in this encounter Care Teams Type Photography Supervisor Relationship Specialty Start Date End Date Zay Montilla MD PCP - General Family Medicine 01/31/15 07/20/16 [address] [place] [address] documented as of this encounter
--- OUTSIDE RECORDS SUMMARY | 2021-10-30 01:58 | XMS_ITS | Encounter Summary ---
:1960 Author Organization [facility] [place] [address] Care Team Providers Name Role Phone Zay Montilla MD Primary Care Provider Reason for Visit Reason Comments Follow-up PVD with claudication Encounter Details Date Type Department Care Team Description 10/28/2015 Office Visit Vascular Surgery at Harry Maurice, PAD (peripheral artery disease); [facility] Atherosclerosis of [place] artery of both lower extremities with intermittent claudication [facility] [address] [place] VASCULAR SURGERY [id number] [place] [address] [phone] Social History Tobacco Use Types Packs/Day Years Used Date Current Every Day Smoker 1 Tobacco Cessation: Ready to Quit: No Sex Assigned at Date Recorded Not on file documented as of this encounter Last Filed Vital Signs Vital Sign Reading Time Taken Comments Blood Pressure 178/87 10/28/2015 9:55 AM EDT Pulse 82 10/28/2015 9:55 AM EDT Temperature - - Respiratory Rate - - Oxygen Saturation - - Inhaled Oxygen Concentration - - Weight 79.4 kg (175 lb) 10/28/2015 9:55 AM EDT Height 167.6 cm (5' 6) 10/28/2015 9:55 AM EDT Body Mass Index 28.25 10/28/2015 9:55 AM EDT documented in this encounter Progress Notes Harry Maurice MD - 10/28/2015 2:20 PM EDT Vascular Attending Addendum I interviewed and examined Mr. Berry along with Dr. Fox, and based on my independent findings, I agree with Dr. Fox' assessment and list of recommendations. In summary, Mr. Berry is a diabetic smoker with early peripheral vascular insufficiency. Due to financial difficulties, he has been unable to purchase any of the medications he was on previously, buthe is still able to afford cigarettes. I emphasized the fact that his is relatively young, and that his PVD is advanced beyond what would be expected for age. I explained that the combination of diabetes and tobacco abuse constitute a prescription for disaster for lower extremities. I urged him to employ any possible means to quit smoking, and the options were reviewed. Plan is RTC in one year, or sooner if his lower extremity occlusive disease symptoms worsen. Harry Maurice M.D. Section of Vascular Surgery Ernesto Fox MD - 10/28/2015 10:22 AM EDT Vascular Surgery Clinic Note Reason for Visit: PAD with claudication History: Oleg Berry is a 55 y.o. diabetic smoker with RT>LT buttock, thigh, calf and foot pain when walking. He reports symptoms have been present since September 2014. This has worsened and he now reports that he can walk ~30 yards on a flat surface and can climb one flight of stairs before hemust rest. In the past, his symptoms have rapidly resolved with cessation of activity, but he statesthat over the last few months his pain has resolved at a much slower pace. Of note, the patient has not taken any of his medications, including his diabetes medications and statin since June due to financial constraints. He has continued to smoke 1 ppd. He has made attempts to quit in the past, but has never been successful. Previously, he was started on cilostazol and initially reported symptom improvement, but today he reports that he stopped this medication last year because he did not feel it was doing anything for him. PMH: DM2 - metformin and glipizide Tobacco abuse - 1ppd currently HLD - atorvastatin 40mg Mild DJD PSH: Shoulder arthroscopy Meds: Has not taken any medications, including aspirin, since June 2015 Allergies: Denies ROS: General: Denies fevers, chills, night sweats Neuro: Denies lightheadedness, amaurosis, dysarthria, transient weakness or new headaches HEENT: Denies changes in vision, hearing Pulm: Denies shortness of breath, wheezing or cough Card: Endorses claudication. Denies chest discomfort, palpitations, orthopnea GI: Denies nausea, vomiting, constipation, diarrhea : Denies urinary urgency, frequency, dysuria, hematuria Musc: Denies joint pains or stiffness, denies extremity swelling Endo: Denies heat or cold in tolerance Exam: General: NAD HEENT: PERRL, anicteric sclerae CVS: Regular rate, no murmurs rubs or gallops Pulm: Clear to auscultation bilaterally Abd: Soft, non tender Ext: RLE: No edema. Skin warm and pink. No telangiectasias or varicosities. No tissue loss. Capillary refill ~2 seconds LLE: No edema. Skin warm and pink. No telangictasias or varicosities. No tissue loss. Capillary refill <2 seconds Neuro: CN 2-12 grossly intact, nonfocal, moving all extremities. Sensation intact in extremities bilaterally symmetric. Vascular Exam: R L Carotid 2/2 bruit () 2/2 bruit () Radial 2/2 2/2 Femoral 1/2 2/2 Popliteal 0/2 1/2 DP 0/2 0/2 PT 0/2 0/2 Vascular Lab Studies today: ABIs: Interpretation: RIGHT: Mild lower extremity arterial occlusive disease. No identifiable change when compared to the previous exam performed on 02/10/2015. LEFT: Mild lower extremity arterial occlusive disease. No identifiable change when compared to the previous exam performed on 02/10/2015. Previous ABIs with change from previous value: Date ?RIGHT DP ?? RIGHT PT ?? RT GR TOE ??LEFT DP ?LEFT PT ?LT GR TOE ??0.70 ? 0.68 ? 0.47 ? 0.80 ? 0.82 ? 0.72 Current ? 0.74(+.04) 0.73(+.05) 0.50(+.03) 0.91(+.11) 0.94(+.12) 0.88(+.16) Assessment and Plan: Oleg Berry is a 55 y.o. male with PAD and presents to clinic complaining of worsening claudication in the R leg. The patient does not have critical limb ischemia. Given that the patient has not been able to take any of his medications, the approach to the patient's jo-ann ication does not yet require operative intervention. This is further supported by ABIs listed above,which are relatively unchanged in the last 8 months. Today we discussed the importance of controlling the patient's diabetes and tobacco cessation. The synergistic effect of diabetes and smoking was reiterated. Ultimately, the recommendation of risk factor modification including daily walking and medication adherence were emphasized. The patient was instructed to follow-up in 1 year with ABIs to assess for interval change. Lastly, the patient was instructed to maintain meticulous foot care and to contact theclinic should he develop any sores, ulcers, or gangrenous toes. Recommendations Continue to do everything possible to quit smoking Daily walking exercise Meticulous foot skin care Clean soft socks and avoid tight or otherwise poorly-fitting shoes RTC one year with ABIs & Doppler waveforms documented in this encounter Plan of Treatment Not on filedocumented as of this encounter Visit Diagnoses Diagnosis PAD (peripheral artery disease) Peripheral vascular disease, unspecified Atherosclerosis of [place] artery of both lower extremities with intermittent claudication Atherosclerosis of [place] arteries of th e extremities with intermittent claudication documented in this encounter Care Teams Long Term Care Phlebotomist Relationship Specialty Start Date End Date Zay Montilla MD PCP - General Family Medicine 01/31/15 07/20/16 [address] [place] [address] documented as of this encounter
--- OUTSIDE RECORDS SUMMARY | 2021-10-30 01:58 | XMS_ITS | Encounter Summary ---
:1960 Author Organization [facility] [place] [address] Care Team Providers Name Role Phone Zay Montilla MD Primary Care Provider Encounter Details Date Type Department Care Team Description 02/17/2015 Abstract Vascular Surgery at [facility] Shobha Andrea, [place] [address] Social History Tobacco Use Types Packs/Day Years Used Date Current Every Day Smoker Sex Assigned at Date Recorded Not on file documented as of this encounter Plan of Treatment Not on filedocumented as of this encounter Visit Diagnoses Not on filedocumented in this encounter Care Teams Credit Support Specialist Relationship Specialty Start Date End Date Zay Montilla MD PCP - General Family Medicine 01/31/15 07/20/16 [address] [place], [place] [address] documented as of this encounter
--- OUTSIDE RECORDS SUMMARY | 2021-10-30 01:58 | XMS_ITS | Encounter Summary ---
:1960 [place] [address] Care Team Providers Name Role Phone Zay Montilla MD Primary Care Provider Reason for Visit Auth/Cert Specialty Diagnoses / Procedures Referred By Contact Refer red To Contact Diagnoses Pain Chest pain, unspecified type NSTEMI (non-ST elevated myocardial infarction) Procedures CARDIAC CATHETERIZATION Referral ID Status Reason Start Date Expiration Date Visits Requ ested Visits Authorized [id number] 1 1 Encounter Details Date Type Department Care Team Description 07/08/2016 Surgery Ceo And Co Founder Terell Hernandez, CARDIAC CATHETERIZATION [facility] [place] [address] CARDIOLOGY DEPT. [phone] [place], [place] [address] (Wo rk) Social History Tobacco [...] in this encounter Discharge Summaries Jasmine Boston, HVAC SALES ENGINEER - 07/16/2016 10:40 AM EDT Inpatient - Discharge Summary Patient Name: Bertin Berry Patient Age: 55 y.o. Birthdate: 1960 Language: Guinean Race: White Ethnicity: Not nor Admit Date: 07/08/2016 Discharge Date: 07/16/2016 Attending Physician: Valentino Pérez MD Follow-up Recommendations for Providers: Please continue routine management of cardiovascular risk factors including blood pressure, lipids, glucose, etc. Please note any changes to medications. Patient to follow-up with PCP, Zay Montilla MD, in 1-2 weeks. Patient to follow-up with Cathode Washer, Dr. Cotter, in two weeks. Patient to follow-up with Cardiac Surgery, Dr. Valentino Pérez, in ~ 4 weeks with CXR, EKG. Inpatient Provider Contact Information: [facility] Section of Cardiac Surgery [facility] [address] FAX [phone] Discharge Diagnoses (Hospital Problems) Primary Diagnoses: CAD [...] 39.88) performed by Valentino Pérez MD at [facility] MAIN OR ??? PRO CABG, ARTERY-VEIN, TWO N/A 07/12/2016 @CABG, TWO VENOUS GRAFTS & ARTERIAL GRAFT (WRVU 7.93) performed by Valentino Pérez MD at [facility] MAIN OR ??? PRO ENDOSCOPY W/VIDEO-ASST VEIN HARVEST, CABG Right 07/12/2016 ENDOSCOPIC HARVEST VEIN(S) FOR CABG (WRVU 0.31) performed by Valentino Pérez MD at [facility] MAIN OR Prior To Admission [...] angina and a positive troponin from an [place]. He has had class 2 nyha heart [...] Hospital Course: Bertin Berry was admitted to [facility] on 07/08/2016 via the Cardiology Service. 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 Weight: [...] Dr. Valentino Pérez. You may use a [place] or treadmill but avoid any pulling [...] friends, go to a movie, go to anabaptism, etc. Heavy activities: No hunting, skiing, jogging, snow shoveling, snowmobiling, lawn mowing, swimming, golf or tennis until after your return appointment with the surgeon. Do not ride motorcycles, [employer] tractors or horses. Avoid the use of [...] should resume a low fat, low cholesterol, [place] [employer] Diet/Diabetic diet. Driving: No driving [...] the outpatient Phase 2 Cardiac Rehabilitation at [facility] . The patient agrees to a referral to this program. The referral will be sent at discharge and the patient should be contacted by the Program within 1- 2 weeks from discharge. Future Appointments and Orders Future Orders Complete By Expires XR Chest PA & Lateral (Generic) [[id number] Custom] 08/15/2016 (Approximate) 07/15/2017 Process Instructions: Scheduling Instructions: Questions: Where will study be performed?: [facility] Portable exam?: Reason for exam and clinical history: s/p cabg Other pertinent information: Stat read required?: Date of injury if applicable: Requested Time: EKG 12 Lead [EKG1 Custom] As directed Process Instructions: Scheduling Instructions: Questions: Which DH location will this be performed?: [place] Is a rhythm strip needed?: No If EKG Reason is Pre-op Evaluation, indicate diagnosis for surgery.: Should this service be billed to the research sponsor?: Referral to Cardiac Rehab [FRM972 Custom] As directed Process Instructions: If no progress note charted, please enter Clinical details in comments. Scheduling Instructions: Questions: My question or request is: CABG- Cardiac rehab at [facility] Arrangements for VNA/home care: As above. VN RN OR PCP TO PLEASE REMOVE CHEST TUBE SUTURES ON OR AFTER 07/23/16 Signed: JASMINE BOSTON APRN [facility] Section of Cardiac Surgery [facility] [address] FAX [phone] Date: 07/16/2016 CC: MD Haider Shirley, Lupillo Leos MD [address] [place] [address] [place] [address] documented in this encounter Discharge Instructions Patient [...] Almanza. Mayela and/or the Cardiac Surgery Physician Jewish Thought Professor Team may be reached at . Weight: [...] Dr. Valentino Pérez. You may use a [place] Track or treadmill but avoid any pulling [...] friends, go to a movie, go to anabaptism, etc. Heavy activities: No hunting, skiing, jogging, snow shoveling, snowmobiling, lawn mowing, swimming, golf or tennis until after your return appointment with the surgeon. Do not ride motorcycles, [employer]'s tractors or horses. Avoid the use of [...] should resume a low fat, low cholesterol, [place] Heart [employer] Diet/Diabetic diet. Driving: No driving [...] the outpatient Phase 2 Cardiac Rehabilitation at [facility] . The patient agrees to [...] as of this encounter Progress Notes Sujatha Kineny MSW - 07/16/2016 12:23 PM EDT fixed income portfolio manager set up OCM coverage for most [...] Ángel go home with son Shabbir. Lyla Mohr APRN - 07/16/2016 10:41 AM EDT Follow Up Diabetes Consult Patient Interview Mr Pires tells me he is very happy to be discharged today, and that he is planning to get clam chowder when he is discharged. Requested teaching on insulin administration, agricultural extension educator for hospital unavailable before discharge. Patient endorses [...] discharge instructions as below Lyla Mohr APRN [facility] Endocrinology Diabetes Management Pager [phone] 20 minutes of this 35 minute visit [...] he could no longer afford cable or [facility]...show choices limited.... History : Patient Active Problem List Diagnosis Code ??? Diabetes mellitus, type 2 E11.9 ??? Tobacco abuse Z72.0 ??? Hyperlipidemia E78.5 ??? Osteoarthritis M19.90 ??? 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 Peripheral artery disease--- severe bilateral iliac and DECONTAMINATOR disease I73.9 ??? Hypertension I10 ??? 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 male [...] 4, POD 3, doing well. Transferred from [facility], no overnight events, will dc PW today, [...] me he's been getting advances from his shelter fund to get by. Summary of Counseling [...] BG checks/correction to q4h Lyla Mohr APRN [facility] Endocrinology Diabetes Management Pager [phone] 25 minutes of this 35 minute visit [...] ??? Osteoarthritis M19.90 ??? 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 Peripheral artery disease--- severe bilateral iliac and DECONTAMINATOR disease I73.9 ??? Hypertension I10 ??? Financial [...] insulin to carb ratio Lyla Mohr APRN [facility] Endocrinology Diabetes Management Pager [phone] 15 minutes of this 25 minute visit [...] Peripheral artery disease--- severe bilateral iliac and DECONTAMINATOR disease ??? Hypertension ??? Financial difficulties--- barrier to medication use ??? Coronary artery disease ??? Non ST elevation ID due to severe 3vD-- awaiting for CABG [...] ??C (99.9 ??F)] Heart Rate: [87-117] Resp: [8] BP: (93-139)/(59-68) SpO2: [90 %-100 %] Heart [...] insulin:carb ratio Will follow Lyla Mohr APRN [facility] Endocrinology Diabetes Management Pager [phone] 20 minutes of this 35 minute visit [...] 3 wbc, hgb, hct plt Recent Labs 07/13/1640907/12/16205407/12/16 1550 07/12/16 1430 07/12/16 0434 WBC 9.8* -- 11.0* -- 9.1 HGB 10.2* 11.1* 9.1* 8.5* 14.5 HCT 31.1* -- 27.5* 26.0* 43.5 PLATELET 136* -- 124* 172 181 Last 3 Lytes Recent Labs 07/13/1640907/12/16205407/12/16 0434 07/11/16 0404 NA 140 -- 138 [...] R IJ, RAL, med CT x2 (D/C), Larisa Burchire Dispo: Likely remain CVCC today Discussed on [...] Kinney MSW - 07/12/2016 10:31 AM EDT fixed income portfolio manager met with Pt for nearly an hour to discuss his psychosocial stressors - unemployment, medication costs, fuel assistance, food assistance, etc. fixed income portfolio manager provided contact information for [facility] ([phone]) for food, fuel, utility assistance and [facility] office ([phone]) for fuel assistance, food stamps, utility assistance, vocational rehab. He reports having Medicaid in pending [place] fixed income portfolio manager tried to support Pt about medication [...] Darrius Cotter MD Admission Date/Time: 07/08/2016 at 3665 PCP: Zay Montilla MD at [phone] ID: Bertin Berry is a 55 year [...] ??? Osteoarthritis M19.90 ??? 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 Peripheral artery disease--- severe bilateral iliac and DECONTAMINATOR disease I73.9 ??? Hypertension I10 ??? Financial [...] lesions Labs: Recent Labs 07/12/16 0434 07/11/16 04007/10/16 0504 WBC 9.1 10.6* 10.9* HGB 14.5 [...] 112 Recent Labs 07/12/16 0434 07/11/16 0404 07/10/165 07/08/16 1740 INR 0.9 -- -- -- [...] CODE Roe Castellanos MD S2 Cardiology, pager [phone] 07/12/2016 Associated attestation - Rolf Zayas MD [...] Morning. Rolf Zayas MD Cardiovascular Medicine Pager: [phone] This patient meets or has met medical [...] at 1727 PCP: Zay Montilla MD at [phone] ID: Bertin Berry is a 55 year [...] ??? Osteoarthritis M19.90 ??? 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 ?? Assessment: eBrtin Berry is a 55 year old male [...] CODE Kem Chatman MD S2 Cardiology, pager [phone] 07/11/2016 Associated attestation - Darrius Cotter MD - 07/11/2016 2:42 PM EDT Cardiology Attending Note I interviewed and examined the patient during comprehensive bedside rounds. I concur with the summary of interval events, active hospital-focused problem list and plan of care. I personally reviewed the medications, laboratory results, treatment decisions and updated the patient. Active Hospital Problems Diagnosis ??? Non ST elevation ID due to severe 3vD-- awaiting for CABG [...] treatment plan with RN and/or primary team, material distributor and/or diabetes nurse educator, etc). Trista Vora - 07/10/2016 12:11 PM EDT Inpatient Cardiology Progress Note Patient Name: Bertin Berry Service: S2 Responsible Attending: Darrius Cotter MD Admission Date/Time: 07/08/2016 at 9787 PCP: Zay Montilla MD at [phone] ID: Bertin Berry is a 55 year [...] ??? Osteoarthritis M19.90 ??? 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 Cardiac Enzymes: Recent Labs 07/09/16194607/09/1640 07/09/160 CK 921* 1648* 2875* TROPONINT 2.03* 4.26* [...] SQ daily - initiate meal-associated insulin: 1:10 zpsibcw-vl-pdkd ratio - initiate custom sliding scale - [...] Trista Vora MD, PGY-3 S2 Cardiology, pager [phone] 07/10/2016 Associated attestation - Darrius Cotter MD - 07/10/2016 5:55 PM EDT Cardiology Attending Note I interviewed and examined the patient during comprehensive bedside rounds. I concur with the summary of interval events, active hospital-focused problem list and plan of care. I personally reviewed the medications, laboratory results, treatment decisions and updated the patient. Active Hospital Problems Diagnosis ??? 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 male with NSTEMI, 3 vessel disease on cath, now awaiting CABG Active Problems: Patient Active Problem List Diagnosis Code ??? Diabetes mellitus, type 2 E11.9 ??? Tobacco abuse Z72.0 ??? Hyperlipidemia E78.5 ??? Osteoarthritis M19.90 ??? 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 I concur with the summary of interval events, active hospital-focused problem list and plan of care. I personally reviewed the medications, laboratory results, treatment decisions and updated the patient. Active Hospital Problems Diagnosis ??? 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 male with past medicla history significant for ASCVD (hospitalized for NSTEMI in 2006 cath showed nonobstructive CAD), COPD, depression, DM, HTN, HLD, active smoking and medication noncompliance (has not taken any medications in the last 8 months) who presented to ED with complaints of chest pain. Patient [...] SL nitro, although it did persist. At he was given plavix 300 mg at [...] Known Allergies Family History: Father had an ID in his 50s Denies any other family [...] the last 8 months) who presented to ED with complaints of chest pain, found [...] PLAN: Admit to Cardiology, S2 Team Pager #[phone] NSTEMI, found to have 3VD - surgical [...] Dispo: admit to [facility]CC, S2 team, pager [phone] HEAVENLY PEREZ, DO PGY3 Internal medicine Cardiology Attending Note I interviewed and examined the patient during comprehensive bedside rounds. I concur with the summary of interval events, active hospital-focused problem list and plan of care. I personally reviewed the medications, laboratory results, treatment decisions and updated the patient. Active Hospital Problems Diagnosis ??? 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 male with past medicla history significant for ASCVD (hospitalized for NSTEMI in 2006 cath showed nonobstructive CAD), COPD, depression, DM, HTN, HLD, active smoking and medication noncompliance (has not taken any medications in the last 8 months) who presented to ED with complaints of chest pain. Patient [...] SL nitro, although it did persist. At he was given plavix 300 mg at [...] Known Allergies Family History: Father had an ID in his 50s Denies any other family [...] the last 8 months) who presented to ED with complaints of chest pain, found [...] PLAN: Admit to Cardiology, S2 Team Pager #[phone] NSTEMI, found to have 3VD - surgical [...] Dispo: admit to [facility]CC, S2 team, pager [phone] HEAVENLY PEREZ, DO PGY3 Internal medicine Cardiology Attending Note I interviewed and examined the patient during comprehensive bedside rounds. I concur with the summary of interval events, active hospital-focused problem list and plan of care. I personally reviewed the medications, laboratory results, treatment decisions and updated the patient. Active Hospital Problems Diagnosis ??? 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 No sob/headaache/dizziness. Pt on monitor car operator with cycling bp's q15mns, cont pulse ox. 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 No n/v/d. Afebrile. No cough/cold. +cmsx4. +7kpgluvg6. <3sec refillx4. =aromx4. ls clear. abd soft n-tender. Gabrielle Buckley RN - 07/08/2016 5:45 PM EDT Cards at bedside Sangita Ford - 07/08/2016 5:38 PM EDT Emergency Department Bertin Berry is a 55 y.o. male who presents to [facility] in transfer from [facility] with chest pain that came on this morning while shoveling snow. EKG at outside hospital showed STelevations of 1mm in II, III, AVF without reciprocal changes. Reviewed by our clinical business analyst, felt notto meet acute STEMI criteria, but patient transferred urgently for reassessment in our ED by cardiology team, decision to be made on whether or not to cath emergently from there. No lytics given as OSH Cathode Washer at bedside on arrival. Plan to begin [...] MD 07/08/2016 Sangita Ford MD Resident 07/08/16 3547 Associated attestation - Sangita Robles MD - [...] He was initiated on heparin and plavix junior systems analyst. Cardiology was at bedside shortly after arrival and performing bedsideecho. Based on exam, echo etc it was felt by cardiology to take pt to the cathead worker for intervention Final Assessment: nstemi documented in this encounter Miscellaneous Notes Consult Note - Ember Do RN - 07/16/2016 10:30 AM EDT [facility] CARDIAC REHABILITATION Bertin Berry was seen today regarding participation in the outpatient Phase 2 Cardiac Rehabilitation at [facility] . The patient agrees to [...] no PT needs) SLIM LOCKHART, PT Pager: [phone] Inpatient Physical Therapy Plan of Care - Sarah Tolentino, HEAVEN - 07/16/2016 7:27 AM EDT Problem: Patient Care Overview Goal: Plan of Care Review Outcome: Ongoing (Interventions Implemented as Appropriate) 07/15/16 1254 07/15/16 2128 Coping/Psychosocial Plan Of Care Reviewed With -- [...] and family assist) SLIM LOCKHART, PT Pager: [phone] Inpatient Physical Therapy Problem: Acute Rehab Services Goal & Intervention Plan Goal: Bed Mobility Goal Stand Alone Therapy Goal Outcome: Ongoing (Interventions Implemented as Appropriate) 07/13/16 1207 Bed Mobility Goal Bed Mobility Goal, Date Established 07/13/16 Bed Mobility Goal, Time to Achieve 1 wk Bed Mobility Goal, Activity Type all bed mobility activities Bed Mobility Goal, Frontier Level independent Goal: Gait Training Goal Stand Alone Therapy Goal Outcome: Ongoing (Interventions Implemented as Appropriate) 07/13/16 1207 Gait Training Goal Gait Training Goal, Date Established 07/13/16 Gait Training Goal, Time to Achieve 1 wk Gait Training Goal, Frontier Level independent Gait Training Goal, Distance to [...] and family assist) SLIM LOCKHART, PT Pager: [phone] Inpatient Physical Therapy Problem: Acute Rehab Services Goal & Intervention Plan Goal: Bed Mobility Goal Stand Alone Therapy Goal Outcome: Ongoing (Interventions Implemented as Appropriate) 07/13/16 1207 Bed Mobility Goal Bed Mobility Goal, Date Established 07/13/16 Bed Mobility Goal, Time to Achieve 1 wk Bed Mobility Goal, Activity Type all bed mobility activities Bed Mobility Goal, Frontier Level independent Goal: Gait Training Goal Stand Alone Therapy Goal Outcome: Ongoing (Interventions Implemented as Appropriate) 07/13/16 1207 Gait Training Goal Gait Training Goal, Date Established 07/13/16 Gait Training Goal, Time to Achieve 1 wk Gait Training Goal, Frontier Level independent Gait Training Goal, Distance to Achieve 150 Gait Training Goal, Additional Goal pt will go up and down 4 steps with rail independently Goal: Goal Transfer Training Stand Alone Therapy Goal Outcome: Ongoing (Interventions Implemented as Appropriate) 07/13/16 1207 Goal Transfer Training Transfer Training Goal, Date Established 07/13/16 Transfer Training Goal, Time to Achieve 1 wk Transfer Training Goal, Activity Type bax-tx-rjjbb/icygr-zy-rwd Transfer Train Goal, Frontier Level independent Plan of Care - Myrna [...] CPG). Outcome: Ongoing (Interventions Implemented as Appropriate) 07/13/16 0428 Cardiac Surgery Problems Assessed (Cardiac Surgery) all [...] Operative Note Patient Name: Bertin Berry : [id number] MR#: [id number] Case Date: 07/12/2016 Surgeon: Surgeon(s) and Role: * Valentino Pérez MD - Primary * Huber Womack PA - Physician Jewish Thought Professor * Yoav Mendoza PA - Physician Jewish Thought Professor * Rosa Maria Rojas MD - Resident-Surgeon [...] 12:40 PM EDT 07/14/2016 Bertin Berry 1960 [id number] Preoperative Diagnosis: Coronary artery disease Non-STEMI Postoperative Diagnosis: Coronary artery diseaseNon-STEMI Procedure: CABG times 4: FOSS to LAD, SVG to om, svg to diag, LEAH to rca. Endoscopic vein harvest Surgeon: Valentino Pérez M.D. Jewish Thought Professor: Bob BAKER, Arnol VALENTIN Anesthesia: General endotracheal [...] the medial aspect of the knee. The MetailView XB7 system was used to dissect out [...] 07/11/16 1313 Health Knowledge, Opportunity to Enhance (Adult,NICU,Lorain,Obstetrics,Pediatric) Knowledgeable about Health Subject/Topic making progress toward [...] concern for aneurysm/pseudoaneursym. Patient's son, grandchildren, and navreqvz-nn-ozr in to visit today. PLAN MOVING FORWARD: [...] in reach; room kept free of obstacles; spares scheduler attached and alarms and settings reviewed q [...] Overview Goal: Plan of Care Review 07/10/16 1649 03/19/17 0334 Coping/Psychosocial Plan Of Care Reviewed With -- patient Plan of Care Review Progress no change -- Goal: Fall Prevention-Safe Patient Handling 07/10/16 1649 07/10/162024 Restraint Interventions Safety Promotion/Fall Prevention -- activity [...] outcomes by discharge/transition of care. 07/10/16 164 Skin Integrity Impairment, Risk/Actual (Adult) Skin Integrity/Wound [...] none Problem: Health Knowledge, Opportunity to Enhance (Adult,NICU,Lorain,Obstetrics,Pediatric) Goal: Knowledgeable about Health Subject/Topic Patient will demonstrate the desired outcomes by discharge/transition of care. 07/10/16 164 Health Knowledge, Opportunity to Enhance (Adult,NICU,Lorain,Obstetrics,Pediatric) Knowledgeable about Health Subject/Topic making progress toward [...] in reach; room kept free of obstacles; spares scheduler attached and alarms and settings reviewed q [...] Outcome: Ongoing (Interventions Implemented as Appropriate) 07/08/16225507/10/16 0553 Discharge Needs Assessment Concerns To Be Addressed -- financial/insurance concerns;medication concerns;substance/tobacco abuse/use concerns Readmission Within The Last 30 Days -- no previous admission in last 30 days Current Discharge Risk -- lives alone;chronically ill Discharge Disposition -- home or self-care Activity/Self Care Review of Systems Equipment Currently Used at Home spencer acevedo -- Problem: Cardiac Cath/Percutaneous Coronary Intervention (Adult) [...] none Problem: Health Knowledge, Opportunity to Enhance (Adult,NICU,Lorain,Obstetrics,Pediatric) Goal: Identify Related Risk Factors and Signs [...] 07/10/16 0553 Health Knowledge, Opportunity to Enhance (Adult,NICU,Lorain,Obstetrics,Pediatric) Knowledgeable about Health Subject/Topic making progress toward outcome Initial Assessments - Samuel Garcia - 07/09/2016 1:42 PM EDT Office of Care Management Initial Assessment Samuel Garcia RN reviewed record and discussed patient with Care Team. Fuel Technician is assisting CORTES Howard, who is the manager of case management assigned to pt's case. Source of Information: Patient Introduced self/reviewed role; services accepted. Reason for Hospitalization: Chest pain No past medical history on file. Hospitalizations Within the Past 30 Days: Pt transferred from [facility] Anticipated Length Of Stay (If [...] coverage Prescription Coverage: No coverage Preferred Pharmacy: [employer] in [place] Other: n/a Primary Care Provider: Zay Montilla MD [phone] Patient/Caregiver Goals of Treatment: Return home Potential Needs for Transition of Care: Rehab/SNF: Need to be determined Home Health: Pt stated he would use [facility] if he had the financial means to [...] his financial situation. Concerns were addressed with [employer] PROFESSOR who will follow up with pt. Plan: CABG on Tuesday. Needs to be determined. Pt will likely return home upon d/c. A member of the Care Management team will continue to monitor progress, follow for continuity of care and assist with transition of care planning. Samuel Garcia RN Pager: [phone] Consult Note - Lyla Mohr APRN - [...] management and to provide a review of skilled nursing diabetes care. Diabetes History: Bertin Berry has [...] Chatman who will place the above orders shelter diabetes care: Medications - Outpatient treatment regimen recommendations pending based on the hospital course. Monitoring - continue BG tid ac & hs Diet - low fat/low carb diet Exercise - weight-bearing exercise 30 min/day, as tolerated Thank you for allowing us to provide care for your patient Lyla Mohr APRN Endocrinology, Diabetes Management Team Pager [phone] Plan of Care - Angeli Galindo RN [...] procedure are i n the results section. 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 PREPARE COAG FACTORS STAT 07/12/2016 10:45 Res [...] section. TYPE AND SCREEN Routine 07/11/2016 2:44 ([facility]) PM EDT ARTERIAL DUPLEX LEG STAT 07/11/2016 [...] Routine 07/09/2016 7:47 Results f or this ([facility]) PM EDT procedure are i n the [...] Routine 07/09/2016 9:40 Results f or this ([facility]) AM EDT procedure are i n the [...] Routine 07/09/2016 1:30 Results f or this ([facility]) AM EDT procedure are i n the [...] STAT 07/08/2016 5:40 Results f or this ([facility]) PM EDT procedure are i n the [...] original. EXAMINATION: XR CHEST PA AND LATERAL ([employer]) CLINICAL HISTORY: s/p cabg TECHNIQUE: PA and lateral COMPARISON: 07/15/2016 FINDINGS: Heart and mediastinum are within normal limits. Stable postoperative findings in the mediastinum. Lungs are clear. Stable tiny bilateral pleural effusions. No pulmonary edema or pneumothorax. Aeratio n of lung bases is improved since prior study IMPRESSION Tiny residual bilateral pleural effusion s Valentino Pérez MD IMG DX ORDERABLES SCAN DOC: DINKEY ENGINE FIRER/FIREMAN (07/17/2016 12:00 AM EDT) Narrative 07/17/2016 12:00 [...] Signature POC Glucose 92 65 - 199 [facility] Comment: Supplemental ranges: <140 mg/dL before meals <180 mg/dL all other times of the day Specimen Anatomical Collection Method Collection Time Receive d Time (Source) Location / / Volume Laterality Blood specimen 07/16/2016 11:55 7 (specimen) AM EDT 11:55 AM EDT Valentino Pérez MD POINT OF CARE TEST ORDERABLE S Performing Organization Address City/State/ZIP Code Phon e Number [address] POCT Glucose (07/16/2016 7:34 AM EDT) athologist Signature POC Glucose 160 65 - 199 [facility] Comment: Supplemental ranges: <140 mg/dL before meals <180 mg/dL all other times of the day Specimen Anatomical Collection Method Collection Time Receive d Time (Source) Location / / Volume Laterality Blood specimen 07/16/2016 7:34 AM 017 7:34 (specimen) EDT AM EDT Valentino Pérez MD POINT OF CARE TEST ORDERABLE S Performing Organization Address City/[facility]/ZIP Code Phon e Number [address] (ABNORMAL) Differential, Automated (07/16/2016 4:13 AM EDT) [facility] gist Method Time Signature Neutrophils % 77.7 % [facility] Neutr Abs (ANC) 9.70 (H) 1.70 - [facility] 6.10 [facility] x10(3)/[facility] L LABORATORY Lymphocytes % 15.1 % [facility] Lymphocytes Abs 1.9 0.9 - 3.2 [facility] x10(3)/[facility] LABORATORY Monocytes % 5.5 % [facility] Monocyte Abs 0.7 0.3 - 0.9 [facility] x10(3)/[facility] LABORATORY Eosinophils % 0.0 % [facility] Eosinophils Abs 0.0 0.0 - 0.4 [facility] x10(3)/[facility] LABORATORY Basophils % 0.1 % [facility] Basophils Abs 0.0 0.0 - 0.1 [facility] x10(3)/[facility] LABORATORY Immature Gran % 1.60 % [facility] Comment: Immature granulocytes(IG's)percentage an d absolute count will include metamyelocytes, myelocytes, and promyelo cytes. Blood smears from CBCs yielding IG's will be scanned manually for concor dance. If this scan disagrees with the automated IG or if promyelocytes are not ed, a manual differential will be performed. Madhuri Gran Abs 0.20 (H) 0.00 - 0.04 x10(3)/[facility] LABORATORY Specimen Anatomical Collection Method Collection Time Receive d Time (Source) Location / / Volume Laterality Blood specimen 07/16/2016 4:13 AM 017 4:30 (specimen) EDT AM EDT Resulting Agency Comment Spec In Lab Valentino Pérez MD HEMATOLOGY ORDERABLES Performing Organization Address City/State/[place] [address] (ABNORMAL) Hemogram (07/16/2016 4:13 AM EDT) Analysis Performed At Patho logist Time Signature WBC 12.5 (H) 4.0 - 9.5 [facility] x10(3)/[facility] LABORATORY RBC 3.28 (L) 4.58 - [facility] 5.54 [facility] x10(6)/[facility] LABORATORY Hemoglobin 9.9 (L) 13.7 - [facility] 16.5 gm/dL [facility] Hematocrit 29.9 (L) 40.5 - [facility] 48.5 % [facility] MCV 91.2 82.9 - [facility] 93.1 fL [facility] MCH 30.2 27.5 - [facility] 32.1 pg [facility] MCHC 33.1 32.0 - [facility] 35.7 gm/dL [facility] Platelets 268 145 - 357 [facility] x10(3)/[facility] LABORATORY RDWSD 44.0 36.0 - [facility] 45.0 [facility] LABORATORY RDWCV 13.1 11.4 - [facility] 13.8 % [facility] MPV 10.8 7.6 - 12.9 [facility] LABORATORY nRBC % Auto 0.0 % [facility] nRBC Abs Auto 0.000 0.000 - [facility] 0.000 [facility] x10(3)/[facility] LABORATORY Specimen Anatomical Collection Method Collection Time Receive d Time (Source) Location / / Volume Laterality Blood specimen 07/16/2016 4:13 AM 017 4:30 (specimen) EDT AM EDT Resulting Agency Comment Spec In Lab Valentino Pérez MD HEMATOLOGY ORDERABLES Performing Organization Address City/State/[place] [address] (ABNORMAL) Basic Metabolic Panel (non-fasting) (07/16/2016 4:13 AM EDT) athologist Signature Glucose Lvl 191 65 - 199 [facility] mg/dL [facility] Comment: Diabetes: >=200 mg/dL plus symp toms BUN 27 (H) 10 - 20 mg/dL [facility] Creatinine 0.78 (L) 0.80 - 1.50 mg/dL [facility] Comment: Please note that the pediatric reference intervals supplied above were not validated at [facility]. Results from pediatri c patients should be interpreted in conjunction to the patient's age, height and muscle mass. Sodium 139 135 - 145 mmol/L [facility] Potassium 3.9 3.5 - 5.0 mmol/L [facility] Comment: Please note: ??Patients with WBC >100,00 0 may have falsely elevated Potassium levels. ??For accurate Potassium quantif ication in these patients send serum separator tube (gold top) for subsequent determinations. ??Contact the Clinical Chemistry Laboratory if there are any qu estions. Chloride 99 98 - 107 mmol/L [facility] CO2 23 22 - 31 mmol/L [facility] Anion Gap 17 (H) 5 - 15 mmol/L [facility] Calcium 8.7 8.5 - 10.5 mg/dL [facility] Estimated GFR >60 >=60 [facility] Comment: This estimated GFR (eGFR) [...] the following links into your internet browser. [email or web address] Specimen Anatomical Collection Method Collection Time Receive d Time (Source) Location / / Volume Laterality Blood specimen 07/16/2016 4:13 AM 017 4:30 (specimen) EDT AM EDT Resulting Agency Comment Spec In Lab Valentino Pérez MD CHEMISTRY ORDERABLES Performing Organization Address City/State/ZIP Code Phon e Number [address] POCT Glucose (07/16/2016 3:58 AM EDT) athologist Signature POC Glucose 186 65 - 199 [facility] mg/dL [facility] Comment: Supplemental ranges: <140 mg/dL before meals <180 mg/dL all other times of the day Specimen Anatomical Collection Method Collection Time Receive d Time (Source) Location / / Volume Laterality Blood specimen 07/16/2016 3:58 AM 017 3:58 (specimen) EDT AM EDT Valentino Pérez MD POINT OF CARE TEST ORDERABLE S Performing Organization Address City/[facility]/ZIP Code Phon e Number [address] POCT Glucose (07/15/2016 11:58 PM EDT) athologist Signature POC Glucose 122 65 - 199 [facility] mg/dL [facility] Comment: Supplemental ranges: <140 mg/dL before meals <180 mg/dL all other times of the day Specimen Anatomical Collection Method Collection Time Receive d Time (Source) Location / / Volume Laterality Blood specimen 07/15/2016 11:58 7 (specimen) PM EDT 11:58 PM EDT Valentino Pérez MD POINT OF CARE TEST ORDERABLE S Performing Organization Address City/State/ZIP Code Phon e Number [address] POCT Glucose (07/15/2016 9:13 PM EDT) athologist Signature POC Glucose 167 65 - 199 [facility] mg/dL [facility] Comment: Supplemental ranges: <140 mg/dL before meals <180 mg/dL all other times of the day Specimen Anatomical Collection Method Collection Time Receive d Time (Source) Location / / Volume Laterality Blood specimen 07/15/2016 9:13 PM 017 9:13 (specimen) EDT PM EDT Valentino Pérez MD POINT OF CARE TEST ORDERABLE S Performing Organization Address City/State/[place] [address] (ABNORMAL) POCT Glucose (07/15/2016 7:55 PM EDT) athologist Signature POC Glucose 200 (H) 65 - 199 [facility] mg/dL [facility] Comment: Supplemental ranges: <140 mg/dL before meals <180 mg/dL all other times of the day Specimen Anatomical Collection Method Collection Time Receive d Time (Source) Location / / Volume Laterality Blood specimen 07/15/2016 7:55 PM 017 7:55 (specimen) EDT PM EDT Valentino Pérez MD POINT OF CARE TEST ORDERABLE S Performing Organization Address City/State/ZIP Code Phon e Number [address] POCT Glucose (07/15/2016 4:24 PM EDT) athologist Signature POC Glucose 159 65 - 199 [facility] mg/dL [facility] Comment: Supplemental ranges: <140 mg/dL before meals <180 mg/dL all other times of the day Specimen Anatomical Collection Method Collection Time Receive d Time (Source) Location / / Volume Laterality Blood specimen 07/15/2016 4:24 PM 017 4:24 (specimen) EDT PM EDT Valentino Pérez MD POINT OF CARE TEST ORDERABLE S Performing Organization Address City/State/[place] [address] (ABNORMAL) POCT Glucose (07/15/2016 11:32 AM EDT) athologist Signature POC Glucose 235 (H) 65 - 199 [facility] Comment: Supplemental ranges: <140 mg/dL before meals <180 mg/dL all other times of the day Specimen Anatomical Collection Method Collection Time Receive d Time (Source) Location / / Volume Laterality Blood specimen 07/15/2016 11:32 7 (specimen) AM EDT 11:32 AM EDT Valentino Pérez MD POINT OF CARE TEST ORDERABLE S Performing Organization Address City/State/[place] [address] XR Chest PA & [...] 2016 EXAMINATION: XR CHEST PA AND LATERAL (LAN-PowerIC) CLINICAL HISTORY: POD3 CABG x4 TECHNIQUE: Standing [...] Signature POC Glucose 178 65 - 199 [facility] mg/dL [facility] Comment: Supplemental ranges: <140 mg/dL before meals <180 mg/dL all other times of the day Specimen Anatomical Collection Method Collection Time Receive d Time (Source) Location / / Volume Laterality Blood specimen 07/15/2016 6:57 AM 017 6:57 (specimen) EDT AM EDT Valentino Pérez MD POINT OF CARE TEST ORDERABLE S Performing Organization Address City/State/ZIP Code Phon e Number [place] [id number] (ABNORMAL) Differential, Automated (07/15/2016 6:45 AM EDT) Patholo gist Method Time Signature Neutrophils % 80.3 % [facility] Neutr Abs (ANC) 11.09 (H) 1.70 - [facility] 6.10 [facility] x10(3)/[facility] LABORATORY Lymphocytes % 11.9 % [facility] Lymphocytes Abs 1.6 0.9 - 3.2 [facility] x10(3)/[facility] LABORATORY Monocytes % 6.3 % [facility] Monocyte Abs 0.9 0.3 - 0.9 [facility] x10(3)/[facility] LABORATORY Eosinophils % 0.0 % [facility] Eosinophils Abs 0.0 0.0 - 0.4 [facility] x10(3)/[facility] LABORATORY Basophils % 0.1 % [facility] Basophils Abs 0.0 0.0 - 0.1 [facility] x10(3)/[facility] LABORATORY Immature Gran % 1.40 % [facility] Comment: Immature granulocytes(IG's)percentage an d absolute count will include metamyelocytes, myelocytes, and promyelo cytes. Blood smears from CBCs yielding IG's will be scanned manually for concor dance. If this scan disagrees with the automated IG or if promyelocytes are not ed, a manual differential will be performed. Madhuri Gran Abs 0.19 (H) 0.00 - 0.04 x10(3)/[facility] LABORATORY Specimen Anatomical Collection Method Collection Time Receive d Time (Source) Location / / Volume Laterality Blood specimen 07/15/2016 6:45 AM 017 6:51 (specimen) EDT AM EDT Resulting Agency Comment Spec In Lab Valentino Pérez MD HEMATOLOGY ORDERABLES Performing Organization Address City/State/[place] [address] (ABNORMAL) Hemogram (07/15/2016 6:45 AM EDT) [facility] Time Signature WBC 13.8 (H) 4.0 - 9.5 [facility] x[facility](3[facility] LABORATORY RBC 3.44 (L) 4.58 - [facility] 5.54 [facility] x10(6)/[facility] LABORATORY Hemoglobin 10.1 (L) 13.7 - [facility] 16.5 gm/dL [facility] Hematocrit 31.3 (L) 40.5 - [facility] 48.5 % [facility] MCV 91.0 82.9 - [facility] 93.1 [facility] LABORATORY MCH 29.4 27.5 - [facility] 32.1 pg [facility] MCHC 32.3 32.0 - [facility] 35.7 gm/dL [facility] Platelets 215 145 - 357 [facility] x10(3)/[facility] LABORATORY RDWSD 43.9 36.0 - [facility] 45.0 [facility] RDWCV 13.2 11.4 - [facility] 13.8 % [facility] MPV 11.2 7.6 - 12.9 [facility] nRBC % Auto 0.0 % [facility] nRBC Abs Auto 0.000 0.000 - [facility] 0.000 [facility] x10(3)/[facility] LABORATORY Specimen Anatomical Collection Method Collection Time Receive d Time (Source) Location / / Volume Laterality Blood specimen 07/15/2016 6:45 AM 017 6:51 (specimen) EDT AM EDT Resulting Agency Comment Spec In Lab Valentino Pérez MD HEMATOLOGY ORDERABLES Performing Organization Address City/State/[place] [address] (ABNORMAL) BMP w/fasting Glucose (07/15/2016 6:45 AM EDT) athologist Signature Glucose 175 (H) 65 - 99 [facility] Fasting mg/dL [facility] Comment: ?Fasting* Glucose Interpretive C riteria Normal [...] of Diabetes Mellitus, Position Statement from the [place] [employer]. ??Diabete s Care, Volume 33, Supplement 1, Apr 2009 BUN 18 10 - 20 mg/dL [facility] Comment: result rechecked-sb Creatinine 0.65 (L) 0.80 - 1.50 mg/dL [facility] Comment: Please note that the pediatric reference intervals supplied above were not validated at [facility]. Results from pediatri c patients should be interpreted in conjunction to the patient's age, height and muscle mass. Sodium 140 135 - 145 mmol/L [facility] Potassium 3.8 3.5 - 5.0 mmol/L [facility] Comment: Please note: ??Patients with WBC >100,00 0 may have falsely elevated Potassium levels. ??For accurate Potassium quantif ication in these patients send serum separator tube (gold top) for subsequent determinations. ??Contact the Clinical Chemistry Laboratory if there are any qu estions. Chloride 101 98 - 107 mmol/L [facility] CO2 23 22 - 31 mmol/L [facility] Anion Gap 16 (H) 5 - 15 mmol/L [facility] Calcium 8.8 8.5 - 10.5 mg/dL [facility] Estimated GFR >60 >=60 [facility] Comment: This estimated GFR (eGFR) [...] the following links into your internet browser. [email or web address] Specimen Anatomical Collection Method Collection Time Receive d Time (Source) Location / / Volume Laterality Blood specimen 07/15/2016 6:45 AM 017 6:51 (specimen) EDT AM EDT Resulting Agency Comment Spec In Lab Valentino Pérez MD CHEMISTRY ORDERABLES Performing Organization Address City/State/[place] [address] (ABNORMAL) POCT Glucose (07/15/2016 6:15 AM EDT) athologist Signature POC Glucose 217 (H) 65 - 199 [facility] mg/dL [facility] Comment: Supplemental ranges: <140 mg/dL before meals <180 mg/dL all other times of the day Specimen Anatomical Collection Method Collection Time Receive d Time (Source) Location / / Volume Laterality Blood specimen 07/15/2016 6:15 AM 017 6:15 (specimen) EDT AM EDT Valentino Pérez MD POINT OF CARE TEST ORDERABLE S Performing Organization Address City/[facility]/[place] [address] (ABNORMAL) POCT Glucose (07/15/2016 4:56 AM EDT) athologist Signature POC Glucose 214 (H) 65 - 199 [facility] mg/dL [facility] Comment: Supplemental ranges: <140 mg/dL before meals <180 mg/dL all other times of the day Specimen Anatomical Collection Method Collection Time Receive d Time (Source) Location / / Volume Laterality Blood specimen 07/15/2016 4:56 AM 017 4:56 (specimen) EDT AM EDT Valentino Pérez MD POINT OF CARE TEST ORDERABLE S Performing Organization Address City/State/[place] [address] (ABNORMAL) POCT Glucose (07/15/2016 4:00 AM EDT) athologist Signature POC Glucose 216 (H) 65 - 199 [facility] mg/dL [facility] Comment: Supplemental ranges: <140 mg/dL before meals <180 mg/dL all other times of the day Specimen Anatomical Collection Method Collection Time Receive d Time (Source) Location / / Volume Laterality Blood specimen 07/15/2016 4:00 AM 017 4:00 (specimen) EDT AM EDT Valentino Pérez MD POINT OF CARE TEST ORDERABLE S Performing Organization Address City/State/ZIP Code Phon e Number [address] (ABNORMAL) POCT Glucose (07/15/2016 3:00 AM EDT) athologist Signature POC Glucose 213 (H) 65 - 199 [facility] mg/dL [facility] Comment: Supplemental ranges: <140 mg/dL before meals <180 mg/dL all other times of the day Specimen Anatomical Collection Method Collection Time Receive d Time (Source) Location / / Volume Laterality Blood specimen 07/15/2016 3:00 AM 017 3:00 (specimen) EDT AM EDT Valentino Pérez MD POINT OF CARE TEST ORDERABLE S Performing Organization Address City/[facility]/[place] [address] (ABNORMAL) POCT Glucose (07/15/2016 2:01 AM EDT) athologist Signature POC Glucose 232 (H) 65 - 199 [facility] mg/dL [facility] Comment: Supplemental ranges: <140 mg/dL before meals <180 mg/dL all other times of the day Specimen Anatomical Collection Method Collection Time Receive d Time (Source) Location / / Volume Laterality Blood specimen 07/15/2016 2:01 AM 017 2:01 (specimen) EDT AM EDT Valentino Pérez MD POINT OF CARE TEST ORDERABLE S Performing Organization Address City/State/[place] [address] POCT Glucose (07/15/2016 1:03 AM EDT) athologist Signature POC Glucose 192 65 - 199 [facility] mg/dL [facility] Comment: Supplemental ranges: <140 mg/dL before meals <180 mg/dL all other times of the day Specimen Anatomical Collection Method Collection Time Receive d Time (Source) Location / / Volume Laterality Blood specimen 07/15/2016 1:03 AM 017 1:03 (specimen) EDT AM EDT Valentino Pérez MD POINT OF CARE TEST ORDERABLE S Performing Organization Address City/[facility] Phon e Number [address] POCT Glucose (07/14/2016 11:56 PM EDT) athologist Signature POC Glucose 132 65 - 199 [facility] mg/dL [facility] Comment: Supplemental ranges: <140 mg/dL before meals <180 mg/dL all other times of the day Specimen Anatomical Collection Method Collection Time Receive d Time (Source) Location / / Volume Laterality Blood specimen 07/14/2016 11:56 7 (specimen) PM EDT 11:56 PM EDT Valentino Pérez MD POINT OF CARE TEST ORDERABLE S Performing Organization Address [facility] [place] [address] Potassium (07/14/2016 11:41 PM EDT) athologist Signature Potassium 4.0 3.5 - 5.0 [facility] mmol/L [facility] Comment: Please note: ??Patients with [...] Performing Organization Address City/[facility] [place] [address] POCT Glucose (07/14/2016 11:01 PM EDT) athologist Signature POC Glucose 120 65 - 199 [facility] mg/dL [facility] [facility] Comment: Supplemental ranges: <140 mg/dL before meals <180 mg/dL all other times of the day Specimen Anatomical Collection Method Collection Time Receive d Time (Source) Location / / Volume Laterality Blood specimen 07/14/2016 11:01 7 (specimen) PM EDT 11:01 PM EDT Valentino Pérez MD POINT OF CARE TEST ORDERABLE S Performing Organization Address City/State/[place] [address] [facility] [address] POCT Glucose (07/14/2016 10:30 PM EDT) athologist Signature POC Glucose 107 65 - 199 [facility] AFIA mg/dL [facility] Comment: Supplemental ranges: <140 mg/dL before meals <180 mg/dL all other times of the day Specimen Anatomical Collection Method Collection Time Receive d Time (Source) Location / / Volume Laterality Blood specimen 07/14/2016 10:30 7 (specimen) PM EDT 10:30 PM EDT Valentino Pérez MD POINT OF CARE TEST ORDERABLE S Performing Organization Address City/State/[place] [address] POCT Glucose (07/14/2016 10:01 PM EDT) athologist Signature POC Glucose 132 65 - 199 JW AFIA mg/dL [facility] Comment: Supplemental ranges: <140 mg/dL before meals <180 mg/dL all other times of the day Specimen Anatomical Collection Method Collection Time Receive d Time (Source) Location / / Volume Laterality Blood specimen 07/14/2016 10:01 7 (specimen) PM EDT 10:01 PM EDT Valentino Pérez MD POINT OF CARE TEST ORDERABLE S Performing Organization Address City/State/[place] [address] POCT Glucose (07/14/2016 8:59 PM EDT) athologist Signature POC Glucose 199 65 - 199 J[facility] AFIA mg/dL [facility] Comment: Supplemental ranges: <140 mg/dL before meals <180 mg/dL all other times of the day Specimen Anatomical Collection Method Collection Time Receive d Time (Source) Location / / Volume Laterality Blood specimen 07/14/2016 8:59 PM 017 8:59 (specimen) EDT PM EDT Valentino Pérez MD POINT OF CARE TEST ORDERABLE S Performing Organization Address City/State/ZIP Code Phon e Number [address] POCT Glucose (07/14/2016 8:10 PM EDT) athologist Signature POC Glucose 192 65 - 199 J[facility] AFIA mg/dL [facility] Comment: Supplemental ranges: <140 mg/dL before meals <180 mg/dL all other times of the day Specimen Anatomical Collection Method Collection Time Receive d Time (Source) Location / / Volume Laterality Blood specimen 07/14/2016 8:10 PM 017 8:10 (specimen) EDT PM EDT Valentino Pérez MD POINT OF CARE TEST ORDERABLE S Performing Organization Address City/State/[place] [address] POCT Glucose (07/14/2016 6:54 PM EDT) athologist Signature POC Glucose 154 65 - 199 J[facility] AFIA mg/dL [facility] Comment: Supplemental ranges: <140 mg/dL before meals <180 mg/dL all other times of the day Specimen Anatomical Collection Method Collection Time Receive d Time (Source) Location / / Volume Laterality Blood specimen 07/14/2016 6:54 PM 017 6:54 (specimen) EDT PM EDT Valentino Pérez MD POINT OF CARE TEST ORDERABLE S Performing Organization Address City/State/[place] [address] POCT Glucose (07/14/2016 5:18 PM EDT) athologist Signature POC Glucose 187 65 - 199 J[facility] [place]URANT[place] mg/dL [facility] Comment: Supplemental ranges: <140 mg/dL before meals <180 mg/dL all other times of the day Specimen Anatomical Collection Method Collection Time Receive d Time (Source) Location / / Volume Laterality Blood specimen 07/14/2016 5:18 PM 017 5:18 (specimen) EDT PM EDT Valentino Pérez MD POINT OF CARE TEST ORDERABLE S Performing Organization Address City/State/[place] [address] (ABNORMAL) POCT Glucose (07/14/2016 3:44 PM EDT) athologist Signature POC Glucose 275 (H) 65 - 199 J[facility] [place]URANT[place] mg/dL [facility] Comment: Supplemental ranges: <140 mg/dL before meals <180 mg/dL all other times of the day Specimen Anatomical Collection Method Collection Time Receive d Time (Source) Location / / Volume Laterality Blood specimen 07/14/2016 3:44 PM 017 3:44 (specimen) EDT PM EDT Valentino Pérez MD POINT OF CARE TEST ORDERABLE S Performing Organization Address City/[facility]/[place] [address] (ABNORMAL) POCT Glucose (07/14/2016 2:45 PM EDT) athologist Signature POC Glucose 249 (H) 65 - 199 JW FAIA mg/dL [facility] Comment: Supplemental ranges: <140 mg/dL before meals <180 mg/dL all other times of the day Specimen Anatomical Collection Method Collection Time Receive d Time (Source) Location / / Volume Laterality Blood specimen 07/14/2016 2:45 PM 017 2:45 (specimen) EDT PM EDT Valentino Pérez MD POINT OF CARE TEST ORDERABLE S Performing Organization Address City/State/[place] [address] (ABNORMAL) POCT Glucose (07/14/2016 1:48 PM EDT) athologist Signature POC Glucose 206 (H) 65 - 199 J[facility] AFIA mg/dL [facility] Comment: Supplemental ranges: <140 mg/dL before meals <180 mg/dL all other times of the day Specimen Anatomical Collection Method Collection Time Receive d Time (Source) Location / / Volume Laterality Blood specimen 07/14/2016 1:48 PM 017 1:48 (specimen) EDT PM EDT Valentino Pérez MD POINT OF CARE TEST ORDERABLE S Performing Organization Address City/State/[place] [address] (ABNORMAL) POCT Glucose (07/14/2016 11:59 AM EDT) athologist Signature POC Glucose 211 (H) 65 - 199 [facility] Comment: Supplemental ranges: <140 mg/dL before meals <180 mg/dL all other times of the day Specimen Anatomical Collection Method Collection Time Receive d Time (Source) Location / / Volume Laterality Blood specimen 07/14/2016 11:59 7 (specimen) AM EDT 11:59 AM EDT Valentino Pérez MD POINT OF CARE TEST ORDERABLE S Performing Organization Address City/State/[place] [address] (ABNORMAL) POCT Glucose (07/14/2016 10:43 AM EDT) athologist Signature POC Glucose 204 (H) 65 - 199 J[facility] AFIA mg/dL [facility] Comment: Supplemental ranges: <140 mg/dL before meals <180 mg/dL all other times of the day Specimen Anatomical Collection Method Collection Time Receive d Time (Source) Location / / Volume Laterality Blood specimen 07/14/2016 10:43 7 (specimen) AM EDT 10:43 AM EDT Valentino Pérez MD POINT OF CARE TEST ORDERABLE S Performing Organization Address City/State/ZIP Code Phon e Number [address] POCT Glucose (07/14/2016 9:51 AM EDT) athologist Signature POC Glucose 185 65 - 199 J[facility] [place]UR[place] mg/dL [facility] Comment: Supplemental ranges: <140 mg/dL before meals <180 mg/dL all other times of the day Specimen Anatomical Collection Method Collection Time Receive d Time (Source) Location / / Volume Laterality Blood specimen 07/14/2016 9:51 AM 017 9:51 (specimen) EDT AM EDT Valentino Pérez MD POINT OF CARE TEST ORDERABLE S Performing Organization Address City/State/ZIP Code Phon e Number [address] POCT Glucose (07/14/2016 8:16 AM EDT) athologist Signature POC Glucose 177 65 - 199 [facility] AFIA mg/dL [facility] Comment: Supplemental ranges: <140 mg/dL before meals <180 mg/dL all other times of the day Specimen Anatomical Collection Method Collection Time Receive d Time (Source) Location / / Volume Laterality Blood specimen 07/14/2016 8:16 AM 017 8:16 (specimen) EDT AM EDT Valentino Pérez MD POINT OF CARE TEST ORDERABLE S Performing Organization Address City/State/ZIP Code Phon e Number [address] POCT Glucose (07/14/2016 7:36 AM EDT) athologist Signature POC Glucose 112 65 - 199 J[facility] [place] mg/dL [facility] Comment: Supplemental ranges: <140 mg/dL before meals <180 mg/dL all other times of the day Specimen Anatomical Collection Method Collection Time Receive d Time (Source) Location / / Volume Laterality Blood specimen 07/14/2016 7:36 AM 017 7:36 (specimen) EDT AM EDT Valentino Pérez MD POINT OF CARE TEST ORDERABLE S Performing Organization Address City/State/ZIP Code Phon e Number [address] (ABNORMAL) BLOOD GAS 2 ARTERIAL (07/14/2016 7:36 AM EDT) Analysis Performed At Patho logist Time Signature pH Art 7.50 (H) 7.35 - [facility] 7.45 [facility] pCO2 Art 35 35 - 45 [facility] mmHg [facility] pO2 Art 94 85 - 104 [facility] mmHg [facility] HCO3 Art 26.9 (H) 20.0 - [facility] 26.0 [facility] mmol/L [facility] BE Art 3.8 (H) -3.0 - 3.0 [facility] mmol/L [facility] Hgb Blood Gas 10.1 (L) 13.7 - [facility] 16.5 gm/dL [facility] O2HB Art 96.0 94.0 - [facility] 97.0 % [facility] COHB Art 0.3 % [facility] Comment: Nonsmokers: 0.5-1.5% COHB Smokers: Variable, but usually less than 10% Toxic: 20-30% COHB Lethal: Greater than 60% COHB METHB Art 0.8 <=1.5 % [facility] Na Whole Blood 134 (L) 135 - 145 mmol/L [facility] K Whole Blood 3.7 3.5 - 5.0 mmol/L [facility] Comment: Please note: Patients with WBC >100,000 may have falsely elevated Potassium levels. Contact the Clinical Chemistry L aboratory if there are any questions. ICa Whole Blood 1.10 (L) 1.15 - 1.33 mmol/L [facility] Comment: Note: ??Total bilirubin higher than 20 m g/dL may lead to falsely low ionized calcium. CL Whole Blood 104 98 - 107 mmol/L [facility] Gluc Whole Bld 175 65 - 199 mg/dL [facility] Comment: Diabetes: >=200 mg/dL plus symp toms. Lactate WB 1.7 0.5 - 2.2 mmol/L [facility] LAB[facility]ATORY FIO2 Art 100 % [facility] PF Ratio Art 94 [facility] LAB[facility]ORY Specimen Anatomical Collection Method Collection Time Receive d Time (Source) Location / / Volume Laterality Blood specimen 07/14/2016 7:36 AM 017 7:36 (specimen) EDT AM EDT Valentino Pérez MD CHEMISTRY ORDERABLES Performing Organization Address City/State/[place] [address] XR Chest PA or [...] (ABNORMAL) Differential, Automated (07/14/2016 6:45 AM EDT) [facility] Method Time Signature Neutrophils % 80.1 % [facility] Neutr Abs (ANC) 9.05 (H) 1.70 - [facility] 6.10 [facility] x10(3)/[facility] LABORATORY Lymphocytes % 10.9 % [facility] Lymphocytes Abs 1.2 0.9 - 3.2 [facility] x10(3)/[facility] LABORATORY Monocytes % 8.4 % [facility] Monocyte Abs 1.0 (H) 0.3 - 0.9 [facility] x10(3)/[facility] LABORATORY Eosinophils % 0.0 % [facility] Eosinophils Abs 0.0 0.0 - 0.4 [facility] x10(3)/[facility] LABORATORY Basophils % 0.1 % [facility] Basophils Abs 0.0 0.0 - 0.1 [facility] x10(3)/[facility] LABORATORY Immature Gran % 0.50 % [facility] Comment: Immature granulocytes(IG's)percentage an d absolute count will include metamyelocytes, myelocytes, and promyelo cytes. Blood smears from CBCs yielding IG's will be scanned manually for concor dance. If this scan disagrees with the automated IG or if promyelocytes are not ed, a manual differential will be performed. Madhuri Gran Abs 0.06 (H) 0.00 - 0.04 x10(3)/[facility] LABORATORY Specimen Anatomical Collection Method Collection Time Receive d Time (Source) Location / / Volume Laterality Blood specimen 07/14/2016 6:45 AM 03/22/2 017 6:58 (specimen) EDT AM EDT Resulting Agency Comment Spec In Lab Valentino Pérez MD HEMATOLOGY ORDERABLES Performing Organization Address City/State/[place] [address] (ABNORMAL) Hemogram (07/14/2016 6:45 AM EDT) Analysis Performed At Patho logist Time Signature WBC 11.3 (H) 4.0 - 9.5 [facility] AFIA x10(3)/[facility] LABORATORY RBC 3.04 (L) 4.58 - JW AFIA 5.54 [facility] x10(6)/[facility] LABORATORY Hemoglobin 9.2 (L) 13.7 - JW FAIA 16.5 gm/dL [facility] Hematocrit 27.2 (L) 40.5 - [facility] 48.5 % [facility] MCV 89.5 82.9 - [facility] 93.1 [facility] LABORATORY MCH 30.3 27.5 - JW AFIA 32.1 pg [facility] MCHC 33.8 32.0 - JW AFIA 35.7 gm/dL [facility] Platelets 148 145 - 357 [facility] x10(3)/[facility] LABORATORY RDWSD 43.4 36.0 - [facility] AFIA 45.0 [facility] LABORATORY RDWCV 13.2 11.4 - J[facility] AFIA 13.8 % [facility]ORATORY MPV 11.6 7.6 - 12.9 [facility] LABORATORY nRBC % Auto 0.0 % [facility] nRBC Abs Auto 0.000 0.000 - JW AFAI 0.000 [facility] x10(3)/[facility] LABORATORY Specimen Anatomical Collection Method Collection Time Receive d Time (Source) Location / / Volume Laterality Blood specimen 07/14/2016 6:45 AM 017 6:58 (specimen) EDT AM EDT Resulting Agency Comment Spec In Lab Valentino Pérez MD HEMATOLOGY ORDERABLES Performing Organization Address City/State/[place] [address] (ABNORMAL) Basic Metabolic Panel (non-fasting) (07/14/2016 6:45 AM EDT) P athologist Signature Glucose Lvl 192 65 - 199 [facility] mg/dL [facility] Comment: Diabetes: >=200 mg/dL plus symp toms BUN 9 (L) 10 - 20 mg/dL [facility] LABORATORY Creatinine 0.62 (L) 0.80 - 1.50 mg/dL [facility] Comment: Please note that the pediatric reference intervals supplied above were not validated at [facility]. Results from pediatri c patients should be interpreted in conjunction to the patient's age, height and muscle mass. Sodium 137 135 - 145 mmol/L [facility] Potassium 3.7 3.5 - 5.0 mmol/L [facility] Comment: Please note: ??Patients with WBC >100,00 0 may have falsely elevated Potassium levels. ??For accurate Potassium quantif ication in these patients send serum separator tube (gold top) for subsequent determinations. ??Contact the Clinical Chemistry Laboratory if there are any qu estions. Chloride 99 98 - 107 mmol/L [facility] CO2 24 22 - 31 mmol/L [facility] Anion Gap 14 5 - 15 mmol/L [facility]ORY Calcium 8.5 8.5 - 10.5 mg/dL [facility] Estimated GFR >60 >=60 [facility] Comment: This estimated GFR (eGFR) [...] the following links into your internet browser. [email or web address] Specimen Anatomical Collection Method Collection Time Receive d Time (Source) Location / / Volume Laterality Blood specimen 07/14/2016 6:45 AM 017 6:58 (specimen) EDT AM EDT Resulting Agency Comment Spec In Lab Valentino Pérez MD CHEMISTRY ORDERABLES Performing Organization Address City/State/[place] [address] (ABNORMAL) POCT Glucose (07/14/2016 6:23 AM EDT) athologist Signature POC Glucose 204 (H) 65 - 199 [facility] AFIA mg/dL [facility] Comment: Supplemental ranges: <140 mg/dL before meals <180 mg/dL all other times of the day Specimen Anatomical Collection Method Collection Time Receive d Time (Source) Location / / Volume Laterality Blood specimen 07/14/2016 6:23 AM 017 6:23 (specimen) EDT AM EDT Valentino Pérez MD POINT OF CARE TEST ORDERABLE S Performing Organization Address City/[facility]/[place] [address] (ABNORMAL) POCT Glucose (07/14/2016 5:45 AM EDT) athologist Signature POC Glucose 227 (H) 65 - 199 [facility] AFIA mg/dL [facility] Comment: Supplemental ranges: <140 mg/dL before meals <180 mg/dL all other times of the day Specimen Anatomical Collection Method Collection Time Receive d Time (Source) Location / / Volume Laterality Blood specimen 07/14/2016 5:45 AM 017 5:45 (specimen) EDT AM EDT Valentino Pérez MD POINT OF CARE TEST ORDERABLE S Performing Organization Address City/State/[place] [address] POCT Glucose (07/14/2016 2:32 AM EDT) P athologist Signature POC Glucose 191 65 - 199 [facility] AFIA mg/dL [facility] Comment: Supplemental ranges: <140 mg/dL before meals <180 mg/dL all other times of the day Specimen Anatomical Collection Method Collection Time Receive d Time (Source) Location / / Volume Laterality Blood specimen 07/14/2016 2:32 AM 017 2:32 (specimen) EDT AM EDT Valentino Pérez MD POINT OF CARE TEST ORDERABLE S Performing Organization Address City/[facility]/ZIP Code Phon e Number [address] POCT Glucose (07/14/2016 1:22 AM EDT) athologist Signature POC Glucose 167 65 - 199 [facility] AFIA mg/dL [facility] Comment: Supplemental ranges: <140 mg/dL before meals <180 mg/dL all other times of the day Specimen Anatomical Collection Method Collection Time Receive d Time (Source) Location / / Volume Laterality Blood specimen 07/14/2016 1:22 AM 017 1:22 (specimen) EDT AM EDT Valentino Pérez MD POINT OF CARE TEST ORDERABLE S Performing Organization Address City/[facility]/[place] [address] POCT Glucose (07/14/2016 12:21 AM EDT) athologist Signature POC Glucose 172 65 - 199 [facility] AFIA mg/dL [facility] Comment: Supplemental ranges: <140 mg/dL before meals <180 mg/dL all other times of the day Specimen Anatomical Collection Method Collection Time Receive d Time (Source) Location / / Volume Laterality Blood specimen 07/14/2016 12:21 7 (specimen) AM EDT 12:21 AM EDT Valentino Pérez MD POINT OF CARE TEST ORDERABLE S Performing Organization Address City/[facility]/[place] [address] (ABNORMAL) BLOOD GAS 2 ARTERIAL (07/14/2016 12:01 AM EDT) Analysis Performed At Patho logist Time Signature pH Art 7.51 (H) 7.35 - [facility] 7.45 [facility]ORY pCO2 Art 33 (L) 35 - 45 [facility] LABORATORY pO2 Art 70 (L) 85 - 104 [facility] LABORATORY HCO3 Art 25.6 20.0 - [facility] 26.0 [facility] mmol/L [facility] BE Art 2.6 -3.0 - 3.0 [facility] mmol/L [facility] Hgb Blood Gas 11.2 (L) 13.7 - [facility] 16.5 gm/dL [facility] O2HB Art 93.7 (L) 94.0 - [facility] 97.0 % [facility] COHB Art 0.3 % [facility] Comment: Nonsmokers: 0.5-1.5% COHB Smokers: Variable, but usually less than 10% Toxic: 20-30% COHB Lethal: Greater than 60% COHB METHB Art 0.6 <=1.5 % [facility]ORATORY Na Whole Blood 133 (L) 135 - 145 mmol/L [facility] K Whole Blood 3.6 3.5 - 5.0 mmol/L [facility] Comment: Please note: Patients with WBC >100,000 may have falsely elevated Potassium levels. Contact the Clinical Chemistry L aboratory if there are any questions. ICa Whole Blood 1.08 (L) 1.15 - 1.33 mmol/L [facility] Comment: Note: ??Total bilirubin higher than 20 m g/dL may lead to falsely low ionized calcium. CL Whole Blood 106 98 - 107 mmol/L [facility] Gluc Whole Bld 165 65 - 199 mg/dL [facility] Comment: Diabetes: >=200 mg/dL plus symp toms. Lactate WB 1.1 0.5 - 2.2 mmol/L [facility] LABORATORY FIO2 Art 100 % [facility] PF Ratio Art 70 [facility] LABORATORY Specimen Anatomical Collection Method Collection Time Receive d Time (Source) Location / / Volume Laterality Blood specimen 07/14/2016 12:01 7 (specimen) AM EDT 12:01 AM EDT Valentino Pérez MD CHEMISTRY ORDERABLES Performing Organization Address City/State/[place] [address] POCT Glucose (07/13/2016 11:14 PM EDT) P athologist Signature POC Glucose 176 65 - 199 [facility] mg/dL [facility] Comment: Supplemental ranges: <140 mg/dL before meals <180 mg/dL all other times of the day Specimen Anatomical Collection Method Collection Time Receive d Time (Source) Location / / Volume Laterality Blood specimen 07/13/2016 11:14 7 (specimen) PM EDT 11:14 PM EDT Valentino Pérez MD POINT OF CARE TEST ORDERABLE S Performing Organization Address City/State/[place] [address] (ABNORMAL) BLOOD GAS 2 ARTERIAL (07/13/2016 9:58 PM EDT) Analysis Performed At Patho logist Time Signature pH Art 7.48 (H) 7.35 - [facility] 7.45 [facility] pCO2 Art 32 (L) 35 - 45 [facility] LABORATORY pO2 Art 83 (L) 85 - 104 [facility] LABORATORY HCO3 Art 23.0 20.0 - [facility] 26.0 [facility] mmol/[facility] BE Art -0.6 -3.0 - 3.0 [facility] mmol/L [facility]OR[facility] Hgb Blood Gas 10.1 (L) 13.7 - [facility] 16.5 gm/dL [facility] O2HB Art 95.2 94.0 - [facility] 97.0 % [facility] COHB Art 0.1 % [facility] Comment: Nonsmokers: 0.5-1.5% COHB Smokers: Variable, but usually less than 10% Toxic: 20-30% COHB Lethal: Greater than 60% COHB METHB Art 0.7 <=1.5 % [facility] Na Whole Blood 134 (L) 135 - 145 mmol/L [facility] K Whole Blood 3.4 (L) 3.5 - 5.0 mmol/L [facility] Comment: Please note: Patients with WBC >100,000 may have falsely elevated Potassium levels. Contact the Clinical Chemistry L aboratory if there are any questions. ICa Whole Blood 1.07 (L) 1.15 - 1.33 mmol/L [facility] Comment: Note: ??Total bilirubin higher than 20 m g/dL may lead to falsely low ionized calcium. CL Whole Blood 107 98 - 107 mmol/L [facility] Gluc Whole Bld 154 65 - 199 mg/dL [facility] Comment: Diabetes: >=200 mg/dL plus symp toms. Lactate WB 0.8 0.5 - 2.2 mmol/L [facility] LABORATORY FIO2 Art 100 % [facility] PF Ratio Art 83 [facility] Specimen Anatomical Collection Method Collection Time Receive d Time (Source) Location / / Volume Laterality Blood specimen 07/13/2016 9:58 PM 017 9:58 (specimen) EDT PM EDT Valentino Pérez MD CHEMISTRY ORDERABLES Performing Organization Address City/[facility]/[place] [address] POCT Glucose (07/13/2016 9:04 PM EDT) athologist Signature POC Glucose 164 65 - 199 [facility] mg/dL [facility] Comment: Supplemental ranges: <140 mg/dL before meals <180 mg/dL all other times of the day Specimen Anatomical Collection Method Collection Time Receive d Time (Source) Location / / Volume Laterality Blood specimen 07/13/2016 9:04 PM 017 9:04 (specimen) EDT PM EDT Valentino Pérez MD POINT OF CARE TEST ORDERABLE S Performing Organization Address City/State/[place] [address] (ABNORMAL) BLOOD GAS 2 ARTERIAL (07/13/2016 8:43 PM EDT) athologist Signature pH Art 7.50 (H) 7.35 - [facility] 7.45 [facility] pCO2 Art 33 (L) 35 - 45 [facility] mmHg [facility] pO2 Art 47 85 - 104 [facility] (Critical) [facility] LABORATORY Comment: Noted by electrical and instrumentation mechanic. HCO3 Art 24.9 20.0 - 26.0 mmol/L [facility] LABORATORY BE Art 1.6 -3.0 - 3.0 mmol/L [facility] LABORATORY Hgb Blood Gas 10.6 (L) 13.7 - 16.5 gm/dL [facility] LABORATORY O2HB Art 84.8 (L) 94.0 - 97.0 % [facility] LABORATORY COHB Art 0.4 % [facility] LABORATORY Comment: Nonsmokers: 0.5-1.5% COHB Smokers: Variable, but usually less than 10% Toxic: 20-30% COHB Lethal: Greater than 60% COHB METHB Art 0.5 <=1.5 % [facility] LABORATORY Na Whole Blood 134 (L) 135 - 145 mmol/L [facility] LABORATORY K Whole Blood 3.5 3.5 - 5.0 mmol/L [facility] LABORATORY Comment: Please note: Patients with WBC >100,000 may have falsely elevated Potassium levels. Contact the Clinical Chemistry L aboratory if there are any questions. ICa Whole Blood 1.09 (L) 1.15 - 1.33 mmol/L [facility] LABORAT[facility] Comment: Note: ??Total bilirubin higher than 20 m g/dL may lead to falsely low ionized calcium. CL Whole Blood 105 98 - 107 mmol/L [facility]OR[facility] Gluc Whole Bld 167 65 - 199 mg/dL [facility] LABORATORY Comment: Diabetes: >=200 mg/dL plus symp toms. Lactate WB 1.1 0.5 - 2.2 mmol/L [facility] LABORATORY FIO2 Art 50 % [facility] LABORATORY PF Ratio Art 94 [facility] LABORATORY Specimen Anatomical Collection Method Collection Time Receive d Time (Source) Location / / Volume Laterality Blood specimen 07/13/2016 8:43 PM 017 8:43 (specimen) EDT PM EDT Valentino Pérez MD CHEMISTRY ORDERABLES Performing Organization Address City/State/[place] [address] XR Chest PA or [...] of mediastinal drainage tube, endotracheal tube, and Newell-Vika catheter. A right internal jugular sheat h [...] of mediastinal drainage tube, endotracheal tube, and Newell-Vika catheter. A right internal jugular sheat h [...] Signature POC Glucose 157 65 - 199 [facility] mg/dL [facility] Comment: Supplemental ranges: <140 mg/dL before meals <180 mg/dL all other times of the day Specimen Anatomical Collection Method Collection Time Receive d Time (Source) Location / / Volume Laterality Blood specimen 07/13/2016 7:50 PM 017 7:50 (specimen) EDT PM EDT Valentino Pérez MD POINT OF CARE TEST ORDERABLE S Performing Organization Address City/State/[place] [address] POCT Glucose (07/13/2016 6:06 PM EDT) athologist Signature POC Glucose 170 65 - 199 [facility] mg/dL [facility] Comment: Supplemental ranges: <140 mg/dL before meals <180 mg/dL all other times of the day Specimen Anatomical Collection Method Collection Time Receive d Time (Source) Location / / Volume Laterality Blood specimen 07/13/2016 6:06 PM 017 6:06 (specimen) EDT PM EDT Valentino Pérez MD POINT OF CARE TEST ORDERABLE S Performing Organization Address City/[facility]/[place] [address] (ABNORMAL) POCT Glucose (07/13/2016 5:09 PM EDT) athologist Signature POC Glucose 202 (H) 65 - 199 [place] [place] mg/dL [facility] Comment: Supplemental ranges: <140 mg/dL before meals <180 mg/dL all other times of the day Specimen Anatomical Collection Method Collection Time Receive d Time (Source) Location / / Volume Laterality Blood specimen 07/13/2016 5:09 PM 017 5:09 (specimen) EDT PM EDT Valentino Pérez MD POINT OF CARE TEST ORDERABLE S Performing Organization Address City/State/[place] [address] (ABNORMAL) POCT Glucose (07/13/2016 4:08 PM EDT) athologist Signature POC Glucose 225 (H) 65 - 199 [place] [place] mg/dL [facility] Comment: Supplemental ranges: <140 mg/dL before meals <180 mg/dL all other times of the day Specimen Anatomical Collection Method Collection Time Receive d Time (Source) Location / / Volume Laterality Blood specimen 07/13/2016 4:08 PM 017 4:08 (specimen) EDT PM EDT Valentino Pérez MD POINT OF CARE TEST ORDERABLE S Performing Organization Address City/State/ZIP Code Phon e Number [address] POCT Glucose (07/13/2016 2:11 PM EDT) athologist Signature POC Glucose 171 65 - 199 [facility] [place] mg/dL [facility] Comment: Supplemental ranges: <140 mg/dL before meals <180 mg/dL all other times of the day Specimen Anatomical Collection Method Collection Time Receive d Time (Source) Location / / Volume Laterality Blood specimen 07/13/2016 2:11 PM 017 2:11 (specimen) EDT PM EDT Valentino Pérez MD POINT OF CARE TEST ORDERABLE S Performing Organization Address City/State/[place] [address] POCT Glucose (07/13/2016 12:51 PM EDT) athologist Signature POC Glucose 133 65 - 199 [facility] [place] mg/dL [facility] Comment: Supplemental ranges: <140 mg/dL before meals <180 mg/dL all other times of the day Specimen Anatomical Collection Method Collection Time Receive d Time (Source) Location / / Volume Laterality Blood specimen 07/13/2016 12:51 7 (specimen) PM EDT 12:51 PM EDT Valentino Pérez MD POINT OF CARE TEST ORDERABLE S Performing Organization Address City/State/ZIP Code Phon e Number [address] POCT Glucose (07/13/2016 11:40 AM EDT) athologist Signature POC Glucose 118 65 - 199 [place] [place] mg/dL [facility] Comment: Supplemental ranges: <140 mg/dL before meals <180 mg/dL all other times of the day Specimen Anatomical Collection Method Collection Time Receive d Time (Source) Location / / Volume Laterality Blood specimen 07/13/2016 11:40 7 (specimen) AM EDT 11:40 AM EDT Valentino Pérez MD POINT OF CARE TEST ORDERABLE S Performing Organization Address City/State/ZIP Code Phon e Number [address] POCT Glucose (07/13/2016 10:29 AM EDT) athologist Signature POC Glucose 126 65 - 199 [place] [place] mg/dL [facility] Comment: Supplemental ranges: <140 mg/dL before meals <180 mg/dL all other times of the day Specimen Anatomical Collection Method Collection Time Receive d Time (Source) Location / / Volume Laterality Blood specimen 07/13/2016 10:29 7 (specimen) AM EDT 10:29 AM EDT Valentino Pérez MD POINT OF CARE TEST ORDERABLE S Performing Organization Address City/State/ZIP Code Phon e Number [address] POCT Glucose (07/13/2016 9:55 AM EDT) athologist Signature POC Glucose 113 65 - 199 [facility] [place] mg/dL [facility] Comment: Supplemental ranges: <140 mg/dL before meals <180 mg/dL all other times of the day Specimen Anatomical Collection Method Collection Time Receive d Time (Source) Location / / Volume Laterality Blood specimen 07/13/2016 9:55 AM 017 9:55 (specimen) EDT AM EDT Valentino Pérez MD POINT OF CARE TEST ORDERABLE S Performing Organization Address City/[facility]/ZIP Code Phon e Number [address] POCT Glucose (07/13/2016 9:13 AM EDT) P athologist Signature POC Glucose 136 65 - 199 [facility] mg/dL [facility] Comment: Supplemental ranges: <140 mg/dL before meals <180 mg/dL all other times of the day Specimen Anatomical Collection Method Collection Time Receive d Time (Source) Location / / Volume Laterality Blood specimen 07/13/2016 9:13 AM 017 9:13 (specimen) EDT AM EDT Valentino Pérez MD POINT OF CARE TEST ORDERABLE S Performing Organization Address City/[facility]/ZIP Code Phon e Number [address] EKG 12 Lead (07/13/2016 7:32 AM EDT) Component Value Ref Range Test Analysis Performed Pathologis t Method Time At Signature Ventricular rate 122 BPM MUSE SYSTEM Atrial Rate 122 BPM MUSE SYSTEM P-R Interval 130 ms MUSE SYSTEM QRS Duration 92 ms MUSE SYSTEM Q-T Interval 342 ms MUSE SYSTEM QTC Calculated 487 ms MUSE SYSTEM (Bezet) Calculated P Reinbeck 65 degrees MUSE SYSTEM Calculated R Reinbeck 52 degrees MUSE SYSTEM Calculated T Reinbeck 22 degrees MUSE SYSTEM INTERPRETATION Sinus tachycardia [...] 172 65 - 199 [facility] [place] mg/dL [facility] Comment: Supplemental ranges: <140 mg/dL before meals <180 mg/dL all other times of the day Specimen Anatomical Collection Method Collection Time Receive d Time (Source) Location / / Volume Laterality Blood specimen 07/13/2016 7:31 AM 017 7:31 (specimen) EDT AM EDT Valentino Pérez MD POINT OF CARE TEST ORDERABLE S Performing Organization Address City/State/ZIP Code Phon e Number [address] POCT Glucose (07/13/2016 7:05 AM EDT) athologist Signature POC Glucose 181 65 - 199 [facility] AF[place] mg/dL [facility] Comment: Supplemental ranges: <140 mg/dL before meals <180 mg/dL all other times of the day Specimen Anatomical Collection Method Collection Time Receive d Time (Source) Location / / Volume Laterality Blood specimen 07/13/2016 7:05 AM 017 7:05 (specimen) EDT AM EDT Valentino Pérez MD POINT OF CARE TEST ORDERABLE S Performing Organization Address City/State/[place] [address] POCT Glucose (07/13/2016 6:10 AM EDT) athologist Signature POC Glucose 178 65 - 199 [facility] [place] mg/dL [facility] Comment: Supplemental ranges: <140 mg/dL before meals <180 mg/dL all other times of the day Specimen Anatomical Collection Method Collection Time Receive d Time (Source) Location / / Volume Laterality Blood specimen 07/13/2016 6:10 AM 017 6:10 (specimen) EDT AM EDT Valentino Pérez MD POINT OF CARE TEST ORDERABLE S Performing Organization Address City/State/[place] [address] (ABNORMAL) POCT Glucose (07/13/2016 5:13 AM EDT) athologist Signature POC Glucose 208 (H) 65 - 199 [facility] [place] mg/dL [facility] Comment: Supplemental ranges: <140 mg/dL before meals <180 mg/dL all other times of the day Specimen Anatomical Collection Method Collection Time Receive d Time (Source) Location / / Volume Laterality Blood specimen 07/13/2016 5:13 AM 017 5:13 (specimen) EDT AM EDT Valentino Pérez MD POINT OF CARE TEST ORDERABLE S Performing Organization Address City/State/ZIP Code Phon e Number [address] POCT Glucose (07/13/2016 4:15 AM EDT) athologist [facility] POC Glucose 182 65 - 199 [facility]/dL [facility] Comment: Supplemental ranges: <140 mg/dL before meals <180 mg/dL all other times of the day Specimen Anatomical Collection Method Collection Time Receive d Time (Source) Location / / Volume Laterality Blood specimen 07/13/2016 4:15 AM 017 4:15 (specimen) EDT AM EDT Valentino Pérez MD POINT OF CARE TEST ORDERABLE S Performing Organization Address City/State/ZIP Code Phon e Number [address] (ABNORMAL) Differential, Automated (07/13/2016 4:10 AM EDT) [facility] gist Method Time Signature Neutrophils % 76.6 % [facility] LABORATORY Neutr Abs (ANC) 7.52 (H) 1.70 - [facility] 6.10 [facility] x10(3)/[facility] LABORATORY Lymphocytes % 15.4 % [facility] Lymphocytes Abs 1.5 0.9 - 3.2 [facility] x10(3)/[facility] LABORATORY Monocytes % 7.6 % [facility] Monocyte Abs 0.8 0.3 - 0.9 [facility] x10(3)/[facility] LABORATORY Eosinophils % 0.0 % [facility] Eosinophils Abs 0.0 0.0 - 0.4 [facility] x10(3)/[facility] LABORATORY Basophils % 0.1 % [facility] Basophils Abs 0.0 0.0 - 0.1 [facility] x10(3)/[facility] LABORATORY Immature Gran % 0.30 % [facility]ORAT[facility] Comment: Immature granulocytes(IG's)percentage an d absolute count will include metamyelocytes, myelocytes, and promyelo cytes. Blood smears from CBCs yielding IG's will be scanned manually for concor dance. If this scan disagrees with the automated IG or if promyelocytes are not ed, a manual differential will be performed. Madhuri Gran Abs 0.03 0.00 - 0.04 x10(3)/[facility] LABORATORY Specimen Anatomical Collection Method Collection Time Receive d Time (Source) Location / / Volume Laterality Blood specimen 07/13/2016 4:10 AM 017 4:33 (specimen) EDT AM EDT Resulting Agency Comment Spec In Lab Valentino Pérez MD HEMATOLOGY ORDERABLES Performing Organization Address City/State/[place] [address] (ABNORMAL) Hemogram (07/13/2016 4:10 AM EDT) Analysis Performed At Patho logist Time Signature WBC 9.8 (H) 4.0 - 9.5 [facility] x10(3)/[facility] LABORATORY RBC 3.44 (L) 4.58 - [facility] 5.54 [facility] x10(6)/[facility] LABORATORY Hemoglobin 10.2 (L) 13.7 - [facility] 16.5 gm/dL [facility] Hematocrit 31.1 (L) 40.5 - [facility] 48.5 % [facility] MCV 90.4 82.9 - [facility] 93.1 fL [facility] MCH 29.7 27.5 - [facility] 32.1 pg [facility] MCHC 32.8 32.0 - [facility] 35.[facility] gm/dL [facility] Platelets 136 (L) 145 - 357 [facility] x10(3)/[facility] LABORATORY RDWSD 43.7 36.0 - [facility] 45.0 [facility] LABORATORY RDWCV 13.2 11.4 - [facility] 13.8 % [facility] LABORATORY MPV 11.0 7.6 - 12.9 [facility] LABORATORY nRBC % Auto 0.0 % [facility]OR[facility] nRBC Abs Auto 0.000 0.000 - [facility] 0.000 [facility] x10(3)/[facility] LABORATORY Specimen Anatomical Collection Method Collection Time Receive d Time (Source) Location / / Volume Laterality Blood specimen 07/13/2016 4:10 AM 017 4:33 (specimen) EDT AM EDT Resulting Agency Comment Spec In Lab Valentino Pérez MD HEMATOLOGY ORDERABLES Performing Organization Address City/[facility]/[place] [address] Electrolytes panel (07/13/2016 4:10 AM EDT) athologist Signature Sodium 140 135 - 145 [facility] mmol/L [facility]ORATORY Potassium 4.2 3.5 - 5.0 [facility] mmol/L [facility] Comment: Please note: ??Patients with WBC >100,00 0 may have falsely elevated Potassium levels. ??For accurate Potassium quantif ication in these patients send serum separator tube (gold top) for subsequent determinations. ??Contact the Clinical Chemistry Laboratory if there are any qu estions. Chloride 105 98 - 107 mmol/L [facility] CO2 22 22 - 31 mmol/L [facility] Anion Gap 13 5 - 15 mmol/L [facility] LABORATORY Specimen Anatomical Collection Method Collection Time Receive d Time (Source) Location / / Volume Laterality Blood specimen 07/13/2016 4:10 AM 017 4:34 (specimen) EDT AM EDT Resulting Agency Comment Spec In Lab Valentino Pérez MD CHEMISTRY ORDERABLES Performing Organization Address City/[facility]/[place] [address] (ABNORMAL) Cardiac Enzymes (07/13/2016 4:10 AM EDT) athologist Signature Troponin-T 1.28 (H) <=0.03 [facility] ng/mL [facility] Comment: 0.03 ng/mL: Represents the [...] consensus document of the Joint Society of Cardiology/[place] [employer] f [employer] Committee for the redefinition of myocardial infarction. ? ?Journal of the [place] College of [employer] 2000; 36: 959-969] CK, Total 740 (H) 0 - 200 unit/L [facility]OR[facility] Specimen Anatomical Collection Method Collection Time Receive d Time (Source) Location / / Volume Laterality Blood specimen 07/13/2016 4:10 AM 017 4:33 (specimen) EDT AM EDT Resulting Agency Comment Spec In Lab Valentino Pérez MD CHEMISTRY ORDERABLES Performing Organization Address City/State/[place] [address] (ABNORMAL) Glucose, fasting (07/13/2016 4:10 AM EDT) athologist Signature Glucose 200 (H) 65 - 99 [facility] Fasting mg/dL [facility] Comment: ?Fasting* Glucose Interpretive C [...] of Diabetes Mellitus, Position Statement from the [place] [employer]. ??Diabete s Care, Volume 33, Supplement 1, Apr 2009 Specimen Anatomical Collection Method Collection Time Receive d Time (Source) Location / / Volume Laterality Blood specimen 07/13/2016 4:10 AM 017 4:33 (specimen) EDT AM EDT Resulting Agency Comment Spec In Lab Valentino Pérez MD CHEMISTRY ORDERABLES Performing Organization Address City/State/[place] [address] (ABNORMAL) Creatinine (07/13/2016 4:10 AM EDT) athologist Signature Creatinine 0.61 (L) 0.80 - [facility] 1.50 mg/dL [facility] Comment: Please note that the pediatric reference intervals supplied above were not validated at [facility]. Results from pediatri c patients should be interpreted in conjunction to the patient's age, height and muscle mass. Estimated GFR >60 >=60 [facility] LABORATORY Comment: This estimated GFR (eGFR) [...] the following links into your internet browser. [email or web address] Specimen Anatomical Collection Method Collection Time Receive d Time (Source) Location / / Volume Laterality Blood specimen 07/13/2016 4:10 AM 017 4:33 (specimen) EDT AM EDT Resulting Agency Comment Spec In Lab Valentino Pérez MD CHEMISTRY ORDERABLES Performing Organization Address City/State/[place] [address] BUN (07/13/2016 4:10 AM EDT) P athologist Signature BUN 12 10 - 20 [facility] mg/dL [facility] Specimen Anatomical Collection Method Collection Time Receive d Time (Source) Location / / Volume Laterality Blood specimen 07/13/2016 4:10 AM 017 4:33 (specimen) EDT AM EDT Resulting Agency Comment Spec In Lab Valentino Pérez MD CHEMISTRY ORDERABLES Performing Organization Address City/[facility]/ZIP Code Phon e Number [address] POCT Glucose (07/13/2016 2:50 AM EDT) athologist Signature POC Glucose 158 65 - 199 [facility] [place] mg/dL [facility] Comment: Supplemental ranges: <140 mg/dL before meals <180 mg/dL all other times of the day Specimen Anatomical Collection Method Collection Time Receive d Time (Source) Location / / Volume Laterality Blood specimen 07/13/2016 2:50 AM 017 2:50 (specimen) EDT AM EDT Valentino Pérez MD POINT OF CARE TEST ORDERABLE S Performing Organization Address City/[facility]/[place] [address] POCT Glucose (07/13/2016 2:02 AM EDT) athologist Signature POC Glucose 138 65 - 199 [facility] [place] mg/dL [facility] Comment: Supplemental ranges: <140 mg/dL before meals <180 mg/dL all other times of the day Specimen Anatomical Collection Method Collection Time Receive d Time (Source) Location / / Volume Laterality Blood specimen 07/13/2016 2:02 AM 017 2:02 (specimen) EDT AM EDT Valentino Pérez MD POINT OF CARE TEST ORDERABLE S Performing Organization Address City/State/[place] [address] POCT Glucose (07/13/2016 1:12 AM EDT) P athologist Signature POC Glucose 168 65 - 199 [facility] Comment: Supplemental ranges: <140 mg/dL before meals <180 mg/dL all other times of the day Specimen Anatomical Collection Method Collection Time Receive d Time (Source) Location / / Volume Laterality Blood specimen 07/13/2016 1:12 AM 017 1:12 (specimen) EDT AM EDT Valentino Pérez MD POINT OF CARE TEST ORDERABLE S Performing Organization Address City/State/ZIP Code Phon e Number [address] POCT Glucose (07/12/2016 11:56 PM EDT) athologist Signature POC Glucose 141 65 - 199 [facility] mg/dL [facility] Comment: Supplemental ranges: <140 mg/dL before meals <180 mg/dL all other times of the day Specimen Anatomical Collection Method Collection Time Receive d Time (Source) Location / / Volume Laterality Blood specimen 07/12/2016 11:56 7 (specimen) PM EDT 11:56 PM EDT Valentino Pérez MD POINT OF CARE TEST ORDERABLE S Performing Organization Address City/State/[place] [address] (ABNORMAL) BLOOD GAS 2 ARTERIAL (07/12/2016 10:47 PM EDT) Analysis Performed At Patho logist Time Signature pH Art 7.42 7.35 - [facility] 7.45 [facility] LABORATORY pCO2 Art 33 (L) 35 - 45 [facility] LABORATORY pO2 Art 84 (L) 85 - 104 [facility] LABORATORY HCO3 Art 20.8 20.0 - [facility] 26.0 [facility] mmol/[facility] BE Art -3.6 (L) -3.0 - 3.0 [facility] mmol/L [facility]OR[facility] Hgb Blood Gas 11.2 (L) 13.7 - [facility] 16.5 gm/dL [facility] O2HB Art 95.1 94.0 - [facility] 97.0 % [facility] LABORATORY COHB Art 0.1 % [facility] Comment: Nonsmokers: 0.5-1.5% COHB Smokers: Variable, but usually less than 10% Toxic: 20-30% COHB Lethal: Greater than 60% COHB METHB Art 0.7 <=1.5 % [facility] LABORATORY Na Whole Blood 139 135 - 145 mmol/L [facility] K Whole Blood 3.7 3.5 - 5.0 mmol/L [facility] Comment: Please note: Patients with WBC >100,000 may have falsely elevated Potassium levels. Contact the Clinical Chemistry L aboratory if there are any questions. ICa Whole Blood 1.10 (L) 1.15 - 1.33 mmol/L [facility] Comment: Note: ??Total bilirubin higher than 20 m g/dL may lead to falsely low ionized calcium. CL Whole Blood 112 (H) 98 - 107 mmol/L [facility] Gluc Whole Bld 147 65 - 199 mg/dL [facility] Comment: Diabetes: >=200 mg/dL plus symp toms. Lactate WB 0.9 0.5 - 2.2 mmol/L [facility] FIO2 Art 40 % [facility] PF Ratio Art 210 [facility] Temp Art 37.0 Celsius [facility] Specimen Anatomical Collection Method Collection Time Receive d Time (Source) Location / / Volume Laterality Blood specimen 07/12/2016 10:47 7 (specimen) PM EDT 10:47 PM EDT Valentino Pérez MD CHEMISTRY ORDERABLES Performing Organization Address City/State/[place] [address] POCT Glucose (07/12/2016 10:47 PM EDT) athologist Signature POC Glucose 162 65 - 199 [facility] mg/dL [facility] Comment: Supplemental ranges: <140 mg/dL before meals <180 mg/dL all other times of the day Specimen Anatomical Collection Method Collection Time Receive d Time (Source) Location / / Volume Laterality Blood specimen 07/12/2016 10:47 7 (specimen) PM EDT 10:47 PM EDT Valentino Pérez MD POINT OF CARE TEST ORDERABLE S Performing Organization Address City/State/ZIP Code Phon e Number [address] POCT Glucose (07/12/2016 10:05 PM EDT) athologist Signature POC Glucose 141 65 - 199 [facility] mg/dL [facility] Comment: Supplemental ranges: <140 mg/dL before meals <180 mg/dL all other times of the day Specimen Anatomical Collection Method Collection Time Receive d Time (Source) Location / / Volume Laterality Blood specimen 07/12/2016 10:05 7 (specimen) PM EDT 10:05 PM EDT Valentino Pérez MD POINT OF CARE TEST ORDERABLE S Performing Organization Address City/[facility]/ZIP Code Phon e Number [address] POCT Glucose (07/12/2016 8:57 PM EDT) athologist Signature POC Glucose 171 65 - 199 [facility] mg/dL [facility] Comment: Supplemental ranges: <140 mg/dL before meals <180 mg/dL all other times of the day Specimen Anatomical Collection Method Collection Time Receive d Time (Source) Location / / Volume Laterality Blood specimen 07/12/2016 8:57 PM 017 8:57 (specimen) EDT PM EDT Valentino Pérez MD POINT OF CARE TEST ORDERABLE S Performing Organization Address City/State/[place] [address] (ABNORMAL) Hemoglobin (07/12/2016 8:55 PM EDT) athologist Signature Hemoglobin 11.1 (L) 13.7 - [facility] 16.5 gm/dL [facility] Specimen Anatomical Collection Method Collection Time Receive d Time (Source) Location / / Volume Laterality Blood specimen 07/12/2016 8:55 PM 017 9:04 (specimen) EDT PM EDT Resulting Agency Comment Spec In Lab Valentino Pérez MD HEMATOLOGY ORDERABLES Performing Organization Address City/[facility]/[place] [address] Potassium (07/12/2016 8:55 PM EDT) athologist Signature Potassium 4.1 3.5 - 5.0 [facility] mmol/L [facility] Comment: Please note: ??Patients with [...] Performing Organization Address City/[facility]/[place] [address] POCT Glucose (07/12/2016 7:45 PM EDT) athologist Signature POC Glucose 172 65 - 199 [facility]dL [facility] Comment: Supplemental ranges: <140 mg/dL before meals <180 mg/dL all other times of the day Specimen Anatomical Collection Method Collection Time Receive d Time (Source) Location / / Volume Laterality Blood specimen 07/12/2016 7:45 PM 017 7:45 (specimen) EDT PM EDT Valentino Pérez MD POINT OF CARE TEST ORDERABLE S Performing Organization Address City/[facility]/[place] [address] (ABNORMAL) BLOOD GAS 2 ARTERIAL (07/12/2016 7:07 PM EDT) Analysis Performed At Patho logist Time Signature pH Art 7.38 7.35 - [facility] 7.45 [facility] pCO2 Art 38 35 - 45 [facility]ORY pO2 Art 106 (H) 85 - 104 [facility]ORY HCO3 Art 22.0 20.0 - [facility] 26.0 [facility] mmol/L [facility] BE Art -3.1 (L) -3.0 - 3.0 [facility] mmol/L [facility] Hgb Blood Gas 12.4 (L) 13.7 - [facility] 16.5 gm/dL [facility] O2HB Art 96.7 94.0 - [facility] 97.0 % [facility] COHB Art 0.2 % [facility] Comment: Nonsmokers: 0.5-1.5% COHB Smokers: Variable, but usually less than 10% Toxic: 20-30% COHB Lethal: Greater than 60% COHB METHB Art 0.6 <=1.5 % [facility] Na Whole Blood 136 135 - 145 mmol/L [facility] K Whole Blood 4.0 3.5 - 5.0 mmol/L [facility] Comment: Please note: Patients with WBC >100,000 may have falsely elevated Potassium levels. Contact the Clinical Chemistry L aboratory if there are any questions. ICa Whole Blood 1.15 (L) 1.15 - 1.33 mmol/L [facility] Comment: Note: ??Total bilirubin higher than 20 m g/dL may lead to falsely low ionized calcium. CL Whole Blood 109 (H) 98 - 107 mmol/L [facility] Gluc Whole Bld 185 65 - 199 mg/dL [facility] Comment: Diabetes: >=200 mg/dL plus symp toms. Lactate WB 1.0 0.5 - 2.2 mmol/L [facility] FIO2 Art 60 % [facility] PF Ratio Art 177 [facility] Specimen Anatomical Collection Method Collection Time Receive d Time (Source) Location / / Volume Laterality Blood specimen 07/12/2016 7:07 PM 017 7:07 (specimen) EDT PM EDT Valentino Pérez MD CHEMISTRY ORDERABLES Performing Organization Address City/State/[place] [address] XR Chest PA or [...] internal jugular central venous ca theter with Newell-Vika catheter tip projected in the right main [...] internal jugular central venous ca theter with Newell-Vika catheter tip projected in the right main [...] 454 ms MUSE SYSTEM (Bezet) Calculated P Reinbeck 74 degrees MUSE SYSTEM Calculated R Reinbeck 68 degrees MUSE SYSTEM Calculated T Reinbeck 32 degrees MUSE SYSTEM INTERPRETATION Normal sinus rhythm MUSE SYSTEM Nonspecific ST and T wave abnormality Abnormal ECG When compared with ECG of 16-MAR-2017 20:03, Nonspecific T wave abnormality no longer [...] Time Signature pH Art 7.40 7.35 - [facility] 7.45 [facility] pCO2 Art 40 35 - 45 [facility] LABORATORY pO2 Art 106 (H) 85 - 104 [facility] LAB[facility]ATORY HCO3 Art 24.0 20.0 - [facility] 26.0 [facility] mmol/L [facility] BE Art -0.7 -3.0 - 3.0 [facility] mmol/L [facility] Hgb Blood Gas 12.4 (L) 13.7 - [facility] 16.5 gm/dL [facility] O2HB Art 96.5 94.0 - [facility] 97.0 % [facility] COHB Art 0.2 % [facility] Comment: Nonsmokers: 0.5-1.5% COHB Smokers: Variable, but usually less than 10% Toxic: 20-30% COHB Lethal: Greater than 60% COHB METHB Art 0.7 <=1.5 % [facility] Na Whole Blood 137 135 - 145 mmol/L [facility] K Whole Blood 4.1 3.5 - 5.0 mmol/L [facility] Comment: Please note: Patients with WBC >100,000 may have falsely elevated Potassium levels. Contact the Clinical Chemistry L aboratory if there are any questions. ICa Whole Blood 1.18 1.15 - 1.33 mmol/L [facility] Comment: Note: ??Total bilirubin higher than 20 m g/dL may lead to falsely low ionized calcium. CL Whole Blood 110 (H) 98 - 107 mmol/L [facility] Gluc Whole Bld 197 65 - 199 mg/dL [facility] Comment: Diabetes: >=200 mg/dL plus symp toms. Lactate WB 1.0 0.5 - 2.2 mmol/L [facility] FIO2 Art 100 % [facility] PF Ratio Art 106 [facility] Specimen Anatomical Collection Method Collection Time Receive d Time (Source) Location / / Volume Laterality Blood specimen 07/12/2016 5:31 PM 017 5:31 (specimen) EDT PM EDT Valentino Pérez MD CHEMISTRY ORDERABLES Performing Organization Address City/State/[place] [address] (ABNORMAL) BLOOD GAS 2 ARTERIAL (07/12/2016 3:58 PM EDT) Analysis Performed At Patho logist Time Signature pH Art 7.32 (L) 7.35 - [facility] 7.45 [facility] pCO2 Art 48 (H) 35 - 45 [facility] LABORATORY pO2 Art 72 (L) 85 - 104 [facility] LABORATORY HCO3 Art 24.2 20.0 - [facility] 26.0 [facility] mmol/[facility] BE Art -1.9 -3.0 - 3.0 [facility] mmol/L [facility] Hgb Blood Gas 10.1 (L) 13.7 - [facility] 16.5 gm/dL [facility] O2HB Art 92.3 (L) 94.0 - [facility] 97.0 % [facility] COHB Art 0.6 % [facility] Comment: Nonsmokers: 0.5-1.5% COHB Smokers: Variable, but usually less than 10% Toxic: 20-30% COHB Lethal: Greater than 60% COHB METHB Art 0.3 <=1.5 % [facility] Na Whole Blood 134 (L) 135 - 145 mmol/L [facility] K Whole Blood 3.8 3.5 - 5.0 mmol/L [facility] Comment: Please note: Patients with WBC >100,000 may have falsely elevated Potassium levels. Contact the Clinical Chemistry L aboratory if there are any questions. ICa Whole Blood 1.26 1.15 - 1.33 mmol/L [facility] Comment: Note: ??Total bilirubin higher than 20 m g/dL may lead to falsely low ionized calcium. CL Whole Blood 106 98 - 107 mmol/L [facility] Gluc Whole Bld 266 (H) 65 - 199 mg/dL [facility] Comment: Diabetes: >=200 mg/dL plus symp toms. Lactate WB 2.3 (H) 0.5 - 2.2 mmol/L [facility] Specimen Anatomical Collection Method Collection Time Receive d Time (Source) Location / / Volume Laterality Blood specimen Arterial Draw / 07/12/2016 3:58 PM 06/24 4:47 (specimen) Unknown EDT PM EDT Resulting Agency Comment Spec In Lab Valentino Pérez MD CHEMISTRY ORDERABLES Performing Organization Address City/[facility]/ZIP Code Phon e Number [address] Scan, Peripheral Blood (07/12/2016 3:50 PM EDT) [facility] Aductions Method Time Signature Plat Estimate Decreased [facility] RBC Morphology Normal [facility] Specimen Anatomical Collection Method Collection Time Receive d Time (Source) Location / / Volume Laterality Blood specimen 07/12/2016 3:50 PM 017 4:03 (specimen) EDT PM EDT Resulting Agency Comment Spec In Lab Rolf Zayas MD HEMATOLOGY ORDERABLES Performing Organization Address City/State/[place] [address] (ABNORMAL) Differential, Automated (07/12/2016 3:50 PM EDT) [facility] Aductions Method Time Signature Neutrophils % 73.2 % [facility] Neutr Abs (ANC) 8.05 (H) 1.70 - [facility] 6.10 [facility] x10(3)/[facility] LABORATORY Lymphocytes % 22.6 % [facility] Lymphocytes Abs 2.5 0.9 - 3.2 [facility] x10(3)/[facility] LABORATORY Monocytes % 2.3 % [facility] Monocyte Abs 0.2 (L) 0.3 - 0.9 [facility] x10(3)/[facility] LABORATORY Eosinophils % 0.7 % [facility] Eosinophils Abs 0.1 0.0 - 0.4 [facility] x10(3)/[facility] LABORATORY Basophils % 0.2 % [facility] Basophils Abs 0.0 0.0 - 0.1 [facility] x10(3)/[facility] LABORATORY Immature Gran % 1.00 % [facility] Comment: Immature granulocytes(IG's)percentage an d absolute count will include metamyelocytes, myelocytes, and promyelo cytes. Blood smears from CBCs yielding IG's will be scanned manually for concor dance. If this scan disagrees with the automated IG or if promyelocytes are not ed, a manual differential will be performed. Madhuri Gran Abs 0.11 (H) 0.00 - 0.04 x10(3)/[facility] LABORATORY Specimen Anatomical Collection Method Collection Time Receive d Time (Source) Location / / Volume Laterality Blood specimen 07/12/2016 3:50 PM 017 4:03 (specimen) EDT PM EDT Resulting Agency Comment Spec In Lab Rolf Zayas MD HEMATOLOGY ORDERABLES Performing Organization Address City/State/[place] [address] (ABNORMAL) Hemogram (07/12/2016 3:50 PM EDT) P athologist Signature WBC 11.0 (H) 4.0 - 9.5 [facility] x10(3)/[facility] LABORATORY Comment: These results were called to Pascale myles by Pilar Calhoun on 07-12-2016 at 1611; and were read back. RBC 2.94 (L) 4.58 - 5.54 x10(6)/[facility] LABORATORY Hemoglobin 9.1 (L) 13.7 - 16.5 gm/dL [facility] Hematocrit 27.5 (L) 40.5 - 48.5 % [facility] Comment: This result has been called to PASCALE MEI by Pilar Robles on 07 12 2016 at 1811, and has been read back. MCV 93.5 (H) 82.9 - 93.1 fL [facility] MCH 31.0 27.5 - 32.1 pg [facility] MCHC 33.1 32.0 - 35.7 gm/dL [facility] Platelets 124 (L) 145 - 357 x10(3)/[facility] LABORATORY RDWSD 44.7 36.0 - 45.0 [facility] LABORATORY RDWCV 13.0 11.4 - 13.8 % [facility] MPV 11.7 7.6 - 12.9 [facility] LABORATORY nRBC % Auto 0.0 % [facility] nRBC Abs Auto 0.000 0.000 - 0.000 x10(3)/[facility] LABORATORY Specimen Anatomical Collection Method Collection Time Receive d Time (Source) Location / / Volume Laterality Blood specimen 07/12/2016 3:50 PM 017 4:03 (specimen) EDT PM EDT Resulting Agency Comment Spec In Lab Rolf Zayas MD HEMATOLOGY ORDERABLES Performing Organization Address City/State/[place] [address] Thrombin time (07/12/2016 3:50 PM EDT) athologist Signature Thrombin Time 18 15 - 20 [facility] LAB[facility]ATORY Comment: A prolongation in the [...] Performing Organization Address City/[facility]/[place] [address] APTT (07/12/2016 3:50 PM EDT) P athologist Signature PTT 29 25 - 35 sec [facility] Comment: The recommended therapeutic range for fu ll dose, unfractionated heparin at [facility] is 80 ? 114 seconds. The use [...] Performing Organization Address City/[facility]/[place] [address] (ABNORMAL) Prothrombin Time (07/12/2016 3:50 PM EDT) P athologist Signature PT 17.5 (H) 12.0 - 15.0 [facility]ORY Comment: An INR <2.0 indicates [...] circumstances. INR 1.4 (H) 0.9 - 1.1 [facility] Specimen Anatomical Collection Method Collection Time Receive d Time (Source) Location / / Volume Laterality Blood specimen 07/12/2016 3:50 PM 017 4:03 (specimen) EDT PM EDT Resulting Agency Comment Spec In Lab Rolf Zayas MD HEMATOLOGY ORDERABLES Performing Organization Address City/[facility]/[place] [address] Fibrinogen (07/12/2016 3:50 PM EDT) P athologist Signature Fibrinogen 365 180 - 510 [facility] mg/dL [facility] Comment: A fibrinogen level >100 [...] Performing Organization Address City/[facility]/[place] [address] (ABNORMAL) BLOOD GAS 2 ARTERIAL (07/12/2016 3:01 PM EDT) Analysis Performed At Patho logist Time Signature pH Art 7.37 7.35 - [facility] 7.45 [facility] pCO2 Art 41 35 - 45 [facility] mmHg [facility] pO2 Art 199 (H) 85 - 104 [facility] mmHg [facility] HCO3 Art 23.1 20.0 - [facility] 26.0 [facility] mmol/L [facility] BE Art -2.1 -3.0 - 3.0 [facility] mmol/L [facility] Hgb Blood Gas 9.7 (L) 13.7 - [facility] 16.5 gm/dL [facility] O2HB Art 98.5 (H) 94.0 - [facility] 97.0 % [facility] COHB Art 0.5 % [facility] Comment: Nonsmokers: 0.5-1.5% COHB Smokers: Variable, but usually less than 10% Toxic: 20-30% COHB Lethal: Greater than 60% COHB METHB Art 0.3 <=1.5 % [facility] Na Whole Blood 130 (L) 135 - 145 mmol/L [facility] K Whole Blood 4.7 3.5 - 5.0 mmol/L [facility] Comment: Please note: Patients with WBC >100,000 may have falsely elevated Potassium levels. Contact the Clinical Chemistry L aboratory if there are any questions. ICa Whole Blood 1.01 (L) 1.15 - 1.33 mmol/L [facility] Comment: Note: ??Total bilirubin higher than 20 m g/dL may lead to falsely low ionized calcium. CL Whole Blood 105 98 - 107 mmol/L [facility] Gluc Whole Bld 337 (H) 65 - 199 mg/dL [facility] Comment: Diabetes: >=200 mg/dL plus symp toms. Lactate WB 1.5 0.5 - 2.2 mmol/L [facility] Specimen Anatomical Collection Method Collection Time Receive d Time (Source) Location / / Volume Laterality Blood specimen 07/12/2016 3:01 PM 017 3:01 (specimen) EDT PM EDT Rolf Zayas MD CHEMISTRY ORDERABLES Performing Organization Address City/State/[place] [address] (ABNORMAL) BLOOD GAS 2 ARTERIAL (07/12/2016 2:43 PM EDT) [facility] gist Method Time Signature pH Art 7.29 7.35 - [facility] (Critical) 7.45 [facility] pCO2 Art 48 (H) 35 - 45 [facility] mmHg [facility] pO2 Art 194 (H) 85 - 104 [facility] mmHg [facility] HCO3 Art 22.6 20.0 - [facility] 26.0 [facility] mmol/L [facility] BE Art -3.9 (L) -3.0 - 3.0 [facility] mmol/L [facility] Hgb Blood Gas 9.9 (L) 13.7 - [facility] 16.5 gm/dL [facility] O2HB Art 98.6 (H) 94.0 - [facility] 97.0 % [facility] COHB Art 0.2 % [facility] Comment: Nonsmokers: 0.5-1.5% COHB Smokers: Variable, but usually less than 10% Toxic: 20-30% COHB Lethal: Greater than 60% COHB METHB Art 0.3 <=1.5 % [facility] Na Whole Blood 130 (L) 135 - 145 mmol/L [facility] K Whole Blood 4.5 3.5 - 5.0 mmol/L [facility] Comment: Please note: Patients with WBC >100,000 may have falsely elevated Potassium levels. Contact the Clinical Chemistry L aboratory if there are any questions. ICa Whole Blood 1.04 (L) 1.15 - 1.33 mmol/L [facility] Comment: Note: ??Total bilirubin higher than 20 m g/dL may lead to falsely low ionized calcium. CL Whole Blood 102 98 - 107 mmol/L [facility] Gluc Whole Bld 326 (H) 65 - 199 mg/dL [facility] Comment: Diabetes: >=200 mg/dL plus symp toms. Lactate WB 1.2 0.5 - 2.2 mmol/L [facility] Specimen Anatomical Collection Method Collection Time Receive d Time (Source) Location / / Volume Laterality Blood specimen 07/12/2016 2:43 PM 017 2:43 (specimen) EDT PM EDT Rolf Zayas MD CHEMISTRY ORDERABLES Performing Organization Address City/State/[place] [address] (ABNORMAL) BLOOD GAS 2 ARTERIAL (07/12/2016 2:34 PM EDT) Analysis Performed At Patho logist Time Signature pH Art 7.31 (L) 7.35 - [facility] 7.45 [facility] pCO2 Art 44 35 - 45 [facility] LABORATORY pO2 Art 231 (H) 85 - 104 [facility] LABORATORY HCO3 Art 21.9 20.0 - [facility] 26.0 [facility] mmol/L [facility] BE Art -4.4 (L) -3.0 - 3.0 [facility] mmol/L [facility] Hgb Blood Gas 9.6 (L) 13.7 - [facility] 16.5 gm/dL [facility] O2HB Art 98.9 (H) 94.0 - [facility] 97.0 % [facility] COHB Art 0.2 % [facility] Comment: Nonsmokers: 0.5-1.5% COHB Smokers: Variable, but usually less than 10% Toxic: 20-30% COHB Lethal: Greater than 60% COHB METHB Art 0.3 <=1.5 % [facility] Na Whole Blood 129 (L) 135 - 145 mmol/L [facility] K Whole Blood 4.7 3.5 - 5.0 mmol/L [facility] Comment: Please note: Patients with WBC >100,000 may have falsely elevated Potassium levels. Contact the Clinical Chemistry L aboratory if there are any questions. ICa Whole Blood 0.98 (L) 1.15 - 1.33 mmol/L [facility] Comment: Note: ??Total bilirubin higher than 20 m g/dL may lead to falsely low ionized calcium. CL Whole Blood 101 98 - 107 mmol/L [facility] Gluc Whole Bld 355 (H) 65 - 199 mg/dL [facility] Comment: Diabetes: >=200 mg/dL plus symp toms. Lactate WB 1.1 0.5 - 2.2 mmol/L [facility] Specimen Anatomical Collection Method Collection Time Receive d Time (Source) Location / / Volume Laterality Blood specimen 07/12/2016 2:34 PM 017 2:34 (specimen) EDT PM EDT Rolf Zayas MD CHEMISTRY ORDERABLES Performing Organization Address City/State/[place] [address] Platelet count (07/12/2016 2:30 PM EDT) athologist Signature Platelets 172 145 - 357 [facility] x10(3)/[facility] Plat Immature 5.6 0.0 - 7.4 JW OREILLY % % [facility] Comment: Limitation of the Immature Platelet Frac tion (IPF)-May be less reliable when the platelet count is less than [id number]/u L due to statistical imprecision. The IPF [...] in a decreased state of production. References: [employer] The Clinical Value of the Immature Platelet Fraction (IPF) in Cell Recovery Document Number 10-1143 09/2010 [employer] The Role of the Imm ature [...] Organization Address City/State/ZIP Code Phon e Number [facility] [place] [address] (ABNORMAL) Hemoglobin and Hematocrit, blood (07/12/2016 2:30 PM EDT) P athologist Signature Hemoglobin 8.5 (L) 13.7 - 16.5 [facility] Comment: These results were called to Elio rueda by Pilar Calhoun on 07-12-2016 at 1450; and were read back.. This result h as been called to ELIO CHRISTOPHER by Pilar Robles on 07 12 2016 a t 1650, and has been read back. Hematocrit 26.0 (L) 40.5 - 48.5 % [facility] Comment: This result has been [...] Performing Organization Address City/[facility]/[place] [address] Fibrinogen (07/12/2016 2:30 PM EDT) P athologist Signature Fibrinogen 355 180 - 510 [facility] mg/dL [facility] Comment: Called by: PARK, Read [...] Performing Organization Address City/[facility]/[place] [address] (ABNORMAL) BLOOD GAS 2 ARTERIAL (07/12/2016 2:08 PM EDT) Analysis Performed At Patho logist Time Signature pH Art 7.31 (L) 7.35 - [facility] 7.45 [facility] pCO2 Art 41 35 - 45 [facility] mmHg [facility] pO2 Art 289 (H) 85 - 104 [facility] mmHg [facility] HCO3 Art 19.9 (L) 20.0 - [facility] 26.0 [facility] mmol/L [facility] BE Art -6.4 (L) -3.0 - 3.0 [facility] mmol/L [facility] Hgb Blood Gas 9.0 (L) 13.7 - [facility] 16.5 gm/dL [facility] O2HB Art 98.9 (H) 94.0 - [facility] 97.0 % [facility] COHB Art 0.2 % [facility] Comment: Nonsmokers: 0.5-1.5% COHB Smokers: Variable, but usually less than 10% Toxic: 20-30% COHB Lethal: Greater than 60% COHB METHB Art 0.3 <=1.5 % [facility] Na Whole Blood 128 (L) 135 - 145 mmol/L [facility] K Whole Blood 5.6 (H) 3.5 - 5.0 mmol/L [facility] Comment: Please note: Patients with WBC >100,000 may have falsely elevated Potassium levels. Contact the Clinical Chemistry L aboratory if there are any questions. ICa Whole Blood 0.89 (Critical) 1.15 - 1.33 mmol/L [facility] Comment: Note: ??Total bilirubin higher than 20 m g/dL may lead to falsely low ionized calcium. CL Whole Blood 99 98 - 107 mmol/L [facility] Gluc Whole Bld 313 (H) 65 - 199 mg/dL [facility] Comment: Diabetes: >=200 mg/dL plus symp toms. Lactate WB 0.9 0.5 - 2.2 mmol/L [facility] Specimen Anatomical Collection Method Collection Time Receive d Time (Source) Location / / Volume Laterality Blood specimen 07/12/2016 2:08 PM 017 2:08 (specimen) EDT PM EDT Rolf Zayas MD CHEMISTRY ORDERABLES Performing Organization Address City/State/[place] [address] (ABNORMAL) BLOOD GAS 2 ARTERIAL (07/12/2016 12:47 PM EDT) Analysis Performed At Patho logist Time Signature pH Art 7.41 7.35 - [facility] 7.45 [facility] pCO2 Art 35 35 - 45 [facility] LABORATORY pO2 Art 269 (H) 85 - 104 [facility]ORATORY HCO3 Art 21.7 20.0 - [facility] 26.0 [facility] mmol/L [facility] BE Art -2.9 -3.0 - 3.0 [facility] mmol/L [facility] Hgb Blood Gas 13.6 (L) 13.7 - [facility] 16.5 gm/dL [facility] O2HB Art 98.7 (H) 94.0 - [facility] 97.0 % [facility] COHB Art 0.7 % [facility] Comment: Nonsmokers: 0.5-1.5% COHB Smokers: Variable, but usually less than 10% Toxic: 20-30% COHB Lethal: Greater than 60% COHB METHB Art 0.1 <=1.5 % [facility] Na Whole Blood 140 135 - 145 mmol/L [facility] K Whole Blood 4.1 3.5 - 5.0 mmol/L [facility] Comment: Please note: Patients with WBC >100,000 may have falsely elevated Potassium levels. Contact the Clinical Chemistry L aboratory if there are any questions. ICa Whole Blood 1.18 1.15 - 1.33 mmol/L [facility] Comment: Note: ??Total bilirubin higher than 20 m g/dL may lead to falsely low ionized calcium. CL Whole Blood 105 98 - 107 mmol/L [facility] Gluc Whole Bld 215 (H) 65 - 199 mg/dL [facility] Comment: Diabetes: >=200 mg/dL plus symp toms. Lactate WB 0.9 0.5 - 2.2 mmol/L [facility] Specimen Anatomical Collection Method Collection Time Receive d Time (Source) Location / / Volume Laterality Blood specimen 07/12/2016 12:47 7 (specimen) PM EDT 12:47 PM EDT Rolf Zayas MD CHEMISTRY ORDERABLES Performing Organization Address City/State/[place] [address] Prepare Coag Factors (Non-Hemophilia) (07/12/2016 10:45 AM EDT) P athologist Signature Dispensed? Yes [facility] Specimen Anatomical Collection Method Collection Time Receive d Time (Source) Location / / Volume Laterality Blood specimen 07/12/2016 10:45 7 (specimen) AM EDT 10:43 AM EDT Resulting Agency Comment Spec In Lab Rolf Zayas MD BLOOD BANK ORDERABLES Performing Organization Address City/[facility]/ZIP Code Phon e Number [address] Prepare RBC (07/12/2016 10:45 AM EDT) P athologist Signature Dispensed? Yes [facility] Specimen Anatomical Collection Method Collection Time Receive d Time (Source) Location / / Volume Laterality Blood specimen 07/12/2016 10:45 7 (specimen) AM EDT 10:43 AM EDT Resulting Agency Comment Spec In Lab Rolf Zayas MD BLOOD BANK ORDERABLES Performing Organization Address City/[facility] Code Phon e Number [address] POCT Glucose (07/12/2016 7:41 AM EDT) athologist Signature POC Glucose 195 65 - 199 [facility] mg/dL [facility] Comment: Supplemental ranges: <140 mg/dL before meals <180 mg/dL all other times of the day Specimen Anatomical Collection Method Collection Time Receive d Time (Source) Location / / Volume Laterality Blood specimen 07/12/2016 7:41 AM 017 7:41 (specimen) EDT AM EDT Darrius Cotter MD POINT OF CARE TEST ORDERABLE S Performing Organization Address City/[facility]/ZIP Code Phon e Number [address] (ABNORMAL) POCT Glucose (07/12/2016 4:34 AM EDT) athologist Signature POC Glucose 201 (H) 65 - 199 [facility] mg/dL [facility] Comment: Supplemental ranges: <140 mg/dL before meals <180 mg/dL all other times of the day Specimen Anatomical Collection Method Collection Time Receive d Time (Source) Location / / Volume Laterality Blood specimen 07/12/2016 4:34 AM 017 4:34 (specimen) EDT AM EDT Darrius Cotter MD POINT OF CARE TEST ORDERABLE S Performing Organization Address City/State/[place] [address] (ABNORMAL) Differential, Automated (07/12/2016 4:34 AM EDT) [facility] gist Method Time Signature Neutrophils % 49.7 % [facility] Neutr Abs (ANC) 4.54 1.70 - [facility] 6.10 [facility] x10(3)/[facility] LABORATORY Lymphocytes % 39.5 % [facility] Lymphocytes Abs 3.6 (H) 0.9 - 3.2 [facility] x10(3)/[facility] LABORATORY Monocytes % 7.8 % [facility] Monocyte Abs 0.7 0.3 - 0.9 [facility] x10(3)/[facility] LABORATORY Eosinophils % 2.2 % [facility] Eosinophils Abs 0.2 0.0 - 0.4 [facility] x10(3)/[facility] LABORATORY Basophils % 0.4 % [facility] Basophils Abs 0.0 0.0 - 0.1 [facility] x10(3)/[facility] LABORATORY Immature Gran % 0.40 % [facility] Comment: Immature granulocytes(IG's)percentage an d absolute count will include metamyelocytes, myelocytes, and promyelo cytes. Blood smears from CBCs yielding IG's will be scanned manually for concor dance. If this scan disagrees with the automated IG or if promyelocytes are not ed, a manual differential will be performed. Madhuri Gran Abs 0.04 0.00 - 0.04 x10(3)/[facility] Y [facility]ORATORY Specimen Anatomical Collection Method Collection Time Receive d Time (Source) Location / / Volume Laterality Blood specimen 07/12/2016 4:34 AM 017 4:41 (specimen) EDT AM EDT Resulting Agency Comment Spec In Lab Darrius Cotter MD HEMATOLOGY ORDERABLES Performing Organization Address City/State/ZIP Code Phon e Number [address] Hemogram (07/12/2016 4:34 AM EDT) P athologist Signature WBC 9.1 4.0 - 9.5 [facility] Acrinta x10(3)/[facility] LABORATORY RBC 4.81 4.58 - [facility] 5.54 [facility] x10(6)/[facility] LABORATORY Hemoglobin 14.5 13.7 - [facility] 16.5 gm/dL [facility] Hematocrit 43.5 40.5 - [facility] AFIA 48.5 % [facility] MCV 90.4 82.9 - [facility] 93.1 [facility] LABORATORY MCH 30.1 27.5 - [facility] 32.1 pg [facility] MCHC 33.3 32.0 - [facility] 35.7 gm/dL [facility] Platelets 181 145 - 357 [facility] x10(3)/[facility] LABORATORY RDWSD 43.1 36.0 - [facility] AFIA 45.0 [facility] LABORATORY RDWCV 13.0 11.4 - [facility] 13.8 % [facility] MPV 10.7 7.6 - 12.9 [facility] LABORATORY nRBC % Auto 0.0 % [facility] nRBC Abs Auto 0.000 0.000 - [facility] Acrinta 0.000 [facility] x10(3)/[facility] LABORATORY Specimen Anatomical Collection Method Collection Time Receive d Time (Source) Location / / Volume Laterality Blood specimen 07/12/2016 4:34 AM 017 4:41 (specimen) EDT AM EDT Resulting Agency Comment Spec In Lab Darrius Cotter MD HEMATOLOGY ORDERABLES Performing Organization Address City/State/[place] [address] APTT (07/12/2016 4:34 AM EDT) P athologist Signature PTT 26 25 - 35 sec [facility] Comment: The recommended therapeutic range for fu ll dose, unfractionated heparin at [facility] is 80 ? 114 seconds. The use [...] Performing Organization Address City/[facility]/ZIP Code Phon e Number [address] Prothrombin Time (07/12/2016 4:34 AM EDT) P athologist Signature PT 12.9 12.0 - 15.0 [facility]ATORY Comment: An INR <2.0 indicates [...] linical circumstances. INR 0.9 0.9 - 1.1 [facility] Specimen Anatomical Collection Method Collection Time Receive d Time (Source) Location / / Volume Laterality Blood specimen 07/12/2016 4:34 AM 017 4:41 (specimen) EDT AM EDT Resulting Agency Comment Spec In Lab Darrius Cotter MD HEMATOLOGY ORDERABLES Performing Organization Address City/[facility]/ZIP Code Phon e Number [address] Magnesium (07/12/2016 4:34 AM EDT) P athologist Signature Magnesium 0.69 0.69 - 1.07 [facility] mmol/L [facility] Specimen Anatomical Collection Method Collection Time Receive d Time (Source) Location / / Volume Laterality Blood specimen 07/12/2016 4:34 AM 017 4:41 (specimen) EDT AM EDT Resulting Agency Comment Spec In Lab Darrius Cotter MD CHEMISTRY ORDERABLES Performing Organization Address City/State/[place] [address] (ABNORMAL) BMP w/fasting Glucose (07/12/2016 4:34 AM EDT) athologist Signature Glucose 208 (H) 65 - 99 [facility] Fasting mg/dL [facility] Comment: ?Fasting* Glucose Interpretive C [...] of Diabetes Mellitus, Position Statement from the [place] [employer]. ??Diabete s Care, Volume 33, Supplement 1, Apr 2009 BUN 13 10 - 20 mg/dL [facility] Creatinine 0.93 0.80 - 1.50 mg/dL [facility] Comment: Please note that the pediatric reference intervals supplied above were not validated at [facility]. Results from pediatri c patients should be interpreted in conjunction to the patient's age, height and muscle mass. Sodium 138 135 - 145 mmol/L [facility] Potassium 4.1 3.5 - 5.0 mmol/L [facility] Comment: Please note: ??Patients with WBC >100,00 0 may have falsely elevated Potassium levels. ??For accurate Potassium quantif ication in these patients send serum separator tube (gold top) for subsequent determinations. ??Contact the Clinical Chemistry Laboratory if there are any qu estions. Chloride 99 98 - 107 mmol/L [facility] CO2 24 22 - 31 mmol/L [facility] Anion Gap 15 5 - 15 mmol/L [facility] Calcium 9.4 8.5 - 10.5 mg/dL [facility] Estimated GFR >60 >=60 [facility] Comment: This estimated GFR (eGFR) [...] the following links into your internet browser. [email or web address] Specimen Anatomical Collection Method Collection Time Receive d Time (Source) Location / / Volume Laterality Blood specimen 07/12/2016 4:34 AM 017 4:41 (specimen) EDT AM EDT Resulting Agency Comment Spec In Lab Darrius Cotter MD CHEMISTRY ORDERABLES Performing Organization Address City/State/ZIP Code Phon e Number [address] POCT Glucose (07/11/2016 11:38 PM EDT) athologist Signature POC Glucose 118 65 - 199 [facility] mg/dL [facility] Comment: Supplemental ranges: <140 mg/dL before meals <180 mg/dL all other times of the day Specimen Anatomical Collection Method Collection Time Receive d Time (Source) Location / / Volume Laterality Blood specimen 07/11/2016 11:38 7 (specimen) PM EDT 11:38 PM EDT Darrius Cotter MD POINT OF CARE TEST ORDERABLE S Performing Organization Address City/[facility]/ZIP Code Phon e Number [address] (ABNORMAL) POCT Glucose (07/11/2016 8:00 PM EDT) athologist Signature POC Glucose 205 (H) 65 - 199 [facility] mg/dL [facility] Comment: Supplemental ranges: <140 mg/dL before meals <180 mg/dL all other times of the day Specimen Anatomical Collection Method Collection Time Receive d Time (Source) Location / / Volume Laterality Blood specimen 07/11/2016 8:00 PM 017 8:00 (specimen) EDT PM EDT Darrius Cotter MD POINT OF CARE TEST ORDERABLE S Performing Organization Address City/State/[place] [address] XR Chest PA & [...] Signature POC Glucose 175 65 - 199 [facility] mg/dL [facility] Comment: Supplemental ranges: <140 mg/dL before meals <180 mg/dL all other times of the day Specimen Anatomical Collection Method Collection Time Receive d Time (Source) Location / / Volume Laterality Blood specimen 07/11/2016 4:10 PM 017 4:10 (specimen) EDT PM EDT Darrius Cotter MD POINT OF CARE TEST ORDERABLE S Performing Organization Address City/State/ZIP [place] [address] Angiogram Pelvis (07/11/2016 [...] ABORH Recheck Status (07/11/2016 2:44 PM EDT) [facility] Method Time Signature ABORH Recheck Order Placed [facility] LABORATORY ABORH Type Complete [facility] LABORATORY Specimen Anatomical Collection Method Collection Time Receive d Time (Source) Location / / Volume Laterality Blood specimen 07/11/2016 2:44 PM 017 3:15 (specimen) EDT PM EDT Resulting Agency Comment Spec In Lab Darrius Cotter MD BLOOD BANK ORDERABLES Performing Organization Address City/[facility]/[place] [address] Antibody screen (07/11/2016 2:44 PM EDT) [facility] gist Method Time Signature Ab Screen Negative [facility] LABORATORY Expires at 07/14/2016 [facility] [place] on: [facility] Specimen Anatomical Collection Method Collection Time Receive d Time (Source) Location / / Volume Laterality Blood specimen 07/11/2016 2:44 PM 017 3:15 (specimen) EDT PM EDT Resulting Agency Comment Spec In Lab Darrius Cotter MD BLOOD BANK ORDERABLES Performing Organization Address [facility]/ZIP Code Phon e Number [address] ABO/Rh Typing (07/11/2016 2:44 PM EDT) P athologist Signature ABORh Type A Pos [facility] Specimen Anatomical Collection Method Collection Time Receive d Time (Source) Location / / Volume Laterality Blood specimen 07/11/2016 2:44 PM 017 3:15 (specimen) EDT PM EDT Resulting Agency Comment Spec In Lab Darrius Cotter MD BLOOD BANK ORDERABLES Performing Organization Address City/[facility]/ZIP Code Phon e Number [address] Arterial Duplex Leg, Unil (07/11/2016 12:31 PM EDT) Component Value Ref Test Analysis Performed At [facility] Range Method Time Signature VB Text Department: Vascular Surgery Lab VASCUBASE Report Patient: [id number] (BERTIN BERRY) CPT: 62389 ICD10: T82.590A Referring Physician: DARRIUS COTTER ?? [...] Signature POC Glucose 183 65 - 199 [facility] mg/dL [facility] Comment: Supplemental ranges: <140 mg/dL before meals <180 mg/dL all other times of the day Specimen Anatomical Collection Method Collection Time Receive d Time (Source) Location / / Volume Laterality Blood specimen 07/11/2016 11:40 7 (specimen) AM EDT 11:40 AM EDT Darrius Cotter MD POINT OF CARE TEST ORDERABLE S Performing Organization Address City/State/ZIP Code Phon e Number [place] [id number] POCT Glucose (07/11/2016 7:38 AM EDT) athologist Signature POC Glucose 145 65 - 199 [facility] mg/dL [facility] Comment: Supplemental ranges: <140 mg/dL before meals <180 mg/dL all other times of the day Specimen Anatomical Collection Method Collection Time Receive d Time (Source) Location / / Volume Laterality Blood specimen 07/11/2016 7:38 AM 017 7:38 (specimen) EDT AM EDT Darrius Cotter MD POINT OF CARE TEST ORDERABLE S Performing Organization Address City/[facility]/ZIP Code Phon e Number [address] (ABNORMAL) APTT (07/11/2016 4:04 AM EDT) P athologist Signature PTT 90 (H) 25 - 35 sec [facility] Comment: The recommended therapeutic range for fu ll dose, unfractionated heparin at [facility] is 80 ? 114 seconds. The use [...] Performing Organization Address City/[facility]/ZIP Code Phon e Number [address] (ABNORMAL) Differential, Automated (07/11/2016 4:04 AM EDT) Patholo gist Method Time Signature Neutrophils % 42.3 % [facility] Neutr Abs (ANC) 4.51 1.70 - [facility] 6.10 [facility] x10(3)/[facility] LABORATORY Lymphocytes % 46.7 % [facility] Lymphocytes Abs 5.0 (H) 0.9 - 3.2 [facility] x10(3)/[facility] LABORATORY Monocytes % 7.5 % [facility] Monocyte Abs 0.8 0.3 - 0.9 [facility] x10(3)/[facility] LABORATORY Eosinophils % 2.3 % [facility] Eosinophils Abs 0.2 0.0 - 0.4 [facility] x10(3)/[facility] LABORATORY Basophils % 0.5 % [facility] Basophils Abs 0.0 0.0 - 0.1 [facility] x10(3)/[facility] LABORATORY Immature Gran % 0.70 % [facility] Comment: Immature granulocytes(IG's)percentage an d absolute count will include metamyelocytes, myelocytes, and promyelo cytes. Blood smears from CBCs yielding IG's will be scanned manually for concor dance. If this scan disagrees with the automated IG or if promyelocytes are not ed, a manual differential will be performed. Madhuri Gran Abs 0.07 (H) 0.00 - 0.04 x10(3)/[facility] LABORATORY Specimen Anatomical Collection Method Collection Time Receive d Time (Source) Location / / Volume Laterality Blood specimen 07/11/2016 4:04 AM 017 4:25 (specimen) EDT AM EDT Resulting Agency Comment Spec In Lab Darrius Cotter MD HEMATOLOGY ORDERABLES Performing Organization Address City/State/[place] [address] (ABNORMAL) Hemogram (07/11/2016 4:04 AM EDT) Analysis Performed At Patho logist Time Signature WBC 10.6 (H) 4.0 - 9.5 [facility] x10(3)/[facility] LABORATORY RBC 5.05 4.58 - [facility] 5.54 [facility] x10(6)/[facility] LABORATORY Hemoglobin 15.0 13.7 - [facility] 16.5 gm/dL [facility] Hematocrit 45.5 40.5 - [facility] 48.5 % [facility] MCV 90.1 82.9 - [facility] 93.[facility] fL [facility] MCH 29.7 27.5 - [facility] 32.1 pg [facility] MCHC 33.0 32.0 - [facility] 35.7 gm/dL [facility] Platelets 206 145 - 357 [facility] x10(3)/[facility] LABORATORY RDWSD 44.0 36.0 - [facility] 45.0 [facility] LABORATORY RDWCV 13.2 11.4 - [facility] 13.8 % [facility] MPV 11.1 7.6 - 12.9 [facility] LABORATORY nRBC % Auto 0.0 % [facility] nRBC Abs Auto 0.000 0.000 - [facility] 0.000 [facility] x10(3)/[facility] LABORATORY Specimen Anatomical Collection Method Collection Time Receive d Time (Source) Location / / Volume Laterality Blood specimen 07/11/2016 4:04 AM 017 4:25 (specimen) EDT AM EDT Resulting Agency Comment Spec In Lab Darrius Cotter MD HEMATOLOGY ORDERABLES Performing Organization Address City/State/[place] [address] (ABNORMAL) Basic Metabolic Panel (non-fasting) (07/11/2016 4:04 AM EDT) athologist Signature Glucose Lvl 223 (H) 65 - 199 [facility] mg/dL [facility] Comment: Diabetes: >=200 mg/dL plus symp toms BUN 11 10 - 20 mg/dL [facility] Creatinine 0.82 0.80 - 1.50 mg/dL [facility] Comment: Please note that the pediatric reference intervals supplied above were not validated at [facility]. Results from pediatri c patients should be interpreted in conjunction to the patient's age, height and muscle mass. Sodium 139 135 - 145 mmol/L [facility] Potassium 4.2 3.5 - 5.0 mmol/L [facility] Comment: Please note: ??Patients with WBC >100,00 0 may have falsely elevated Potassium levels. ??For accurate Potassium quantif ication in these patients send serum separator tube (gold top) for subsequent determinations. ??Contact the Clinical Chemistry Laboratory if there are any qu estions. Chloride 97 (L) 98 - 107 mmol/L [facility] CO2 27 22 - 31 mmol/L [facility] Anion Gap 15 5 - 15 mmol/L [facility] Calcium 9.5 8.5 - 10.5 mg/dL [facility] Estimated GFR >60 >=60 [facility] Comment: This estimated GFR (eGFR) [...] the following links into your internet browser. [email or web address] Specimen Anatomical Collection Method Collection Time Receive d Time (Source) Location / / Volume Laterality Blood specimen 07/11/2016 4:04 AM 017 4:25 (specimen) EDT AM EDT Resulting Agency Comment Spec In Lab Darrius Cotter MD CHEMISTRY ORDERABLES Performing Organization Address City/[facility]/ZIP Code Phon e Number [address] POCT Glucose (07/11/2016 4:02 AM EDT) P athologist Signature POC Glucose 198 65 - 199 [facility] mg/dL [facility] Comment: Supplemental ranges: <140 mg/dL before meals <180 mg/dL all other times of the day Specimen Anatomical Collection Method Collection Time Receive d Time (Source) Location / / Volume Laterality Blood specimen 07/11/2016 4:02 AM 017 4:02 (specimen) EDT AM EDT Darrius Cotter MD POINT OF CARE TEST ORDERABLE S Performing Organization Address City/State/[place] [address] POCT Glucose (07/11/2016 12:23 AM EDT) athologist Signature POC Glucose 156 65 - 199 [facility]dL [facility] Comment: Supplemental ranges: <140 mg/dL before meals <180 mg/dL all other times of the day Specimen Anatomical Collection Method Collection Time Receive d Time (Source) Location / / Volume Laterality Blood specimen 07/11/2016 12:23 7 (specimen) AM EDT 12:23 AM EDT Darrius Cotter MD POINT OF CARE TEST ORDERABLE S Performing Organization Address City/[facility]/ZIP Code Phon e Number [address] (ABNORMAL) APTT (07/10/2016 8:35 PM EDT) athologist Signature PTT 90 (H) 25 - 35 sec [facility] Comment: The recommended therapeutic range for fu ll dose, unfractionated heparin at [facility] is 80 ? 114 seconds. The use [...] Performing Organization Address City/[facility]/ZIP Code Phon e Number [address] POCT Glucose (07/10/2016 7:47 PM EDT) athologist Signature POC Glucose 197 65 - 199 [facility] mg/dL [facility] Comment: Supplemental ranges: <140 mg/dL before meals <180 mg/dL all other times of the day Specimen Anatomical Collection Method Collection Time Receive d Time (Source) Location / / Volume Laterality Blood specimen 07/10/2016 7:47 PM 017 7:47 (specimen) EDT PM EDT Darrius Cotter MD POINT OF CARE TEST ORDERABLE S Performing Organization Address City/State/[place] [address] POCT Glucose (07/10/2016 4:20 PM EDT) athologist Signature POC Glucose 195 65 - 199 [facility]dL [facility] Comment: Supplemental ranges: <140 mg/dL before meals <180 mg/dL all other times of the day Specimen Anatomical Collection Method Collection Time Receive d Time (Source) Location / / Volume Laterality Blood specimen 07/10/2016 4:20 PM 017 4:20 (specimen) EDT PM EDT Darrius Cotter MD POINT OF CARE TEST ORDERABLE S Performing Organization Address City/[facility]/[place] [address] (ABNORMAL) POCT Glucose (07/10/2016 12:24 PM EDT) athologist Signature POC Glucose 221 (H) 65 - 199 [facility]/dL [facility] Comment: Supplemental ranges: <140 mg/dL before meals <180 mg/dL all other times of the day Specimen Anatomical Collection Method Collection Time Receive d Time (Source) Location / / Volume Laterality Blood specimen 07/10/2016 12:24 7 (specimen) PM EDT 12:24 PM EDT Darrius Cotter MD POINT OF CARE TEST ORDERABLE S Performing Organization Address City/State/[place] [address] (ABNORMAL) APTT (07/10/2016 12:02 PM EDT) athologist Signature PTT 58 (H) 25 - 35 sec [facility] Comment: The recommended therapeutic range for fu ll dose, unfractionated heparin at [facility] is 80 ? 114 seconds. The use [...] Organization Address City/State/[place] [address] POCT Glucose (07/10/2016 7:57 AM EDT) P athologist Signature POC Glucose 194 65 - 199 [facility] mg/dL [facility] Comment: Supplemental ranges: <140 mg/dL before meals <180 mg/dL all other times of the day Specimen Anatomical Collection Method Collection Time Receive d Time (Source) Location / / Volume Laterality Blood specimen 07/10/2016 7:57 AM 017 7:57 (specimen) EDT AM EDT Darrius Cotter MD POINT OF CARE TEST ORDERABLE S Performing Organization Address City/State/[place] [address] (ABNORMAL) Differential, Automated (07/10/2016 5:04 AM EDT) Patholo gist Method Time Signature Neutrophils % 46.1 % [facility] Neutr Abs (ANC) 5.02 1.70 - [facility] 6.10 [facility] x10(3)/[facility] LABORATORY Lymphocytes % 43.6 % [facility] Lymphocytes Abs 4.8 (H) 0.9 - 3.2 [facility] x10(3)/[facility] LABORATORY Monocytes % 7.3 % [facility] Monocyte Abs 0.8 0.3 - 0.9 [facility] x10(3)/[facility] LABORATORY Eosinophils % 1.5 % [facility] Eosinophils Abs 0.2 0.0 - 0.4 [facility] x10(3)/[facility] LABORATORY Basophils % 0.6 % [facility] Basophils Abs 0.1 0.0 - 0.1 [facility] x10(3)/[facility] LABORATORY Immature Gran % 0.90 % [facility] Comment: Immature granulocytes(IG's)percentage an d absolute count will include metamyelocytes, myelocytes, and promyelo cytes. Blood smears from CBCs yielding IG's will be scanned manually for concor dance. If this scan disagrees with the automated IG or if promyelocytes are not ed, a manual differential will be performed. Madhuri Gran Abs 0.10 (H) 0.00 - 0.04 x10(3)/[facility] LABORATORY Specimen Anatomical Collection Method Collection Time Receive d Time (Source) Location / / Volume Laterality Blood specimen 07/10/2016 5:04 AM 017 5:10 (specimen) EDT AM EDT Resulting Agency Comment Spec In Lab Darrius Cotter MD HEMATOLOGY ORDERABLES Performing Organization Address City/State/[place] [address] (ABNORMAL) Hemogram (07/10/2016 5:04 AM EDT) Analysis Performed At Patho logist Time Signature WBC 10.9 (H) 4.0 - 9.5 [facility] x10(3)/[facility] LABORATORY RBC 5.08 4.58 - [facility] 5.54 [facility] x10(6)/[facility] LABORATORY Hemoglobin 14.9 13.7 - [facility] 16.5 gm/dL [facility] Hematocrit 44.7 40.5 - [facility] 48.5 % [facility] MCV 88.0 82.9 - [facility] 93.1 [facility] LABORATORY MCH 29.3 27.5 - [facility] AFIA 32.1 pg [facility] MCHC 33.3 32.0 - [facility] 35.7 gm/dL [facility] Platelets 180 145 - 357 [facility] x10(3)/[facility] LABORATORY RDWSD 42.4 36.0 - [facility] 45.0 [facility] LABORATORY RDWCV 13.0 11.4 - [facility] 13.8 % [facility] MPV 11.1 7.6 - 12.9 [facility] LABORATORY nRBC % Auto 0.0 % [facility] nRBC Abs Auto 0.000 0.000 - JW OREILLY 0.000 [facility] x10(3)/[facility] LABORATORY Specimen Anatomical Collection Method Collection Time Receive d Time (Source) Location / / Volume Laterality Blood specimen 07/10/2016 5:04 AM 017 5:10 (specimen) EDT AM EDT Resulting Agency Comment Spec In Lab Darrius Cotter MD HEMATOLOGY ORDERABLES Performing Organization Address City/[facility]/[place] [address] (ABNORMAL) APTT (07/10/2016 5:03 AM EDT) P athologist Signature PTT 64 (H) 25 - 35 sec [facility] Comment: The recommended therapeutic range for fu ll dose, unfractionated heparin at [facility] is 80 ? 114 seconds. The use [...] Performing Organization Address City/[facility]/ZIP Code Phon e Number [address] POCT Glucose (07/10/2016 4:27 AM EDT) P athologist Signature POC Glucose 194 65 - 199 [facility] mg/dL [facility] Comment: Supplemental ranges: <140 mg/dL before meals <180 mg/dL all other times of the day Specimen Anatomical Collection Method Collection Time Receive d Time (Source) Location / / Volume Laterality Blood specimen 07/10/2016 4:27 AM 017 4:27 (specimen) EDT AM EDT Darrius Cotter MD POINT OF CARE TEST ORDERABLE S Performing Organization Address City/[facility]/ZIP Code Phon e Number [address] POCT Glucose (07/09/2016 11:43 PM EDT) athologist Signature POC Glucose 148 65 - 199 [facility] mg/dL [facility] Comment: Supplemental ranges: <140 mg/dL before meals <180 mg/dL all other times of the day Specimen Anatomical Collection Method Collection Time Receive d Time (Source) Location / / Volume Laterality Blood specimen 07/09/2016 11:43 7 (specimen) PM EDT 11:43 PM EDT Darrius Cotter MD POINT OF CARE TEST ORDERABLE S Performing Organization Address City/State/ZIP Code Phon e Number [address] POCT Glucose (07/09/2016 10:31 PM EDT) athologist Signature POC Glucose 180 65 - 199 [facility]/dL [facility] Comment: Supplemental ranges: <140 mg/dL before meals <180 mg/dL all other times of the day Specimen Anatomical Collection Method Collection Time Receive d Time (Source) Location / / Volume Laterality Blood specimen 07/09/2016 10:31 7 (specimen) PM EDT 10:31 PM EDT Darrius Cotter MD POINT OF CARE TEST ORDERABLE S Performing Organization Address City/State/ZIP Code Phon e Number [address] (ABNORMAL) POCT Glucose (07/09/2016 8:37 PM EDT) athologist Signature POC Glucose 262 (H) 65 - 199 [facility] mg/dL [facility] Comment: Supplemental ranges: <140 mg/dL before meals <180 mg/dL all other times of the day Specimen Anatomical Collection Method Collection Time Receive d Time (Source) Location / / Volume Laterality Blood specimen 07/09/2016 8:37 PM 017 8:37 (specimen) EDT PM EDT Darrius Cotter MD POINT OF CARE TEST ORDERABLE S Performing Organization Address City/State/[place] [address] Potassium (07/09/2016 7:47 PM EDT) athologist Signature Potassium 4.5 3.5 - 5.0 [facility] mmol/L [facility] Comment: Please note: ??Patients with [...] Organization Address City/State/[place] [address] (ABNORMAL) Cardiac Enzymes (07/09/2016 7:47 PM EDT) athologist Signature Troponin-T 2.03 (H) <=0.03 [facility] ng/mL [facility] Comment: Result rechecked. 0.03 ng/mL: [...] consensus document of the Joint Society of Cardiology/[place] [employer] Committee for the redefinition of myocardial infarction. ? ?Journal of the [place] College [employer] 2000; 36: 959-969] CK, Total 921 (H) 0 - 200 unit/L [facility] Specimen Anatomical Collection Method Collection Time Receive d Time (Source) Location / / Volume Laterality Blood specimen 07/09/2016 7:47 PM 017 7:55 (specimen) EDT PM EDT Resulting Agency Comment Spec In Lab Darrius Cotter MD CHEMISTRY ORDERABLES Performing Organization Address City/State/[place] [address] (ABNORMAL) POCT Glucose (07/09/2016 7:38 PM EDT) P athologist Signature POC Glucose 290 (H) 65 - 199 [facility] mg/dL [facility] Comment: Supplemental ranges: <140 mg/dL before meals <180 mg/dL all other times of the day Specimen Anatomical Collection Method Collection Time Receive d Time (Source) Location / / Volume Laterality Blood specimen 07/09/2016 7:38 PM 017 7:38 (specimen) EDT PM EDT Darrius Cotter MD POINT OF CARE TEST ORDERABLE S Performing Organization Address City/State/[place] [address] (ABNORMAL) POCT Glucose (07/09/2016 5:28 PM EDT) athologist Signature POC Glucose 275 (H) 65 - 199 [facility] AFIA mg/dL [facility] Comment: Supplemental ranges: <140 mg/dL before meals <180 mg/dL all other times of the day Specimen Anatomical Collection Method Collection Time Receive d Time (Source) Location / / Volume Laterality Blood specimen 07/09/2016 5:28 PM 017 5:28 (specimen) EDT PM EDT Darrius Cotter MD POINT OF CARE TEST ORDERABLE S Performing Organization Address City/State/[place] [address] (ABNORMAL) POCT Glucose (07/09/2016 11:16 AM EDT) P athologist Signature POC Glucose 291 (H) 65 - 199 [facility] AFIA mg/dL [facility] Comment: Supplemental ranges: <140 mg/dL before meals <180 mg/dL all other times of the day Specimen Anatomical Collection Method Collection Time Receive d Time (Source) Location / / Volume Laterality Blood specimen 07/09/2016 11:16 7 (specimen) AM EDT 11:16 AM EDT Darrius Cotter MD POINT OF CARE TEST ORDERABLE S Performing Organization Address City/State/[place] [address] ECHOCARDIOGRAM COMPLETE (07/09/2016 9:46 AM EDT) P athologist Signature EF 56 [facility] Specimen (Source) Anatomical Location Collection Method / Collectio n Time Received Time / Laterality Volume 07/09/2016 Narrative [facility] - 07/09/2016 10:49 AM ED T Procedure: ?Transthoracic Echocardiogram Patient: ?JAMAL DENTON ?? (Age): 1960(55y) Med Rec#: ? [id number] ?Sex: ?M ? Site Loc: ? [facility] ?Ht / Wt: ??167(cm)/77(kg) Pt. Loc: ?CCU ? BSA: ?1.86 Study Date: ?? 07/09/2016 ?Pt. Type: Inpatient Tape: ? Referring: CHARLY Referring: Griffin Irvin ([id number]) Reading: Steffen Velasco ([id number]) Engine Lathe Operator: Tammie Rose Interpreting Fellow: Jennifer Solis ([id number]) Diagnosis: *ICD-10-PCS Chest pain, unspecified (R0 7.9) CPT Codes: *Echo Full (62734) *Spectral Doppler (72103) *Color Doppler (81413) BP: ? 123/74 SUMMARY: 1. The left [...] E-wave Vmax ?0.9 ?m/sec ? MV deceleration eona435.8 ? msec ? MV A-wave Vmax ?0.9 [...] ? Mid-Inferior ?Hypokinetic ? Mid-Inferoseptal ?Normal ? [place]-Septal ? Normal ? [place]-Anterior ? Normal ? [place]-Lateral ?Hypokinetic ? [place]-Inferior ? Hypokinetic ? [place]-Tip ?Hypokinetic ? This report has been electronically sign ed by: _ Steffen Velasco MD ? 07/09/2016 10:49 :20 Images reviewed and interpretation [facility] Procedure Note Steffen Velasco MD - 07/09/2016Formattin g of this note might be different from the original. Procedure: Transthoracic Echocardiogram Patient: JAMAL LORENZ(Age): 0 1960(55y) Med Rec#: [id number] Sex: M Site Loc: [facility] Ht / Wt: 167(cm)/77(kg) Pt. Loc: CCU BSA: 1.86 Study Date: 07/09/2016 Pt. Type: Inpatie nt Tape: Referring: ESTELALDeric Referring: Griffin Irvin ([id number]) Reading: Steffen Velasco ([id number]) Engine Lathe Operator: Tammie Rose Interpreting Fellow: Jennifer Solis ([id number]) Diagnosis: *ICD-10-PCS Chest pain, unspecified (R0 7.9) CPT Codes: *Echo Full (30448) *Spectral Doppler (79705) *Color Doppler (74558) BP: 123/74 SUMMARY: 1. The left ventricular [...] MV E-wave Vmax 0.9 m/sec MV deceleration ybsb108.8 msec MV A-wave Vmax 0.9 m/sec MV [...] Akinetic Mid-Posterolateral Akinetic Mid-Inferior Hypokinetic Mid-Inferoseptal Normal [place]-Septal Normal [place]-Anterior Normal [place]-Lateral Hypokinetic [place]-Inferior Hypokinetic [place]-Tip Hypokinetic This report has been electronically sign ed by: _ Steffen Velasco MD 07/09/2016 10:49:20 Images reviewed and interpretation [facility]lene [facility] Ul[facility]ound [facility] Griffin Irvin MD ECHO ORDERABLES Performing Organization Address City/State/ZIP Code Phon e Number [facility] (ABNORMAL) Cardiac Enzymes (07/09/2016 9:40 AM EDT) athologist Signature Troponin-T 4.26 (H) <=0.03 [facility] ng/mL [facility] Comment: result rechecked-kml 0.03 ng/mL: [...] consensus document of the Joint Society of Cardiology/[place] [employer] o f [employer] Committee for the redefinition of myocardial infarction. ? ?Journal of the [place] College of [employer]iology 2000; 36: 959-969] CK, Total 1,648 (H) 0 - 200 unit/L [facility] Specimen Anatomical Collection Method Collection Time Receive d Time (Source) Location / / Volume Laterality Blood specimen 07/09/2016 9:40 AM 017 (specimen) EDT 11:14 AM EDT Resulting Agency Comment Spec In Lab Darrius Cotter MD CHEMISTRY ORDERABLES Performing Organization Address City/State/[place] [address] APTT (07/09/2016 9:40 AM EDT) athologist Signature PTT 28 25 - 35 sec [facility] Comment: The recommended therapeutic range for fu ll dose, unfractionated heparin at [facility] is 80 ? 114 seconds. The use [...] Organization Address City/State/ZIP Code Phon e Number [address] (ABNORMAL) POCT Glucose (07/09/2016 8:21 AM EDT) athologist Signature POC Glucose 255 (H) 65 - 199 [facility]/dL [facility] Comment: Supplemental ranges: <140 mg/dL before meals <180 mg/dL all other times of the day Specimen Anatomical Collection Method Collection Time Receive d Time (Source) Location / / Volume Laterality Blood specimen 07/09/2016 8:21 AM 017 8:21 (specimen) EDT AM EDT Darrius Cotter MD POINT OF CARE TEST ORDERABLE S Performing Organization Address City/State/[place] [address] (ABNORMAL) POCT Glucose (07/09/2016 4:19 AM EDT) athologist Signature POC Glucose 246 (H) 65 - 199 [facility] mg/dL [facility] Comment: Supplemental ranges: <140 mg/dL before meals <180 mg/dL all other times of the day Specimen Anatomical Collection Method Collection Time Receive d Time (Source) Location / / Volume Laterality Blood specimen 07/09/2016 4:19 AM 017 4:19 (specimen) EDT AM EDT Terell Munguia MD POINT OF CARE TEST ORDERABLE S Performing Organization Address City/State/[place] [address] (ABNORMAL) POCT Glucose (07/09/2016 2:16 AM EDT) athologist Signature POC Glucose 252 (H) 65 - 199 [facility] mg/dL [facility] Comment: Supplemental ranges: <140 mg/dL before meals <180 mg/dL all other times of the day Specimen Anatomical Collection Method Collection Time Receive d Time (Source) Location / / Volume Laterality Blood specimen 07/09/2016 2:16 AM 017 2:16 (specimen) EDT AM EDT Terell Munguia MD POINT OF CARE TEST ORDERABLE S Performing Organization Address City/[facility]/ZIP Code Phon e Number [address] LDL Cholesterol, Direct (07/09/2016 1:30 AM EDT) athologist [facility] LDL Chol 159 <=190 [facility] Direct mg/dL [facility] Specimen Anatomical Collection Method Collection Time Receive d Time (Source) Location / / Volume Laterality Blood specimen 07/09/2016 1:30 AM 017 1:59 (specimen) EDT AM EDT Resulting Agency Comment Spec In Lab Terell Munguia MD CHEMISTRY ORDERABLES Performing Organization Address City/State/ZIP Code Phon e Number [address] (ABNORMAL) Differential, Automated (07/09/2016 1:30 AM EDT) [facility] gist Method Time Signature Neutrophils % 55.0 % [facility] Neutr Abs (ANC) 6.74 (H) 1.70 - [facility] 6.10 [facility] x10(3)/[facility] LABORATORY Lymphocytes % 35.1 % [facility] Lymphocytes Abs 4.3 (H) 0.9 - 3.2 [facility] x10(3)/[facility] LABORATORY Monocytes % 7.7 % [facility] Monocyte Abs 0.9 0.3 - 0.9 [facility] x10(3)/[facility] LABORATORY Eosinophils % 0.8 % [facility] Eosinophils Abs 0.1 0.0 - 0.4 [facility] x10(3)/[facility] LABORATORY Basophils % 0.6 % [facility] Basophils Abs 0.1 0.0 - 0.1 [facility] x10(3)/[facility] LABORATORY Immature Gran % 0.80 % [facility] Comment: Immature granulocytes(IG's)percentage an d absolute count will include metamyelocytes, myelocytes, and promyelo cytes. Blood smears from CBCs yielding IG's will be scanned manually for concor dance. If this scan disagrees with the automated IG or if promyelocytes are not ed, a manual differential will be performed. Madhuri Gran Abs 0.10 (H) 0.00 - 0.04 x10(3)/[facility] LABORATORY Specimen Anatomical Collection Method Collection Time Receive d Time (Source) Location / / Volume Laterality Blood specimen Venous Draw / 07/09/2016 1:30 AM 2016 1:51 (specimen) Unknown EDT AM EDT Resulting Agency Comment Spec In Lab Terell Munguia MD HEMATOLOGY ORDERABLES Performing Organization Address City/State/[place] [address] (ABNORMAL) Hemogram (07/09/2016 1:30 AM EDT) Analysis Performed At Patho logist Time Signature WBC 12.2 (H) 4.0 - 9.5 [facility] x10(3)/[facility] LABORATORY RBC 5.11 4.58 - [facility] 5.54 [facility] x10(6)/[facility] LABORATORY Hemoglobin 15.1 13.7 - [facility] 16.[facility] gm/dL [facility] Hematocrit 45.0 40.5 - [facility] 48.5 % [facility] MCV 88.1 82.9 - [facility] 93.1 [facility] LABORATORY MCH 29.5 27.5 - [facility] 32.1 pg [facility] [facility] MCHC 33.6 32.0 - [facility] 35.[facility] gm/dL [facility] Platelets 202 145 - 357 [facility] x10(3)/[facility] LABORATORY RDWSD 42.5 36.0 - [facility] 45.0 [facility] LABORATORY RDWCV 13.1 11.4 - [facility] 13.8 % [facility] MPV 10.9 7.6 - 12.9 [facility] LABORATORY nRBC % Auto 0.0 % [facility] nRBC Abs Auto 0.000 0.000 - [facility] 0.000 [facility] x10(3)/[facility] LABORATORY Specimen Anatomical Collection Method Collection Time Receive d Time (Source) Location / / Volume Laterality Blood specimen Venous Draw / 07/09/2016 1:30 AM 2016 1:51 (specimen) Unknown EDT AM EDT Resulting Agency Comment Spec In Lab Terell Munguia MD HEMATOLOGY ORDERABLES Performing Organization Address City/State/ZIP Code Phon e Number [address] (ABNORMAL) APTT (07/09/2016 1:30 AM EDT) P athologist Signature PTT 20 (L) 25 - 35 sec [facility] Comment: Decreased clotting times may be caused b y improper phlebotomy technique. The recommended therapeutic range for fu ll dose, unfractionated heparin at [facility] is 80 ? 114 seconds. The use [...] Organization Address City/State/ZIP Code Phon e Number [address] Blue Tube HOLD (07/09/2016 1:30 AM EDT) P athologist Signature Blue Hold Sample in [facility]. [facility] Specimen Anatomical Collection Method Collection Time Receive d Time (Source) Location / / Volume Laterality Blood specimen Venous Draw / 07/09/2016 1:30 AM 2016 1:42 (specimen) Unknown EDT AM EDT Terell Munguia MD HEMATOLOGY ORDERABLES Performing Organization Address City/State/[place] [address] (ABNORMAL) Lipid Panel (07/09/2016 1:30 AM EDT) [facility] Method Time Signature Chol, Total 295 (H) <=239 [facility] mg/dL [facility] Triglycerides 1,000 (H) <=199 [facility] mg/dL [facility] Comment: result rechecked: bju HDL 23 (L) >=40 mg/dL [facility] LDL Cholesterol Not Perf <=190 mg/dL [facility] Comment: Since a calculated LDL value is not josette d for triglycerides greater than 400 mg/dl, a direct LDL determination is per formed instead. Chol/HDL Ratio 12.8 ratio [facility] Lipid Interpretation See Note [facility] Comment: Lipid management should be guided by a p atient? s ASCVD risk, goals and preferences. ACC/AHA Guidelines recommend high intens ity statin if clinical ASCVD or LDL greater than or equal to 190 mg/dL. http://circ.ahajournals.org/content/iliana y/.cir.4110718272.10996.7a Adults aged 40-75 with LDL 70-189 mg/dL should have their 10 year ASCVD risk estimated with the ACC/AHA ASCVD risk es timator http://tools.acc.org/HCNSP-Aprl-Jifyuals r/ Statin should be discussed if risk [...] Organization Address City/State/[place] [address] (ABNORMAL) Hemoglobin A1c (07/09/2016 1:30 AM EDT) [facility] gist Method Time Signature Hemoglobin A1C 12.7 (H) 4.3 - 5.6 [facility] Comment: Reference Range: 4.3 - 5.6% [...] Mellitus, Diabetes Care 2013; 36: Suppl. 1, S67-13 Est Avg Gluc 318 mg/dL [facility] Comment: eAG equivalents for HbA1c percentages: HbA1c(%) ?eAG(mg/dL) 6.0 ?126 6.5 ?140 7.0 ?154 7.5 ?169 8.0 ?183 8.5 ?197 9.0 ?212 9.5 ?226 10.0 ? 240 Limitations: The eAG calculation has not been validated on women, individuals below 18 years old and above 70 years old, and individuals with hemoglobinopathies. Additional resources are available on e ADA website: [email or web address]/[email or web address] STROUDadacalc Sal BHARDWAJ, Mariposa J, Vito R, et al. ??Tr anslating the A1C assay into estimated average glucose values. ??Diabetes Care 2008:31(8):6557-9184. Specimen Anatomical Collection Method Collection Time Receive d Time (Source) Location / / Volume Laterality Blood specimen 07/09/2016 1:30 AM 017 1:42 (specimen) EDT AM EDT Resulting Agency Comment Spec In Lab Terell Munguia MD CHEMISTRY ORDERABLES Performing Organization Address City/State/[place] [address] (ABNORMAL) Basic Metabolic Panel (non-fasting) (07/09/2016 1:30 AM EDT) athologist Signature Glucose Lvl 270 (H) 65 - 199 [facility] mg/dL [facility] Comment: Diabetes: >=200 mg/dL plus symp toms BUN 9 (L) 10 - 20 mg/dL [facility] Creatinine 0.70 (L) 0.80 - 1.50 mg/dL [facility] Comment: Please note that the pediatric reference intervals supplied above were not validated at [facility]. Results from pediatri c patients should be interpreted in conjunction to the patient's age, height and muscle mass. Sodium 136 135 - 145 mmol/L [facility] Potassium 3.7 3.5 - 5.0 mmol/L [facility] Comment: Please note: ??Patients with WBC >100,00 0 may have falsely elevated Potassium levels. ??For accurate Potassium quantif ication in these patients send serum separator tube (gold top) for subsequent determinations. ??Contact the Clinical Chemistry Laboratory if there are any qu estions. Chloride 94 (L) 98 - 107 mmol/L [facility] CO2 25 22 - 31 mmol/L [facility] Anion Gap 17 (H) 5 - 15 mmol/L [facility] Calcium 8.9 8.5 - 10.5 mg/dL [facility] Estimated GFR >60 >=60 [address] [facility] Comment: This estimated GFR [...] the following links into your internet browser. [email or web address] Specimen Anatomical Collection Method Collection Time Receive d Time (Source) Location / / Volume Laterality Blood specimen 07/09/2016 1:30 AM 017 1:42 (specimen) EDT AM EDT Resulting Agency Comment Spec In Lab Darrius Cotter MD CHEMISTRY ORDERABLES Performing Organization Address City/State/[place] [address] (ABNORMAL) Cardiac Enzymes (07/09/2016 1:30 AM EDT) P athologist Signature Troponin-T 9.50 (H) <=0.03 [facility] ng/mL [facility] Comment: result rechecked-bju 0.03 ng/mL: [...] consensus document of the Joint Society of Cardiology/[place] College o f Cardiology Committee for the redefinition of myocardial infarction. ? ?Journal of the [place] College of Cardiology 2000; 36: 959-969] CK, Total 2,875 (H) 0 - 200 unit/L [facility] Comment: result rechecked: bju Specimen Anatomical Collection Method Collection Time Receive d Time (Source) Location / / Volume Laterality Blood specimen 07/09/2016 1:30 AM 017 1:42 (specimen) EDT AM EDT Resulting Agency Comment Spec In Lab Darrius Cotter MD CHEMISTRY ORDERABLES Performing Organization Address City/State/[place] [address] (ABNORMAL) POCT Glucose (07/09/2016 12:54 AM EDT) athologist Signature POC Glucose 270 (H) 65 - 199 [facility] mg/dL [facility] Comment: Supplemental ranges: <140 mg/dL before meals <180 mg/dL all other times of the day Specimen Anatomical Collection Method Collection Time Receive d Time (Source) Location / / Volume Laterality Blood specimen 07/09/2016 12:54 7 (specimen) AM EDT 12:54 AM EDT Terell Munguia MD POINT OF CARE TEST ORDERABLE S Performing Organization Address City/State/[place] [address] (ABNORMAL) POCT Glucose (07/08/2016 9:55 PM EDT) athologist Signature POC Glucose 303 (H) 65 - 199 [facility] mg/dL [facility] Comment: Supplemental ranges: <140 mg/dL before meals <180 mg/dL all other times of the day Specimen Anatomical Collection Method Collection Time Receive d Time (Source) Location / / Volume Laterality Blood specimen 07/08/2016 9:55 PM 017 9:55 (specimen) EDT PM EDT Terell Munguia MD POINT OF CARE TEST ORDERABLE S Performing Organization Address City/State/[place] [address] (ABNORMAL) POCT Glucose (07/08/2016 8:07 PM EDT) athologist Signature POC Glucose 281 (H) 65 - 199 [facility] mg/dL [facility] Comment: Supplemental ranges: <140 mg/dL before meals <180 mg/dL all other times of the day Specimen Anatomical Collection Method Collection Time Receive d Time (Source) Location / / Volume Laterality Blood specimen 07/08/2016 8:07 PM 017 8:07 (specimen) EDT PM EDT Terell Munguia MD POINT OF CARE TEST ORDERABLE S Performing Organization Address City/[facility]/[place] [address] EKG 12 Lead (07/08/2016 8:03 PM EDT) Component Value Ref Range Test Analysis Performed Pathologis t Method Time At Signature Ventricular rate 83 BPM MUSE SYSTEM Atrial Rate 83 BPM MUSE SYSTEM P-R Interval 148 ms MUSE SYSTEM QRS Duration 90 ms MUSE SYSTEM Q-T Interval 354 ms MUSE SYSTEM QTC Calculated 415 ms MUSE SYSTEM (Bezet) Calculated P Reinbeck 70 degrees MUSE SYSTEM Calculated R Reinbeck 36 degrees MUSE SYSTEM Calculated T Reinbeck 55 degrees MUSE SYSTEM INTERPRETATION Normal sinus [...] Cotter MD ECG ORDERABLES Performing Organization Address City/[facility]/ZIP Code Phon e Number MUSE SYSTEM CARDIAC CATHETERIZATION (07/08/2016 7:50 PM EDT) Specimen (Source) Anatomical Location Collection Method / Collectio n Time Received Time / Laterality Volume Narrative CARDIOMAC SYSTEM - 07/08/2016 8:03 PM ED T ?[facility] ? Cardiac Cathete rization/Intervention Report ? Patient Name: Jamal Chapomo Moreno. ? Procedure Date: 07/08/2016 ? A #: [id number] ? Primary Physician: Nilda, Terell T ? Case #: [id number] ? File Name: [id number] ? Catheterization Order Number: [id number] ? [facility] ? Final Report [place], [place] ? Patient Name: ? Christopher G. Jamal ? ID#: ?[id number] ? : ?1960 ? Procedure Date: ? July 08, 2016 ? Case #: ? Room: ? 5 ? Case Physician: [...] presented with: non -STEMI (w/i 7 days). Indonesian ?Cardiovascular Society angina c lass was IV. [...] revascularization. ?Thoracic aortography was perfor med in SERBIAN projection to evalaute for PAD ?in a [...] note might be different from the original. [facility] Cardiac Catheterization/Intervention Re port Patient Name: Bertin BerryShanna Procedure Date: 07/08/2016 A #: [id number] Primary Physician: Terell Munguia Case #: [id number] File Name: [id number] Catheterization Order Number: [id number] [facility] Final Report [place], [place] Patient Name: Bertin Berry ID# : [id number] : 1960 Procedure Date: July 08, 2016 Case #: [id number] Room: 5 Case Physician: Terell Munguia M.D. art: 18:29 Fellow: Slim Eason M.D. Admiss [...] presented with: non-STEMI ( w/i 7 days). [place] [employer] angina class was IV. No [...] athologist Signature BOHB 0.24 0.00 - 0.30 [facility] mmol/L [facility] Comment: Reference range: ??0.00-0.30 mmo1/L, [...] Performing Organization Address City/[facility]/[place] [address] (ABNORMAL) APTT (07/08/2016 5:40 PM EDT) P athologist Signature PTT 36 (H) 25 - 35 sec [facility] Comment: The recommended therapeutic range for fu ll dose, unfractionated heparin at [facility] is 80 ? 114 seconds. The use [...] Robles MD HEMATOLOGY ORDERABLES Performing Organization Address [facility]/[place] [address] (ABNORMAL) Differential, Automated (07/08/2016 5:40 PM EDT) Patholo gist Method Time Signature Neutrophils % 62.3 % [facility] Neutr Abs (ANC) 8.73 (H) 1.70 - [facility] 6.10 [facility] x10(3)/[facility] LABORATORY Lymphocytes % 31.0 % [facility] Lymphocytes Abs 4.4 (H) 0.9 - 3.2 [facility] x10(3)/[facility] LABORATORY Monocytes % 5.6 % [facility] Monocyte Abs 0.8 0.3 - 0.9 [facility] x10(3)/[facility] LABORATORY Eosinophils % 0.1 % [facility] Eosinophils Abs 0.0 0.0 - 0.4 [facility] x10(3)/[facility] LABORATORY Basophils % 0.4 % [facility] Basophils Abs 0.1 0.0 - 0.1 [facility] x10(3)/[facility] LABORATORY Immature Gran % 0.60 % [facility] Comment: Immature granulocytes(IG's)percentage an d absolute count will include metamyelocytes, myelocytes, and promyelo cytes. Blood smears from CBCs yielding IG's will be scanned manually for concor dance. If this scan disagrees with the automated IG or if promyelocytes are not ed, a manual differential will be performed. Madhuri Gran Abs 0.09 (H) 0.00 - 0.04 x10(3)/[facility] LABORATORY Specimen Anatomical Collection Method Collection Time Receive d Time (Source) Location / / Volume Laterality Blood specimen 07/08/2016 5:40 PM 017 5:45 (specimen) EDT PM EDT Resulting Agency Comment Spec In Lab Sangita Robles MD HEMATOLOGY ORDERABLES Performing Organization Address City/State/ZIP Code Phon e Number [place] [id number] LAB[address]ORY [address] (ABNORMAL) Hemogram (07/08/2016 5:40 PM EDT) Analysis Performed At Patho logist Time Signature WBC 14.0 (H) 4.0 - 9.5 [facility] x10(3)/[facility] LABORATORY RBC 5.06 4.58 - [facility] 5.54 [facility] x10(6)/[facility] LABORATORY Hemoglobin 15.1 13.7 - [facility] 16.5 gm/dL [facility] Hematocrit 44.3 40.5 - [facility] 48.5 % [facility] MCV 87.5 82.9 - [facility] 93.1 [facility] LABORATORY MCH 29.8 27.5 - [facility] 32.1 pg [facility] MCHC 34.1 32.0 - [facility] 35.7 gm/dL [facility] Platelets 217 145 - 357 [facility] x10(3)/[facility] LABORATORY RDWSD 42.1 36.0 - [facility] AFIA 45.0 [facility] RDWCV 13.2 11.4 - [facility] AFIA 13.8 % [facility] MPV 11.6 7.6 - 12.9 [facility] LABORATORY nRBC % Auto 0.0 % [facility] nRBC Abs Auto 0.000 0.000 - [facility] 0.000 [facility] x10(3)/[facility] LABORATORY Specimen Anatomical Collection Method Collection Time Receive d Time (Source) Location / / Volume Laterality Blood specimen 07/08/2016 5:40 PM 017 5:45 (specimen) EDT PM EDT Resulting Agency Comment Spec In Lab Sangita Robles MD HEMATOLOGY ORDERABLES Performing Organization Address City/[facility]/ZIP Code Phon e Number [address] (ABNORMAL) TSH (07/08/2016 5:40 PM EDT) P athologist Signature TSH 5.02 (H) 0.27 - 4.20 [facility] AFIA mcIU/mL [facility] Specimen Anatomical Collection Method Collection Time Receive d Time (Source) Location / / Volume Laterality Blood specimen 07/08/2016 5:40 PM 017 5:45 (specimen) EDT PM EDT Resulting Agency Comment Spec In Lab Sangita Robles MD CHEMISTRY ORDERABLES Performing Organization Address City/State/ZIP Code Phon e Number [address] (ABNORMAL) Hepatic Function Panel (07/08/2016 5:40 PM EDT) P athologist Signature Total Protein 7.7 6.1 - 8.0 [facility] AFIA gm/dL [facility] Albumin 4.4 3.2 - 5.2 [facility] AFIA gm/dL [facility] AST 247 (H) 0 - 39 [facility] unit/L [facility] ALT 41 0 - 55 [facility] unit/L [facility] Alk Phos 112 40 - 120 [facility] unit/L [facility] Total 0.3 0.2 - 1.3 [facility] Bilirubin mg/dL [facility] Bili, Direct 0.1 0.0 - 0.3 [facility] AFIA mg/dL [facility] Specimen Anatomical Collection Method Collection Time Receive d Time (Source) Location / / Volume Laterality Blood specimen 07/08/2016 5:40 PM 017 5:45 (specimen) EDT PM EDT Resulting Agency Comment Spec In Lab Sangita Robles MD CHEMISTRY ORDERABLES Performing Organization Address [facility] [place] [address] Prothrombin Time (07/08/2016 5:40 PM EDT) athologist Signature PT 12.9 12.0 - 15.0 [facility] LABORATORY Comment: An INR <2.0 indicates [...] linical circumstances. INR 0.9 0.9 - 1.1 [facility] Specimen Anatomical Collection Method Collection Time Receive d Time (Source) Location / / Volume Laterality Blood specimen 07/08/2016 5:40 PM 017 5:45 (specimen) EDT PM EDT Resulting Agency Comment Spec In Lab Sangita Robles MD HEMATOLOGY ORDERABLES Performing Organization Address [facility] [place] [address] (ABNORMAL) Basic Metabolic Panel (non-fasting) (07/08/2016 5:40 PM EDT) athologist Signature Glucose Lvl 419 (H) 65 - 199 [facility] mg/dL [facility] Comment: Diabetes: >=200 mg/dL plus symp toms BUN 10 10 - 20 mg/dL [facility] Creatinine 0.77 (L) 0.80 - 1.50 mg/dL [facility] Comment: Please note that the pediatric reference intervals supplied above were not validated at [facility]. Results from pediatri c patients should be interpreted in conjunction to the patient's age, height and muscle mass. Sodium 133 (L) 135 - 145 mmol/L [facility] Comment: rechecked by humberto Potassium 4.6 3.5 - 5.0 mmol/L [facility] Comment: Please note: ??Patients with WBC >100,00 0 may have falsely elevated Potassium levels. ??For accurate Potassium quantif ication in these patients send serum separator tube (gold top) for subsequent determinations. ??Contact the Clinical Chemistry Laboratory if there are any qu estions. Chloride 91 (L) 98 - 107 mmol/L [facility] CO2 21 (L) 22 - 31 mmol/L [facility] Anion Gap 21 (H) 5 - 15 mmol/L [facility] Calcium 9.8 8.5 - 10.5 mg/dL [facility] Estimated GFR >60 >=60 [facility] Comment: This estimated GFR (eGFR) [...] the following links into your internet browser. [email or web address] Specimen Anatomical Collection Method Collection Time Receive d Time (Source) Location / / Volume Laterality Blood specimen 07/08/2016 5:40 PM 017 5:45 (specimen) EDT PM EDT Resulting Agency Comment Spec In Lab Sangita Robles MD CHEMISTRY ORDERABLES Performing Organization Address City/State/[place] [address] (ABNORMAL) Cardiac Enzymes (07/08/2016 5:40 PM EDT) P athologist Signature Troponin-T 7.41 (H) <=0.03 [facility] ng/mL [facility] Comment: Called by: humberto, Read [...] consensus document of the Joint Society of Cardiology/[place] College o f Cardiology Committee for the redefinition of myocardial infarction. ? ?Journal of the [place] College of Cardiology 2000; 36: 959-969] CK, Total 3,402 (H) 0 - 200 unit/L [facility] Comment: rechecked by humberto Specimen Anatomical Collection Method Collection Time Receive d Time (Source) Location / / Volume Laterality Blood specimen 07/08/2016 5:40 PM 017 5:45 (specimen) EDT PM EDT Resulting Agency Comment Spec In Lab Sangita Robles MD CHEMISTRY ORDERABLES Performing Organization Address City/State/ZIP Code Phon e Number [place] [id number]OS[address] LAB[address]ORY Drive EKG 12 Lead (07/08/2016 5:35 PM EDT) Component Value Ref Range Test Analysis Performed Pathologis t Method Time At Signature Ventricular rate 77 BPM MUSE SYSTEM Atrial Rate 77 BPM MUSE SYSTEM P-R Interval 150 ms MUSE SYSTEM QRS Duration 88 ms MUSE SYSTEM Q-T Interval 350 ms MUSE SYSTEM QTC Calculated 396 ms MUSE SYSTEM (Bezet) Calculated P Reinbeck 66 degrees MUSE SYSTEM Calculated R Reinbeck 12 degrees MUSE SYSTEM Calculated T Reinbeck 58 degrees MUSE SYSTEM INTERPRETATION Normal sinus [...] Time / Laterality Volume Narrative SHWETA - 07/08/2016 4:45 PM EDT This exam is for storage only and is aut o-finalizing. Griffin Irvin MD IMG FILM LIBRARY ORDERABLES Performing Organization Address City/State/ZIP Code Phon e Number [place], [place] documented in this encounter Visit Diagnoses [...] 0628, Until Tue07/16/16 at 1423, Pain, Routine chlorhexidine (PERIDEX) 0.12 % oral solution Given 9:17 PM EDT 15 mLs 15 mL 15 mL, Oral, EVERY 12 HOURS SCHEDULED (2 times per day), First dose on Tue07/12/16 at 2100, Until Discontinued, [place] teeth, Routine Given 07/15/2016 9:00 AM EDT [...] insulin., Routine fentaNYL 50 mcg/mL multi-dose injection Given 07/08/2016 6:45 PM EDT 25 mcg ONCE PRN, Starting on Tue07/08/16 at 1834, Until Tue07/08/16 at 2011, Intra-Operative (Intra-Procedure), Routine Given 07/08/2016 6:34 PM EDT 25 mcg furosemide (LASIX) injection 20 mg Given 07/15/2016 5:27 PM EDT 20 mg 20 mg, Intravenous, 2 TIMES DAILY, First dose on Tue07/13/16 at 0900, Until Discontinued Given 07/15/2016 9:26 AM EDT 20 mg Given 07/14/2016 6:06 PM EDT 20 mg glipiZIDE (GLUCOTROL) tablet 20 mg Given 07/16/2016 [...] of the active insulin. , Routine insulin lispro (humaLOG) VIAL injection [...] Given 07/14/2016 8:39 AM EDT 60 mg metFORMIN (GLUCOPHAGE) tablet 500 mg Given 07/16/2016 [...] Tue07/16/16 at 2100, Until Discontinu ed, Routine midazolam (PF) (VERSED) 1 mg/mL multi-dose Given 07/08/2016 6:45 PM EDT 1 mg injection ONCE PRN, Starting on Holly 07/08/16 at 1834, Until Tue07/08/16 at 2010, Cath (Intra-Procedure), Routine Given 07/08/2016 6:34 PM EDT 1 mg niCARdipine 0.2 mg/mL (Standard New Bag 07/08/2016 7:30 PM EDT 7.5 mg/hr 37.5 mL/hr Adult and Yoni greater than 20 kg) infusion CONTINUOUS PRN, Starting on Tue07/08/16 at 1930, Until Tue07/08/16 at 2010, Intra-Operative (Intra-Procedure), Routine nicotine (NICODERM CQ) 21 Patch Applied [...] Oral, EVERY 4 HOURS PRN, Starting on 07/12/16 at 1712, Until Tue07/16/16 at 1423, [...] Given 07/15/2016 12:53 PM EDT 5 mLs documented in this encounter Active and Recently Administered Medications Times are shown in EDT. Scheduled Medication Order 07/14/2016 07/15/2016 07/16/2016 acetaminophen (OFIRMEV) injection 1,000 mg (COMPLETED) 0131 (Given - Provider: Hannah M Jason, RN)0700 (Given - Provider: Hannah Gomez RN) [...] AM, Routine atorvastatin (LIPITOR) tablet 80 mg 1812 (Given - Prov ider: Madai Marie, HEAVEN) 1719 (Given - Provider: Mary Fox RN) [...] dose on Tue07/12/16 at 2100, Until Discontinued, [place] teeth, Routine furosemide (LASIX) injection 20 mg 0839 (Given - Provi almita: Maral Kinney RN)1806 (Given - Provider: Madai Marie RN) 0926 (Given - Provider: Mary Fox RN)1727 (Given - Provider: Mary Fox RN) 0900 (Not Given - Provider: Mary Fox RN - Reason: Per MD Order - Comment: Jasmine [place] [employer] REPRESENTATIVE) 20 mg, Intravenous, 2 TIMES DAILY, First [...] lispro (humaLOG) VIAL injection 2-8 Units (CANCELED) 0741 (Given - Provider: Mary Fox RN)1144 [...] parameters not met)0403 (Given - Provider: Sarah Tolentino RN)0738 (Given - Provider: Mary Fox RN) [...] 1816 (New Bag - Provider: Madai Marie, HEAVEN)2019 (Rate/Dose Change - Provider: Luisa Harris RN)2106 (Rate/Dose Change - Provider: Luisa Harris RN)220 (Rate/Dose Change - Provider: Luisa Harris RN) herwise, maintain same rate. Current BG 181 - 220 - If BG is lower than last test, maintain same rate. Otherwise, increase rate by 0.5 units/hour. Current BG 221 - 250 - If BG dropped 30 mg/dL or 2230 (Rate/Dose Change - Provider: Luisa Harris RN)2301 (Rate/Dose Change - Provider: Luisa Harris RN) [...] mg 0839 (G iven - Provider: Maral Kinney, RN) 0627 (Given - Provider: Luisa Harris RN) 0616 (Given - Provider: Sarah Tolentino RN) 60 mg, Oral, EVERY MORNING, First dose o n Tue07/14/16 at 0845, Until Discontinued, DO NOT CRUSH OR OPEN, STAT LORazepam (ATIVAN) injection 0.5 mg (COMPLETED) 0545 ( Given - Provider: Hannah Gomez RN) [...] 500 mg 074 1 (Given - Provider: aMry Fox RN)1720 (Given - Provider: Mary oFx RN) 0737 (Given - Provider: Mary Fox [...] 2100 meTOPROLOL (LOPRESSOR) injection 5 mg (CANCELED) 15 (Given - Provider: Hannah Gomez RN)111 (Not Given - Provider: Maral Kinney RN - Reason: Medication Discontinued) 5 mg, Intravenous, EVERY 6 HOURS, First dose on Tue07/13/16 at 2315, Until Discontinued meTOPROLOL (LOPRESSOR) tablet 12.5 mg (COMPLETED) 0741 (Given - Provider: Mary Fox RN) 12.5 [...] meTOPROLOL tartrate (LOPRESSOR) tablet 50 mg (COMPLETED) 07 (Given - Provider: Mary Fox RN) 50 [...] (K-DUR/KLOR-CON) extended release tablet 40 mEq (COMPLETED) 0925 (Given - Provider: Mary Fox RN) 40 mEq, Oral, ONCE, 1 dose, Tue17 at 0945, 20 mEq tablet may be [...] RN)2117 (Given - Provider: Sarah Tolentino RN) 0618 (Given - Provider: Sarah garcia RN) [...] Gomez RN)0800 (Rate/Dose Verify - Provider: Maral Kinney RN) ater than or equal to 2.0 L/min/M2. Maxi mum volume 2 L. Call powerhouse mechanic for additional fluid orders: pager #[phone]. [phone] (Rate/Dose Verify - Provider: Maral Kinney RN) PRN Medication Order 07/14/2016 07/15/2016 07/16/2016 albuterol (PROVENTIL) nebulizer solution 2.5 mg 2.5 mg, Nebulization, EVERY 2 HOURS PRN, Starting Tue07/13/16 at 2300, Until Tue07/16/16 at 1423, Wheezing, Routine belladonna-opium (B&O SUPPRETTES) 16.2-60 mg suppository 60 mg 60 mg, Rectal, EVERY 8 HOURS PRN, Starti ng Tue 07/13/16 at 0628, Until Tue07/16/16 at 1423, Pain, [...] PRN, S tarting 07/14/16 at 1308, Until Tue07/16/16 at 1423, Wheezing, Routine ondansetron (ZOFRAN) injection [...] 4 hours PRN for pain >/= to 9-02/01. Call provider for new pain management orders if pain not relieved after an appropriate amount of time or if regimen is not t olerated. Hold if patient appears over sedated., Routine potassium chloride 20 mEq in 100 mL (CANCELED) 0851 (G iven - Provider: Maral Kinney, RN) 20 mEq, Intravenous, EVERY 1 HOUR PRN, S tarting 07/12/16 at 1712, Until Tue07/15/16 at 0640, Administer over 60 Minutes, hypokalemia, [...]
Routine documented in this encounter Care Teams Apartment Community Assistant Manager Relationship Specialty Start Date End Date Zay Montilla MD PCP - General Family Medicine 01/31/15 07/20/16 [address] [place] [address] documented as of this encounter
--- OUTSIDE RECORDS SUMMARY | 2021-10-30 01:58 | XMS_ITS | Encounter Summary ---
:1960 [place] [address] Care Team Providers Name Role Phone Zay Montilla MD Primary Care Provider Encounter Details Date Type Department Care Team Description 02/10/2015 Hospital Encounter Vascular Lab at [facility], [place] [address] Social History Tobacco Use Types Packs/Day Years Used Date Current Every Day Smoker Sex Assigned at Date Recorded Not on file documented as of this encounter Medications at Time of Discharge Medication Sig Dispensed Refills Start Date End Date cilostazol (PLETAL) 100 Take 1 tablet by 60 tablet 3 201403/17/2015 mg TabletIndications: PAD mouth 2 times daily (peripheral artery for 30 days. disease) documented as of this encounter Plan of Treatment Not on filedocumented as of this encounter Procedures Procedure Name Priority Date/Time Associated Diagnosis Comme nts REYMUNDO, LEGS, MULTIPLE Routine 02/10/2015 1:17 PM Claudication Re sults for this LEVELS EDT procedure are i n the results section. documented in this encounter Results REYMUNDO, legs, multiple levels (02/10/2015 1:17 PM EDT) Component Value Ref Test Analysis Performed At [facility] Range Method Time Signature VB Text Department: Vascular Surgery Lab [facility] Report Patient: [id number] (OLEG LORENZO) CPT: 93665 ICD10: I73.9 Referring Physician: NARESH Matthews? Indications: Diabetic with claudication; ? arterial disease Diabetes mellitus: Yes ICD10 Diagnosis Code: I73.9 Definitions: REYMUNDO = Ankle / Brachial Systolic Pressure Index, TBI = Toe / Brachial Systolic Pressure Index. All systolic pressures in this study are derived based on Doppler assessment of blood flow. Findings: Right ?Pressure (mm Hg) ?? REYMUNDO ??Waveform ?TBI ?? Brachial Artery ?139 ? Common Femoral Artery ?Biphasic ? Pop Fossa ?Biphasic ? Dorsalis Pedis (Ankle) Arter y ?110 ? 0.70 ??Triphasic ? Posterior Tibial (Ankle) Art rose ??107 ? 0.68 ??Biphasic ? Great Toe ?75 ? 0.47 ?? Left ? Pressure (mm Hg) ?? REYMUNDO ??Waveform ?TBI ?? Brachial Artery ?158 ? Common Femoral Artery ?Triphasic ? Pop Fossa ?Triphasic ? Dorsalis Pedis (Ankle) Arter y ?126 ? 0.80 ??Triphasic ? Posterior Tibial (Ankle) Art rose ??129 ? 0.82 ??Triphasic ? Great Toe ?114 ?0.72 ?? Interpretation: RIGHT: Moderate lower extremity arterial occlusive disease. LEFT: Mild lower extremity arterial occlusive disease. Significant pressure gradient exists between right and left arms. Doppler-derived brachial sys tolic blood pressure: Right = 139 mm Hg; Left = 158 mm Hg. Comparison: ??No previous study in our vascular lab da tabase for comparison. Electronically Signed by: NARESH FERNANDEZ on 2015-02-11 10:58: 58 PM VB Text End of Report [facility] Report Specimen (Source) Anatomical Collection Method Collection Time Re ceived Time Location / / Volume Laterality 02/10/2015 1:17 PM EDT Naresh Fernandez MD VASCULAR ORDERABLES Performing Organization Address City/State/ZIP Code Phon e Number [facility] documented in this encounter Visit Diagnoses Diagnosis Claudication Peripheral vascular disease, unspecified documented in this encounter Care Teams Optometry Assistant Relationship Specialty Start Date End Date Zay Montilla MD PCP - General Family Medicine 01/31/15 07/20/16 [address] [place] [address] documented as of this encounter
--- OUTSIDE RECORDS SUMMARY | 2021-10-30 01:58 | XMS_ITS | Encounter Summary ---
:1960 [place] [address] Care Team Providers Name Role Phone Zay Montilla MD Primary Care Provider Encounter Details Date Type Department Care Team Description 10/28/2015 Hospital Encounter [facility] Lab at [facility] [place] [facility] [place] [id number] Social History Tobacco Use Types Packs/Day Years Used Date Current Every Day Smoker 1 Sex Assigned at Date Recorded Not on file documented as of this encounter Plan of Treatment Not on filedocumented as of this encounter Procedures Procedure Name Priority Date/Time Associated Diagnosis Comme nts REYMUNDO, LEGS, MULTIPLE Routine 10/28/2015 9:25 AM PAD (peripheral Results for this LEVELS EDT artery disease) procedure ar e in the results section. documented in this encounter Results REYMUNDO, legs, multiple levels (10/28/2015 9:25 AM EDT) Component Value Ref Test Analysis Performed At [facility] Range Method Time Signature VB Text Department: Vascular Surgery Lab [facility] Report Patient: [id number] (OLEG LORENZO) CPT: 73251 ICD10: I73.9;I70.213 Referring Physician: NARESH FERNANDEZ ?? Indications: diabetic with claudication, ? change in REYMUNDO Diabetes mellitus: Yes ICD10 Diagnosis Code: I73.9 Findings: Right ?Pressure (mm Hg) ?? REYMUNDO ??Waveform ?? TBI ?? Brachial Artery ?175 ? Dorsalis Pedis (Ankle) Arter y ?137 ? 0.74 ??Biphasic ? Posterior Tibial (Ankle) Art rose ??135 ? 0.73 ??Biphasic ? Great Toe ?92 ?0.50 ?? Left ? Pressure (mm Hg) ?? REYMUNDO ??Waveform ?TBI ?? Brachial Artery ?185 ? Dorsalis Pedis (Ankle) Arter y ?169 ? 0.91 ??Triphasic ? Posterior Tibial (Ankle) Art rose ??174 ? 0.94 ??Triphasic ? Great Toe ?162 ?0.88 ?? Interpretation: RIGHT: Mild lower extremity arterial occ lusive disease. No identifiable change when compared to the previous exam performed on 02/10/2015. LEFT: Mild lower extremity arterial occlusive di sease. No identifiable change when compared to the previous exam performed on 02/10/2015. Previous ABIs with change from previous value: Date ?RIGHT DP ?? RIGHT PT ?? RT GR TOE ??LEFT DP ?LEFT PT ?LT GR TOE ??0.70 ? 0 .68 ? 0.47 ? 0.80 ? 0.82 ? 0.72 Current ? 0.74(+.04) 0.7 3(+.05) 0.50(+.03) 0.91(+.11) 0.94(+.12) 0.88(+.16) Electronically Signed by: NARESH FERNANDEZ on 2015-10-28 10:12: 58 AM VB Text End of Report [facility] Report Specimen (Source) Anatomical Collection Method Collection Time Re ceived Time Location / / Volume Laterality 10/28/2015 9:25 AM EDT Naresh Fernandez MD VASCULAR ORDERABLES Performing Organization Address City/State/ZIP Code Phon e Number [facility] documented in this encounter Visit Diagnoses Diagnosis PAD (peripheral artery disease) Peripheral vascular disease, unspecified documented in this encounter Care Teams Adult Education Teacher Relationship Specialty Start Date End Date Zay Montilla MD PCP - General Family Medicine 01/31/15 07/20/[address] [place] [address] documented as of this encounter
--- OUTSIDE RECORDS SUMMARY | 2021-10-30 01:58 | XMS_ITS | Encounter Summary ---
:1960 Author Organization [facility] [place] [address] Care Team Providers Name Role Phone Zay Montilla MD Primary Care Provider Encounter Details Date Type Department Care Team Description 02/04/2015 Orders Only Vascular Surgery at [facility] [place] Shobha Andrea, Claudication [facility] [place] [address] Social History Tobacco Use Types Packs/Day Years Used Date Never Assessed Sex Assigned at Date Recorded Not on file documented as of this encounter Plan of Treatment Not on filedocumented as of this encounter Results REYMUNDO, legs, multiple levels (02/10/2015 1:17 PM EDT) Component Value Ref Test Analysis Performed At [facility] [employer] Range Method Time Signature VB Text Department: Vascular Surgery Lab [facility] Report Patient: [id number] (OLEG LORENZO) CPT: 64358 ICD10: I73.9 Referring Physician: NARESH FERNANDEZ ?? Indications: Diabetic with claudication; ? arterial disease [...] unspecified documented in this encounter Care Teams Coach Cleaner Relationship Specialty Start Date End Date Zay Montilla MD PCP - General Family Medicine 01/31/15 07/20/[address] [place] [address] documented as of this encounter
--- OUTSIDE RECORDS SUMMARY | 2021-10-30 01:58 | XMS_ITS | Encounter Summary ---
:1960 Author Organization [facility] Address [address] [place] [address] Care Team Providers Name Role Phone Zay Montilla MD Primary Care Provider Encounter Details Date Type Department Care Team Description 07/08/2016 Hospital Encounter [place] [address] Social History Tobacco Use Types Packs/Day [...] 5/16 Route) route 2 times Syringe daily. insulin NPH - insulin Inject 15-25 Units 3 mL 3 201607/16/2017 regular 70/30 subcutaneously 2 times (NOVOLIN MIX 70/30) daily (before meals). Suspension 25 units before breakfast and 15 units before dinner isosorbide Take 1 tablet by mouth 30 tablet 12 07/16/2016 mononitrate (IMDUR) every morning. 60 mg Tablet Sustained Release 24 hr meTOPROLOL tartrate Take 1 tablet by mouth 60 tablet 06/2407/25/2019 (LOPRESSOR) 100 mg 2 times daily. [...] to each nostril twice daily- prescription given).. documented as of this encounter Plan of Treatment Not on filedocumented as of this encounter Procedures Procedure Name Priority Date/Time Associated Diagnosis Comme nts FILM LIBRARY Routine 07/08/2016 12:00 AM Pain Results for this STORAGE ONLY DX EDT procedure ar e in CHEST the results section. documented in this encounter Results Film Library- Storage Only DX Chest (07/08/2016 12:00 AM EDT) Specimen (Source) Anatomical Location Collection Method / Collectio n Time Received Time / Laterality Volume Narrative [facility] [place] - 07/08/2016 4:45 PM EDT This exam is for storage only and is aut o-finalizing. Kiet Irvin MD IMG FILM LIBRARY ORDERABLES Performing Organization Address City/State/ZIP Code Phon e Number [place], [place] documented in this encounter Visit Diagnoses Not on filedocumented in this encounter Care Teams Stock Puller Relationship Specialty Start Date End Date Zay Montilla MD PCP - General Family Medicine 01/31/15 07/20/16 [address] [place] [address] documented as of this encounter
--- OUTSIDE RECORDS SUMMARY | 2021-10-30 01:58 | XMS_ITS | Encounter Summary ---
:1960 Author Organization [facility] [place] [address] Care Team Providers Name Role Phone Zay Montilla MD Primary Care Provider Reason for Visit Reason Comments Claudication Consultation (Routine) - Closed Specialty Diagnoses / Procedures Referred By Contact Refer red To Contact Vascular Surgery Diagnoses claudication, diabetic patient Zay Montilla MD [facility] [address] [place], [place] [address] [place] [address] Phone: Referral ID Status Reason Start Date Expiration Visits Visits Date Requested Authorized [id number] Closed Connection 02/03/2015 02/03/2016 1 1 Center Encounter Details Date Type Department Care Team Description 02/10/2015 Office Visit Vascular Surgery at [facility] PAD (peripheral artery disease); [facility] Subclavian artery stenosis, right [address] [facility] [address] [place] [address] [phone] Social History Tobacco Use Types Packs/Day Years Used Date Current Every Day Smoker Sex Assigned at Date Recorded Not on file documented as of this encounter Last Filed Vital Signs Vital Sign Reading Time Taken Comments Blood Pressure 152/98 02/10/2015 2:11 PM EDT R SIDE Pulse 83 02/10/2015 2:11 PM EDT Temperature - - Respiratory Rate 20 02/10/2015 2:11 PM EDT Oxygen Saturation - - Inhaled Oxygen Concentration - - Weight 84.4 kg (186 lb) 02/10/2015 2:11 PM EDT Height 167.6 cm (5' 6) 02/10/2015 2:11 PM EDT Body Mass Index 30.02 02/10/2015 2:11 PM EDT documented in this encounter Patient Instructions Patient InstructionsZHarry butts MD - 02/16/2015 10:16 AM EDT Do everything possible to quit smoking Daily walking exercise Meticulous foot skin care Clean soft socks and avoid tight or otherwise poorly-fitting shoes Blood pressure should only be measured in the LEFT arm I will ask our nursing staff to call Mr. Berry (and Dr. Montilla's office if needed) to accurately determine his medications. I will also ask our nursing staff to ask if he's having side-effects from cilostazol. If yes, he should reduce dose to 50 mg twice daily Return to clinic in one month to determine effectiveness of medical regiment and discuss whether toproceed with evaluation for intervention. I appreciate being asked to perform this consultation. documented in this encounter Progress Notes Harry Maurice MD - 02/16/2015 8:23 AM EDT Reason for Visit: Dr. Zay Montilla requested a consultation for claudication. History: Oleg Berry is a 54 year-old diabetic smoker with c/o thigh and calf pain when walking. Symptoms have been present for several months and may be worsening slowly. Symptoms resolve whenhe stops walking. Onset is more rapid when walking uphill. He denies ischemic pain, and he has neverhad a diabetic foot ulcer. Dr. Montilla obtained hip films that demonstrated only mild arthritic changes. Atherosclerotic risk factors include a 40 pack-year h/o smoking and he still uses nearly a pack a day. His med list from Dr. Montilla's note lists him as taking Wellbutrin, while our eDH list includes Chantix but no Wellbutrin. He has hyperlipidemia on simvastatin 80 mg daily according to eDH, but atorvastatin [address] Montilla's 01/29/15 clinic note. He is a diabetic on metformin and glipizide. PMH: DM2 Tobacco abuse HLD Mild DJD PSH: Shoulder arthroscopy Meds: Annotated in eDH but will ask staff to resolve discrepancies with Dr. Montilla's recent clinic note. Allergies: Denies ROS: Negative for cardiac or cerebrovascular symptoms. Also negative across 9 other areas. Exam: Alert WM, NAD, 152/98 RIGHT arm, 161/77 LEFT arm, by automatic cuff. HR 83 rrr. Carotid pulsesnormal, no bruits. Radial pulses palpable. Lungs w ronchi. Abd soft, nontender, aorta not readily palpable. Fem pulses palpable bilat, but slightly less robust on the right. I cannot feel his right popliteal pulse, but the left is palpable. I do not detect DP or PT pulses on either lower extremity. Despite relative lack of pulses, his feet are warm and well perfused at rest. No ulcers, no cyanotic organgrenous toes. Motor and sensory exams of the extremities are intact. Vascular Lab Studies today Right Pressure (mm Hg) REYMUNDO Waveform TBI Brachial Artery 139 Common Femoral Artery Biphasic Pop Fossa Biphasic Dorsalis Pedis (Ankle) Artery 110 0.70 Triphasic Posterior Tibial (Ankle) Artery 107 0.68 Biphasic Great Toe 75 0.47 Left Pressure (mm Hg) REYMUNDO Waveform TBI Brachial Artery 158 Common Femoral Artery Triphasic Pop Fossa Triphasic Dorsalis Pedis (Ankle) Artery 126 0.80 Triphasic Posterior Tibial (Ankle) Artery 129 0.82 Triphasic Great Toe 114 0.72 Interpretation: RIGHT: Moderate lower extremity arterial occlusive disease. LEFT: Mild lower extremity arterial occlusive disease. NOTE: Significant pressure gradient exists between right and left arms. Doppler-derived brachial systolic blood pressure: Right = 139 mm Hg; Left = 158 mm Hg. Comparison: No previous study in our vascular lab database for comparison. Impression: A substantial portion of Mr. Berry's lower extremity symptoms can be explained by the presence of peripheral vascular occlusive disease. He does not have critical limb ischemia. Contributors to his symptomatic PVD include tobacco abuse and diabetes. I suspect the distribution of disease is diffuse, but on the right, he may have an iliac lesion that contributes to buttock and thigh pain as well as accounting for his slightly less strong femoral pulse. Treatment options begin with risk factor modification, and we held a long discussion about giving upcigarettes. Mr. Berry expresses interest in the concept, but it is my impression he still does notunderstand that mortality for smoking claudicants is very high and actually more concerning than therisk of limb loss. I explained the ladder of treatment for claudication, starting with risk factor modification, daily walking exercise and a clinical trial of cilostazol. If that approach is unsuccessful or does not result in sufficient relief of symptoms to improve quality of life, a patient may choose to consider percutaneous intervention or bypass surgery. I noted, however, that risk/benefit considerations usually leave bypass surgery in reserve until symptoms become much worse than what he has now. I answered all of his questions. We agreed on a trial of cilostazol, and I ordered the full 100 mg twice a day dose, realizing that I believe he is currently taking Prilosec. When I have our nursing staff call him to clarify which statin he's taking and whether he is now taking Wellbutrin or Chantix as an aid to quit smoking, I will also ask them to inquire about cilostazol side- effects. If he's having any side-effects we should reduce his dose to 50 mg twice daily. Also important, Mr. Berry likely has an innominate or right subclavian artery stenosis resulting in a 10-20 mm HG systolic pressure gradient lower on the right side. Blood pressures measured in the right arm will be lower than central pressure. Accurate blood pressure will only be obtained if measured in the left arm. Recommendations Do everything possible to quit smoking Daily walking exercise Meticulous foot skin care Clean soft socks and avoid tight or otherwise poorly-fitting shoes Blood pressure should only be measured in the LEFT arm I will ask our nursing staff to call Mr. Berry (and Dr. Montilla's office if needed) to accurately determine his medications. I will also ask our nursing staff to ask if he's having side-effects from cilostazol. If yes, he should reduce dose to 50 mg twice daily Return to clinic in one month to assess efficacy of medical approach & determine if he wants usto evaluate for arterial intervention. I appreciate being asked to perform this consultation. Harry Maurice M.D. Section of Vascular Surgery documented in this encounter Plan of Treatment Not on filedocumented as of this encounter Visit Diagnoses Diagnosis PAD (peripheral artery disease) Peripheral vascular disease, unspecified Subclavian artery stenosis, right Atherosclerosis of other specified arter ies documented in this encounter Care Teams Typist Relationship Specialty Start Date End Date Zay Montilla MD PCP - General Family Medicine 01/31/15 07/20/[address] [place] [address] documented as of this encounter
--- OUTSIDE RECORDS SUMMARY | 2021-10-30 01:58 | XMS_ITS | Encounter Summary ---
:1960 Author Organization [facility] [address] Care Team Providers Name Role Phone Zay Montilla MD Primary Care Provider Reason for Visit Reason Comments Other PAD EFFECTIVENESS OF PLETAL Encounter Details Date Type Department Care Team Description 03/17/2015 Office Visit Vascular Surgery at Naresh Fernandez PAD (peripheral artery [facility] MD disease) [facility] [address] [place] VASCULAR SURGERY [id number] [place] [address] [phone] Social History Tobacco Use Types Packs/Day Years Used Date Current Every Day Smoker Sex Assigned at Date Recorded Not on file documented as of this encounter Last Filed Vital Signs Vital Sign Reading Time Taken Comments Blood Pressure 158/87 03/17/2015 3:15 PM EST Pulse 97 03/17/2015 3:15 PM EST Temperature 20 ??C (68 ??F) 03/17/2015 3:15 PM EST Respiratory Rate 18 03/17/2015 3:15 PM EST Oxygen Saturation - - Inhaled Oxygen Concentration - - Weight 83.9 kg (185 lb) 03/17/2015 3:15 PM EST Height 167.6 cm (5' 6) 03/17/2015 3:15 PM EST Body Mass Index 29.86 03/17/2015 3:15 PM EST documented in this encounter Patient Instructions Patient InstructionsZNaresh butts MD - 03/22/2015 10:21 PM EST Reduce cilostazol to 50 mg daily. I renewed his rx at the 50 mg bid dose but told him to cut back Continue to do everything possible to quit smoking Daily walking exercise Meticulous foot skin care Clean soft socks and avoid tight or otherwise poorly-fitting shoes Blood pressure should only be measured in the LEFT arm documented in this encounter Progress Notes Naresh Fernandez MD - 03/17/2015 3:39 PM EST Reason for Visit: PAD with claudication, assess efficacy of cilostazol History: Oleg Lorenzo is a 54 year-old diabetic smoker with RT>LT thigh and calf pain whenwalking. Symptoms present since September 2014. Symptoms resolve when he stops walking. Onset is more rapid when walking uphill. He denies ischemic pain, and he has never had a diabetic foot ulcer. I saw him initially on 02/10/15, and ABIs were 0.70 RIGHT and 0.82 LEFT. After discussing all treatment options we agreed on a course of cilostazol. Since he is on Prilosec, I recommended 50 mg bid. In clinic today he reports doubling of his walking distance, and for that he is very appreciative. However, he believes the cilostazol is making him increasingly fatigued and sleepy. He also has cilostazol related diarrhea, but he feels that is not intolerable. Atherosclerotic risk factors include a 40 pack-year h/o smoking and he still uses nearly a pack a day. He is trying to quit. He has hyperlipidemia on atorvastatin, 40 mg daily based on Dr. Montilla's 01/29/15 clinic note. He is a diabetic on metformin and glipizide. PMH: DM2 Tobacco abuse HLD Mild DJD based on mild arthritic changes in hips on plain films. PSH: Shoulder arthroscopy Meds: Annotated in eDH but will ask staff to resolve discrepancies with Dr. Montilla's recent clinic note. Allergies: Denies ROS: Negative for cardiac or cerebrovascular symptoms. Also negative across 9 other areas. Exam: Alert WM, NAD, 150/87 LEFT arm, HR 97 rrr. Carotid pulses normal, no bruits. Radial pulses palpable. Lungs w [...] perfused at rest. No ulcers, no cyanotic or gangrenous toes. Motor and sensory exams of the extremities are intact. Vascular Lab Studies today: None Impression: Mr. Lorenzo does not have critical limb ischemia, and he has experienced a gratifying reduction in his claudication symptoms. This has been at the ang of substantial side effects. He has been unable to make progress on his tobacco use. I suspect the distribution of arterial disease is diffuse, but on the right, he may have an iliac lesion that contributes to buttock and thigh pain as well as accounting for his slightly less strong femoral pulse. I re-explained the ladder of treatment for claudication, starting with risk factor modification, daily walking exercise and cilostazol. If that approach is unsuccessful or does not result in sufficientrelief of symptoms to improve quality of life, he may choose to consider percutaneous intervention or bypass surgery. I noted, however, that risk/benefit considerations usually leave bypass surgery in reserve until symptoms become much worse than what he has now. I answered all of his questions. We agreed on cilostazol dose reduction to 50 mg once a day, (he still takes Prilosec). If he continues to have side-effects, he will likely choose to d/c this med. Also important, Mr. Lorenzo likely has an innominate or right subclavian artery stenosis resulting in a 10-20 mm HG systolic pressure gradient lower on the right side. Blood pressures measured in the right arm will be lower than central pressure. Accurate blood pressure will only be obtained if measured in the left arm. Recommendations Reduce cilostazol to 50 mg daily. I renewed his rx at the 50 mg bid dose but told him to cut back Continue to do everything possible to quit smoking Daily walking exercise Meticulous foot skin care Clean soft socks and avoid tight or otherwise poorly-fitting shoes Blood pressure should only be measured in the LEFT arm RTC one year with ABIs & Doppler waveforms Naresh Fernandez M.D. Section of Vascular Surgery documented in this encounter Miscellaneous Notes Addendum Note - Lyla Gonzáles RN - 03/24/2015 11:05 AM EST Addended by: LYLA GONZÁLES on: 03/24/2015 11:05 AM Modules accepted: Orders documented in this encounter Plan of Treatment Not on filedocumented as of this encounter Results REYMUNDO, legs, multiple levels (10/28/2015 9:25 AM EDT) Component Value Ref Test Analysis Performed At [facility] Range Method Time Signature VB Text Department: Vascular Surgery Lab VASCUBASE Report Patient: [id number] (OLEG LORENZO) CPT: 57797 ICD10: I73.9;I70.213 Referring Physician: NARESH FERNANDEZ ?? [...] unspecified documented in this encounter Care Teams Order Desk Caller Relationship Specialty Start Date End Date Zay Montilla MD PCP - General Family Medicine 01/31/15 07/20/16 [address] [place] [address] documented as of this encounter
--- OUTSIDE RECORDS SUMMARY | 2021-10-30 02:00 | XMS_ITS | Clinical Summary ---
:1960 Author Organization Address [address] [place] [address] Care Team Providers Name Role Phone Joel Mccarthy MD Primary Care Provider Social History Tobacco Use Types Packs/Day Years Used Date Never Assessed Sex Assigned at Date Recorded Not on file Plan of Treatment Not on file Insurance Payer Benefit Plan / Subscriber ID Effective Dates Phone Addre ss Type Group MEDICARE MEDICARE A/B [id number] 2018-Present [id number] [place] [address] Chapo Berry Personal/Family Self 1960 [id number] (Home) [facility] [phone] [place] ([place]) [place] [address] Chapo Berry Personal/Family Self 1960 [address] (Home) [facility] [phone] [facility] [place] [place] [address] Chapo Berry Personal/Family Self 1960 [address] (Home) [facility] [phone] [facility] ([place] [address] Chpao Berry Personal/Family Self 1960 [phone] [facility] (Home) [facility] [phone] [place], ([place]) [place] [address] Care Teams Inspector [employer]unglasses Relationship Specialty Start Date End Date Joel Mccarthy MD PCP - General 10/16/19
--- OUTSIDE RECORDS SUMMARY | 2021-10-30 02:00 | XMS_ITS | Encounter Summary ---
:1960 Author Organization [facility] Address [address] [place] [address] Care Team Providers Name Role Phone Joel Mccarthy MD Primary Care Provider Encounter Details Date Type Department Care Team Description 10/16/2019 Lab Requisition [facility] Bri Benavidez, Encounter for other Pathology & MD general examination Laboratory Medicine [address] [place], [place] [address] [facility] [id number] [place] [id number] Social History Tobacco Use Types Packs/Day Years Used Date Never Assessed Sex Assigned at Date Recorded Not on file documented as of this encounter Plan of Treatment Not on filedocumented as of this encounter Procedures Procedure Name Priority Date/Time Associated Diagnosis Comme nts SURGICAL PATHOLOGY Today 10/16/2019 7:55 EDT Encounter for o ther Results for this general examination procedur e are in the results section. documented in this encounter Results SURGICAL PATHOLOGY (10/16/2019 7:55 EDT) Final Diagnosis A. COLON, DESCENDING, POLYP, BIOPSY: [facility]ICAL Electronically - Tubular adenoma. CENTER signed by Jareth Lake LABORATORY Aneudy Martin MD on SERVICES 10/17/2019 at 10 36 Attestation By the signature [facility] Electronica lly below, the attending CENTER signed by Jareth Lake, physician certifies LABORATORY Aneudy Martin MD on that they have 1) SERVICES 10/17/2019 at 1036 personally conducted a gross and/or microscopic examination of the described specimen(s), and/or personally interpreted the results of laboratory testing of the described specimen(s), and 2) personally rendered or confirmed the above diagnosis. Clinical History H/O diverticulitis [facility] SERVICES Gross Description A. Received in formalin labe lled with proper patient identification (initials L, C) and descending colon polyp is a ramon-brown tissue (0.4 x 0.3 x 0.2 cm). Submitted in toto in A1. [facility] Nikole Mendoza 10/16/2019 16:02 LABORATO RY SERVICES Scanned Images [facility] SERVICES Specimen Tissue - Colon, Polyp Performing Organization Address City/State/ZIP Code Phon e Number [facility] [address] [place] [address] SERVICES documented in this encounter Visit Diagnoses Diagnosis Encounter for other general examination documented in this encounter Care Teams Warp Spinner Relationship Specialty Start Date End Date Joel Mccarthy MD PCP - General 10/16/19 documented as of this encounter
--- OUTSIDE RECORDS SUMMARY | 2021-10-30 02:00 | XMS_ITS | Encounter Summary ---
:1960 Author Organization [facility] Address [address] [place] [address] Care Team Providers Name Role Phone Jose De Jesus Jackson MD Primary Care Provider Unavailable Encounter Details Date Type Department Care Team Description 07/26/2006 Results Only [facility] - Debo Gonzalez, Chr istopher, conversion DO [address] [facility] [address] [place], [place] [id number] [place] [id number] (Wo rk) Social History Tobacco Use Types Packs/Day Years Used Date Never Assessed Sex Assigned at Date Recorded Not on file documented as of this encounter Plan of Treatment Not on filedocumented as of this encounter Procedures Procedure Name Priority Date/Time Associated Diagnosis Comme nts SURGICAL PATHOLOGY Routine 07/26/2006 0:00 EDT Re sults for this procedure are i n the results section. documented in this encounter Results SURGICAL PATHOLOGY (07/26/2006 0:00 EDT) Pathology Report: SURGICAL PATHOLOGY REPORT [facility] Reports generated via electronic interface contain mauro ginal data; LAB however they are lacking the format of the original re port. Caution should be taken when reading/interpreting unfo rmatted reports. Name: ? ALLISON LORENZO ? Accession #: ? [id number] ? : ? 1960 (Age: 45) ??M ? Collect Date: ? 07/26/2006 ? Location: ? [facility] ? Receive Date: ? 007 ? Provider: OLEG GONZALEZ DO Copy to: JOSE DE JESUS JACKSON MD ? Final Pathologic Diagnosis: ? Colon, sigmoid, resection: 1. ?Diverticular disease. 2. ? Margins of resection are viable. 3. ? Two reactive lymph nodes present (0/2). Document reviewed and electronically signed by: BECCA GILLIS MD Report ??Date: 07/29/2006 17:12 By the signature above, the attending physician certif ies that he/she has personally conducted a gross and/or microscopic examin ation of the described specimens and rendered or confirmed the above diagnosi s. Specimen(s) Received: ? Colon - sigmoid Clinical History: ? Diverticulitis Gross Description: ? Received in formalin labelled Cristina and colon sigmoid is a 15.0 cm in length by 5.0 cm in inner ci rcumference segment of open bowel with both margins stapled closed. The specimen has a moderate amount of pericolonic adipose tissue. The mucosa is light ramon, velvety and folded, a nd sections reveal numerous scattered diverticu la, none of which are perforated or hemorrhagic. The muscularis is moderately thickened and t he colon wall measures up to 1.4 cm in thickness. The serosa is foc ally hyperemic, but is otherwise unremarkable. There are two lymph nodes in the p ericolonic adipose tissue with the largest measuring 1.0 cm in length. Miter Sawyer sections of the speci men are submitted as follows: BLOCK HOLLEY A1, A2 ?Sections taken adjacent to both s tapled margins A3-A6 ?Miter Sawyer diverticula A7, A8 ?Each cassette containing one bise cted lymph node (Ruthann Tinoco ??JT)/jbtobi End of Report Specimen Performing Organization Address City/State/[facility] Code Phon e Number [facility] [address] [place] [address] SERVICES [facility] [address] [place] [address] documented in this encounter Visit Diagnoses Not on filedocumented in this encounter Care Teams Chemistry Associate Relationship Specialty Start Date End Date Jose De Jesus Jackson MD PCP - General 12/26/09 10/15/19 documented as of this encounter
--- OUTSIDE RECORDS SUMMARY | 2021-10-30 02:00 | XMS_ITS | Encounter Summary ---
:1960 Author Organization [facility] Address [address] [place] [address] Care Team Providers Name Role Phone Unavailable Primary Care Provider Unavailable Encounter Details Date Type Department Care Team Description 12/23/2009 Results Only [facility] Oleg Wilcox , Laboratory Services - DO [address] [place], [place] [id number] [place] [id number] [phone] Social History Tobacco Use Types Packs/Day Years Used Date Never Assessed Sex Assigned at Date Recorded Not on file documented as of this encounter Plan of Treatment Not on filedocumented as of this encounter Procedures Procedure Name Priority Date/Time Associated Diagnosis Comme nts SURGICAL PATHOLOGY Routine 12/23/2009 0:00 EDT Re sults for this procedure are i n the results section. documented in this encounter Results SURGICAL PATHOLOGY (12/23/2009 0:00 EDT) Pathology Report: SURGICAL PATHOLOGY REPORT ? [facility] Reports generated via electr [employer] interface contain original data; ? LAB however they are lacking the format of the original report. ? Caution should be taken when reading/interpreting unformatted reports. ? Name: ? MAURA, ALLISON PHER ? Accession #: ? [id number] ? : ? 1960 (Age: 49) ??M ? Collec t Date: ? 12/23/2009 ? Location: ? [facility] ? R eceive Date: ? 12/24/2009 ? Provider: OLEG KNOX SON DO ? Copy to: MONICA JACKSON MD ? Final Pathologic Diagnosis: ? Colon, sigmoid, biops ies: ? - Colonic mucosa with focal surface exudate. ??See comment. ? Comment: ? Histologic sections o f the biopsy show benign mucosa with a focal area of ?? neutrophil collection. ??Thi s finding may represent an area adjacent to an ulcer. Clinical and endoscopic cor relation is suggested. ??(Dr. Clark)/joeln ? Document reviewed and electr onically signed by: ? Yoni Clark MD ? Report ??Date: 12/25/2009 14 :29 ? By the signature above, the attending physician certifies that he/she has ? personally conducted a gross and/or microscopic examination of the described ? specimens and rendered or co nfirmed the above diagnosis. ? Specimen(s) Received: ? Sigmoid bx ? Clinical History: ? H/O recurring diverti culitis ? Gross Description: ? Received in [facility]' s labelled Maura, Christopher and sigmoid biopsy are two pieces of irregular tissue, 0.2 x 0.2 x 0.1 cm and 0.2 x 0.2 x 0.1 cm. ?? The specimen is submitted en tirely in one cassette. (Dr. Troncoso)/mpl ? End of Report ? Specimen Performing Organization Address City/State/ZIP Code Phon e Number [facility] [address] [place] [address] SERVICES [facility] [address] [place] [address] documented in this encounter Visit Diagnoses Not on filedocumented in this encounter
[2021-10-30 13:26] LABS: CREATININE 0.9 mg/dL (0.70-1.30); Calculated LDL 67 mg/dL (<100); Cholesterol 141 mg/dL (<200); HDL Cholesterol 36 mg/dL (40-60); TSH 1.52 uIU/mL (0.36-3.74); Triglyceride 194 mg/dL (<150)
== END 2021-10-30 01:47 | disposition home or self-care (01) ==
LOC: LOS 01:50
PROVIDERS: PCP Nurse Practitioner Family; Visit Provider Nurse Practitioner Family
DX: E78.00 Pure hypercholesterolemia, unspecified (principal); I10 Essential (primary) hypertension
CPT/HCPCS: 36415; 80061; 82565; 84443

== ENCOUNTER 2022-12-13 04:43 | Outpatient (CLI) | payer OTHER, SELFPAY ==
[2022-12-13 12:38] LABS: Potassium 4.1 mmol/L (3.5-5.1); TSH (W/Ref FT4) 6.89 uIU/mL (0.36-3.74)
[2022-12-13 13:03] LABS: FREE T4 1.03 ng/dL (0.76-1.46)
== END 2022-12-13 04:44 | disposition home or self-care (01) ==
LOC: LOS 04:43
PROVIDERS: PCP Nurse Practitioner Family; Visit Provider Nurse Practitioner Family
DX: E03.9 Hypothyroidism, unspecified (principal); I10 Essential (primary) hypertension
CPT/HCPCS: 36415; 82565; 84132; 84439; 84443

== ENCOUNTER 2023-12-20 09:55 | Outpatient (CLI) | payer OTHER, SELFPAY ==
[2023-12-20 10:03] LABS: Calculated LDL 55 mg/dL (<100); Cholesterol 126 mg/dL (<200); Estimated GFR 84.57 (mL/min/1.73m2); HDL Cholesterol 28 mg/dL (40-60); Potassium 4.2 mmol/L (3.5-5.1); Triglyceride 219 mg/dL (<150)
== END 2023-12-20 09:56 | disposition home or self-care (01) ==
LOC: LBO 09:55
PROVIDERS: PCP Nurse Practitioner Family; Visit Provider Nurse Practitioner Family
DX: E03.9 Hypothyroidism, unspecified (principal); I10 Essential (primary) hypertension; E78.00 Pure hypercholesterolemia, unspecified; Z13.220 Encounter for screening for lipoid disorders
CPT/HCPCS: 36415; 80061; 82565; 84132; 84439; 84443

== ENCOUNTER 2024-08-15 13:00 | Emergency (ER) | payer MEDICARE, SELFPAY ==
[2024-08-15 13:05] VITALS: BP 126/76; PULSE 87; RESP 20; TEMP 37; O2SAT 97
--- NOTE | 2024-08-15 13:15 | DI.RAD_ITS ---
Exam(s) XR KNEE LT 4V AP,LAT,ELIZABETH,PAT EXAM: XR KNEE LT 4V AP,LAT,ELIZABETH,PAT CLINICAL HISTORY: L medial knee pain. TECHNIQUE: 2D digital imaging was performed. COMPARISON: No exams were available for comparison FINDINGS: Four views. No evidence of fracture but there does appear to be a joint effusion. There is no joint space narrow ing. No osteochondral defects nor osteophytes. Bone density normal. No osseous lesions. Some vascular calcification the popliteal arteries noted indicating atherosclerotic involvement. The re is also some soft tissue edema anterior to the lower patella and patellar ligament. IMPRESSION: No acute osseous findings. There does appear to be a knee joint effusion and there is also soft tiss ue edema anterior to the lower 3rd of the patella and patellar ligament. DATA REPOSITORY: RADIATION DOSE DELIVERED:
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
[2024-08-15 14:51] VITALS: BP 117/90; PULSE 86; RESP 18; O2SAT 97
== END 2024-08-15 14:51 | disposition home or self-care (01) ==
PROVIDERS: Emergency Provider Nurse Practitioner Family; PCP Nurse Practitioner Family
DX: M25.562 Pain in left knee (principal); M25.462 Effusion, left knee; I25.10 Atherosclerotic heart disease of native coronary artery without angina pectoris; I25.2 Old myocardial infarction; J44.9 Chronic obstructive pulmonary disease, unspecified; E03.9 Hypothyroidism, unspecified; E78.5 Hyperlipidemia, unspecified; I10 Essential (primary) hypertension; E11.40 Type 2 diabetes mellitus with diabetic neuropathy, unspecified; Z95.1 Presence of aortocoronary bypass graft; F17.210 Nicotine dependence, cigarettes, uncomplicated; Z79.82 Long term (current) use of aspirin; Z79.84 Long term (current) use of oral hypoglycemic drugs; Z79.4 Long term (current) use of insulin; Z79.85 Long-term (current) use of injectable non-insulin antidiabetic drugs
CPT/HCPCS: 99283; 73564

== ENCOUNTER → 2024-09-27 07:58 | Outpatient (BNVA) | payer MEDICARE, SELFPAY | PROVIDERS: PCP Nurse Practitioner Family; Referring Provider Nurse Practitioner Family; Visit Provider Podiatrist | DX: E11.621 Type 2 diabetes mellitus with foot ulcer (principal); L97.512 Non-pressure chronic ulcer of other part of right foot with fat layer exposed; E11.40 Type 2 diabetes mellitus with diabetic neuropathy, unspecified; F17.200 Nicotine dependence, unspecified, uncomplicated; I73.89 Other specified peripheral vascular diseases | CPT/HCPCS: 11042 ==

== ENCOUNTER → 2024-10-18 12:52 | Outpatient (BNVA) | payer MEDICARE, SELFPAY | PROVIDERS: PCP Nurse Practitioner Family; Referring Provider Nurse Practitioner Family; Visit Provider Podiatrist | DX: L97.512 Non-pressure chronic ulcer of other part of right foot with fat layer exposed (principal); E11.621 Type 2 diabetes mellitus with foot ulcer; E11.40 Type 2 diabetes mellitus with diabetic neuropathy, unspecified; Z72.0 Tobacco use; I73.89 Other specified peripheral vascular diseases | CPT/HCPCS: 11042 ==

== ENCOUNTER → 2024-11-13 12:56 | Outpatient (BNVA) | payer MEDICARE, SELFPAY | PROVIDERS: PCP Nurse Practitioner Family; Referring Provider Nurse Practitioner Family; Visit Provider Podiatrist | DX: L97.512 Non-pressure chronic ulcer of other part of right foot with fat layer exposed (principal); E11.621 Type 2 diabetes mellitus with foot ulcer; E11.40 Type 2 diabetes mellitus with diabetic neuropathy, unspecified; I73.89 Other specified peripheral vascular diseases; Z72.0 Tobacco use | CPT/HCPCS: 99213 ==

== ENCOUNTER → 2025-02-04 08:28 | Outpatient (BNVA) | payer MEDICARE, SELFPAY | PROVIDERS: PCP Nurse Practitioner Family; Referring Provider Nurse Practitioner Family; Visit Provider Student in an Organized Health Care Education/Training Program | DX: Z12.11 Encounter for screening for malignant neoplasm of colon (principal); Z86.0109 Personal history of other colon polyps | CPT/HCPCS: S0285 ==

== ENCOUNTER 2025-02-14 03:24 | Outpatient (CLI) | payer MEDICARE, SELFPAY ==
[2025-02-14 08:38] LABS: Calculated LDL 56 mg/dL (<100); Cholesterol 131 mg/dL (<200); HDL Cholesterol 31 mg/dL (>or=40); TSH (W/Ref FT4) 5.96 uIU/mL (0.36-3.74); Triglyceride 224 mg/dL (<150)
== END 2025-02-14 03:25 | disposition home or self-care (01) ==
LOC: LBO 03:24
PROVIDERS: PCP Nurse Practitioner Family; Visit Provider Nurse Practitioner Family
DX: E78.5 Hyperlipidemia, unspecified (principal); E03.9 Hypothyroidism, unspecified
CPT/HCPCS: 36415; 80061; 84439; 84443

== ENCOUNTER 2025-02-20 08:18 | Day surgery (SDC) | payer MEDICARE, SELFPAY ==
[2025-02-20 08:43] VITALS: BP 160/85; PULSE 88; RESP 20; TEMP 36.2; O2SAT 99
[2025-02-20] MEDS: Lactated Ringers 1,000 ML 80 ML IV (08:59)
--- NOTE | 2025-02-20 09:23 | W.ANESPRE ---
General Info Date of Service Date Performed: 02/20/25 Height: 5 ft 4 in Weight: 67.4 kg Body Mass Index (BMI): 25.4 Surgical Procedure: Operation Date: 02/20/25 10:20 Proposed Procedure Side Surgeon jasmin Corrales MD Meds Allergies and Home Medications Allergies Allergy/AdvReac Type Severity Reaction Status Date / Time venlafaxine HCl (From AdvReac Intermediate Increased Verified 02/20/25 08:46 Effexor) Blood Pressure Home Medication Medication Instructions Recorded insulin syringes (disposable) 1 mL #500 ea 04/08/21 trazodone 100 mg tablet 100 mg PO QHS PRN sleep #90 tabs 07/01/21 lisinopril 30 mg tablet 30 mg PO DAILY #90 tabs 06/18/24 aspirin 81 mg chewable tablet 81 mg PO DAILY #90 tabs 07/25/24 quetiapine 25 mg tablet (Seroquel) 25 - 50 mg (1 - 2 x 25 mg) PO QHS 07/25/24 #90 tabs carvedilol 12.5 mg tablet See Rx Instructions .Route 08/08/24 .COMPLEX #180 tabs blood sugar diagnostic (Blood #100 ea 08/17/24 Glucose Test strips) blood-glucose meter #1 ea 08/17/24 lancets (Fingerstix Lancets) #100 ea 08/17/24 semaglutide 2 mg/dose (8 mg/3 mL) 2 mg (0.75 mL) subcut QWEEK #9 mL 08/20/24 subcutaneous pen injector atorvastatin 80 mg tablet (Lipitor) 80 mg PO QPM #90 tabs 09/06/24 sertraline 150 mg capsule 150 mg PO DAILY 09/19/24 blood-glucose meter (Accu-Chek #1 ea 11/12/24 Guide [place] Glucose Meter) nitroglycerin 0.4 mg sublingual 0.4 mg sublingual Q5-15M PRN chest 12/19/24 tablet (Nitrostat) pain #20 tabs tramadol 50 mg tablet 50 mg PO TID PRN pain #90 tabs 01/04/25 amitriptyline 10 mg tablet 10 mg PO QHS #90 tabs 02/11/25 aripiprazole 2 mg tablet 2 mg PO DAILY #90 tabs 02/11/25 clopidogrel 75 mg tablet 75 mg PO DAILY #90 tabs 02/11/25 empagliflozin 25 mg tablet 25 mg PO DAILY #90 tabs 02/11/25 (Jardiance) gabapentin 300 mg capsule 300 mg PO TID #270 caps 02/11/25 levothyroxine 75 mcg tablet 75 mcg PO DAILY #90 tabs 02/11/25 metformin 500 mg tablet 1,000 mg (2 x 500 mg) PO BID 02/11/25 diabetes #360 tabs pantoprazole 40 mg tablet,delayed 40 mg PO DAILY #90 tabs 02/11/25 release pen needle, diabetic 31 gauge x #200 ea 02/11/25 5/16 bisacodyl 5 mg tablet,delayed 5 mg PO ONCE #4 tabs 02/15/25 release (Dulcolax (bisacodyl)) polyethylene glycol 3350 17 17 g PO ONCE #238 grams 02/15/25 gram/dose oral powder insulin aspar prot-insulin aspart 24 unit subcut BID PRN 02/18/25 100 unit/mL (70-30) subcutaneous pen Current Visit Medications: Current Medications Generic Name Dose Route Start Last Admin Trade Name Aviva PRN Reason Stop Dose Admin Ringer's Solution 1,000 mls @ 80 mls/hr 02/20/25 06:00 02/20/25 08:59 IV 02/20/25 23:59 80 mls/hr INFUSION JANEEN Administration IV Miscellaneous Supplies 1 each 02/20/25 06:00 Iv Access IV 02/20/25 23:59 DIRECTED JANEEN Sodium Chloride 0 ml 02/20/25 06:00 Normal Saline Flush 10 Ml Syr IV 02/20/25 23:59 PRN PRN Sodium Chloride 0 ml 02/20/25 06:00 Normal Saline 10 Ml Vial IJ 02/20/25 23:59 DIRECTED PRN Sterile Water 0 ml 02/20/25 06:00 Water,Injection,Sterile 10 Ml Vial IJ 02/20/25 23:59 DIRECTED PRN PFSH Active Problems Active Problems: Problem Status Onset Code Diabetic ulcer of left heel Acute E11.621, L97.429 Non-healing ulcer of right foot Acute L97.519 Ulcer of right foot with fat layer exposed Acute L97.512 Diabetic foot ulcer Acute E11.621, L97.509 Diabetic neuropathy Acute E11.40 Hypothyroidism Chronic E03.9 Hypertension Chronic I10 Chronic knee pain Acute M25.569, G89.29 Problem with transportation Acute Adenomatous colon polyp Acute D12.6 Diverticulosis Acute K57.90 Colon polyp Acute K63.5 Atherosclerosis of [place] coronary artery Acute I25.10 Benign prostatic hyperplasia Acute N40.0 Chronic obstructive lung disease Acute 10/11/12 J44.9 DM (diabetes mellitus), type 2, uncontrolled Acute E11.65 Depressive disorder Acute 10/11/12 F32.9 Gastroesophageal reflux disease with esophagitis Acute K21.0 Generalized osteoarthritis Acute 08/20/13 M15.9 Hypercholesterolemia Acute 03/24/02 E78.00 Peripheral vascular disease Acute 02/17/15 I73.9 Sensorineural hearing loss, bilateral Acute 01/21/17 H90.3 Smoker Acute 08/20/13 F17.200 Trochanteric bursitis of right hip Acute M70.61 Trochanteric bursitis of left hip Acute M70.62 Diabetic neuropathy associated with type 2 diabetes mellitus Chronic E11.40 Encounter for screening colonoscopy Acute Z12.11 NSTEMI (non-ST elevation myocardial infarction) Acute I21.4 Medical History Medical History Peripheral neuropathy Kidney stone Diverticulitis of colon (10/11/12) GERD (gastroesophageal reflux disease) MELONIE and COPD overlap syndrome COPD (chronic obstructive pulmonary disease) PVD (peripheral vascular disease) Tobacco abuse Kidney stones History of diverticulitis Depression ASCVD (arteriosclerotic cardiovascular disease) DM type 2 (diabetes mellitus, type 2) Diverticulosis Bipolar 1 disorder, mixed Generalized osteoarthritis BPH (benign prostatic hyperplasia) Surgical History Surgical History History of angioplasty of peripheral vessel Right leg stent placed in groin Right upper thigh stent placed Status post shoulder surgery (09/09/14) Colonoscopy - MAC Colectomy Coronary Artery Bypass [place] (CABG) Arthroscopy, Shoulder 05/08/14; DR. ADAMS; RIGHT Tobacco Smoking/Tobacco Use Status: Current every day Tobacco Type: cigarettes Smoking cigarettes per day: 6 Passive smoking exposure: Yes Second hand exposure: No Alcohol Alcohol Intake: current Alcohol intake frequency: a few times a week Alcohol type: beer Substance Use Substance use: Daily Substance use type: marijuana Details: denies use of marijuana in last 24 hrs, smoked cigarette this AM Vital Signs and Lab Results Vital Signs Most Recent Vital Signs in EMR: Most Recent Vital Signs Temp Pulse Resp BP Pulse Ox 36.2 C L 88 20 160/85 H 99 02/20/25 08:43 02/20/25 08:43 02/20/25 08:43 02/20/25 08:43 02/20/25 08:43 Point of Care Results Point of Care Results: Finger Stick Blood Glucose 125 02/20/25 08:35 Lab Results Thyroid Panel: TSH, (0.36-3.74) 5.96 uIU/mL H 02/14/25, 07:35 Imaging and Studies Imaging and Studies Study information below may be from another EMR and interpreted by another provider. Please see original notes in EMR for more complete details. EKG Summary: 06/22/21: Exam: Resting ECG Reason for Exam: panic attacks, vomiting Patient Location: E HR:78 bpm ECG Measurements Heart Rate 78 AXIS AZ 158 P 65 QRSd 118 QRS 36 QT 427 T107 QTc 486 Conclusion Sinus rhythm...normal P axis, V-rate 60- 99 Probable left atrial enlargement...P >50mS, <-0.10mV V1 Nonspecific intraventricular conduction delay...QRSd >115mS, not LBBB/RBBB Anterior infarct, old...Q >40mS, abnormal ST-T, V2-V5 Nonspecific T abnormalities, lateral leads...T <-0.10mV, I aVL V5 V6 Echocardiogram Summary: 07/27/16: Summary: 1. Left ventricle: The cavity size was normal. Wall thickness was increased in a pattern of mild LVH. Systolic function was at the lower limits of normal. The estimated ejection fraction was 50-55%. Wall motion was normal; there were no regional wall motion abnormalities. 2. Right ventricle: The cavity size was normal. Systolic function was normal. 3. Left atrium: The atrium was mildly dilated. 4. Inferior vena cava: The vessel was normal in size. The respirophasic diameter changes were in the normal range (greater than or equal to 50%), consistent with normal central venous pressure. 5. Pericardium, extracardiac: A trivial pericardial effusion was identified. There was no evidence of hemodynamic compromise. Anesthesia Assessment and Plan Anesthesia History Personal History: No History of Anesthesia Complications Family History: No Family History of Anesthesia Complications Exercise Tolerance Exercise Tolerance: Metabolic Equivalents>4 Cardiac & Pulmonary Exam Cardiac Exam: Normal S1/S2 Heart Sounds Pulmonary Exam: Wheezing Present Implantable Cardiac Device Does patient have a Pacemaker or an ICD?: No Airway Exam Known Difficult Airway: No Mallampati Class: 2 Mouth Opening: Normal (> 3cm) Thyromental Distance: Greater than 3 cm Facial Hair: Full [place] Neck Range of Motion: Full ROM Neck Circumference: Normal Teeth Condition: Generalized Poor Dentition ASA Classification ASA Score: ASA 3 Emergency Case?: No NPO Status NPO Status: NPO Clears >2 hours, Solids >8 hours Anesthesia Plan Resuscitation Status: Full Code Anesthesia Technique: General Anesthesia Airway Planned: Natural Airway Monitors Used: Standard Monitors
[2025-02-20 09:26] VITALS: BMI 25.4
--- NOTE | 2025-02-20 09:48 | BOWEL_PTH ---
PATIENT: Oleg Hitchcock LOC: [facility] U#:[id number] AGE/SX: 64/M ROOM: RE02/20/[address]: Jaymie Corrales : 1960 BED: DIS: 02/20/2025 SPEC #: [id number] RECD: 02/20/25 12:45 STATUS: [place] REQ #: [id number] ROD: 02/20/25 09:[address]: Jaymie Corrales DEPT: Surgical Specimen RECD BY: Yahaira Packer ENTERED: 02/20/25 12:46 SP TYPE: Bowel OTHR DR: Lazarus Lugo, DAVY Tissues: 1 - BIOPSY BOWEL Procedures: GROSS AND MICRO LEVEL 4 Comments: [id number]
--- NOTE | 2025-02-20 10:07 | W.PM.DSUDISC ---
Date of service: 02/20/25 Discharge Plan Disposition Patient Disposition: Home Condition: Good Discharge Details Reason For Visit: History of colon polyps Attending Provider: Jaymie Corrales Primary Care Provider: Lazarus Lugo Recommendations for Follow Up Recommended tests to be ordered by follow up provider: Follow up pathology Home Meds and New Rx's Prescriptions: Continued trazodone 100 mg tablet 100 mg PO QHS PRN (Reason: sleep) Qty: 90 0RF lisinopril 30 mg tablet 30 mg PO DAILY Qty: 90 3RF sertraline 150 mg capsule 150 mg PO DAILY Patient Comments: TAKE ONE CAPSULE BY MOUTH EVERY DAY semaglutide 2 mg/dose (8 mg/3 mL) pen injector 2 mg subcut QWEEK Qty: 9 3RF nitroglycerin [Nitrostat] 0.4 mg tablet, sublingual 0.4 mg SL Q5-15M PRN (Reason: chest pain) Qty: 20 5RF Rx Instructions: until response; do not exceed 3 doses per episode (DME) insulin syringes (disposable) 1 mL syringe See Dose Instructions .ROUTE .MEDSUPPLY Qty: 500 3RF Dose Instruction: As directed Rx Instructions: Twice daily quetiapine [Seroquel] 25 mg tablet 25 - 50 mg PO QHS Qty: 90 3RF aspirin 81 mg tablet,chewable 81 mg PO DAILY Qty: 90 3RF carvedilol 12.5 mg tablet See Rx Instructions .ROUTE .COMPLEX Qty: 180 3RF Dose Instruction: TAKE ONE TABLET BY MOUTH TWICE A DAY, MUST ADMINISTER WITH A PAM/FOOD Rx Instructions: TAKE ONE TABLET BY MOUTH TWICE A DAY, MUST ADMINISTER WITH A PAM/FOOD (DME) Blood Glucose Test Strip See Dose Instructions .ROUTE .MEDSUPPLY Qty: 100 3RF Dose Instruction: As directed Rx Instructions: twice daily ( ONE TOUCH ULTRA BLUE) (DME) blood-glucose meter Kit See Dose Instructions .ROUTE .MEDSUPPLY Qty: 1 0RF Dose Instruction: As directed Rx Instructions: twice daily (one touch ultra blue) (DME) lancets [Fingerstix Lancets] Misc See Dose Instructions .ROUTE .MEDSUPPLY Qty: 100 1RF Dose Instruction: As directed Rx Instructions: twice daily (one touch ultra blue) atorvastatin [Lipitor] 80 mg tablet 80 mg PO QPM Qty: 90 3RF (DME) blood-glucose meter [Accu-Chek Guide [place] Glucose Mtr] [facility] [place] See Rx Instructions .ROUTE .MEDSUPPLY Qty: 1 0RF Patient Comments: USE TO TEST TWO TIMES A DAY Rx Instructions: As directed tramadol 50 mg tablet 50 mg PO TID PRN (Reason: pain) Qty: 90 2RF gabapentin 300 mg capsule 300 mg PO TID Qty: 270 3RF aripiprazole 2 mg tablet 2 mg PO DAILY Qty: 90 3RF amitriptyline 10 mg tablet 10 mg PO QHS Qty: 90 3RF clopidogrel 75 mg tablet 75 mg PO DAILY Qty: 90 3RF Jardiance 25 mg tablet 25 mg PO DAILY Qty: 90 3RF levothyroxine 75 mcg tablet 75 mcg PO DAILY Qty: 90 3RF Patient Comments: PT states the dose has been increased to 1 full tablet metformin 500 mg tablet 1,000 mg PO BID Qty: 360 3RF pantoprazole 40 mg tablet,delayed release (DR/EC) 40 mg PO DAILY Qty: 90 3RF (DME) pen needle, diabetic 31 gauge x 5/16 needle See Rx Instructions .ROUTE .COMPLEX Qty: 200 3RF Dose Instruction: USE WITH INSULIN TWICE A DAY Rx Instructions: USE WITH INSULIN TWICE A DAY insulin asp prt-insulin aspart 100 unit/mL (70-30) insulin pen 24 unit subcut BID PRN Discontinued bisacodyl [Dulcolax (bisacodyl)] 5 mg tablet,delayed release (DR/EC) 5 mg PO ONCE Qty: 4 0RF Rx Instructions: Take per colonoscopy instructions provided by ordering providers office polyethylene glycol 3350 17 gram/dose powder 17 g PO ONCE Qty: 238 0RF Rx Instructions: Take per colonoscopy instructions provided by ordering providers office Discharge Instructions Instructions: Diverticulosis Additional Instructions: Your colonoscopy went well today. The prep was poor so portions of the colon were unable to be visualized. You did have evidence of diverticulosis or small outpouchings throughout the colon. There was one polyp that was removed and sent to pathology. We will contact you once this pathology returns with results. Due to the poor quality of the prep the recommendation is that you have a repeat colonoscopy in 1 yr. Please contact the general surgery office if you have further questions or concerns. 1. If tolerated, consume a soft, low fiber diet for 1-2 days. 2[address] Do not drive, drink alcohol, operate machinery, make critical decisions, or do activities that require coordination or balance for 24 hours. 3. Because air was put into your colon during the procedure, expelling air from your rectum (passing gas or farting) is normal. 4. You may not have a bowel movement for 1-3 days because of the colonoscopy prep. This is normal. 5. Go directly to the emergency room if you notice any of the following: Develop chills (warm to touch), or if you have a thermometer and your temperature is above 101 Difficulty breathing or difficultly swallowing Persistent vomiting Severe abdominal pain, other than gas cramps Severe chest pain Black, tarry stools Any bleeding – exceeding one tablespoon 6. Call your physician if the site where your intravenous was started becomes red, swollen, painful, and warm to touch. 7. Your physician has reviewed your pre-procedure medications. Please continue to take those medications as previously ordered. You will be given specific information/education regarding any changes to your medications before leaving.n Activity:: Activity as Tolerated Diet:: As Tolerated Discharge Orders Discharge Orders: Discharge Order (Routine); Ordered 02/20/25 Ordered By: Jaymie Corrales
--- NOTE | 2025-02-20 10:12 | COLE_ITS ---
Date of service: 02/20/25 Time of Service: 10:12 Colonoscopy Report Date of procedure: 02/20/25 Pre-op diagnosis general: Personal history of colon polyps Post-op diagnosis procedure note: same Procedure: Colonoscopy with polypectomy Surgeon: Jaymie Corrales Anesthesia Type: General:No Airway Estimated blood loss (mL): 1 Pathology: other (Polyp at 70cm ) Complications: None Disposition: PACU Indications: Patient is a 64 yo male who presents for a repeat colonoscopy due to a personal history of polyps. Prep: Miralax/Dulcolax Procedure Start Time: 09:38 Procedure End Time: 09:57 Retraction Time: 14 Findings: Poor prep throughout the colon with some solid and copious liquid stool. Evidence of pandiverticulosis. One small polyp at 70cm removed with cold forceps. Procedure Description: The patient was brought to the endoscopy suite and placed in the left lateral decubitus position. After induction of IV sedation, a digital rectal exam was performed.. Digital exam was normal. The colonoscope was then passed to the cecu m without difficulty. Cecal intubation was confirmed by the identification of the appendiceal orifice and the ileocecal valve. Upon withdrawing the colonoscope, all mucosal surfaces were inspected. The prep was noted to be poor throughout the colon with some solid and copious liquid stool. At 70cm there was a small polyp, which was removed using cold forceps in its entirety. Specimen was retrieved for pathological analysis. There was evidence of diverticulosis throughout the entire colon. There was no other evidence of mucosal abnormality, polyp or cancer but portions of the colon were obscured due to poor prep. Retroflexion in the rectum was unremarkable. The patient tolerated the procedure well with no complications. Postoperatively, the patient was transferred to the recovery room in stable condition. [place] Bowel Prep [place] Bowel Prep Right Colon: 2 Left Colon: 1 Transverse Colon: 1 Total Score: 4
[2025-02-20 10:14] VITALS: BP 122/84; PULSE 78; RESP 16; TEMP 36.3; O2SAT 95
--- NOTE | 2025-02-20 10:20 | W.ANESPOSTOP ---
Postoperative Evaluation Date, Time and Location Date Performed: 02/20/25 Time Performed: 10:20 Patient Location: Day Surgery Unit Vital Signs Most Recent Imported Vital Signs: Most Recent Vital Signs Temp Pulse Resp BP Pulse Ox 36.3 C L 78 16 122/84 95 02/20/25 10:14 02/20/25 10:14 02/20/25 10:14 02/20/25 10:14 02/20/25 10:14 Pain Score Most Recent Pain Score: Most Recent Pain Score Pain Level 0 02/20/25 10:14 Assessment Mental Status: Awake (Alert & Oriented to Patient Baseline) Airway and Respiratory Function: Patent airway with normal (patient baseline) respiratory exam Cardiovascular Function: Hemodynamically Stable Hydration Status: Adequately Hydrated Nausea & Vomiting: No Nausea or Vomiting Pain: Pt. Denies Any Pain Peripheral Nerve Block: Patient did not receive a nerve block
[2025-02-20 10:30] VITALS: BP 143/59; PULSE 74; RESP 16; TEMP 36.3; O2SAT 100
== END 2025-02-20 10:43 | disposition home or self-care (01) ==
PROVIDERS: PCP Nurse Practitioner Family; Visit Provider Student in an Organized Health Care Education/Training Program
PROC: 0DJD8ZZ Inspection of Lower Intestinal Tract, Via Natural or Artificial Opening Endoscopic (ICD-10-PCS; CPT 45378; principal; 2025-02-20 10:15)
DX: Z12.11 Encounter for screening for malignant neoplasm of colon (principal); D12.4 Benign neoplasm of descending colon; K57.30 Diverticulosis of large intestine without perforation or abscess without bleeding
CPT/HCPCS: 45380; 88305; J1805; J2003; J2704

== ENCOUNTER 2025-03-01 08:47 | Outpatient (CLI) | payer MEDICARE, SELFPAY ==
[2025-03-01 14:11] LABS: ALT 22 U/L (16-63); AST 10 U/L (15-37); Albumin 3.7 g/dL (3.4-5.0); Alkaline Phosphatase 90 U/L (46-116); Anion Gap 12.5 mmol/L (3-11); BUN 12 mg/dL (7-18); Bilirubin, Total 0.3 mg/dL (0.2-1.0); CO2 27.5 mmol/L (21.0-32.0); Calcium 9.1 mg/dL (8.5-10.1); Chloride 104 mmol/L (98-107); Glucose 116 mg/dL (74-106); Potassium 3.8 mmol/L (3.5-5.1); Sodium 144 mmol/L (136-145); Total Protein 7.9 g/dL (6.4-8.2)
[2025-03-01 16:21] LABS: Microalb ug/mg Crea 64.7 ug/mg Cr
== END 2025-03-01 08:48 | disposition home or self-care (01) ==
LOC: LOS 08:47
PROVIDERS: PCP Nurse Practitioner Family; Visit Provider Family Medicine
DX: E11.9 Type 2 diabetes mellitus without complications (principal); E11.40 Type 2 diabetes mellitus with diabetic neuropathy, unspecified
CPT/HCPCS: 36415; 80053; 82043; 82570